=== PATIENT | female | born 1950 | race Hispanic/Latino ===

== ENCOUNTER 2018-05-06 21:05 | Inpatient (IN) | payer MEDICARE, OTHER ==
[2018-05-06] MEDS ORDERED: FENTANYL CITR 100 MCG/2 ML ONE (21:36)
[2018-05-06] MEDS ORDERED: ONDANSETRON 4 MG/2 ML VIAL ONE (21:36)
[2018-05-06] MEDS ORDERED: FAMOTIDINE 20 MG/2 ML VIAL IV ONE (21:36)
[2018-05-06 21:39] LABS: Absolute Lymphocytes (CBC) 3.8 K/uL (0.7-4.9); Absolute Monocytes 1.3 K/uL (0.1-1.3); Absolute Neutrophil 11.5 K/uL (1.8-8.0); Basophils % 0.6 % (0-1.3); Eosinophils % 1.9 % (0-4.4); Hematocrit 42.6 % (36.0-45.0); Lymphocytes % 22.5 % (15.3-44.8); MCH 35.8 pg (27.0-35.0); MCV 104.3 fL (80-100); MPV 8.8 fL (7.6-11.3); Monocytes % 7.3 % (3.3-12.3); RBC Red Blood Cell Count 4.08 M/uL (3.86-4.86)
[2018-05-06 21:45] LABS: Protime INR 1.02
[2018-05-06 22:01] LABS: ALT/SGPT 40 U/L (12-78); AST/SGOT 46 U/L (15-37); Albumin 3.4 g/dL (3.4-5.0); Alkaline Phosphatase 109 U/L (45-117); BUN Blood Urea Nitrogen 8 mg/dL (7-18); Bicarbonate 27 mmol/L (21-32); Bilirubin Direct 0.2 mg/dL (0-0.2); Bilirubin Total 0.6 mg/dL (0.2-1.0); CKMB Creatine Kinase MB < 1.0 ng/mL (0.3-3.6); Creatine Phosphokinase 20 U/L (26-192); Glucose Level 265 mg/dL (74-106); Lipase 94 U/L (73-393); Magnesium 2.1 mg/dL (1.8-2.4); NT PRO-BNP 57 pg/mL (<125); Potassium 3.9 mmol/L (3.5-5.1); Sodium Level 134 mmol/L (136-145)
[2018-05-06 22:17] LABS: Urine Blood TRACE (NEG); Urine Glucose 1+ (NEG); Urine Protein TRACE (NEG); Urine Specific Gravity >1.030 (1.005-1.030); Urine pH 5.5 (5.0-7.0)
[2018-05-06] MEDS ORDERED: CEFTRIAXONE/SWI 1gm 1 GM/10 ML SYR ONE (22:21)
--- NOTE | 2018-05-07 01:39 | EDPHYS ---
Physician Documentation [facility] Name: Ivet Calderon Age: 67 yrs Sex: Female : 1950 Arrival Date: 05/06/2018 Time: 21:09 Bed 23 Private MD: Jatinder Dallas E ED Physician Shankar Forbes HPI: 05/06 21:22 This 67 yrs old Female presents to ER via Ambulatory with complaints of demetri Abdominal Pain. 21:22 The patient presents with abdominal pain in the epigastric area, in the upper abdomen, demetri abdominal distention in the upper abdomen. Onset: The symptoms/episode began/occurred just prior to arrival. The symptoms radiate to the right flank. Associated signs and symptoms: none. The symptoms are described as sharp. Modifying factors: The symptoms are alleviated by nothing, the symptoms are aggravated by movement, touching the area. Severity of pain: At its worst the pain was moderate in the emergency department the pain is unchanged. The patient has not experienced similar symptoms in the past. Historical: - Allergies: 21:20 No Known Allergies; ak1 - Home Meds: 21:20 aspirin 81 mg Oral chew 1 tab once daily [Active]; Lopressor 50 mg Oral tab 1 tab once ak1 daily [Active]; metformin 500 mg Oral tab 1 tab 2 times per day [Active]; Plavix Oral [Active]; - PMHx: 21:20 Diabetes - NIDDM; Hypertension; ak1 - PSHx: 21:20 None; ak1 - Immunization history:: Adult Immunizations unknown. - Social history:: Smoking status: Patient/guardian denies using tobacco. - Ebola Screening: : No symptoms or risks identified at this time. - Family history:: not pertinent. ROS: 21:22 Constitutional: Negative for fever, chills, and weight loss, Eyes: Negative for injury, demetri pain, redness, and discharge, ENT: Negative for injury, pain, and discharge, Neck: Negative for injury, pain, and swelling, Cardiovascular: Negative for chest pain, palpitations, and edema, Respiratory: Negative for shortness of breath, cough, wheezing, and pleuritic chest pain, Back: Negative for injury and pain, : Negative for injury, bleeding, discharge, and swelling, MS/Extremity: Negative for injury and deformity, Skin: Negative for injury, rash, and discoloration, Neuro: Negative for headache, weakness, numbness, tingling, and seizure, Psych: Negative for depression, anxiety, suicide ideation, homicidal ideation, and hallucinations, Allergy/Immunology: Negative for hives, rash, and allergies, Endocrine: Negative for neck swelling, polydipsia, polyuria, polyphagia, and marked weight changes, Hematologic/Lymphatic: Negative for swollen nodes, abnormal bleeding, and unusual bruising. 21:22 Abdomen/GI: Positive for abdominal pain, nausea, of the epigastric area, posterior aspect of right lateral abdomen and right upper quadrant. Exam: 21:22 Constitutional: This is a well developed, well nourished patient who is awake, alert, demetri and in no acute distress. Head/Face: Normocephalic, atraumatic. Eyes: Pupils equal round and reactive to light, extra-ocular motions intact. Lids and lashes normal. Conjunctiva and sclera are non-icteric and not injected. Cornea within normal limits. Periorbital areas with no swelling, redness, or edema. ENT: Nares patent. No nasal discharge, no septal abnormalities noted. Tympanic membranes are normal and external auditory canals are clear. Oropharynx with no redness, swelling, or masses, exudates, or evidence of obstruction, uvula midline. Mucous membranes moist. Neck: Trachea midline, no thyromegaly or masses palpated, and no cervical lymphadenopathy. Supple, full range of motion without nuchal rigidity, or vertebral point tenderness. No Meningismus. Chest/axilla: Normal chest wall appearance and motion. Nontender with no deformity. No lesions are appreciated. Cardiovascular: Regular rate and rhythm with a normal S1 and S2. No gallops, murmurs, or rubs. Normal PMI, no JVD. No pulse deficits. Respiratory: Lungs have equal breath sounds bilaterally, clear to auscultation and percussion. No rales, rhonchi or wheezes noted. No increased work of breathing, no retractions or nasal flaring. Back: No spinal tenderness. No costovertebral tenderness. Full range of motion. Female : Normal external genitalia. Skin: Warm, dry with normal turgor. Normal color with no rashes, no lesions, and no evidence of cellulitis. MS/ Extremity: Pulses equal, no cyanosis. Neurovascular intact. Full, normal range of motion. Neuro: Awake and alert, GCS 15, oriented to person, place, time, and situation. Cranial nerves II-XII grossly intact. Motor strength 5/5 in all extremities. Sensory grossly intact. Cerebellar exam normal. Normal gait. Psych: Awake, alert, with orientation to person, place and time. Behavior, mood, and affect are within normal limits. 21:22 Abdomen/GI: Inspection: abdomen appears normal, Bowel sounds: normal, Palpation: moderate abdominal tenderness, in the epigastric area and right upper quadrant, Liver: no appreciated palpable abnormalities, Hernia: not appreciated. Vital Signs: 21:18 BP 168 / 101; Pulse 109; Resp 18; Pulse Ox 97% on R/A; Weight 75.3 kg (R); Height 5 ft. ak1 1 in. (154.94 cm) (R); Pain 10/10; 21:20 Temp 98.3(O); kr2 22:24 BP 158 / 70; Pulse 80; Resp 17; Pulse Ox 95% on R/A; kr2 22:43 BP 171 / 65; Pulse 79; Resp 22 S; Pulse Ox 92% on R/A; kr2 23:45 BP 169 / 76; Pulse 82; Resp 19; Pulse Ox 97% on 2 lpm NC; kr2 05/07 00:38 BP 148 / 67; Pulse 82; Resp 21; Pulse Ox 97% on 2 lpm NC; kr2 01:31 BP 116 / 96; Pulse 82; Resp 20; Pulse Ox 97% on R/A; rv 02:31 BP 164 / 69; Pulse 79; Resp 20; Pulse Ox 97% on R/A; rv 03:03 BP 132 / 61; Pulse 79; Resp 20; Pulse Ox 91% on R/A; rv 03:56 BP 127 / 56; Pulse 89; Resp 16 S; Temp 97.9(O); Pulse Ox 97% on R/A; Pain 10/10; bb 05/06 21:18 Body Mass Index 31.37 (75.30 kg, 154.94 cm) ak1 05/06 22:43 Placed on oxygen \T\ 2 LPM via NC, saturation increased to 96%, notified provider kr2 Jason Coma Score: 05/07 03:56 Eye Response: spontaneous(4). Verbal Response: oriented(5). Motor Response: obeys bb commands(6). Total: 15. MDM: 05/06 21:15 Patient medically screened. [facility] 21:25 Data reviewed: vital signs, nurses notes, lab test result(s), EKG, radiologic studies, [facility] CT scan, plain films. 05/07 01:33 Counseling: I had a detailed discussion with the patient and/or guardian regarding: the pm1 historical points, exam findings, and any diagnostic results supporting the discharge/admit diagnosis, lab results, radiology results, the need for further work-up and treatment in the hospital. 01:33 Refusal of service: The patient/guardian displays adequate decision making capability pm1 and despite a detailed discussion of alternatives, benefits, risks, and consequences refuses: Admission to the hospital for further work-up and treatment, Patient does not want to stay in the hospital because her pain is better and she has a 19 yo grandson that depends on her to drive him to and from work. She wants to go home and follow up with her doctor. 02:00 ED course: Patient went to the restroom and started having her epigastric and RUQ pain pm1 return. Patient with diarrhea bowel movement. Consistent with radiology report favoring enteritis. Patient would like to stay in the hospital now versus being discharged. 02:19 Data interpreted: Pulse oximetry: on room air is 97 %. Interpretation: normal. pm1 05/06 21:21 Order name: Basic Metabolic Panel; Complete Time: 22:11 [facility] 05/06 21:21 Order name: CBC with Diff; Complete Time: 21:45 [facility] 05/06 21:21 Order name: Ckmb; Complete Time: 22:11 [facility] 05/06 21:21 Order name: CPK; Complete Time: 22:11 [facility] 05/06 21:21 Order name: LFT's; Complete Time: 22:11 [facility] 05/06 21:21 Order name: Magnesium; Complete Time: 22:11 [facility] 05/06 21:21 Order name: NT PRO-BNP; Complete Time: 22:11 [facility] 05/06 21:21 Order name: PT-INR; Complete Time: 22:11 [facility] 05/06 21:21 Order name: Ptt, Activated; Complete Time: 22:11 [facility] 05/06 21:21 Order name: Troponin (emerg Dept Use Only); Complete Time: 22:11 [facility] 05/06 21:21 Order name: XRAY Chest (1 view) [facility] 05/06 21:21 Order name: Lipase; Complete Time: 22:11 [facility] 05/06 21:52 Order name: Urine Culture [facility] 05/06 21:54 Order name: Urine Dipstick--Ancillary (enter results); Complete Time: 22:18 tn 05/06 21:21 Order name: EKG; Complete Time: 21:22 [facility] 05/06 21:21 Order name: Cardiac monitoring; Complete Time: 21:54 [facility] 05/06 21:21 Order name: EKG - Nurse/Tech; Complete Time: 22:05 [facility] 05/06 21:21 Order name: US Abdomen Limited [facility] 05/06 21:21 Order name: CT Abd/Pelvis - W/Contrast [facility] 05/06 21:21 Order name: IV Saline Lock; Complete Time: 21:54 [facility] 05/06 21:21 Order name: Labs collected and sent; Complete Time: 21:54 [facility] 05/06 21:21 Order name: O2 Per Protocol; Complete Time: 21:54 [facility] 05/06 21:21 Order name: O2 Sat Monitoring; Complete Time: 21:54 [facility] 05/06 21:21 Order name: Urine Dipstick-Ancillary (obtain specimen); Complete Time: 21:54 [facility] 05/07 02:24 Order name: NPO; Complete Time: 02:26 pm1 Administered Medications: 05/06 21:44 Drug: Pepcid 20 mg Route: IVP; Site: right antecubital; kr2 22:39 Follow up: Response: No adverse reaction kr2 21:45 Drug: Zofran 4 mg Route: IVP; Site: right antecubital; kr2 22:39 Follow up: Response: No adverse reaction kr2 21:47 Drug: fentaNYL (PF) 25 mcg Route: IVP; Site: right antecubital; kr2 22:06 Follow up: Response: No adverse reaction; Pain is unchanged, physician notified kr2 22:05 Drug: fentaNYL (PF) 25 mcg Route: IVP; Site: right antecubital; kr2 22:39 Follow up: Response: No adverse reaction; Pain is decreased kr2 22:22 Drug: Rocephin - (cefTRIAXone) 1 grams Route: IVPB; Infused Over: 30 mins; Site: right kr2 antecubital; 22:46 Follow up: Response: No adverse reaction; IV Status: Completed infusion kr2 22:47 Drug: fentaNYL (PF) 25 mcg Route: IVP; Site: right antecubital; kr2 23:00 Follow up: Response: No adverse reaction; Pain is decreased kr2 05/07 02:30 Follow up: Response: No adverse reaction; Pain is decreased rv 01:54 Drug: NS 0.9% 1000 ml Route: IV; Rate: 1 bolus; Site: right antecubital; rv 02:30 Follow up: IV Status: Completed infusion rv 02:05 Drug: fentaNYL (PF) 25 mcg Route: IVP; Site: right antecubital; rv 02:16 Follow up: Response: No adverse reaction rv 02:19 Drug: Zofran 4 mg Route: IVP; Site: right antecubital; rv 02:30 Follow up: Response: No adverse reaction rv 02:20 CANCELLED (Duplicate Order): Zofran 4 mg IVP once; over 2 minutes rv 02:30 Drug: Flagyl 500 mg Volume: 100 ml; Route: IVPB; Rate: 200 ml/hr; Infused Over: 30 rv mins; Site: right antecubital; 03:00 Follow up: IV Status: Completed infusion; IV Intake: 100ml bb Disposition: 07:01 Co-signature as Attending Physician, Shankar Forbes MD I agree with the assessment and demetri plan of care. Disposition: 05/07/18 02:22 Hospitalization ordered by Jesus Simeon for Observation. Preliminary diagnosis are Cholelithiasis, Other abdominal pain - intractable, Enteritis. - Bed requested for Telemetry/MedSurg (observation). - Status is Observation. bb - Condition is Stable. - Problem is new. - Symptoms have improved. UTI on Admission? No Signatures: Dispatcher [employer] EDOK Anabela Felipe RN RN mw Anderson, Corey, MD MD cha Ballard, Brenda, RN RN bb Roselyn Delarosa RN RN ak1 Roderick Brady, CONTINUOUS IMPROVEMENT CONSULTANT CONTINUOUS IMPROVEMENT CONSULTANT pm1 Hyun Mcclain RN RN kr2 Ruiz Stockton RN RN rv Corrections: (The following items were deleted from the chart) 02:01 01:38 05/07/2018 01:38 Discharged to Home. Impression: Cholelithiasis; Enteritis; pm1 Urinary tract infection, site not specified. Condition is Stable. Forms are Medication Reconciliation Form, Thank You Letter, Antibiotic Education, Prescription Opioid Use. Follow up: Emergency Department; When: As needed; Reason: Worsening of condition. Follow up: Peter Gay; When: 1 - 2 days; Reason: Recheck today's complaints, Continuance of care, Re-evaluation by your physician. Follow up: Saúl Arroyo; When: 1 - 2 days; Reason: Recheck today's complaints, Continuance of care, Re-evaluation by your physician. Problem is new. Symptoms have improved. pm1 02:20 02:19 Zofran 4 mg IVP once; over 2 minutes ordered. pm1 rv 02:35 02:22 Hospitalization Ordered by Jesus Simeon MD for Observation. Preliminary mw diagnosis is Cholelithiasis; Other abdominal pain - intractable; Enteritis. Bed requested for Telemetry/MedSurg (observation). Status is Observation. Condition is Stable. Problem is new. Symptoms have improved. UTI on Admission? No. pm1 04:31 02:35 05/07/2018 02:22 Hospitalization Ordered by Jesus Simeon MD for Observation. bb Preliminary diagnosis is Cholelithiasis; Other abdominal pain - intractable; Enteritis. Bed requested for Telemetry/MedSurg (observation). Status is Observation. Condition is Stable. Problem is new. Symptoms have improved. UTI on Admission? No. mw
--- NOTE | 2018-05-07 01:39 | ER ---
Nurse's Notes [facility] Name: Ivet Calderon Age: 67 yrs Sex: Female : 1950 Arrival Date: 05/06/2018 Time: 21:09 Bed 23 Private MD: Jatinder Dallas E Diagnosis: Cholelithiasis;Other abdominal pain-intractable;Enteritis Presentation: 05/06 21:18 Presenting complaint: Patient states: sharp pain to upper abd started at 1800. pt c/o ak1 back pain. Transition of care: patient was not received from another setting of care. Onset of symptoms was May 06, 2018. Risk Assessment: Do you want to hurt yourself or someone else? Patient reports no desire to harm self or others. Care prior to arrival: None. 21:18 Method Of Arrival: Ambulatory ak1 21:18 Acuity: DORYS 3 ak1 21:20 Initial Sepsis Screen: Does the patient meet any 2 criteria? No. Patient's initial kr2 sepsis screen is negative. Does the patient have a suspected source of infection? No. Patient's initial sepsis screen is negative. Triage Assessment: 21:20 General: Appears uncomfortable, Behavior is cooperative, crying. Pain: Complains of ak1 pain in right upper quadrant and left upper quadrant. Historical: - Allergies: 21:20 No Known Allergies; ak1 - Home Meds: 21:20 aspirin 81 mg Oral chew 1 tab once daily [Active]; Lopressor 50 mg Oral tab 1 tab once ak1 daily [Active]; metformin 500 mg Oral tab 1 tab 2 times per day [Active]; Plavix Oral [Active]; - PMHx: 21:20 Diabetes - NIDDM; Hypertension; ak1 - PSHx: 21:20 None; ak1 - Immunization history:: Adult Immunizations unknown. - Social history:: Smoking status: Patient/guardian denies using tobacco. - Ebola Screening: : No symptoms or risks identified at this time. - Family history:: not pertinent. Screenin:20 Abuse screen: Denies threats or abuse. Denies injuries from another. Nutritional kr2 screening: No deficits noted. Tuberculosis screening: No symptoms or risk factors identified. Fall Risk IV access (20 points). Assessment: 21:20 General: Appears distressed, uncomfortable, well groomed, well developed, well kr2 nourished, Behavior is anxious, crying. Pain: Complains of pain in right upper quadrant Pain radiates to posterior aspect of right lateral abdomen and anterior aspect of right lateral abdomen Pain currently is 10 out of 10 on a pain scale. Quality of pain is described as sharp, shooting, Pain began 4 hours ago. Is continuous, Alleviated by nothing. Neuro: Level of Consciousness is awake, alert, obeys commands, Oriented to person, place, time, situation, Appropriate for age. Cardiovascular: Capillary refill < 3 seconds in bilateral fingers Patient's skin is warm and dry. Respiratory: Airway is patent Respiratory effort is even, unlabored, Respiratory pattern is regular, symmetrical. GI: Patient currently denies diarrhea, vomiting. GI: Abdomen is round non-distended, Bowel sounds present X 4 quads. Abd is soft X 4 quads Abdomen is tender to palpation in epigastric area and right upper quadrant. : Denies burning with urination. EENT: Oral mucosa is moist. Derm: Skin is intact, is healthy with good turgor, Skin is pink, warm \\T\\ dry. Musculoskeletal: Circulation, motion, and sensation intact. 22:22 Reassessment: Patient appears in no apparent distress at this time. Patient and/or kr2 family updated on plan of care and expected duration. Pain level reassessed. Patient states pain has decreased. States, "I am a big believer in horoscopes and mine said that this was going to fall ill and that it would have something to do with my kidneys". 23:45 Reassessment: Patient appears in no apparent distress at this time. Patient and/or kr2 family updated on plan of care and expected duration. Pain level reassessed. Patient is alert, oriented x 3, equal unlabored respirations, skin warm/dry/pink. Patient returned from CT at this time Patient states symptoms have improved. 05/07 00:38 Reassessment: Patient appears in no apparent distress at this time. Patient sleeping at kr2 this time. 02:33 Reassessment: Patient appears in no apparent distress at this time. Patient and/or rv family updated on plan of care and expected duration. Pain level reassessed. Patient is alert, oriented x 3, equal unlabored respirations, skin warm/dry/pink. awaiting admitting orders from dr Soria. 03:54 Reassessment: pt appears to be sleeping, eyes closed, resp unlabored, arouses easily bb and is A\\T\\O x 4, pt c/o upper abdominal pain will notify provider, pt awaiting admit orders for transfer to room 219. IV intact and patent. Vital Signs: 05/06 21:18 BP 168 / 101; Pulse 109; Resp 18; Pulse Ox 97% on R/A; Weight 75.3 kg (R); Height 5 ft. ak1 1 in. (154.94 cm) (R); Pain 10/10; 21:20 Temp 98.3(O); kr2 22:24 BP 158 / 70; Pulse 80; Resp 17; Pulse Ox 95% on R/A; kr2 22:43 BP 171 / 65; Pulse 79; Resp 22 S; Pulse Ox 92% on R/A; kr2 23:45 BP 169 / 76; Pulse 82; Resp 19; Pulse Ox 97% on 2 lpm NC; kr2 05/07 00:38 BP 148 / 67; Pulse 82; Resp 21; Pulse Ox 97% on 2 lpm NC; kr2 01:31 BP 116 / 96; Pulse 82; Resp 20; Pulse Ox 97% on R/A; rv 02:31 BP 164 / 69; Pulse 79; Resp 20; Pulse Ox 97% on R/A; rv 03:03 BP 132 / 61; Pulse 79; Resp 20; Pulse Ox 91% on R/A; rv 03:56 BP 127 / 56; Pulse 89; Resp 16 S; Temp 97.9(O); Pulse Ox 97% on R/A; Pain 10/10; bb 05/06 21:18 Body Mass Index 31.37 (75.30 kg, 154.94 cm) ak1 05/06 22:43 Placed on oxygen \\T\\ 2 LPM via NC, saturation increased to 96%, notified provider kr2 Vitals: 23:00 Cardiac Rhythm Assessment Sinus rhythm. kr2 05/07 00:44 Cardiac Rhythm Assessment Sinus rhythm. kr2 Jason Coma Score: 03:56 Eye Response: spontaneous(4). Verbal Response: oriented(5). Motor Response: obeys bb commands(6). Total: 15. ED Course: 05/06 21:09 Patient arrived in ED. es 21:09 Jatinder Dallas MD is Private Physician. es 21:15 Shankar Forbes MD is Attending Physician. demetri 21:19 Triage completed. ak1 21:20 Arm band placed on Patient placed in an exam room, on a stretcher, on pulse oximetry, ak1 Patient notified of wait time. 21:20 Patient has correct armband on for positive identification. Placed in gown. Bed in low kr2 position. Call light in reach. Side rails up X2. proced tech on. Pulse ox on. NIBP on. Door closed. Warm blanket given. Head of bed elevated. 21:25 Inserted saline lock: 20 gauge in right antecubital area, using aseptic technique. kr2 Blood collected. 21:29 Hyun Mcclain, JOSE is Primary Nurse. kr2 21:40 X-ray completed. Portable x-ray completed in exam room. Patient tolerated procedure ag1 well. 21:41 XRAY Chest (1 view) In Process Unspecified. EDMS 21:45 Urine collected: clean catch specimen, roselyn colored. kr2 21:54 US Abdomen Limited In Process Unspecified. EDMS 22:03 EKG done, by ED staff, reviewed by Shankar Forbes MD. kr2 22:15 Roderick Brady, JESSIE is PHCP. pm1 23:[address] via stretcher. eh 23:38 CT completed. Patient tolerated procedure well. Patient moved back from CT. eh 23:38 CT Abd/Pelvis - W/Contrast In Process Unspecified. EDMS 05/07 01:36 Peter Gay MD is Referral Physician. pm1 01:36 Saúl Arroyo MD is Referral Physician. pm1 02:19 Shankar Forbes MD is Hospitalizing Provider. pm1 02:20 Jesus Simeon MD is Hospitalizing Provider. pm1 03:56 No provider procedures requiring assistance completed. Patient admitted, IV remains in bb place. Administered Medications: 05/06 21:44 Drug: Pepcid 20 mg Route: IVP; Site: right antecubital; kr2 22:39 Follow up: Response: No adverse reaction kr2 21:45 Drug: Zofran 4 mg Route: IVP; Site: right antecubital; kr2 22:39 Follow up: Response: No adverse reaction kr2 21:47 Drug: fentaNYL (PF) 25 mcg Route: IVP; Site: right antecubital; kr2 22:06 Follow up: Response: No adverse reaction; Pain is unchanged, physician notified kr2 22:05 Drug: fentaNYL (PF) 25 mcg Route: IVP; Site: right antecubital; kr2 22:39 Follow up: Response: No adverse reaction; Pain is decreased kr2 22:22 Drug: Rocephin - (cefTRIAXone) 1 grams Route: IVPB; Infused Over: 30 mins; Site: right kr2 antecubital; 22:46 Follow up: Response: No adverse reaction; IV Status: Completed infusion kr2 22:47 Drug: fentaNYL (PF) 25 mcg Route: IVP; Site: right antecubital; kr2 23:00 Follow up: Response: No adverse reaction; Pain is decreased kr2 05/07 02:30 Follow up: Response: No adverse reaction; Pain is decreased rv 01:54 Drug: NS 0.9% 1000 ml Route: IV; Rate: 1 bolus; Site: right antecubital; rv 02:30 Follow up: IV Status: Completed infusion rv 02:05 Drug: fentaNYL (PF) 25 mcg Route: IVP; Site: right antecubital; rv 02:16 Follow up: Response: No adverse reaction rv 02:19 Drug: Zofran 4 mg Route: IVP; Site: right antecubital; rv 02:30 Follow up: Response: No adverse reaction rv 02:20 CANCELLED (Duplicate Order): Zofran 4 mg IVP once; over 2 minutes rv 02:30 Drug: Flagyl 500 mg Volume: 100 ml; Route: IVPB; Rate: 200 ml/hr; Infused Over: 30 rv mins; Site: right antecubital; 03:00 Follow up: IV Status: Completed infusion; IV Intake: 100ml bb Intake: 03:00 IV: 100ml; Total: 100ml. bb Outcome: 01:38 Discharge ordered by MD. pm1 02:22 Decision to Hospitalize by Provider. pm1 03:57 Condition: stable bb 03:57 Instructed on the need for admit. 04:31 Patient left the ED. bb Signatures: Dispatcher [employer] Shankar Marin MD MD cha Salyer, Edna es Hagler, Ervin eh Ballard, Brenda, RN RN Roselyn Bermudez RN RN [email or web address] Carly [email or web address] Roderick Brady JESSIE RACK PULLER pm1 Hyun Mcclain, RN RN kr2 Ruiz Stockton, RN RN rv Corrections: (The following items were deleted from the chart) 05/06 22: 21:20 Pain: Complains of pain in right upper quadrant Pain radiates to posterior aspect kr2 of right lateral abdomen and anterior aspect of right lateral abdomen kr2 : 21:20 GI: Abdomen is round non-distended, Bowel sounds present X 4 quads. Abd is soft X kr2 4 quads Abdomen is tender to palpation in epigastric area and right upper quadrant kr2
[2018-05-07] MEDS ORDERED: NA CHLORIDE 0.9% 1,000 ML ONE (01:53)
[2018-05-07] MEDS ORDERED: FENTANYL CITR 100 MCG/2 ML ONE (02:07)
[2018-05-07] MEDS ORDERED: ONDANSETRON 4 MG/2 ML VIAL ONE (02:21)
[2018-05-07] MEDS ORDERED: METRONIDAZOLE 500mg IVPB 500 MG/100 ML BAG IV ONE (02:31)
--- NOTE | 2018-05-07 03:52 | P.HP ---
Certification for Inpatient Patient admitted to: Inpatient With expected LOS: >2 Midnights Practitioner: I am a practitioner with admitting privileges, knowledge of patient current condition, hospital course, and medical plan of care. Services: Services provided to patient in accordance with Admission requirements found in Title 42 Section 412.3 of the Code of Federal Regulations Patient History Date of Service: 05/07/18 Reason for admission: enteritis History of Present Illness: Ms Calderon is a 67 years old woman with history of HTN, DM II, who came to ED complaining of abdominal pain. Her pain started last afternoon, 10/10 of intensity, diffuse, but localized over LLQ at my physical exam, however, previously she was focus her pain in her epigastrium and RUQ. She has had nausea but not vomiting, also diarrhea. No fever or chills. Lab work remarkable for leukocytosis 17K, UA abnormal consistent with UTI. CT abd/pelvis report enteritis, and cholelitiasis. Allergies No Known Drug Allergies Allergy (Verified 10/26/16 11:28) Unknown No Known Allergies Allergy (Uncoded 12/15/16 12:01) Unknown Home medications list reviewed: Yes Home Medications: Lisinopril 1 tab PO BID 08/21/16 Metformin ER [Glucophage ER*] 1 tab PO BID 08/21/16 Tizanidine HCl 2 mg PO BID PRN 08/21/16 Aspirin [Adult Low Dose Aspirin EC] 81 mg PO DAILY 09/29/16 Metoprolol Tartrate [Lopressor*] 50 mg PO DAILY 09/29/16 Atorvastatin Calcium [Lipitor] 40 mg PO BEDTIME #30 tab 10/03/16 Clopidogrel Bisulfate [Plavix*] 75 mg PO DAILY #30 tablet 10/03/16 - Past Medical/Surgical History Diabetic: Yes -: HTN -: DIABETES -: Tubal Ligation - Family History Family History: Reviewed- Non-Contributory - Social History Smoking Status: Never smoker Alcohol use: No CD- Drugs: No Caffeine use: No Place of Residence: Home Review of Systems 10-point ROS is otherwise unremarkable Physical Examination - Physical Exam General: Alert, In no apparent distress HEENT: Atraumatic, PERRLA, Mucous membr. moist/pink, EOMI, Sclerae nonicteric Neck: Supple, 2+ carotid pulse no bruit, No LAD, Without JVD or thyroid abnormality Respiratory: Clear to auscultation bilaterally, Normal air movement Cardiovascular: Regular rate/rhythm, Normal S1 S2 Gastrointestinal: Normal bowel sounds, Tenderness (left lower quadrant) Musculoskeletal: No tenderness Integumentary: No rashes Neurological: Normal speech, Normal strength at 5/5 x4 extr, Normal tone, Normal affect Lymphatics: No axilla or inguinal lymphadenopathy - Studies Laboratory Data (last 24 hrs) 05/06/18 21:25: PT 12.0, INR 1.02, APTT 26.2 05/06/18 21:25: WBC 17.0 H, Hgb 14.6, Hct 42.6, Plt Count 284 05/06/18 21:25: Sodium 134 L, Potassium 3.9, BUN 8, Creatinine 0.90, Glucose 265 H, Magnesium 2.1, Total Bilirubin 0.6, AST 46 H, ALT 40, Alkaline Phosphatase 109, Lipase 94 Assessment and Plan - Problems (Diagnosis) (1) Enteritis Current Visit: Yes Status: Acute (2) Abdominal pain Onset Date: 02/25/15 Current Visit: No Status: Acute Qualifiers: Abdominal location: generalized Qualified Code(s): R10.84 - Generalized abdominal pain (3) Cholelithiasis Onset Date: 02/25/15 Current Visit: No Status: Acute Qualifiers: Cholelithiasis location: gallbladder Cholecystitis presence: without cholecystitis Biliary obstruction: without biliary obstruction Qualified Code(s): K80.20 - Calculus of gallbladder without cholecystitis without obstruction (4) Diabetes mellitus Onset Date: 10/01/16 Current Visit: No Status: Acute Qualifiers: Diabetes mellitus type: type 2 Diabetes mellitus adjunct faculty for medical 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 She has also cholelithiasis, but no signs of obstruction. UA is abnormal consistent with UTI, will start empiric IV Cipro and Flagyl. Urine and blood culture in process. - Advance Directives Does patient have a Living Will: No Does patient have a Durable POA for Healthcare: No - Code Status/Comfort Care Code Status Assessed: Yes Code Status: Full Code
[2018-05-07] MEDS ORDERED: ONDANSETRON 4 MG/2 ML VIAL IV PRN (04:02)
[2018-05-07] MEDS: NA CHLORIDE 0.9% 1,000 ML IV SCH ×2 (04:25→14:31)
[2018-05-07 05:04] VITALS: BMI 31.4
[2018-05-07] MEDS ORDERED: PNEUMOCOCCAL VACCINE 0.5 ML IMVAC ONE (06:00)
[2018-05-07] MEDS ORDERED: D50W 25 GM/50 ML SYRINGE IV PRN (06:13)
[2018-05-07] MEDS ORDERED: GLUCAGON 1 MG/VIAL IM PRN (06:13)
[2018-05-07] MEDS: INSULIN -REGULAR HUMAN 50 UNIT/0.5 ML ML SQ SCH ×3 (06:27→18:00)
--- NOTE | 2018-05-07 07:16 | RAD REPORT ---
EXAM DESCRIPTION: RAD - Chest Single View - 05/06/2018 9:43 pm CLINICAL HISTORY: Back pain, upper abdominal pain, abdominal distention COMPARISON: October 2017 TECHNIQUE: AP portable chest image was obtained 2134 hours . FINDINGS: Low lung volumes accentuate heart, vasculature and lung markings. No focal lung parenchyma l process seen. No significant failure or volume overload. Trachea is midline. Heart and vasculature are normal. No measurable pleural effusion and no pneumotho rax. No gross bony abnormality seen. No acute aortic findings suspected. IMPRESSION: No acute cardiopulmonary process. Low lung volumes accentuate lung markings. Minimal interstitial edema or infiltrate could be masked.
--- NOTE | 2018-05-07 07:17 | RAD REPORT ---
EXAM DESCRIPTION: US - Abdomen Exam Limited - 05/06/2018 9:56 pm CLINICAL HISTORY: Abdominal pain COMPARISON: None. FINDINGS: Gallbladder size is normal. No gallstones, wall thickening or pericholecystic fluid. Commo n bile duct is normal with no common duct stone identified. The liver and spleen show no suspicious f indings. The pancreas is normal. No hydronephrosis or suspicious mass in either kidney Aorta is normal is size. No ascites or bulky lymphadenopathy. IMPRESSION: Normal abdominal ultrasound.
[2018-05-07] MEDS: METRONIDAZOLE 500mg IVPB 500 MG/100 ML BAG IV SCH ×2 (08:39→16:42)
[2018-05-07] MEDS: CIPROFLOXACIN 400mg IV 400 MG/200 ML BAG IV SCH ×2 (08:40→20:37)
--- NOTE | 2018-05-07 08:53 | RAD REPORT ---
EXAM DESCRIPTION: CT - Abdomen Pelvis W Contrast - 05/07/2018 2:42 am CLINICAL HISTORY: Abdominal pain, periumbilical pain, prior cholecystectomy. A preliminary written report was provided at the time of the study, and the report was reviewed prio r to final dictation. COMPARISON: CT study February 2015 TECHNIQUE: Biphasic, helical CT imaging of the abdomen and pelvis was performed following 100 ml non -ionic IV contrast. Oral contrast was given. All CT scans are performed using dose optimization technique as appropriate and may include automated exposure control or mA/KV adjustment according to patient size. FINDINGS: No suspicious findings in the lung bases. No pericardial thickening or effusion. Liver shows a mild diffuse fatty infiltration pattern. A small cyst is present subcapsular right lobe . This is not clearly different from 2014. No splenic or pancreatic acute finding. Gallbladder is par tially contracted. There are probably small gallstones near the neck. Gallstones have been seen on th is patient. Acute gallbladder process is doubtful. No biliary tree dilatation. Symmetric renal function is seen with no hydronephrosis or suspicious renal mass. No pyelonephritis o r acute renal parenchymal process. Partially filled urinary bladder shows no suspicious finding. Uter us and ovaries show no suspicious findings. Pelvic floor laxity is present. No gastric dilatation or gastric wall thickening. Duodenum and proximal jejunum show no suspicious fi ndings. Distal ileum is decompressed. Most of the ileum in the right lower quadrant is mildly dilated . There is a significant amount of fecalized small bowel content. A definitive mass or transition poi nt is not identified. There is some wall thickening in the midportion of the small bowel. No free air or pneumatosis. Small quantity of free fluid is present. No hernia, mass or bulky lympha denopathy. No adrenal abnormality. No suspicious bony findings. IMPRESSION: Dilated small bowel loops in the right lower quadrant with fecalized bowel content. Ther e is wall thickening in the proximal to midportion of the ileum. Distal ileum is decompressed. No free air, abscess or surgically emergent finding. Early mechanical small bowel obstruction is not excluded. However, the patient does not have any surg ical history that might trigger adhesions or internal hernia. A prominent infectious enteritis causin g small bowel dilatation is possible. Incidental cholelithiasis. Gallbladder is not absent as indicated in the history. No acute biliary tr ee dilatation or acute pancreatic process.
[2018-05-07] MEDS ORDERED: KCL 20 MEQ/100 mL IVPB 20 MEQ/100 ML BAG IV SCH (09:00)
--- NOTE | 2018-05-07 10:29 | EKG ---
Test Date: 2018-05-06 Test Time: 21:56:46 Forestry Consultant: MALA MEASUREMENT RESULTS: Intervals: Rate: 86 VA: 144 QRSD: 78 QT: 380 QTc: 454 [place]: P: 51 VA: 144 QRS: 62 T: 48 INTERPRETIVE STATEMENTS: Sinus rhythm with occasional premature ventricular complexes Otherwise normal ECG Compared to ECG 09/30/2016 06:21:56 Ventricular premature complex(es) now present Electronically Signed On 05-07-18 10:28:07 CDT by Eric Kingston
--- NOTE | 2018-05-07 12:19 | P.PN ---
Subjective Date of Service: 05/07/18 Chief Complaint: enteritis diffuse abd pain more on left side, states that her abd was bloating before she came Physical Examination - Vital Signs Temperature: 97.9 F Blood Pressure: 134/64 Pulse: 71 Respirations: 18 Pulse Ox (%): 95 - Physical Exam General: Alert, In no apparent distress HEENT: Atraumatic, PERRLA, EOMI Neck: Supple, JVD not distended Respiratory: Clear to auscultation bilaterally, Normal air movement Cardiovascular: Regular rate/rhythm, Normal S1 S2 Gastrointestinal: Tenderness (diffusely) Musculoskeletal: No tenderness Integumentary: No rashes Neurological: Normal speech, Normal tone, Normal affect Lymphatics: No axilla or inguinal lymphadenopathy - Studies Laboratory Data (last 24 hrs) 05/06/18 21:25: PT 12.0, INR 1.02, APTT 26.2 05/06/18 21:25: WBC 17.0 H, Hgb 14.6, Hct 42.6, Plt Count 284 05/06/18 21:25: Sodium 134 L, Potassium 3.9, BUN 8, Creatinine 0.90, Glucose 265 H, Magnesium 2.1, Total Bilirubin 0.6, AST 46 H, ALT 40, Alkaline Phosphatase 109, Lipase 94 Medications List Reviewed: Yes Assessment And Plan - Current Problems (Diagnosis) (1) Small bowel obstruction Onset Date: 02/28/15 Current Visit: Yes Status: Acute (2) Enteritis Onset Date: 05/07/18 Current Visit: Yes Status: Acute (3) Abdominal pain Onset Date: 05/07/18 Current Visit: Yes Status: Acute Qualifiers: Abdominal location: generalized Qualified Code(s): R10.84 - Generalized abdominal pain (4) Cholelithiasis Onset Date: 05/07/18 Current Visit: Yes Status: Chronic Qualifiers: Cholelithiasis location: gallbladder Cholecystitis presence: without cholecystitis Biliary obstruction: without biliary obstruction Qualified Code(s): K80.20 - Calculus of gallbladder without cholecystitis without obstruction (5) Diabetes mellitus Onset Date: 10/01/16 Current Visit: No Status: Acute Qualifiers: Diabetes mellitus type: type 2 Diabetes mellitus residential insulin use: without keno terminal operator use Diabetes mellitus complication status: with unspecified complications Qualified Code(s): E11.8 - Type 2 diabetes mellitus with unspecified complications (6) Hypertension Onset Date: 10/01/16 Current Visit: No Status: Acute Qualifiers: Hypertension type: essential hypertension Qualified Code(s): I10 - Essential (primary) hypertension - Plan --Cont IVF --NPO --Cont IV ABX --Cons Surgery RE: possible SBO
[2018-05-07] MEDS ORDERED: MORPHINE 4 MG/ML SYR IV PRN (13:04)
[2018-05-07] MEDS: ACETAMINOPHEN 500 MG TAB PO PRN (15:25)
--- NOTE | 2018-05-07 15:51 | CON ---
Date of Consultation: 05/07/2018 Diagnosis: Abdominal pain. History Of Present Illness: This is the case of a female, who has been having abdominal pain since a bout 48 hours of duration mainly in the mid abdomen, associated with nausea and vomiting. This happe akshat after she ate some corn. She says she has been having this pain on and off. Her dad used to hav e pain on and off and was in the hospital with abdominal pain and what he had. She denies any dysuria, hematuria, hematochezia, or melena. Denies any recent traveling out of the country. D enies any family member sick at home. The patient was advised the importance of colonoscopies and alex brasher does remember having one done. Allergies: NONE. Medications: Include lisinopril, metformin, aspirin, metoprolol, Plavix and Lipitor. Past Medical History: Includes diabetes and hypertension. Past Surgical History: Include tubal ligation. Social History: She does not smoke. She does not drink alcohol. Review of Systems: Constitutional: Denies any fever. Respiratory: Denies any shortness of breath. Gastrointestinal: As above. The patient denies any melena and hematochezia, any history of Crohn di sease, ulcer, or colitis. Once again, she was advised about colonoscopy. Genitourinary: Denies any dysuria, hematuria. Physical Examination: General: The patient is awake, alert. HEENT: Pupils are equal and reactive, anicteric. Neck: Supple. Chest: Clear. Abdomen: Mid abdominal tenderness. She says she felt a lot better this morning after she had some b owel movement and diarrhea and then she has been like that better for 4 hours and now starting to hav e some discomfort. She is passing flatus. Extremities: Good capillary refill. Rectal: Deferred. Laboratory Data: Blood work shows WBC count of 17 with hemoglobin of 14.6, platelets of 284, INR of 1.02, glucose 265. Abdominal ultrasound per Dr. Carson, normal with no stone or thickening or peric holecystic fluid. Imaging: CAT scan of abdomen and pelvis interpreted by Dr. Carson as enteritis versus early bowel o bstruction versus and inflammatory bowel disease cannot be ruled out. Assessment: This is a 67-year-old patient, with enteritis of unknown origin. She has a family histo ry of chronic abdominal pain, intestinal disease diagnosed. She is not sure if they have inflammator y bowel disease or not. From the surgical standpoint it looked like she is starting to pass and have bowel movement and passing gas. So this may be just relieving. The etiology of it at this moment i s unknown. We suggest patient to have a hazardous waste material technician consult. MAC Voice ID: [id number] Report ID: [id number]
[2018-05-08] MEDS: METRONIDAZOLE 500mg IVPB 500 MG/100 ML BAG IV SCH ×3 (01:06→18:13)
[2018-05-08] MEDS: NA CHLORIDE 0.9% 1,000 ML IV SCH ×4 (01:06→20:02)
[2018-05-08] MEDS: ACETAMINOPHEN 500 MG TAB PO PRN (04:30)
[2018-05-08 05:19] LABS: Absolute Lymphocytes (CBC) 2.6 K/uL (0.7-4.9); Absolute Monocytes 0.7 K/uL (0.1-1.3); Absolute Neutrophil 4.2 K/uL (1.8-8.0); Basophils % 0.4 % (0-1.3); Eosinophils % 7.3 % (0-4.4); Hematocrit 37.7 % (36.0-45.0); Lymphocytes % 32.3 % (15.3-44.8); MCH 36.1 pg (27.0-35.0); MCV 106.1 fL (80-100); MPV 8.9 fL (7.6-11.3); RBC Red Blood Cell Count 3.55 M/uL (3.86-4.86)
[2018-05-08] MEDS: INSULIN -REGULAR HUMAN 50 UNIT/0.5 ML ML SQ SCH ×4 (05:50→18:00)
[2018-05-08 05:53] LABS: BUN Blood Urea Nitrogen 5 mg/dL (7-18); Bicarbonate 26 mmol/L (21-32); Glucose Level 190 mg/dL (74-106); Potassium 3.9 mmol/L (3.5-5.1); Sodium Level 143 mmol/L (136-145)
[2018-05-08 06:20] LABS: Blood Morphology Comment NOTED (NOT SEEN); Macrocytosis 1+; Platelet Estimate ADEQ; Urine White Blood Cell Casts OK
[2018-05-08] MEDS ORDERED: KCL 20 MEQ/100 mL IVPB 20 MEQ/100 ML BAG IV SCH (07:00)
[2018-05-08] MEDS: CIPROFLOXACIN 400mg IV 400 MG/200 ML BAG IV SCH ×2 (09:08→20:19)
--- NOTE | 2018-05-08 12:25 | P.PN ---
Subjective Date of Service: 05/08/18 Chief Complaint: enteritis Patient seen and examined at bedside with RN. Case discussed with GI. Case also discussed with general surgery this time. Patient complains of having abdominal pain this morning after having a pudding. No nausea or vomiting noted. No other complaints to offer overnight. Review of Systems General: As per HPI Physical Examination - Vital Signs Temperature: 97.3 F Blood Pressure: 118/58 Pulse: 64 Respirations: 12 Pulse Ox (%): 96 - Physical Exam General: Alert, In no apparent distress, Oriented x3 HEENT: Atraumatic, PERRLA, EOMI Neck: Supple, JVD not distended Respiratory: Clear to auscultation bilaterally, Normal air movement Cardiovascular: Regular rate/rhythm, Normal S1 S2 Gastrointestinal: Normal bowel sounds, Soft and benign, Distended, Tenderness Musculoskeletal: No tenderness Integumentary: No rashes Neurological: Normal speech, Normal tone, Normal affect Lymphatics: No axilla or inguinal lymphadenopathy - Studies Medications List Reviewed: Yes Assessment & Plan - Problems (Diagnosis) (1) Abdominal pain Onset Date: 05/07/18 Current Visit: Yes Status: Acute Plan: Patient still complaining of having some abdominal pain generalized after having a meal. -abdominal CT with enteritis. -currently on IV antibiotics -general surgery consulted for possible SBO. General Surgery ruled out SBO and recommends GI consult -GI consulted at this time -patient will be switched back to NPO at this time -will continue to monitor closely Qualifiers: Abdominal location: generalized Qualified Code(s): R10.84 - Generalized abdominal pain (2) Enteritis Onset Date: 05/07/18 Current Visit: Yes Status: Acute Plan: Patient to continue on IV ciprofloxacin and metronidazole. -GI consulted awaiting recommendations at this time -concern for Crohn's disease. (3) Cholelithiasis Onset Date: 05/07/18 Current Visit: Yes Status: Chronic Qualifiers: Cholelithiasis location: gallbladder Cholecystitis presence: without cholecystitis Biliary obstruction: without biliary obstruction Qualified Code(s): K80.20 - Calculus of gallbladder without cholecystitis without obstruction (4) Diabetes mellitus Onset Date: 10/01/16 Current Visit: No Status: Chronic Qualifiers: Diabetes mellitus type: type 2 Diabetes mellitus termination clerk insulin use: without termination clerk use Diabetes mellitus complication status: with unspecified complications Qualified Code(s): E11.8 - Type 2 diabetes mellitus with unspecified complications (5) Hypertension Onset Date: 10/01/16 Current Visit: No Status: Chronic Qualifiers: Hypertension type: essential hypertension Qualified Code(s): I10 - Essential (primary) hypertension Discharge Plan: Home Plan to discharge in: 48 Hours - Code Status/Comfort Care Code Status Assessed: Yes Critical Care: No
[2018-05-08] MEDS: GABAPENTIN 300 MG CAP PO SCH ×2 (13:28→20:19)
[2018-05-09] MEDS: METRONIDAZOLE 500mg IVPB 500 MG/100 ML BAG IV SCH ×2 (00:08→09:43)
[2018-05-09] MEDS: INSULIN -REGULAR HUMAN 50 UNIT/0.5 ML ML SQ SCH ×2 (06:00)
[2018-05-09] MEDS ORDERED: ASPIRIN EC 81 MG TAB PO SCH (09:00)
[2018-05-09] MEDS ORDERED: LISINOPRIL 20 MG TAB PO SCH (09:00)
[2018-05-09] MEDS: NA CHLORIDE 0.9% 1,000 ML IV SCH (09:19)
[2018-05-09 09:21] LABS: BUN Blood Urea Nitrogen 3 mg/dL (7-18); Bicarbonate 26 mmol/L (21-32); Glucose Level 179 mg/dL (74-106); Potassium 3.6 mmol/L (3.5-5.1); Sodium Level 143 mmol/L (136-145)
[2018-05-09 09:31] VITALS: BP 166/77; TEMP 97
[2018-05-09] MEDS: GABAPENTIN 300 MG CAP PO SCH (09:42)
[2018-05-09] MEDS: CIPROFLOXACIN 400mg IV 400 MG/200 ML BAG IV SCH (09:43)
[2018-05-09 11:11] VITALS: O2SAT 96
--- NOTE | 2018-05-09 11:48 | P.DS ---
Admission Date: 05/07/18 Discharge Date: 05/09/18 Disposition: ROUTINE DISCHARGE Discharge Condition: GOOD Reason for Admission: enteritis Consultations: GI General Surgery Procedures: None - Problems (1) Abdominal pain Onset Date: 05/07/18 Status: Acute Qualifiers: Abdominal location: generalized Qualified Code(s): R10.84 - Generalized abdominal pain (2) Enteritis Onset Date: 05/07/18 Status: Acute (3) Cholelithiasis Onset Date: 05/07/18 Status: Chronic Qualifiers: Cholelithiasis location: gallbladder Cholecystitis presence: without cholecystitis Biliary obstruction: without biliary obstruction Qualified Code(s): K80.20 - Calculus of gallbladder without cholecystitis without obstruction (4) Diabetes mellitus Onset Date: 10/01/16 Status: Chronic Qualifiers: Diabetes mellitus type: type 2 Diabetes mellitus terminal clerk insulin use: without terminal clerk use Diabetes mellitus complication status: with unspecified complications Qualified Code(s): E11.8 - Type 2 diabetes mellitus with unspecified complications (5) Hypertension Onset Date: 10/01/16 Status: Chronic Qualifiers: Hypertension type: essential hypertension Qualified Code(s): I10 - Essential (primary) hypertension Brief History of Present Illness: Ms Calderon is a 67 years old woman with history of HTN, DM II, who came to ED complaining of abdominal pain. Her pain started last afternoon, 10/10 of intensity, diffuse, but localized over LLQ at my physical exam, however, previously she was focus her pain in her epigastrium and RUQ. She has had nausea but not vomiting, also diarrhea. No fever or chills. Lab work remarkable for leukocytosis 17K, UA abnormal consistent with UTI. CT abd/pelvis report enteritis, and cholelitiasis. Hospital Course: Overall during the hospital stay patient remained stable Patient was initially admitted to the hospital for abdominal pain nausea and vomiting secondary to what was thought to be small bowel obstruction. Patient had an abdominal CT done here in the hospital. General surgery was consulted who reviewed the CT and stated that patient does not have small bowel obstruction and disease the patient has and right is with the underlying disease process. General surgery recommended GI consultation at this time. On admission patient was started on IV antibiotics Cipro and Flagyl for enteritis that was noted on the CT of the abdomen. GI was consulted who recommended the patient can have clear liquid diet and be advanced to soft diet if tolerated well and will have outpatient workup for IBD. Patient tolerated her diet well without having any abdominal pain nausea vomiting and thus was discharged home under stable condition. Patient was asked to take a diet high in fiber and was prescribed Cipro and Flagyl for total of 10 days. While here in the hospital patient was also found to have urinary tract infection and was positive for E. coli which was sensitive to ciprofloxacin. Patient was to take ciprofloxacin for 10 days for UTI as well. Vital Signs/Physical Exam: Temp Pulse Resp BP Pulse Ox 97 F 60 20 166/77 H 96 05/09/18 08:00 05/09/18 08:00 05/09/18 08:00 05/09/18 08:00 05/09/18 08:00 General: Alert, In no apparent distress HEENT: Atraumatic, PERRLA, EOMI Neck: Supple, JVD not distended Respiratory: Clear to auscultation bilaterally, Normal air movement Cardiovascular: Regular rate/rhythm, Normal S1 S2 Gastrointestinal: Normal bowel sounds, No tenderness Musculoskeletal: No tenderness Integumentary: No rashes Neurological: Normal speech, Normal tone, Normal affect Lymphatics: No axilla or inguinal lymphadenopathy Laboratory Data at Discharge: WBC 8.2 K/uL (4.3-10.9) D 05/08/18 04:08 Hgb 12.8 g/dL (12.0-15.0) 05/08/18 04:08 Hct 37.7 % (36.0-45.0) 05/08/18 04:08 Plt Count 211 K/uL (152-406) D 05/08/18 04:08 PT 12.0 SECONDS (9.5-12.5) 05/06/18 21:25 INR 1.02 05/06/18 21:25 APTT 26.2 SECONDS (24.3-36.9) 05/06/18 21:25 Sodium 143 mmol/L (136-145) 05/09/18 04:16 Potassium 3.6 mmol/L (3.5-5.1) 05/09/18 04:16 BUN 3 mg/dL (7-18) L 05/09/18 04:16 Creatinine 0.50 mg/dL (0.55-1.3) L 05/09/18 04:16 Glucose 179 mg/dL (74-106) H 05/09/18 04:16 Magnesium 2.1 mg/dL (1.8-2.4) 05/06/18 21:25 Total Bilirubin 0.6 mg/dL (0.2-1.0) 05/06/18 21:25 AST 46 U/L (15-37) H 05/06/18 21:25 ALT 40 U/L (12-78) 05/06/18 21:25 Alkaline Phosphatase 109 U/L (45-117) 05/06/18 21:25 Lipase 94 U/L (73-393) 05/06/18 21:25 Home Medications: Acetaminophen with Codeine [Acetaminophen-Cod #3 Tablet] 1 each PO Q6HR PRN Aspirin [Aspirin EC 81 MG] 81 mg PO DAILY 05/07/18 Gabapentin [Gralise] 300 mg PO TID 05/07/18 Lisinopril 20 mg PO DAILY 05/07/18 Metformin HCl 850 mg PO BID 05/07/18 Ciprofloxacin HCl 500 mg PO DAILY #10 tablet 05/09/18 metroNIDAZOLE [Flagyl] 500 mg PO Q8H #30 tablet 05/09/18 New Medications: Ciprofloxacin HCl 500 mg PO DAILY #10 tablet metroNIDAZOLE [Flagyl] 500 mg PO Q8H #30 tablet Patient Discharge Instructions: Please f.u with GI and PCP in 1 to 2 weeks post discharge. New medication. Ciprofloxacin 500mg daily. Flagyl 500mg q8h daily for 10 days Diet: Regular Activity: Ad milo Followup: Jhonny Martines MD [ACTIVE - CAN ADMIT] - 1 Week (Follow in the [facility] in 1 week. Call to schedule an appointment.)
== END 2018-05-09 11:35 | disposition home or self-care (01) | DRG 392 ==
LOC: ER 21:05 → ERHOLD 05-07 03:51 → 2ND 05-07 04:01 → OBSVTOIN 05-07 14:32
PROVIDERS: ADMIT Internal Medicine; ATTEND Family Medicine
DX: K52.9 Noninfective gastroenteritis and colitis, unspecified (principal); N39.0 Urinary tract infection, site not specified; K80.20 Calculus of gallbladder without cholecystitis without obstruction; E11.8 Type 2 diabetes mellitus with unspecified complications; I10 Essential (primary) hypertension; B96.20 Unspecified Escherichia coli [E. coli] as the cause of diseases classified elsewhere; Z79.84 Long term (current) use of oral hypoglycemic drugs; Z79.82 Long term (current) use of aspirin
CPT/HCPCS: 36415; 71045; 74177; 76705; 80048; 80076; 81003; 82550; 82553; 82962; 83690; 83735; 83880; 84484; 85025; 85610; 85730; 87077; 87086; 87088; 87186; 87493; 90670; 93005; 96361; 96365; 96367; 96375; 99285; G0009; G0378; J0696; J0744; J2405; J3010; J7030; Q9967

== ENCOUNTER 2018-06-06 17:30 | Observation (INO) | payer MEDICARE, OTHER ==
[2018-06-06] MEDS ORDERED: NITROGLYCERIN 0.4 MG/TAB SL ONE (18:01)
--- NOTE | 2018-06-06 18:17 | RAD REPORT ---
EXAM DESCRIPTION: RAD - Chest Single View - 06/06/2018 6:05 pm CLINICAL HISTORY: CHEST PAIN Chest pain. COMPARISON: Chest Single View dated 05/06/2018; Chest Pa And Lat (2 Views) dated 10/31/2017; Abdomen 1 View (KUB) dated 04/10/2017; Chest Single View dated 09/30/2016 FINDINGS: Portable technique limits examination quality. The lungs are grossly clear. The heart is normal in size. No displaced fractures. IMPRESSION: No acute intrathoracic process suspected.
[2018-06-06 18:19] LABS: Absolute Lymphocytes (CBC) 2.6 K/uL (0.7-4.9); Absolute Monocytes 0.7 K/uL (0.1-1.3); Absolute Neutrophil 7.8 K/uL (1.8-8.0); Eosinophils % 2.3 % (0-4.4); Hematocrit 44.3 % (36.0-45.0); Lymphocytes % 22.7 % (15.3-44.8); MCH 35.8 pg (27.0-35.0); MCV 105.2 fL (80-100); MPV 9.3 fL (7.6-11.3); Monocytes % 6.4 % (3.3-12.3); RBC Red Blood Cell Count 4.22 M/uL (3.86-4.86)
[2018-06-06 18:23] LABS: Protime INR 1.05
[2018-06-06] MEDS ORDERED: FENTANYL CITR 100 MCG/2 ML ONE (18:25)
[2018-06-06 18:32] LABS: ALT/SGPT 40 U/L (12-78); AST/SGOT 74 U/L (15-37); Albumin 3.4 g/dL (3.4-5.0); Alkaline Phosphatase 104 U/L (45-117); BUN Blood Urea Nitrogen 10 mg/dL (7-18); Bicarbonate 27 mmol/L (21-32); Bilirubin Direct 0.2 mg/dL (0-0.2); Bilirubin Total 0.5 mg/dL (0.2-1.0); CKMB Creatine Kinase MB < 1.0 ng/mL (0.3-3.6); Creatine Phosphokinase 17 U/L (26-192); Glucose Level 384 mg/dL (74-106); Lipase 153 U/L (73-393); NT PRO-BNP 38 pg/mL (<125); Potassium 4.1 mmol/L (3.5-5.1); Protein, Total 8.9 g/dL (6.4-8.2); Sodium Level 134 mmol/L (136-145)
[2018-06-06] MEDS ORDERED: NA CHLORIDE 0.9% 1,000 ML ONE (18:34)
[2018-06-06 19:15] LABS: Blood Morphology Comment NOTED (NOT SEEN); Macrocytosis 1+; Platelet Estimate ADEQ; Urine White Blood Cell Casts OK
--- NOTE | 2018-06-06 19:44 | EDPHYS ---
Physician Documentation [facility] Name: Ivet Calderon Age: 67 yrs Sex: Female : 1950 Arrival Date: 06/06/2018 Time: 17:36 Bed 8 Private MD: ED Physician Jatinder Nicholas HPI: 06/06 18:00 This 67 yrs old Female presents to ER via EMS with complaints of Chest Pain > cp 31 y/o. 18:00 The patient or guardian reports chest pain that is located primarily in the anterior cp chest wall, left. Onset: today, at 17:00. Associated signs and symptoms: Pertinent positives: shortness of breath. The chest pain is described as tightness. 18:00 Duration: The patient or guardian reports a single episode, that is still ongoing, but cp improving. 18:00 EMS care prior to arrival includes: aspirin, nitroglycerin, x 1. cp Historical: - Allergies: 17:41 No Known Allergies; dm5 - Home Meds: 17:41 aspirin 81 mg Oral chew 1 tab once daily [Active]; Lopressor 50 mg Oral tab 1 tab once dm5 daily [Active]; metformin 500 mg Oral tab 1 tab 2 times per day [Active]; Plavix Oral [Active]; - PMHx: 17:41 Diabetes - NIDDM; Hypertension; dm5 - PSHx: 17:53 Carotid blockage "cleaned out" - right; dm5 - Immunization history:: Adult Immunizations up to date. - Social history:: Smoking status: Patient/guardian denies using tobacco. - Ebola Screening: : Patient negative for fever greater than or equal to 101.5 degrees Fahrenheit, and additional compatible Ebola Virus Disease symptoms Patient denies exposure to infectious person Patient denies travel to an Ebola-affected area in the 21 days before illness onset No symptoms or risks identified at this time. ROS: 18:05 Constitutional: Negative for body aches, chills, fever, poor PO intake. cp 18:05 Eyes: Negative for injury, pain, redness, and discharge. cp 18:05 ENT: Negative for drainage from ear(s), ear pain, sore throat. 18:05 Cardiovascular: Positive for chest pain, Negative for edema, palpitations. 18:05 Respiratory: Positive for shortness of breath, Negative for cough, wheezing. 18:05 Abdomen/GI: Negative for abdominal pain, nausea, vomiting, and diarrhea. 18:05 Back: Negative for pain at rest, pain with movement, radiated pain. 18:05 Skin: Negative for cellulitis, rash. 18:05 Neuro: Negative for altered mental status, headache, numbness, weakness. 18:05 All other systems are negative. Exam: 17:35 ECG was reviewed by the Attending Physician. cp 18:10 ECG was reviewed by the Attending Physician. cp 18:10 Constitutional: The patient appears in no acute distress, alert, awake, cp non-diaphoretic, non-toxic, well developed, well nourished. 18:10 Head/Face: Normocephalic, atraumatic. Eyes: Pupils equal round and reactive to light, cp extra-ocular motions intact. Lids and lashes normal. Conjunctiva and sclera are non-icteric and not injected. Cornea within normal limits. Periorbital areas with no swelling, redness, or edema. ENT: Nares patent. No nasal discharge, no septal abnormalities noted. Tympanic membranes are normal and external auditory canals are clear. Oropharynx with no redness, swelling, or masses, exudates, or evidence of obstruction, uvula midline. Mucous membranes moist. Chest/axilla: Normal chest wall appearance and motion. Nontender with no deformity. No lesions are appreciated. 18:10 Cardiovascular: Rate: normal, Rhythm: regular, Heart sounds: murmur, not appreciated, rub, not appreciated, gallop, not appreciated, Edema: is not appreciated, JVD: is not appreciated. 18:10 Respiratory: the patient does not display signs of respiratory distress, Respirations: normal, no use of accessory muscles, no retractions, no splinting, no tachypnea, labored breathing, is not present, Breath sounds: are clear throughout, no decreased breath sounds, no stridor, no wheezing. 18:10 Abdomen/GI: Inspection: abdomen appears normal, Bowel sounds: active, all quadrants, Palpation: abdomen is soft and non-tender, in all quadrants. 18:10 Back: pain, is absent, ROM is normal. 18:10 Musculoskeletal/extremity: Exam is negative for calf tenderness, deformity, injury. 18:10 Skin: cellulitis, is not appreciated, no rash present. 18:10 Neuro: Orientation: to person, place \\T\\ time. Mentation: lucid, able to follow commands, Cerebellar function: is grossly normal, Motor: moves all fours, strength is normal, Sensation: no obvious gross deficits. Vital Signs: 17:41 BP 162 / 101; Pulse 103; Resp 22; Temp 98.7(O); Pulse Ox 94% on R/A; dm5 17:41 Pulse Ox 98% on 3 lpm NC; dm5 18:10 BP 145 / 76; Pulse 93; Resp 16; Pulse Ox 97% on 2 lpm NC; dm5 18:50 BP 135 / 57; Pulse 90; Resp 16; Pulse Ox 99% ; em1 19:58 BP 153 / 64; Pulse 82; Resp 16; Pulse Ox 98% ; Weight 75.3 kg; bp 21:09 BP 148 / 68; Pulse 85; Resp 14; Pulse Ox 97% ; bp 21:30 BP 146 / 64; Pulse 87; Resp 25; Pulse Ox 98% ; bp MDM: 17:40 Patient medically screened. 19:20 Data reviewed: vital signs, nurses notes, lab test result(s), EKG, radiologic studies, cp plain films. 19:20 Test interpretation: by ED physician or midlevel provider: ECG, plain radiologic cp studies. Response to treatment: the patient's symptoms have resolved after treatment, and as a result, I will admit patient. 06/06 17:41 Order name: Basic Metabolic Panel; Complete Time: 19:16 cp 06/06 19:16 Interpretation: Normal except: NA 134; GLUC 384; GFR 63. 06/06 17:41 Order name: CBC with Diff; Complete Time: 19:16 06/06 19:16 Interpretation: Normal except: WBC 11.5; HGB 15.1; MCV 105.2; MCH 35.8. cp 06/06 17:41 Order name: Ckmb; Complete Time: 19:16 cp 06/06 17:41 Order name: CPK; Complete Time: 19:16 cp 06/06 17:41 Order name: LFT's; Complete Time: 19:16 cp 06/06 19:16 Interpretation: Normal except: AST 74; TP 8.9; GLOB 5.5; A/G 0.6. cp 06/06 17:41 Order name: Magnesium; Complete Time: 19:16 cp 08/24 17:41 Order name: NT PRO-BNP; Complete Time: 19:16 cp 06/06 17:41 Order name: PT-INR; Complete Time: 19:16 cp 06/06 17:41 Order name: Ptt, Activated; Complete Time: 19:16 cp 06/06 17:41 Order name: Troponin (emerg Dept Use Only); Complete Time: 19:16 cp 06/06 17:41 Order name: XRAY Chest (1 view); Complete Time: 19:16 cp 06/06 17:41 Order name: Lipase; Complete Time: 19:16 cp 06/06 18:20 Order name: CBC Smear Scan; Complete Time: 19:16 EDMS 06/06 17:41 Order name: EKG; Complete Time: 17:41 cp 06/06 17:41 Order name: Cardiac monitoring; Complete Time: 17:59 cp 06/06 17:41 Order name: EKG - Nurse/Tech; Complete Time: 18:00 cp 06/06 17:41 Order name: IV Saline Lock; Complete Time: 18:00 cp 06/06 17:41 Order name: Labs collected and sent; Complete Time: 18:00 cp 06/06 17:41 Order name: O2 Per Protocol; Complete Time: 18:00 cp 06/06 17:41 Order name: O2 Sat Monitoring; Complete Time: 18:00 cp 06/06 18:23 Order name: EKG; Complete Time: 18:23 em1 06/06 18:23 Order name: EKG - Nurse/Tech; Complete Time: 18:23 em1 06/06 19:51 Order name: CONS Physician Consult EDMS EC:35 Rate is 111 beats/min. Rhythm is regular. CA interval is normal. QRS interval is cp normal. QT interval is normal. Interpreted by me. Reviewed by me. 18:10 Rate is 125 beats/min. Rhythm is regular. CA interval is normal. QRS interval is cp normal. QT interval is normal. Interpreted by me. Reviewed by me. Administered Medications: 17:59 Drug: Nitroglycerin 0.4 mg {Note: dose 1 \\T\\ 1759 pain rated 5/10 prior to dm5 administration.} Route: Sublingual; 18:04 Drug: Nitroglycerin 0.4 mg {Note: 2 dose \\T\\ 1804, pain now on right side of chest after dm5 chest x ray rated at 8/10.} Route: Sublingual; 18:34 Follow up: Response: No adverse reaction; No adverse reaction, patient reports headache ss now, chest pain has improved. Headache relieved shortly after Fentanyl administration. 18:23 Drug: NS 0.9% 500 ml {Note: used bag from EMS.} Route: IV; Rate: bolus; Site: right dm5 antecubital; 21:44 Follow up: IV Status: Completed infusion; IV Intake: 500ml bp 18:24 Drug: fentaNYL (PF) 25 mcg Route: IVP; Site: right antecubital; dm5 18:33 Follow up: Response: No adverse reaction; Pain is decreased ss 18:34 Drug: NS 0.9% 1000 ml Route: IV; Rate: 100 ml/hr; Site: right antecubital; ss 21:44 Follow up: IV Status: Infusion continued upon admission bp 20:09 Drug: NovoLIN R 10 units {Co-Signature: aa1 (Kathy Sheikh RN).} Route: Sub-Q; Site: bp right upper arm; 21:10 Follow up: Response: No adverse reaction bp 20:09 Drug: Lovenox 1 mg/kg Route: Sub-Q; Site: right lower abdomen; bp 21:10 Follow up: Response: No adverse reaction bp Point of Care Testing: Blood Glucose: 21:08 Blood Glucose: 279 mg/dL; bp Ranges: Critical Glucose Levels:Adult <50 mg/dl or >400 mg/dl <40 mg/dl or >180 mg/dl Disposition: 06/07 08:35 Co-signature as Attending Physician, Jatinder Nicholas MD I agree with the assessment and wa plan of care. Disposition: 06/06/18 19:44 Hospitalization ordered by Jesus Simeon for Observation. Preliminary diagnosis is Angina pectoris, unspecified. - Bed requested for Telemetry/MedSurg (observation). - Status is Observation. bp - Condition is Stable. - Problem is new. - Symptoms have improved. UTI on Admission? No Signatures: Dispatcher [employer] Sharon Avina RN RN kl Markwardt, Deana, RN RN dm5 Martinez, Eric emGracie Feldman RN RN ss Shankar George, JAMIE PA Jatinder Calzada MD MD wa Peltier, Brian, RN RN bp Kathy Sheikh RN aa1 Corrections: (The following items were deleted from the chart) 06/06 17:50 17:41 PSHx: None; dm5 dm5 21:18 19:44 Hospitalization Ordered by Jesus Simeon MD for Observation. Preliminary kl diagnosis is Angina pectoris, unspecified. Bed requested for Telemetry/MedSurg (observation). Status is Observation. Condition is Stable. Problem is new. Symptoms have improved. UTI on Admission? No. cp 21:45 21:18 06/06/2018 19:44 Hospitalization Ordered by Jesus Simeon MD for Observation. bp Preliminary diagnosis is Angina pectoris, unspecified. Bed requested for Telemetry/MedSurg (observation). Status is Observation. Condition is Stable. Problem is new. Symptoms have improved. UTI on Admission? No. kl
--- NOTE | 2018-06-06 19:44 | ER ---
Nurse's Notes [facility] Name: Ivet Calderon Age: 67 yrs Sex: Female : 1950 Arrival Date: 06/06/2018 Time: 17:36 Bed 8 Private MD: Diagnosis: Angina pectoris, unspecified Presentation: 06/06 17:36 Presenting complaint: EMS states: chest pain started about 1 hour ago, pt states they dm5 were diaphoretic and short of breath. Pt received 324 Aspirin and 1 nitro SL in route to ED. Pt reports pain has lessened from /10 to 5/10 at this time. pt A \\T\\ O x 4. Transition of care: patient was not received from another setting of care. Onset of symptoms was June 06, 2018. Risk Assessment: Do you want to hurt yourself or someone else? Patient reports no desire to harm self or others. Initial Sepsis Screen: Does the patient meet any 2 criteria? No. Patient's initial sepsis screen is negative. Does the patient have a suspected source of infection? No. Patient's initial sepsis screen is negative. Care prior to arrival: IV initiated. 20 GA, in the right antecubital area, Glucose check: 337. 17:36 Method Of Arrival: EMS: [facility] dm5 17:36 Acuity: DORYS 2 dm5 Triage Assessment: 17:41 General: Appears in no apparent distress. uncomfortable, Behavior is calm, cooperative. dm5 Pain: Complains of pain in chest Pain currently is 5 out of 10 on a pain scale. at worst was 10 out of 10 on a pain scale. Cardiovascular: Reports chest pain, diaphoresis, shortness of breath, Capillary refill < 3 seconds. Respiratory: Airway is patent Breath sounds are clear. Historical: - Allergies: 17:41 No Known Allergies; dm5 - Home Meds: 17:41 aspirin 81 mg Oral chew 1 tab once daily [Active]; Lopressor 50 mg Oral tab 1 tab once dm5 daily [Active]; metformin 500 mg Oral tab 1 tab 2 times per day [Active]; Plavix Oral [Active]; - PMHx: 17:41 Diabetes - NIDDM; Hypertension; dm5 - PSHx: 17:53 Carotid blockage "cleaned out" - right; dm5 - Immunization history:: Adult Immunizations up to date. - Social history:: Smoking status: Patient/guardian denies using tobacco. - Ebola Screening: : Patient negative for fever greater than or equal to 101.5 degrees Fahrenheit, and additional compatible Ebola Virus Disease symptoms Patient denies exposure to infectious person Patient denies travel to an Ebola-affected area in the 21 days before illness onset No symptoms or risks identified at this time. Screenin:50 Abuse screen: Denies threats or abuse. Denies injuries from another. Nutritional dm5 screening: No deficits noted. Tuberculosis screening: No symptoms or risk factors identified. Fall Risk None identified. Assessment: 17:50 Pain: Complains of pain in anterior aspect of left upper chest Pain does not radiate. dm5 Pain currently is 5 out of 10 on a pain scale. Pain began suddenly, 1 hour ago. 18:35 General: Appears in no apparent distress. comfortable, Behavior is calm, cooperative, ss Denies fever, feeling ill, fatigue, chills. Pain: Complains of pain in anterior aspect of left upper chest Pain currently is 5 out of 10 on a pain scale. at worst was 10 out of 10 on a pain scale. Quality of pain is described as pressure, Is continuous. Neuro: Level of Consciousness is awake, alert, obeys commands, Oriented to person, place, time, situation. Cardiovascular: Capillary refill < 3 seconds is brisk in bilateral fingers. Respiratory: Airway is patent Respiratory effort is even, unlabored, Respiratory pattern is regular, symmetrical. GI: Patient currently denies diarrhea, nausea, vomiting. EENT: Oral mucosa is moist. Derm: Skin is intact, is healthy with good turgor, Skin is pink, warm \\T\\ dry. Musculoskeletal: Circulation, motion, and sensation intact. Range of motion: intact in all extremities, Swelling absent. 19:05 Reassessment: RECD REPORT FROM GRACIE GARCIA. 67YO HF P/W "TIGHT" CP, RELIEVED BY NTG. ALL bp CURRENT STUDIES IN PROCESS. 19:07 Reassessment: Patient appears in no apparent distress at this time. Patient and/or ss family updated on plan of care and expected duration. Pain level reassessed. family at bedside, awaiting disposition Patient states feeling better. Patient states symptoms have improved. 19:11 Reassessment: report given to JOSE Braun. ss 20:01 Reassessment: ADMIT IN PROCESS. bp Vital Signs: 17:41 BP 162 / 101; Pulse 103; Resp 22; Temp 98.7(O); Pulse Ox 94% on R/A; dm5 17:41 Pulse Ox 98% on 3 lpm NC; dm5 18:10 BP 145 / 76; Pulse 93; Resp 16; Pulse Ox 97% on 2 lpm NC; dm5 18:50 BP 135 / 57; Pulse 90; Resp 16; Pulse Ox 99% ; em1 19:58 BP 153 / 64; Pulse 82; Resp 16; Pulse Ox 98% ; Weight 75.3 kg; bp 21:09 BP 148 / 68; Pulse 85; Resp 14; Pulse Ox 97% ; bp 21:30 BP 146 / 64; Pulse 87; Resp 25; Pulse Ox 98% ; bp Vitals: 17:50 Cardiac Rhythm Assessment Sinus tach. dm5 ED Course: 17:36 Patient arrived in ED. dm5 17:38 Shankar George PA is PHCP. cp 17:38 Jatinder Nicholas MD is Attending Physician. cp 17:39 Triage completed. dm5 17:41 Arm band placed on left wrist. EKG completed in triage. Results shown to MD. dm5 Antipyretics given from triage as ordered by an ER provider. Antipyretics given from triage as ordered by an ER provider. Labs ordered per protocol. Drawn by ED staff. 17:45 EKG done, by ED staff. mb4 17:50 Maintain EMS IV. Dressing intact. Good blood return noted. Site clean \\T\\ dry. Gauge \\T\\ dm 5 site: 20 G. Oxygen administration via nasal cannula \\T\\ 2L/min. 17:50 Patient has correct armband on for positive identification. Placed in gown. Bed in low dm5 position. Call light in reach. monitoring coordinator on. Pulse ox on. NIBP on. Warm blanket given. 18:03 X-ray completed. Portable x-ray completed in exam room. Patient tolerated procedure mh1 well. 18:04 XRAY Chest (1 view) In Process Unspecified. EDMS 18:33 Gracie Fernandez, JOSE is Primary Nurse. ss 19:42 Jesus Simeon MD is Hospitalizing Provider. cp 21:33 No provider procedures requiring assistance completed. Patient admitted, IV remains in bp place. Administered Medications: 17:59 Drug: Nitroglycerin 0.4 mg {Note: dose 1 \\T\\ 1759 pain rated 5/10 prior to dm5 administration.} Route: Sublingual; 18:04 Drug: Nitroglycerin 0.4 mg {Note: 2 dose \\T\\ 1804, pain now on right side of chest after dm5 chest x ray rated at 8/10.} Route: Sublingual; 18:34 Follow up: Response: No adverse reaction; No adverse reaction, patient reports headache ss now, chest pain has improved. Headache relieved shortly after Fentanyl administration. 18:23 Drug: NS 0.9% 500 ml {Note: used bag from EMS.} Route: IV; Rate: bolus; Site: right dm5 antecubital; 21:44 Follow up: IV Status: Completed infusion; IV Intake: 500ml bp 18:24 Drug: fentaNYL (PF) 25 mcg Route: IVP; Site: right antecubital; dm5 18:33 Follow up: Response: No adverse reaction; Pain is decreased ss 18:34 Drug: NS 0.9% 1000 ml Route: IV; Rate: 100 ml/hr; Site: right antecubital; ss 21:44 Follow up: IV Status: Infusion continued upon admission bp 20:09 Drug: NovoLIN R 10 units {Co-Signature: aa1 (Kathy Sheikh RN).} Route: Sub-Q; Site: bp right upper arm; 21:10 Follow up: Response: No adverse reaction bp 20:09 Drug: Lovenox 1 mg/kg Route: Sub-Q; Site: right lower abdomen; bp 21:10 Follow up: Response: No adverse reaction bp Point of Care Testing: Blood Glucose: 21:08 Blood Glucose: 279 mg/dL; bp Ranges: Intake: 21:44 IV: 500ml; Total: 500ml. bp Outcome: 19:44 Decision to Hospitalize by Provider. cp 21:42 Admitted to Tele accompanied by tech, family with patient, via wheelchair, room 230, bp with chart, Report called to BLANCO GARCIA 21:42 Condition: stable 21:42 Instructed on the need for admit. 21:45 Patient left the ED. bp Signatures: Dispatcher [employer] EDEva Roberts RN RN dm5 Anabela Wade 1 Petr Matthew 1 Gracie Fernandez RN RN ss Shankar George PA PA Kade Villaseñor, RN RN bp Nicole Warren mb4 Kathy Sheikh RN aa1 Corrections: (The following items were deleted from the chart) 17:50 17:41 PSHx: None; dm5 dm5 18:26 18:23 NS 0.9% 500 ml IV at bolus in right antecubital dm5 dm5
[2018-06-06] MEDS ORDERED: INSULIN -REGULAR HUMAN 50 UNIT/0.5 ML ML ONE (20:09)
[2018-06-06] MEDS ORDERED: ENOXAPARIN 80 MG/0.8 ML SQ ONE (20:10)
--- NOTE | 2018-06-06 21:12 | P.HP ---
Certification for Inpatient Patient admitted to: Observation With expected LOS: <2 Midnights Practitioner: I am a practitioner with admitting privileges, knowledge of patient current condition, hospital course, and medical plan of care. Services: Services provided to patient in accordance with Admission requirements found in Title 42 Section 412.3 of the Code of Federal Regulations Patient History Date of Service: 06/06/18 Reason for admission: Chest pain History of Present Illness: Ms Calderon is a 67-year-old woman with history of hypertension, diabetes mellitus types 2, insulin-dependent, coronary artery disease status post cardiac catheterization last year which shows moderate coronary artery disease without stenting procedure. Today around 5 o'clock p.m. she had a severe chest pain episode. The pain was located in substernal area, not radiated, associated with shortness of breath and diaphoresis, 10/10 of intensity, described as pressure sensation. She denied any nausea vomiting. The patient then was transferred by EMT to the hospital, she received 1 nitro sublingual in the ambulance, subsequently the pain improved but did not resolve. Once in ER, she had 2 more nitro sublingual, and after the last one, the pain subsided. Initial troponin I is negative, EKG shows sinus tachycardia with isolated PVCs, Q-waves noted in inferior leads. Allergies No Known Drug Allergies Allergy (Verified 05/07/18 04:29) Unknown No Known Allergies Allergy (Uncoded 12/15/16 12:01) Unknown Home medications list reviewed: Yes Home Medications: Acetaminophen with Codeine [Acetaminophen-Cod #3 Tablet] 1 each PO Q6HR PRN Aspirin [Aspirin EC 81 MG] 81 mg PO DAILY 05/07/18 Gabapentin [Gralise] 300 mg PO TID 05/07/18 Lisinopril 20 mg PO DAILY 05/07/18 Metformin HCl 850 mg PO BID 05/07/18 Ciprofloxacin HCl 500 mg PO DAILY #10 tablet 05/09/18 metroNIDAZOLE [Flagyl] 500 mg PO Q8H #30 tablet 05/09/18 - Past Medical/Surgical History Diabetic: Yes -: HTN -: DIABETES -: Tubal Ligation - Family History Mother -: Lung disease, Diabetes Father -: Diabetes, Cancer Notes: soraya's dse - Social History Smoking Status: Never smoker Alcohol use: No CD- Drugs: No Caffeine use: No Place of Residence: Home Review of Systems 10-point ROS is otherwise unremarkable Physical Examination - Physical Exam General: Alert, In no apparent distress HEENT: Atraumatic, PERRLA, Mucous membr. moist/pink, EOMI, Sclerae nonicteric Neck: Supple, 2+ carotid pulse no bruit, No LAD, Without JVD or thyroid abnormality Respiratory: Clear to auscultation bilaterally, Normal air movement Cardiovascular: Regular rate/rhythm, Normal S1 S2 Gastrointestinal: Normal bowel sounds, No tenderness Musculoskeletal: No tenderness Integumentary: No rashes Neurological: Normal speech, Normal strength at 5/5 x4 extr, Normal tone, Normal affect Lymphatics: No axilla or inguinal lymphadenopathy - Studies Laboratory Data (last 24 hrs) 06/06/18 17:35: PT 12.4, INR 1.05, APTT 27.1 06/06/18 17:35: WBC 11.5 H, Hgb 15.1 H, Hct 44.3, Plt Count 313 06/06/18 17:35: Sodium 134 L, Potassium 4.1, BUN 10, Creatinine 0.90, Glucose 384 H, Magnesium 2.0, Total Bilirubin 0.5, AST 74 H, ALT 40, Alkaline Phosphatase 104, Lipase 153 Assessment and Plan - Problems (Diagnosis) (1) CAD (coronary artery disease) Current Visit: Yes Status: Acute Qualifiers: Coronary Disease-Associated Artery/Lesion type: [place] artery [place] vs. 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 Initial troponin I is negative, EKG shows old inferior AK. Will order serial cardiac enzymes and EKG, consult Cardiology for evaluation recommendation. Will order beta-blockers, statins, aspirin and full anticoagulation since the patient has typical chest pain. - Advance Directives Does patient have a Living Will: No Does patient have a Durable POA for Healthcare: No - Code Status/Comfort Care Code Status Assessed: Yes Code Status: Full Code
[2018-06-06] MEDS ORDERED: MORPHINE 4 MG/ML SYR IV PRN (21:44)
[2018-06-06] MEDS ORDERED: NITROGLYCERIN 0.4 MG/TAB SL PRN (21:44)
[2018-06-06] MEDS: METOPROLOL TAR 50 MG TAB PO SCH (22:44)
[2018-06-06] MEDS: ATORVASTATIN 40 MG TAB PO SCH (22:45)
[2018-06-07] MEDS: INSULIN -REGULAR HUMAN 50 UNIT/0.5 ML ML SQ SCH ×4 (00:11→18:07)
[2018-06-07 05:39] LABS: MPV 9.1 fL (7.6-11.3)
[2018-06-07 05:45] LABS: Absolute Lymphocytes (CBC) 3.8 K/uL (0.7-4.9); Absolute Monocytes 1.1 K/uL (0.1-1.3); Absolute Neutrophil 7.9 K/uL (1.8-8.0); Basophils % 0.6 % (0-1.3); Hematocrit 39.7 % (36.0-45.0); Lymphocytes % 28.8 % (15.3-44.8); Monocytes % 8.2 % (3.3-12.3); RBC Red Blood Cell Count 3.76 M/uL (3.86-4.86)
[2018-06-07 05:46] LABS: MCV 105.5 fL (80-100)
[2018-06-07 06:12] LABS: BUN Blood Urea Nitrogen 9 mg/dL (7-18); Bicarbonate 27 mmol/L (21-32); Glucose Level 182 mg/dL (74-106); HDL Cholesterol 38 mg/dL (40-60); LDL Cholesterol, Calculated 137 (<130); Potassium 3.8 mmol/L (3.5-5.1); Sodium Level 137 mmol/L (136-145)
--- NOTE | 2018-06-07 08:14 | P.PN ---
Subjective Date of Service: 06/07/18 Primary Care Provider: Dr. Dallas; Cardiology-Dr. Shook Chief Complaint: Chest pain Subjective: Improving (Patient without chest pain this morning. Blood pressure better controlled) Physical Examination - Vital Signs Temperature: 98.2 F Blood Pressure: 113/55 Pulse: 73 Respirations: 18 Pulse Ox (%): 93 - Physical Exam General: Alert, In no apparent distress, Oriented x3, Cooperative HEENT: Atraumatic Neck: Supple Respiratory: Clear to auscultation bilaterally, Normal air movement Cardiovascular: Normal pulses, Regular rate/rhythm Gastrointestinal: Normal bowel sounds, Soft and benign, Non-distended, No tenderness, No masses, No rebound, No guarding Musculoskeletal: No erythema, No tenderness, No warmth Integumentary: No tenderness/swelling, No erythema, No warmth, No cyanosis Neurological: Normal speech, Normal strength at 5/5 x4 extr, Normal tone, Normal affect - Studies Laboratory Data (last 24 hrs) 06/06/18 17:35: PT 12.4, INR 1.05, APTT 27.1 06/06/18 17:35: WBC 11.5 H, Hgb 15.1 H, Hct 44.3, Plt Count 313 06/06/18 17:35: Sodium 134 L, Potassium 4.1, BUN 10, Creatinine 0.90, Glucose 384 H, Magnesium 2.0, Total Bilirubin 0.5, AST 74 H, ALT 40, Alkaline Phosphatase 104, Lipase 153 Medications List Reviewed: Yes Assessment & Plan - Problems (Diagnosis) (1) Obesity Current Visit: Yes Status: Chronic Plan: Will address lifestyle modification education. Qualifiers: Obesity type: due to excess calories Obesity classification: adult class 1 (BMI 30 - 34.9) Serious obesity comorbidity presence: with serious comorbidity Body mass index: BMI 31.0-31.9 Qualified Code(s): E66.09 - Other obesity due to excess calories; Z68.31 - Body mass index (BMI) 31.0-31.9, adult (2) CAD (coronary artery disease) Current Visit: Yes Status: Chronic Plan: Patient with history of heart catheterization done in October 2016. Moderate disease was identified. At that time findings showed 30% stenosis to the right RCA, 20% stenosis to the left RCA. Left dominant system 60-70% up to OM1 and 30 % ostial LAD. No stent was placed at that time. Medical management was recommended. So far chest pain has resolved. Cardiac enzymes unremarkable. Await further recommendations from cardiology. She reports that she had a stress test done this year. This was likely done as an outpatient. Qualifiers: Coronary Disease-Associated Artery/Lesion type: [place] artery [place] vs. transplanted heart: [place] heart Associated angina: with unstable angina Qualified Code(s): I25.110 - Atherosclerotic heart disease of [place] coronary artery with unstable angina pectoris (3) Chest pain Onset Date: 08/22/16 Current Visit: No Status: Acute Plan: Chest pain now resolved. Blood pressure better controlled with metoprolol. Await further recommendations from cardiology. Last heart catheterization in October 2016 showed moderate disease without any need stenting. Medical management was recommended at that time. Qualifiers: Chest pain type: precordial pain Qualified Code(s): R07.2 - Precordial pain (4) Diabetes mellitus Onset Date: 10/01/16 Current Visit: No Status: Chronic Plan: Will check A1c. Continue sliding scale. Better diabetic control is required. Qualifiers: Diabetes mellitus type: type 2 Diabetes mellitus mcfp insulin use: without terminal gauger supervisor use Diabetes mellitus complication status: with other specified complication Qualified Code(s): E11.69 - Type 2 diabetes mellitus with other specified complication (5) Hypertension Onset Date: 10/01/16 Current Visit: No Status: Chronic Plan: Better blood pressure control required. Blood pressure now improved with metoprolol. Hold lisinopril. Qualifiers: Hypertension type: essential hypertension Qualified Code(s): I10 - Essential (primary) hypertension (6) Hyperlipidemia Current Visit: Yes Status: Chronic Plan: Will start statin medication. LDL elevated. Qualifiers: Hyperlipidemia type: mixed hyperlipidemia Qualified Code(s): E78.2 - Mixed hyperlipidemia (7) GERD (gastroesophageal reflux disease) Current Visit: Yes Status: Suspected Plan: Will start PPI. Qualifiers: Esophagitis presence: esophagitis presence not specified Qualified Code(s) : K21.9 - Gastro-esophageal reflux disease without esophagitis Discharge Plan: Home Plan to discharge in: 24 Hours Time Spent Managing Pts Care (In Minutes): 55
--- NOTE | 2018-06-07 08:31 | EKG ---
Test Date: 2018-06-06 Test Time: 18:04:56 Lacquer Polisher: JORDI MEASUREMENT RESULTS: Intervals: Rate: 125 HI: 136 QRSD: 74 QT: 318 QTc: 458 [place]: P: 36 HI: 136 QRS: 67 T: 36 INTERPRETIVE STATEMENTS: Sinus tachycardia Cannot rule out Anterior infarct, age undetermined Abnormal ECG Compared to ECG 06/06/2018 17:30:40 Ventricular premature complex(es) no longer present Myocardial infarct finding still present Electronically Signed On 06-07-18 08:31:01 CDT by Eric Kingston
--- NOTE | 2018-06-07 08:32 | EKG ---
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
[2018-06-07] MEDS: HOME MED 1 EA UNK (Gabapentin [Gralise] 300 MG) PO SCH (09:00)
[2018-06-07] MEDS: ENOXAPARIN 80 MG/0.8 ML SQ SCH ×2 (10:13→21:26)
[2018-06-07] MEDS: METOPROLOL TAR 50 MG TAB PO SCH ×2 (10:19→21:26)
[2018-06-07] MEDS: ASPIRIN EC 81 MG TAB PO SCH ×2 (10:21→10:22)
--- NOTE | 2018-06-07 13:48 | CON ---
Chief Complaint: Chest pain. History Of Present Illness: Ms. Calderon had a cardiac cath, October 2016. At that time, there was a s tenosis noted in an obtuse marginal. It was elected to give her medical therapy. Since then, she khalil s done well until the last few months. Now, mild exertion gives her chest pain. She had chest pain. Called EMS. Four nitros were given before the pain went away. Her heart rate was about 110 with s inus tachycardia. Once her heart rate was slowed, she felt better. Her past medical history is significant for coronary heart disease, cerebrovascular disease, hyperten matilda, diabetes. She is not on a lipid medication. Medications have been aspirin, metoprolol, metfor min, gabapentin. She has no known allergies. Denies tobacco use now. Physical Examination: General: 5 feet 1 inch, 164 pounds, obese, alert, oriented, not in distress. Lungs: Reveal no crackles or wheeze. She makes a moaning sound with each breath, but that went away when she was asked not to use it, so it is not wheeze or stridor. Heart: Reveals no significant abnormalities. Abdomen: Soft. Extremities: Palpable distal pulses. Radial pulses normal. 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 Impression: The patient has unstable angina without significant ST changes and without troponin elev ation. I have recommended to her she undergo a cardiac cath. We will try to do that on Saturday. We will continue to give her Lovenox, metoprolol, heparin, start her on a statin medication, and we will do a cardiac cath. Primary approach will be radial, and we will see if we need to put any stents in or if it can be treated without coron zaida intervention. MARIAM/RIANNA Voice ID: [id number] Report ID: [id number]
[2018-06-07] MEDS: ATORVASTATIN 40 MG TAB PO SCH (21:26)
[2018-06-08] MEDS: INSULIN -REGULAR HUMAN 50 UNIT/0.5 ML ML SQ SCH ×4 (01:07→22:15)
[2018-06-08 05:17] LABS: Absolute Lymphocytes (CBC) 4.7 K/uL (0.7-4.9); Absolute Neutrophil 5.1 K/uL (1.8-8.0); Basophils % 0.7 % (0-1.3); Eosinophils % 5.6 % (0-4.4); Hematocrit 38.7 % (36.0-45.0); Lymphocytes % 41.1 % (15.3-44.8); MCH 36.1 pg (27.0-35.0); MCV 105.7 fL (80-100); Monocytes % 8.3 % (3.3-12.3); RBC Red Blood Cell Count 3.66 M/uL (3.86-4.86)
[2018-06-08 05:35] LABS: Magnesium 2.1 mg/dL (1.8-2.4); Potassium 3.9 mmol/L (3.5-5.1)
[2018-06-08] MEDS: ACETAMINOPHEN 500 MG TAB PO PRN ×2 (05:48→10:12)
[2018-06-08] MEDS: PANTOPRAZOLE 40MG TABLET PO SCH (05:49)
[2018-06-08] MEDS ORDERED: INSULIN -REGULAR HUMAN 50 UNIT/0.5 ML ML SQ SCH (07:30)
--- NOTE | 2018-06-08 08:45 | P.PN ---
Subjective Date of Service: 06/08/18 Primary Care Provider: Dr. Dallas; Cardiology-Dr. Shook Chief Complaint: Chest pain Subjective: Doing well Physical Examination - Vital Signs Temperature: 97.4 F Blood Pressure: 115/55 Pulse: 62 Respirations: 18 Pulse Ox (%): 97 - Physical Exam General: Alert, In no apparent distress, Oriented x3, Cooperative HEENT: Atraumatic Neck: Supple Respiratory: Clear to auscultation bilaterally, Normal air movement Cardiovascular: Normal pulses, Regular rate/rhythm Gastrointestinal: Normal bowel sounds, Soft and benign, Non-distended, No tenderness, No masses, No rebound, No guarding Musculoskeletal: No erythema, No tenderness, No warmth Integumentary: No tenderness/swelling, No erythema, No warmth, No cyanosis Neurological: Normal speech, Normal strength at 5/5 x4 extr, Normal tone - Studies Medications List Reviewed: Yes Assessment & Plan - Problems (Diagnosis) (1) Obesity Current Visit: Yes Status: Chronic Plan: Will continue to address lifestyle modification education. Qualifiers: Obesity type: due to excess calories Obesity classification: adult class 1 (BMI 30 - 34.9) Serious obesity comorbidity presence: with serious comorbidity Body mass index: BMI 31.0-31.9 Qualified Code(s): E66.09 - Other obesity due to excess calories; Z68.31 - Body mass index (BMI) 31.0-31.9, adult (2) CAD (coronary artery disease) Current Visit: Yes Status: Chronic Plan: Cardiology has evaluated patient. Patient with unstable angina with history of heart catheterization. Cardiology recommends heart catheterization tomorrow to further assess. Patient may require stents or CABG. Await findings. Continue with medication. Patient with history of heart catheterization done in October 2016. Moderate disease was identified. At that time findings showed 30% stenosis to the right RCA, 20% stenosis to the left RCA. Left dominant system 60-70% up to OM1 and 30 % ostial LAD. No stent was placed at that time. Qualifiers: Coronary Disease-Associated Artery/Lesion type: [place] artery [place] vs. transplanted heart: [place] heart Associated angina: with unstable angina Qualified Code(s): I25.110 - Atherosclerotic heart disease of [place] coronary artery with unstable angina pectoris (3) Chest pain Onset Date: 08/22/16 Current Visit: No Status: Acute Plan: Patient with unstable angina. Continue with plan of care for heart catheterization tomorrow. Qualifiers: Chest pain type: precordial pain Qualified Code(s): R07.2 - Precordial pain (4) Diabetes mellitus Onset Date: 10/01/16 Current Visit: No Status: Chronic Plan: Hemoglobin A1c 11.0. Diabetes needs to be better controlled. Will continue with insulin sliding scale. Qualifiers: Diabetes mellitus type: type 2 Diabetes mellitus ferry terminal agent insulin use: without ferry terminal agent use Diabetes mellitus complication status: with other specified complication Qualified Code(s): E11.69 - Type 2 diabetes mellitus with other specified complication (5) Hypertension Onset Date: 10/01/16 Current Visit: No Status: Chronic Plan: Continue with metoprolol. Lisinopril currently on hold. Qualifiers: Hypertension type: essential hypertension Qualified Code(s): I10 - Essential (primary) hypertension (6) Hyperlipidemia Current Visit: Yes Status: Chronic Plan: Continue with statin medication. LDL elevated. Qualifiers: Hyperlipidemia type: mixed hyperlipidemia Qualified Code(s): E78.2 - Mixed hyperlipidemia (7) GERD (gastroesophageal reflux disease) Current Visit: Yes Status: Suspected Plan: Will continue PPI. Qualifiers: Esophagitis presence: esophagitis presence not specified Qualified Code(s) : K21.9 - Gastro-esophageal reflux disease without esophagitis (8) Unstable angina Current Visit: Yes Status: Acute Plan: Continue as above. Heart catheterization planned for tomorrow. Discharge Plan: Home Plan to discharge in: 48 Hours Time Spent Managing Pts Care (In Minutes): 55
[2018-06-08] MEDS: HOME MED 1 EA UNK (Gabapentin [Gralise] 300 MG) PO SCH (09:00)
[2018-06-08] MEDS: METOPROLOL TAR 50 MG TAB PO SCH ×2 (10:11→22:13)
[2018-06-08] MEDS: ASPIRIN EC 81 MG TAB PO SCH (10:13)
[2018-06-08] MEDS: ENOXAPARIN 80 MG/0.8 ML SQ SCH ×2 (10:14→22:15)
--- NOTE | 2018-06-08 16:25 | PN ---
Ms. Calderon seems to feel a little better today. She has no enzyme evidence of myocardial necrosis. I do think we are dealing with unstable angina. We will do a cardiac cath tomorrow, put a stent in if it is necessary. I agree with Dr. Urrutia' initiation of statin therapy. Thank you very much for your kind referral of Ms. Calderon. I will follow her with you. MARIAM/RIANNA Voice ID: [id number] Report ID: [id number]
[2018-06-08] MEDS: ATORVASTATIN 40 MG TAB PO SCH (22:13)
[2018-06-09] MEDS: PANTOPRAZOLE 40MG TABLET PO SCH (05:07)
[2018-06-09 05:10] LABS: Absolute Neutrophil 5.5 K/uL (1.8-8.0); Basophils % 0.6 % (0-1.3); Eosinophils % 5.9 % (0-4.4); Hematocrit 38.9 % (36.0-45.0); Lymphocytes % 35.8 % (15.3-44.8); MCH 36.1 pg (27.0-35.0); MCV 105.9 fL (80-100); Monocytes % 8.6 % (3.3-12.3); RBC Red Blood Cell Count 3.67 M/uL (3.86-4.86)
[2018-06-09 05:34] LABS: BUN Blood Urea Nitrogen 10 mg/dL (7-18); Bicarbonate 27 mmol/L (21-32); Glucose Level 199 mg/dL (74-106); Potassium 3.8 mmol/L (3.5-5.1); Sodium Level 138 mmol/L (136-145)
[2018-06-09 06:19] VITALS: BMI 30.7
[2018-06-09] MEDS: INSULIN -REGULAR HUMAN 50 UNIT/0.5 ML ML SQ SCH ×4 (07:30→22:17)
[2018-06-09] MEDS: HOME MED 1 EA UNK (Gabapentin [Gralise] 300 MG) PO SCH (08:04)
[2018-06-09] MEDS: ENOXAPARIN 80 MG/0.8 ML SQ SCH (08:07)
[2018-06-09] MEDS: METOPROLOL TAR 50 MG TAB PO SCH ×2 (08:47→22:17)
[2018-06-09] MEDS ORDERED: HEPARIN 5000 UNIT/ML 1 ML VIAL ONE (08:54)
[2018-06-09] MEDS ORDERED: NICARDIPINE HCL 25 MG/10 ML IV ONE (08:54)
[2018-06-09] MEDS ORDERED: ATROPINE SULF 1 MG/10 ML SYR IV ONE (08:54)
[2018-06-09] MEDS ORDERED: NA CHLORIDE 0.9% 50 ML ONE (08:54)
[2018-06-09] MEDS ORDERED: LIDOCAINE 1% MPF 2 ML AMPULE ONE ×2 (08:54→10:08)
[2018-06-09] MEDS ORDERED: NITROGLYCERIN/D5W 25 MG/250 ML BTL IV ONE (08:54)
[2018-06-09] MEDS ORDERED: HEPA 1000U/500MLS 2,000 UNIT/1,000 ML BAG IV ONE (08:56)
[2018-06-09] MEDS ORDERED: FENTANYL CITR 100 MCG/2 ML ONE ×2 (09:30→11:20)
[2018-06-09] MEDS ORDERED: NA CHLORIDE 0.9% 500 ML ONE (09:30)
[2018-06-09] MEDS ORDERED: MIDAZOLAM HCL 2 MG/2 ML INJ ONE (09:30)
[2018-06-09] MEDS ORDERED: PRASUGREL (EFFIENT) 10 MG TAB ONE (10:49)
--- NOTE | 2018-06-09 11:48 | ECHO ---
HEIGHT: 5 ft 1 in WEIGHT: 162 lb 8 oz DATE OF STUDY: 06/09/[address]: 2-DIMENSIONAL: YES M.MODE: YES DOPPLER: YES COLOR FLOW: YES TDS: NO PORTABLE: NO DEFINITY: NO BUBBLE STUDY: NO DIAGNOSIS: CHEST PAIN CARDIAC HISTORY: CATHERIZATION: NO SURGERY: NO PROSTHETIC VALVE: NO PACEMAKER: NO MEASUREMENTS (cm) DIASTOLIC (NORMALS) SYSTOLIC (NORMALS) IVSd 1.0 (0.6-1.2) LA Diam 3.5 (1.9-4.0) LVEF 65% LVIDd 5.0 (3.5-5.7) LVIDs 3.2 (2.0-3.5) %FS 36% LVPWd 1.0 (0.6-1.2) Ao Diam 2.5 (2.0-3.7) 2 DIMENSIONAL ASSESSMENT: RIGHT ATRIUM: NORMAL LEFT ATRIUM: NORMAL RIGHT VENTRICLE: NORMAL LEFT VENTRICLE: NORMAL TRICUSPID VALVE: NORMAL MITRAL VALVE: NORMAL PULMONIC VALVE: NORMAL AORTIC VALVE: NORMAL PERICARDIAL EFFUSION: NONE AORTIC ROOT: NORMAL LEFT VENTRICULAR WALL MOTION: NORMAL. DOPPLER/COLOR FLOW: MILD MITRAL REGURGITATION AND TRICUSPID REGURGITATION. NORMAL RIGHT VENTRICULAR SYSTOLIC PRESSURE. COMMENTS: NORMAL 2D ECHOCARDIOGRAM. MILD MITRAL REGURGITATION AND TRICUSPID REGURGITATION. TECHNOLOGIST: SARAH GOMEZ RDCS
--- NOTE | 2018-06-09 16:09 | P.PN ---
Subjective Date of Service: 06/09/18 Primary Care Provider: Dr. Dallas; Cardiology-Dr. Shook Chief Complaint: Chest pain Subjective: Doing well Physical Examination - Vital Signs Temperature: 98.2 F Blood Pressure: 162/72 Pulse: 54 Respirations: 14 Pulse Ox (%): 91 - Physical Exam General: Alert, In no apparent distress, Oriented x3, Cooperative HEENT: Atraumatic Neck: Supple Respiratory: Clear to auscultation bilaterally, Normal air movement Cardiovascular: Normal pulses, Regular rate/rhythm Gastrointestinal: Normal bowel sounds, Soft and benign, Non-distended, No tenderness, No masses, No rebound, No guarding Musculoskeletal: No erythema, No tenderness, No warmth Integumentary: No tenderness/swelling, No erythema, No warmth, No cyanosis Neurological: Normal speech, Normal strength at 5/5 x4 extr, Normal tone - Studies Medications List Reviewed: Yes Assessment & Plan - Problems (Diagnosis) (1) Obesity Onset Date: 06/09/18 Current Visit: Yes Status: Chronic Plan: Will continue to address lifestyle modification education. Patient had heart catheterization today. A stent was placed. Patient be discharged tomorrow. Patient will continue with recommendations by Cardiology. Strict diabetic control will be required. Patient will likely need insulin at discharge. I will turn the service over to Dr. Hopson tomorrow. I will go over the plan of care with him. Qualifiers: Obesity type: due to excess calories Obesity classification: adult class 1 (BMI 30 - 34.9) Serious obesity comorbidity presence: with serious comorbidity Body mass index: BMI 31.0-31.9 Qualified Code(s): E66.09 - Other obesity due to excess calories; Z68.31 - Body mass index (BMI) 31.0-31.9, adult (2) CAD (coronary artery disease) Onset Date: 06/09/18 Current Visit: Yes Status: Chronic Plan: Patient had heart catheterization done. Stent was placed. Patient will continue with Cardiology recommendations. Anticipate discharge tomorrow. Qualifiers: Coronary Disease-Associated Artery/Lesion type: [place] artery [place] vs. transplanted heart: [place] heart Associated angina: with unstable angina Qualified Code(s): I25.110 - Atherosclerotic heart disease of [place] coronary artery with unstable angina pectoris (3) Chest pain Onset Date: 08/22/16 Current Visit: No Status: Acute Plan: Patient with unstable angina. Patient required stent. Continue as above. Qualifiers: Chest pain type: precordial pain Qualified Code(s): R07.2 - Precordial pain (4) Diabetes mellitus Onset Date: 10/01/16 Current Visit: No Status: Chronic Plan: Hemoglobin A1c 11.0. Diabetic diet and lifestyle modification education addressed in detail. Patient will likely need insulin at discharge. Recommendation for patient to see Endocrinology as an outpatient to further address. Qualifiers: Diabetes mellitus type: type 2 Diabetes mellitus terminal gauger supervisor insulin use: without retirement use Diabetes mellitus complication status: with other specified complication Qualified Code(s): E11.69 - Type 2 diabetes mellitus with other specified complication (5) Hypertension Onset Date: 10/01/16 Current Visit: No Status: Chronic Plan: Continue with metoprolol. Lisinopril currently on hold. Qualifiers: Hypertension type: essential hypertension Qualified Code(s): I10 - Essential (primary) hypertension (6) Hyperlipidemia Onset Date: 06/09/18 Current Visit: Yes Status: Chronic Plan: Continue with statin medication. LDL elevated. Qualifiers: Hyperlipidemia type: mixed hyperlipidemia Qualified Code(s): E78.2 - Mixed hyperlipidemia (7) GERD (gastroesophageal reflux disease) Onset Date: 06/09/18 Current Visit: Yes Status: Suspected Plan: Will continue PPI. Qualifiers: Esophagitis presence: esophagitis presence not specified Qualified Code(s) : K21.9 - Gastro-esophageal reflux disease without esophagitis (8) Unstable angina Onset Date: 06/09/18 Current Visit: Yes Status: Acute Plan: Continue as above. Heart catheterization done. Patient had stent placed. Continue with recommendations by Cardiology. Anticipate discharge tomorrow. Discharge Plan: Home Plan to discharge in: 24 Hours Time Spent Managing Pts Care (In Minutes): 55
[2018-06-09] MEDS ORDERED: ATORVASTATIN 80 MG TAB PO SCH (21:00)
--- NOTE | 2018-06-09 22:49 | OP ---
Surgeon: Eric Kingston MD Procedures: Left heart catheterization, coronary angiography, and percutaneous coronary intervention , a stent in an obtuse marginal coronary artery. Findings: The patient had [id number]-[id number] stenosis in her LAD not felt to be causing angina. She h ad a 90% irregular lesion in the obtuse marginal. This was stented; and after stent, residual stenos is was 0%. Procedure In Detail: The patient was brought to the cardiac kiln labourer in a fasting state, sedated wit h Versed and fentanyl. We attempted a radial approach. The artery was so small that the 0.021-inch guidewire would not thread, so we abandoned the radial approach. We never got as far as dilating or putting a sheath in it, just a 21-gauge needle. A TR Band was placed on it. We turned our attention to the right femoral artery. A 1% lidocaine was used to anesthetize the skin. The artery was enter ed using an 18-gauge needle, short J-wire, 4-Canadian sheath, modified Seldinger technique. We did ang iography of the left and right coronary with a JL-4 and 3DRC 4-Canadian respectively. After seeing the lesion, deciding to put a stent, we switched to a 6-Canadian sheath, gave Angiomax, demonstrated an ac tive clotting time greater than 300 seconds. We used an XB 3.5 guide with side holes directed to the left main ostium. The lesion was crossed with a Cookson wire. We then primarily stented the lesion using a 2.75 x 16 Synergy stent, inflated to 13 atmospheres. The angiographic result was excellent. At the end of the procedure, arteriotomy will be closed with Angio-Seal device. An arteriogram was d one of the right femoral artery through the 6-Canadian sheath. MARIAM/RIANNA Voice ID: [id number] Report ID: [id number]
[2018-06-10] MEDS: PANTOPRAZOLE 40MG TABLET PO SCH (05:23)
[2018-06-10 06:57] LABS: Absolute Lymphocytes (CBC) 3.2 K/uL (0.7-4.9); Absolute Monocytes 0.9 K/uL (0.1-1.3); Absolute Neutrophil 5.7 K/uL (1.8-8.0); Basophils % 0.5 % (0-1.3); Eosinophils % 3.8 % (0-4.4); Hematocrit 37.6 % (36.0-45.0); MCH 36.8 pg (27.0-35.0); MCV 104.5 fL (80-100); MPV 8.8 fL (7.6-11.3); Monocytes % 9.1 % (3.3-12.3)
[2018-06-10 07:16] LABS: BUN Blood Urea Nitrogen 10 mg/dL (7-18); Bicarbonate 28 mmol/L (21-32); Glucose Level 172 mg/dL (74-106); Magnesium 2.1 mg/dL (1.8-2.4); Sodium Level 138 mmol/L (136-145)
[2018-06-10] MEDS: INSULIN -REGULAR HUMAN 50 UNIT/0.5 ML ML SQ SCH ×3 (07:30→11:30)
[2018-06-10] MEDS: HOME MED 1 EA UNK (Gabapentin [Gralise] 300 MG) PO SCH (08:35)
[2018-06-10 08:56] VITALS: O2SAT 96
[2018-06-10] MEDS ORDERED: PRASUGREL (EFFIENT) 10 MG TAB PO SCH (09:00)
[2018-06-10] MEDS ORDERED: LOSARTAN POTASSIUM 50 MG TABLET PO SCH (09:00)
[2018-06-10] MEDS: METOPROLOL TAR 50 MG TAB PO SCH (09:45)
[2018-06-10] MEDS: ASPIRIN EC 81 MG TAB PO SCH (09:46)
--- NOTE | 2018-06-10 12:47 | P.DS ---
Admission Date: 06/06/18 Discharge Date: 06/10/18 Primary Care Provider: Dr. Dallas; Cardiology-Dr. Shook Disposition: ROUTINE DISCHARGE Discharge Condition: GOOD Reason for Admission: Chest pain - Problems (1) CAD (coronary artery disease) Onset Date: 06/09/18 Current Visit: Yes Status: Chronic Qualifiers: Coronary Disease-Associated Artery/Lesion type: [place] artery [place] vs. transplanted heart: [place] heart Associated angina: with unstable angina Qualified Code(s): I25.110 - Atherosclerotic heart disease of [place] coronary artery with unstable angina pectoris (2) Chest pain Onset Date: 08/22/16 Current Visit: No Status: Acute Qualifiers: Chest pain type: precordial pain Qualified Code(s): R07.2 - Precordial pain (3) Diabetes mellitus Onset Date: 10/01/16 Current Visit: No Status: Chronic Qualifiers: Diabetes mellitus type: type 2 Diabetes mellitus intermodal dispatcher insulin use: without intermodal dispatcher use Diabetes mellitus complication status: with other specified complication Qualified Code(s): E11.69 - Type 2 diabetes mellitus with other specified complication (4) Hypertension Onset Date: 10/01/16 Current Visit: No Status: Chronic Qualifiers: Hypertension type: essential hypertension Qualified Code(s): I10 - Essential (primary) hypertension Brief History of Present Illness: Ms Calderon is a 67-year-old woman with history of hypertension, diabetes mellitus types 2, insulin-dependent, coronary artery disease status post cardiac catheterization last year which shows moderate coronary artery disease without stenting procedure. Today around 5 o'clock p.m. she had a severe chest pain episode. The pain was located in substernal area, not radiated, associated with shortness of breath and diaphoresis, 10/10 of intensity, described as pressure sensation. She denied any nausea vomiting. The patient then was transferred by EMT to the hospital, she received 1 nitro sublingual in the ambulance, subsequently the pain improved but did not resolve. Once in ER, she had 2 more nitro sublingual, and after the last one, the pain subsided. Initial troponin I is negative, EKG shows sinus tachycardia with isolated PVCs, Q-waves noted in inferior leads. Hospital Course: The patient was evaluated by retail coverage merchandiser team who recommend to left heart catheterization. The procedure was done successfully and was found 90% stenosis of the obtuse marginal, she had a stent placed. The patient did not repeat chest pain episode that her stay. She will be discharged home in stable condition. Follow-up with retail coverage merchandiser in 1-2 weeks. Vital Signs/Physical Exam: Temp Pulse Resp BP Pulse Ox 97.4 F 65 18 135/63 93 06/10/18 08:00 06/10/18 09:45 06/10/18 08:00 06/10/18 09:45 06/10/18 08:00 General: Alert, In no apparent distress Respiratory: Clear to auscultation bilaterally, Normal air movement Cardiovascular: Regular rate/rhythm, Normal S1 S2 Gastrointestinal: Normal bowel sounds, No tenderness Musculoskeletal: No tenderness Integumentary: No rashes Neurological: Normal speech, Normal tone, Normal affect Laboratory Data at Discharge: WBC 10.3 K/uL (4.3-10.9) 06/10/18 05:30 Hgb 13.3 g/dL (12.0-15.0) 06/10/18 05:30 Hct 37.6 % (36.0-45.0) 06/10/18 05:30 Plt Count 244 K/uL (152-406) 06/10/18 05:30 PT 12.4 SECONDS (9.5-12.5) 06/06/18 17:35 INR 1.05 06/06/18 17:35 APTT 27.1 SECONDS (24.3-36.9) 06/06/18 17:35 Sodium 138 mmol/L (136-145) 06/10/18 05:30 Potassium 4.0 mmol/L (3.5-5.1) 06/10/18 05:30 BUN 10 mg/dL (7-18) 06/10/18 05:30 Creatinine 0.60 mg/dL (0.55-1.3) 06/10/18 05:30 Glucose 172 mg/dL (74-106) H 06/10/18 05:30 Magnesium 2.1 mg/dL (1.8-2.4) 06/10/18 05:30 Total Bilirubin 0.5 mg/dL (0.2-1.0) 06/06/18 17:35 AST 74 U/L (15-37) H 06/06/18 17:35 ALT 40 U/L (12-78) 06/06/18 17:35 Alkaline Phosphatase 104 U/L (45-117) 06/06/18 17:35 Troponin I 0.02 ng/mL (0.0-0.045) 06/07/18 13:52 Triglycerides 181 mg/dL (<150) H 06/07/18 04:45 Cholesterol 211 mg/dL (<200) H 06/07/18 04:45 HDL Cholesterol 38 mg/dL (40-60) L 06/07/18 04:45 Cholesterol/HDL Ratio 5.55 06/07/18 04:45 Lipase 153 U/L (73-393) 06/06/18 17:35 Home Medications: RX: Aspirin [Aspirin EC 81 MG] 81 mg PO DAILY 05/07/18 RX: Gabapentin [Gralise] 300 mg PO DAILY 05/07/18 RX: Metformin HCl 850 mg PO BID 05/07/18 RX: Atorvastatin Calcium [Lipitor] 80 mg PO BEDTIME #30 tab 06/10/18 RX: Losartan Potassium [Cozaar*] 25 mg PO DAILY #30 tablet 06/10/18 RX: Metoprolol Tartrate [Lopressor*] 50 mg PO BID #60 tab 06/10/18 RX: Pantoprazole [Protonix Tab*] 40 mg PO DAILYAC #30 tab 06/10/18 RX: Prasugrel Hydrochloride [Effient*] 10 mg PO DAILY #30 tab 06/10/18 New Medications: RX: Atorvastatin Calcium [Lipitor] 80 mg PO BEDTIME #30 tab RX: Losartan Potassium [Cozaar*] 25 mg PO DAILY #30 tablet RX: Metoprolol Tartrate [Lopressor*] 50 mg PO BID #60 tab RX: Pantoprazole [Protonix Tab*] 40 mg PO DAILYAC #30 tab RX: Prasugrel Hydrochloride [Effient*] 10 mg PO DAILY #30 tab Diet: ADA Activity: Fall precautions Followup: Eric Kingston MD [ACTIVE - CAN ADMIT] - 1-2 Weeks Time spent managing pt's care (in minutes): 40
[2018-06-10 12:52] VITALS: BP 133/65; TEMP 97.2
--- NOTE | 2018-06-11 06:04 | PN ---
Date of Progress Note: 06/10/2018 History Of Present Illness: Ms. Calderon was admitted by Dr. Urrutia on 06/06/2018. Dr. Kingston performe d a heart catheterization on 06/09/2018. She underwent an OM stent. She had a patent stent in the L AD. She did very well overnight. The procedure was done through the right wrist. No hematoma. No complications. No telemetry issues. The patient will be going home today and follow up in 2 weeks. She will be going home on beta-blockers, aspirin, Effient, and a statin. MARGUERITE/RIANNA Voice ID: [id number] Report ID: [id number]
== END 2018-06-10 13:03 | disposition home or self-care (01) ==
LOC: ER 17:30 → ERHOLD 19:48 → 2ND 21:35
PROVIDERS: ADMIT Internal Medicine; ATTEND Internal Medicine
DX: I25.110 Atherosclerotic heart disease of native coronary artery with unstable angina pectoris (principal); E11.9 Type 2 diabetes mellitus without complications; I10 Essential (primary) hypertension; E78.5 Hyperlipidemia, unspecified; E66.9 Obesity, unspecified; Z68.30 Body mass index [BMI] 30.0-30.9, adult
CPT/HCPCS: 36415 ×4; 71045; 80048 ×5; 80061; 80076; 82550; 82553; 82962 ×19; 83036; 83690; 83735 ×4; 83880; 84439; 84443; 84484 ×4; 85025 ×5; 85347 ×2; 85610; 85730; 93005 ×2; 93306; 93454; 94760 ×6; 96361; 96372; 96374; 99285; C1725; C1893; C9600; J0583; J1644; J1650 ×5; J2001 ×2; J2250; J3010 ×3; J7030; G0378

== ENCOUNTER 2019-03-16 21:27 | Inpatient (IN) | payer OTHER ==
[2019-03-16] MEDS ORDERED: ASPIRIN 81 MG CHEWABLE TABLET ONE (22:26)
[2019-03-16] MEDS ORDERED: ONDANSETRON 4 MG/2 ML VIAL ONE (22:27)
[2019-03-16] MEDS ORDERED: MORPHINE 4 MG/ML SYR ONE (22:27)
[2019-03-16 22:45] LABS: Protime INR 0.96
[2019-03-16] MEDS ORDERED: ALBUTEROL 2.5 MG/3 ML NEB SOL ONE (22:46)
[2019-03-16] MEDS ORDERED: IPRATROPIUM BROM 0.5MG/2.5ML ONE (22:46)
[2019-03-16 22:48] LABS: Absolute Lymphocytes (CBC) 3.7 K/uL (0.7-4.9); Absolute Monocytes 0.5 K/uL (0.1-1.3); Absolute Neutrophil 4.4 K/uL (1.8-8.0); Basophils % 0.3 % (0-1.3); Eosinophils % 4.1 % (0-4.4); Hematocrit 21.6 % (36.0-45.0); Lymphocytes % 41.3 % (15.3-44.8); MPV 9.4 fL (7.6-11.3); Monocytes % 5.1 % (3.3-12.3); RBC Red Blood Cell Count 1.63 M/uL (3.86-4.86)
[2019-03-16 23:23] LABS: Albumin 3.2 g/dL (3.4-5.0); Bilirubin Direct 0.2 mg/dL (0-0.2); Bilirubin Total 0.8 mg/dL (0.2-1.0); Magnesium 1.9 mg/dL (1.8-2.4); Protein, Total 7.5 g/dL (6.4-8.2); Troponin (Emerg Dept Use Only) 0.03 ng/mL (0.0-0.045)
[2019-03-16 23:28] LABS: Potassium 4.2 mmol/L (3.5-5.1)
[2019-03-16 23:37] LABS: Blood Morphology Comment NOTED (NOT SEEN); Macrocytosis 2+; Platelet Estimate ADEQ; Urine White Blood Cell Casts OK
[2019-03-16] MEDS ORDERED: MEPERIDINE HCL 50 MG/ML AMP ONE (23:50)
[2019-03-17] MEDS ORDERED: METOPROLOL TARTRATE 5 MG/5 ML INJ IV ONE (00:01)
[2019-03-17] MEDS ORDERED: NITROGLYCERIN 0.4 MG/TAB SL ONE (00:03)
--- NOTE | 2019-03-17 00:30 | ER ---
Nurse's Notes [facility] Name: Ivet Calderon Age: 68 yrs Sex: Female : 1950 Arrival Date: 03/16/2019 Time: 21:28 Bed 3 Private MD: Diagnosis: Chest pain. Severe headache. Anemia Presentation: 03/16 21:39 Presenting complaint: Patient states: chest pain that radiates to back since Saturday, tl2 gets worse at night and wakes her up. Reports chest pain and shortness of breath. Denies N/V. Transition of care: patient was not received from another setting of care. Onset of symptoms was March 13, 2019. Risk Assessment: Do you want to hurt yourself or someone else? Patient reports no desire to harm self or others. Initial Sepsis Screen: Does the patient meet any 2 criteria? No. Patient's initial sepsis screen is negative. Does the patient have a suspected source of infection? No. Patient's initial sepsis screen is negative. Care prior to arrival: None. 21:39 Method Of Arrival: Wheelchair tl2 21:39 Acuity: DORYS 3 tl2 Triage Assessment: 21:41 General: Appears distressed, uncomfortable, Behavior is cooperative, appropriate for tl2 age, anxious. Pain: Complains of pain in chest Pain radiates to left scapular area and right scapular area Pain currently is 9 out of 10 on a pain scale. Neuro: Level of Consciousness is awake, alert, obeys commands, Oriented to person, place, time, situation. Cardiovascular: Chest pain is described as diffuse, quality is sharp, is located in left anterior posterior radiates to left scapula episodes are intermittent. Respiratory: Reports shortness of breath Airway is patent Respiratory effort is even, unlabored, Respiratory pattern is regular, symmetrical, Onset: The symptoms/episode began/occurred 4 days ago, the patient has moderate shortness of breath. GI: No signs and/or symptoms were reported involving the gastrointestinal system. : No signs and/or symptoms were reported regarding the genitourinary system. Derm: Skin is pink, warm \T\ dry. Historical: - Allergies: 21:41 No Known Allergies; tl2 - Home Meds: 21:41 aspirin 81 mg Oral chew 1 tab once daily [Active]; Lopressor 50 mg Oral tab 1 tab once tl2 daily [Active]; metformin 500 mg Oral tab 1 tab 2 times per day [Active]; Plavix Oral [Active]; - PMHx: 21:41 Diabetes - NIDDM; Hypertension; tl2 - PSHx: 21:41 Heart stents; tl2 - Immunization history:: Adult Immunizations up to date. - Social history:: Smoking status: Patient/guardian denies using tobacco. - Ebola Screening: : No symptoms or risks identified at this time. Screenin:43 Abuse screen: Denies threats or abuse. Nutritional screening: No deficits noted. tl2 Tuberculosis screening: No symptoms or risk factors identified. Fall Risk None identified. Assessment: 21:41 General: see triage assessment. tl2 23:00 Reassessment: Patient appears in no apparent distress at this time. No changes from tl2 previously documented assessment. Patient and/or family updated on plan of care and expected duration. Pain level reassessed. Patient is alert, oriented x 3, equal unlabored respirations, skin warm/dry/pink. RT at bedside for ABG. 23:02 Reassessment: Dr. Cohen notified of abnormal labs: D-dimer 1352, Hgb 7.6. tl2 23:16 Reassessment: pt states that the breathing treatment has helped slightly, but it still tl2 feels like she can't get a full breath. 23:40 Reassessment: pt became tachycardic and c/o increased pain in chest, head and back tl2 after rectal exam. MD notified of change in VS. Repeat EKG obtained and pt moved to trauma room. 50 mg Demerol given and pt became flushed and clammy, HR remained elevated. and charge nurse at bedside. 23:51 Reassessment: pt's HR lowered after nitro SL administration. pt stated that the demerol tl2 was working and she appeared calm and relaxed. O2 sat dropped to 88% RA, MD ordered for a NRB. O2 sat increased to 100%. 04 00:30 Reassessment: Patient appears in no apparent distress at this time. Patient and/or tl2 family updated on plan of care and expected duration. Pain level reassessed. Patient is alert, oriented x 3, equal unlabored respirations, skin warm/dry/pink. Patient states feeling better. 02:00 Reassessment: Patient appears in no apparent distress at this time. Patient and/or tl2 family updated on plan of care and expected duration. Pain level reassessed. pt appears to be sleeping, RR even and unlabored. 02:36 Cardiovascular: Rhythm is sinus rhythm. tl2 03:09 Reassessment: Pt stable and ready for transport to floor. tl2 Vital Signs: 03/16 21:30 BP 185 / 59 LA (/lg); Pulse 81; Resp 22; Temp 98.9(O); Pulse Ox 100% on R/A; Weight tl2 73.48 kg; Height 5 ft. 1 in. (154.94 cm); Pain 10/10; 23:00 Pulse 91; Resp 20; Pulse Ox 100% on Nebulizer Mask; tl2 23:16 BP 161 / 42; Pulse 93; Resp 18; Pulse Ox 97% on R/A; tl2 23:40 BP 138 / 72; Pulse 88; Resp 18; Pulse Ox 100% on 15% Nebulizer Mask; mg2 23:44 BP 193 / 95; Pulse 135; Resp 22; Pulse Ox 88% on R/A; tl2 23:53 BP 188 / 96; Pulse 92; Resp 20; Temp 98(O); Pulse Ox 100% on Non-rebreather mask; tl2 04 00:04 BP 129 / 74; Pulse 81; Resp 17; Pulse Ox 100% on Non-rebreather mask; tl2 01:27 BP 144 / 56; Pulse 75; Resp 17; Pulse Ox 96% on R/A; tl2 02:36 BP 132 / 50; Pulse 78; Resp 16; Pulse Ox 97% on R/A; tl2 03/16 21:30 Body Mass Index 30.61 (73.48 kg, 154.94 cm) tl2 Vitals: 03/16 23:00 Cardiac Rhythm Assessment Sinus rhythm. tl2 ED Course: 21:28 Patient arrived in ED. am2 21:30 Patient maintains SpO2 saturation greater than 95% on room air. jp3 21:30 Patient has correct armband on for positive identification. jp3 21:34 Bed in low position. Call light in reach. Side rails up X 1. Side rails up X2. Warm jp3 blanket given. manager spring on. Pulse ox on. NIBP on. 21:40 Triage completed. tl2 21:41 Arm band placed on right wrist. EKG completed in triage. Results shown to MD. tl2 21:51 Cali Cohen MD is Attending Physician. pkl 21:53 Inserted saline lock: 22 gauge in right antecubital area, using aseptic technique. tl2 Blood collected. 22:16 Deepika Lozano RN is Primary Nurse. tl2 23:02 Notified ED physician of a critical lab result(s). D-dimer 1352, Hgb 7.6. tl2 23:40 Served as a inspector heating and refrigeration during rectal exam. mg2 03/17 00:26 Pop Wharton MD is Hospitalizing Provider. pkl 00:35 IV is swollen, without good blood return, IV discontinued, intact, bleeding controlled, tl2 No redness/swelling at site. Pressure dressing applied. 00:41 Inserted saline lock: 20 gauge in left antecubital area, using aseptic technique. tl2 placed by JOSE Akbar 01:20 Pop Wharton MD is Hospitalizing Provider. pkl 03:09 Patient admitted, IV remains in place. tl2 Administered Medications: 03 22:17 Drug: morphine 4 mg Route: IVP; Site: right antecubital; tl2 23:00 Follow up: Response: No adverse reaction; Pain is unchanged, physician notified tl2 22:17 Drug: Zofran 4 mg Route: IVP; Site: right antecubital; tl2 23:00 Follow up: Response: No adverse reaction tl2 22:17 Drug: Aspirin 162 mg Route: PO; tl2 23:00 Follow up: Response: No adverse reaction tl2 22:33 Drug: Albuterol - atroVENT (3:1) (2.5 mg - 0.5 mg) 3 ml Route: Nebulizer; tl2 23:00 Follow up: Response: No adverse reaction; Marked relief of symptoms tl2 23:40 Drug: Demerol 50 mg Route: IVP; Site: right antecubital; mg2 03/17 00:30 Follow up: Response: No adverse reaction; Pain is decreased tl2 03/16 23:50 Drug: Nitroglycerin 0.4 mg Route: Sublingual; mg2 03/17 00:30 Follow up: Response: No adverse reaction; Blood pressure is lowered tl2 Point of Care Testing: Guaiac: 03/16 23:40 Stool Guaiac: Negative; Stool Hemoccult Control: Pass; mg2 Outcome: 03/17 00:28 Decision to Hospitalize by Provider. pkl 01:22 Decision to Hospitalize by Provider. pkl 03:09 Admitted to Tele accompanied by tech, via wheelchair, room 422, with chart, Report tl2 called to JOSE Alvarado 03:09 Condition: stable 03:09 Discharge instructions given to patient, Instructed on the need for admit. 03:15 Patient left the ED. tl2 Signatures: Cali Cohen MD MD pkl Deepika Lozano RN RN tl2 Ml Villavicencio am2 Lyle Hull RN RN mg2 Yariel Juarez jp3 Corrections: (The following items were deleted from the chart) 03/16 22:06 21:30 BP 185 / 59 L Arm Large; Pulse 81bpm; Pulse Ox 100% RA; Temp 98.9F Oral; Pain tl2 10/10; jp3 23:54 23:53 BP 188 / 96; Pulse 92bpm; Resp 20bpm; Pulse Ox 100% Non-rebreather mask; tl2 tl2
--- NOTE | 2019-03-17 00:31 | EDPHYS ---
Physician Documentation [facility] Name: Ivet Calderon Age: 68 yrs Sex: Female : 1950 Arrival Date: 03/16/2019 Time: 21:28 Bed 3 Private MD: ED Physician Cali Cohen HPI: 03/16 22:00 This 68 yrs old Female presents to ER via Wheelchair with complaints of pkl Breathing Difficulty. 22:00 The patient or guardian reports chest pain that is located primarily in the substernal pkl area. Onset: 4 day(s) ago. The pain radiates to back. Associated signs and symptoms: Pertinent positives: shortness of breath. The chest pain is described as a pressure. Historical: - Allergies: 21:41 No Known Allergies; tl2 - Home Meds: 21:41 aspirin 81 mg Oral chew 1 tab once daily [Active]; Lopressor 50 mg Oral tab 1 tab once tl2 daily [Active]; metformin 500 mg Oral tab 1 tab 2 times per day [Active]; Plavix Oral [Active]; - PMHx: 21:41 Diabetes - NIDDM; Hypertension; tl2 - PSHx: 21:41 Heart stents; tl2 - Immunization history:: Adult Immunizations up to date. - Social history:: Smoking status: Patient/guardian denies using tobacco. - Ebola Screening: : No symptoms or risks identified at this time. ROS: 22:00 Eyes: Negative for injury, pain, redness, and discharge, ENT: Negative for injury, pkl pain, and discharge, Neck: Negative for injury, pain, and swelling. 22:00 Cardiovascular: Positive for chest pain. 22:00 Respiratory: Positive for shortness of breath. 22:00 Abdomen/GI: Negative for abdominal pain, nausea, vomiting, and diarrhea. 22:00 Back: Negative for pain at rest. 22:00 : Negative for urinary symptoms. 22:00 MS/extremity: Negative for acute changes. 22:00 Skin: Negative for rash. 22:00 Neuro: Negative for altered mental status. Exam: 22:00 Head/Face: Normocephalic, atraumatic. Eyes: Pupils equal round and reactive to light, pkl extra-ocular motions intact. Lids and lashes normal. Conjunctiva and sclera are non-icteric and not injected. Cornea within normal limits. Periorbital areas with no swelling, redness, or edema. ENT: Nares patent. No nasal discharge, no septal abnormalities noted. Tympanic membranes are normal and external auditory canals are clear. Oropharynx with no redness, swelling, or masses, exudates, or evidence of obstruction, uvula midline. Mucous membranes moist. Neck: Trachea midline, no thyromegaly or masses palpated, and no cervical lymphadenopathy. Supple, full range of motion without nuchal rigidity, or vertebral point tenderness. No Meningismus. Chest/axilla: Normal chest wall appearance and motion. Nontender with no deformity. No lesions are appreciated. Cardiovascular: Regular rate and rhythm with a normal S1 and S2. No gallops, murmurs, or rubs. Normal PMI, no JVD. No pulse deficits. Respiratory: Lungs have equal breath sounds bilaterally, clear to auscultation and percussion. No rales, rhonchi or wheezes noted. No increased work of breathing, no retractions or nasal flaring. Abdomen/GI: Soft, non-tender, with normal bowel sounds. No distension or tympany. No guarding or rebound. No evidence of tenderness throughout. Back: No spinal tenderness. No costovertebral tenderness. Full range of motion. Skin: Warm, dry with normal turgor. Normal color with no rashes, no lesions, and no evidence of cellulitis. MS/ Extremity: Pulses equal, no cyanosis. Neurovascular intact. Full, normal range of motion. Neuro: Awake and alert, GCS 15, oriented to person, place, time, and situation. Cranial nerves II-XII grossly intact. Motor strength 5/5 in all extremities. Sensory grossly intact. Cerebellar exam normal. Normal gait. 23:39 Abdomen/GI: Rectal exam: Stool: guaiac negative, the exam is chaperoned by the nurse. [facility] Vital Signs: 21:30 BP 185 / 59 LA (/lg); Pulse 81; Resp 22; Temp 98.9(O); Pulse Ox 100% on R/A; Weight tl2 73.48 kg; Height 5 ft. 1 in. (154.94 cm); Pain 10/10; 23:00 Pulse 91; Resp 20; Pulse Ox 100% on Nebulizer Mask; tl2 23:16 BP 161 / 42; Pulse 93; Resp 18; Pulse Ox 97% on R/A; tl2 23:40 BP 138 / 72; Pulse 88; Resp 18; Pulse Ox 100% on 15% Nebulizer Mask; mg2 23:44 BP 193 / 95; Pulse 135; Resp 22; Pulse Ox 88% on R/A; tl2 23:53 BP 188 / 96; Pulse 92; Resp 20; Temp 98(O); Pulse Ox 100% on Non-rebreather mask; tl2 03/17 00:04 BP 129 / 74; Pulse 81; Resp 17; Pulse Ox 100% on Non-rebreather mask; tl2 01:27 BP 144 / 56; Pulse 75; Resp 17; Pulse Ox 96% on R/A; tl2 02:36 BP 132 / 50; Pulse 78; Resp 16; Pulse Ox 97% on R/A; tl2 03/16 21:30 Body Mass Index 30.61 (73.48 kg, 154.94 cm) tl2 MDM: 03/16 21:51 Patient medically screened. pkl 03/17 00:25 Data reviewed: vital signs, nurses notes, lab test result(s), EKG, radiologic studies, pkl CT scan, plain films. 03/16 21:57 Order name: Basic Metabolic Panel pkl 03/16 21:57 Order name: CBC with Diff pkl 03/16 21:57 Order name: LFT's pkl 03/16 21:57 Order name: Magnesium pkl 03/16 21:57 Order name: NT PRO-BNP pkl 03/16 21:57 Order name: PT-INR pkl 03/16 21:57 Order name: Troponin (emerg Dept Use Only) pkl 03/16 21:57 Order name: D-Dimer pkl 03/16 22:05 Order name: ABG pkl 03/16 22:54 Order name: Protime (+INR); Complete Time: 23:19 EDMS 03/16 22:54 Order name: D-Dimer; Complete Time: 23:19 EDMS 03/16 22:55 Order name: CBC with Automated Diff; Complete Time: 00:29 EDMS 03/16 23:25 Order name: Basic Metabolic Panel; Complete Time: 23:30 EDMS 03/16 23:25 Order name: Liver (Hepatic) Function; Complete Time: 23:30 EDMS 03/16 21:57 Order name: XRAY Chest (1 view) pkl 03/16 23:25 Order name: Troponin (Emerg Dept Use Only); Complete Time: 23:30 EDMS 03/16 23:25 Order name: NT PRO-BNP; Complete Time: 23:30 EDMS 03/16 23:25 Order name: Magnesium; Complete Time: 23:30 EDMS 03/16 23:29 Order name: Troponin (emerg Dept Use Only) tl2 03/16 23:33 Order name: CT Head Brain wo Cont pkl 03/16 23:38 Order name: CBC Smear Scan; Complete Time: 00:29 EDMS 03/16 23:50 Order name: TS mg2 03/17 00:42 Order name: Troponin (Emerg Dept Use Only); Complete Time: 01:16 EDMS 03/17 02:10 Order name: Type and Screen; Complete Time: 03:48 EDMS 03/16 21:57 Order name: EKG; Complete Time: 05:05 pkl 03/16 21:57 Order name: Cardiac monitoring; Complete Time: 21:59 pkl 03/16 21:57 Order name: EKG - Nurse/Tech; Complete Time: 21:59 pkl 03/16 21:57 Order name: IV Saline Lock; Complete Time: 21:59 pkl 03/16 21:57 Order name: Labs collected and sent; Complete Time: 21:59 pkl 03/16 21:57 Order name: O2 Per Protocol; Complete Time: 21:59 pkl 03/16 21:57 Order name: O2 Sat Monitoring; Complete Time: 21:59 pkl 03/16 23:29 Order name: EKG; Complete Time: 05:09 tl2 03/16 23:29 Order name: EKG - Nurse/Tech; Complete Time: 23:50 tl2 Administered Medications: 03/16 22:17 Drug: morphine 4 mg Route: IVP; Site: right antecubital; tl2 23:00 Follow up: Response: No adverse reaction; Pain is unchanged, physician notified tl2 22:17 Drug: Zofran 4 mg Route: IVP; Site: right antecubital; tl2 23:00 Follow up: Response: No adverse reaction tl2 22:17 Drug: Aspirin 162 mg Route: PO; tl2 23:00 Follow up: Response: No adverse reaction tl2 22:33 Drug: Albuterol - atroVENT (3:1) (2.5 mg - 0.5 mg) 3 ml Route: Nebulizer; tl2 23:00 Follow up: Response: No adverse reaction; Marked relief of symptoms tl2 23:40 Drug: Demerol 50 mg Route: IVP; Site: right antecubital; mg2 03/17 00:30 Follow up: Response: No adverse reaction; Pain is decreased tl2 03/16 23:50 Drug: Nitroglycerin 0.4 mg Route: Sublingual; mg2 03/17 00:30 Follow up: Response: No adverse reaction; Blood pressure is lowered tl2 Point of Care Testing: Guaiac: 03/16 23:40 Stool Guaiac: Negative; Stool Hemoccult Control: Pass; mg2 Disposition: 03/17 00:28 Critical Care:. pkl Disposition: 03/17/19 01:22 Hospitalization ordered by Pop Wharton for Inpatient Admission. Preliminary diagnosis is Chest pain. Severe headache. Anemia. - Bed requested for Telemetry/MedSurg (Inpatient). - Status is Inpatient Admission. tl2 - Condition is Stable. - Problem is new. - Symptoms have improved. UTI on Admission? No Critical care time excluding procedures: 00:28 Critical care time: Bedside Care: 30 minutes, Consultation: 10 minutes. Total time: 40 pkl minutes Signatures: Dispatcher [employer] EDCali Rodriguez MD MD pkl Emperatriz Givens RN RN cg Deepika Lozano RN RN tl2 Lyle Hull RN RN mg2 Corrections: (The following items were deleted from the chart) 01:20 00:28 Hospitalization Ordered by Pop Wharton MD for Inpatient Admission. Preliminary pkl diagnosis is Unstable angina. Severe headache. Anemia. Bed requested for Intensive Care Unit. Status is Inpatient Admission. Condition is Stable. Problem is new. Symptoms are unchanged. UTI on Admission? No. pkl 02:05 01:22 Hospitalization Ordered by Pop Wharton MD for Inpatient Admission. Preliminary cg diagnosis is Chest pain. Severe headache. Anemia. Bed requested for Telemetry/MedSurg (Inpatient). Status is Inpatient Admission. Condition is Stable. Problem is new. Symptoms have improved. UTI on Admission? No. pkl 03:15 02:05 03/17/2019 01:22 Hospitalization Ordered by Pop Wharton MD for Inpatient tl2 Admission. Preliminary diagnosis is Chest pain. Severe headache. Anemia. Bed requested for Telemetry/MedSurg (Inpatient). Status is Inpatient Admission. Condition is Stable. Problem is new. Symptoms have improved. UTI on Admission? No. cg
[2019-03-17] MEDS ORDERED: ALPRAZOLAM 0.25 MG TABLET PO PRN (01:37)
[2019-03-17] MEDS ORDERED: MORPHINE 4 MG/ML SYR IV PRN (01:37)
[2019-03-17 03:27] VITALS: BMI 31.9
[2019-03-17] MEDS ORDERED: D50W 25 GM/50 ML SYRINGE IV PRN (04:38)
[2019-03-17] MEDS ORDERED: GLUCAGON 1 MG/VIAL IM PRN (04:38)
[2019-03-17 05:29] LABS: Blood O2 Saturation 99.8 % (92-98.5)
[2019-03-17 05:31] LABS: Arterial Blood Carboxyhemoglob 1.6 % (0-1.5); Blood Gas Oxyhemoglobin 97.1 % (94-97)
[2019-03-17 05:33] LABS: Blood Gas RHB 34.2 %
[2019-03-17 07:02] LABS: BUN Blood Urea Nitrogen 12 mg/dL (7-18); Bicarbonate 30 mmol/L (21-32); Folic Acid, (Folate) 10.2 ng/mL (3.1-17.5); Glucose Level 219 mg/dL (74-106); Potassium 4.1 mmol/L (3.5-5.1); Sodium Level 137 mmol/L (136-145); Troponin I 0.08 ng/mL (0.0-0.045)
[2019-03-17] MEDS: METOPROLOL TAR 50 MG TAB PO SCH ×3 (07:19→20:35)
[2019-03-17] MEDS: ACETAMINOPHEN 500 MG TAB PO PRN ×3 (07:27→20:34)
--- NOTE | 2019-03-17 07:34 | EKG ---
Test Date: 2019-03-16 Test Time: 23:41:42 Tube Drawing Supervisor: RICKY MEASUREMENT RESULTS: Intervals: Rate: 148 WA: 116 QRSD: 74 QT: 338 QTc: 530 [place]: P: 24 WA: 116 QRS: 20 T: 181 INTERPRETIVE STATEMENTS: Sinus tachycardia Low voltage QRS Marked ST abnormality, possible lateral subendocardial injury Abnormal ECG Compared to ECG 03/16/2019 21:35:12 Low QRS voltage now present ST (T wave) deviation now present Sinus rhythm no longer present Myocardial infarct finding no longer present Electronically Signed On 03-17-19 07:33:46 CDT by Eric Kingston
--- NOTE | 2019-03-17 07:35 | EKG ---
Test Date: 2019-03-16 Test Time: 21:35:12 [employer] Consultant: RICKY MEASUREMENT RESULTS: Intervals: Rate: 77 ND: 146 QRSD: 72 QT: 372 QTc: 420 [place]: P: 31 ND: 146 QRS: 31 T: 41 INTERPRETIVE STATEMENTS: Normal sinus rhythm Cannot rule out Anterior infarct, age undetermined Abnormal ECG Compared to ECG 06/06/2018 18:04:56 Sinus tachycardia no longer present Myocardial infarct finding still present Electronically Signed On 03-17-19 07:34:16 CDT by Eric Kingston
[2019-03-17] MEDS ORDERED: PNEUMOCOCCAL VACCINE 0.5 ML IMVAC ONE (08:00)
--- NOTE | 2019-03-17 08:06 | RAD REPORT ---
EXAM DESCRIPTION: Pérez Single View03/16/2019 10:48 pm CLINICAL HISTORY: Chest pain COMPARISON: May 2018 FINDINGS: The lungs appear clear of acute infiltrate. The heart is borderline enlarged IMPRESSION: No acute abnormalities displayed
[2019-03-17] MEDS: INSULIN -REGULAR HUMAN 50 UNIT/0.5 ML ML SQ SCH ×4 (08:09→20:34)
[2019-03-17 08:14] LABS: Urine Appearance CLEAR; Urine Bilirubin NEGATIVE (NEG); Urine Blood TRACE (NEG); Urine Color YELLOW; Urine Glucose 1+ (NEG); Urine Protein NEGATIVE (NEG); Urine Specific Gravity >=1.030 (1.005-1.030)
--- NOTE | 2019-03-17 08:15 | P.HP ---
Certification for Inpatient Patient admitted to: Observation With expected LOS: <2 Midnights Patient will require the following post-hospital care: None Practitioner: I am a practitioner with admitting privileges, knowledge of patient current condition, hospital course, and medical plan of care. Services: Services provided to patient in accordance with Admission requirements found in Title 42 Section 412.3 of the Code of Federal Regulations Patient History Date of Service: 03/17/19 Reason for admission: Chest pain and headache History of Present Illness: Patient is a 68-year-old female who has been having a headache for the last 4 days. She has been taking quite a bit of Advil to alleviate her headache. Her headache has not been improving. She still only has severe chest pain which he started at her sternum and went to her back. Her headache became more severe and she became very sick. She had been told by her family to come to the emergency room for the last 3-4 days but she was trying to find it off. She felt so badly that she felt she was going to . She came to the ER for evaluation. In the emergency room she was found to have a severe macro 6 anemia. Her initial EKG did not show any significant changes but she did have a rhythm change during the ER stay and her T-waves have flipped. At that time she did have some sudden chest pain and the only thing that alleviated her symptoms according to the nursing staff was a shot of Demerol. She was taken to the CAT scan for a possible CT PE protocol and aortic dissection. This test came back inconclusive because contrast leak through the IV. Will probably need to repeated as well. Echocardiogram is pending. Patient looks to have worrisome coronary artery disease which may be exacerbated by her severe anemia. I worry that she may have a folic acid or B12 deficiency /pernicious anemia which may be further worked up as an outpatient. Will check her levels in the hospital. Will repeat H&H as well. We will start her on anti-platelet therapy and beta-madhavi therapy and will try to get the CT PE protocol and aortic dissection repeated once we get a better IV. Cardiology consultation will be very important. I believe patient does meet criteria for inpatient with some much going on with her-initially was going to admit to ICU but symptoms improved; if troponins increase and CP returns then will need to possibly be transferred to ICU for better management of her CP. I do believe she has cardiac disease. She also has a severe B12 deficiency which is causing a lot of her neurologic and hematologic issues. Her medical issues will need more than 2 days to be managed in the hospital. Allergies No Known Drug Allergies Allergy (Verified 05/07/18 04:29) Unknown No Known Allergies Allergy (Uncoded 12/15/16 12:01) Unknown Home Medications: Aspirin [Aspirin EC 81 MG] 81 mg PO DAILY 05/07/18 Gabapentin [Gralise] 300 mg PO DAILY 05/07/18 Metformin HCl 850 mg PO BID 05/07/18 Atorvastatin Calcium [Lipitor] 80 mg PO BEDTIME #30 tab 06/10/18 Losartan Potassium [Cozaar*] 25 mg PO DAILY #30 tablet 06/10/18 Metoprolol Tartrate [Lopressor*] 50 mg PO BID #60 tab 06/10/18 Prasugrel Hydrochloride [Effient*] 10 mg PO DAILY #30 tab 06/10/18 Codeine/APAP [Tylenol W/Codeine #3 tab] 1 tab PO BID 03/17/19 - Past Medical/Surgical History Has patient received pneumonia vaccine in the past: No Diabetic: Yes -: HTN -: NIDDM -: L eye poor vision -: Tubal Ligation -: Stent 2018 -: Eye Sx - Family History Mother Medical History: Lung disease, Diabetes Father Medical History: Diabetes, Cancer Notes: tobias hernandese - Social History Smoking Status: Never smoker Alcohol use: No CD- Drugs: No Caffeine use: Yes Place of Residence: Home Review of Systems 10-point ROS is otherwise unremarkable Physical Examination - Vital Signs Temperature: 97.5 F Blood Pressure: 131/49 Pulse: 73 Respirations: 18 Pulse Ox (%): 98 - Physical Exam General: Alert, In no apparent distress, Oriented x3, Mild distress HEENT: Atraumatic, Normocephalic, Other (conjunctiva pallor) Neck: 2+ carotid pulse no bruit, JVD not distended, No Thyromegaly, No LAD Respiratory: Clear to auscultation bilaterally, Normal air movement Cardiovascular: Normal S1 S2, Systolic murmur Gastrointestinal: Normal bowel sounds, Hypoactive, Soft and benign, Non- distended Musculoskeletal: No clubbing, No swelling, No contractures Integumentary: Other (pallor) Neurological: Normal speech, Normal tone, Cranial nerves 3-12 intact, Abnormal gait, Abnormal strength, Abnormal sensation - Studies Laboratory Data (last 24 hrs) 03/16/19 22:00: PT 11.3, INR 0.96 03/16/19 22:00: WBC 8.9, Hgb 7.6 L*, Hct 21.6 L, Plt Count 201 03/16/19 22:00: Sodium 139, Potassium 4.2, BUN 11, Creatinine 0.73, Glucose 277 H, Magnesium 1.9, Total Bilirubin 0.8, AST 60 H, ALT 27, Alkaline Phosphatase 85 03/16/19 21:57: PT Cancelled, INR Cancelled 03/16/19 21:57: WBC Cancelled, Hgb Cancelled, Hct Cancelled, Plt Count Cancelled 03/16/19 21:57: Sodium Cancelled, Potassium Cancelled, BUN Cancelled, Creatinine Cancelled, Glucose Cancelled, Magnesium Cancelled, Total Bilirubin Cancelled, AST Cancelled, ALT Cancelled, Alkaline Phosphatase Cancelled Assessment & Plan - Problems (Diagnosis) (1) Unstable angina Current Visit: Yes Status: Acute (2) Macrocytic anemia with vitamin B12 deficiency Current Visit: Yes Status: Acute (3) Chest pain Onset Date: 10/01/16 Current Visit: No Status: Acute (4) CAD (coronary artery disease) Onset Date: 06/09/18 Current Visit: No Status: Chronic Qualifiers: Coronary Disease-Associated Artery/Lesion type: [place] artery [place] vs. transplanted heart: [place] heart Associated angina: with unstable angina Qualified Code(s): I25.110 - Atherosclerotic heart disease of [place] coronary artery with unstable angina pectoris (5) Diabetes mellitus Onset Date: 10/01/16 Current Visit: No Status: Chronic Qualifiers: Diabetes mellitus type: type 2 Diabetes mellitus intermediate insulin use: without intermediate use Diabetes mellitus complication status: with other specified complication Qualified Code(s): E11.69 - Type 2 diabetes mellitus with other specified complication (6) Hyperlipidemia Onset Date: 06/09/18 Current Visit: No Status: Chronic Qualifiers: Hyperlipidemia type: mixed hyperlipidemia Qualified Code(s): E78.2 - Mixed hyperlipidemia (7) Hypertension Onset Date: 10/01/16 Current Visit: No Status: Chronic Qualifiers: Hypertension type: essential hypertension Qualified Code(s): I10 - Essential (primary) hypertension - Plan 1. Serial troponins and EKG 2. Cardiology consultation 3. Echocardiogram and further intervention per cardiology 4. Anti-platelet therapy, anti coagulation, beta-madhavi, statin, and O2 as needed 5. IV morphine for pain 6. Nitro p.r.n. 7. repeat CT 8. Check B12 and folate because of the degree of macrocytosis 9. Anemia exacerbating CAD and will need to be corrected if decreases 10. GI/DVT prophylaxis Discharge Plan: Home Plan to discharge in: Greater than 2 days - Advance Directives Does patient have a Living Will: No Does patient have a Durable POA for Healthcare: No - Code Status/Comfort Care Code Status Assessed: Yes Code Status: Full Code Critical Care: No Time Spent Managing PTS Care (In Minutes): 50
[2019-03-17 08:16] LABS: Urine Microscopic Reflex ORDER UMIC
[2019-03-17] MEDS ORDERED: SODIUM CHLORIDE 0.9% 10ML INJ IV PRN (08:19)
[2019-03-17 08:37] LABS: Absolute Lymphocytes (CBC) 3.4 K/uL (0.7-4.9); Absolute Monocytes 0.5 K/uL (0.1-1.3); Absolute Neutrophil 5.3 K/uL (1.8-8.0); Basophils % 0.3 % (0-1.3); Eosinophils % 2.2 % (0-4.4); Hematocrit 24.5 % (36.0-45.0); Lymphocytes % 36.2 % (15.3-44.8); MPV 9.1 fL (7.6-11.3); Monocytes % 5.4 % (3.3-12.3); RBC Red Blood Cell Count 1.86 M/uL (3.86-4.86)
[2019-03-17 08:39] LABS: Urine Bacteria <20 /HPF (<20); Urine RBC <5 /HPF (NONE SEEN)
[2019-03-17 08:40] LABS: Urine Culture Reflex Order REFLEXED
[2019-03-17] MEDS ORDERED: ENOXAPARIN 40 MG/0.4 ML SQ SCH (09:00)
[2019-03-17] MEDS ORDERED: HOME MED 1 EA UNK (Gabapentin [Gralise] 300 MG) PO SCH (09:00)
[2019-03-17] MEDS ORDERED: ASPIRIN EC 81 MG TAB PO SCH (09:00)
[2019-03-17] MEDS ORDERED: PRASUGREL (EFFIENT) 10 MG TAB PO SCH (09:00)
[2019-03-17] MEDS ORDERED: TOPIRAMATE 25 MG TAB PO ONE (09:50)
--- NOTE | 2019-03-17 10:49 | RAD REPORT ---
EXAM DESCRIPTION: US - Extrem Venous W Compress David - 03/17/2019 10:28 am CLINICAL HISTORY: PE Bilateral leg edema and swelling. COMPARISON: No comparisons TECHNIQUE: Real-time sonographic interrogation of the left and right lower extremity deep venous sys tems was performed. FINDINGS: Normal compressibility, flow augmentation, phasic flow and spontaneous flow is identified in both the left and right lower extremity deep venous systems. IMPRESSION: No sonographic evidence of left or right lower extremity deep venous thrombosis.
--- NOTE | 2019-03-17 10:54 | RAD REPORT ---
EXAM DESCRIPTION: US - UPPER EXTREMITY VENOUS UNILATE - 03/17/2019 10:37 am CLINICAL HISTORY: swelling of right arm Arm swelling and edema. COMPARISON: <Comparisons> FINDINGS: Right upper extremity venous system was interrogated with Doppler technique. Normal flow, compressibility and augmentation was noted. There is no DVT present. IMPRESSION: No evidence of right upper extremity deep venous thrombosis.
[2019-03-17] MEDS: PANTOPRAZOLE 40 MG INJ IVP SCH ×2 (10:59→20:36)
[2019-03-17] MEDS: CYANOCOBALAMIN 1000MCG/ML INJ IM SCH (11:23)
--- NOTE | 2019-03-17 11:37 | EKG ---
Test Date: 2019-03-16 Test Time: 23:49:11 Vp Training: RICKY MEASUREMENT RESULTS: Intervals: Rate: 97 WI: 148 QRSD: 76 QT: 348 QTc: 441 [place]: P: 56 WI: 148 QRS: 17 T: 214 INTERPRETIVE STATEMENTS: Sinus rhythm with occasional premature ventricular complexes and fusion complexes Cannot rule out Inferior infarct, age undetermined Cannot rule out Anterior infarct, age undetermined ST & T wave abnormality, consider lateral ischemia Abnormal ECG Compared to ECG 03/16/2019 23:41:42 Fusion complex(es) now present Ventricular premature complex(es) now present Myocardial infarct finding now present Possible ischemia now present Sinus tachycardia no longer present ST (T wave) deviation still present Electronically Signed On 03-17-19 11:35:50 CDT by Alden Shook
[2019-03-17] MEDS ORDERED: GOLYTELY 4000 ML PO SCH (14:35)
--- NOTE | 2019-03-17 15:38 | ECHO ---
HEIGHT: 5 ft 1 in WEIGHT: 169 lb 3.2 oz DATE OF STUDY: 03/17/[address]: Pop Wharton MD 2-DIMENSIONAL: YES M.MODE: YES DOPPLER: YES COLOR FLOW: YES TDS: NO PORTABLE: NO DEFINITY: NO BUBBLE STUDY: NO DIAGNOSIS: CONGESTIVE HEART FAILURE CARDIAC HISTORY: CATHERIZATION: NO SURGERY: NO PROSTHETIC VALVE: NO PACEMAKER: NO MEASUREMENTS (cm) DIASTOLIC (NORMALS) SYSTOLIC (NORMALS) IVSd 1.1 (0.6-1.2) LA Diam 3.5 (1.9-4.0) LVEF 80% LVIDd 4.9 (3.5-5.7) LVIDs 2.5 (2.0-3.5) %FS 48% LVPWd 1.3 (0.6-1.2) Ao Diam 2.3 (2.0-3.7) 2 DIMENSIONAL ASSESSMENT: RIGHT ATRIUM: NORMAL LEFT ATRIUM: NORMAL RIGHT VENTRICLE: NORMAL LEFT VENTRICLE: NORMAL TRICUSPID VALVE: NORMAL MITRAL VALVE: NORMAL PULMONIC VALVE: NORMAL AORTIC VALVE: NORMAL PERICARDIAL EFFUSION: NONE AORTIC ROOT: NORMAL LEFT VENTRICULAR WALL MOTION: NORMAL DOPPLER/COLOR FLOW: MILD TRICUSPID REGURGITATION. COMMENTS: MILD TRICUSPID REGURGITATION. NORMAL RIGHT VENTRICULAR SYSTOLIC PRESSURE. NO WALL MOTION ABNORMALITY. NORMAL LEFT VENTRICULAR SIZE AND FUNCTION. TECHNOLOGIST: David MANUEL
[2019-03-17] MEDS ORDERED: BISACODYL E.C. 5 MG TAB PO ONE (16:32)
[2019-03-17] MEDS ORDERED: ATORVASTATIN 80 MG TAB PO SCH (21:00)
[2019-03-18] MEDS: INSULIN -REGULAR HUMAN 50 UNIT/0.5 ML ML SQ SCH ×2 (07:30→11:30)
[2019-03-18] MEDS ORDERED: GABAPENTIN 300 MG CAP PO SCH (09:00)
[2019-03-18] MEDS: PANTOPRAZOLE 40 MG INJ IVP SCH (09:18)
[2019-03-18] MEDS: METOPROLOL TAR 50 MG TAB PO SCH (09:19)
[2019-03-18] MEDS: CYANOCOBALAMIN 1000MCG/ML INJ IM SCH (09:19)
[2019-03-18] MEDS ORDERED: NA CHLORIDE 0.9% 1,000 ML ONE (11:04)
[2019-03-18 11:05] VITALS: BP 137/34; TEMP 97.8
[2019-03-18] MEDS ORDERED: PROPOFOL 200 MG/20 ML VIAL IV ONE (11:57)
[2019-03-18] MEDS ORDERED: LIDOCAINE 1% MPF 5 ML VIAL ONE (11:58)
--- NOTE | 2019-03-18 11:59 | CON ---
Date of Consultation: 03/17/[address] Lao's service on 03/17/2019. I saw the patient on 03/17/2019. Reason For Consultation: Chest pain and shortness of breath. History Of Present Illness: Ms. Calderon is a 68-year-old [place] woman, we have seen her in the past. She has a history of coronary artery disease, had a 50% LAD and had a stent of her OM in 2017. She has diabetes. She has hypertension and dyslipidemia. She came in mostly with shortnes s of breath and chest discomfort similar to what she has had before, but she was noted to have a hemo globin of 7.6, which is new to her. Denied any bleeding from anywhere. She denies any nausea, vomit ing, diaphoresis, PND, orthopnea, pedal edema, palpitations, or syncope. Allergies: NONE. Review of Systems: Negative. Social History: Negative. Family History: Noncontributory. Medications: At home include metformin, aspirin, Lipitor, Cozaar, Effient, and metoprolol. Physical Examination: General: She was pleasant. No acute distress. Vital Signs: Stable, afebrile. HEENT: Negative. Neck: Supple. No bruit, lymphadenopathy, JVD, or thyromegaly. Chest: Clear to auscultation and percussion. Cardiac: Exam revealed a regular rhythm and rate. No murmur, gallops, or rubs. Abdomen: Benign. Extremities: Revealed no clubbing, cyanosis, or edema. Diagnostic Data: Hemoglobin is 7.6. D-dimer was 1352. Troponin 0.08. Glucose is 298. Chest x-ray is negative. CTA negative. EKG showed ST depression inferolaterally. Impression And Plan: Patient is having angina secondary to possibility of combination of coronary ar john paul disease and severe anemia. She is a candidate for heart catheterization, but not before her GI workup, to see what her bleeding is coming from. Echocardiogram is pending and I agree with that. I think we need to continue her home medication for her blood pressure, cholesterol, and coronary mag ry disease. After her GI workup we will reconsider another catheterization. I will set this visit a n outpatient. The case was discussed with Dr. Lao. Elevation in her troponin and D-dimer may be se condary to her severe anemia. NB/RIANNA Voice ID: [id number] Report ID: [id number]
[2019-03-18] MEDS ORDERED: METOCLOPRAMIDE 10 MG/2mL INJ IV SCH (12:37)
[2019-03-18] MEDS ORDERED: MAGNESIUM CITRATE 300 ML BOT PO SCH (13:00)
--- NOTE | 2019-03-18 13:03 | P.PN ---
Subjective Date of Service: 03/18/19 Chief Complaint: Chest pain and headache Subjective: No C/O voiced, Improving, NPO, Doing well, Other (Awaiting ECHO, EGD and Colonoscopy) Review of Systems 10-point ROS is otherwise unremarkable Physical Examination - Vital Signs Temperature: 97.8 F Blood Pressure: 137/34 Pulse: 57 Respirations: 18 Pulse Ox (%): 96 - Physical Exam General: Alert, In no apparent distress HEENT: Atraumatic, PERRLA, EOMI Neck: Supple, JVD not distended Respiratory: Clear to auscultation bilaterally, Normal air movement Cardiovascular: Regular rate/rhythm, Normal S1 S2 Gastrointestinal: Normal bowel sounds, No tenderness Musculoskeletal: No tenderness Integumentary: No rashes Neurological: Normal speech, Normal tone, Normal affect Lymphatics: No axilla or inguinal lymphadenopathy - Studies Laboratory Data (last 24 hrs) 03/17/19 14:04: Troponin I 0.08 H Medications List Reviewed: Yes Assessment And Plan - Current Problems (Diagnosis) (1) GI bleed due to NSAIDs Current Visit: Yes Status: Acute Plan: Pt with H/o Alleve Intake recently now presenting to hospital for possible Acute blood loss Anemia. -GI consulted. Appreciated Reccs -Scheduled for EGD and colonoscopy -S/p 2 units PRBC -IV protonix for now -Stop Alleve -IV fluids as well (2) Unstable angina Current Visit: Yes Status: Acute Plan: Most likely demand ischemia due to Anemia -Cardiology consulted. Appreciated -ECHO with no new changes -Treatment for Anemia and outpt f.u per cards. No further workup required (3) CAD (coronary artery disease) Onset Date: 06/09/18 Current Visit: No Status: Chronic Qualifiers: Coronary Disease-Associated Artery/Lesion type: [place] artery [place] vs. transplanted heart: [place] heart Associated angina: with unstable angina Qualified Code(s): I25.110 - Atherosclerotic heart disease of [place] coronary artery with unstable angina pectoris (4) Diabetes mellitus Onset Date: 10/01/16 Current Visit: No Status: Chronic Qualifiers: Diabetes mellitus type: type 2 Diabetes mellitus mcc insulin use: without keno terminal operator use Diabetes mellitus complication status: with other specified complication Qualified Code(s): E11.69 - Type 2 diabetes mellitus with other specified complication (5) Hyperlipidemia Onset Date: 06/09/18 Current Visit: No Status: Chronic Qualifiers: Hyperlipidemia type: mixed hyperlipidemia Qualified Code(s): E78.2 - Mixed hyperlipidemia (6) Hypertension Onset Date: 10/01/16 Current Visit: No Status: Chronic Qualifiers: Hypertension type: essential hypertension Qualified Code(s): I10 - Essential (primary) hypertension Discharge Plan: Home Plan to discharge in: Greater than 2 days - Code Status/Comfort Care Code Status Assessed: Yes Critical Care: No
--- NOTE | 2019-03-18 13:19 | RAD REPORT ---
EXAM DESCRIPTION: CT - Chest For Pe Angio - 03/17/2019 4:12 am CLINICAL HISTORY: 68 years Female chest pain COMPARISON: None TECHNIQUE: Images were obtained in axial, sagittal, and coronal planes. Coronal oblique images also obtained. Intravenous contrast was administered. This exam was performed according to our departmental dose-optimization program which includes use of Automated Exposure Control, adjustment of the mA and/or kV according to patient size and/or use of i terative reconstruction technique. FINDINGS: Pulmonary embolus is not excluded on the basis of this study. Very limited opacification p ulmonary arteries bilaterally as well as thoracic aorta. No aortic dilatation. No pericardial or pleural effusions bilaterally. No adenopathy. Coronary artery calcification. No pneumothorax. Dependent atelectatic change lower lungs bilaterally. No lung parenchymal infiltrate s or nodules seen. No acute osseous abnormality. 1.2 cm low-attenuation lesion posterior lateral right lobe of liver consistent with cyst versus heman gioma. IMPRESSION: Incompletely opacified pulmonary arteries and thoracic aorta. Very little contrast visua lized. Pulmonary embolus and aortic dissection cannot be excluded on the basis of these images. Repea t CT scan with repeat bolus injection versus radioisotope ventilation/perfusion lung scan with be nee ded for adequate evaluation. Electronically signed by: Apryl Stokes MD 03/17/2019 1:00 AM CDT Due to temporary technical issues with the PACS/Fluency reporting system, reports are being signed by the in house radiologist as a courtesy to ensure prompt reporting. The interpreting radiologist is ben yates responsible for the content of the report.
--- NOTE | 2019-03-18 13:20 | RAD REPORT ---
EXAM DESCRIPTION: CT - Head Brain Wo Cont - 03/17/2019 4:13 am CLINICAL HISTORY: Dyspnea COMPARISON: None. TECHNIQUE: CT HEAD WITHOUT IV CONTRAST on 03/16/2019 11:35 PM CDT This exam was performed according to our departmental dose-optimization program, which includes autom ated exposure control, adjustment of the mA and/or kV according to patient size and/or use of iterati ve reconstruction technique. FINDINGS: There is no acute hemorrhage, mass effect or midline shift. Carmona-white differentiation is preserved. There is no hydrocephalus. There is moderate bifrontal cerebral atrophy. There are mild pa tchy hypodensities within the periventricular and subcortical white matter, consistent with microangi opathic ischemic changes. The calvarium is intact. Orbits and globes are unremarkable. The paranasal sinuses are clear. Mastoid air cells are clear. IMPRESSION: No acute intracranial findings. Electronically signed by: Ochoa Mejia MD 03/17/2019 12:56 AM CDT Due to temporary technical issues with the PACS/Fluency reporting system, reports are being signed by the in house radiologist as a courtesy to ensure prompt reporting. The interpreting radiologist is f ully responsible for the content of the report.
[2019-03-18 13:43] VITALS: O2SAT 98
[2019-03-18] MEDS ORDERED: GOLYTELY 4000 ML PO SCH (14:00)
--- NOTE | 2019-03-18 14:48 | P.DS ---
Admission Date: 03/17/19 Discharge Date: 03/18/19 Reason for Admission: Chest pain and headache - Problems (1) GI bleed due to NSAIDs Current Visit: Yes Status: Acute (2) Unstable angina Current Visit: Yes Status: Acute (3) CAD (coronary artery disease) Onset Date: 06/09/18 Current Visit: No Status: Chronic Qualifiers: Coronary Disease-Associated Artery/Lesion type: [place] artery [place] vs. transplanted heart: [place] heart Associated angina: with unstable angina Qualified Code(s): I25.110 - Atherosclerotic heart disease of [place] coronary artery with unstable angina pectoris (4) Diabetes mellitus Onset Date: 10/01/16 Current Visit: No Status: Chronic Qualifiers: Diabetes mellitus type: type 2 Diabetes mellitus halfway insulin use: without long term care pharmacist use Diabetes mellitus complication status: with other specified complication Qualified Code(s): E11.69 - Type 2 diabetes mellitus with other specified complication (5) Hyperlipidemia Onset Date: 06/09/18 Current Visit: No Status: Chronic Qualifiers: Hyperlipidemia type: mixed hyperlipidemia Qualified Code(s): E78.2 - Mixed hyperlipidemia (6) Hypertension Onset Date: 10/01/16 Current Visit: No Status: Chronic Qualifiers: Hypertension type: essential hypertension Qualified Code(s): I10 - Essential (primary) hypertension Brief History of Present Illness: Patient is a 68-year-old female who has been having a headache for the last 4 days. She has been taking quite a bit of Advil to alleviate her headache. Her headache has not been improving. She still only has severe chest pain which he started at her sternum and went to her back. Her headache became more severe and she became very sick. She had been told by her family to come to the emergency room for the last 3-4 days but she was trying to find it off. She felt so badly that she felt she was going to . She came to the ER for evaluation. In the emergency room she was found to have a severe macro 6 anemia. Her initial EKG did not show any significant changes but she did have a rhythm change during the ER stay and her T-waves have flipped. At that time she did have some sudden chest pain and the only thing that alleviated her symptoms according to the nursing staff was a shot of Demerol. She was taken to the CAT scan for a possible CT PE protocol and aortic dissection. This test came back inconclusive because contrast leak through the IV. Will probably need to repeated as well. Echocardiogram is pending. Patient looks to have worrisome coronary artery disease which may be exacerbated by her severe anemia. I worry that she may have a folic acid or B12 deficiency /pernicious anemia which may be further worked up as an outpatient. Will check her levels in the hospital. Will repeat H&H as well. We will start her on anti-platelet therapy and beta-madhavi therapy and will try to get the CT PE protocol and aortic dissection repeated once we get a better IV. Cardiology consultation will be very important. I believe patient does meet criteria for inpatient with some much going on with her-initially was going to admit to ICU but symptoms improved; if troponins increase and CP returns then will need to possibly be transferred to ICU for better management of her CP. I do believe she has cardiac disease. She also has a severe B12 deficiency which is causing a lot of her neurologic and hematologic issues. Her medical issues will need more than 2 days to be managed in the hospital. Hospital Course: Patient left the hospital AMA Vital Signs/Physical Exam: Temp Pulse Resp BP Pulse Ox 97.8 F 57 18 137/34 L 96 03/18/19 13:15 03/18/19 13:15 03/18/19 13:15 03/18/19 13:15 03/18/19 13:06 General: Alert, In no apparent distress HEENT: Atraumatic, PERRLA, EOMI Neck: Supple, JVD not distended Respiratory: Clear to auscultation bilaterally, Normal air movement Cardiovascular: Regular rate/rhythm, Normal S1 S2 Gastrointestinal: Normal bowel sounds, No tenderness Musculoskeletal: No tenderness Integumentary: No rashes Neurological: Normal speech, Normal tone, Normal affect Lymphatics: No axilla or inguinal lymphadenopathy Laboratory Data at Discharge: WBC 9.4 K/uL (4.3-10.9) 03/17/19 07:15 Hgb 8.7 g/dL (12.0-15.0) L 03/17/19 07:15 Hct 24.5 % (36.0-45.0) L 03/17/19 07:15 Plt Count 206 K/uL (152-406) 03/17/19 07:15 PT 11.3 SECONDS (9.5-12.5) 03/16/19 22:00 INR 0.96 03/16/19 22:00 Sodium 137 mmol/L (136-145) 03/17/19 06:07 Potassium 4.1 mmol/L (3.5-5.1) 03/17/19 06:07 BUN 12 mg/dL (7-18) 03/17/19 06:07 Creatinine 0.60 mg/dL (0.55-1.3) 03/17/19 06:07 Glucose 219 mg/dL (74-106) H 03/17/19 06:07 Magnesium 1.9 mg/dL (1.8-2.4) 03/16/19 22:00 Total Bilirubin 0.8 mg/dL (0.2-1.0) 03/16/19 22:00 AST 60 U/L (15-37) H 03/16/19 22:00 ALT 27 U/L (12-78) 03/16/19 22:00 Alkaline Phosphatase 85 U/L (45-117) 03/16/19 22:00 Troponin I 0.08 ng/mL (0.0-0.045) H 03/17/19 14:04 Triglycerides 156 mg/dL (<150) H 03/17/19 06:07 Cholesterol 154 mg/dL (<200) 03/17/19 06:07 HDL Cholesterol 34 mg/dL (40-60) L 03/17/19 06:07 Cholesterol/HDL Ratio 4.53 03/17/19 06:07 Home Medications: Aspirin [Aspirin EC 81 MG] 81 mg PO DAILY 05/07/18 Metformin HCl 850 mg PO BID 05/07/18 Atorvastatin Calcium [Lipitor] 80 mg PO BEDTIME #30 tab 06/10/18 Losartan Potassium [Cozaar*] 25 mg PO DAILY #30 tablet 06/10/18 Metoprolol Tartrate [Lopressor*] 50 mg PO BID #60 tab 06/10/18 Prasugrel Hydrochloride [Effient*] 10 mg PO DAILY #30 tab 06/10/18 Codeine/APAP [Tylenol W/Codeine #3 tab] 1 tab PO BID 03/17/19
[2019-03-19] MEDS ORDERED: POLYETHYL GLY 3350 17 GM/DOSE PO SCH (09:00)
== END 2019-03-18 14:59 | disposition left against medical advice (07) | DRG 378 ==
LOC: ER 21:27 → ERHOLD 03-17 01:46 → 4TH 03-17 02:38 → OBSVTOIN 03-17 15:24
PROVIDERS: ADMIT Hospitalist; ATTEND Family Medicine
PROC: 0DB78ZX Excision of Stomach, Pylorus, Via Natural or Artificial Opening Endoscopic, Diagnostic (ICD-10-PCS; principal; 2019-03-18 12:00)
PROC: 0DB88ZX Excision of Small Intestine, Via Natural or Artificial Opening Endoscopic, Diagnostic (ICD-10-PCS; 2019-03-18 12:00)
DX: K92.2 Gastrointestinal hemorrhage, unspecified (principal); I25.110 Atherosclerotic heart disease of native coronary artery with unstable angina pectoris; D62 Acute posthemorrhagic anemia; T39.395A Adverse effect of other nonsteroidal anti-inflammatory drugs [NSAID], initial encounter; D53.9 Nutritional anemia, unspecified; D51.9 Vitamin B12 deficiency anemia, unspecified; K29.70 Gastritis, unspecified, without bleeding; K31.7 Polyp of stomach and duodenum; I10 Essential (primary) hypertension; E11.9 Type 2 diabetes mellitus without complications; E78.2 Mixed hyperlipidemia; Z79.84 Long term (current) use of oral hypoglycemic drugs; Z79.82 Long term (current) use of aspirin; Z95.5 Presence of coronary angioplasty implant and graft
CPT/HCPCS: 36415; 70450; 71045; 71275; 80048; 80061; 80076; 81003; 81015; 82607; 82746; 82805; 82962; 83735; 83880; 84484; 85025; 85379; 85610; 86850; 86900; 86901; 87086; 87088; 88305; 88312; 93005; 93306; 93970; 93971; 94640; 96374; 96375; 99285; C9113; G0378; J2175; J2405; J2704; J2765; J3420; J7030; Q9967

== ENCOUNTER 2019-07-27 00:28 | Inpatient (IN) | payer OTHER ==
[2019-07-27] MEDS ORDERED: FENTANYL CITR 100 MCG/2 ML ONE ×2 (01:30→02:29)
[2019-07-27 01:36] LABS: Absolute Lymphocytes (CBC) 2.5 K/uL (0.7-4.9); Basophils % 0.4 % (0-1.3); Hematocrit 37.8 % (36.0-45.0); Lymphocytes % 17.7 % (15.3-44.8); MPV 8.7 fL (7.6-11.3); RBC Red Blood Cell Count 3.94 M/uL (3.86-4.86)
[2019-07-27 01:37] LABS: Protime INR 1.01
[2019-07-27 01:51] LABS: Albumin 3.5 g/dL (3.4-5.0); Bilirubin Direct 0.1 mg/dL (0-0.2); Bilirubin Total 0.4 mg/dL (0.2-1.0); Magnesium 1.9 mg/dL (1.8-2.4); Protein, Total 8.4 g/dL (6.4-8.2); Troponin (Emerg Dept Use Only) 0.09 ng/mL (0.0-0.045)
[2019-07-27 02:45] LABS: Anisocytosis SLIGHT; Blood Morphology Comment NOTED (NOT SEEN); Platelet Estimate ADEQ; Urine White Blood Cell Casts OK
[2019-07-27] MEDS ORDERED: ASPIRIN 81 MG CHEWABLE TABLET ONE (02:56)
--- NOTE | 2019-07-27 03:24 | EDPHYS ---
Physician Documentation [facility] Name: Ivet Calderon Age: 69 yrs Sex: Female : 1950 Arrival Date: 07/27/2019 Time: 00:32 Bed 17 Private MD: ED Physician Derick Negrete HPI: 07/27 02:31 This 69 yrs old Female presents to ER via Ambulatory with complaints of Chest gs Pain. 02:31 The patient or guardian reports chest pain that is located primarily in the anterior gs chest wall. The pain radiates to Associated signs and symptoms: Pertinent negatives: lower extremity swelling. The chest pain is described as a heaviness. Duration: The patient or guardian reports a single episode, that is still ongoing. Modifying factors: The symptoms are alleviated by nothing. the symptoms are aggravated by nothing. Severity of pain: At its worst the pain was moderate in the emergency department the pain is unchanged. The patient has experienced similar episodes in the past, a few times. Historical: - Allergies: 00:44 No Known Allergies; rv - Home Meds: 00:44 aspirin 81 mg Oral chew 1 tab once daily [Active]; Lopressor 50 mg Oral tab 1 tab once rv daily [Active]; metformin 500 mg Oral tab 1 tab 2 times per day [Active]; Plavix Oral [Active]; - PMHx: 00:44 Diabetes - NIDDM; Hypertension; rv - PSHx: 00:44 Appendectomy; Angioplasty; rv - Immunization history:: Adult Immunizations unknown, Flu vaccine is not up to date. - Social history:: Smoking status: Patient/guardian denies using tobacco, never smoked. - Ebola Screening: : No symptoms or risks identified at this time. ROS: 02:31 All other systems are negative. gs 02:56 Neuro: Positive for tingling, face brief earlier yest evening. gs Exam: 02:31 Head/Face: Normocephalic, atraumatic. Eyes: Pupils equal round and reactive to light, gs extra-ocular motions intact. Lids and lashes normal. Conjunctiva and sclera are non-icteric and not injected. Cornea within normal limits. Periorbital areas with no swelling, redness, or edema. ENT: Nares patent. No nasal discharge, no septal abnormalities noted. Tympanic membranes are normal and external auditory canals are clear. Oropharynx with no redness, swelling, or masses, exudates, or evidence of obstruction, uvula midline. Mucous membranes moist. Neck: Trachea midline, no thyromegaly or masses palpated, and no cervical lymphadenopathy. Supple, full range of motion without nuchal rigidity, or vertebral point tenderness. No Meningismus. Chest/axilla: Normal chest wall appearance and motion. Nontender with no deformity. No lesions are appreciated. Cardiovascular: Regular rate and rhythm with a normal S1 and S2. No gallops, murmurs, or rubs. Normal PMI, no JVD. No pulse deficits. Respiratory: Lungs have equal breath sounds bilaterally, clear to auscultation and percussion. No rales, rhonchi or wheezes noted. No increased work of breathing, no retractions or nasal flaring. Abdomen/GI: Soft, non-tender, with normal bowel sounds. No distension or tympany. No guarding or rebound. No evidence of tenderness throughout. Back: No spinal tenderness. No costovertebral tenderness. Full range of motion. Skin: Warm, dry with normal turgor. Normal color with no rashes, no lesions, and no evidence of cellulitis. MS/ Extremity: Pulses equal, no cyanosis. Neurovascular intact. Full, normal range of motion. Neuro: Awake and alert, GCS 15, oriented to person, place, time, and situation. Cranial nerves II-XII grossly intact. Motor strength 5/5 in all extremities. Sensory grossly intact. Cerebellar exam normal. Normal gait. 02:31 Constitutional: The patient appears alert, awake. 02:31 ECG was reviewed by the Attending Physician. Vital Signs: 00:42 Weight 73.48 kg; Height 5 ft. 1 in. (154.94 cm); Pain 10/10; rv 00:52 BP 170 / 85; Pulse 75; Resp 21; Pulse Ox 96% on R/A; rv 01:34 BP 180 / 81; Pulse 70; Resp 18 S; Temp 98.2(O); Pulse Ox 96% on R/A; cc3 02:30 BP 159 / 63; Pulse 72; Resp 16 S; Pulse Ox 97% on R/A; cc3 02:52 BP 167 / 72; Pulse 77; Resp 15 S; Pulse Ox 95% on R/A; Pain 7/10; cc3 03:45 BP 130 / 58; Pulse 67; Resp 17 S; Pulse Ox 96% on R/A; Pain 2/10; cc3 04:24 BP 125 / 58; Pulse 66; Resp 16 S; Pulse Ox 96% on R/A; Pain 2/10; cc3 04:40 BP 135 / 56; Pulse 69; Resp 16 S; Pulse Ox 97% on R/A; Pain 0/10; cc3 00:42 Body Mass Index 30.61 (73.48 kg, 154.94 cm) rv MDM: 01:25 Patient medically screened. 02:31 Differential diagnosis: acute myocardial infarction, coronary artery disease chest wall gs pain, congestive heart failure. Data reviewed: vital signs, nurses notes. Counseling: I had a detailed discussion with the patient and/or guardian regarding: the historical points, exam findings, and any diagnostic results supporting the discharge/admit diagnosis, the need for further work-up and treatment in the hospital. Response to treatment: the patient's symptoms have resolved after treatment, the patient's pain is gone, the patient's condition has returned to base line. 07/27 00:53 Order name: Basic Metabolic Panel; Complete Time: 02:23 07/27 00:53 Order name: CBC with Diff; Complete Time: 02:48 07/27 00:53 Order name: LFT's; Complete Time: 02:23 07/27 00:53 Order name: Magnesium; Complete Time: 02:23 07/27 00:53 Order name: NT PRO-BNP; Complete Time: 02:23 07/27 00:53 Order name: PT-INR; Complete Time: 02:23 07/27 00:53 Order name: Troponin (emerg Dept Use Only); Complete Time: 02:23 07/27 01:42 Order name: CBC Smear Scan; Complete Time: 02:48 EDMO 07/27 03:52 Order name: Lipid Profile EDMO 07/27 03:52 Order name: Lipid Profile EDMO 07/27 04:10 Order name: Troponin I EDMO 07/27 00:53 Order name: XRAY Chest (1 view) 07/27 00:53 Order name: EKG; Complete Time: 00:54 07/27 00:53 Order name: Cardiac monitoring; Complete Time: 01:11 07/27 00:53 Order name: EKG - Nurse/Tech; Complete Time: 01:12 07/27 00:53 Order name: IV Saline Lock; Complete Time: : 07/27 02:49 Order name: CT Chest W/ Con 07/27 03:53 Order name: CONS Physician Consult [facility] 07/27 03:53 Order name: Heart Healthy EDMO 07/27 03:53 Order name: Echo with Doppler EDMO 07/27 03:53 Order name: EKG Electrocardiogram [facility] 07/27 03:53 Order name: EKG Electrocardiogram [facility] 07/27 04:10 Order name: Troponin I EDMO 07/27 04:11 Order name: Troponin I EDMO 07/27 00:53 Order name: Labs collected and sent; Complete Time: 01:31 07/27 00:53 Order name: O2 Per Protocol; Complete Time: : 07/27 00:53 Order name: O2 Sat Monitoring; Complete Time: :14 EC:31 Rate is 75 beats/min. Rhythm is regular with Occasional PVCs. IL interval is normal. gs QRS interval is normal. T waves are Flattened. Clinical impression: NSR w/ Non-specific ST/T Changes. Interpreted by me. Administered Medications: 01:35 Drug: fentaNYL (PF) 25 mcg {Note: RASS 0, given by JOSE Moreno.} Route: IVP; Site: left cc3 forearm; 02:00 Follow up: Response: No adverse reaction; Pain is unchanged, physician notified cc3 02:33 Drug: fentaNYL (PF) 25 mcg {Note: RASS 0.} Route: IVP; Site: left forearm; cc3 02:49 Follow up: Response: No adverse reaction; Pain is decreased; RASS: Alert and Calm (0) cc3 02:55 Drug: Aspirin Chewable Tablet 324 mg Route: PO; cc3 03:00 Follow up: Response: No adverse reaction cc3 Disposition: 07/27/19 03:23 Hospitalization ordered by Pop Wharton for Inpatient Admission. Preliminary diagnosis is Unstable angina. - Bed requested for Telemetry/MedSurg (Inpatient). - Status is Inpatient Admission. cc3 - Condition is Stable. - Problem is an acute exacerbation. - Symptoms are resolved. UTI on Admission? No Signatures: Dispatcher [employer] KRISTENMO Anabela Felipe RN RN mw Derick Negrete MD MD Ruiz Stockton RN RN Ivonne Bustamante cc3 Corrections: (The following items were deleted from the chart) 03:37 03:23 Hospitalization Ordered by Pop Wharton MD for Inpatient Admission. Preliminary diagnosis is Unstable angina. Bed requested for Telemetry/MedSurg (Inpatient). Status is Inpatient Admission. Condition is Stable. Problem is an acute exacerbation. Symptoms are resolved. UTI on Admission? No. 04:10 03:52 Troponin I ordered. [facility] EDMO 04:10 03:52 Troponin I ordered. [facility] EDMO 04:10 03:52 Troponin I ordered. [facility] EDMS 04:40 03:37 07/27/2019 03:23 Hospitalization Ordered by Pop Wharton MD for Inpatient cc3 Admission. Preliminary diagnosis is Unstable angina. Bed requested for Telemetry/MedSurg (Inpatient). Status is Inpatient Admission. Condition is Stable. Problem is an acute exacerbation. Symptoms are resolved. UTI on Admission? No.
--- NOTE | 2019-07-27 03:24 | ER ---
Nurse's Notes [facility] Name: Ivet Calderon Age: 69 yrs Sex: Female : 1950 Arrival Date: 07/27/2019 Time: 00:32 Bed 17 Private MD: Diagnosis: Unstable angina Presentation: 07/27 00:39 Presenting complaint: Patient states: chest pain started 2 hours ago, feels like pain rv and palpitations, constant and the pain is 10/10. then an hour ago, pain on lower back going around to upper abdomen, pain is described more than 10/10. Transition of care: patient was not received from another setting of care. Onset of symptoms was July 26, 2019 at 23:00. Risk Assessment: Do you want to hurt yourself or someone else? Patient reports no desire to harm self or others. Initial Sepsis Screen: Does the patient meet any 2 criteria? No. Patient's initial sepsis screen is negative. Does the patient have a suspected source of infection? No. Patient's initial sepsis screen is negative. Care prior to arrival: None. 00:39 Method Of Arrival: Ambulatory rv 00:39 Acuity: DORYS 3 rv Triage Assessment: 00:52 General: Appears in no apparent distress. uncomfortable, Behavior is calm, cooperative, cc3 appropriate for age. Pain: Complains of pain in left side of chest, back. Cardiovascular: Reports chest pain, since 2100H tonight. Historical: - Allergies: 00:44 No Known Allergies; rv - Home Meds: 00:44 aspirin 81 mg Oral chew 1 tab once daily [Active]; Lopressor 50 mg Oral tab 1 tab once rv daily [Active]; metformin 500 mg Oral tab 1 tab 2 times per day [Active]; Plavix Oral [Active]; - PMHx: 00:44 Diabetes - NIDDM; Hypertension; rv - PSHx: 00:44 Appendectomy; Angioplasty; rv - Immunization history:: Adult Immunizations unknown, Flu vaccine is not up to date. - Social history:: Smoking status: Patient/guardian denies using tobacco, never smoked. - Ebola Screening: : No symptoms or risks identified at this time. Screenin:52 Abuse screen: Denies threats or abuse. Denies injuries from another. Nutritional cc3 screening: No deficits noted. Tuberculosis screening: No symptoms or risk factors identified. Fall Risk Ambulatory Aid- None/Bed Rest/Nurse Assist (0 pts). Gait- Normal/Bed Rest/Wheelchair (0 pts) Mental Status- Oriented to own ability (0 pts). Assessment: 00:52 General: Appears in no apparent distress. uncomfortable, Behavior is cooperative, cc3 appropriate for age, anxious. Pain: Complains of pain in chest, back Pain radiates to back Pain began 3 hours ago. Neuro: Level of Consciousness is awake, alert, obeys commands, Oriented to person, place, time, situation, Appropriate for age Endoscopy Tech are equal bilaterally Moves all extremities. Full function Gait is steady, Speech is normal, Facial symmetry appears normal, Pupils are PERRLA, Intact. Cardiovascular: Reports chest pain, since 2100H tonight Denies diaphoresis, fatigue, lightheadedness, nausea, shortness of breath, syncope, vomiting. Respiratory: Airway is patent Respiratory effort is even, unlabored, Respiratory pattern is regular, symmetrical. GI: Abdomen is round distended. : No signs and/or symptoms were reported regarding the genitourinary system. EENT: No signs and/or symptoms were reported regarding the EENT system. Derm: Skin is intact, is healthy with good turgor, Skin is pink, warm \T\ dry. normal. Musculoskeletal: Circulation, motion, and sensation intact. Range of motion: intact in all extremities. 01:30 Reassessment: Patient appears in no apparent distress at this time. Patient and/or cc3 family updated on plan of care and expected duration. Pain level reassessed. Patient is alert, oriented x 3, equal unlabored respirations, skin warm/dry/pink. 02:00 Reassessment: Patient appears in no apparent distress at this time. Patient and/or cc3 family updated on plan of care and expected duration. Pain level reassessed. Patient is alert, oriented x 3, equal unlabored respirations, skin warm/dry/pink. Patient complains of back pain and said that the Fentanyl given to her did not give relief, Dr. Negrete informed, no new orders made. 02:24 Reassessment: Patient said she will pull out her IV cannula and will leave if she cc3 doesn't get pain medicine again, Dr. Negrete and charge nurse Martina informed. 02:51 Reassessment: Patient appears in no apparent distress at this time. Patient and/or cc3 family updated on plan of care and expected duration. Pain level reassessed. Patient is alert, oriented x 3, equal unlabored respirations, skin warm/dry/pink. patient said the pain is still there but she feels better after the pain medicine that's just been given. Patient states feeling better. Patient states symptoms have improved. 03:02 Reassessment: Patient appears in no apparent distress at this time. Patient and/or cc3 family updated on plan of care and expected duration. Pain level reassessed. Patient is alert, oriented x 3, equal unlabored respirations, skin warm/dry/pink. Patient taken by refresh technician to their department by stretcher. 04:05 Reassessment: Patient appears in no apparent distress at this time. Patient and/or cc3 family updated on plan of care and expected duration. Pain level reassessed. Patient is alert, oriented x 3, equal unlabored respirations, skin warm/dry/pink. Patient for admission, room available in 208, report called and handed over to JOSE Patel for continuity of care and management. Patient denies pain at this time. Patient states feeling better. Patient states symptoms have improved. 04:40 Reassessment: Patient appears in no apparent distress at this time. Patient and/or cc3 family updated on plan of care and expected duration. Pain level reassessed. Patient is alert, oriented x 3, equal unlabored respirations, skin warm/dry/pink. Patient left ER for admission vitally stable by stretcher escorted by nurse techlisa Dc. No valuables left in the patient's room. Patient denies pain at this time. Patient states feeling better. Patient states symptoms have improved. Vital Signs: 00:42 Weight 73.48 kg; Height 5 ft. 1 in. (154.94 cm); Pain 10/10; rv 00:52 BP 170 / 85; Pulse 75; Resp 21; Pulse Ox 96% on R/A; rv 01:34 BP 180 / 81; Pulse 70; Resp 18 S; Temp 98.2(O); Pulse Ox 96% on R/A; cc3 02:30 BP 159 / 63; Pulse 72; Resp 16 S; Pulse Ox 97% on R/A; cc3 02:52 BP 167 / 72; Pulse 77; Resp 15 S; Pulse Ox 95% on R/A; Pain 7/10; cc3 03:45 BP 130 / 58; Pulse 67; Resp 17 S; Pulse Ox 96% on R/A; Pain 2/10; cc3 04:24 BP 125 / 58; Pulse 66; Resp 16 S; Pulse Ox 96% on R/A; Pain 2/10; cc3 04:40 BP 135 / 56; Pulse 69; Resp 16 S; Pulse Ox 97% on R/A; Pain 0/10; cc3 00:42 Body Mass Index 30.61 (73.48 kg, 154.94 cm) rv ED Course: 00:32 Patient arrived in ED. ag3 00:42 Triage completed. rv 00:52 Ruiz Stockton RN is Primary Nurse. rv 00:52 Patient maintains SpO2 saturation greater than 95% on room air. cc3 00:52 Patient has correct armband on for positive identification. Placed in gown. Bed in low cc3 position. Call light in reach. Side rails up X2. awake overnight monitor on. Pulse ox on. NIBP on. 00:52 Arm band placed on right wrist. EKG completed in triage. Results shown to MD. cc3 00:53 Derick Negrete MD is Attending Physician. gs 01:06 Inserted saline lock: 22 gauge in left forearm, using aseptic technique. rv 01:18 XRAY Chest (1 view) In Process Unspecified. EDMS 03:23 Pop Wharton MD is Hospitalizing Provider. gs 03:27 CT Chest W/ Con In Process Unspecified. EDMS 04:05 No provider procedures requiring assistance completed. Patient admitted, IV remains in cc3 place. Administered Medications: 01:35 Drug: fentaNYL (PF) 25 mcg {Note: RASS 0, given by JOSE Moreno.} Route: IVP; Site: left cc3 forearm; 02:00 Follow up: Response: No adverse reaction; Pain is unchanged, physician notified cc3 02:33 Drug: fentaNYL (PF) 25 mcg {Note: RASS 0.} Route: IVP; Site: left forearm; cc3 02:49 Follow up: Response: No adverse reaction; Pain is decreased; RASS: Alert and Calm (0) cc3 02:55 Drug: Aspirin Chewable Tablet 324 mg Route: PO; cc3 03:00 Follow up: Response: No adverse reaction cc3 Outcome: 03:23 Decision to Hospitalize by Provider. 04:05 Admitted to Med/surg accompanied by tech, via stretcher, room 208, with chart, Report cc3 called to JOSE Patel 04:05 Condition: stable 04:05 Instructed on the need for admit, Demonstrated understanding of instructions. 04:40 Patient left the ED. cc3 Signatures: Dispatcher [employer] Derick Carrion MD MD Ruiz Stockton RN RN Ivonne Mckenzie cc3 Sara Garsia ag3 Corrections: (The following items were deleted from the chart) 02:52 02:51 Reassessment: Patient appears in no apparent distress at this time. Patient cc3 and/or family updated on plan of care and expected duration. Pain level reassessed. Patient is alert, oriented x 3, equal unlabored respirations, skin warm/dry/pink. patient said the pain is still there but she feels better. Patient states feeling better. Patient states symptoms have improved. cc3
[2019-07-27] MEDS ORDERED: ALPRAZOLAM 0.25 MG TABLET PO PRN (03:47)
[2019-07-27] MEDS ORDERED: MORPHINE 4 MG/ML SYR IV PRN (03:47)
[2019-07-27 04:47] VITALS: BMI 31.3
[2019-07-27] MEDS ORDERED: PNEUMOCOCCAL VACCINE 0.5 ML IMVAC ONE (05:27)
[2019-07-27] MEDS ORDERED: INFLUENZA VACCINE (for 3y+) 0.5 ML DOSE IMVAC ONE (05:27)
[2019-07-27 06:28] LABS: Troponin I 0.95 ng/mL (0.0-0.045)
[2019-07-27 07:39] LABS: Urine Appearance CLEAR; Urine Bilirubin NEGATIVE (NEG); Urine Blood NEGATIVE (NEG); Urine Color YELLOW; Urine Glucose 2+ (NEG); Urine Protein NEGATIVE (NEG); Urine Specific Gravity >=1.030 (1.005-1.030)
[2019-07-27 07:42] LABS: Urine Microscopic Reflex NO UMIC
[2019-07-27] MEDS: METOPROLOL TAR 50 MG TAB PO SCH ×2 (08:24→20:36)
--- NOTE | 2019-07-27 08:30 | RAD REPORT ---
EXAM DESCRIPTION: RAD - Chest Single View - 07/27/2019 1:18 am CLINICAL HISTORY: Chest pain COMPARISON: March 16 TECHNIQUE: AP portable chest image was obtained 0113 hours . FINDINGS: Lung volumes are low. No peripheral mass or consolidation. Shallow inspiration does cause slight accentuation of the lung markings and vasculature. The minimal interstitial edema or infiltrat e not excluded. Heart and vasculature are normal. No measurable pleural effusion and no pneumothorax. No acute bony abnormality seen. No acute aortic findings suspected. IMPRESSION: No focal lung parenchymal process. Shallow inspiration accentuates baseline interstitial pattern potentially masking early edema or infi ltrate.
[2019-07-27] MEDS ORDERED: ASPIRIN EC 81 MG TAB PO SCH (09:00)
[2019-07-27] MEDS ORDERED: ENOXAPARIN 40 MG/0.4 ML SQ SCH (09:00)
[2019-07-27] MEDS: ACETAMINOPHEN 500 MG TAB PO PRN (09:10)
[2019-07-27] MEDS ORDERED: CLOPIDOGREL 75 MG TABLET PO ONE (09:29)
--- NOTE | 2019-07-27 09:43 | P.HP ---
Certification for Inpatient Patient admitted to: Inpatient With expected LOS: >2 Midnights Patient will require the following post-hospital care: None Practitioner: I am a practitioner with admitting privileges, knowledge of patient current condition, hospital course, and medical plan of care. Services: Services provided to patient in accordance with Admission requirements found in Title 42 Section 412.3 of the Code of Federal Regulations Patient History Date of Service: 07/27/19 Reason for admission: Chest pain rule out acute coronary syndrome History of Present Illness: Patient is a 69-year-old female who came to the hospital with chest discomfort. Pain was mainly in the sternal region. There was no radiation of the chest discomfort. She said the pain felt sharp. It was severe in the emergency room and she was given pain medication x2 which alleviated. She has been feeling much better since that time. He has a strong family history and had a brother who in his early 50s with a heart attack. She states that he was a smoker. She does not smoke but she does have diabetes and hypertension. She will be admitted to the hospital for serial troponins and EKG. Will start patient on anti-platelet therapy and statin therapy along with echocardiogram and cardiology consultation. She will probably need a stress test for troponins are negative in light of her symptoms. They do appear to be worrisome. We will await for Cardiology input. Allergies No Known Drug Allergies Allergy (Verified 05/07/18 04:29) Unknown Home Medications: Aspirin Chewable [Aspirin Chewable*] 81 mg PO DAILY 07/27/19 Atorvastatin Calcium [Lipitor] 40 mg PO DAILY 07/27/19 Losartan Potassium [Cozaar] 25 mg PO DAILY 07/27/19 Metformin HCl [Glucophage*] 850 mg PO BID 07/27/19 Metoprolol Tartrate [Lopressor*] 50 mg PO DAILY 07/27/19 - Past Medical/Surgical History Has patient received pneumonia vaccine in the past: No Diabetic: Yes -: HTN -: NIDDM -: L eye poor vision -: Tubal Ligation -: Stent 2018 -: Eye Sx -: appendectomy - Family History Mother Medical History: Lung disease, Diabetes Father Medical History: Diabetes, Cancer Notes: soraya'naveen dse - Social History Smoking Status: Never smoker Alcohol use: No Caffeine use: No Place of Residence: Home Review of Systems 10-point ROS is otherwise unremarkable Physical Examination - Vital Signs Temperature: 97.1 F Blood Pressure: 140/70 Pulse: 68 Respirations: 18 Pulse Ox (%): 98 - Physical Exam General: Alert, In no apparent distress, Oriented x3 HEENT: Atraumatic, PERRLA, Mucous membr. moist/pink, EOMI, Sclerae nonicteric Neck: Supple, 2+ carotid pulse no bruit, No LAD, Without JVD or thyroid abnormality Respiratory: Clear to auscultation bilaterally, Normal air movement Cardiovascular: Regular rate/rhythm, Normal S1 S2, No murmurs Gastrointestinal: Normal bowel sounds, Soft and benign, Non-distended, No tenderness Musculoskeletal: No clubbing, No swelling, No tenderness Integumentary: No rashes Neurological: Normal gait, Normal speech, Normal strength at 5/5 x4 extr, Normal tone, Cranial nerves 3-12 intact, Normal affect Lymphatics: No axilla or inguinal lymphadenopathy - Studies Laboratory Data (last 24 hrs) 07/27/19 01:23: PT 11.9, INR 1.01 07/27/19 01:23: WBC 14.4 H, Hgb 12.7, Hct 37.8, Plt Count 291 07/27/19 01:23: Sodium 136, Potassium 4.0, BUN 13, Creatinine 0.87, Glucose 261 H, Magnesium 1.9, Total Bilirubin 0.4, AST 24, ALT 22, Alkaline Phosphatase 101 Assessment & Plan - Problems (Diagnosis) (1) Chest pain, rule out acute myocardial infarction Current Visit: Yes Status: Acute (2) CAD (coronary artery disease) Onset Date: 06/09/18 Current Visit: No Status: Chronic Qualifiers: (3) Diabetes mellitus Onset Date: 10/01/16 Current Visit: No Status: Chronic Qualifiers: (4) Hyperlipidemia Onset Date: 06/09/18 Current Visit: No Status: Chronic Qualifiers: (5) Hypertension Onset Date: 10/01/16 Current Visit: No Status: Chronic Qualifiers: (6) Obesity Onset Date: 06/09/18 Current Visit: No Status: Chronic Qualifiers: - Plan 1. Serial troponins and EKG 2. Cardiology consultation 3. Echocardiogram and further testing pending cardiology evaluation 4. Anti-platelet therapy, possible anti coagulation, beta-madhavi, statin, and O2 as needed 5. IV morphine for pain 6. Nitro p.r.n. Discharge Plan: Home Plan to discharge in: 48 Hours - Advance Directives Does patient have a Living Will: No Does patient have a Durable POA for Healthcare: No - Code Status/Comfort Care Code Status Assessed: Yes Code Status: Full Code Critical Care: No Time Spent Managing PTS Care (In Minutes): 40
--- NOTE | 2019-07-27 10:00 | EKG ---
Test Date: 2019-07-27 Test Time: 01:05:54 Tow Motor Mechanic: VALENTÍN MEASUREMENT RESULTS: Intervals: Rate: 75 ME: 138 QRSD: 82 QT: 418 QTc: 466 [place]: P: 44 ME: 138 QRS: 35 T: 57 INTERPRETIVE STATEMENTS: Sinus rhythm with frequent premature ventricular complexes Cannot rule out Anterior infarct, age undetermined Abnormal ECG Compared to ECG 03/16/2019 23:49:11 Fusion complex(es) no longer present ST (T wave) deviation no longer present Possible ischemia no longer present Myocardial infarct finding still present Electronically Signed On 07-27-19 09:59:57 CDT by Eric Kingston
--- NOTE | 2019-07-27 10:23 | RAD REPORT ---
EXAM DESCRIPTION: CT - Thorax W/ Con - 07/27/2019 4:23 am CLINICAL HISTORY: PAIN COMPARISON: Six March 17, 2019. TECHNIQUE: CT CHEST WITH IV CONTRAST on 07/27/2019 2:49 AM CDT. MIPS reconstructions were generated. This exam was performed according to our departmental dose-optimization program, which includes autom ated exposure control, adjustment of the mA and/or kV according to patient size and/or use of iterati ve reconstruction technique. MIP images were generated. FINDINGS: Thoracic aorta is normal in course and caliber without aneurysm or dissection. Pulmonary a rteries are adequately opacified without acute or chronic filling defects. The heart is normal in size. There is no pericardial effusion. Intrathoracic lymph nodes are not enla rged. There is no pleural effusion, pleural thickening or pneumothorax. Central airways are patent. There i s a 5 mm posterior lingular nodule. In the upper abdomen, there are multiple gallstones in the gallbladder. There are no acute osseous findings. No suspicious bony lesions. IMPRESSION: No aortic dissection or aneurysm. No pulmonary embolus. 5.0 mm solid pulmonary nodule. No routine follow-up imaging is recommended. These guidelines do not apply to immunocompromised patients and patients with cancer. Follow up in pa tients with significant comorbidities as clinically warranted. For lung cancer screening, adhere to L david-RADS guidelines. Reference: Radiology. 2017; 284(1):228-43. Electronically signed by: Ochoa Mejia MD 07/27/2019 3:38 AM CDT Due to temporary technical issues with the PACS/Fluency reporting system, reports are being signed by the in house radiologist as a courtesy to ensure prompt reporting. The interpreting radiologist is f ully responsible for the content of the report.
--- NOTE | 2019-07-27 11:40 | CON ---
History Of Present Illness: Ms. Calderon came to the hospital because of chest pain and she has evidence of myocardial necrosis on troponin testing. She has a history of a stent several years ago, 2016. Dr. Shook did the procedure. Most of the views taken were of the carotid artery. In May 2018 a stent was placid in the obtuse marginal artery, while a 50% stenosis was noted or her LAD artery. In any event, she has evidence of unstable angina. Her troponin has gone as high as 0.95. The patient still has discomfort. It is lower back pain. It is not angina. We need to give her some narcotics and dual antiplatelet therapy, get her ready for cardiac cath as soon as it can be arranged. Her physical exam of the heart and blood vessels is normal and unchanged. The ecg does not suggest acute injury. I recommend cardiac catheterization and possible repeat stent as soon as we can arrange for her to go the the cardiac label cutter. The patient seems to understand the procedure, its potentia benefits, and risks, and agrees to proceed. NATHAN Voice ID: [id number] Report ID: [id number] MTDD
--- NOTE | 2019-07-27 12:31 | CON ---
History Of Present Illness: Ms. Calderon is 69. She started having chest pain last night. The pain khalil s mostly resolved, although she has some back pain that is making her uncomfortable. She had an EKG that did not show infarction or injury, but troponins have gone up, and it is evident the patient is suffering from unstable angina. In May 2018, a stent was placed in her obtuse marginal artery. I t seemed to help her. She presented at that time with unstable angina, had a stent, and has done wel l since then. She has diabetes, hypertension, dyslipidemia, and she does not use tobacco. She seems to have a good understanding of re-doing a cardiac cath. I have recommended to her that we do a car diac cath tomorrow and she will probably get another stent. Our [employer] is closed today because of lack of radiology technicians, so we will have to delay it until tomorrow. Medications: Her outpatient medications have been Lipitor, metoprolol, aspirin, metformin, and losar magana. Allergies: SHE HAS NO ALLERGIES. Physical Examination: Vital Signs: 5 feet 1 inch, 165 pounds. General: Alert, oriented, pleasant, not in distress. Lungs: Clear. Cardiac: Within normal limits. Abdomen: Soft. Extremities: No significant edema. Distal pulses palpable. Assessment And Plan: The patient needs to undergo a cardiac cath. We will do it tomorrow. She will be n.p.o. after midnight and she signed a consent. Dr. Shook will do it tomorrow from the femoral approach. MARIAM/RIANNA Voice ID: [id number] Report ID: [id number]
--- NOTE | 2019-07-27 15:56 | ECHO ---
HEIGHT: 5 ft 1 in WEIGHT: 165 lb 9.6 oz DATE OF STUDY: 07/27/[address]: Pop Wharton MD 2-DIMENSIONAL: YES M.MODE: YES DOPPLER: YES COLOR FLOW: YES TDS: NO PORTABLE: NO DEFINITY: NO BUBBLE STUDY: NO DIAGNOSIS: CHEST PAIN, RULE OUT ACS CARDIAC HISTORY: CATHERIZATION: YES SURGERY: NO PROSTHETIC VALVE: NO PACEMAKER: NO MEASUREMENTS (cm) DIASTOLIC (NORMALS) SYSTOLIC (NORMALS) IVSd 1.2 (0.6-1.2) LA Diam 3.5 (1.9-4.0) LVEF 67% LVIDd 3.6 (3.5-5.7) LVIDs 2.3 (2.0-3.5) %FS 37% LVPWd 1.3 (0.6-1.2) Ao Diam 2.7 (2.0-3.7) 2 DIMENSIONAL ASSESSMENT: RIGHT ATRIUM: NORMAL LEFT ATRIUM: NORMAL RIGHT VENTRICLE: NORMAL LEFT VENTRICLE: LEFT VENTRICULAR HYPERTROPHY TRICUSPID VALVE: NORMAL MITRAL VALVE: NORMAL PULMONIC VALVE: NORMAL AORTIC VALVE: NORMAL PERICARDIAL EFFUSION: NONE AORTIC ROOT: NORMAL LEFT VENTRICULAR WALL MOTION: NORMAL DOPPLER/COLOR FLOW: NORMAL COMMENTS: NORMAL LEFT VENTRICULAR EJECTION FRACTION. LEFT VENTRICULAR HYPERTROPHY. OTHERWISE NORMAL 2D ECHOCARDIOGRAM WITH DOPPLER. TECHNOLOGIST: Katy LIVINGSTON
[2019-07-27] MEDS ORDERED: ATORVASTATIN 40 MG TAB PO SCH (21:00)
[2019-07-28] MEDS ORDERED: NA CHLORIDE 0.9% 1,000 ML ONE (08:17)
[2019-07-28] MEDS: METOPROLOL TAR 50 MG TAB PO SCH (08:25)
[2019-07-28] MEDS ORDERED: CLOPIDOGREL 75 MG TABLET PO SCH (09:00)
[2019-07-28] MEDS ORDERED: ASPIRIN EC 325 MG TABLET PO SCH (09:00)
[2019-07-28] MEDS ORDERED: NA CHLORIDE 0.9% 500 ML ONE (10:44)
[2019-07-28] MEDS ORDERED: HEPA 1000U/500MLS 1,000 UNIT/500 ML BAG IV ONE (10:44)
[2019-07-28] MEDS ORDERED: ATROPINE SULF 1 MG/10 ML SYR IV ONE (10:45)
[2019-07-28] MEDS ORDERED: NA CHLORIDE 0.9% 0 ML ONE (10:45)
[2019-07-28] MEDS ORDERED: FENTANYL CITR 100 MCG/2 ML ONE (10:45)
[2019-07-28] MEDS ORDERED: MIDAZOLAM HCL 2 MG/2 ML INJ ONE (10:45)
--- NOTE | 2019-07-28 11:50 | PN ---
Patient seen and examined. Chart reviewed and case discussed with RN and Dr. Shook. Patient is sc heduled for heart catheterization today. States her chest pain is somewhat improved. Code Status: Full. Medications: List reviewed. Physical Examination: Vital Signs: Temperature 98.1, heart rate 51, blood pressure 123/57, respirations 18, O2 at 96% on r oom air. General: Awake, alert oriented x3. Elderly female, obese, BMI 31, in some mild distress. CV: S1, S2. Regular rate and rhythm. Peripheral pulses present. Respiratory: Moving air well bilaterally. No wheezing or stridor. No use of accessory muscles. Gastrointestinal: Abdomen is soft, nontender, nondistended. Positive bowel sounds. No guarding or rigidity. Extremities: No clubbing, cyanosis, or edema. No calf tenderness. Neuro: Cranial nerves 2 through 12 intact grossly. No focal neurological deficit. Speech is normal . Laboratory Data: Pending. Cardiac enzymes: Troponin 0.09, 0.95, 1.50. Lipid panel reviewed. Echo cardiogram shows EF of 67% with left ventricular hypertrophy. CT scan of the chest shows no aortic d issection or aneurysm. No PE. 5-mm solid pulmonary nodule, routine followup recommended, present in the lingula. Assessment And Plan: A 69-year-old female with; 1.Unstable angina. The patient has history of heart disease with stent in obtuse marginal artery. Plan for cardiac catheterization today. Did have some LAD blockage which may need to be stented. Ca rdiac enzymes are elevated, likely NSTEMI. 2.Coronary artery disease [place] artery and [place] heart, status post stent with angina. Continue w [facility] chest pain guidelines. Appreciate Cardiology input. 3.Diabetes mellitus type 2 with hyperglycemia, non-insulin requiring. We will continue with sliding scale insulin and monitor blood glucose levels. 4.Mixed hyperlipidemia. Lipid panel reviewed. 5.Essential hypertension, stable. We will continue home medications as appropriate. 6.Obesity, BMI 31.3. 7.Leukocytosis with neutrophilia, unclear etiology. Lungs are clear. UA is negative. We will repe at CBC in a.m. 8.5-mm lingular pulmonary nodule. Repeat CT scan in the next 1 to 3 months. Plan for cardiac ko terization today, likely discharge in the next 24 to 48 hours depending on findings. /FRANCISL Voice ID: [id number] Report ID: [id number]
--- NOTE | 2019-07-28 12:12 | EKG ---
Test Date: 2019-07-28 Test Time: 07:36:42 Assistant Branch Operations Manager: HIRAM MEASUREMENT RESULTS: Intervals: Rate: 51 NH: 156 QRSD: 80 QT: 506 QTc: 466 Ethel: P: 51 NH: 156 QRS: 64 T: 53 INTERPRETIVE STATEMENTS: Sinus bradycardia Cannot rule out Anterior infarct, age undetermined Abnormal ECG Compared to ECG 07/27/2019 01:05:54 Sinus rhythm no longer present Ventricular premature complex(es) no longer present Myocardial infarct finding still present Electronically Signed On 07-28-19 12:10:15 CDT by Alden Shook
[2019-07-28 12:26] VITALS: O2SAT 99
--- NOTE | 2019-07-28 12:38 | OP ---
Surgeon: Alden Shook MD Pipe Stem Sawyer: Nayely Abbasi. Procedures: Left heart catheterization with selective coronary arteriogram. Indication: Unstable angina and history of coronary artery disease. History Of Present Illness: Ms. Calderon is 69, has had a history of CAD. She is status post OM stent approximately a year or 2 ago. She came in with unstable angina, scheduled for a heart catheterizati on by Dr. Kingston for today as an inpatient. She was brought to the lab aide, prepped and draped in t he routine sterile fashion. She was sedated with Versed and fentanyl. A 6-Bermudian sheath introduced in the right common femoral artery successfully. Krishna catheter used to do the injection for the l eft main and the right main. Her RCA was normal, nondominant, small. Her circumflex was normal. Sh anshu had a patent OM stent in the first OM. She was left dominant. She had a very short left main. Sh e had a very long ostial LAD lesion about 80%. She had an 80% mid LAD lesion. There were no complic ations. Blood Loss: 5 cc. Anesthesia: Total conscious sedation of 30 minutes. Final Assessment: Severe coronary artery disease. Plan: To transfer the patient to [place] for BREWSTER. MARGUERITE/RIANNA Voice ID: [id number] Report ID: [id number]
[2019-07-28] MEDS: ACETAMINOPHEN 500 MG TAB PO PRN (14:02)
[2019-07-28 17:26] VITALS: BP 149/65; TEMP 99.1
[2019-07-29] MEDS ORDERED: LOSARTAN POTASSIUM 50 MG TABLET PO SCH (09:00)
--- NOTE | 2019-07-30 04:16 | DS ---
Date of Discharge: 07/28/2019 Consultants: Dr. Shook, Cardiology. Procedures: Heart catheterization. Patient will need MACHUCA, 80% stenosis LAD. Admitting Diagnoses: 1.Chest pain. 2.Coronary artery disease. 3.Diabetes mellitus type 2. 4.Hyperlipidemia. 5.Hypertension. 6.Obesity. Discharge Diagnoses: 1.Nbj-QA-waseganmh myocardial infarction. 2.Coronary artery disease, yocha dehe artery, yocha dehe heart, status post stent now with angina. 3.Diabetes mellitus type 2 with hyperglycemia, non-insulin requiring. 4.Hyperlipidemia, stable. 5.Essential hypertension, stable. 6.Obesity, body mass index 31. 7.Leukocytosis with neutrophilia. 8.5 mm lingular pulmonary nodule. Repeat CT scan in 1-3 months. Hospital Course: Patient is a 69-year-old female who comes in the hospital with chest pain. Patient was found to have NSTEMI. She was started on chest pain guidelines. Cardiology was consulted. Pat ient went for heart catheterization. As mentioned above patient was found to have 80% stenosis of LA D. Recommendations were for CT surgery bypass. Patient was transferred to [facility] per Car diology recommendation for coronary artery bypass graft. Patient tolerated the procedure well. Imag ing study did show incidental finding of 5 mm pulmonary nodule, which needs to be re-evaluated with C T scan in the next months to 3 months. Patient was then transferred to [facility] in a stable condit ion. For physical exam findings please see progress note dictated on the day of discharge. Time Spent: Total time transferring patient was 42 minutes. FERNANDO Voice ID: [id number] Report ID: [id number]
== END 2019-07-28 18:05 | disposition short-term general hospital (02) | DRG 282 ==
LOC: ER 00:28 → 2ND 04:14 → OBSVTOIN 07-28 13:24
PROVIDERS: ADMIT Hospitalist; ATTEND Family Medicine
PROC: 4A023N7 Measurement of Cardiac Sampling and Pressure, Left Heart, Percutaneous Approach (ICD-10-PCS; principal; 2019-07-28)
PROC: B205YZZ Plain Radiography of Left Heart using Other Contrast (ICD-10-PCS; 2019-07-28)
DX: I21.4 Non-ST elevation (NSTEMI) myocardial infarction (principal); I25.110 Atherosclerotic heart disease of native coronary artery with unstable angina pectoris; E11.65 Type 2 diabetes mellitus with hyperglycemia; I10 Essential (primary) hypertension; E78.2 Mixed hyperlipidemia; E66.9 Obesity, unspecified; D72.829 Elevated white blood cell count, unspecified; R91.1 Solitary pulmonary nodule; Z68.31 Body mass index [BMI] 31.0-31.9, adult
CPT/HCPCS: 36415; 71045; 71260; 80048; 80061; 80076; 81003; 82962; 83735; 83880; 84484; 85025; 85610; 90471; 90670; 93005; 93306; 93454; 96374; 99285; C1893; G0378; J0583; J1650; J2250; J3010; J7030; J7040; Q2035; Q9967

== ENCOUNTER 2020-01-11 17:20 | Emergency (ER) | payer OTHER ==
--- OUTSIDE RECORDS SUMMARY | 2020-01-11 17:25 | XMS REPORT ---
:1950 [facility] [address] [place] [address] [address] [place] [address] Care Team Providers Name Role Phone YAMEL MONIQUE Unavailable Unavailable Problems This patient has no known problems. Allergies, Adverse Reactions, Alerts This patient has no known allergies or adverse reactions. Medications This patient has no known medications. Results Test Description Test Time Test Comments Text Results Atomic Results Result Comments BASIC METABOLIC PANEL 2019-08-04 06:24:00 Test Item Value Reference Range Comments SODIUM (BEAKER) (test lpwy=781) 139 meq/L 136-145 POTASSIUM (BEAKER) (test 4.0 meq/L 3.5-5.1 ueph=190) CHLORIDE (BEAKER) (test 105 meq/L 98-107 tipv=542) CO2 (BEAKER) (test jeco=653) 30 meq/L 22-29 BLOOD UREA NITROGEN (BEAKER) 8 mg/dL 7-21 (test oyib=024) CREATININE (BEAKER) (test 0.64 mg/dL 0.57-1.25 viim=590) GLUCOSE RANDOM (BEAKER) (test 116 mg/dL 70-105 crkg=211) CALCIUM (BEAKER) (test 8.7 mg/dL 8.4-10.2 onkf=479) EGFR (BEAKER) (test deqs=9372) INSUFFICIENT CLINICAL DATA TO CALCULATE ESTIMATED GFR. CBC (HEMOGRAM ONLY)2019-08-04 05:47:00 Test Item Value Reference Range Comments WHITE BLOOD CELL COUNT (BEAKER) (test gcqx=728) 10.3 K/ L 3.5-10.5 RED BLOOD CELL COUNT (BEAKER) (test flju=145) 2.72 M/ L 3.93-5.22 HEMOGLOBIN (BEAKER) (test rjgw=588) 9.0 GM/DL 11.2-15.7 HEMATOCRIT (BEAKER) (test lfot=445) 29.0 % 34.1-44.9 MEAN CORPUSCULAR VOLUME (BEAKER) (test zkts=942) 106.6 fL 79.4-94.8 MEAN CORPUSCULAR HEMOGLOBIN (BEAKER) (test 33.1 pg 25.6-32.2 smsj=143) MEAN CORPUSCULAR HEMOGLOBIN CONC (BEAKER) (test 31.0 GM/DL 32.2-35.5 vyiw=981) RED CELL DISTRIBUTION WIDTH (BEAKER) (test 19.7 % 11.7-14.4 gzuw=501) PLATELET COUNT (BEAKER) (test vmzb=363) 343 K/CU MM 150-450 MEAN PLATELET VOLUME (BEAKER) (test rdir=641) 9.9 fL 9.4-12.3 NUCLEATED RED BLOOD CELLS (BEAKER) (test 0 /100 WBC 0-0 kcgg=323) POCT-GLUCOSE [id number] 21:22:00 Test Item Value Reference Range Comments POC-GLUCOSE METER (BEAKER) 138 mg/dL 70-110 TESTED AT [address] (test zhkf=2489) [place] [id number] POCT-GLUCOSE [id number] 17:38:00 Test Item Value Reference Range Comments POC-GLUCOSE METER (BEAKER) 131 mg/dL 70-110 TESTED AT [address] (test avdr=9560) [place] [id number] BASIC METABOLIC [id number] 06:07:00 Test Item Value Reference Range Comments SODIUM (BEAKER) (test 140 meq/L 136-145 juqq=937) POTASSIUM (BEAKER) (test 3.7 meq/L 3.5-5.1 jovt=890) CHLORIDE (BEAKER) (test 107 meq/L 98-107 jjvl=238) CO2 (BEAKER) (test isns=954) 29 meq/L 22-29 BLOOD UREA NITROGEN (BEAKER) 8 mg/dL 7-21 (test hdiz=080) CREATININE (BEAKER) (test 0.61 mg/dL 0.57-1.25 ggff=362) GLUCOSE RANDOM (BEAKER) 124 mg/dL 70-105 (test agmw=647) CALCIUM (BEAKER) (test 8.5 mg/dL 8.4-10.2 zner=252) EGFR (BEAKER) (test INSUFFICIENT CLINICAL DATA TO cxam=9852) CALCULATE ESTIMATED GFR. [id number] 06:04:00 Test Item Value Reference Range Comments MAGNESIUM (BEAKER) (test pdxx=326) 1.8 mg/dL 1.6-2.6 CBC (HEMOGRAM ONLY)2019-08-03 06:04:00 Test Item Value Reference Range Comments WHITE BLOOD CELL COUNT (BEAKER) (test zams=991) 11.8 K/ L 3.5-10.5 RED BLOOD CELL COUNT (BEAKER) (test fsky=976) 2.62 M/ L 3.93-5.22 HEMOGLOBIN (BEAKER) (test dnlq=601) 8.8 GM/DL 11.2-15.7 HEMATOCRIT (BEAKER) (test opwt=910) 28.0 % 34.1-44.9 MEAN CORPUSCULAR VOLUME (BEAKER) (test rzsa=159) 106.9 fL 79.4-94.8 MEAN CORPUSCULAR HEMOGLOBIN (BEAKER) (test 33.6 pg 25.6-32.2 ddqn=348) MEAN CORPUSCULAR HEMOGLOBIN CONC (BEAKER) (test 31.4 GM/DL 32.2-35.5 owgf=400) RED CELL DISTRIBUTION WIDTH (BEAKER) (test 19.9 % 11.7-14.4 arli=703) PLATELET COUNT (BEAKER) (test crac=960) 289 K/CU MM 150-450 MEAN PLATELET VOLUME (BEAKER) (test qgee=430) 10.4 fL 9.4-12.3 NUCLEATED RED BLOOD CELLS (BEAKER) (test 1 /100 WBC 0-0 htgv=223) POCT-GLUCOSE [id number] 23:10:00 Test Item Value Reference Range Comments POC-GLUCOSE METER (BEAKER) 127 mg/dL 70-110 TESTED AT [address] (test wqfo=0144) [facility] [address] POCT-GLUCOSE [id number] 12:36:00 Test Item Value Reference Range Comments POC-GLUCOSE METER (BEAKER) 157 mg/dL 70-110 TESTED AT [address] (test hvrn=4113) [facility] [address] CBC (HEMOGRAM ONLY)2019-08-02 06:03:00 Test Item Value Reference Range Comments WHITE BLOOD CELL COUNT (BEAKER) (test sdwr=710) 11.6 K/ L 3.5-10.5 RED BLOOD CELL COUNT (BEAKER) (test mzpm=102) 2.55 M/ L 3.93-5.22 HEMOGLOBIN (BEAKER) (test syes=073) 8.5 GM/DL 11.2-15.7 HEMATOCRIT (BEAKER) (test ryiy=451) 27.1 % 34.1-44.9 MEAN CORPUSCULAR VOLUME (BEAKER) (test btqd=619) 106.3 fL 79.4-94.8 MEAN CORPUSCULAR HEMOGLOBIN (BEAKER) (test 33.3 pg 25.6-32.2 mrup=784) MEAN CORPUSCULAR HEMOGLOBIN CONC (BEAKER) (test 31.4 GM/DL 32.2-35.5 btwf=871) RED CELL DISTRIBUTION WIDTH (BEAKER) (test 19.4 % 11.7-14.4 zmpw=284) PLATELET COUNT (BEAKER) (test lpkz=507) 263 K/CU MM 150-450 MEAN PLATELET VOLUME (BEAKER) (test fgvy=681) 10.6 fL 9.4-12.3 NUCLEATED RED BLOOD CELLS (BEAKER) (test 0 /100 WBC 0-0 mjep=339) BASIC METABOLIC [id number] 05:47:00 Test Item Value Reference Range Comments SODIUM (BEAKER) (test 139 meq/L 136-145 kihw=906) POTASSIUM (BEAKER) (test 3.7 meq/L 3.5-5.1 jugk=716) CHLORIDE (BEAKER) (test 106 meq/L 98-107 tyoz=476) CO2 (BEAKER) (test vlju=441) 30 meq/L 22-29 BLOOD UREA NITROGEN (BEAKER) 10 mg/dL 7-21 (test gupk=690) CREATININE (BEAKER) (test 0.63 mg/dL 0.57-1.25 said=628) GLUCOSE RANDOM (BEAKER) 150 mg/dL 70-105 (test fxux=822) CALCIUM (BEAKER) (test 8.3 mg/dL 8.4-10.2 cnce=067) EGFR (BEAKER) (test INSUFFICIENT CLINICAL DATA TO jnwc=0157) CALCULATE ESTIMATED GFR. [id number] 05:46:00 Test Item Value Reference Range Comments PHOSPHORUS (BEAKER) (test ndgy=384) 2.5 mg/dL 2.3-4.7 [id number] 05:46:00 Test Item Value Reference Range Comments MAGNESIUM (BEAKER) (test yzpv=443) 2.1 mg/dL 1.6-2.6 POCT-GLUCOSE [id number] 20:47:00 Test Item Value Reference Range Comments POC-GLUCOSE METER (BEAKER) 164 mg/dL 70-110 TESTED AT [address] (test cbew=4981) [place] [address] POCT-GLUCOSE [id number] 17:38:00 Test Item Value Reference Range Comments POC-GLUCOSE METER (BEAKER) 194 mg/dL 70-110 TESTED AT [address] (test qivy=0271) [place] [address] POCT-GLUCOSE [id number] 07:51:00 Test Item Value Reference Range Comments POC-GLUCOSE METER (BEAKER) 157 mg/dL 70-110 TESTED AT [address] (test wojy=3016) [place] [address] HEMOGLOBIN [id number] 07:51:00 Test Item Value Reference Range Comments HEMOGLOBIN A1C (BEAKER) (test kzct=116) 8.6 % 4.3-6.1 BASIC METABOLIC [id number] 06:11:00 Test Item Value Reference Range Comments SODIUM (BEAKER) (test 138 meq/L 136-145 twal=762) POTASSIUM (BEAKER) (test 3.8 meq/L 3.5-5.1 ekgv=560) CHLORIDE (BEAKER) (test 104 meq/L 98-107 njwk=706) CO2 (BEAKER) (test npqr=110) 28 meq/L 22-29 BLOOD UREA NITROGEN (BEAKER) 12 mg/dL 7-21 (test lvqt=346) CREATININE (BEAKER) (test 0.66 mg/dL 0.57-1.25 zagg=726) GLUCOSE RANDOM (BEAKER) 175 mg/dL 70-105 (test oweo=061) CALCIUM (BEAKER) (test 9.1 mg/dL 8.4-10.2 keso=328) EGFR (BEAKER) (test INSUFFICIENT CLINICAL DATA TO bhtu=6731) CALCULATE ESTIMATED GFR. [id number] 06:10:00 Test Item Value Reference Range Comments PHOSPHORUS (BEAKER) (test zgbf=084) 1.9 mg/dL 2.3-4.7 [id number] 06:10:00 Test Item Value Reference Range Comments MAGNESIUM (BEAKER) (test wncy=046) 2.3 mg/dL 1.6-2.6 CBC (HEMOGRAM ONLY)2019-08-01 05:30:00 Test Item Value Reference Range Comments WHITE BLOOD CELL COUNT (BEAKER) (test trok=423) 13.8 K/ L 3.5-10.5 RED BLOOD CELL COUNT (BEAKER) (test epia=180) 2.98 M/ L 3.93-5.22 HEMOGLOBIN (BEAKER) (test fcng=291) 10.0 GM/DL 11.2-15.7 HEMATOCRIT (BEAKER) (test axvi=901) 31.3 % 34.1-44.9 MEAN CORPUSCULAR VOLUME (BEAKER) (test xkbc=290) 105.0 fL 79.4-94.8 MEAN CORPUSCULAR HEMOGLOBIN (BEAKER) (test 33.6 pg 25.6-32.2 fsgi=258) MEAN CORPUSCULAR HEMOGLOBIN CONC (BEAKER) (test 31.9 GM/DL 32.2-35.5 ugrd=149) RED CELL DISTRIBUTION WIDTH (BEAKER) (test 19.0 % 11.7-14.4 zekz=120) PLATELET COUNT (BEAKER) (test kivv=487) 277 K/CU MM 150-450 MEAN PLATELET VOLUME (BEAKER) (test ogka=751) 10.5 fL 9.4-12.3 NUCLEATED RED BLOOD CELLS (BEAKER) (test 0 /100 WBC 0-0 uxnh=456) POCT-GLUCOSE [id number] 22:07:00 Test Item Value Reference Range Comments POC-GLUCOSE METER (BEAKER) 175 mg/dL 70-110 TESTED AT [address] (test txck=3119) [facility] [address] POCT-GLUCOSE [id number] 18:30:00 Test Item Value Reference Range Comments POC-GLUCOSE METER (BEAKER) 225 mg/dL 70-110 TESTED AT [address] (test gtte=6101) [facility] [address] POCT-GLUCOSE [id number] 12:17:00 Test Item Value Reference Range Comments POC-GLUCOSE METER (BEAKER) 170 mg/dL 70-[address] [facility] [address] [facility] (test vcsf=7305) [facility] [address] POCT-GLUCOSE [id number] 08:20:00 Test Item Value Reference Range Comments POC-GLUCOSE METER (BEAKER) 161 mg/dL 70-[address] [facility] [address] [facility] (test weqm=9432) [place] [id number] BASIC METABOLIC [id number] 08:18:00 Test Item Value Reference Range Comments SODIUM (BEAKER) (test 136 meq/L 136-145 mfpf=321) POTASSIUM (BEAKER) (test 4.1 meq/L 3.5-5.1 Specimen slightly hemolyzed dghs=494) CHLORIDE (BEAKER) (test 105 meq/L 98-107 whia=335) CO2 (BEAKER) (test whru=596) 24 meq/L 22-29 BLOOD UREA NITROGEN (BEAKER) 11 mg/dL 7-21 (test hlkj=220) CREATININE (BEAKER) (test 0.63 mg/dL 0.57-1.25 Specimen slightly hemolyzed lkkj=299) GLUCOSE RANDOM (BEAKER) 156 mg/dL 70-105 (test mtlq=436) CALCIUM (BEAKER) (test 8.5 mg/dL 8.4-10.2 qnhv=073) EGFR (BEAKER) (test INSUFFICIENT CLINICAL DATA TO nxgm=0701) CALCULATE ESTIMATED GFR. [id number] 08:15:00 Test Item Value Reference Range Comments MAGNESIUM (BEAKER) (test 1.9 mg/dL 1.6-2.6 Specimen slightly hemolyzed qsmh=499) [id number] 08:15:00 Test Item Value Reference Range Comments PHOSPHORUS (BEAKER) (test 2.3 mg/dL 2.3-4.7 Specimen slightly hemolyzed fckz=021) RAD, CHEST, 1 VIEW, NON [id number] 07:56:00Reason for exam:->post-op cardiac surgeryShould this be performed at the bedside?->YesFINAL REPORT RAD, CHEST, 1 VIEW, NON DEPT INDICATION: post-op cardiac surgeryCOMPARISON: Prior day's exam FINDINGS: Portable frontal view of the chest. IMPRESSION: Support Lines: Right IJ central venous catheter has been removed. Lungs and pleura: Lungs are underinflated butclear. No pneumothorax.Heart and mediastinum: Stable contours. Stable surgical changes.Additional findings: None. Signed: JR Wilkerson Robert MDReport Verified Date/Time: 07/31/2019 07:56:15 Reading Location: [facility] Radiology Reading Room Electronically signed by: DIXON WILKERSON on 07:56 [id number] 07:25:00 Test Item Value Reference Range Comments PROTIME (BEAKER) (test ochx=480) 14.5 seconds 11.9-14.2 INR (BEAKER) (test ueaz=765) 1.2 <=5.9 PARTIAL THROMBOPLASTIN TIME (BEAKER) (test 33.1 seconds 22.5-36.0 boip=225) Effective 03/11/2019: PT Reference Range ChangeNew: 11.9-14.2 Previous: 11.7- 14.7RECOMMENDED COUMADIN/WARFARIN INR THERAPY RANGESSTANDARD DOSE: 2.0-3.0 Includes: PROPHYLAXIS for venous thrombosis, systemic embolization; TREATMENT for venous thrombosis and/or pulmonary embolus.HIGH RISK: Target INR is2.5-3.5 for patients wiht mechanical heart valves.CBC (HEMOGRAM ONLY)2019-07-31 07:14:00 Test Item Value Reference Range Comments WHITE BLOOD CELL COUNT (BEAKER) (test qlzk=860) 14.3 K/ L 3.5-10.5 RED BLOOD CELL COUNT (BEAKER) (test sdbe=186) 2.74 M/ L 3.93-5.22 HEMOGLOBIN (BEAKER) (test zeth=022) 8.9 GM/DL 11.2-15.7 HEMATOCRIT (BEAKER) (test sskf=054) 28.6 % 34.1-44.9 MEAN CORPUSCULAR VOLUME (BEAKER) (test euzd=612) 104.4 fL 79.4-94.8 MEAN CORPUSCULAR HEMOGLOBIN (BEAKER) (test 32.5 pg 25.6-32.2 mcna=298) MEAN CORPUSCULAR HEMOGLOBIN CONC (BEAKER) (test 31.1 GM/DL 32.2-35.5 oqmi=770) RED CELL DISTRIBUTION WIDTH (BEAKER) (test 19.2 % 11.7-14.4 kdsv=494) PLATELET COUNT (BEAKER) (test dsnf=112) 218 K/CU MM 150-450 MEAN PLATELET VOLUME (BEAKER) (test jcwq=353) 11.0 fL 9.4-12.3 NUCLEATED RED BLOOD CELLS (BEAKER) (test 0 /100 WBC 0-0 gwpc=706) POCT-GLUCOSE [id number] 21:32:00 Test Item Value Reference Range Comments POC-GLUCOSE METER (BEAKER) 168 mg/dL 70-110 TESTED AT [address] (test ydvn=7356) [facility] [address] POCT-GLUCOSE [id number] 17:55:00 Test Item Value Reference Range Comments POC-GLUCOSE METER (BEAKER) 172 mg/dL 70-110 TESTED AT [address] (test eldu=4264) [place] [id number] POCT-GLUCOSE [id number] 15:34:00 Test Item Value Reference Range Comments POC-GLUCOSE METER (BEAKER) 152 mg/dL 70-110 TESTED AT [address] (test igry=1896) [place] [address] POCT-GLUCOSE [id number] 12:52:00 Test Item Value Reference Range Comments POC-GLUCOSE METER (BEAKER) 222 mg/dL 70-110 TESTED AT [address] (test shoj=0264) [facility] [address] POCT-GLUCOSE [id number] 07:19:00 Test Item Value Reference Range Comments POC-GLUCOSE METER (BEAKER) 185 mg/dL 70-110 TESTED AT [address] (test jhil=7784) [place] [address] [id number] 06:16:00 Test Item Value Reference Range Comments ACTIVATED CLOTTING TIME 109 sec Reference Range: 74-137 (BEAKER) (test glmq=450) seconds, Baseline/TESTED AT [address] [address] [id number] 06:16:00 Test Item Value Reference Range Comments ACTIVATED CLOTTING TIME 543 sec Reference Range: 74-137 (BEAKER) (test trlb=065) seconds, Baseline/TESTED AT [facility] [address] [facility] [address] [id number] 06:16:00 Test Item Value Reference Range Comments ACTIVATED CLOTTING TIME 510 sec Reference Range: 74-137 (BEAKER) (test lwvm=119) seconds, Baseline/TESTED AT [facility] [address] [facility] [address] BASIC METABOLIC [id number] 06:04:00 Test Item Value Reference Range Comments SODIUM (BEAKER) (test 137 meq/L 136-145 gyxq=570) POTASSIUM (BEAKER) (test 4.3 meq/L 3.5-5.1 prta=346) CHLORIDE (BEAKER) (test 108 meq/L 98-107 ztha=446) CO2 (BEAKER) (test tevg=997) 26 meq/L 22-29 BLOOD UREA NITROGEN (BEAKER) 8 mg/dL 7-21 (test lfjf=860) CREATININE (BEAKER) (test 0.62 mg/dL 0.57-1.25 eaxj=946) GLUCOSE RANDOM (BEAKER) 189 mg/dL 70-105 (test evot=488) CALCIUM (BEAKER) (test 8.2 mg/dL 8.4-10.2 wdxc=318) EGFR (BEAKER) (test INSUFFICIENT CLINICAL DATA TO fnnl=3921) CALCULATE ESTIMATED GFR. [id number] 06:02:00 Test Item Value Reference Range Comments PHOSPHORUS (BEAKER) (test bwkq=624) 3.7 mg/dL 2.3-4.7 [id number] 06:02:00 Test Item Value Reference Range Comments MAGNESIUM (BEAKER) (test yjyl=696) 2.0 mg/dL 1.6-2.6 [id number] 05:57:00 Test Item Value Reference Range Comments PROTIME (BEAKER) (test lkwa=483) 15.4 seconds 11.9-14.2 INR (BEAKER) (test djrl=147) 1.3 <=5.9 PARTIAL THROMBOPLASTIN TIME (BEAKER) (test 34.0 seconds 22.5-36.0 omaj=056) Effective 03/11/2019: PT Reference Range ChangeNew: 11.9-14.2 Previous: 11.7- 14.7RECOMMENDED COUMADIN/WARFARIN INR THERAPY RANGESSTANDARD DOSE: 2.0-3.0 Includes: PROPHYLAXIS for venous thrombosis, systemic embolization; TREATMENT for venous thrombosis and/or pulmonary embolus.HIGH RISK: Target INR is2.5-3.5 for patients wiht mechanical heart valves.PROTHROMBIN [id number] 05:56: 00 Test Item Value Reference Range Comments PROTIME (BEAKER) (test lqtl=394) 15.4 seconds 11.9-14.2 INR (BEAKER) (test oggz=275) 1.3 <=5.9 Effective 03/11/2019: PT Reference Range ChangeNew: 11.9-14.2 Previous: 11.7- 14.7RECOMMENDED COUMADIN/WARFARIN INR THERAPY RANGESSTANDARD DOSE: 2.0-3.0 Includes: PROPHYLAXIS for venous thrombosis, systemic embolization; TREATMENT for venous thrombosis and/or pulmonary embolus.HIGH RISK: Target INR is2.5-3.5 for patients wiht mechanical heart valves.CALCIUM, [id number] 05:55:00 Test Item Value Reference Range Comments CALCIUM IONIZED (BEAKER) (test vlwt=171) 1.17 mmol/L 1.12-1.27 PH, BLOOD (BEAKER) (test tmml=6650) 7.38 CBC W/PLT COUNT & AUTO [id number] 05:55:00 Test Item Value Reference Range Comments WHITE BLOOD CELL COUNT (BEAKER) (test dlwr=345) 11.2 K/ L 3.5-10.5 RED BLOOD CELL COUNT (BEAKER) (test xokz=662) 2.63 M/ L 3.93-5.22 HEMOGLOBIN (BEAKER) (test tmhz=214) 8.5 GM/DL 11.2-15.7 HEMATOCRIT (BEAKER) (test cebw=613) 26.7 % 34.1-44.9 MEAN CORPUSCULAR VOLUME (BEAKER) (test uozb=002) 101.5 fL 79.4-94.8 MEAN CORPUSCULAR HEMOGLOBIN (BEAKER) (test 32.3 pg 25.6-32.2 dbyu=718) MEAN CORPUSCULAR HEMOGLOBIN CONC (BEAKER) (test 31.8 GM/DL 32.2-35.5 reaa=152) RED CELL DISTRIBUTION WIDTH (BEAKER) (test 18.9 % 11.7-14.4 hupk=017) PLATELET COUNT (BEAKER) (test rlhg=439) 215 K/CU MM 150-450 MEAN PLATELET VOLUME (BEAKER) (test puxd=872) 10.8 fL 9.4-12.3 NUCLEATED RED BLOOD CELLS (BEAKER) (test 0 /100 WBC 0-0 vhsq=892) NEUTROPHILS RELATIVE PERCENT (BEAKER) (test 76 % atik=676) LYMPHOCYTES RELATIVE PERCENT (BEAKER) (test 14 % stup=687) MONOCYTES RELATIVE PERCENT (BEAKER) (test 6 % jdgn=381) EOSINOPHILS RELATIVE PERCENT (BEAKER) (test 3 % wtvz=766) BASOPHILS RELATIVE PERCENT (BEAKER) (test 0 % ekla=694) NEUTROPHILS ABSOLUTE COUNT (BEAKER) (test 8.53 K/ L 1.56-6.13 cill=960) LYMPHOCYTES ABSOLUTE COUNT (BEAKER) (test 1.55 K/ L 1.18-3.74 mtuf=537) MONOCYTES ABSOLUTE COUNT (BEAKER) (test 0.72 K/ L 0.24-0.36 xgba=279) EOSINOPHILS ABSOLUTE COUNT (BEAKER) (test 0.30 K/ L 0.04-0.36 ihvt=758) BASOPHILS ABSOLUTE COUNT (BEAKER) (test 0.05 K/ L 0.01-0.08 lcfn=934) IMMATURE GRANULOCYTES-RELATIVE PERCENT (BEAKER) 0 % 0-1 (test pcxs=1733) OXYGEN SATURATION, [id number] 05:49:00 Test Item Value Reference Range Comments O2 SATURATION (MEASURED) (BEAKER) (test zzwx=1855) 77.2 % RAD, CHEST, 1 VIEW, NON [id number] 05:35:00Reason for exam:->post-op cardiac surgeryShould this be performed at the bedside?->YesFINAL REPORT RAD, CHEST, 1 VIEW, NON DEPT INDICATION: post-op cardiac surgeryCOMPARISON: Prior day's exam FINDINGS: Portable frontal view of the chest. IMPRESSION: Support Lines: Interval extubation. Otherwise unchanged support apparatus. Lungs and pleura: Unchanged airspaceopacities. No pneumothorax.Heart and mediastinum: Stable contours. Stable surgical changes.Additional findings: None. Signed: Ottoniel Brand Verified Date/Time: 07/30/2019 05:35:16 [id number] 18:41:00 Test Item Value Reference Range Comments POTASSIUM (BEAKER) (test qgkq=864) 4.2 meq/L 3.5-5.1 PRN - repeat potassium levels every 1 hour until glucose level is less than 450 mg/dLPOCT-GLUCOSE [id number] 18:14:00 Test Item Value Reference Range Comments POC-GLUCOSE METER (BEAKER) 175 mg/dL 70-[address] [facility] [address] [facility] (test pdwi=2769) [facility] [address] BLOOD GAS, [id number] 16:57:00 Test Item Value Reference Range Comments PH ARTERIAL (BEAKER) (test zmtn=787) 7.41 7.35-7.45 PCO2 ARTERIAL (BEAKER) (test ckzq=259) 36 mmHg 35-45 PO2 ARTERIAL (BEAKER) (test wboj=534) 149 mmHg 80-90 O2 SATURATION ARTERIAL (BEAKER) (test ipeo=126) 98.9 % 96.0-97.0 HCO3 ARTERIAL (BEAKER) (test axcw=871) 23 mmol/L 21-29 BASE EXCESS ARTERIAL (BEAKER) (test zaqi=690) -1.8 mmol/L -2.0-3.0 PATIENT TEMPERATURE (BEAKER) (test nipg=1199) 37.2 C FIO2 (BEAKER) (test zutt=0168) 40.0 % HEMOGLOBIN [id number] 16:17:00 Test Item Value Reference Range Comments HEMOGLOBIN A1C (BEAKER) (test pvik=846) 9.5 % 4.3-6.1 PLATELET AGGREGATION: FUNCTION [id number] 15:15:00 Test Item Value Reference Range Comments [id number] (BEAKER) Giovanni Tee M.D. (electonic (test flzq=3968) signature) PLATELET COUNT AGG (BEAKER) 273 K/CU MM 150-450 (test wffb=8857) PLATELET RICH PLASMA(BEAKER) 258 k/cu mm 200-300 (test xpjr=5172) PLATELET FUNCTION SCREEN Pattern of disaggregation INTERPRETATION (BEAKER) (test present with ADP which may be cmdy=1743) characteristic of P2Y12 inhibitor effect. Correlation with medication history is required. Platelet Function Screen results may be falsely low with platelet counts<75, 000/cu mm.POCT-GLUCOSE [id number] 15:07:00 Test Item Value Reference Range Comments POC-GLUCOSE METER (BEAKER) 125 mg/dL 70-110 TESTED AT [address] (test tgoy=3997) [place] [address] POCT-GLUCOSE [id number] 14:26:00 Test Item Value Reference Range Comments POC-GLUCOSE METER (BEAKER) 85 mg/dL 70-110 TESTED AT [address] (test gbhe=0179) [place] [address] POCT-GLUCOSE [id number] 14:14:00 Test Item Value Reference Range Comments POC-GLUCOSE METER (BEAKER) 88 mg/dL 70-110 TESTED AT [address] (test mycs=8134) [place] [address] RAD, CHEST, 1 VIEW, NON [id number] 13:11:00Reason for exam:->Status post CV Surgery post op day 0Should this be performed at the bedside?->YesFINAL REPORT INDICATION: Status post CV Surgery post op day 0 TECHNIQUE: Chest radiograph, single view, portable technique. FINDINGS / IMPRESSION: Patient is status post median sternotomy and cardiac surgery. Endotracheal tube is in good position with the tip 2 cm above the néstor.Right internal jugular line terminates in the low SVC.A single mediastinal tube and single left chest tube are present. No mediastinal widening, apical cap, pneumothorax, or pulmonary edema demonstrated.In summary, no evidence of postoperative complication. Signed: Abdelrahman Maloney MDReport VerifiedDate/Time : 07/29/2019 13:11:13 Reading Location: [facility] Reading Room POCT-GLUCOSE [id number] 13:00:00 Test Item Value Reference Range Comments POC-GLUCOSE METER (BEAKER) 132 mg/dL 70-110 TESTED AT [address] (test ndqo=1951) [place] [id number] BASIC METABOLIC [id number] 12:28:00 Test Item Value Reference Range Comments SODIUM (BEAKER) (test 136 meq/L 136-145 dqbp=161) POTASSIUM (BEAKER) (test 3.8 meq/L 3.5-5.1 zdcr=315) CHLORIDE (BEAKER) (test 107 meq/L 98-107 rsfc=524) CO2 (BEAKER) (test fqba=337) 22 meq/L 22-29 BLOOD UREA NITROGEN (BEAKER) 13 mg/dL 7-21 (test csab=877) CREATININE (BEAKER) (test 0.70 mg/dL 0.57-1.25 qvup=474) GLUCOSE RANDOM (BEAKER) 173 mg/dL 70-105 (test oemb=697) CALCIUM (BEAKER) (test 8.9 mg/dL 8.4-10.2 zjyv=635) EGFR (BEAKER) (test INSUFFICIENT CLINICAL DATA TO vxao=5930) CALCULATE ESTIMATED GFR. [id number] 12:27:00 Test Item Value Reference Range Comments PHOSPHORUS (BEAKER) (test mdhr=487) 2.3 mg/dL 2.3-4.7 [id number] 12:27:00 Test Item Value Reference Range Comments MAGNESIUM (BEAKER) (test ammz=085) 2.6 mg/dL 1.6-2.6 [id number] 12:26:00 Test Item Value Reference Range Comments PARTIAL THROMBOPLASTIN TIME (BEAKER) (test 27.4 seconds 22.5-36.0 losc=824) PROTHROMBIN TIME/[id number] 12:25:00 Test Item Value Reference Range Comments PROTIME (BEAKER) (test gqws=894) 15.7 seconds 11.9-14.2 INR (BEAKER) (test plls=947) 1.3 <=5.9 Effective 03/11/2019: PT Reference Range ChangeNew: 11.9-14.2 Previous: 11.7- 14.7RECOMMENDED COUMADIN/WARFARIN INR THERAPY RANGESSTANDARD DOSE: 2.0-3.0 Includes: PROPHYLAXIS for venous thrombosis, systemic embolization; TREATMENT for venous thrombosis and/or pulmonary embolus.HIGH RISK: Target INR is2.5-3.5 for patients wiht mechanical heart valves.LACTIC ACID, [id number] 12:21: 00 Test Item Value Reference Range Comments LACTATE BLOOD ARTERIAL (2) (BEAKER) (test 1.2 mmol/L 0.5-2.2 ubre=2185) CBC W/PLT COUNT & AUTO [id number] 12:08:00 Test Item Value Reference Range Comments WHITE BLOOD CELL COUNT (BEAKER) (test vspr=382) 18.4 K/ L 3.5-10.5 RED BLOOD CELL COUNT (BEAKER) (test wtzh=129) 2.60 M/ L 3.93-5.22 HEMOGLOBIN (BEAKER) (test sunq=794) 8.5 GM/DL 11.2-15.7 HEMATOCRIT (BEAKER) (test iwoq=367) 26.2 % 34.1-44.9 MEAN CORPUSCULAR VOLUME (BEAKER) (test wceg=015) 100.8 fL 79.4-94.8 MEAN CORPUSCULAR HEMOGLOBIN (BEAKER) (test 32.7 pg 25.6-32.2 onpd=516) MEAN CORPUSCULAR HEMOGLOBIN CONC (BEAKER) (test 32.4 GM/DL 32.2-35.5 hcww=478) RED CELL DISTRIBUTION WIDTH (BEAKER) (test 18.7 % 11.7-14.4 dubl=162) PLATELET COUNT (BEAKER) (test qlto=984) 236 K/CU MM 150-450 MEAN PLATELET VOLUME (BEAKER) (test tnxd=379) 10.2 fL 9.4-12.3 NUCLEATED RED BLOOD CELLS (BEAKER) (test 0 /100 WBC 0-0 ymsu=675) NEUTROPHILS RELATIVE PERCENT (BEAKER) (test 83 % nimo=771) LYMPHOCYTES RELATIVE PERCENT (BEAKER) (test 11 % thtk=775) MONOCYTES RELATIVE PERCENT (BEAKER) (test 3 % najj=617) EOSINOPHILS RELATIVE PERCENT (BEAKER) (test 1 % kjzf=512) BASOPHILS RELATIVE PERCENT (BEAKER) (test 0 % teiq=518) NEUTROPHILS ABSOLUTE COUNT (BEAKER) (test 15.32 K/ L 1.56-6.13 ntpf=336) LYMPHOCYTES ABSOLUTE COUNT (BEAKER) (test 2.08 K/ L 1.18-3.74 henn=208) MONOCYTES ABSOLUTE COUNT (BEAKER) (test 0.56 K/ L 0.24-0.36 sosp=179) EOSINOPHILS ABSOLUTE COUNT (BEAKER) (test 0.13 K/ L 0.04-0.36 ibui=177) BASOPHILS ABSOLUTE COUNT (BEAKER) (test 0.05 K/ L 0.01-0.08 khxl=082) IMMATURE GRANULOCYTES-RELATIVE PERCENT (BEAKER) 1 % 0-1 (test dgkd=1360) CALCIUM, [id number] 12:04:00 Test Item Value Reference Range Comments CALCIUM IONIZED (BEAKER) (test bkts=311) 1.15 mmol/L 1.12-1.27 PH, BLOOD (BEAKER) (test wzqr=8687) 7.44 BLOOD GAS, [id number] 12:03:00 Test Item Value Reference Range Comments PH ARTERIAL (BEAKER) (test tocz=861) 7.44 7.35-7.45 PCO2 ARTERIAL (BEAKER) (test xjfx=849) 37 mmHg 35-45 PO2 ARTERIAL (BEAKER) (test fcva=838) 105 mmHg 80-90 O2 SATURATION ARTERIAL (BEAKER) (test pssb=839) 98.0 % 96.0-97.0 HCO3 ARTERIAL (BEAKER) (test synn=485) 25 mmol/L 21-29 BASE EXCESS ARTERIAL (BEAKER) (test epyi=608) 0.7 mmol/L -2.0-3.0 PATIENT TEMPERATURE (BEAKER) (test atoj=9456) 36.7 C FIO2 (BEAKER) (test mqri=4834) 60.0 % OXYGEN SATURATION, [id number] 12:00:00 Test Item Value Reference Range Comments O2 SATURATION (MEASURED) (BEAKER) (test sxnp=5905) 66.6 % For occult [id number] 11:53:00 Test Item Value Reference Range Comments PHOSPHORUS (BEAKER) (test wsyf=680) 2.9 mg/dL 2.3-4.7 CALCIUM, [id number] 10:32:00 Test Item Value Reference Range Comments CALCIUM IONIZED (BEAKER) (test mlfl=743) 1.03 mmol/L 1.12-1.27 PH, BLOOD (BEAKER) (test xbmx=8117) 7.33 BLOOD GAS, [id number] 10:31:00 Test Item Value Reference Range Comments PH ARTERIAL (BEAKER) (test xyoa=904) 7.35 7.35-7.45 PCO2 ARTERIAL (BEAKER) (test rkfj=250) 42 mmHg 35-45 PO2 ARTERIAL (BEAKER) (test shvs=315) 254 mmHg 80-90 O2 SATURATION ARTERIAL (BEAKER) (test eixw=187) 99.5 % 96.0-97.0 HCO3 ARTERIAL (BEAKER) (test xrxv=541) 23 mmol/L 21-29 BASE EXCESS ARTERIAL (BEAKER) (test jlln=444) -2.9 mmol/L -2.0-3.0 PATIENT TEMPERATURE (BEAKER) (test gtrm=4987) 36.0 C FIO2 (BEAKER) (test uume=2639) 100.0 % SODIUM NA-STAT [id number] 10:31:00 Test Item Value Reference Range Comments SODIUM (BEAKER) (test glig=165) 133 meq/L 135-148 GLUCOSE-STAT [id number] 10:31:00 Test Item Value Reference Range Comments GLUCOSE RANDOM (BEAKER) (test icrf=534) 226 mg/dL 70-110 HGB/HCT (H&H) - STAT [id number] 10:31:00 Test Item Value Reference Range Comments HEMOGLOBIN (BEAKER) (test abwu=061) 8.0 g/dL 12.0-15.0 HEMATOCRIT (BEAKER) (test phmj=445) 24.0 % 36.0-45.0 POTASSIUM-STAT [id number] 10:30:00 Test Item Value Reference Range Comments POTASSIUM (BEAKER) (test wuax=035) 4.2 meq/L 3.6-5.5 BLOOD GAS, [id number] 10:05:00 Test Item Value Reference Range Comments PH ARTERIAL (BEAKER) (test lidb=671) 7.36 7.35-7.45 PCO2 ARTERIAL (BEAKER) (test owit=296) 42 mmHg 35-45 PO2 ARTERIAL (BEAKER) (test nhkq=829) 297 mmHg 80-90 O2 SATURATION ARTERIAL (BEAKER) (test gvfu=386) 99.7 % 96.0-97.0 HCO3 ARTERIAL (BEAKER) (test jdyf=036) 23 mmol/L 21-29 BASE EXCESS ARTERIAL (BEAKER) (test wjju=253) -2.5 mmol/L -2.0-3.0 PATIENT TEMPERATURE (BEAKER) (test zegq=9395) 36.7 C FIO2 (BEAKER) (test hqef=8474) 80.0 % SODIUM NA-STAT [id number] 10:05:00 Test Item Value Reference Range Comments SODIUM (BEAKER) (test ldku=848) 127 meq/L 135-148 POTASSIUM-STAT [id number] 10:05:00 Test Item Value Reference Range Comments POTASSIUM (BEAKER) (test vylw=656) 5.9 meq/L 3.6-5.5 GLUCOSE-STAT [id number] 10:05:00 Test Item Value Reference Range Comments GLUCOSE RANDOM (BEAKER) (test wvsm=144) 241 mg/dL 70-110 HGB/HCT (H&H) - STAT [id number] 10:05:00 Test Item Value Reference Range Comments HEMOGLOBIN (BEAKER) (test pcrq=700) 8.0 g/dL 12.0-15.0 HEMATOCRIT (BEAKER) (test rzgs=046) 24.0 % 36.0-45.0 BLOOD GAS, [id number] 09:51:00 Test Item Value Reference Range Comments PH ARTERIAL (BEAKER) (test jcck=400) 7.34 7.35-7.45 PCO2 ARTERIAL (BEAKER) (test btro=308) 44 mmHg 35-45 PO2 ARTERIAL (BEAKER) (test rqtg=659) 337 mmHg 80-90 O2 SATURATION ARTERIAL (BEAKER) (test pabl=172) 99.7 % 96.0-97.0 HCO3 ARTERIAL (BEAKER) (test vovq=440) 24 mmol/L 21-29 BASE EXCESS ARTERIAL (BEAKER) (test rjbl=856) -2.5 mmol/L -2.0-3.0 PATIENT TEMPERATURE (BEAKER) (test swjq=6758) 36.0 C FIO2 (BEAKER) (test byri=5114) 80.0 % SODIUM NA-STAT [id number] 09:51:00 Test Item Value Reference Range Comments SODIUM (BEAKER) (test wcfe=919) 130 meq/L 135-148 GLUCOSE-STAT [id number] 09:51:00 Test Item Value Reference Range Comments GLUCOSE RANDOM (BEAKER) (test qpbs=937) 249 mg/dL 70-110 HGB/HCT (H&H) - STAT [id number] 09:51:00 Test Item Value Reference Range Comments HEMOGLOBIN (BEAKER) (test yxvi=749) 8.1 g/dL 12.0-15.0 HEMATOCRIT (BEAKER) (test iavy=369) 24.0 % 36.0-45.0 POTASSIUM-STAT [id number] 09:50:00 Test Item Value Reference Range Comments POTASSIUM (BEAKER) (test etsy=051) 5.4 meq/L 3.6-5.5 BLOOD GAS, [id number] 09:23:00 Test Item Value Reference Range Comments PH ARTERIAL (BEAKER) (test kvgd=756) 7.46 7.35-7.45 PCO2 ARTERIAL (BEAKER) (test xvri=830) 39 mmHg 35-45 PO2 ARTERIAL (BEAKER) (test rted=397) 248 mmHg 80-90 O2 SATURATION ARTERIAL (BEAKER) (test cbrs=148) 99.6 % 96.0-97.0 HCO3 ARTERIAL (BEAKER) (test ijpv=388) 27 mmol/L 21-29 BASE EXCESS ARTERIAL (BEAKER) (test waon=710) 2.9 mmol/L -2.0-3.0 PATIENT TEMPERATURE (BEAKER) (test lawc=3248) 36.0 C FIO2 (BEAKER) (test smtc=9600) 100.0 % SODIUM NA-STAT [id number] 09:23:00 Test Item Value Reference Range Comments SODIUM (BEAKER) (test wgct=083) 132 meq/L 135-148 GLUCOSE-STAT [id number] 09:23:00 Test Item Value Reference Range Comments GLUCOSE RANDOM (BEAKER) (test mnyb=557) 164 mg/dL 70-110 CALCIUM, [id number] 09:23:00 Test Item Value Reference Range Comments CALCIUM IONIZED (BEAKER) (test omhk=742) 1.05 mmol/L 1.12-1.27 PH, BLOOD (BEAKER) (test vvmt=4985) 7.44 POTASSIUM-STAT [id number] 09:22:00 Test Item Value Reference Range Comments POTASSIUM (BEAKER) (test eeab=678) 4.0 meq/L 3.6-5.5 HGB/HCT (H&H) - STAT [id number] 09:22:00 Test Item Value Reference Range Comments HEMOGLOBIN (BEAKER) (test wyrw=217) 12.2 g/dL 12.0-15.0 HEMATOCRIT (BEAKER) (test adnw=176) 36.0 % 36.0-45.0 RAD, CHEST, 1 VIEW, NON [id number] 07:12:00Reason for exam:->preopShould this be performed at the bedside?->YesFINAL REPORT INDICATION: preop COMPARISON: None TECHNIQUE: Single frontal view of the chest. FINDINGS: Lungs and pleura: Clear lungs. No effusion.Heart and mediastinum: Normal heart size. Unremarkable mediastinal contours.Osseous structures: No acute abnormality.Other: None. IMPRESSION: No acute intrathoracic abnormality. Signed: Deirdre De Jesus MDReport Verified Date/Time: 07/29/2019 07:12:45 [id number] 07:01:00 Test Item Value Reference Range Comments PARTIAL THROMBOPLASTIN TIME (BEAKER) (test 31.2 seconds 22.5-36.0 rloo=581) BASIC METABOLIC [id number] 05:57:00 Test Item Value Reference Range Comments SODIUM (BEAKER) (test 138 meq/L 136-145 vhum=320) POTASSIUM (BEAKER) (test 4.0 meq/L 3.5-5.1 tkgn=075) CHLORIDE (BEAKER) (test 104 meq/L 98-107 flho=020) CO2 (BEAKER) (test sddm=383) 29 meq/L 22-29 BLOOD UREA NITROGEN (BEAKER) 14 mg/dL 7-21 (test uzup=798) CREATININE (BEAKER) (test 0.79 mg/dL 0.57-1.25 jimt=655) GLUCOSE RANDOM (BEAKER) 171 mg/dL 70-105 (test ttzk=145) CALCIUM (BEAKER) (test 8.9 mg/dL 8.4-10.2 cnvm=688) EGFR (BEAKER) (test INSUFFICIENT CLINICAL DATA TO lfyc=3398) CALCULATE ESTIMATED GFR. [id number] 05:51:00 Test Item Value Reference Range Comments MAGNESIUM (BEAKER) (test fosv=337) 1.9 mg/dL 1.6-2.6 [id number] 05:35:00 Test Item Value Reference Range Comments PROTIME (BEAKER) (test lnia=422) 13.5 seconds 11.9-14.2 INR (BEAKER) (test smyg=435) 1.1 <=5.9 PARTIAL THROMBOPLASTIN TIME (BEAKER) (test 30.4 seconds 22.5-36.0 qtbe=035) Effective 03/11/2019: PT Reference Range ChangeNew: 11.9-14.2 Previous: 11.7- 14.7RECOMMENDED COUMADIN/WARFARIN INR THERAPY RANGESSTANDARD DOSE: 2.0-3.0 Includes: PROPHYLAXIS for venous thrombosis, systemic embolization; TREATMENT for venous thrombosis and/or pulmonary embolus.HIGH RISK: Target INR is2.5-3.5 for patients wiht mechanical heart valves.PROTHROMBIN [id number] 05:34: 00 Test Item Value Reference Range Comments PROTIME (BEAKER) (test bgjn=140) 13.5 seconds 11.9-14.2 INR (BEAKER) (test nefg=643) 1.1 <=5.9 Effective 03/11/2019: PT Reference Range ChangeNew: 11.9-14.2 Previous: 11.7- 14.7RECOMMENDED COUMADIN/WARFARIN INR THERAPY RANGESSTANDARD DOSE: 2.0-3.0 Includes: PROPHYLAXIS for venous thrombosis, systemic embolization; TREATMENT for venous thrombosis and/or pulmonary embolus.HIGH RISK: Target INR is2.5-3.5 for patients wiht mechanical heart valves.CBC W/PLT COUNT & AUTO [id number] 05:24:00 Test Item Value Reference Range Comments WHITE BLOOD CELL COUNT (BEAKER) (test danv=913) 9.6 K/ L 3.5-10.5 RED BLOOD CELL COUNT (BEAKER) (test srvg=877) 3.69 M/ L 3.93-5.22 HEMOGLOBIN (BEAKER) (test citm=770) 11.9 GM/DL 11.2-15.7 HEMATOCRIT (BEAKER) (test rfhw=693) 36.6 % 34.1-44.9 MEAN CORPUSCULAR VOLUME (BEAKER) (test ifyi=031) 99.2 fL 79.4-94.8 MEAN CORPUSCULAR HEMOGLOBIN (BEAKER) (test 32.2 pg 25.6-32.2 rqng=032) MEAN CORPUSCULAR HEMOGLOBIN CONC (BEAKER) (test 32.5 GM/DL 32.2-35.5 cwsr=505) RED CELL DISTRIBUTION WIDTH (BEAKER) (test 19.1 % 11.7-14.4 zzex=486) PLATELET COUNT (BEAKER) (test spno=018) 262 K/CU MM 150-450 MEAN PLATELET VOLUME (BEAKER) (test jxor=141) 10.1 fL 9.4-12.3 NUCLEATED RED BLOOD CELLS (BEAKER) (test 0 /100 WBC 0-0 mozt=992) NEUTROPHILS RELATIVE PERCENT (BEAKER) (test 58 % nchm=285) LYMPHOCYTES RELATIVE PERCENT (BEAKER) (test 28 % xhtk=172) MONOCYTES RELATIVE PERCENT (BEAKER) (test 9 % kalc=541) EOSINOPHILS RELATIVE PERCENT (BEAKER) (test 5 % rlyo=896) BASOPHILS RELATIVE PERCENT (BEAKER) (test 1 % dese=827) NEUTROPHILS ABSOLUTE COUNT (BEAKER) (test 5.51 K/ L 1.56-6.13 bxlv=632) LYMPHOCYTES ABSOLUTE COUNT (BEAKER) (test 2.68 K/ L 1.18-3.74 parj=397) MONOCYTES ABSOLUTE COUNT (BEAKER) (test 0.81 K/ L 0.24-0.36 pmdu=135) EOSINOPHILS ABSOLUTE COUNT (BEAKER) (test 0.47 K/ L 0.04-0.36 vfbq=532) BASOPHILS ABSOLUTE COUNT (BEAKER) (test 0.07 K/ L 0.01-0.08 zism=097) IMMATURE GRANULOCYTES-RELATIVE PERCENT (BEAKER) 0 % 0-1 (test rjnf=1258)
[2020-01-11] MEDS ORDERED: NA CHLORIDE 0.9% 500 ML ONE ×2 (18:00→18:48)
[2020-01-11] MEDS ORDERED: predniSONE 20 MG TAB ONE (18:00)
[2020-01-11] MEDS ORDERED: FAMOTIDINE 20 MG/2 ML VIAL IV ONE (18:00)
[2020-01-11] MEDS ORDERED: TRIAMCINOLONE 0.5% TOP ONE (18:00)
[2020-01-11] MEDS ORDERED: METHYLPREDNISOLONE 125 MG INJ ONE (18:00)
[2020-01-11] MEDS ORDERED: DIPHENHYDRAMINE 50 MG/ML VIAL ONE (18:00)
[2020-01-11 18:15] LABS: Absolute Lymphocytes (CBC) 2.6 K/uL (0.7-4.9); Basophils % 0.5 % (0-1.3); Hematocrit 34.8 % (36.0-45.0); Lymphocytes % 16.4 % (15.3-44.8); MPV 8.3 fL (7.6-11.3); RBC Red Blood Cell Count 3.54 M/uL (3.86-4.86)
[2020-01-11 18:36] LABS: Albumin 3.3 g/dL (3.4-5.0); Bilirubin Total 0.5 mg/dL (0.2-1.0); Potassium 3.9 mmol/L (3.5-5.1); Protein, Total 8.8 g/dL (6.4-8.2)
--- NOTE | 2020-01-11 18:56 | RAD REPORT ---
EXAM DESCRIPTION: RAD - Chest Single View - 01/11/2020 6:48 pm CLINICAL HISTORY: COUGH Chest pain. COMPARISON: Chest Single View dated 07/27/2019; Chest Single View dated 03/16/2019; Chest Single View dated 06/06/2018; Chest Single View dated 05/06/2018 FINDINGS: Portable technique limits examination quality. The lungs are grossly clear. The heart is upper limit of normal in size. Sternotomy wires present. IMPRESSION: No acute intrathoracic process suspected.
[2020-01-11] MEDS ORDERED: CEFTRIAXONE/SWI 1gm 1 GM/10 ML SYR ONE (19:05)
[2020-01-11 19:19] LABS: Urine Blood TRACE (NEG); Urine Glucose NEGATIVE (NEG); Urine Protein NEGATIVE (NEG); Urine Specific Gravity 1.015 (1.005-1.030)
--- NOTE | 2020-01-11 19:21 | RAD REPORT ---
EXAM DESCRIPTION: CT - Stone Protocol - 01/11/2020 7:05 pm CLINICAL HISTORY: Flank pain. FLANK PAIN COMPARISON: Abdomen Pelvis W Contrast dated 05/06/2018 TECHNIQUE: Axial images were obtained without oral or IV contrast. Lack of contrast limits solid org an and vascular assessment. The eqdwg-ru-inmi spans the entirety of the system partially obscuring uppermost abdomen and lung bases. Coronal reformatted images were obtained and reviewed. All CT scans are performed using dose optimization technique as appropriate and may include automated exposure control or mA/KV adjustment according to patient size. FINDINGS: The lower lung conway are clear. Cholelithiasis. Imaged portions of the liver and spleen show no suspicious findings on non-contrast imaging. The panc reas and adrenal glands are normal. No pathologic lymphadenopathy in the abdomen or pelvis. 6 mm calculus is present upper pole right kidney without hydronephrosis. No additional calculus or obstructive uropathy observed. No bowel obstruction, free air, free fluid or abscess. Diverticulosis coli without diverticulitis. Ap pendectomy.Aortic atherosclerosis. No significant bony abnormality. IMPRESSION: 6 mm stone upper pole right kidney without hydronephrosis. Cholelithiasis.
--- NOTE | 2020-01-11 19:56 | EDPHYS ---
Physician Documentation [facility] Name: Ivet Calderon Age: 69 yrs Sex: Female : 1950 Arrival Date: 01/11/2020 Time: 17:23 Bed 20 Private MD: Jatinder Dallas E ED Physician Shankar Forbes HPI: 01/10 17:51 This 69 yrs old Female presents to ER via Ambulatory with complaints of Rash. [facility] 17:51 The patient's rash thought to be caused by Dermatitis. The rash is located on the [facility] buttocks and abdomen. The rash can be described as patchy, raised. Onset: The symptoms/episode began/occurred 5 day(s) ago. Associated signs and symptoms: Pertinent positives: burning sensation, itching. Severity of symptoms: At their worst the symptoms were mild in the emergency department the symptoms are unchanged. Treatment given at home: OTC lotion/cream. The patient has not experienced similar symptoms in the past. Historical: - Allergies: 17:33 No Known Allergies; jl7 - Home Meds: 17:33 aspirin 81 mg Oral chew 1 tab once daily [Active]; Lopressor 50 mg Oral tab 1 tab once jl7 daily [Active]; metformin 500 mg Oral tab 1 tab 2 times per day [Active]; Plavix Oral [Active]; - PMHx: 17:33 Diabetes - NIDDM; Hypertension; jl7 - PSHx: 17:33 Appendectomy; Angioplasty; CABG; jl7 - Immunization history:: Adult Immunizations up to date. - Social history:: Smoking status: Patient denies any tobacco usage or history of. ROS: 17:51 Constitutional: Negative for fever, chills, and weight loss, Eyes: Negative for injury, demetri pain, redness, and discharge, ENT: Negative for injury, pain, and discharge, Neck: Negative for injury, pain, and swelling, Cardiovascular: Negative for chest pain, palpitations, and edema, Respiratory: Negative for shortness of breath, cough, wheezing, and pleuritic chest pain, Abdomen/GI: Negative for abdominal pain, nausea, vomiting, diarrhea, and constipation, Back: Negative for injury and pain, : Negative for injury, bleeding, discharge, and swelling, MS/Extremity: Negative for injury and deformity, Neuro: Negative for headache, weakness, numbness, tingling, and seizure, Psych: Negative for depression, anxiety, suicide ideation, homicidal ideation, and hallucinations, Allergy/Immunology: Negative for hives, rash, and allergies, Endocrine: Negative for neck swelling, polydipsia, polyuria, polyphagia, and marked weight changes, Hematologic/Lymphatic: Negative for swollen nodes, abnormal bleeding, and unusual bruising. 17:51 Skin: Positive for rash, of the buttocks and abdomen. Exam: 17:51 Constitutional: This is a well developed, well nourished patient who is awake, alert, demetri and in no acute distress. Head/Face: Normocephalic, atraumatic. Eyes: Pupils equal round and reactive to light, extra-ocular motions intact. Lids and lashes normal. Conjunctiva and sclera are non-icteric and not injected. Cornea within normal limits. Periorbital areas with no swelling, redness, or edema. ENT: Nares patent. No nasal discharge, no septal abnormalities noted. Tympanic membranes are normal and external auditory canals are clear. Oropharynx with no redness, swelling, or masses, exudates, or evidence of obstruction, uvula midline. Mucous membranes moist. Neck: Trachea midline, no thyromegaly or masses palpated, and no cervical lymphadenopathy. Supple, full range of motion without nuchal rigidity, or vertebral point tenderness. No Meningismus. Chest/axilla: Normal chest wall appearance and motion. Nontender with no deformity. No lesions are appreciated. Cardiovascular: Regular rate and rhythm with a normal S1 and S2. No gallops, murmurs, or rubs. Normal PMI, no JVD. No pulse deficits. Respiratory: Lungs have equal breath sounds bilaterally, clear to auscultation and percussion. No rales, rhonchi or wheezes noted. No increased work of breathing, no retractions or nasal flaring. Abdomen/GI: Soft, non-tender, with normal bowel sounds. No distension or tympany. No guarding or rebound. No evidence of tenderness throughout. Back: No spinal tenderness. No costovertebral tenderness. Full range of motion. Female : Normal external genitalia. MS/ Extremity: Pulses equal, no cyanosis. Neurovascular intact. Full, normal range of motion. Neuro: Awake and alert, GCS 15, oriented to person, place, time, and situation. Cranial nerves II-XII grossly intact. Motor strength 5/5 in all extremities. Sensory grossly intact. Cerebellar exam normal. Normal gait. Psych: Awake, alert, with orientation to person, place and time. Behavior, mood, and affect are within normal limits. 17:51 Skin: Appearance: Color: normal in color, Temperature: normal temperature, Moisture: normal moisture, petechiae, not noted, ecchymosis, not noted, rash a moderate rash is noted, rash can be described as excoriated, raised, contact dermatitis. Vital Signs: 17:30 BP 157 / 74; Pulse 100; Resp 16 S; Temp 98.6(O); Pulse Ox 97% on R/A; Weight 77.11 kg jl7 (R); Height 5 ft. 1 in. (154.94 cm) (R); Pain 9/10; 20:07 BP 142 / 76; Pulse 98; Resp 18; Temp 98.5; Pulse Ox 100% on R/A; mg2 17:30 Body Mass Index 32.12 (77.11 kg, 154.94 cm) 7 MDM: 17:[address] [facility] 18:42 Data reviewed: vital signs, nurses notes, lab test result(s), radiologic studies, CT demetri scan, plain films. 19:55 Counseling: I had a detailed discussion with the patient and/or guardian regarding: the [facility] historical points, exam findings, and any diagnostic results supporting the discharge/admit diagnosis, lab results, radiology results, the need for outpatient follow up, to return to the emergency department if symptoms worsen or persist or if there are any questions or concerns that arise at home. 01/10 17:51 Order name: CBC with Diff; Complete Time: 18:[address] [facility] 01/10 17:51 Order name: Comprehensive Metabolic Panel; Complete Time: 18:[address] [facility] 01/10 18:39 Order name: Chest Single View XRAY; Complete Time: 19:17 demetri 01/10 18:39 Order name: CT Stone Protocol; Complete Time: 19:23 demetri 01/10 19:00 Order name: Urine Dipstick--Ancillary (enter results); Complete Time: 19:21 sg 01/10 17:51 Order name: Urine Dipstick-Ancillary (obtain specimen); Complete Time: 19:[address] [facility] Administered Medications: 18:00 Drug: predniSONE 20 mg Route: PO; em 19:21 Follow up: Response: No adverse reaction mg2 18:04 Drug: NS 0.9% 500 ml Route: IV; Rate: bolus; Site: right antecubital; em 19:22 Follow up: Response: No adverse reaction; IV Status: Completed infusion; IV Intake: mg2 500ml 18:04 Drug: Benadryl 25 mg Route: IVP; Site: right antecubital; em 19:22 Follow up: Response: No adverse reaction mg2 18:06 Drug: SOLU-Medrol 125 mg Route: IVP; Site: right antecubital; em 19:21 Follow up: Response: No adverse reaction; Marked relief of symptoms mg2 18:08 Drug: Pepcid 40 mg Route: IVP; Site: right antecubital; em 19:21 Follow up: Response: No adverse reaction mg2 18:49 Drug: NS 0.9% 500 ml Route: IV; Rate: bolus; Site: right antecubital; em 19:19 Drug: Kenalog Cream (0.5 %) 1 application Route: Topical; Site: affected area; mg2 19:20 Follow up: Response: No adverse reaction mg2 19:19 Drug: Rocephin 1 grams Route: IV; Rate: per protocol; Site: right antecubital; mg2 Disposition: 01/11 05:53 Co-signature as Attending Physician, Shankar Forbes MD I agree with the assessment and demetri plan of care. Disposition: 01/11/20 19:55 Discharged to Home. Impression: Dermatitis, unspecified, Elevated white blood cell count, Essential (primary) hypertension, Type 2 diabetes mellitus, Urinary tract infection, site not specified. - Condition is Stable. - Discharge Instructions: Contact Dermatitis, Type 2 Diabetes Mellitus, Diagnosis, Adult, Hypertension, Rash, Urinary Tract Infection, Adult, Urinary Tract Infection, Adult, Hkgd-yw-Pzwm, Hypertension, Jieu-lr-Reta, Rash, Vdee-ta-Qgnt, How to Take Your Blood Pressure, Kpsl-zj-Mjbi, Contact Dermatitis, Crnn-ub-Thvj, Type 2 Diabetes Mellitus, Diagnosis, Adult, Rqdq-ks-Jdnp, Managing Your Hypertension. - Prescriptions for Benadryl 25 mg Oral Capsule - take 1 capsule by ORAL route every 6 hours As needed; 30 tablet. Cipro 250 mg Oral Tablet - take 2 tablet by ORAL route every 12 hours; 20 tablet. Pepcid 20 mg Oral Tablet - take 1 tablet by ORAL route every 12 hours for 10 days; 20 tablet. Triamcinolone Acetonide 0.5 % Topical Cream - apply 1 application by TOPICAL route 2 times per day As needed; 1 tube. Medrol (Triston) 4 mg Oral Tablets, Dose Pack - take 1 tablet by ORAL route as directed - follow package instructions; 1 packet. - Medication Reconciliation Form, Thank You Letter, Antibiotic Education, Prescription Opioid Use form. - Follow up: Jatinder Dallas; When: 2 - 3 days; Reason: Recheck today's complaints, Continuance of care, Re-evaluation by your physician. - Problem is new. - Symptoms have improved. Signatures: Dispatcher [employer] EDShankar Mccurdy MD MD cha Mickail, Joel, PA PA jmm Munoz, Edgar, RN RN em Clinton Levy RN RN jl7 Lyle Hull RN RN mg2 Corrections: (The following items were deleted from the chart) 01/10 20:10 19:55 01/11/2020 19:55 Discharged to Home. Impression: Dermatitis, unspecified; mg2 Elevated white blood cell count; Essential (primary) hypertension; Type 2 diabetes mellitus; Urinary tract infection, site not specified. Condition is Stable. Discharge Instructions: Contact Dermatitis, Type 2 Diabetes Mellitus, Diagnosis, Adult, Hypertension, Rash, Hypertension, Bnwd-wc-Ijhf, Rash, Uxbc-ox-Vdxu, How to Take Your Blood Pressure, Rtqo-ey-Sgsh, Contact Dermatitis, Snho-ex-Qguw, Type 2 Diabetes Mellitus, Diagnosis, Adult, Blri-bn-Ijiz, Managing Your Hypertension, Urinary Tract Infection, Adult, Urinary Tract Infection, Adult, Odmr-zi-Gjbu. Prescriptions for Benadryl 25 mg Oral Capsule - take 1 capsule by ORAL route every 6 hours As needed; 30 tablet, Pepcid 20 mg Oral Tablet - take 1 tablet by ORAL route every 12 hours for 10 days; 20 tablet, Medrol (Triston) 4 mg Oral Tablets, Dose Pack - take 1 tablet by ORAL route as directed - follow package instructions; 1 packet, Triamcinolone Acetonide 0.5 % Topical Cream - apply 1 application by TOPICAL route 2 times per day As needed; 45 gram, Cipro 250 mg Oral Tablet - take 1 tablet by ORAL route every 12 hours; 14 tablet. and Forms are Medication Reconciliation Form, Thank You Letter, Antibiotic Education, Prescription Opioid Use. Follow up: Jatinder Dallas; When: 2 - 3 days; Reason: Recheck today's complaints, Continuance of care, Re-evaluation by your physician. Problem is new. Symptoms have improved. ame
--- NOTE | 2020-01-11 19:56 | ER ---
Nurse's Notes [facility] Name: Ivet Calderon Age: 69 yrs Sex: Female : 1950 Arrival Date: 01/11/2020 Time: 17:23 Bed 20 Private MD: Jatinder Dallas E Diagnosis: Dermatitis, unspecified;Elevated white blood cell count;Essential (primary) hypertension;Type 2 diabetes mellitus;Urinary tract infection, site not specified Presentation: 01/10 17:30 Chief complaint: Patient states: Red, itchy rash to left lateral side and left upper jl7 thigh x 1 week. Coronavirus screen: Patient denies fever greater than 100.4F, cough, shortness of breath, or difficulty breathing. Proceed with normal triage process. Ebola Screen: No symptoms or risks identified at this time. Initial Sepsis Screen: Does the patient meet any 2 criteria? No. Patient's initial sepsis screen is negative. Does the patient have a suspected source of infection? No. Patient's initial sepsis screen is negative. Risk Assessment: Do you want to hurt yourself or someone else? Patient reports no desire to harm self or others. Onset of symptoms was January 04, 2020. 17:30 Method Of Arrival: Ambulatory [facility] 17:30 Acuity: DORYS 4 jl7 17:59 Acuity: DORYS 3 jl7 Triage Assessment: 17:33 General: Appears in no apparent distress. uncomfortable, Behavior is cooperative, jl7 anxious. Pain: Complains of pain in lewft lateral abdomen Pain currently is 9 out of 10 on a pain scale. Historical: - Allergies: 17:33 No Known Allergies; jl7 - Home Meds: 17:33 aspirin 81 mg Oral chew 1 tab once daily [Active]; Lopressor 50 mg Oral tab 1 tab once jl7 daily [Active]; metformin 500 mg Oral tab 1 tab 2 times per day [Active]; Plavix Oral [Active]; - PMHx: 17:33 Diabetes - NIDDM; Hypertension; jl7 - PSHx: 17:33 Appendectomy; Angioplasty; CABG; jl7 - Immunization history:: Adult Immunizations up to date. - Social history:: Smoking status: Patient denies any tobacco usage or history of. Screenin:55 Abuse screen: Denies threats or abuse. Nutritional screening: No deficits noted. em Tuberculosis screening: No symptoms or risk factors identified. Fall Risk None identified. Assessment: 17:55 General: Appears in no apparent distress. uncomfortable, Behavior is calm, cooperative, em appropriate for age, Denies fever. Pain: Complains of pain in abdomen and buttocks Pain currently is 6 out of 10 on a pain scale. at worst was 10 out of 10 on a pain scale. Pain began 6 days ago. Neuro: Level of Consciousness is awake, alert, obeys commands, Oriented to person, place, time, situation, Appropriate for age. Cardiovascular: Capillary refill < 3 seconds Patient's skin is warm and dry. Respiratory: Airway is patent Respiratory effort is even, unlabored, Respiratory pattern is regular, symmetrical. Derm: Skin is intact, Skin is pink, warm \T\ dry. Rash noted that is itchy, red, on abdomen and buttocks Reports itching, pain that is 6 out of 10 on a pain scale. Musculoskeletal: Capillary refill < 3 seconds, Range of motion: intact in all extremities. Vital Signs: 17:30 BP 157 / 74; Pulse 100; Resp 16 S; Temp 98.6(O); Pulse Ox 97% on R/A; Weight 77.11 kg jl7 (R); Height 5 ft. 1 in. (154.94 cm) (R); Pain 9/10; 20:07 BP 142 / 76; Pulse 98; Resp 18; Temp 98.5; Pulse Ox 100% on R/A; mg2 17:30 Body Mass Index 32.12 (77.11 kg, 154.94 cm) 7 ED Course: 17:23 Patient arrived in ED. ag5 17:23 Jatinder Dallas MD is Private Physician. ag5 17:30 Shankar Forbes MD is Attending Physician. [facility] 17:32 Triage completed. jl7 17:33 Arm band placed on right wrist. 7 17:37 Rashad Navarro, JOSE is Primary Nurse. em 18:04 Initial lab(s) drawn, by me, sent to lab. Inserted saline lock: 20 gauge in right em antecubital area, using aseptic technique. Blood collected. 18:49 Chest Single View XRAY In Process Unspecified. EDMS 19:[address] via stretcher. 2 19:04 CT completed. Patient tolerated procedure well. Patient moved back from CT. 2 19:05 CT Stone Protocol In Process Unspecified. EDMS 19:35 [place] [facility] jmm 19:55 Jatinder Dallas MD is Referral Physician. jmm 20:09 Patient has correct armband on for positive identification. mg2 20:09 No provider procedures requiring assistance completed. Patient did not have IV access mg2 during this emergency room visit. Administered Medications: 18:00 Drug: predniSONE 20 mg Route: PO; em 19:21 Follow up: Response: No adverse reaction mg2 18:04 Drug: NS 0.9% 500 ml Route: IV; Rate: bolus; Site: right antecubital; em 19:22 Follow up: Response: No adverse reaction; IV Status: Completed infusion; IV Intake: mg2 500ml 18:04 Drug: Benadryl 25 mg Route: IVP; Site: right antecubital; em 19:22 Follow up: Response: No adverse reaction mg2 18:06 Drug: SOLU-Medrol 125 mg Route: IVP; Site: right antecubital; em 19:21 Follow up: Response: No adverse reaction; Marked relief of symptoms mg2 18:08 Drug: Pepcid 40 mg Route: IVP; Site: right antecubital; em 19:21 Follow up: Response: No adverse reaction mg2 18:49 Drug: NS 0.9% 500 ml Route: IV; Rate: bolus; Site: right antecubital; em 19:19 Drug: Kenalog Cream (0.5 %) 1 application Route: Topical; Site: affected area; mg2 19:20 Follow up: Response: No adverse reaction mg2 19:19 Drug: Rocephin 1 grams Route: IV; Rate: per protocol; Site: right antecubital; mg2 Intake: 19:22 IV: 500ml; Total: 500ml. mg2 Outcome: 19:55 Discharge ordered by . [facility] 20:08 Discharged to home ambulatory. mg2 20:08 Condition: stable 20:08 Discharge instructions given to patient, Instructed on discharge instructions, follow up and referral plans. medication usage, Demonstrated understanding of instructions, follow-up care, medications, Prescriptions given X 6 20:10 Patient left the ED. mg2 Signatures: Dispatcher [employer] EDMS Shankar Forbes MD MD cha Mickail, Joel, PA PA [facility] Rashad Navarro, RN RN em Clinton Levy RN RN jl7 Marzena Vickers 2 Lyle Hull, RN RN mg2 Rich, Derrick 5
[2020-01-11 20:29] VITALS: BP 142/76; TEMP 98.5; O2SAT 100
== END 2020-01-11 20:10 | disposition home or self-care (01) ==
LOC: ER 17:20
DX: L30.9 Dermatitis, unspecified (principal); N39.0 Urinary tract infection, site not specified; D72.829 Elevated white blood cell count, unspecified; I10 Essential (primary) hypertension; E11.9 Type 2 diabetes mellitus without complications; Z79.01 Long term (current) use of anticoagulants; Z79.82 Long term (current) use of aspirin; Z95.1 Presence of aortocoronary bypass graft
CPT/HCPCS: 96361; 85025; 36415; 81003; 80053; 76377; 74176; 71045; 96375; 96374; 99284; J1200; J0696; J7040 ×2; J2930; J7512

== ENCOUNTER 2020-03-21 07:08 | Day surgery (SDC) | payer OTHER ==
[2020-03-17 13:54] LABS: Protime INR 1.02
--- OUTSIDE RECORDS SUMMARY | 2020-03-21 07:14 | XMS REPORT | Clinical Summary ---
:1950 Author Organization [facility] Address [address] [place] [address] Care Team Providers Name Role Phone Peter Barreto Unavailable Allergies No Known Allergies Medications Medication Sig Dispensed Refills Start Date End Date Status aspirin 81 MG EC Take 81 mg by 0 Active tablet mouth daily. atorvastatin Take 40 mg by 0 Act benedict (LIPITOR) 40 MG mouth daily. tablet losartan (COZAAR) Take 25 mg by 0 Active 25 MG tablet mouth daily. metFORMIN Take 850 mg by 0 Activ e (GLUCOPHAGE) 850 mouth 2 (two) MG tablet times daily with breakfast and dinner. metoprolol Take 1 tablet 60 tablet 11 08/04/2019 08/03/2020 Act benedict (LOPRESSOR) 25 MG (25 mg total) tablet by mouth 2 (two) times daily. lisinopril Take 20 mg by 0 04/06/2019 Acti ve (PRINIVIL,ZESTRIL) mouth daily. 20 MG tablet acetaminophen-code Take 1 tablet 0 Active ine (TYLENOL #3) by mouth every 300-30 mg per 6 (six) hours tablet as needed for Pain. metoprolol Take 50 mg by 0 08/04/2019 Disc ontinued (LOPRESSOR) 25 MG mouth daily. tablet acetaminophen-code Take 1 tablet 20 tablet 0 08/03/20192018 Discontinued ine (TYLENOL #3) by mouth every 300-30 mg per 6 (six) hours tablet as needed for Pain. Max Daily Amount: 4 tablets traMADol (ULTRAM) Take 1 tablet 30 tablet 0 08/04/2019 019 50 mg tablet (50 mg total) by mouth every 6 (six) hours as needed for up to 10 days. Max Daily Amount: 200 mg Active Problems Problem Noted Date S/P CABG x [address] Gallardo on 07/29/2019 07/29/2019 Coronary artery disease 07/28/2019 Acute respiratory insufficiency Acute blood loss anemia Hyperglycemia Encounters Date Type Specialty Care Team Description 10/16/2019 Telephone Cardiology [place], 30-day post dis charge Helena Guzman, RN follow-up albert l 09/23/2019 Telephone Cardiology Helena Fung RN 08/12/2019 Office Visit Cardiology Juan Gallardo Postoperati ve state MD Lia (Primary Dx) 08/03/2019 Travel 08/02/2019 Orders Only General Internal Medicine 07/29/2019 Surgery Juan Gallardo BYPASS,AORT O CORONARY MD Lia SANDRA/SVRuiz 07/29/2019 Anesthesia Event Juan Austin 07/28/2019 - Hospital Encounter Cardiology Varsha Avendano Acute blo od loss 08/04/2019 MD Altagracia anemia after 03/21/2019 Family History Medical History Relation Name Comments Heart disease Brother Diabetes Father Heart disease Father Diabetes Mother Heart disease Mother Relation Name Status Comments Brother Father Mother Social History Tobacco Use Types Packs/Day Years Used Date Never Smoker Smokeless Tobacco: Never Used Alcohol Use Drinks/Week oz/Week Comments No Alcohol Habits Answer Date Recorded How often do you have a drink containing alcohol? Never 07/28/2019 How many drinks containing alcohol do you have on a typical Not asked day when you are drinking? How often do you have six or more drinks on one occasion? No t asked Sex Assigned at Date Recorded Not on file Job Start Date Occupation Industry Not on file Not on file Not on file Travel History Travel Start Travel End No recent travel history available. Last Filed Vital Signs Vital Sign Reading Time Taken Blood Pressure 120/59 08/12/2019 9:59 AM CDT Pulse 60 08/12/2019 9:59 AM CDT Temperature 36.4 C (97.6 F) 08/12/2019 9:59 AM CDT Respiratory Rate 18 08/12/2019 9:59 AM CDT Oxygen Saturation 98% 08/12/2019 9:59 AM CDT Inhaled Oxygen Concentration 21% 08/02/2019 10:25 PM CDT Weight 74.4 kg (164 lb) 08/12/2019 9:59 AM CDT Height 154.9 cm (5' 1") 08/12/2019 9:59 AM CDT Body Mass Index 30.99 08/12/2019 9:59 AM CDT Plan of Treatment Health Maintenance Due Date Last Done Comments BREAST CANCER SCREENING 1950 COLON CANCER SCREENING COLONOSCOPY 1950 PNEUMOCOCCAL 65+ LOW/MEDIUM RISK (1 of 2 - PCV13) 2016 MEDICARE ANNUAL WELLNESS (YEAR 2 or FIRST YEAR if no 10/15/2019 IPPE) INFLUENZA VACCINE (Season Ended) 2020 Procedures Procedure Name Priority Date/Time Associated Comments Diagnosis RHYTHM STRIP - SCAN 08/06/2019 9:50 AM CDT RHYTHM STRIP - SCAN 08/05/2019 10:30 AM CDT VASCULAR DIAGRAM -SCAN 08/05/2019 10:30 AM CDT CBC (HEMOGRAM ONLY) Routine 08/04/2019 5:33 Resu lts for this AM CDT procedure are i n the results section. BASIC METABOLIC PANEL Routine 08/04/2019 5:33 Re sults for this (7) AM CDT procedure are i n the results section. ECHOCARDIOGRAM REPORT - 08/03/2019 9:21 SCAN PM CDT POCT-GLUCOSE METER Routine 08/03/2019 9:12 Resul ts for this PM CDT procedure are i n the results section. POCT-GLUCOSE METER Routine 08/03/2019 5:36 Resul ts for this PM CDT procedure are i n the results section. RHYTHM STRIP - SCAN 08/03/2019 10:23 AM CDT CBC (HEMOGRAM ONLY) Routine 08/03/2019 5:01 Resu lts for this AM CDT procedure are i n the results section. MAGNESIUM Routine 08/03/2019 5:01 Results for this AM CDT procedure are i n the results section. BASIC METABOLIC PANEL Routine 08/03/2019 5:01 Re sults for this (7) AM CDT procedure are i n the results section. POCT-GLUCOSE METER Routine 08/02/2019 10:44 Resul ts for this PM CDT procedure are i n the results section. 2D ECHO W/ DOPPLER Routine 08/02/2019 9:46 Resul ts for this (CW/PW/COLOR) PM CDT procedure are in the results section. POCT-GLUCOSE METER Routine 08/02/2019 12:34 Resul ts for this PM CDT procedure are i n the results section. ECG 12-LEAD Routine 08/02/2019 6:01 AM CDT Procedure Note - Interface, External Ris In - 08/02/2019 9:04 PM CDT Ventricular Rate 66 BPM Atrial Rate 66 BPM P-R Interval 160 ms QRS Duration 80 ms Q-T Interval 420 ms QTC Calculation(Bazett) 440 ms P [place] 36 degrees R [place] 40 degrees T [place] 32 degrees Sinus rhythm with occasional Premature ventricular complexes Otherwise normal ECG When compared with ECG of 05:32, Significant changes have occ urred ECG 12-LEAD Routine 08/02/2019 6:01 AM Results for this CDT procedure are i n the results section. PHOSPHORUS Routine 08/02/2019 4:49 AM Results for this CDT procedure are i n the results section. CBC (HEMOGRAM ONLY) Routine 08/02/2019 4:49 AM R esults for this CDT procedure are i n the results section. MAGNESIUM Routine 08/02/2019 4:49 AM Results for this CDT procedure are i n the results section. BASIC METABOLIC PANEL Routine 08/02/2019 4:49 AM Results for this (7) CDT procedure are i n the results section. POCT-GLUCOSE METER Routine 08/01/2019 8:21 PM Re sults for this CDT procedure are i n the results section. POCT-GLUCOSE METER Routine 08/01/2019 5:36 PM Re sults for this CDT procedure are i n the results section. POCT-GLUCOSE METER Routine 08/01/2019 7:49 AM Re sults for this CDT procedure are i n the results section. HEMOGLOBIN A1C Routine 08/01/2019 5:04 AM Result s for this CDT procedure are i n the results section. CBC (HEMOGRAM ONLY) Routine 08/01/2019 5:04 AM R esults for this CDT procedure are i n the results section. PHOSPHORUS Routine 08/01/2019 5:04 AM Results for this CDT procedure are i n the results section. MAGNESIUM Routine 08/01/2019 5:04 AM Results for this CDT procedure are i n the results section. BASIC METABOLIC PANEL Routine 08/01/2019 5:04 AM Results for this (7) CDT procedure are i n the results section. POCT-GLUCOSE METER Routine 07/31/2019 9:40 PM Re sults for this CDT procedure are i n the results section. POCT-GLUCOSE METER Routine 07/31/2019 6:29 PM Re sults for this CDT procedure are i n the results section. TRANSFUSION SERVICE 07/31/2019 6:00 PM REPORT - SCAN CDT POCT-GLUCOSE METER Routine 07/31/2019 12:12 PM Re sults for this CDT procedure are i n the results section. POCT-GLUCOSE METER Routine 07/31/2019 7:54 AM Re sults for this CDT procedure are i n the results section. XR CHEST 1 VIEW Routine 07/31/2019 7:38 AM Resul ts for this PORTABLE/BEDSIDE CDT procedure a re in the results section. CBC (HEMOGRAM ONLY) Routine 07/31/2019 6:30 AM R esults for this CDT procedure are i n the results section. PHOSPHORUS Routine 07/31/2019 6:30 AM Results for this CDT procedure are i n the results section. MAGNESIUM Routine 07/31/2019 6:30 AM Results for this CDT procedure are i n the results section. BASIC METABOLIC PANEL Routine 07/31/2019 6:30 AM Results for this (7) CDT procedure are i n the results section. PT/APTT Routine 07/31/2019 6:30 AM Results for this CDT procedure are i n the results section. PREPARE PLATELETS STAT 07/30/2019 11:54 PM Res ults for this CDT procedure are i n the results section. POCT-GLUCOSE METER Routine 07/30/2019 9:18 PM Re sults for this CDT procedure are i n the results section. POCT-GLUCOSE METER Routine 07/30/2019 5:48 PM Re sults for this CDT procedure are i n the results section. TRANSFUSION SERVICE 07/30/2019 5:45 PM REPORT - SCAN CDT TRANSFUSION SERVICE 07/30/2019 5:45 PM REPORT - SCAN CDT POCT-GLUCOSE METER Routine 07/30/2019 12:50 PM Re sults for this CDT procedure are i n the results section. POCT-GLUCOSE METER Routine 07/30/2019 9:13 AM Re sults for this CDT procedure are i n the results section. CBC W/PLT COUNT & AUTO Routine 07/30/2019 5:03 AM Results for this DIFFERENTIAL CDT procedure are i n the results section. OXYGEN SATURATION, Routine 07/30/2019 5:03 AM Re sults for this MEASURED CDT procedure are i n the results section. CALCIUM, IONIZED Routine 07/30/2019 5:03 AM Resu lts for this CDT procedure are i n the results section. PHOSPHORUS Routine 07/30/2019 5:03 AM Results for this CDT procedure are i n the results section. CBC W/PLT COUNT & AUTO Routine 07/30/2019 5:03 AM Results for this DIFFERENTIAL CDT procedure are i n the results section. PROTHROMBIN TIME/INR Routine 07/30/2019 5:03 AM Results for this CDT procedure are i n the results section. PT/APTT Routine 07/30/2019 5:03 AM Results for this CDT procedure are i n the results section. MAGNESIUM Routine 07/30/2019 5:03 AM Results for this CDT procedure are i n the results section. BASIC METABOLIC PANEL Routine 07/30/2019 5:03 AM Results for this (7) CDT procedure are i n the results section. XR CHEST 1 VIEW Routine 07/30/2019 3:57 AM Resul ts for this PORTABLE/BEDSIDE CDT procedure a re in the results section. POCT-GLUCOSE METER Routine 07/30/2019 1:43 AM Re sults for this CDT procedure are i n the results section. POCT-GLUCOSE METER Routine 07/29/2019 6:10 PM Re sults for this CDT procedure are i n the results section. POTASSIUM Routine 07/29/2019 6:00 PM Results for this CDT procedure are i n the results section. BLOOD GAS, ARTERIAL Routine 07/29/2019 4:51 PM R esults for this CDT procedure are i n the results section. POCT-GLUCOSE METER Routine 07/29/2019 3:06 PM Re sults for this CDT procedure are i n the results section. POCT-GLUCOSE METER Routine 07/29/2019 2:24 PM Re sults for this CDT procedure are i n the results section. POCT-GLUCOSE METER Routine 07/29/2019 2:10 PM Re sults for this CDT procedure are i n the results section. XR CHEST 1 VIEW Routine 07/29/2019 12:59 PM Resul ts for this PORTABLE/BEDSIDE CDT procedure a re in the results section. POCT-GLUCOSE METER Routine 07/29/2019 12:56 PM Re sults for this CDT procedure are i n the results section. CALCIUM, IONIZED STAT 07/29/2019 11:52 AM Resu lts for this CDT procedure are i n the results section. LACTIC ACID, ARTERIAL STAT 07/29/2019 11:52 AM Results for this CDT procedure are i n the results section. PROTHROMBIN TIME/INR STAT 07/29/2019 11:51 AM Results for this CDT procedure are i n the results section. APTT STAT 07/29/2019 11:51 AM Results for this CDT procedure are i n the results section. PREPARE RBC STAT 07/29/2019 11:43 AM Results for this CDT procedure are i n the results section. OXYGEN SATURATION, STAT 07/29/2019 11:43 AM Re sults for this MEASURED CDT procedure are i n the results section. CBC W/PLT COUNT & AUTO STAT 07/29/2019 11:38 AM Results for this DIFFERENTIAL CDT procedure are i n the results section. PHOSPHORUS STAT 07/29/2019 11:38 AM Results for this CDT procedure are i n the results section. CBC W/PLT COUNT & AUTO STAT 07/29/2019 11:38 AM Results for this DIFFERENTIAL CDT procedure are i n the results section. MAGNESIUM STAT 07/29/2019 11:38 AM Results for this CDT procedure are i n the results section. BLOOD GAS, ARTERIAL STAT 07/29/2019 11:38 AM R esults for this CDT procedure are i n the results section. BASIC METABOLIC PANEL STAT 07/29/2019 11:38 AM Results for this (7) CDT procedure are i n the results section. POCT-ACT Routine 07/29/2019 10:27 AM Results for this CDT procedure are i n the results section. HGB/HCT (H&H) - STAT STAT 07/29/2019 10:25 AM Results for this LAB CDT procedure are i n the results section. GLUCOSE-STAT LAB STAT 07/29/2019 10:25 AM Resu lts for this CDT procedure are i n the results section. POTASSIUM-STAT LAB STAT 07/29/2019 10:25 AM Re sults for this CDT procedure are i n the results section. SODIUM NA-STAT LAB STAT 07/29/2019 10:25 AM Re sults for this CDT procedure are i n the results section. BLOOD GAS, ARTERIAL STAT 07/29/2019 10:25 AM R esults for this CDT procedure are i n the results section. CALCIUM, IONIZED STAT 07/29/2019 10:25 AM Resu lts for this CDT procedure are i n the results section. RRL CRITICAL LABS STAT 07/29/2019 10:25 AM Res ults for this (ABG,NA,K,H&H,GLUCOSE) CDT proce dure are in the results section. TRANSFUSE Routine 07/29/2019 10:14 AM LEUKO-REDUCED CDT PLATELETS TRANSFUSE Routine 07/29/2019 10:02 AM LEUKO-REDUCED CDT PLATELETS POCT-ACT Routine 07/29/2019 9:58 AM Results for this CDT procedure are i n the results section. HGB/HCT (H&H) - STAT STAT 07/29/2019 9:57 AM Results for this LAB CDT procedure are i n the results section. GLUCOSE-STAT LAB STAT 07/29/2019 9:57 AM Resu lts for this CDT procedure are i n the results section. POTASSIUM-STAT LAB STAT 07/29/2019 9:57 AM Re sults for this CDT procedure are i n the results section. SODIUM NA-STAT LAB STAT 07/29/2019 9:57 AM Re sults for this CDT procedure are i n the results section. BLOOD GAS, ARTERIAL STAT 07/29/2019 9:57 AM R esults for this CDT procedure are i n the results section. RRL CRITICAL LABS STAT 07/29/2019 9:57 AM Res ults for this (ABG,NA,K,H&H,GLUCOSE) CDT proce dure are in the results section. HGB/HCT (H&H) - STAT STAT 07/29/2019 9:47 AM Results for this LAB CDT procedure are i n the results section. GLUCOSE-STAT LAB STAT 07/29/2019 9:47 AM Resu lts for this CDT procedure are i n the results section. POTASSIUM-STAT LAB STAT 07/29/2019 9:47 AM Re sults for this CDT procedure are i n the results section. SODIUM NA-STAT LAB STAT 07/29/2019 9:47 AM Re sults for this CDT procedure are i n the results section. BLOOD GAS, ARTERIAL STAT 07/29/2019 9:47 AM R esults for this CDT procedure are i n the results section. RRL CRITICAL LABS STAT 07/29/2019 9:47 AM Res ults for this (ABG,NA,K,H&H,GLUCOSE) CDT proce dure are in the results section. ANESTHESIA LAKSHMI Routine 07/29/2019 9:45 AM Result s for this CDT procedure are i n the results section. POCT-ACT Routine 07/29/2019 9:32 AM Results for this CDT procedure are i n the results section. HGB/HCT (H&H) - STAT STAT 07/29/2019 8:50 AM Results for this LAB CDT procedure are i n the results section. GLUCOSE-STAT LAB STAT 07/29/2019 8:50 AM Resu lts for this CDT procedure are i n the results section. POTASSIUM-STAT LAB STAT 07/29/2019 8:50 AM Re sults for this CDT procedure are i n the results section. SODIUM NA-STAT LAB STAT 07/29/2019 8:50 AM Re sults for this CDT procedure are i n the results section. BLOOD GAS, ARTERIAL STAT 07/29/2019 8:50 AM R esults for this CDT procedure are i n the results section. CALCIUM, IONIZED STAT 07/29/2019 8:50 AM Resu lts for this CDT procedure are i n the results section. RRL CRITICAL LABS STAT 07/29/2019 8:50 AM Res ults for this (ABG,NA,K,H&H,GLUCOSE) CDT proce dure are in the results section. BYPASS,AORTO CORONARY 07/29/2019 8:00 AM Coronary art [place] SANDRA/SVG CDT disease involving [place] coronary artery of [place] heart without angina pectoris Special Needs (POST OP ICU BED) ABORH, MANUAL STAT 07/29/2019 6:44 AM CDT Res ults for this procedure are i n the results section . PLATELET AGGREGATION: AP Routine 07/29/2019 6:44 AM CDT Results for this FUNCTION SCREEN procedure ar e in the results section . APTT Routine 07/29/2019 6:44 AM CDT Resu lts for this procedure are i n the results section . HEMOGLOBIN A1C Routine 07/29/2019 6:44 AM CDT Re sults for this procedure are i n the results section . XR CHEST 1 VIEW STAT 07/29/2019 6:15 AM CDT R esults for this PORTABLE/BEDSIDE procedure a re in the results section . ECG 12-LEAD Routine 07/29/2019 5:32 AM CDT Resu lts for this procedure are i n the results section . CBC W/PLT COUNT & AUTO Routine 07/29/2019 5:09 AM CDT Results for this DIFFERENTIAL procedure are i n the results section . CBC W/PLT COUNT & AUTO Routine 07/29/2019 5:09 AM CDT Results for this DIFFERENTIAL procedure are i n the results section . TYPE AND SCREEN, AUTOMATED Routine 07/29/2019 5:08 AM CDT Results for this procedure are i n the results section . PHOSPHORUS STAT Add-on 07/29/2019 5:08 AM CDT Resu lts for this procedure are i n the results section . PROTHROMBIN TIME/INR Routine 07/29/2019 5:08 AM CDT Results for this procedure are i n the results section . PT/APTT Routine 07/29/2019 5:08 AM CDT Resu lts for this procedure are i n the results section . MAGNESIUM Routine 07/29/2019 5:08 AM CDT Resu lts for this procedure are i n the results section . BASIC METABOLIC PANEL (7) Routine 07/29/2019 5:08 AM CDT Results for this procedure are i n the results section . after 03/21/2019 Results RHYTHM STRIP - SCAN (08/06/2019 9:50 AM CDT)Only the most recent of3 results within the time period is included. Narrative Performed At This result has an attachment that is no t available. VASCULAR DIAGRAM -SCAN (08/05/2019 10:30 AM CDT) Narrative Performed At This result has an attachment that is no t available. CBC (Hemogram only) (08/04/2019 5:33 AM CDT)Only the most recent of5 results within the time period is included. WBC 10.3 3.5 - 10.5 K/L [facility] RBC 2.72 (L) 3.93 - 5.22 M/L [facility] Hemoglobin 9.0 (L) 11.2 - 15.7 GM/DL [facility] Hematocrit 29.0 (L) 34.1 - 44.9 % [facility] MCV 106.6 (H) 79.4 - 94.8 fL [facility] MCH 33.1 (H) 25.6 - 32.2 pg [facility] MCHC 31.0 (L) 32.2 - 35.5 GM/DL [facility] RDW 19.7 (H) 11.7 - 14.4 % [facility] Platelets 343 150 - 450 K/CU MM [facility] MPV 9.9 9.4 - 12.3 fL [facility] nRBC 0 0 - 0 /100 WBC [facility] Specimen Blood Performing Organization Address City/State/Zipcode Phone Number [facility] [address] [place] [phone] [place] Basic Metabolic Panel (08/04/2019 5:33 AM CDT)Only the most recent of8 results within the time period is included. Sodium 139 136 - 145 meq/L [facility] Potassium 4.0 3.5 - 5.1 meq/L [facility] Chloride 105 98 - 107 meq/L [facility] CO2 30 (H) 22 - 29 meq/L [facility] BUN 8 7 - 21 mg/dL [facility] Creatinine 0.64 0.57 - 1.25 mg/dL [facility] Glucose 116 (H) 70 - 105 mg/dL [facility] Calcium 8.7 8.4 - 10.2 mg/dL [facility] EGFR Comment: INSUFFICIENT CLINICAL C [facility] DATA TO CALCULATE ESTIMATED [facility] GFR. Specimen Blood Performing Organization Address City/State/Zipcode Phone Number [facility] [address] [place] [address] [place] ECHOCARDIOGRAM REPORT - SCAN (08/03/2019 9:21 PM CDT) Narrative Performed At This result has an attachment that is no t available. POC-Glucose meter (08/03/2019 9:12 PM CDT)Only the most recent of21 results within the time period is included. POC-Glucose Meter 138 (H)Comment: TESTED AT 70 - 110 mg/dL [facility] [address] [place] [id number] Specimen Blood Performing Organization Address City/[facility] Phone Number [address] [address] [place] Magnesium (08/03/2019 5:01 AM CDT)Only the most recent of7 resultswithin the time period is included. Magnesium 1.8 1.6 - 2.6 mg/dL [facility] Specimen Blood Performing Organization Address [facility] Phone Number [address] [address] [place] 2D Echo W/Doppler(CW/PW/Color) (08/02/2019 9:46 PM CDT) Ejection Fraction [facility] ECHO [facility] Specimen Narrative Performed At Transthoracic Echocardiography Report (T TE) [facility] ECHO HEARTLAB [facility] Demographics Patient Name LEONARD, CONSUELODate of Study 08/02/2019 [id number] GenderFem karoline Visit Number [id number] RaceUnkn own [id number] m Number [id number] Number Date of Birth1950 Referring Physician Gurwinder Edouard Age69 year(s) Communications Lead [place] alexandra RDCS, RVT Cyndi Arias,Letty Beal MD RDCS Physician Procedure Type of Study TTE procedure:2DECHO W DOPPLER(CW/PW/COLOR) (Routine) Indications:Evaluation of LV Function Po st AMI. Clinical History CAD, DM, CABGX1, HTN HGB 8.5 HCT 27.1 % Contrast Medium: Definity. Amount - 2 ml Height: 61 inches Weight: 75.75 kg (167 lbs) BSA: 1.75 m^2 BMI: 31.55 kg/m^2 HR: 80 bpm BP: 137/63 mmHg Summary The left ventricle is chamber size (by vol index) is normal (female - LVED vol - 29-61ml/m2). Septal motion is abnormal, likely related to prior cardiac surgery . The other segments contract normally. LVEF by Paez's method of disk assessment is normal (>60%) . Grade 2 diastolic dysfunction (moderately increased LA pressure). Estimated peak systolic PA pressure is 35-40 mmHg . Previous Study No prior studies available for comparis on. Signature Findings Technical Quality: Technically adequate exam. Left Ventricle LV endocardium is adequately visualized with IV ul trasound enhancing agent. The left ventr icle is ch zenon size (by vol index) is normal (fem karoline - LV ED vol - 29-61ml/m2). No evidence of LV hy pertrophy. Septal motion is abnormal, donavan archibald re lated to prior cardiac surgery . The oth er se gments contract normally. Global LV syst olic fu nction normal . LVEF by Paez's method of disk as sessment is normal (>60%) . Grade 2 jones tolic dy sfunction (moderately increased LA press ure). Left AtriumLA size is normal (16-34 ml/m2) . Right VentricleRV chamber size appears normal by limited views . Gl obal RV systolic function is normal . Right Atrium RA size is normal. Aortic Valve Mild AoV cusp thickening. No evidence of aortic regurgitation. Mitral Valve Mild MV leaflet thickening. No evidence of mitral regurgitation. Tricuspid ValveMild tricuspid regurgitation. Es timated peak systolic PA pressure is 35- 40 mmHg . Pulmonic Valve PV is not well visualized; function appears normal by Doppler visualized. AortaAortic root size (SInus of Valsalva diameter) i s no rmal . PericardiumNo pericardial effusion is visualized. IVC/SVC/PA/PV/PleuralThe estimated RA pressure by IVC dynamics 5-10mmHg . Chambers/Structures Left Atrium LA Volume: 42.79 ml LA Area: 16.23 cm^2 LA Vol. Index: 24 ml/m^2 Left Ventricle LVIDd: 4.06 cm LV Septum Diastolic: 1.12 cm LV PW Diastolic: 1.01 cm LVEDV Paez's:70.48 ml LVESV Paez's:21.99 ml LVEF Paez's: 68.8 %LVEDV I: 40 ml/m^2 LVESVI: 13 ml/m^2 LVOT Diameter: 2.07 cm Aorta Ao Root S of Marjan.: 3.02 cm Doppler/Quantitative Measurements Mitral Valve MV Peak E-Wave: 1.24 m/sMV Peak A-Wave: 0.9 m/s E/A Ratio: 1. 38 Peak Gradient: 6.18 mmHg Deceleration Time: 190.7 msec MV Andrzej. Peak: Tissue Doppler E' Lateral Velocity: 0.06 m/s E/E': 20.6 Aortic Valve Peak Velocity: 1.15 m/sMean Velocity: 0.73 m/s Peak Gradient: 5.25 mmHg Mean Gradient: 2.53 mmHg AV Area (continuity): 2.63 cm^2 AV VTI: 23.22 cm AV DVI: 0.78 LVOT Peak Velocity: 0.74 m/s Peak Gradient: 2.17 mmHg Mean Velocity: 0.56 m/s Mean Gradient: 1.39 mmHg LVOT Diameter: 2.07 cmLVOT VTI: 18.18 cm LVOT Area: 3.37 cm^2LVOT SV:61.15 ml LVOT CO: 4.89 l/min LVOT CI: 2.79 l/min/m^2 Tricuspid Valve TR Velocity: 2.61 m/s TR Gradient: 27.18 mmHg Procedure Note Interface, External Ris In - 08/03/2019 10:31 AM CDT Transthoracic Echocardiography Report (TTE) Demographics Patient Name IVET CALDERON Date of Study 08/02/2019 Gender Female Visit Number [id number] Race Unknown Room [place] [id number] Number Date of 1950 Referri Physician Gurwinder Peggy Javan Age 69 year(s) Sonogra horace Mina [facility], RVT Outer Diameter Grinder Yahaira Arias, Interpr eting Jann Beal MD RD Physici an Procedure Type of Study TTE procedure:2DECHO W DOPPLE R(CW/PW/COLOR) (Routine) Indications:Evaluation of LV Function Po st AMI. Clinical History CAD, DM, CABGX1, HTN HGB 8.5 HCT 27.1 % Contrast Medium: Definity. Amount - 2 ml Height: 61 inches Weight: 75.75 kg (167 lbs) BSA: 1.75 m^2 BMI: 31.55 kg/m^2 HR: 80 bpm BP: 137/63 mmHg Summary The left ventricle is chamber size (by vol index) is normal (female - LVED vol - 29-61ml/m2). Septal motion is abn ormal, likely related to prior cardiac surgery . The other segments co ntract normally. LVEF by Paez's method of disk assessment is normal (>6 0%) . Grade 2 diastolic dysfunction (moderately increased LA pressure). Estimated peak systolic PA pressure is 35-40 mmHg . Previous Study No prior studies available for comparis on. Signature Findings Technical Quality: Technically adequate exam. Left Ventricle LV endocardium i s adequately visualized with IV ultrasound enhan cing agent. The left ventricle is chamber size (by vol index) is normal (female - LVED vol - 29-61 ml/m2). No evidence of LV hypertrophy. Sep kyler motion is abnormal, likely related to prior cardiac surgery . The other segments contrac t normally. Global LV systolic function normal . LVEF by Paez's method of disk assessment is no rmal (>60%) . Grade 2 diastolic dysfunction (mod erately increased LA pressure). Left Atrium LA size is marina l (16-34 ml/m2) . Right Ventricle RV chamber size appears normal by limited views . Global RV systol ic function is normal . Right Atrium RA size is marina l. Aortic Valve Mild AoV cusp th ickening. No evidence of a ortic regurgitation. Mitral Valve Mild MV leaflet thickening. No evidence of m itral regurgitation. Tricuspid Valve Mild tricuspid r egurgitation. Estimated peak s ystolic PA pressure is 35-40 mmHg . Pulmonic Valve PV is not well v isualized; function appears normal by Doppler visua lized. Aorta Aortic root size (SInus of Valsalva diameter) is normal . Pericardium No pericardial e ffusion is visualized. IVC/SVC/PA/PV/Pleural The estimated RA pressure by IVC dynamics 5-10mmHg . Chambers/Structures Left Atrium LA Volume: 42.79 ml LA Area: 16.23 cm^2 LA Vol. Index: 24 ml/m^2 Left Ventricle LVIDd: 4.06 cm LV Septum Diastolic: 1.12 cm LV PW Diastolic: 1.01 cm LVEDV Paez's:70.48 ml LVESV Paez's:21.99 ml LVEF Paez's: 68.8 % LVEDVI: 40 ml/m^2 LVESVI: 13 ml/m^2 LVOT Diameter: 2.07 cm Aorta Ao Root S of Marjan.: 3.02 cm Doppler/Quantitative Measurements Mitral Valve MV Peak E-Wave: 1.24 m/s M V Peak A-Wave: 0.9 m/s E /A Ratio: 1.38 P eak Gradient: 6.18 mmHg D eceleration Time: 190.7 msec MV Andrzej. Peak: Tissue Doppler E' Lateral Velocity: 0.06 m/s E /E': 20.6 Aortic Valve Peak Velocity: 1.15 m/s Mean Velocity: 0.73 m/s Peak Gradient: 5.25 mmHg Mean Gradient: 2.53 mmHg AV Area (continuity): 2.63 cm^2 AV VTI: 23.22 cm AV DVI: 0.78 LVOT Peak Velocity: 0.74 m/s Pea k Gradient: 2.17 mmHg Mean Velocity: 0.56 m/s Alysia n Gradient: 1.39 mmHg LVOT Diameter: 2.07 cm LVO T VTI: 18.18 cm LVOT Area: 3.37 cm^2 LVO T SV:61.15 ml LVOT CO: 4.89 l/min LVO T CI: 2.79 l/min/m^2 Tricuspid Valve TR Velocity: 2.61 m/s TR Gradient: 27.18 mmHg Performing Organization Address City/[facility] Phone Number [facility] MKCKESSON CPACS ECG 12 lead (08/02/2019 6:01 AM CDT)Only the most recent of2 resultswithin the time period is included. Specimen Narrative Performed At Ventricular Rate 66 BPM GE MUSE Atrial Rate 66 BPM P-R Interval 160 ms QRS Duration 80 ms Q-T Interval 420 ms QTC Calculation(Bazett) 440 ms P [place] 36 degrees R [place] 40 degrees T [place] 32 degrees Sinus rhythm with occasional Premature v entricular complexes Otherwise normal ECG When compared with ECG of 29-JUL-2019 05 :32, ST-T changes are no longer present. Confirmed by Daksha OLVERA MICHAEL ([id number]) on 08/03/20 19 8:08:11 AM Procedure Note Interface, External Ris In - 08/03/2019 8:08 AM CDT Ventricular Rate 66 BPM Atrial Rate 66 BPM P-R Interval 160 ms QRS Duration 80 ms Q-T Interval 420 ms QTC Calculation(Bazett) 440 ms P [place] 36 degrees R [place] 40 degrees T [place] 32 degrees Sinus rhythm with occasional Premature v entricular complexes Otherwise normal ECG When compared with ECG of 29-JUL-2019 05 :32, ST-T changes are no longer present. Confirmed by Daksha OLVERA MICHAEL ([id number]) on 08/03/2019 8:08:11 AM Performing Organization Address City/[facility] Phone Number [email or web address] Phosphorus (08/02/2019 4:49 AM CDT)Only the most recent of6 resultswithin the time period is included. Phosphorus 2.5 2.3 - 4.7 mg/dL [facility] Specimen Blood Performing Organization Address City/State/Zipcode Phone Number [facility] [address] [place] [address] CENTER Hemoglobin A1c (08/01/2019 5:04 AM CDT)Only the most recent of2 resultswithin the time period is included. Hemoglobin A1C 8.6 (H) 4.3 - 6.1 % [facility] Specimen Blood Performing Organization Address City/State/Zipcode Phone Number [facility] [address] [place] [address] CENTER TRANSFUSION SERVICE REPORT - SCAN (07/31/2019 6:00 PM CDT)Only the most recent of3 resultswithin the time period is included. Narrative Performed At This result has an attachment that is no t available. XR chest 1 view portable / bedside (07/31/2019 7:38 AM CDT)Only the most recent of4 resultswithin the time period is included. Specimen Narrative Performed At FINAL REPORT GE RIS RAD, CHEST, 1 VIEW, NON DEPT INDICATION: post-op cardiac surgery COMPARISON: Prior day's exam FINDINGS: Portable frontal view of the c hest. IMPRESSION: Support Lines: Right IJ central venous c atheter has been removed. Lungs and pleura: Lungs are underinflate d but clear. No pneumothorax. Heart and mediastinum: Stable contours. Stable surgical changes. Additional findings: None. Signed: JR Wilkerson Robert MD Report Verified Date/Time:07/31/2019 07:56:15 Reading Location: [facility], [place], operated by [facility] Reading Room Procedure Note Interface, External Ris In - 07/31/2019 7:58 AM CDT FINAL REPORT RAD, CHEST, 1 VIEW, NON DEPT INDICATION: post-op cardiac surgery COMPARISON: Prior day's exam FINDINGS: Portable frontal view of the c hest. IMPRESSION: Support Lines: Right IJ central venous c atheter has been removed. Lungs and pleura: Lungs are underinflate d but clear. No pneumothorax. Heart and mediastinum: Stable contours. Stable surgical changes. Additional findings: None. Signed: JR Wilkerson Robert MD Report Verified Date/Time: 07/31/2019 0 7:56:15 Reading Location: [facility], [place], operated by [facility] Reading Room Performing Organization Address City/State/Zipcode Phone Number GE RIS PT/aPTT (07/31/2019 6:30 AM CDT)Only the most recent of3 resultswithin the time period is included. Protime 14.5 (H) 11.9 - 14.2 seconds [facility] INR 1.2 <=5.9 [facility] PTT 33.1 22.5 - 36.0 seconds [facility] Specimen Blood Narrative Performed At Effective 03/11/2019: PT Reference Range [facility] Change New: 11.9-14.2Previous: 11.7-14.7 RECOMMENDED COUMADIN/WARFARIN INR THERAPY RANGES STANDARD DOSE: 2.0-3.0Includes: PROPHYLAXIS for venous thrombosis, systemic embolization; TREATMENT for venous thrombosis and/or pulmonary embolus. HIGH RISK: Target INR is 2.5-3.5 for patients wiht mechanical heart valves. Performing Organization Address City/[facility] Phone Number [address] [address] CENTER Prepare PLT (07/30/2019 11:54 PM CDT) Unit ABO O Pos SAFETRACE TX UNIT NUMBER [id number] SAFETRACE TX Status TX_TIMEINCHART SAFETRACE TX Blood Bank Product PLATELETS SAFETRACE TX PRODUCT CODE [id number] SAFETRACE TX Unit ABO B Pos SAFETRACE TX UNIT NUMBER [id number] SAFETRACE TX Status TX_TIMEINCHART SAFETRACE TX Blood Bank Product PLATELETS SAFETRACE TX PRODUCT CODE [id number] SAFETRACE TX Performing Organization Address City/[facility] Phone Number SAFETRACE [place] Oxygen saturation, measured (07/30/2019 5:03 AM CDT)Only the most recent of2 resultswithin the time period is included. O2 Saturation (Measured) 77.2 % [facility] Specimen Blood Performing Organization Address City/State/Zipcode Phone Number [facility] [address] [place] [address] CENTER Calcium, Ionized (07/30/2019 5:03 AM CDT)Only the most recent of4 resultswithin the time period is included. Calcium, Ion 1.17 1.12 - 1.27 mmol/L [facility] pH, Blood 7.38 [facility] Specimen Blood Performing Organization Address City/State/Zipcode Phone Number [facility] [address] [place] [address] CENTER CBC with platelet count + automated diff (07/30/2019 5:03 AM CDT)Only the most recent of3 resultswithin the time period is included. WBC 11.2 (H) 3.5 - 10.5 K/L [facility] RBC 2.63 (L) 3.93 - 5.22 M/L [facility] Hemoglobin 8.5 (L) 11.2 - 15.7 GM/DL [facility] Hematocrit 26.7 (L) 34.1 - 44.9 % [facility] MCV 101.5 (H) 79.4 - 94.8 fL [facility] MCH 32.3 (H) 25.6 - 32.2 pg [facility] MCHC 31.8 (L) 32.2 - 35.5 GM/DL [facility] RDW 18.9 (H) 11.7 - 14.4 % [facility] Platelets 215 150 - 450 K/CU MM [facility] MPV 10.8 9.4 - 12.3 fL [facility] nRBC 0 0 - 0 /100 WBC [facility] % Neutros 76 % [facility] % Lymphs 14 % [facility] % Monos 6 % [facility] % Eos 3 % [facility] % Baso 0 % [facility] # Neutros 8.53 (H) 1.56 - 6.13 K/L [facility] # Lymphs 1.55 1.18 - 3.74 K/L [facility] # Monos 0.72 (H) 0.24 - 0.36 K/L [facility] # Eos 0.30 0.04 - 0.36 K/L [facility] # Baso 0.05 0.01 - 0.08 K/L [facility] Immature 0 0 - 1 % [facility] Granulocytes-Relative [facility] Specimen Blood Performing Organization Address City/State/Zipcode Phone Number [facility] [address] [place] [address] CENTER Prothrombin time/INR (07/30/2019 5:03 AM CDT)Only the most recent of3 results within the time period is included. Protime 15.4 (H) 11.9 - 14.2 seconds [facility] INR 1.3 <=5.9 [facility] Specimen Blood Narrative Performed At Effective 03/11/2019: PT Reference Range [facility] Change New: 11.9-14.2Previous: 11.7-14.7 RECOMMENDED COUMADIN/WARFARIN INR THERAPY RANGES STANDARD DOSE: 2.0-3.0Includes: PROPHYLAXIS for venous thrombosis, systemic embolization; TREATMENT for venous thrombosis and/or pulmonary embolus. HIGH RISK: Target INR is 2.5-3.5 for patients wiht mechanical heart valves. Performing Organization Address City/[facility] Phone Number [address] [address] [place] Potassium (07/29/2019 6:00 PM CDT) Potassium 4.2 3.5 - 5.1 meq/L [facility] Specimen Blood Narrative Performed At PRN - repeat potassium levels every 1 hour [facility] until glucose level is less than 450 mg/dL Performing Organization Address [facility] Phone Number [address] [address] [place] Blood gas, arterial (07/29/2019 4:51 PM CDT)Only the most recent of6 results within the time period is included. pH, Arterial 7.41 7.35 - 7.45 [facility] pCO2, Arterial 36 35 - 45 mmHg [facility] pO2, Arterial 149 (H) 80 - 90 mmHg [facility] O2 Sat, Arterial 98.9 (H) 96.0 - 97.0 % [facility] HCO3, Arterial 23 21 - 29 mmol/L [facility] Base Excess, Arterial -1.8 -2.0 - 3.0 mmol/L [facility] Patient Temperature 37.2 C [facility] FIO2 40.0 % [facility] Specimen Blood, Arterial Performing Organization Address City/[facility] Phone Number [address] [address] [place] Lactic acid, arterial, whole blood (07/29/2019 11:52 AM CDT) Lactate, Art 1.2 0.5 - 2.2 mmol/L [facility] Specimen Blood, Arterial Performing Organization Address City/[facility]/Zipcode Phone Number [address] [phone] CENTER aPTT (07/29/2019 11:51 AM CDT)Only the most recent of2 resultswithin the time period is included. PTT 27.4 22.5 - 36.0 seconds [facility] Specimen Blood Performing Organization Address [facility] Phone Number [address] [address] CENTER Prepare RBC (07/29/2019 11:43 AM CDT) CROSSMATCH COMPATIBLE SAFETRACE TX Unit ABO A Pos SAFETRACE TX UNIT NUMBER [id number] SAFETRACE TX Status RETURNED FROM ISSUE SAFETRACE TX Blood Bank Product RED BLOOD CELLS SAFETRACE TX PRODUCT CODE [id number] SAFETRACE TX CROSSMATCH COMPATIBLE SAFETRACE TX Unit ABO A Pos SAFETRACE TX UNIT NUMBER [id number] SAFETRACE TX Status RETURNED FROM ISSUE SAFETRACE TX Blood Bank Product RED BLOOD CELLS SAFETRACE TX PRODUCT CODE [id number] SAFETRACE TX Performing Organization Address [facility] Phone Number SAFETRACE TX POC ACTIVATED CLOTTING TIME (07/29/2019 10:27 AM CDT)Only the most recent of3 resultswithin the time period is included. Activated Clotting Time 109Comment: Reference sec CH I [facility] Range: 74-137 seconds, MEDICAL CENTER Baseline/TESTED AT [address] [address] Specimen Blood Performing Organization Address [facility] Phone Number [address] [address] CENTER Potassium-Stat Lab (07/29/2019 10:25 AM CDT)Only the most recent of4 results within the time period is included. Potassium 4.2 3.6 - 5.5 meq/L [facility] Specimen Blood, Arterial Performing Organization Address [facility] Phone Number [address] [phone] [place] Sodium Na-Stat Lab (07/29/2019 10:25 AM CDT)Only the most recent of4 results within the time period is included. Sodium 133 (L) 135 - 148 meq/L [facility] Specimen Blood, Arterial Performing Organization Address [facility] Phone Number [address] [address] [place] Glucose-Stat Lab (07/29/2019 10:25 AM CDT)Only the most recent of4 resultswithin the time period is included. Glucose 226 (H) 70 - 110 mg/dL [facility] Specimen Blood, Arterial Performing Organization Address [facility] Phone Number [address] [address] [place] HGB/HCT (H&H)-Stat Lab (07/29/2019 10:25 AM CDT)Only the most recent of4 resultswithin the time period is included. Hemoglobin 8.0 (L) 12.0 - 15.0 g/dL [facility] Hematocrit 24.0 (L) 36.0 - 45.0 % [facility] Specimen Blood, Arterial Performing Organization Address [facility] Phone Number [address] [address] [place] Transfuse Leuko-Red PLT (07/29/2019 10:14 AM CDT)LAKSHMI (07/29/2019 9:45 AM CDT) Narrative Performed At Cristobal Hutton MD 07/29/2019 10:24 AM [place] Date: 07/29/2019 9:46 AM Sex: Male Locat ion: OR Requesting Physician: Juan Gallardo MD Examiner: Cristobal Hutton MD IntubatedSedated Patient screened for esoph disease: Yes Insertion: easy Probe Type: multiplane Modalities: 2D, CFM, CWD and PWD Pre Intervention Summary: Aorta: No aneu rysm, no dissection, no mobile plaques AV: trileaflet morphology, no aortic stenosis, trace a ortic regurgitation LV: normal chamber size , no LVH, normal systolic function (EF 64.4% by global longitudinal strain), no diastoli c dysfunction, no RWMA, no thrombus MV: normal morphology, trace mitral regu rgitation, no mitral stenosis LA: no LORENZO thrombus, normal size and fun ction PV: limited visualization RV: normal sized chamber, normal functio n, no thrombus TV: normal morphology, trace tricuspid r egurgitation RA: no thrombus No PFO by color dopper flow All findings communicated to surgical te am. Post Intervention Summary:S/p ACB x1 Good biventricular function No valvular changes No aortic dissection No pericardial effusion Procedure Note Cristobal Hutton MD - 07/29/2019 9:45 AM CDT [place]SH[place] Date: 07/29/2019 9:46 AM Sex: Male Locat ion: OR Requesting Physician: Juan Gallardo MD Examiner: Cristobal Hutton MD Intubated Sedated Patient screened for esoph disease: Yes Insertion: easy Probe Type: multiplane Modalities: 2D, CFM, CWD and PWD Pre Intervention Summary: Aorta: No aneu rysm, no dissection, no mobile plaques AV: trileaflet morphology, no aortic rudy nosis, trace aortic regurgitation LV: normal chamber size , no LVH, normal systolic function (EF 64.4% by global longitudinal strain), no diastolic dysfunction, no RWMA, no thrombus MV: normal morphology, trace mitral regu rgitation, no mitral stenosis LA: no LORENZO thrombus, normal size and fun ction PV: limited visualization RV: normal sized chamber, normal functio n, no thrombus TV: normal morphology, trace tricuspid r egurgitation RA: no thrombus No PFO by color dopper flow All findings communicated to surgical te am. Post Intervention Summary: S/p ACB x1 Good biventricular function No valvular changes No aortic dissection No pericardial effusion Platelet Aggregation: Function Screen (07/29/2019 6:44 AM CDT) Pathologist: Giovanni Tee M.D. [facility] ([facility] [place]) [facility] Platelets 273 150 - 450 K/CU [facility] ADP 12 (L) 62 - 100 % [facility] Platelet Rich Plasma 258 200 - 300 k/cu [facility] Plt. Function Screen Pattern of disaggregation C [facility] ZAIDA Interpretation present with ADP which [facility] may be characteristic of CENTER P2Y12 inhibitor effect. Correlation with medication history is required. Specimen Blood Narrative Performed At Platelet Function Screen results may be [facility] falsely low with platelet counts <75,000/cu mm. Performing Organization Address City/State/Zipcode Phone Number [facility] [address] [place] [address] CENTER ABORH, manual (07/29/2019 6:44 AM CDT) ABO Grouping A [facility] Rh Factor POS [facility] Specimen Blood Performing Organization Address City/[facility] Phone Number [facility] [address] [place] [phone] Type and screen, automated (07/29/2019 5:08 AM CDT) ABO/RH AUTOMATED (BEAKER) A POSITIVE [facility] Ab Scrn NEGATIVE [facility] Specimen Blood Performing Organization Address [facility] Cent[facility]ode Phone Number [address] [address] after 03/21/2019 Insurance Payer Benefit Plan / Group Subscriber ID Type Phone A ddress [employer] ALL xxxxxxxxx Maps Contracted [id number] Advance Directives For more information, please contact:[address] [phone] Code Status Date Activated Date Inactivated Comments Full Code 07/28/2019 8:31 PM 08/04/2019 5:22 PM This code status was determined by: Patient
--- OUTSIDE RECORDS SUMMARY | 2020-03-21 07:23 | XMS REPORT | Continuity of Care Document ---
:1950 Author Organization [facility] t Address [address] [place] [address] Care Team Providers Name Role Phone Kenton GARCIA, Helena Guzman Attending Clinician Unavailable Paulina KENNY, Lia Attending Clinician Altagracia Avendano MD Attending Clinician Duane Austin Attending Clinician Unavailable ALTAGRACIA AVENDANO Attending Clinician Unavailable ALTAGRACIA AVENDANO Admitting Clinician Unavailable Payers Payer Name Policy Type Policy Number Effective Expiration Source Date Date [facility] Condition Condition Condition Status Onset Resolution Last Treating Co mments Source Name Details Category Date Date Treatment Clinician Date S/P CABG x S/P CABG x Disease Active 2018-[address] 1 by 1 by 016 Reji Gallardo on [facility] on 00:00: Me dical 07/29/2019 07/29/2019 00 Ce ntgwendolyn Coronary Coronary Disease Active [facility] artery 0[facility]15 [facility] - disease disease 00:00: Medical Center Acute Acute Disease Active [facility] respirator respirator kes - y y Medical insufficie insufficie Ce nter ncy ncy Acute Acute Disease Active [facility] blood loss blood loss [facility] anemia anemia [facility] Hyperglyce Hyperglyce Disease Active [facility] Allergies, Adverse Reactions, Alerts This patient has no known allergies or adverse reactions. Family History Family Member Diagnosis Comments Start Date Stop Date Source Natural brother Heart disease [facility] Natural father Diabetes [facility] Natural father Heart disease [facility] Natural mother Diabetes [facility] Natural mother Heart disease [facility] Social History Social Habit Start Date Stop Date Quantity Comments Source History SDOH [facility] Std Drinks [facility] History SDOH Alcohol [facility] Binge [facility] Sex Assigned At [facility] History SDOH Alcohol 2019-07-28 2019-07-28 1 [facility] - Frequency 00:00:00 00:00:00 [facility] Center Smoking Status Start Date Stop Date Source Never smoker [facility] Ordered Filled Start Stop Current Ordering Indication Dosage Frequency Signature Comments Components Source Medication Medication Date Date Medication? Clinician (SIG) Name Name acetaminoph 2018-10 Yes 1{tbl} Take [address] en-codeine 0-30 tablet by Luke s - (TYLENOL 10:08: mouth Medical #3) 300-30 08 every 6 Center mg per (six) tablet hours as needed for Pain. metoprolol 2018-10- No 50mg QD Take [address] (LOPRESSOR) 0-22 10-22 by mouth Dhruv es - 25 MG 11:58: 00:00 daily. Medical tablet 26 :00 Center metoprolol 2018-10 2020- No 25mg Q.5D Take [address] (LOPRESSOR) 0-22 10-21 tablet (25 L ukes - 25 MG 00:00: 23:59 mg total) Medica l tablet 00 :00 by mouth 2 Center (two) times daily. traMADol 2018-10- No 50mg Take [address] (ULTRAM) 50 0-22 11-01 tablet (50 L ukes - mg tablet 00:00: 23:59 mg total) Me dical 00 :00 by mouth Center every 6 (six) hours as needed for up to 10 days. Max Daily Amount: 200 mg acetaminoph 2018-10 2019- No 1{tbl} Take [address] en-codeine 0-21 10-22 tablet by Dhruv es - (TYLENOL 00:00: 00:00 mouth Medical #3) 300-30 00 :00 every 6 Center mg per (six) tablet hours as needed for Pain. Max Daily Amount: 4 tablets metFORMIN 2019-1 Yes 850mg Take [address] (GLUCOPHAGE 0-15 mg by [facility] - ) 850 MG 20:04: mouth 2 Medica l tablet 51 (two) Center times daily with breakfast and dinner. aspirin 81 2018-10 Yes 81mg QD Take [address] MG EC 0-15 by mouth [facility] - tablet 20:04: daily. Medical [address] [place] [address] atorvastati 2018-10 Yes 40mg QD Take [address] n (LIPITOR) 0-15 by mouth Luke s - 40 MG 20:04: daily. Medical tablet [address] [place] [address] losartan 2018-10 Yes 25mg QD Take [address] (COZAAR) 25 0-15 by mouth Luke s - MG tablet 20:04: daily. Medica l [address] [place] [address] lisinopril Yes 20mg QD Take [address] (PRINIVIL,Z 6-24 by mouth Luke s - ESTRIL) 20 00:00: daily. Medic al MG tablet 00 Center Vital Signs Vital Name Observation Time Observation Value Comments Source Systolic blood 2019-08-12 09:59:00 120 mm[Hg] [facility] Diastolic blood 2019-08-12 09:59:00 59 mm[Hg] [facility] S t [facility] Heart rate 2019-08-12 09:59:00 60 /min [facility] Body temperature 2019-08-12 09:59:00 36.44 [place] [facility] Respiratory rate 2019-08-12 09:59:00 18 /min [facility] Body height 2019-08-12 09:59:00 154.9 cm [facility] Body weight Measured 2019-08-12 09:59:00 74.39 kg [facility] BMI 2019-08-12 09:59:00 30.99 kg/m2 [facility] Oxygen saturation in 2019-08-12 09:59:00 98 /min [facility] Arterial blood by Medical Ce nter Pulse oximetry Procedures Procedure Date / Time Performing Clinician Source Performed RHYTHM STRIP - SCAN 2019-08-06 09:50:35 Provider, Default [facility] RHYTHM STRIP - SCAN 2019-08-05 10:30:18 Provider, Default [facility] VASCULAR DIAGRAM -SCAN 2019-08-05 10:30:15 Provider, Default [facility] BASIC METABOLIC PANEL (7) 2019-08-04 05:33:00 Romana, Varsha antunez [facility] CBC (HEMOGRAM ONLY) 2019-08-04 05:33:00 Romana, Varsha Frias [facility] ECHOCARDIOGRAM REPORT - 2019-08-03 21:21:16 Provider, Default [facility] POCT-GLUCOSE METER 2019-08-03 21:12:00 Romana, Varsha Lópezjohnnietulio [facility] POCT-GLUCOSE METER 2019-08-03 17:36:00 Romana, Varsha Frias [facility] RHYTHM STRIP - SCAN 2019-08-03 10:23:19 Provider, Default [facility] BASIC METABOLIC PANEL (7) 2019-08-03 05:01:00 Romana Varsha Lópezjohnnie tulio [facility] MAGNESIUM 2019-08-03 05:01:00 Romana, Varsha Frias [facility] CBC (HEMOGRAM ONLY) 2019-08-03 05:01:00 Romana, Varsha Frias [facility] POCT-GLUCOSE METER 2019-08-02 22:44:00 Romana, Varsha Frias [facility] 2D ECHO W/ DOPPLER 2019-08-02 21:46:[address] [facility] (CW/PW/COLOR) [facility] POCT-GLUCOSE METER 2019-08-02 12:34:00 Romana, Varsha Frias [facility] ECG 12-LEAD 2019-08-02 06:01:55 Unknown, Hl7 Doctor [facility] BASIC METABOLIC PANEL (7) 2019-08-02 04:49:00 Romana Varsha Lópezjohnnie a [facility] MAGNESIUM 2019-08-02 04:49:00 Romana, Varsha Frias [facility] CBC (HEMOGRAM ONLY) 2019-08-02 04:49:00 RomanaVarsha laws [facility] PHOSPHORUS 2019-08-02 04:49:00 Romana, Varsha Frias [facility] POCT-GLUCOSE METER 2019-08-01 20:21:00 Romana, Varsha jon [facility] POCT-GLUCOSE METER 2019-08-01 17:36:00 Romnaa, Varsha jon [facility] POCT-GLUCOSE METER 2019-08-01 07:49:00 Romana, Varsha Frias [facility] BASIC METABOLIC PANEL (7) 2019-08-01 05:04:00 Romana Varsha Nora antunez [facility] MAGNESIUM 2019-08-01 05:04:00 Romana, Varsha Frias [facility] PHOSPHORUS 2019-08-01 05:04:00 [facility] ([facility] ONLY[facility] 2019-08-01 05:04:00 Romana, Varsha jon [facility] HEMOGLOBIN A1C 2019-08-01 05:04:00 [facility] POCT-GLUCOSE METER 2019-07-31 21:40:00 Romana, Varsha jon [facility] POCT-GLUCOSE METER 2019-07-31 18:29:00 Romana [facility] TRANSFUSION SERVICE REPORT 2019-07-31 18:00:47 Provider, Default [facility] - - SCAN Scanning [facility] POCT-GLUCOSE METER 2019-07-31 12:12:00 [facility]SE [facility]ER 2019-07-31 07:54:00 Romana, [facility] XR CHEST 1 VIEW 2019-07-31 07:38:00 Filemon Burroughs [facility] PT/APTT 2019-07-31 06:30:00 Brandon Lopez [facility] BASIC METABOLIC PANEL (7) 2019-07-31 06:30:00 Gal Lopezmalinda hong [facility] MAGNESIUM 2019-07-31 06:30:00 Gal Lopezhan [facility] PHOSPHORUS 2019-07-31 06:30:[address] [facility] CBC (HEMOGRAM ONLY) 2019-07-31 06:30:00 John Gal [facility] PREPARE PLATELETS 2019-07-30 23:54:00 Juan Gallardo [facility] POCT-GLUCOSE METER 2019-07-30 21:18:00 Romana [facility] POCT-GLUCOSE METER 2019-07-30 17:48:00 Romana, [facility] TRANSFUSION SERVICE REPORT 2019-07-30 17:45:05 Provider, [facility] TRANSFUSION SERVICE REPORT 2019-07-30 17:45:00 Provider, [facility] POCT-GLUCOSE METER 2019-07-30 12:50:00 Romana [facility] POCT-GLUCOSE METER 2019-07-30 09:13:00 Romana [facility] BASIC METABOLIC PANEL (7) 2019-07-30 05:03:00 Brandon Lopez [facility] MAGNESIUM 2019-07-30 05:03:00 [facility] PT/APTT 2019-07-30 05:03:00 John Toalberta [facility] PROTHROMBIN TIME/INR 2019-07-30 05:03:00 Brandon Lpoez [facility] PHOSPHORUS 2019-07-30 05:03:[address] [facility] CALCIUM, IONIZED 2019-07-30 05:03:00 Iginiamre [facility] OXYGEN SATURATION, 2019-07-30 05:03:00 Iginiamre Nano [facility] CBC W/PLT COUNT & AUTO 2019-07-30 05:03:00 FelisaBrandon valenzuela [facility] XR CHEST 1 VIEW 2019-07-30 03:57:[address] [facility] PORTABLE/BEDSIDE [facility] POCT-GLUCOSE METER 2019-07-30 01:43:00 [facility] POCT-GLUCOSE METER 2019-07-29 18:10:00 Romana, [facility] POTASSIUM 2019-07-29 18:00:00 Filemon Burroughs [facility] BLOOD GAS, ARTERIAL 2019-07-29 16:51:00 Kory Walker [facility] POCT-GLUCOSE METER 2019-07-29 15:06:00 Romana, [facility] POCT-GLUCOSE METER 2019-07-29 14:24:00 Romana, [facility] POCT-GLUCOSE METER 2019-07-29 14:10:00 Romana, [facility] XR CHEST 1 VIEW 2019-07-29 12:59:00 Gal Lopez [facility]/BEDSIDE [facility] POCT-GLUCOSE METER 2019-07-29 12:56:00 Romana, [facility] LACTIC ACID, ARTERIAL 2019-07-29 11:52:00 Filemon Burroughs [facility] CALCIUM, IONIZED 2019-07-29 11:52:00 Filemon Burroughs [facility] APTT 2019-07-29 11:51:00 Filemon Burroughs [facility] PROTHROMBIN TIME/INR 2019-07-29 11:51:00 Filemon Burroughs [facility] OXYGEN SATURATION, 2019-07-29 11:43:00 Gal Lopez [facility] PREPARE RBC 2019-07-29 11:43:00 Juan Gallardo [facility] BASIC METABOLIC PANEL (7) 2019-07-29 11:38:00 LopezGal [facility] BLOOD GAS, ARTERIAL 2019-07-29 11:38:00 Gal Lopez [facility] MAGNESIUM 2019-07-29 11:38:00 Gal Lopez [facility] PHOSPHORUS 2019-07-29 11:38:00 Filemon Burroughs [facility] CBC W/PLT COUNT & AUTO 2019-07-29 11:38:[facility] 2019-07-29 10:27:00 RomanaVarsha jon [facility] CALCIUM, IONIZED 2019-07-29 10:25:35 [facility] BLOOD GAS, ARTERIAL 2019-07-29 10:25:35 [facility] 2019-07-29 10:25:35 [facility] POTASSIUM-STAT LAB 2019-07-29 10:25:35 [facility] GLUCOSE-STAT LAB 2019-07-29 10:25:35 [facility] HGB/HCT (H&H) - STAT LAB 2019-07-29 10:25:35 [facility] TRANSFUSE LEUKO-REDUCED 2019-07-29 10:14:04 [facility]UCED 2019-07-29 10:02:42 [facility] POCT-ACT 2019-07-29 09:58:00 RomanaVarsha laws [facility] BLOOD GAS, ARTERIAL 2019-07-29 09:57:[address] [facility] SODIUM NA-STAT LAB 2019-07-29 09:57:29 Paulina [facility] POTASSIUM-STAT LAB 2019-07-29 09:57:29 Juan Gallardo [facility] GLUCOSE-STAT LAB 2019-07-29 09:57:[address] [facility] HGB/HCT (H&H) - STAT LAB 2019-07-29 09:57:[address] [facility] BLOOD GAS, ARTERIAL 2019-07-29 09:47:[address] [facility] SODIUM NA-STAT LAB 2019-07-29 09:47:25 Juan Gallardo [facility] POTASSIUM-STAT LAB 2019-07-29 09:47:25 Juan Gallardo [facility] GLUCOSE-STAT LAB 2019-07-29 09:47:[address] [facility] HGB/HCT (H&H) - STAT LAB 2019-07-29 09:47:[address] [facility] ANESTHESIA LAKSHMI 2019-07-29 09:45:49 [facility] POCT-ACT 2019-07-29 09:32:00 Varsha Avendano Hyunna [facility] CALCIUM, IONIZED 2019-07-29 08:50:41 [facility] BLOOD GAS, ARTERIAL 2019-07-29 08:50:41 [facility] SODIUM NA-STAT LAB 2019-07-29 08:50:41 [facility] POTASSIUM-STAT LAB 2019-07-29 08:50:41 [facility] GLUCOSE-STAT LAB 2019-07-29 08:50:41 [facility] HGB/HCT (H&H) - STAT LAB 2019-07-29 08:50:41 [facility] BYPASS,AORTO CORONARY 2019-07-29 08:00:00 PaulinaJuan galindo [facility] SANDRA/SVG [facility] HEMOGLOBIN A1C 2019-07-29 06:44:00 Rosario Tolliver [facility] APTT 2019-07-29 06:44:00 Dax Seaman [facility] PLATELET AGGREGATION: 2019-07-29 06:44:00 Dax Seaman [facility] FUNCTION SCREEN [facility] ABORH, MANUAL 2019-07-29 06:44:00 Marilny Knutson [facility] XR CHEST 1 VIEW 2019-07-29 06:15:00 Juan Gallardo [facility] s - PORTABLE/BEDSIDE [facility] ECG 12-LEAD 2019-07-29 05:32:12 Dax Seaman Rosario [facility] CBC W/PLT COUNT & AUTO 2019-07-29 05:09:00 Brandon Lopez [facility] BASIC METABOLIC PANEL (7) 2019-07-29 05:08:00 Brandon Lopez [facility] MAGNESIUM 2019-07-29 05:08:00 John alberta [facility] PT/APTT 2019-07-29 05:08:00 Tanjon [facility] PROTHROMBIN TIME/INR 2019-07-29 05:08:00 John Toalberta [facility] PHOSPHORUS 2019-07-29 05:08:00 Gal Lopez [facility] TYPE AND SCREEN, AUTOMATED 2019-07-29 05:08:00 Brandon Lopez [facility] Plan of Care Planned Activity Planned Date Details Comments Source Future Scheduled 2020-06-14 INFLUENZA VACCINE [facility]00 (Season Ended) [code = [facility] INFLUENZA VACCINE (Season Ended)] Future Scheduled 2019-10-[address] [facility] - Test 00:00:00 WELLNESS (YEAR 2 or Medical Center FIRST YEAR if no IPPE) [code = MEDICARE ANNUAL WELLNESS (YEAR 2 or FIRST YEAR if no IPPE)] Future Scheduled 2016 P[address]UMOCOCCAL [address] Test 00:00:00 LOW/MEDIUM RISK (1 of [facility] 2 - PCV13) [code = PNEUMOCOCCAL 65+ LOW/MEDIUM RISK (1 of 2 - PCV13)] Future Scheduled 1950 BREAST CANCER [facility] St Dhruv es - Test 00:00:00 SCREENING [code = Medical Ce nter BREAST CANCER SCREENING] Future Scheduled 1950 COLON CANCER SCREENING [facility] - Test 00:00:00 COLONOSCOPY [code = [facility] COLON CANCER SCREENING COLONOSCOPY] Results Test Description Test Time Test Comments Results Result Comments Source Basic Metabolic Panel 2019-08-04 06:24:00 Test Item Value Reference Range Interpretation Comme nts Sodium (test code = 2951-2) 139 meq/L 136-145 Potassium (test code = 2823-3) 4.0 meq/L 3.5-5.1 Chloride (test code = 2075-0) 105 meq/L 98-107 CO2 (test code = 8-9) 30 meq/L 22-29 H BUN (test code = 3094-0) 8 mg/dL 7-21 Creatinine (test code = 2160-0) 0.64 mg/dL 0.57-1.25 Glucose (test code = 2345-7) 116 mg/dL 70-105 H Calcium (test code = 51896-9) 8.7 mg/dL 8.4-10.2 EGFR (test code = 08523-1) I NSUFFICIENT CLINICAL DATA TO CALCULATE ESTIM ATED GFR. Lab Interpretation (test code = Abnormal 35153-9) [facility]OLIC [id number] 06:24:00 Test Item Value Reference Range Interpretation Comments SODIUM (BEAKER) (test 139 meq/L 136-145 code = 381) POTASSIUM (BEAKER) 4.0 meq/L 3.5-5.1 (test code = 379) CHLORIDE (BEAKER) 105 meq/L 98-107 (test code = 382) CO2 (BEAKER) (test 30 meq/L 22-29 H code = 355) BLOOD UREA NITROGEN 8 mg/dL 7-21 (BEAKER) (test code = 354) CREATININE (BEAKER) 0.64 mg/dL 0.57-1.25 (test code = 358) GLUCOSE RANDOM 116 mg/dL 70-105 H (BEAKER) (test code = 652) CALCIUM (BEAKER) 8.7 mg/dL 8.4-10.2 (test code = 697) EGFR (BEAKER) (test INSUFFIC IENT CLINICAL code = 1092) DATA TO CALCULA TE ESTIMATED GFR. CBC (Hemogram only)2019-08-04 05:47:00 Test Item Value Reference Range Interpretation Comments WBC (test code = 6690-2) 10.3 3.5- 10.5 K/L RBC (test code = 789-8) 2.72 3.93- 5.22 M/L L MCHC (test code = 786-4) 31.0 32.2- 35.5 GM/DL L Hematocrit (test code = 4544-3) 29.0 % 34.1-44.9 L MCV (test code = 787-2) 106.6 fL 79.4-94.8 H MCH (test code = 785-6) 33.1 pg 25.6-32.2 H RDW (test code = 788-0) 19.7 % 11.7-14.4 H Platelets (test code = 777-3) 343 150- 450 K/CU MM MPV (test code = 52576-6) 9.9 fL 9.4-12.3 nRBC (test code = 413) 0 0- 0 /100 WBC Lab Interpretation (test code = Abnormal 38935-8) [facility]2019-08-04 05:47:00 Test Item Value Reference Range Interpretation Comments WHITE BLOOD CELL COUNT (BEAKER) 10.3 K/ L 3.5-10.5 (test code = 775) RED BLOOD CELL COUNT (BEAKER) 2.72 M/ L 3.93-5.22 L (test code = 761) HEMOGLOBIN (BEAKER) (test code = 9.0 GM/DL 11.2-15.7 L 410) HEMATOCRIT (BEAKER) (test code = 29.0 % 34.1-44.9 L 411) MEAN CORPUSCULAR VOLUME (BEAKER) 106.6 fL 79.4-94.8 H (test code = 753) MEAN CORPUSCULAR HEMOGLOBIN 33.1 pg 25.6-32.2 H (BEAKER) (test code = 751) MEAN CORPUSCULAR HEMOGLOBIN CONC 31.0 GM/DL 32.2-35.5 L (BEAKER) (test code = 752) RED CELL DISTRIBUTION WIDTH 19.7 % 11.7-14.4 H (BEAKER) (test code = 412) PLATELET COUNT (BEAKER) (test 343 K/CU MM 150-450 code = 756) MEAN PLATELET VOLUME ([facility]) 9.9 fL 9.4-12.3 (test code = 754) NUCLEATED RED BLOOD CELLS 0 /100 WBC 0-0 (AKER) (test code = 413) POC-Glucose [id number] 21:22:00 Test Item Value Reference Range Interpretation Comments POC-Glucose Meter (test 138 mg/dL 70-110 H TEST ED AT [facility] code = 1538) [address] [place] [address] 7703 0 Lab Interpretation (test Abnormal code = 82958-8) [facility] [id number] 21:22:00 Test Item Value Reference Range Interpretation Comments POC-GLUCOSE METER 138 mg/dL 70-110 H TESTED AT [facility] [address] ([facility]) (test code = ERENDIRA Guzman [facility] 1538) [address] POCT-GLUCOSE [id number] 17:38:00 Test Item Value Reference Range Interpretation Comments POC-GLUCOSE METER 131 mg/dL 70-110 H TESTED AT [place] [address] (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 Amount - 2 mlHeight: 61 inches Weight: 75.75 kg (167 lbs) BSA: 1.75 m^2 BMI: 31.55 kg/m^2HR: 80 bpm BP: 137/63 mmHg Summary The left ventricle is chamber size (by vol index) is normal (female - LVED vol - 29-61ml/m2). Septal motion is abnormal, likely related to priorcardiac surgery . The other segments contract normally. LVEF by Paez's method of disk assessment is normal (>60%) . Grade 2 diastolic dysfunction (moderately increased LA pressure). Estimated peak systolic PA pressure is 35-40 mmHg . Previous Study No prior studies available for comparison. Signature Findings Technical Quality: Technically adequate exam. Left Ventricle LV endocardium is adequately visualized with IV ultrasound enhancingagent. The left ventricle is chamber size (by vol index) is normal (female - LVED vol - 29-61ml/m2). No evidence of LV hypertrophy. Septal motion is abnormal, likely related to prior cardiac surgery . The other segments contract normally. Global LV systolic function normal . LVEF by Paez's method of disk assessment is normal (>60%) . Grade 2 diastolic dysfunction (moderately increased LA pressure). Left Atrium LA size is normal (16-34 ml/m2) . Right Ventricle RV chamber size appears normal by limited views . Global RV systolic function is normal . Right Atrium RA size is normal. Aortic Valve Mild AoV cusp thickening. No evidence of aortic regurgitation. Mitral Valve Mild MV leaflet thickening. No evidence of mitral regurgitation. Tricuspid Valve Mild tricuspid regurgitation. Estimated peak systolic PA pressure is 35-40 mmHg . Pulmonic Valve PV is not well visualized; function appears normal by Doppler visualized. Aorta Aortic root size (SInus of Valsalva diameter) is normal . Pericardium No pericardial effusion is visualized. IVC/SVC/PA/PV/Pleural The estimated RA pressure by IVC dynamics 5-10mmHg . Chambers/Structures Left Atrium LA Volume: 42.79 ml LA Area: 16.23 cm^2 LA Vol. Index: 24 ml/m^2 Left Ventricle LVIDd: 4.06cm LV Septum Diastolic: 1.12 cm LV PW Diastolic: 1.01 cm LVEDV Paez's:70.48 ml LVESV Paez's:21.99 ml LVEF Paez's: 68.8 % LVEDVI: 40 ml/m^2 LVESVI: 13 ml/m^2 LVOT Diameter: 2.07 cm Aorta Ao Root S of Marjan.: 3.02 cm Doppler/Quantit ative Measurements Mitral Valve MV Peak E-Wave: 1.24 m/s MV Peak A-Wave: 0.9 m/s E/A Ratio: 1.38 Peak Gradient:6.18 mmHg Deceleration Time: 190.7 msec MV Andrzej. Peak: TissueDoppler E' Lateral Velocity: 0.06 m/s E/E': 20.6 Aortic Valve Peak Velocity: 1.15 m/s Mean Velocity: 0.73 m/s Peak Gradient: 5.25 mmHg Mean Gradient: 2.53 mmHg AV Area (continuity): 2.63 cm^2 AV VTI: 23.22 cm AV DVI: 0.78 LVOT Peak Velocity: 0.74 m/s Peak Gradient: 2.17 mmHg Mean Velocity: 0.56 m/s Mean Gradient: 1.39 mmHg LVOT Diameter: 2.07 cm LVOT VTI: 18.18 cm LVOT Area: 3.37 cm^2 LVOT SV:61.15 ml LVOT CO: 4.89 l/min LVOT CI: 2.79 l/min/m^2 Tricuspid Valve TR Velocity: 2.61 m/s TR Gradient: 27.18 mmHgCHI [facility] Medical Center [facility] San JoseEC 12 [id number] 08:08:17Interface, External Ris In - 08/03/2019 8:08 AM CDTVentricular Rate 66 BPMAtrial Rate 66 BPMP-R Interval 160 msQRS Duration 80 msQ-T Interval 420 msQTC Calculation(Bazett) 440 msP [place] 36 degreesR [place] 40 degreesT [place] 32 degreesSinus rhythm with occasional Premature ventricular complexesOtherwise normal ECGWhen compared with ECG of 29-JUL-2019 05:32,ST-T changes are no longer present.Confirmed by Daksha OLVERA MICHAEL ([id number]) on 08/03/2019 8:08:11 [facility] 2019-08-03 06:07:00 Test Item Value Reference Range Interpretation Comments SODIUM (BEAKER) (test 140 meq/L 136-145 code = 381) POTASSIUM (BEAKER) 3.7 meq/L 3.5-5.1 (test code = 379) CHLORIDE (BEAKER) 107 meq/L 98-107 (test code = 382) CO2 (BEAKER) (test 29 meq/L 22-29 code = 355) BLOOD UREA NITROGEN 8 mg/dL 7-21 (BEAKER) (test code = 354) CREATININE (BEAKER) 0.61 mg/dL 0.57-1.25 (test code = 358) GLUCOSE RANDOM 124 mg/dL 70-105 H (BEAKER) (test code = 652) CALCIUM (BEAKER) 8.5 mg/dL 8.4-10.2 (test code = 697) EGFR (BEAKER) (test INSUFFIC IENT CLINICAL code = 1092) DATA TO CALCULA TE ESTIMATED GFR. [id number] 06:04:00 Test Item Value Reference Range Interpretation Comments Magnesium (test code = 58581-9) 1.8 mg/dL 1.6-2.6 Lab Interpretation (test code = Normal 46838-4) [facility]:04[facility]00 Test Item Value Reference Range Interpretation Comments MAGNESIUM (BEAKER) (test code = 1.8 mg/dL 1.6-2.6 627) CBC (HEMOGRAM ONLY)2019-08-03 06:04:00 Test Item Value Reference Range Interpretation Comments WHITE BLOOD CELL COUNT (BEAKER) 11.8 K/ L 3.5-10.5 H (test code = 775) RED BLOOD CELL COUNT (BEAKER) 2.62 M/ L 3.93-5.22 L (test code = 761) HEMOGLOBIN (BEAKER) (test code = 8.8 GM/DL 11.2-15.7 L 410) HEMATOCRIT (BEAKER) (test code = 28.0 % 34.1-44.9 L 411) MEAN CORPUSCULAR VOLUME (BEAKER) 106.9 fL 79.4-94.8 H (test code = 753) MEAN CORPUSCULAR HEMOGLOBIN 33.6 pg 25.6-32.2 H (BEAKER) (test code = 751) MEAN CORPUSCULAR HEMOGLOBIN CONC 31.4 GM/DL 32.2-35.5 L (BEAKER) (test code = 752) RED CELL DISTRIBUTION WIDTH 19.9 % 11.7-14.4 H (BEAKER) (test code = 412) PLATELET COUNT (BEAKER) (test 289 K/CU MM 150-450 code = 756) MEAN PLATELET VOLUME (BEAKER) 10.4 fL 9.4-12.3 (test code = 754) NUCLEATED RED BLOOD CELLS 1 /100 WBC 0-0 H (AKER) (test code = 413) POCT-GLUCOSE [id number] 23:10:00 Test Item Value Reference Range Interpretation Comments POC-GLUCOSE METER 127 mg/dL 70-110 H TESTED AT [place] [address] ([facility]) (test code = [place] 1538) [address] POCT-GLUCOSE [id number] 12:36:00 Test Item Value Reference Range Interpretation Comments POC-GLUCOSE METER 157 mg/dL 70-110 H TESTED AT [place] [address] ([facility]) (test code = [place] 1538) [address] CBC (HEMOGRAM ONLY)2019-08-02 06:03:00 Test Item Value Reference Range Interpretation Comments WHITE BLOOD CELL COUNT (BEAKER) 11.6 K/ L 3.5-10.5 H (test code = 775) RED BLOOD CELL COUNT (BEAKER) 2.55 M/ L 3.93-5.22 L (test code = 761) HEMOGLOBIN (BEAKER) (test code = 8.5 GM/DL 11.2-15.7 L 410) HEMATOCRIT (BEAKER) (test code = 27.1 % 34.1-44.9 L 411) MEAN CORPUSCULAR VOLUME (BEAKER) 106.3 fL 79.4-94.8 H (test code = 753) MEAN CORPUSCULAR HEMOGLOBIN 33.3 pg 25.6-32.2 H (BEAKER) (test code = 751) MEAN CORPUSCULAR HEMOGLOBIN CONC 31.4 GM/DL 32.2-35.5 L (BEAKER) (test code = 752) RED CELL DISTRIBUTION WIDTH 19.4 % 11.7-14.4 H (BEAKER) (test code = 412) PLATELET COUNT (BEAKER) (test 263 K/CU MM 150-450 code = 756) MEAN PLATELET VOLUME (BEAKER) 10.6 fL 9.4-12.3 (test code = 754) NUCLEATED RED BLOOD CELLS 0 /100 WBC 0-0 (BEAKER) (test code = 413) BASIC METABOLIC [id number] 05:47:00 Test Item Value Reference Range Interpretation Comments SODIUM (BEAKER) (test 139 meq/L 136-145 code = 381) POTASSIUM (BEAKER) 3.7 meq/L 3.5-5.1 (test code = 379) CHLORIDE (BEAKER) 106 meq/L 98-107 (test code = 382) CO2 (BEAKER) (test 30 meq/L 22-29 H code = 355) BLOOD UREA NITROGEN 10 mg/dL 7-21 (BEAKER) (test code = 354) CREATININE (BEAKER) 0.63 mg/dL 0.57-1.25 (test code = 358) GLUCOSE RANDOM 150 mg/dL 70-105 H (BEAKER) (test code = 652) CALCIUM (BEAKER) 8.3 mg/dL 8.4-10.2 L (test code = 697) EGFR (BEAKER) (test INSUFFIC IENT CLINICAL code = 1092) DATA TO CALCULA TE ESTIMATED GFR. [id number] 05:46:00 Test Item Value Reference Range Interpretation Comments Phosphorus (test code = 2777-1) 2.5 mg/dL 2.3-4.7 Lab Interpretation (test code = Normal 34855-0) [facility]2019-[facility]20 05:46:00 Test Item Value Reference Range Interpretation Comments PHOSPHORUS (BEAKER) (test code = 2.5 mg/dL 2.3-4.7 604) [id number] 05:46:00 Test Item Value Reference Range Interpretation Comments MAGNESIUM (BEAKER) (test code = 2.1 mg/dL 1.6-2.6 627) POCT-GLUCOSE [id number] 20:47:00 Test Item Value Reference Range Interpretation Comments POC-GLUCOSE METER 164 mg/dL 70-110 H TESTED AT [facility] 67[address] (BEAKER) (test code = ERENDIR[place] 1538) [address] POCT-GLUCOSE [id number] 17:38:00 Test Item Value Reference Range Interpretation Comments POC-GLUCOSE METER 194 mg/dL 70-110 H TESTED AT [place] [address] (BEAKER) (test code = ERENDIRA [place] 1538) [address] Hemoglobin [id number] 07:51:00 Test Item Value Reference Range Interpretation Comments Hemoglobin A1C (test code = 4548-4) 8.6 % 4.3-6.1 H Lab Interpretation (test code = Abnormal 35395-4) [facility] [id number] 07:51:00 Test Item Value Reference Range Interpretation Comments POC-GLUCOSE METER 157 mg/dL 70-110 H TESTED AT [place] [address] (BEAKER) (test code = ERENDIRA [place] 1538) [address] HEMOGLOBIN [id number] 07:51:00 Test Item Value Reference Range Interpretation Comments HEMOGLOBIN A1C (BEAKER) (test code = 8.6 % 4.3-6.1 H 368) BASIC METABOLIC [id number] 06:11:00 Test Item Value Reference Range Interpretation Comments SODIUM (BEAKER) (test 138 meq/L 136-145 code = 381) POTASSIUM (BEAKER) 3.8 meq/L 3.5-5.1 (test code = 379) CHLORIDE (BEAKER) 104 meq/L 98-107 (test code = 382) CO2 (BEAKER) (test 28 meq/L 22-29 code = 355) BLOOD UREA NITROGEN 12 mg/dL 7-21 (BEAKER) (test code = 354) CREATININE (BEAKER) 0.66 mg/dL 0.57-1.25 (test code = 358) GLUCOSE RANDOM 175 mg/dL 70-105 H (BEAKER) (test code = 652) CALCIUM (BEAKER) 9.1 mg/dL 8.4-10.2 (test code = 697) EGFR (BEAKER) (test INSUFFIC IENT CLINICAL code = 1092) DATA TO CALCULA TE ESTIMATED GFR. [id number] 06:10:00 Test Item Value Reference Range Interpretation Comments PHOSPHORUS (BEAKER) (test code = 1.9 mg/dL 2.3-4.7 L 604) [id number] 06:10:00 Test Item Value Reference Range Interpretation Comments MAGNESIUM (BEAKER) (test code = 2.3 mg/dL 1.6-2.6 627) CBC (HEMOGRAM ONLY)2019-08-01 05:30:00 Test Item Value Reference Range Interpretation Comments WHITE BLOOD CELL COUNT (BEAKER) 13.8 K/ L 3.5-10.5 H (test code = 775) RED BLOOD CELL COUNT (BEAKER) 2.98 M/ L 3.93-5.22 L (test code = 761) HEMOGLOBIN (BEAKER) (test code = 10.0 GM/DL 11.2-15.7 L 410) HEMATOCRIT (BEAKER) (test code = 31.3 % 34.1-44.9 L 411) MEAN CORPUSCULAR VOLUME (BEAKER) 105.0 fL 79.4-94.8 H (test code = 753) MEAN CORPUSCULAR HEMOGLOBIN 33.6 pg 25.6-32.2 H (BEAKER) (test code = 751) MEAN CORPUSCULAR HEMOGLOBIN CONC 31.9 GM/DL 32.2-35.5 L (BEAKER) (test code = 752) RED CELL DISTRIBUTION WIDTH 19.0 % 11.7-14.4 H (BEAKER) (test code = 412) PLATELET COUNT (BEAKER) (test 277 K/CU MM 150-450 code = 756) MEAN PLATELET VOLUME (BEAKER) 10.5 fL 9.4-12.3 (test code = 754) NUCLEATED RED BLOOD CELLS 0 /100 WBC 0-0 (BEAKER) (test code = 413) POCT-GLUCOSE [id number] 22:07:00 Test Item Value Reference Range Interpretation Comments POC-GLUCOSE METER 175 mg/dL 70-110 H TESTED AT [facility] 67[address] (BEAKER) (test code = ERENDIRA [place] 1538) [address] POCT-GLUCOSE [id number] 18:30:00 Test Item Value Reference Range Interpretation Comments POC-GLUCOSE METER 225 mg/dL 70-110 H TESTED AT [facility] 67[address] (BEAKER) (test code = ERENDIRA Guz[place] 1538) [address] POCT-GLUCOSE [id number] 12:17:00 Test Item Value Reference Range Interpretation Comments POC-GLUCOSE METER 170 mg/dL 70-110 H TESTED AT [facility] 67[address] (BEAKER) (test code = ERENDIRA Guz[place] 1538) [address] POCT-GLUCOSE [id number] 08:20:00 Test Item Value Reference Range Interpretation Comments POC-GLUCOSE METER 161 mg/dL 70-110 H TESTED AT [facility] 67[address] (BEAKER) (test code = ERENDIRA Guz[place] 1538) [address] BASIC METABOLIC [id number] 08:18:00 Test Item Value Reference Range Interpretation Comments SODIUM (BEAKER) (test 136 meq/L 136-145 code = 381) POTASSIUM (BEAKER) 4.1 meq/L 3.5-5.1 Specimen slightly (test code = 379) hemolyzed CHLORIDE (BEAKER) 105 meq/L 98-107 (test code = 382) CO2 (BEAKER) (test 24 meq/L 22-29 code = 355) BLOOD UREA NITROGEN 11 mg/dL 7-21 (BEAKER) (test code = 354) CREATININE (BEAKER) 0.63 mg/dL 0.57-1.25 Specimen slightly (test code = 358) hemolyzed GLUCOSE RANDOM 156 mg/dL 70-105 H (BEAKER) (test code = 652) CALCIUM (BEAKER) 8.5 mg/dL 8.4-10.2 (test code = 697) EGFR (BEAKER) (test INSUFFIC IENT CLINICAL code = 1092) DATA TO CALCULA TE ESTIMATED GFR. [id number] 08:15:00 Test Item Value Reference Range Interpretation Comments MAGNESIUM (BEAKER) 1.9 mg/dL 1.6-2.6 Specimen slightly (test code = 627) hemolyzed [id number] 08:15:00 Test Item Value Reference Range Interpretation Comments PHOSPHORUS (BEAKER) 2.3 mg/dL 2.3-4.7 Specimen slightly (test code = 604) hemolyzed RAD, CHEST, 1 VIEW, NON [id number] 07:56:00Reason for exam:->post-op cardiac surgeryShould this be [...] MDReport Verified Date/Time: 07/31/2019 07:56:15 Reading Location: [facility] Reading Room XR chest 1 view portable / [id number] 07:56:00 Interface, External Ris In - 07/31/2019 7:58 AM CDTFINAL REPORT RAD, CHEST, 1 VIEW, NON DEPT INDICATION: post-op cardiac surgery COMPARISON: Prior day's exam FINDINGS: Portable frontal view of the chest. IMPRESSION: Support Lines: Right IJ central venous catheter has been removed. Lungs and pleura: Lungs are underinflated but clear. No pneumothorax.Heart and mediastinum: Stable contours. Stable surgical changes.Additional findings: None. Signed: JR Wilkerson Robert MDReport Verified Date/Time: 07/31/2019 07:56:15 Reading Location: [facility] Reading [id number] 07:25:00 Test Item Value Reference Range Interpretation Comments Protime (test code = 14.5 11.9- 14.2 H 5902-2) seconds INR (test code = 1.2 <=5.9 6301-6) PTT (test code = 33.1 22.5- 36.0 53226-9) seconds GABRIELA (test code = GABRIELA) Effective 03/11/2019: PT Reference Range ChangeNew: 11.9-14.2 Previous: 11.7-14.7 RECOMMENDED COUMADIN/WARFARIN INR THERAPY RANGESSTANDARD DOSE: 2.0-3.0 Includes: PROPHYLAXIS for venous thrombosis, systemic embolization; TREATMENT for venous thrombosis and/or pulmonary embolus.HIGH RISK: Target INR is 2.5-3.5 for patients wiht mechanical heart valves. Lab Interpretation Abnormal (test code = 21610-1) [facility][id number] 07:25:00 Test Item Value Reference Range Interpretation Comments PROTIME (BEAKER) (test code = 14.5 seconds 11.9-14.2 H 759) INR (BEAKER) (test code = 370) 1.2 <=5.9 PARTIAL THROMBOPLASTIN TIME 33.1 seconds 22.5-36.0 (BEAKER) (test code = 760) Effective 03/11/2019: PT Reference Range ChangeNew: 11.9-14.2 Previous: 11.7- 14.7RECOMMENDED COUMADIN/WARFARIN INR THERAPY RANGESSTANDARD DOSE: 2.0-3.0 Includes: PROPHYLAXIS for venous thrombosis, systemic embolization; TREATMENT for venous thrombosis and/or pulmonary embolus.HIGH RISK: Target INR is2.5-3.5 for patients wiht mechanical heart valves.CBC (HEMOGRAM ONLY)2019-07-31 07:14:00 Test Item Value Reference Range Interpretation Comments WHITE BLOOD CELL COUNT (BEAKER) 14.3 K/ L 3.5-10.5 H (test code = 775) RED BLOOD CELL COUNT (BEAKER) 2.74 M/ L 3.93-5.22 L (test code = 761) HEMOGLOBIN (BEAKER) (test code = 8.9 GM/DL 11.2-15.7 L 410) HEMATOCRIT (BEAKER) (test code = 28.6 % 34.1-44.9 L 411) MEAN CORPUSCULAR VOLUME (BEAKER) 104.4 fL 79.4-94.8 H (test code = 753) MEAN CORPUSCULAR HEMOGLOBIN 32.5 pg 25.6-32.2 H (BEAKER) (test code = 751) MEAN CORPUSCULAR HEMOGLOBIN CONC 31.1 GM/DL 32.2-35.5 L (BEAKER) (test code = 752) RED CELL DISTRIBUTION WIDTH 19.2 % 11.7-14.4 H ([facility]) (test code = 412) PLATELET COUNT ([facility]) (test 218 K/CU MM 150-450 code = 756) MEAN PLATELET VOLUME ([facility]) 11.0 fL 9.4-12.3 (test code = 754) NUCLEATED RED BLOOD CELLS 0 /100 WBC 0-0 ([facility]) (test code = 413) Prepare [id number] 23:54:00 Test Item Value Reference Range Interpretation Comments Unit ABO (test code = 5857638) B Pos UNIT NUMBER (test code = [id number] 934-0) Status (test code = 6618269) [place]_TIMEINCHART Blood Bank Product (test code PLATELETS = 2263) PRODUCT CODE (test code = C3854M39 933-2) [facility] [id number] 21:32:00 Test Item Value Reference Range Interpretation Comments POC-GLUCOSE METER 168 mg/dL 70-110 H TESTED AT [place] [address] ([facility]) (test code = [place]IR[place] 1538) [address] POCT-GLUCOSE [id number] 17:55:00 Test Item Value Reference Range Interpretation Comments POC-GLUCOSE METER 172 mg/dL 70-110 H TESTED AT [place] [address] ([facility]) (test code = [place] 1538) [address] POCT-GLUCOSE [id number] 15:34:00 Test Item Value Reference Range Interpretation Comments POC-GLUCOSE METER 152 mg/dL 70-110 H TESTED AT [place] [address] ([facility]) (test code = [place] 1538) [address] POCT-GLUCOSE [id number] 12:52:00 Test Item Value Reference Range Interpretation Comments POC-GLUCOSE METER 222 mg/dL 70-110 H TESTED AT [place] [address] ([facility]) (test code = [place] 1538) [address] POCT-GLUCOSE [id number] 07:19:00 Test Item Value Reference Range Interpretation Comments POC-GLUCOSE METER 185 mg/dL 70-110 H TESTED AT [place] [address] ([facility]) (test code = [place] 1538) [address] POC ACTIVATED CLOTTING [id number] 06:16:00 Test Item Value Reference Range Interpretation Comments Activated Clotting Time 109 sec Refe rence Range: 74-137 (test code = 441) seconds, B aseline/TESTED AT [place] [address] B [facility] [address] [facility]PO[facility]-[id number] 06:16:00 Test Item Value Reference Range Interpretation Comments ACTIVATED CLOTTING TIME 109 sec Refe rence Range: (BEAKER) (test code = 74-137 seconds, 441) Baseline/TESTED AT [address] [address] [id number] 06:16:00 Test Item Value Reference Range Interpretation Comments ACTIVATED CLOTTING TIME 543 sec Refe rence Range: (BEAKER) (test code = 74-137 seconds, 441) Baseline/TESTED AT [address] [address] [id number] 06:16:00 Test Item Value Reference Range Interpretation Comments ACTIVATED CLOTTING TIME 510 sec Refe rence Range: (BEAKER) (test code = 74-137 seconds, 441) Baseline/TESTED AT [address] [address] BASIC METABOLIC [id number] 06:04:00 Test Item Value Reference Range Interpretation Comments SODIUM (BEAKER) (test 137 meq/L 136-145 code = 381) POTASSIUM (BEAKER) 4.3 meq/L 3.5-5.1 (test code = 379) CHLORIDE (BEAKER) 108 meq/L 98-107 H (test code = 382) CO2 (BEAKER) (test 26 meq/L 22-29 code = 355) BLOOD UREA NITROGEN 8 mg/dL 7-21 (BEAKER) (test code = 354) CREATININE (BEAKER) 0.62 mg/dL 0.57-1.25 (test code = 358) GLUCOSE RANDOM 189 mg/dL 70-105 H (BEAKER) (test code = 652) CALCIUM (BEAKER) 8.2 mg/dL 8.4-10.2 L (test code = 697) EGFR (BEAKER) (test INSUFFIC IENT CLINICAL code = 1092) DATA TO CALCULA TE ESTIMATED GFR. [id number] 06:02:00 Test Item Value Reference Range Interpretation Comments PHOSPHORUS (BEAKER) (test code = 3.7 mg/dL 2.3-4.7 604) [id number] 06:02:00 Test Item Value Reference Range Interpretation Comments MAGNESIUM (BEAKER) (test code = 2.0 mg/dL 1.6-2.6 627) PT/[id number] 05:57:00 Test Item Value Reference Range Interpretation Comments PROTIME (BEAKER) (test code = 15.4 seconds 11.9-14.2 H 759) INR (BEAKER) (test code = 370) 1.3 <=5.9 PARTIAL THROMBOPLASTIN TIME 34.0 seconds 22.5-36.0 (BEAKER) (test code = 760) Effective 03/11/2019: PT Reference Range ChangeNew: 11.9-14.2 Previous: 11.7- 14.7RECOMMENDED COUMADIN/WARFARIN INR THERAPY RANGESSTANDARD DOSE: 2.0-3.0 Includes: PROPHYLAXIS for venous thrombosis, systemic embolization; TREATMENT for venous thrombosis and/or pulmonary embolus.HIGH RISK: Target INR is2.5-3.5 for patients wiht mechanical heart valves.Prothrombin time/[id number] 05:56:00 Test Item Value Reference Range Interpretation Comments Protime (test code = 15.4 11.9- 14.2 H 5902-2) seconds INR (test code = 1.3 <=5.9 6301-6) GABRIELA (test code = GABRIELA) Effective 03/11/2019: PT Reference Range ChangeNew: 11.9-14.2 Previous: 11.7-14.7 RECOMMENDED COUMADIN/WARFARIN INR THERAPY RANGESSTANDARD DOSE: 2.0-3.0 Includes: PROPHYLAXIS for venous thrombosis, systemic embolization; TREATMENT for venous thrombosis and/or pulmonary embolus.HIGH RISK: Target INR is 2.5-3.5 for patients wiht mechanical heart valves. Lab Interpretation Abnormal (test code = 39373-9) [facility] HospitalPROTHROMBIN TIME/[id number] 05:56:00 Test Item Value Reference Range Interpretation Comments PROTIME (BEAKER) (test code = 15.4 seconds 11.9-14.2 H 759) INR (BEAKER) (test code = 370) 1.3 <=5.9 Effective 03/11/2019: PT Reference Range ChangeNew: 11.9-14.2 Previous: 11.7- 14.7RECOMMENDED COUMADIN/WARFARIN INR THERAPY RANGESSTANDARD DOSE: 2.0-3.0 Includes: PROPHYLAXIS for venous thrombosis, systemic embolization; TREATMENT for venous thrombosis and/or pulmonary embolus.HIGH RISK: Target INR is2.5-3.5 for patients wiht mechanical heart valves.CBC with platelet count + automated [id number] 05:55:00 Test Item Value Reference Range Interpretation Comments WBC (test code = 6690-2) 11.2 3.5- 10.5 K/L H RBC (test code = 789-8) 2.63 3.93- 5.22 M/L L MCHC (test code = 786-4) 31.8 32.2- 35.5 GM/DL L Hematocrit (test code = 4544-3) 26.7 % 34.1-44.9 L MCV (test code = 787-2) 101.5 fL 79.4-94.8 H MCH (test code = 785-6) 32.3 pg 25.6-32.2 H RDW (test code = 788-0) 18.9 % 11.7-14.4 H Platelets (test code = 777-3) 215 150- 450 K/CU MM MPV (test code = 93742-2) 10.8 fL 9.4-12.3 nRBC (test code = 413) 0 0- 0 /100 WBC % Neutros (test code = 429) 76 % % Lymphs (test code = 430) 14 % % Monos (test code = 431) 6 % % Eos (test code = 432) 3 % % Baso (test code = 437) 0 % # Neutros (test code = 670) 8.53 1.56- 6.13 K/L H # Lymphs (test code = 414) 1.55 1.18- 3.74 K/L # Monos (test code = 415) 0.72 0.24- 0.36 K/L H # Eos (test code = 416) 0.30 0.04- 0.36 K/L # Baso (test code = 417) 0.05 0.01- 0.08 K/L Immature Granulocytes-Relative 0 % 0-1 (test code = 2801) Lab Interpretation (test code = Abnormal 94550-2) [facility] HospitalCalcium, [id number] 05:55:00 Test Item Value Reference Range Interpretation Comments Calcium, Ion (test code = 1994-3) 1.17 mmol/L 1.12-1.27 pH, Blood (test code = 80182-3) 7.38 [facility] HospitalCALCIUM, [id number] 05:55:00 Test Item Value Reference Range Interpretation Comments CALCIUM IONIZED (BEAKER) (test 1.17 mmol/L 1.12-1.27 code = 698) PH, BLOOD (BEAKER) (test code = 7.38 1810) CBC W/PLT COUNT & AUTO [id number] 05:55:00 Test Item Value Reference Range Interpretation Comments WHITE BLOOD CELL COUNT (BEAKER) 11.2 K/ L 3.5-10.5 H (test code = 775) RED BLOOD CELL COUNT (BEAKER) 2.63 M/ L 3.93-5.22 L (test code = 761) HEMOGLOBIN (BEAKER) (test code = 8.5 GM/DL 11.2-15.7 L 410) HEMATOCRIT (BEAKER) (test code = 26.7 % 34.1-44.9 L 411) MEAN CORPUSCULAR VOLUME (BEAKER) 101.5 fL 79.4-94.8 H (test code = 753) MEAN CORPUSCULAR HEMOGLOBIN 32.3 pg 25.6-32.2 H (BEAKER) (test code = 751) MEAN CORPUSCULAR HEMOGLOBIN CONC 31.8 GM/DL 32.2-35.5 L (BEAKER) (test code = 752) RED CELL DISTRIBUTION WIDTH 18.9 % 11.7-14.4 H (BEAKER) (test code = 412) PLATELET COUNT (BEAKER) (test 215 K/CU MM 150-450 code = 756) MEAN PLATELET VOLUME (BEAKER) 10.8 fL 9.4-12.3 (test code = 754) NUCLEATED RED BLOOD CELLS 0 /100 WBC 0-0 (BEAKER) (test code = 413) NEUTROPHILS RELATIVE PERCENT 76 % (BEAKER) (test code = 429) LYMPHOCYTES RELATIVE PERCENT 14 % (BEAKER) (test code = 430) MONOCYTES RELATIVE PERCENT 6 % (BEAKER) (test code = 431) EOSINOPHILS RELATIVE PERCENT 3 % (BEAKER) (test code = 432) BASOPHILS RELATIVE PERCENT 0 % (BEAKER) (test code = 437) NEUTROPHILS ABSOLUTE COUNT 8.53 K/ L 1.56-6.13 H (BEAKER) (test code = 670) LYMPHOCYTES ABSOLUTE COUNT 1.55 K/ L 1.18-3.74 (BEAKER) (test code = 414) MONOCYTES ABSOLUTE COUNT (BEAKER) 0.72 K/ L 0.24-0.36 H (test code = 415) EOSINOPHILS ABSOLUTE COUNT 0.30 K/ L 0.04-0.36 (BEAKER) (test code = 416) BASOPHILS ABSOLUTE COUNT (BEAKER) 0.05 K/ L 0.01-0.08 (test code = 417) IMMATURE GRANULOCYTES-RELATIVE 0 % 0-1 PERCENT (BEAKER) (test code = 2801) Oxygen saturation, [id number] 05:49:00 Test Item Value Reference Range Interpretation Comments O2 Saturation (Measured) (test code = 77.2 % 87097-4) [facility] HospitalOXYGEN SATURATION, [id number] 05:49:00 Test Item Value Reference Range Interpretation Comments O2 SATURATION (MEASURED) (BEAKER) 77.2 % (test code = 1455) RAD, CHEST, 1 VIEW, NON [id number] 05:35:00Reason for exam:->post-op cardiac surgeryShould this be [...] Signed: Ottoniel Brand Verified Date/Time: 07/30/2019 05:35:16 [id number] 18:41:00 Test Item Value Reference Range Interpretation Comments Potassium (test code = 4.2 meq/L 3.5-5.1 2823-3) GABRIELA (test code = GABRIELA) PRN - repeat potassium levels every 1 hour until glucose level is less than 450 mg/dL Lab Interpretation (test Normal code = 36662-4) [facility] 18:41:00 Test Item Value Reference Range Interpretation Comments POTASSIUM (BEAKER) (test code = 4.2 meq/L 3.5-5.1 379) PRN - repeat potassium levels every 1 hour until glucose level is less than 450 mg/dLPOCT-GLUCOSE [id number] 18:14:00 Test Item Value Reference Range Interpretation Comments POC-GLUCOSE METER 175 mg/dL 70-110 H TESTED AT [facility] 6720 (BEAKER) (test code = ERENDIRA MUNGUIA [place] 1538) [address] Blood gas, [id number] 16:57:00 Test Item Value Reference Range Interpretation Comments pH, Arterial (test code = 2744-1) 7.41 7.35-7.45 pCO2, Arterial (test code = 36 35- 45 mmHg 2018-8) pO2, Arterial (test code = 149 80- 90 mmHg H 2703-7) O2 Sat, Arterial (test code = 98.9 % 96-97 H 2708-6) HCO3, Arterial (test code = 23 mmol/L 21-29 1960-4) Base Excess, Arterial (test code -1.8 mmol/L -2-3 = 1925-7) Patient Temperature (test code = 37.2 C 8310-5) FIO2 (test code = 1819) 40 % Lab Interpretation (test code = Abnormal 79033-4) [facility] [id number] 16:57:00 Test Item Value Reference Range Interpretation Comments PH ARTERIAL (BEAKER) (test code = 7.41 7.35-7.45 383) PCO2 ARTERIAL (BEAKER) (test code 36 mmHg 35-45 = 384) PO2 ARTERIAL (BEAKER) (test code 149 mmHg 80-90 H = 385) O2 SATURATION ARTERIAL (BEAKER) 98.9 % 96.0-97.0 H (test code = 386) HCO3 ARTERIAL (BEAKER) (test code 23 mmol/L 21-29 = 388) BASE EXCESS ARTERIAL (BEAKER) -1.8 mmol/L -2.0-3.0 (test code = 387) PATIENT TEMPERATURE (BEAKER) 37.2 C (test code = 1818) FIO2 (BEAKER) (test code = 1819) 40.0 % HEMOGLOBIN [id number] 16:17:00 Test Item Value Reference Range Interpretation Comments HEMOGLOBIN A1C (BEAKER) (test code = 9.5 % 4.3-6.1 H 368) Platelet Aggregation: Function [id number] 15:15:00 Test Item Value Reference Range Interpretation Comments Pathologist: (test Giovanni Tee M.D. code = 2622) (electonic signature) Platelets (test code = 273 150- 450 K/CU MM 2656) ADP (test code = 12 % 62-100 L 58474-0) Platelet Rich Plasma 258 200- 300 k/cu mm (test code = 2134) Plt. Function Screen Pattern of Interpretation (test disaggregation present code = 4655) with ADP which may be characteristic of P2Y12 inhibitor effect. Correlation with medication history is required. GABRIELA (test code = GABRIELA) Platelet Function Screen results may be falsely low with platelet counts<75,000/cu mm. Lab Interpretation Abnormal (test code = 90600-7) [facility]: FUNCTION [id number] 15:15:00 Test Item Value Reference Range Interpretation Comments [id number] Giovanni Tee M.D. ([facility]) (test code = (electonic signature) 2622) PLATELET COUNT AGG 273 K/CU MM 150-450 (BEAKER) (test code = 2656) PLATELET RICH 258 k/cu mm 200-300 PLASMA(BEAKER) (test code = 2134) PLATELET FUNCTION Pattern of SCREEN INTERPRETATION disaggregation present (BEAKER) (test code = with ADP which may be 4655) characteristic of P2Y12 inhibitor effect. Correlation with medication history is required. Platelet Function Screen results may be falsely low with platelet counts<75,000/cu mm.POCT-GLUCOSE [id number] 15:07:00 Test Item Value Reference Range Interpretation Comments POC-GLUCOSE METER 125 mg/dL 70-110 H TESTED AT [facility] 6720 (BEAKER) (test code = [place]ENDIRA [place] 1538) [address] POCT-GLUCOSE [id number] 14:26:00 Test Item Value Reference Range Interpretation Comments POC-GLUCOSE METER 85 mg/dL 70-110 TESTED AT [place] [address] ([facility]) (test code = [place] [address] 1538) POCT-GLUCOSE [id number] 14:14:00 Test Item Value Reference Range Interpretation Comments POC-GLUCOSE METER 88 mg/dL 70-110 TESTED AT [place] [address] ([facility]) (test code = ERENDIRA Guzman [facility] [address] 1538) RAD, CHEST, 1 VIEW, NON [id number] 13:11:00Reason for exam:->Status post CV Surgery post [...] summary, no evidence of postoperative complication. Signed: Pancho Akbar MDReport VerifiedDate/Time: 07/29/2019 13:11:13 Reading Location: [facility] Reading Room POCT-GLUCOSE METER 2019-07-29 13:00:00 Test Item Value Reference Range Interpretation Comments POC-GLUCOSE METER 132 mg/dL 70-110 H TESTED AT [place] [address] ([facility]) (test code = ERENDIRA Guzman [facility] 1538) [address] BASIC METABOLIC [id number] 12:28:00 Test Item Value Reference Range Interpretation Comments SODIUM (BEAKER) (test 136 meq/L 136-145 code = 381) POTASSIUM (BEAKER) 3.8 meq/L 3.5-5.1 (test code = 379) CHLORIDE (BEAKER) 107 meq/L 98-107 (test code = 382) CO2 (BEAKER) (test 22 meq/L 22-29 code = 355) BLOOD UREA NITROGEN 13 mg/dL 7-21 (BEAKER) (test code = 354) CREATININE (BEAKER) 0.70 mg/dL 0.57-1.25 (test code = 358) GLUCOSE RANDOM 173 mg/dL 70-105 H (BEAKER) (test code = 652) CALCIUM (BEAKER) 8.9 mg/dL 8.4-10.2 (test code = 697) EGFR (BEAKER) (test INSUFFIC IENT CLINICAL code = 1092) DATA TO CALCULA TE ESTIMATED GFR. [id number] 12:27:00 Test Item Value Reference Range Interpretation Comments PHOSPHORUS (BEAKER) (test code = 2.3 mg/dL 2.3-4.7 604) [id number] 12:27:00 Test Item Value Reference Range Interpretation Comments MAGNESIUM (BEAKER) (test code = 2.6 mg/dL 1.6-2.6 627) [id number] 12:26:00 Test Item Value Reference Range Interpretation Comments PTT (test code = 38133-5) 27.4 22.5- 36.0 seconds Lab Interpretation (test code = Normal 48880-4) [facility]00 Test Item Value Reference Range Interpretation Comments PARTIAL THROMBOPLASTIN TIME 27.4 seconds 22.5-36.0 (BEAKER) (test code = 760) PROTHROMBIN TIME/[id number] 12:25:00 Test Item Value Reference Range Interpretation Comments PROTIME (BEAKER) (test code = 15.7 seconds 11.9-14.2 H 759) INR (BEAKER) (test code = 370) 1.3 <=5.9 Effective 03/11/2019: PT Reference Range ChangeNew: 11.9-14.2 Previous: 11.7- 14.7RECOMMENDED COUMADIN/WARFARIN INR THERAPY RANGESSTANDARD DOSE: 2.0-3.0 Includes: PROPHYLAXIS for venous thrombosis, systemic embolization; TREATMENT for venous thrombosis and/or pulmonary embolus.HIGH RISK: Target INR is2.5-3.5 for patients wiht mechanical heart valves.Lactic acid, arterial, whole blood 2019-07-29 12:21:00 Test Item Value Reference Range Interpretation Comments Lactate, Art (test code = 2874) 1.2 mmol/L 0.5-2.2 Lab Interpretation (test code = Normal 36871-1) [facility], [id number] 12:21:00 Test Item Value Reference Range Interpretation Comments LACTATE BLOOD ARTERIAL (2) 1.2 mmol/L 0.5-2.2 (BEAKER) (test code = 6354) CBC W/PLT COUNT & AUTO [id number] 12:08:00 Test Item Value Reference Range Interpretation Comments WHITE BLOOD CELL COUNT (BEAKER) 18.4 K/ L 3.5-10.5 H (test code = 775) RED BLOOD CELL COUNT (BEAKER) 2.60 M/ L 3.93-5.22 L (test code = 761) HEMOGLOBIN (BEAKER) (test code = 8.5 GM/DL 11.2-15.7 L 410) HEMATOCRIT (BEAKER) (test code = 26.2 % 34.1-44.9 L 411) MEAN CORPUSCULAR VOLUME (BEAKER) 100.8 fL 79.4-94.8 H (test code = 753) MEAN CORPUSCULAR HEMOGLOBIN 32.7 pg 25.6-32.2 H (BEAKER) (test code = 751) MEAN CORPUSCULAR HEMOGLOBIN CONC 32.4 GM/DL 32.2-35.5 (BEAKER) (test code = 752) RED CELL DISTRIBUTION WIDTH 18.7 % 11.7-14.4 H (BEAKER) (test code = 412) PLATELET COUNT (BEAKER) (test 236 K/CU MM 150-450 code = 756) MEAN PLATELET VOLUME (BEAKER) 10.2 fL 9.4-12.3 (test code = 754) NUCLEATED RED BLOOD CELLS 0 /100 WBC 0-0 (BEAKER) (test code = 413) NEUTROPHILS RELATIVE PERCENT 83 % (BEAKER) (test code = 429) LYMPHOCYTES RELATIVE PERCENT 11 % (BEAKER) (test code = 430) MONOCYTES RELATIVE PERCENT 3 % (BEAKER) (test code = 431) EOSINOPHILS RELATIVE PERCENT 1 % (BEAKER) (test code = 432) BASOPHILS RELATIVE PERCENT 0 % (BEAKER) (test code = 437) NEUTROPHILS ABSOLUTE COUNT 15.32 K/ L 1.56-6.13 H (BEAKER) (test code = 670) LYMPHOCYTES ABSOLUTE COUNT 2.08 K/ L 1.18-3.74 (BEAKER) (test code = 414) MONOCYTES ABSOLUTE COUNT (BEAKER) 0.56 K/ L 0.24-0.36 H (test code = 415) EOSINOPHILS ABSOLUTE COUNT 0.13 K/ L 0.04-0.36 (BEAKER) (test code = 416) BASOPHILS ABSOLUTE COUNT (BEAKER) 0.05 K/ L 0.01-0.08 (test code = 417) IMMATURE GRANULOCYTES-RELATIVE 1 % 0-1 PERCENT (BEAKER) (test code = 2801) CALCIUM, [id number] 12:04:00 Test Item Value Reference Range Interpretation Comments CALCIUM IONIZED (BEAKER) (test 1.15 mmol/L 1.12-1.27 code = 698) PH, BLOOD (BEAKER) (test code = 7.44 1810) BLOOD GAS, [id number] 12:03:00 Test Item Value Reference Range Interpretation Comments PH ARTERIAL (BEAKER) (test code = 7.44 7.35-7.45 383) PCO2 ARTERIAL (BEAKER) (test code 37 mmHg 35-45 = 384) PO2 ARTERIAL (BEAKER) (test code = 105 mmHg 80-90 H 385) O2 SATURATION ARTERIAL (BEAKER) 98.0 % 96.0-97.0 H (test code = 386) HCO3 ARTERIAL (BEAKER) (test code 25 mmol/L 21-29 = 388) BASE EXCESS ARTERIAL (BEAKER) 0.7 mmol/L -2.0-3.0 (test code = 387) PATIENT TEMPERATURE (BEAKER) (test 36.7 C code = 1818) FIO2 (BEAKER) (test code = 1819) 60.0 % OXYGEN SATURATION, [id number] 12:00:00 Test Item Value Reference Range Interpretation Comments O2 SATURATION (MEASURED) (BEAKER) 66.6 % (test code = 1455) For occult [id number] 11:53:00 Test Item Value Reference Range Interpretation Comments PHOSPHORUS (BEAKER) (test code = 2.9 mg/dL 2.3-4.7 604) CALCIUM, [id number] 10:32:00 Test Item Value Reference Range Interpretation Comments CALCIUM IONIZED (BEAKER) (test 1.03 mmol/L 1.12-1.27 L code = 698) PH, BLOOD (BEAKER) (test code = 7.33 1810) HGB/HCT (H&H)-Stat [id number] 10:31:00 Test Item Value Reference Range Interpretation Comments Hemoglobin (test code = 786-4) 8.0 g/dL 12-15 L Hematocrit (test code = 4544-3) 24.0 % 36-45 L Lab Interpretation (test code = Abnormal 03583-7) [facility] [id number] 10:31:00 Test Item Value Reference Range Interpretation Comments Glucose (test code = 2345-7) 226 mg/dL 70-110 H Lab Interpretation (test code = Abnormal 25448-7) [facility] [id number] 10:31:00 Test Item Value Reference Range Interpretation Comments Sodium (test code = 2951-2) 133 meq/L 135-148 L Lab Interpretation (test code = Abnormal 95855-9) [facility], [id number] 10:31:00 Test Item Value Reference Range Interpretation Comments PH ARTERIAL (BEAKER) (test code = 7.35 7.35-7.45 383) PCO2 ARTERIAL (BEAKER) (test code 42 mmHg 35-45 = 384) PO2 ARTERIAL (BEAKER) (test code 254 mmHg 80-90 H = 385) O2 SATURATION ARTERIAL (BEAKER) 99.5 % 96.0-97.0 H (test code = 386) HCO3 ARTERIAL (BEAKER) (test code 23 mmol/L 21-29 = 388) BASE EXCESS ARTERIAL (BEAKER) -2.9 mmol/L -2.0-3.0 L (test code = 387) PATIENT TEMPERATURE (BEAKER) 36.0 C (test code = 1818) FIO2 (BEAKER) (test code = 1819) 100.0 % SODIUM NA-STAT [id number] 10:31:00 Test Item Value Reference Range Interpretation Comments SODIUM (BEAKER) (test code = 381) 133 meq/L 135-148 L GLUCOSE-STAT [id number] 10:31:00 Test Item Value Reference Range Interpretation Comments GLUCOSE RANDOM (BEAKER) (test code 226 mg/dL 70-110 H = 652) HGB/HCT (H&H) - STAT [id number] 10:31:00 Test Item Value Reference Range Interpretation Comments HEMOGLOBIN (BEAKER) (test code = 8.0 g/dL 12.0-15.0 L 410) HEMATOCRIT (BEAKER) (test code = 24.0 % 36.0-45.0 L 411) Potassium-Stat [id number] 10:30:00 Test Item Value Reference Range Interpretation Comments Potassium (test code = 2823-3) 4.2 meq/L 3.6-5.5 Lab Interpretation (test code = Normal 10253-9) [facility] [id number] 10:30:00 Test Item Value Reference Range Interpretation Comments POTASSIUM (BEAKER) (test code = 4.2 meq/L 3.6-5.5 379) BLOOD GAS, [id number] 10:05:00 Test Item Value Reference Range Interpretation Comments PH ARTERIAL (BEAKER) (test code = 7.36 7.35-7.45 383) PCO2 ARTERIAL (BEAKER) (test code 42 mmHg 35-45 = 384) PO2 ARTERIAL (BEAKER) (test code 297 mmHg 80-90 H = 385) O2 SATURATION ARTERIAL (BEAKER) 99.7 % 96.0-97.0 H (test code = 386) HCO3 ARTERIAL (BEAKER) (test code 23 mmol/L 21-29 = 388) BASE EXCESS ARTERIAL (BEAKER) -2.5 mmol/L -2.0-3.0 L (test code = 387) PATIENT TEMPERATURE (BEAKER) 36.7 C (test code = 1818) FIO2 (BEAKER) (test code = 1819) 80.0 % SODIUM NA-STAT [id number] 10:05:00 Test Item Value Reference Range Interpretation Comments SODIUM (BEAKER) (test code = 381) 127 meq/L 135-148 L POTASSIUM-STAT [id number] 10:05:00 Test Item Value Reference Range Interpretation Comments POTASSIUM (BEAKER) (test code = 5.9 meq/L 3.6-5.5 H 379) GLUCOSE-STAT [id number] 10:05:00 Test Item Value Reference Range Interpretation Comments GLUCOSE RANDOM (BEAKER) (test code 241 mg/dL 70-110 H = 652) HGB/HCT (H&H) - STAT [id number] 10:05:00 Test Item Value Reference Range Interpretation Comments HEMOGLOBIN (BEAKER) (test code = 8.0 g/dL 12.0-15.0 L 410) HEMATOCRIT (BEAKER) (test code = 24.0 % 36.0-45.0 L 411) BLOOD GAS, [id number] 09:51:00 Test Item Value Reference Range Interpretation Comments PH ARTERIAL (BEAKER) (test code = 7.34 7.35-7.45 L 383) PCO2 ARTERIAL (BEAKER) (test code 44 mmHg 35-45 = 384) PO2 ARTERIAL (BEAKER) (test code 337 mmHg 80-90 H = 385) O2 SATURATION ARTERIAL (BEAKER) 99.7 % 96.0-97.0 H (test code = 386) HCO3 ARTERIAL (BEAKER) (test code 24 mmol/L 21-29 = 388) BASE EXCESS ARTERIAL (BEAKER) -2.5 mmol/L -2.0-3.0 L (test code = 387) PATIENT TEMPERATURE (BEAKER) 36.0 C (test code = 1818) FIO2 (BEAKER) (test code = 1819) 80.0 % SODIUM NA-STAT [id number] 09:51:00 Test Item Value Reference Range Interpretation Comments SODIUM (BEAKER) (test code = 381) 130 meq/L 135-148 L GLUCOSE-STAT [id number] 09:51:00 Test Item Value Reference Range Interpretation Comments GLUCOSE RANDOM (BEAKER) (test code 249 mg/dL 70-110 H = 652) HGB/HCT (H&H) - STAT [id number] 09:51:00 Test Item Value Reference Range Interpretation Comments HEMOGLOBIN (BEAKER) (test code = 8.1 g/dL 12.0-15.0 L 410) HEMATOCRIT (BEAKER) (test code = 24.0 % 36.0-45.0 L 411) POTASSIUM-STAT [id number] 09:50:00 Test Item Value Reference Range Interpretation Comments POTASSIUM (BEAKER) (test code = 5.4 meq/L 3.6-5.5 379) [id number] 09:45:49Cristobal Hutton MD - 07/29/2019 9:45 AM CDT TEEDate: 07/29/2019 9:46 AM Sex: Male Location: OR Requesting Physician: Juan Gallardo MD Examiner: Cristobal Hutton MD Intubated Sedated Patient screened for esoph disease: Yes Insertion: easy Probe Type: multiplane Modalities: 2D, CFM, CWD and PWD Pre Intervention Summary: Aorta: No aneurysm, no dissection, no mobile plaquesAV: trileaflet morphology, no aortic stenosis, trace aortic regurgitationLV: normal chamber size , no LVH, normal systolic function (EF 64.4% by global longitudinal strain ), no diastolic dysfunction, no RWMA, no thrombusMV: normal morphology, trace mitral regurgitation, no mitral stenosisLA: no LORENZO thrombus, normal size and functionPV: limited visualizationRV: normal sized chamber, normal function, no thrombusTV: normal morphology, trace tricuspid regurgitationRA: no thrombusNo PFO by color dopper flowAll findings communicated to surgical team. Post Intervention Summary: S/p ACB x1Good biventricular functionNo valvular changesNo aortic dissectionNo pericardial effusionCH[facility] BLOOD GAS, [id number] 09:23:00 Test Item Value Reference Range Interpretation Comments PH ARTERIAL (BEAKER) (test code = 7.46 7.35-7.45 H 383) PCO2 ARTERIAL (BEAKER) (test code 39 mmHg 35-45 = 384) PO2 ARTERIAL (BEAKER) (test code = 248 mmHg 80-90 H 385) O2 SATURATION ARTERIAL (BEAKER) 99.6 % 96.0-97.0 H (test code = 386) HCO3 ARTERIAL (BEAKER) (test code 27 mmol/L 21-29 = 388) BASE EXCESS ARTERIAL (BEAKER) 2.9 mmol/L -2.0-3.0 (test code = 387) PATIENT TEMPERATURE (BEAKER) (test 36.0 C code = 1818) FIO2 (BEAKER) (test code = 1819) 100.0 % SODIUM NA-STAT [id number] 09:23:00 Test Item Value Reference Range Interpretation Comments SODIUM (BEAKER) (test code = 381) 132 meq/L 135-148 L GLUCOSE-STAT [id number] 09:23:00 Test Item Value Reference Range Interpretation Comments GLUCOSE RANDOM (BEAKER) (test code 164 mg/dL 70-110 H = 652) CALCIUM, [id number] 09:23:00 Test Item Value Reference Range Interpretation Comments CALCIUM IONIZED (BEAKER) (test 1.05 mmol/L 1.12-1.27 L code = 698) PH, BLOOD (BEAKER) (test code = 7.44 1810) POTASSIUM-STAT [id number] 09:22:00 Test Item Value Reference Range Interpretation Comments POTASSIUM (BEAKER) (test code = 4.0 meq/L 3.6-5.5 379) HGB/HCT (H&H) - STAT [id number] 09:22:00 Test Item Value Reference Range Interpretation Comments HEMOGLOBIN (BEAKER) (test code = 12.2 g/dL 12.0-15.0 410) HEMATOCRIT (BEAKER) (test code = 36.0 % 36.0-45.0 411) RAD, CHEST, 1 VIEW, NON [id number] 07:12:00Reason for exam:->preopShould this be performed at the bedside?->YesFINAL REPORT INDICATION: preop COMPARISON: None TECHNIQUE: Single frontal view of the chest. FINDINGS: Lungs and pleura: Clear lungs. No effusion.Heart and mediastinum: Normal heart size. Unremarkable mediastinal contours.Osseous structures: No acute abnormality.Other: None. IMPRESSION: No acute intrathoracic abnormality. Signed: Deirdre De Jesus MDReport Verified Date/Time: 07/29/2019 07:12:45 ABORH, manual 2019-07-29 07:04:00 Test Item Value Reference Range Interpretation Comments ABO Grouping (test code = 2588) A Rh Factor (test code = 2589) POS [facility] 07:01:00 Test Item Value Reference Range Interpretation Comments PARTIAL THROMBOPLASTIN TIME 31.2 seconds 22.5-36.0 (BEAKER) (test code = 760) Type and screen, [id number] 06:13:00 Test Item Value Reference Range Interpretation Comments ABO/RH AUTOMATED (BEAKER) (test A POSITIVE code = 2260) Ab Scrn (test code = 890-4) NEGATIVE [facility] Jose[facility] METABOLIC [id number] 05:57:00 Test Item Value Reference Range Interpretation Comments SODIUM (BEAKER) (test 138 meq/L 136-145 code = 381) POTASSIUM (BEAKER) 4.0 meq/L 3.5-5.1 (test code = 379) CHLORIDE (BEAKER) 104 meq/L 98-107 (test code = 382) CO2 (BEAKER) (test 29 meq/L 22-29 code = 355) BLOOD UREA NITROGEN 14 mg/dL 7-21 (BEAKER) (test code = 354) CREATININE (BEAKER) 0.79 mg/dL 0.57-1.25 (test code = 358) GLUCOSE RANDOM 171 mg/dL 70-105 H (BEAKER) (test code = 652) CALCIUM (BEAKER) 8.9 mg/dL 8.4-10.2 (test code = 697) EGFR (BEAKER) (test INSUFFIC IENT CLINICAL code = 1092) DATA TO CALCULA TE ESTIMATED GFR. [id number] 05:51:00 Test Item Value Reference Range Interpretation Comments MAGNESIUM (BEAKER) (test code = 1.9 mg/dL 1.6-2.6 627) [id number] 05:35:00 Test Item Value Reference Range Interpretation Comments PROTIME (BEAKER) (test code = 13.5 seconds 11.9-14.2 759) INR (BEAKER) (test code = 370) 1.1 <=5.9 PARTIAL THROMBOPLASTIN TIME 30.4 seconds 22.5-36.0 (BEAKER) (test code = 760) Effective 03/11/2019: PT Reference Range ChangeNew: 11.9-14.2 Previous: 11.7- 14.7RECOMMENDED COUMADIN/WARFARIN INR THERAPY RANGESSTANDARD DOSE: 2.0-3.0 Includes: PROPHYLAXIS for venous thrombosis, systemic embolization; TREATMENT for venous thrombosis and/or pulmonary embolus.HIGH RISK: Target INR is2.5-3.5 for patients wiht mechanical heart valves.PROTHROMBIN [id number] 05:34:00 Test Item Value Reference Range Interpretation Comments PROTIME (BEAKER) (test code = 13.5 seconds 11.9-14.2 759) INR (BEAKER) (test code = 370) 1.1 <=5.9 Effective 03/11/2019: PT Reference Range ChangeNew: 11.9-14.2 Previous: 11.7- 14.7RECOMMENDED COUMADIN/WARFARIN INR THERAPY RANGESSTANDARD DOSE: 2.0-3.0 Includes: PROPHYLAXIS for venous thrombosis, systemic embolization; TREATMENT for venous thrombosis and/or pulmonary embolus.HIGH RISK: Target INR is2.5-3.5 for patients wi mechanical heart valves.CBC W/PLT COUNT & AUTO [id number] 05:24:00 Test Item Value Reference Range Interpretation Comments WHITE BLOOD CELL COUNT (BEAKER) 9.6 K/ L 3.5-10.5 (test code = 775) RED BLOOD CELL COUNT (BEAKER) 3.69 M/ L 3.93-5.22 L (test code = 761) HEMOGLOBIN (BEAKER) (test code = 11.9 GM/DL 11.2-15.7 410) HEMATOCRIT (BEAKER) (test code = 36.6 % 34.1-44.9 411) MEAN CORPUSCULAR VOLUME (BEAKER) 99.2 fL 79.4-94.8 H (test code = 753) MEAN CORPUSCULAR HEMOGLOBIN 32.2 pg 25.6-32.2 (BEAKER) (test code = 751) MEAN CORPUSCULAR HEMOGLOBIN CONC 32.5 GM/DL 32.2-35.5 (BEAKER) (test code = 752) RED CELL DISTRIBUTION WIDTH 19.1 % 11.7-14.4 H (BEAKER) (test code = 412) PLATELET COUNT (BEAKER) (test 262 K/CU MM 150-450 code = 756) MEAN PLATELET VOLUME (BEAKER) 10.1 fL 9.4-12.3 (test code = 754) NUCLEATED RED BLOOD CELLS 0 /100 WBC 0-0 (BEAKER) (test code = 413) NEUTROPHILS RELATIVE PERCENT 58 % (BEAKER) (test code = 429) LYMPHOCYTES RELATIVE PERCENT 28 % (BEAKER) (test code = 430) MONOCYTES RELATIVE PERCENT 9 % (BEAKER) (test code = 431) EOSINOPHILS RELATIVE PERCENT 5 % (BEAKER) (test code = 432) BASOPHILS RELATIVE PERCENT 1 % (BEAKER) (test code = 437) NEUTROPHILS ABSOLUTE COUNT 5.51 K/ L 1.56-6.13 (BEAKER) (test code = 670) LYMPHOCYTES ABSOLUTE COUNT 2.68 K/ L 1.18-3.74 (BEAKER) (test code = 414) MONOCYTES ABSOLUTE COUNT (BEAKER) 0.81 K/ L 0.24-0.36 H (test code = 415) EOSINOPHILS ABSOLUTE COUNT 0.47 K/ L 0.04-0.36 H (BEAKER) (test code = 416) BASOPHILS ABSOLUTE COUNT (BEAKER) 0.07 K/ L 0.01-0.08 (test code = 417) IMMATURE GRANULOCYTES-RELATIVE 0 % 0-1 PERCENT (BEAKER) (test code = 7635)
[2020-03-21] MEDS ORDERED: CEFOXITIN/SWI 2gm 2 GM/20 ML SYR IV ONE (07:45)
[2020-03-21] MEDS ORDERED: NA CHLORIDE 0.9% 1,000 ML ONE (07:50)
[2020-03-21] MEDS ORDERED: BUPIVACA 0.5%/EPI 0.0005%/PF 30 ML VIAL ONE (08:03)
[2020-03-21] MEDS ORDERED: ROCURONIUM 50 MG/5 ML VIAL IV ONE (08:28)
[2020-03-21] MEDS ORDERED: propofoL 200 MG/20 ML VIAL IV ONE (08:28)
[2020-03-21] MEDS ORDERED: FENTANYL CITR 100 MCG/2 ML ONE ×2 (08:28→09:29)
[2020-03-21] MEDS ORDERED: LIDOCAINE 1% MPF 5 ML VIAL ONE (08:29)
[2020-03-21] MEDS ORDERED: GLYCOPYRROLATE 0.2 MG/ML SYR ONE (09:15)
[2020-03-21] MEDS ORDERED: dexAMETHasone 10 MG/ML VIAL ONE (09:16)
[2020-03-21] MEDS ORDERED: KETOROLAC 30 MG/ML INJ ONE (09:16)
[2020-03-21] MEDS ORDERED: NEOSTIGMINE 1 MG/ML -5 ML ONE (09:16)
[2020-03-21] MEDS ORDERED: ONDANSETRON 4 MG/2 ML VIAL ONE ×2 (09:16→10:26)
[2020-03-21] MEDS ORDERED: HYDRALAZINE HCL 20 MG/ML VIAL ONE (09:21)
--- NOTE | 2020-03-21 09:49 | P.OP ---
Preoperative diagnosis: Chronic Cholecystitis with Cholelithiasis Postoperative diagnosis: Chronic Cholecystitis with Cholelithiasis Primary procedure: Laparoscopic Cholecystectomy Anesthesia: GETA + Local Estimated blood loss: <5cc Specimen: Gallbladder Findings: Hepatomegaly, Distended Gallbladder Complications: None Transferred to: Recovery Room Condition: Good
[2020-03-21] MEDS: HYDROMORPHONE HCL 2 MG/ML inj ONE ×2 (10:19→10:27)
[2020-03-21] MEDS ORDERED: HYDROCODONE/APAP 5/325 MG TAB ONE (12:00)
--- NOTE | 2020-03-21 12:15 | OP ---
Date of Procedure: 03/21/2020 Surgeon: Rey Vergara MD, Preoperative Diagnosis: Chronic cholecystitis with cholelithiasis. Postoperative Diagnosis: Chronic cholecystitis with cholelithiasis. Procedure Performed: Laparoscopic cholecystectomy. Anesthesia: General endotracheal with local with 0.5% Marcaine with epinephrine. Estimated Blood Loss: Less than 5 mL. Specimens: Gallbladder hepatic. Findings: 1.Hepatomegaly. 2.Distended gallbladder. Complications: None. Condition: Transferred to recovery room in good condition. Procedure In Detail: After informed was obtained, patient was brought to the operating room, prepped and draped in the usual sterile fashion. After adequate anesthesia was achieved, a supraumbilical a jenny was anesthetized with 0.25% Marcaine, sharply incised. A 5 mm trocar was introduced in the abdom en with no evidence of complication, insufflation 10 mmHg to 15 mmHg at this time. No injury to jemma l structures upon entry the abdomen. On gross inspection the patient had obvious hepatomegaly eviden t in the right upper quadrant. The additional trocar was placed in the epigastrium. This was a 5 mm trocar placed under direct visualization with no evidence of complication. The umbilical trocar was then up-sized to a 12 mm under direct visualization without evidence of complication. Additional tr ocar was placed in the right upper quadrant. This was similarly anesthetized and sharply incised. A 5 mm trocar was introduced in the abdomen without evidence of complication. The patient was positio akshat head up right-side up position. Retrogastric used to grasp the patient's gallbladder, removed th e omentum on the anterior surface of the gallbladder which was found to be firm and fibrous. Using c ombination of electrocautery and blunt dissection, the dissection continued down to the [facility] where the critical view of safety was obtained identifying only 2 structures entering the gallbladd er with the liver visualized in the posterior window. This was encircled and skeletonized. These 2 structures were identified as both cystic duct and cystic artery. They were doubly ligated on the pr oximal side and singly on the distal side with titanium clips and then they were ligated using Endo S hears. Dissection continued down to take the gallbladder off the hepatic fossa proximally 70% of the gallbladder bed. An additional feeding vessel was found from the liver. This was also clipped on t he proximal distal side and cut with Endo Iza. The gallbladder was removed from the hepatic fossa without evidence of complication. Placed in the EndoCatch bag and removed the umbilical trocar. Th e abdomen was then re-insufflated at this point and the area was copiously irrigated multiple times a nd suctioned out completely clear. Patient was positioned in neutral position. There was no need fo r additional hemostatic maneuvers. Clips were found to be in good anatomic position without any evid ence of spillage of bile. The umbilical trocar site was then inspected. The umbilical trocar was re moved. The umbilical trocar site was closed using a Chinedu-Sandi suture passer with 0 Vicryl in i nterrupted fashion. Good approximation of tissues. Abdomen was then completely desufflated under di rect visualization without evidence of complication. All skin incisions were then copiously irrigate d and closed with a 4-0 Monocryl in a running fashion. Dermabond placed over top. Patient tolerated the procedure without evidence of complication and transferred to PACU in good condition. All count s were correct at the end of the case. KEREN/RIANNA Voice ID: [id number] Report ID: [id number]
[2020-03-21 12:59] VITALS: BP 159/46; TEMP 97.3; O2SAT 98
== END 2020-03-21 12:25 | disposition home or self-care (01) ==
LOC: OR 07:08
PROVIDERS: ATTEND Surgery
PROC: 0FT44ZZ Resection of Gallbladder, Percutaneous Endoscopic Approach (ICD-10-PCS; principal; 2020-03-21 08:30)
DX: K80.12 Calculus of gallbladder with acute and chronic cholecystitis without obstruction (principal); Z11.59 Encounter for screening for other viral diseases; E11.9 Type 2 diabetes mellitus without complications; I10 Essential (primary) hypertension; I25.10 Atherosclerotic heart disease of native coronary artery without angina pectoris; I25.2 Old myocardial infarction; Z95.1 Presence of aortocoronary bypass graft; Z79.82 Long term (current) use of aspirin; Z79.02 Long term (current) use of antithrombotics/antiplatelets; Z82.49 Family history of ischemic heart disease and other diseases of the circulatory system; Z80.42 Family history of malignant neoplasm of prostate
CPT/HCPCS: 36415; 86900; 86850; 85610; 86901; 82947 ×2; 88304; 85730; 47562; J0360; J2704; J1170; J3010 ×2; J1100; J2710; J0694; J7030; J2405

== ENCOUNTER 2020-05-31 14:47 | Emergency (ER) | payer OTHER ==
--- OUTSIDE RECORDS SUMMARY | 2020-05-31 15:16 | XMS REPORT | Clinical Summary ---
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 after 05/31/2019 Results RHYTHM STRIP - SCAN (08/06/2019 9:50 [...] included. WBC 10.3 3.5 - 10.5 K/L [facility] RBC 2.72 (L) 3.93 - 5.22 M/L [facility] Hemoglobin 9.0 (L) 11.2 - 15.7 GM/DL [facility] Hematocrit 29.0 (L) 34.1 - 44.9 % [facility] MCV 106.6 (H) 79.4 - 94.8 fL [facility] MCH 33.1 (H) 25.6 - 32.2 pg [facility] MCHC 31.0 (L) 32.2 - 35.5 GM/DL [facility] RDW 19.7 (H) 11.7 - 14.4 % [facility] Platelets 343 150 - 450 K/CU MM [facility] MPV 9.9 9.4 - 12.3 fL [facility] nRBC 0 0 - 0 /100 WBC [facility] Specimen Blood Performing Organization Address City/State/Zipcode Phone Number [facility] [address] [place] [address] [place] Basic Metabolic Panel (08/04/2019 5:33 AM CDT)Only the most recent of8 results within the time period is included. Sodium 139 136 - 145 meq/L [facility] Potassium 4.0 3.5 - 5.1 meq/L [facility] Chloride 105 98 - 107 meq/L [facility] CO2 30 (H) 22 - 29 meq/L [facility] BUN 8 7 - 21 mg/dL [facility] Creatinine 0.64 0.57 - 1.25 mg/dL [facility] Glucose 116 (H) 70 - 105 mg/dL [facility] Calcium 8.7 8.4 - 10.2 mg/dL [facility] EGFR Comment: INSUFFICIENT CLINICAL C [facility] DATA TO CALCULATE ESTIMATED [facility] GFR. Specimen Blood Performing Organization Address City/State/Zipcode Phone Number [facility] [address] [place] [address] [place] ECHOCARDIOGRAM REPORT - SCAN (08/03/2019 9:21 PM CDT) Narrative Performed At This result has an attachment that is no t available. POC-Glucose meter (08/03/2019 9:12 PM CDT)Only the most recent of21 results within the time period is included. POC-Glucose Meter 138 (H)Comment: TESTED AT 70 - 110 mg/dL [facility] [address] [place] [address] Specimen Blood Performing Organization Address City/[facility] Phone Number [address] [address] CENTER Magnesium (08/03/2019 5:01 AM CDT)Only the most recent of7 resultswithin the time period is included. Magnesium 1.8 1.6 - 2.6 mg/dL [facility] Specimen Blood Performing Organization Address [facility] Phone Number [address] [address] C[place] 2D Echo W/Doppler(CW/PW/Color) (08/02/2019 9:46 PM CDT) Ejection Fraction [facility] E[facility] HEAR [facility] Specimen Narrative Performed At Transthoracic Echocardiography Report (T TE) [facility] ECHO HEARTLAB [facility] Demographics Patient Name LEONARD, CONSUELODate of Study 08/02/2019 [id number] GenderFem karoline Visit Number [id number] RaceUnkn own [id number] m Number [id number] Number Date of Birth1950 Referring Physician Gurwinder Edouard Age69 year(s) 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 [place] alexandra RDCS, RVT Cyndi Arias,Letty Beal [...] of Study 08/02/2019 Gender Female Visit Number [id number] Race Unknown Room [place] [id number] Number Date of 1950 Referri Physician Gurwinder Peggy Javan Age 69 year(s) Sonogra horace Mina [facility], RVT Internal Communications Manager Yahaira Arias, Interpr eting Jann Beal MD [...] TR Gradient: 27.18 mmHg Performing Organization Address City/[facility] Phone Number [facility] E[facility] HEARTLAB MK[facility]ON [facility] ECG 12 lead (08/02/2019 6:01 AM CDT)Only the most recent of2 resultswithin the time period is included. Specimen Narrative Performed At Ventricular Rate 66 BPM GE MUSE Atrial Rate 66 BPM P-R Interval 160 ms QRS Duration 80 ms Q-T Interval 420 ms QTC Calculation(Bazett) 440 ms P [place] 36 degrees R [place] 40 degrees T [place] 32 degrees Sinus rhythm with occasional Premature [...] 420 ms QTC Calculation(Bazett) 440 ms P [place] 36 degrees R [place] 40 degrees T [place] 32 degrees Sinus rhythm with occasional Premature v entricular complexes Otherwise normal ECG When compared with ECG of 29-JUL-2019 05 :32, ST-T changes are no longer present. Confirmed by Daksha OLVERA MICHAEL ([id number]) on 08/03/2019 8:08:11 AM Performing Organization Address City/[facility] Phone Number [employer] Phosphorus (08/02/2019 4:49 AM CDT)Only the most recent of6 resultswithin the time period is included. Phosphorus 2.5 2.3 - 4.7 mg/dL [facility] Specimen Blood Performing Organization Address City/State/Zipcode Phone Number [facility] [address] [place] [address] CENTER Hemoglobin A1c (08/01/2019 5:04 AM CDT)Only the most recent of2 resultswithin the time period is included. Hemoglobin A1C 8.6 (H) 4.3 - 6.1 % [facility] Specimen Blood Performing Organization Address City/State/Zipcode Phone Number [facility] [address] [place] [address] CENTER TRANSFUSION SERVICE REPORT - SCAN (07/31/2019 [...] MD Report Verified Date/Time:07/31/2019 07:56:15 Reading Location: [facility] Reading Room Procedure Note Interface, External Ris [...] Verified Date/Time: 07/31/2019 0 7:56:15 Reading Location: [facility] Reading Room Performing Organization Address City/State/Zipcode Phone Number GE RIS PT/aPTT (07/31/2019 6:30 AM CDT)Only the most recent of3 resultswithin the time period is included. Protime 14.5 (H) 11.9 - 14.2 seconds [facility] INR 1.2 <=5.9 [facility] PTT 33.1 22.5 - 36.0 seconds [facility] Specimen Blood Narrative Performed At Effective 03/11/2019: PT Reference Range [facility] Change New: 11.9-14.2Previous: 11.7-14.7 RECOMMENDED COUMADIN/WARFARIN INR THERAPY RANGES STANDARD DOSE: 2.0-3.0Includes: PROPHYLAXIS for venous thrombosis, systemic embolization; TREATMENT for venous thrombosis and/or pulmonary embolus. HIGH RISK: Target INR is 2.5-3.5 for patients wiht mechanical heart valves. Performing Organization Address City/[facility] Phone Number [address] [address] CENTER Prepare PLT (07/30/2019 11:54 PM CDT) Unit ABO O Pos SAFETRACE TX UNIT NUMBER [id number] SAFETRACE TX Status TX_TIMEINCHART SAFETRACE TX Blood Bank Product PLATELETS SAFETRACE TX PRODUCT CODE [id number] SAFETRACE TX Unit ABO B Pos SAFETRACE TX UNIT NUMBER [id number] SAFETRACE TX Status TX_TIMEINCHART SAFETRACE TX Blood Bank Product PLATELETS SAFETRACE TX PRODUCT CODE [id number] SAFETRACE TX Performing Organization Address City[facility] Phone Number SAFETRACE TX Oxygen saturation, measured (07/30/2019 5:03 AM CDT)Only the most recent of2 resultswithin the time period is included. O2 Saturation (Measured) 77.2 % [facility] Specimen Blood Performing Organization Address City/State/Zipcode Phone Number [facility] [address] [place] [address] CENTER Calcium, Ionized (07/30/2019 5:03 AM CDT)Only the most recent of4 resultswithin the time period is included. Calcium, Ion 1.17 1.12 - 1.27 mmol/L [facility] pH, Blood 7.38 [facility] Specimen Blood Performing Organization Address City/State/Zipcode Phone Number [facility] [address] [place] [address] CENTER CBC with platelet count + automated diff (07/30/2019 5:03 AM CDT)Only the most recent of3 resultswithin the time period is included. WBC 11.2 (H) 3.5 - 10.5 K/L [facility] RBC 2.63 (L) 3.93 - 5.22 M/L [facility] Hemoglobin 8.5 (L) 11.2 - 15.7 GM/DL [facility] Hematocrit 26.7 (L) 34.1 - 44.9 % [facility] MCV 101.5 (H) 79.4 - 94.8 fL [facility] MCH 32.3 (H) 25.6 - 32.2 pg [facility] MCHC 31.8 (L) 32.2 - 35.5 GM/DL [facility] RDW 18.9 (H) 11.7 - 14.4 % [facility] Platelets 215 150 - 450 K/CU MM [facility] MPV 10.8 9.4 - 12.3 fL [facility] nRBC 0 0 - 0 /100 WBC [facility] % Neutros 76 % [facility] % Lymphs 14 % [facility] % Monos 6 % [facility] % Eos 3 % [facility] % Baso 0 % [facility] # Neutros 8.53 (H) 1.56 - 6.13 K/L [facility] # Lymphs 1.55 1.18 - 3.74 K/L [facility] # Monos 0.72 (H) 0.24 - 0.36 K/L [facility] # Eos 0.30 0.04 - 0.36 K/L [facility] # Baso 0.05 0.01 - 0.08 K/L [facility] Immature 0 0 - 1 % [facility] Granulocytes-Relative [facility] Specimen Blood Performing Organization Address City/State/Zipcode Phone Number [facility] [address] [place] [address] CENTER Prothrombin time/INR (07/30/2019 5:03 AM CDT)Only the most recent of3 results within the time period is included. Protime 15.4 (H) 11.9 - 14.2 seconds [facility] INR 1.3 <=5.9 [facility] Specimen Blood Narrative Performed At Effective 03/11/2019: PT Reference Range [facility] Change New: 11.9-14.2Previous: 11.7-14.7 RECOMMENDED COUMADIN/WARFARIN INR THERAPY RANGES STANDARD DOSE: 2.0-3.0Includes: PROPHYLAXIS for venous thrombosis, systemic embolization; TREATMENT for venous thrombosis and/or pulmonary embolus. HIGH RISK: Target INR is 2.5-3.5 for patients wiht mechanical heart valves. Performing Organization Address City/[facility] Phone Number [address] [address] [place] Potassium (07/29/2019 6:00 PM CDT) Potassium 4.2 3.5 - 5.1 meq/L [facility] Specimen Blood Narrative Performed At PRN - repeat potassium levels every 1 hour [facility] until glucose level is less than 450 mg/dL Performing Organization Address [facility] Phone Number [address] [address] [place] Blood gas, arterial (07/29/2019 4:51 PM CDT)Only the most recent of6 results within the time period is included. pH, Arterial 7.41 7.35 - 7.45 [facility] pCO2, Arterial 36 35 - 45 mmHg [facility] pO2, Arterial 149 (H) 80 - 90 mmHg [facility] O2 Sat, Arterial 98.9 (H) 96.0 - 97.0 % [facility] HCO3, Arterial 23 21 - 29 mmol/L [facility] Base Excess, Arterial -1.8 -2.0 - 3.0 mmol/L [facility] Patient Temperature 37.2 C [facility] FIO2 40.0 % [facility] Specimen Blood, Arterial Performing Organization Address City[facility] Phone Number [address] [address] [place] Lactic acid, arterial, whole blood (07/29/2019 11:52 AM CDT) Lactate, Art 1.2 0.5 - 2.2 mmol/L [facility] Specimen Blood, Arterial Performing Organization Address City/[facility]/Zipcode Phone Number [address] [phone] CENTER aPTT (07/29/2019 11:51 AM CDT)Only the most recent of2 resultswithin the time period is included. PTT 27.4 22.5 - 36.0 seconds [facility] Specimen Blood Performing Organization Address [facility] Phone Number [address] [address] CENTER Prepare RBC (07/29/2019 11:43 AM CDT) CROSSMATCH COMPATIBLE SAFETRACE TX Unit ABO A Pos SAFETRACE TX UNIT NUMBER [id number] SAFETRACE TX Status RETURNED FROM ISSUE SAFETRACE TX Blood Bank Product RED BLOOD CELLS SAFETRACE TX PRODUCT CODE [id number] SAFETRACE TX CROSSMATCH COMPATIBLE SAFETRACE TX Unit ABO A Pos SAFETRACE TX UNIT NUMBER [id number] SAFETRACE TX Status RETURNED FROM ISSUE SAFETRACE TX Blood Bank Product RED BLOOD CELLS SAFETRACE TX PRODUCT CODE [id number] SAFETRACE TX Performing Organization Address [facility] Phone Number SAFETRACE TX POC ACTIVATED CLOTTING TIME (07/29/2019 10:27 AM CDT)Only the most recent of3 resultswithin the time period is included. Activated Clotting Time 109Comment: Reference sec [facility] Range: 74-137 seconds, MEDICAL CENTER Baseline/TESTED AT [address] [id number] Specimen Blood Performing Organization Address [facility] Phone Number [address] [address] CENTER Potassium-Stat Lab (07/29/2019 10:25 AM CDT)Only the most recent of4 results within the time period is included. Potassium 4.2 3.6 - 5.5 meq/L [facility] Specimen Blood, Arterial Performing Organization Address [facility] Phone Number [address] [phone] [place] Sodium Na-Stat Lab (07/29/2019 10:25 AM CDT)Only the most recent of4 results within the time period is included. Sodium 133 (L) 135 - 148 meq/L [facility] Specimen Blood, Arterial Performing Organization Address [facility] Phone Number [address] [address] [place] Glucose-Stat Lab (07/29/2019 10:25 AM CDT)Only the most recent of4 resultswithin the time period is included. Glucose 226 (H) 70 - 110 mg/dL [facility] Specimen Blood, Arterial Performing Organization Address [facility] Phone Number [address] [address] [place] HGB/HCT (H&H)-Stat Lab (07/29/2019 10:25 AM CDT)Only the most recent of4 resultswithin the time period is included. Hemoglobin 8.0 (L) 12.0 - 15.0 g/dL [facility] Hematocrit 24.0 (L) 36.0 - 45.0 % [facility] Specimen Blood, Arterial Performing Organization Address [facility] Phone Number [address] [address] [place] Transfuse Leuko-Red PLT (07/29/2019 10:14 AM CDT)LAKSHMI [...] 6:44 AM CDT) Pathologist: Giovanni Tee M.D. [facility] (electonic [facility]) [facility] Platelets 273 150 - 450 K/CU [facility] ADP 12 (L) 62 - 100 % [facility] Platelet Rich Plasma 258 200 - 300 k/cu [facility] Plt. Function Screen Pattern of disaggregation C [facility] ZAIDA Interpretation present with ADP which [facility] may be characteristic of CENTER P2Y12 inhibitor effect. Correlation with medication history is required. Specimen Blood Narrative Performed At Platelet Function Screen results may be [facility] falsely low with platelet counts <75,000/cu mm. Performing Organization Address City/State/Zipcode Phone Number [facility] [address] [place] [address] CENTER ABORH, manual (07/29/2019 6:44 AM CDT) ABO Grouping A [facility] Rh Factor POS [facility] Specimen Blood Performing Organization Address City/[facility] Phone Number [facility] [address] [place] [address] Type and screen, automated (07/29/2019 5:08 AM CDT) ABO/RH AUTOMATED (BEAKER) A POSITIVE [facility] Ab Scrn NEGATIVE [facility] Specimen Blood Performing Organization Address [facility] Phone Number [address] [address] after 05/31/2019 Insurance Payer Benefit Plan / Group Subscriber ID Type Phone A ddress [employer] ALL xxxxxxxxx Maps Contracted [id number] Advance Directives For more information, please contact:[address] [phone] Code Status Date Activated Date Inactivated Comments Full Code 07/28/2019 8:31 PM 08/04/2019 5:22 PM This code status was determined by: Patient
--- OUTSIDE RECORDS SUMMARY | 2020-05-31 15:17 | XMS REPORT | Continuity of Care Document ---
:1950 Author Organization [facility] t Address [address] [place] [address] Care Team Providers Name Role Phone Kenton GARCIA, Helean Guzman Attending Clinician Unavailable Paulina KENNY, Lia Attending Clinician Altagracia Avendano MD Attending Clinician Duane Austin Attending Clinician Unavailable ALTAGRACIA AVENDANO Attending Clinician Unavailable ALTAGRACIA AVENDANO Admitting Clinician Unavailable Payers Payer Name Policy Type Policy Number Effective Expiration Source Date Date TEXANPLUSTEXANPLUS O [facility] Condition Condition Condition Status Onset Resolution Last Treating Co mments Source Name Details Category Date Date Treatment Clinician Date S/P CABG x S/P CABG x Disease Active 2018-[address] 1 by 1 by 016 Reji Gallardo on [facility] on 00:00: Me dical 07/29/2019 07/29/2019 00 Ce ntgwendolyn Coronary Coronary Disease [facility] - disease disease 00[facility]00: Medical Center Acute Acute Disease Active [facility] respirator respirator kes - y y Medical insufficie insufficie Ce nter ncy ncy Acute Acute Disease Active [facility] blood loss blood loss [facility] anemia anemia [facility] Hyperglyce Hyperglyce Disease Active C [facility] Allergies, Adverse Reactions, Alerts This patient has no known allergies or adverse reactions. Family History Family Member Diagnosis Comments Start Date Stop Date Source Natural brother Heart disease [facility] Natural father Diabetes [facility] Natural father Heart disease [facility] Natural mother Diabetes [facility] Natural mother Heart disease [facility] Social History Social Habit Start Date Stop Date Quantity Comments Source History SDOH Alcohol [facility] Std Drinks [facility] History SDOH Alcohol [facility] Binge [facility] Sex Assigned At [facility] History SDOH Alcohol 2019-07-28 2019-07-28 1 [facility] - Frequency 00:00:00 00:00:00 [facility] Center Smoking Status Start Date Stop Date Source [facility] sm[facility] Medications Ordered Filled Start Stop Current Ordering [...] mouth [facility] - tablet 20:04: daily. Medical [address] [place] [address] atorvastati 2018-10 Yes 40mg QD Take [address] [facility] (LIPITOR) 0-15 by mouth Luke s - 40 MG 20:04: daily. Medical tablet [address] [place] [address] losartan 2018-10 Yes 25mg QD Take [address] (COZAAR) 25 0-15 by mouth Luke s - MG tablet 20:04: daily. Medica l [address] [place] [address] lisinopril Yes 20mg QD Take [address] (PRINIVIL,Z 6-24 by mouth Luke s - ESTRIL) 20 00:00: daily. Medic al MG tablet 00 Center Vital Signs Vital Name Observation Time Observation Value Comments Source Systolic blood 2019-08-12 09:59:00 120 mm[Hg] [facility] Diastolic blood 2019-08-12 09:59:00 59 mm[Hg] [facility] S t [facility] Heart rate 2019-08-12 09:59:00 60 /min [facility] Body temperature 2019-08-12 09:59:00 36.44 [place] [facility] Respiratory rate 2019-08-12 09:59:00 18 /min [facility] Body height 2019-08-12 09:59:00 154.9 cm [facility] Body weight Measured 2019-08-12 09:59:00 74.39 kg [facility] BMI 2019-08-12 09:59:00 30.99 kg/m2 [facility] Oxygen saturation in 2019-08-12 09:59:00 98 /min [facility] Arterial blood by Medical Ce nter Pulse oximetry Procedures Procedure Date / Time Performing Clinician Source Performed RHYTHM STRIP - SCAN 2019-08-06 09:50:35 Provider, Default [facility] RHYTHM STRIP - SCAN 2019-08-05 10:30:18 Provider, Default [facility] VASCULAR DIAGRAM -SCAN 2019-08-05 10:30:15 Provider, Default [facility] BASIC METABOLIC PANEL (7) 2019-08-04 05:33:00 Romana, Varsha antunez [facility] CBC (HEMOGRAM ONLY) 2019-08-04 05:33:00 Romana, Varsha Frias [facility] ECHOCARDIOGRAM REPORT - 2019-08-03 21:21:16 Provider, Default [facility] POCT-GLUCOSE METER 2019-08-03 21:12:00 Romana, Varsha Lópezjohnnietulio [facility] POCT-GLUCOSE METER 2019-08-03 17:36:00 Romana, Varsha Frias [facility] RHYTHM STRIP - SCAN 2019-08-03 10:23:19 Provider, Default [facility] BASIC METABOLIC PANEL (7) 2019-08-03 05:01:00 Romana Varsha Lópezjohnnie tulio [facility] MAGNESIUM 2019-08-03 05:01:00 Romana, Varsha Frias [facility] CBC (HEMOGRAM ONLY) 2019-08-03 05:01:00 Romana, Varsha Frias [facility] POCT-GLUCOSE METER 2019-08-02 22:44:00 Romana, Varsha Frias [facility] 2D ECHO W/ DOPPLER 2019-08-02 21:46:21 Gurwinder Summers [facility] (CW/PW/COLOR) [facility] POCT-GLUCOSE METER 2019-08-02 12:34:00 Romana, Varsha Frias [facility] ECG 12-LEAD 2019-08-02 06:01:55 Unknown, Hl7 Doctor [facility] BASIC METABOLIC PANEL (7) 2019-08-02 04:49:00 Romana Varsha Lópezjohnnie a [facility] MAGNESIUM 2019-08-02 04:49:00 Romana, Varsha Frias [facility] CBC (HEMOGRAM ONLY) 2019-08-02 04:49:00 RomanaVarsha laws [facility] PHOSPHORUS 2019-08-02 04:49:00 Romana, Varsha Frias [facility] POCT-GLUCOSE METER 2019-08-01 20:21:00 Romana, Varsha jon [facility] POCT-GLUCOSE METER 2019-08-01 17:36:00 Romana, Varsha jon [facility] POCT-GLUCOSE METER 2019-08-01 07:49:00 Romana, Varsha Frias [facility] BASIC METABOLIC PANEL (7) 2019-08-01 05:04:00 Romana Varsha Nora antunez [facility] MAGNESIUM 2019-08-01 05:04:00 Romana, Varsha Frias [facility] PHOSPHORUS 2019-08-01 05:04:00 [facility] 2019-08-01 05:04:00 Romana, Varsha jon [facility] HEMOGLOBIN A1C 2019-08-01 05:04:00 [facility] POCT-GLUCOSE METER 2019-07-31 21:40:00 Romana, Varsha jon [facility] POCT-GLUCOSE METER 2019-07-31 18:29:00 Romana [facility] TRANSFUSION SERVICE REPORT 2019-07-31 18:00:47 Provider, Default [facility] - - SCAN Scanning [facility] POCT-GLUCOSE METER 2019-07-31 12:12:00 [facility]SE METER 2019-07-31 07:54:00 Romana, [facility] XR CHEST 1 VIEW 2019-07-31 07:38:00 Filemon Burroughs [facility] PT/APTT 2019-07-31 06:30:00 Brandon Lopez [facility] BASIC METABOLIC PANEL (7) 2019-07-31 06:30:00 Gal Lopezmalinda hong [facility] MAGNESIUM 2019-07-31 06:30:00 Gal Lopezhan [facility] PHOSPHORUS 2019-07-31 06:30:00 John [facility] CBC (HEMOGRAM ONLY) 2019-07-31 06:30:00 John Gal [facility] PREPARE PLATELETS 2019-07-30 23:54:00 Juan Gallardo [facility] POCT-GLUCOSE METER 2019-07-30 21:18:00 Romana [facility] POCT-GLUCOSE METER 2019-07-30 17:48:00 Romana, [facility] TRANSFUSION SERVICE REPORT 2019-07-30 17:45:05 Provider, [facility] TRANSFUSION SERVICE REPORT 2019-07-30 17:45:00 Provider, [facility] POCT-GLUCOSE METER 2019-07-30 12:50:00 Romana [facility] POCT-GLUCOSE METER 2019-07-30 09:13:00 Romana [facility] BASIC METABOLIC PANEL (7) 2019-07-30 05:03:00 Brandon Lopez [facility] MAGNESIUM 2019-07-30 05:03:00 John [facility] PT/APTT 2019-07-30 05:03:00 John Toalberta [facility] PROTHROMBIN TIME/INR 2019-07-30 05:03:00 Brandon Lopez [facility] PHOSPHORUS 2019-07-30 05:03:00 John [facility] CALCIUM, IONIZED 2019-07-30 05:03:[address] Ig[address] [facility] OXYGEN SATURATION, 2019-07-30 05:03:00 Iginiamre [facility] CBC W/PLT COUNT & AUTO 2019-07-30 05:03:00 FelisaBrandon valenzuela [facility] XR CHEST 1 VIEW 2019-07-30 03:57:00 Filemon Burroughs [facility] PORTABLE/BEDSIDE [facility] POCT-GLUCOSE METER 2019-07-30 01:43:00 [facility] POCT-GLUCOSE METER 2019-07-29 18:10:00 Romana, [facility] POTASSIUM 2019-07-29 18:00:00 Filemon Burroughs [facility] BLOOD GAS, ARTERIAL 2019-07-29 16:51:00 Kory Walker [facility] POCT-GLUCOSE METER 2019-07-29 15:06:00 Romana, [facility] POCT-GLUCOSE METER 2019-07-29 14:24:00 Romana, [facility] POCT-GLUCOSE METER 2019-07-29 14:10:00 Romana, [facility] XR CHEST 1 VIEW 2019-07-29 12:59:00 Gal Lopez [facility]/BEDSIDE [facility] POCT-GLUCOSE METER 2019-07-29 12:56:00 Romana, [facility] LACTIC ACID, ARTERIAL 2019-07-29 11:52:00 Filemon Burroughs [facility] CALCIUM, IONIZED 2019-07-29 11:52:00 Filemon Burroughs [facility] APTT 2019-07-29 11:51:00 Filemon Burroughs [facility] PROTHROMBIN TIME/INR 2019-07-29 11:51:00 Filemon Burroughs [facility] OXYGEN SATURATION, 2019-07-29 11:43:[address] [facility] PREPARE RBC 2019-07-29 11:43:00 Juan Gallardo [facility] BASIC METABOLIC PANEL (7) 2019-07-29 11:38:00 LopezGal [facility] BLOOD GAS, ARTERIAL 2019-07-29 11:38:00 Gal Lopez [facility] MAGNESIUM 2019-07-29 11:38:00 Gal Lopez [facility] PHOSPHORUS 2019-07-29 11:38:00 Filemon Burroughs [facility] CBC W/PLT COUNT & AUTO 2019-07-29 11:38:00 [facility] PO[facility]-ACT 2019-07-29 10:27:00 RomanaVarsha jon [facility] CALCIUM, IONIZED 2019-07-29 10:25:35 [facility]LOOD [facility] ARTERIAL 2019-07-29 10:25:[facility]-STAT [facility] 2019-07-29 10:25:35 [facility] POTASSIUM-STAT LAB 2019-07-29 10:25:35 [facility] GLUCOSE-STAT LAB 2019-07-29 10:25:35 [facility] HGB/HCT (H&H) - STAT LAB 2019-07-29 10:25:35 [facility] TRANSFUSE LEUKO-REDUCED 2019-07-29 10:14:04 [facility] TRANSFUSE LEUKO-REDUCED 2019-07-29 10:02:42 [facility] POCT-ACT 2019-07-29 09:58:00 RomanaVarsha laws [facility] BLOOD GAS, ARTERIAL 2019-07-29 09:57:[address] [facility] SODIUM NA-STAT LAB 2019-07-29 09:57:29 Paulina [facility] POTASSIUM-STAT LAB 2019-07-29 09:57:29 Juan Gallardo [facility] GLUCOSE-STAT LAB 2019-07-29 09:57:29 Juan Gallardo [facility] HGB/HCT (H&H) - STAT LAB 2019-07-29 09:57:29 Juan Gallardo [facility] BLOOD GAS, ARTERIAL 2019-07-29 09:47:[address] [facility] SODIUM NA-STAT LAB 2019-07-29 09:47:25 Juan Gallardo [facility] POTASSIUM-STAT LAB 2019-07-29 09:47:25 Juan Gallardo [facility] GLUCOSE-STAT LAB 2019-07-29 09:47:25 Juan Gallardo [facility] HGB/HCT (H&H) - STAT LAB 2019-07-29 09:47:25 Juan Gallardo [facility] ANESTHESIA LAKSHMI 2019-07-29 09:45:49 [facility] POCT-ACT 2019-07-29 09:32:00 Varsha Avendano Hyunna [facility] CALCIUM, IONIZED 2019-07-29 08:50:41 [facility] BLOOD GAS, ARTERIAL 2019-07-29 08:50:41 [facility] SODIUM NA-STAT LAB 2019-07-29 08:50:41 [facility] POTASSIUM-STAT LAB 2019-07-29 08:50:41 [facility] GLUCOSE-STAT LAB 2019-07-29 08:50:41 [facility] H[facility] (H&H) - STAT LAB 2019-07-29 08:50:41 [facility] BYPASS,AORTO CORONARY 2019-07-29 08:00:00 PaulinaJuan galindo [facility] HEMOGLOBIN A1C 2019-07-29 06:44:00 Rosario Tolliver [facility] APTT 2019-07-29 06:44:00 Dax Seaman [facility] PLATELET AGGREGATION: 2019-07-29 06:44:00 Dax Seaman [facility] FUNCTION SCREEN [facility] ABORH, MANUAL 2019-07-29 06:44:00 Marilyn Knutson [facility] XR CHEST 1 VIEW 2019-07-29 06:15:00 Juan Gallardo [facility] - PORTABLE/BEDSIDE [facility] ECG 12-LEAD 2019-07-29 05:32:12 Dax Seaman Rosario [facility] CBC W/PLT COUNT & AUTO 2019-07-29 05:09:00 Brandon Lopez [facility] BASIC METABOLIC PANEL (7) 2019-07-29 05:08:00 Brandon Lopez [facility] MAGNESIUM 2019-07-29 05:08:00 John alberta [facility] PT/APTT 2019-07-29 05:08:00 Brandon Lopez [facility] PROTHROMBIN TIME/INR 2019-07-29 05:08:00 Brandon Lopez [facility] PHOSPHORUS 2019-07-29 05:08:00 Gal Lopez [facility] TYPE AND SCREEN, AUTOMATED 2019-07-29 05:08:00 Brandon Lopez [facility] Plan of Care Planned Activity Planned Date Details Comments Source Future Scheduled 2020-06-14 [facility]ZA [facility] (#[facility] [code = INFLUENZA Medical Ce nter VACCINE (#1)] Future Scheduled 2019-10-[address] [facility] - Test 00:00:00 WELLNESS (YEAR 2 or Medical Center FIRST YEAR if no IPPE) [code = MEDICARE ANNUAL WELLNESS (YEAR 2 or FIRST YEAR if no IPPE)] Future Scheduled 2016 PNEUMOCOCCAL [address] - Test 00:00:00 LOW/MEDIUM RISK (1 of Medica l Center 2 - PCV13) [code = PNEUMOCOCCAL 65+ LOW/MEDIUM RISK (1 of 2 - PCV13)] Future Scheduled [address] - Test 00:00:00 malignant neoplasm of [facility] breast (procedure) [code = 684339606] Future Scheduled 1950 Screening for [facility] es - Test 00:00:00 malignant neoplasm of [facility] colon (procedure) [code = 388649799] Results Test Description Test Time Test Comments [...] mg/dL 70-105 H Calcium (test code = 85321-0) 8.7 mg/dL 8.4-10.2 EGFR (test code = 78454-7) I NSUFFICIENT CLINICAL DATA TO CALCULATE ESTIM ATED GFR. Lab Interpretation (test code = Abnormal 71133-2) [facility]OL[facility] [id number] 06:24:00 Test Item Value Reference Range Interpretation [...] 450 K/CU MM MPV (test code = 04692-5) 9.9 fL 9.4-12.3 nRBC (test code = 413) 0 0- 0 /100 WBC Lab Interpretation (test code = Abnormal 99942-1) [facility] ONLY)2019-08-04 05:47:00 Test Item Value [...] (BEAKER) (test code = 412) PLATELET COUNT ([facility]) (test 343 K/CU MM 150-450 code = 756) MEAN PLATELET VOLUME (BEAKER) 9.9 fL 9.4-12.3 (test code = 754) NUCLEATED RED BLOOD CELLS 0 /100 WBC 0-0 (BEAKER) (test code = 413) POC-Glucose [id number] 21:22:00 Test Item Value Reference Range Interpretation Comments POC-Glucose Meter (test 138 mg/dL 70-110 H TEST ED AT [facility] code = 1538) [address] [facility] 7703 0 Lab Interpretation (test Abnormal code = 03872-9) [facility] HospitalPOCT-GLUCOSE [id number] 21:22:00 Test Item Value Reference Range Interpretation Comments POC-GLUCOSE METER 138 mg/dL 70-110 H TESTED AT [facility] 6720 [facility] (test code = [facility] Thomas [facility] 1538) [address] POCT-GLUCOSE [id number] 17:38:00 Test Item Value Reference Range Interpretation Comments POC-GLUCOSE METER 131 mg/dL 70-110 H TESTED AT [facility] 67 (BEAKER) (test code = [facility] 1538) [address] 2D Echo W/Doppler(CW/PW/Color)2019-08-03 10:31:11Ejection FractionSLEH ECHO HEARTLAB MKCKESSON CPACSInterface, External Ris In - 08/03/2019 10:31 AM C DTTransthoracic Echocardiography Report (TTE) Demographics Patient Name ALLISON VALLE Date of Study 08/02/2019 Gender Female Visit Number [id number] Race Unknown Room Number 1138 Number Date of 1950 Referring Physician Gurwinder Edouard Age 69 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(s) 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[place] 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 [facility], 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 Yahaira Arias, Interpreting REGI Simons Physician Procedure [...] Velocity: 2.61 m/s TR Gradient: 27.18 mmHgCHI [facility] Hospital[facility] 12 [id number] 08:08:17Interface, External Ris In - 08/03/2019 8:08 AM CDTVentricular Rate 66 BPMAtrial Rate 66 BPMP-R Interval 160 msQRS Duration 80 msQ-T Interval 420 msQTC Calculation(Bazett) 440 msP [place] 36 degreesR [place] 40 degreesT [place] 32 degreesSinus rhythm with occasional Premature ventricular complexesOtherwise normal ECGWhen compared with ECG of 29-JUL-2019 05:32,ST-T changes are no longer present.Confirmed by Daksha OLVERA MICHAEL ([id number]) on 08/03/2019 8:08:11 [facility] 2019-08-03 06:07:00 Test [...] 1092) DATA TO CALCULA TE ESTIMATED GFR. [id number] 06:04:00 Test Item Value Reference Range Interpretation Comments Magnesium (test code = 58116-8) 1.8 mg/dL 1.6-2.6 Lab Interpretation (test code = Normal 80847-4) [facility]UM2019-10-21 06:04:00 Test Item Value Reference Range [...] H (AKER) (test code = 413) POCT-GLUCOSE [id number] 23:10:00 Test Item Value Reference Range Interpretation Comments POC-GLUCOSE METER 127 mg/dL 70-110 H TESTED AT [place] [address] ([facility]) (test code = ERENDIRA Guzman [facility] 1538) [address] POCT-GLUCOSE [id number] 12:36:00 Test Item Value Reference Range Interpretation Comments POC-GLUCOSE METER 157 mg/dL 70-110 H TESTED AT [place] [address] ([facility]) (test code = ERENDIRA Guzman [facility] 1538) [address] CBC (HEMOGRAM ONLY)2019-08-02 06:03:00 Test Item Value [...] (BEAKER) (test code = 413) BASIC METABOLIC [id number] 05:47:00 Test Item Value Reference Range Interpretation [...] 1092) DATA TO CALCULA TE ESTIMATED GFR. [id number] 05:46:00 Test Item Value Reference Range Interpretation Comments Phosphorus (test code = 2777-1) 2.5 mg/dL 2.3-4.7 Lab Interpretation (test code = Normal 15709-7) [facility]PHOS[facility]ORUS2019-10-20 05:46:00 Test Item Value Reference Range Interpretation Comments PHOSPHORUS (BEAKER) (test code = 2.5 mg/dL 2.3-4.7 604) [id number] 05:46:00 Test Item Value Reference Range Interpretation Comments MAGNESIUM (BEAKER) (test code = 2.1 mg/dL 1.6-2.6 627) POCT-GLUCOSE [id number] 20:47:00 Test Item Value Reference Range Interpretation Comments POC-GLUCOSE METER 164 mg/dL 70-110 H TESTED AT [facility] 6720 (BEAKER) (test code = ERENDIRA Guzman [place] 1538) [address] POCT-GLUCOSE [id number] 17:38:00 Test Item Value Reference Range Interpretation Comments POC-GLUCOSE METER 194 mg/dL 70-110 H TESTED AT [facility] 6720 (BEAKER) (test code = [facility] [place] 1538) [address] Hemoglobin [id number] 07:51:00 Test Item Value Reference Range Interpretation Comments Hemoglobin A1C (test code = 4548-4) 8.6 % 4.3-6.1 H Lab Interpretation (test code = Abnormal 39671-9) [facility] HospitalPO[facility]UCOSE [id number] 07:51:00 Test Item Value Reference Range Interpretation Comments POC-GLUCOSE METER 157 mg/dL 70-110 H TESTED AT [facility] 6720 (BEAKER) (test code = [facility] [place] 1538) [address] HEMOGLOBIN [id number] 07:51:00 Test Item Value Reference Range Interpretation Comments HEMOGLOBIN A1C (BEAKER) (test code = 8.6 % 4.3-6.1 H 368) BASIC METABOLIC [id number] 06:11:00 Test Item Value Reference Range Interpretation [...] 1092) DATA TO CALCULA TE ESTIMATED GFR. [id number] 06:10:00 Test Item Value Reference Range Interpretation Comments PHOSPHORUS (BEAKER) (test code = 1.9 mg/dL 2.3-4.7 L 604) [id number] 06:10:00 Test Item Value Reference Range Interpretation [...] 0-0 (BEAKER) (test code = 413) POCT-GLUCOSE [id number] 22:07:00 Test Item Value Reference Range Interpretation Comments POC-GLUCOSE METER 175 mg/dL 70-110 H TESTED AT [facility] 6720 (BEAKER) (test code = [place] 1538) [address] POCT-GLUCOSE [id number] 18:30:00 Test Item Value Reference Range Interpretation Comments POC-GLUCOSE METER 225 mg/dL 70-110 H TESTED AT [facility] 6720 (BEAKER) (test code = ERENDIRA Guzman [place] 1538) [address] POCT-GLUCOSE [id number] 12:17:00 Test Item Value Reference Range Interpretation Comments POC-GLUCOSE METER 170 mg/dL 70-110 H TESTED AT [facility] 6720 (BEAKER) (test code = ERENDIRA Guzman [facility] 1538) [address] POCT-GLUCOSE [id number] 08:20:00 Test Item Value Reference Range Interpretation Comments POC-GLUCOSE METER 161 mg/dL 70-110 H TESTED AT [facility] 6720 (BEAKER) (test code = ERENDIRA Guzman [facility] 1538) [address] BASIC METABOLIC [id number] 08:18:00 Test Item Value Reference Range Interpretation [...] 1092) DATA TO CALCULA TE ESTIMATED GFR. [id number] 08:15:00 Test Item Value Reference Range Interpretation Comments MAGNESIUM (BEAKER) 1.9 mg/dL 1.6-2.6 Specimen slightly (test code = 627) hemolyzed [id number] 08:15:00 Test Item Value Reference Range Interpretation Comments PHOSPHORUS (BEAKER) 2.3 mg/dL 2.3-4.7 Specimen slightly (test code = 604) hemolyzed RAD, CHEST, 1 VIEW, NON [id number] 07:56:00Reason for exam:->post-op cardiac surgeryShould this be [...] MDReport Verified Date/Time: 07/31/2019 07:56:15 Reading Location: [facility] Radiology Reading Room XR chest 1 view portable / [id number] 07:56:00 Interface, External Ris In - 07/31/2019 [...] MDReport Verified Date/Time: 07/31/2019 07:56:15 Reading Location: [facility] Radiology Reading [id number] 07:25:00 Test Item Value Reference Range Interpretation Comments Protime (test code = 14.5 11.9- 14.2 H 5902-2) seconds INR (test code = 1.2 <=5.9 6301-6) PTT (test code = 33.1 22.5- 36.0 48819-9) seconds GABRIELA (test code = GABRIELA) Effective 03/11/2019: PT Reference Range ChangeNew: 11.9-14.2 Previous: 11.7-14.7 RECOMMENDED COUMADIN/WARFARIN INR THERAPY RANGESSTANDARD DOSE: 2.0-3.0 Includes: PROPHYLAXIS for venous thrombosis, systemic embolization; TREATMENT for venous thrombosis and/or pulmonary embolus.HIGH RISK: Target INR is 2.5-3.5 for patients wiht mechanical heart valves. Lab Interpretation Abnormal (test code = 10063-2) [facility][id number] 07:25:00 Test Item Value Reference Range Interpretation [...] CELL DISTRIBUTION WIDTH 19.2 % 11.7-14.4 H (AKER) (test code = 412) PLATELET COUNT ([facility]) (test 218 K/CU MM 150-450 code = 756) MEAN PLATELET VOLUME (AKER) 11.0 fL 9.4-12.3 (test code = 754) NUCLEATED RED BLOOD CELLS 0 /100 WBC 0-0 (AKER) (test code = 413) Prepare [id number] 23:54:00 Test Item Value Reference Range Interpretation Comments Unit ABO (test code = 3878616) B Pos UNIT NUMBER (test code = [id number] 934-0) Status (test code = 0328363) [place]_TIMEINCHART Blood Bank Product (test code PLATELETS = 2263) PRODUCT CODE (test code = R4529Y00 933-2) [facility] HospitalPO[facility]GLUCOSE [id number] 21:32:00 Test Item Value Reference Range Interpretation Comments POC-GLUCOSE METER 168 mg/dL 70-110 H TESTED AT [place] [address] ([facility]) ([facility] 1538) [id number] POCT-GLUCOSE [id number] 17:55:00 Test Item Value Reference Range Interpretation Comments POC-GLUCOSE METER 172 mg/dL 70-110 H TESTED AT [place] [address] ([facility]) (test code = [facility] 1538) [address] POCT-GLUCOSE [id number] 15:34:00 Test Item Value Reference Range Interpretation Comments POC-GLUCOSE METER 152 mg/dL 70-110 H TESTED AT [place] [address] ([facility]) (test code = [facility] [employer] [place] 1538) [address] POCT-GLUCOSE [id number] 12:52:00 Test Item Value Reference Range Interpretation Comments POC-GLUCOSE METER 222 mg/dL 70-110 H TESTED AT [place] [address] ([facility]) (test code = [facility] [employer] [place] 1538) [address] POCT-GLUCOSE [id number] 07:19:00 Test Item Value Reference Range Interpretation Comments POC-GLUCOSE METER 185 mg/dL 70-110 H TESTED AT [place] [address] ([facility]) (test code = [facility] [employer] [place] 1538) [address] POC ACTIVATED CLOTTING [id number] 06:16:00 Test Item Value Reference Range Interpretation Comments Activated Clotting Time 109 sec Refe rence Range: 74-137 (test code = 441) seconds, B aseline/TESTED AT [place] [address] [facility] 7703 0 [id number] 06:16:00 Test Item Value Reference Range Interpretation Comments ACTIVATED CLOTTING TIME 109 sec Refe rence Range: (BEAKER) (test code = 74-137 seconds, 441) Baseline/TESTED AT [place] [id number] [facility] 7703 0 [id number] 06:16:00 Test Item Value Reference Range Interpretation Comments ACTIVATED CLOTTING TIME 543 sec Refe rence Range: (BEAKER) (test code = 74-137 seconds, 441) Baseline/TESTED AT [place] [id number] [facility] 7703 0 [id number] 06:16:00 Test Item Value Reference Range Interpretation Comments ACTIVATED CLOTTING TIME 510 sec Refe rence Range: (BEAKER) (test code = 74-137 seconds, 441) Baseline/TESTED AT [place] [id number] [facility] 7703 0 BASIC METABOLIC [id number] 06:04:00 Test Item Value Reference Range Interpretation [...] 1092) DATA TO CALCULA TE ESTIMATED GFR. [id number] 06:02:00 Test Item Value Reference Range Interpretation Comments PHOSPHORUS (BEAKER) (test code = 3.7 mg/dL 2.3-4.7 604) [id number] 06:02:00 Test Item Value Reference Range Interpretation Comments MAGNESIUM (BEAKER) (test code = 2.0 mg/dL 1.6-2.6 627) [id number] 05:57:00 Test Item Value Reference Range Interpretation [...] is2.5-3.5 for patients wiht mechanical heart valves.Prothrombin time/[id number] 05:56:00 Test Item Value Reference Range Interpretation [...] valves. Lab Interpretation Abnormal (test code = 94775-1) [facility] HospitalPROT[facility]OMBIN TIME/[id number] 05:56:00 Test Item Value Reference Range Interpretation [...] heart valves.CBC with platelet count + automated [id number] 05:55:00 Test Item Value Reference Range Interpretation [...] 450 K/CU MM MPV (test code = 39535-5) 10.8 fL 9.4-12.3 nRBC (test code = [...] 2801) Lab Interpretation (test code = Abnormal 73017-1) [facility] HospitalCalcium, [id number] 05:55:00 Test Item Value Reference Range Interpretation Comments Calcium, Ion (test code = 1993-) 1.17 mmol/L 1.12-1.27 pH, Blood (test code = 68206-1) 7.38 [facility] HospitalCALCIUM, [id number] 05:55:00 Test Item Value Reference Range Interpretation Comments CALCIUM IONIZED (BEAKER) (test 1.17 mmol/L 1.12-1.27 code = 698) PH, BLOOD (BEAKER) (test code = 7.38 1810) CBC W/PLT COUNT & AUTO [id number] 05:55:00 Test Item Value Reference Range Interpretation [...] (BEAKER) (test code = 2801) Oxygen saturation, [id number] 05:49:00 Test Item Value Reference Range Interpretation Comments O2 Saturation (Measured) (test code = 77.2 % 85699-9) [facility] HospitalOXYGEN SATURATION, [id number] 05:49:00 Test Item Value Reference Range Interpretation Comments O2 SATURATION (MEASURED) (BEAKER) 77.2 % (test code = 1455) RAD, CHEST, 1 VIEW, NON [id number] 05:35:00Reason for exam:->post-op cardiac surgeryShould this be performed at the bedside?->YesFINAL REPORT RAD, CHEST, 1 VIEW, NON DEPT INDICATION: post-op cardiac surgeryCOMPARISON: Prior day's exam FINDINGS: Portable frontal view of the chest. IMPRESSION: Support Lines: Interval extubation. Otherwise unchanged support apparatus. Lungs and pleura: Unchanged airspaceopacities. No pneumothorax.Heart and mediastinum: Stable contours. Stable surgical changes.Additional findings: None. Signed: Ottoniel Brand MDReport Verified Date/Time: 07/30/2019 05:35:16 [id number] 18:41:00 Test Item Value Reference Range Interpretation Comments Potassium (test code = 4.2 meq/L 3.5-5.1 2823-3) GABRIELA (test code = GABRIELA) PRN - repeat potassium levels every 1 hour until glucose level is less than 450 mg/dL Lab Interpretation (test Normal code = 92084-9) [facility] HospitalPOTASSIUM2019-10-16 18:41:00 Test Item Value Reference Range Interpretation Comments POTASSIUM (BEAKER) (test code = 4.2 meq/L 3.5-5.1 379) PRN - repeat potassium levels every 1 hour until glucose level is less than 450 mg/dLPOCT-GLUCOSE [id number] 18:14:00 Test Item Value Reference Range Interpretation Comments POC-GLUCOSE METER 175 mg/dL 70-110 H TESTED AT [facility] 6720 (BEAKER) (test code = [place] 1538) [address] Blood gas, [id number] 16:57:00 Test Item Value Reference Range Interpretation [...] % Lab Interpretation (test code = Abnormal 34037-8) [facility] HospitalBLOOD GAS, [id number] 16:57:00 Test Item Value Reference Range Interpretation [...] (test code = 1819) 40.0 % HEMOGLOBIN [id number] 16:17:00 Test Item Value Reference Range Interpretation Comments HEMOGLOBIN A1C (BEAKER) (test code = 9.5 % 4.3-6.1 H 368) Platelet Aggregation: Function [id number] 15:15:00 Test Item Value Reference Range Interpretation Comments Pathologist: (test Giovanni Tee M.D. code = 2622) (electonic signature) Platelets (test code = 273 150- 450 K/CU MM 2656) ADP (test code = 12 % 62-100 L 32871-0) Platelet Rich Plasma 258 200- 300 k/cu mm (test code = 2134) Plt. Function Screen Pattern of Interpretation (test disaggregation present code = 4655) with ADP which may be characteristic of P2Y12 inhibitor effect. Correlation with medication history is required. GABRIELA (test code = GABRIELA) Platelet Function Screen results may be falsely low with platelet counts<75,000/cu mm. Lab Interpretation Abnormal (test code = 06687-1) [facility] HospitalPLATELET AGGREGATION: FUNCTION [id number] 15:15:00 Test Item Value Reference Range Interpretation Comments [id number] Giovanni Tee M.D. (BEAKER) (test code = (electonic signature) 2622) PLATELET [...] be falsely low with platelet counts<75,000/cu mm.POCT-GLUCOSE [id number] 15:07:00 Test Item Value Reference Range Interpretation Comments POC-GLUCOSE METER 125 mg/dL 70-110 H TESTED AT [place] [address] ([facility]) (test code = ERENDIRA Guzman [facility] 1538) [address] POCT-GLUCOSE [id number] 14:26:00 Test Item Value Reference Range Interpretation Comments POC-GLUCOSE METER 85 mg/dL 70-110 TESTED AT [facility] 6720 ([facility]) (test code = [place] [address] 1538) POCT-GLUCOSE [id number] 14:14:00 Test Item Value Reference Range Interpretation Comments POC-GLUCOSE METER 88 mg/dL 70-110 TESTED AT [place] [id number] ([facility]) (test code = ERENDIRA Guzman [facility] [address] 1538) RAD, CHEST, 1 VIEW, NON [id number] 13:11:00Reason for exam:->Status post CV Surgery post [...] evidence of postoperative complication. Signed: Pancho Akbar [facility] VerifiedDate/Time: 07/29/2019 13:11:13 Reading Location: [facility] Reading Room POCT-GLUCOSE METER 2019-07-29 13:00:00 Test Item Value Reference Range Interpretation Comments POC-GLUCOSE METER 132 mg/dL 70-110 H TESTED AT [facility] 6720 ([facility]) (test code = ERENDIRA Guzman [facility] 1538) [address] BASIC METABOLIC [id number] 12:28:00 Test Item Value Reference Range Interpretation Comments SODIUM (BEAKER) (test 136 meq/L 136-145 code = 381) POTASSIUM (BEAKER) 3.8 meq/L 3.5-5.1 (test code = 379) CHLORIDE (BEAKER) 107 meq/L 98-107 (test code = 382) CO2 (BEAKER) (test 22 meq/L - code = 355) BLOOD UREA NITROGEN 13 mg/dL 7-21 (BEAKER) (test code = 354) CREATININE (BEAKER) 0.70 mg/dL 0.57-1.25 (test code = 358) GLUCOSE RANDOM 173 mg/dL 70-105 H (BEAKER) (test code = 652) CALCIUM (BEAKER) 8.9 mg/dL 8.4-10.2 (test code = 697) EGFR (BEAKER) (test INSUFFIC IENT CLINICAL code = 1092) DATA TO CALCULA TE ESTIMATED GFR. [id number] 12:27:00 Test Item Value Reference Range Interpretation Comments PHOSPHORUS (BEAKER) (test code = 2.3 mg/dL 2.3-4.7 604) [id number] 12:27:00 Test Item Value Reference Range Interpretation Comments MAGNESIUM (BEAKER) (test code = 2.6 mg/dL 1.6-2.6 627) [id number] 12:26:00 Test Item Value Reference Range Interpretation Comments PTT (test code = 00093-6) 27.4 22.5- 36.0 seconds Lab Interpretation (test code = Normal 56144-0) [facility]APTT[facility] 12:26:00 Test Item Value Reference Range Interpretation Comments PARTIAL THROMBOPLASTIN TIME 27.4 seconds 22.5-36.0 (BEAKER) (test code = 760) PROTHROMBIN TIME/[id number] 12:25:00 Test Item Value Reference Range Interpretation [...] 0.5-2.2 Lab Interpretation (test code = Normal 82779-5) [facility], [id number] 12:21:00 Test Item Value Reference Range Interpretation Comments LACTATE BLOOD ARTERIAL (2) 1.2 mmol/L 0.5-2.2 (BEAKER) (test code = 0154) CBC W/PLT COUNT & AUTO [id number] 12:08:00 Test Item Value Reference Range Interpretation [...] PERCENT (BEAKER) (test code = 2801) CALCIUM, [id number] 12:04:00 Test Item Value Reference Range Interpretation Comments CALCIUM IONIZED (BEAKER) (test 1.15 mmol/L 1.12-1.27 code = 698) PH, BLOOD (BEAKER) (test code = 7.44 1810) BLOOD GAS, [id number] 12:03:00 Test Item Value Reference Range Interpretation [...] code = 1819) 60.0 % OXYGEN SATURATION, [id number] 12:00:00 Test Item Value Reference Range Interpretation Comments O2 SATURATION (MEASURED) (BEAKER) 66.6 % (test code = 1455) For occult [id number] 11:53:00 Test Item Value Reference Range Interpretation Comments PHOSPHORUS (BEAKER) (test code = 2.9 mg/dL 2.3-4.7 604) CALCIUM, [id number] 10:32:00 Test Item Value Reference Range Interpretation Comments CALCIUM IONIZED (BEAKER) (test 1.03 mmol/L 1.12-1.27 L code = 698) PH, BLOOD (BEAKER) (test code = 7.33 1810) HGB/HCT (H&H)-Stat [id number] 10:31:00 Test Item Value Reference Range Interpretation Comments Hemoglobin (test code = 786-4) 8.0 g/dL 12-15 L Hematocrit (test code = 4544-3) 24.0 % 36-45 L Lab Interpretation (test code = Abnormal 64787-3) [facility] HospitalGlucose-Stat [id number] 10:31:00 Test Item Value Reference Range Interpretation Comments Glucose (test code = 2345-7) 226 mg/dL 70-110 H Lab Interpretation (test code = Abnormal 44074-3) [facility] [id number] 10:31:00 Test Item Value Reference Range Interpretation Comments Sodium (test code = 2951-2) 133 meq/L 135-148 L Lab Interpretation (test code = Abnormal 64263-6) [facility] HospitalBLOOD GAS, [id number] 10:31:00 Test Item Value Reference Range Interpretation [...] code = 1819) 100.0 % SODIUM NA-STAT [id number] 10:31:00 Test Item Value Reference Range Interpretation Comments SODIUM (BEAKER) (test code = 381) 133 meq/L 135-148 L GLUCOSE-STAT [id number] 10:31:00 Test Item Value Reference Range Interpretation Comments GLUCOSE RANDOM (BEAKER) (test code 226 mg/dL 70-110 H = 652) HGB/HCT (H&H) - STAT [id number] 10:31:00 Test Item Value Reference Range Interpretation Comments HEMOGLOBIN (BEAKER) (test code = 8.0 g/dL 12.0-15.0 L 410) HEMATOCRIT (BEAKER) (test code = 24.0 % 36.0-45.0 L 411) Potassium-Stat [id number] 10:30:00 Test Item Value Reference Range Interpretation Comments Potassium (test code = 2823-3) 4.2 meq/L 3.6-5.5 Lab Interpretation (test code = Normal 55350-2) [facility]POT[facility]UM-STAT [id number] 10:30:00 Test Item Value Reference Range Interpretation Comments POTASSIUM (BEAKER) (test code = 4.2 meq/L 3.6-5.5 379) BLOOD GAS, [id number] 10:05:00 Test Item Value Reference Range Interpretation [...] code = 1819) 80.0 % SODIUM NA-STAT [id number] 10:05:00 Test Item Value Reference Range Interpretation Comments SODIUM (BEAKER) (test code = 381) 127 meq/L 135-148 L POTASSIUM-STAT [id number] 10:05:00 Test Item Value Reference Range Interpretation Comments POTASSIUM (BEAKER) (test code = 5.9 meq/L 3.6-5.5 H 379) GLUCOSE-STAT [id number] 10:05:00 Test Item Value Reference Range Interpretation Comments GLUCOSE RANDOM (BEAKER) (test code 241 mg/dL 70-110 H = 652) HGB/HCT (H&H) - STAT [id number] 10:05:00 Test Item Value Reference Range Interpretation Comments HEMOGLOBIN (BEAKER) (test code = 8.0 g/dL 12.0-15.0 L 410) HEMATOCRIT (BEAKER) (test code = 24.0 % 36.0-45.0 L 411) BLOOD GAS, [id number] 09:51:00 Test Item Value Reference Range Interpretation [...] code = 1819) 80.0 % SODIUM NA-STAT [id number] 09:51:00 Test Item Value Reference Range Interpretation Comments SODIUM (BEAKER) (test code = 381) 130 meq/L 135-148 L GLUCOSE-STAT [id number] 09:51:00 Test Item Value Reference Range Interpretation Comments GLUCOSE RANDOM (BEAKER) (test code 249 mg/dL 70-110 H = 652) HGB/HCT (H&H) - STAT [id number] 09:51:00 Test Item Value Reference Range Interpretation Comments HEMOGLOBIN (BEAKER) (test code = 8.1 g/dL 12.0-15.0 L 410) HEMATOCRIT (BEAKER) (test code = 24.0 % 36.0-45.0 L 411) POTASSIUM-STAT [id number] 09:50:00 Test Item Value Reference Range Interpretation Comments POTASSIUM (BEAKER) (test code = 5.4 meq/L 3.6-5.5 379) [id number] 09:45:49Cristobal Hutton MD - 07/29/2019 9:45 AM [...] functionNo valvular changesNo aortic dissectionNo pericardial effusionCH[facility] BLOOD GAS, [id number] 09:23:00 Test Item Value Reference Range Interpretation [...] code = 1819) 100.0 % SODIUM NA-STAT [id number] 09:23:00 Test Item Value Reference Range Interpretation Comments SODIUM (BEAKER) (test code = 381) 132 meq/L 135-148 L GLUCOSE-STAT [id number] 09:23:00 Test Item Value Reference Range Interpretation Comments GLUCOSE RANDOM (BEAKER) (test code 164 mg/dL 70-110 H = 652) CALCIUM, [id number] 09:23:00 Test Item Value Reference Range Interpretation Comments CALCIUM IONIZED (BEAKER) (test 1.05 mmol/L 1.12-1.27 L code = 698) PH, BLOOD (BEAKER) (test code = 7.44 1810) POTASSIUM-STAT [id number] 09:22:00 Test Item Value Reference Range Interpretation Comments POTASSIUM (BEAKER) (test code = 4.0 meq/L 3.6-5.5 379) HGB/HCT (H&H) - STAT [id number] 09:22:00 Test Item Value Reference Range Interpretation Comments HEMOGLOBIN (BEAKER) (test code = 12.2 g/dL 12.0-15.0 410) HEMATOCRIT (BEAKER) (test code = 36.0 % 36.0-45.0 411) RAD, CHEST, 1 VIEW, NON [id number] 07:12:00Reason for exam:->preopShould this be performed at [...] Rh Factor (test code = 2589) POS [facility]APTT[facility] 07:01:00 Test Item Value Reference Range Interpretation Comments PARTIAL THROMBOPLASTIN TIME 31.2 seconds 22.5-36.0 (BEAKER) (test code = 760) Type and screen, [id number] 06:13:00 Test Item Value Reference Range Interpretation Comments ABO/RH AUTOMATED (BEAKER) (test A POSITIVE code = 2260) Ab Scrn (test code = 890-4) NEGATIVE [facility]OLIC [id number] 05:57:00 Test Item Value Reference Range Interpretation [...] 1092) DATA TO CALCULA TE ESTIMATED GFR. [id number] 05:51:00 Test Item Value Reference Range Interpretation Comments MAGNESIUM (BEAKER) (test code = 1.9 mg/dL 1.6-2.6 627) PT/[id number] 05:35:00 Test Item Value Reference Range Interpretation [...] is2.5-3.5 for patients wiht mechanical heart valves.PROTHROMBIN TIME/[id number] 05:34:00 Test Item Value Reference Range Interpretation [...] mechanical heart valves.CBC W/PLT COUNT & AUTO [id number] 05:24:00 Test Item Value Reference Range Interpretation [...] % 0-1 PERCENT (BEAKER) (test code = 1256)
--- NOTE | 2020-05-31 16:09 | RAD REPORT ---
EXAM DESCRIPTION: Pérez Single View05/31/2020 3:28 pm CLINICAL HISTORY: Chest pain COMPARISON: May 22, 2020 FINDINGS: The lungs appear clear of acute infiltrate. The heart is borderline enlarged Postsurgical changes involve the chest. IMPRESSION: No acute abnormalities displayed
[2020-05-31 16:23] LABS: Protime INR 1.09
[2020-05-31 16:31] LABS: Absolute Lymphocytes (CBC) 2.2 K/uL (0.7-4.9); Basophils % 1.1 % (0-1.3); Hematocrit 33.9 % (36.0-45.0); Lymphocytes % 22.4 % (15.3-44.8); MPV 9.4 fL (7.6-11.3)
[2020-05-31 16:35] LABS: Albumin 3.2 g/dL (3.4-5.0); Bilirubin Direct 0.1 mg/dL (0-0.2); Bilirubin Total 0.4 mg/dL (0.2-1.0); Magnesium 1.8 mg/dL (1.8-2.4); Potassium 3.8 mmol/L (3.5-5.1); Protein, Total 8.2 g/dL (6.4-8.2); Troponin (Emerg Dept Use Only) 0.02 ng/mL (0.0-0.045)
[2020-05-31] MEDS ORDERED: ONDANSETRON 4 MG/2 ML VIAL ONE (16:57)
[2020-05-31] MEDS ORDERED: FENTANYL CITR 100 MCG/2 ML ONE (16:57)
--- NOTE | 2020-05-31 17:23 | ER ---
Nurse's Notes [facility] Name: Ivet Calderon Age: 69 yrs Sex: Female : 1950 Arrival Date: 05/31/2020 Time: 14:49 Bed 2 Private MD: Diagnosis: Muscle spasm of back;Headache Presentation: 05/31 15:01 Chief complaint: Patient states: right shoulder pain stabbing started about an hour iw ago, also her jaw seems to be locking up, thinks she took her home meds twice today, thinks that's why her jaw is locked up, and now she also has a real bad headache, also is having left sided chest pain, had a heart stent placed on Saturday morning here at [facility]. Initial Sepsis Screen: Does the patient meet any 2 criteria? No. Patient's initial sepsis screen is negative. Does the patient have a suspected source of infection? No. Patient's initial sepsis screen is negative. Risk Assessment: Do you want to hurt yourself or someone else? Patient reports no desire to harm self or others. Onset of symptoms was May 31, 2020. 15:01 Method Of Arrival: Ambulatory iw 15:01 Acuity: DORYS 2 iw 15:30 Coronavirus screen: Client denies travel out of the [place] in the last 14 days. At this jr10 time, the client does not indicate any symptoms associated with coronavirus-19. Ebola Screen: No symptoms or risks identified at this time. Historical: - Allergies: 15:04 morphine; iw - PMHx: 15:04 Diabetes - NIDDM; Hypertension; iw - PSHx: 15:04 Appendectomy; Angioplasty; CABG; Cholecystectomy; Heart stents; iw - Immunization history:: Adult Immunizations up to date. - Social history:: Smoking status: Patient denies any tobacco usage or history of. Screenin:11 Abuse screen: Denies threats or abuse. Denies injuries from another. Nutritional jr10 screening: No deficits noted. Tuberculosis screening: No symptoms or risk factors identified. Fall Risk IV access (20 points). Assessment: 16:11 General: Appears uncomfortable, Behavior is appropriate for age, anxious. Pain: jr10 Complains of pain in chest and generalized CANTRELL Pain currently is 9 out of 10 on a pain scale. Quality of pain is described as aching. Neuro: Level of Consciousness is awake, alert, obeys commands, Oriented to person, place, time, situation, Appropriate for age Reports blurred vision headache. Cardiovascular: Reports chest pain, shortness of breath, Rhythm is sinus rhythm. Respiratory: Reports shortness of breath at rest Airway is patent Respiratory effort is even, unlabored, Respiratory pattern is regular, symmetrical. GI: No deficits noted. No signs and/or symptoms were reported involving the gastrointestinal system. : No deficits noted. No signs and/or symptoms were reported regarding the genitourinary system. EENT: No deficits noted. No signs and/or symptoms were reported regarding the EENT system. Derm: No deficits noted. No signs and/or symptoms reported regarding the dermatologic system. Musculoskeletal: No deficits noted. No signs and/or symptoms reported regarding the musculoskeletal system. Vital Signs: 15:01 BP 186 / 81; Pulse 82; Resp 16; Temp 98.3; Pulse Ox 99% on R/A; Weight 77.11 kg; Height iw 5 ft. 1 in. (154.94 cm); Pain 10/10; 16:10 BP 179 / 74; Pulse 64; Resp 18; Pulse Ox 98% ; Pain 9/10; jr10 16:34 BP 140 / 63; Pulse 63; Resp 18; Pulse Ox 98% on R/A; jr10 17:13 BP 127 / 40; Pulse 58; Resp 17; Pulse Ox 95% ; Pain 0/10; jr10 17:39 BP 127 / 62; Pulse 62; Resp 18; Pulse Ox 97% on R/A; Pain 0/10; jr10 15:01 Body Mass Index 32.12 (77.11 kg, 154.94 cm) iw ED Course: 14:49 Patient arrived in ED. ds1 15:03 Triage completed. iw 15:07 Matty Beal PA is PHCP. jr8 15:07 Ty Walsh MD is Attending Physician. jr8 15:28 XRAY Chest (1 view) In Process Unspecified. EDMS 16:06 Mignon Woodard, JOSE is Primary Nurse. jr10 16:11 Patient has correct armband on for positive identification. Bed in low position. Call jr10 light in reach. Side rails up X2. athletic monitor on. Pulse ox on. NIBP on. 16:12 No provider procedures requiring assistance completed. Inserted saline lock: 20 gauge jr10 in right antecubital area, using aseptic technique. IV is patent, is intact, with good blood return, Flushed. 17:22 Alden Shook MD is Referral Physician. jr8 17:40 IV discontinued, intact, bleeding controlled, No redness/swelling at site. Pressure jr10 dressing applied. Administered Medications: 16:53 Drug: fentaNYL (PF) 50 mcg Route: IVP; Site: right antecubital; jr10 17:14 Follow up: Response: No adverse reaction; Pain is decreased jr10 16:53 Drug: Zofran (Ondansetron) 4 mg Route: IVP; Site: right antecubital; jr10 17:14 Follow up: Response: No adverse reaction jr10 Outcome: 17:23 Discharge ordered by . jr8 17:41 Discharged to home ambulatory. jr10 17:41 Condition: improved 17:41 Discharge instructions given to patient, Instructed on discharge instructions, follow up and referral plans. Demonstrated understanding of instructions, follow-up care. 17:42 Patient left the ED. jr10 Signatures: Dispatcher [employer] [facility] Cyndi Monet ds1 Tracie Barrios, RN RN iw Matty Beal PA PA jr8 Mignon Woodard RN RN jr10
--- NOTE | 2020-05-31 17:24 | EDPHYS ---
Physician Documentation [facility] Name: Ivet Calderon Age: 69 yrs Sex: Female : 1950 Arrival Date: 05/31/2020 Time: 14:49 Bed 2 Private MD: ED Physician Ty Walsh HPI: 05/31 15:14 This 69 yrs old Female presents to ER via Ambulatory with complaints of Jaw jr8 Pain, Back Pain, Headache. 15:14 Onset: The symptoms/episode began/occurred acutely, today. Associated signs and jr8 symptoms: Pertinent positives: chest pain. Modifying factors: The patient symptoms are alleviated by nothing, the patient symptoms are aggravated by activity, movement. The patient has not experienced similar symptoms in the past. The patient has been recently seen by a physician:. Patient recently seen and d/c'd from hospital last Saturday after having cardiac stent placed. Stated that she had been doing well. Stated that today after taking her medicine which she may have taken too much of, started to have right sided back pain, chest pain, headache, and jaw pain . Historical: - Allergies: 15:04 morphine; iw - PMHx: 15:04 Diabetes - NIDDM; Hypertension; iw - PSHx: 15:04 Appendectomy; Angioplasty; CABG; Cholecystectomy; Heart stents; iw - Immunization history:: Adult Immunizations up to date. - Social history:: Smoking status: Patient denies any tobacco usage or history of. ROS: 15:14 Eyes: Negative for injury, pain, redness, and discharge, ENT: Negative for injury, jr8 pain, and discharge, Neck: Negative for injury, pain, and swelling, Respiratory: Negative for shortness of breath, cough, wheezing, and pleuritic chest pain, Abdomen/GI: Negative for abdominal pain, nausea, vomiting, diarrhea, and constipation, MS/Extremity: Negative for injury and deformity, Skin: Negative for injury, rash, and discoloration. 15:14 Cardiovascular: Positive for chest pain, Negative for edema, orthopnea, palpitations, paroxysmal nocturnal dyspnea. 15:14 Back: Positive for pain at rest, pain with movement, of the right scapular area. 15:14 Neuro: Positive for headache. Exam: 15:14 Eyes: Pupils equal round and reactive to light, extra-ocular motions intact. Lids and jr8 lashes normal. Conjunctiva and sclera are non-icteric and not injected. Cornea within normal limits. Periorbital areas with no swelling, redness, or edema. ENT: Nares patent. No nasal discharge, no septal abnormalities noted. Tympanic membranes are normal and external auditory canals are clear. Oropharynx with no redness, swelling, or masses, exudates, or evidence of obstruction, uvula midline. Mucous membranes moist. Neck: Trachea midline, no thyromegaly or masses palpated, and no cervical lymphadenopathy. Supple, full range of motion without nuchal rigidity, or vertebral point tenderness. No Meningismus. Chest/axilla: Normal chest wall appearance and motion. Nontender with no deformity. No lesions are appreciated. Cardiovascular: Regular rate and rhythm with a normal S1 and S2. No gallops, murmurs, or rubs. Normal PMI, no JVD. No pulse deficits. Respiratory: Lungs have equal breath sounds bilaterally, clear to auscultation and percussion. No rales, rhonchi or wheezes noted. No increased work of breathing, no retractions or nasal flaring. Abdomen/GI: Soft, non-tender, with normal bowel sounds. No distension or tympany. No guarding or rebound. No evidence of tenderness throughout. Skin: Warm, dry with normal turgor. Normal color with no rashes, no lesions, and no evidence of cellulitis. MS/ Extremity: Pulses equal, no cyanosis. Neurovascular intact. Full, normal range of motion. Neuro: Awake and alert, GCS 15, oriented to person, place, time, and situation. Cranial nerves II-XII grossly intact. Motor strength 5/5 in all extremities. Sensory grossly intact. Cerebellar exam normal. Normal gait. 15:14 ECG was reviewed by the Attending Physician. 15:14 Back: pain, that is moderate, of the right scapular area, ROM is painful, normal spinal alignment noted, CVA tenderness, is absent, vertebral tenderness, is not appreciated. Vital Signs: 15:01 BP 186 / 81; Pulse 82; Resp 16; Temp 98.3; Pulse Ox 99% on R/A; Weight 77.11 kg; Height iw 5 ft. 1 in. (154.94 cm); Pain 10/10; 16:10 BP 179 / 74; Pulse 64; Resp 18; Pulse Ox 98% ; Pain 9/10; jr10 16:34 BP 140 / 63; Pulse 63; Resp 18; Pulse Ox 98% on R/A; jr10 17:13 BP 127 / 40; Pulse 58; Resp 17; Pulse Ox 95% ; Pain 0/10; jr10 17:39 BP 127 / 62; Pulse 62; Resp 18; Pulse Ox 97% on R/A; Pain 0/10; jr10 15:01 Body Mass Index 32.12 (77.11 kg, 154.94 cm) iw MDM: 15:07 Patient medically screened. jr8 17:20 Data reviewed: vital signs, nurses notes, lab test result(s), EKG, radiologic studies, jr8 plain films, and as a result, I will discharge patient. Data interpreted: Pulse oximetry: on room air is 95 %. Interpretation: normal. 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 ED course: Patients pain upon examination was to the right back which was completely reproducible upon palpation. All pain has subsided after being medicated. ECG and cardiac enzymes without acute finding. VS stable. Unlikely that this was cardiac in nature. Still want patient to f/u with Dr. Shook which she agreed to. 05/31 15:07 Order name: Basic Metabolic Panel; Complete Time: 16:44 05/31 15:07 Order name: CBC with Diff; Complete Time: 16:44 05/31 15:07 Order name: LFT's; Complete Time: 16:44 05/31 15:07 Order name: Magnesium; Complete Time: 16:44 05/31 15:07 Order name: NT PRO-BNP; Complete Time: 16:44 05/31 15:07 Order name: PT-INR; Complete Time: 16:44 05/31 15:07 Order name: Troponin (emerg Dept Use Only); Complete Time: 16:44 05/31 15:07 Order name: XRAY Chest (1 view); Complete Time: 16:15 18 15:07 Order name: EKG; Complete Time: 15:05/31 15:07 Order name: Cardiac monitoring; Complete Time: 16:05/31 15:07 Order name: EKG - Nurse/Tech; Complete Time: 16:05/31 15:07 Order name: IV Saline Lock; Complete Time: 16:05/31 15:08 Order name: Labs collected and sent; Complete Time: 16:05/31 15:08 Order name: O2 Per Protocol; Complete Time: 16:05/31 15:08 Order name: O2 Sat Monitoring; Complete Time: 16: EC:14 Rate is 77 beats/min. Rhythm is regular, Normal Sinus Rhythm. QRS [place] is Normal. SD jr8 interval is normal at 136 msec. QRS interval is normal at 76 msec. QT interval is normal at 450 msec. No Q waves. T waves are Inverted in leads III, V1. No ST changes noted. Clinical impression: NSR w/ Non-specific ST/T Changes. Interpreted by me. Reviewed by me. Administered Medications: 16:53 Drug: fentaNYL (PF) 50 mcg Route: IVP; Site: right antecubital; jr10 17:14 Follow up: Response: No adverse reaction; Pain is decreased jr10 16:53 Drug: Zofran (Ondansetron) 4 mg Route: IVP; Site: right antecubital; jr10 17:14 Follow up: Response: No adverse reaction jr10 Disposition: 18:53 Co-signature as Attending Physician, Ty Walsh MD. rn Disposition: 05/31/20 17:23 Discharged to Home. Impression: Muscle spasm of back, Headache. - Condition is Stable. - Discharge Instructions: Back Pain, Adult, Migraine Headache, Muscle Cramps and Spasms. - Medication Reconciliation Form, Thank You Letter, Antibiotic Education, Prescription Opioid Use form. - Follow up: Alden Shook MD; When: 2 - 3 days; Reason: Recheck today's complaints, Continuance of care, Re-evaluation by your physician. - Problem is new. - Symptoms have improved. Signatures: Dispatcher [employer] EDTracie Brown RN RN iw Nieto, Roman, MD MD rn Roszak, Josh, JAMIE AYALA jr8 Mignon Woodard RN RN jr10 Corrections: (The following items were deleted from the chart) 17:42 17:23 05/31/2020 17:23 Discharged to Home. Impression: Muscle spasm of back; Headache. jr10 Condition is Stable. Forms are Medication Reconciliation Form, Thank You Letter, Antibiotic Education, Prescription Opioid Use. Follow up: Alden Shook; When: 2 - 3 days; Reason: Recheck today's complaints, Continuance of care, Re-evaluation by your physician. Problem is new. Symptoms have improved. jr8
[2020-05-31 18:15] VITALS: TEMP 98.3
[2020-05-31 18:30] VITALS: BP 127/62; O2SAT 97
--- NOTE | 2020-06-02 08:45 | EKG ---
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
== END 2020-05-31 17:42 | disposition home or self-care (01) ==
LOC: ER 14:47
DX: M62.830 Muscle spasm of back (principal); R51 Headache; I10 Essential (primary) hypertension; E11.9 Type 2 diabetes mellitus without complications; Z88.5 Allergy status to narcotic agent; Z95.1 Presence of aortocoronary bypass graft; Z95.818 Presence of other cardiac implants and grafts
CPT/HCPCS: 93005; 85025; 80048; 36415; 83735; 85610; 80076; 84484; 83880; 71045; 96375; 96374; 99284; J3010; J2405

== ENCOUNTER 2020-08-09 07:25 | Day surgery (SDC) | payer OTHER ==
[2020-08-05 11:40] LABS: Basophils % 1.1 % (0-1.3); Lymphocytes % 27.3 % (15.3-44.8); RBC Red Blood Cell Count 4.16 M/uL (3.86-4.86)
[2020-08-05 11:49] LABS: Protime INR 1.01
[2020-08-05 11:55] LABS: Potassium 4.2 mmol/L (3.5-5.1)
--- NOTE | 2020-08-06 09:33 | EKG ---
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
--- OUTSIDE RECORDS SUMMARY | 2020-08-09 07:36 | XMS REPORT | Clinical Summary ---
:1950 Author Organization [facility] Address [address] [place] [address] Care Team Providers Name Role Phone Peter Barreto Unavailable Allergies No Known Allergies Medications Medication Sig Dispensed Refills Start Date End Date Status aspirin 81 MG EC Take 81 mg by 0 Active tablet mouth daily. atorvastatin Take 40 mg by 0 Act benedict (LIPITOR) 40 MG mouth daily. tablet losartan (COZAAR) 25 Take 25 mg by 0 Active MG tablet mouth daily. metFORMIN Take 850 mg by 0 Activ e (GLUCOPHAGE) 850 MG mouth 2 (two) tablet times daily with breakfast and dinner. lisinopril Take 20 mg by 0 04/06/2019 Acti ve (PRINIVIL,ZESTRIL) mouth daily. 20 MG tablet acetaminophen-codein Take 1 tablet by 0 Active e (TYLENOL #3) mouth every 6 300-30 mg per tablet (six) hours as needed for Pain. metoprolol Take 1 tablet (25 60 tablet 11 08/04/2019 08/03/2020 (LOPRESSOR) 25 MG mg total) by tablet mouth 2 (two) times daily. traMADol (ULTRAM) 50 Take 1 tablet (50 30 tablet 0 08/04/2019 08/14/2019 mg tablet mg total) by mouth every 6 (six) hours as needed for up to 10 days. Max Daily Amount: 200 mg Active Problems Problem Noted Date S/P CABG x [address] 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 follow-up call 09/23/2019 Telephone Cardiology Helena Fung, RN 08/12/2019 Office Visit Cardiology Juan Gallardo Postoperati talha Fitzgerald MD (Primary Dx) after 08/09/2019 Family History Medical History Relation Name Comments [...] Assigned at Date Recorded Not on file Last Filed Vital Signs Vital Sign Reading Time Taken Comments Blood Pressure 120/59 08/12/2019 9:59 AM CDT Pulse 60 08/12/2019 9:59 AM CDT Temperature 36.4 C (97.6 F) 08/12/2019 9:59 AM CDT Respiratory Rate 18 08/12/2019 9:59 AM CDT Oxygen Saturation 98% 08/12/2019 9:59 AM CDT room a ir Inhaled Oxygen Concentration - - Weight 74.4 kg (164 lb) 08/12/2019 9:59 AM CDT Height 154.9 cm (5' 1") 08/12/2019 9:59 AM CDT Body Mass Index 30.99 08/12/2019 9:59 AM CDT Plan of Treatment Health Maintenance Due Date Last Done Comments BREAST CANCER SCREENING 1950 COLON CANCER SCREENING COLONOSCOPY 1950 PNEUMOCOCCAL 65+ YRS (1 of 1 - [id number]) 2016 MEDICARE ANNUAL WELLNESS (YEAR 2 or FIRST YEAR if no 10/15/2019 IPPE) INFLUENZA VACCINE (#1) 2020 Results Not on fileafter 08/09/2019 Insurance Payer Benefit Plan / Subscriber ID Effective Dates Phone Addre ss Type Group [employer] [id number] 2018-[employer] [place] , [id number] Advance Directives For more information, please contact: [phone] Code Status Date Activated Date Inactivated Comments Full Code 07/28/2019 8:31 PM 08/04/2019 5:22 PM This code status was determined by: Patient
--- OUTSIDE RECORDS SUMMARY | 2020-08-09 07:37 | XMS REPORT | Continuity of Care Document ---
:1950 Author Organization [facility] t Address [address] [place] [address] Care Team Providers Name Role Phone Kenton GARCIA, Helena Guzman Attending Clinician Unavailable Paulina KENNY, Lia Attending Clinician BLANCA MONIQUE Attending Clinician Unavailable BLANCA MONIQUE Admitting Clinician Unavailable Payers Payer Name Policy Type Policy Effective Date Expiration Date Sour ce Number TEXANPLUSTEXANPLUS O [id number] [id number] 2019-Pr 00:00:00 L 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 anemia anemia [facility] Hyperglyce Hyperglyce Disease Active [facility] Allergies, Adverse Reactions, Alerts This patient has no known allergies or adverse reactions. Family History Family Member Diagnosis Comments Start Date Stop Date Source Natural brother Heart disease [facility] Natural father Diabetes [facility] Natural father Heart disease [facility] Natural mother Diabetes [facility] Natural mother Heart disease [facility] Social History Social Habit Start Date Stop Date Quantity Comments Source [facility] Std Dr[facility] Medica l [place] History [facility] - Alcohol Binge Medical Tina ter Sex Assigned At [facility] Tobacco use and 2019-08-12 2019-08-12 Never used [facility] - exposure 00:00:00 00:00:00 [facility] Alcohol intake 2019-08-12 2019-08-12 Current [facility] - 00:00:00 00:00:00 non-drinker of Medical Ce nter alcohol (finding) History [facility] 2019-07-28 2019-07-28 1 [facility] - Alcohol Frequency 00:00:00 00:00:00 [facility] Smoking Status Start Date Stop Date Source Never smoker [facility] edical [place] Medications Ordered Filled Start Stop Current Ordering Indication Dosage Frequency Signature Comments Components Source Medication Medication Date Date Medication? Clinician (SIG) Name Name acetaminoph 2018-10 Yes 1{tbl} Take [address] en-codeine 0-30 tablet by Luke s - (TYLENOL 10:08: mouth Medical #3) 300-30 08 every 6 Center mg per (six) tablet hours as needed for Pain. aspirin 81 2018-10 Yes 81mg QD Take [address] MG EC 0-30 by mouth [facility] - tablet 10:06: daily. Medical [address] [place] [address] atorvastati 2018-10 Yes 40mg QD Take [address] n (LIPITOR) 0-30 by mouth Luke s - 40 MG 10:06: daily. Medical tablet [address] [place] [address] losartan 2018-10 Yes 25mg QD Take [address] (COZAAR) 25 0-30 by mouth Luke s - MG tablet 10:06: daily. Medica l [address] [place] [address] metFORMIN 2018-10 Yes 850mg Take [address] (GLUCOPHAGE 0-30 mg by [facility]ukes - ) 850 MG 10:06: mouth 2 Medica l tablet 08 (two) Center times daily with breakfast and dinner. metoprolol 2018-10- No 25mg Q.5D Take [address] (LOPRESSOR) 0-22 10-21 tablet (25 L ukes - 25 MG 00:00: 23:59 mg total) Medica l tablet 00 :00 by mouth 2 Center (two) times daily. traMADol 2018-10- No 50mg Take [address] (ULTRAM) 50 0-22 08-14 tablet (50 L ukes - mg tablet 00:00: 23:59 mg total) Me dical 00 :00 by mouth Center every 6 (six) hours as needed for up to 10 days. Max Daily Amount: 200 mg lisinopril Yes 20mg QD Take [address] (PRINIVIL,Z 6-24 by mouth Luke s - ESTRIL) 20 00:00: daily. Medic al MG tablet 00 Center Vital Signs Vital Name Observation Time Observation Value Comments Source Systolic blood 2019-08-12 09:59:00 120 mm[Hg] [facility] Diastolic blood 2019-08-12 09:59:00 59 mm[Hg] [facility] Heart rate 2019-08-12 09:59:00 60 /min [facility] Body temperature 2019-08-12 09:59:00 36.44 [place] [facility] Respiratory rate 2019-08-12 09:59:00 18 /min [facility] Body height 2019-08-12 09:59:00 154.9 cm [facility] Body weight 2019-08-12 09:59:00 74.39 kg [facility] BMI 2019-08-12 09:59:00 30.99 kg/m2 [facility] Oxygen saturation in 2019-08-12 09:59:00 98 /min room air [facility] Arterial blood by Medical Ce nter Pulse oximetry Procedures This patient has no known procedures. Plan of Care Planned Activity Planned Date Details Comments Source Future Scheduled 2020-06-14 INFLUENZA VACCINE (#1) [facility] Test 00:00:00 [code = INFLUENZA Medical Ce nter VACCINE (#1)] Future Scheduled 2019-10-15 MEDICARE ANNUAL [facility] St L ukes - Test 00:00:00 WELLNESS (YEAR 2 or Medical Center FIRST YEAR if no IPPE) [code = MEDICARE ANNUAL WELLNESS (YEAR 2 or FIRST YEAR if no IPPE)] Future Scheduled 2016 PNEUMOCOCCAL 65+ [facility] - Test 00:00:00 (1 of 1 - Medical Center [id number] PCV13) [code = PNEUMOCOCCAL 65+ YRS (1 of 1 - [id number] PCV13)] Future Scheduled [address] [facility] - Test 00:00:00 malignant neoplasm of [facility] breast (procedure) [code = 771806627] Future Scheduled [address] [facility] - Test 00:00:00 malignant neoplasm of [facility] colon (procedure) [code = 779354369] Results Test Description Test Time Test Comments Results Result Comments Source BASIC METABOLIC PANEL 2019-08-04 06:24:00 Test Item Value Reference Range Interpretation Comme nts SODIUM (BEAKER) (test code = 139 meq/L 136-145 381) POTASSIUM (BEAKER) (test code 4.0 meq/L 3.5-5.1 = 379) CHLORIDE (BEAKER) (test code = 105 meq/L 98-107 382) CO2 (BEAKER) (test code = 355) 30 meq/L 22-29 H BLOOD UREA NITROGEN (BEAKER) 8 mg/dL 7-21 (test code = 354) CREATININE (BEAKER) (test code 0.64 mg/dL 0.57-1.25 = 358) GLUCOSE RANDOM (BEAKER) (test 116 mg/dL 70-105 H code = 652) CALCIUM (BEAKER) (test code = 8.7 mg/dL 8.4-10.2 697) EGFR (BEAKER) (test code = I NSUFFICIENT CLINICAL DATA TO 1092) CALCULATE ESTIM ATED GFR. CBC (HEMOGRAM ONLY)2019-08-04 05:47:00 Test Item [...] 0-0 (BEAKER) (test code = 413) POCT-GLUCOSE [id number] 21:22:00 Test Item Value Reference Range Interpretation Comments POC-GLUCOSE METER 138 mg/dL 70-110 H TESTED AT [place] [address] ([facility]) (test code = [place] 1538) [address] POCT-GLUCOSE [id number] 17:38:00 Test Item Value Reference Range Interpretation Comments POC-GLUCOSE METER 131 mg/dL 70-110 H TESTED AT [place] [address] ([facility]) (test code = ERENDIRA Guzman [facility] 1538) [address] BASIC METABOLIC [id number] 06:07:00 Test Item Value Reference Range Interpretation [...] 1092) DATA TO CALCULA TE ESTIMATED GFR. [id number] 06:04:00 Test Item Value Reference Range Interpretation [...] BLOOD CELLS 1 /100 WBC 0-0 H (BEAKER) (test code = 413) POCT-GLUCOSE [id number] 23:10:00 Test Item Value Reference Range Interpretation Comments POC-GLUCOSE METER 127 mg/dL 70-110 H TESTED AT [facility] 67[address] (BEAKER) (test code = [place] 1538) [address] POCT-GLUCOSE [id number] 12:36:00 Test Item Value Reference Range Interpretation Comments POC-GLUCOSE METER 157 mg/dL 70-110 H TESTED AT [facility] 67[address] (BEAKER) (test code = [place] 1538) [address] CBC (HEMOGRAM ONLY)2019-08-02 06:03:00 Test Item Value [...] (BEAKER) (test code = 413) BASIC METABOLIC [id number] 05:47:00 Test Item Value Reference Range Interpretation [...] 1092) DATA TO CALCULA TE ESTIMATED GFR. [id number] 05:46:00 Test Item Value Reference Range Interpretation Comments PHOSPHORUS (BEAKER) (test code = 2.5 mg/dL 2.3-4.7 604) [id number] 05:46:00 Test Item Value Reference Range Interpretation Comments MAGNESIUM (BEAKER) (test code = 2.1 mg/dL 1.6-2.6 627) POCT-GLUCOSE [id number] 20:47:00 Test Item Value Reference Range Interpretation Comments POC-GLUCOSE METER 164 mg/dL 70-110 H TESTED AT [facility] 67[address] (BEAKER) (test code = ERENDIRA Guzman [facility] 1538) [address] POCT-GLUCOSE [id number] 17:38:00 Test Item Value Reference Range Interpretation Comments POC-GLUCOSE METER 194 mg/dL 70-110 H TESTED AT [facility] 67[address] (BEAKER) (test code = ERENDIRA Guzman [facility] 1538) [address] POCT-GLUCOSE [id number] 07:51:00 Test Item Value Reference Range Interpretation Comments POC-GLUCOSE METER 157 mg/dL 70-110 H TESTED AT [facility] 67[address] (BEAKER) (test code = [facility] Thomas [facility] 1538) [address] HEMOGLOBIN [id number] 07:51:00 Test Item Value Reference Range Interpretation Comments HEMOGLOBIN A1C (BEAKER) (test code = 8.6 % 4.3-6.1 H 368) BASIC METABOLIC [id number] 06:11:00 Test Item Value Reference Range Interpretation [...] 1092) DATA TO CALCULA TE ESTIMATED GFR. [id number] 06:10:00 Test Item Value Reference Range Interpretation Comments PHOSPHORUS (BEAKER) (test code = 1.9 mg/dL 2.3-4.7 L 604) [id number] 06:10:00 Test Item Value Reference Range Interpretation [...] 0-0 (BEAKER) (test code = 413) POCT-GLUCOSE [id number] 22:07:00 Test Item Value Reference Range Interpretation Comments POC-GLUCOSE METER 175 mg/dL 70-110 H TESTED AT [facility] 67[address] (BEAKER) (test code = [place]ENDIRA [place] 1538) [address] POCT-GLUCOSE [id number] 18:30:00 Test Item Value Reference Range Interpretation Comments POC-GLUCOSE METER 225 mg/dL 70-110 H TESTED AT [facility] 67[address] (BEAKER) (test code = ERENDIRA Guzman [facility] 1538) [address] POCT-GLUCOSE [id number] 12:17:00 Test Item Value Reference Range Interpretation Comments POC-GLUCOSE METER 170 mg/dL 70-110 H TESTED AT [facility] 67[address] (BEAKER) (test code = ERENDIRA Guzman [facility] 1538) [address] POCT-GLUCOSE [id number] 08:20:00 Test Item Value Reference Range Interpretation Comments POC-GLUCOSE METER 161 mg/dL 70-110 H TESTED AT [facility] 67 (BEAKER) (test code = ERENDIRA Guzman [facility] 1538) [address] BASIC METABOLIC [id number] 08:18:00 Test Item Value Reference Range Interpretation [...] 1092) DATA TO CALCULA TE ESTIMATED GFR. [id number] 08:15:00 Test Item Value Reference Range Interpretation Comments MAGNESIUM (BEAKER) 1.9 mg/dL 1.6-2.6 Specimen slightly (test code = 627) hemolyzed [id number] 08:15:00 Test Item Value Reference Range Interpretation Comments PHOSPHORUS (BEAKER) 2.3 mg/dL 2.3-4.7 Specimen slightly (test code = 604) hemolyzed RAD, CHEST, 1 VIEW, NON [id number] 07:56:00Reason for exam:->post-op cardiac surgeryShould this be [...] MDReport Verified Date/Time: 07/31/2019 07:56:15 Reading Location: [facility] Radiology Reading Room [id number] 07:25:00 Test Item Value Reference Range Interpretation [...] = 8.9 GM/DL 11.2-15.7 L 410) HEMATOCRIT ([facility]) (test code = 28.6 % 34.1-44.9 L 411) MEAN CORPUSCULAR VOLUME (AKER) 104.4 fL 79.4-94.8 H (test code = 753) MEAN CORPUSCULAR HEMOGLOBIN 32.5 pg 25.6-32.2 H (AKER) (test code = 751) MEAN CORPUSCULAR HEMOGLOBIN CONC 31.1 GM/DL 32.2-35.5 L (AKER) (test code = 752) RED CELL DISTRIBUTION WIDTH 19.2 % 11.7-14.4 H (AKER) (test code = 412) PLATELET COUNT ([facility]) (test 218 K/CU MM 150-450 code = 756) MEAN PLATELET VOLUME (AKER) 11.0 fL 9.4-12.3 (test code = 754) NUCLEATED RED BLOOD CELLS 0 /100 WBC 0-0 ([facility]) (test code = 413) POCT-GLUCOSE [id number] 21:32:00 Test Item Value Reference Range Interpretation Comments POC-GLUCOSE METER 168 mg/dL 70-110 H TESTED AT [place] [address] ([facility]) (test code = ERENDIRA Guzman [place] 1538) [address] POCT-GLUCOSE [id number] 17:55:00 Test Item Value Reference Range Interpretation Comments POC-GLUCOSE METER 172 mg/dL 70-110 H TESTED AT [place] [address] ([facility]) (test code = ERENDIRA Guzman [place] 1538) [address] POCT-GLUCOSE [id number] 15:34:00 Test Item Value Reference Range Interpretation Comments POC-GLUCOSE METER 152 mg/dL 70-110 H TESTED AT [place] [address] ([facility]) (test code = ERENDIRA Guzman [place] 1538) [address] POCT-GLUCOSE [id number] 12:52:00 Test Item Value Reference Range Interpretation Comments POC-GLUCOSE METER 222 mg/dL 70-110 H TESTED AT [place] [address] ([facility]) (test code = ERENDIRA Guzman [place] 1538) [address] POCT-GLUCOSE [id number] 07:19:00 Test Item Value Reference Range Interpretation Comments POC-GLUCOSE METER 185 mg/dL 70-110 H TESTED AT [place] [address] ([facility]) (test code = ERENDIRA Guzman [facility] 1538) [address] [id number] 06:16:00 Test Item Value Reference Range Interpretation Comments ACTIVATED CLOTTING TIME 109 sec Refe rence Range: (BEAKER) (test code = 74-137 seconds, 441) Baseline/TESTED AT [facility] [address] [facility] [address] [id number] 06:16:00 Test Item Value Reference Range Interpretation Comments ACTIVATED CLOTTING TIME 543 sec Refe rence Range: (BEAKER) (test code = 74-137 seconds, 441) Baseline/TESTED AT [facility] [address] [facility] [address] [id number] 06:16:00 Test Item Value Reference Range Interpretation Comments ACTIVATED CLOTTING TIME 510 sec Refe rence Range: (BEAKER) (test code = 74-137 seconds, 441) Baseline/TESTED AT [facility] [address] [facility] [address] BASIC METABOLIC [id number] 06:04:00 Test Item Value Reference Range Interpretation [...] 1092) DATA TO CALCULA TE ESTIMATED GFR. [id number] 06:02:00 Test Item Value Reference Range Interpretation Comments PHOSPHORUS (BEAKER) (test code = 3.7 mg/dL 2.3-4.7 604) [id number] 06:02:00 Test Item Value Reference Range Interpretation Comments MAGNESIUM (BEAKER) (test code = 2.0 mg/dL 1.6-2.6 627) [id number] 05:57:00 Test Item Value Reference Range Interpretation [...] is2.5-3.5 for patients wiht mechanical heart valves.PROTHROMBIN [id number] 05:56:00 Test Item Value Reference Range Interpretation [...] is2.5-3.5 for patients wiht mechanical heart valves.CALCIUM, [id number] 05:55:00 Test Item Value Reference Range Interpretation Comments CALCIUM IONIZED (BEAKER) (test 1.17 mmol/L 1.12-1.27 code = 698) PH, BLOOD (BEAKER) (test code = 7.38 1810) CBC W/PLT COUNT & AUTO [id number] 05:55:00 Test Item Value Reference Range Interpretation [...] 0-1 PERCENT (BEAKER) (test code = 2801) OXYGEN SATURATION, [id number] 05:49:00 Test Item Value Reference Range Interpretation Comments O2 SATURATION (MEASURED) (BEAKER) 77.2 % (test code = 1455) RAD CHEST, 1 VIEW, NON [id number] 05:35:00Reason for exam:->post-op cardiac surgeryShould this be [...] Signed: Ottoniel Brand Verified Date/Time: 07/30/2019 05:35:16 [id number] 18:41:00 Test Item Value Reference Range Interpretation Comments POTASSIUM (BEAKER) (test code = 4.2 meq/L 3.5-5.1 379) PRN - repeat potassium levels every 1 hour until glucose level is less than 450 mg/dLPOCT-GLUCOSE [id number] 18:14:00 Test Item Value Reference Range Interpretation Comments POC-GLUCOSE METER 175 mg/dL 70-110 H TESTED AT [facility] 6720 (BEAKER) (test code = ERENDIRA Guzman [facility] 1538) [address] BLOOD GAS, [id number] 16:57:00 Test Item Value Reference Range Interpretation [...] (test code = 1819) 40.0 % HEMOGLOBIN [id number] 16:17:00 Test Item Value Reference Range Interpretation Comments HEMOGLOBIN A1C ([facility]) (test code = 9.5 % 4.3-6.1 H 368) PLATELET AGGREGATION: FUNCTION [id number] 15:15:00 Test Item Value Reference Range Interpretation Comments [id number] Giovanni Tee M.D. ([facility]) (test code = (electonic signature) 3952) PLATELET COUNT AGG 273 K/CU MM 150-450 (BEAKER) (test code = 2656) PLATELET RICH 258 k/cu mm 200-300 PLASMA([facility]) (test code = 2134) PLATELET FUNCTION Pattern of SCREEN INTERPRETATION disaggregation present ([facility]) (test code = with ADP which may be 4655) characteristic of P2Y12 inhibitor effect. Correlation with medication history is required. Platelet Function Screen results may be falsely low with platelet counts<75,000/cu mm.POCT-GLUCOSE [id number] 15:07:00 Test Item Value Reference Range Interpretation Comments POC-GLUCOSE METER 125 mg/dL 70-110 H TESTED AT [place] [address] ([facility]) (test code = [facility] 1538) [address] POCT-GLUCOSE [id number] 14:26:00 Test Item Value Reference Range Interpretation Comments POC-GLUCOSE METER 85 mg/dL 70-110 TESTED AT [place] [address] ([facility]) (test code = [facility] [address] 1538) POCT-GLUCOSE [id number] 14:14:00 Test Item Value Reference Range Interpretation Comments POC-GLUCOSE METER 88 mg/dL 70-110 TESTED AT [place] [address] ([facility]) (test code = [facility] [address] 1538) RAD, CHEST, 1 VIEW, NON [id number] 13:11:00Reason for exam:->Status post CV Surgery post [...] Akbar MDReport VerifiedDate/Time: 07/29/2019 13:11:13 Reading Location: [facility] Reading Room POCT-GLUCOSE METER 2019-07-29 13:00:00 Test Item Value Reference Range Interpretation Comments POC-GLUCOSE METER 132 mg/dL 70-110 H TESTED AT [facility] 6720 (BEAKER) (test code = ERENDIRA Guzman [place] 1538) [address] BASIC METABOLIC [id number] 12:28:00 Test Item Value Reference Range Interpretation [...] 1092) DATA TO CALCULA TE ESTIMATED GFR. [id number] 12:27:00 Test Item Value Reference Range Interpretation Comments PHOSPHORUS (BEAKER) (test code = 2.3 mg/dL 2.3-4.7 604) [id number] 12:27:00 Test Item Value Reference Range Interpretation Comments MAGNESIUM (BEAKER) (test code = 2.6 mg/dL 1.6-2.6 627) [id number] 12:26:00 Test Item Value Reference Range Interpretation Comments PARTIAL THROMBOPLASTIN TIME 27.4 seconds 22.5-36.0 (BEAKER) (test code = 760) PROTHROMBIN [id number] 12:25:00 Test Item Value Reference Range Interpretation [...] for patients wiht mechanical heart valves.LACTIC ACID, [id number] 12:21:00 Test Item Value Reference Range Interpretation Comments LACTATE BLOOD ARTERIAL (2) 1.2 mmol/L 0.5-2.2 (BEAKER) (test code = 2874) CBC W/PLT COUNT & AUTO [id number] 12:08:00 Test Item Value Reference Range Interpretation [...] PERCENT (BEAKER) (test code = 2801) CALCIUM, [id number] 12:04:00 Test Item Value Reference Range Interpretation Comments CALCIUM IONIZED (BEAKER) (test 1.15 mmol/L 1.12-1.27 code = 698) PH, BLOOD (BEAKER) (test code = 7.44 1810) BLOOD GAS, [id number] 12:03:00 Test Item Value Reference Range Interpretation [...] code = 1819) 60.0 % OXYGEN SATURATION, [id number] 12:00:00 Test Item Value Reference Range Interpretation Comments O2 SATURATION (MEASURED) (BEAKER) 66.6 % (test code = 1455) For occult [id number] 11:53:00 Test Item Value Reference Range Interpretation Comments PHOSPHORUS (BEAKER) (test code = 2.9 mg/dL 2.3-4.7 604) CALCIUM, [id number] 10:32:00 Test Item Value Reference Range Interpretation Comments CALCIUM IONIZED (BEAKER) (test 1.03 mmol/L 1.12-1.27 L code = 698) PH, BLOOD (BEAKER) (test code = 7.33 1810) BLOOD GAS, [id number] 10:31:00 Test Item Value Reference Range Interpretation [...] code = 1819) 100.0 % SODIUM NA-STAT [id number] 10:31:00 Test Item Value Reference Range Interpretation Comments SODIUM (BEAKER) (test code = 381) 133 meq/L 135-148 L GLUCOSE-STAT [id number] 10:31:00 Test Item Value Reference Range Interpretation Comments GLUCOSE RANDOM (BEAKER) (test code 226 mg/dL 70-110 H = 652) HGB/HCT (H&H) - STAT [id number] 10:31:00 Test Item Value Reference Range Interpretation Comments HEMOGLOBIN (BEAKER) (test code = 8.0 g/dL 12.0-15.0 L 410) HEMATOCRIT (BEAKER) (test code = 24.0 % 36.0-45.0 L 411) POTASSIUM-STAT [id number] 10:30:00 Test Item Value Reference Range Interpretation Comments POTASSIUM (BEAKER) (test code = 4.2 meq/L 3.6-5.5 379) BLOOD GAS, [id number] 10:05:00 Test Item Value Reference Range Interpretation [...] code = 1819) 80.0 % SODIUM NA-STAT [id number] 10:05:00 Test Item Value Reference Range Interpretation Comments SODIUM (BEAKER) (test code = 381) 127 meq/L 135-148 L POTASSIUM-STAT [id number] 10:05:00 Test Item Value Reference Range Interpretation Comments POTASSIUM (BEAKER) (test code = 5.9 meq/L 3.6-5.5 H 379) GLUCOSE-STAT [id number] 10:05:00 Test Item Value Reference Range Interpretation Comments GLUCOSE RANDOM (BEAKER) (test code 241 mg/dL 70-110 H = 652) HGB/HCT (H&H) - STAT [id number] 10:05:00 Test Item Value Reference Range Interpretation Comments HEMOGLOBIN (BEAKER) (test code = 8.0 g/dL 12.0-15.0 L 410) HEMATOCRIT (BEAKER) (test code = 24.0 % 36.0-45.0 L 411) BLOOD GAS, [id number] 09:51:00 Test Item Value Reference Range Interpretation [...] code = 1819) 80.0 % SODIUM NA-STAT [id number] 09:51:00 Test Item Value Reference Range Interpretation Comments SODIUM (BEAKER) (test code = 381) 130 meq/L 135-148 L GLUCOSE-STAT [id number] 09:51:00 Test Item Value Reference Range Interpretation Comments GLUCOSE RANDOM (BEAKER) (test code 249 mg/dL 70-110 H = 652) HGB/HCT (H&H) - STAT [id number] 09:51:00 Test Item Value Reference Range Interpretation Comments HEMOGLOBIN (BEAKER) (test code = 8.1 g/dL 12.0-15.0 L 410) HEMATOCRIT (BEAKER) (test code = 24.0 % 36.0-45.0 L 411) POTASSIUM-STAT [id number] 09:50:00 Test Item Value Reference Range Interpretation Comments POTASSIUM (BEAKER) (test code = 5.4 meq/L 3.6-5.5 379) BLOOD GAS, [id number] 09:23:00 Test Item Value Reference Range Interpretation [...] code = 1819) 100.0 % SODIUM NA-STAT [id number] 09:23:00 Test Item Value Reference Range Interpretation Comments SODIUM (BEAKER) (test code = 381) 132 meq/L 135-148 L GLUCOSE-STAT [id number] 09:23:00 Test Item Value Reference Range Interpretation Comments GLUCOSE RANDOM (BEAKER) (test code 164 mg/dL 70-110 H = 652) CALCIUM, [id number] 09:23:00 Test Item Value Reference Range Interpretation Comments CALCIUM IONIZED (BEAKER) (test 1.05 mmol/L 1.12-1.27 L code = 698) PH, BLOOD (BEAKER) (test code = 7.44 1810) POTASSIUM-STAT [id number] 09:22:00 Test Item Value Reference Range Interpretation Comments POTASSIUM (BEAKER) (test code = 4.0 meq/L 3.6-5.5 379) HGB/HCT (H&H) - STAT [id number] 09:22:00 Test Item Value Reference Range Interpretation Comments HEMOGLOBIN (BEAKER) (test code = 12.2 g/dL 12.0-15.0 410) HEMATOCRIT (BEAKER) (test code = 36.0 % 36.0-45.0 411) RAD, CHEST, 1 VIEW, NON [id number] 07:12:00Reason for exam:->preopShould this be performed at the bedside?->YesFINAL REPORT INDICATION: preop COMPARISON: None TECHNIQUE: Single frontal view of the chest. FINDINGS: Lungs and pleura: Clear lungs. No effusion.Heart and mediastinum: Normal heart size. Unremarkable mediastinal contours.Osseous structures: No acute abnormality.Other: None. IMPRESSION: No acute intrathoracic abnormality. Signed: [facility] Verified Date/Time: 07/29/2019 07:12:45 [id number] 07:01:00 Test Item Value Reference Range Interpretation Comments PARTIAL THROMBOPLASTIN TIME 31.2 seconds 22.5-36.0 (BEAKER) (test code = 760) BASIC METABOLIC [id number] 05:57:00 Test Item Value Reference Range Interpretation [...] 1092) DATA TO CALCULA TE ESTIMATED GFR. [id number] 05:51:00 Test Item Value Reference Range Interpretation Comments MAGNESIUM (BEAKER) (test code = 1.9 mg/dL 1.6-2.6 627) PT/[id number] 05:35:00 Test Item Value Reference Range Interpretation [...] is2.5-3.5 for patients wiht mechanical heart valves.PROTHROMBIN TIME/[id number] 05:34:00 Test Item Value Reference Range Interpretation [...] mechanical heart valves.CBC W/PLT COUNT & AUTO [id number] 05:24:00 Test Item Value Reference Range Interpretation [...]
[2020-08-09] MEDS ORDERED: NA CHLORIDE 0.9% 500 ML ONE (07:49)
[2020-08-09] MEDS ORDERED: LIDOCAINE 1% 20 ML MDV ONE ×2 (09:08→09:09)
[2020-08-09] MEDS ORDERED: FENTANYL CITR 100 MCG/2 ML ONE (09:09)
[2020-08-09] MEDS ORDERED: ATROPINE SULF 1 MG/10 ML SYR IV ONE (09:09)
[2020-08-09] MEDS ORDERED: MIDAZOLAM HCL 2 MG/2 ML INJ ONE ×2 (09:09→09:32)
[2020-08-09] MEDS ORDERED: HEPARIN 5000 UNIT/ML 1 ML VIAL ONE (10:04)
[2020-08-09 10:49] VITALS: TEMP 97.6
[2020-08-09] MEDS ORDERED: cloNIDine HCL 0.1 MG TAB PO ONE (10:59)
[2020-08-09 11:35] VITALS: O2SAT 98
[2020-08-09 11:55] VITALS: BP 150/61
--- NOTE | 2020-08-09 12:59 | OP ---
Surgeon: Alden Shook MD Hvac Mechanic: Elsa Vazquez. Reason For Admission: Need for selective bilateral carotid angiograms. Indication: Cerebrovascular disease. Ms. Calderon is 70, has had a history of CABG in the past, recent ly had an RCA stent in February 2020. Has hypertension, dyslipidemia, history of tobacco use, family hist ory of heart disease. Last stress test prior to February 2020, was in 2019 and was unremarkable. She was found to have severe cerebrovascular disease by carotid Doppler on routine carotid followup. Robbie t to the cathode builder today as an outpatient, prepped and draped in the routine sterile fashion. Given V ersed and fentanyl for sedation. She was given 2500 units of heparin IV. A 6-Italian sheath was intr oduced in the right common femoral artery successfully. Angio-Seal was used to close the case. Renee ography there was normal. A JR4 catheter was used to select the right common carotid artery and the left common carotid artery. The results were normal bilateral common carotid. She had a 50% right I CA. She had an 80% left ICA, 80% left ECA. There were no complications or blood loss. Total consci ous sedation was 30 minutes. Postoperative Diagnosis: Severe cerebrovascular accident in the left internal carotid artery. Plan: Left carotid endarterectomy. MARGUERITE/RIANNA Voice ID: [id number] Report ID: [id number]
== END 2020-08-09 11:58 | disposition home or self-care (01) ==
LOC: CCL 07:25
DX: I65.23 Occlusion and stenosis of bilateral carotid arteries (principal); I25.10 Atherosclerotic heart disease of native coronary artery without angina pectoris; I10 Essential (primary) hypertension; E11.9 Type 2 diabetes mellitus without complications; E78.2 Mixed hyperlipidemia; Z95.1 Presence of aortocoronary bypass graft; Z87.891 Personal history of nicotine dependence; Z20.828 Contact with and (suspected) exposure to other viral communicable diseases
CPT/HCPCS: 93005; 85025; 80048; 36415; 85610; 82947; 85730; 36222; U0002; C1893; C1760; J1644; J2250; J3010; J7040

== ENCOUNTER 2021-06-14 18:32 | Emergency (ER) | payer OTHER ==
--- OUTSIDE RECORDS SUMMARY | 2021-06-14 18:36 | XMS REPORT | Continuity of Care Document ---
:1950 Author Organization [facility] t Address [address] [place] [address] Care Team Providers Name Role Phone Juan Gallardo MD Attending Clinician [phone] EVELYN GALLARDO Attending Clinician Unavailable Marleni Moe MD Attending Clinician BLANCA MONIQUE Attending Clinician Unavailable EVELYN GALLARDO Admitting Clinician Unavailable BLANCA MONIQUE Admitting Clinician Unavailable Payers Payer Name Policy Type Policy Number Effective Date Expiration Date S ource Problems Condition Condition Condition Status Onset Resolution Last Treating Co mments Source Name Details Category Date Date Treatment Clinician Date Left Left Disease Active 2019-[address] [facility] carotid carotid 2-07 [facility] - artery artery 00:00: Medical stenosis stenosis 00 Center S/P CABG x S/P CABG x Disease Active 2018-[address] 1 by 1 by 0-16 Reji Gallardo on [facility] on 00:00: Me dical 07/29/2019 07/29/2019 00 Ce nter Coronary Coronary Disease Active 2018-10 [facility] artery artery 0-15 kes - disease disease 00:00: Medical 00 Center Acute Acute Disease Active [facility] respirator respirator Daniela kes - y y Medical insufficie insufficie Ce nter ncy ncy Acute Acute Disease Active [facility] blood loss blood loss [facility] - anemia anemia [facility] Hyperglyce Hyperglyce Disease Active [facility] Chronic Chronic Disease Active [facility] hypertensi hypertensi Daniela kes - on on Medical Center Allergies, Adverse Reactions, Alerts Allergy Allergy Status Severity Reaction(s) Onset Inactive Treating Comm ents Source Name Type Date Date Clinician Morphine Propensi Active 2019-[address] ty to 2- [facility] - adverse 00:00: Medical reaction 00 Center s Family History Family Member Diagnosis Comments Start Date Stop Date Source Natural brother Heart attack [facility] Natural father Diabetes [facility] Natural father Heart disease [facility] Natural mother Diabetes [facility] Natural mother Heart attack [facility] Social History Social Habit Start Date Stop Date Quantity Comments Source History [facility] - Alcohol Std Drinks Medica [facility] History [facility] - Alcohol Binge Medical Tina ter Sex Assigned At [facility] Medical [place] Tobacco use and 2020-10-03 2020-10-03 Never used [facility] - exposure 00:00:00 00:00:00 [facility] Alcohol intake 2020-10-03 2020-10-03 Current [facility] [place] [facility] - 00:00:00 00:00:00 non-drinker of Medical Ce nter alcohol (finding) History [facility] 2019-07-28 2019-07-28 [address] [facility] - Alcohol Frequency 00:00:00 00:00:00 [facility] Center Smoking Status Start Date Stop Date Source Never smoker [facility] [place] Medications Ordered Filled Start Stop Current Ordering Indication Dosage Frequency Signature Comments Components Source Medication Medication Date Date Medication? Clinician (SIG) Name Name aspirin 81 2019-10 Yes 81mg QD Take [address] MG EC 2-21 by mouth [facility] - tablet 11:03: daily. Medical Center atorvastati 2019-10 Yes 80mg QD Take [address] n (LIPITOR) 2-21 by mouth Luke s - 40 MG 11:03: daily . Medical tablet 52 Center metFORMIN 2019-10 Yes 850mg Take [address] (GLUCOPHAGE 2-21 mg by [facility]ukes - ) 850 MG 11:03: mouth 2 Medica l tablet 52 (two) Center times daily with breakfast and dinner. clopidogreL 2019-10 Yes 75mg QD Take [address] (PLAVIX) 75 2-21 by mouth Luke s - mg tablet 11:03: daily. Medica l 52 Center metoprolol 2019-10 Yes 25mg Q.5D Take [address] tartrate 2-21 by mouth 2 [facility] - (LOPRESSOR) 11:03: (two) Medic al 25 MG 52 times Center tablet daily. traMADoL 2019-10 Yes 50mg Take [address] (ULTRAM) 50 2-08 by mouth Luke s - mg tablet 00:00: every 6 Medic al 00 (six) Center hours as needed for pain. losartan 2019-10 No 25mg QD Take [address] (COZAAR) 25 11-14 by mouth Dhruv es - MG tablet 13:32: 00:00 daily. Medic al 26 :00 [place] acetaminoph 2019-10 No 1{tbl} Take [address] en-codeine 11-14 tablet by Dhruv es - (TYLENOL 13:32: 00:00 mouth Medical #3) 300-30 20 :00 every 6 Center mg per (six) tablet hours as needed for Pain. Levemir 2019-10 Yes 15U QD Inject 15 [facility] t FlexTouch 1-04 Units [facility]ukes - U-100 00:00: subcutaneo Medica l Insuln [address] [facility] unit/mL (3 nightly. mL) InPn injection citalopram 2019-10 Yes 20mg QD Take [address] (CeleXA) 20 0-14 by mouth Luke s - MG tablet 00:00: daily. Medica l 00 [place] metoprolol 2018-10 25mg Q.5D Take [address] (LOPRESSOR) 0-22 10-21 tablet (25 L ukes - 25 MG 00:00: 23:59 mg total) Medica l tablet 00 :00 by mouth 2 Center (two) times daily. lisinopril Yes 40mg QD Take [address] (PRINIVIL,Z 6-24 by mouth Luke s - ESTRIL) 20 00:00: daily . Medi albert MG tablet 00 Center Vital Signs Vital Name Observation Time Observation Value Comments Source Systolic blood 2020-10-03 11:00:00 171 mm[Hg] [facility] Diastolic blood 2020-10-03 11:00:00 71 mm[Hg] [facility] Heart rate 2020-10-03 11:00:00 78 /min [facility] Body temperature 2020-10-03 11:00:00 37 [place] [facility] Respiratory rate 2020-10-03 11:00:00 18 /min [facility] Body height 2020-10-03 11:00:00 154.9 cm [facility] Body weight 2020-10-03 11:00:00 75.297 kg [facility] BMI 2020-10-03 11:00:00 31.37 kg/m2 [facility] Oxygen saturation in 2020-10-03 11:00:00 98 /min room air [facility] Arterial blood by Medical Ce nter Pulse oximetry Procedures Procedure Date / Time Performed Performing Clinician Sour e POCT-GLUCOSE METER 2020-09-20 11:36:00 Juan Gallardo [facility] POCT-GLUCOSE METER 2020-09-20 07:33:00 Juan Gallardo [facility] CBC W/PLT COUNT & AUTO 2020-09-20 00:18:00 Judah Jasminenoemy [facility] BASIC METABOLIC PANEL 2020-09-20 00:18:00 Vanessa Jasmine [facility] () [facility] MAGNESIUM 2020-09-20 00:18:00 [place] [facility] PHOSPHORUS 2020-09-20 00:18:00 [facility] CALCIUM, IONIZED 2020-09-20 00:18:00 [facility] TISSUE EXAM 2020-09-19 14:54:[address] [facility] POCT-ACT 2020-09-19 14:15:[address] [facility] POCT-ACT 2020-09-19 14:03:[address] [facility] ENDARTERECTOMY,CAROTID 2020-09-19 12:52:00 Juan Gallardo [facility] PROTHROMBIN TIME/INR 2020-09-19 10:22:00 Vanessa Jasmine [facility] APTT 2020-09-19 10:22:00 Mitali [facility] POCT-GLUCOSE METER 2020-09-19 09:06:[address] [facility] - [facility] CBC W/PLT COUNT & AUTO 2020-09-13 14:52:00 PaulinaJuan galindo CHI Reji - DIFFERENTIAL [facility] BASIC METABOLIC PANEL 2020-09-13 14:52:00 PaulinaJuan galindo JEOVANY Ad t [facility] - (7) [facility] PROTHROMBIN TIME/INR 2020-09-13 14:52:[address] [facility] TYPE AND SCREEN, 2020-09-13 14:52:[address] Dhruv es - AUTOMATED [facility] ECG 12-LEAD 2020-09-13 14:37:40 Juan Gallardo JEOVANY Watsonke s [facility] Plan of Care Planned Activity Planned Date Details Comments Source Future Scheduled 2020-10-[address] [facility] - Test 00:00:00 (12+) [code = Medical Center DEPRESSION SCREENING (12+)] Future Scheduled 2020-06-[address] [facility] - Test 00:00:00 (#1) [code = Medical Center INFLUENZA VACCINE (#1)] Future Scheduled 2019-10-[address] [facility] - Test 00:00:00 WELLNESS (YEAR 2 or Medical Center FIRST YEAR if no IPPE) [code = MEDICARE ANNUAL WELLNESS (YEAR 2 or FIRST YEAR if no IPPE)] Future Scheduled 2001 SHINGLES VACCINES ([address] [facility] - Test 00:00:00 of 2) [code = Medical Center SHINGLES VACCINES (1 of 2)] Future Scheduled 1970 DTAP/TDAP/TD VACCINES [facility] - Test 00:00:00 (1 - Tdap) [code = Medical C enter DTAP/TDAP/TD VACCINES (1 - Tdap)] Future Scheduled 1969 HEPATITIS C SCREENING [facility] - Test 00:00:00 [code = HEPATITIS C Medical Center SCREENING] Future Scheduled [address] [facility] - Test 00:00:00 [facility] breast (procedure) [code = 218005729] Future Scheduled [address] [facility] - Test 00:00:00 malignant neoplasm of Medica l Center colon (procedure) [code = 771908504] Encounters Start End Encounter Admission Attending Care Care Encounter Source Date/Time Date/Time Type Type Clinicians Facility Department ID 2020-10-03 2020-10-04 Office Paulina [facility] [id number] 10:58:57 06:55:34 Visit [facility] 2020-09-19 2020-09-20 Hospital Paulina [facility] [id number] 08:52:00 16:45:00 Encounter [facility] 2020-09-19 2020-09-19 [id number] 13:06:00 15:11:00 Event Maribell Yepez [facility] 2020-09-19 2020-09-19 [facility] [id number] 11:00:00 14:00:00 [facility] 2020-09-16 2020-09-16 [facility] [id number] 00:00:00 00:00:00 [facility] 2020-09-13 2020-09-13 [facility] [id number] 14:23:27 14:53:27 Visit [facility] 2020-09-13 2020-09-13 Orders [facility] [id number] 00:00:00 00:00:00 Only [facility] Results Test Description Test Time Test Comments Results Result Comments Source Tissue Exam 2020-09-23 18:50:00 Test Item Value Reference Range Interpretation Comme nts Case Report (test code = 104) Surgical Pathology Report Case: [id number] Authorizing Provider: Juan Gallardo, Collected: 09/19/2020 02:54 PM Ordering Location: [facility] Received: 09/19/2020 03:32 PM PERIOPERATIVE SERVICES Pathologist: Jarad Menchaca MD Specimen: Plaque, LEFT CAROTID ARTERY PLAQUE DIAGNOSIS (test code = 3220) s6hacNWmAWMkx9zmHUNcoOMvVtNoLyTzPeTsJd pc dWMxIHtccnRmMVxlcGljOTIwMFxhbnNpXHNwbHRw I1AkwdqlLEgyNN6jBF4aqOjhlTNbwSVgPYPnUcAn p1vna827iCRxl8wfYIUQcjtebRc1uOlzO57yf6G1 MnnfV27ewNZrVNanzIVamlrylrLbTQFIYEYARHox XECIIBENCQQUHBxWJCYNBtEXDaOGLeVIYS9LEPtd xSAvYUXUOVEEWviZGOGZNQFVT7FWHFSPH6BQWjCG EBSDTFBqWXCptx77HUF8ChEln9K1WWO5JWRwNWJu r8vpSNDrlJPeAgYrVsHqBiXeZbngxEWnGNLrZnEt k3ibk562nATio8opWWCwEpR6sUXpWOKazOHsH799 NTTdQBako7njc4WvCTWdjGKao4T9KVYUgsgmmHq7 yLuoH84xu7Z2TfyvX9lbEETcLGTkQ7QkTP5dQWFz Yyn9YBF5KIX1VDSiBCSnZ5JrRK0rVYNioHAiAUp9 z4gssXohOTWgSSD0w3owLWdmfdNlGD4vvg6pcMa7 k8cglyVnMUNvCMFmjBNTBOQbH2HrhEfbLj6voLi1 eCeaFepdVDX0Vnn4KE2gnb59uzu2jWlrUGYrwwft OyM8KDgsMWZdoinsWXe6WZraGDLptCL8IWKgwSQq C9DvPPIaNI0omhy8AEJ0OKkrDMAsYtH6MEVciTPv PQDqsQhrGQdct932HSH2VtSpSI6rY4Ouh0V6mK4l dQZdGRDazJJkGuZgOLDgoi8yuXPjBHuez3QzBUH6 veI1tZSxxYByVHUkEoV5ZXbeWD8tzz82VEPfAQJ7 en5jvRIpcFmnlwBpkEMyUQjfH4EzNFFis558EXFm J5ZiWSEqt6H4ytApBzJyPOEpeIY4qjT4XPKwEZ5w zqvxr2xdFSyiITgjMRCrcbV8clM5KUMjfDMkZ9Uz nN7vGOVvOO4jjtimh3jaGWU7OBvyAPZxLXA5FdFs RSEgs3Aypjb9KvAwk5CjiWQxKMtgB43ui101QXEi yiBsD8dzsXUpuqrgsPScfbjmXLfhnlD1SQHoMCdp vledUPEmKVgcO5edNdRdHYIkcTqkNEhnq8VbTNDd CHQaQyHigSQwVTQaGjg7UFEnrHEyMVOnGvWlN7ra huylAxLJIEXun8oxM2wvpJMYsBFeY1ItNDrypdOe NGsyNQgyFIKdICC2KK17VvrqVJXvth16 CPT Code(s) (test code = 4537) m0rxuBFfWYUjdBQ8NfVeDBNtb9inr3OjrWEc cGFy QOseuIYndzKjfg97wON0rZ56EB7eKCYeBjL0GNRe sdH4Jps4DWQhHVKbjWIoO436z3lis9ljhbRbyWH0 mRqmDFEwKXZjPQeyEJXuZoTgBIiuDYZ2LOp5QtBb XHBhcn0= CLINICAL HISTORY (test code = 0756) e3ajeJOtYNYnnHE3PnZqNVGhh1sme1W sdHBncGFy QMnkuQPsuiErmy02mQY3xK61PL3wWVNwNeU4CPIh skZ1Trp5SJLcTMQfmYWzD566a2jrw5lnxvUelVU9 kDdmWRUvFGPcYOmgHGMfBrEcHNShc1QaGJunP11l e1yfXlIdgIFhdXUePWWliPvcVTQ5ZY1bb3dlCHNc cn0= SPECIMEN SOURCE (test code = 3377) r6ftlTDrOZIwbBR7EnXsXLAmx9ngo1Tp dHBncGFy TNqvvVHfwuAkgx61qLO0xB58YD7mGENuQrK5SVMq zjP1Jmh4PAPrRGGykZIoP902g9pxo5msnoHtxGI5 fVxwYXJkXHBsYWluXGZzMjAgUGxhcXVlIFxwYXJ9 GROSS DESCRIPTION (test code = 3366) g1oqmZLzIUAscYS8DqUkHUKpd2xbu7 BsdHBncGFy NQuqmBUefnEsbv87vDD2qB66LP2nQRUqSuD9KIKb lqZ4Yix3UIQyMTDzmABmE473w0mxa7mgdkCkaEJ3 gXdkWJIxFLDpHIvcKZKnKxWxXtXsSMt0IBIuNnYo f2nfeIGgGYgxNGS3yNVuLXHnVFCrMJGgVR18R1Gp ljQpPXwbHVCdWQDbqB6iOQ95lMOvlfHsoeUaZgEd XFT1SGbfyBMqdXBhTXAgwLryPXIpxEVenTPxxWZo sQVpPDloHYNvZg6zPJnzTp2sJFJiVSwyeaUfhZdy ghLgxqNlcEXypLVzEwZ3LLrow2tgaPwwqOXqPCZi DVHxRIvacOfetWLqL5UiP4dftHLhwVtnmi2zJJez BCWkCTJcqWJiGMgvPYNaoucgtNz0PVVcD5Hfe99q LYH0aaNzTTPdTVtjKNW9URqyv7cvlH1gs3tzroTm nEGuK6MvA9ttaGNxKBVpukDrfc6fABgvCBUxJHDs jPJzLRmlATW7Qm4stXZoTVSlcoBehJXgSQ42nOVh wVyhLt9oaH05fP3iUNTjP1JiL2ubaDYwjKkegeWk pcVOAX3nQTwKM0RlBHlwLRF3 MICROSCOPIC DESCRIPTION (test code = o4oznTAzFENxpMH6NkDtZLYrs7hxz5 [facility]) CLrcpERihkGcgv46wRZ9pJ75XF2iKXHwElS9XUMr dzG5Hqy9PJGlZTKecKTdU051l1jzv3nucjBgwDU6 cBaeNMSaAXHxGPbkPJHqEhXrSTUoMt8zfGXyAOMa cn0= [facility] Center[facility] [id number] 18:50:00Surgical Pathology Report Case: [id number] Authorizing Provider: Juan Gallardo, Collected: 09/19/2020 02:54 PM OrderingLocation: [facility] Received: 09/19/2020 03:32 PM PERIOPERATIVE SERVICES Pathologist: Jarad Menchaca MD Specimen: Plaque, LEFT CAROTID ARTERY PLAQUE ARTERY, LEFT CAROTID, ENDARTERECTOMY:CALCIFIC ATHEROSCLEROTIC PLAQUE Signing Pathologist Direct Phone Line: [phone] signed by Jarad Menchaca MD on 09/23/2020 at 6:50 [id number]; [id number] diagnosis: left carotid stenosisPlaque Received fresh labeled with the patient's name, accession number and "plaque, left carotid artery plaque" is a 2.0 x 2.0 cm irregular fragment of yellow plaque that displays calcification. The specimen is serially sectioned to reveal a yellow homogeneous calcified center. The specimen is submitted in its entirety following decalcification in A1. JG/pl PerformedPOC- Glucose xhowi2015-02-18 11:48:00 Test Item Value Reference Range Interpretation Comments POC-Glucose Meter (test 208 mg/dL 70-110 H : TE STED AT [facility] code = 1538) [address] [facility] 30: Development Technician/Techni ciara ID = [id number] for BERT CORONADO Lab Interpretation (test Abnormal code = 70141-0) [facility] [id number] 11:48:00 Test Item Value Reference Range Interpretation Comments POC-GLUCOSE METER 208 mg/dL 70-110 H : TESTED A T [facility] 6720 (BEAKER) (test code = [facility] Thomas [facility], 1538) [address]: Development Technician/Techni ciara ID = [id number] for BERT ROUSSEAU POCT-GLUCOSE [id number] 08:17:00 Test Item Value Reference Range Interpretation Comments POC-GLUCOSE METER 183 mg/dL 70-110 H : TESTED A T [facility] 6720 (BEAKER) (test code = [facility] Thomas [facility], 1538) [address]: Development Technician/Techni ciara ID = [id number] for BERT ROUSSEAU POC ACTIVATED CLOTTING [id number] 06:23:00 Test Item Value Reference Range Interpretation Comments Activated Clotting Time 241 sec : 74 -137 seconds, (test code = 441) Baseline: TESTED AT [address], [address] 30: Development Technician/Techni ciara ID = [id number] for CAST RO, NAT [id number] 06:23:00 Test Item Value Reference Range Interpretation Comments ACTIVATED CLOTTING TIME 241 sec : 74 -137 seconds, (BEAKER) (test code = Baseli ne: TESTED AT 441) [address], [address] 30: Development Technician/Techni ciara ID = [id number] for CA STRO, NAT [id number] 06:23:00 Test Item Value Reference Range Interpretation Comments ACTIVATED CLOTTING TIME 224 sec : 74 -137 seconds, (BEAKER) (test code = Baseli ne: TESTED AT 441) [address], [facility] 30: Development Technician/Techni ciara ID = [id number] for CA STRO, NAT CBC with platelet count + automated [id number] 01:08:00 Test Item Value Reference Range Interpretation Comments WBC (test code = 6690-2) 12.8 See_Comment H [A utomated message] The system [employer] generated this result transmitted ref erence range: 3.5 - 10 .5 K/L. The refe rence range was not u sed to interpret this result as normal/abnor mal. RBC (test code = 789-8) 3.64 See_Comment L [Au tomated message] The system [employer] generated this result transmitted ref erence range: 3.93 - 5 .22 M/L. The refe rence range was not u sed to interpret this result as normal/abnor mal. MCHC (test code = 786-4) 30.3 See_Comment L [A utomated message] The system [employer] generated this result transmitted ref erence range: 32.2 - 3 5.5 GM/DL. The refe rence range was not u sed to interpret this result as normal/abnor mal. Hematocrit (test code = 31.7 % 34.1-44.9 L 4544-3) MCV (test code = 787-2) 87.1 fL 79.4-94.8 MCH (test code = 785-6) 26.4 pg 25.6-32.2 RDW (test code = 788-0) 13.5 % 11.7-14.4 Platelets (test code = 299 See_Comment [Aut omated message] 777-3) The system [employer] generated this result transmitted ref erence range: 150 - 45 0 K/CU MM. The referen ce range was not u sed to interpret this result as normal/abnor mal. MPV (test code = 10.5 fL 9.4-12.3 47629-3) nRBC (test code = 413) 0 See_Comment [Aut omated message] The system [employer] generated this result transmitted ref erence range: 0 - 0 /1 00 WBC. The refere nce range was not u sed to interpret this result as normal/abnor mal. % Neutros (test code = 89 % 429) % Lymphs (test code = 8 % 430) % Monos (test code = 2 % 431) % Eos (test code = 432) 0 % % Baso (test code = 437) 0 % # Neutros (test code = 11.43 See_Comment H [Aut omated message] 670) The system [employer] generated this result transmitted ref erence range: 1.56 - 6 .13 K/L. The refe rence range was not u sed to interpret this result as normal/abnor mal. # Lymphs (test code = 1.06 See_Comment L [Auto mated message] 414) The system [employer] generated this result transmitted ref erence range: 1.18 - 3 .74 K/L. The refe rence range was not u sed to interpret this result as normal/abnor mal. # Monos (test code = 0.20 See_Comment L [Autom ated message] 415) The system [employer] generated this result transmitted ref erence range: 0.24 - 0 .36 K/L. The refe rence range was not u sed to interpret this result as normal/abnor mal. # Eos (test code = 416) 0.00 See_Comment L [Au tomated message] The system [employer] generated this result transmitted ref erence range: 0.04 - 0 .36 K/L. The refe rence range was not u sed to interpret this result as normal/abnor mal. # Baso (test code = 417) 0.03 See_Comment [A utomated message] The system [employer] generated this result transmitted ref erence range: 0.01 - 0 .08 K/L. The refe rence range was not u sed to interpret this result as normal/abnor mal. Immature 1 % 0-1 Granulocytes-Relative (test code = 2801) Lab Interpretation (test Abnormal code = 31094-5) [facility] W/PLT COUNT & AUTO [id number] 01:08:00 Test Item Value Reference Range Interpretation Comments WHITE BLOOD CELL COUNT (BEAKER) 12.8 K/ L 3.5-10.5 H (test code = 775) RED BLOOD CELL COUNT (BEAKER) 3.64 M/ L 3.93-5.22 L (test code = 761) HEMOGLOBIN (BEAKER) (test code = 9.6 GM/DL 11.2-15.7 L 410) HEMATOCRIT (BEAKER) (test code = 31.7 % 34.1-44.9 L 411) MEAN CORPUSCULAR VOLUME (BEAKER) 87.1 fL 79.4-94.8 (test code = 753) MEAN CORPUSCULAR HEMOGLOBIN 26.4 pg 25.6-32.2 (BEAKER) (test code = 751) MEAN CORPUSCULAR HEMOGLOBIN CONC 30.3 GM/DL 32.2-35.5 L (BEAKER) (test code = 752) RED CELL DISTRIBUTION WIDTH 13.5 % 11.7-14.4 (BEAKER) (test code = 412) PLATELET COUNT (BEAKER) (test 299 K/CU MM 150-450 code = 756) MEAN PLATELET VOLUME (BEAKER) 10.5 fL 9.4-12.3 (test code = 754) NUCLEATED RED BLOOD CELLS 0 /100 WBC 0-0 (BEAKER) (test code = 413) NEUTROPHILS RELATIVE PERCENT 89 % (BEAKER) (test code = 429) LYMPHOCYTES RELATIVE PERCENT 8 % (BEAKER) (test code = 430) MONOCYTES RELATIVE PERCENT 2 % (BEAKER) (test code = 431) EOSINOPHILS RELATIVE PERCENT 0 % (BEAKER) (test code = 432) BASOPHILS RELATIVE PERCENT 0 % (BEAKER) (test code = 437) NEUTROPHILS ABSOLUTE COUNT 11.43 K/ L 1.56-6.13 H (BEAKER) (test code = 670) LYMPHOCYTES ABSOLUTE COUNT 1.06 K/ L 1.18-3.74 L (BEAKER) (test code = 414) MONOCYTES ABSOLUTE COUNT (BEAKER) 0.20 K/ L 0.24-0.36 L (test code = 415) EOSINOPHILS ABSOLUTE COUNT 0.00 K/ L 0.04-0.36 L (BEAKER) (test code = 416) BASOPHILS ABSOLUTE COUNT (BEAKER) 0.03 K/ L 0.01-0.08 (test code = 417) IMMATURE GRANULOCYTES-RELATIVE 1 % 0-1 PERCENT (BEAKER) (test code = 2801) Basic Metabolic [id number] 00:56:00 Test Item Value Reference Range Interpretation Comments Sodium (test code = 134 meq/L 136-145 L 2951-2) Potassium (test code = 3.9 meq/L 3.5-5.1 2823-3) Chloride (test code = 104 meq/L 98-107 5-0) CO2 (test code = 23 meq/L 22-29 8-9) BUN (test code = 10 mg/dL 7-21 3094-0) Creatinine (test code 0.76 mg/dL 0.57-1.25 = 2160-0) Glucose (test code = 332 mg/dL 70-105 H 2345-7) Calcium (test code = 8.2 mg/dL 8.4-10.2 L 43348-9) EGFR (test code = 75 mL/min/1.73 [place] [address]-7) NOT ACCURATE CREATININE CLEARANCE IN PREDICTING GLOMERULAR FILTRATION RATE . ESTIMATED GFR I S NOT APPLICABLE FOR DIALYSIS PATIENTS. GABRIELA (test code = GABRIELA) Development Technician ID - PIAYA L Lab Interpretation Abnormal (test code = 71173-5) [facility] 00:56:00 Test Item Value Reference Range Interpretation Comments Magnesium (test code = 1.7 mg/dL 1.6-2.6 33135-3) GABRIELA (test code = GABRIELA) Development Technician ID - PIAYA L Lab Interpretation (test Normal code = 74589-9) [facility] 00:56:00 Test Item Value Reference Range Interpretation Comments Phosphorus (test code = 3.7 mg/dL 2.3-4.7 2777-1) GABRIELA (test code = GABRIELA) Development Technician ID - PIAYA L Lab Interpretation (test Normal code = 90461-4) [facility] [id number] 00:56:00 Test Item Value Reference Range Interpretation Comments SODIUM (BEAKER) 134 meq/L 136-145 L (test code = 381) POTASSIUM (BEAKER) 3.9 meq/L 3.5-5.1 (test code = 379) CHLORIDE (BEAKER) 104 meq/L 98-107 (test code = 382) CO2 (BEAKER) (test 23 meq/L 22-29 code = 355) BLOOD UREA NITROGEN 10 mg/dL 7-21 (BEAKER) (test code = 354) CREATININE (BEAKER) 0.76 mg/dL 0.57-1.25 (test code = 358) GLUCOSE RANDOM 332 mg/dL 70-105 H (BEAKER) (test code = 652) CALCIUM (BEAKER) 8.2 mg/dL 8.4-10.2 L (test code = 697) EGFR (BEAKER) (test 75 mL/min/1.73 ESTIMA ANTONIO GFR IS code = 1092) sq m NOT ACCURATE CREATININE CLEARANCE IN PREDICTING GLOMERULAR FILTRATION RATE . ESTIMATED GFR I S NOT APPLICABLE FOR DIALYSIS PATIEN TS. Development Technician ID - FARHAD [id number] 00:56:00 Test Item Value Reference Range Interpretation Comments MAGNESIUM (BEAKER) (test code = 1.7 mg/dL 1.6-2.6 627) Development Technician ID - FARHAD [id number] 00:56:00 Test Item Value Reference Range Interpretation Comments PHOSPHORUS (BEAKER) (test code = 3.7 mg/dL 2.3-4.7 604) Development Technician ID - PITUAN LCalcium, [id number] 00:31:00 Test Item Value Reference Range Interpretation Comments Calcium, Ion (test code = 1994-3) 1.18 mmol/L 1.12-1.27 pH, Blood (test code = 50446-0) 7.39 [facility], [id number] 00:31:00 Test Item Value Reference Range Interpretation Comments CALCIUM IONIZED (BEAKER) (test 1.18 mmol/L 1.12-1.27 code = 698) PH, BLOOD (BEAKER) (test code = 7.39 1810) [id number] 10:46:00 Test Item Value Reference Range Interpretation Comments PTT (test code = 41854-5) 27.9 See_Comment [ Automated message] The system [employer] generated this result transmitted ref erence range: 22.5 - 3 6.0 seconds. The re ference range was not u sed to interpret this result as normal/abnor mal. Lab Interpretation (test Normal code = 74644-4) [facility]00 Test Item Value Reference Range Interpretation Comments PARTIAL THROMBOPLASTIN TIME 27.9 seconds 22.5-36.0 (BEAKER) (test code = 760) Prothrombin time/[id number] 10:45:00 Test Item Value Reference Interpretation Comments Range Protime (test code = 13.4 See_Comment [Autom ated 5902-2) message] The system which generated this result transmitted reference range : 11.9 - 14.2 seconds. The reference range was not used to interpret this result as normal/abnormal . INR (test code = 1.05 See_Comment [Automated 5091-6) message] The system which generated this result transmitted reference range : <=5.90. The reference range was not used to interpret this result as normal/abnormal . GABRIELA (test code = Effective 03/11/2019: GABRIELA) PT Reference Range ChangeNew: 11.9-14.2 Previous: 11.7-14.7 RECOMMENDED COUMADIN/WARFARIN INR THERAPY RANGESSTANDARD DOSE: 2.0-3.0 Includes: PROPHYLAXIS for venous thrombosis, systemic embolization; TREATMENT for venous thrombosis and/or pulmonary embolus.HIGH RISK: Target INR is 2.5-3.5 for patients wiht mechanical heart valves. Lab Interpretation Normal (test code = 92528-8) [facility]/[id number] 10:45:00 Test Item Value Reference Range Interpretation Comments PROTIME (YECENIA) (test code = 13.4 seconds 11.9-14.2 759) INR (YECENIA) (test code = 370) 1.05 <=5.90 Effective 03/11/2019: PT Reference Range ChangeNew: 11.9-14.2 Previous: 11.7- 14.7RECOMMENDED COUMADIN/WARFARIN INR THERAPY RANGESSTANDARD DOSE: 2.0-3.0 Includes: PROPHYLAXIS for venous thrombosis, systemic embolization; TREATMENT for venous thrombosis and/or pulmonary embolus.HIGH RISK: Target INR is2.5-3.5 for patients wiht mechanical heart valves.POCT-GLUCOSE [id number] 09:19:00 Test Item Value Reference Range Interpretation Comments POC-GLUCOSE METER 187 mg/dL 70-110 H : TESTED A T [facility] 6720 (YECENIA) (test code = [place]ENDIRA [place], 1538) [address]: Development Technician/Techni ciara ID = [id number] for Jojo Rivers ECG 12 [id number] 12:51:19Interface, External Ris In - 09/14/2020 12:51 PM CSTVentricular Rate 65 BPMAtrial Rate 65 BPMP-R Interval 154 msQRS Duration 78 msQ-T Interval 442 msQTC Calculation(Bazett) 459 msP [place] 5 degreesR Axis77 degreesT [place] 66 degreesNormal sinus rhythmNonspecific T wave abnormalityProlonged QTWhen compared with ECG of 02-AUG-2019 06:01,Premature ventricular complexes are no longer PresentConfirmed by Daksha NICHOLE, MOLLY ([id number]) on 09/14/2020 12:51:[address] [facility] 2020-09-13 16:42:00 Test Item Value Reference Range Interpretation Comments ABO Grouping (test code = 2588) A Rh Factor (test code = 2589) POS [facility] CenterType and screen, [id number] 16:36:00 Test Item Value Reference Range Interpretation Comments Ab Scrn (test code = 890-4) NEGATIVE echo2 [facility] CenterBAS[facility]OLIC [id number] 15:32:00 Test Item Value Reference Range Interpretation Comments SODIUM (BEAKER) 140 meq/L 136-145 (test code = 381) POTASSIUM (BEAKER) 3.3 meq/L 3.5-5.1 L (test code = 379) CHLORIDE (BEAKER) 104 meq/L 98-107 (test code = 382) CO2 (BEAKER) (test 25 meq/L 22-29 code = 355) BLOOD UREA NITROGEN 6 mg/dL 7-21 L (BEAKER) (test code = 354) CREATININE (BEAKER) 0.71 mg/dL 0.57-1.25 (test code = 358) GLUCOSE RANDOM 127 mg/dL 70-105 H (BEAKER) (test code = 652) CALCIUM (BEAKER) 9.1 mg/dL 8.4-10.2 (test code = 697) EGFR (BEAKER) (test 82 mL/min/1.73 ESTIMA ANTONIO GFR IS code = 1092) sq m NOT ACCURATE CREATININE CLEARANCE IN PREDICTING GLOMERULAR FILTRATION RATE . ESTIMATED GFR I S NOT APPLICABLE FOR DIALYSIS PATIEN TS. Development Technician ID - ADMINPROTHROMBIN TIME/[id number] 15:29:00 Test Item Value Reference Range Interpretation Comments PROTIME (BEAKER) (test code = 12.8 seconds 11.9-14.2 759) INR (BEAKER) (test code = 370) 0.99 <=5.90 Effective 03/11/2019: PT Reference Range ChangeNew: 11.9-14.2 Previous: 11.7- 14.7RECOMMENDED COUMADIN/WARFARIN INR THERAPY RANGESSTANDARD DOSE: 2.0-3.0 Includes: PROPHYLAXIS for venous thrombosis, systemic embolization; TREATMENT for venous thrombosis and/or pulmonary embolus.HIGH RISK: Target INR is2.5-3.5 for patients wiht mechanical heart valves.CBC W/PLT COUNT & AUTO [id number] 15:17:00 Test Item Value Reference Range Interpretation Comments WHITE BLOOD CELL COUNT (BEAKER) 10.4 K/ L 3.5-10.5 (test code = 775) RED BLOOD CELL COUNT (BEAKER) 4.38 M/ L 3.93-5.22 (test code = 761) HEMOGLOBIN (BEAKER) (test code = 11.6 GM/DL 11.2-15.7 410) HEMATOCRIT (BEAKER) (test code = 38.2 % 34.1-44.9 411) MEAN CORPUSCULAR VOLUME (BEAKER) 87.2 fL 79.4-94.8 (test code = 753) MEAN CORPUSCULAR HEMOGLOBIN 26.5 pg 25.6-32.2 (BEAKER) (test code = 751) MEAN CORPUSCULAR HEMOGLOBIN CONC 30.4 GM/DL 32.2-35.5 L (BEAKER) (test code = 752) RED CELL DISTRIBUTION WIDTH 13.4 % 11.7-14.4 (BEAKER) (test code = 412) PLATELET COUNT (BEAKER) (test 359 K/CU MM 150-450 code = 756) MEAN PLATELET VOLUME (BEAKER) 10.5 fL 9.4-12.3 (test code = 754) NUCLEATED RED BLOOD CELLS 0 /100 WBC 0-0 (BEAKER) (test code = 413) NEUTROPHILS RELATIVE PERCENT 56 % (BEAKER) (test code = 429) LYMPHOCYTES RELATIVE PERCENT 32 % (BEAKER) (test code = 430) MONOCYTES RELATIVE PERCENT 7 % (BEAKER) (test code = 431) EOSINOPHILS RELATIVE PERCENT 4 % (BEAKER) (test code = 432) BASOPHILS RELATIVE PERCENT 1 % (BEAKER) (test code = 437) NEUTROPHILS ABSOLUTE COUNT 5.87 K/ L 1.56-6.13 (BEAKER) (test code = 670) LYMPHOCYTES ABSOLUTE COUNT 3.30 K/ L 1.18-3.74 (BEAKER) (test code = 414) MONOCYTES ABSOLUTE COUNT (BEAKER) 0.73 K/ L 0.24-0.36 H (test code = 415) EOSINOPHILS ABSOLUTE COUNT 0.36 K/ L 0.04-0.36 (BEAKER) (test code = 416) BASOPHILS ABSOLUTE COUNT (BEAKER) 0.10 K/ L 0.01-0.08 H (test code = 417) IMMATURE GRANULOCYTES-RELATIVE 0 % 0-1 PERCENT (BEAKER) (test code = 2801) BASIC METABOLIC [id number] 06:24:00 Test Item Value Reference Range Interpretation [...] DATA TO CALCULA TE ESTIMATED GFR. CBC (HEMOGRAM ONLY)2019-08-04 05:47:00 Test [...] 0-0 (BEAKER) (test code = 413) POCT-GLUCOSE [id number] 21:22:00 Test Item Value Reference Range Interpretation Comments POC-GLUCOSE METER 138 mg/dL 70-110 H TESTED AT [place] [address] ([facility]) (test code = [facility] 1538) [address] POCT-GLUCOSE [id number] 17:38:00 Test Item Value Reference Range Interpretation Comments POC-GLUCOSE METER 131 mg/dL 70-110 H TESTED AT [place] [address] ([facility]) (test code = [facility] 1538) [address] BASIC METABOLIC [id number] 06:07:00 Test Item Value Reference Range Interpretation [...] 1092) DATA TO CALCULA TE ESTIMATED GFR. [id number] 06:04:00 Test Item Value Reference Range Interpretation [...] H (BEAKER) (test code = 413) POCT-GLUCOSE [id number] 23:10:00 Test Item Value Reference Range Interpretation Comments POC-GLUCOSE METER 127 mg/dL 70-110 H TESTED AT [place] [address] ([facility] (test code = [place]ENDIRA [place] 1538) [address] POCT-GLUCOSE [id number] 12:36:00 Test Item Value Reference Range Interpretation Comments POC-GLUCOSE METER 157 mg/dL 70-110 H TESTED AT [place] [id number] ([facility] (test code = [place]ENDIR[place] 1538) [address] CBC (HEMOGRAM ONLY)2019-08-02 06:03:00 Test Item Value [...] (BEAKER) (test code = 413) BASIC METABOLIC [id number] 05:47:00 Test Item Value Reference Range Interpretation [...] 1092) DATA TO CALCULA TE ESTIMATED GFR. [id number] 05:46:00 Test Item Value Reference Range Interpretation Comments PHOSPHORUS (BEAKER) (test code = 2.5 mg/dL 2.3-4.7 604) [id number] 05:46:00 Test Item Value Reference Range Interpretation Comments MAGNESIUM (BEAKER) (test code = 2.1 mg/dL 1.6-2.6 627) POCT-GLUCOSE [id number] 20:47:00 Test Item Value Reference Range Interpretation Comments POC-GLUCOSE METER 164 mg/dL 70-110 H TESTED AT [place] [address] ([facility] ([facility] 1538) [address] POCT-GLUCOSE [id number] 17:38:00 Test Item Value Reference Range Interpretation Comments POC-GLUCOSE METER 194 mg/dL 70-110 H TESTED AT [place] [address] ([facility]) (test code = [facility] 1538) [address] POCT-GLUCOSE [id number] 07:51:00 Test Item Value Reference Range Interpretation Comments POC-GLUCOSE METER 157 mg/dL 70-110 H TESTED AT [place] [address] ([facility]) (test code = [facility] 1538) [address] HEMOGLOBIN [id number] 07:51:00 Test Item Value Reference Range Interpretation Comments HEMOGLOBIN A1C (BEAKER) (test code = 8.6 % 4.3-6.1 H 368) BASIC METABOLIC [id number] 06:11:00 Test Item Value Reference Range Interpretation [...] 1092) DATA TO CALCULA TE ESTIMATED GFR. [id number] 06:10:00 Test Item Value Reference Range Interpretation Comments PHOSPHORUS (BEAKER) (test code = 1.9 mg/dL 2.3-4.7 L 604) [id number] 06:10:00 Test Item Value Reference Range Interpretation [...] 0-0 (BEAKER) (test code = 413) POCT-GLUCOSE [id number] 22:07:00 Test Item Value Reference Range Interpretation Comments POC-GLUCOSE METER 175 mg/dL 70-110 H TESTED AT [facility] 6720 (BEAKER) (test code = ERENDIRA [place] 1538) [address] POCT-GLUCOSE [id number] 18:30:00 Test Item Value Reference Range Interpretation Comments POC-GLUCOSE METER 225 mg/dL 70-110 H TESTED AT [facility] 6720 (BEAKER) (test code = ERENDIRA Guzman [place] 1538) [address] POCT-GLUCOSE [id number] 12:17:00 Test Item Value Reference Range Interpretation Comments POC-GLUCOSE METER 170 mg/dL 70-110 H TESTED AT [facility] 6720 (BEAKER) (test code = ERENDIRA Guzman [place] 1538) [address] POCT-GLUCOSE [id number] 08:20:00 Test Item Value Reference Range Interpretation Comments POC-GLUCOSE METER 161 mg/dL 70-110 H TESTED AT [place] [address] (BEAKER) (test code = ERENDIRA Guzman [facility] 1538) [address] BASIC METABOLIC [id number] 08:18:00 Test Item Value Reference Range Interpretation [...] 1092) DATA TO CALCULA TE ESTIMATED GFR. [id number] 08:15:00 Test Item Value Reference Range Interpretation Comments MAGNESIUM (BEAKER) 1.9 mg/dL 1.6-2.6 Specimen slightly (test code = 627) hemolyzed [id number] 08:15:00 Test Item Value Reference Range Interpretation Comments PHOSPHORUS (BEAKER) 2.3 mg/dL 2.3-4.7 Specimen slightly (test code = 604) hemolyzed RAD, CHEST, 1 VIEW, NON [id number] 07:56:00Reason for exam:->post-op cardiac surgeryShould this be [...] MDReport Verified Date/Time: 07/31/2019 07:56:15 Reading Location: [facility] Radiology Reading Room [id number] 07:25:00 Test Item Value Reference Range Interpretation [...] CELL DISTRIBUTION WIDTH 19.2 % 11.7-14.4 H ([facility]) (test code = 412) PLATELET COUNT ([facility]) (test 218 K/CU MM 150-450 code = 756) MEAN PLATELET VOLUME ([facility]) 11.0 fL 9.4-12.3 (test code = 754) NUCLEATED RED BLOOD CELLS 0 /100 WBC 0-0 ([facility]) (test code = 413) POCT-GLUCOSE [id number] 21:32:00 Test Item Value Reference Range Interpretation Comments POC-GLUCOSE METER 168 mg/dL 70-110 H TESTED AT [place] [address] ([facility]) (test code = [place]IR[place] 1538) [address] POCT-GLUCOSE [id number] 17:55:00 Test Item Value Reference Range Interpretation Comments POC-GLUCOSE METER 172 mg/dL 70-110 H TESTED AT [place] [address] ([facility]) (test code = [place] 1538) [address] POCT-GLUCOSE [id number] 15:34:00 Test Item Value Reference Range Interpretation Comments POC-GLUCOSE METER 152 mg/dL 70-110 H TESTED AT [place] [address] ([facility]) (test code = ERENDIRA Guzman [place] 1538) [address] POCT-GLUCOSE [id number] 12:52:00 Test Item Value Reference Range Interpretation Comments POC-GLUCOSE METER 222 mg/dL 70-110 H TESTED AT [place] [address] ([facility]) (test code = ERENDIRA Guzman [place] 1538) [address] POCT-GLUCOSE [id number] 07:19:00 Test Item Value Reference Range Interpretation Comments POC-GLUCOSE METER 185 mg/dL 70-110 H TESTED AT [place] [address] ([facility]) (test code = [place]IR[place] 1538) [address] [id number] 06:16:00 Test Item Value Reference Range Interpretation Comments ACTIVATED CLOTTING TIME 109 sec Refe rence Range: (BEAKER) (test code = 74-137 seconds, 441) Baseline/TESTED AT [facility] 67[address] [facility] [address] [id number] 06:16:00 Test Item Value Reference Range Interpretation Comments ACTIVATED CLOTTING TIME 543 sec Refe rence Range: (BEAKER) (test code = 74-137 seconds, 441) Baseline/TESTED AT [facility] 67[address] [facility] [address] 0 [id number] 06:16:00 Test Item Value Reference Range Interpretation Comments ACTIVATED CLOTTING TIME 510 sec Refe rence Range: (BEAKER) (test code = 74-137 seconds, 441) Baseline/TESTED AT [facility] 67[address] [facility] [address] 0 BASIC METABOLIC [id number] 06:04:00 Test Item Value Reference Range Interpretation [...] 1092) DATA TO CALCULA TE ESTIMATED GFR. [id number] 06:02:00 Test Item Value Reference Range Interpretation Comments PHOSPHORUS (BEAKER) (test code = 3.7 mg/dL 2.3-4.7 604) [id number] 06:02:00 Test Item Value Reference Range Interpretation Comments MAGNESIUM (BEAKER) (test code = 2.0 mg/dL 1.6-2.6 627) [id number] 05:57:00 Test Item Value Reference Range Interpretation [...] is2.5-3.5 for patients wiht mechanical heart valves.PROTHROMBIN [id number] 05:56:00 Test Item Value Reference Range Interpretation [...] is2.5-3.5 for patients wiht mechanical heart valves.CALCIUM, [id number] 05:55:00 Test Item Value Reference Range Interpretation Comments CALCIUM IONIZED (BEAKER) (test 1.17 mmol/L 1.12-1.27 code = 698) PH, BLOOD (BEAKER) (test code = 7.38 1810) CBC W/PLT COUNT & AUTO [id number] 05:55:00 Test Item Value Reference Range Interpretation [...] (BEAKER) (test code = 2801) OXYGEN SATURATION, [id number] 05:49:00 Test Item Value Reference Range Interpretation Comments O2 SATURATION (MEASURED) (BEAKER) 77.2 % (test code = 1455) RAD, CHEST, 1 VIEW, NON [id number] 05:35:00Reason for exam:->post-op cardiac surgeryShould this be [...] Signed: Ottoniel Brand Verified Date/Time: 07/30/2019 05:35:16 [id number] 18:41:00 Test Item Value Reference Range Interpretation Comments POTASSIUM (BEAKER) (test code = 4.2 meq/L 3.5-5.1 379) PRN - repeat potassium levels every 1 hour until glucose level is less than 450 mg/dLPOCT-GLUCOSE [id number] 18:14:00 Test Item Value Reference Range Interpretation Comments POC-GLUCOSE METER 175 mg/dL 70-110 H TESTED AT [facility] 6720 (BEAKER) (test code = [facility] 1538) [address] BLOOD GAS, [id number] 16:57:00 Test Item Value Reference Range Interpretation [...] (test code = 1819) 40.0 % HEMOGLOBIN [id number] 16:17:00 Test Item Value Reference Range Interpretation Comments HEMOGLOBIN A1C (BEAKER) (test code = 9.5 % 4.3-6.1 H 368) PLATELET AGGREGATION: FUNCTION [id number] 15:15:00 Test Item Value Reference Range Interpretation Comments [id number] Giovanni Tee M.D. ([facility]) (test code = (electonic signature) 2622) PLATELET COUNT AGG 273 K/CU MM 150-450 (BEAKER) (test code = 2656) PLATELET RICH 258 k/cu mm 200-300 PLASMA([facility]) (test code = 2134) PLATELET FUNCTION Pattern of SCREEN INTERPRETATION disaggregation present (BEAKER) (test code = with ADP which may be 4655) characteristic of P2Y12 inhibitor effect. Correlation with medication history is required. Platelet Function Screen results may be falsely low with platelet counts<75,000/cu mm.POCT-GLUCOSE [id number] 15:07:00 Test Item Value Reference Range Interpretation Comments POC-GLUCOSE METER 125 mg/dL 70-110 H TESTED AT [facility] 67 ([facility]) (test code = BRIGIDAFL Thomas [facility] 1538) [address] POCT-GLUCOSE [id number] 14:26:00 Test Item Value Reference Range Interpretation Comments POC-GLUCOSE METER 85 mg/dL 70-110 TESTED AT [facility] 6720 ([facility]) (test code = [facility] Thomas [facility] [address] 1538) POCT-GLUCOSE [id number] 14:14:00 Test Item Value Reference Range Interpretation Comments POC-GLUCOSE METER 88 mg/dL 70-110 TESTED AT [facility] 67 ([facility]) (test code = [facility] Thomas [facility] [address] 1538) RAD, CHEST, 1 VIEW, NON [id number] 13:11:00Reason for exam:->Status post CV Surgery post [...] Akbar MDReport VerifiedDate/Time: 07/29/2019 13:11:13 Reading Location: [facility] Reading Room POCT-GLUCOSE METER 2019-07-29 13:00:00 Test Item Value Reference Range Interpretation Comments POC-GLUCOSE METER 132 mg/dL 70-110 H TESTED AT [facility] 6720 (BEAKER) (test code = [place]IR[place] 1538) [address] BASIC METABOLIC [id number] 12:28:00 Test Item Value Reference Range Interpretation [...] 1092) DATA TO CALCULA TE ESTIMATED GFR. [id number] 12:27:00 Test Item Value Reference Range Interpretation Comments PHOSPHORUS (BEAKER) (test code = 2.3 mg/dL 2.3-4.7 604) [id number] 12:27:00 Test Item Value Reference Range Interpretation Comments MAGNESIUM (BEAKER) (test code = 2.6 mg/dL 1.6-2.6 627) [id number] 12:26:00 Test Item Value Reference Range Interpretation Comments PARTIAL THROMBOPLASTIN TIME 27.4 seconds 22.5-36.0 (BEAKER) (test code = 760) PROTHROMBIN [id number] 12:25:00 Test Item Value Reference Range Interpretation [...] for patients wiht mechanical heart valves.LACTIC ACID, [id number] 12:21:00 Test Item Value Reference Range Interpretation Comments LACTATE BLOOD ARTERIAL (2) 1.2 mmol/L 0.5-2.2 (BEAKER) (test code = 2874) CBC W/PLT COUNT & AUTO [id number] 12:08:00 Test Item Value Reference Range Interpretation [...] PERCENT (BEAKER) (test code = 2801) CALCIUM, [id number] 12:04:00 Test Item Value Reference Range Interpretation Comments CALCIUM IONIZED (BEAKER) (test 1.15 mmol/L 1.12-1.27 code = 698) PH, BLOOD (BEAKER) (test code = 7.44 1810) BLOOD GAS, [id number] 12:03:00 Test Item Value Reference Range Interpretation [...] code = 1819) 60.0 % OXYGEN SATURATION, [id number] 12:00:00 Test Item Value Reference Range Interpretation Comments O2 SATURATION (MEASURED) (BEAKER) 66.6 % (test code = 1455) For occult [id number] 11:53:00 Test Item Value Reference Range Interpretation Comments PHOSPHORUS (BEAKER) (test code = 2.9 mg/dL 2.3-4.7 604) CALCIUM, [id number] 10:32:00 Test Item Value Reference Range Interpretation Comments CALCIUM IONIZED (BEAKER) (test 1.03 mmol/L 1.12-1.27 L code = 698) PH, BLOOD (BEAKER) (test code = 7.33 1810) BLOOD GAS, [id number] 10:31:00 Test Item Value Reference Range Interpretation [...] code = 1819) 100.0 % SODIUM NA-STAT [id number] 10:31:00 Test Item Value Reference Range Interpretation Comments SODIUM (BEAKER) (test code = 381) 133 meq/L 135-148 L GLUCOSE-STAT [id number] 10:31:00 Test Item Value Reference Range Interpretation Comments GLUCOSE RANDOM (BEAKER) (test code 226 mg/dL 70-110 H = 652) HGB/HCT (H&H) - STAT [id number] 10:31:00 Test Item Value Reference Range Interpretation Comments HEMOGLOBIN (BEAKER) (test code = 8.0 g/dL 12.0-15.0 L 410) HEMATOCRIT (BEAKER) (test code = 24.0 % 36.0-45.0 L 411) POTASSIUM-STAT [id number] 10:30:00 Test Item Value Reference Range Interpretation Comments POTASSIUM (BEAKER) (test code = 4.2 meq/L 3.6-5.5 379) BLOOD GAS, [id number] 10:05:00 Test Item Value Reference Range Interpretation [...] code = 1819) 80.0 % SODIUM NA-STAT [id number] 10:05:00 Test Item Value Reference Range Interpretation Comments SODIUM (BEAKER) (test code = 381) 127 meq/L 135-148 L POTASSIUM-STAT [id number] 10:05:00 Test Item Value Reference Range Interpretation Comments POTASSIUM (BEAKER) (test code = 5.9 meq/L 3.6-5.5 H 379) GLUCOSE-STAT [id number] 10:05:00 Test Item Value Reference Range Interpretation Comments GLUCOSE RANDOM (BEAKER) (test code 241 mg/dL 70-110 H = 652) HGB/HCT (H&H) - STAT [id number] 10:05:00 Test Item Value Reference Range Interpretation Comments HEMOGLOBIN (BEAKER) (test code = 8.0 g/dL 12.0-15.0 L 410) HEMATOCRIT (BEAKER) (test code = 24.0 % 36.0-45.0 L 411) BLOOD GAS, [id number] 09:51:00 Test Item Value Reference Range Interpretation [...] code = 1819) 80.0 % SODIUM NA-STAT [id number] 09:51:00 Test Item Value Reference Range Interpretation Comments SODIUM (BEAKER) (test code = 381) 130 meq/L 135-148 L GLUCOSE-STAT [id number] 09:51:00 Test Item Value Reference Range Interpretation Comments GLUCOSE RANDOM (BEAKER) (test code 249 mg/dL 70-110 H = 652) HGB/HCT (H&H) - STAT [id number] 09:51:00 Test Item Value Reference Range Interpretation Comments HEMOGLOBIN (BEAKER) (test code = 8.1 g/dL 12.0-15.0 L 410) HEMATOCRIT (BEAKER) (test code = 24.0 % 36.0-45.0 L 411) POTASSIUM-STAT [id number] 09:50:00 Test Item Value Reference Range Interpretation Comments POTASSIUM (BEAKER) (test code = 5.4 meq/L 3.6-5.5 379) BLOOD GAS, [id number] 09:23:00 Test Item Value Reference Range Interpretation [...] code = 1819) 100.0 % SODIUM NA-STAT [id number] 09:23:00 Test Item Value Reference Range Interpretation Comments SODIUM (BEAKER) (test code = 381) 132 meq/L 135-148 L GLUCOSE-STAT [id number] 09:23:00 Test Item Value Reference Range Interpretation Comments GLUCOSE RANDOM (BEAKER) (test code 164 mg/dL 70-110 H = 652) CALCIUM, [id number] 09:23:00 Test Item Value Reference Range Interpretation Comments CALCIUM IONIZED (BEAKER) (test 1.05 mmol/L 1.12-1.27 L code = 698) PH, BLOOD (BEAKER) (test code = 7.44 1810) POTASSIUM-STAT [id number] 09:22:00 Test Item Value Reference Range Interpretation Comments POTASSIUM (BEAKER) (test code = 4.0 meq/L 3.6-5.5 379) HGB/HCT (H&H) - STAT [id number] 09:22:00 Test Item Value Reference Range Interpretation Comments HEMOGLOBIN (BEAKER) (test code = 12.2 g/dL 12.0-15.0 410) HEMATOCRIT (BEAKER) (test code = 36.0 % 36.0-45.0 411) RAD, CHEST, 1 VIEW, NON [id number] 07:12:00Reason for exam:->preopShould this be performed at the bedside?->YesFINAL REPORT INDICATION: preop COMPARISON: None TECHNIQUE: Single frontal view of the chest. FINDINGS: Lungs and pleura: Clear lungs. No effusion.Heart and mediastinum: Normal heart size. Unremarkable mediastinal contours.Osseous structures: No acute abnormality.Other: None. IMPRESSION: No acute intrathoracic abnormality. Signed: Deirdre De Jesus MDReport Verified Date/Time: 07/29/2019 07:12:45 [id number] 07:01:00 Test Item Value Reference Range Interpretation Comments PARTIAL THROMBOPLASTIN TIME 31.2 seconds 22.5-36.0 (BEAKER) (test code = 760) BASIC METABOLIC [id number] 05:57:00 Test Item Value Reference Range Interpretation [...] 1092) DATA TO CALCULA TE ESTIMATED GFR. [id number] 05:51:00 Test Item Value Reference Range Interpretation Comments MAGNESIUM (BEAKER) (test code = 1.9 mg/dL 1.6-2.6 627) [id number] 05:35:00 Test Item Value Reference Range Interpretation [...] is2.5-3.5 for patients wiht mechanical heart valves.PROTHROMBIN [id number] 05:34:00 Test Item Value Reference Range Interpretation [...] mechanical heart valves.CBC W/PLT COUNT & AUTO [id number] 05:24:00 Test Item Value Reference Range Interpretation [...] % 0-1 PERCENT (BEAKER) (test code = 2807)
[2021-06-14] MEDS ORDERED: FENTANYL CITR 100 MCG/2 ML ONE ×2 (19:12→20:07)
--- NOTE | 2021-06-14 19:41 | RAD REPORT ---
EXAM DESCRIPTION: RAD - Chest Single View - 06/14/2021 7:25 pm CLINICAL HISTORY: fall, chest pain COMPARISON: May 2020 TECHNIQUE: AP portable chest image was obtained 06/14/2021 7:25 pm . FINDINGS: Lung volumes are very low. Supine portable technique further contributes to exam limitatio ns. No pulmonary contusion or acute lung parenchymal process identifiable. Heart and vasculature are normal. No pneumothorax or pleural fluid collection identified. No gross bone abnormality seen. Most of the right shoulder joint is obscured from view. No acute aortic findings suspected. IMPRESSION: Limited portable chest examination without acute cardiopulmonary finding.
--- NOTE | 2021-06-14 19:42 | RAD REPORT ---
EXAM DESCRIPTION: Shoulder Right 2 View - 06/14/2021 7:26 pm CLINICAL HISTORY: fall, right shoulder pain COMPARISON: No comparisons TECHNIQUE: Internal and external rotation views of the right shoulder were obtained. FINDINGS: There is no fracture or dislocation. No AC joint separation or significant AC joint degen erative change. No acute or suspicious findings. IMPRESSION: Negative two-view right shoulder examination.
--- NOTE | 2021-06-14 19:46 | RAD REPORT ---
EXAM DESCRIPTION: CT - CTHCSPWOC - 06/14/2021 7:20 pm CLINICAL HISTORY: fall, head injury COMPARISON: Shoulder Right 2 View dated 06/14/2021; Chest Single View dated 06/14/2021 TECHNIQUE: Axial 5 mm thick images of the head were obtained. Axial 2 mm thick images of the cervic al spine were obtained with sagittal and coronal reconstruction images generated and reviewed. All CT scans are performed using dose optimization technique as appropriate and may include automated exposure control or mA/KV adjustment according to patient size. FINDINGS: No intracranial hemorrhage, mass, edema or acute intracranial finding. No suspicion for ac bill moore's slough infarction. No extra-axial fluid collections. Mastoid air cells and paranasal sinuses are clear. No globe or orbit abnormality seen. Mild to moderate atrophy changes are present ventricles in propor tion to volume loss. Chronic ischemic changes are mild. Arterial and physiologic calcifications are p resent. Cervical body height and alignment are normal. No disk space narrowing. No fracture or acute bony abn ormality. Central canal detail is inherently limited. There is a displaced fracture of the medial shaft clavicle near the sternoclavicular joint. The media l head of the clavicle remains normally positioned relative to the manubrium. Hematoma seen in the stroud perior soft tissues with thickening as well in the sternocleidomastoid muscle near the base of the ne ck. IMPRESSION: Mildly displaced medial clavicle fracture without dislocation of the medial clavicle hea d. There is an associated small hematoma in the soft tissues superior to the fracture site. Negative CT head examination for acute or significant finding. Patient has mild to moderate atrophy a nd mild chronic ischemic change Negative CT cervical spine examination for acute or significant finding.
[2021-06-14] MEDS ORDERED: ONDANSETRON 4 MG/2 ML VIAL ONE (21:08)
[2021-06-14] MEDS ORDERED: MORPHINE 4 MG/ML SYR ONE (21:08)
[2021-06-14] MEDS ORDERED: NA CHLORIDE 0.9% 50 ML ONE (21:08)
[2021-06-14] MEDS ORDERED: ACETAMINOPHEN 325 MG TABLET ONE (21:47)
--- NOTE | 2021-06-14 22:01 | RAD REPORT ---
EXAM DESCRIPTION: CT - Thorax Wo Con - 06/14/2021 9:28 pm CLINICAL HISTORY: fall, trauma COMPARISON: Thorax W/ Con dated 07/27/2019; Head C Spine Mpr Wo Con dated 06/14/2021 TECHNIQUE: Axial 5 mm thick images of the chest were obtained without IV contrast. All CT scans are performed using dose optimization technique as appropriate and may include automated exposure control or mA/KV adjustment according to patient size. FINDINGS: No pulmonary contusion or acute lung parenchymal process seen. No mass or infiltrate seen. No pleural thickening or pleural effusion. No pneumothorax. No abnormal mediastinal or hilar masses or lymphadenopathy seen. No gross aortic or pulmonary artery finding suspected. Assessment is limited in the absence of IV contrast. No cardiomegaly or pericardi al effusion. Sternotomy wires are in place. Displaced medial right clavicle fracture is again noted. Sternoclavicular joint is intact. There is a small amount of hematoma at the fracture site. No acute rib fractures seen. Old rib trauma changes are present to the anterior upper right chest sim ilar 2019. IMPRESSION: Displaced medial right clavicle fracture is again noted. Head of the clavicle is normall y positioned at the sternoclavicular joint. No pneumothorax or pulmonary contusion. No additional acute bone process seen.
--- NOTE | 2021-06-14 22:21 | ER ---
Nurse's Notes [facility] Name: Ivet Calderon Age: 70 yrs Sex: Female : 1950 Arrival Date: 06/14/2021 Time: 18:33 Bed 7 Private MD: Diagnosis: Fracture of clavicle Presentation: 06/14 18:37 Chief complaint: Patient states: Pain to R clavicle that began after falling while ss standing on a chair attempting to hang a picture on the wall. Sling applied by EMS en route to ED. Zofran 4 mg IVP and Fentanyl 50 mcg IVP given EMS. Care prior to arrival: IV initiated. 22 GA, in the left wrist. Mechanism of Injury: Fall SEE TRIAGE NOTE. Trauma event details: Injury occurred in the [facility], Injury occurred: at home. Injury occurred: June 14, 2021. 18:37 Acuity: DORYS 3 ss 18:37 Method Of Arrival: EMS: [facility] ss 18:45 Coronavirus screen: Vaccine status: Patient reports being unvaccinated. Client denies ss travel out of the [place] in the last 14 days. Ebola Screen: Patient denies exposure to infectious person. Patient denies travel to an Ebola-affected area in the 21 days before illness onset. Initial Sepsis Screen: Does the patient meet any 2 criteria? No. Patient's initial sepsis screen is negative. Does the patient have a suspected source of infection? No. Patient's initial sepsis screen is negative. Risk Assessment: Do you want to hurt yourself or someone else? Patient reports no desire to harm self or others. Onset of symptoms was June 14, 2021. Trauma Activation: Not Applicable Physician: ED Physician; Name: ; Notified At: ; Arrived At: Physician: General Surgeon; Name: ; Notified At: ; Arrived At: Physician: Radiology; Name: ; Notified At: ; Arrived At: Physician: Respiratory; Name: ; Notified At: ; Arrived At: Physician: Lab; Name: ; Notified At: ; Arrived At: Historical: - Allergies: 18:46 Morphine; ss - PMHx: 18:46 Diabetes - NIDDM; Hypertension; ss - Immunization history: Last tetanus immunization: unknown. - Social history:: Smoking status: Patient denies any tobacco usage or history of. Screenin:37 Abuse screen: Denies threats or abuse. Denies injuries from another. Tuberculosis ss screening: Never had TB. 19:40 Nutritional screening: No deficits noted. Fall Risk Fall in past 12 months (25 points). ea Primary Survey: 18:37 NO uncontrolled hemorrhage observed. A: The patient is alert. Airway: patent, No ss supplemental oxygen in use on arrival. Oral cavity: clear, Trachea midline. Breathing/Chest: Respiratory pattern: regular, Respiratory effort: spontaneous, unlabored, Chest inspection: symmetrical rise and fall of the chest. Circulation: Skin color: pink, Skin temperature: warm. Disability Alert. Exposure/Environment: There is no evidence of uncontrolled external bleeding. 19:40 Reassessment Airway Airway Patent Breathing/Chest Respiratory pattern Regular ea Respiratory effort Spontaneous Unlabored. Assessment: 18:37 General: Appears uncomfortable, Behavior is cooperative, anxious, Denies fever, feeling ss ill, fatigue, chills. Pain: Complains of pain in right clavicle Pain currently is 10 out of 10 on a pain scale. Quality of pain is described as tender, Pain began suddenly, Is continuous. Neuro: Level of Consciousness is awake, alert, obeys commands, Oriented to person, place, time, situation, [place] are equal bilaterally Speech is normal, Denies dizziness, numbness headache. EENT: Oral mucosa is moist. Throat is clear. Cardiovascular: Pulses are palpable in right radial artery and left radial artery Chest pain is denied. Respiratory: Airway is patent Trachea midline Respiratory effort is even, unlabored, Respiratory pattern is regular, symmetrical. GI: Abdomen is round non-distended, Patient currently denies abdominal pain, nausea. : No signs and/or symptoms were reported regarding the genitourinary system. Derm: Skin is intact, is healthy with good turgor, Skin is dry, Skin is pink, warm \T\ dry. normal. Musculoskeletal: Range of motion: limited in right shoulder. Musculoskeletal: Swelling present in right clavicle. 19:40 General: Appears in no apparent distress. Behavior is calm, cooperative. Neuro: Level ea of Consciousness is awake, alert, obeys commands, Oriented to person, place, time. Derm: Skin is pink, warm \T\ dry. 22:50 Reassessment: Patient and/or family updated on plan of care and expected duration. Pain ea level reassessed. Patient is alert, oriented x 3, equal unlabored respirations, skin warm/dry/pink. Discharge instruction given to patient verbalized the understanding of instruction, pt left ED ambulatory accompanied by grandson, pt tolerating well. Vital Signs: 18:37 BP 193 / 83; Pulse 89; Resp 16; Temp 98.8(TE); Pulse Ox 97% on R/A; Weight 74.84 kg; ss Height 5 ft. 1 in. (154.94 cm); Pain 10/10; 20:01 BP 193 / 72; Pulse 74; Resp 18; Temp 98.7; Pulse Ox 98% on R/A; ch4 22:45 BP 160 / 84; Pulse 80; Resp 18; Temp 98; Pulse Ox 98% ; ea 18:37 Body Mass Index 31.18 (74.84 kg, 154.94 cm) ss Jason Coma Score: 18:37 Eye Response: spontaneous(4). Verbal Response: oriented(5). Motor Response: obeys ss commands(6). Total: 15. Trauma Score (Adult): 18:37 Eye Response: spontaneous(1); Verbal Response: oriented(1); Motor Response: obeys ss commands(2); Systolic BP: > 89 mm Hg(4); Respiratory Rate: 10 to 29 per min(4); Murchison Score: 15; Trauma Score: 12 ED Course: 18:33 Patient arrived in ED. ds1 18:36 Los Macias PA is PHCP. jmm 18:36 Ty Walsh MD is Attending Physician. jmm 18:37 Patient has correct armband on for positive identification. Bed in low position. ss 18:37 Patient maintains SpO2 saturation greater than 95% on room air. Thermoregulation: warm ss blanket given to patient. 18:40 Triage completed. ss 18:46 Arm band placed on right wrist. ss 19:20 CT Head C Spine In Process Unspecified. EDMS 19:25 Elsa Su, RN is Primary Nurse. ch4 19:25 Chest Single View XRAY In Process Unspecified. EDMS 19:25 Shoulder Right (2 View) XRAY In Process Unspecified. EDMS 19:25 Shoulder Right (2 View) XRAY Sent. ch4 19:25 Chest Single View XRAY Sent. ch4 21:28 Thorax Wo Con In Process Unspecified. EDMS 22:39 No provider procedures requiring assistance completed. IV discontinued, intact, ea bleeding controlled, No redness/swelling at site. Pressure dressing applied. Administered Medications: 18:51 Drug: fentaNYL (PF) 50 mcg Route: IVP; Site: left wrist; ss 19:30 Follow up: Response: No adverse reaction ea 19:45 Not Given (Other Intervention Used): fentaNYL (PF) 25 mcg IVP once; RASS on ADMIN: ea Combtv4, Very Agttd3, Agttd2, Rstlss1, AlertClm0, Drwsy-1, Lt Sdtn-2, Mod Sdtn-3, Dp Sdtn-4, UnArsble-5 19:49 Drug: fentaNYL (PF) 50 mcg Route: IVP; Site: right forearm; ch4 20:30 Follow up: Response: No adverse reaction ea 20:50 Drug: Zofran (Ondansetron) 4 mg Route: IVP; Site: left forearm; ea 22:43 Follow up: Response: No adverse reaction ea 20:50 Drug: morphine 4 mg Route: IVP; Site: left forearm; ea 22:39 Follow up: Response: No adverse reaction ea 21:50 Drug: Acetaminophen 650 mg Route: PO; ea 22:39 Follow up: Response: No adverse reaction ea 22:37 Drug: Lidoderm Patch 5 % (700 mg/patch) 1 patches Route: Topical; Site: affected area; ea Intake: 22:40 PO: 200ml (Water); Total: 200ml. ea Outcome: 22:20 Discharge ordered by . ame 22:40 Discharged to home ambulatory, with family. ea 22:40 Condition: stable 22:40 Discharge instructions given to patient, Instructed on discharge instructions, follow up and referral plans. medication usage, Demonstrated understanding of instructions, follow-up care, medications, Prescriptions given X 1. 22:41 Patient's length of stay was not longer than 2 hours. ea 22:52 Patient left the ED. ea Signatures: Dispatcher [employer] EDMS Los Macias PA PA jmm Sanford, Demi ds1 Gracie Fernandez RN RN ss Antunez, Elena, RN RN ea Herman, Christina, RN RN ch4 Corrections: (The following items were deleted from the chart) 22:53 22:53 BP 160 / 84; Pulse 80bpm; Resp 18bpm; Pulse Ox 98%; Temp 98F; ea ea
--- NOTE | 2021-06-14 22:22 | EDPHYS ---
Physician Documentation [facility] Name: Ivet Calderon Age: 70 yrs Sex: Female : 1950 Arrival Date: 06/14/2021 Time: 18:33 Bed 7 Private MD: ED Physician Ty Walsh HPI: 06/14 18:41 This 70 yrs old Female presents to ER via EMS with complaints of Fall Injury. [facility] 18:41 Details of fall: The patient fell from seated position. Onset: The symptoms/episode jmm began/occurred acutely, just prior to arrival. Associated injuries: The patient sustained Chest. This is a 70-year-old female with history of diabetes mellitus and hypertension the presents emergency department with right-sided shoulder pain and right-sided chest pain following a fall which occurred while she was standing on a chair. Patient is unsure whether she hit her head.. Historical: - Allergies: 18:46 Morphine; ss - PMHx: 18:46 Diabetes - NIDDM; Hypertension; ss - Immunization history: Last tetanus immunization: unknown. - Social history:: Smoking status: Patient denies any tobacco usage or history of. ROS: 18:41 Constitutional: Negative for fever, chills, and weight loss. jmm 18:41 Cardiovascular: Positive for chest pain, with movement. 18:41 : Positive for Right arm pain. 18:41 All other systems are negative. Exam: 18:41 Head/Face: atraumatic. Eyes: EOMI, no conjunctival erythema appreciated ENT: Moist jmm Mucus Membranes Neck: Trachea midline, Supple Cardiovascular: Regular rate and rhythm. No edema appreciated Respiratory: Normal respirations, no respiratory distress appreciated Abdomen/GI: Non distended, soft Back: Normal ROM Skin: General appearance color normal 18:41 Constitutional: The patient appears alert, awake, anxious, uncomfortable. 18:41 Chest/axilla: Swelling noted to the right clavicular region, the area is tender to palpation. 18:41 Musculoskeletal/extremity: Painful range of motion noted to the right shoulder, no bony tenderness or obvious deformity is appreciated, full radial pulse, full lean coach, neurovascular intact. 18:41 Skin: Appearance: Color: normal in color. 18:41 Neuro: Orientation: is normal, Mentation: is normal, Memory: is normal. 18:41 Psych: Behavior/mood is pleasant, cooperative. Vital Signs: 18:37 BP 193 / 83; Pulse 89; Resp 16; Temp 98.8(TE); Pulse Ox 97% on R/A; Weight 74.84 kg; ss Height 5 ft. 1 in. (154.94 cm); Pain 10/10; 20:01 BP 193 / 72; Pulse 74; Resp 18; Temp 98.7; Pulse Ox 98% on R/A; ch4 22:45 BP 160 / 84; Pulse 80; Resp 18; Temp 98; Pulse Ox 98% ; ea 18:37 Body Mass Index 31.18 (74.84 kg, 154.94 cm) ss Crawford Coma Score: 18:37 Eye Response: spontaneous(4). Verbal Response: oriented(5). Motor Response: obeys ss commands(6). Total: 15. Trauma Score (Adult): 18:37 Eye Response: spontaneous(1); Verbal Response: oriented(1); Motor Response: obeys ss commands(2); Systolic BP: > 89 mm Hg(4); Respiratory Rate: 10 to 29 per min(4); Jason Score: 15; Trauma Score: 12 MDM: 18:41 Patient medically screened. [facility] 22:14 Data reviewed: vital signs, nurses notes. Counseling: I had a detailed discussion with [facility] the patient and/or guardian regarding: the historical points, exam findings, and any diagnostic results supporting the discharge/admit diagnosis. 22:18 Counseling: I had a detailed discussion with the patient and/or guardian regarding: [facility] radiology results, the need for outpatient follow up, to return to the emergency department if symptoms worsen or persist or if there are any questions or concerns that arise at home. ED course: AUTOPSY ASSISTANT aware reviewed. Andre treat with opiod medication for pain. Patient given follow up with ortho. 06/14 18:42 Order name: Chest Single View XRAY; Complete Time: 19:45 [facility] 06/14 18:42 Order name: Shoulder Right (2 View) XRAY; Complete Time: 19:45 [facility] 06/14 18:42 Order name: CT Head C Spine; Complete Time: 19:58 [facility] 06/14 21:21 Order name: Thorax Wo Con; Complete Time: 22:08 [facility] 06/14 18:42 Order name: Saline Lock; Complete Time: 18:46 [facility] 06/14 22:25 Order name: [place]; Complete Time: 22:25 ea Administered Medications: 18:51 Drug: fentaNYL (PF) 50 mcg Route: IVP; Site: left wrist; ss 19:30 Follow up: Response: No adverse reaction ea 19:45 Not Given (Other Intervention Used): fentaNYL (PF) 25 mcg IVP once; RASS on ADMIN: ea Combtv4, Very Agttd3, Agttd2, Rstlss1, AlertClm0, Drwsy-1, Lt Sdtn-2, Mod Sdtn-3, Dp Sdtn-4, UnArsble-5 19:49 Drug: fentaNYL (PF) 50 mcg Route: IVP; Site: right forearm; ch4 20:30 Follow up: Response: No adverse reaction ea 20:50 Drug: Zofran (Ondansetron) 4 mg Route: IVP; Site: left forearm; ea 22:43 Follow up: Response: No adverse reaction ea 20:50 Drug: morphine 4 mg Route: IVP; Site: left forearm; ea 22:39 Follow up: Response: No adverse reaction ea 21:50 Drug: Acetaminophen 650 mg Route: PO; ea 22:39 Follow up: Response: No adverse reaction ea 22:37 Drug: Lidoderm Patch 5 % (700 mg/patch) 1 patches Route: Topical; Site: affected area; ea Disposition Summary: 06/14/21 22:20 Discharge Ordered Location: Home [facility] Condition: Stable [facility] Diagnosis - Fracture of clavicle [facility] Followup: [facility] - With: Private Physician - When: 2 - 3 days - Reason: Recheck today's complaints, Continuance of care, Re-evaluation by your physician Discharge Instructions: - Discharge Summary Sheet [facility] - Clavicle Fracture [facility] Forms: - Medication Reconciliation Form [facility] - Thank You Letter [facility] - Antibiotic Education [facility] - Prescription Opioid Use [facility] - Work release form ea Prescriptions: - acetaminophen-codeine 300-15 mg Oral tablet - take 1 tablet by ORAL route every 4-6 hours; 20 tablet; Refills: 0, Product [facility] Selection Permitted Signatures: Dispatcher [employer] Los Denis PA PA jmm Smirch, Shelby, RN RN ss Brown, Naomie, RN RN ea Georges, Elsa, RN RN ch4 Corrections: (The following items were deleted from the chart) 21: 19:47 Thorax W/ Con+CT.PATSY.PATRICIA ordered. EDMS EDMS
[2021-06-14] MEDS ORDERED: LIDOCAINE 4% PATCH ONE (22:57)
[2021-06-14 23:14] VITALS: BP 193/72; TEMP 98.7; O2SAT 98
== END 2021-06-14 22:52 | disposition home or self-care (01) ==
LOC: ER 18:32
DX: S42.001A Fracture of unspecified part of right clavicle, initial encounter for closed fracture (principal); W07.XXXA Fall from chair, initial encounter; I10 Essential (primary) hypertension; Z88.5 Allergy status to narcotic agent
CPT/HCPCS: 70450; 71250; 72125; 71045; 73030; J3010 ×2; J2405

== ENCOUNTER 2021-06-16 09:33 | Emergency (ER) | payer OTHER ==
--- OUTSIDE RECORDS SUMMARY | 2021-06-16 09:40 | XMS REPORT | Continuity of Care Document ---
:1950 Author Organization [facility] t Address [address] [place] [address] Care Team Providers Name Role Phone Juan Gallardo MD Attending Clinician [phone] Marleni Moe MD Attending Clinician BLANCA MONIQUE Attending Clinician Unavailable EVELYN GALLARDO Admitting Clinician Unavailable BLANCA MONIQUE Admitting Clinician Unavailable Payers Payer Name Policy Type Policy Number Effective Date Expiration Date S ource Problems Condition Condition Condition Status Onset Resolution Last Treating Co mments Source Name Details Category Date Date Treatment Clinician Date Left Left Disease Active 2019-[address] [facility] carotid carotid 2-07 [facility] - artery artery 00:00: Medical stenosis stenosis 00 Center S/P CABG x S/P CABG x Disease Active 2018-[address] 1 by 1 by 0-16 Reji Gallardo on [facility] on 00:00: Me dical 07/29/2019 07/29/2019 00 Ce nter Coronary Coronary Disease Active 2018-10 [facility] disease [facility] Medical 00 Center Acute Acute Disease Active [facility] respirator respirator Daniela kes - y y Medical insufficie insufficie Ce nter ncy ncy Acute Acute Disease Active [facility] blood loss blood loss [facility] - anemia anemia [facility] Hyperglyce Hyperglyce Disease Active [facility] Chronic Chronic Disease Active CHI [...] Stop Date Source Natural brother Heart attack [facility] Natural father Diabetes [facility] Natural father Heart disease [facility] Natural mother [facility] Natural mother Heart attack [facility] Social History Social Habit Start Date Stop Date Quantity Comments [facility] Std Drinks Medica l [place] History [facility] - Alcohol Binge Medical Tina ter Sex Assigned At [facility] Medical [place] Tobacco use and 2020-10-03 2020-10-03 Never used [facility] - exposure 00:00:00 00:00:00 [facility] Alcohol intake 2020-10-03 2020-10-03 [facility] - 00:[facility]:00 00:00:00 non-drinker of Medical Ce nter alcohol (finding) History SDOH 2019-07-28 2019-07-28 [address] [facility] [address] joao - Alcohol Frequency 00:00:00 00:00:00 [facility] Smoking Status Start Date Stop Date Source Never smoker [facility] edical [place] Medications Ordered Filled Start Stop Current Ordering Indication Dosage Frequency Signature Comments Components Source Medication Medication Date Date Medication? Clinician (SIG) Name Name aspirin 81 2019-10 Yes 81mg QD Take [address] MG EC 2-21 by mouth [facility] - tablet 11:03: daily. Medical [facility] Center atorvastati 2019-10 Yes 80mg QD Take [...] 25 MG 52 times Center tablet daily. aspirin 81 2019-10 Yes 81mg QD Take [address] MG EC 2-21 by mouth [facility] - tablet 11:03: daily. Medical [facility] Center atorvastati 2019-10 Yes 80mg QD Take [...] (six) Center hours as needed for pain. traMADoL 2019-10 Yes 50mg Take [address] (ULTRAM) 50 2-08 by mouth Luke s - mg tablet 00:00: every 6 Medic al 00 (six) Center hours as needed for pain. losartan 2019-10- No 25mg QD Take [address] (COZAAR) 25 11-14 by mouth Dhruv es - MG tablet 13:32: 00:00 daily. Medic al 26 :00 [place] losartan 2019-10 2020- No 25mg QD Take [address] (COZAAR) 25 11-14 by mouth Dhruv es - MG tablet 13:32: 00:00 daily. Medic al 26 :00 [place] acetaminoph 2019-10- No 1{tbl} Take [address] en-codeine 11-14 tablet by Dhruv es - (TYLENOL 13:32: 00:00 mouth Medical #3) 300-30 20 :00 every 6 Center mg per (six) tablet hours as needed for Pain. acetaminoph 2019-10- No 1{tbl} Take [address] en-codeine 11-14 tablet by Dhruv es - (TYLENOL 13:32: 00:00 mouth Medical #3) 300-30 20 :00 every 6 Center mg per (six) tablet hours as needed for Pain. Levemir 2019-10 Yes 15U QD Inject 15 [facility] t FlexTouch 1-04 Units [facility] - U-100 00:00: subcutaneo Medica l Insuln 100 00 usly Center unit/mL (3 nightly. mL) InPn injection Levemir 2019-10 Yes 15U QD Inject 15 [facility] t FlexTouch 1-04 [facility] - U-100 00:00: subcutaneo Medica l Insuln 100 00 usly Center unit/mL (3 nightly. mL) InPn injection citalopram 2019-10 Yes 20mg QD Take [address] (CeleXA) 20 0-14 by mouth Luke s - MG tablet 00:00: daily. Medica l 00 [place] citalopram 2019-10 Yes 20mg QD Take [address] (CeleXA) 20 0-14 by mouth Luke s - MG tablet 00:00: daily. Medica l 00 [place] metoprolol 2018-10- No 25mg Q.5D Take [address] (LOPRESSOR) 0-22 10-21 tablet (25 L ukes - 25 MG 00:00: 23:59 mg total) Medica l tablet 00 :00 by mouth 2 Center (two) times daily. metoprolol 2018-10 No 25mg Q.5D Take [address] (LOPRESSOR) 0-22 10-21 tablet (25 L ukes - 25 MG 00:00: 23:59 mg total) Medica l tablet 00 :00 by mouth 2 Center (two) times daily. lisinopril Yes 40mg QD Take [address] (PRINIVIL,Z 6-24 by mouth Luke s - ESTRIL) 20 00:00: daily . Medi albert MG tablet 00 Center lisinopril Yes 40mg QD Take [address] (PRINIVIL,Z 6-24 by mouth Luke s - ESTRIL) 20 00:00: daily . Medi albert MG tablet 00 Center Vital Signs Vital Name Observation Time Observation Value Comments Source Systolic blood 2020-10-03 11:00:00 171 mm[Hg] [facility] Diastolic blood 2020-10-03 11:00:00 71 mm[Hg] [facility] Heart rate 2020-10-03 11:00:00 78 /min [facility] Body temperature 2020-10-03 11:00:00 37 [place] [facility] Respiratory rate 2020-10-03 11:00:00 18 /min [facility] Body height 2020-10-03 11:00:00 154.9 cm [facility] Body weight 2020-10-03 11:00:00 75.297 kg [facility] BMI 2020-10-03 11:00:00 31.37 kg/m2 [facility] Oxygen saturation in 2020-10-03 11:00:00 98 /min room air [facility] - Arterial blood by Medical Ce nter Pulse oximetry Procedures Procedure Date / Time Performed Performing Clinician Aliyah e POCT-GLUCOSE METER 2020-09-20 11:36:00 Juan Gallardo [facility] POCT-GLUCOSE METER 2020-09-20 07:33:00 Juan Gallardo [facility] CBC W/PLT COUNT & AUTO 2020-09-20 00:18:00 Vanessa Jasmine [facility] BASIC METABOLIC PANEL 2020-09-20 00:18:[address] [facility] (7) [facility] MAGNESIUM 2020-09-20 00:18:00 [facility]OS[facility] 2020-09-20 00:18:00 [facility] CALCIUM, IONIZED 2020-09-20 00:18:00 [place] [facility] TISSUE EXAM 2020-09-19 14:54:[address] [facility] POCT-ACT 2020-09-19 14:15:[address] [facility] POCT-ACT 2020-09-19 14:03:[address] [facility] ENDARTERECTOMY,CAROTID 2020-09-19 12:52:00 PaulinaJuan JEOVANY [facility] PROTHROMBIN TIME/INR 2020-09-19 10:22:00 Judah Jasminesimrannoemy [facility] APTT 2020-09-19 10:22:00 MitaliVanessa [facility] POCT-GLUCOSE METER 2020-09-19 09:06:00 PaulinaJuan galindo [facility] CBC W/PLT COUNT & AUTO 2020-09-13 14:52:00 PaulinaJuan galindo [facility] - DIFFERENTIAL [facility] BASIC METABOLIC PANEL 2020-09-13 14:52:00 PaulinaJuan galindo [facility] (7) [facility] PROTHROMBIN TIME/INR 2020-09-13 14:52:00 Paulina Juan [facility] TYPE AND SCREEN, 2020-09-13 14:52:00 PaulinaJuan galindo [facility] es - AUTOMATED [facility] ECG 12-LEAD 2020-09-13 14:37:[address] [facility] Plan of Care Planned Activity Planned Date Details Comments Source Future Scheduled 2020-10-[address] [facility] - Test 00:00:00 (12+) [code = Medical Center DEPRESSION SCREENING (12+)] Future Scheduled 2020-10-[address] [facility] - Test 00:00:00 (12+) [code = Medical Center DEPRESSION SCREENING (12+)] Future Scheduled 2020-06-[address] [facility] - Test 00:00:00 (#1) [code = Medical [place] INFLUENZA VACCINE (#1)] Future Scheduled 2020-06-[address] [facility] - Test 00:00:00 (#1) [code = Medical Center INFLUENZA VACCINE (#1)] Future Scheduled 2019-10-[address] [facility] - Test 00:00:00 WELLNESS (YEAR 2 or Medical Center FIRST YEAR if no IPPE) [code = MEDICARE ANNUAL WELLNESS (YEAR 2 or FIRST YEAR if no IPPE)] Future Scheduled 2019-10-[address] [facility] - Test 00:00:00 WELLNESS (YEAR 2 or Medical Center FIRST YEAR if no IPPE) [code = MEDICARE ANNUAL WELLNESS (YEAR 2 or FIRST YEAR if no IPPE)] Future Scheduled 2001 SHINGLES VACCINES ([address] [facility] - Test 00:00:00 of 2) [code = Medical Center SHINGLES VACCINES (1 of 2)] Future Scheduled 2001 SHINGLES VACCINES ([address] [facility] - Test 00:00:00 of 2) [code = Medical Center SHINGLES VACCINES (1 of 2)] Future Scheduled 1970 DTAP/TDAP/TD VACCINES [facility] Test 00:00:00 (1 - Tdap) [code = Medical C enter DTAP/TDAP/TD VACCINES (1 - Tdap)] Future Scheduled 1970 DTAP/TDAP/TD VACCINES [facility] - Test 00:00:00 (1 - Tdap) [code = Medical C enter DTAP/TDAP/TD VACCINES (1 - Tdap)] Future Scheduled 1969 HEPATITIS C [facility]CRE[facility]ING [facility] Test 00:00:00 [code = HEPATITIS C Medical Center SCREENING] Future Scheduled 1969 HEPATITIS C [facility]CRE[facility] Test 00:00:00 [code = HEPATITIS C Medical Center SCREENING] Future Scheduled [address] [facility] - Test 00:00:00 malignant neoplasm of Medica l Center breast (procedure) [code = 589309039] Future Scheduled [address] [facility] - Test 00:00:00 malignant neoplasm of Medica l Center colon (procedure) [code = 736676463] Future Scheduled [address] [facility] - Test 00:00:00 malignant neoplasm of Medica l Center breast (procedure) [code = 431214689] Future Scheduled [address] [facility] - Test 00:00:00 malignant neoplasm of Medica l Center colon (procedure) [code = 458497782] Encounters Start End Encounter Admission Attending Care Care Encounter Source Date/Time Date/Time Type Type Clinicians Facility Department ID 2020-10-03 2020-10-04 Office SARAH Gallardo [id number] 10:58:57 06:55:34 Visit [facility] 2020-10-03 2020-10-04 Office Paulina [facility] [id number] 10:58:57 06:55:34 Visit [facility] 2020-09-19 2020-09-20 [facility] [id number] 08:52:00 16:45:00 Encounter [facility] 2020-09-19 2020-09-20 [facility] [id number] 08:52:00 16:45:00 Encounter [facility] 2020-09-19 2020-09-19 Anesthesia [facility] [id number] 13:06:00 15:11:00 Event [facility] 2020-09-19 2020-09-19 Anesthesia [facility] [id number] 13:06:00 15:11:00 [facility] 2020-09-[address] [facility] [id number] 11:00:00 14:00:00 [facility] 2020-09-19 2020-09-[address] [facility] [id number] 11:00:00 14:00:00 [facility] 2020-09-16 2020-09-[address] [facility] [id number] 00:00:00 00:00:00 [facility] 2020-09-16 2020-09-16 [id number] 00:00:00 00:00:00 [facility] 2020-09-13 2020-09-13 Office Paulina [facility] [id number] 14:23:27 14:53:27 Visit [facility] 2020-09-13 2020-09-[address] [id number] 14:23:27 14:53:[address] [facility] 2020-09-13 2020-09-13 Orders [facility] [id number] 00:00:00 00:00:00 Only [facility] 2020-09-13 2020-09-13 Orders [facility] [id number] 00:00:00 00:00:00 Only [facility] Results Test Description Test Time Test Comments Results Result Comments Source Tissue Exam 2020-09-23 18:50:00 Test Item Value Reference Range Interpretation Comme nts Case Report (test code = 104) Surgical Pathology Report Case: [id number] Authorizing Provider: Juan Gallardo, Collected: 09/19/2020 02:54 PM Ordering Location: [facility] Received: 09/19/2020 03:32 PM PERIOPERATIVE SERVICES Pathologist: Jarad Menchaca MD Specimen: Plaque, LEFT CAROTID ARTERY PLAQUE DIAGNOSIS (test code = 3220) s5nwhCFcBIXsa9bmYKWfvKVdVpBsRzXgEbRuZj pc dWMxIHtccnRmMVxlcGljOTIwMFxhbnNpXHNwbHRw I1QncflxSQsyMV7qYX0iwXjyxUYgdQLcYSIgJyTu b7ngn575bZMpa6lwVESIxdtmeRl2xZgkB14yy0Y4 SjpsC85byIPbPBbzrGKlghkyiaXfWAZRHYQQTOmg BOOTZJAOKPGIDQoQGNJKZtRJUpZPLyNXEM1HDYgu sXZtALLOCEIZEydZZPXPIKODG1RSTJGDM3XFNdRH RJZVXGPyWNLgdf02MBV9PbAht1B1AYD5XGQeXMIc e0eiWIEywVUdPoPcLnPsCxWiCuphdIPqRHUyTtHg f4toy674iJBdx1zwRYSrMlD8dJDqZWZzdEQtH519 LUCxEXdxb2rvv5PuFIHbuZIsg5F3UXIRfjkvnTe2 bVghU26ea9R3KhlqI4qwHCGvAODtW4JzWP9ySTBf Tee1IFH2EUR4SNMbOBApP8ZjHM3lQARnqANlYIh1 z3gohQvqTCNmDIW1g8byOXitldKzAX1ado9reSw5 u0ngliKyNROoIALnuQCYZBDzV2NpaKsmDe0auDb1 kRytArmnYHC6Mml8EN5hwu48sil6bTauYYWgdime LxJ4QKlpIRWdjgcvCJi9EVrpNVJtmZE1HXFmjKHd P3RnHGUjYI3aywx9KBS8CTkbWDMwGtJ8HWOurIZg ZQKohFlnMZfgo797TIR2MzCbMZ6oX0Azx7R4xY2n gLKkEXJnpIWwHlOrIGNjkq0izVMjBIxsk4YrQTI6 isO5wZUdrEBdHNYjLfY2AWyaVP8dfe15FQKxDOP5 km7osCYnyBbfddGauJLpFEmgL2YfXPOkx534LDLb M7BmYANba9J9krLtKsWrWBReuCU5xvT6MBSzMJ0p bdwui0uxPOiiMExnOYNfsyZ6yiR8WSLzgAScW5Gu iB7oUSCuPV7vfzhnq6ktSJZ6FAlaWSHaNXM5LnWy YUVuz0Xnkdq8TxJxe8JadCCjEGtxN81rk060VHKw mpWlV5kknOGfxdbrdWOswveyUNkkeiX7PRSbMRyi ttrlSQNgLFalG1laJiGeBLIqvLpyAPsaa5LrZKSr PARsHvImoFMwCIIvVzd1ABPwuZXdKQImPkRtS1ht sewqGtCATNVwi2dxY7jegSMUvWKbF7FsQOkixxZv XHclTGwfXKFqITH0LN51DlwwBDQbmu49 CPT Code(s) (test code = 3357) o5itsRNbZQPggOM7LbTwSMKcx9hrk5GltREr cGFy ZKzvwNQnjyAyru77iLD7pY99EV9oMXSgPzC7CVZy jnK9Btu7OGPxIEKebCGeN555o3liw0jsomZdpGO4 wDwmIAWwJOJhHAqlJSInYpNjJZkoDFH5YGt1DjSa XHBhcn0= CLINICAL HISTORY (test code = 3356) l2ukbJFoNFXvoLV2SeYrOMYvd0qxu1R sdHBncGFy XIykvZKrxbBgor30kWH8gT18FQ1qUSFnChE4NIAz dfS7Khl9DKUrRBAlwGLmQ010r3lao7efvaXyxCR2 oBhtIAXaPZQhHVpkRDIuNiMqJOUua8IiKRcvG84e e9brHgLnhAQwuPEgSDSnfInqKHK0CT9ky0wmQMRu cn0= SPECIMEN SOURCE (test code = 3377) d1qbuWTlBFGzkQE9PuLvKVYux8mgg9Ab dHBncGFy MCyovPAlmwUrxq60cUB6zC50QB2rGDUbRoG5NMBb jmJ0Yoe6CPPoNTGraINtK197y6rdu0jbibYwlHY1 fVxwYXJkXHBsYWluXGZzMjAgUGxhcXVlIFxwYXJ9 GROSS DESCRIPTION (test code = 3366) u6wahTWsPLRzdDH9VoSoVQQzw7exm5 BsdHBncGFy XXwmsDRptaFvxg66eWI9qC38HQ4kGFMjCjQ4AKAr vbK6Slt5IQEtHOSesWHeC340e9fqq3njlqGqkPK0 xOsjAPBpTTUmHCmvCBOfLaZxTmZwROw0MPVcDhYk g0ygtAVfEFyxECQ0yZDoQSHrHASzHHPzTF52N1Ek vpEvHPwvUTRaICIgeA3lSQ96xRSjopMxndGiGaDs ICH6AAjaiDJmqHOhPBOraHikOESqmCKscZMclQIi xSNzFRuvGTZpPt7kMHqhQu7fQGSaJWzrvrUmaLvp cnDbscJmyGRqcHSoNaV3SAimo3ijzOdedOLmBWSh WFFwKUtlnZnmpLWqQ9ZhH0eexZJsrIarer2nGSvj OCFnGKSgnBVfADzeVVLnacjouBj0KVGsS3Axq29r SXG0npYuXTVcGXjrQFI5QPfzw1cbpY3rr6uirsEf mKOpX1UhG2sxhNUdQYUpicWhuo0fDBlkKTDwVBYa pAKgCAzuMTK5Gq2hcYOuHKXtxcKgfFTqIK33sWHh bOwiAy3xgW37gB8dTNTyC7HdU1hiqNJlaMywlqQo ptJORV4eDUwZJ1XuDWjnYLQ4 MICROSCOPIC DESCRIPTION (test code = j4qfbVZnRJZlnSC3VuOhSMXkz4kjt7 BsdHBncGFy 3371) MSntbAPdjyRrqo14qCL5rJ32GY0wTJAgMsL3IWKw idG8Gup5UITlXGEnjDQeH624u1drq5sbhtQkcQT0 lQisMDLrHYMwTVkrYWPdGkXwGTYzRy8vlTXeJUWt cn0= [id number] 18:50:00 Test Item Value Reference Range Interpretation Comments Case Report (test code Surgical Pathology = 104) Report Case: [id number] Authorizing Provider: Juan Gallardo, Collected: 09/19/2020 02:54 PM Ordering Location: [facility] Received: 09/19/2020 03:32 PM PERIOPERATIVE SERVICES Pathologist: Jarad Menchaca MD Specimen: Plaque, LEFT CAROTID ARTERY PLAQUE DIAGNOSIS (test code = g1bonJCfGFQro8ceHKKcjSG 3220) uZzEwMzNcZnRuYmpcdWMxIH tccnRmMVxlcGljOTIwMFxhb eSyRZNoeAUzI0GcoglxSQei YD5hRR0qbSivrSNvdEVlLSW iXuGqh8jkh715dWAsq5yxTS DRfkyosQr2fYjbX93qk4M7A dwnP69hxHRxWTsqtTFkkhpf czIwIEFSVEVSWSwgTEVGVCB DQVJPVElELCBFTkRBUlRFUk BOSE8MZFuoqFGxAMBULFEOE vmQDEASZBFSO2CYNAZOI5AK JmEHINPIDRUsPNSfcf52XXT 5YbWgk7Y5RAN8IXNaZOKob2 lcZGVmbGFuZzEwMzNcZnRuY tjrgITvKBUwUoGbc4pim925 zNTla9deUEEySrT5kMYyNNO hoYCcS743HQEgJLelb7iei5 MwJNZgyRSzd1W4VLFRoqxym Kc0nHmmX03io2T5DnkaB0sh WAPfYYWjB2EtPG1sYOKjYrg 8HQW8GVF9TOXxOQTnT4DtXN 0bYNLctLWjFMv6t0nrgEkyX BUfNBN7g6pbEUbjtnBzFU0j dk8xuZv4f2ujhoOqPTQyJZS ppQSDOSJbQ9NokGrpUs3zqX n3rQsrWwxwWMU9Dsz0JL3gg c37cvu5aHjgPTDfcxvxLfY3 XQrsJGVuxxvlZHd6ZWpwHQV feUK4ARTtgPKnN6KwYAAhIK 0eitp8RGA6BUhyFYIlCjX9G IUohQMkABIpeDxxBOtif715 HAJ8ZvUnAC7fX8Ykg1J4bN3 maXRcZGVmdGFiNzIwXGZvcm 0usFFpLJybd7SlBTE5nyI4f GUyhIYkRDDgKqJ5LLnaNL6d zh85MSYrVPP7gu3rzEZpaNp bwcCqdMBzBNtsX9HqUVPan0 04CBQdY2MvVNPkt2I1tbTmN vDlIFForKQ2duH9KTGnQK8k bkiyp1euKNghJFwvIRVgowW 5sfE4GEMmjSIbH4MvgY3mDE LdOW5sfujlj4zlPWR9GXdqK VJzRQD2NwUjAGAbg9Rxqki0 VjQcr7FmuIMbXLtmP61vd80 3YPNijcGsR8mqdDLtxzjrkT JvdeulZBagrdP5BVEqXKjid ffsXXHjSGvoC5dwUiInEJLj tWidDHpzx9EdNYPmWQCiNcE qcWPmVAZiUuk8LVDfkYRfDL IeVbUlF6ftuthbJdRLNQUqm 6mwO8uzaZQMaDYiT2LtGVfv lgLpZQtxTUkvYWHgWDX8XI2 8LvkvOSWogv47 CPT Code(s) (test code s8zmfJCpOYFvfSM9AfLzPFS = 3357) sc1ssn3VhxFCvvIPlFBtoeR JbhuBdan26nEM5qA35YH1uF AEhYiZ8FZGvtfV8Mge0UGBx FGWvkKKkL626p5tot8bplpI niGK0mGaeXXLfEXZwYFowAH SrTlYoUDxmWAK4LAy6WeYaQ HBhcn0= CLINICAL HISTORY (test x1rkcCImMUVgmEM0EbLjIQX code = 3356) co3qxr1PyeMIumRVoKEhgcW XndvBqik21qGW6tO35FV0cB DFlFkJ1POExxsS5Rne2NQKr CPYkwXJcH816h9nwy6remaT gjQT2pMlbUDPeQVBiDMbuLS EuRaCrTITnk7UvDYahR52of 2lzOiAgbGVmdCBjYXJvdGlk PEU2VG2vg0voLNCsky4= SPECIMEN SOURCE (test y3mhhRLcGQScpWJ4ZtRoBFH code = 3377) pp3rpf9TfgMPwmOJoSNrytI VfpePdew71iDA5qF54YT2gQ CViMwU2ABVwyaZ6Zqr0DDLe TTFrwEVqE922t6uoe6drrhG lqGB3qZicGJMkTDMhORxtIQ ZzMjAgUGxhcXVlIFxwYXJ9 GROSS DESCRIPTION p3uqmHHmSUJgiAX7PpVjKCG (test code = 3366) xp1vmq0ZtaJPlmAFkYYqndN LpmhGtwq10fBE1sL21BO9mJ AQaHdL2FOUxlgE9Cbb6ETDx CSYgdXIsO455y5kgr1jcziR prNR5fQubLMWoPMDrAZkdMZ UyZdKtKvYuDTp3SSSzNfMcd 3zglTBtHMfkPUX0vZYtYNMm LPAfUYOgMU25Q9RlqiDrREt nIFOmOYIioB0sTU28wJBjaj AqouFzArSwUHB5IOphfSVpg CBjYXJvdGlkIGFydGVyeSBw bBZmgQWcNPrjVXTsXr3qHZl wBx3nTAVaHEtsprOknIujws RplcAaiANdzTVnRjC8VGzjx 3cgcGxhcXVlIHRoYXQgZGlz oGrydUBkI0PxT8yxuYRksSb jbi4tJRroGIQhUFMvtYLqJR sxBRPvbmgigEf9WXZmZ4Thr 50cNTR7pzBrTPAfYWybNXC0 USgqm1oyaU2op9zkbyUqwOT kE1WcS1wtaCYmNQSwpcIcxz 4gVGhlIHNwZWNpbWVuIGlzI FO6Ux7keEPsMRTpwaAuoGUm JA46pRJbmVxvHj0wfA08kZ6 xVUNmV4WpA8gzpZExcJbpvf VbydSFPO2mZUkOR5LtBUjvW XJ9 MICROSCOPIC p0jznUWhNGUzjDT0TiUjBNW DESCRIPTION (test code jl3ppe9YtiXAwyHCcBUwjeK = 3371) CehtYquf73qOR3dX03KK0tH KCbNuL4JQNbwqQ6Qlx4MGEs LRTihBPuD599w4wtx4gtbvB lxWW5jFmcTXIvUVKlBRwxEG MfObGnDXDtGd8noJGwVDDll n0= [facility] [id number] 18:50:00Surgical Pathology Report Case: [id number] Authorizing Provider: Juan Gallardo, Collected: 09/19/2020 02:54 PM OrderingLocation: [facility] Received: 09/19/2020 03:32 PM PERIOPERATIVE SERVICES Pathologist: Jarad Menchaca MD Specimen: Plaque, LEFT CAROTID ARTERY PLAQUE ARTERY, LEFT CAROTID, ENDARTERECTOMY:CALCIFIC ATHEROSCLEROTIC PLAQUE Signing Pathologist Direct Phone Line: [phone] signed by Jarad Menchaca MD on 09/23/2020 at 6:50 [id number]; [id number] diagnosis: left carotid stenosisPlaque Received fresh labeled with the patient's name, accession number and "plaque, left carotid artery plaque" is a 2.0 x 2.0 cm irregular fragment of yellow plaque that displays calcification. The specimen is serially sectioned to reveal a yellow homogeneous calcified center. The specimen is submitted in its entirety following decalcification in A1. JG/pl PerformedPOC- Glucose [id number] 11:48:00 Test Item Value Reference Range Interpretation Comments POC-Glucose Meter (test 208 mg/dL 70-110 H : TE STED AT [facility] code = 1538) [address] [place] [address], [address] 30: Boat Canvas Installer/Techni ciara ID = [id number] for BERT CORONADO Lab Interpretation (test Abnormal code = 08520-0) [facility] [id number] 11:48:00 Test Item Value Reference Range Interpretation Comments POC-Glucose Meter (test 208 mg/dL 70-110 H : TE STED AT [facility] code = 1538) [address] [place] [address], [address]: [employer] Installer/Techni ciara ID = [id number] for IVONNE, BERT Lab Interpretation (test Abnormal code = 03885-3) [facility]-GLUCOSE [id number] 11:48:00 Test Item Value Reference Range Interpretation Comments POC-GLUCOSE METER 208 mg/dL 70-110 H : TESTED A T [facility] 6720 (BEAKER) (test code = [facility], 1538) [id number]: Boat Canvas Installer/Techni ciara ID = [id number] for JULIETA VERGARA, BERT POCT-GLUCOSE [id number] 08:17:00 Test Item Value Reference Range Interpretation Comments POC-GLUCOSE METER 183 mg/dL 70-110 H : [facility] (test code = [facility], 1538) [address]: Boat Can[employer] Installer/Techni ciara ID = [id number] for JULIETA VERGARA, BERT POC ACTIVATED CLOTTING [id number] 06:23:00 Test Item Value Reference Range Interpretation Comments Activated Clotting Time 241 sec : 74 -137 seconds, (test code = 441) Baseline: TESTED AT [address], [address]: Boat Can[employer] Installer/Techni ciara ID = [id number] for CAST GOLDEN NAT [facility] ACTIVATED CLOTTING [id number] 06:23:00 Test Item Value Reference Range Interpretation Comments Activated Clotting Time 241 sec : 74 -137 seconds, (test code = 441) Baseline: TESTED AT [address], [address]: Boat Can[employer] Installer/Techni ciara ID = [id number] for CAST RO, NAT [facility]POCT-[id number] 06:23:00 Test Item Value Reference Range Interpretation Comments ACTIVATED CLOTTING TIME 241 sec : 74 -137 seconds, (BEAKER) (test code = Baseli ne: TESTED AT 441) [facility] [address] [facility], [address]: Boat Canvas Installer/Techni ciara ID = [id number] for CA STRO, NAT [id number] 06:23:00 Test Item Value Reference Range Interpretation Comments ACTIVATED CLOTTING TIME 224 sec : 74 -137 seconds, (BEAKER) (test code = Baseli ne: TESTED AT 441) [facility] 67[address] [facility], [address]70 30: Boat Canvas Installer/Techni ciara ID = [id number] for CA STRO, NAT CBC with platelet count + automated [id number] 01:08:00 Test Item Value Reference Range Interpretation Comments WBC (test code = 6690-2) 12.8 See_Comment H [A utomated message] The system [email or web address] generated this result transmitted ref erence range: 3.5 - 10 .5 K/L. The refe rence range was not u sed to interpret this result as normal/abnor mal. RBC (test code = 789-8) 3.64 See_Comment L [Au tomated message] The system [email or web address] generated this result transmitted ref erence range: 3.93 - 5 .22 M/L. The refe rence range was not u sed to interpret this result as normal/abnor mal. MCHC (test code = 786-4) 30.3 See_Comment L [A utomated message] The system [email or web address] generated this result transmitted ref erence range: [...] See_Comment [Aut omated message] 777-3) The system [email or web address] generated this result transmitted ref erence range: 150 - 45 0 K/CU MM. The referen ce range was not u sed to interpret this result as normal/abnor mal. MPV (test code = 10.5 fL 9.4-12.3 07459-1) nRBC (test code = 413) 0 See_Comment [Aut omated message] The system [email or web address] generated this result transmitted ref erence range: [...] H [Aut omated message] 670) The system [email or web address] generated this result transmitted ref erence range: 1.56 - 6 .13 K/L. The refe rence range was not u sed to interpret this result as normal/abnor mal. # Lymphs (test code = 1.06 See_Comment L [Auto mated message] 414) The system [email or web address] generated this result transmitted ref erence range: 1.18 - 3 .74 K/L. The refe rence range was not u sed to interpret this result as normal/abnor mal. # Monos (test code = 0.20 See_Comment L [Autom ated message] 415) The system [email or web address] generated this result transmitted ref erence range: 0.24 - 0 .36 K/L. The refe rence range was not u sed to interpret this result as normal/abnor mal. # Eos (test code = 416) 0.00 See_Comment L [Au tomated message] The system [email or web address] generated this result transmitted ref erence range: 0.04 - 0 .36 K/L. The refe rence range was not u sed to interpret this result as normal/abnor mal. # Baso (test code = 417) 0.03 See_Comment [A utomated message] The system [email or web address] generated this result transmitted ref erence range: 0.01 - 0 .08 K/L. The refe rence range was not u sed to interpret this result as normal/abnor mal. Immature 1 % 0-1 Granulocytes-Relative (test code = 2801) Lab Interpretation (test Abnormal code = 53806-7) [facility] with platelet count + automated [id number] 01:08:00 Test Item Value Reference Range Interpretation Comments WBC (test code = 6690-2) 12.8 See_Comment H [A utomated message] The system [email or web address] generated this result transmitted ref erence range: 3.5 - 10 .5 K/L. The refe rence range was not u sed to interpret this result as normal/abnor mal. RBC (test code = 789-8) 3.64 See_Comment L [Au tomated message] The system [email or web address] generated this result transmitted ref erence range: 3.93 - 5 .22 M/L. The refe rence range was not u sed to interpret this result as normal/abnor mal. MCHC (test code = 786-4) 30.3 See_Comment L [A utomated message] The system [email or web address] generated this result transmitted ref erence range: [...] See_Comment [Aut omated message] 777-3) The system [email or web address] generated this result transmitted ref erence range: 150 - 45 0 K/CU MM. The referen ce range was not u sed to interpret this result as normal/abnor mal. MPV (test code = 10.5 fL 9.4-12.3 76026-7) nRBC (test code = 413) 0 See_Comment [Aut omated message] The system [email or web address] generated this result transmitted ref erence range: [...] H [Aut omated message] 670) The system [email or web address] generated this result transmitted ref erence range: 1.56 - 6 .13 K/L. The refe rence range was not u sed to interpret this result as normal/abnor mal. # Lymphs (test code = 1.06 See_Comment L [Auto mated message] 414) The system [email or web address] generated this result transmitted ref erence range: 1.18 - 3 .74 K/L. The refe rence range was not u sed to interpret this result as normal/abnor mal. # Monos (test code = 0.20 See_Comment L [Autom ated message] 415) The system [email or web address] generated this result transmitted ref erence range: 0.24 - 0 .36 K/L. The refe rence range was not u sed to interpret this result as normal/abnor mal. # Eos (test code = 416) 0.00 See_Comment L [Au tomated message] The system [email or web address] generated this result transmitted ref erence range: 0.04 - 0 .36 K/L. The refe rence range was not u sed to interpret this result as normal/abnor mal. # Baso (test code = 417) 0.03 See_Comment [A utomated message] The system [email or web address] generated this result transmitted ref erence range: 0.01 - 0 .08 K/L. The refe rence range was not u sed to interpret this result as normal/abnor mal. Immature 1 % 0-1 Granulocytes-Relative (test code = 2801) Lab Interpretation (test Abnormal code = 40512-2) [facility] W/PLT COUNT & AUTO [id number] 01:08:00 Test Item Value Reference Range Interpretation [...] (BEAKER) (test code = 2801) Basic Metabolic [id number] 00:56:00 Test Item Value Reference Range Interpretation Comments Sodium (test code = 134 meq/L 136-145 L 2951-2) Potassium (test code = 3.9 meq/L 3.5-5.1 2823-3) Chloride (test code = 104 meq/L 98-107 2075-0) CO2 (test code = 23 meq/L 22-29 2028-9) BUN (test code = 10 mg/dL 7-21 3094-0) Creatinine (test code 0.76 mg/dL 0.57-1.25 = 2160-0) Glucose (test code = 332 mg/dL 70-105 H 2345-7) Calcium (test code = 8.2 mg/dL 8.4-10.2 L 85964-9) EGFR (test code = 75 mL/min/1.73 sq [place] [address]-4) NOT ACCURATE CREATININE CLEARANCE IN PREDICTING GLOMERULAR FILTRATION RATE . ESTIMATED GFR I S NOT APPLICABLE FOR DIALYSIS PATIENTS. GABRIELA (test code = GABRIELA) [employer] Installer ID - PIAYA L Lab Interpretation Abnormal (test code = 66204-8) [facility] 00:[facility]00 Test Item Value Reference Range Interpretation Comments Magnesium (test code = 1.7 mg/dL 1.6-2.6 50038-9) GABRIELA (test code = GABRIELA) [employer] Installer ID - PIAYA L Lab Interpretation (test Normal code = 26007-0) [facility] 00:56:00 Test Item Value Reference Range Interpretation Comments Phosphorus (test code = 3.7 mg/dL 2.3-4.7 2777-1) GABRIELA (test code = GABRIELA) [employer] Installer ID - PIAYA L Lab Interpretation (test Normal code = 22561-3) [facility] Metabolic [id number] 00:56:00 Test Item Value Reference Range Interpretation Comments Sodium (test code = 134 meq/L 136-145 L 2951-2) Potassium (test code = 3.9 meq/L 3.5-5.1 2823-3) Chloride (test code = 104 meq/L 98-107 2075-0) CO2 (test code = 23 meq/L -8-9) BUN (test code = 10 mg/dL 7-21 3094-0) Creatinine (test code 0.76 mg/dL 0.57-1.25 = 2160-0) Glucose (test code = 332 mg/dL 70-105 H 2345-7) Calcium (test code = 8.2 mg/dL 8.4-10.2 L 97439-1) EGFR (test code = 75 mL/min/1.73 [place] [address]-1) NOT ACCURATE CREATININE CLEARANCE IN PREDICTING GLOMERULAR FILTRATION RATE . ESTIMATED GFR I S NOT APPLICABLE FOR DIALYSIS PATIENTS. GABRIELA (test code = GABRIELA) [employer] Installer ID - PIAYA L Lab Interpretation Abnormal (test code = 20293-6) [facility] 00:56:00 Test Item Value Reference Range Interpretation Comments Magnesium (test code = 1.7 mg/dL 1.6-2.6 70866-3) GABRIELA (test code = GABRIELA) [employer] Installer ID - PIAYA L Lab Interpretation (test Normal code = 63629-5) [facility]-08 00:56:00 Test Item Value Reference Range Interpretation Comments Phosphorus (test code = 3.7 mg/dL 2.3-4.7 2777-1) GABRIELA (test code = GABRIELA) [employer] Installer ID - PIAYA L Lab Interpretation (test Normal code = 97839-9) [facility] [id number] 00:56:00 Test Item Value Reference Range Interpretation Comments SODIUM (BEAKER) 134 meq/L 136-145 L (test code = 381) POTASSIUM (BEAKER) 3.9 meq/L 3.5-5.1 (test code = 379) CHLORIDE (BEAKER) 104 meq/L 98-107 (test code = 382) CO2 (BEAKER) (test 23 meq/L - code = 355) BLOOD UREA NITROGEN 10 mg/dL 7- (BEAKER) (test code = 354) CREATININE (BEAKER) [...] S NOT APPLICABLE FOR DIALYSIS PATIEN TS. [employer] Installer ID - PITUAN [id number] 00:56:00 Test Item Value Reference Range Interpretation Comments MAGNESIUM (BEAKER) (test code = 1.7 mg/dL 1.6-2.6 627) [employer] Installer ID - P[place]UAN [id number] 00:56:00 Test Item Value Reference Range Interpretation Comments PHOSPHORUS (BEAKER) (test code = 3.7 mg/dL 2.3-4.7 604) [employer] Installer ID - FARHAD LCalcium, [id number] 00:31:00 Test Item Value Reference Range Interpretation Comments Calcium, Ion (test code = 1993-) 1.18 mmol/L 1.12-1.27 pH, Blood (test code = 09899-9) 7.39 [facility], [id number] 00:31:00 Test Item Value Reference Range Interpretation Comments Calcium, Ion (test code = 1993-) 1.18 mmol/L 1.12-1.27 pH, Blood (test code = 04420-9) 7.39 [facility], [id number] 00:31:00 Test Item Value Reference Range Interpretation Comments CALCIUM IONIZED (BEAKER) (test 1.18 mmol/L 1.12-1.27 code = 698) PH, BLOOD (BEAKER) (test code = 7.39 1810) [id number] 10:46:00 Test Item Value Reference Range Interpretation Comments PTT (test code = 59788-0) 27.9 See_Comment [ Automated message] The system [email or web address] generated this result transmitted ref erence range: 22.5 - 3 6.0 seconds. The re ference range was not u sed to interpret this result as normal/abnor mal. Lab Interpretation (test Normal code = 77838-9) [facility]uraaPTT2020-12-07 10:46:00 Test Item Value Reference Range Interpretation Comments PTT (test code = 51331-7) 27.9 See_Comment [ Automated message] The system [employer]ic [employer] generated this result transmitted ref erence range: 22.5 - 3 6.0 seconds. The re ference range was not u sed to interpret this result as normal/abnor mal. Lab Interpretation (test Normal code = 58379-5) [facility]APTT2020-12-07 10:46:00 Test Item Value Reference Range Interpretation Comments PARTIAL THROMBOPLASTIN TIME 27.9 seconds 22.5-36.0 (BEAKER) (test code = 760) Prothrombin time/[id number] 10:45:00 Test Item Value Reference Interpretation Comments Range Protime (test code = 13.4 See_Comment [Autom ated 5902-2) message] The system which generated this result transmitted reference range : 11.9 - 14.2 seconds. The reference range was not used to interpret this result as normal/abnormal . INR (test code = 1.05 See_Comment [Automated 6301-6) message] The system which generated this result [...] valves. Lab Interpretation Normal (test code = 23459-8) [facility]uraProthrombin time/[id number] 10:45:00 Test Item Value Reference Interpretation Comments Range Protime (test code = 13.4 See_Comment [Autom ated 5902-2) message] The system which generated this result transmitted reference range : 11.9 - 14.2 seconds. The reference range was not used to interpret this result as normal/abnormal . INR (test code = 1.05 See_Comment [Automated 6301-6) message] The system which generated this result [...] valves. Lab Interpretation Normal (test code = 85870-8) [facility]uraPROTHROMBIN TIME/[id number] 10:45:00 Test Item Value Reference Range Interpretation [...] is2.5-3.5 for patients wiht mechanical heart valves.POCT-GLUCOSE [id number] 09:19:00 Test Item Value Reference Range Interpretation Comments POC-GLUCOSE METER 187 mg/dL 70-110 H : TESTED A T [facility] 6720 (YECENIA) (test code = ERENDIRA Guzman [facility], 1538) [address]: [employer] Installer/Techni ciara ID = [id number] for [place]jo [place] ECG 12 [id number] 12:51:19Interface, External Ris In - 09/14/2020 12:51 PM CSTVentricular Rate 65 BPMAtrial Rate 65 BPMP-R Interval 154 msQRS Duration 78 msQ-T Interval 442 msQTC Calculation(Bazett) 459 msP [place] 5 degreesR Axis77 degreesT [place] 66 degreesNormal sinus rhythmNonspecific T wave abnormalityProlonged QTWhen compared with ECG of 02-AUG-2019 06:01,Premature ventricular complexes are no longer PresentConfirmed by Daksha NICHOLE, MOLLY ([id number]) on 09/14/2020 12:51:17 [facility] 2020-09-14 12:51:19Interface, External Ris In - 09/14/2020 12:51 PM CSTVentricular Rate 65 BPMAtrial Rate 65 BPMP-R Interval 154 msQRS Duration 78 msQ-T Interval 442 msQTC Calculation(Bazett) 459 msP [place] 5 degreesR Axis77 degreesT [place] 66 degreesNormal sinus rhythmNonspecific T wave abnormalityProlonged QTWhen compared with ECG of 02-AUG-2019 06:01,Premature ventricular complexes are no longer PresentConfirmed by Daksha NICHOLE, MOLLY ([id number]) on 09/14/2020 12:51:17 [facility]AB[facility], manual 2020-09-13 16:42:00 Test Item Value Reference Range Interpretation Comments ABO Grouping (test code = 2588) A Rh Factor (test code = 2589) POS [facility], [id number] 16:42:00 Test Item Value Reference Range Interpretation Comments ABO Grouping (test code = 2588) A Rh Factor (test code = 2589) POS [facility] and screen, [id number] 16:36:00 Test Item Value Reference Range Interpretation Comments Ab Scrn (test code = 890-4) NEGATIVE echo2 [facility]uraType and screen, [id number] 16:36:00 Test Item Value Reference Range Interpretation Comments Ab Scrn (test code = 890-4) NEGATIVE echo2 [facility]uraBAS[facility] METABOLIC [id number] 15:32:00 Test Item Value Reference Range Interpretation [...] S NOT APPLICABLE FOR DIALYSIS PATIEN TS. [employer] Installer ID - ADMINPROTHROMBIN TIME/[id number] 15:29:00 Test Item Value Reference Range Interpretation [...] mechanical heart valves.CBC W/PLT COUNT & AUTO [id number] 15:17:00 Test Item Value Reference Range Interpretation [...] (BEAKER) (test code = 2801) BASIC METABOLIC [id number] 06:24:00 Test Item Value Reference Range Interpretation [...] 0-0 (BEAKER) (test code = 413) POCT-GLUCOSE [id number] 21:22:00 Test Item Value Reference Range Interpretation Comments POC-GLUCOSE METER 138 mg/dL 70-[address] [facility] 67[address] ([facility]) (test code = [place]ENDIRA [place] 1538) [address] POCT-GLUCOSE [id number] 17:38:00 Test Item Value Reference Range Interpretation Comments POC-GLUCOSE METER 131 mg/dL 70-[address] [facility] 6720 ([facility]) (test code = [place]ENDIR[place] 1538) [address] BASIC METABOLIC [id number] 06:07:00 Test Item Value Reference Range Interpretation [...] 1092) DATA TO CALCULA TE ESTIMATED GFR. [id number] 06:04:00 Test Item Value Reference Range Interpretation [...] H (BEAKER) (test code = 413) POCT-GLUCOSE [id number] 23:10:00 Test Item Value Reference Range Interpretation Comments POC-GLUCOSE METER 127 mg/dL 70-[address] [facility] 6720 (BEAKER) (test code = ERENDIRA Guzman [place] 1538) [address] POCT-GLUCOSE [id number] 12:36:00 Test Item Value Reference Range Interpretation Comments POC-GLUCOSE METER 157 mg/dL 70-110 H TESTED AT [place] [address] ([facility]) (test code = ERENDIRA Guzman [place] 1538) [address] CBC (HEMOGRAM ONLY)2019-08-02 06:03:00 Test Item Value [...] (BEAKER) (test code = 413) BASIC METABOLIC [id number] 05:47:00 Test Item Value Reference Range Interpretation [...] 1092) DATA TO CALCULA TE ESTIMATED GFR. [id number] 05:46:00 Test Item Value Reference Range Interpretation Comments PHOSPHORUS (BEAKER) (test code = 2.5 mg/dL 2.3-4.7 604) [id number] 05:46:00 Test Item Value Reference Range Interpretation Comments MAGNESIUM (BEAKER) (test code = 2.1 mg/dL 1.6-2.6 627) POCT-GLUCOSE [id number] 20:47:00 Test Item Value Reference Range Interpretation Comments POC-GLUCOSE METER 164 mg/dL 70-110 H TESTED AT [place] [address] (BEAKER) (test code = ERENDIRA Guzman [facility] 1538) [address] POCT-GLUCOSE [id number] 17:38:00 Test Item Value Reference Range Interpretation Comments POC-GLUCOSE METER 194 mg/dL 70-[address] [facility] 67 (BEAKER) (test code = ERENDIRA Guzman [place] 1538) [address] POCT-GLUCOSE [id number] 07:51:00 Test Item Value Reference Range Interpretation Comments POC-GLUCOSE METER 157 mg/dL 70-[address] [facility] 6720 (BEAKER) (test code = ERENDIRA Guzman [facility] 1538) [address] HEMOGLOBIN [id number] 07:51:00 Test Item Value Reference Range Interpretation Comments HEMOGLOBIN A1C (BEAKER) (test code = 8.6 % 4.3-6.1 H 368) BASIC METABOLIC [id number] 06:11:00 Test Item Value Reference Range Interpretation [...] 1092) DATA TO CALCULA TE ESTIMATED GFR. [id number] 06:10:00 Test Item Value Reference Range Interpretation Comments PHOSPHORUS (BEAKER) (test code = 1.9 mg/dL 2.3-4.7 L 604) [id number] 06:10:00 Test Item Value Reference Range Interpretation [...] CORPUSCULAR HEMOGLOBIN CONC 31.9 GM/DL 32.2-35.5 L (AKER) (test code = 752) RED CELL DISTRIBUTION WIDTH 19.0 % 11.7-14.4 H (AKER) (test code = 412) PLATELET COUNT ([facility]) (test 277 K/CU MM 150-450 code = 756) MEAN PLATELET VOLUME (AKER) 10.5 fL 9.4-12.3 (test code = 754) NUCLEATED RED BLOOD CELLS 0 /100 WBC 0-0 (AKER) (test code = 413) POCT-GLUCOSE [id number] 22:07:00 Test Item Value Reference Range Interpretation Comments POC-GLUCOSE METER 175 mg/dL 70-110 H TESTED AT [place] [address] ([facility]) (test code = [facility] 1538) [address] POCT-GLUCOSE [id number] 18:30:00 Test Item Value Reference Range Interpretation Comments POC-GLUCOSE METER 225 mg/dL 70-110 H TESTED AT [place] [address] ([facility]) (test code = [facility] 1538) [address] POCT-GLUCOSE [id number] 12:17:00 Test Item Value Reference Range Interpretation Comments POC-GLUCOSE METER 170 mg/dL 70-110 H TESTED AT [place] [address] ([facility]) (test code = [facility] 1538) [address] POCT-GLUCOSE [id number] 08:20:00 Test Item Value Reference Range Interpretation Comments POC-GLUCOSE METER 161 mg/dL 70-110 H TESTED AT [place] [address] ([facility]) (test code = [facility] 1538) [address] BASIC METABOLIC [id number] 08:18:00 Test Item Value Reference Range Interpretation [...] 1092) DATA TO CALCULA TE ESTIMATED GFR. [id number] 08:15:00 Test Item Value Reference Range Interpretation Comments MAGNESIUM (BEAKER) 1.9 mg/dL 1.6-2.6 Specimen slightly (test code = 627) hemolyzed [id number] 08:15:00 Test Item Value Reference Range Interpretation Comments PHOSPHORUS (BEAKER) 2.3 mg/dL 2.3-4.7 Specimen slightly (test code = 604) hemolyzed RAD, CHEST, 1 VIEW, NON [id number] 07:56:00Reason for exam:->post-op cardiac surgeryShould this be [...] MDReport Verified Date/Time: 07/31/2019 07:56:15 Reading Location: [facility] Radiology Reading Room PT/[id number] 07:25:00 Test Item Value Reference Range Interpretation [...] CELL DISTRIBUTION WIDTH 19.2 % 11.7-14.4 H (BEAKER) (test code = 412) PLATELET COUNT (BEAKER) (test 218 K/CU MM 150-450 code = 756) MEAN PLATELET VOLUME (BEAKER) 11.0 fL 9.4-12.3 (test code = 754) NUCLEATED RED BLOOD CELLS 0 /100 WBC 0-0 (BEAKER) (test code = 413) POCT-GLUCOSE [id number] 21:32:00 Test Item Value Reference Range Interpretation Comments POC-GLUCOSE METER 168 mg/dL 70-[address] [facility] 6720 (BEAKER) (test code = ERENDIRA [place] 1538) [address] POCT-GLUCOSE [id number] 17:55:00 Test Item Value Reference Range Interpretation Comments POC-GLUCOSE METER 172 mg/dL 70-110 H TESTED AT [place] [address] (BEAKER) (test code = ERENDIRA Guzman [facility] 1538) [address] POCT-GLUCOSE [id number] 15:34:00 Test Item Value Reference Range Interpretation Comments POC-GLUCOSE METER 152 mg/dL 70-110 H TESTED AT [place] [address] (BEAKER) (test code = ERENDIRA Guzman [facility] 1538) [address] POCT-GLUCOSE [id number] 12:52:00 Test Item Value Reference Range Interpretation Comments POC-GLUCOSE METER 222 mg/dL 70-110 H TESTED AT [place] [address] (BEAKER) (test code = [facility] 1538) [address] POCT-GLUCOSE [id number] 07:19:00 Test Item Value Reference Range Interpretation Comments POC-GLUCOSE METER 185 mg/dL 70-110 H TESTED AT [place] [address] (BEAKER) (test code = [facility] 1538) [address] [id number] 06:16:00 Test Item Value Reference Range Interpretation Comments ACTIVATED CLOTTING TIME 109 sec Refe rence Range: (BEAKER) (test code = 74-137 seconds, 441) Baseline/TESTED AT [address] [address] [id number] 06:16:00 Test Item Value Reference Range Interpretation Comments ACTIVATED CLOTTING TIME 543 sec Refe rence Range: (BEAKER) (test code = 74-137 seconds, 441) Baseline/TESTED AT [address] [address] [id number] 06:16:00 Test Item Value Reference Range Interpretation Comments ACTIVATED CLOTTING TIME 510 sec Refe rence Range: (BEAKER) (test code = 74-137 seconds, 441) Baseline/TESTED AT [address] [address] BASIC METABOLIC [id number] 06:04:00 Test Item Value Reference Range Interpretation [...] 1092) DATA TO CALCULA TE ESTIMATED GFR. [id number] 06:02:00 Test Item Value Reference Range Interpretation Comments PHOSPHORUS (BEAKER) (test code = 3.7 mg/dL 2.3-4.7 604) [id number] 06:02:00 Test Item Value Reference Range Interpretation Comments MAGNESIUM (BEAKER) (test code = 2.0 mg/dL 1.6-2.6 627) [id number] 05:57:00 Test Item Value Reference Range Interpretation [...] is2.5-3.5 for patients wiht mechanical heart valves.PROTHROMBIN TIME/[id number] 05:56:00 Test Item Value Reference Range Interpretation [...] is2.5-3.5 for patients wiht mechanical heart valves.CALCIUM, [id number] 05:55:00 Test Item Value Reference Range Interpretation Comments CALCIUM IONIZED (BEAKER) (test 1.17 mmol/L 1.12-1.27 code = 698) PH, BLOOD (BEAKER) (test code = 7.38 1810) CBC W/PLT COUNT & AUTO [id number] 05:55:00 Test Item Value Reference Range Interpretation [...] (BEAKER) (test code = 2801) OXYGEN SATURATION, [id number] 05:49:00 Test Item Value Reference Range Interpretation Comments O2 SATURATION (MEASURED) (BEAKER) 77.2 % (test code = 1455) RAD, CHEST, 1 VIEW, NON [id number] 05:35:00Reason for exam:->post-op cardiac surgeryShould this be performed at the bedside?->YesFINAL REPORT RAD, CHEST, 1 VIEW, NON DEPT INDICATION: post-op cardiac surgeryCOMPARISON: Prior day's exam FINDINGS: Portable frontal view of the chest. IMPRESSION: Support Lines: Interval extubation. Otherwise unchanged support apparatus. Lungs and pleura: Unchanged airspaceopacities. No pneumothorax.Heart and mediastinum: Stable contours. Stable surgical changes.Additional findings: None. Signed: [facility] Verified Date/Time: 07/30/2019 05:35:16 [id number] 18:41:00 Test Item Value Reference Range Interpretation Comments POTASSIUM (BEAKER) (test code = 4.2 meq/L 3.5-5.1 379) PRN - repeat potassium levels every 1 hour until glucose level is less than 450 mg/dLPOCT-GLUCOSE [id number] 18:14:00 Test Item Value Reference Range Interpretation Comments POC-GLUCOSE METER 175 mg/dL 70-[address] [facility] 6720 (BEAKER) (test code = [place]ENDIR[place] 1538) [address] BLOOD GAS, [id number] 16:57:00 Test Item Value Reference Range Interpretation [...] (test code = 1819) 40.0 % HEMOGLOBIN [id number] 16:17:00 Test Item Value Reference Range Interpretation Comments HEMOGLOBIN A1C (BEAKER) (test code = 9.5 % 4.3-6.1 H 368) PLATELET AGGREGATION: FUNCTION [id number] 15:15:00 Test Item Value Reference Range Interpretation Comments [id number] Giovanni Tee M.D. (BEAKER) (test code = (electonic signature) 6831) PLATELET COUNT AGG 273 K/CU MM 150-450 [...] be falsely low with platelet counts<75,000/cu mm.POCT-GLUCOSE [id number] 15:07:00 Test Item Value Reference Range Interpretation Comments POC-GLUCOSE METER 125 mg/dL 70-[address] [facility] 6720 (BEAKER) (test code = ERENDIRA Guzman [facility] 1538) [address] POCT-GLUCOSE [id number] 14:26:00 Test Item Value Reference Range Interpretation Comments POC-GLUCOSE METER 85 mg/dL 70-[address] [facility] 6720 (BEAKER) (test code = [place] [address] 1538) POCT-GLUCOSE [id number] 14:14:00 Test Item Value Reference Range Interpretation Comments POC-GLUCOSE METER 88 mg/dL 70-110 TESTED AT [place] [address] ([facility]) (test code = ERENDIRA Guzman [facility] [address] 1538) RAD, CHEST, 1 VIEW, NON [id number] 13:11:00Reason for exam:->Status post CV Surgery post [...] METER 132 mg/dL 70-110 H TESTED AT [place] [address] ([facility]) (test code = ERENDIRA Guzman [facility] 1538) [address] BASIC METABOLIC [id number] 12:28:00 Test Item Value Reference Range Interpretation [...] 1092) DATA TO CALCULA TE ESTIMATED GFR. [id number] 12:27:00 Test Item Value Reference Range Interpretation Comments PHOSPHORUS (BEAKER) (test code = 2.3 mg/dL 2.3-4.7 604) [id number] 12:27:00 Test Item Value Reference Range Interpretation Comments MAGNESIUM (BEAKER) (test code = 2.6 mg/dL 1.6-2.6 627) [id number] 12:26:00 Test Item Value Reference Range Interpretation Comments PARTIAL THROMBOPLASTIN TIME 27.4 seconds 22.5-36.0 (BEAKER) (test code = 760) PROTHROMBIN [id number] 12:25:00 Test Item Value Reference Range Interpretation [...] for patients wiht mechanical heart valves.LACTIC ACID, [id number] 12:21:00 Test Item Value Reference Range Interpretation Comments LACTATE BLOOD ARTERIAL (2) 1.2 mmol/L 0.5-2.2 (BEAKER) (test code = 2874) CBC W/PLT COUNT & AUTO [id number] 12:08:00 Test Item Value Reference Range Interpretation [...] PERCENT (BEAKER) (test code = 2801) CALCIUM, [id number] 12:04:00 Test Item Value Reference Range Interpretation Comments CALCIUM IONIZED (BEAKER) (test 1.15 mmol/L 1.12-1.27 code = 698) PH, BLOOD (BEAKER) (test code = 7.44 1810) BLOOD GAS, [id number] 12:03:00 Test Item Value Reference Range Interpretation [...] code = 1819) 60.0 % OXYGEN SATURATION, [id number] 12:00:00 Test Item Value Reference Range Interpretation Comments O2 SATURATION (MEASURED) (BEAKER) 66.6 % (test code = 1455) For occult [id number] 11:53:00 Test Item Value Reference Range Interpretation Comments PHOSPHORUS (BEAKER) (test code = 2.9 mg/dL 2.3-4.7 604) CALCIUM, [id number] 10:32:00 Test Item Value Reference Range Interpretation Comments CALCIUM IONIZED (BEAKER) (test 1.03 mmol/L 1.12-1.27 L code = 698) PH, BLOOD (BEAKER) (test code = 7.33 1810) BLOOD GAS, [id number] 10:31:00 Test Item Value Reference Range Interpretation [...] code = 1819) 100.0 % SODIUM NA-STAT [id number] 10:31:00 Test Item Value Reference Range Interpretation Comments SODIUM (BEAKER) (test code = 381) 133 meq/L 135-148 L GLUCOSE-STAT [id number] 10:31:00 Test Item Value Reference Range Interpretation Comments GLUCOSE RANDOM (BEAKER) (test code 226 mg/dL 70-110 H = 652) HGB/HCT (H&H) - STAT [id number] 10:31:00 Test Item Value Reference Range Interpretation Comments HEMOGLOBIN (BEAKER) (test code = 8.0 g/dL 12.0-15.0 L 410) HEMATOCRIT (BEAKER) (test code = 24.0 % 36.0-45.0 L 411) POTASSIUM-STAT [id number] 10:30:00 Test Item Value Reference Range Interpretation Comments POTASSIUM (BEAKER) (test code = 4.2 meq/L 3.6-5.5 379) BLOOD GAS, [id number] 10:05:00 Test Item Value Reference Range Interpretation [...] code = 1819) 80.0 % SODIUM NA-STAT [id number] 10:05:00 Test Item Value Reference Range Interpretation Comments SODIUM (BEAKER) (test code = 381) 127 meq/L 135-148 L POTASSIUM-STAT [id number] 10:05:00 Test Item Value Reference Range Interpretation Comments POTASSIUM (BEAKER) (test code = 5.9 meq/L 3.6-5.5 H 379) GLUCOSE-STAT [id number] 10:05:00 Test Item Value Reference Range Interpretation Comments GLUCOSE RANDOM (BEAKER) (test code 241 mg/dL 70-110 H = 652) HGB/HCT (H&H) - STAT [id number] 10:05:00 Test Item Value Reference Range Interpretation Comments HEMOGLOBIN (BEAKER) (test code = 8.0 g/dL 12.0-15.0 L 410) HEMATOCRIT (BEAKER) (test code = 24.0 % 36.0-45.0 L 411) BLOOD GAS, [id number] 09:51:00 Test Item Value Reference Range Interpretation [...] code = 1819) 80.0 % SODIUM NA-STAT [id number] 09:51:00 Test Item Value Reference Range Interpretation Comments SODIUM (BEAKER) (test code = 381) 130 meq/L 135-148 L GLUCOSE-STAT [id number] 09:51:00 Test Item Value Reference Range Interpretation Comments GLUCOSE RANDOM (BEAKER) (test code 249 mg/dL 70-110 H = 652) HGB/HCT (H&H) - STAT [id number] 09:51:00 Test Item Value Reference Range Interpretation Comments HEMOGLOBIN (BEAKER) (test code = 8.1 g/dL 12.0-15.0 L 410) HEMATOCRIT (BEAKER) (test code = 24.0 % 36.0-45.0 L 411) POTASSIUM-STAT [id number] 09:50:00 Test Item Value Reference Range Interpretation Comments POTASSIUM (BEAKER) (test code = 5.4 meq/L 3.6-5.5 379) BLOOD GAS, [id number] 09:23:00 Test Item Value Reference Range Interpretation [...] code = 1819) 100.0 % SODIUM NA-STAT [id number] 09:23:00 Test Item Value Reference Range Interpretation Comments SODIUM (BEAKER) (test code = 381) 132 meq/L 135-148 L GLUCOSE-STAT [id number] 09:23:00 Test Item Value Reference Range Interpretation Comments GLUCOSE RANDOM (BEAKER) (test code 164 mg/dL 70-110 H = 652) CALCIUM, [id number] 09:23:00 Test Item Value Reference Range Interpretation Comments CALCIUM IONIZED (BEAKER) (test 1.05 mmol/L 1.12-1.27 L code = 698) PH, BLOOD (BEAKER) (test code = 7.44 1810) POTASSIUM-STAT [id number] 09:22:00 Test Item Value Reference Range Interpretation Comments POTASSIUM (BEAKER) (test code = 4.0 meq/L 3.6-5.5 379) HGB/HCT (H&H) - STAT [id number] 09:22:00 Test Item Value Reference Range Interpretation Comments HEMOGLOBIN (BEAKER) (test code = 12.2 g/dL 12.0-15.0 410) HEMATOCRIT (BEAKER) (test code = 36.0 % 36.0-45.0 411) RAD, CHEST, 1 VIEW, NON [id number] 07:12:00Reason for exam:->preopShould this be performed at the bedside?->YesFINAL REPORT INDICATION: preop COMPARISON: None TECHNIQUE: Single frontal view of the chest. FINDINGS: Lungs and pleura: Clear lungs. No effusion.Heart and mediastinum: Normal heart size. Unremarkable mediastinal contours.Osseous structures: No acute abnormality.Other: None. IMPRESSION: No acute intrathoracic abnormality. Signed: Deirdre De Jesus MDReport Verified Date/Time: 07/29/2019 07:12:45 [id number] 07:01:00 Test Item Value Reference Range Interpretation Comments PARTIAL THROMBOPLASTIN TIME 31.2 seconds 22.5-36.0 (BEAKER) (test code = 760) BASIC METABOLIC [id number] 05:57:00 Test Item Value Reference Range Interpretation [...] 1092) DATA TO CALCULA TE ESTIMATED GFR. [id number] 05:51:00 Test Item Value Reference Range Interpretation Comments MAGNESIUM (BEAKER) (test code = 1.9 mg/dL 1.6-2.6 627) [id number] 05:35:00 Test Item Value Reference Range Interpretation [...] is2.5-3.5 for patients wiht mechanical heart valves.PROTHROMBIN [id number] 05:34:00 Test Item Value Reference Range Interpretation [...] mechanical heart valves.CBC W/PLT COUNT & AUTO [id number] 05:24:00 Test Item Value Reference Range Interpretation [...] % 0-1 PERCENT (BEAKER) (test code = 9291)
--- NOTE | 2021-06-16 09:45 | ER ---
Nurse's Notes [facility] Name: Ivet Calderon Age: 70 yrs Sex: Female : 1950 Arrival Date: 06/16/2021 Time: 09:35 Bed Waiting Private MD: Diagnosis: Fracture of clavicle Presentation: 06/16 09:37 Chief complaint: Chief complaint: Patient states: was seen here 2 days ago and dx with aa5 a clavicle fracture. Pt states "the pain is too bad". 09:38 Coronavirus screen: At this time, the client does not indicate any symptoms associated aa5 with coronavirus-19. Ebola Screen: Patient negative for fever greater than or equal to 101.5 degrees Fahrenheit, and additional compatible Ebola Virus Disease symptoms. Initial Sepsis Screen: Does the patient meet any 2 criteria? No. Patient's initial sepsis screen is negative. Does the patient have a suspected source of infection? No. Patient's initial sepsis screen is negative. Risk Assessment: Do you want to hurt yourself or someone else? Patient reports no desire to harm self or others. Onset of symptoms was June 14, 2021. 09:38 Method Of Arrival: Ambulatory aa5 09:38 Acuity: DORYS 4 aa5 Historical: - Allergies: 09:36 Morphine (burning to IV site ); aa5 - PMHx: 09:36 Diabetes - NIDDM; Hypertension; aa5 - Immunization history:: Client reports having NOT received the Covid vaccine. - Social history:: Smoking status: Patient denies any tobacco usage or history of. Assessment: 10:17 Reassessment: Patient is alert, oriented x 3, equal unlabored respirations, skin aa5 warm/dry/pink. Vital Signs: 09:39 BP 212 / 72; Pulse 81; Resp 16 S; Temp 98.6(O); Pulse Ox 100% on R/A; Weight 74.84 kg aa5 (R); Height 5 ft. 1 in. (154.94 cm) (R); 10:17 BP 176 / 52; Pulse 69; Resp 16 S; Pulse Ox 98% on R/A; aa5 09:39 Body Mass Index 31.18 (74.84 kg, 154.94 cm) aa5 ED Course: 09:35 Patient arrived in ED. as 09:36 Sharri Schuster FNP-C [facility]. kb 09:36 Pop Lennon MD is Attending Physician. kb 09:37 Arm band placed on. aa5 09:40 Triage completed. aa5 10:18 No provider procedures requiring assistance completed. Patient did not have IV access aa5 during this emergency room visit. Administered Medications: 09:49 Drug: HYDROcodone-acetaminophen 5 mg-325 mg 1 tabs Route: PO; aa5 10:17 Follow up: Response: No adverse reaction; Pain is decreased aa5 Outcome: 09:45 Discharge ordered by . kb 10:17 Discharged to home ambulatory, with family. aa5 10:17 Condition: stable 10:17 Discharge instructions given to patient, Instructed on discharge instructions, follow up and referral plans. Demonstrated understanding of instructions, follow-up care. 10:18 Patient left the ED. aa5 Signatures: Sharri Schuster FNP-C FNP-Ckb Martinez, Amelia as Calderon, Audri RN RN aa5 Corrections: (The following items were deleted from the chart) 09:40 09:37 Chief complaint: aa5 aa5 09:42 09:36 Allergies: Morphine; aa5 aa5 09:42 09:38 Acuity: DORYS 5 aa5 aa5 09:42 09:39 Pulse 81bpm; Resp 16bpm; Spontaneous; Pulse Ox 100% RA; Temp 98.6F Oral; 74.84 kg aa5 Reported; Height 5 ft. 1 in. Reported; BMI: 31.1; aa5
--- NOTE | 2021-06-16 09:46 | EDPHYS ---
Physician Documentation [facility] Name: Ivet Calderon Age: 70 yrs Sex: Female : 1950 Arrival Date: 06/16/2021 Time: 09:35 Bed Waiting Private MD: ED Physician Pop Lennon HPI: 06/16 10:11 This 70 yrs old Female presents to ER via Ambulatory with complaints of pain kb from clavicle fx. 10:11 The patient or guardian complains of injury, pain, that is acute. The complaints affect kb the right clavicle. Context: The problem was sustained at home, resulted from a fall. Onset: The symptoms/episode began/occurred 2 day(s) ago. Treatment prior to arrival includes: prescription medications, sling. Modifying factors: The symptoms are alleviated by nothing. the symptoms are aggravated by movement. Associated signs and symptoms: Pertinent positives: decreased range of motion, pain. Severity of symptoms: At their worst the symptoms were moderate, in the emergency department the symptoms are unchanged. The patient has not experienced similar symptoms in the past. The patient has been recently seen at the [facility] Emergency Department, this week, for similar complaints X-rays were performed, CT scan was performed. Pt reports she fell 2 days ago, came here and was diagnosed with a clavicle fracture. Reports she is taking the prescribed pain medication (tylenol with codeine), but it isn't helping. States she also needs to know who to follow up with . Historical: - Allergies: 09:36 Morphine (burning to IV site ); aa5 - PMHx: 09:36 Diabetes - NIDDM; Hypertension; aa5 - Immunization history:: Client reports having NOT received the Covid vaccine. - Social history:: Smoking status: Patient denies any tobacco usage or history of. ROS: 10:09 Constitutional: Negative for fever, chills, and weight loss. kb 10:09 MS/extremity: Positive for pain, of the right clavicle. 10:09 All other systems are negative. Exam: 10:09 Constitutional: This is a well developed, well nourished patient who is awake, alert, kb and in no acute distress. Head/Face: Normocephalic, atraumatic. ENT: Moist Mucous membranes Respiratory: Respirations even and unlabored. No increased work of breathing, no retractions or nasal flaring. Skin: Warm, dry with normal turgor. Normal color. Neuro: Awake and alert, GCS 15, oriented to person, place, time, and situation. Moves all extremities. Normal gait. Psych: Awake, alert, with orientation to person, place and time. Behavior, mood, and affect are within normal limits. 10:09 Musculoskeletal/extremity: Extremities: grossly normal except: noted in the right arm: in sling for clavicle fracture, ROM: limited active range of motion due to pain, in the right arm, Circulation is intact in all extremities. Sensation intact. Vital Signs: 09:39 BP 212 / 72; Pulse 81; Resp 16 S; Temp 98.6(O); Pulse Ox 100% on R/A; Weight 74.84 kg aa5 (R); Height 5 ft. 1 in. (154.94 cm) (R); 10:17 BP 176 / 52; Pulse 69; Resp 16 S; Pulse Ox 98% on R/A; aa5 09:39 Body Mass Index 31.18 (74.84 kg, 154.94 cm) aa5 MDM: 09:36 Patient medically screened. kb 10:08 Data reviewed: vital signs, nurses notes. Data interpreted: Pulse oximetry: on room air kb is 100 %. Interpretation: normal. Counseling: I had a detailed discussion with the patient and/or guardian regarding: the historical points, exam findings, and any diagnostic results supporting the discharge/admit diagnosis, radiology results, the need for outpatient follow up, a orthopedic surgeon, to return to the emergency department if symptoms worsen or persist or if there are any questions or concerns that arise at home. 10:08 Data reviewed: radiologic studies, CT scan, plain films, from 06/14/21. kb Administered Medications: 09:49 Drug: HYDROcodone-acetaminophen 5 mg-325 mg 1 tabs Route: PO; aa5 10:17 Follow up: Response: No adverse reaction; Pain is decreased aa5 Disposition Summary: 06/16/21 09:45 Discharge Ordered Location: Home kb Condition: Stable kb Diagnosis - Fracture of clavicle kb Followup: kb - With: Emergency Department - When: As needed - Reason: Worsening of condition Followup: kb - With: Private Physician - When: 2 - 3 days - Reason: Recheck today's complaints, Continuance of care, Re-evaluation by your physician Discharge Instructions: - Discharge Summary Sheet kb - Clavicle Fracture, Deky-ur-Nexp kb Forms: - Medication Reconciliation Form kb - Thank You Letter kb - Antibiotic Education kb - Prescription Opioid Use kb Signatures: Sharri Schuster FNP-C FNP-Ckb Calderon, Audri RN RN aa5 Corrections: (The following items were deleted from the chart) 09:42 09:36 Allergies: Morphine; aa5 aa5
[2021-06-16] MEDS ORDERED: HYDROCODONE/APAP 5/325 MG TAB ONE (10:10)
[2021-06-16 10:24] VITALS: TEMP 98.6
[2021-06-16 10:26] VITALS: BP 176/52; O2SAT 98
== END 2021-06-16 10:18 | disposition home or self-care (01) ==
LOC: ER 09:33
DX: S42.001G Fracture of unspecified part of right clavicle, subsequent encounter for fracture with delayed healing (principal); W19.XXXD Unspecified fall, subsequent encounter; I10 Essential (primary) hypertension; Z88.5 Allergy status to narcotic agent
CPT/HCPCS: 99283

== ENCOUNTER 2021-08-20 15:37 | Observation (INO) | payer OTHER ==
[2021-08-20] MEDS ORDERED: ONDANSETRON 4 MG/2 ML VIAL ONE (18:03)
[2021-08-20] MEDS ORDERED: DIPHENHYDRAMINE 50 MG/ML VIAL ONE (18:03)
[2021-08-20 18:18] LABS: Absolute Lymphocytes (CBC) 2.7 K/uL (0.7-4.9); Basophils % 0.5 % (0-1.3); Hematocrit 24.9 % (36.0-45.0); Lymphocytes % 25.9 % (15.3-44.8); MPV 8.1 fL (7.6-11.3); Protime INR 1.09; RBC Red Blood Cell Count 3.22 M/uL (3.86-4.86)
[2021-08-20 18:28] LABS: Albumin 3.1 g/dL (3.4-5.0); Bilirubin Direct 0.1 mg/dL (0-0.2); Bilirubin Total 0.3 mg/dL (0.2-1.0); Magnesium 2.3 mg/dL (1.8-2.4); Potassium 3.8 mmol/L (3.5-5.1); Protein, Total 8.4 g/dL (6.4-8.2)
[2021-08-20 18:31] LABS: Troponin (Emerg Dept Use Only) 0.11 ng/mL (0.0-0.045)
--- NOTE | 2021-08-20 18:52 | RAD REPORT ---
EXAM DESCRIPTION: CT - Angio Aorta For Dissection - 08/20/2021 6:33 pm CLINICAL HISTORY: . Chest and abd pain COMPARISON: June 2021 TECHNIQUE: Computed tomography angiography of the chest, abdomen pelvis were obtained. 100 cc Isovue 370 was administered intravenously. Coronal and sagittal reconstruction were performed. MIP 3D reconstruction was performed All CT scans are performed using dose optimization technique as appropriate and may include automated exposure control or mA/KV adjustment according to patient size. FINDINGS: An aortic dissection is not seen. An aortic aneurysm is not displayed. Postsurgical changes involve the chest. The celiac, SMA and SANDRA are patent . Mild to moderate calcified plaque proximal renal arteries A lung consolidation is not present. A pericardial effusion is not seen. A pleural effusion is not no zoë. Moderately displaced proximal subacute right clavicular fracture The liver,spleen, pancreas, adrenals and kidneys demonstrate no significant abnormality. Cholecystectomy. There no evidence of diverticulitis. IMPRESSION: Negative for an aortic dissection.
--- NOTE | 2021-08-20 18:54 | RAD REPORT ---
EXAM DESCRIPTION: Pérez Single View08/20/2021 6:16 pm CLINICAL HISTORY: Chest pain COMPARISON: June 2021 FINDINGS: The lungs appear clear of acute infiltrate. The heart is mildly to moderately enlarged. Postsurgical changes involve the chest. IMPRESSION: No acute abnormalities displayed
[2021-08-20] MEDS ORDERED: ASPIRIN EC 81 MG TAB PO ONE (19:48)
--- NOTE | 2021-08-20 20:28 | EDPHYS ---
Physician Documentation [facility] Name: Ivet Calderon Age: 71 yrs Sex: Female : 1950 Arrival Date: 08/20/2021 Time: 15:42 Bed 15 Private MD: ED Physician Abbe Lao HPI: 08/20 17:59 This 71 yrs old Female presents to ER via EMS with complaints of Back Pain. jmm 17:59 The patient presents with pain that is acute. The symptoms are located in the left [facility] scapular area. Onset: The symptoms/episode began/occurred acutely, this morning. The pain radiates to the chest. Associated signs and symptoms: Pertinent positives: chest pain, Pertinent negatives: dysuria, hematuria, incontinence, nausea, numbness, tingling, urinary retention, vomiting, weakness. Modifying factors: The patient symptoms are alleviated by rest, the patient symptoms are aggravated by any movement. This is a 71-year-old female with history of diabetes mellitus, hypertension, coronary artery disease that presents emerge department with complaints of acute onset left upper back pain. 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 Pain began to intensify soon after with radiation into her chest which she described below her breast bilaterally.. Denies vomiting, denies weakness, denies shortness of breath.. Historical: - Allergies: 15:52 Morphine (burning to IV site); tw2 - Home Meds: 15:52 aspirin 81 mg Oral chew 1 tab once daily [Active]; metformin 500 mg Oral tab 1 tab 2 tw2 times per day [Active]; Lopressor 50 mg Oral tab 1 tab once daily [Active]; "high blood pressure medicine that starts with a P, thats 40 mg" [Active]; - PMHx: 15:52 Diabetes - NIDDM; Hypertension; Heart attack; tw2 - PSHx: 15:52 Appendectomy; open heart surgery; Cholecystectomy; tw2 - Immunization history:: Client reports having NOT received the Covid vaccine. - Social history:: Smoking status: Patient denies any tobacco usage or history of. ROS: 17:59 Constitutional: Negative for fever, chills, and weight loss. jmm 17:59 Cardiovascular: Positive for chest pain. 17:59 Back: Positive for pain with movement. 17:59 All other systems are negative. Exam: 17:59 Head/Face: atraumatic. Eyes: EOMI, no conjunctival erythema appreciated ENT: Moist jm Mucus Membranes 17:59 Respiratory: Normal respirations, no respiratory distress appreciated Abdomen/GI: Non distended, soft 17:59 Constitutional: The patient appears alert, awake, anxious, uncomfortable. 17:59 Neck: C-spine: vertebral tenderness, is not appreciated. 17:59 Chest/axilla: Inspection: normal, Palpation: is normal. 17:59 Cardiovascular: Rate: normal, Rhythm: regular, Pulses: no pulse deficits are appreciated. 17:59 Back: Left paraspinal thoracic pain on palpation appreciated, no midline tenderness appreciated, full range of motion is appreciated, no CVA tenderness appreciated bilaterally. 17:59 Musculoskeletal/extremity: ROM: intact in all extremities. 17:59 Skin: Appearance: Color: normal in color. 17:59 Neuro: Orientation: is normal, Mentation: is normal, Memory: is normal. 17:59 Psych: Behavior/mood is pleasant, cooperative. Vital Signs: 15:49 BP 157 / 49; Pulse 68; Resp 17; Temp 97.4(TE); Pulse Ox 98% on R/A; Weight 74.84 kg tw2 (R); Height 5 ft. 1 in. (154.94 cm) (R); Pain 8/10; 17:30 BP 152 / 59; Pulse 75; Resp 18; Temp 97.8(O); Pulse Ox 99% on R/A; sl2 18:02 BP 180 / 63; Pulse 66; Resp 20; Pulse Ox 100% on R/A; mh5 18:44 BP 179 / 53; Pulse 76; Resp 22; Pulse Ox 97% on R/A; mh5 19:50 BP 144 / 45; Pulse 71; Resp 20; Temp 98.3; Pulse Ox 96% ; cc4 21:57 BP 166 / 61; Pulse 71; Resp 20; Temp 97.9(O); Pulse Ox 100% on R/A; cc4 15:49 Body Mass Index 31.18 (74.84 kg, 154.94 cm) tw2 MDM: 17:28 Patient medically screened. ame 20:25 Data reviewed: vital signs, nurses notes. Counseling: I had a detailed discussion with ame the patient and/or guardian regarding: the historical points, exam findings, and any diagnostic results supporting the discharge/admit diagnosis, lab results, radiology results, the need for further work-up and treatment in the hospital. ED course: I discussed the patient with Gabriel Vazquez who accepted the patient to Dr. Levine's service. . 08/20 17:29 Order name: Basic Metabolic Panel [facility] 08/20 17:29 Order name: CBC with Diff [facility] 08/20 17:29 Order name: LFT's; Complete Time: 18:47 [facility] 08/20 17:29 Order name: Magnesium; Complete Time: 18:47 [facility] 08/20 17:29 Order name: NT PRO-BNP; Complete Time: 18:47 [facility] 08/20 17:29 Order name: PT-INR; Complete Time: 18:20 [facility] 08/20 17:29 Order name: Troponin (emerg Dept Use Only); Complete Time: 18:48 [facility] 08/20 17:29 Order name: XRAY Chest (1 view); Complete Time: 18:59 [facility] 08/20 17:29 Order name: CT Aorta for Dissection; Complete Time: 18:59 [facility] 08/20 17:29 Order name: Basic Metabolic Panel; Complete Time: 18:48 [facility] 08/20 17:29 Order name: CBC with Automated Diff; Complete Time: 18:20 [facility] 08/20 19:32 Order name: COVID-19 (Coronavirus) Document "Date of Onset" if Symptomatic em 08/20 20:09 Order name: SARS-COV-2 RT PCR; Complete Time: 21:04 [facility] 08/20 16:03 Order name: EKG; Complete Time: 16:04 tw2 08/20 16:03 Order name: EKG - Nurse/Tech; Complete Time: 16:03 tw2 08/20 17:29 Order name: Cardiac monitoring; Complete Time: 18:01 [facility] 08/20 17:29 Order name: IV Saline Lock; Complete Time: 18:01 [facility] 08/20 17:29 Order name: Labs collected and sent; Complete Time: 18:01 [facility] 08/20 17:29 Order name: O2 Per Protocol; Complete Time: 18:01 [facility] 08/20 17:29 Order name: O2 Sat Monitoring; Complete Time: 18:01 [facility] 08/20 21:12 Order name: CONS Physician Consult; Complete Time: 21:44 EDMS Administered Medications: 18:10 Drug: diphenhydrAMINE 12.5 mg Route: IVP; Site: right antecubital; jl7 18:12 Drug: Zofran (Ondansetron) 4 mg Route: IVP; Site: right antecubital; jl7 19:50 Drug: Aspirin Chewable Tablet 324 mg Route: PO; cc4 20:22 Follow up: Response: No adverse reaction cc4 Disposition Summary: 08/20/21 20:27 Hospitalization Ordered Hospitalization Status: Inpatient Admission jm Provider: Jann Levine Location: Telemetry/[facility]Sur (Inpatient) jmm Condition: Stable jmm Problem: new jmm Symptoms: have improved jmm Bed/Room Type: Standard [facility] Room Assignment: 217(08/20/21 21:51) em Diagnosis - Non ST elevation PR [facility] Forms: - Medication Reconciliation Form jm - SBAR form [facility] Addendum: 08/22/2021 08:40 Co-signature as Attending Physician, Abbe Lao MD I agree with the assessment and s p3 plan of care. Signatures: Dispatcher [employer] EDMS [place] PA PA jmm Rashad Navarro RN RN em Dafne Daily RN RN tw2 Clinton Levy RN RN jl7 Bruno Youssef MD MD mh7 Abbe Lao MD MD sp3 Bertha Hahn, RN RN cc4 Corrections: (The following items were deleted from the chart) 08/20 20:09 19:33 CORONAVIRUS ordered. EDAR EDMS 21:51 20:27 jmm em
--- NOTE | 2021-08-20 20:28 | ER ---
Nurse's Notes [facility] Name: Ivet Calderon Age: 71 yrs Sex: Female : 1950 Arrival Date: 08/20/2021 Time: 15:42 Bed 15 Private MD: Diagnosis: Non ST elevation [place] Presentation: 08/20 15:37 Chief complaint: EMS states: pt was work at [employer] [place] moving [place]. she tw2 started having back pain that moved into her chest. we gave 30 mg IV Toradol around 1535. vs stable. she is allergic to morphine. hx: htn, dm, high cholesterol. Coronavirus screen: At this time, the client does not indicate any symptoms associated with coronavirus-19. Ebola Screen: Patient denies travel to an Ebola-affected area in the 21 days before illness onset. Risk Assessment: Do you want to hurt yourself or someone else? Patient reports no desire to harm self or others. Onset of symptoms was August 20, 2021. Care prior to arrival: Medication(s) given: Toradol 30 mg IV IV initiated. 18 GA, in the right antecubital area. 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 then tw2 by 2 or 2:30 the pain started getting worse. i didn't want to go home because we only work 6 hours. but the pain got worse and i couldn't wait. the ambulance gave me some medicine and it helped. i am also hurting like around my bra strap but i dont think it is chest pain. Initial Sepsis Screen: Does the patient meet any 2 criteria? No. Patient's initial sepsis screen is negative. Does the patient have a suspected source of infection? No. Patient's initial sepsis screen is negative. 15:49 Acuity: DORYS 3 tw2 Triage Assessment: 15:47 General: Appears in no apparent distress. Behavior is calm, cooperative, appropriate tw2 for age. Historical: - Allergies: 15:52 Morphine (burning to IV site); tw2 - Home Meds: 15:52 aspirin 81 mg Oral chew 1 tab once daily [Active]; metformin 500 mg Oral tab 1 tab 2 tw2 times per day [Active]; Lopressor 50 mg Oral tab 1 tab once daily [Active]; "high blood pressure medicine that starts with a P, thats 40 mg" [Active]; - PMHx: 15:52 Diabetes - NIDDM; Hypertension; Heart attack; tw2 - PSHx: 15:52 Appendectomy; open heart surgery; Cholecystectomy; tw2 - Immunization history:: Client reports having NOT received the Covid vaccine. - Social history:: Smoking status: Patient denies any tobacco usage or history of. Screenin:21 Abuse screen: Denies threats or abuse. Nutritional screening: No deficits noted. tw2 Tuberculosis screening: No symptoms or risk factors identified. Fall Risk None identified. Assessment: 17:10 General: Appears uncomfortable, well groomed, well developed, Behavior is calm, sl2 cooperative, appropriate for age, Reports lower back pain. 17:10 Pain: Complains of pain in Lower back Pain does not radiate. Pain currently is 6 out of sl2 10 on a pain scale. Quality of pain is described as aching, crampy, Pain began gradually. Neuro: Level of Consciousness is awake, alert, obeys commands, Oriented to person, place, time, situation, Appropriate for age Yarder Operator are equal bilaterally Moves all extremities. Full function Gait is steady, Speech is normal, Facial symmetry appears normal, Pupils are PERRLA. Cardiovascular: No deficits noted. Respiratory: No deficits noted. Reports. GI: No deficits noted. No signs and/or symptoms were reported involving the gastrointestinal system. : No deficits noted. No signs and/or symptoms were reported regarding the genitourinary system. EENT: No deficits noted. No signs and/or symptoms were reported regarding the EENT system. Derm: No deficits noted. No signs and/or symptoms reported regarding the dermatologic system. Musculoskeletal: No deficits noted. No signs and/or symptoms reported regarding the musculoskeletal system. 19:50 Reassessment: Patient appears in no apparent distress at this time. Denies any c/o pain cc4 \\T\\ present time; CM monitoring SR with no ectopy; VSS; JAMIE Mendoza in \\T\\ bedside \\T\\ instructing on need for admission with v/u; swabbed for covid-19 \\T\\ sent to lab. 21:45 Reassessment: Patient appears in no apparent distress at this time. JAMIE Talley in cc4 to see; voices no complaints; VSS. Vital Signs: 15:49 BP 157 / 49; Pulse 68; Resp 17; Temp 97.4(TE); Pulse Ox 98% on R/A; Weight 74.84 kg tw2 (R); Height 5 ft. 1 in. (154.94 cm) (R); Pain 8/10; 17:30 BP 152 / 59; Pulse 75; Resp 18; Temp 97.8(O); Pulse Ox 99% on R/A; sl2 18:02 BP 180 / 63; Pulse 66; Resp 20; Pulse Ox 100% on R/A; mh5 18:44 BP 179 / 53; Pulse 76; Resp 22; Pulse Ox 97% on R/A; mh5 19:50 BP 144 / 45; Pulse 71; Resp 20; Temp 98.3; Pulse Ox 96% ; cc4 21:57 BP 166 / 61; Pulse 71; Resp 20; Temp 97.9(O); Pulse Ox 100% on R/A; cc4 15:49 Body Mass Index 31.18 (74.84 kg, 154.94 cm) tw2 ED Course: 15:42 Patient arrived in ED. ds1 15:47 Arm band placed on. tw2 15:52 Triage completed. tw2 16:01 EKG completed in triage. Results shown to MD. tw2 16:54 Bed in low position. Call light in reach. Side rails up X 1. Warm blanket given. tw2 16:55 [facility] Macias [facility] 16:55 Abbe Lao MD is Attending Physician. [facility] 17:17 EKG done, by ED staff, reviewed by Los AYALA. mh5 17:35 Meme Barajas, RN is Primary Nurse. 2 18:01 CBC with Automated Diff Sent. mh5 18:01 Basic Metabolic Panel Sent. mh5 18:01 Basic Metabolic Panel Sent. 5 18:01 CBC with Diff Sent. 5 18:01 LFT's Sent. 5 18:01 Magnesium Sent. 5 18:01 NT PRO-BNP Sent. 5 18:01 PT-INR Sent. 5 18:01 Troponin (emerg Dept Use Only) Sent. 5 18:02 Initial lab(s) drawn, by me, sent to lab. EKG done. Maintain EMS IV. Dressing intact. mh5 Good blood return noted. Site clean \\T\\ dry. 18:16 XRAY Chest (1 view) In Process Unspecified. EDMS 18:22 telemetry monitor on. Pulse ox on. NIBP on. mh5 18:24 No provider procedures requiring assistance completed. 2 18:33 CT Aorta for Dissection In Process Unspecified. EDMS 19:21 Primary Nurse role handed off by Meme Barajas, JOSE tt3 19:47 Bertha Hahn, RN is Primary Nurse. cc4 19:47 COVID-19 (Coronavirus) Document "Date of Onset" if Symptomatic Sent. cc4 20:19 SARS-COV-2 RT PCR Sent. cc4 20:27 Jann Levine is Hospitalizing Provider. [facility] 22:22 Patient admitted, IV remains in place. cc4 Administered Medications: 18:10 Drug: diphenhydrAMINE 12.5 mg Route: IVP; Site: right antecubital; jl7 18:12 Drug: Zofran (Ondansetron) 4 mg Route: IVP; Site: right antecubital; jl7 19:50 Drug: Aspirin Chewable Tablet 324 mg Route: PO; cc4 20:22 Follow up: Response: No adverse reaction cc4 Outcome: 20:27 Decision to Hospitalize by Provider. [facility] 22:20 Admitted to Med/surg accompanied by tech, room 217, Report called to JOSE crockett. cc4 22:20 Condition: stable 22:20 Instructed on the need for admit, Demonstrated understanding of instructions. 22:23 Patient left the ED. 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 tw2 then by 2 or 2:30 the pain started getting worse. i didn't want to go home because we only work 6 hours. but the pain got worse and i couldn't wait. the ambulance gave me some medicine and it helped. 17:20 Reassessment: 19:47 CORONAVIRUS drawn and sent. cc4 EDMS
[2021-08-20] MEDS ORDERED: ONDANSETRON 4 MG/2 ML VIAL IV PRN (22:35)
[2021-08-20] MEDS ORDERED: HYDRALAZINE HCL 20 MG/ML VIAL IV PRN (22:35)
[2021-08-20] MEDS ORDERED: NITROGLYCERIN 0.4 MG/TAB SL PRN (22:35)
[2021-08-20 23:12] VITALS: BMI 31.1
--- NOTE | 2021-08-20 23:19 | P.HP ---
Certification for Inpatient Patient admitted to: Inpatient With expected LOS: <2 Midnights Patient will require the following post-hospital care: None Practitioner: I am a practitioner with admitting privileges, knowledge of patient current condition, hospital course, and medical plan of care. Services: Services provided to patient in accordance with Admission requirements found in Title 42 Section 412.3 of the Code of Federal Regulations Patient History Date of Service: 08/20/21 Reason for admission: chest pain, anemia History of Present Illness: Ms. Calderon is a 71 yo F with CAD s/p CABG and cardiac stents, prior [place], APRIL, HTN, DM who presents with 07/23 sharp chest and back pain beginning today at 11:30am while she was working. The pain radiates from her back to under her left arm and underneath both breasts. Pain was intermittent until it began to worsen at around 3:30pm. She says pain is worse with lifting heavy objects and was not relieved with rest. Denies nausea, vomiting, diaphoresis. Pain relieved with 4 baby ASA in the ED. She saw her blueprinter on Saturday and is scheduled to have a stress test on 09/15. Spoke to cardiology production tech, recommend to hold anticoagulation, control chest pain, and initiate blood transfusion. She recently saw hematology with plans to start IV iron transfusions 08/26 since she cannot tolerate PO iron. H/H 7.6, MCV 77.2, trop 0.11, BNP 652. Allergies morphine Adverse Reaction (Verified 05/23/20 04:00) Nausea/Vomiting Home Medications: Aspirin Chewable [Aspirin Chewable*] 81 mg PO DAILY 07/27/19 Metformin HCl [Glucophage*] 850 mg PO BID 07/27/19 Atorvastatin Calcium [Lipitor] 80 mg PO DAILY #30 tablet 05/24/20 Clopidogrel Bisulfate [Plavix] 75 mg PO DAILY #30 05/24/20 Insulin Detemir [Levemir Flextouch] 10 unit SQ BEDTIME #1 packet 05/24/20 Losartan Potassium [Cozaar] 25 mg PO [id number] #30 05/24/20 Metoprolol Tartrate [Lopressor*] 25 mg PO BID #60 tab 05/24/20 - Past Medical/Surgical History Diabetic: Yes -: HTN -: NIDDM -: blurry vision both eyes -: CO -: iro ndeficiency anemia -: CAD -: Tubal Ligation -: Stent 2018 -: Eye Sx -: appendectomy -: CABG -: Cholecystectomy - Family History Mother -: Lung disease, Diabetes Father -: Diabetes, Cancer, Other (see notes) Notes: alzheimers - Social History Smoking Status: Never smoker Alcohol use: No CD- Drugs: No Caffeine use: No Review of Systems 10-point ROS is otherwise unremarkable General: Malaise Cardiovascular: Chest Pain Musculoskeletal: Back Pain Physical Examination - Vital Signs Temperature: 97.9 F Blood Pressure: 166/61 Pulse: 71 Respirations: 20 - Physical Exam General: Alert, In no apparent distress HEENT: Atraumatic, PERRLA, Mucous membr. moist/pink, EOMI, Sclerae nonicteric Neck: Supple, 2+ carotid pulse no bruit, No LAD, Without JVD or thyroid abnormal ity Respiratory: Clear to auscultation bilaterally, Normal air movement Cardiovascular: Regular rate/rhythm, Normal S1 S2 Gastrointestinal: Normal bowel sounds, No tenderness Musculoskeletal: No tenderness Integumentary: No rashes Neurological: Normal speech, Normal strength at 5/5 x4 extr, Normal tone, Normal affect Lymphatics: No axilla or inguinal lymphadenopathy - Studies Laboratory Data (last 24 hrs) 08/20/21 17:55: PT 12.6 H, INR 1.09 08/20/21 17:55: WBC 10.50, Hgb 7.6 L, Hct 24.9 L, Plt Count 334 08/20/21 17:55: Sodium 140, Potassium 3.8, BUN 17, Creatinine 0.81, Glucose 168 H, Magnesium 2.3 D, Total Bilirubin 0.3, AST 16, ALT 20, Alkaline Phosphatase 117 Assessment and Plan - Problems (Diagnosis) (1) Anemia Current Visit: Yes Status: Chronic Qualifiers: Anemia type: iron deficiency Iron deficiency anemia type: unspecified iron deficiency Qualified Code(s): D50.9 - Iron deficiency anemia, unspecified (2) Chest pain Onset Date: 08/22/16 Current Visit: No Status: Acute Qualifiers: Chest pain type: unspecified Qualified Code(s): R07.9 - Chest pain, unspecified (3) CAD (coronary artery disease) Onset Date: 06/09/18 Current Visit: No Status: Chronic Qualifiers: Coronary Disease-Associated Artery/Lesion type: bypass graft [place] vs. 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) use of insulin (5) Hyperlipidemia Onset Date: 06/09/18 Current Visit: No Status: Chronic Qualifiers: (6) Hypertension Onset Date: 10/01/16 Current Visit: No Status: Chronic Qualifiers: Hypertension type: primary hypertension Qualified Code(s): I10 - Essential (primary) hypertension - Plan cardiology consulted, on tele trend troponins and repeat EKG transfuse 2 units pRBCs, and repeat H/H daily ASA, BB, statin, PRN NTG lipid, thyroid and A1c labs pending anemia workup pending hydralazine PRN for BP spikes sliding scale insulin and accuchecks DVT ppx Discharge Plan: Home Plan to discharge in: 48 Hours - Advance Directives Does patient have a Living Will: No Does patient have a Durable POA for Healthcare: No - Code Status/Comfort Care Code Status Assessed: Yes (full code ) Critical Care: No Time Spent Managing Pts Care (In Minutes): 70
[2021-08-20 23:43] LABS: Folic Acid, (Folate) 18.2 ng/mL (3.1-17.5); Troponin I 0.11 ng/mL (0.0-0.045)
[2021-08-21] MEDS ORDERED: NA CHLORIDE 0.9% 250 ML ONE (00:18)
[2021-08-21] MEDS: ACETAMINOPHEN 500 MG TAB PO PRN ×2 (00:58→10:24)
[2021-08-21] MEDS ORDERED: FENTANYL CITR 100 MCG/2 ML IV ONE (01:17)
[2021-08-21] MEDS ORDERED: DIPHENHYDRAMINE 25 MG TAB/CAP PO ONE ×2 (01:17→01:31)
[2021-08-21] MEDS: METOPROLOL TAR 25 MG TAB PO SCH ×2 (05:34→05:55)
[2021-08-21 07:24] LABS: Absolute Lymphocytes (CBC) 2.6 K/uL (0.7-4.9); Basophils % 0.5 % (0-1.3); Hematocrit 27.3 % (36.0-45.0); Lymphocytes % 28.8 % (15.3-44.8)
[2021-08-21] MEDS: INSULIN -REGULAR HUMAN 50 UNIT/0.5 ML ML SQ SCH ×3 (07:30→16:30)
[2021-08-21 07:44] LABS: ALT/SGPT 13 U/L (12-78); AST/SGOT 14 U/L (15-37); Albumin 2.6 g/dL (3.4-5.0); Alkaline Phosphatase 105 U/L (45-117); BUN Blood Urea Nitrogen 15 mg/dL (7-18); Bicarbonate 26 mmol/L (21-32); Bilirubin Total 1.2 mg/dL (0.2-1.0); Glucose Level 136 mg/dL (74-106); HDL Cholesterol 39 mg/dL (40-60); LDL Cholesterol, Calculated 91 (<130); Magnesium 2.3 mg/dL (1.8-2.4); Phosphorus 3.6 mg/dL (2.5-4.9); Potassium 3.8 mmol/L (3.5-5.1); Protein, Total 7.3 g/dL (6.4-8.2); Sodium Level 141 mmol/L (136-145)
[2021-08-21] MEDS ORDERED: ASPIRIN EC 81 MG TAB PO SCH (09:00)
[2021-08-21 09:17] VITALS: O2SAT 96
[2021-08-21 13:01] LABS: Hematocrit 28.5 % (36.0-45.0)
[2021-08-21 13:10] VITALS: TEMP 98.1
--- NOTE | 2021-08-21 14:36 | P.PN ---
Subjective Date of Service: 08/21/21 Chief Complaint: chest pain, anemia Patient states she feels better today. Her chest pain associated with bilateral shoulder pain and is reproducible by palpation. Troponin trended flat. Patient given a units of PRBC transfusion. Physical Examination - Vital Signs Temperature: 98.1 F Blood Pressure: 149/67 Pulse: 63 Respirations: 12 Pulse Ox (%): 96 - Physical Exam General: Alert, In no apparent distress, Oriented x3 HEENT: Mucous membr. moist/pink Neck: JVD not distended Respiratory: Clear to auscultation bilaterally, Normal air movement Cardiovascular: Regular rate/rhythm, Normal S1 S2 Gastrointestinal: Soft and benign, Non-distended, No tenderness Musculoskeletal: No swelling Integumentary: No rashes, No erythema Neurological: Normal strength at 5/5 x4 extr - Studies Laboratory Data (last 24 hrs) 08/20/21 17:55: PT 12.6 H, INR 1.09 08/20/21 17:55: WBC 10.50, Hgb 7.6 L, Hct 24.9 L, Plt Count 334 08/20/21 17:55: Sodium 140, Potassium 3.8, BUN 17, Creatinine 0.81, Glucose 168 H, Magnesium 2.3 D, Total Bilirubin 0.3, AST 16, ALT 20, Alkaline Phosphatase 117 Assessment And Plan - Current Problems (Diagnosis) (1) Anemia Current Visit: Yes Status: Chronic Qualifiers: Anemia type: iron deficiency Iron deficiency anemia type: unspecified iron deficiency Qualified Code(s): D50.9 - Iron deficiency anemia, unspecified (2) Chest pain Onset Date: 08/22/16 Current Visit: No Status: Acute Qualifiers: Chest pain type: unspecified Qualified Code(s): R07.9 - Chest pain, unspecified (3) CAD (coronary artery disease) Onset Date: 06/09/18 Current Visit: No Status: Chronic Qualifiers: Coronary Disease-Associated Artery/Lesion type: bypass graft [place] vs. 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 Post transfusion Hb up to 9. Continue ASA Troponin mildy but trended flat. Continue metoprolol and Lipitor. Cardiology to see patient. Nuclear stress test per cardiology.
[2021-08-21 16:45] VITALS: BP 123/59
--- NOTE | 2021-08-21 17:22 | P.DS ---
Admission Date: 08/20/21 Discharge Date: 08/21/21 Disposition: ROUTINE DISCHARGE Discharge Condition: FAIR Reason for Admission: chest pain, anemia - Problems (1) Anemia Current Visit: Yes Status: Chronic Qualifiers: Anemia type: iron deficiency Iron deficiency anemia type: unspecified iron deficiency Qualified Code(s): D50.9 - Iron deficiency anemia, unspecified (2) Chest pain Onset Date: 08/22/16 Current Visit: No Status: Acute Qualifiers: Chest pain type: unspecified Qualified Code(s): R07.9 - Chest pain, unspecified (3) CAD (coronary artery disease) Onset Date: 06/09/18 Current Visit: No Status: Chronic Qualifiers: Coronary Disease-Associated Artery/Lesion type: bypass graft [place] vs. 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 Calderon is a 71 yo F with CAD s/p CABG and cardiac stents, prior [place], APRIL, HTN, DM who presented with 10/10 sharp chest and back pain. The pain radiates from her back to under her left arm and underneath both breasts. Pain was intermittent until it began to worsen at around 3:30pm. She says pain is worse with lifting heavy objects and was not relieved with rest. Denies nausea, vomiting, diaphoresis. Pain relieved with 4 baby ASA in the ED. She saw her cork insulation setter on Saturday and is scheduled to have a stress test on 09/15. Spoke to cardiology microeconomics professor, recommend to hold anticoagulation, control chest pain, and initiate blood transfusion. She recently saw hematology with plans to start IV iron transfusions 08/26 since she cannot tolerate PO iron. H/H 7.6, MCV 77.2, trop 0.11, BNP 652. Patient hospitalizied for ACS rule out. Hospital Course: Patient placed on observation on the medical floor. Troponin mildly elevated but trended flat. Patient given 1 unit PRBC transfusion. Posttransfusion hemoglobin was up to 9. No chest pain during the hospital stay. Her chest pain description sounded atypical and likely musculoskeletal. Chest pain was reproducible by palpation. Mild troponin elevation considered secondary to anem ia and patient deemed stable for discharge per cardiology-Dr. Shook. Patient will follow with Dr. Shook regarding her schedule for outpatient stress test. Vital Signs/Physical Exam: Temp Pulse Resp BP Pulse Ox 98.1 F 67 12 123/59 L 92 08/21/21 16:00 08/21/21 16:00 08/21/21 16:00 08/21/21 16:00 08/21/21 16:00 General: Alert, In no apparent distress, Oriented x3 HEENT: Mucous membr. moist/pink Neck: JVD not distended Respiratory: Clear to auscultation bilaterally, Normal air movement Cardiovascular: No edema, Regular rate/rhythm, Normal S1 S2, No murmurs Gastrointestinal: Soft and benign, Non-distended, No tenderness Musculoskeletal: No swelling Integumentary: No rashes, No erythema Neurological: Normal speech, Normal strength at 5/5 x4 extr Laboratory Data at Discharge: WBC 9.00 K/uL (4.3-10.9) D 08/21/21 07:12 Hgb 9.0 g/dL (12.0-15.0) L 08/21/21 12:53 Hct 28.5 % (36.0-45.0) L 08/21/21 12:53 Plt Count 296 K/uL (152-406) 08/21/21 07:12 PT 12.6 SECONDS (9.5-12.5) H 08/20/21 17:55 INR 1.09 08/20/21 17:55 Sodium 141 mmol/L (136-145) 08/21/21 07:12 Potassium 3.8 mmol/L (3.5-5.1) 08/21/21 07:12 BUN 15 mg/dL (7-18) 08/21/21 07:12 Creatinine 0.60 mg/dL (0.55-1.3) 08/21/21 07:12 Glucose 136 mg/dL (74-106) H 08/21/21 07:12 Phosphorus 3.6 mg/dL (2.5-4.9) 08/21/21 07:12 Magnesium 2.3 mg/dL (1.8-2.4) 08/21/21 07:12 Total Bilirubin 1.2 mg/dL (0.2-1.0) H 08/21/21 07:12 AST 14 U/L (15-37) L 08/21/21 07:12 ALT 13 U/L (12-78) 08/21/21 07:12 Alkaline Phosphatase 105 U/L (45-117) 08/21/21 07:12 Troponin I 0.11 ng/mL (0.0-0.045) H 08/21/21 07:12 Triglycerides 114 mg/dL (<150) 08/21/21 07:12 Cholesterol 153 mg/dL (<200) 08/21/21 07:12 HDL Cholesterol 39 mg/dL (40-60) L 08/21/21 07:12 Cholesterol/HDL Ratio 3.92 08/21/21 07:12 Home Medications: Aspirin Chewable [Aspirin Chewable*] 81 mg PO DAILY 07/27/19 Atorvastatin Calcium [Lipitor] 80 mg PO DAILY 08/21/21 Iron Polysaccharide Complex [Polysaccharide Iron] 150 mg PO DAILY #30 capsule 08/21/21 Metformin HCl [Glucophage*] 850 mg PO BID 08/21/21 Metoprolol Tartrate [Lopressor*] 25 mg PO BID 08/21/21 New Medications: Iron Polysaccharide Complex [Polysaccharide Iron] 150 mg PO DAILY #30 capsule Diet: AHA Activity: Ad milo Followup: Shant Lao DO [Primary Care Provider] - 1-2 Weeks
--- NOTE | 2021-08-21 18:24 | EKG ---
Test Date: 2021-08-21 Test Time: 10:30:16 Carbonizer Tester: JADEN MEASUREMENT RESULTS: Intervals: Rate: 67 NJ: 156 QRSD: 80 QT: 400 QTc: 422 David: P: 66 NJ: 156 QRS: 70 T: 4 INTERPRETIVE STATEMENTS: Normal sinus rhythm Cannot rule out Anterior infarct, age undetermined Abnormal ECG Compared to ECG 08/21/2021 01:25:07 Myocardial infarct finding now present ST (T wave) deviation no longer present Possible ischemia no longer present Electronically Signed On 08-21-21 18:23:23 SHELTERED WORKSHOP WORKER by Alden Shook
--- NOTE | 2021-08-21 18:25 | EKG ---
Test Date: 2021-08-21 Test Time: 01:25:07 Concert Pianist: MICHAEL MEASUREMENT RESULTS: Intervals: Rate: 94 MS: 156 QRSD: 78 QT: 340 QTc: 425 [place]: P: 61 MS: 156 QRS: 75 T: 261 INTERPRETIVE STATEMENTS: Normal sinus rhythm ST & T wave abnormality, consider inferior ischemia ST & T wave abnormality, consider anterolateral ischemia Abnormal ECG Compared to ECG 08/05/2020 11:08:20 ST (T wave) deviation now present Possible ischemia now present Electronically Signed On 08-21-21 18:23:28 COMMUNICATION CLERK by Alden Shook
--- NOTE | 2021-08-21 18:26 | EKG ---
Test Date: 2021-08-20 Test Time: 15:57:05 Drier Feeder: GRAZYNA MEASUREMENT RESULTS: Intervals: Rate: 66 MD: 152 QRSD: 76 QT: 408 QTc: 427 [place]: P: 11 MD: 152 QRS: 45 T: 8 INTERPRETIVE STATEMENTS: Normal sinus rhythm Cannot rule out Anterior infarct, age undetermined Abnormal ECG Compared to ECG 08/05/2020 11:08:20 Myocardial infarct finding now present Electronically Signed On 08-21-21 18:23:39 TELEVISION HOST by Alden Shook
[2021-08-21] MEDS ORDERED: ATORVASTATIN 80 MG TAB PO SCH (21:00)
--- OUTSIDE RECORDS SUMMARY | 2021-08-26 15:45 | XMS REPORT | Continuity of Care Document ---
:1950 Author Organization [facility] t Address [address] [place] [address] Care Team Providers Name Role Phone Pcp, Patient Does Not Have A Primary Care Physician +[id number] EVELYN GALLARDO Attending Clinician Unavailable Ad GARCIA Attending Clinician Unavailable Maria Del Rosario YOST Attending Clinician Unavailable Radha EDWARD S Attending Clinician Maria Del Rosario Yost MD Attending Clinician Yaw ROMAN, G Attending Clinician Sunil Attending Clinician Doctor Unassigned, Name Attending Clinician Unavailable Evelyn Gallardo MD Attending Clinician Marleni Moe MD Attending Clinician BLANCA MONIQUE Attending Clinician Unavailable EVELYN GALLARDO Admitting Clinician Unavailable BLANCA MONIQUE Admitting Clinician Unavailable Payers Payer Name Policy Type Policy Number Effective Date Expiration Date Ad STEPHEN O ALL [id number] 2018 00:00:00 EAMON GIBBONS PLS [id number] 2021 O 00:00:00 Problems Condition Condition Condition Status Onset Resolution Last Treating Co mments Source Name Details Category Date Date Treatment Clinician Date Left Left Disease Active 2019-[address] [facility] carotid carotid 2- [facility] - artery artery 00:00: Medical stenosis stenosis 00 Center S/P CABG x S/P CABG x Disease Active 2018-[address] 1 by 1 by 016 [facility] on on 00:00: Me dical 07/29/2019 07/29/2019 00 Ce nter Coronary Coronary Disease Active 2018-10 [facility] artery artery 0-15 [facility] - disease disease 00:00: Medical 00 Center Other Other Disease Active Overview: Univer s appendicit appendicit 606 [place] ity of is is 00:00: g of this 00 note Medical might be Branch different from the original. Added automatic ally from request for surgery [id number] HLD HLD Disease Active Univers (hyperlipi (hyperlipi 04-18 it y of demia) demia) 00:00: [place] 00 Medical Branch Type 2 Type 2 Disease Active Univers diabetes diabetes 04-18 ity of mellitus mellitus 00:00: [place] without without 00 Medical complicati complicati Br anch on on Essential Essential Disease Active Uni vers hypertensi hypertensi 04-18 it y of on on 00:00: [place] 00 Medical Branch Abnormal Abnormal Disease Active Unive rs EKG EKG 04-18 ity of 00:00: [place] 00 Medical Branch Acute Acute Disease Active [facility] respirator respirator Daniela kes - y y Medical insufficie insufficie Ce nter ncy ncy Acute Acute Disease Active [facility] blood loss blood loss Daniela kes - anemia anemia [facility] Hyperglyce Hyperglyce Disease Active [facility] Chronic Chronic Disease Active [facility] hypertensi hypertensi Daniela kes - on on Medical Center Allergies, Adverse Reactions, Alerts Allergy Allergy Status Severity Reaction(s) Onset Inactive Treating Comm ents Source Name Type Date Date Clinician Morphine Propensi Active Other - See Burning Univers ty to comments 06-18 to skin ity of adverse 00:00: [place] reaction 00 Medical s Branch MORPHINE DRUG Active Other-Cmnt Univ ers INGREDI 06-18 ity of 00:00: [place] [facility] MORPHINE Allergy Active 2019-[address] [facility] [address] [facility] 00:[facility] Medical 00 Center Morphine Propensi Active 2019-[address] [facility] [address] ty to 11-14 [facility] - adverse 00:00: Medical reaction 00 Center s NO KNOWN Drug Active Univers ALLERGIE Class ity of S [facility] NO KNOWN Allergy Active [facility] ALLERGIE S Family History Family Member Diagnosis Comments Start Date Stop Date Source Natural brother Heart attack [facility] Natural father Diabetes [facility] Natural father Heart disease [facility] Natural mother Diabetes [facility] Natural mother Heart disease [facility] Social History Social Habit Start Date Stop Date Quantity Comments Source Exposure to Not sure [facility] SARS-CoV-2 [facility] (event) Branch History SDOH [facility] - Alcohol Std Medical Cente r Drinks History SDOH [facility] - Alcohol Binge Medical Tina ter Tobacco use and 2021-06-18 2021-06-18 Never used Universit y of exposure 00:00:00 00:00:00 [facility] Alcohol intake 2021-06-18 2021-06-18 Current University 00:00:00 00:00:00 non-drinker of [facility] alcohol Branch (finding) History SDOH 2019-07-28 2019-07-[address] [facility] - Alcohol Frequency 00:00:00 00:00:00 [facility] Sex Ass[birth year] At [birth year] Universit y of 00:00:00 00:00:00 [facility] Smoking Status Start Date Stop Date Source Never smoker [place] [facility] Medications Ordered Filled Start Stop Current Ordering Indication Dosage Frequency Signature Comments Components Source Medication Medication Date Date Medication? Clinician (SIG) Name Name ketorolac No 30mg 30 mg, Unive rs (TORADOL) 06-18 Intramuscu ity of injection 16:45: 15:41 [place], [place]CE, [place] 30 mg 00 :00 1 dose, Medical 06/18/21 Branch at 1145, JASON
Fa culty member approving Restricted medication : CAROL ANN BEATTY HYDROcodone 2020- No 1{tbl} 1 tablet, Univers -acetaminop 06-18 Oral, ity of hen (NORCO) 16:45: 15:41 [place]325 mg 00 :00 dose, Sun Medic al tablet 1 06/18/21 [facility] tablet 1145, Routine clopidogreL Yes 75mg Take 75 mg Univers 75 mg 05 by mouth. ity of tablet 16:10: [address] metoprolol Yes 25mg Take 25 mg U nivers tartrate 25 06-18 by mouth. ity of mg tablet 16:10: [address] clopidogreL Yes 75mg Take 75 mg Univers 75 mg 05 by mouth. ity of tablet 16:10: [address] metoprolol Yes 25mg Take 25 mg U nivers tartrate 25 06-18 by mouth. ity of mg tablet 16:10: [address] clopidogreL Yes 75mg Take 75 mg Univers 75 mg 05 by mouth. ity of tablet 16:10: [address] metoprolol Yes 25mg Take 25 mg U nivers tartrate 25 06-18 by mouth. ity of mg tablet 16:10: [address] clopidogreL Yes 75mg Take 75 mg Univers 75 mg 05 by mouth. ity of tablet 16:10: [address] metoprolol Yes 25mg Take 25 mg U nivers tartrate 06-18 by mouth. ity of mg tablet 16:10: [address] clopidogreL Yes 75mg Take 75 mg Univers 75 mg 05 by mouth. ity of tablet 16:10: [address] metoprolol Yes 25mg Take 25 mg U nivers tartrate 06-18 by mouth. ity of mg tablet 16:10: [address] atorvastati 2020- No 80mg Take 80 mg Univers n 40 mg 06-18 by mouth. ity of tablet 16:10: 00:00 [place] 25 :00 [facility] metFORMIN 2020-2020- No 850mg Take 850 Un zia 850 mg 06-18 mg by ity of tablet 16:10: 00:00 mouth. [place] 25 :00 [facility] traMADoL 50 2020- Yes [id number] 50mg Take 1 Uni vers mg tablet 9-05 09-13 tablet by ity of 00:00: 04:59 mouth [place] 00 :00 every 6 Medical (six) Branch hours as needed for Pain (scale 1-3), Pain (scale 4-6) or Pain (scale 7-10) for up to 7 days. Indication s: acute pain traMADoL 50 2020- Yes 4647 50mg Take 1 Uni vers mg tablet 06-18 tablet by ity of 00:00: 04:59 mouth [place] 00 :00 every 6 Medical (six) Branch hours as needed for Pain (scale 1-3), Pain (scale 4-6) or Pain (scale 7-10) for up to 7 days. Indication s: acute pain traMADoL 50 2020- Yes 4647 50mg Take 1 Uni vers mg tablet 06-18 tablet by ity of 00:00: 04:59 mouth [place] 00 :00 every 6 Medical (six) Branch hours as needed for Pain (scale 1-3), Pain (scale 4-6) or Pain (scale 7-10) for up to 7 days. Indication s: acute pain traMADoL 50 2020- Yes 4647 50mg Take 1 Uni vers mg tablet 06-18 tablet by ity of 00:00: 04:59 mouth [place] 00 :00 every 6 Medical (six) Branch hours as needed for Pain (scale 1-3), Pain (scale 4-6) or Pain (scale 7-10) for up to 7 days. Indication s: acute pain traMADoL 50 2020- Yes 4647 50mg Take 1 Uni vers mg tablet 06-18 tablet by ity of 00:00: 04:59 mouth [place] 00 :00 every 6 Medical (six) Branch hours as needed for Pain (scale 1-3), Pain (scale 4-6) or Pain (scale 7-10) for up to 7 days. Indication s: acute pain aspirin 81 2019-10 Yes 81mg QD Take [address] MG EC 2-21 by mouth [facility] - tablet 11:03: daily. [address] atorvastati 2019-10 Yes 80mg QD Take [address] n (LIPITOR) 2-21 by mouth Luke s - 40 MG 11:03: daily . Medical tablet Center metFORMIN 2019-10 Yes 850mg Take [address] (GLUCOPHAGE 2-21 mg by [facility] - ) 850 MG 11:03: mouth 2 Medica l tablet 52 (two) Center times daily with breakfast and dinner. clopidogreL 2019-10 Yes 75mg QD Take [address] (PLAVIX) 75 2-21 by mouth Luke s - mg tablet 11:03: daily. Medica l [address] [place] metoprolol 2019-10 Yes 25mg Q.5D Take [address] tartrate 2-21 by mouth 2 [facility] - (LOPRESSOR) 11:03: (two) Medic al 25 MG 52 times Center tablet daily. aspirin 81 2019-10 Yes 81mg QD Take [address] MG EC 2-21 by mouth [facility] - tablet 11:03: daily. Medical [address] [place] [address] atorvastati 2019-10 Yes 80mg QD Take [address] n (LIPITOR) 2-21 by mouth Luke s - 40 MG 11:03: daily . Medical tablet [address] [place] [address] metFORMIN 2019-10 Yes 850mg Take [address] (GLUCOPHAGE 2-21 mg by [facility]ukes - ) 850 MG 11:03: mouth 2 Medica l tablet 52 (two) Center times daily with breakfast and dinner. clopidogreL 2019-10 Yes 75mg QD Take [address] (PLAVIX) 75 2-21 by mouth Luke s - mg tablet 11:03: daily. Medica l [address] [place] [address] metoprolol 2019-10 Yes 25mg Q.5D Take 25 [...] [address] (COZAAR) 25 2-09-13 by mouth Dhruv es - MG tablet 13:32: 00:00 daily. Medic al 26 :00 [place] losartan 2019-10- No 25mg QD Take [address] (COZAAR) 25 11-14 by mouth Dhruv es - MG tablet 13:32: 00:00 daily. Medic al 26 :00 Center acetaminoph 2019-10- No 1{tbl} Take 1 C [...] Center unit/mL (3 nightly. mL) InPn injection Insulin 2019-10 Yes 15U inject 15 Unive rs Detemir 1-04 Units ity of (LEVEMIR 00:[place]LE[place] 00 skin. Medical U-100 Branch INSULN) 100 unit/mL (3 mL) injection Insulin 2019-10 Yes 15U inject 15 Unive rs Detemir 1-04 Units ity of (LEVEMIR 00:00: [place] FLEXT[place] 00 skin. Medical U-100 Branch INSULN) 100 unit/mL (3 mL) injection Insulin 2019-10 Yes 15U inject 15 Unive rs Detemir 1-04 Units ity of (LEVEMIR 00:00: [place] FLEXT[place] 00 skin. Medical U-100 Branch INSULN) 100 unit/mL (3 mL) injection Insulin 2019-10 Yes 15U inject 15 Unive rs Detemir 1-04 Units ity of (LEVEMIR 00:00: [place] FLEXT[place] 00 skin. Medical U-100 Branch INSULN) 100 unit/mL (3 mL) injection Insulin 2019-10 Yes 15U inject 15 Unive rs Detemir 1-04 Units ity of (LEVEMIR 00:00: [place] FLEXT[place] 00 skin. Medical U-100 Branch INSULN) 100 unit/mL (3 mL) injection citalopram 2019-10 Yes 20mg QD Take [address] (CeleXA) 20 0-14 by mouth Luke s - MG tablet 00:00: daily. Medica l [address] [place] citalopram 2019-10 Yes 20mg QD Take [address] (CeleXA) 20 0-14 by mouth Luke s - MG tablet 00:00: daily. Medica l [address] [place] [address] citalopram 2019-10 Yes 20mg Take 20 mg U nivers 20 mg 0-14 by mouth. ity of tablet 00:00: [place] [facility] citalopram 2019-10 Yes 20mg Take 20 mg U nivers 20 mg 0-14 by mouth. ity of tablet 00:00: [place] [facility] citalopram 2019-10 Yes 20mg Take 20 mg U nivers 20 mg 0-14 by mouth. ity of tablet 00:00: [place] [facility] citalopram 2019-10 Yes 20mg Take 20 mg U nivers 20 mg 0-14 by mouth. ity of tablet 00:00: [place] [facility] citalopram 2019-10 Yes 20mg Take 20 mg U nivers 20 mg 0-14 by mouth. ity of tablet 00:00: [address] metoprolol 2018-10- No 25mg Q.5D Take [address] (LOPRESSOR) 0-22 10-21 tablet (25 L ukes - 25 MG 00:00: 23:59 mg total) Medica l tablet 00 :00 by mouth 2 Center (two) times daily. metoprolol 2018-10- No 25mg Q.5D Take [address] (LOPRESSOR) 0-22 10-21 tablet (25 L ukes - 25 MG 00:00: 23:59 mg total) Medica l tablet 00 :00 by mouth 2 Center (two) times daily. atorvastati Yes [id number] 40mg Take 1 Univers n 40 mg 6-24 tablet by ity of tablet 00:00: mouth at [place] 00 bedtime. Medical Branch amLODIPine 0 Yes 5mg Take 1 Unive rs 5 mg tablet 6-24 tablet by ity of 00:00: mouth [place] 00 daily. Medical Indication Branch s: hasn't taken in a while due to financial issues hydroCHLORO 2019-0 Yes 12.5mg Take 1 Un zia thiazide 6-24 capsule by ity o f 12.5 mg 00:00: mouth [place] capsule 00 daily. Medical Indication Branch s: hasn't taken in a while due to financial issues lisinopril 2019-0 Yes 20mg Take 1 Unive rs 20 mg 6-24 tablet by ity of tablet 00:00: mouth 2 (two) Medical times Branch daily. Indication s: hasn't taken in a while due to financial issues atorvastati 2018- Yes [id number] 40mg Take 1 Univers n 40 mg 6-24 tablet by ity of tablet 00:00: mouth at [place] 00 bedtime. Medical Branch amLODIPine 0 Yes 5mg Take 1 Unive rs 5 mg tablet 6-24 tablet by ity of 00:00: mouth [place] 00 daily. Medical Indication Branch s: hasn't taken in a while due to financial issues hydroCHLORO 2018-0 Yes 12.5mg Take 1 Un zia thiazide 6-24 capsule by ity o f 12.5 mg 00:00: mouth [place] capsule 00 daily. Medical Indication Branch s: hasn't taken in a while due to financial issues lisinopril 2019-0 Yes 20mg Take 1 Unive rs 20 mg 6-24 tablet by ity of tablet 00:00: mouth 2 [place] (two) Medical times Branch daily. Indication s: hasn't taken in a while due to financial issues atorvastati 2019-0 Yes [id number] 40mg Take 1 Univers n 40 mg 6-24 tablet by ity of tablet 00:00: mouth at [place] 00 bedtime. Medical Branch amLODIPine 0 Yes 5mg Take 1 Unive rs 5 mg tablet 6-24 tablet by ity of 00:00: mouth [place] 00 daily. Medical Indication Branch s: hasn't taken in a while due to financial issues hydroCHLORO 2019-0 Yes 12.5mg Take 1 Un zia thiazide 6-24 capsule by ity o f 12.5 mg 00:00: mouth [place] capsule 00 daily. Medical Indication Branch s: hasn't taken in a while due to financial issues lisinopril 2019-0 Yes 20mg Take 1 Unive rs 20 mg 6-24 tablet by ity of tablet 00:00: mouth 2 [place] 00 (two) Medical times Branch daily. Indication s: hasn't taken in a while due to financial issues atorvastati 2019-0 Yes [id number] 40mg Take 1 Univers n 40 mg 6-24 tablet by ity of tablet 00:00: mouth at [place] 00 bedtime. Medical Branch lisinopril 2019-0 Yes 40mg QD Take [address] (PRINIVIL,Z 6-24 by mouth Luke s - ESTRIL) 20 00:00: daily . Medi albert MG tablet 00 [place] lisinopril Yes 40mg QD Take [address] (PRINIVIL,Z 6-24 by mouth Luke s - ESTRIL) 20 00:00: daily . Medi albert MG tablet 00 [place] amLODIPine 0 Yes 5mg Take 1 Unive rs 5 mg tablet 6-24 tablet by ity of 00:00: mouth [place] 00 daily. Medical Indication Branch s: hasn't taken in a while due to financial issues hydroCHLORO 2018-0 Yes 12.5mg Take 1 Un iza thiazide 6-24 capsule by ity o f 12.5 mg 00:00: mouth [place] capsule 00 daily. Medical Indication Branch s: hasn't taken in a while due to financial issues lisinopril 2019-0 Yes 20mg Take 1 Unive rs 20 mg 6-24 tablet by ity of tablet 00:00: mouth 2 [place] (two) Medical times Branch daily. Indication s: hasn't taken in a while due to financial issues atorvastati 2019-0 Yes [id number] 40mg Take 1 Univers n 40 mg 6-24 tablet by ity of tablet 00:00: mouth at [place] 00 bedtime. Medical Branch amLODIPine 2019-0 Yes 5mg Take 1 Unive rs 5 mg tablet 6-24 tablet by ity of 00:00: mouth [place] 00 daily. Medical Indication Branch s: hasn't taken in a while due to financial issues hydroCHLORO 2019-0 Yes 12.5mg Take 1 Un zia thiazide 6-24 capsule by ity o f 12.5 mg 00:00: mouth [place] capsule 00 daily. Medical Indication Branch s: hasn't taken in a while due to financial issues lisinopril 2019-0 Yes 20mg Take 1 Unive rs 20 mg 6-24 tablet by ity of tablet 00:00: mouth 2 (two) Medical times Branch daily. Indication s: hasn't taken in a while due to financial issues atorvastati 2019- Yes [id number] 40mg Take 1 Univers n 40 mg 6-24 tablet by ity of tablet 00:00: mouth at [place] 00 bedtime. Medical Branch amLODIPine 0 Yes 5mg Take 1 Unive rs 5 mg tablet 6-24 tablet by ity of 00:00: mouth [place] 00 daily. Medical Indication Branch s: hasn't taken in a while due to financial issues hydroCHLORO 2019-0 Yes 12.5mg Take 1 Un zia thiazide 6-24 capsule by ity o f 12.5 mg 00:00: mouth [place] capsule 00 daily. Medical Indication Branch s: hasn't taken in a while due to financial issues lisinopril 2018-0 Yes 20mg Take 1 Unive rs 20 mg 6-24 tablet by ity of tablet 00:00: mouth (two) Medical times Branch daily. Indication s: hasn't taken in a while due to financial issues atorvastati 2018- Yes [id number] 40mg Take 1 Univers n 40 mg 6-24 tablet by ity of tablet 00:00: mouth at [place] 00 bedtime. Medical Branch amLODIPine 0 Yes 5mg Take 1 Unive rs 5 mg tablet 6-24 tablet by ity of 00:00: mouth [place] 00 daily. Medical Indication Branch s: hasn't taken in a while due to financial issues hydroCHLORO 2019-0 Yes 12.5mg Take 1 Un zia thiazide 6-24 capsule by ity o f 12.5 mg 00:00: mouth [place] capsule 00 daily. Medical Indication Branch s: hasn't taken in a while due to financial issues lisinopril 2019-0 Yes 20mg Take 1 Unive rs 20 mg 6-24 tablet by ity of tablet 00:00: mouth 2 [place] 00 (two) Medical times Branch daily. Indication s: hasn't taken in a while due to financial issues traMADOL 50 2019-0 Yes [id number] 50mg Take 1 Univers mg tablet 6-17 tablet by ity o f 00:00: mouth [place] 00 every 6 Medical (six) Branch hours as needed for Pain (scale 7-10). traMADOL 50 2019-0 Yes [id number] 50mg Take 1 Univers mg tablet 6-17 tablet by ity o f 00:00: mouth [place] 00 every 6 Medical (six) Branch hours as needed for Pain (scale 7-10). traMADOL 50 2018-0 Yes [id number] 50mg Take 1 Univers mg tablet 6-17 tablet by ity o f 00:00: mouth [place] 00 every 6 Medical (six) Branch hours as needed for Pain (scale 7-10). traMADOL 50 2018-0 Yes [id number] 50mg Take 1 Univers mg tablet 6-17 tablet by ity o f 00:00: mouth [place] 00 every 6 Medical (six) Branch hours as needed for Pain (scale 7-10). traMADOL 50 2018-0 Yes [id number] 50mg Take 1 Univers mg tablet 6-17 tablet by ity o f 00:00: mouth [place] 00 every 6 Medical (six) Branch hours as needed for Pain (scale 7-10). traMADOL 50 2018-0 Yes [id number] 50mg Take 1 Univers mg tablet 6-17 tablet by ity o f 00:00: mouth [place] 00 every 6 Medical (six) Branch hours as needed for Pain (scale 7-10). traMADOL 50 2018-0 Yes [id number] 50mg Take 1 Univers mg tablet 6-17 tablet by ity o f 00:00: mouth [place] 00 every 6 Medical (six) Branch hours as needed for Pain (scale 7-10). metFORMIN 2019-0 Yes 500mg Take 500 Uni vers (GLUCOPHAGE 6-13 mg by ity of ) 500 mg 14:51: mouth 2 [place] tablet 59 (two) Medical times Branch daily with meals. Indication s: hasn't taken in a while due to financial issues metFORMIN 2019-0 Yes 500mg Take 500 Uni vers (GLUCOPHAGE 6-13 mg by ity of ) 500 mg 14:51: mouth 2 [place] tablet 59 (two) Medical times Branch daily with meals. Indication s: hasn't taken in a while due to financial issues metFORMIN 2019-0 Yes 500mg Take 500 Uni vers (GLUCOPHAGE 6-13 mg by ity of ) 500 mg 14:51: mouth 2 [place] tablet 59 (two) Medical times Branch daily with meals. Indication s: hasn't taken in a while due to financial issues metFORMIN 20190 Yes 500mg Take 500 Uni vers (GLUCOPHAGE 6-13 mg by ity of ) 500 mg 14:51: mouth 2 [place] tablet 59 (two) Medical times Branch daily with meals. Indication s: hasn't taken in a while due to financial issues metFORMIN 2019 Yes 500mg Take 500 Uni vers (GLUCOPHAGE 6-13 mg by ity of ) 500 mg 14:51: mouth 2 [place] tablet 59 (two) Medical times Branch daily with meals. Indication s: hasn't taken in a while due to financial issues metFORMIN Yes 500mg Take 500 Uni vers (GLUCOPHAGE 6-13 mg by ity of ) 500 mg 14:51: mouth 2 [place] tablet 59 (two) Medical times Branch daily with meals. Indication s: hasn't taken in a while due to financial issues metFORMIN 0 Yes 500mg Take 500 Uni vers (GLUCOPHAGE 6-13 mg by ity of ) 500 mg 14:51: mouth 2 [place] tablet 59 (two) Medical times Branch daily with meals. Indication s: hasn't taken in a while due to financial issues amoxicillin 2018-0 Yes [id number] 1{tbl} Take 1 Univers -clavulanat 6-13 tablet by ity of e 00:00: mouth 2 [place] (AUGMENTIN) 00 (two) Medical 875-125 mg times Branch per tablet daily. amoxicillin 2019-0 Yes [id number] 1{tbl} Take 1 Univers -clavulanat 6-13 tablet by ity of e 00:00: mouth 2 [place] (AUGMENTIN) 00 (two) Medical 875-125 mg times Branch per tablet daily. amoxicillin 2018-2020- No [id number] 1{tbl} Take 1 Univers -clavulanat 6-13 09-05 tablet by it y of e 00:00: 00:00 mouth 2 [place] (AUGMENTIN) 00 :00 (two) Medical 875-125 mg times Branch per tablet daily. aspirin 81 2016-0 Yes 81mg Take 1 Unive rs mg EC 7-06 tablet by ity of tablet 00:00: mouth [place] 00 daily. Medical Branch aspirin 81 2016-0 Yes 81mg Take 1 Unive rs mg EC 7-06 tablet by ity of tablet 00:00: mouth [place] 00 daily. Medical Branch aspirin 81 2016-0 Yes 81mg Take 1 Unive rs mg EC 7-06 tablet by ity of tablet 00:00: mouth [place] 00 daily. Medical Branch aspirin 81 2016-0 Yes 81mg Take 1 Unive rs mg EC 7-06 tablet by ity of tablet 00:00: mouth [place] 00 daily. Medical Branch aspirin 81 2016-0 Yes 81mg Take 1 Unive rs mg EC 7-06 tablet by ity of tablet 00:00: mouth [place] 00 daily. Medical Branch aspirin 81 2016-0 Yes 81mg Take 1 Unive rs mg EC 7-06 tablet by ity of tablet 00:00: mouth [place] 00 daily. Medical Branch aspirin 81 2016-0 Yes 81mg Take 1 Unive rs mg EC 7-06 tablet by ity of tablet 00:00: mouth [place] 00 daily. [facility] Branch Vital Signs Vital Name Observation Time Observation Value Comments Source HEIGHT 2020-09-19 09:05:00 154.9 cm WEIGHT 2020-09-19 09:05:00 75.615 kg Systolic blood 2021-06-20 20:23:00 148 mm[Hg] Univer sity of [facility] Diastolic blood 2021-06-20 20:23:00 66 mm[Hg] Unive rsity of [facility] Heart rate 2021-06-20 20:23:00 76 /min [facility] Body height 2021-06-20 20:23:00 154.9 cm [facility] Body weight 2021-06-20 20:23:00 74.844 kg [facility] BMI 2021-06-20 20:23:00 31.18 kg/m2 [facility] Systolic blood 2021-06-18 16:05:00 184 mm[Hg] Univer sity of [facility] Diastolic blood 2021-06-18 16:05:00 60 mm[Hg] Unive rsity of [facility] Heart rate 2021-06-18 15:10:00 77 /min Universi [facility] Body temperature 2021-06-18 15:10:00 37.44 [place] [facility] 2021-06-18 15:10:00 20 /min [facility] Body height 2021-06-18 15:10:00 154.9 cm Universi ty [facility] Body weight 2021-06-18 15:10:00 74.844 kg Universi [facility] BMI 2021-06-18 15:10:00 31.18 kg/m2 Universi [facility] Oxygen saturation in 2021-06-18 15:10:00 98 /min [facility] blood by [facility] Pulse oximetry Branch HEIGHT 2020-10-03 11:00:00 154.9 cm WEIGHT 2020-10-03 11:00:00 75.297 kg HEIGHT 2020-10-03 11:00:00 154.9 cm WEIGHT 2020-10-03 11:00:00 75.297 kg HEIGHT 2020-09-19 09:05:00 154.9 cm WEIGHT 2020-09-19 09:05:00 75.615 kg HEIGHT 2020-09-13 13:29:00 154.9 cm WEIGHT 2020-09-13 13:29:00 75.297 kg HEIGHT 2020-09-13 13:29:00 154.9 cm WEIGHT 2020-09-13 13:29:00 75.297 kg Systolic blood 2020-10-03 11:00:00 171 mm[Hg] [facility] Diastolic blood 2020-10-03 11:00:00 71 mm[Hg] [facility] S [facility] Heart rate 2020-10-03 11:00:00 78 /min [facility] Body temperature 2020-10-03 11:00:00 37 [place] [facility] Respiratory rate 2020-10-03 11:00:00 18 /min [facility] Body height 2020-10-03 11:00:00 154.9 cm [facility] Body weight 2020-10-03 11:00:00 75.297 kg [facility] BMI 2020-10-03 11:00:00 31.37 kg/m2 [facility] Oxygen saturation in 2020-10-03 11:00:00 98 /min room air [facility] Arterial blood by Medical Ce ntgwendolyn Pulse oximetry Procedures Procedure Date / Time Performing Clinician Source Performed REFERRAL- 2021-04-06 05:01:00 [facility] REQUEST/RESPONSE Name Medical Branch POCT-GLUCOSE METER 2020-09-20 11:36:00 Juan Gallardo [facility] POCT-GLUCOSE METER 2020-09-20 07:33:00 Monique [facility] CBC W/PLT COUNT & AUTO 2020-09-20 00:18:00 Mitali [facility] BASIC METABOLIC PANEL 2020-09-20 00:18:00 [facility] MAGNESIUM 2020-09-20 00:18:00 [place], [facility] ED PHOSPHORUS 2020-09-20 00:18:00 [place], [facility] ED CALCIUM, IONIZED 2020-09-20 00:18:00 [place], [facility] TISSUE EXAM 2020-09-19 14:54:00 Monique [facility] POCT-ACT 2020-09-19 14:15:00 Monique [facility] POCT-ACT 2020-09-19 14:03:00 Juan Gallardo [facility] ENDARTERECTOMY,CAROTID 2020-09-19 12:52:00 Monique [facility] PROTHROMBIN TIME/INR 2020-09-19 10:22:00 Mitali [facility] APTT 2020-09-19 10:22:00 Mitali [facility] POCT-GLUCOSE METER 2020-09-19 09:06:00 Juan Gallardo [facility] CBC W/PLT COUNT & AUTO 2020-09-13 14:52:00 Monique [facility] DIFFERENTIAL [facility] BASIC METABOLIC PANEL 2020-09-13 14:52:00 [facility]ardo [facility] PROTHROMBIN TIME/INR 2020-09-13 14:52:[address] [facility], MANUAL 2020-09-13 14:52:00 Juan Gallardo [facility] s [facility] ECG 12-LEAD 2020-09-13 14:37:40 Unknown, Hl7 Doctor [facility] Maria Del Rosario es [facility] Plan of Care Planned Activity Planned Date Details Comments Source Future Scheduled 2020-10-[address] [facility] - Test 00:00:00 (12+) [code = Medical Center DEPRESSION SCREENING (12+)] Future Scheduled 2020-10-[address] [facility] - Test 00:00:00 (12+) [code = [facility] DEPRESSION SCREENING (12+)] Future Scheduled 2020-06-[address] [facility] - Test 00:00:00 (#1) [code = [facility] INFLUENZA VACCINE (#1)] Future Scheduled 2020-06-[address] [facility] - Test 00:00:00 (#1) [code = [facility] INFLUENZA VACCINE (#1)] Future Scheduled 2019-10-15 [...] [facility] breast (procedure) [code = 503662941] Future Scheduled [address] [facility] 00:[facility]:00 malignant [facility] colon (procedure) [code = 702857323] Future Scheduled [address] [facility] Test 00:00:00 [facility] breast (procedure) [code = 161938855] Future Scheduled [address] [facility] Test 00:00:00 [facility] colon (procedure) [code = 083871198] Encounters Start End Encounter Admission Attending Care Care Encounter Source Date/Time Date/Time Type Type Clinicians Facility Department ID 2021-08-14 Emergency [facility] [id number] Univers 20:32:56 [facility] 2021 Inpatient [facility] Surgery [id number] [facility] 18:22:15 JUAN 2021-08-07 2021-08-07 Outpatient [facility]ML[facility] [id number] [facility] 2021-07-19 2021-07-19 Outpatient Thomas GARCIA [facility] [id number] Univers 14:30:00 14:30:00 CINTHIA [id number] [facility] 2021-06-26 2021-06-26 [facility] [id number] Univers 13:45:00 13:45:00 UTE [id number] [facility] 2021-06-26 2021-06-26 Outpatient R YOST, [facility] [id number] Univers 13:45:00 13:45:00 UTE [facility] 2021-06-20 2021-06-20 Office [email or web address] [id number] Univers 15:14:01 15:29:01 Visit Cinthia Duong [facility] [id number] it [place] of [place] 4.2.7.2.686 Lorenzo as Yuri?Blea [phone] Id jsoe shiple[address] Office [facility] 2021-06-20 2021-06-20 [facility] [id number] Univers 15:00:00 15:00:00 CINTHIA [id number] [facility] 2021-06-20 2021-06-20 Outpatient [facility] [id number] Univers 15:00:00 15:00:00 CINTHIA [facility] 2021-06-20 2021-06-20 Telephone [email or web address] [id number] Univers 00:00:00 00:00:00 Cinthia Duong [facility] [id number] [place] 4.2.7.2.686 Lorenzo as Yuri?Blea [phone] [address] 2021-06-19 2021-06-19 Telephone [email or web address] [id number] Univers 00:00:00 00:00:00 Ute [facility] 350.1.13.10 [place] 4.2.7.2.686 Lorenzo as Yuri?Blea [phone] Id jose [address] Office [facility] 2021-06-18 2021-06-18 Emergency [email or web address] [id number] Univers 10:12:00 11:17:00 Carol Ann Soriano 350.1.13.10 ity of [place] 4[place]2.7.2.686 [place] [phone] [address] 2021-04-26 2021-04-26 Letter ONEAL Barber [id number] Univers 00:00:00 00:00:00 (Out) Charlette GABRIEL 350.1.13.10 i ty of [facility] 42.7.2.686 Lorenzo as [phone] [facility] [address] 2021-04-06 2021-04-06 Orders ONEAL [id number] Univers 00:00:00 00:00:00 Only Unassigned, HARVEY 350.1.13.10 ity of [place] [id number] Lorenzo as [phone] [facility] [address] 2020-10-03 2020-10-04 Office [facility] [id number] 10:58:57 06:55:34 Visit [facility] 2020-10-03 2020-10-03 Outpatient CHIRAG GALLARDO [facility] [id number] SLE 00:00:00 00:00:00 [facility] 2020-09-19 2020-09-20 Hospital [facility] [id number] 08:52:00 16:45:00 Encounter [facility] 2020-09-19 2020-09-19 [facility] [id number] 13:06:00 15:11:00 Event Maribell Yepez [facility] 2020-09-19 2020-09-19 Surgery [facility] [id number] 11:00:00 14:00:00 [facility] 2020-09-16 2020-09-16 Abstract [facility] [id number] 00:00:00 00:00:00 [facility] 2020-09-13 2020-09-13 [facility] [id number] 14:23:27 14:53:27 Visit [facility] 2020-09-13 2020-09-13 Outpatient MONIQUE [facility] [id number] SLE 14:23:27 14:23:27 JUAN 2020-09-13 2020-09-13 [facility] [id number] 00:00:00 00:00:00 Only [facility] Results Test Description Test Time Test Comments Results Result Comments Source Tissue Exam 2020-09-23 18:50:00 Test Item Value Reference Range Interpretation Comme nts Case Report (test code = 104) Surgical Pathology Report Case: [id number] Authorizing Provider: Juan Gallardo, Collected: 09/19/2020 02:54 PM Ordering Location: [facility] Received: 09/19/2020 03:32 PM PERIOPERATIVE SERVICES Pathologist: Jarad Menchaca MD Specimen: Plaque, LEFT CAROTID ARTERY PLAQUE DIAGNOSIS (test code = 3220) o1pdgZSwKTQel1xyZWWcxCCuBaAhNhLiLtJkDy pc dWMxIHtccnRmMVxlcGljOTIwMFxhbnNpXHNwbHRw I1ZoaocoZMznSF6tXX4gcHredGXepVJlHJTbCgQn b5kaj069xNMoj1zpDONRnlguiBr6pBaeC49eh3A2 YrizM50qqNMpQLlbsFUxqlzkfoNwZMTUUJDCJZei QYJIZRHKEYTYZZxXQDUAGxTHWmBPIvYLBJ1CHTnm nELzXSWLAWSUWviCJEDDAEGNH9QQNGCLQ4UPNwQA MECRIXCjIHVpki93IFK7UxHip4J9OWH7PZSeAAEl s6mxHNGavICqNvSrTqKbIfAbDcqcvNRuTAOpCdCp j6qcn915oNGuo9bwUXQeAqV0oLTxDFVgtNVlO322 BXFtJWihk8dyk8DmUZTspJIdk3D9BCCBbratvNq5 mWdcX07yb1Z9QfmqI2pcMDYhUBVsW5FbVF8fVZLs Xkl2KBX7PZL1VTIxKKVjT4MhHF1eVSIdrOSkGWe2 i6oeaNbiAGZuCKS8i4clQRkayjQkWS4uuv3bvAu9 d2tfqoJeHWGgWLDxdBGITCWpF0GqdOylSd8eoRk2 qQfdCubnOEV8Hkd8TN2smo74rsc0fOthPITljvds EzA6YHfyUUToiblfGDp6HTuySHDriPZ0LMMhvRLy D0EvBMBbQE6vlop5LKZ2YXalPWUdYwM2TKZbsHBr QOVdwRtgHKdam129UVP0QsBtOF4aB5Lon2P3eD8k iBPaKDVrsKDoWrPcIAGlbs9wnEHtMLfcd0TuDMC4 ihI5fWTxjKBxERMeXhZ9QQmtTM3dio44KDKpOYP1 iv7kyXRdePuxcxFntJKyUUudM4RwTHOvh761LPBe A1YdLZKsg7Z4skFaIzItZCHhsDW3spH8FPRfEA3a ourmj7zeBOlrGWoyEATiptD0joG1CRPahYDwW6Tq kB7wSAEsFY4nnmiei8uiFCS1WNwjBYDaKMY3OeEa LEMde1Ksnws6FbWcb0AxwCTiSPzlB02xo811AQEc hhZtY2puaCVmsreriULfiypwUVrhhwX5SNUpYWez snifPSAcHLymC0rgKwAtWUJtpMjjHBsrq1QsWPWy MULeYpBcsQBdEIAtNte8IJCuyFUyEHFeScHwG7ld bgpgFzEEVPBej9poS0dgiYOYsPPqJ4LoULyelcNp DXqpOFszRKCoMUI7JK33DnakTOBbqa71 CPT Code(s) (test code = 3357) b8djlYTyLBWkuGZ3KrBzWDCgb8wwi8NokZUj cGFy JDjhoEMcelXeip87fTE8lK72YG4eZOZrQbZ5BXHc mqL3Exi9NFQmSWZwuOLfW098i6qxz7bjboXmrZB1 qUymWJDfMHEtUOrwONTiXnCpLTlhPKI6VHp3CiZm XHBhcn0= CLINICAL HISTORY (test code = 3356) f6btiPIsXFJkrXP6BtGyAUEsp1nlf6R sdHBncGFy QFhrsTFsxmXywp42dZY7oE37HE2lGXPxFxS0DTLq vaB9Dfi4HMRdEBWohGFkY385p5bhw1olqzAhePW5 vHkbNHJiIUXqQMtyQKHvHiOvYTYdn5NoDWirW90w g4amMaTuxUAstFNgNBZtyFviRSX3LV2vs8chFNRg cn0= SPECIMEN SOURCE (test code = 3377) q6xfvKEfOKOioIO9WyBaGLWpm1cpn4Kr dHBncGFy FPvzxAGmthIqce05tKB5fK18FG5qVPAsOvO7IISg roG4Syg9SCQtTRTduOEfM642t2bsa0iwqxJuxHA9 fVxwYXJkXHBsYWluXGZzMjAgUGxhcXVlIFxwYXJ9 GROSS DESCRIPTION (test code = 3366) x5ddvKBnANSzlJK3AzMaOHUnt1tes8 BsdHBncGFy EOfdgCVjllAzaf29vRG3wR27WT0gRSHtJmF9BXEu hxI2Gzt2QHEqVFZdzEHbY190l4vnq8pgyvYmfDI4 gSewKRVaVJJgSSxyXPXzOxMjAsXdLPq2JKJwDiWe m2bxsRQiCKtwSMT0cXLnIQVkWVJzTLCuMN61B5Iv xwRjNDliSELnBOPveD0cTG55hPTzelRduuHePaSx PBU1AMbvlJKlxKVwYABfxBeqRAKnkXMylSGanFOr lHRaMSusHUWlSe2oXMthDt6yUIUxLMuilzRrlNct kfGukgEhvDRmcDMvXwS6OIfuv6ukcQbafKLhBOFv YSXqARdxoEvkmQQyY0SmV2jzoNMxcJirxk9jKJnt BKYuLPRloHQnDNwyBYXfywzbaAi7FNVrU1Lsr58k FDD7iiPiUVNuPOsgSTM6UWgvt5ipyX5aj5vyecPi lRTrL1UwG7dhwNXrTWSeqjLpyj8zPQykCXIlHKWl vCKqLQitRBJ5Fb2mzOWoLHLjxnApdWYcLS44uXYc pBnvOj6hjM87oM4fHZYeY5HwY6wemNFttFvqejGf foXUEB1pBQsJB0WyNDpgHIJ1 MICROSCOPIC DESCRIPTION (test code = o2uauKSlQUCseVW0VgZuTIJjs0mad7 BsdHBncGFy 3371) FMvusILujnExat97pSK3aJ74KU8sKRIcWmE8XWVk ppE5Rvn3GGMjNYTciYIkB236w9szb8arckOevIE7 oPrfZGUiQIYjEUaoYCLvIlUuXTVoLa4jhGRzNVBo cn0= [facility] [id number] 18:50:00 Test Item Value Reference Range Interpretation Comments Case Report (test code Surgical Pathology = 104) Report Case: [id number] Authorizing Provider: Juan Gallardo, Collected: 09/19/2020 02:54 PM Ordering Location: [facility] Received: 09/19/2020 03:32 PM PERIOPERATIVE SERVICES Pathologist: Jarad Menchaca MD Specimen: Plaque, LEFT CAROTID ARTERY PLAQUE DIAGNOSIS (test code = b5axrXReOFGws2hpFKWtjRC 3220) uZzEwMzNcZnRuYmpcdWMxIH tccnRmMVxlcGljOTIwMFxhb xOeNFYjkVMtV1WyaxvaJUkf FW1rZI9hdHsbfSFynFZbMLX iSqAyf6evf454aAKmx1ohPZ IQyoaefIw1pXdpG30mt6E6U xgeT54rzNSnARkerIYoowkm czIwIEFSVEVSWSwgTEVGVCB DQVJPVElELCBFTkRBUlRFUk EKAG1NWFvamRRxOUNOIJWXY eaLXEFBYSWUZ4ABNCNUL8KK FhVVIMDFIPRfTQLwxc99DRC 3VdGlm6V2YOO0BWClPRCon4 lcZGVmbGFuZzEwMzNcZnRuY jdsfIJaRQCsKrLts4gkk884 dHHjd7zzYBPcJwI8jKBwLRC ojTJjQ641GZWgGMoeq4nsi3 WrPNHclAKny1K7OKLUbkpul Qg8fTanW11ij2M7OiqgR4ju SVWhBIDwT6WsMP9xYGSwGgu 4VZW0FLS7ANGrBEYqN5SdFX 9jDAKktYXmDVc2z5qvxMbuY CSkBCL7j0ioISspxcFvKZ9f lx3psYe3g4zhjdDqOJScCBE vjPTZSRYwF6OruPtoOx7wcG m2bThtJbtgQGA7Xub1OV6qa d09nvq9qUouWWDsxmykKsU4 WAzvIGGeowgxTOh3BRpiKJL ejZI3MBBocIXrF8IcWZBjTN 4nwzp3IYH6XLdeFFKdGsV3Q FZxjSBvFOZbpKaqXScci583 UFN3ZoZzFO4fT2Dvj6C4lF9 maXRcZGVmdGFiNzIwXGZvcm 3ssOBaAKfqr1QwFJE4jrL0d MVxhCFgRIAlIwT9DOvmNV3y sv04FQDzNUO7xz3caJXvlEq lwxKiyICgKMgdO7YbGAXfk3 40OBBdL7TkGVZma1D3bqOjM yWuFEViaGI9ywO7JMXeUN8w rnwpx5zbHYreEZgbUTQduyM 7czY6XCLczBDlS6XezE7jOF HyBG0xcluwh8eiUYM6EVbqM SVkVNU7HoNcGXFxc1Fgedw8 JoMna1AwuGRnHHrrH57ep79 3IMAsojMnI1ogvFWxhebmtG FkdwpjYPcwmaY4HBSqQIngh bosXMNrOPtwV1fiGcQbGAQp wUlgUVktq9JyHNDaPKXlDaV ksIAsYNXjKxu6GGWseNJyBN NhLiKtJ2vlmmpfTlVLCSWmg 0ulV7tdxVBSqJAqE6ChTGbq yhOsYNryZVmpEAAqZGB4BD6 6ZqddUVUwxt76 CPT Code(s) (test code w6vgkHMfWONaoWY1AhUiOFG = 3357) dc6lqy9YxnLJpyQNaEYfqjW QmqdHpkq25lTE0zB26ED2tS QPxSiH9DJTjzwE1Ofz4DXRl OFNehMIuK831z5ufu6uezaG hxSK1cZwfYKVgOEQkVTpvWH FyWsUoXXmkGPF2YFy1QmChH HBhcn0= CLINICAL HISTORY (test t2nsyBSqJADxmCM6UjKcAOB code = 3356) ql4con0AhlXSbuLArSWjdtN XlajKrgy36wRF8zL96IV3yG XCnXvP6PDTphpF7Mwx2YTOw URDpoZQpR255y5uha1mohyQ siLI9pWtfFMBjZFTfIDfqSW SlXmPrSFCod6BjEMvkF40mx 2lzOiAgbGVmdCBjYXJvdGlk IIU4SV0xm9hnXVVequ3= SPECIMEN SOURCE (test r7efiASoGXSevIB7KdLxVCK code = 3377) lb5wsx2GuoUOwjWWpFJzpvK PdroUpjq42gYV5tJ71DN0qB LYuFdE9AWKjwxW5Wdp7RIJl JGMrxWFnI834r4dnj0kanjT qnUM4qGmtUXSqSAAgKLjaYB ZzMjAgUGxhcXVlIFxwYXJ9 GROSS DESCRIPTION v0rbfEXvJKRzvWC8XuSpFXI (test code = 3366) aj5svw0YorQHbwDQzFSmxuV AmlyNosx86nKB8fZ82LM1eP PVvWpE1SWFpueI4Ojg8OFQz CRZbzRBrR617r0uyj8kjtiV uaLA6oQymOQTgFBVuJUurWK QzKaWnBnEkQMy4KVFnTlCht 4zexEBqMBpoSOZ2aVVeYGSr CGPdAFJpMN67L7ErwdRxVPk nONOhIUDjiW3zGH87dFIgxy AwhqHuRpTdGIC7NXbwzXYjc CBjYXJvdGlkIGFydGVyeSBw lPGytLDcOBdqUJGlJf8tUQp gTf7xKSWiGQupfnKzgNnlgt BcdiWizHFbrPJwMfY6LIjpx 3cgcGxhcXVlIHRoYXQgZGlz eMclaARcV3UhR0ozaOBxbHj ifw0wRIgkZZItOPWecATwGZ brIAHwblrdrFs4XCLwO8Kkj 68jFLP9eeHiLCBrYEoeZIB7 BJwdn0xbmZ9sn7puyfExiPW vS5JpE3fniCFsUGGsclDpve 4gVGhlIHNwZWNpbWVuIGlzI HT2De2arXErMPRxllNcfLQn OA40nYVcuVzhKw2yvO75hD6 rJMKhH3BfV6nxdJFcnLybzs WxdlSMLT2jUSsLF9TdXAcrZ XJ9 MICROSCOPIC q1tsdDMjDKKiwVW1AeMhGDD DESCRIPTION (test code sn8dcb2SepGJtqZFdCKsmpW = 3371) JdxaYtfu13hSJ9nX88PO5nQ GJsEpO9SXXimnC3Kqo2ZZGp UTPpgSEmM785n9oik1lymnL dbGA9pVroEHPxLFJtRIgbKV SyUsPxRSXdTv1xdOYgPBSoj n0= [facility] [id number] 18:50:00Surgical Pathology Report Case: [id number] Authorizing Provider: Juan Gallardo, Collected: 09/19/2020 02:54 PM OrderingLocation: [facility] Received: 09/19/2020 03:32 PM PERIOPERATIVE SERVICES Pathologist: Jarad Menchaca MD Specimen: Plaque, LEFT CAROTID ARTERY PLAQUE ARTERY, LEFT CAROTID, ENDARTERECTOMY:CALCIFIC ATHEROSCLEROTIC PLAQUE Signing Pathologist Direct Phone Line: [phone] signed by Jarad Menchaca MD on 09/23/2020 at 6:50 [id number]; [id number] diagnosis: left carotid stenosisPlaque Received fresh labeled with the patient's name, accession number and "plaque, left carotid artery plaque" is a 2.0 x 2.0 cm irregular fragment of yellow plaque that displays calcification. The specimen is serially sectioned to reveal a yellow homogeneous calcified center. The specimen is submitted in its entirety following decalcification in A1. JG/pl PerformedPOC- Glucose [id number] 11:48:00 Test Item Value Reference Range Interpretation Comments POC-Glucose Meter (test 208 mg/dL 70-110 H : TE STED AT [facility] code = 1538) [facility] [facility] 30: Orthopedic Brace Maker/Techni ciara ID = [id number] for BERT CORONADO Lab Interpretation (test Abnormal code = 60766-1) [facility]-Glucose [id number] 11:48:00 Test Item Value Reference Range Interpretation Comments POC-Glucose Meter (test 208 mg/dL 70-110 H : TE STED AT [facility] code = 1538) 6720 [facility], 770 30: Orthopedic Brace Maker/Techni ciara ID = [id number] for BERT CORONADO Lab Interpretation (test Abnormal code = 93980-3) [facility]-GLUCOSE [id number] 11:48:00 Test Item Value Reference Range Interpretation Comments POC-GLUCOSE METER 208 mg/dL 70-110 H : TESTED A T [facility] 6720 (BEAKER) (test code = [facility], 153) [address]991: Orthopedic Brace Maker/Techni ciara ID = [id number] for BERT ROUSSEAU POCT-GLUCOSE [id number] 08:17:00 Test Item Value Reference Range Interpretation Comments POC-GLUCOSE METER 183 mg/dL 70-110 H : TESTED A T [facility] 6720 (BEAKER) (test code = [facility], 1538) 78867: Orthopedic Brace Maker/Techni ciara ID = [id number] for BERT ROUSSEAU POC ACTIVATED CLOTTING [id number] 06:23:00 Test Item Value Reference Range Interpretation Comments Activated Clotting Time 241 sec : 74 -137 seconds, (test code = 441) Baseline: TESTED AT [address], 770 30: Orthopedic Brace Maker/Techni ciara ID = [id number] for CAST RO, NAT [facility] ACTIVATED CLOTTING [id number] 06:23:00 Test Item Value Reference Range Interpretation Comments Activated Clotting Time 241 sec : 74 -137 seconds, (test code = 441) Baseline: TESTED AT [address], 770 30: Orthopedic Brace Maker/Techni ciara ID = [id number] for CAST RO, NAT [id number] 06:23:00 Test Item Value Reference Range Interpretation Comments ACTIVATED CLOTTING TIME 241 sec : 74 -137 seconds, (BEAKER) (test code = Baseli ne: TESTED AT [facility]) [address], [address]70 30: Orthopedic Brace Maker/Techni ciara ID = [id number] for CA STRO, NAT [id number] 06:23:00 Test Item Value Reference Range Interpretation Comments ACTIVATED CLOTTING TIME 224 sec : 74 -137 seconds, (BEAKER) (test code = Deloris ne: TESTED AT 441) [facility] 6720 [facility], 770 30: Orthopedic Brace Maker/Techni ciara ID = [id number] for CA STRO, NAT CBC with platelet count + automated [id number] 01:08:00 Test Item Value Reference Range Interpretation Comments WBC (test code = 6690-2) 12.8 See_Comment H [A utomated message] The system [employer] generated this result transmitted ref erence range: 3.5 - 10 .5 K/L. The refe rence range was not u sed to interpret this result as normal/abnor mal. RBC (test code = 789-8) 3.64 See_Comment L [Au tomated message] The system [employer] generated this result transmitted ref erence range: 3.93 - 5 .22 M/L. The refe rence range was not u sed to interpret this result as normal/abnor mal. MCHC (test code = 786-4) 30.3 See_Comment L [A utomated message] The system [employer] generated this result transmitted ref erence range: [...] See_Comment [Aut omated message] 777-3) The system [employer] generated this result transmitted ref erence range: 150 - 45 0 K/CU MM. The referen ce range was not u sed to interpret this result as normal/abnor mal. MPV (test code = 10.5 fL 9.4-12.3 73036-4) nRBC (test code = 413) 0 See_Comment [Aut omated message] The system [employer] generated this result transmitted ref erence range: [...] H [Aut omated message] 670) The system [employer] generated this result transmitted ref erence range: 1.56 - 6 .13 K/L. The refe rence range was not u sed to interpret this result as normal/abnor mal. # Lymphs (test code = 1.06 See_Comment L [Auto mated message] 414) The system [employer] generated this result transmitted ref erence range: 1.18 - 3 .74 K/L. The refe rence range was not u sed to interpret this result as normal/abnor mal. # Monos (test code = 0.20 See_Comment L [Autom ated message] 415) The system [employer] generated this result transmitted ref erence range: 0.24 - 0 .36 K/L. The refe rence range was not u sed to interpret this result as normal/abnor mal. # Eos (test code = 416) 0.00 See_Comment L [Au tomated message] The system [employer] generated this result transmitted ref erence range: 0.04 - 0 .36 K/L. The refe rence range was not u sed to interpret this result as normal/abnor mal. # Baso (test code = 417) 0.03 See_Comment [A utomated message] The system [employer] generated this result transmitted ref erence range: 0.01 - 0 .08 K/L. The refe rence range was not u sed to interpret this result as normal/abnor mal. Immature 1 % 0-1 Granulocytes-Relative (test code = 2801) Lab Interpretation (test Abnormal code = 92122-3) [facility] with platelet count + automated [id number] 01:08:00 Test Item Value Reference Range Interpretation Comments WBC (test code = 6690-2) 12.8 See_Comment H [A utomated message] The system [employer] generated this result transmitted ref erence range: 3.5 - 10 .5 K/L. The refe rence range was not u sed to interpret this result as normal/abnor mal. RBC (test code = 789-8) 3.64 See_Comment L [Au tomated message] The system [employer] generated this result transmitted ref erence range: 3.93 - 5 .22 M/L. The refe rence range was not u sed to interpret this result as normal/abnor mal. MCHC (test code = 786-4) 30.3 See_Comment L [A utomated message] The system [employer] generated this result transmitted ref erence range: [...] See_Comment [Aut omated message] 777-3) The system [employer] generated this result transmitted ref erence range: 150 - 45 0 K/CU MM. The referen ce range was not u sed to interpret this result as normal/abnor mal. MPV (test code = 10.5 fL 9.4-12.3 86057-9) nRBC (test code = 413) 0 See_Comment [Aut omated message] The system [employer] generated this result transmitted ref erence range: [...] H [Aut omated message] 670) The system [employer] generated this result transmitted ref erence range: 1.56 - 6 .13 K/L. The refe rence range was not u sed to interpret this result as normal/abnor mal. # Lymphs (test code = 1.06 See_Comment L [Auto mated message] 414) The system [employer] generated this result transmitted ref erence range: 1.18 - 3 .74 K/L. The refe rence range was not u sed to interpret this result as normal/abnor mal. # Monos (test code = 0.20 See_Comment L [Autom ated message] 415) The system [employer] generated this result transmitted ref erence range: 0.24 - 0 .36 K/L. The refe rence range was not u sed to interpret this result as normal/abnor mal. # Eos (test code = 416) 0.00 See_Comment L [Au tomated message] The system [employer] generated this result transmitted ref erence range: 0.04 - 0 .36 K/L. The refe rence range was not u sed to interpret this result as normal/abnor mal. # Baso (test code = 417) 0.03 See_Comment [A utomated message] The system [employer] generated this result transmitted ref erence range: 0.01 - 0 .08 K/L. The refe rence range was not u sed to interpret this result as normal/abnor mal. Immature 1 % 0-1 Granulocytes-Relative (test code = 2801) Lab Interpretation (test Abnormal code = 25629-9) [facility] W/PLT COUNT & AUTO [id number] 01:08:00 Test Item Value Reference Range Interpretation [...] (BEAKER) (test code = 2801) Basic Metabolic [id number] 00:56:00 Test Item Value Reference Range Interpretation Comments Sodium (test code = 134 meq/L 136-145 L 2951-2) Potassium (test code = 3.9 meq/L 3.5-5.1 2823-3) Chloride (test code = 104 meq/L 98-107 2074-0) CO2 (test code = 23 meq/L 2028-06) BUN (test code = 10 mg/dL 05-03 3094-0) Creatinine (test code 0.76 mg/dL 0.57-1.25 = 2160-0) Glucose (test code = 332 mg/dL 70-105 H 2345-7) Calcium (test code = 8.2 mg/dL 8.4-10.2 L 76254-8) EGFR (test code = 75 mL/min/1.73 [place] [address]-1) NOT ACCURATE CREATININE CLEARANCE IN PREDICTING GLOMERULAR FILTRATION RATE . ESTIMATED GFR I S NOT APPLICABLE FOR DIALYSIS PATIENTS. GABRIELA (test code = GABRIELA) [employer] ID - PIAYA L Lab Interpretation Abnormal (test code = 11292-8) [facility] Test Item Value Reference Range Interpretation Comments Magnesium (test code = 1.7 mg/dL 1.6-2.6 84309-9) GABRIELA (test code = GABRIELA) [employer] ID - PIAYA L Lab Interpretation (test Normal code = 66451-3) [facility] Test Item Value Reference Range Interpretation Comments Phosphorus (test code = 3.7 mg/dL 2.3-4.7 2777-1) GABRIELA (test code = GABRIELA) [employer] ID - PIAYA L Lab Interpretation (test Normal code = 99932-4) [facility] [id number] 00:56:00 Test Item Value Reference Range Interpretation Comments Sodium (test code = 134 meq/L 136-145 L 2951-2) Potassium (test code = 3.9 meq/L 3.5-5.1 3-3) Chloride (test code = 104 meq/L 98-107 2074-0) CO2 (test code = 23 meq/L 2028-06) BUN (test code = 10 mg/dL 05-03 3094-0) Creatinine (test code 0.76 mg/dL 0.57-1.25 = 2160-0) Glucose (test code = 332 mg/dL 70-105 H 2345-7) Calcium (test code = 8.2 mg/dL 8.4-10.2 L 18297-3) EGFR (test code = 75 mL/min/1.73 [place] [address]-6) NOT ACCURATE CREATININE CLEARANCE IN PREDICTING GLOMERULAR FILTRATION RATE . ESTIMATED GFR I S NOT APPLICABLE FOR DIALYSIS PATIENTS. GABRIELA (test code = GABRIELA) Orthopedic Brace Maker ID - PIAYA L Lab Interpretation Abnormal (test code = 96473-7) [facility]00 Test Item Value Reference Range Interpretation Comments Magnesium (test code = 1.7 mg/dL 1.6-2.6 11142-9) GABRIELA (test code = GABRIELA) Orthopedic Brace Maker ID - PIAYA L Lab Interpretation (test Normal code = 26724-4) [facility] 00:56:00 Test Item Value Reference Range Interpretation Comments Phosphorus (test code = 3.7 mg/dL 2.3-4.7 2777-1) GABRIELA (test code = GABRIELA) Orthopedic Brace Maker ID - PIAYA L Lab Interpretation (test Normal code = 59664-8) [facility] [id number] 00:56:00 Test Item Value Reference Range Interpretation [...] S NOT APPLICABLE FOR DIALYSIS PATIEN TS. Orthopedic Brace Maker ID - FARHAD [id number] 00:56:00 Test Item Value Reference Range Interpretation Comments MAGNESIUM (BEAKER) (test code = 1.7 mg/dL 1.6-2.6 627) Orthopedic Brace Maker ID - FARHAD [id number] 00:56:00 Test Item Value Reference Range Interpretation Comments PHOSPHORUS (BEAKER) (test code = 3.7 mg/dL 2.3-4.7 604) Orthopedic Brace Maker ID - FARHAD LCalcium, [id number] 00:31:00 Test Item Value Reference Range Interpretation Comments Calcium, Ion (test code = 1993-) 1.18 mmol/L 1.12-1.27 pH, Blood (test code = 61640-4) 7.39 [facility], [id number] 00:31:00 Test Item Value Reference Range Interpretation Comments Calcium, Ion (test code = 1993-) 1.18 mmol/L 1.12-1.27 pH, Blood (test code = 22913-0) 7.39 [facility]CALCI[facility], [id number] 00:31:00 Test Item Value Reference Range Interpretation Comments CALCIUM IONIZED (BEAKER) (test 1.18 mmol/L 1.12-1.27 code = 698) PH, BLOOD (BEAKER) (test code = 7.39 1810) [id number] 10:46:00 Test Item Value Reference Range Interpretation Comments PTT (test code = 45036-1) 27.9 See_Comment [ Automated message] The system Real Time Tomography generated this result transmitted ref erence range: 22.5 - 3 6.0 seconds. The re ference range was not u sed to interpret this result as normal/abnor mal. Lab Interpretation (test Normal code = 04112-7) [facility]PTT[facility] 10:46:00 Test Item Value Reference Range Interpretation Comments PTT (test code = 97453-0) 27.9 See_Comment [ Automated message] The system Real Time Tomography generated this result transmitted ref erence range: 22.5 - 3 6.0 seconds. The re ference range was not u sed to interpret this result as normal/abnor mal. Lab Interpretation (test Normal code = 95816-7) [facility]APTT[facility] 10:46:00 Test Item Value Reference Range Interpretation Comments PARTIAL THROMBOPLASTIN TIME 27.9 seconds 22.5-36.0 (BEAKER) (test code = 760) Prothrombin time/[id number] 10:45:00 Test Item Value Reference Interpretation Comments [...] valves. Lab Interpretation Normal (test code = 36185-3) [facility] HospitalProthrombin time/[id number] 10:45:00 Test Item Value Reference Interpretation Comments [...] valves. Lab Interpretation Normal (test code = 76703-2) [facility] HospitalPROTHROMBIN TIME/[id number] 10:45:00 Test Item Value Reference Range Interpretation [...] is2.5-3.5 for patients wiht mechanical heart valves.POCT-GLUCOSE [id number] 09:19:00 Test Item Value Reference Range Interpretation Comments POC-GLUCOSE METER 187 mg/dL 70-110 H : TESTED A T [facility] 6720 (YECENIA) (test code = ERENDIRA Guzman [place], 1538) [address]: Orthopedic Brace Maker/Techni ciara ID = [id number] for Jojo Rivers ECG 12 [id number] 12:51:19Interface, External Ris In - 09/14/2020 12:51 PM CSTVentricular Rate 65 BPMAtrial Rate 65 BPMP-R Interval 154 msQRS Duration 78 msQ-T Interval 442 msQTC Calculation(Bazett) 459 msP [place] 5 degreesR Axis77 degreesT [place] 66 degreesNormal sinus rhythmNonspecific T wave abnormalityProlonged QTWhen compared with ECG of 02-AUG-2019 06:01,Premature ventricular complexes are no longer PresentConfirmed by Daksha NICHOLE BASANT ([id number]) on 09/14/2020 12:51:17 [facility] 2020-09-14 12:51:19Interface, External Ris In - 09/14/2020 12:51 PM CSTVentricular Rate 65 BPMAtrial Rate 65 BPMP-R Interval 154 msQRS Duration 78 msQ-T Interval 442 msQTC Calculation(Bazett) 459 msP [place] 5 degreesR Axis77 degreesT [place] 66 degreesNormal sinus rhythmNonspecific T wave abnormalityProlonged QTWhen compared with ECG of 02-AUG-2019 06:01,Premature ventricular complexes are no longer PresentConfirmed by Daksha NICHLOE BASANT ([id number]) on 09/14/2020 12:51:17 [facility], manual 2020-09-13 16:42:00 Test Item Value Reference Range Interpretation Comments ABO Grouping (test code = 2588) A Rh Factor (test code = 2589) POS [facility], [id number] 16:42:00 Test Item Value Reference Range Interpretation Comments ABO Grouping (test code = 2588) A Rh Factor (test code = 2589) POS [facility]Type [facility] screen, [id number] 16:36:00 Test Item Value Reference Range Interpretation Comments Ab Scrn (test code = 890-4) NEGATIVE echo2 [facility] HospitalType and screen, [id number] 16:36:00 Test Item Value Reference Range Interpretation Comments Ab Scrn (test code = 890-4) NEGATIVE echo2 [facility]BAS[facility] [id number] 15:32:00 Test Item Value Reference Range Interpretation [...] S NOT APPLICABLE FOR DIALYSIS PATIEN TS. Orthopedic Brace Maker ID - ADMINPROTHROMBIN TIME/[id number] 15:29:00 Test Item Value Reference Range Interpretation [...] mechanical heart valves.CBC W/PLT COUNT & AUTO [id number] 15:17:00 Test Item Value Reference Range Interpretation [...] (BEAKER) (test code = 2801) BASIC METABOLIC [id number] 06:24:00 Test Item Value Reference Range Interpretation [...] 0-0 (BEAKER) (test code = 413) POCT-GLUCOSE [id number] 21:22:00 Test Item Value Reference Range Interpretation Comments POC-GLUCOSE METER 138 mg/dL 70-110 H TESTED AT [place] [address] (BEAKER) (test code = ERENDIRA [place] 1538) [address] POCT-GLUCOSE [id number] 17:38:00 Test Item Value Reference Range Interpretation Comments POC-GLUCOSE METER 131 mg/dL 70-110 H TESTED AT [place] [id number] [facility] (test code = ERENDIRA Guzman [place] 1538) [address] BASIC METABOLIC [id number] 06:07:00 Test Item Value Reference Range Interpretation [...] 1092) DATA TO CALCULA TE ESTIMATED GFR. [id number] 06:04:00 Test Item Value Reference Range Interpretation [...] H (BEAKER) (test code = 413) POCT-GLUCOSE [id number] 23:10:00 Test Item Value Reference Range Interpretation Comments POC-GLUCOSE METER 127 mg/dL 70-[address] [facility] 6720 (BEAKER) (test code = ERENDIRA [place] 1538) [address] POCT-GLUCOSE [id number] 12:36:00 Test Item Value Reference Range Interpretation Comments POC-GLUCOSE METER 157 mg/dL 70-[address] [facility] 6720 (BEAKER) (test code = ERENDIRA [place] 1538) [address] CBC (HEMOGRAM ONLY)2019-08-02 06:03:00 Test Item Value [...] (BEAKER) (test code = 413) BASIC METABOLIC [id number] 05:47:00 Test Item Value Reference Range Interpretation [...] 1092) DATA TO CALCULA TE ESTIMATED GFR. [id number] 05:46:00 Test Item Value Reference Range Interpretation Comments PHOSPHORUS (BEAKER) (test code = 2.5 mg/dL 2.3-4.7 604) [id number] 05:46:00 Test Item Value Reference Range Interpretation Comments MAGNESIUM (BEAKER) (test code = 2.1 mg/dL 1.6-2.6 627) POCT-GLUCOSE [id number] 20:47:00 Test Item Value Reference Range Interpretation Comments POC-GLUCOSE METER 164 mg/dL 70-110 H TESTED AT [place] [address] ([facility] (test code = [facility] 1538) [address] POCT-GLUCOSE [id number] 17:38:00 Test Item Value Reference Range Interpretation Comments POC-GLUCOSE METER 194 mg/dL 70-110 H TESTED AT [place] [address] ([facility] (test code = [facility] 1538) [address] POCT-GLUCOSE [id number] 07:51:00 Test Item Value Reference Range Interpretation Comments POC-GLUCOSE METER 157 mg/dL 70-110 H TESTED AT [place] [address] (BEAKER) (test code = [facility] 1538) [address] HEMOGLOBIN [id number] 07:51:00 Test Item Value Reference Range Interpretation Comments HEMOGLOBIN A1C (BEAKER) (test code = 8.6 % 4.3-6.1 H 368) BASIC METABOLIC [id number] 06:11:00 Test Item Value Reference Range Interpretation [...] 1092) DATA TO CALCULA TE ESTIMATED GFR. [id number] 06:10:00 Test Item Value Reference Range Interpretation Comments PHOSPHORUS (BEAKER) (test code = 1.9 mg/dL 2.3-4.7 L 604) [id number] 06:10:00 Test Item Value Reference Range Interpretation [...] 0-0 (BEAKER) (test code = 413) POCT-GLUCOSE [id number] 22:07:00 Test Item Value Reference Range Interpretation Comments POC-GLUCOSE METER 175 mg/dL 70-110 H TESTED AT [place] [address] ([facility]) (test code = [facility] 1538) [address] POCT-GLUCOSE [id number] 18:30:00 Test Item Value Reference Range Interpretation Comments POC-GLUCOSE METER 225 mg/dL 70-110 H TESTED AT [place] [address] ([facility]) (test code = [facility] 1538) [address] POCT-GLUCOSE [id number] 12:17:00 Test Item Value Reference Range Interpretation Comments POC-GLUCOSE METER 170 mg/dL 70-110 H TESTED AT [place] [address] ([facility]) (test code = [facility] 1538) [address] POCT-GLUCOSE [id number] 08:20:00 Test Item Value Reference Range Interpretation Comments POC-GLUCOSE METER 161 mg/dL 70-110 H TESTED AT [place] [address] ([facility]) (test code = [facility] 1538) [address] BASIC METABOLIC [id number] 08:18:00 Test Item Value Reference Range Interpretation [...] 1092) DATA TO CALCULA TE ESTIMATED GFR. [id number] 08:15:00 Test Item Value Reference Range Interpretation Comments MAGNESIUM (BEAKER) 1.9 mg/dL 1.6-2.6 Specimen slightly (test code = 627) hemolyzed [id number] 08:15:00 Test Item Value Reference Range Interpretation Comments PHOSPHORUS (BEAKER) 2.3 mg/dL 2.3-4.7 Specimen slightly (test code = 604) hemolyzed RAD, CHEST, 1 VIEW, NON [id number] 07:56:00Reason for exam:->post-op cardiac surgeryShould this be [...] MDReport Verified Date/Time: 07/31/2019 07:56:15 Reading Location: [facility] Radiology Reading Room [id number] 07:25:00 Test Item Value Reference Range Interpretation [...] 0-0 (BEAKER) (test code = 413) POCT-GLUCOSE [id number] 21:32:00 Test Item Value Reference Range Interpretation Comments POC-GLUCOSE METER 168 mg/dL 70-110 H TESTED AT [place] [address] ([facility]) (test code = ERENDIRA Guzman [facility] 1538) [address] POCT-GLUCOSE [id number] 17:55:00 Test Item Value Reference Range Interpretation Comments POC-GLUCOSE METER 172 mg/dL 70-110 H TESTED AT [place] [address] ([facility]) (test code = ERENDIRA Guzman [facility] 1538) [address] POCT-GLUCOSE [id number] 15:34:00 Test Item Value Reference Range Interpretation Comments POC-GLUCOSE METER 152 mg/dL 70-110 H TESTED AT [place] [address] ([facility]) (test code = ERENDIRA Guzman [facility] 1538) [address] POCT-GLUCOSE [id number] 12:52:00 Test Item Value Reference Range Interpretation Comments POC-GLUCOSE METER 222 mg/dL 70-110 H TESTED AT [place] [address] (BEAKER) (test code = ERENDIRA Guzman [facility] 1538) [address] POCT-GLUCOSE [id number] 07:19:00 Test Item Value Reference Range Interpretation Comments POC-GLUCOSE METER 185 mg/dL 70-110 H TESTED AT [place] [address] (BEAKER) (test code = ERENDIRA Guzman [facility] 1538) [address] [id number] 06:16:00 Test Item Value Reference Range Interpretation Comments ACTIVATED CLOTTING TIME 109 sec Refe rence Range: (BEAKER) (test code = 74-137 seconds, 441) Baseline/TESTED AT [address] [address] [id number] 06:16:00 Test Item Value Reference Range Interpretation Comments ACTIVATED CLOTTING TIME 543 sec Refe rence Range: (BEAKER) (test code = 74-137 seconds, 441) Baseline/TESTED AT [address] [address] [id number] 06:16:00 Test Item Value Reference Range Interpretation Comments ACTIVATED CLOTTING TIME 510 sec Refe rence Range: (BEAKER) (test code = 74-137 seconds, 441) Baseline/TESTED AT [address] [address] BASIC METABOLIC [id number] 06:04:00 Test Item Value Reference Range Interpretation [...] 1092) DATA TO CALCULA TE ESTIMATED GFR. [id number] 06:02:00 Test Item Value Reference Range Interpretation Comments PHOSPHORUS (BEAKER) (test code = 3.7 mg/dL 2.3-4.7 604) [id number] 06:02:00 Test Item Value Reference Range Interpretation Comments MAGNESIUM (BEAKER) (test code = 2.0 mg/dL 1.6-2.6 627) PT/[id number] 05:57:00 Test Item Value Reference Range Interpretation [...] is2.5-3.5 for patients wiht mechanical heart valves.PROTHROMBIN TIME/[id number] 05:56:00 Test Item Value Reference Range Interpretation [...] is2.5-3.5 for patients wiht mechanical heart valves.CALCIUM, [id number] 05:55:00 Test Item Value Reference Range Interpretation Comments CALCIUM IONIZED (BEAKER) (test 1.17 mmol/L 1.12-1.27 code = 698) PH, BLOOD (BEAKER) (test code = 7.38 1810) CBC W/PLT COUNT & AUTO [id number] 05:55:00 Test Item Value Reference Range Interpretation [...] (BEAKER) (test code = 2801) OXYGEN SATURATION, [id number] 05:49:00 Test Item Value Reference Range Interpretation Comments O2 SATURATION (MEASURED) (BEAKER) 77.2 % (test code = 1455) RAD, CHEST, 1 VIEW, NON [id number] 05:35:00Reason for exam:->post-op cardiac surgeryShould this be performed at the bedside?->YesFINAL REPORT RAD, CHEST, 1 VIEW, NON DEPT INDICATION: post-op cardiac surgeryCOMPARISON: Prior day's exam FINDINGS: Portable frontal view of the chest. IMPRESSION: Support Lines: Interval extubation. Otherwise unchanged support apparatus. Lungs and pleura: Unchanged airspaceopacities. No pneumothorax.Heart and mediastinum: Stable contours. Stable surgical changes.Additional findings: None. Signed: Hortencia Brand Verified Date/Time: 07/30/2019 05:35:16 [id number] 18:41:00 Test Item Value Reference Range Interpretation Comments POTASSIUM (BEAKER) (test code = 4.2 meq/L 3.5-5.1 379) PRN - repeat potassium levels every 1 hour until glucose level is less than 450 mg/dLPOCT-GLUCOSE [id number] 18:14:00 Test Item Value Reference Range Interpretation Comments POC-GLUCOSE METER 175 mg/dL 70-[address] [facility] 6720 (BEAKER) (test code = ERENDIRA [place] 1538) [address] BLOOD GAS, [id number] 16:57:00 Test Item Value Reference Range Interpretation [...] (test code = 1819) 40.0 % HEMOGLOBIN [id number] 16:17:00 Test Item Value Reference Range Interpretation Comments HEMOGLOBIN A1C (BEAKER) (test code = 9.5 % 4.3-6.1 H 368) PLATELET AGGREGATION: FUNCTION [id number] 15:15:00 Test Item Value Reference Range Interpretation Comments [id number] Giovanni Tee M.D. ([facility] (test code = (electonic signature) 7623) PLATELET COUNT AGG 273 K/CU MM 150-450 [...] be falsely low with platelet counts<75,000/cu mm.POCT-GLUCOSE [id number] 15:07:00 Test Item Value Reference Range Interpretation Comments POC-GLUCOSE METER 125 mg/dL 70-110 H TESTED AT [place] [address] ([facility]) (test code = [facility] 1538) [address] POCT-GLUCOSE [id number] 14:26:00 Test Item Value Reference Range Interpretation Comments POC-GLUCOSE METER 85 mg/dL 70-110 TESTED AT [place] [address] ([facility]) (test code = [facility] [address] 1538) POCT-GLUCOSE [id number] 14:14:00 Test Item Value Reference Range Interpretation Comments POC-GLUCOSE METER 88 mg/dL 70-[address] [facility] 6720 ([facility]) (test code = [facility] [address] 1538) RAD, CHEST, 1 VIEW, NON [id number] 13:11:00Reason for exam:->Status post CV Surgery post [...] no evidence of postoperative complication. Signed: Abdelrahman Akbar MDReport VerifiedDate/Time: 07/29/2019 13:11:13 Reading Location: [facility] Reading Room POCT-GLUCOSE METER 2019-07-29 13:00:00 Test Item Value Reference Range Interpretation Comments POC-GLUCOSE METER 132 mg/dL 70-[address] [facility] 67[address] ([facility]) (test code = ERENDIRA Guzman [facility] 1538) [address] BASIC METABOLIC [id number] 12:28:00 Test Item Value Reference Range Interpretation [...] 1092) DATA TO CALCULA TE ESTIMATED GFR. [id number] 12:27:00 Test Item Value Reference Range Interpretation Comments PHOSPHORUS (BEAKER) (test code = 2.3 mg/dL 2.3-4.7 604) [id number] 12:27:00 Test Item Value Reference Range Interpretation Comments MAGNESIUM (BEAKER) (test code = 2.6 mg/dL 1.6-2.6 627) [id number] 12:26:00 Test Item Value Reference Range Interpretation Comments PARTIAL THROMBOPLASTIN TIME 27.4 seconds 22.5-36.0 (BEAKER) (test code = 760) PROTHROMBIN TIME/[id number] 12:25:00 Test Item Value Reference Range Interpretation [...] for patients wiht mechanical heart valves.LACTIC ACID, [id number] 12:21:00 Test Item Value Reference Range Interpretation Comments LACTATE BLOOD ARTERIAL (2) 1.2 mmol/L 0.5-2.2 (BEAKER) (test code = 2874) CBC W/PLT COUNT & AUTO [id number] 12:08:00 Test Item Value Reference Range Interpretation [...] PERCENT (BEAKER) (test code = 2801) CALCIUM, [id number] 12:04:00 Test Item Value Reference Range Interpretation Comments CALCIUM IONIZED (BEAKER) (test 1.15 mmol/L 1.12-1.27 code = 698) PH, BLOOD (BEAKER) (test code = 7.44 1810) BLOOD GAS, [id number] 12:03:00 Test Item Value Reference Range Interpretation [...] code = 1819) 60.0 % OXYGEN SATURATION, [id number] 12:00:00 Test Item Value Reference Range Interpretation Comments O2 SATURATION (MEASURED) (BEAKER) 66.6 % (test code = 1455) For occult [id number] 11:53:00 Test Item Value Reference Range Interpretation Comments PHOSPHORUS (BEAKER) (test code = 2.9 mg/dL 2.3-4.7 604) CALCIUM, [id number] 10:32:00 Test Item Value Reference Range Interpretation Comments CALCIUM IONIZED (BEAKER) (test 1.03 mmol/L 1.12-1.27 L code = 698) PH, BLOOD (BEAKER) (test code = 7.33 1810) BLOOD GAS, [id number] 10:31:00 Test Item Value Reference Range Interpretation [...] code = 1819) 100.0 % SODIUM NA-STAT [id number] 10:31:00 Test Item Value Reference Range Interpretation Comments SODIUM (BEAKER) (test code = 381) 133 meq/L 135-148 L GLUCOSE-STAT [id number] 10:31:00 Test Item Value Reference Range Interpretation Comments GLUCOSE RANDOM (BEAKER) (test code 226 mg/dL 70-110 H = 652) HGB/HCT (H&H) - STAT [id number] 10:31:00 Test Item Value Reference Range Interpretation Comments HEMOGLOBIN (BEAKER) (test code = 8.0 g/dL 12.0-15.0 L 410) HEMATOCRIT (BEAKER) (test code = 24.0 % 36.0-45.0 L 411) POTASSIUM-STAT [id number] 10:30:00 Test Item Value Reference Range Interpretation Comments POTASSIUM (BEAKER) (test code = 4.2 meq/L 3.6-5.5 379) BLOOD GAS, [id number] 10:05:00 Test Item Value Reference Range Interpretation [...] code = 1819) 80.0 % SODIUM NA-STAT [id number] 10:05:00 Test Item Value Reference Range Interpretation Comments SODIUM (BEAKER) (test code = 381) 127 meq/L 135-148 L POTASSIUM-STAT [id number] 10:05:00 Test Item Value Reference Range Interpretation Comments POTASSIUM (BEAKER) (test code = 5.9 meq/L 3.6-5.5 H 379) GLUCOSE-STAT [id number] 10:05:00 Test Item Value Reference Range Interpretation Comments GLUCOSE RANDOM (BEAKER) (test code 241 mg/dL 70-110 H = 652) HGB/HCT (H&H) - STAT [id number] 10:05:00 Test Item Value Reference Range Interpretation Comments HEMOGLOBIN (BEAKER) (test code = 8.0 g/dL 12.0-15.0 L 410) HEMATOCRIT (BEAKER) (test code = 24.0 % 36.0-45.0 L 411) BLOOD GAS, [id number] 09:51:00 Test Item Value Reference Range Interpretation [...] code = 1819) 80.0 % SODIUM NA-STAT [id number] 09:51:00 Test Item Value Reference Range Interpretation Comments SODIUM (BEAKER) (test code = 381) 130 meq/L 135-148 L GLUCOSE-STAT [id number] 09:51:00 Test Item Value Reference Range Interpretation Comments GLUCOSE RANDOM (BEAKER) (test code 249 mg/dL 70-110 H = 652) HGB/HCT (H&H) - STAT [id number] 09:51:00 Test Item Value Reference Range Interpretation Comments HEMOGLOBIN (BEAKER) (test code = 8.1 g/dL 12.0-15.0 L 410) HEMATOCRIT (BEAKER) (test code = 24.0 % 36.0-45.0 L 411) POTASSIUM-STAT [id number] 09:50:00 Test Item Value Reference Range Interpretation Comments POTASSIUM (BEAKER) (test code = 5.4 meq/L 3.6-5.5 379) BLOOD GAS, [id number] 09:23:00 Test Item Value Reference Range Interpretation [...] code = 1819) 100.0 % SODIUM NA-STAT [id number] 09:23:00 Test Item Value Reference Range Interpretation Comments SODIUM (BEAKER) (test code = 381) 132 meq/L 135-148 L GLUCOSE-STAT [id number] 09:23:00 Test Item Value Reference Range Interpretation Comments GLUCOSE RANDOM (BEAKER) (test code 164 mg/dL 70-110 H = 652) CALCIUM, [id number] 09:23:00 Test Item Value Reference Range Interpretation Comments CALCIUM IONIZED (BEAKER) (test 1.05 mmol/L 1.12-1.27 L code = 698) PH, BLOOD (BEAKER) (test code = 7.44 1810) POTASSIUM-STAT [id number] 09:22:00 Test Item Value Reference Range Interpretation Comments POTASSIUM (BEAKER) (test code = 4.0 meq/L 3.6-5.5 379) HGB/HCT (H&H) - STAT [id number] 09:22:00 Test Item Value Reference Range Interpretation Comments HEMOGLOBIN (BEAKER) (test code = 12.2 g/dL 12.0-15.0 410) HEMATOCRIT (BEAKER) (test code = 36.0 % 36.0-45.0 411) RAD, CHEST, 1 VIEW, NON [id number] 07:12:00Reason for exam:->preopShould this be performed at the bedside?->YesFINAL REPORT INDICATION: preop COMPARISON: None TECHNIQUE: Single frontal view of the chest. FINDINGS: Lungs and pleura: Clear lungs. No effusion.Heart and mediastinum: Normal heart size. Unremarkable mediastinal contours.Osseous structures: No acute abnormality.Other: None. IMPRESSION: No acute intrathoracic abnormality. Signed: Deirdre De Jesus MDReport Verified Date/Time: 07/29/2019 07:12:45 [id number] 07:01:00 Test Item Value Reference Range Interpretation Comments PARTIAL THROMBOPLASTIN TIME 31.2 seconds 22.5-36.0 (BEAKER) (test code = 760) BASIC METABOLIC [id number] 05:57:00 Test Item Value Reference Range Interpretation [...] 1092) DATA TO CALCULA TE ESTIMATED GFR. [id number] 05:51:00 Test Item Value Reference Range Interpretation Comments MAGNESIUM (BEAKER) (test code = 1.9 mg/dL 1.6-2.6 627) [id number] 05:35:00 Test Item Value Reference Range Interpretation [...] is2.5-3.5 for patients wiht mechanical heart valves.PROTHROMBIN TIME/[id number] 05:34:00 Test Item Value Reference Range Interpretation [...] mechanical heart valves.CBC W/PLT COUNT & AUTO [id number] 05:24:00 Test Item Value Reference Range Interpretation [...] % 0-1 PERCENT (BEAKER) (test code = 6162)
--- NOTE | 2021-08-26 19:57 | CON ---
Date of Consultation: 08/21/2021 Admitted on 08/20/[address] Levine for chest pain. I saw the patient on 08/21/2021. History Of Present Illness: Ms. Calderon is a 71-year-old who has a history of diabetes, hypertension, coronary artery disease. She takes aspirin, metformin, Lopressor, and pravastatin at home. Came in really with atypical chest pain radiating to the back, mostly on the left side under the scapula. It was not exertional. Denied any nausea, vomiting, diaphoresis, PND, orthopnea, pedal edema, palpitat ion, or syncope. She was admitted and already ruled out by the time I saw her. Past Medical History: As stated above. Allergies: MORPHINE. Medications: Stated earlier. Review of Systems: Negative. Social History: Negative. Family History: Negative. Physical Examination: Vital Signs: Stable, sinus rhythm, afebrile, blood pressure 157/49. HEENT: Negative. Neck: Supple. No bruit. Chest: Clear to auscultation and percussion. Cardiac: Exam revealed a regular rhythm and rate. No murmurs, gallops, or rubs. Abdomen: Benign. Extremities: Revealed no clubbing, cyanosis, or edema. Diagnostic Data: Showed a hemoglobin of 7.6. Her hemoglobin A1c was 8.4. Her troponin 0.11. BNP w as 652. EKG was unremarkable. Chest x-ray was unremarkable. Impression And Plan: Elevated troponin and BNP secondary to demand ischemia from anemia. That needs to be addressed. She has an elevated hemoglobin A1c that needs to be addressed as well. I will con tinue her present regimen. Consider transfusion. Consider GI workup. Mrs. Calderon had left carotid e ndarterectomy in July of 2020. She has a normal ejection fraction and normal echo back in 2019. I will see her in the office after she goes home, but I do not plan any cardiac workup on her at this point. I will discuss the case further with Dr. Levine. Continue present regimen. Can go home aft er her anemia gets corrected. NB/MODL Voice ID: [id number] Report ID: [id number]
== END 2021-08-21 19:01 | disposition home or self-care (01) ==
LOC: ER 15:37 → INTOOBSV 21:12 → ERHOLD 21:12 → 2ND 22:07
PROVIDERS: ADMIT Internal Medicine; ATTEND Internal Medicine
DX: D50.9 Iron deficiency anemia, unspecified (principal); R07.9 Chest pain, unspecified; I25.10 Atherosclerotic heart disease of native coronary artery without angina pectoris; E11.9 Type 2 diabetes mellitus without complications; E78.5 Hyperlipidemia, unspecified; R77.8 Other specified abnormalities of plasma proteins; I10 Essential (primary) hypertension; Z79.4 Long term (current) use of insulin; Z95.1 Presence of aortocoronary bypass graft; Z95.5 Presence of coronary angioplasty implant and graft; Z20.822 Contact with and (suspected) exposure to COVID-19
CPT/HCPCS: 93005 ×3; 85025 ×2; 80048; 36415; 86900; 83735 ×2; 86850; 84100; 85610; 80061; 82565; 86901; 82947; 80076; 84443; 85018; 85014; 83036; 84484 ×4; 84439; 82728; 82746; 82607; 83540; 80053; 83880; 84466; 71275; 74175; 71045; 94760 ×2; 96375; 96374; 99285; U0003; Q9967; J0360; J1200; J3010; G0378 ×2; P9016 ×2; J7050; J2405

== ENCOUNTER 2022-02-27 15:35 | Emergency (ER) | payer OTHER ==
--- OUTSIDE RECORDS SUMMARY | 2022-02-27 15:42 | XMS REPORT | Continuity of Care Document ---
:[address] [facility] t Address [address] [place] [address] Dr. Mccall. [address] [place] [address] Care Team Providers Name Role Phone Pcp, Patient Does Not Have A Primary Care Physician [id number] Jona Lao Attending Clinician Unavailable EVELYN GALLARDO Attending Clinician Unavailable Ad GARCIA Attending Clinician Unavailable Maria Del Rosario YOST Attending Clinician Unavailable Isaias EDWARD S Attending Clinician Maria Del Rosario Yost MD Attending Clinician Ruiz Beatty NP Attending Clinician Sunil Attending Clinician Doctor Unassigned, Name Attending Clinician Unavailable Evelyn Gallardo MD Attending Clinician Marleni Moe MD Attending Clinician Last-Madyson_Kaylynn_AH Attending Clinician Unavailable BLANCA MONIQUE Attending Clinician Unavailable EVELYN GALLARDO Admitting Clinician Unavailable IgeJackie Admitting Clinician Unavailable BLANCA MONIQUE Admitting Clinician Unavailable Payers Payer Name Policy Type Policy Number Effective Date Expiration Date S ource [employer] ALL [id number] 2018 00:00:00 EAMON GIBBONS PLS [id number] 2021 HMO 00:00:00 [employer] [place] - [id number] 2019 [employer] 00:00:00 (MEDICARE REPLACEMENT/ADVANT AGE - HMO) Problems Condition Condition Condition Status Onset Resolution Last Treating Co mments Source Name Details Category Date Date Treatment Clinician Date Left Left Disease Active 2019-[address] [facility] carotid carotid 2-07 [facility] artery artery 00:00: Medical stenosis stenosis 00 Center S/P CABG x S/P CABG x Disease Active 2018-[address] 1 by 1 by 0-16 [facility] on 00:00: Me dical 07/29/2019 07/29/2019 00 Ce nter Coronary Coronary Disease Active 2018-10 [facility] artery artery 0-15 [facility] disease disease 00:00: Medical 00 Center Other Other Disease Active Overview: Univer s appendicit appendicit 6-06 Formattin ity of is is 00:00: g of this 00 note Medical might be Branch different from the original. Added automatic ally from request for surgery [id number] HLD HLD Disease Active Univers (hyperlipi (hyperlipi [...] rs EKG EKG 04-18 ity of 00:00: 00 Medical Branch Acute Acute Disease Active [facility] respirator respirator Daniela kes y y Medical insufficie insufficie Ce nter ncy ncy Acute Acute Disease Active [facility] blood loss blood loss Danilea kes anemia anemia Medical Center Hyperglyce Hyperglyce Disease Active [facility] keyona [facility] Chronic Chronic Disease Active [facility] hypertensi hypertensi Daniela kes on on Medical Center Allergies, Adverse Reactions, Alerts Allergy Allergy Status Severity Reaction(s) Onset Inactive Treating Comm ents Source Name Type Date Date Clinician Morphine Propensi Active Other - See Burning Univers ty to comments 06-18 to skin ity of adverse 00:00: [place] reaction 00 Medical s Branch MORPHINE DRUG Active Other-Cmnt Univ ers INGREDI 06-18 ity of 00:00: [place] 00 Medical Branch MORPHINE Allergy Active 2019-[address] [facility]01 [facility] 00:[facility]: Medical 00 Center Morphine Propensi Active 2019-[address] ty to 2- [facility] adverse 00:00: Medical reaction 00 Center s NO KNOWN Allergy Active [facility] S NO KNOWN Drug Active Univers ALLERGIE Class ity of S [facility] Family History Family Member Diagnosis Comments Start Date Stop Date Source Natural brother Heart attack [facility] Natural father Diabetes [facility] Natural father Heart disease [facility] Natural mother Diabetes [facility] Natural mother Heart disease [facility] Social History Social Habit Start Date Stop Date Quantity Comments Source Exposure to Not sure [facility] SARS-CoV-2 [facility] [place] [facility] (event) Branch History SDOH [facility] Alcohol Std Medical Cente r Drinks History SDOH [facility] Alcohol Binge Medical Tina ter Tobacco use and 2021-06-18 2021-06-18 Never used Universit y of exposure 00:00:00 00:00:00 [facility] Alcohol intake 2021-06-18 2021-06-18 Current University of 00:00:00 00:00:00 non-drinker of [facility] [place] [facility] alcohol Branch (finding) History SDOH 2019-07-28 2019-07-[address] [facility] Alcohol Frequency 00:00:00 00:00:00 [facility] Sex Ass[birth year] At [birth year] Universit y of 00:00:00 00:00:00 [facility] Smoking Status Start Date Stop Date Source Never smoker [facility] Medications Ordered Filled Start Stop Current Ordering Indication Dosage Frequency Signature Comments Components Source Medication Medication Date Date Medication? Clinician (SIG) Name Name ketorolac No 30mg 30 mg, Unive rs (TORADOL) 06-18 Intramuscu ity of injection 16:45: 15:41 [place] 30 mg 00 :00 1 dose, Medical 06/18/21 Branch at 1145, JASON
Fa [facility] member approving Restricted medication : CAROL ANN BEATTY HYDROcodone 2020- No 1{tbl} 1 tablet, Univers -acetaminop 06-18 Oral, ity of hen (NORCO) 16:45: 15:41 [place] 10[place]325 mg 00 :00 dose, Sun Medic al tablet 1 06/18/21 at Branch tablet 1145, Routine clopidogreL 0 Yes 75mg Take 75 mg Univers 75 mg 05 by mouth. ity of tablet 16:10: [address] metoprolol Yes 25mg Take 25 mg U nivers tartrate 25 06-18 by mouth. ity of mg tablet 16:10: [address] clopidogreL 0 Yes 75mg Take 75 mg Univers 75 mg 05 by mouth. ity of tablet 16:10: [address] metoprolol Yes 25mg Take 25 mg U nivers tartrate 06-18 by mouth. ity of mg tablet 16:10: [address] clopidogreL 0 Yes 75mg Take 75 mg Univers 75 mg 06-18 by mouth. ity of tablet 16:10: [address] metoprolol 0 Yes 25mg Take 25 mg U nivers tartrate 25 06-18 by mouth. ity of mg tablet 16:10: [address] clopidogreL 0 Yes 75mg Take 75 mg Univers 75 mg 05 by mouth. ity of tablet 16:10: [address] metoprolol 0 Yes 25mg Take 25 mg U nivers tartrate 25 05 by mouth. ity of mg tablet 16:10: [address] clopidogreL 0 Yes 75mg Take 75 mg Univers 75 mg 05 by mouth. ity of tablet 16:10: [address] metoprolol 0 Yes 25mg Take 25 mg U nivers tartrate 25 06-18 by mouth. ity of mg tablet 16:10: [address] atorvastati 2020- No 80mg Take 80 mg Univers n 40 mg 06-18 by mouth. ity of tablet 16:10: 00:00 [place] 25 :00 Medical Branch metFORMIN No 850mg Take 850 Un zia 850 mg 06-18 mg by ity of tablet 16:10: 00:00 mouth. [place] 25 :00 Medical Branch traMADoL 50 2020- No [id number] 50mg Take 1 Uni vers mg tablet 06-18 tablet by ity of 00:00: 04:59 mouth [place] 00 :00 every 6 Medical (six) Branch hours as needed for Pain (scale 1-3), Pain (scale 4-6) or Pain (scale 7-10) for up to 7 days. Indication s: acute pain traMADoL 50 2020- No 4647 50mg Take 1 Uni vers mg tablet 06-18 tablet by ity of 00:00: 04:59 mouth [place] 00 :00 every 6 Medical (six) Branch hours as needed for Pain (scale 1-3), Pain (scale 4-6) or Pain (scale 7-10) for up to 7 days. Indication s: acute pain traMADoL 50 2020- No 4647 50mg Take 1 Uni vers mg tablet 06-18 tablet by ity of 00:00: 04:59 mouth [place] 00 :00 every 6 Medical (six) Branch hours as needed for Pain (scale 1-3), Pain (scale 4-6) or Pain (scale 7-10) for up to 7 days. Indication s: acute pain traMADoL 50 2020- No 4647 50mg Take 1 Uni vers mg tablet 06-18 tablet by ity of 00:00: 04:59 mouth [place] 00 :00 every 6 Medical (six) Branch hours as needed for Pain (scale 1-3), Pain (scale 4-6) or Pain (scale 7-10) for up to 7 days. Indication s: acute pain traMADoL 50 2020- No 4647 50mg Take 1 Uni vers mg [...] St MG EC 2-21 by mouth [facility] tablet 11:03: daily. [address] atorvastati 2019-10 Yes 80mg QD Take [address] n (LIPITOR) 2-21 by mouth Luke s 40 MG 11:03: daily . Medical tablet [address] [place] [address] metFORMIN 2019-10 Yes 850mg Take [address] (GLUCOPHAGE 2-21 mg by [facility]ukes ) 850 MG 11:03: mouth 2 Medica l tablet 52 (two) Center times daily with breakfast and dinner. clopidogreL 2019-10 Yes 75mg QD Take [address] (PLAVIX) 75 2-21 by mouth Luke s mg tablet 11:03: daily. Medica l [address] [place] [address] metoprolol 2019-10 Yes 25mg Q.5D Take [address] tartrate 2-21 by mouth 2 [facility]ukes (LOPRESSOR) 11:03: (two) Medic al 25 MG 52 times Center tablet daily. aspirin 81 2019-10 Yes 81mg QD Take [address] MG EC 2-21 by mouth [facility]ukes tablet 11:03: daily. [address] atorvasti 2019-10 Yes 80mg QD Take [address] n (LIPITOR) 2-21 by mouth Luke s 40 MG 11:03: daily . Medical tablet [address] [place] [address] metFORMIN 2019-10 Yes 850mg Take [address] (GLUCOPHAGE 2-21 mg by [facility]ukes ) 850 MG 11:03: mouth 2 Medica l tablet 52 (two) Center times daily with breakfast and dinner. clopidogreL 2019-10 Yes 75mg QD Take [address] (PLAVIX) 75 2-21 by mouth Luke s mg tablet 11:03: daily. Medica [address] metoprolol 2019-10 Yes 25mg Q.5D Take [address] tartrate 2-21 by mouth 2 [facility]ukes (LOPRESSOR) 11:03: (two) Medic al 25 MG 52 times Center tablet daily. traMADoL 2019-10 Yes 50mg Take [address] (ULTRAM) 50 2-08 by mouth Luke s mg tablet 00:00: every 6 Medic al 00 (six) Center hours as needed for pain. traMADoL 2019-10 Yes 50mg Take [address] (ULTRAM) 50 2-08 by mouth Luke s mg tablet 00:00: every 6 Medic al 00 (six) Center hours as needed for pain. losartan 2019-10- No 25mg QD Take [address] (COZAAR) 25 11-14 by mouth Dhruv es MG tablet 13:32: 00:00 daily. Medic al 26 :00 Center losartan 2019-10 2020- No 25mg QD Take [address] (COZAAR) 25 11-14 by mouth Dhruv es MG tablet 13:32: 00:00 daily. Medic al 26 :00 Center acetaminoph 2019-10- No 1{tbl} Take [address] en-codeine -09-13 tablet by Dhruv es (TYLENOL 13:32: 00:00 mouth Medical #3) 300-30 20 :00 every 6 Center mg per (six) tablet hours as needed for Pain. acetaminoph 2019-10- No 1{tbl} Take [address] en-codeine 11-14 tablet by Dhruv es (TYLENOL 13:32: 00:00 mouth Medical #3) 300-30 20 :00 every 6 Center mg per (six) tablet hours as needed for Pain. Insulin 2019-10 Yes 15U inject 15 Unive [...] Units ity of ([facility]:00[facility] F[facility] 00 skin. Medical U-100 Branch INSULN) 100 unit/mL (3 mL) injection Levemir 2019-10 Yes 15U QD Inject 15 CHI S t FlexTouch 1-04 Units [facility]ukes U-100 00:00: subcutaneo Medica l Insuln 100 00 usly Center unit/mL (3 nightly. mL) InPn injection Levemir 2019-10 Yes 15U QD Inject 15 CHI S t FlexTouch 1-04 Units [facility]ukes U-100 00:00: subcutaneo Medica l Insuln 100 00 usly Center unit/mL (3 nightly. mL) InPn injection citalopram 2019-10 Yes 20mg Take 20 mg U nivers 20 mg 0-14 by mouth. ity of tablet 00:00: [address] citalopram 2019-10 Yes 20mg Take 20 mg U nivers 20 mg 0-14 by mouth. ity of tablet 00:00: [address] citalopram 2019-10 Yes 20mg Take 20 mg U nivers 20 mg 0-14 by mouth. ity of tablet 00:00: [address] citalopram 2019-10 Yes 20mg Take 20 mg U nivers 20 mg 0-14 by mouth. ity of tablet 00:00: [address] citalopram 2019-10 Yes 20mg Take 20 mg U nivers 20 mg 0-14 by mouth. ity of tablet 00:00: [address] citalopram 2019-10 Yes 20mg QD Take [address] (CeleXA) 20 0-14 by mouth Luke s MG tablet 00:00: daily. Medica l [address] [place] citalopram 2019-10 Yes 20mg QD Take [address] (CeleXA) 20 0-14 by mouth Luke s MG tablet 00:00: daily. Medica l [address] [place] metoprolol 2018-10 No 25mg Q.5D Take [address] (LOPRESSOR) 0-22 10-21 tablet (25 L ukes 25 MG 00:00: 23:59 mg total) Medica l tablet 00 :00 by mouth 2 Center (two) times daily. metoprolol 2019-1 2020- No 25mg Q.5D Take [address] (LOPRESSOR) 0-22 10-21 tablet (25 L ukes 25 MG 00:00: 23:59 mg total) Medica l tablet 00 :00 by mouth 2 Center (two) times daily. amLODIPine 20190 Yes 5mg Take 1 Unive rs 5 [...] a while due to financial issues atorvastati 0 Yes [id number] 40mg Take 1 Univers n 40 mg [...] due to financial issues atorvastati 2019-0 Yes [id number] 40mg Take 1 Univers n 40 mg 6-24 tablet by ity of tablet 00:00: mouth at [place] 00 bedtime. Medical Branch amLODIPine 2018-0 Yes 5mg Take 1 Unive rs 5 [...] a while due to financial issues atorvastati 2019 Yes [id number] 40mg Take 1 Univers n 40 mg [...] a while due to financial issues atorvastati 20190 Yes [id number] 40mg Take 1 Univers n 40 mg [...] by ity of tablet 00:00: mouth 2 00 (two) Medical times Branch daily. Indication s: hasn't taken in a while due to financial issues atorvastati 2019- Yes [id number] 40mg Take 1 Univers n 40 mg 6-24 tablet by ity of tablet 00:00: mouth at [place] 00 bedtime. Medical Branch amLODIPine 0 Yes 5mg Take 1 Unive rs 5 mg tablet 6-24 tablet by ity of 00:00: mouth [place] 00 daily. Medical Indication Branch s: hasn't taken in a while due to financial issues hydroCHLORO Yes 12.5mg Take 1 Un zia thiazide 6-24 capsule by ity o f 12.5 mg 00:00: mouth [place] capsule 00 daily. Medical Indication Branch s: hasn't taken in a while due to financial issues lisinopril Yes 20mg Take 1 Unive rs 20 mg 6-24 tablet by ity of tablet 00:00: mouth (two) Medical times Branch daily. Indication s: hasn't taken in a while due to financial issues atorvastati Yes [id number] 40mg Take 1 Univers n 40 mg 6-24 tablet by ity of tablet 00:00: mouth at [place] 00 bedtime. Medical Branch amLODIPine Yes 5mg Take 1 Unive rs 5 [...] a while due to financial issues lisinopril 2018- Yes 20mg Take 1 Unive rs 20 mg 6-24 tablet by ity of tablet 00:00: mouth 2 (two) Medical times Branch daily. Indication s: hasn't taken in a while due to financial issues atorvastati Yes [id number] 40mg Take 1 Univers n 40 mg 6-24 tablet by ity of tablet 00:00: mouth at [place] 00 bedtime. Medical Branch lisinopril 2019-0 Yes 40mg QD Take [address] (PRINIVIL,Z 6-24 by mouth Luke s ESTRIL) 20 00:00: daily . Medi albert MG tablet 00 [place] lisinopril 2019-0 Yes 40mg QD Take [address] (PRINIVIL,Z 6-24 by mouth Luke s ESTRIL) 20 00:00: daily . Medi albert MG tablet 00 [place] traMADOL 50 0 Yes [id number] 50mg Take 1 Univers mg tablet 6-17 tablet by ity o f 00:00: mouth [place] 00 every 6 Medical (six) Branch hours as needed for Pain (scale 7-10). traMADOL 50 0 Yes [id number] 50mg Take 1 Univers mg tablet 6-17 tablet by ity o f 00:00: mouth [place] 00 every 6 Medical (six) Branch hours as needed for Pain (scale 7-10). traMADOL 50 2018-0 Yes [id number] 50mg Take 1 Univers mg tablet 6-17 tablet by ity o f 00:00: mouth [place] 00 every 6 Medical (six) Branch hours as needed for Pain (scale 7-10). traMADOL 50 2018-0 Yes [id number] 50mg Take 1 Univers mg tablet 6-17 tablet by ity o f 00:00: mouth [place] 00 every 6 Medical (six) Branch hours as needed for Pain (scale 7-10). traMADOL 50 2018-0 Yes [id number] 50mg Take 1 Univers mg tablet 6-17 tablet by ity o f 00:00: mouth [place] 00 every 6 Medical (six) Branch hours as needed for Pain (scale 7-10). traMADOL 50 2018-0 Yes [id number] 50mg Take 1 Univers mg tablet 6-17 tablet by ity o f 00:00: mouth [place] 00 every 6 Medical (six) Branch hours as needed for Pain (scale 7-10). traMADOL 50 2019-0 Yes [id number] 50mg Take 1 Univers mg tablet 6-17 tablet by ity o f 00:00: mouth [place] 00 every 6 Medical (six) Branch hours as needed for Pain (scale 7-10). metFORMIN 2018-0 Yes 500mg Take 500 Uni vers (GLUCOPHAGE [...] a while due to financial issues amoxicillin 2019-0 Yes [id number] 1{tbl} Take 1 Univers -clavulanat 6-13 tablet by ity of e 00:00: mouth 2 [place] (AUGMENTIN) 00 (two) Medical 875-125 mg times Branch per tablet daily. amoxicillin 2019-0 Yes [id number] 1{tbl} Take 1 Univers -clavulanat 6-13 tablet by ity of e 00:00: mouth 2 [place] (AUGMENTIN) 00 (two) Medical 875-125 mg times Branch per tablet daily. amoxicillin 2018-2020- No [id number] 1{tbl} Take 1 Univers -clavulanat 6-13 09-05 [...] of tablet 00:00: mouth [place] 00 daily. [facility] Branch Vital Signs Vital Name Observation Time Observation Value Comments Source HEIGHT 2020-09-19 09:05:00 154.9 cm WEIGHT 2020-09-19 09:05:00 75.615 kg Systolic blood 2021-06-20 20:23:00 148 mm[Hg] Univer sity of pressure [facility] Diastolic blood 2021-06-20 20:23:00 66 mm[Hg] Unive rsity of pressure [facility] Heart rate 2021-06-20 20:23:00 76 /min [facility] Body height 2021-06-20 20:23:00 154.9 cm [facility] Body weight 2021-06-20 20:23:00 74.844 kg [facility] BMI 2021-06-20 20:23:00 31.18 kg/m2 [facility] Systolic blood 2021-06-18 16:05:00 184 mm[Hg] Univer sity of pressure [facility] Diastolic blood 2021-06-18 16:05:00 60 mm[Hg] Unive rsity of pressure [facility] Heart rate 2021-06-18 15:10:00 77 /min Universi ty of [facility] Body temperature 2021-06-18 15:10:00 37.44 [place] Univ ersity of [facility] Respiratory rate 2021-06-18 15:10:00 20 /[facility] 2021-06-18 15:10:00 154.9 cm Universi ty of [facility] Body weight 2021-06-18 15:10:00 74.844 kg Universi ty [facility] BMI 2021-06-18 15:10:00 31.18 kg/m2 Universi [facility] Oxygen saturation in 2021-06-18 15:10:00 98 /min [facility] blood by [facility] [place] [facility] Pulse oximetry Branch HEIGHT 2020-10-03 11:00:00 154.9 cm WEIGHT 2020-10-03 11:00:00 75.297 kg HEIGHT 2020-10-03 11:00:00 154.9 cm WEIGHT 2020-10-03 11:00:00 75.297 kg HEIGHT 2020-09-19 09:05:00 154.9 cm WEIGHT 2020-09-19 09:05:00 75.615 kg HEIGHT 2020-09-13 13:29:00 154.9 cm WEIGHT 2020-09-13 13:29:00 75.297 kg HEIGHT 2020-09-13 13:29:00 154.9 cm WEIGHT 2020-09-13 13:29:00 75.297 kg Systolic blood 2020-10-03 11:00:00 171 mm[Hg] [facility] Diastolic blood 2020-10-03 11:00:00 71 mm[Hg] [facility] S [facility] Heart rate 2020-10-03 11:00:00 78 /min [facility] Body temperature 2020-10-03 11:00:00 37 [place] [facility] Respiratory rate 2020-10-03 11:00:00 18 /min [facility] Body height 2020-10-03 11:00:00 154.9 cm [facility] Body weight 2020-10-03 11:00:00 75.297 kg [facility] BMI 2020-10-03 11:00:00 31.37 kg/m2 [facility] Oxygen saturation in 2020-10-03 11:00:00 98 /min room air [facility] Arterial blood by Medical Keli ntgwendolyn Pulse oximetry Procedures Procedure Date / Time Performing Clinician Source Performed REFERRAL- 2021-04-06 05:01:00 Doctor Unassigned, Jud [facility] REQUEST/RESPONSE Name Medical Branch POCT-GLUCOSE METER 2020-09-20 11:36:00 [facility] 2020-09-20 07:33:00 Monique [facility] CBC W/PLT COUNT & AUTO 2020-09-20 00:18:00 Aron [facility] BASIC METABOLIC PANEL 2020-09-20 00:18:00 Aron [facility] (7) [place] MAGNESIUM 2020-09-20 00:18:00 [place], [facility] PHOSPHORUS 2020-09-20 00:18:00 [facility], [facility] CALCIUM, IONIZED 2020-09-20 00:18:00 [facility] TISSUE EXAM 2020-09-19 14:54:00 Monique [facility] POCT-ACT 2020-09-19 14:15:00 Monique [facility] POCT-ACT 2020-09-19 14:03:00 Juan Gallardo [facility] ENDARTERECTOMY,CAROTID 2020-09-19 12:52:00 [facility] PROTHROMBIN TIME/INR 2020-09-19 10:22:00 Aron [facility] APTT 2020-09-19 10:22:00 [facility] POCT-GLUCOSE METER 2020-09-19 09:06:00 Monique [facility] CBC W/PLT COUNT & AUTO 2020-09-13 14:52:00 Juan Gallardo [facility] DIFFERENTIAL [facility] BASIC METABOLIC PANEL 2020-09-13 14:52:00 Juan Gallardo [facility] (7) [facility] PROTHROMBIN TIME/INR 2020-09-13 14:52:00 Juan Gallardo [facility] ABORH, MANUAL 2020-09-13 14:52:00 Juan Gallardo [facility] ECG 12-LEAD 2020-09-13 14:37:40 Unknown, Hl7 Doctor [facility] Plan of Care Planned Activity Planned Date Details Comments Source Future Scheduled 2020-10-[address] [facility] Test 00:00:00 (12+) [code = Medical Center DEPRESSION SCREENING (12+)] Future Scheduled 2020-10-[address] [facility] Test 00:00:00 (12+) [code = Medical Center DEPRESSION SCREENING (12+)] Future Scheduled 2020-06-[address] [facility] Test 00:00:00 (#1) [code = Medical Center INFLUENZA VACCINE (#1)] Future Scheduled 2020-06-[address] [facility] Test 00:00:00 (#1) [code = Medical Center INFLUENZA VACCINE (#1)] Future Scheduled 2019-10-[address] [facility] Test 00:00:00 WELLNESS (YEAR 2 or Medical Center FIRST YEAR if no IPPE) [code = MEDICARE ANNUAL WELLNESS (YEAR 2 or FIRST YEAR if no IPPE)] Future Scheduled 2019-10-[address] [facility] Test 00:00:00 WELLNESS (YEAR 2 or Medical Center FIRST YEAR if no IPPE) [code = MEDICARE ANNUAL WELLNESS (YEAR 2 or FIRST YEAR if no IPPE)] Future Scheduled 2001 SHINGLES VACCINES ([address] [facility] Test 00:00:00 of 2) [code = Medical Center SHINGLES VACCINES (1 of 2)] Future Scheduled 2001 SHINGLES VACCINES ([address] [facility] Test 00:00:00 of 2) [code = Medical Center SHINGLES VACCINES (1 of 2)] Future Scheduled 1970 DTAP/TDAP/TD VACCINES [facility] Test 00:00:00 (1 - Tdap) [code = Medical C enter DTAP/TDAP/TD VACCINES (1 - Tdap)] Future Scheduled 1970 DTAP/TDAP/TD VACCINES [facility] Test 00:00:00 (1 - Tdap) [code = Medical C enter DTAP/TDAP/TD VACCINES (1 - Tdap)] Future Scheduled 1969 HEPATITIS C SCREENING [facility] Test 00:00:00 [code = HEPATITIS C Medical Center SCREENING] Future Scheduled 1969 HEPATITIS C [facility]CRE[facility]ING [facility] Test 00:00:00 [code = HEPATITIS C Medical Center SCREENING] Future Scheduled [address] [facility] Test 00:00:00 malignant neoplasm of Medica l Center breast (procedure) [code = 092622274] Future Scheduled [address] [facility] Test 00:00:00 malignant neoplasm of Medica l Center colon (procedure) [code = 106086441] Future Scheduled [address] [facility] Test 00:00:00 malignant neoplasm of Medica l Center breast (procedure) [code = 787305322] Future Scheduled [address] [facility] Test 00:00:00 malignant neoplasm of Medica l Center colon (procedure) [code = 292992704] Encounters Start End Encounter Admission Attending Care Care Encounter Source Date/Time Date/Time Type Type Clinicians Facility Department ID 2022-01-03 [facility] [place] [id number] Common 10:05:03 Shant [facility] 2022-01-01 Outpatient [place], [facility] [id number] Common 13:11:04 Shant [facility] 2021-11-08 Outpatient Lao, [facility] [id number] Common 14:15:27 Shant [id number] [facility] 2021-11-08 [facility] [place] [id number] Common 14:10:48 Shant [id number] [facility] 2021-11-08 [facility] [place], [facility] [id number] Common 14:04:07 Shant [id number] [facility] 2021-11-08 Outpatient STLMLC ST[facility] [id number] Common 13:49:07 [id number] [facility] 2021-08-[address] [facility] [id number] Univers 20:32:56 [facility] 2021 Inpatient [facility] Surgery [id number] [facility] 18:22:15 [facility] 2022-01-04 2022-01-04 ambulatory STLMLC ST[facility] [id number] Common 00:00:00 00:00:00 [facility] 2022-01-04 2022-01-04 ambulatory STLMLC STLMLC [id number] Common 00:00:00 00:00:00 [facility] 2021-12-21 2021-12-21 ambulatory STLMLC STLMLC [id number] Common 00:00:00 00:00:00 [place] [facility] [facility]-20 2021-11-20 ambulatory STLMLC STLMLC [id number] Common 00:00:00 00:00:00 [facility] 2021-10-30 2021-10-30 ambulatory STLMLC STLMLC [id number] Common 00:00:00 00:00:00 [facility] 2021-09-28 2021-09-28 ambulatory STLMLC STLMLC [id number] Common 00:00:00 00:00:00 [facility] 2021-08-31 2021-08-31 ambulatory STLMLC STLMLC [id number] Common 00:00:00 00:00:00 [facility] 2021-08-25 2021-08-25 ambulatory STLMLC STLMLC [id number] Common 00:00:00 00:00:00 [facility] 2021-08-22 2021-08-22 ambulatory STLMLC STLMLC [id number] Common 00:00:00 00:00:00 [facility] 2021-08-07 2021-08-07 Outpatient STLMLC STLMLC [id number] Common 00:00:00 00:00:00 [facility] 2021-07-19 2021-07-19 [address] [facility] [id number] Univers 14:30:00 14:30:00 CINTHIA [id number] [facility] 2021-06-26 2021-06-26 [facility] [id number] Univers 13:45:00 13:45:00 UTE [id number] [facility] 2021-06-26 2021-06-26 Outpatient [facility] [id number] Univers 13:45:00 13:45:00 UTE [facility] 2021-06-20 2021-06-20 [facility] [id number] Univers 15:14:01 15:29:01 Visit [facility] Vormetric 350.1.13.10 it y of [place] 4.2.7.2.686 Lorenzo as Yuri?Blea [phone] Ks jose felix [address] [place] [address] 2021-06-20 2021-06-20 Outpatient [facility] [id number] -[id number] Univers 15:00:00 15:00:00 CINTHIA [id number] [facility] 2021-06-20 2021-06-20 Outpatient [facility] [id number] Univers 15:00:00 15:00:00 CINTHIA [facility] 2021-06-20 2021-06-20 [facility] [id number] Univers 00:00:00 00:00:00 Cinthia S Vormetric 350.1.13.10 it y of [place] 4.2.7.2.686 Lorenzo as Yuri?Blea [phone] Ks jose felix [address] [place] [address] 2021-06-19 2021-06-19 [facility] [id number] Univers 00:00:00 00:00:00 [facility] 350.1.13.10 it y of [place] 4.2.7.2.686 Lorenzo as Yuri?Blea [phone] [address] Medical Office Building 2021-06-18 2021-06-18 Emergency Drever, [facility] [id number] Univers 10:12:00 11:17:00 Carol Ann Soriano 350.1.13.10 ity of [place].2.[place] [phone] [facility] [address] 2021-04-26 2021-04-26 Letter ONEAL Barber [id number] Univers 00:00:00 00:00:00 (Out) Charlette JOHNSY 350.1.13.10 i ty of [facility] 4.2.7.2.686 Lorenzo as [phone] [facility] [address] 2021-04-06 2021-04-06 Orders Doctor NO [id number] [id number] Univers 00:00:00 00:00:00 Only Unassigned, HARVEY 350.1.13.10 ity of [place] [facility] 4.2.7.2.686 Lorenzo as [phone] [facility] [address] 2020-10-03 2020-10-04 Office [facility] [id number] 10:58:57 06:55:34 Visit [facility] 2020-10-03 2020-10-03 Outpatient MONIQUE [facility] [id number] SLE 00:00:00 00:00:00 [facility] 2020-09-19 2020-09-[address] [facility] [id number] 08:52:00 16:45:00 Encounter Juan [facility] 2020-09-19 2020-09-19 [facility] [id number] 13:06:00 15:11:00 Event Maribell Yepez [facility] 2020-09-19 2020-09-19 Surgery [facility] [id number] 11:00:00 14:00:00 [facility] 2020-09-16 2020-09-16 Abstract [facility] [id number] 00:00:00 00:00:00 [facility] 2020-09-13 2020-09-[address] [facility] [id number] 14:23:27 14:53:27 Visit [facility] 2020-09-13 2020-09-13 Outpatient HUSSEIN CLARKE [facility] [id number] [facility] 14:23:27 14:23:27 JUAN 2020-09-13 2020-09-13 Orders [facility] [id number] 00:00:00 00:00:00 [facility] 2019-12-02 2019-12-02 Outpatient Ige-Odunuga VFP VFP [id number] [facility] 07:29:00 07:29:00 _J_ [id number] Family Practic e Results Test Description Test Time Test Comments Results Result Comments Source Tissue Exam 2020-09-23 18:50:00 Test Item Value Reference Range Interpretation Comme nts Case Report (test code = 104) Surgical Pathology Report Case: [id number] Authorizing Provider: Juan Gallardo, Collected: 09/19/2020 02:54 PM Ordering Location: [facility] Received: 09/19/2020 03:32 PM PERIOPERATIVE SERVICES Pathologist: Jarad Menchaca MD Specimen: Plaque, LEFT CAROTID ARTERY PLAQUE DIAGNOSIS (test code = 3220) j4gudZAyYCVar3qpRHKdaBXzBrUuTiExSlSxIq pc dWMxIHtccnRmMVxlcGljOTIwMFxhbnNpXHNwbHRw U1EnhmhqWMjhME5bSG6iqEkojCCogFBbYGFyNfVv l8uxm982dPBlz5neFSRBgppoiCg0dTeoV63qe1K7 YedpC68ouUPaNAwevGXzrvrmsoInPLDLZJVVTVom LRWUSELHODAIRRuIUXWPTeZHOfJMGkIUYE9SOGsb zDNzJBBNVNEXDvmZDGAZSMMXU7YYTTYOI5MLCsQR PAGGEODuIYVtkf06XQL9EcQtn9N6HOB2ISTsBLTz t4jxEQBkvZLfFfByWxIzUgNrNrxxvOGcKQPfNgXm y1ciu734hTEqf8elTRAtSmO4mTFtRJNmyYHxU494 ISDkPIdlp2puf6XmSYLweKWvt4C6XDCGzjvinFk6 yNciE05gu1K4HbpoR6beFRCsQHIwB3NsRV3fSRHa Myb0WBC7GHO9IPTvPVBpC2ApFL1xPOWksJMiQWv8 c8nuuSgdNYRrIKO8p0nlFHbosfYfFI3vwr2aqRr0 g7frhyFrBLWzSOPzmXXVKTRuS3SlrZcoCr1fyGb8 wZwqJomhZWA5Lvh5JN7ncu65gwp6kDgoAQRohjll FxG1YNddGNPtqnsnCHs5RDakYFUzyQI2VCGrpAIg P4NvKQEsFK3gihn3JHL7WWsbAMBcCgP4WSRpqALs SJVmtAnsYCbws565CSQ2UxBmDR2xH7Tye0X9bX7d zGCgEUOftYVmUoGfVNMock7mvKUtSUlvq3CeXLJ3 myI6jZRsnYAtNEPcHyU4XZjjVO5tde79GBUhIME9 tk3itFXddMspuuSwtUBcLMhaV4PjXTKfw885HXHp P5OjMICsi7V1iuLjKwMdTFCikXN2ojN2SAUnUM3f bzzxb0zqSKgpHWffUQBkyaO2hzD1GMDujEMaC5Fk jM1uMYMnDW8htqhca9hvEOH2MAtfSOOhSIN5BiZg QNOee5Byilg8TrGjv9FaaNIpPTerB18ur945YLAd wfTsA9updWSxnoacsCDjbiecCMimwbN8TJAdOHvf enhxPVQfRPzlD8dwTlIxHCTnrShbVIshu8IuBXNw LXSmAbUouUBcOQWfGdp3OMPwaMBjWHAeGdBaI5fc uisaWkVBYEDag8pkM6qhtPFMsWSgF1XkOMiknuKp NWpiVBdnQLFrUSL3HP84LrxmKAUiky79 CPT Code(s) (test code = 3357) x8wpqAUcFMDxvMN0OdOhCJMdd0scj7RjfOYs cGFy OUomqKTdvbEsri76mCV6wJ76QJ9pVJOwOmA3NQMe viX7Uwn2OHEfQKHvgWLnS335q2zdn2ezibTxlCM8 tBozLRRtVIIjBCspMXUbByHfBDrpCFR7UHt4CzDs XHBhcn0= CLINICAL HISTORY (test code = 3356) t9ndaKZbDMTagRF9ZqXsPFLnk7kfy2M sdHBncGFy YGmnqQTpftTgpo27rJM5jA86XC9xGYQpOeP4CYUk ysW8Tyq8XDMfSIYwmERyT498n9tqa3fbzdKfwIM5 hPpaRJWaPWEcDLnpKYZnRoAyTUYke7OvRCjfR10e w0bhUmRbgZNdmQNwZGJgbBycIVO2YZ1av1lcGACo cn0= SPECIMEN SOURCE (test code = 3377) a2nthVAySCVduMY7JnPnGLWmx5xky7Cv dHBncGFy GFisbUPbiqDwnb19oIT0uZ11FM3qTCSlKzF2FEGg jpO8Qdy4ZWZrMIBpkQPaH272y8jlk2myqzIlgWF7 fVxwYXJkXHBsYWluXGZzMjAgUGxhcXVlIFxwYXJ9 GROSS DESCRIPTION (test code = 3366) y9nmnLZjKZQpcBC9UkEkCJRsc0cik6 BsdHBncGFy UYzeyDYptxPmud39hRW5fR86CS7vLRBrPiE7QCLg paL5Ghn3KGGoENIakYEpF372d1crg5zakoWqzMS0 lCulIEUnDAPsNPytGAMySbDeGxGbWTy2WUMaDkDj t3jusXWvOTxmAAB9bCQbXEUkIBMoIMRlRZ92B7Pg ynCcDKxyZCMcVYIweD3nCL94sYIgdxKdrhKmWhWc DAS3BHtmjGBlsVPqPKQyjLbqOIHdaJMbnWXxeSQy rXRiKMhmADVzOo9qMOmyHr2zTBKdBNgfnfGnwZpf xgXrqdKwaFXrqPVfZrW8WZzth5rgoTeieSChAPZp HXNjVJgzbAvwxXApV4HqE5vghYYabXmvnu2aHVaz SLHfRZIlxPSjCGhrJTXvjwwedEh7VDWvP2Gun68d GEA2mpDlGAEgDUnjZVT8DKvvq3flrE8tc2ptibIw zWXeO3OxS2rqqLQnKAHegkIgwe2tXNclUJKdTUEl pWJnRCseJZE7Sz9duXEaVVLuogEfwGNuQA04rKRd eIvpVc7zqK08sD6xAHUxO1EqQ2dnqKMbcZbcowDh wwAKHH3hZNuBA0UvLSvtJFQ7 MICROSCOPIC DESCRIPTION (test code = i1jlgGFwUXDanRQ0DpQnMCYhb5gio6 BsdHBncGFy 3371) ZDprjLMzyoEril33pCF4cR22SJ7eMEDjAmA9LAOh pbO4Qoc2ZXQyUQVowUDlZ129e7bup1jwbeBewNF9 xWfpGVPePOEuITuqVLBvZiWrDIZsUj1vbGRfFRYt cn0= [facility] [id number] 18:50:00 Test Item Value Reference Range Interpretation Comments Case Report (test code Surgical Pathology = 104) Report Case: [id number] Authorizing Provider: Juan Gallardo, Collected: 09/19/2020 02:54 PM Ordering Location: [facility] Received: 09/19/2020 03:32 PM PERIOPERATIVE SERVICES Pathologist: Jarad Menchaca MD Specimen: Plaque, LEFT CAROTID ARTERY PLAQUE DIAGNOSIS (test code = u2volPNpCFHyk6hcZHQdtMW 3220) uZzEwMzNcZnRuYmpcdWMxIH tccnRmMVxlcGljOTIwMFxhb kCuQPKnwQUuM7FvqjuyKXho KU9hTB8ooTeyeAYlcOXwQSA fWdBye8ora781qDErt4vgYD PYgcdqwCw0dZqoO81ku7D4P ifqY48hiIHvHKibaFGkclmm czIwIEFSVEVSWSwgTEVGVCB DQVJPVElELCBFTkRBUlRFUk SCVT8VWJrrzGVaGVURLTGWF ktSFDRWEWWTJ2KPMESWB5SA QnWSLAYKAOIfFTQfjj20PMD 0PoLag0Q7YKE1CTRnIRGwe4 lcZGVmbGFuZzEwMzNcZnRuY ugtmBQsFEYjNkTtd9oae561 gUCcr2xxLLBgGcK3rFKkDYC kcUGlW530PCZbNAhkv4fgl4 CxACUymFJdk9O2UJVEbmojk Kc2aJvaJ46gk3C9NdyrI8qm FZEdRYUnU7LtHK6lLEOsCki 4JQY2VQB6MFAjUSMuV2YcFY 5tKACfoVRnLAl7w4jiuFosG KNjOLZ7f3nqUWuqnnIuQX9h ft3ytMw1o3afloLoKVNmSYC gnAQVNOUyL7WozRawAg5otT l9nSqtVtlkNCW1Rno7GK6ts d82oee8rDrrQITmqwlzKbL3 TRxzXQZuvxlpBJq5JJgjFXR wkJT0EDLtfFJmO6OxCSWgDY 9nkly8BJQ8WDgbXEZdNhD9E QZeuEOqXOHrdNmzNVete160 DTF7AtIgEX6rY6Jhv7R3rF4 maXRcZGVmdGFiNzIwXGZvcm 9uaTFaNGggd8ObKSU7gjF7w QLynVDvVTUpFnO3TWfmXD1l ko07LCSpTEZ5jd2sgTKoiSs gbsQadYSoUWmmR3DfWKYup5 89LBJrL1TtEUFqj9T4naSwU uHbPQLmoZR9gqJ5FDZsTU9y soqpg7sxUSliDXauOZBoolW 6wcT0AVKrcKObT3DwgX4vRF HaRL2qidqvq7prLBK5UUhiK OByBJW4HuZhCMZgy6Uktxu3 BzKsk5ZvwWQtCGzpA75hd22 2DWGlwuSoS7iyqNKirqmzeQ ZhfbywNPxjftO9ZFFxRPfbg bgkRUOiHMgfA3cbFsUcKFBs xLayKXzon0GuZBSrIBQqFoP jgFKbOYFkMqo9DCAomIImPT IpUlOcB5eompizYrORTWFfw 7dvU7czcZLTiCLaB6LcNFsz bpMoNHsiQHxzZBUoHUC5TA1 6VoapEMAjqb60 CPT Code(s) (test code x0mfxRKlDTMjcDV5QgNpQAP = 3357) qm6ckh2AozFZyjXMnDOhriD QpbyYrqt78iDU5uF94CX3jC RXyBlM7NKAlqcE4Osf1CKAp SFGmzKTiX337h7umh7gwxhU xlEJ4bHcyHIFbEWJlPHtgKM RdXlXaXUniCEZ5DEn4PxIfH HBhcn0= CLINICAL HISTORY (test c5pyiDGkHXAlbBC4SvOtHBE code = 3356) ot7fxr7PgnEJlpTWeCKurzD HrigLznw93eBG5aV64UL6eK ESsAbG2KSVnorN8Hod3MWQu HZAtrQZrV952z8ysx4owbhG pnVY2gImvQQJeMHTmHRpdER AwKxVpDPMnn5VxVOjiM89uk 2lzOiAgbGVmdCBjYXJvdGlk CTZ3EQ1cm0tlYADwuk2= SPECIMEN SOURCE (test p9hntRXfGCLjyYB2ZbEwMGJ code = 3377) ru5qhk1YayUWsnRBkHWjhyK YgvlDfmh84bYN9bG26YO4jK DYaOaU5GZVrkqB3Fld0ODAw MIAkpETkN217f6drk7phnvO pbAW7oJbvHKMeMDZiKBpsPJ ZzMjAgUGxhcXVlIFxwYXJ9 GROSS DESCRIPTION r4dwqCJzBDSwiFN8ZxGbGRQ (test code = 3366) qm2gcv9UhmSQdjPReQLxsoH GncpQuvn44eCJ6jV02FO2eO CHsMvT6TLUycoC3Rzs6MWGb DHIttIEoL880n8kiu3qkhbO haHJ9oIesLWJxSUIlEKgwYP GyRkTuObFpPZr2KPEsEnLkc 7fnfYMfCUdcJYE0pOHoGKAx AZMpYGPfPZ95P3NatkFeBUf eNUGoFZTdkO4pCM63zQMqye SdhzWgBtHjDLE3GLdkkONwg CBjYXJvdGlkIGFydGVyeSBw hBQzoGYpKHyyLNPuZp9dDKy pDf2nJBCsZQtnxiQweDyqwm VpaaAkcYVugJCzPsJ2MJdol 3cgcGxhcXVlIHRoYXQgZGlz vHknmEMkA8ZiS3xsoWGktTx ydw7zCSpqZHPgYDHdcHSbZZ ibXEFylgxcvTd5MRBxY3Dyx 81uNIO9ynEoSDCmCLvmMKK6 OYfpb1ltmK2kw7lcydBesST eS5QiL8vzmJQeWTFglcDxkr 4gVGhlIHNwZWNpbWVuIGlzI EN7Ed0rkQLoBNAovcNhqRPb TM59jUKknHpkQy7ulX69jI3 oCUKbN6GsA1szdSIszWiuva WyiuTCXL5uFHbHM1YpCBrfJ XJ9 MICROSCOPIC k1zzbJDaMOQcvJM7UmGsTTT DESCRIPTION (test code zc2xnl5NfcCTreHVoSUwjwC = 3371) RclbKwjh34uRH6kB86LW8zL SWtWpR6BDGeazK2Uky7BPWt PMQebEPtF114h4mxa1ezsnK eaTX5eBzuKLGkKXGcOEoeYG VuPqNuYPGwBj0vsGPrBRNyd n0= [facility] [id number] 18:50:00Surgical Pathology Report Case: [id number] Authorizing Provider: Juan Gallardo, Collected: 09/19/2020 02:54 PM OrderingLocation: [facility] Received: 09/19/2020 03:32 PM PERIOPERATIVE SERVICES Pathologist: Jarad Menchaca MD Specimen: Plaque, LEFT CAROTID ARTERY PLAQUE ARTERY, LEFT CAROTID, ENDARTERECTOMY:CALCIFIC ATHEROSCLEROTIC PLAQUE Signing Pathologist Direct Phone Line: [phone] signed by Jarad Menchaca MD on 09/23/2020 at 6:50 [id number]; [id number] diagnosis: left carotid stenosisPlaque Received fresh labeled with the patient's name, accession number and "plaque, left carotid artery plaque" is a 2.0 x 2.0 cm irregular fragment of yellow plaque that displays calcification. The specimen is serially sectioned to reveal a yellow homogeneous calcified center. The specimen is submitted in its entirety following decalcification in A1. JG/pl PerformedPOC- Glucose [id number] 11:48:00 Test Item Value Reference Range Interpretation Comments POC-Glucose Meter (test 208 mg/dL 70-110 H : TE STED AT [facility] code = 1538) [address] [place] [address], [facility] 30: Slimer/Techni ciara ID = [id number] for BERT CORONADO Lab Interpretation (test Abnormal code = 67151-9) [facility] [id number] 11:48:00 Test Item Value Reference Range Interpretation Comments POC-Glucose Meter (test 208 mg/dL 70-110 H : TE STED AT [facility] code = 1538) [address] [place] [address], [facility] 30: Slimer/Techni ciara ID = [id number] for IVONNE BERT Lab Interpretation (test Abnormal code = 44282-4) [facility]-GLUCOSE [id number] 11:48:00 Test Item Value Reference Range Interpretation Comments POC-GLUCOSE METER 208 mg/dL 70-110 H : TESTED A T [facility] 6720 (BEAKER) (test code = [facility], 1538) [address]154: Slimer/Techni ciara ID = [id number] for JULIETA VERGARA BERT POCT-GLUCOSE [id number] 08:17:00 Test Item Value Reference Range Interpretation Comments POC-GLUCOSE METER 183 mg/dL 70-110 H [facility] (test code = [facility], 1538) 27969: Slimer/Techni ciara ID = [id number] for JULIETA RDAN, BERT POC ACTIVATED CLOTTING [id number] 06:23:00 Test Item Value Reference Range Interpretation Comments Activated Clotting Time 241 sec : 74 -137 seconds, (test code = 441) Baseline: TESTED AT [address], 770 30: Slimer/Techni ciara ID = [id number] for CAST RO, NAT [facility] ACTIVATED CLOTTING [id number] 06:23:00 Test Item Value Reference Range Interpretation Comments Activated Clotting Time 241 sec : 74 -137 seconds, (test code = 441) Baseline: TESTED AT [address], 770 30: Slimer/Techni ciara ID = [id number] for CAST RO, NAT [facility]-[id number] 06:23:00 Test Item Value Reference Range Interpretation Comments ACTIVATED CLOTTING TIME 241 sec : 74 -137 seconds, (BEAKER) (test code = Baseli ne: TESTED AT 441) [address], 770 30: Slimer/Techni ciara ID = [id number] for CA STRO, NAT [id number] 06:23:00 Test Item Value Reference Range Interpretation Comments ACTIVATED CLOTTING TIME 224 sec : 74 -137 seconds, (BEAKER) (test code = Baseli ne: TESTED AT 441) [address], [facility] 30: Slimer/Techni ciara ID = [id number] for CA STRO, NAT CBC with platelet count + automated [id number] 01:08:00 Test Item Value Reference Range Interpretation Comments WBC (test code = 6690-2) 12.8 See_Comment H [A utomated message] The system c-crowd generated this result transmitted ref erence range: 3.5 - 10 .5 K/L. The refe rence range was not u sed to interpret this result as normal/abnor mal. RBC (test code = 789-8) 3.64 See_Comment L [Au tomated message] The system c-crowd generated this result transmitted ref erence range: 3.93 - 5 .22 M/L. The refe rence range was not u sed to interpret this result as normal/abnor mal. MCHC (test code = 786-4) 30.3 See_Comment L [A utomated message] The system c-crowd generated this result transmitted ref erence range: [...] See_Comment [Aut omated message] 777-3) The system c-crowd generated this result transmitted ref erence range: 150 - 45 0 K/CU MM. The referen ce range was not u sed to interpret this result as normal/abnor mal. MPV (test code = 10.5 fL 9.4-12.3 77596-8) nRBC (test code = 413) 0 See_Comment [Aut omated message] The system c-crowd generated this result transmitted ref erence range: [...] H [Aut omated message] 670) The system c-crowd generated this result transmitted ref erence range: 1.56 - 6 .13 K/L. The refe rence range was not u sed to interpret this result as normal/abnor mal. # Lymphs (test code = 1.06 See_Comment L [Auto mated message] 414) The system c-crowd generated this result transmitted ref erence range: 1.18 - 3 .74 K/L. The refe rence range was not u sed to interpret this result as normal/abnor mal. # Monos (test code = 0.20 See_Comment L [Autom ated message] 415) The system c-crowd generated this result transmitted ref erence range: 0.24 - 0 .36 K/L. The refe rence range was not u sed to interpret this result as normal/abnor mal. # Eos (test code = 416) 0.00 See_Comment L [Au tomated message] The system c-crowd generated this result transmitted ref erence range: 0.04 - 0 .36 K/L. The refe rence range was not u sed to interpret this result as normal/abnor mal. # Baso (test code = 417) 0.03 See_Comment [A utomated message] The system c-crowd generated this result transmitted ref erence range: 0.01 - 0 .08 K/L. The refe rence range was not u sed to interpret this result as normal/abnor mal. Immature 1 % 0-1 Granulocytes-Relative (test code = 2801) Lab Interpretation (test Abnormal code = 91314-0) [facility] with platelet count + automated [id number] 01:08:00 Test Item Value Reference Range Interpretation Comments WBC (test code = 6690-2) 12.8 See_Comment H [A utomated message] The system c-crowd generated this result transmitted ref erence range: 3.5 - 10 .5 K/L. The refe rence range was not u sed to interpret this result as normal/abnor mal. RBC (test code = 789-8) 3.64 See_Comment L [Au tomated message] The system c-crowd generated this result transmitted ref erence range: 3.93 - 5 .22 M/L. The refe rence range was not u sed to interpret this result as normal/abnor mal. MCHC (test code = 786-4) 30.3 See_Comment L [A utomated message] The system c-crowd generated this result transmitted ref erence range: [...] code = 299 See_Comment [Aut omated message] 857-3) The system c-crowd generated this result transmitted ref erence range: 150 - 45 0 K/CU MM. The referen ce range was not u sed to interpret this result as normal/abnor mal. MPV (test code = 10.5 fL 9.4-12.3 26380-5) nRBC (test code = 413) 0 See_Comment [Aut omated message] The system c-crowd generated this result transmitted ref erence range: [...] H [Aut omated message] 670) The system c-crowd generated this result transmitted ref erence range: 1.56 - 6 .13 K/L. The refe rence range was not u sed to interpret this result as normal/abnor mal. # Lymphs (test code = 1.06 See_Comment L [Auto mated message] 414) The system c-crowd generated this result transmitted ref erence range: 1.18 - 3 .74 K/L. The refe rence range was not u sed to interpret this result as normal/abnor mal. # Monos (test code = 0.20 See_Comment L [Autom ated message] 415) The system c-crowd generated this result transmitted ref erence range: 0.24 - 0 .36 K/L. The refe rence range was not u sed to interpret this result as normal/abnor mal. # Eos (test code = 416) 0.00 See_Comment L [Au tomated message] The system c-crowd generated this result transmitted ref erence range: 0.04 - 0 .36 K/L. The refe rence range was not u sed to interpret this result as normal/abnor mal. # Baso (test code = 417) 0.03 See_Comment [A utomated message] The system [employer] generated this result transmitted ref erence range: 0.01 - 0 .08 K/L. The refe rence range was not u sed to interpret this result as normal/abnor mal. Immature 1 % 0-1 Granulocytes-Relative (test code = 2801) Lab Interpretation (test Abnormal code = 29683-7) [facility] W/PLT COUNT & AUTO [id number] 01:08:00 Test Item Value Reference Range Interpretation [...] (BEAKER) (test code = 2801) Basic Metabolic [id number] 00:56:00 Test Item Value Reference Range Interpretation [...] (test code = 8.2 mg/dL 8.4-10.2 L 69006-7) EGFR (test code = 75 mL/min/1.73 sq [place] [place] [address]-0) NOT ACCURATE CREATININE CLEARANCE IN PREDICTING GLOMERULAR FILTRATION RATE . ESTIMATED GFR I S NOT APPLICABLE FOR DIALYSIS PATIENTS. GABRIELA (test code = GABRIELA) Slimer ID - PIAYA L Lab Interpretation Abnormal (test code = 55498-1) [facility] Test Item Value Reference Range Interpretation Comments Magnesium (test code = 1.7 mg/dL 1.6-2.6 47726-0) GABRIELA (test code = GABRIELA) Slimer ID - PIAYA L Lab Interpretation (test Normal code = 94209-9) [facility]00 Test Item Value Reference Range Interpretation Comments Phosphorus (test code = 3.7 mg/dL 2.3-4.7 2777-1) GABRIELA (test code = GABRIELA) Slimer ID - PIAYA L Lab Interpretation (test Normal code = 17216-8) [facility] [id number] 00:56:00 Test Item Value Reference Range Interpretation [...] (test code = 8.2 mg/dL 8.4-10.2 L 54913-9) EGFR (test code = 75 mL/min/1.73 sq [place] [place] [address]-9) NOT ACCURATE CREATININE CLEARANCE IN PREDICTING GLOMERULAR FILTRATION RATE . ESTIMATED GFR I S NOT APPLICABLE FOR DIALYSIS PATIENTS. GABRIELA (test code = GABRIELA) Slimer ID - PIAYA L Lab Interpretation Abnormal (test code = 89496-5) [facility]00 Test Item Value Reference Range Interpretation Comments Magnesium (test code = 1.7 mg/dL 1.6-2.6 82076-1) GABRIELA (test code = GABRIELA) Slimer ID - PIAYA L Lab Interpretation (test Normal code = 85268-7) [facility]:00 Test Item Value Reference Range Interpretation Comments Phosphorus (test code = 3.7 mg/dL 2.3-4.7 2777-1) GABRIELA (test code = GABRIELA) Slimer ID - PIAYA L Lab Interpretation (test Normal code = 29541-1) [facility] [id number] 00:56:00 Test Item Value Reference Range Interpretation Comments SODIUM (BEAKER) 134 meq/L 136-145 L (test code = 381) POTASSIUM (BEAKER) 3.9 meq/L 3.5-5.1 (test code = 379) CHLORIDE (BEAKER) 104 meq/L 98-107 (test code = 382) CO2 (BEAKER) (test 23 meq/L -29 code = 355) BLOOD UREA NITROGEN 10 [...] S NOT APPLICABLE FOR DIALYSIS PATIEN TS. Slimer ID - PITUAN [id number] 00:56:00 Test Item Value Reference Range Interpretation Comments MAGNESIUM (BEAKER) (test code = 1.7 mg/dL 1.6-2.6 627) Slimer ID - FARHAD [id number] 00:56:00 Test Item Value Reference Range Interpretation Comments PHOSPHORUS (BEAKER) (test code = 3.7 mg/dL 2.3-4.7 604) Slimer ID - PITUAN LCalcium, [id number] 00:31:00 Test Item Value Reference Range Interpretation Comments Calcium, Ion (test code = 1993-) 1.18 mmol/L 1.12-1.27 pH, Blood (test code = 97278-3) 7.39 [facility] [id number] 00:31:00 Test Item Value Reference Range Interpretation Comments Calcium, Ion (test code = 1993-) 1.18 mmol/L 1.12-1.27 pH, Blood (test code = 34694-1) 7.39 [facility], [id number] 00:31:00 Test Item Value Reference Range Interpretation Comments CALCIUM IONIZED (BEAKER) (test 1.18 mmol/L 1.12-1.27 code = 698) PH, BLOOD (BEAKER) (test code = 7.39 1810) [id number] 10:46:00 Test Item Value Reference Range Interpretation Comments PTT (test code = 95840-3) 27.9 See_Comment [ Automated message] The system [employer] generated this result transmitted ref erence range: 22.5 - 3 6.0 seconds. The re ference range was not u sed to interpret this result as normal/abnor mal. Lab Interpretation (test Normal code = 65512-4) [facility] 10:46:00 Test Item Value Reference Range Interpretation Comments PTT (test code = 97201-0) 27.9 See_Comment [ Automated message] The system [employer] generated this result transmitted ref erence range: 22.5 - 3 6.0 seconds. The re ference range was not u sed to interpret this result as normal/abnor mal. Lab Interpretation (test Normal code = 84989-6) [facility] 10:46:00 Test Item Value Reference Range Interpretation Comments PARTIAL THROMBOPLASTIN TIME 27.9 seconds 22.5-36.0 (BEAKER) (test code = 760) Prothrombin time/[id number] 10:45:00 Test Item Value Reference Interpretation Comments [...] valves. Lab Interpretation Normal (test code = 09461-0) [facility] HospitalProthrombin time/[id number] 10:45:00 Test Item Value Reference Interpretation Comments Range Protime (test code = 13.4 See_Comment [Autom ated 5902-2) message] The system which generated this result transmitted reference range : 11.9 - 14.2 seconds. The reference range was not used to interpret this result as normal/abnormal . INR (test code = 1.05 See_Comment [Automated 9211-6) message] The system which generated this result [...] valves. Lab Interpretation Normal (test code = 27057-0) [facility] HospitalPROTHROMBIN TIME/[id number] 10:45:00 Test Item Value Reference Range Interpretation Comments PROTIME (YECENIA) (test code = 13.4 seconds 11.9-14.2 759) INR (BEAKER) (test code = 370) 1.05 <=5.90 Effective 03/11/2019: PT Reference Range ChangeNew: 11.9-14.2 Previous: 11.7- 14.7RECOMMENDED COUMADIN/WARFARIN INR THERAPY RANGESSTANDARD DOSE: 2.0-3.0 Includes: PROPHYLAXIS for venous thrombosis, systemic embolization; TREATMENT for venous thrombosis and/or pulmonary embolus.HIGH RISK: Target INR is2.5-3.5 for patients wiht mechanical heart valves.POCT-GLUCOSE [id number] 09:19:00 Test Item Value Reference Range Interpretation Comments POC-GLUCOSE METER 187 mg/dL 70-110 H : TESTED A T [facility] 6720 (YECENIA) (test code = [place]ENDIRA [place], 1538 [address]: Slimer/Techni ciara ID = [id number] for Jojo Rivers ECG 12 [id number] 12:51:19Interface, External Ris In - 09/14/2020 12:51 PM CSTVentricular Rate 65 BPMAtrial Rate 65 BPMP-R Interval 154 msQRS Duration 78 msQ-T Interval 442 msQTC Calculation(Bazett) 459 msP [place] 5 degreesR Axis77 degreesT [place] 66 degreesNormal sinus rhythmNonspecific T wave abnormalityProlonged QTWhen compared with ECG of 02-AUG-2019 06:01,Premature ventricular complexes are no longer PresentConfirmed by Daksha NICHOLE, MOLLY ([id number]) on 09/14/2020 12:51:17 [facility] [id number] 12:51:19Interface, External Ris In - 09/14/2020 12:51 PM CSTVentricular Rate 65 BPMAtrial Rate 65 BPMP-R Interval 154 msQRS Duration 78 msQ-T Interval 442 msQTC Calculation(Bazett) 459 msP [place] 5 degreesR Axis77 degreesT [place] 66 degreesNormal sinus rhythmNonspecific T wave abnormalityProlonged QTWhen compared with ECG of 02-AUG-2019 06:01,Premature ventricular complexes are no longer PresentConfirmed by Daksha NICHOLE, MOLLY ([id number]) on 09/14/2020 12:51:17 [facility], [id number] 16:42:00 Test Item Value Reference Range Interpretation Comments ABO Grouping (test code = 2588) A Rh Factor (test code = 2589) POS [facility], [id number] 16:42:00 Test Item Value Reference Range Interpretation Comments ABO Grouping (test code = 2588) A Rh Factor (test code = 2589) POS [facility] HospitalType and screen, [id number] 16:36:00 Test Item Value Reference Range Interpretation Comments Ab Scrn (test code = 890-4) NEGATIVE echo2 [facility] HospitalType and screen, [id number] 16:36:00 Test Item Value Reference Range Interpretation Comments Ab Scrn (test code = 890-4) NEGATIVE echo2 [facility] HospitalBASIC METABOLIC [id number] 15:32:00 Test Item Value Reference Range Interpretation [...] S NOT APPLICABLE FOR DIALYSIS PATIEN TS. Slimer ID - ADMINPROTHROMBIN TIME/[id number] 15:29:00 Test Item Value Reference Range Interpretation [...] mechanical heart valves.CBC W/PLT COUNT & AUTO [id number] 15:17:00 Test Item Value Reference Range Interpretation [...] (BEAKER) (test code = 2801) BASIC METABOLIC [id number] 06:24:00 Test Item Value Reference Range Interpretation [...] 0-0 (BEAKER) (test code = 413) POCT-GLUCOSE [id number] 21:22:00 Test Item Value Reference Range Interpretation Comments POC-GLUCOSE METER 138 mg/dL 70-110 H TESTED AT [facility] 6720 (BEAKER) (test code = ERENDIRA [place] 1538) [address] POCT-GLUCOSE [id number] 17:38:00 Test Item Value Reference Range Interpretation Comments POC-GLUCOSE METER 131 mg/dL 70-110 H TESTED AT [facility] 6720 (BEAKER) (test code = ERENDIRA [place] 1538) [address] BASIC METABOLIC [id number] 06:07:00 Test Item Value Reference Range Interpretation [...] 1092) DATA TO CALCULA TE ESTIMATED GFR. [id number] 06:04:00 Test Item Value Reference Range Interpretation [...] H (BEAKER) (test code = 413) POCT-GLUCOSE [id number] 23:10:00 Test Item Value Reference Range Interpretation Comments POC-GLUCOSE METER 127 mg/dL 70-110 H TESTED AT [facility] 6720 (BEAKER) (test code = REENDIRA Guzman [place] 1538) [address] POCT-GLUCOSE [id number] 12:36:00 Test Item Value Reference Range Interpretation Comments POC-GLUCOSE METER 157 mg/dL 70-110 H TESTED AT [facility] 6720 (BEAKER) (test code = ERENDIRA Guzman [place] 1538) [address] CBC (HEMOGRAM ONLY)2019-08-02 06:03:00 Test Item Value [...] (BEAKER) (test code = 413) BASIC METABOLIC [id number] 05:47:00 Test Item Value Reference Range Interpretation [...] 1092) DATA TO CALCULA TE ESTIMATED GFR. [id number] 05:46:00 Test Item Value Reference Range Interpretation Comments PHOSPHORUS (BEAKER) (test code = 2.5 mg/dL 2.3-4.7 604) [id number] 05:46:00 Test Item Value Reference Range Interpretation Comments MAGNESIUM (BEAKER) (test code = 2.1 mg/dL 1.6-2.6 627) POCT-GLUCOSE [id number] 20:47:00 Test Item Value Reference Range Interpretation Comments POC-GLUCOSE METER 164 mg/dL 70-110 H TESTED AT [place] [address] (BEAKER) (test code = ERENDIRA [place] 1538) [address] POCT-GLUCOSE [id number] 17:38:00 Test Item Value Reference Range Interpretation Comments POC-GLUCOSE METER 194 mg/dL 70-110 H TESTED AT [place] [address] (BEAKER) (test code = ERENDIRA Guzman [place] 1538) [address] POCT-GLUCOSE [id number] 07:51:00 Test Item Value Reference Range Interpretation Comments POC-GLUCOSE METER 157 mg/dL 70-110 H TESTED AT [facility] 6720 (BEAKER) (test code = ERENDIRA [place] 1538) [address] HEMOGLOBIN [id number] 07:51:00 Test Item Value Reference Range Interpretation Comments HEMOGLOBIN A1C (BEAKER) (test code = 8.6 % 4.3-6.1 H 368) BASIC METABOLIC [id number] 06:11:00 Test Item Value Reference Range Interpretation [...] 1092) DATA TO CALCULA TE ESTIMATED GFR. [id number] 06:10:00 Test Item Value Reference Range Interpretation Comments PHOSPHORUS (BEAKER) (test code = 1.9 mg/dL 2.3-4.7 L 604) [id number] 06:10:00 Test Item Value Reference Range Interpretation [...] 0-0 (AKER) (test code = 413) POCT-GLUCOSE [id number] 22:07:00 Test Item Value Reference Range Interpretation Comments POC-GLUCOSE METER 175 mg/dL 70-110 H TESTED AT [place] [address] ([facility]) (test code = ERENDIRA Guzman [facility] 1538) [address] POCT-GLUCOSE [id number] 18:30:00 Test Item Value Reference Range Interpretation Comments POC-GLUCOSE METER 225 mg/dL 70-110 H TESTED AT [place] [address] ([facility]) ([facility] 1538[facility] [address] POCT-GLUCOSE [id number] 12:17:00 Test Item Value Reference Range Interpretation Comments POC-GLUCOSE METER 170 mg/dL 70-110 H TESTED AT [place] [address] ([facility]) (test code = [facility] Thomas [facility] 1538) [address] POCT-GLUCOSE [id number] 08:20:00 Test Item Value Reference Range Interpretation Comments POC-GLUCOSE METER 161 mg/dL 70-110 H TESTED AT [place] [address] ([facility]) (test code = [facility] Thomas [facility] 1538) [address] BASIC METABOLIC [id number] 08:18:00 Test Item Value Reference Range Interpretation [...] 1092) DATA TO CALCULA TE ESTIMATED GFR. [id number] 08:15:00 Test Item Value Reference Range Interpretation Comments MAGNESIUM (BEAKER) 1.9 mg/dL 1.6-2.6 Specimen slightly (test code = 627) hemolyzed [id number] 08:15:00 Test Item Value Reference Range Interpretation Comments PHOSPHORUS (BEAKER) 2.3 mg/dL 2.3-4.7 Specimen slightly (test code = 604) hemolyzed RAD, CHEST, 1 VIEW, NON [id number] 07:56:00Reason for exam:->post-op cardiac surgeryShould this be [...] MDReport Verified Date/Time: 07/31/2019 07:56:15 Reading Location: [facility] Reading Room [id number] 07:25:00 Test Item Value Reference Range Interpretation [...] 0-0 (BEAKER) (test code = 413) POCT-GLUCOSE [id number] 21:32:00 Test Item Value Reference Range Interpretation Comments POC-GLUCOSE METER 168 mg/dL 70-110 H TESTED AT [facility] 6720 ([facility]) (test code = ERENDIRA [place] 1538) [address] POCT-GLUCOSE [id number] 17:55:00 Test Item Value Reference Range Interpretation Comments POC-GLUCOSE METER 172 mg/dL 70-110 H TESTED AT [place] [address] (BEAKER) (test code = ERENDIRA Guzman [facility] 1538) [address] POCT-GLUCOSE [id number] 15:34:00 Test Item Value Reference Range Interpretation Comments POC-GLUCOSE METER 152 mg/dL 70-110 H TESTED AT [place] [address] (BEAKER) (test code = BRIGIDAWV Thomas [facility] 1538) [address] POCT-GLUCOSE [id number] 12:52:00 Test Item Value Reference Range Interpretation Comments POC-GLUCOSE METER 222 mg/dL 70-110 H TESTED AT [place] [address] (BEAKER) (test code = [facility] Thomas [facility] 1538) [address] POCT-GLUCOSE [id number] 07:19:00 Test Item Value Reference Range Interpretation Comments POC-GLUCOSE METER 185 mg/dL 70-110 H TESTED AT [place] [address] (BEAKER) (test code = ERENDIRA Guzman [facility] 1538) [address] [id number] 06:16:00 Test Item Value Reference Range Interpretation Comments ACTIVATED CLOTTING TIME 109 sec Refe rence Range: (BEAKER) (test code = 74-137 seconds, 441) Baseline/TESTED AT [address] [address] [id number] 06:16:00 Test Item Value Reference Range Interpretation Comments ACTIVATED CLOTTING TIME 543 sec Refe rence Range: (BEAKER) (test code = 74-137 seconds, 441) Baseline/TESTED AT [address] [address] [id number] 06:16:00 Test Item Value Reference Range Interpretation Comments ACTIVATED CLOTTING TIME 510 sec Refe rence Range: (BEAKER) (test code = 74-137 seconds, 441) Baseline/TESTED AT [address] [address] BASIC METABOLIC [id number] 06:04:00 Test Item Value Reference Range Interpretation [...] 1092) DATA TO CALCULA TE ESTIMATED GFR. [id number] 06:02:00 Test Item Value Reference Range Interpretation Comments PHOSPHORUS (BEAKER) (test code = 3.7 mg/dL 2.3-4.7 604) [id number] 06:02:00 Test Item Value Reference Range Interpretation Comments MAGNESIUM (BEAKER) (test code = 2.0 mg/dL 1.6-2.6 627) [id number] 05:57:00 Test Item Value Reference Range Interpretation [...] is2.5-3.5 for patients wiht mechanical heart valves.PROTHROMBIN TIME/[id number] 05:56:00 Test Item Value Reference Range Interpretation [...] is2.5-3.5 for patients wiht mechanical heart valves.CALCIUM, [id number] 05:55:00 Test Item Value Reference Range Interpretation Comments CALCIUM IONIZED (BEAKER) (test 1.17 mmol/L 1.12-1.27 code = 698) PH, BLOOD (BEAKER) (test code = 7.38 1810) CBC W/PLT COUNT & AUTO [id number] 05:55:00 Test Item Value Reference Range Interpretation [...] (BEAKER) (test code = 2801) OXYGEN SATURATION, [id number] 05:49:00 Test Item Value Reference Range Interpretation Comments O2 SATURATION (MEASURED) (BEAKER) 77.2 % (test code = 1455) RAD, CHEST, 1 VIEW, NON [id number] 05:35:00Reason for exam:->post-op cardiac surgeryShould this be [...] Signed: Hortencia Brand Verified Date/Time: 07/30/2019 05:35:16 [id number] 18:41:00 Test Item Value Reference Range Interpretation Comments POTASSIUM (BEAKER) (test code = 4.2 meq/L 3.5-5.1 379) PRN - repeat potassium levels every 1 hour until glucose level is less than 450 mg/dLPOCT-GLUCOSE [id number] 18:14:00 Test Item Value Reference Range Interpretation Comments POC-GLUCOSE METER 175 mg/dL 70-110 H TESTED AT [facility] 67 ([facility]) (test code = [facility] 1538) [address] BLOOD GAS, [id number] 16:57:00 Test Item Value Reference Range Interpretation [...] (test code = 1819) 40.0 % HEMOGLOBIN [id number] 16:17:00 Test Item Value Reference Range Interpretation Comments HEMOGLOBIN A1C (BEAKER) (test code = 9.5 % 4.3-6.1 H 368) PLATELET AGGREGATION: FUNCTION [id number] 15:15:00 Test Item Value Reference Range Interpretation Comments [id number] Giovanni Tee M.D. ([facility]) (test code = (electonic signature) 0804) PLATELET COUNT AGG 273 K/CU MM 150-450 [...] be falsely low with platelet counts<75,000/cu mm.POCT-GLUCOSE [id number] 15:07:00 Test Item Value Reference Range Interpretation Comments POC-GLUCOSE METER 125 mg/dL 70-110 H TESTED AT [facility] 6720 ([facility]) (test code = [facility] 1538) [address] POCT-GLUCOSE [id number] 14:26:00 Test Item Value Reference Range Interpretation Comments POC-GLUCOSE METER 85 mg/dL 70-110 TESTED AT [place] [address] ([facility]) (test code = ERENDIRA Guzman [facility] [address]38) POCT-GLUCOSE [id number] 14:14:00 Test Item Value Reference Range Interpretation Comments POC-GLUCOSE METER 88 mg/dL 70-110 TESTED AT [place] [address] ([facility]) (test code = ERENDIRA Guzman [facility] [address]38) RAD, CHEST, 1 VIEW, NON [id number] 13:11:00Reason for exam:->Status post CV Surgery post [...] Akbar MDReport VerifiedDate/Time: 07/29/2019 13:11:13 Reading Location: [facility] Reading Room POCT-GLUCOSE METER 2019-07-29 13:00:00 Test Item Value Reference Range Interpretation Comments POC-GLUCOSE METER 132 mg/dL 70-110 H TESTED AT [facility] 67 ([facility]) (test code = ERENDIRA Guzman [facility] 1538) [address] BASIC METABOLIC [id number] 12:28:00 Test Item Value Reference Range Interpretation [...] 1092) DATA TO CALCULA TE ESTIMATED GFR. [id number] 12:27:00 Test Item Value Reference Range Interpretation Comments PHOSPHORUS (BEAKER) (test code = 2.3 mg/dL 2.3-4.7 604) [id number] 12:27:00 Test Item Value Reference Range Interpretation Comments MAGNESIUM (BEAKER) (test code = 2.6 mg/dL 1.6-2.6 627) [id number] 12:26:00 Test Item Value Reference Range Interpretation Comments PARTIAL THROMBOPLASTIN TIME 27.4 seconds 22.5-36.0 (BEAKER) (test code = 760) PROTHROMBIN [id number] 12:25:00 Test Item Value Reference Range Interpretation [...] for patients wiht mechanical heart valves.LACTIC ACID, [id number] 12:21:00 Test Item Value Reference Range Interpretation Comments LACTATE BLOOD ARTERIAL (2) 1.2 mmol/L 0.5-2.2 (BEAKER) (test code = 2874) CBC W/PLT COUNT & AUTO [id number] 12:08:00 Test Item Value Reference Range Interpretation [...] PERCENT (BEAKER) (test code = 2801) CALCIUM, [id number] 12:04:00 Test Item Value Reference Range Interpretation Comments CALCIUM IONIZED (BEAKER) (test 1.15 mmol/L 1.12-1.27 code = 698) PH, BLOOD (BEAKER) (test code = 7.44 1810) BLOOD GAS, [id number] 12:03:00 Test Item Value Reference Range Interpretation [...] code = 1819) 60.0 % OXYGEN SATURATION, [id number] 12:00:00 Test Item Value Reference Range Interpretation Comments O2 SATURATION (MEASURED) (BEAKER) 66.6 % (test code = 1455) For occult [id number] 11:53:00 Test Item Value Reference Range Interpretation Comments PHOSPHORUS (BEAKER) (test code = 2.9 mg/dL 2.3-4.7 604) CALCIUM, [id number] 10:32:00 Test Item Value Reference Range Interpretation Comments CALCIUM IONIZED (BEAKER) (test 1.03 mmol/L 1.12-1.27 L code = 698) PH, BLOOD (BEAKER) (test code = 7.33 1810) BLOOD GAS, [id number] 10:31:00 Test Item Value Reference Range Interpretation [...] code = 1819) 100.0 % SODIUM NA-STAT [id number] 10:31:00 Test Item Value Reference Range Interpretation Comments SODIUM (BEAKER) (test code = 381) 133 meq/L 135-148 L GLUCOSE-STAT [id number] 10:31:00 Test Item Value Reference Range Interpretation Comments GLUCOSE RANDOM (BEAKER) (test code 226 mg/dL 70-110 H = 652) HGB/HCT (H&H) - STAT [id number] 10:31:00 Test Item Value Reference Range Interpretation Comments HEMOGLOBIN (BEAKER) (test code = 8.0 g/dL 12.0-15.0 L 410) HEMATOCRIT (BEAKER) (test code = 24.0 % 36.0-45.0 L 411) POTASSIUM-STAT [id number] 10:30:00 Test Item Value Reference Range Interpretation Comments POTASSIUM (BEAKER) (test code = 4.2 meq/L 3.6-5.5 379) BLOOD GAS, [id number] 10:05:00 Test Item Value Reference Range Interpretation [...] code = 1819) 80.0 % SODIUM NA-STAT [id number] 10:05:00 Test Item Value Reference Range Interpretation Comments SODIUM (BEAKER) (test code = 381) 127 meq/L 135-148 L POTASSIUM-STAT [id number] 10:05:00 Test Item Value Reference Range Interpretation Comments POTASSIUM (BEAKER) (test code = 5.9 meq/L 3.6-5.5 H 379) GLUCOSE-STAT [id number] 10:05:00 Test Item Value Reference Range Interpretation Comments GLUCOSE RANDOM (BEAKER) (test code 241 mg/dL 70-110 H = 652) HGB/HCT (H&H) - STAT [id number] 10:05:00 Test Item Value Reference Range Interpretation Comments HEMOGLOBIN (BEAKER) (test code = 8.0 g/dL 12.0-15.0 L 410) HEMATOCRIT (BEAKER) (test code = 24.0 % 36.0-45.0 L 411) BLOOD GAS, [id number] 09:51:00 Test Item Value Reference Range Interpretation [...] code = 1819) 80.0 % SODIUM NA-STAT [id number] 09:51:00 Test Item Value Reference Range Interpretation Comments SODIUM (BEAKER) (test code = 381) 130 meq/L 135-148 L GLUCOSE-STAT [id number] 09:51:00 Test Item Value Reference Range Interpretation Comments GLUCOSE RANDOM (BEAKER) (test code 249 mg/dL 70-110 H = 652) HGB/HCT (H&H) - STAT [id number] 09:51:00 Test Item Value Reference Range Interpretation Comments HEMOGLOBIN (BEAKER) (test code = 8.1 g/dL 12.0-15.0 L 410) HEMATOCRIT (BEAKER) (test code = 24.0 % 36.0-45.0 L 411) POTASSIUM-STAT [id number] 09:50:00 Test Item Value Reference Range Interpretation Comments POTASSIUM (BEAKER) (test code = 5.4 meq/L 3.6-5.5 379) BLOOD GAS, [id number] 09:23:00 Test Item Value Reference Range Interpretation [...] code = 1819) 100.0 % SODIUM NA-STAT [id number] 09:23:00 Test Item Value Reference Range Interpretation Comments SODIUM (BEAKER) (test code = 381) 132 meq/L 135-148 L GLUCOSE-STAT [id number] 09:23:00 Test Item Value Reference Range Interpretation Comments GLUCOSE RANDOM (BEAKER) (test code 164 mg/dL 70-110 H = 652) CALCIUM, [id number] 09:23:00 Test Item Value Reference Range Interpretation Comments CALCIUM IONIZED (BEAKER) (test 1.05 mmol/L 1.12-1.27 L code = 698) PH, BLOOD (BEAKER) (test code = 7.44 1810) POTASSIUM-STAT [id number] 09:22:00 Test Item Value Reference Range Interpretation Comments POTASSIUM (BEAKER) (test code = 4.0 meq/L 3.6-5.5 379) HGB/HCT (H&H) - STAT [id number] 09:22:00 Test Item Value Reference Range Interpretation Comments HEMOGLOBIN (BEAKER) (test code = 12.2 g/dL 12.0-15.0 410) HEMATOCRIT (BEAKER) (test code = 36.0 % 36.0-45.0 411) RAD, CHEST, 1 VIEW, NON [id number] 07:12:00Reason for exam:->preopShould this be performed at the bedside?->YesFINAL REPORT INDICATION: preop COMPARISON: None TECHNIQUE: Single frontal view of the chest. FINDINGS: Lungs and pleura: Clear lungs. No effusion.Heart and mediastinum: Normal heart size. Unremarkable mediastinal contours.Osseous structures: No acute abnormality.Other: None. IMPRESSION: No acute intrathoracic abnormality. Signed: Deirdre De Jesus MDReport Verified Date/Time: 07/29/2019 07:12:45 [id number] 07:01:00 Test Item Value Reference Range Interpretation Comments PARTIAL THROMBOPLASTIN TIME 31.2 seconds 22.5-36.0 (BEAKER) (test code = 760) BASIC METABOLIC [id number] 05:57:00 Test Item Value Reference Range Interpretation [...] 1092) DATA TO CALCULA TE ESTIMATED GFR. [id number] 05:51:00 Test Item Value Reference Range Interpretation Comments MAGNESIUM (BEAKER) (test code = 1.9 mg/dL 1.6-2.6 627) [id number] 05:35:00 Test Item Value Reference Range Interpretation [...] is2.5-3.5 for patients wiht mechanical heart valves.PROTHROMBIN [id number] 05:34:00 Test Item Value Reference Range Interpretation [...] mechanical heart valves.CBC W/PLT COUNT & AUTO [id number] 05:24:00 Test Item Value Reference Range Interpretation [...] % 0-1 PERCENT (BEAKER) (test code = 5636)
[2022-02-27] MEDS ORDERED: IBUPROFEN 400 MG TAB ONE (17:44)
--- NOTE | 2022-02-27 17:59 | ER ---
Nurse's Notes [facility] Name: Ivet Calderon Age: 71 yrs Sex: Female : 1950 Arrival Date: 02/27/2022 Time: 15:44 Bed DIS4 Private MD: Shant Lao Diagnosis: Acute pharyngitis, unspecified Presentation: 02/27 16:05 Chief complaint: Patient states: sore throat and fever that started this morning. ww Coronavirus screen: Client denies travel out of the [place] in the last 14 days. Ebola Screen: Patient denies travel to an Ebola-affected area in the 21 days before illness onset. Initial Sepsis Screen: Does the patient meet any 2 criteria? No. Patient's initial sepsis screen is negative. Does the patient have a suspected source of infection? No. Patient's initial sepsis screen is negative. Risk Assessment: Do you want to hurt yourself or someone else? Patient reports no desire to harm self or others. Onset of symptoms was February 27, 2022. 16:05 Method Of Arrival: Ambulatory 16:05 Acuity: DORYS 4 ww Historical: - Allergies: 16:09 Morphine (burning to IV site); ww - PMHx: 16:09 Diabetes - NIDDM; heart attack; Hypertension; ww - PSHx: 16:09 Appendectomy; open heart surgery; Cholecystectomy; ww - Immunization history:: Adult Immunizations up to date. - Social history:: Smoking status: Patient denies any tobacco usage or history of. Assessment: 17:00 General: Appears in no apparent distress. Behavior is calm, cooperative. Pain: iw Complains of pain in throat. Neuro: [place]gueta Agitation-Sedation Scale (RASS): Level of Consciousness is awake, alert, obeys commands, Oriented to person, place, time, situation, Moves all extremities. Respiratory: Airway is patent Respiratory effort is even, unlabored. EENT: Throat is reddened. Vital Signs: 16:05 BP 195 / 80; Pulse 100; Resp 20; Temp 99.3; Pulse Ox 97% ; Weight 75.3 kg; Height 5 ft. ww 1 in. (154.94 cm); Pain 3/10; 16:05 Body Mass Index 31.37 (75.30 kg, 154.94 cm) ww ED Course: 15:44 Patient arrived in ED. am2 15:44 Shant Lao DO is Private Physician. am2 16:09 Triage completed. ww 16:09 Arm band placed on. ww 16:10 COVID swab sent to lab. Flu and/or RSV swab sent to lab. Strep swab sent to lab. ww 16:22 [place] PA is PHCP. [facility] 16:22 Shankar Forbes MD is Attending Physician. [facility] 17:23 Tracie Barrios, RN is Primary Nurse. iw 18:05 No provider procedures requiring assistance completed. Patient did not have IV access iw during this emergency room visit. Administered Medications: 17:48 Drug: Ibuprofen 400 mg Route: PO; iw Outcome: 17:58 Discharge ordered by . [facility] 18:08 Discharged to home ambulatory. iw 18:08 Condition: good 18:08 Discharge instructions given to patient, Instructed on discharge instructions, follow up and referral plans. medication usage, Demonstrated understanding of instructions, follow-up care, medications, Prescriptions given X 1. 18:09 Patient left the ED. iw Signatures: [place] PA PA [facility] Tracie Barrios, RN RN Ml Villavicencio am2 Katarina Marroquin, RN RN
--- NOTE | 2022-02-27 17:59 | EDPHYS ---
Physician Documentation [facility] Name: Ivet Calderon Age: 71 yrs Sex: Female : 1950 Arrival Date: 02/27/2022 Time: 15:44 Bed DIS4 Private MD: Shant Lao ED Physician Shankar Forbes HPI: 02/27 17:44 This 71 yrs old Female presents to ER via Ambulatory with complaints of Sore jmm Throat, Fever. 17:44 The patient presents with sore throat. Onset: The symptoms/episode began/occurred jmm gradually, today. Modifying factors: The symptoms are alleviated by nothing, the symptoms are aggravated by nothing. Associated signs and symptoms: Pertinent positives: cough, fever, headache. The patient has experienced similar episodes in the past. Historical: - Allergies: 16:09 Morphine (burning to IV site); ww - PMHx: 16:09 Diabetes - NIDDM; heart attack; Hypertension; ww - PSHx: 16:09 Appendectomy; open heart surgery; Cholecystectomy; ww - Immunization history:: Adult Immunizations up to date. - Social history:: Smoking status: Patient denies any tobacco usage or history of. ROS: 17:44 Constitutional: Positive for body aches, chills, fatigue. jmm 17:44 ENT: Positive for sore throat. 17:44 Cardiovascular: Positive for 17:44 All other systems are negative. Exam: 17:44 Constitutional: This is a well developed, well nourished patient who is awake, alert, jmm and in no acute distress. Head/Face: atraumatic. Eyes: EOMI, no conjunctival erythema appreciated 17:44 Cardiovascular: Regular rate and rhythm. No edema appreciated Respiratory: Normal respirations, no respiratory distress appreciated Abdomen/GI: Non distended, soft Back: Normal ROM Skin: General appearance color normal MS/ Extremity: Moves all extremities, no obvious deformities appreciated, no edema noted to the lower extremities Neuro: Awake and alert Psych: Behavior is normal, Mood is normal, Patient is cooperative and pleasant 17:44 ENT: Posterior pharynx: erythema, that is mild. Vital Signs: 16:05 BP 195 / 80; Pulse 100; Resp 20; Temp 99.3; Pulse Ox 97% ; Weight 75.3 kg; Height 5 ft. ww 1 in. (154.94 cm); Pain 3/10; 16:05 Body Mass Index 31.37 (75.30 kg, 154.94 cm) ww MDM: 16:40 Patient medically screened. [facility] 17:45 Data reviewed: vital signs, nurses notes. Counseling: I had a detailed discussion with jm the patient and/or guardian regarding: the historical points, exam findings, and any diagnostic results supporting the discharge/admit diagnosis, the need for outpatient follow up, to return to the emergency department if symptoms worsen or persist or if there are any questions or concerns that arise at home. 17:58 Counseling: I had a detailed discussion with the patient and/or guardian regarding: lab jmm results. 02/27 16:10 Order name: Influenza Screen (a \T\ B); Complete Time: 16:54 ww 02/27 16:10 Order name: Strep; Complete Time: 16:54 ww 02/27 16:50 Order name: SARS-COV-2 RT PCR; Complete Time: 17:41 EDMS 02/27 16:56 Order name: Throat Culture EDMS Administered Medications: 17:48 Drug: Ibuprofen 400 mg Route: PO; Disposition Summary: 02/27/22 17:58 Discharge Ordered Location: Home [facility] Condition: Stable [facility] Diagnosis - Acute pharyngitis, unspecified [facility] Followup: jm - With: Private Physician - When: 2 - 3 days - Reason: Recheck today's complaints, Continuance of care, Re-evaluation by your physician Discharge Instructions: - Discharge Summary Sheet [facility] - Pharyngitis [facility] Forms: - Medication Reconciliation Form [facility] - Thank You Letter [facility] - Antibiotic Education [facility] - Prescription Opioid Use [facility] Prescriptions: - cefdinir 300 mg Oral capsule - take 1 capsule by ORAL route every 12 hours for 10 days; 20 capsule; Refills: [facility] 0, Product Selection Permitted Signatures: Dispatcher [employer] EDMS Shankar Forbes MD MD cha Mickail, Joel, PA PA jmm Williams, Irene, RN RN iw Wood, Whitney, RN RN ww Corrections: (The following items were deleted from the chart) 16:50 16:11 COVID 19 CPL+MR.LAB.BRZ ordered. EDMS EDMS
[2022-02-27 18:12] VITALS: BP 195/80; TEMP 99.3; O2SAT 97
== END 2022-02-27 18:09 | disposition home or self-care (01) ==
LOC: ER 15:35
DX: J02.9 Acute pharyngitis, unspecified (principal); Z20.822 Contact with and (suspected) exposure to COVID-19; R50.9 Fever, unspecified; R05.9 Cough, unspecified; E11.9 Type 2 diabetes mellitus without complications; I10 Essential (primary) hypertension; Z88.5 Allergy status to narcotic agent
CPT/HCPCS: 87070; 87081; 87804 ×2; U0003; 99283

== ENCOUNTER 2022-06-27 08:12 | Observation (INO) | payer OTHER ==
--- OUTSIDE RECORDS SUMMARY | 2022-06-27 08:19 | XMS REPORT | Continuity of Care Document ---
:1950 Author Organization [facility] t Address [address] [place] [address] Care Team Providers Name Role Phone Pcp, Patient Does Not Have A Primary Care Physician [id number] Shant Lao Attending Clinician Unavailable JUAN GALLARDO Attending Clinician Unavailable CINTHIA GARCIA Attending Clinician Unavailable UTE YOST Attending Clinician Unavailable Cinthia Vincent Attending Clinician Ute Yost MD Attending Clinician Marleen Beatty NP Attending Clinician Charlette Barber Attending Clinician Doctor Unassigned, [place] Attending Clinician Unavailable Juan Gallardo MD Attending Clinician [phone] Maribell Moe MD Attending Clinician Last-Madyson_J_SOL Attending Clinician Unavailable YAMEL MONIQUE Attending Clinician Unavailable JUAN GALLARDO Admitting Clinician Unavailable Ige-Odunuga_J_AH Admitting Clinician Unavailable YAMEL MONIQUE Admitting Clinician Unavailable Payers Payer Name Policy Type Policy Number Effective Date Expiration Date Ad prieto [employer] ALL [id number] 2018 00:00:00 EAMON GIBBONS PLS [id number] 2021 HMO 00:00:00 [employer] [place] - [id number] 2019 [employer] 00:00:00 (MEDICARE REPLACEMENT/ADVANT AGE - HMO) Problems Condition Condition Condition Status Onset Resolution Last Treating Co mments Source Name Details Category Date Date Treatment Clinician Date Left Left Disease Active 2019-[address] [facility] carotid carotid 2-07 Reji artery artery 00:00: Medical stenosis stenosis 00 Center S/P CABG x S/P CABG x Disease Active 2018-[address] 1 by 1 by 0-16 Reji Gallardo on [facility] on 00:00: Me dical 07/29/2019 07/29/2019 00 Ce nter Coronary Coronary Disease Active 2018-10 [facility] artery artery 0-15 [facility] disease disease 00:00: Medical 00 Center Other Other Disease Active Overview: Univer s appendicit appendicit 6-06 Formattin ity of is is 00:00: g of this 00 note Medical might be Branch different from the original. Added automatic ally from request for surgery [id number] HLD HLD Disease Active Univers (hyperlipi (hyperlipi 04-18 it y of demia) demia) 00:00: [place] 00 Medical Branch Type 2 Type 2 Disease Active Univers diabetes diabetes 04-18 ity of mellitus mellitus 00:00: [place] without without 00 Medical complicati complicati Br anch on on Essential Essential Disease Active Uni vers hypertensi hypertensi 04-18 it y of on on 00:00: [place] 00 Medical Branch Abnormal Abnormal Disease Active Unive rs EKG EKG 04-18 ity of 00:00: [place] 00 Medical Branch Acute Acute Disease Active [facility] respirator respirator Daniela kes y y Medical insufficie insufficie Ce nter ncy ncy Acute Acute Disease Active [facility] blood loss blood loss Daniela kes anemia anemia Medical Center Hyperglyce Hyperglyce Disease Active [facility] Chronic Chronic Disease Active [facility] hypertensi [...] Branch MORPHINE Allergy Active 2019-[address] 11-14 [facility] 00:00: Medical 00 Center Morphine Propensi Active 2019-[address] ty to 11-14 [facility] adverse 00:00: Medical reaction 00 Center s NO KNOWN Allergy Active [facility] ALLERGIE S NO KNOWN Drug Active Univers ALLERGIE Class ity of S [facility] Family History Family Member Diagnosis Comments Start Date Stop Date Source Natural brother Heart attack [facility] Natural father Diabetes [facility] Natural father Heart disease [facility] Natural mother Diabetes [facility] Natural mother Heart attack [facility] Social History Social Habit Start Date Stop Date Quantity Comments Source Exposure to Not sure [facility]-CoV-2 [place] Medical (event) Branch History SDOH [facility] Alcohol Std Medical Cente r Drinks History SDOH [facility] Alcohol Binge Medical Tina ter History SDOH [facility] Alcohol Comment Medical C enter Alcohol intake 2020-10-03 2020-10-[address] Dhruv es 00:00:00 00:00:00 non-drinker of Medical Ce nter alcohol (finding) History SDOH 2019-07-29 2019-07-[address] [facility] Alcohol Frequency 00:00:00 00:00:00 Medical Center Tobacco use and 2019-07-28 2019-07-[address] Daniela kes exposure 00:00:00 00:00:00 [facility] Center Sex Assigned At [address] Daniela kes 00:00:00 00:00:00 Medical Center Smoking Status Start Date Stop Date Source Never smoker [facility] Branch Medications Ordered Filled Start Stop Current Ordering Indication Dosage Frequency Signature Comments Components Source Medication Medication Date Date Medication? Clinician (SIG) Name Name ketorolac No 30mg 30 mg, Unive rs (TORADOL) 06-18 Intramuscu ity of injection 16:45: 15:41 lar, [place]CE, [place] 30 mg 00 :00 1 dose, Medical 06/18/21 Branch at 1145, JASON
Fa culty member approving Restricted medication : MARLEEN BEATTY HYDROcodone 2020- No 1{tbl} 1 tablet, Univers -acetaminop 06-18 Oral, ity of hen (NORCO) 16:45: 15:41 [place]325 mg 00 :00 dose, Sun Medic al tablet 1 06/18/21 at Branch tablet 1145, Routine clopidogreL Yes 75mg Take 75 mg Univers 75 mg 05 by mouth. ity of tablet 16:10: [address] metoprolol Yes 25mg Take 25 mg U nivers tartrate 06-18 by mouth. ity of mg tablet 16:10: [address] clopidogreL Yes 75mg Take 75 mg Univers 75 mg 05 by mouth. ity of tablet 16:10: [address] metoprolol Yes 25mg Take 25 mg U nivers tartrate 25 05 by mouth. ity of mg tablet 16:10: [address] clopidogreL Yes 75mg Take 75 mg Univers 75 mg 05 by mouth. ity of tablet 16:10: [address] metoprolol Yes 25mg Take 25 mg U nivers tartrate 25 05 by mouth. ity of mg tablet 16:10: [address] clopidogreL 0 Yes 75mg Take 75 mg Univers 75 mg 05 by mouth. ity of tablet 16:10: [address] metoprolol 0 Yes 25mg Take 25 mg U nivers tartrate 25 05 by mouth. ity of mg tablet 16:10: [address] clopidogreL 0 Yes 75mg Take 75 mg Univers 75 mg -05 by mouth. ity of tablet 16:10: [address] metoprolol 0 Yes 25mg Take 25 mg U nivers tartrate 25 06-18 by mouth. ity of mg tablet 16:10: 25 Medical Branch metFORMIN 2020- No 850mg Take 850 Un zia 850 mg 06-18 mg by ity of tablet 16:10: 00:00 mouth. 25 : Medical Branch atorvastati 2020- No 80mg Take 80 mg Univers n 40 mg 06-18 by mouth. ity of tablet 16:10: 00:00 [place] 25 : Medical Branch traMADoL 50 2020- No 4647 50mg Take 1 Uni vers mg tablet 06-18 tablet by ity of 00:00: 04:59 mouth [place] 00 :00 every 6 Medical (six) Branch hours as needed for Pain (scale 1-3), Pain (scale 4-6) or Pain (scale 7-10) for up to 7 days. Indication s: acute pain traMADoL 50 2020- 4647 50mg Take 1 Uni vers mg tablet 06-18 tablet by ity of 00:00: 04:59 mouth [place] 00 :00 every 6 Medical (six) Branch hours as needed for Pain (scale 1-3), Pain (scale 4-6) or Pain (scale 7-10) for up to 7 days. Indication s: acute pain traMADoL 50 2020- 4647 50mg Take 1 Uni vers mg [...] 2-21 by mouth [facility] tablet 11:03: daily. [address] 2019-10 Yes 80mg QD Take [address] n (LIPITOR) 2-21 by mouth Luke s 40 MG 11:03: daily . Medical tablet [address] [place] [address] metFORMIN 2019-10 Yes 850mg Take [address] (GLUCOPHAGE 2-21 mg by [facility]ukes ) 850 MG 11:03: mouth 2 Medica l tablet 52 (two) Center times daily with breakfast and dinner. clopidogreL 2019-10 Yes 75mg QD Take [address] (PLAVIX) 75 2-21 by mouth Luke s mg tablet 11:03: daily. Medica l [address] [place] [address] metoprolol 2019-10 Yes 25mg Q.5D Take [address] tartrate 2-21 by mouth 2 [facility] (LOPRESSOR) 11:03: (two) Medic al 25 MG 52 times Center tablet daily. aspirin 81 2019-10 Yes 81mg QD Take [address] MG EC 2-21 by mouth [facility] tablet 11:03: daily. [address] [facility] 2019-10 Yes 80mg QD Take [address] n (LIPITOR) 2-21 by mouth Luke s 40 MG 11:03: daily . Medical tablet [address] [place] [address] metFORMIN 2019-10 Yes 850mg Take [address] (GLUCOPHAGE 2-21 mg by Lukes ) 850 MG 11:03: mouth 2 Medica l tablet 52 (two) Center times daily with breakfast and dinner. clopidogreL 2019-10 Yes 75mg QD Take [address] (PLAVIX) 75 2-21 by mouth Luke s mg tablet 11:03: daily. Medica l [address] [place] [address] metoprolol 2019-10 Yes 25mg Q.5D Take [address] tartrate 2-21 by mouth 2 [facility] (LOPRESSOR) 11:03: (two) Medic al 25 MG 52 times Center tablet daily. aspirin 81 2019-10 Yes 81mg QD Take [address] MG EC 2-21 by mouth [facility] tablet 11:03: daily. Medical 52 Center atorvastati [...] s mg tablet 11:03: daily. Medica l 52 [...] 13:32: 00:00 daily. Medic al 26 :00 [place] losartan 2019-10- No 25mg QD Take [address] (COZAAR) 25 -09-13 by mouth Dhruv es MG tablet 13:32: 00:00 daily. Medic al 26 :00 [place] acetaminoph 2019-10- No 1{tbl} Take [address] en-codeine -09-13 tablet by Dhruv es (TYLENOL 13:32: 00:00 mouth Medical #3) 300-30 20 :00 every 6 Center mg per (six) tablet hours as needed for Pain. acetaminoph 2019-10 2020- No 1{tbl} Take [address] en-codeine 11-14 tablet by Dhruv sparks (TYLENOL 13:32: 00:00 mouth Medical #3) 300-30 [...] 00:00: subcutaneo Medica l Insuln 100 00 [facility] Center unit/mL (3 nightly. mL) InPn injection citalopram 2019-10 Yes 20mg Take 20 mg U nivers 20 mg 0-14 by mouth. ity of tablet 00:00: [place] [facility] citalopram 2019-10 Yes 20mg Take 20 mg U nivers 20 mg 0-14 by mouth. ity of tablet 00:00: [place] [facility] citalopram 2019-10 Yes 20mg Take 20 mg U nivers 20 mg 0-14 by mouth. ity of tablet 00:00: [place] [facility] citalopram 2019-10 Yes 20mg Take 20 mg U nivers 20 mg 0-14 by mouth. ity of tablet 00:00: [place] [facility] citalopram 2019-10 Yes 20mg Take 20 mg U nivers 20 mg 0-14 by mouth. ity of tablet 00:00: [place] [facility] citalopram 2019-10 Yes 20mg QD Take [address] (CeleXA) 20 0-14 by mouth Luke s MG tablet 00:00: daily. Medica l [place] citalopram 2019-10 Yes 20mg QD Take [address] (CeleXA) 20 0-14 by mouth Luke s MG tablet 00:00: daily. Medica l 00 [place] citalopram 2019-10 Yes 20mg QD Take [address] (CeleXA) 20 0-14 by mouth Luke s MG tablet 00:00: daily. Medica l 00 [place] metoprolol 2018-10- No 25mg Q.5D Take 1 [...] mouth 2 Center (two) times daily. amLODIPine Yes 5mg Take 1 Unive rs [...] due to financial issues atorvastati 2019-0 Yes [id number] 40mg Take 1 Univers n 40 mg [...] due to financial issues atorvastati 2019-0 Yes [id number] 40mg Take 1 Univers n 40 mg [...] due to financial issues atorvastati 2019-0 Yes [id number] 40mg Take 1 Univers n 40 mg 6-24 tablet by ity of tablet 00:00: mouth at [place] 00 bedtime. Medical Branch amLODIPine 20190 Yes 5mg Take 1 Unive [...] due to financial issues atorvastati 2018- Yes [id number] 40mg Take 1 Univers n 40 mg [...] due to financial issues atorvastati 2019-0 Yes [id number] 40mg Take 1 Univers n 40 mg [...] due to financial issues atorvastati 2019-0 Yes [id number] 40mg Take 1 Univers n 40 mg 6-24 tablet by ity of tablet 00:00: mouth at 00 bedtime. Medical Branch amLODIPine 2018-0 Yes [...] due to financial issues atorvastati 2019-0 Yes [id number] 40mg Take 1 Univers n 40 mg 6-24 tablet by ity of tablet 00:00: mouth at [place] 00 bedtime. Medical Branch lisinopril 2019-0 Yes 40mg QD Take [address] (PRINIVIL,Z 6-24 by mouth Luke s ESTRIL) 20 00:00: daily . Medi albert MG tablet [address] [place] [address] lisinopril 2019-0 Yes 40mg QD Take [address] (PRINIVIL,Z 6-24 by mouth Luke s ESTRIL) 20 00:00: daily . Medi albert MG tablet 00 [place] lisinopril 0 Yes 40mg QD Take [address] (PRINIVIL,Z 6-24 by mouth Luke s ESTRIL) 20 00:00: daily . Medi albetr MG tablet 00 [place] traMADOL 50 0 Yes [id number] 50mg Take 1 Univers mg tablet 6-17 tablet by ity o f 00:00: mouth [place] 00 every 6 Medical (six) Branch hours as needed for Pain (scale 7-10). traMADOL 50 0 Yes [id number] 50mg Take 1 Univers mg tablet 6-17 tablet by ity o f 00:00: mouth [place] 00 every 6 Medical (six) Branch hours as needed for Pain (scale 7-10). traMADOL 50 2018-0 Yes [id number] 50mg Take 1 Univers mg tablet 6-17 tablet by ity o f 00:00: mouth [place] 00 every 6 Medical (six) Branch hours as needed for Pain (scale 7-10). traMADOL 50 2018-0 Yes [id number] 50mg Take 1 Univers mg tablet 6-17 tablet by ity o f 00:00: mouth [place] 00 every 6 Medical (six) Branch hours as needed for Pain (scale 7-10). traMADOL 50 2018-0 Yes [id number] 50mg Take 1 Univers mg tablet 6-17 tablet by ity o f 00:00: mouth [place] 00 every 6 Medical (six) Branch hours as needed for Pain (scale 7-10). traMADOL 50 2018-0 Yes [id number] 50mg Take 1 Univers mg tablet 6-17 tablet by ity o f 00:00: mouth [place] 00 every 6 Medical (six) Branch hours as needed for Pain (scale 7-10). traMADOL 50 2018-0 Yes [id number] 50mg Take 1 Univers mg tablet 6-17 [...] due to financial issues amoxicillin 2019-0 Yes [id number] 1{tbl} Take 1 Univers -clavulanat 6-13 tablet by ity of e 00:00: mouth 2 [place] (AUGMENTIN) 00 (two) Medical 875-125 mg times Branch per tablet daily. amoxicillin 2019-0 Yes [id number] 1{tbl} Take 1 Univers -clavulanat 6-13 tablet by ity of e 00:00: mouth 2 [place] (AUGMENTIN) 00 (two) Medical 875-125 mg times Branch per tablet daily. amoxicillin 2018-2020- No [id number] 1{tbl} Take 1 Univers -clavulanat 6-13 09-05 [...] 00:00: mouth [place] 00 daily. Medical Branch Vital Signs Vital Name Observation Time Observation Value Comments Source HEIGHT 2020-09-19 09:05:00 154.9 cm WEIGHT 2020-09-19 09:05:00 75.615 kg Systolic blood 2021-06-20 20:23:00 148 mm[Hg] Univer sity of pressure [facility] Diastolic blood 2021-06-20 20:23:00 66 mm[Hg] Unive rsity of [facility] Heart rate 2021-06-20 20:23:00 76 /min [facility] Body height 2021-06-20 20:23:00 154.9 cm [facility] Body weight 2021-06-20 20:23:00 74.844 kg [facility] BMI 2021-06-20 20:23:00 31.18 kg/m2 [facility] Systolic blood 2021-06-18 16:05:00 184 mm[Hg] Univer sity of pressure [facility] Diastolic blood 2021-06-18 16:05:00 60 mm[Hg] Unive rsity of pressure [facility] Heart rate 2021-06-18 15:10:00 77 /min Universi ty of [facility] Body temperature 2021-06-18 15:10:00 37.44 [place] Univ ersity of [facility] Respiratory rate 2021-06-18 15:10:00 20 /min Univ ersity of [facility] Body height 2021-06-18 15:10:00 154.9 cm Universi ty of [facility] Body weight 2021-06-18 15:10:00 74.844 kg Universi ty [facility] [place] [facility] BMI 2021-06-18 15:10:00 31.18 kg/m2 Universi ty [facility] [place] [facility] Oxygen saturation in 2021-06-18 15:10:00 98 /min [facility] blood by [facility] Pulse oximetry Branch HEIGHT 2020-10-03 11:00:00 154.9 cm WEIGHT 2020-10-03 11:00:00 75.297 kg HEIGHT 2020-10-03 11:00:00 154.9 cm WEIGHT 2020-10-03 11:00:00 75.297 kg HEIGHT 2020-09-19 09:05:00 154.9 cm WEIGHT 2020-09-19 09:05:00 75.615 kg HEIGHT 2020-09-13 13:29:00 154.9 cm WEIGHT 2020-09-13 13:29:00 75.297 kg HEIGHT 2020-09-13 13:29:00 154.9 cm WEIGHT 2020-09-13 13:29:00 75.297 kg Systolic blood 2020-10-03 11:00:00 171 mm[Hg] [facility] Diastolic blood 2020-10-03 11:00:00 71 mm[Hg] [facility] Heart rate 2020-10-03 11:00:00 78 /min [facility] Body temperature 2020-10-03 11:00:00 37 [place] [facility] Respiratory rate 2020-10-03 11:00:00 18 /min [facility] Body height 2020-10-03 11:00:00 154.9 cm [facility] Body weight 2020-10-03 11:00:00 75.297 kg [facility] BMI 2020-10-03 11:00:00 31.37 kg/m2 [facility] Oxygen saturation in 2020-10-03 11:00:00 98 /min room air [facility] Arterial blood by Medical Keli thompson Pulse oximetry Procedures Procedure Date / Time Performing Clinician Source Performed REFERRAL- 2021-04-06 05:01:00 Doctor Unassigned, No [facility] REQUEST/RESPONSE Name Medical Branch POCT-GLUCOSE METER 2020-09-20 11:36:00 [facility] POCT-GLUCOSE METER 2020-09-20 07:33:00 [facility] & AUTO 2020-09-20 00:18:00 [facility]ron [facility] BASIC METABOLIC PANEL 2020-09-20 00:18:00 [facility] (7) [place] MAGNESIUM 2020-09-20 00:18:00 [place] PHOSPHORUS 2020-09-20 00:18[facility]ED 2020-09-20 00:18:00 [facility] TISSUE EXAM 2020-09-19 14:54:00 Paulina [facility] POCT-ACT 2020-09-19 14:15:00 [facility] POCT-ACT 2020-09-19 14:03:00 [facility] ENDARTERECTOMY,CAROTID 2020-09-19 12:52:00 Paulina [facility] PROTHROMBIN TIME/INR 2020-09-19 10:22:00 [facility] APTT 2020-09-19 10:22:00 [facility] POCT-GLUCOSE METER 2020-09-19 09:06:00 [facility] CBC W/PLT COUNT & AUTO 2020-09-13 14:52:00 Paulina [facility] DIFFERENTIAL [facility] BASIC METABOLIC PANEL 2020-09-13 14:52:00 [facility] Gallardo [facility] (7) [facility] PROTHROMBIN TIME/INR 2020-09-13 14:52:00 Juan Gallardo [facility] ABORH, MANUAL 2020-09-13 14:52:00 Juan Gallardo [facility] ECG 12-LEAD 2020-09-13 14:37:40 Unknown, Hl7 Doctor [facility] Plan of Care Planned Activity Planned Date Details Comments Source Future Scheduled 2022-06-14 INFLUENZA VACCINE (#1) [facility] 00:00:00 [code = INFLUENZA Medical Ce nter VACCINE (#1)] Future Scheduled 2021-10-[address] [facility] Test 00:00:00 (12+) [code = Medical Center DEPRESSION SCREENING (12+)] Future Scheduled 2021-10-14 FALLS RISK SCREENING [facility] Test 00:00:00 [code = FALLS RISK Medical C enter SCREENING] Future Scheduled 2020-10-[address] [facility] Test 00:00:00 (12+) [code = Medical Center DEPRESSION SCREENING (12+)] Future Scheduled 2020-10-[address] [facility] Test 00:00:00 (12+) [code = [facility] DEPRESSION SCREENING (12+)] Future Scheduled 2020-07-27 PNEUMOCOCCAL 65+ YRS ([address] [facility] Test 00:00:00 - PCV) [code = Medical Cente r PNEUMOCOCCAL 65+ YRS (2 - PCV)] Future Scheduled 2020-06-14 INFLUENZA VACCINE (#1) [facility] 00:00:00 [code = INFLUENZA Medical Ce nter VACCINE (#1)] Future Scheduled 2020-06-14 INFLUENZA VACCINE (#1) [facility] 00:00:00 [code = INFLUENZA Medical Ce [...] IPPE)] Future Scheduled 2001 SHINGLES VACCINES ([address] [facility] Test 00:00:00 2) [code = SHINGLES Medical Center VACCINES (1 of 2)] Future Scheduled 2001 SHINGLES VACCINES ([address] [facility] Test 00:00:00 2) [code = SHINGLES Medical Center VACCINES (1 of 2)] Future Scheduled 2001 SHINGLES VACCINES ([address] [facility] Test 00:00:00 2) [code = SHINGLES Medical Center VACCINES (1 of 2)] Future Scheduled 1970 [...] HEPATITIS C Medical Center SCREENING] Future Scheduled 1951-01-20 COVID-19 VACCINE (#1) [facility] 00:00:00 [code = COVID-[address] VACCINE (#1)] Future Scheduled 1950 Screening for malignant [facility] Test 00:00:00 neoplasm of breast Medical C enter (procedure) [code = 322207615] Future Scheduled 1951 Screening for malignant [facility] Test 00:00:00 neoplasm of colon Medical Ce nter (procedure) [code = 302359793] Future Scheduled 1951 Screening for malignant [facility] Test 00:00:00 neoplasm of breast Medical C enter (procedure) [code = 298791566] Future Scheduled 1951 Screening for malignant [facility] Test 00:00:00 neoplasm of colon Medical Ce nter (procedure) [code = 210348120] Future Scheduled 1951 Screening for malignant [facility] Test 00:00:00 neoplasm of breast Medical C enter (procedure) [code = 371473698] Future Scheduled 1950 CT Colonography (combo) [facility] Test 00:00:00 [code = CT Colonography [facility] (combo)] Future Scheduled 1951 Screening for malignant [facility] Test 00:00:00 neoplasm of colon Medical Ce nter (procedure) [code = 655929249] Future Scheduled 1951 Screening for malignant [facility] Test 00:00:00 neoplasm of colon Medical Ce nter (procedure) [code = 626512849] Future Scheduled 1950 DXA SCAN [code = DXA [facility] Test 00:00:00 SCAN] [facility] Future Scheduled 1951 Screening for malignant [facility] Test 00:00:00 neoplasm of colon Medical Ce nter (procedure) [code = 263432851] Future Scheduled 1951 Screening for malignant [facility] Test 00:00:00 neoplasm of colon Medical Ce nter (procedure) [code = 835065797] Future Scheduled 1950 Sigmoidoscopy [code = [facility] 00:00:00 Sigmoidoscopy] Medical Cente r Encounters Start End Encounter Admission Attending Care Care Encounter Source Date/Time Date/Time Type Type Clinicians Facility Department ID 2022-04-23 Outpatient [place]o, [facility] [id number] Common 11:04:01 [facility] 2022-01-03 Outpatient Lao, STLMLC STLMLC [id number] Common 10:05:03 [facility] 2022-01-01 Outpatient Lao, STLMLC STLMLC [id number] Common 13:11:04 Shant [id number] [facility] 2021-11-08 Outpatient Lao, STLMLC STLMLC [id number] Common 14:15:27 Shant [id number] [facility] 2021-11-08 Outpatient Lao, STLMLC STLMLC [id number] Common 14:10:48 Shant [id number] [facility] 2021-11-08 Outpatient Lao, STLMLC STLMLC [id number] Common 14:04:07 Shant [id number] [facility] 2021-11-08 Outpatient STLMLC STLMLC [id number] Common 13:49:07 [id number] [facility] 2021-08-14 Emergency [facility] [id number] Univers 20:32:56 [facility] [place] [facility] 2021 Inpatient [facility] Surgery [id number] [facility] 18:22:15 [facility] 2022-04-23 2022-04-23 ambulatory STLMLC STLMLC [id number] Common 00:00:00 00:00:00 [facility] 2022-04-20 2022-04-20 ambulatory STLMLC STLMLC [id number] Common 00:00:00 00:00:00 [facility] 2022-01-04 2022-01-04 ambulatory STLMLC STLMLC [id number] Common 00:00:00 00:00:00 [facility] 2022-01-04 2022-01-04 ambulatory STLMLC STLMLC [id number] Common 00:00:00 00:00:00 [facility] 2021-12-21 2021-12-21 ambulatory STLMLC STLMLC [id number] Common 00:00:00 00:00:00 [facility] 2021-11-20 2021-11-20 ambulatory STLMLC STLMLC [id number] Common 00:00:00 00:00:00 [facility] 2021-10-30 2021-10-30 ambulatory STLMLC STLMLC [id number] Common 00:00:00 00:00:00 [facility] 2021-09-28 2021-09-28 ambulatory STLMLC STLMLC [id number] Common 00:00:00 00:00:00 [facility] 2021-08-31 2021-08-31 ambulatory STLMLC STLMLC [id number] Common 00:00:00 00:00:00 [facility] 2021-08-25 2021-08-25 ambulatory STLMLC STLMLC [id number] Common 00:00:00 00:00:00 [facility] 2021-08-22 2021-08-22 ambulatory STLMLC STLMLC [id number] Common 00:00:00 00:00:00 [facility] 2021-08-07 2021-08-07 Outpatient STLMLC STLMLC [id number] Common 00:00:00 00:00:00 [facility] 2021-07-19 2021-07-19 [facility] [id number] Univers 14:30:00 14:30:00 CINTHIA [id number] [facility] [place] [facility] 2021-06-26 2021-06-26 [facility] [id number] Univers 13:45:00 13:45:00 UTE [id number] [facility] [facility] 2021-06-26 2021-06-26 Outpatient [facility] [id number] Univers 13:45:00 13:45:00 UTE [facility] 2021-06-20 2021-06-20 [facility] [id number] Univers 15:14:01 15:29:01 Visit [facility] 350.1.13.10 it y of [place] 4.2.7.2.686 Lorenzo as Yuri?Blea [phone] [address] Medical Office Building 2021-06-20 2021-06-20 Outpatient R GARCIA, [facility] [id number] Univers 15:00:00 15:00:00 CINTHIA [id number] ity of [facility] 2021-06-20 2021-06-20 Outpatient Thomas GARCIA [facility] [id number] Univers 15:00:00 15:00:00 CINTHIA ity [facility] 2021-06-20 2021-06-20 Telephone [facility] [id number] Univers 00:00:00 00:00:00 Cinthia Duong [facility] 350.1.13.10 it y of [place] 4.2.7.2.686 Lorenzo as Yuri?Blea [phone] Ia jose [address] Medical Office [facility] 2021-06-19 2021-06-19 Telephone [facility] 1.2.840.114 [id number] Univers 00:00:00 00:00:00 [facility] 350.1.13.10 it y of [place] 4.2.7.2.686 Lorenzo as Yuri?Blea [phone] Ia jose [address] Office [facility] 2021-06-18 2021-06-18 Emergency [facility] [id number] Univers 10:12:00 11:17:00 Marleen G [place] 350.1.13.10 ity of [place] 4.[address] [facility] [phone] [facility] 084 Branch 2021-04-26 2021-04-26 Letter ONEAL Barber [id number] Univers 00:00:00 00:00:00 (Out) Charlette GABRIEL 350.1.13.10 i ty of HOSPITAL 4.2.7.2.686 Lorenzo as [phone] [facility] 043 Branch 2021-04-06 2021-04-06 Orders Doctor NO 1.2.840.114 [id number] Univers 00:00:00 00:00:00 Only Unassigned, HARVEY 350.1.13.10 ity of [place] [facility] 4.2.7.2.686 Lorenzo as [phone] [facility] 009 Branch 2020-10-03 2020-10-04 Office Paulina [facility] [id number] 10:58:57 06:55:34 Visit [facility] 2020-10-03 2020-10-03 Outpatient HUSSEIN CLARKE [facility] [id number] [facility] 00:00:00 00:00:00 [facility] 2020-09-19 2020-09-20 Hospital CHIRAG Gallardo [facility] [id number] 08:52:00 16:45:00 Encounter [facility] 2020-09-19 2020-09-19 Anesthesia Tim, [facility] [id number] 13:06:00 15:11:00 Event Maribell Yepez [facility] 2020-09-19 2020-09-19 Surgery Paulina [facility] [id number] 11:00:00 14:00:00 [facility] 2020-09-16 2020-09-16 Abstract Paulina [facility] [id number] 00:00:00 00:00:00 [facility] 2020-09-13 2020-09-13 Office CHIRAG Gallardo [facility] [id number] 14:23:27 14:53:27 Visit [facility] 2020-09-13 2020-09-13 Outpatient HUSSEIN CLARKE [facility] [id number] [facility] 14:23:27 14:23:27 [facility] 2020-09-13 2020-09-13 Orders [facility] [id number] 00:00:00 00:00:00 [facility] 2019-12-02 2019-12-02 Outpatient Ige-Odunuga VFP VF 799 [id number] [facility] 07:29:00 07:29:00 _J_ [id number] Family Practic e Results Test Description Test Time Test Comments Results Result Comments Source Tissue Exam 2020-09-23 18:50:00 Test Item Value Reference Range Interpretation Comme nts Case Report (test code = 104) Surgical Pathology Report Case: [id number] Authorizing Provider: Juan Gallardo, Collected: 09/19/2020 02:54 PM Ordering Location: [facility] Received: 09/19/2020 03:32 PM PERIOPERATIVE SERVICES Pathologist: Jarad Menchaca MD Specimen: Plaque, LEFT CAROTID ARTERY PLAQUE DIAGNOSIS (test code = 3220) l4lriBArVSSge8qoXNLyeIWiVcWiTxRyFuHzOw pc dWMxIHtccnRmMVxlcGljOTIwMFxhbnNpXHNwbHRw D5PrsauxJHqcNA4gIG4urRuavQRidHKeHQYuPaVi b5fqu063jSSuy5faNZLVlxbxvEu2fVolC28cv8O3 IkohC18hzAUdRTwpqSPqqjnqpvWnIHNKESEFERdp GTZMITHEZPGWSPgKTMSDOiKLXwJVYqWKEF5PZBpt cRMmYDZUQMRWPbsQSQCKLOTXY8BJWVHHR2CBNyIB FFRQGMJxDTTvzt18ADK1CyFxl8M5ZLQ4XTQsMKFv i0tsYFHfwBGnGsYnOxTeImNmOzorgXUeZEZcFlQz a3pke343aMFdk9anNNNcIcY8cWGhITIhrHDgD103 SODqAExjf3mqb7OqOHDjrJEdh0O7KEPAhtqihZq0 nBomF89ct9G5LwaiJ4tbUNNyQQJfG1MoJK1dBXKh Thd6KMS1DJK9BCHhTQWsC0QaNZ2eXOGycUEkITe9 u1vrrIbwELRnPQR8q6dqNJilvhVpRD7naa6tbWh6 q4brsoEqUSLhDZZfyYXOBUGiR0RotTckTf0imUi1 sWikCrobWQY1Jeu7UY6lil34vok2kBowUPIcsxlg ZqX9QMmmUOOskwivZYa9PCkmTQDavWX4NZZphBJy M4DfOCDuQC1sghy4EPH0JKsoUJXfWuI1CNHqsCIg TJJseXabERhtt856PWP8QuHyIV4fY9Vcg8A5bS6m wENgROWtpLLqXdXnHBUbnb6quUYtFPgqk3LnHQX8 paS1mJOefHSdLPIeRgM5SIzuYF2mxt16DMBmLBW1 go9drUNebJlreyKuaYYkIFdlL8ZgSVAkn270TJVe Z4OrXPTma4C9ilJaAmRwOJFbsFW5zbI9ISLuON2b npcvu0vuREdaHQqfNKLllgF5hbI2MCMqnQDiT0Ip wH7bTBMkXB8mrhxxy1pmDQQ1SGgqOYHuCJP4TgNn YGPax3Qdcqf6JrTbg6PghGFrZYieZ65wq621QYEf daAkS8gzwHDmkaqztMFrhuebTLblthF7WVKoLBun dgelQEJiFMvdC3mbRdGoFCQyaDhiMGovo6XwAEDe HVYsWnWenWDuPESeZiy1FFSgtPEnMICoPoZcC7ft wvfhOeYLPDEzh7uvU1wfaHXEsDRrC0IyOYkzrsMb TOplXOqeOXVpXJQ2HG90YwhcIRMjxa00 CPT Code(s) (test code = 3357) e2xxnIYuKZZsxRQ0WuYhLJQxk1ajn9VkhNAp cGFy QByokGAkmxYndr14aET9tQ48YL8lNJAxYeP4HOTr udG1Uvz9EOOrJEPyeNNsC207k1pjy3redbHcgPO5 xYvjRUCsDTBmACnkLABcLfWlQIhwHZI9DSp9GoAx XHBhcn0= CLINICAL HISTORY (test code = 1310) b9irpMLdKKEwrFJ9TrVkTCJig3zqw5B sdHBncGFy FTpojIDvptAznv78hPJ7wE65SI3hROUnUcS1TFXl gcT0Msb7HIBbRZDbaMHbI125a6qqv4yujeKhaTV4 mNlhMCHbIUNpVSgdJRRbUuWiBKFub7PhOZsvE70z f2huIpTekDZzxZUeLKZnePknNSH9BH2el1umEESp cn0= SPECIMEN SOURCE (test code = 3377) z7croDNnJOAboVJ2WaNmXNFyq7ovt7Hc dHBncGFy BAzakKZqqaOxho24uTW7wJ70GP7lNKQeMfH4OGHb jkP1Ndj8ICJzMUUrhNJyW167j4kmr9eumrHbbHW8 fVxwYXJkXHBsYWluXGZzMjAgUGxhcXVlIFxwYXJ9 GROSS DESCRIPTION (test code = 3366) t0aohYCpBJPihFN6FyZyPXGzi8pnt1 BsdHBncGFy DZwflMUzicAgqo58sTG9iJ69QD7gTKFjYaV0MUCb awX3Azm4YAQnXYBqdGElY264r5vhb6yhwdVhoDU4 fQxpTPDaTZBzMKfkNZEiObCfDyLjFDr0QOMhCaPz e9qlkSAyHCuwCTT2yVZfUADzBMVmCNCyRI26A4Dq gvXrKTofMZGbHQFxrP7uWE02cCLbyoXjzuQrMxFx EWG5ECaqjCRzgSSaBINvtMjgQNXpoBSarOQzjXCs dQVfFNuuHUNbRf8rXUccIc5gCVXqWKoaglNvsGvi eyZvimHkuEAbeBAlAbI4FWlhy6csoYwmhUJhVLTf CXXyFYzzjXkhrLPvI9ViK7mghMFamYarsz1aZWbi WVCmFZOyeJRpQTqjMRShhipceXu7BINnA5Rml84o UDL3sbKnTGDuLPrnRSN4OWimu3iaqX1ep3jvlnDw bCZtB2QzK3lfuMEfKBAvmzXhnl4fVFwuFVEfAIXi hWMgFBizWUX6Vv4xpNBaPJEqfuMolQCaNF41uWLx eCjxUt6fwW66aK8dYLSiG1NuK1fikHUneVzlcaPq poHICZ2kYSzEF3NpANotFPE0 MICROSCOPIC DESCRIPTION (test code = v0ygiNQoCEYoiGC3GdIcLOLsm8ken1 BsdHBncGFy 3371) NLrynWDvbmMsdy88dRY3eS15OX4lFYWpEdK5DZTt opN3Ung4IMAkAMKwoXGqW710d7uny2sdraSgdPK7 xTweBSWwQXSqUYchNNFgFcCdESZtFj1rkMXlQPSw cn0= [facility] [id number] 18:50:00 Test Item Value Reference Range Interpretation Comments Case Report (test code Surgical Pathology = 104) Report Case: [id number] Authorizing Provider: Juan Gallardo, Collected: 09/19/2020 02:54 PM Ordering Location: [facility] Received: 09/19/2020 03:32 PM PERIOPERATIVE SERVICES Pathologist: Jarad Menchaca MD Specimen: Plaque, LEFT CAROTID ARTERY PLAQUE DIAGNOSIS (test code = p8spzELkWQGrx8hpDAOpgWY 3220) uZzEwMzNcZnRuYmpcdWMxIH tccnRmMVxlcGljOTIwMFxhb tVqICNhwGAcC5HazfbhMIkx RO8hEB4xrTsnvCNydXGyRLR kDdDcb3tld116uWKgw2dlKO UZjuszpLb2mTbxQ51wc4R0I kwzZ98naRCfKYeihYUxaoai czIwIEFSVEVSWSwgTEVGVCB DQVJPVElELCBFTkRBUlRFUk NIUV9FNPapzFBxAXQIXSBJQ mjKCBSSREBYP3UMCSIWD1IV PzKRZXUVICQlXMAcod63URU 2TcBph1Y0ZAR7ORMjAHLha7 lcZGVmbGFuZzEwMzNcZnRuY elocXEyLDTkYwGpd2zum438 uHYyi6vuGQUgEbX9vXSaILP kwUZrC481JKUaZNsec1sxz0 DvRQGmdUAgq8G5RIDEfgjbg Fz8eUjuF06mr4M7MpflS2eb QHSoICMjH0KfDS2yRXOmJai 9WHB0BCI6IJPvNCHqY5StCI 7kETWdbEMmTFv2b2erfWjaQ VLqOMU3t9xwNSplgnKdOY6n dj6zeJt8k5oywyFgFCNhPCV vdFVKSROrQ7CrdWdkMz6ydH l6dVhcKxxqPVT7Ntz3DV5zx h96ldj7aAqcBEVqcmssRzC6 RSldMHEoihhrTAe2CWngXSK yuRA5RAXfnGNlI8ZqRBNwZK 0eenh6YEN5MYlqEANuJuJ9Q LLjlBIeGOZicZkoZWeki024 TVD7CkJyXI6mW2Aoz8B0gA0 maXRcZGVmdGFiNzIwXGZvcm 3vtEJxBIvww2OoBQF3vfJ6g SIsaTDpBXVbUcC6HRwaXP8j yw10MSDfZLG2ps8owFMhnSp gkwPeqVUoKEffG9DcUBWmo5 75FDPrT4PgFLMhw1L3ucBzL fRsVIKdvBO7zgF8PAVbCD2t prfds0xcSKvzWGlnETNbqlH 5dxP8UKDksEMyX5ClvC9eLH QiBV2ldhryk4psCTU9PFfbO DClZPJ4HaTvFZJjd2Njflv7 TjEum1EorJNxYHgfJ84sl72 8OUHzmkGoJ5lccUNfksbplX LounqmBXlhfhA4VFCwSJxdm ygaHXEhYCktD0opMiQeDCFb hQejGLddr0LwKSJgSEWlWqE ldEIeFZCgAny4TCUwbWQnYG MuEzYgA4iujbzzZbGJVGUam 1mqQ9iqlZDVuNHhY2OdEGye ckBoHTmgSXeqDYAwCJH6EO2 5GwbsDUJdiu13 CPT Code(s) (test code v7xqtBGgZCVkxCC2BmHzJAH = 3357) sr6dkn4BkmHDjjTCmJMoxnS JserZjrc19rNR6sC84QM9rH UDrNmY3VUKyszS8Lkx8VXKm UZHbxYXxD118j7zvk4lcngY poLT2sKlwTFMlEJBiRPyiAG BuNmKzUXnaCWP0SHa9LgWhM HBhcn0= CLINICAL HISTORY (test s5ycfZSnDMVziAY8EhLxKCJ code = 3356) xv4ubj0UgxJSwgISaYYxvhW SbrdYzov84cVC3yU63ZO9tJ PRxIoN4RJQennO4Ixr4PHFt MDXpuYJiU442g5vwk5ajofA ycWL5gIbbQGTgDHXrVFrrPZ GqMdOnTAPvb7PlZDjwL36pr 2lzOiAgbGVmdCBjYXJvdGlk SSW0WA0wq0ryMUBnwk3= SPECIMEN SOURCE (test n0fnuYOlGRNhmQS7OeEmOJM code = 3377) wg0psy2ErpFIaoJFyJWjlwO GwtmSuag92wSC3sM00KC0gP EFlGeV8GLFajsV4Wax1GBLt DLOhzRNqC051o2dvx1edpzW nsBU4sLhjBMWdEJZlUIrcFF ZzMjAgUGxhcXVlIFxwYXJ9 GROSS DESCRIPTION w8wxoJPmREFssXN6IsVnGOI (test code = 3366) ve3jfl3KnuTXhyCUhKCaxqS GkzeGgyb08eET0sV49GT5aI WEvHhW4EPWwtcP0Gef8BDXv DFCevNQmF348s7spc1syitS cfYL2iRfpKGZhUFZkJGjyOA GoCeHlGuOxZVl4ZBUtZwBev 7dheOUfFOprRTM6qLOtLVJd LSNeTWTbLX87W8TfsiInMAg oOGSrBVLfbU5tOW68ePHnrf WkeeSjBtRxPGB4EVxhwTMvr CBjYXJvdGlkIGFydGVyeSBw uPChcWNiKRvqSHZdVk3kWPu lEz5tNZSoXOanldYcgNblsp NjgqAzuVQexACxDmN6GAybf 3cgcGxhcXVlIHRoYXQgZGlz nYzznTMkD4YfF7zkoMOuoRb nej7fVFnyBKOoEDYfwCAiJI urRRFxrkilhOd6LYOoA0Zzb 41yAPC7ajVrQQHlLNtjEJT0 UKbje0cdbG9wb2pwlkTykQW dU7MsQ4gxmGEfNMFvgpKwwk 4gVGhlIHNwZWNpbWVuIGlzI OR0Mj2plQKsSTYdhfUogCLr CI92wGYrjDvnMt9szJ92sV8 lZVThH7BhC2taxHXvpDmgon GyvhIAUC5gDXyHF2PbINxwD XJ9 MICROSCOPIC t7hsrKAvNADioHI5GwPkEKJ DESCRIPTION (test code mq3gar4NxgSCpkABkICkzhF = 3371) XveoJfcs69iSM3hN03NS7eY LWnKqZ6KDSfddJ9Ucc8ZCTm ZSKzqWUaD814k6jtq0sguqB rfTA3qZasQSFiLFRgCYsqJV BfFcEjHWKsQp4axAUuQHGte n0= [facility] [id number] 18:50:00Surgical Pathology Report Case: [id number] Authorizing Provider: Juan Gallardo, Collected:09/19/2020 02:54 PM Ordering Location: [facility] Received: 09/19/2020 03:32 PM PERIOPERATIVESERVICES Pathologist: Jarad Menchaca MD Specimen: Plaque, LEFT CAROTID ARTERY PLAQUE ARTERY, LEFTCAROTID, ENDARTERECTOMY:CALCIFIC ATHEROSCLEROTIC PLAQUE Signing Pathologist Direct Phone Line: [phone] signed by Jarad Menchaca MD on 09/23/2020 at 6:50 [id number]; [id number] diagnosis: left carotid stenosisPlaque Received fresh labeled with the patient's name, accession number and "plaque, left carotid artery plaque" is a 2.0 x 2.0 cm irregular fragment of yellow plaque that displa ys calcification. The specimen is serially sectioned to reveal a yellow homogeneous calcified center. The specimen is submitted in its entirety following decalcification in A1. JG/pl PerformedPOC-Glucose [id number] 11:48:00 Test Item Value Reference Range Interpretation Comments POC-Glucose Meter (test 208 mg/dL 70-110 H : TE STED AT [facility] code = 1538) [address] [place] [address], [facility] 30: Gun Welder/Techni ciara ID = [id number] for BERT CORONADO Lab Interpretation (test Abnormal code = 62568-4) [facility] [id number] 11:48:00 Test Item Value Reference Range Interpretation Comments POC-Glucose Meter (test 208 mg/dL 70-110 H : TE STED AT [facility] code = 1538) [address] [place] [address], [facility] 30: Gun Welder/Techni ciara ID = [id number] for BERT CORONADO Lab Interpretation (test Abnormal code = 73057-5) [facility] [id number] 11:48:00 Test Item Value Reference Range Interpretation Comments POC-GLUCOSE METER 208 mg/dL 70-110 H : TESTED [place] [address] (BEAKER) (test code = [facility], 1538) [address]: Gun Welder/Techni ciara ID = [id number] for BERT ROUSSEAU POCT-GLUCOSE [id number] 08:17:00 Test Item Value Reference Range Interpretation Comments POC-GLUCOSE METER 183 mg/dL 70-110 H : TESTED [place] 1141320 [facility] (test code = [facility], 1538) [address]: Gun Welder/Techni ciara ID = [id number] for BERT ROUSSEAU POC ACTIVATED CLOTTING [id number] 06:23:00 Test Item Value Reference Range Interpretation Comments Activated Clotting Time 241 sec : 74 -137 seconds, (test code = 441) Baseline: TESTED AT [address], [facility] 30: Gun Welder/Techni ciara ID = [id number] for CAST RO, NAT [facility] ACTIVATED CLOTTING [id number] 06:23:00 Test Item Value Reference Range Interpretation Comments Activated Clotting Time 241 sec : 74 -137 seconds, (test code = 441) Baseline: TESTED AT [address], [facility] 30: Gun Welder/Techni ciara ID = [id number] for CAST RO, NAT [facility]-[id number] 06:23:00 Test Item Value Reference Range Interpretation Comments ACTIVATED CLOTTING TIME 241 sec : 74 -137 seconds, (BEAKER) (test code = Baseli ne: TESTED AT 441) [address], 770 30: Gun Welder/Techni ciara ID = [id number] for CA STRO, NAT [id number] 06:23:00 Test Item Value Reference Range Interpretation Comments ACTIVATED CLOTTING TIME 224 sec : 74 -137 seconds, (BEAKER) (test code = Baseli ne: TESTED AT 441) [address], [facility] 30: Gun Welder/Techni ciara ID = [id number] for CA STRO, NAT CBC with platelet count + automated [id number] 01:08:00 Test Item Value Reference Range Interpretation Comments WBC (test code = 6690-2) 12.8 See_Comment H [A utomated message] The system [employer] generated this result transmitted ref erence range: 3.5 - 10 .5 K/L. The refe rence range was not u sed to interpret this result as normal/abnor mal. RBC (test code = 789-8) 3.64 See_Comment L [Au tomated message] The system [employer] generated this result transmitted ref erence range: 3.93 - 5 .22 M/L. The refe rence range was not u sed to interpret this result as normal/abnor mal. MCHC (test code = 786-4) 30.3 See_Comment L [A utomated message] The system [employer] generated this result transmitted ref erence range: [...] See_Comment [Aut omated message] 777-3) The system [employer] generated this result transmitted ref erence range: 150 - 45 0 K/CU MM. The referen ce range was not u sed to interpret this result as normal/abnor mal. MPV (test code = 10.5 fL 9.4-12.3 20670-7) nRBC (test code = 413) 0 See_Comment [Aut omated message] The system [employer] generated this result transmitted ref erence range: [...] H [Aut omated message] 670) The system [employer] generated this result transmitted ref erence range: 1.56 - 6 .13 K/L. The refe rence range was not u sed to interpret this result as normal/abnor mal. # Lymphs (test code = 1.06 See_Comment L [Auto mated message] 414) The system [employer] generated this result transmitted ref erence range: 1.18 - 3 .74 K/L. The refe rence range was not u sed to interpret this result as normal/abnor mal. # Monos (test code = 0.20 See_Comment L [Autom ated message] 415) The system [employer] generated this result transmitted ref erence range: 0.24 - 0 .36 K/L. The refe rence range was not u sed to interpret this result as normal/abnor mal. # Eos (test code = 416) 0.00 See_Comment L [Au tomated message] The system [employer] generated this result transmitted ref erence range: 0.04 - 0 .36 K/L. The refe rence range was not u sed to interpret this result as normal/abnor mal. # Baso (test code = 417) 0.03 See_Comment [A utomated message] The system [employer] generated this result transmitted ref erence range: 0.01 - 0 .08 K/L. The refe rence range was not u sed to interpret this result as normal/abnor mal. Immature 1 % 0-1 Granulocytes-Relative (test code = 2801) Lab Interpretation (test Abnormal code = 20280-5) [facility] with platelet count + automated [id number] 01:08:00 Test Item Value Reference Range Interpretation Comments WBC (test code = 6690-2) 12.8 See_Comment H [A utomated message] The system [employer] generated this result transmitted ref erence range: 3.5 - 10 .5 K/L. The refe rence range was not u sed to interpret this result as normal/abnor mal. RBC (test code = 789-8) 3.64 See_Comment L [Au tomated message] The system [employer] generated this result transmitted ref erence range: 3.93 - 5 .22 M/L. The refe rence range was not u sed to interpret this result as normal/abnor mal. MCHC (test code = 786-4) 30.3 See_Comment L [A utomated message] The system [employer] generated this result transmitted ref erence range: [...] See_Comment [Aut omated message] 777-3) The system [employer] generated this result transmitted ref erence range: 150 - 45 0 K/CU MM. The referen ce range was not u sed to interpret this result as normal/abnor mal. MPV (test code = 10.5 fL 9.4-12.3 03370-7) nRBC (test code = 413) 0 See_Comment [Aut omated message] The system [employer] generated this result transmitted ref erence range: [...] H [Aut omated message] 670) The system [employer] generated this result transmitted ref erence range: 1.56 - 6 .13 K/L. The refe rence range was not u sed to interpret this result as normal/abnor mal. # Lymphs (test code = 1.06 See_Comment L [Auto mated message] 414) The system [employer] generated this result transmitted ref erence range: 1.18 - 3 .74 K/L. The refe rence range was not u sed to interpret this result as normal/abnor mal. # Monos (test code = 0.20 See_Comment L [Autom ated message] 415) The system [employer] generated this result transmitted ref erence range: 0.24 - 0 .36 K/L. The refe rence range was not u sed to interpret this result as normal/abnor mal. # Eos (test code = 416) 0.00 See_Comment L [Au tomated message] The system [employer] generated this result transmitted ref erence range: 0.04 - 0 .36 K/L. The refe rence range was not u sed to interpret this result as normal/abnor mal. # Baso (test code = 417) 0.03 See_Comment [A utomated message] The system [employer] generated this result transmitted ref erence range: 0.01 - 0 .08 K/L. The refe rence range was not u sed to interpret this result as normal/abnor mal. Immature 1 % 0-1 Granulocytes-Relative (test code = 2801) Lab Interpretation (test Abnormal code = 54688-2) [facility] W/PLT COUNT & AUTO [id number] 01:08:00 Test Item Value Reference Range Interpretation [...] (BEAKER) (test code = 2801) Basic Metabolic [id number] 00:56:00 Test Item Value Reference Range Interpretation Comments Sodium (test code = 134 meq/L 136-145 L 2951-2) Potassium (test code = 3.9 meq/L 3.5-5.1 2823-3) Chloride (test code = 104 meq/L 98-107 5-0) CO2 (test code = 23 meq/L 22-29 2027-9) BUN (test code = 10 mg/dL 7-21 3094-0) Creatinine (test code 0.76 mg/dL 0.57-1.25 = 2160-0) Glucose (test code = 332 mg/dL 70-105 H 2345-7) Calcium (test code = 8.2 mg/dL 8.4-10.2 L 46507-2) EGFR (test code = 75 mL/min/1.73 [place] [address]-9) NOT ACCURATE CREATININE CLEARANCE IN PREDICTING GLOMERULAR FILTRATION RATE . ESTIMATED GFR I S NOT APPLICABLE FOR DIALYSIS PATIENTS. GABRIELA (test code = GABRIELA) Gun Welder ID - PIAYA L Lab Interpretation Abnormal (test code = 33527-9) [facility] Test Item Value Reference Range Interpretation Comments Magnesium (test code = 1.7 mg/dL 1.6-2.6 26730-1) GABRIELA (test code = GABRIELA) Gun Welder ID - PIAYA L Lab Interpretation (test Normal code = 73744-1) [facility] 00:56:00 Test Item Value Reference Range Interpretation Comments Phosphorus (test code = 3.7 mg/dL 2.3-4.7 2777-1) GABRIELA (test code = GABRIELA) Gun Welder ID - PIAYA L Lab Interpretation (test Normal code = 44656-7) [facility] [id number] 00:56:00 Test Item Value Reference Range Interpretation [...] (test code = 8.2 mg/dL 8.4-10.2 L 02124-1) EGFR (test code = 75 mL/min/1.73 [place] [address]-6) NOT ACCURATE CREATININE CLEARANCE IN PREDICTING GLOMERULAR FILTRATION RATE . ESTIMATED GFR I S NOT APPLICABLE FOR DIALYSIS PATIENTS. GABRIELA (test code = GABRIELA) Gun Welder ID - PIAYA L Lab Interpretation Abnormal (test code = 40459-3) [facility] 00:56:00 Test Item Value Reference Range Interpretation Comments Magnesium (test code = 1.7 mg/dL 1.6-2.6 58726-8) GABRIELA (test code = GABRIELA) Gun Welder ID - FARHAD L Lab Interpretation (test Normal code = 75842-3) [facility] 00:56:00 Test Item Value Reference Range Interpretation Comments Phosphorus (test code = 3.7 mg/dL 2.3-4.7 2777-1) GABRIELA (test code = GABRIELA) Gun Welder ID - RHEATUAN L Lab Interpretation (test Normal code = 16499-3) [facility] [id number] 00:56:00 Test Item Value Reference Range Interpretation [...] S NOT APPLICABLE FOR DIALYSIS PATIEN TS. Gun Welder ID - PITUAN [id number] 00:56:00 Test Item Value Reference Range Interpretation Comments MAGNESIUM (BEAKER) (test code = 1.7 mg/dL 1.6-2.6 627) Gun Welder ID - FARHAD [id number] 00:56:00 Test Item Value Reference Range Interpretation Comments PHOSPHORUS (BEAKER) (test code = 3.7 mg/dL 2.3-4.7 604) Gun Welder ID - RHEAAYA LCalcium, [id number] 00:31:00 Test Item Value Reference Range Interpretation Comments Calcium, Ion (test code = 1993-) 1.18 mmol/L 1.12-1.27 pH, Blood (test code = 80360-6) 7.39 [facility], [id number] 00:31:00 Test Item Value Reference Range Interpretation Comments Calcium, Ion (test code = 1993-) 1.18 mmol/L 1.12-1.27 pH, Blood (test code = 89038-3) 7.39 [facility], [id number] 00:31:00 Test Item Value Reference Range Interpretation Comments CALCIUM IONIZED (BEAKER) (test 1.18 mmol/L 1.12-1.27 code = 698) PH, BLOOD (BEAKER) (test code = 7.39 1810) [id number] 10:46:00 Test Item Value Reference Range Interpretation Comments PTT (test code = 41770-7) 27.9 See_Comment [ Automated message] The system [employer] generated this result transmitted ref erence range: 22.5 - 3 6.0 seconds. The re ference range was not u sed to interpret this result as normal/abnor mal. Lab Interpretation (test Normal code = 14317-6) [facility] 10:46:00 Test Item Value Reference Range Interpretation Comments PTT (test code = 20424-6) 27.9 See_Comment [ Automated message] The system [employer] generated this result transmitted ref erence range: 22.5 - 3 6.0 seconds. The re ference range was not u sed to interpret this result as normal/abnor mal. Lab Interpretation (test Normal code = 09766-0) [facility] 10:46:00 Test Item Value Reference Range Interpretation Comments PARTIAL THROMBOPLASTIN TIME 27.9 seconds 22.5-36.0 (BEAKER) (test code = 760) Prothrombin time/[id number] 10:45:00 Test Item Value Reference Interpretation Comments Range Protime (test code = 13.4 See_Comment [Autom ated 5902-2) message] The system which generated this result transmitted reference range : 11.9 - 14.2 seconds. The reference range was not used to interpret this result as normal/abnormal . INR (test code = 1.05 See_Comment [Automated 2441-6) message] The system which generated this result [...] valves. Lab Interpretation Normal (test code = 96435-6) [facility] CenterProthrom[facility] time/[id number] 10:45:00 Test Item Value Reference Interpretation Comments Range Protime (test code = 13.4 See_Comment [Autom ated 5902-2) message] The system which generated this result transmitted reference range : 11.9 - 14.2 seconds. The reference range was not used to interpret this result as normal/abnormal . INR (test code = 1.05 See_Comment [Automated 1671-6) message] The system which generated this result [...] valves. Lab Interpretation Normal (test code = 29980-3) [id number] 10:45:00 Test Item Value Reference Range Interpretation Comments PROTIME (BEAKER) (test code = 13.4 seconds 11.9-14.2 759) INR (BEAKER) (test code = 370) 1.05 <=5.90 Effective 03/11/2019: PT Reference Range ChangeNew: 11.9-14.2 Previous: 11.7- 14.7RECOMMENDED COUMADIN/WARFARIN INR THERAPY RANGESSTANDARD DOSE: 2.0-3.0 Includes: PROPHYLAXIS for venous thrombosis, systemic embolization; TREATMENT for venous thrombosis and/or pulmonary embolus.HIGH RISK: Target INR is 2.5-3.5 for patients wiht mechanical heart valves.POCT-GLUCOSE [id number] 09:19:00 Test Item Value Reference Range Interpretation Comments POC-GLUCOSE METER 187 mg/dL 70-110 H : TESTED A T [facility] 6720 (YECENIA) (test code = [place]ENDIRA [place], 1538) [address]: Gun Welder/Techni ciara ID = [id number] for Jojo [place] ECG 12 [id number] 12:51:19Interface, External Ris In - 09/14/2020 12:51 PM CSTVentricular Rate 65 BPMAtrial Rate 65 BPMP-R Interval 154 msQRS Duration 78 msQ-T Interval 442 msQTC Calculation(Bazett) 459 msP Hope 5 degreesR Axis77 degreesT Hope 66 degreesNormal sinus rhythmNonspecific T wave abnormalityProlonged QTWhen compared with ECG of 02-AUG-2019 06:01,Premature ventricular complexes are no longer PresentConfirmed by Daksha NICHOLE, MOLLY ([id number]) on 09/14/2020 12:51:17 [facility] [id number] 12:51:19Interface, External Ris In - 09/14/2020 12:51 PM CSTVentricular Rate 65 BPMAtrial Rate 65 BPMP-R Interval 154 msQRS Duration 78 msQ-T Interval 442 msQTC Calculation(Bazett) 459 msP Hope 5 degreesR Axis77 degreesT Hope 66 degreesNormal sinus rhythmNonspecific T wave abnormalityProlonged QTWhen compared with ECG of 02-AUG-2019 06:01,Premature ventricular complexes are no longer PresentConfirmed by Daksha NICHOLE, MOLLY ([id number]) on 09/14/2020 12:51:17 [facility] HospitalABOR[facility], [id number] 16:42:00 Test Item Value Reference Range Interpretation Comments ABO Grouping (test code = 2588) A Rh Factor (test code = 2589) POS [facility] [id number] 16:42:00 Test Item Value Reference Range Interpretation Comments ABO Grouping (test code = 2588) A Rh Factor (test code = 2589) POS [facility] CenterType and screen, [id number] 16:36:00 Test Item Value Reference Range Interpretation Comments Ab Scrn (test code = 890-4) NEGATIVE echo2 [facility] CenterType [facility] screen, [id number] 16:36:00 Test Item Value Reference Range Interpretation Comments Ab Scrn (test code = 890-4) NEGATIVE echo2 [facility] CenterBAS[facility]OLIC [id number] 15:32:00 Test Item Value Reference Range Interpretation [...] S NOT APPLICABLE FOR DIALYSIS PATIEN TS. Gun Welder ID - ADMINPROTHROMBIN [id number] 15:29:00 Test Item Value Reference Range Interpretation [...] is 2.5-3.5 for patients wiht mechanical heart valves.CBC W/PLT COUNT & AUTO [id number] 15:17:00 Test Item Value Reference Range Interpretation [...] (BEAKER) (test code = 2801) BASIC METABOLIC [id number] 06:24:00 Test Item Value Reference Range Interpretation [...] 0-0 (BEAKER) (test code = 413) POCT-GLUCOSE [id number] 21:22:00 Test Item Value Reference Range Interpretation Comments POC-GLUCOSE METER 138 mg/dL 70-110 H TESTED AT [facility] 67[address] [facility] (test code = ERENDIRA [place] 1538) [address] POCT-GLUCOSE [id number] 17:38:00 Test Item Value Reference Range Interpretation Comments POC-GLUCOSE METER 131 mg/dL 70-110 H TESTED AT [facility] 6720 ([facility]) (test code = [facility] Thomas [facility] 1538) [address] BASIC METABOLIC [id number] 06:07:00 Test Item Value Reference Range Interpretation [...] 1092) DATA TO CALCULA TE ESTIMATED GFR. [id number] 06:04:00 Test Item Value Reference Range Interpretation [...] H (BEAKER) (test code = 413) POCT-GLUCOSE [id number] 23:10:00 Test Item Value Reference Range Interpretation Comments POC-GLUCOSE METER 127 mg/dL 70-110 H TESTED AT [facility] 6720 (BEAKER) (test code = ERENDIRA [place] 1538) [address] POCT-GLUCOSE [id number] 12:36:00 Test Item Value Reference Range Interpretation Comments POC-GLUCOSE METER 157 mg/dL 70-110 H TESTED AT [facility] 6720 (BEAKER) (test code = ERENDIRA [place] 1538) [address] CBC (HEMOGRAM ONLY)2019-08-02 06:03:00 Test Item Value [...] (BEAKER) (test code = 413) BASIC METABOLIC [id number] 05:47:00 Test Item Value Reference Range Interpretation [...] 1092) DATA TO CALCULA TE ESTIMATED GFR. [id number] 05:46:00 Test Item Value Reference Range Interpretation Comments PHOSPHORUS (BEAKER) (test code = 2.5 mg/dL 2.3-4.7 604) [id number] 05:46:00 Test Item Value Reference Range Interpretation Comments MAGNESIUM (BEAKER) (test code = 2.1 mg/dL 1.6-2.6 627) POCT-GLUCOSE [id number] 20:47:00 Test Item Value Reference Range Interpretation Comments POC-GLUCOSE METER 164 mg/dL 70-110 H TESTED AT [facility] 6720 (BEAKER) (test code = [facility] 1538) [address] POCT-GLUCOSE [id number] 17:38:00 Test Item Value Reference Range Interpretation Comments POC-GLUCOSE METER 194 mg/dL 70-110 H TESTED AT [place] [address] (BEAKER) (test code = [facility] 1538) [address] POCT-GLUCOSE [id number] 07:51:00 Test Item Value Reference Range Interpretation Comments POC-GLUCOSE METER 157 mg/dL 70-110 H TESTED AT [place] [address] (BEAKER) (test code = [facility] 1538) [address] HEMOGLOBIN [id number] 07:51:00 Test Item Value Reference Range Interpretation Comments HEMOGLOBIN A1C (BEAKER) (test code = 8.6 % 4.3-6.1 H 368) BASIC METABOLIC [id number] 06:11:00 Test Item Value Reference Range Interpretation [...] 1092) DATA TO CALCULA TE ESTIMATED GFR. [id number] 06:10:00 Test Item Value Reference Range Interpretation Comments PHOSPHORUS (BEAKER) (test code = 1.9 mg/dL 2.3-4.7 L 604) [id number] 06:10:00 Test Item Value Reference Range Interpretation [...] 0-0 (BEAKER) (test code = 413) POCT-GLUCOSE [id number] 22:07:00 Test Item Value Reference Range Interpretation Comments POC-GLUCOSE METER 175 mg/dL 70-110 H TESTED AT [facility] 6720 (BEAKER) (test code = ERENDIRA [place]AG[place] 1538) [address] POCT-GLUCOSE [id number] 18:30:00 Test Item Value Reference Range Interpretation Comments POC-GLUCOSE METER 225 mg/dL 70-110 H TESTED AT [facility] 6720 (BEAKER) (test code = ERENDIRA Guzman [facility] 1538) [address] POCT-GLUCOSE [id number] 12:17:00 Test Item Value Reference Range Interpretation Comments POC-GLUCOSE METER 170 mg/dL 70-110 H TESTED AT [facility] 6720 (BEAKER) (test code = ERENDIRA Guzman [facility] 1538) [address] POCT-GLUCOSE [id number] 08:20:00 Test Item Value Reference Range Interpretation Comments POC-GLUCOSE METER 161 mg/dL 70-110 H TESTED AT [facility] 6720 (BEAKER) (test code = [facility] Thomas [facility] 1538) [address] BASIC METABOLIC [id number] 08:18:00 Test Item Value Reference Range Interpretation [...] 1092) DATA TO CALCULA TE ESTIMATED GFR. [id number] 08:15:00 Test Item Value Reference Range Interpretation Comments MAGNESIUM (BEAKER) 1.9 mg/dL 1.6-2.6 Specimen slightly (test code = 627) hemolyzed [id number] 08:15:00 Test Item Value Reference Range Interpretation Comments PHOSPHORUS (BEAKER) 2.3 mg/dL 2.3-4.7 Specimen slightly (test code = 604) hemolyzed RAD, CHEST, 1 VIEW, NON [id number] 07:56:00Reason for exam:->post-op cardiac surgeryShould this be [...] MDReport Verified Date/Time: 07/31/2019 07:56:15 Reading Location: [facility] Reading Room Electronically signed by: DIXON WILKERSON on 07/31 07:56 [id number] 07:25:00 Test Item Value Reference Range Interpretation [...] is 2.5-3.5 for patients wiht mechanical heart valves.CBC (HEMOGRAM [...] % 34.1-44.9 L 411) MEAN CORPUSCULAR VOLUME ([facility]) 104.4 fL 79.4-94.8 H (test code = 753) MEAN CORPUSCULAR HEMOGLOBIN 32.5 pg 25.6-32.2 H ([facility]) (test code = 751) MEAN CORPUSCULAR HEMOGLOBIN CONC 31.1 GM/DL 32.2-35.5 L ([facility]) (test code = 752) RED CELL DISTRIBUTION WIDTH 19.2 % 11.7-14.4 H ([facility]) (test code = 412) PLATELET COUNT ([facility]) (test 218 K/CU MM 150-450 code = 756) MEAN PLATELET VOLUME ([facility]) 11.0 fL 9.4-12.3 (test code = 754) NUCLEATED RED BLOOD CELLS 0 /100 WBC 0-0 ([facility]) (test code = 413) POCT-GLUCOSE [id number] 21:32:00 Test Item Value Reference Range Interpretation Comments POC-GLUCOSE METER 168 mg/dL 70-110 H TESTED AT [place] [address] ([facility]) (test code = [facility] 1538) [address] POCT-GLUCOSE [id number] 17:55:00 Test Item Value Reference Range Interpretation Comments POC-GLUCOSE METER 172 mg/dL 70-110 H TESTED AT [place] [address] ([facility]) (test code = [facility] Thomas [facility] 1538) [address] POCT-GLUCOSE [id number] 15:34:00 Test Item Value Reference Range Interpretation Comments POC-GLUCOSE METER 152 mg/dL 70-110 H TESTED AT [place] [address] ([facility]) (test code = [facility] 1538) [address] POCT-GLUCOSE [id number] 12:52:00 Test Item Value Reference Range Interpretation Comments POC-GLUCOSE METER 222 mg/dL 70-110 H TESTED AT [place] [address] ([facility]) (test code = [facility] 1538) [address] POCT-GLUCOSE [id number] 07:19:00 Test Item Value Reference Range Interpretation Comments POC-GLUCOSE METER 185 mg/dL 70-110 H TESTED AT [place] [address] ([facility]) (test code = [facility] 1538) [address] [id number] 06:16:00 Test Item Value Reference Range Interpretation Comments ACTIVATED CLOTTING TIME 109 sec Refe rence Range: 74-137 (BEAKER) (test code = second s, 441) Baseline/TESTED AT [place] [id number] [facility] [address] [id number] 06:16:00 Test Item Value Reference Range Interpretation Comments ACTIVATED CLOTTING TIME 543 sec Refe rence Range: 74-137 (BEAKER) (test code = second s, 441) Baseline/TESTED AT [address] [address] [id number] 06:16:00 Test Item Value Reference Range Interpretation Comments ACTIVATED CLOTTING TIME 510 sec Refe rence Range: 74-137 (BEAKER) (test code = second s, 441) Baseline/TESTED AT [place] 1141320 [facility] 7[address] 0 BASIC METABOLIC [id number] 06:04:00 Test Item Value Reference Range Interpretation [...] 1092) DATA TO CALCULA TE ESTIMATED GFR. [id number] 06:02:00 Test Item Value Reference Range Interpretation Comments PHOSPHORUS (BEAKER) (test code = 3.7 mg/dL 2.3-4.7 604) [id number] 06:02:00 Test Item Value Reference Range Interpretation Comments MAGNESIUM (BEAKER) (test code = 2.0 mg/dL 1.6-2.6 627) [id number] 05:57:00 Test Item Value Reference Range Interpretation [...] is 2.5-3.5 for patients wiht mechanical heart valves.PROTHROMBIN [id number] 05:56:00 Test Item Value Reference Range Interpretation [...] is 2.5-3.5 for patients wiht mechanical heart valves.CALCIUM, [id number] 05:55:00 Test Item Value Reference Range Interpretation Comments CALCIUM IONIZED (BEAKER) (test 1.17 mmol/L 1.12-1.27 code = 698) PH, BLOOD (BEAKER) (test code = 7.38 1810) CBC W/PLT COUNT & AUTO [id number] 05:55:00 Test Item Value Reference Range Interpretation [...] (BEAKER) (test code = 2801) OXYGEN SATURATION, [id number] 05:49:00 Test Item Value Reference Range Interpretation Comments O2 SATURATION (MEASURED) (BEAKER) 77.2 % (test code = 1455) RAD, CHEST, 1 VIEW, NON [id number] 05:35:00Reason for exam:->post-op cardiac surgeryShould this be performed at the bedside?->YesFINAL REPORT RAD, CHEST, 1 VIEW, NON DEPT INDICATION: post-op cardiac surgery COMPARISON: Prior day's exam FINDINGS: Portable frontal view of the chest. IMPRESSION: Support Lines: Interval extubation. Otherwise unchanged support apparatus. Lungs and pleura: Unchanged airspace opacities. No pneumothorax.Heart and mediastinum: Stable contours. Stable surgical changes.Additional findings: None. Signed: Ottoniel Brand Verified Date/Time: 07/30/2019 05:35:16 [id number] 18:41:00 Test Item Value Reference Range Interpretation Comments POTASSIUM (BEAKER) (test code = 4.2 meq/L 3.5-5.1 379) PRN - repeat potassium levels every 1 hour until glucose level is less than 450 mg/dLPOCT-GLUCOSE [id number] 18:14:00 Test Item Value Reference Range Interpretation Comments POC-GLUCOSE METER 175 mg/dL 70-110 H TESTED AT [facility] 6720 ([facility] (test code = ERENDIRA Guzman [place] 1538) [address] BLOOD GAS, [id number] 16:57:00 Test Item Value Reference Range Interpretation [...] (test code = 1819) 40.0 % HEMOGLOBIN [id number] 16:17:00 Test Item Value Reference Range Interpretation Comments HEMOGLOBIN A1C ([facility]) (test code = 9.5 % 4.3-6.1 H 368) PLATELET AGGREGATION: FUNCTION [id number] 15:15:00 Test Item Value Reference Range Interpretation Comments [id number] Giovanni Tee M.D. ([facility]) (test code = (electonic signature) 2622) PLATELET [...] be falsely low with platelet counts<75,000/cu mm.POCT-GLUCOSE [id number] 15:07:00 Test Item Value Reference Range Interpretation Comments POC-GLUCOSE METER 125 mg/dL 70-110 H TESTED AT [place] [address] ([facility]) (test code = [facility] 1538) [address] POCT-GLUCOSE [id number] 14:26:00 Test Item Value Reference Range Interpretation Comments POC-GLUCOSE METER 85 mg/dL 70-110 TESTED AT [place] [address] ([facility]) (test code = [facility] [address] 1538) POCT-GLUCOSE [id number] 14:14:00 Test Item Value Reference Range Interpretation Comments POC-GLUCOSE METER 88 mg/dL 70-110 TESTED AT [place] [address] ([facility]) (test code = [facility] [address] 1538) RAD, CHEST, 1 VIEW, NON [id number] 13:11:00Reason for exam:->Status post CV Surgery post [...] of postoperative complication. Signed: Pancho Akbar MDReport Verified Da te/Time: 07/29/2019 13:11:13 Reading Location: [facility] Reading Room -GLUCOSE [id number] 13:00:00 Test Item Value Reference Range Interpretation Comments POC-GLUCOSE METER 132 mg/dL 70-110 H TESTED AT [facility] 6720 (BEAKER) (test code = ERENDIRA [place] 1538) [address] BASIC METABOLIC [id number] 12:28:00 Test Item Value Reference Range Interpretation [...] 1092) DATA TO CALCULA TE ESTIMATED GFR. [id number] 12:27:00 Test Item Value Reference Range Interpretation Comments PHOSPHORUS (BEAKER) (test code = 2.3 mg/dL 2.3-4.7 604) [id number] 12:27:00 Test Item Value Reference Range Interpretation Comments MAGNESIUM (BEAKER) (test code = 2.6 mg/dL 1.6-2.6 627) [id number] 12:26:00 Test Item Value Reference Range Interpretation Comments PARTIAL THROMBOPLASTIN TIME 27.4 seconds 22.5-36.0 (BEAKER) (test code = 760) PROTHROMBIN [id number] 12:25:00 Test Item Value Reference Range Interpretation [...] is 2.5-3.5 for patients wiht mechanical heart valves.LACTIC ACID, [id number] 12:21:00 Test Item Value Reference Range Interpretation Comments LACTATE BLOOD ARTERIAL (2) 1.2 mmol/L 0.5-2.2 (BEAKER) (test code = 2874) CBC W/PLT COUNT & AUTO [id number] 12:08:00 Test Item Value Reference Range Interpretation [...] PERCENT (BEAKER) (test code = 2801) CALCIUM, [id number] 12:04:00 Test Item Value Reference Range Interpretation Comments CALCIUM IONIZED (BEAKER) (test 1.15 mmol/L 1.12-1.27 code = 698) PH, BLOOD (BEAKER) (test code = 7.44 1810) BLOOD GAS, [id number] 12:03:00 Test Item Value Reference Range Interpretation [...] code = 1819) 60.0 % OXYGEN SATURATION, [id number] 12:00:00 Test Item Value Reference Range Interpretation Comments O2 SATURATION (MEASURED) (BEAKER) 66.6 % (test code = 1455) For occult [id number] 11:53:00 Test Item Value Reference Range Interpretation Comments PHOSPHORUS (BEAKER) (test code = 2.9 mg/dL 2.3-4.7 604) CALCIUM, [id number] 10:32:00 Test Item Value Reference Range Interpretation Comments CALCIUM IONIZED (BEAKER) (test 1.03 mmol/L 1.12-1.27 L code = 698) PH, BLOOD (BEAKER) (test code = 7.33 1810) BLOOD GAS, [id number] 10:31:00 Test Item Value Reference Range Interpretation [...] code = 1819) 100.0 % SODIUM NA-STAT [id number] 10:31:00 Test Item Value Reference Range Interpretation Comments SODIUM (BEAKER) (test code = 381) 133 meq/L 135-148 L GLUCOSE-STAT [id number] 10:31:00 Test Item Value Reference Range Interpretation Comments GLUCOSE RANDOM (BEAKER) (test code 226 mg/dL 70-110 H = 652) HGB/HCT (H&H) - STAT [id number] 10:31:00 Test Item Value Reference Range Interpretation Comments HEMOGLOBIN (BEAKER) (test code = 8.0 g/dL 12.0-15.0 L 410) HEMATOCRIT (BEAKER) (test code = 24.0 % 36.0-45.0 L 411) POTASSIUM-STAT [id number] 10:30:00 Test Item Value Reference Range Interpretation Comments POTASSIUM (BEAKER) (test code = 4.2 meq/L 3.6-5.5 379) BLOOD GAS, [id number] 10:05:00 Test Item Value Reference Range Interpretation [...] code = 1819) 80.0 % SODIUM NA-STAT [id number] 10:05:00 Test Item Value Reference Range Interpretation Comments SODIUM (BEAKER) (test code = 381) 127 meq/L 135-148 L POTASSIUM-STAT [id number] 10:05:00 Test Item Value Reference Range Interpretation Comments POTASSIUM (BEAKER) (test code = 5.9 meq/L 3.6-5.5 H 379) GLUCOSE-STAT [id number] 10:05:00 Test Item Value Reference Range Interpretation Comments GLUCOSE RANDOM (BEAKER) (test code 241 mg/dL 70-110 H = 652) HGB/HCT (H&H) - STAT [id number] 10:05:00 Test Item Value Reference Range Interpretation Comments HEMOGLOBIN (BEAKER) (test code = 8.0 g/dL 12.0-15.0 L 410) HEMATOCRIT (BEAKER) (test code = 24.0 % 36.0-45.0 L 411) BLOOD GAS, [id number] 09:51:00 Test Item Value Reference Range Interpretation [...] code = 1819) 80.0 % SODIUM NA-STAT [id number] 09:51:00 Test Item Value Reference Range Interpretation Comments SODIUM (BEAKER) (test code = 381) 130 meq/L 135-148 L GLUCOSE-STAT [id number] 09:51:00 Test Item Value Reference Range Interpretation Comments GLUCOSE RANDOM (BEAKER) (test code 249 mg/dL 70-110 H = 652) HGB/HCT (H&H) - STAT [id number] 09:51:00 Test Item Value Reference Range Interpretation Comments HEMOGLOBIN (BEAKER) (test code = 8.1 g/dL 12.0-15.0 L 410) HEMATOCRIT (BEAKER) (test code = 24.0 % 36.0-45.0 L 411) POTASSIUM-STAT [id number] 09:50:00 Test Item Value Reference Range Interpretation Comments POTASSIUM (BEAKER) (test code = 5.4 meq/L 3.6-5.5 379) BLOOD GAS, [id number] 09:23:00 Test Item Value Reference Range Interpretation [...] code = 1819) 100.0 % SODIUM NA-STAT [id number] 09:23:00 Test Item Value Reference Range Interpretation Comments SODIUM (BEAKER) (test code = 381) 132 meq/L 135-148 L GLUCOSE-STAT [id number] 09:23:00 Test Item Value Reference Range Interpretation Comments GLUCOSE RANDOM (BEAKER) (test code 164 mg/dL 70-110 H = 652) CALCIUM, [id number] 09:23:00 Test Item Value Reference Range Interpretation Comments CALCIUM IONIZED (BEAKER) (test 1.05 mmol/L 1.12-1.27 L code = 698) PH, BLOOD (BEAKER) (test code = 7.44 1810) POTASSIUM-STAT [id number] 09:22:00 Test Item Value Reference Range Interpretation Comments POTASSIUM (BEAKER) (test code = 4.0 meq/L 3.6-5.5 379) HGB/HCT (H&H) - STAT [id number] 09:22:00 Test Item Value Reference Range Interpretation Comments HEMOGLOBIN (BEAKER) (test code = 12.2 g/dL 12.0-15.0 410) HEMATOCRIT (BEAKER) (test code = 36.0 % 36.0-45.0 411) RAD, CHEST, 1 VIEW, NON [id number] 07:12:00Reason for exam:->preopShould this be performed at the bedside?->YesFINAL REPORT INDICATION: preop COMPARISON: None TECHNIQUE: Single frontal view of the chest. FINDINGS: Lungs and pleura: Clear lungs. No effusion.Heart and mediastinum: Normal heart size. Unremarkable mediastinal contours.Osseous structures: No acute abnormality.Other: None. IMPRESSION: No acute intrathoracic abnormality. Signed: Deirdre De Jesus Verified Date/Time: 07/29/2019 07:12:45 [id number] 07:01:00 Test Item Value Reference Range Interpretation Comments PARTIAL THROMBOPLASTIN TIME 31.2 seconds 22.5-36.0 (BEAKER) (test code = 760) BASIC METABOLIC [id number] 05:57:00 Test Item Value Reference Range Interpretation [...] 1092) DATA TO CALCULA TE ESTIMATED GFR. [id number] 05:51:00 Test Item Value Reference Range Interpretation Comments MAGNESIUM (BEAKER) (test code = 1.9 mg/dL 1.6-2.6 627) [id number] 05:35:00 Test Item Value Reference Range Interpretation [...] is 2.5-3.5 for patients wiht mechanical heart valves.PROTHROMBIN [id number] 05:34:00 Test Item Value Reference Range Interpretation [...] is 2.5-3.5 for patients wiht mechanical heart valves.CBC W/PLT COUNT & AUTO [id number] 05:24:00 Test Item Value Reference Range Interpretation [...] % 0-1 PERCENT (BEAKER) (test code = 2802)
[2022-06-27] MEDS ORDERED: METOPROLOL TAR 50 MG TAB ONE (09:07)
[2022-06-27 09:09] LABS: Protime INR 1.01
[2022-06-27 09:11] LABS: Absolute Lymphocytes (CBC) 2.3 K/uL (0.7-4.9); Hematocrit 41.5 % (36.0-45.0); Lymphocytes % 30.8 % (15.3-44.8); MCV 100.3 fL (80-100); RBC Red Blood Cell Count 4.14 M/uL (3.86-4.86)
--- NOTE | 2022-06-27 09:22 | RAD REPORT ---
EXAM DESCRIPTION: CT - Head Brain Wo Cont - 06/27/2022 9:12 am CLINICAL HISTORY: tongue numbness, dizziness COMPARISON: Head Brain Wo Cont dated 03/16/2019 TECHNIQUE: Axial 5 mm thick images of the head were obtained without IV contrast. All CT scans are performed using dose optimization technique as appropriate and may include automated exposure control or mA/KV adjustment according to patient size. FINDINGS: No intracranial hemorrhage, mass, edema or shift of mid-line structures. No acute infarcti on changes seen. No cortical edema or sulcal effacement. Mild to moderate atrophy changes are present . Atrophy is primarily bifrontal in location. Ventricles are in proportion to the amount of volume lo ss. Arterial and physiologic calcifications are present. Cerebral white matter chronic ischemic serna es relatively mild. Mastoid air cells and visualized portions of the paranasal sinuses are clear. No acute bony findings. IMPRESSION: No acute intracranial finding identifiable. Patient's primarily bifrontal atrophy pattern and chronic ischemic pattern are not significantly diff erent from the 2019 comparison.
[2022-06-27 09:24] LABS: Albumin 3.3 g/dL (3.4-5.0); Bilirubin Direct 0.1 mg/dL (0-0.2); Bilirubin Total 0.4 mg/dL (0.2-1.0); Magnesium 1.9 mg/dL (1.8-2.4); Potassium 4.1 mmol/L (3.5-5.1); Protein, Total 8.4 g/dL (6.4-8.2)
[2022-06-27 09:26] LABS: Troponin High Sensitivity 209.5 pg/mL (<58.9)
--- NOTE | 2022-06-27 10:01 | RAD REPORT ---
EXAM DESCRIPTION: RAD - Chest Single View - 06/27/2022 9:26 am CLINICAL HISTORY: dizziness COMPARISON: Portable 08/20/2021 TECHNIQUE: AP portable chest image was obtained 06/27/2022 9:26 am . FINDINGS: No focal lung parenchymal process. Interstitial pattern matches comparison. Heart size and central vasculature are normal range. Heart and vasculature are normal. No measurable pleural effusi on and no pneumothorax. No acute bony abnormality seen. No acute aortic findings suspected. IMPRESSION: No acute cardiopulmonary process. No significant change from comparison study.
[2022-06-27] MEDS ORDERED: ASPIRIN 325 MG TAB ONE (10:18)
--- NOTE | 2022-06-27 10:26 | EDPHYS ---
Physician Documentation [facility] Name: Ivet Calderon Age: 71 yrs Sex: Female : 1950 Arrival Date: 06/27/2022 Time: 08:17 Bed 6 Private MD: ED Physician Ty Walsh HPI: 06/27 08:47 This 71 yrs old Female presents to ER via Wheelchair with complaints of pm1 Dizziness, Fall Injury, Tongue Numbness. 08:47 The patient presents with dizziness, sense of spinning. Onset: The symptoms/episode pm1 began/occurred 3 day(s) ago. Context: occurred at home. Modifying factors: The symptoms are alleviated by nothing, the symptoms are aggravated by changing position. Associated signs and symptoms: Pertinent positives: numbness, tip of her tongue. Blurred vision with sensation of spinning, Pertinent negatives: chest pain, shortness of breath. Severity of symptoms: in the emergency department the symptoms are unchanged. Patient's baseline: Neuro: alert and fully oriented, Motor: no deficits, Ambulation: walks without assistance, Speech: normal. The patient has not experienced similar symptoms in the past. The patient has not recently seen a physician. 71-year-old patient presents ER with complaints of dizziness and tongue numbness. Onset of symptoms Saturday at home. Patient reports the tip of her tongue is feeling numb since Saturday. Patient also reports sensation of spinning with changing in position, standing up. Patient was standing up this morning from seated position and felt dizzy with the room spinning and she fell down without any kind of injury. Patient is reporting headache. Negative for hitting her head with fall. Negative for neck pain negative for LOC. Historical: - Allergies: 08:35 Morphine (burning to IV site); vg1 - Home Meds: 08:35 aspirin 81 mg Oral chew 1 tab once daily [Active]; Lopressor 50 mg Oral tab 1 tab once vg1 daily [Active]; metformin 500 mg Oral tab 1 tab 2 times per day [Active]; Lisinopril Oral [Active]; - PMHx: 08:35 Diabetes - NIDDM; heart attack; Hypertension; Hypercholesterolemia; vg1 - PSHx: 08:35 Appendectomy; Cholecystectomy; open heart surgery; Stented artery; vg1 - Immunization history:: Client reports having NOT received the Covid vaccine. - Social history:: Smoking status: Patient denies any tobacco usage or history of. ROS: 08:47 Constitutional: Negative for fever, chills, and weight loss, Neck: Negative for injury, pm1 pain, and swelling, Cardiovascular: Negative for chest pain, palpitations, and edema, Respiratory: Negative for shortness of breath, cough, wheezing, and pleuritic chest pain, Abdomen/GI: Negative for abdominal pain, nausea, vomiting, diarrhea, and constipation, Back: Negative for injury and pain, MS/Extremity: Negative for injury and deformity, Skin: Negative for injury, rash, and discoloration. 08:47 ENT: Positive for tip of tongue numbness, Negative for difficulty swallowing, difficulty handling secretions. 08:47 Neuro: Positive for dizziness, headache, of the top of head, Negative for loss of consciousness, syncope, weakness, extremity numbness or tingling. 08:47 All other systems are negative. Exam: 08:47 Constitutional: This is a well developed, well nourished patient who is awake, alert, pm1 and in no acute distress. Head/Face: Normocephalic, atraumatic. 08:47 Back: No spinal tenderness. No costovertebral tenderness. Full range of motion. Skin: Warm, dry with normal turgor. Normal color with no rashes, no lesions, and no evidence of cellulitis. MS/ Extremity: Pulses equal, no cyanosis. Neurovascular intact. Full, normal range of motion. 08:47 Eyes: Periorbital structures: no acute changes, Pupils: no acute changes, Extraocular movements: no acute changes, Conjunctiva: no acute changes, no injection, Visual [place]: no acute changes, Nystagmus: present bilaterally with right edward gaze. 08:47 Cardiovascular: Exam negative for acute changes, Rate: normal, Rhythm: regular, Pulses: no pulse deficits are appreciated, Heart sounds: normal. 08:47 Respiratory: Exam negative for acute changes, respiratory distress, shortness of breath, Breath sounds: are clear throughout. 08:47 Abdomen/GI: Inspection: abdomen appears normal, Palpation: abdomen is soft and non-tender, in all quadrants. 08:47 Neuro: Orientation: is normal, Mentation: is normal, Cranial nerves: CN II- XII are normal as tested, Cerebellar function: normal finger to nose testing, heel to up testing is normal, Motor: moves all fours, strength is 5/5 in all extremities, Sensation: no obvious gross deficits. Vital Signs: 08:20 BP 228 / 71; Pulse 72; Resp 17; Temp 98.6(TE); Pulse Ox 100% on R/A; Weight 73.48 kg; vg1 Height 5 ft. 1 in. (154.94 cm); Pain 8/10; 08:48 BP 226 / 75; Pulse 70; Resp 20; Pulse Ox 98% ; Pain 10/10; mb8 09:26 BP 152 / 112; Pulse 66; Resp 18; Pulse Ox 99% ; mb8 09:39 BP 165 / 96; Pulse 56; mb8 09:54 BP 177 / 62; Pulse 64; Resp 18; Pulse Ox 97% ; Pain 0/10; mb8 11:41 BP 169 / 49; Pulse 52; Resp 18; Pulse Ox 98% ; Pain 0/10; mb8 08:20 Body Mass Index 30.61 (73.48 kg, 154.94 cm) vg1 NIH Stroke Scale Scores: 08:53 NIHSS Score: 0 mb8 09:00 NIHSS Score: 0 mb8 Jason Coma Score: 08:20 Eye Response: spontaneous(4). Verbal Response: oriented(5). Motor Response: obeys vg1 commands(6). Total: 15. Trauma Score (Adult): 08:20 Eye Response: spontaneous(1); Verbal Response: oriented(1); Motor Response: obeys vg1 commands(2); Systolic BP: > 89 mm Hg(4); Respiratory Rate: 10 to 29 per min(4); Jason Score: 15; Trauma Score: 12 MDM: 08:20 Patient medically screened. pm1 08:50 ED course: Patient did not take her metoprolol 50 mg this AM as she normally takes. pm1 Patient reports taking her lisinopril 40 mg this AM. Patient does not check her blood pressure on a regular basis, will assess with her blood pressure with her home medications and then treat as necessary . 10:23 Data reviewed: vital signs. Data interpreted: Pulse oximetry: on room air is 97 %. pm1 Interpretation: normal. Counseling: I had a detailed discussion with the patient and/or guardian regarding: the historical points, exam findings, and any diagnostic results supporting the discharge/admit diagnosis, lab results, radiology results, the need for further work-up and treatment in the hospital. 10:25 ED course: Patient's tongue numbness and headache have resolved with reduction in blood pm1 pressure with patient taking her home blood pressure medications. Patient's systolic readings 170s from 220s with her regular PO dose of metoprolol. Patient reports not taking her blood pressure readings for the past 1 week. 11:53 Physician consultation: Gunnar Garcia MD was contacted at 11:53, regarding admission, pm1 patient's condition, would like further tests performed, MRI, in the emergency department to see patient at 11:53. 06/27 08:47 Order name: Basic Metabolic Panel; Complete Time: 10:01 pm06/27 08:47 Order name: CBC with Diff; Complete Time: 10:01 pm06/27 08:47 Order name: LFT's; Complete Time: 10:01 pm1 06/27 08:47 Order name: Magnesium; Complete Time: 10:01 pm06/27 08:47 Order name: PT-INR; Complete Time: 10:01 pm06/27 08:47 Order name: Troponin HS; Complete Time: 10:01 pm06/27 08:47 Order name: CT Head Brain wo Cont; Complete Time: 10:01 pm06/27 08:47 Order name: XRAY Chest (1 view); Complete Time: 10:02 pm06/27 10:22 Order name: SARS RAPID; Complete Time: 11:53 pm1 06/27 11:53 Order name: MRI - Brain Wo Cont pm06/27 13:12 Order name: Troponin High Sensitivity; Complete Time: 13:15 EDMS 06/27 13:15 Order name: Lipid Profile; Complete Time: 13:18 EDMS 06/27 13:15 Order name: Thyroid Stimulating Hormone; Complete Time: 13:18 EDMS 06/27 16:04 Order name: D-Dimer; Complete Time: 16:26 EDMS 06/27 08:47 Order name: EKG; Complete Time: 08:48 pm06/27 08:47 Order name: Cardiac monitoring; Complete Time: 08:47 pm1 06/27 08:47 Order name: EKG - Nurse/Tech; Complete Time: 08:47 pm06/27 08:47 Order name: IV Saline Lock; Complete Time: 08:55 pm1 06/27 08:47 Order name: Labs collected and sent; Complete Time: 08:55 pm1 06/27 08:47 Order name: O2 Per Protocol; Complete Time: 08:48 pm1 06/27 08:47 Order name: O2 Sat Monitoring; Complete Time: 08:48 pm1 06/27 12:12 Order name: CONS Physician Consult EDMS 06/27 12:12 Order name: Brain With Cont EDMS 06/27 12:13 Order name: MRA Head Wo Cont; Complete Time: 16:26 EDMS 06/27 12:13 Order name: MRA Neck With Cont EDMS 06/27 15:21 Order name: MRI; Complete Time: 16:26 EDMS 06/27 15:25 Order name: MRI; Complete Time: 16:26 EDMS EC:51 Rate is 69 beats/min. Rhythm is regular. QRS [place] is Normal. GA interval is normal. QRS pm1 interval is normal. QT interval is normal. No Q waves. T waves are Normal. No ST changes noted. Clinical impression: Normal sinus rhythm, possible anterior infarct, age undetermined, abnormal EKG. Administered Medications: 08:49 CANCELLED (Physician Discretion): hydrALAZINE 10 mg IVP once pm1 09:20 Drug: Metoprolol TARTRATE 50 mg Route: PO; mb8 10:00 Drug: Aspirin 325 mg Route: PO; mb8 Disposition: 18:48 Co-signature as Attending Physician, Ty Walsh MD. rn Disposition Summary: 06/27/22 10:25 Hospitalization Ordered Hospitalization Status: Observation pm1 Provider: Gunnar Garcia pmBruce Condition: Stable pm1 Problem: new pm1 Symptoms: have improved pm1 Bed/Room Type: Standard pm1 Location: Telemetry/MedSurg (observation)(06/27/22 16:45) bd Room Assignment: 430(06/27/22 16:45) bd Diagnosis - Headache pm1 - Dizziness and giddiness pm1 - Hypertensive urgency pm1 Forms: - Medication Reconciliation Form pm1 - SBAR form pm1 NIH Stroke Scale - NIH Stroke Score Date: 06/27/2022 Time: 08:53 Total Score = 0 1a. Level of Consciousness (LOC) - 0(Alert) 1b. Level of Consciousness (LOC) (Month \T\ Age) - 0(Both) 1c. LOC Commands (Open \T\ Closes Eyes/Railroad Repairer) - 0(Both) 2. Best Gaze (Lateral Gaze Paresis) - 0(Normal) 3. Visual Field Loss - 0(No visual loss) 4. Facial Palsy - 0(Normal) 5a. Left Arm: Motor (10-second hold) - 0(No drift) 5b. Right Arm: Motor (10-second hold) - 0(No drift) 6a. Left Leg: Motor (5-second hold - always test supine) - 0(No drift) 6b. Right Leg: Motor (5-second hold - always test supine) - 0(No drift) 7. Limb Ataxia (finger/nose \T\ heel/up - test with eyes open) - 0(Absent) 8. Sensory Loss (pinprick arms/legs/face) - 0(Normal) 9. Best Language: Aphasia (description/naming/reading) - 0(No aphasia) 10. Dysarthria (speech clarity - read or repeat words) - 0(Normal) 11. Extinction and Inattention (visual/tactile/auditory/spatial/personal) - 0(No abnormality) Initials: mb8 NIH Stroke Scale - NIH Stroke Score Date: 06/27/2022 Time: 09:00 Total Score = 0 1a. Level of Consciousness (LOC) - 0(Alert) 1b. Level of Consciousness (LOC) (Month \T\ Age) - 0(Both) 1c. LOC Commands (Open \T\ Closes Eyes/Railroad Repairer) - 0(Both) 2. Best Gaze (Lateral Gaze Paresis) - 0(Normal) 3. Visual Field Loss - 0(No visual loss) 4. Facial Palsy - 0(Normal) 5a. Left Arm: Motor (10-second hold) - 0(No drift) 5b. Right Arm: Motor (10-second hold) - 0(No drift) 6a. Left Leg: Motor (5-second hold - always test supine) - 0(No drift) 6b. Right Leg: Motor (5-second hold - always test supine) - 0(No drift) 7. Limb Ataxia (finger/nose \T\ heel/up - test with eyes open) - 0(Absent) 8. Sensory Loss (pinprick arms/legs/face) - 0(Normal) 9. Best Language: Aphasia (description/naming/reading) - 0(No aphasia) 10. Dysarthria (speech clarity - read or repeat words) - 0(Normal) 11. Extinction and Inattention (visual/tactile/auditory/spatial/personal) - 0(No abnormality) Initials: mb8 Signatures: Dispatcher [employer] EDCindi Mcmullen Roman, MD MD rn Roderick Brady, FARM WORKER FARM WORKER pm1 Marzena Givens RN RN vg1 Gurwinder James RN RN mb8 Corrections: (The following items were deleted from the chart) 08:49 08:48 hydrALAZINE 10 mg IVP once ordered. pm1 pm1 14:37 10:25 Telemetry/MedSurg (observation) pm1 bd 14:37 10:25 pm1 bd 16:45 14:37 [facility] ER HOLD bd bd 16:45 14:37 ERHOLD- bd bd
--- NOTE | 2022-06-27 10:26 | ER ---
Nurse's Notes [facility] Name: Ivet Calderon Age: 71 yrs Sex: Female : 1950 Arrival Date: 06/27/2022 Time: 08:17 Bed 6 Private MD: Diagnosis: Headache;Dizziness and giddiness;Hypertensive urgency Presentation: 06/27 08:20 Chief complaint: Patient states: dizziness and tongue numbness since Saturday06/24/22; vg1 stated this morning upon wakening walked to restroom and room began to spin, became unbalanced and fell; denies LOC or hitting head. Denies N/V; states headache and blurred vision. 08:20 Coronavirus screen: Vaccine status: Patient reports being unvaccinated. Client denies vg1 travel out of the [place] in the last 14 days. Ebola Screen: Patient denies exposure to infectious person. Patient denies travel to an Ebola-affected area in the 21 days before illness onset. Initial Sepsis Screen: Does the patient meet any 2 criteria? No. Patient's initial sepsis screen is negative. Does the patient have a suspected source of infection? No. Patient's initial sepsis screen is negative. Risk Assessment: Do you want to hurt yourself or someone else? Patient reports no desire to harm self or others. Onset of symptoms was June 24, 2022. 08:20 Method Of Arrival: Wheelchair vg1 08:20 Acuity: DORYS 2 vg1 09:01 No acute neurological deficit is noted. Pre-hospital glucose is not applicable to this mb8 patient. Triage Assessment: 08:20 General: Appears uncomfortable, Behavior is cooperative, crying. Pain: Complains of vg1 pain in head Pain currently is 8 out of 10 on a pain scale. Pain began 2-3 days ago. Neuro: Level of Consciousness is awake, alert, obeys commands, Oriented to person, place, time, situation, Passenger Train Braker are equal bilaterally Moves all extremities. Gait is unsteady, Speech is normal, Facial symmetry appears normal, Reports blurred vision dizziness, headache numbness in tongue. Historical: - Allergies: 08:35 Morphine (burning to IV site); vg1 - Home Meds: 08:35 aspirin 81 mg Oral chew 1 tab once daily [Active]; Lopressor 50 mg Oral tab 1 tab once vg1 daily [Active]; metformin 500 mg Oral tab 1 tab 2 times per day [Active]; Lisinopril Oral [Active]; - PMHx: 08:35 Diabetes - NIDDM; heart attack; Hypertension; Hypercholesterolemia; vg1 - PSHx: 08:35 Appendectomy; Cholecystectomy; open heart surgery; Stented artery; vg1 - Immunization history:: Client reports having NOT received the Covid vaccine. - Social history:: Smoking status: Patient denies any tobacco usage or history of. Screenin:38 Abuse screen: Denies threats or abuse. Nutritional screening: No deficits noted. tw2 Tuberculosis screening: No symptoms or risk factors identified. Fall Risk Secondary diagnosis (15 points) impaired mobility, reported impaired vision. 08:53 VAN Screening: Arm Drift: Patient shows no arm weakness. Patient is VAN negative. mb8 Visual Disturbance: No visual disturbance noted. Aphasia: No aphasia noted. Neglect: No neglect noted. 08:58 The patient has not been NPO before screening. The patient is alert, able to follow mb8 commands. The patient does not exhibit slurred or garbled speech The patient is not exhibiting difficulty speaking. The patient does not exhibit difficulty understanding words. The patient is able to swallow own secretions with no drooling or need for suction. Patient tolerated one teaspoon of water. No drooling, immediate coughing, gurgling, or clearing of the throat was noted. The patient tolerated 90mL of water. No drooling, immediate coughing, gurgling, or clearing of the throat was noted. The patient passed the bedside swallow screening. Oral medications may be given as ordered. Contact Physician for further diet orders. Provider notified of bedside swallow screening results: Roderick Brady NP. Primary Survey: 08:20 NO uncontrolled hemorrhage observed. A: The client is awake and alert. The airway is vg1 patent. The client is alert. Breathing/Chest: Spontaneous respiratory effort, equal unlabored respirations, breath sounds clear bilaterally, regular pattern, symmetrical chest rise and fall. Respiratory effort: spontaneous, Respiratory pattern: regular. Circulation: No external hemorrhage present. Regular and strong central pulse, skin warm/dry/normal color. Disability Client is alert. Exposure/Environment: All clothing and personal items were removed. Forensic evidence collection is not deemed to be indicated at this time. Items placed in patient belonging bag. There is no evidence of uncontrolled external bleeding. No obvious injuries are noted at this time. Secondary Survey: 08:20 HEENT: No deficits noted. Head No injury/deformity. Gastrointestinal: Abdomen is soft. vg1 : No signs and/or symptoms were reported regarding the genitourinary system. Musculoskeletal: Circulation, motion, and sensation intact. Assessment: 08:48 Pain: Complains of pain in head Pain does not radiate. Pain currently is 10 out of 10 mb8 on a pain scale. Quality of pain is described as aching, Pain began suddenly. Neuro: Level of Consciousness is awake, alert, obeys commands, Oriented to person, place, time, situation, Appropriate for age Passenger Train Braker are equal bilaterally Moves all extremities. Full function Gait is steady, Speech is normal, Facial symmetry appears normal, Pupils are PERRLA, Tingling in right arm Reports headache paresthesias in right arm Denies blurred vision difficulty swallowing, photophobia diplopia. Cardiovascular: Denies chest pain, palpitations, shortness of breath, Rhythm is sinus rhythm. Respiratory: No deficits noted. 09:00 VAN Scoring: Arm Drift: Patients demonstrates NO arm weakness. Patient is VAN Negative. mb8 Visual Disturbance: No visual disturbance noted. Aphasia: No aphasia noted. Neglect: No neglect noted. The patient has not been NPO before screening. The patient is alert, and able to follow commands. The patient does not exhibit slurred or garbled speech. The patient is not exhibiting difficulty speaking. The patient does not exhibit difficulty understanding words. The patient is able to swallow own secretions with no drooling or need for suction. Patient tolerated one teaspoon of water. No drooling, immediate coughing, gurgling, or clearing of the throat was noted. The patient tolerated 90mL of water. No drooling, immediate coughing, gurgling, or clearing of the throat was noted. The patient passed the bedside swallow screening. Oral medications may be given as ordered. Contact Physician for further diet orders. Provider notified of bedside swallow screening results: Roderick Brady NP. 09:01 TNKase (Tenecteplase) Screening: Contraindications: Patient reports onset of signs and mb8 symptoms of stroke greater than 6 hours ago: Yes. 09:54 Reassessment: Patient and/or family updated on plan of care and expected duration. Pain mb8 level reassessed. Patient is alert, oriented x 3, equal unlabored respirations, skin warm/dry/pink. Patient reports CANTRELL is gone and no tongue numbness Patient denies pain at this time. Patient states feeling better. 11:41 Reassessment: Patient and/or family updated on plan of care and expected duration. Pain mb8 level reassessed. Patient is alert, oriented x 3, equal unlabored respirations, skin warm/dry/pink. Vital Signs: 08:20 BP 228 / 71; Pulse 72; Resp 17; Temp 98.6(TE); Pulse Ox 100% on R/A; Weight 73.48 kg; vg1 Height 5 ft. 1 in. (154.94 cm); Pain 8/10; 08:48 BP 226 / 75; Pulse 70; Resp 20; Pulse Ox 98% ; Pain 10/10; mb8 09:26 BP 152 / 112; Pulse 66; Resp 18; Pulse Ox 99% ; mb8 09:39 BP 165 / 96; Pulse 56; mb8 09:54 BP 177 / 62; Pulse 64; Resp 18; Pulse Ox 97% ; Pain 0/10; mb8 11:41 BP 169 / 49; Pulse 52; Resp 18; Pulse Ox 98% ; Pain 0/10; mb8 08:20 Body Mass Index 30.61 (73.48 kg, 154.94 cm) vg1 [place] Coma Score: 08:20 Eye Response: spontaneous(4). Verbal Response: oriented(5). Motor Response: obeys vg1 commands(6). Total: 15. Trauma Score (Adult): 08:20 Eye Response: spontaneous(1); Verbal Response: oriented(1); Motor Response: obeys vg1 commands(2); Systolic BP: > 89 mm Hg(4); Respiratory Rate: 10 to 29 per min(4); [place] Score: 15; Trauma Score: 12 NIH Stroke Scale Scores: 08:53 NIHSS Score: 0 mb8 09:00 NIHSS Score: 0 mb8 ED Course: 08:17 Patient arrived in ED. rg4 08:20 Roderick Brady NP is PHCP. pm1 08:20 Ty Walsh MD is Attending Physician. pm1 08:20 Arm band placed on. vg1 08:28 Placed in gown. Bed in low position. hospital monitor on. Pulse ox on. NIBP on. tw2 08:35 Triage completed. vg1 08:47 Guriwnder James RN is Primary Nurse. mb8 08:54 Inserted saline lock: 22 gauge in right antecubital area, using aseptic technique. tw2 Blood collected. 08:58 No provider procedures requiring assistance completed. mb8 09:13 CT Head Brain wo Cont In Process Unspecified. EDMS 09:28 XRAY Chest (1 view) In Process Unspecified. EDMS 10:23 Gunnar Garcia MD is Hospitalizing Provider. pm1 Administered Medications: 08:49 CANCELLED (Physician Discretion): hydrALAZINE 10 mg IVP once pm1 09:20 Drug: Metoprolol TARTRATE 50 mg Route: PO; mb8 10:00 Drug: Aspirin 325 mg Route: PO; mb8 Medication: 08:53 VIS not applicable for this client. mb8 Outcome: 10:25 Decision to Hospitalize by Provider. pm1 18:27 Patient left the ED. mb8 NIH Stroke Scale - NIH Stroke Score Date: 06/27/2022 Time: 08:53 Total Score = 0 1a. Level of Consciousness (LOC) - 0(Alert) 1b. Level of Consciousness (LOC) (Month \T\ Age) - 0(Both) 1c. LOC Commands (Open \T\ Closes Eyes/Pipe Fitter Marine) - 0(Both) 2. Best Gaze (Lateral Gaze Paresis) - 0(Normal) 3. Visual Field Loss - 0(No visual loss) 4. Facial Palsy - 0(Normal) 5a. Left Arm: Motor (10-second hold) - 0(No drift) 5b. Right Arm: Motor (10-second hold) - 0(No drift) 6a. Left Leg: Motor (5-second hold - always test supine) - 0(No drift) 6b. Right Leg: Motor (5-second hold - always test supine) - 0(No drift) 7. Limb Ataxia (finger/nose \T\ heel/up - test with eyes open) - 0(Absent) 8. Sensory Loss (pinprick arms/legs/face) - 0(Normal) 9. Best Language: Aphasia (description/naming/reading) - 0(No aphasia) 10. Dysarthria (speech clarity - read or repeat words) - 0(Normal) 11. Extinction and Inattention (visual/tactile/auditory/spatial/personal) - 0(No abnormality) Initials: mb8 NIH Stroke Scale - NIH Stroke Score Date: 06/27/2022 Time: 09:00 Total Score = 0 1a. Level of Consciousness (LOC) - 0(Alert) 1b. Level of Consciousness (LOC) (Month \T\ Age) - 0(Both) 1c. LOC Commands (Open \T\ Closes Eyes/Pipe Fitter Marine) - 0(Both) 2. Best Gaze (Lateral Gaze Paresis) - 0(Normal) 3. Visual Field Loss - 0(No visual loss) 4. Facial Palsy - 0(Normal) 5a. Left Arm: Motor (10-second hold) - 0(No drift) 5b. Right Arm: Motor (10-second hold) - 0(No drift) 6a. Left Leg: Motor (5-second hold - always test supine) - 0(No drift) 6b. Right Leg: Motor (5-second hold - always test supine) - 0(No drift) 7. Limb Ataxia (finger/nose \T\ heel/up - test with eyes open) - 0(Absent) 8. Sensory Loss (pinprick arms/legs/face) - 0(Normal) 9. Best Language: Aphasia (description/naming/reading) - 0(No aphasia) 10. Dysarthria (speech clarity - read or repeat words) - 0(Normal) 11. Extinction and Inattention (visual/tactile/auditory/spatial/personal) - 0(No abnormality) Initials: mb8 Signatures: Dispatcher [employer] EDRoderick Rodriguez, JESSIE TOW MOTOR DRIVER pm1 Dafne Daily RN RN 2 Selina Givens 4 Marzena Givens RN RN vg1 Gurwinder James RN RN mb8
[2022-06-27 11:46] LABS: SARS-CoV-2 Antigen Rapid Res Negative (Negative)
--- NOTE | 2022-06-27 12:18 | P.HP ---
Certification for Inpatient Patient admitted to: Observation With expected LOS: <2 Midnights Patient will require the following post-hospital care: None Practitioner: I am a practitioner with admitting privileges, knowledge of patient current condition, hospital course, and medical plan of care. Services: Services provided to patient in accordance with Admission requirements found in Title 42 Section 412.3 of the Code of Federal Regulations Patient History Date of Service: 06/27/22 Reason for admission: Dizziness, Elevated Troponin History of Present Illness: Ms. Ivet Calderon is a pleasant 71-year-old female who has a past medical history of coronary artery disease s/p PCI (September 1999), hypertension, type 2 diabetes, and hyperlipidemia who presents to the [facility] Emergency Department for chest pain and dizziness. She reports that, over the last 3-4 days, she has been experiencing intermittent episodes of dizziness. She states that these episodes have been associated with intermittent chest pain and perioral numbness/tingling. She states that each episode lasts 15-20 minutes at a time. Earlier today, it occurred at rest, while watching television. She denies any obvious inciting or alleviating factors. She grades her symptoms as 8/10 in severity. She has not tried taking any medications for her symptoms. On review of systems, she denies any fevers, chills, headaches, syncope, weakness, palpitations, shortness of breath, wheezing, cough, abdominal pain, nausea/vomiting, diarrhea, constipation, hemato chezia, melena, dysuria, hematuria, myalgia, or any other symptoms. She presented to the Emergency Department for further evaluation. Upon presentation, her vital signs were notable for a blood pressure of 228/71. Her laboratory studies were notable for a glucose of 214 and an initial troponin of 209.5. EKG revealed normal sinus rhythm without STEMI criteria. Chest x-ray revealed, "no acute cardiopulmonary process. No significant change from comparison study." CT head revealed, "no acute intracranial finding identifiable. Patient's primarily bifrontal atrophy pattern and chronic ischemic pattern are not significantly different from the 2019 comparison." In the Emergency Department, she was given metoprolol. She was admitted to the General Internal Medicine service for further evaluation. Allergies morphine Adverse Reaction (Verified 05/23/20 04:00) Nausea/Vomiting Home medications list reviewed: Yes Home Medications: Aspirin Chewable [Aspirin Chewable*] 81 mg PO DAILY 07/27/19 Atorvastatin Calcium [Lipitor] 80 mg PO DAILY 08/21/21 Iron Polysaccharide Complex [Polysaccharide Iron] 150 mg PO DAILY #30 capsule 08/21/21 Metformin HCl [Glucophage*] 850 mg PO BID 08/21/21 Metoprolol Tartrate [Lopressor*] 25 mg PO BID 08/21/21 Lisinopril [Zestril] 1 tab PO BID 06/27/22 - Past Medical/Surgical History Diabetic: Yes -: HTN -: NIDDM -: blurry vision both eyes -: MO -: iro ndeficiency anemia -: CAD -: Tubal Ligation -: Stent 2018 -: Eye Sx -: appendectomy -: CABG -: Cholecystectomy - Family History Mother -: Lung disease, Diabetes Father -: Diabetes, Cancer, Other (see notes) Notes: alzheimers - Social History Smoking Status: Never smoker Alcohol use: No CD- Drugs: No Caffeine use: No Review of Systems 10-point ROS is otherwise unremarkable General: Unremarkable Eyes: Unremarkable ENT: Unremarkable Respiratory: Unremarkable Cardiovascular: Chest Pain Gastrointestinal: Unremarkable Genitourinary: Unremarkable Musculoskeletal: Unremarkable Integumentary: Unremarkable Neurological: Other (dizziness) Physical Examination - Vital Signs Temperature: 98.6 F Blood Pressure: 177/62 Pulse: 64 Respirations: 18 Pulse Ox (%): 97 - Physical Exam General: Alert, In no apparent distress, Oriented x3 HEENT: Atraumatic, PERRLA, Mucous membr. moist/pink, EOMI, Sclerae nonicteric Neck: Supple, JVD not distended Respiratory: Clear to auscultation bilaterally, Normal air movement Cardiovascular: No edema, Regular rate/rhythm, Normal S1 S2, No gallops, No rubs, No murmurs Gastrointestinal: Normal bowel sounds, Hypoactive, Non-distended, No tenderness, No rebound, No guarding Musculoskeletal: No clubbing Integumentary: No rashes Neurological: Normal speech, Normal strength at 5/5 x4 extr, Normal tone, Sensation intact, Cranial nerves 3-12 intact, Normal reflexes 2+, Normal affect (with the exception of mild horizontal nystagmus) - Studies Laboratory Data (last 24 hrs) 06/27/22 08:55: PT 11.1, INR 1.01 06/27/22 08:55: WBC 7.40, Hgb 14.5, Hct 41.5, Plt Count 240 06/27/22 08:55: Sodium 138, Potassium 4.1, BUN 12, Creatinine 0.87, Glucose 214 H, Magnesium 1.9, Total Bilirubin 0.4, AST 16, ALT 19, Alkaline Phosphatase 88 Assessment and Plan - Plan NIH Stroke Scale 1a. Level of consciousness: 0 - Alert; keenly responsive 1b. LOC questions: 0 - Both questions right 1c. LOC commands: 0 - Performs both tasks 2. Best Gaze: 0 - Normal 3. Visual: 0 - No visual loss 4. Facial Palsy: 0 - Normal symmetry 5a. Motor left arm: 0 - No drift for 10 seconds 5b. Motor right arm: 0 - No drift for 10 seconds 6a. Motor left le - No drift for 5 seconds 6b. Motor right le - No drift for 5 seconds 7. Limb ataxia: 0 - No ataxia 8. Sensory: 0 - Normal; no sensory loss 9. Best Language: 0 - Normal; no aphasia 10. Dysarthria: 0 - Normal 11. Extinction and Inattention: 0 - No abnormality 12. Distal motor function: 0 - No abnormality Total Score: 0 # Hypertensive Emergency with Elevated Troponin # History of Coronary Artery Disease s/p PCI (September 1992) # Dyslipidemia Based on history and physical examination, cannot exclude ischemia as a possible etiology of her chest pain. - Evaluation thus far: - EKG: No obvious STEMI criteria, trend - Serial troponin: 209.5 -> 179.5 - Ordered transthoracic echocardiogram - Ordered chest x-ray = "no acute cardiopulmonary process." - Ordered d-dimer - Management plan: - Consult Cardiology and spoke with Dr. Tan - recommendations appreciated - S/P aspirin 324 mg PO x 1 in ED - Continue home aspirin, atorvastatin, metoprolol, lisinopril - PRN hydralazine for SBP > 180 mmHg # Dizziness with Perioral Tingling - Evaluate for Posterior Circulation Cerebrovascular Accident She has several risk factors for CVA including diabetes, hypertension, and hyperlipidemia. - Consulted Neurology and spoke with Dr. King - recommendations appreciated - Admit under observation status - No neurologic deficits on my exam - NIHSS = 0 - Allow permissive hypertension for tonight - q4hr neurochecks - Ordered MR brain + MRA head/neck - Ordered TTE - PT/OT evaluation requested - Ordered risk profile: Hgb A1c, lipid panel, TSH - Started aspirin + atorvastatin # Hyperglycemia in Type II Diabetes Mellitus - Ordered Hgb A1c - Correction scale insulin - Hold home metformin Gunnar Garcia M.D. Discharge Plan: Home Plan to discharge in: 24 Hours - Advance Directives Does patient have a Living Will: No Does patient have a Durable POA for Healthcare: No - Code Status/Comfort Care Code Status Assessed: Yes Code Status: Full Code
[2022-06-27] MEDS ORDERED: ASPIRIN 81 MG CHEWABLE TABLET PO ONE (12:30)
[2022-06-27 13:15] LABS: Thyroid Stimulating Hormone 1.16 uIU/mL (0.360-3.740)
--- NOTE | 2022-06-27 15:20 | RAD REPORT ---
EXAM DESCRIPTION: MRI - Brain W/Wo Cont - 06/27/2022 3:04 pm CLINICAL HISTORY: Possible Posterior Cerebellar CVA? COMPARISON: MRA Head Wo Cont dated 06/27/2022 TECHNIQUE: Sagittal T1-weighted images were obtained along with PD/heavily T2-weighted and T2-FLAIR images. Axial DWI and ADC mapping sequences were also obtained along with coronal heavily T2-weighted images were obtained. Post contrast enhanced images were obtained. FINDINGS: No intracranial hemorrhage, mass or acute infarction. No edema or shift of midline structu res. No extra-axial fluid collections. Signal voids are seen as a normal finding in the major intracr anial vessels. Mild chronic small vessel ischemic changes. No abnormal enhancement. Age advanced cere bral atrophy. Tiny small bilateral chronic cerebellar infarcts. No mastoid effusion.Paranasal sinuses are clear. IMPRESSION: No acute intracranial abnormality. No abnormal enhancement. Tiny remote cerebellar infar cts. .
--- NOTE | 2022-06-27 15:24 | RAD REPORT ---
EXAM DESCRIPTION: MRI - MRA Neck W/Wo Cont - 06/27/2022 3:03 pm CLINICAL HISTORY: Possible Posterior Cerebellar CVA? COMPARISON: No comparisons FINDINGS: Contrast enhance 2D [id number] MR angiography of the neck vessels was performed. No stenosis of either carotid systems identified. Possible moderate stenosis at the origin of the rig ht vertebral artery. The left vertebral artery is dominant. Both are otherwise widely patent. IMPRESSION: Possible moderate to severe stenosis at the origin of the nondominant right vertebral ar john paul. The remaining vessels are widely patent.
--- NOTE | 2022-06-27 15:31 | RAD REPORT ---
EXAM DESCRIPTION: MRI - MRA Head Wo Cont - 06/27/2022 3:04 pm CLINICAL HISTORY: Possible Posterior Cerebellar CVA? CVA COMPARISON: None FINDINGS: 3D noncontrast [id number] MR angiography of the [place] was performed. No aneurysm or vascular malformation is seen. Reference neck MRA. The right vertebral artery terminat es in a branch of the PICA. The basilar artery has a moderate narrowing distally. This may be develop mental. type left . The right is diminutive and possibly occluded at the distal P1 and p roximal P2 segments. The visualized dural venous sinuses appear patent. IMPRESSION: Intact anterior circulation. The posterior circulation has anatomic variants as noted ab ove. Narrowing of the distal basilar artery may be developmental. Diminutive and possibly occluded ri ght distal P1/ proximal P2 segments of the .
[2022-06-27] MEDS ORDERED: HYDRALAZINE HCL 20 MG/ML VIAL IV PRN (15:50)
[2022-06-27] MEDS: CLOPIDOGREL 75 MG TABLET PO SCH (18:08)
[2022-06-27] MEDS ORDERED: ATORVASTATIN 40 MG TAB PO SCH (21:00)
[2022-06-27] MEDS: ENOXAPARIN 40 MG/0.4 ML SQ SCH (22:47)
[2022-06-28] MEDS: METOPROLOL XL 25 MG TAB PO SCH (06:01)
[2022-06-28] MEDS: ACETAMINOPHEN 325 MG TABLET PO PRN ×3 (06:48→21:10)
[2022-06-28 06:51] LABS: Phosphorus 3.5 mg/dL (2.5-4.9); Potassium 3.9 mmol/L (3.5-5.1)
[2022-06-28] MEDS: CLOPIDOGREL 75 MG TABLET PO SCH (09:00)
[2022-06-28] MEDS: ASPIRIN 81 MG CHEWABLE TABLET PO SCH (09:35)
[2022-06-28] MEDS: FOLIC ACID 1 MG TABLET PO SCH (09:35)
[2022-06-28] MEDS: lisinopriL 20 MG TAB PO SCH (09:35)
[2022-06-28] MEDS: ENOXAPARIN 40 MG/0.4 ML SQ SCH (09:36)
[2022-06-28 10:25] VITALS: O2SAT 100
--- NOTE | 2022-06-28 13:38 | EKG ---
Test Date: 2022-06-27 Test Time: 08:38:28 Hydrogeologist: GRAZYNA MEASUREMENT RESULTS: Intervals: Rate: 69 IL: 150 QRSD: 80 QT: 388 QTc: 415 Stacy: P: 35 IL: 150 QRS: 38 T: 61 INTERPRETIVE STATEMENTS: Normal sinus rhythm Possible Anterior infarct, age undetermined Abnormal ECG Compared to ECG 08/21/2021 10:30:16 No significant changes Electronically Signed On 06-28-22 13:35:33 CDT by Arnaldo Tan
--- NOTE | 2022-06-28 14:27 | ECHO ---
HEIGHT: 5 ft 1 in WEIGHT: 73 lb 7.68 oz DATE OF STUDY: 06/28/[address]: Gunnar Garcia MD 2-DIMENSIONAL: YES M.MODE: YES DOPPLER: YES COLOR FLOW: YES TDS: NO PORTABLE: YES DEFINITY: NO BUBBLE STUDY: NO DIAGNOSIS: CHEST PAIN CARDIAC HISTORY: CATHERIZATION:YES SURGERY: YES PROSTHETIC VALVE: NO PACEMAKER: NO MEASUREMENTS (cm) DIASTOLIC (NORMALS) SYSTOLIC (NORMALS) IVSd 1.0 (0.6-1.2) LA Diam 2.8 (1.9-4.0) LVEF 65% LVIDd 4.6 (3.5-5.7) LVIDs 3.0 (2.0-3.5) %FS 36% LVPWd 1.1 (0.6-1.2) Ao Diam 2.5 (2.0-3.7) 2 DIMENSIONAL ASSESSMENT: RIGHT ATRIUM: NORMAL LEFT ATRIUM: NORMAL RIGHT VENTRICLE: NORMAL LEFT VENTRICLE: NORMAL TRICUSPID VALVE: MITRAL VALVE: PULMONIC VALVE: NORMAL AORTIC VALVE: NORMAL PERICARDIAL EFFUSION: NONE AORTIC ROOT: NORMAL LEFT VENTRICULAR WALL MOTION: NORMAL DOPPLER/COLOR FLOW: MILD TRICUSPID AND MITRAL REGURGITATION. COMMENTS: NORMAL LEFT VENTRICULAR EJECTION FRACTION 60-65% WITH NORMAL WALL MOTION. MILD DIASTOLIC DYSFUNCTION GRADE I. MILD TRICUSPID AND MITRAL REGURGITATION. TECHNOLOGIST: Katy SANCHEZ
[2022-06-28 14:31] VITALS: BMI 30.4
--- NOTE | 2022-06-28 19:00 | P.PN ---
Subjective Date of Service: 06/28/22 Chief Complaint: Dizziness, Elevated Troponin Subjective: No new changes No acute events overnight. She is doing well this morning, but continues to experience significant dizziness with ambulation. She has been working well with PT. Awaiting OT evaluation. Review of Systems 10-point ROS is otherwise unremarkable Neurological: Other (dizziness) Physical Examination - Vital Signs Temperature: 97.0 F Blood Pressure: 146/56 Pulse: 56 Respirations: 18 Pulse Ox (%): 91 Assessment And Plan - Plan - Physical Exam General: Alert, In no apparent distress, Oriented x3 HEENT: Atraumatic, PERRLA, Mucous membr. moist/pink, EOMI, Sclerae nonicteric Neck: Supple, JVD not distended Respiratory: Clear to auscultation bilaterally, Normal air movement Cardiovascular: No edema, Regular rate/rhythm, Normal S1 S2, No gallops, No rubs, No murmurs Gastrointestinal: Normal bowel sounds, Hypoactive, Non-distended, No tenderness, No rebound, No guarding Musculoskeletal: No clubbing Integumentary: No rashes Neurological: Normal speech, Normal strength at 5/5 x4 extr, Normal tone, Sensation intact, Cranial nerves 3-12 intact, Normal reflexes 2+, Normal affect (with the exception of mild horizontal nystagmus) - Studies Laboratory Data (last 24 hrs) 06/27/22 08:55: PT 11.1, INR 1.01 06/27/22 08:55: WBC 7.40, Hgb 14.5, Hct 41.5, Plt Count 240 06/27/22 08:55: Sodium 138, Potassium 4.1, BUN 12, Creatinine 0.87, Glucose 214 H, Magnesium 1.9, Total Bilirubin 0.4, AST 16, ALT 19, Alkaline Phosphatase 88 Assessment and Plan - Plan NIH Stroke Scale 1a. Level of consciousness: 0 - Alert; keenly responsive 1b. LOC questions: 0 - Both questions right 1c. LOC commands: 0 - Performs both tasks 2. Best Gaze: 0 - Normal 3. Visual: 0 - No visual loss 4. Facial Palsy: 0 - Normal symmetry 5a. Motor left arm: 0 - No drift for 10 seconds 5b. Motor right arm: 0 - No drift for 10 seconds 6a. Motor left le - No drift for 5 seconds 6b. Motor right le - No drift for 5 seconds 7. Limb ataxia: 0 - No ataxia 8. Sensory: 0 - Normal; no sensory loss 9. Best Language: 0 - Normal; no aphasia 10. Dysarthria: 0 - Normal 11. Extinction and Inattention: 0 - No abnormality 12. Distal motor function: 0 - No abnormality Total Score: 0 # Suspected Posterior Cerebral Artery Cerebrovascular Accident She has several risk factors for CVA including diabetes, hypertension, and hyperlipidemia. - Consulted Neurology and spoke with Dr. King - recommendations appreciated - No neurologic deficits on my exam - NIHSS = 0 - Allow permissive hypertension for tonight - q4hr neurochecks - MR brain = "No acute intracranial abnormality. No abnormal enhancement. Tiny remote cerebellar infarcts." - MRA head = "Intact anterior circulation. The posterior circulation has anatomic variants as noted above. Narrowing of the distal basilar artery may be developmental. Diminutive and possibly occluded right distal P1/ proximal P2 segments of the FIELD EDUCATION DIRECTOR." - MRA neck = "Possible moderate to severe stenosis at the origin of the nondominant right vertebral artery. The remaining vessels are widely patent." - TTE = "normal left ventricular ejection fraction 60-65% with normal wall motion. mild diastolic dysfunction grade i. mild tricuspid and mitral regurgitation." - PT/OT evaluation requested - Ordered risk profile: - Hgb A1c = 7.5 % - Lipid panel: TC 189, TG 108, LDL 122, HDL 45 - TSH = 45 - Started aspirin, atorvastatin, folic acid, clopidogrel # Hypertensive Emergency with Elevated Troponin # History of Coronary Artery Disease s/p PCI (September 1999 ) # Dyslipidemia Based on history and physical examination, cannot exclude ischemia as a possible etiology of her chest pain. - Evaluation thus far: - EKG: No obvious STEMI criteria, trend - Serial troponin: 209.5 -> 179.5 -> 154.4 - TTE = "normal left ventricular ejection fraction 60-65% with normal wall motion. mild diastolic dysfunction grade i. mild tricuspid and mitral regurgitation." - Ordered chest x-ray = "no acute cardiopulmonary process." - D-dimer = 762 - CT chest angiogram and bliateral lower extremity Doppler ordered - Management plan: - Consult Cardiology and spoke with Dr. Tan - recommendations appreciated - S/P aspirin 324 mg PO x 1 in ED - Continue home aspirin, atorvastatin, metoprolol, lisinopril - PRN hydralazine for SBP > 180 mmHg # Hyperglycemia in Type II Diabetes Mellitus - Hgb A1c = 7.5 % - Correction scale insulin - Hold home metformin Gunnar Garcia M.D.
--- NOTE | 2022-06-28 20:37 | RAD REPORT ---
EXAM DESCRIPTION: US - Extrem Venous W Compress David - 06/28/2022 8:25 pm CLINICAL HISTORY: elevated d-dimer Bilateral leg edema and swelling. COMPARISON: Extrem Venous W Compress David dated 03/17/2019 TECHNIQUE: Real-time sonographic interrogation of the left and right lower extremity deep venous sys tems was performed. FINDINGS: Normal compressibility, flow augmentation, phasic flow and spontaneous flow is identified in both the left and right lower extremity deep venous systems. IMPRESSION: No sonographic evidence of left or right lower extremity deep venous thrombosis.
[2022-06-28] MEDS ORDERED: ATORVASTATIN 40 MG TAB PO SCH (21:00)
--- NOTE | 2022-06-28 21:11 | RAD REPORT ---
EXAM DESCRIPTION: CT - Chest For Pe Angio - 06/28/2022 8:52 pm CLINICAL HISTORY: Chest pain. elevated d-dimer COMPARISON: Thorax Wo Con dated 06/14/2021 TECHNIQUE: CT angiogram of the pulmonary arteries was performed with MIP. All CT scans are performed using dose optimization technique as appropriate and may include automated exposure control or mA/KV adjustment according to patient size. FINDINGS: No evidence of pulmonary thromboembolism. No acute aortic finding demonstrated. The lungs are clear. No significant pericardial or pleural fluid. No concerning bony finding. IMPRESSION: No evidence of pulmonary thromboembolism. No acute lung findings.
[2022-06-29] MEDS: METOPROLOL XL 25 MG TAB PO SCH (06:00)
[2022-06-29 06:16] LABS: Potassium 3.9 mmol/L (3.5-5.1)
[2022-06-29] MEDS ORDERED: POTASSIUM CL SA 10 MEQ TAB PO ONE (09:00)
[2022-06-29] MEDS: lisinopriL 20 MG TAB PO SCH (10:16)
[2022-06-29] MEDS: ACETAMINOPHEN 325 MG TABLET PO PRN (10:17)
[2022-06-29] MEDS: CLOPIDOGREL 75 MG TABLET PO SCH (10:17)
[2022-06-29] MEDS: ASPIRIN 81 MG CHEWABLE TABLET PO SCH (10:17)
[2022-06-29] MEDS: FOLIC ACID 1 MG TABLET PO SCH (10:17)
[2022-06-29] MEDS: ENOXAPARIN 40 MG/0.4 ML SQ SCH (10:17)
--- NOTE | 2022-06-29 15:41 | P.DS ---
Admission Date: 06/27/22 Discharge Date: 06/29/22 Disposition: DC HOME/HOME HEALTH CARE Discharge Condition: GOOD Reason for Admission: Dizziness, Elevated Troponin Consultations: 1. Neurology Hospital Course: DIAGNOSES: # Suspected Posterior Cerebral Artery Cerebrovascular Accident # Hypertensive Emergency with Type II NSTEMI (Demand Ischemia) # Possible Moderate-Severe Right Vertebral Artery Stenosis # History of Coronary Artery Disease s/p PCI (September 1999 ) # Dyslipidemia # Hyperglycemia in Type II Diabetes Mellitus HOSPITAL COURSE: Ms. Ivet Calderon is a pleasant 71-year-old female who has a past medical history of coronary artery disease s/p PCI (September 1999), hypertension, type 2 diabetes, and hyperlipidemia who was admitted to the [facility] on 06/27/2022 for chest pain and dizziness. She was admitted to the Medicine service. Upon further evaluation, EKG revealed normal sinus rhythm without STEMI criteria. Her troponin trend was 209.5, 179.5, and 154.4, respectively. Chest x-ray revealed, "no acute cardiopulmonary process. No significant change from comparison study." CT head revealed, "no acute intracranial finding identifiable. Patient's primarily bifrontal atrophy pattern and chronic ischemic pattern are not significantly different from the 2019 comparison." Transthoracic echocardiogram revealed, "normal left ventricular ejection fraction 60-65% with normal wall motion. Mild diastolic dysfunction grade I. Mild tricuspid and mitral regurgitation." Further neurologic evaluation revealed: an MR brain with "no acute intracranial abnormality. No abnormal enhancement. Tiny remote cerebellar infarcts," an MRA head with, "intact anterior circulation. The posterior circulation has anatomic variants as noted above. Narrowing of the distal basilar artery may be developmental. Diminutive and possibly occluded right distal P1/ proximal P2 segments of the FINANCIAL REPRESENTATIVE," and an MRA neck with, "possible moderate to severe stenosis at the origin of the nondominant right vertebral artery. The remaining vessels are widely patent." Neurology was consulted and her case was reviewed with Dr. King, who recommended aspirin, statin, and clopidogrel, which have been started. She was evaluated by Physical Therapy and cleared for discharge home with Home Health services. With the assistance of case management, this was arranged. In regards to her elevated troponin and chest pain. She was evaluated by Dr. Shook, who believes it to be secondary to demand ischemia. He has cleared her for discharge with a Cardiology follow-up appointment. On 06/29/2022, she was seen on rounds and deemed medically stable for discharge. She was discharged with instructions to schedule follow-up appointments with her PCP (Dr. Lao) in 3-5 days, with Cardiology (Dr. Shook) in 5-7 days, and with Neurology (Dr. King) in 5-7 days. She was provided prescriptions for atorvastatin and clopidogrel. She was given the opportunity to ask questions and reported no further questions. Furthermore, all questions were answered to the best of my ability. Today, I personally spent 25 minutes on her case, of which greater than 50% of the time was spent in patient education, counseling, and coordination of care as described above. - Physical Exam General: Alert, In no apparent distress, Oriented x3 HEENT: Atraumatic, PERRLA, Mucous membr. moist/pink, EOMI, Sclerae nonicteric Neck: Supple, JVD not distended Respiratory: Clear to auscultation bilaterally, Normal air movement Cardiovascular: No edema, Regular rate/rhythm, Normal S1 S2, No gallops, No rubs, No murmurs Gastrointestinal: Normal bowel sounds, Hypoactive, Non-distended, No tenderness, No rebound, No guarding Musculoskeletal: No clubbing Integumentary: No rashes Neurological: Normal speech, Normal strength at 5/5 x4 extr, Normal tone, Sensation intact, Cranial nerves 3-12 intact, Normal reflexes 2+, Normal affect (with the exception of mild horizontal nystagmus) NIH Stroke Scale 1a. Level of consciousness: 0 - Alert; keenly responsive 1b. LOC questions: 0 - Both questions right 1c. LOC commands: 0 - Performs both tasks 2. Best Gaze: 0 - Normal 3. Visual: 0 - No visual loss 4. Facial Palsy: 0 - Normal symmetry 5a. Motor left arm: 0 - No drift for 10 seconds 5b. Motor right arm: 0 - No drift for 10 seconds 6a. Motor left le - No drift for 5 seconds 6b. Motor right le - No drift for 5 seconds 7. Limb ataxia: 0 - No ataxia 8. Sensory: 0 - Normal; no sensory loss 9. Best Language: 0 - Normal; no aphasia 10. Dysarthria: 0 - Normal 11. Extinction and Inattention: 0 - No abnormality 12. Distal motor function: 0 - No abnormality Total Score: 0 Vital Signs/Physical Exam: Temp Pulse Resp BP Pulse Ox 97.4 F 70 20 134/63 94 06/29/22 12:00 06/29/22 12:00 06/29/22 12:00 06/29/22 12:00 06/29/22 12:00 Laboratory Data at Discharge: WBC 7.40 K/uL (4.3-10.9) 06/27/22 08:55 Hgb 14.5 g/dL (12.0-15.0) 06/27/22 08:55 Hct 41.5 % (36.0-45.0) 06/27/22 08:55 Plt Count 240 K/uL (152-406) 06/27/22 08:55 PT 11.1 SECONDS (9.5-12.5) 06/27/22 08:55 INR 1.01 06/27/22 08:55 Sodium 138 mmol/L (136-145) 06/29/22 05:27 Potassium 3.9 mmol/L (3.5-5.1) 06/29/22 05:27 BUN 22 mg/dL (7-18) H 06/29/22 05:27 Creatinine 0.71 mg/dL (0.55-1.3) 06/29/22 05:27 Glucose 158 mg/dL (74-106) H 06/29/22 05:27 Phosphorus 3.5 mg/dL (2.5-4.9) 06/28/22 05:48 Magnesium 2.0 mg/dL (1.8-2.4) 06/28/22 05:48 Total Bilirubin 0.4 mg/dL (0.2-1.0) 06/27/22 08:55 AST 16 U/L (15-37) 06/27/22 08:55 ALT 19 U/L (12-78) 06/27/22 08:55 Alkaline Phosphatase 88 U/L (45-117) 06/27/22 08:55 Triglycerides 108 mg/dL (<150) 06/27/22 12:43 Cholesterol 189 mg/dL (<200) 06/27/22 12:43 HDL Cholesterol 45 mg/dL (40-60) 06/27/22 12:43 Cholesterol/HDL Ratio 4.20 06/27/22 12:43 Home Medications: Aspirin Chewable [Aspirin Chewable*] 81 mg PO DAILY 07/27/19 Metformin HCl [Glucophage*] 850 mg PO BID 08/21/21 Metoprolol Tartrate [Lopressor*] 25 mg PO BID 08/21/21 Lisinopril [Zestril] 1 tab PO BID 06/27/22 Atorvastatin Calcium [Lipitor] 40 mg PO BEDTIME #30 tab 06/29/22 Clopidogrel Bisulfate [Plavix*] 75 mg PO DAILY #30 tab 06/29/22 New Medications: Atorvastatin Calcium [Lipitor] 40 mg PO BEDTIME #30 tab Clopidogrel Bisulfate [Plavix*] 75 mg PO DAILY #30 tab Physician Discharge Instructions: 1. Please schedule a follow-up with your PCP (Dr. Lao) in 3-5 days 2. Please schedule a follow-up with Neurology (Dr. King) in 5-7 days 3. Please schedule a follow-up with Cardiology (Dr. Shook) in 5-7 days Followup: Dimas King MD [ASSOCIATE-ACTIVE - CAN ADMIT] - Shant Lao DO [ACTIVE - CAN ADMIT] - Alden Shook MD [ACTIVE - CAN ADMIT] - Time spent managing pt's care (in minutes): 25
[2022-06-29 16:18] VITALS: BP 155/68; TEMP 97
--- NOTE | 2022-07-01 18:40 | CON ---
Date of Consultation: 06/27/2022 Reason For Consultation: Elevated troponin, atypical chest pain. History Of Present Illness: Ms. Calderon is 71 years old. She had a history of CABG, RCA stent in 2019 , 80% left internal carotid artery stenosis. She is status post carotid endarterectomy in 2019. Cam e in with nonspecific symptoms including atypical chest pain, dizziness, falling, some numbness. Den ies any nausea, vomiting, diaphoresis, PND, orthopnea, pedal edema, palpitations, or syncope. Allergies: SHE IS ALLERGIC TO MORPHINE. Review of Systems: Negative. Social History: Negative. Family History: Negative. Past Medical History: Include diabetes, hypertension, dyslipidemia, CABG, CVA, stent, cholecystectom y, appendectomy. Medications: At home include aspirin, Lopressor, metformin. Physical Examination: Vital Signs: Stable. She was afebrile. She was in a sinus rhythm. HEENT: Negative. Neck: Supple with no bruit. Chest: Clear to auscultation and percussion. Cardiac: Revealed a regular rhythm and rate with S4 gallops. No murmurs or rubs. Abdomen: Benign. Extremities: Revealed no clubbing, cyanosis, or edema. Diagnostic Data: Includes glucose 160. Troponin was minimally elevated. She had an extensive reginald p so far including a chest x-ray that was normal. Her EKG showed possible old anterior NE. Head CT was negative. Brain MRI showed tiny remote cerebellar infarct. Brain MRI with MRA showed possibly o ccluded right distal P1 and P2 segment of the [employer]. Impression And Plan: Very atypical chest pain, noncardiac in nature and the patient with history of diabetes, coronary artery bypass graft, stent, carotid endarterectomy, dyslipidemia. I will make irma e she has an outpatient stress test in the near future for now as echocardiogram is pending. She has rather had an extensive cerebral vascular workup. 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 We will see what her echocardiogram shows before making further decisions. Co ntinue present regimen for now. NB/MODL Voice ID: [id number] Report ID: [id number]
--- NOTE | 2022-07-01 19:03 | PN ---
Date of Progress Note: 06/28/2022 Subjective: Ms. Calderon came in with atypical chest pain, tongue numbness, appeared to have some cereb ellar infarcts that are old, appears to have a patent carotid endarterectomy site. EKG was unremarka ble. Troponin was not clinically significant. Echocardiogram was perfectly normal. Physical Examination: Vital Signs: Today, her blood pressure is 122/60. Her vital signs are perfectly normal. She is in sinus rhythm. O2 saturation is 100%. Diagnostic Data: Her laboratory evaluation is within normal limits. Medications: She is on aspirin, Plavix, Lipitor, Lovenox, metoprolol, lisinopril. Plan: From a cardiac standpoint, I will sign off her case. I will plan to do an outpatient Lexiscan on her in the near future, and we will see her. MARGUERITE/RIANNA Voice ID: [id number] Report ID: [id number]
== END 2022-06-29 18:30 | disposition home health service (06) ==
LOC: ER 08:12 → ERHOLD 12:07 → 4TH 17:56
PROVIDERS: ADMIT Internal Medicine; ATTEND Internal Medicine
DX: I21.A1 Myocardial infarction type 2 (principal); I16.1 Hypertensive emergency; R77.8 Other specified abnormalities of plasma proteins; I25.10 Atherosclerotic heart disease of native coronary artery without angina pectoris; I15.8 Other secondary hypertension; I65.22 Occlusion and stenosis of left carotid artery; I25.2 Old myocardial infarction; I10 Essential (primary) hypertension; E78.5 Hyperlipidemia, unspecified; R29.700 NIHSS score 0; E11.65 Type 2 diabetes mellitus with hyperglycemia; Z95.1 Presence of aortocoronary bypass graft; Z95.5 Presence of coronary angioplasty implant and graft; Z88.6 Allergy status to analgesic agent; Z20.822 Contact with and (suspected) exposure to COVID-19
CPT/HCPCS: 93005; 93306; 85025; 80048 ×3; 36415 ×3; 83735 ×2; 84100; 85610; 80061; 82947 ×6; 85379; 80076; 84443; 83036; 84484 ×3; 70450; 71275; 71045; 93970; 70553; 70544; 70549; 97116 ×3; 97165; 97530 ×3; 99284; 87811; Q9967; A9577; J0360; J1650 ×3; G0378 ×5

== ENCOUNTER 2022-07-07 13:25 | Emergency (ER) | payer OTHER ==
--- OUTSIDE RECORDS SUMMARY | 2022-07-07 13:31 | XMS REPORT | Continuity of Care Document ---
:1950 Author Organization [facility] t Address [address] [place] [address] Care Team Providers Name Role Phone Pcp, Patient Does Not Have A Primary Care Physician [phone] Shant Lao Attending Clinician Unavailable JUAN GALLARDO Attending Clinician Unavailable CINTHIA GARCIA Attending Clinician Unavailable UTE YOST Attending Clinician Unavailable Cinthia Vincent Attending Clinician Ute Yost MD Attending Clinician Carol Ann Beatty NP Attending Clinician Charlette Barber Attending Clinician Doctor Unassigned, [place] Attending Clinician Unavailable Juan Gallardo MD Attending Clinician [phone] Maribell Moe MD Attending Clinician Last-Odjudit_J_SOL Attending Clinician Unavailable YAMEL MONIQUE Attending Clinician Unavailable JUAN GALLARDO Admitting Clinician Unavailable Ige-Odunuga_J_AH Admitting Clinician Unavailable YAMEL MONIQUE Admitting Clinician Unavailable Payers Payer Name Policy Type Policy Number Effective Date Expiration Date Ad prieto [employer] ALL [id number] 2018 00:00:00 EAMON GIBBONS PLS [id number] 2021 HMO 00:00:00 [employer] [place] - [id number] 2019 [employer] 00:00:00 (MEDICARE REPLACEMENT/ADVANT AGE - HMO) Problems Condition Condition Condition Status Onset Resolution Last Treating Co mments Source Name Details Category Date Date Treatment Clinician Date Left Left Disease Active 2019-[address] carotid carotid 207 [facility] artery artery 00:00: Medical stenosis stenosis 00 Center S/P CABG x S/P CABG x Disease Active 2018-[address] 1 by 1 by 0-16 Reji Gallardo on [facility] on 00:00: Me dical 07/29/2019 07/29/2019 00 Ce nter Coronary Coronary Disease Active 2018-10 [facility] t artery artery 0-15 kes disease disease 00:00: Medical 00 Center Other Other Disease Active Overview: Univer s appendicit appendicit 6-06 Formattin ity of is is 00:00: g of this [place] note Medical might be Branch different from the original. Added automatic ally from request for surgery [id number] HLD HLD Disease Active Univers (hyperlipi (hyperlipi 04-18 it y of demia) demia) 00:00: [place] [address] Medical Branch Abnormal Abnormal Disease Active Unive rs EKG EKG 04-18 ity of 00:00: [place] [address] Medical Branch Anemia due Anemia, Problem Comm on to blood blood loss Spir it loss - [facility] Laboratory Abnormal Problem Com mon test laboratory Spirit result test - [facility] abnormal [facility] Type II Diabetic Problem Common diabetes eye exam Spirit mellitus - [facility]I without St complicati [facility] [id number] Mixed Problem Common hyperlipid Spirit emia - [facility] [id number] Stented Problem Commo n coronary Spirit artery - [facility] [id number] Essential Problem Comm on (primary) Spirit hypertensi - [facility] on [facility] [id number] Demand Problem Common ischemia Spirit - [facility] [id number] [place] Problem Common hyperten Spirit preg-unsp - 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 [id number] Coronary Problem Comm on artery Spirit disease - [facility] involving [facility] coronary Medical artery of [place] heart with other form of angina pectoris [id number] Type 2 Problem Common diabetes Spirit mellitus - [facility] long-term current use of insulin [id number] Iron Problem Common deficiency Spirit anemia, - [facility] unspecifie [facility] iron [facility] deficiency Medica l anemia Center type [id number] 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 NO KNOWN Allergy Active [facility] ALLERGIE S Family History Family Member Diagnosis Comments Start Date Stop Date Source Natural brother Heart attack [facility] Natural father Diabetes [facility] Natural father Heart disease [facility] Natural mother Diabetes [facility] Center Natural mother Heart attack [facility] Social History Social Habit Start Date Stop Date Quantity Comments Source History of Common Spirit - Tobacco Use [facility] Exposure to Not sure University of SARS-CoV-2 [place] Medical (event) Branch History SDOH [facility] Alcohol Std Medical Cente r Drinks History SDOH [facility] Alcohol Binge Medical Tina ter History SDOH [facility] Alcohol Comment Medical C enter Alcohol intake 2020-10-03 2020-10-03 Current [facility] St Dhruv es 00:00:00 00:00:00 non-drinker of Medical Ce nter alcohol (finding) History SDOH 2019-07-29 2019-07-[address] [facility] Alcohol Frequency 00:00:00 00:00:00 [facility] Center Tobacco use and 2019-07-28 2019-07-28 Never used [facility] luans exposure 00:00:00 00:00:00 [facility] Sex Assigned [birth year] [facility] joao 00:00:00 00:00:00 [facility] Smoking Status Start Date Stop Date Source Never Smoker Common [facility] Medications Ordered Filled Start Stop Current Ordering Indication Dosage Frequency Signature Comments Components Source Medication Medication Date Date Medication? Clinician (SIG) Name Name ProAir HFA ProAir HFA No 2{puffs ProAir HFA 108 (90 108 (90 922 _as_nee 108 (90 Base) Base) 00:00: ded} Base) MCG/ACT MCG/ACT 00 MCG/ACT ketorolac No 30mg 30 mg, Unive rs [...] -05 by mouth. ity of tablet 16:10: [address] metoprolol 0 Yes 25mg Take 25 mg U nivers tartrate 25 05 by mouth. ity of mg tablet 16:10: [address] clopidogreL 0 Yes 75mg Take 75 mg Univers 75 mg 05 by mouth. ity of tablet 16:10: [address] metoprolol 0 Yes 25mg Take 25 mg U nivers tartrate 25 05 by mouth. ity of mg tablet 16:10: [address] clopidogreL Yes 75mg Take 75 mg Univers 75 mg 05 by mouth. ity of tablet 16:10: [address] metoprolol Yes 25mg Take 25 mg U nivers tartrate 25 05 by mouth. ity of mg tablet 16:10: [address] clopidogreL Yes 75mg Take 75 mg Univers 75 mg 05 by mouth. ity of tablet 16:10: [address] metoprolol Yes 25mg Take 25 mg U nivers tartrate 05 by mouth. ity of mg tablet 16:10: [address] clopidogreL 0 Yes 75mg Take 75 mg Univers 75 mg 05 by mouth. ity of tablet 16:10: [address] metoprolol Yes 25mg Take 25 mg U nivers tartrate 25 05 by mouth. ity of mg tablet 16:10: [address] atorvastati 2020-0 2020- No 80mg Take 80 mg Univers n 40 mg 06-18 by mouth. ity of tablet 16:10: 00:00 [place] 25 :00 [facility] metFORMIN 2020-0 2020- No 850mg Take 850 Un zia 850 mg 06-18 mg by ity of tablet 16:10: 00:00 mouth. [place] 25 :00 [facility] traMADoL 50 2020-0 2020- No [id number] 50mg Take 1 Uni vers mg tablet 06-18 tablet by ity of 00:00: 04:59 mouth [place] 00 :00 every 6 Medical (six) Branch [...] 2-21 by mouth Lukes tablet 11:03: daily. [place] [address] Center atorvastati 2019-10 Yes 80mg QD Take [...] mouth Luke s mg tablet 11:03: daily. [address] metoprolol 2019-10 Yes 25mg Q.5D Take [address] tartrate 2-21 by mouth 2 [facility]ukes (LOPRESSOR) 11:03: (two) Medic al 25 MG 52 times Center tablet daily. aspirin 81 2019-10 Yes 81mg QD Take [address] MG EC 2-21 by mouth Lukes tablet 11:03: daily. [address] atorvastati 2019-10 Yes 80mg QD Take [address] n (LIPITOR) 2-21 by mouth Luke s 40 MG 11:03: daily . Medical tablet [address] [place] [address] metFORMIN 2019-10 Yes 850mg Take [address] (GLUCOPHAGE 2-21 mg by Lukes ) 850 MG 11:03: mouth 2 Medica l tablet 52 (two) Center times daily with breakfast and dinner. clopidogreL 2019-10 Yes 75mg QD Take [address] (PLAVIX) 75 2-21 by mouth Luke s mg tablet 11:03: daily. [address] metoprolol 2019-10 Yes 25mg Q.5D Take [address] tartrate 2-21 by mouth 2 Lukes (LOPRESSOR) 11:03: (two) Medic al 25 MG 52 times Center tablet daily. aspirin 81 2019-10 Yes 81mg QD Take [address] MG EC 2-21 by mouth Lukes tablet 11:03: daily. [address] atorvastati 2019-10 Yes 80mg QD Take [address] n (LIPITOR) 2-21 by mouth Luke s 40 MG 11:03: daily . Medical tablet [address] [place] [address] metFORMIN 2019-10 Yes 850mg Take [address] (GLUCOPHAGE 2-21 mg by Lukes ) 850 MG 11:03: mouth 2 Medica l tablet 52 (two) Center times daily with breakfast and dinner. clopidogreL 2019-10 Yes 75mg QD Take [address] (PLAVIX) 75 2-21 by mouth Luke s mg tablet 11:03: daily. [address] metoprolol 2019-10 Yes 25mg Q.5D Take [...] daily. Medic al 26 :00 Center losartan 2019-10- No 25mg QD Take [address] (COZAAR) 25 11-14 by mouth Dhruv es MG tablet 13:32: 00:00 daily. Medic al 26 :00 Center acetaminoph 2019-10 2020- No 1{tbl} Take 1 [...] 0-14 by mouth. ity of tablet 00:00: [address] citalopram 2019-10 Yes 20mg Take 20 mg U nivers 20 mg 0-14 by mouth. ity of tablet 00:00: [address] citalopram 2019-10 Yes 20mg Take 20 mg U nivers 20 mg 0-14 by mouth. ity of tablet 00:00: [place] [facility] citalopram 2019-10 Yes 20mg Take 20 mg U nivers 20 mg 0-14 by mouth. ity of tablet 00:00: [address] citalopram 2019-10 Yes 20mg Take 20 mg U nivers 20 mg 0-14 by mouth. ity of tablet 00:00: [address] citalopram 2019-10 Yes 20mg QD Take [address] (CeleXA) 20 0-14 by mouth Luke s MG tablet 00:00: daily. Medica [place] citalopram 2019-10 Yes 20mg QD Take [address] (CeleXA) 20 0-14 by mouth Luke s MG tablet 00:00: daily. Medica [place] citalopram 2019-10 Yes 20mg QD Take [address] (CeleXA) 20 0-14 by mouth Luke s MG tablet 00:00: daily. Medica 00 [place] citalopram 2019-10 Yes 20mg QD Take [address] (CeleXA) 20 0-14 by mouth Luke s MG tablet 00:00: daily. Medica l 00 [place] metoprolol 2018-10- No 25mg Q.5D Take 1 [...] while due to financial issues atorvastati Yes [id number] 40mg Take 1 Univers n 40 mg [...] due to financial issues atorvastati 2019-0 Yes [id number] 40mg Take 1 Univers n 40 mg [...] while due to financial issues atorvastati Yes [id number] 40mg Take 1 Univers n 40 mg [...] due to financial issues atorvastati 2019-0 Yes [id number] 40mg Take 1 Univers n 40 mg [...] due to financial issues atorvastati 2019-0 Yes [id number] 40mg Take 1 Univers n 40 mg [...] due to financial issues atorvastati 2019-0 Yes [id number] 40mg Take 1 Univers n 40 mg [...] while due to financial issues atorvastati Yes [id number] 40mg Take 1 Univers n 40 mg 6-24 tablet by ity of tablet 00:00: mouth at [place] 00 bedtime. Medical Branch lisinopril Yes 40mg QD Take [address] (PRINIVIL,Z 6-24 by mouth Luke s ESTRIL) 20 00:00: daily . Medi albert MG tablet 00 [place] lisinopril Yes 40mg QD Take [address] (PRINIVIL,Z 6-24 by mouth Luke s ESTRIL) 20 00:00: daily . Medi albert MG tablet 00 [place] lisinopril Yes 40mg QD Take [address] (PRINIVIL,Z 6-24 by mouth Luke s ESTRIL) 20 00:00: daily . Medi albert MG tablet 00 [place] lisinopril Yes 40mg QD Take [address] (PRINIVIL,Z 6-24 by mouth Luke s ESTRIL) 20 00:00: daily . Medi albert MG tablet 00 [place] traMADOL 50 Yes [id number] 50mg Take 1 Univers mg tablet 6-17 tablet by ity o f 00:00: mouth [place] 00 every 6 Medical (six) Branch hours as needed for Pain (scale 7-10). traMADOL 50 Yes [id number] 50mg Take 1 Univers mg tablet 6-17 tablet by ity o f 00:00: mouth [place] 00 every 6 Medical (six) Branch hours as needed for Pain (scale 7-10). traMADOL 50 0 Yes [id number] 50mg Take 1 Univers mg tablet 6-17 tablet by ity o f 00:00: mouth [place] 00 every 6 Medical (six) Branch hours as needed for Pain (scale 7-10). traMADOL 50 2018- Yes [id number] 50mg Take 1 Univers mg tablet 6-17 tablet by ity o f 00:00: mouth [place] 00 every 6 Medical (six) Branch hours as needed for Pain (scale 7-10). traMADOL 50 2019-0 Yes [id number] 50mg Take 1 Univers mg tablet 6-17 tablet by ity o f 00:00: mouth [place] 00 every 6 Medical (six) Branch hours as needed for Pain (scale 7-10). traMADOL 50 2019-0 Yes [id number] 50mg Take 1 Univers mg tablet 6-17 tablet by ity o f 00:00: mouth [place] 00 every 6 Medical (six) Branch hours as needed for Pain (scale 7-10). traMADOL 50 2019-0 Yes [id number] 50mg Take 1 Univers mg tablet 6-17 [...] due to financial issues amoxicillin 2019-0 Yes [id number] 1{tbl} Take 1 Univers -clavulanat 6-13 tablet by ity of e 00:00: mouth 2 [place] (AUGMENTIN) 00 (two) Medical 875-125 mg times Branch per tablet daily. amoxicillin 2018- Yes [id number] 1{tbl} Take 1 Univers -clavulanat 6-13 tablet by ity of e 00:00: mouth 2 [place] (AUGMENTIN) 00 (two) Medical 875-125 mg times Branch per tablet daily. amoxicillin 2018-1- No [id number] 1{tbl} Take 1 Univers -clavulanat 6-13 09-05 [...] 00:00: mouth [place] 00 daily. Medical Branch metFORMIN metFORMIN No 1{table BID metFORMIN HCl 850 MG HCl 850 MG t_with_ HCl 850 MG a_meal} Aspir-81 81 Aspir-81 81 No 1{table QD Aspir-81 MG MG t} 81 MG Cetirizine Cetirizine No 1{table QD Cetirizine HCl 10 MG HCl 10 MG t} HCl 10 MG Metoprolol Metoprolol No Metoprolol Succinate Succinate Succinate ER 25 MG ER 25 MG ER 25 MG Clopidogrel Clopidogrel No 1{table QD Clopidogre Bisulfate Bisulfate t} l 75 MG 75 MG Bisulfate 75 MG Metoprolol Metoprolol No Metoprolol Tartrate 50 Tartrate 50 Tartrate MG MG 50 MG Metoprolol Metoprolol No 1{table BID Metoprolol Tartrate 50 Tartrate 50 t_with_ Tartrate MG MG food} 50 MG Aspir-81 81 Aspir- 81 No 1{table QD Aspir-81 MG MG t} 81 MG Metoprolol Metoprolol No 1{table BID Metoprolol Tartrate 50 Tartrate 50 t_with_ Tartrate MG MG food} 50 MG Metoprolol Metoprolol No Metoprolol Succinate Succinate Succinate ER 25 MG ER 25 MG ER 25 MG Clopidogrel Clopidogrel No 1{table QD Clopidogre Bisulfate Bisulfate t} l 75 MG 75 MG Bisulfate 75 MG Lisinopril Lisinopril No Lisinopril 40 MG 40 MG 40 MG Poly-Iron Poly-Iron No 1{capsu QD Poly-Iron 150 150 MG 150 150 MG le} 150 150 MG metFORMIN metFORMIN No 1{table BID metFORMIN HCl 850 MG HCl 850 MG t_with_ HCl 850 MG a_meal} Cetirizine Cetirizine No 1{table QD Cetirizine HCl 10 MG HCl 10 MG t} HCl 10 MG Metoprolol Metoprolol No Metoprolol Tartrate 50 Tartrate 50 Tartrate MG MG 50 MG Atorvastati Atorvastati No 1{table QD Atorvastat n Calcium n Calcium t} in Calcium 80 MG 80 MG 80 MG Lisinopril Lisinopril No 1{table QD Lisinopril 40 MG 40 MG t} 40 MG Lisinopril Lisinopril No Lisinopril 40 MG 40 MG 40 MG Atorvastati Atorvastati No 1{table QD Atorvastat n Calcium n Calcium t} in Calcium 80 MG 80 MG 80 MG Poly-Iron Poly-Iron No 1{capsu QD Poly-Iron 150 150 MG 150 150 MG le} 150 150 MG Vital Signs Vital Name Observation Time Observation Value Comments Source HEIGHT 2020-09-19 09:05:00 154.9 cm WEIGHT 2020-09-19 09:05:00 75.615 kg temperature 2022-07-05 16:40:00 98.0 [degF] [facility] bmi 2022-07-05 16:40:00 31.93 kg/m2 [facility] oximetry 2022-07-05 16:40:00 96 % [facility] respiratory rate 2022-07-05 16:40:00 17 /min Comm on [facility] blood pressure 2022-07-05 16:40:00 137 mm[Hg] [facility] systolic [facility] blood pressure 2022-07-05 16:40:00 70 mm[Hg] [facility] diastolic [facility] height 2022-07-05 16:40:00 61 [in_i] [facility] weight 2022-07-05 16:40:00 169.0 [lb_av] [facility] Systolic blood 2021-06-20 20:23:00 148 mm[Hg] [facility] Diastolic blood 2021-06-20 20:23:00 66 mm[Hg] Unive rsity of pressure [facility] Heart rate 2021-06-20 20:23:00 76 /min [facility] Body height 2021-06-20 20:23:00 154.9 cm [facility] Body weight 2021-06-20 20:23:00 74.844 kg [facility] BMI 2021-06-20 20:23:00 31.18 kg/m2 [facility] Systolic blood 2021-06-18 16:05:00 184 mm[Hg] [facility]iver [facility] Diastolic blood 2021-06-18 16:05:00 60 mm[Hg] Unive rsity of pressure [facility] Heart rate 2021-06-18 15:10:00 77 /min Universi ty of [facility] Body temperature 2021-06-18 15:10:00 37.44 [place] Univ ersity of [facility] Respiratory rate 2021-06-18 15:10:00 20 /min Univ ersity of [facility] Body height 2021-06-18 15:10:00 154.9 cm Universi ty of [facility] Body weight 2021-06-18 15:10:00 74.844 kg Universi ty [facility] BMI 2021-06-18 15:10:00 31.18 kg/m2 Universi ty [facility] Oxygen saturation in 2021-06-18 15:10:00 98 /min [facility] blood by [facility] Pulse oximetry Branch WEIGHT 2020-10-03 11:00:00 75.297 kg HEIGHT 2020-10-03 11:00:00 154.9 cm WEIGHT 2020-10-03 11:00:00 75.297 kg HEIGHT 2020-10-03 11:00:00 154.9 cm HEIGHT 2020-09-19 09:05:00 154.9 cm WEIGHT 2020-09-19 09:05:00 75.615 kg HEIGHT 2020-09-13 13:29:00 154.9 cm WEIGHT 2020-09-13 13:29:00 75.297 kg HEIGHT 2020-09-13 13:29:00 154.9 cm WEIGHT 2020-09-13 13:29:00 75.297 kg Systolic blood 2020-10-03 11:00:00 171 mm[Hg] [facility] Diastolic blood 2020-10-03 11:00:00 71 mm[Hg] [facility] Heart rate 2020-10-03 11:00:00 78 /min [facility] Body temperature 2020-10-03 11:00:[address] [facility] Respiratory rate 2020-10-03 11:00:00 18 /min [facility] Body height 2020-10-03 11:00:00 154.9 cm [facility] Body weight 2020-10-03 11:00:00 75.297 kg [facility] BMI 2020-10-03 11:00:00 31.37 kg/m2 [facility] Oxygen saturation in 2020-10-03 11:00:00 98 /min room air [facility] Arterial blood by Medical Keli thompson Pulse oximetry Procedures Procedure Date / Time Performing Clinician Source Performed REFERRAL- 2021-04-06 05:01:00 Doctor Unassigned, No [facility] REQUEST/RESPONSE Name Medical Branch POCT-GLUCOSE METER 2020-09-20 11:36:00 Monique [facility] POCT-GLUCOSE METER 2020-09-20 07:33:00 [facility] CBC W/PLT COUNT & AUTO 2020-09-20 00:18:00 [facility] BASIC METABOLIC PANEL 2020-09-20 00:18:00 [facility] (7) [place] MAGNESIUM 2020-09-20 00:18:00 [place], [facility] PHOSPHORUS 2020-09-20 00:18[facility]ON[facility]ED 2020-09-20 00:18:00 [facility] TISSUE EXAM 2020-09-19 14:54:00 [facility] POCT-ACT 2020-09-19 14:15:00 [facility] POCT-ACT 2020-09-19 14:03:00 [facility] ENDARTERECTOMY,CAROTID 2020-09-19 12:52:00 [facility] PROTHR[facility]BIN TIME/INR 2020-09-19 10:22:00 [facility] APTT 2020-09-19 10:22:00 [facility] POCT-GLUCOSE METER 2020-09-19 09:06:00 [facility] CBC W/PLT COUNT & AUTO 2020-09-13 14:52:00 [facility] DIFFERENTIAL [facility] BASIC METABOLIC PANEL 2020-09-13 14:52:00 Juan Gallardo [facility] (7) [facility] PROTHROMBIN TIME/INR 2020-09-13 14:52:[address] [facility] ABORH, MANUAL 2020-09-13 14:52:00 Juan Gallardo [facility] ECG 12-LEAD 2020-09-13 14:37:40 Unknown, Hl7 Doctor [facility] Plan of Care Planned Activity Planned Date Details Comments Source Future Scheduled 2022-06-14 INFLUENZA VACCINE (#1) [facility] 00:[facility]:00 [code = INFLUENZA Medical Ce nter VACCINE (#1)] Future Scheduled 2022-06-14 INFLUENZA VACCINE (#1) [facility] Test 00:00:00 [code = INFLUENZA Medical Ce nter VACCINE (#1)] Future Scheduled 2021-10-[address] [facility] Test 00:00:00 (12+) [code = Medical Center DEPRESSION SCREENING (12+)] Future Scheduled 2021-10-14 FALLS RISK SCREENING [facility] Test 00:00:00 [code = FALLS RISK Medical C enter SCREENING] Future Scheduled 2021-10-[address] [...] Medical Center DEPRESSION SCREENING (12+)] Future Scheduled 2020-07-27 PNEUMOCOCCAL 65+ YRS ([address] [facility] Test 00:00:00 - PCV) [code = Medical Cente r PNEUMOCOCCAL 65+ YRS (2 - PCV)] Future Scheduled 2020-07-27 PNEUMOCOCCAL 65+ YRS (2 [...] Medical Tina ter VACCINE (#1)] Future Scheduled 1951-01-20 COVID-19 VACCINE (#1) [facility] 00:00:00 [code = COVID-[address] VACCINE (#1)] Future Scheduled 1950 Screening for malignant [facility] Test 00:00:00 neoplasm of breast Medical C enter (procedure) [code = 569595460] Future Scheduled 1951 Screening for malignant [facility] Test 00:00:00 neoplasm of colon Medical Ce nter (procedure) [code = 350090562] Future Scheduled 1951 Screening for malignant [facility] Test 00:00:00 neoplasm of breast Medical C enter (procedure) [code = 599080959] Future Scheduled 1950 CT Colonography (combo) [facility] Test 00:00:00 [code = CT Colonography [facility]i [facility] Center (combo)] Future Scheduled 1951 Screening for malignant [facility] Test 00:00:00 neoplasm of colon Medical Ce nter (procedure) [code = 697746286] Future Scheduled 1951 Screening for malignant [facility] Test 00:00:00 neoplasm of colon Medical Ce nter (procedure) [code = 416126152] Future Scheduled 1950 DXA SCAN [code = DXA [facility] Test 00:00:00 SCAN] [facility] Future Scheduled 1951 Screening for malignant [facility] Test 00:00:00 neoplasm of colon Medical Ce nter (procedure) [code = 806661805] Future Scheduled 1951 Screening for malignant [facility] Test 00:00:00 neoplasm of colon Medical Ce nter (procedure) [code = 185521686] Future Scheduled 1950 Sigmoidoscopy [code = [facility] Test 00:00:00 Sigmoidoscopy] [facility] Future Scheduled 1951 Screening for malignant [facility] Test 00:00:00 neoplasm of breast Medical C enter (procedure) [code = 507993500] Future Scheduled 1951 Screening for malignant [facility] Test 00:00:00 neoplasm of colon Medical Ce nter (procedure) [code = 886407299] Future Scheduled 1951 Screening for malignant [facility] Test 00:00:00 neoplasm of breast Medical C enter (procedure) [code = 543842813] Future Scheduled 1950 CT Colonography (combo) [facility] Test 00:00:00 [code = CT Colonography [facility] (combo)] Future Scheduled 1951 Screening for malignant [facility] Test 00:00:00 neoplasm of colon Medical Ce nter (procedure) [code = 053611647] Future Scheduled 1951 Screening for malignant [facility] Test 00:00:00 neoplasm of colon Medical Ce nter (procedure) [code = 247361715] Future Scheduled 1950 DXA SCAN [code = DXA [facility] Test 00:00:00 SCAN] [facility] Future Scheduled 1951 Screening for malignant [facility] Test 00:00:00 neoplasm of colon Medical Ce nter (procedure) [code = 298026468] Future Scheduled 1951 Screening for malignant [facility] Test 00:00:00 neoplasm of colon Medical Ce nter (procedure) [code = [id number]] Future Scheduled 1951 Sigmoidoscopy [code = [facility] 00:[facility]:00 Sigm[facility]oscopy] [facility] Encounters Start End Encounter Admission Attending Care Care Encounter Source Date/Time Date/Time Type Type Clinicians Facility Department ID 2022-04-23 Outpatient Lao, STLMLC STLMLC [id number] Common 11:04:01 Shant [id number] [facility] 2022-01-03 Outpatient Lao, STLMLC STLMLC [id number] Common 10:05:03 Shant [facility] 2022-01-01 Outpatient Lao, STLMLC STLC [id number] Common 13:11:04 Shant [id number] [facility] 2021-11-08 Outpatient Lao, STLMLC STLC [id number] Common 14:15:27 Shant [id number] [facility] 2021-11-08 Outpatient Lao, STLMLC STLMLC [id number] Common 14:10:48 Shant [id number] [facility] 2021-11-08 Outpatient Lao, STLMLC STLC [id number] Common 14:04:07 Shant [id number] [facility] 2021-11-08 Outpatient STLMLC STLC [id number] Common 13:49:07 93655 [facility] 2021-08-14 Emergency [facility] [id number] Univers 20:32:56 it of [facility] 2021 Inpatient MONIQUE, [facility] Surgery [id number] SLE 18:22:15 JUAN 2022-07-05 2022-07-05 (HOSP F/U) STLC STLC [id number] Common 00:00:00 00:00:00 Hospital [facility] Follow Up - [facility] 2022-07-02 2022-07-02 (TEL) [facility] STLMLC [id number] mmon 00:00:00 00:00:00 [facility] 2022-04-23 2022-04-23 ambulatory STLMLC STLMLC [id number] Common 00:00:00 00:00:00 [facility] 2022-04-20 2022-04-20 ambulatory STLMLC STLMLC [id number] Common 00:00:00 00:00:00 [facility] 2022-01-04 2022-01-04 ambulatory STLMLC STLMLC [id number] Common 00:00:00 00:00:00 [facility] 2022-01-04 2022-01-04 ambulatory STLMLC STLMLC [id number] Common 00:00:00 00:00:00 [facility] 2021-12-21 2021-12-21 ambulatory STLMLC STLMLC [id number] Common 00:00:00 00:00:00 [facility] 2021-11-20 2021-11-20 ambulatory STLMLC STLMLC [id number] Common 00:00:00 00:00:00 [facility] 2021-10-30 2021-10-30 ambulatory STLMLC STLMLC [id number] Common 00:00:00 00:00:00 [facility] 2021-09-28 2021-09-28 ambulatory STLMLC STLMLC [id number] Common 00:00:00 00:00:00 [facility] 2021-08-31 2021-08-31 ambulatory STLMLC STLMLC [id number] Common 00:00:00 00:00:00 [facility] 2021-08-25 2021-08-25 ambulatory STLMLC STLMLC [id number] Common 00:00:00 00:00:00 [facility] 2021-08-22 2021-08-22 ambulatory STLMLC STLMLC [id number] Common 00:00:00 00:00:00 [facility] 2021-08-07 2021-08-07 Outpatient STLMLC STLMLC [id number] Common 00:00:00 00:00:00 [facility] 2021-07-19 2021-07-19 Outpatient Thomas GARCIA [facility] [id number] Univers 14:30:00 14:30:00 CINTHIA [id number] [facility] 2021-06-26 2021-06-26 [id number] Univers 13:45:00 13:45:00 UTE [id number] [facility] 2021-06-26 2021-06-26 [facility] [id number] Univers 13:45:00 13:45:00 UTE [facility] 2021-06-20 2021-06-20 [facility] [id number] Univers 15:14:01 15:29:01 Visit [facility] [place] [id number] it y of [place] 4.2.7.2.686 Lorenzo as Yuri?Blea [phone] Oh jose felix [address] [place] [address] 2021-06-20 2021-06-20 [facility] [id number] Univers 15:00:00 15:00:00 CINTHIA [id number] [facility] 2021-06-20 2021-06-20 [facility] [id number] Univers 15:00:00 15:00:00 CINTHIA [facility] 2021-06-20 2021-06-20 Telephone [facility] [id number] Univers 00:00:00 00:00:00 Cinthia S [place] [id number] it y of [place] 4.2.7.2.686 Lorenzo as Yuri?Blea [phone] Oh jose felix [address] [place] [address] 2021-06-19 2021-06-19 Telephone [facility] [id number] Univers 00:00:00 00:00:00 [facility] 350.1.13.10 it y of [place] 4.2.7.2.686 Lorenzo as Yuri?Blea [phone] [address] Medical Office Building 2021-06-18 2021-06-18 Emergency Drever, [facility] [id number] Univers 10:12:00 11:17:00 Carol Ann Soriano 350.1.13.10 ity of [place] 4[place]2.7.2.[place] [phone] [facility] [address] 2021-04-26 2021-04-26 Letter ONEAL Barber [id number] Univers 00:00:00 00:00:00 (Out) Charlette JOHNSY 350.1.13.10 i ty of [facility] 4.2.7.2.686 Lorenzo as [phone] [facility] [address] 2021-04-06 2021-04-06 Orders Doctor NO [id number] Univers 00:00:00 00:00:00 Only Unassigned, HARVEY 350.1.13.10 ity of [place] [facility] 4.2.7.2.686 Lorenzo as [phone] [facility] [address] 2020-10-03 2020-10-04 Office [facility] [id number] 10:58:57 06:55:34 Visit [facility] 2020-10-03 2020-10-03 Outpatient MONIQUE [facility] [id number] SLE 00:00:00 00:00:00 [facility] 2020-09-19 2020-09-20 Hospital [facility] [id number] 08:52:00 16:45:00 Encounter Juan [facility] 2020-09-19 2020-09-19 [facility] [id number] 13:06:00 15:11:00 Event Maribell Yepez [facility] 2020-09-19 2020-09-19 Surgery [facility] [id number] 11:00:00 14:00:00 [facility] 2020-09-16 2020-09-16 Abstract [facility] [id number] 00:00:00 00:00:00 [facility] 2020-09-13 2020-09-[address] [facility] [id number] 14:23:27 14:53:27 Visit [facility] 2020-09-13 2020-09-13 Outpatient HUSSEIN CLARKE [facility] [id number] [facility] 14:23:27 14:23:27 JUAN 2020-09-13 2020-09-[address] [facility] [id number] 00:00:00 00:00:00 [facility] 2019-12-02 2019-12-02 Outpatient Ige-Odunuga VFP VFP [id number] [facility] 07:29:00 07:29:00 _J_ [id number] Family Practic e Results Test Description Test Time Test Comments Results Result Comments Source Tissue Exam 2020-09-23 18:50:00 Test Item Value Reference Range Interpretation Comme nts Case Report (test code = 104) Surgical Pathology Report Case: [id number] Authorizing Provider: Juan Gallardo, Collected: 09/19/2020 02:54 PM Ordering Location: [facility] Received: 09/19/2020 03:32 PM PERIOPERATIVE SERVICES Pathologist: Jarad Menchaca MD Specimen: Plaque, LEFT CAROTID ARTERY PLAQUE DIAGNOSIS (test code = 3220) x9fyvLNsJFDdk8xcWJCcvEKsQcCwQpBwYjLwIl pc dWMxIHtccnRmMVxlcGljOTIwMFxhbnNpXHNwbHRw P1YwohlsTRyuJG7wJK4dcFtklSTtgVMzXNSeQeVn i8cku533dKZjo8syJHKRrxgfdAa8lXfwE87za5L8 KneaO22rcAFmBBxwxAJztsidpqHvZSPOQXXXEIqw VJSLFVQEWOPWSHhMBOVHMvFSBsCBQqIFHN3NVNfv eAWwLBPRUGJJXqiDNJTNJSHVS3FFCVXBW8XJMhJZ QQJIRHQyUGMddb90OZV0NuPuq8X6ORJ4GRJoWCAm f6zrERKhbMNsWmUwEwOuTlEmJitjqJFuWLZtFoZr c9gbl609dHYut7qmLITcViB5rSNyZHFvoCBnC450 CBHxQZcuz4gvz2QqMYYeqXXti5E2APQGqajhmTl2 ySjoP83fw3U3RkghQ3abIVKwGEIuP5CiMT7zHYXv Dxi6UQN6GQS4EQBmMJLdK2DvOV4dNWEjwBXaFJc1 v0nffFuaLICxEAM2m1oiIXqguqPjMW1yuh1deOg9 g9mxduKxZOPzJNCccXRCPFSeW8ObkLvyWe3cgXf0 xSpnSsosWRB1Usm4WG7pit23dsj9uRljIHKajtof NrN9HXtzJOSqrrjuURo0MJnvXGSqlSY2UGFfdUGv Z6FrVBVqGT2tngb4FLC6EJsxDDGoTbD1KQOuoYPr VBLtgNlxYKees467YGP0MtLlIZ4eD7Ssr3W0hH2h hZUxYRIofRCkWoVjIRAome0roTYsMVipx5EgYLS4 cfO6aNStvQZwRNYnUeI1TGuwIW9qmr07NDNlMEN5 mr3zdQUcsFmkloEgnRZnBQqnG6JmISXud595OYMg K4XhZKOat0Y5kfAfTgNzZCQzrYS7liG0KXFbRF5g iksti4exYEgoVHqaWBPsgtU2ztW7QUXcrQYyH3Kk yW8kVPPiUE4ksqihh5qrESN6CHmzRCVtOOR4JzDh OZGrh7Oyrdq0EoRmj6BocRQgIGmlX85do049RTMw gkGiW8pruYMvetwzcCNtokdcMYzordD4YYTnMBcs ejhpQPJdFMatN4puFjYxXWIoxBgcMRlke2PoZGGm STKpTkKtrSCdHMAkFoc8NWKrfCXsWCUlKpKmS7xu zjwuVdPRPGEoq0tbT7pikJBReLBvH0EwKOeuueZw MGmaPXyoAFMbJCG9HA20GqnlHMBodl38 CPT Code(s) (test code = 3357) j5pdsTZtJQQchWP5PkLxWAOxb8rwh6JucUJc cGFy XIvryGGjciJfrd97gSO1fG94UP0rQQBxMfD3MUZb xyM4Tkt8ZTPiNGPmwHDgP019r1zeo4gpvlYycVK0 kGnoEPDsSYOaXEbwNBUnKvLbONsnWJO3SJl3JmIk XHBhcn0= CLINICAL HISTORY (test code = 3356) r5plaUSfSOXcyFL7NpOyDAIsb2pwj1P sdHBncGFy PJfykEVacvIuvq39yHT4eU48OA1hBOViNoB1IDNj ouJ1Tgd5JVMtXQMueSStG881s3oai7tuvyLybBY4 tLapTZUrEGCiCUksXBQuXaCwBBGqd4NiFKqcI90y f8xlXiJcqVHmiIPsOFXhbUgmQNZ0GH8jg1thVXEs cn0= SPECIMEN SOURCE (test code = 3377) f5pbeSTuFJLwkOD7LoNfEQObm0mhy6Zx dHBncGFy CUpecRDnvfThhq76cEH8uR67VC3cPLYxGxN0IDAk azN2Oqc6NRIaGDLvqGQvF738g4ryz7azypRcnMY0 fVxwYXJkXHBsYWluXGZzMjAgUGxhcXVlIFxwYXJ9 GROSS DESCRIPTION (test code = 3366) l9xpfBTuWFCycIX7DcYuPJOau4whe8 BsdHBncGFy ENiifNPgukVliw08gYR6hV97GV4eOZWbHyO6CSMw yzG1Vef3HNHmWXKfjMMaN226m2oxe9btlvCxmCQ5 nTyyHEYzKDJjFSquZRFwCyAjCqOcBWj3GGBoDvGk g3uopTMmKFgeCRC9dJMtJLXqEUEyGHKbLJ70G1Et cvGmPYhqEMBjLNUsvY8vNS31qTLypwMoxdIxRsVh TMV0IOntjCIykTVdEGLtcOqzWBZrwUCejMFjuWKf pRQjJYumKOYlWp3oQMqaNi4yMASlUHcaplQryYom gjEqatOvwPBrzGOcYgQ8VJfhh1ammKlkvZFhXGAk NQOpFXucdXxtuIMrT8HpF1khoBJdrSvzbf9bRNta UBWfKJWzeNCgOLxuDJWwnkfhgPl5TCTbX3Zlm85c CNO2pvVyAKFoFWrrGQS6KVrok9hibK1sv1juxqRe cLSoR0LaP1kbwLHrEQSfavYklr8uQFsyNYIcESSt sPQtZIpyIGN1Hq0bwSEyJPDyqlYrsYMrBM23sSFn ePcdMi3kaG52xA2kQXDzV1AgB9pgwAIruSjdmnKz laREXN7cHGaFD2GuOOnaLTS2 MICROSCOPIC DESCRIPTION (test code = b0kryNHcHAJtfYL9YmCaXJYrk1scg3 BsdHBncGFy 3371) UIvssKLwhzZbww33hQD0lW57UX5pOTJjXnN5URKo mnE4Qxp3NUJmCUWyuLXxL407d8oxw3tykdLuyBU9 pOhfLFKtBXDtQNczTAKgKuYgXFYgTi1hmKNlTKFh cn0= [facility] [id number] 18:50:00 Test Item Value Reference Range Interpretation Comments Case Report (test code Surgical Pathology = 104) Report Case: [id number] Authorizing Provider: Juan Gallardo, Collected: 09/19/2020 02:54 PM Ordering Location: [facility] Received: 09/19/2020 03:32 PM PERIOPERATIVE SERVICES Pathologist: aJrad Menchaca MD Specimen: Plaque, LEFT CAROTID ARTERY PLAQUE DIAGNOSIS (test code = p2uyzKUkYYByg0htCUQfqDO 3220) uZzEwMzNcZnRuYmpcdWMxIH tccnRmMVxlcGljOTIwMFxhb eLrIYSgcLZiZ1KmqbpqREmw UY5lEB7yfOdsmLYpwKKkVJH rXbZlt9zvh586lVJpk9coHH DAgysqvNs8wZnrY60ml5D5T ckkM88boQBrVHavdOOlaydn czIwIEFSVEVSWSwgTEVGVCB DQVJPVElELCBFTkRBUlRFUk YSUT3GDLiotNBcBOSSHIGKM xdFUCCKNWIGY6XKSZYUV3GH UoYIHJGGVMRyYWExwm82UMG 1MpEbi5K2COK0KYCaGEMja4 lcZGVmbGFuZzEwMzNcZnRuY fzeeRDlYVEzOpVkz6dcw735 rFLxb5qiGCEoAxI5wQSjORK gdSZkK344BZSmRHecf2uwe9 OgNNAjcLQwk6N7EOIKitaxk Xq1nVfqP57qj4C2SzsiY3up OBHgZJAqL0InZW7mZDCgCdq 0PGD8TQW9KQYpUOZxZ0EqCP 5mSOZibADtBVa2f5qxqJilR RPvGNK9h2eaCRnyitOeHD3f gn5axRe3s8czgaZnLKDeNHE zdAVNKLYtI5JpwFuqRq2euV f4uBitPsytJDJ1Juy7VH8uj a42oin2gLpaJDPsfwyzMqX0 WXwlRJFdvnwaSEc4RUxfTYS hqQA0AHCsfYBeM9PiETXhTO 2lvue3THT5XYrlKVKfRwB9E WDzkJPuHOOioSvvAJdmi313 RIA1CvNqHV5gN3Kbd3A6dI5 maXRcZGVmdGFiNzIwXGZvcm 6eaUBiDMdyp5PgSRP6tuR0t WHlxBMoLJZpZfZ2FOlgOR0r at83EDGwZEP3ry9dvAXrjXj gtbBziRWjHCygB8OaJGChu7 05PRCbL0YjDWMxx7Q6iiFeC iPtPKZjgIO3fbY9OZGhKA0u dbgam9yvJWhoDLnxHIRehiE 3nmH6GJIdxOGvR1QymY1iJT SvMU2rbsxhm2kyOJI9HIoqT RBkSPB1KvMgCRYsi7Ejaex1 OeAjo1NgpIBqFBlvO01hg50 1NXKtydAcZ8bqjRYsarkriX HzfcqlIPbialO1RFYiYLvdk hwiRUBqGJfeX5ffUkMvZSSw nIolGPock2MpFWHaTXMbDhD oxREwDVVmJcy2JQKlwMJkRM WrYgCdW4cacwroKjMEBPUrh 6mdU0xsaCKHtKWlD9KlMLfv wjGzWLvaVBhgCTWpPRR9DG1 1LcrvXFNpri11 CPT Code(s) (test code j5ynnKTvRRQtvGQ3KdChAJU = 3357) oh3gzc3GsxCBbmNEcPBkpeU LnzhQwht36dGW3uL48LL2iD YHdOyZ7TWSswrD6Xyt7FBVt MYAjkHPpM619q7eeu3psnbB ytDY9hCshUEDbOUUpOFjnTW AyHlMvMQxhEJJ3UIg7UdPyY HBhcn0= CLINICAL HISTORY (test k4mheTFuSKHtkJI0UbEeRRD code = 3356) rl3vwb5JlbHNjtGVfPWgnbO KrssTktm92nMA1qL57NY8nW ASwVaB8TLOsscK6Kzv0GGVm XGKtzFTcM364h9bxu4xfdoN dyPJ1sRroRIYfBZWnZQlvQF FyCySoDMIcb0BnWTniU00db 2lzOiAgbGVmdCBjYXJvdGlk TJT3TW7pj3ulBEUhmh0= SPECIMEN SOURCE (test o8lefQPwNWOktFT5SwZrLOJ code = 3377) zv5wrh6AsxPRtmIGcCJxrnA LdzgBzbw14aAX5vL41SV4qN LXgDaT5MQXrlrU9Avm6SXOd FMQckIHhH028p2erd8fpysP whFW4vMatWYVxMFInGPjdJQ ZzMjAgUGxhcXVlIFxwYXJ9 GROSS DESCRIPTION c6yagBRtEOAzrTX6LtFbSKU (test code = 3366) bb6izk3IlqFRntAVfYLwmuL AzovSjwm10sRX3rR56SS3fV MYpDlL5TCDbltQ7Vqp0TXPa KHKepTPtW899u5mjg9gvcnF kjSX1pTocHYBsLMDjFBhmWO LdZeFrNiOsVUt0VUHqWlEte 0drfLPyVAuaGEX7kYRfUJHc QBUpQOKeUB08B2LvmgNzPFk iJGSiGZNewY1xWX55fPHacd TtlbNjGcWzVES8FWlzlICvs CBjYXJvdGlkIGFydGVyeSBw nXUmmFXjFYnzLQKvQo0dTCz tYh0zTCRqAUteybXnyEmgfq PnsdRokEOhkRAaGhX5WAnxy 3cgcGxhcXVlIHRoYXQgZGlz zKxyxLTsL6OlW7katUFnuBb vfw1cTEtbBPVyVMXgeLOmZM afPKMohevzePh9QQJpV1Jkl 06dNCH7ykTlANKgSUjaEJV0 UJqoo9nxvC3vh3fjkuIqfPC eH6MdY8gjfJAlNUJmxpNhhd 4gVGhlIHNwZWNpbWVuIGlzI KE9Ee5ucVIkILUofhRkeMPp FR01jWXvbFlnSs9jtW15xJ9 tEQLtP5HrP3prsWAdaUtxpb VakmYAIH3cKZzCN2MzXNqxC XJ9 MICROSCOPIC x7gsmJXvUJNakIR9NlSgKUK DESCRIPTION (test code fa0ued6UeeRIdlHCvFOricR = 3371) LspqYxvl66sYK0lU47KR7gW MFtQvA6AXLmuoE2Jrf4MYXr HJWuyQCfX135p5hxw3lounS ewTK8lYsuENItICVaKKszUM EwXxFaDJFuCl4mdOLfGIHjp n0= [id number] 18:50:00Surgical Pathology Report Case: [id number] Authorizing Provider: Juan Gallardo, Collected: 09/19/2020 02:54 PM Ordering Location: [facility] Received: 09/19/2020 03:32 PM PERIOPERATIVE SERVICES Pathologist: Jarad Menchaca MD Specimen: Plaque, LEFT CAROTID ARTERY PLAQUE ARTERY, LEFT CAROTID, ENDARTERECTOMY:CALCIFIC ATHEROSCLEROTIC PLAQUE Signing Pathologist Direct Phone Line: [phone]; [phone] diagnosis: left carotid stenosisPlaque Received fresh labeled with the patient's name, accession number and "plaque, left carotid artery plaque" is a 2.0 x 2.0 cm irregular fragment of yellow plaque that displays calcification. The specimen is serially sectioned to reveal a yellow homogeneous calcified center. The specimen is submitted in its entirety following decalcification in A1. JG/pl PerformedPOC-Glucose [id number] 11:48:00 Test Item Value Reference Range Interpretation Comments POC-Glucose Meter (test 208 mg/dL 70-110 H : TE STED AT [facility] code = 1538) [address] [place] [address], [facility] [address]: Employment Law Specialist/Techni ciara ID = [id number] for BERT CORONADO Lab Interpretation (test Abnormal code = 29496-4) [facility] [id number] 11:48:00 Test Item Value Reference Range Interpretation Comments POC-Glucose Meter (test 208 mg/dL 70-110 H : TE STED AT [facility] code = 1538) [address] [place] [address], [facility] 30: Employment Law Specialist/Techni ciara ID = [id number] for IVONNE, BERT Lab Interpretation (test Abnormal code = 57973-1) [facility] [id number] 11:48:00 Test Item Value Reference Range Interpretation Comments POC-GLUCOSE METER 208 mg/dL 70-110 H : TESTED A T [facility] 6720 (BEAKER) (test code = [facility], 1538) [address]: Employment Law Specialist/Techni ciara ID = [id number] for JULIETA CASTILLOMARVIN, BERT POCT-GLUCOSE [id number] 08:17:00 Test Item Value Reference Range Interpretation Comments POC-GLUCOSE METER 183 mg/dL 70-110 H : [facility] ([facility]ER[facility] (test code = [facility], 1538) [address]: Employment Law Specialist/Techni ciara ID = [id number] for JULIETA CASTILLOAN, BERT POC ACTIVATED CLOTTING [id number] 06:23:00 Test Item Value Reference Range Interpretation Comments Activated Clotting Time 241 sec : 74 -137 seconds, (test code = 441) Baseline: TESTED AT [address], [address]70 30: Employment Law Specialist/Techni ciara ID = [id number] for CAST RO, NAT [facility] ACTIVATED CLOTTING [id number] 06:23:00 Test Item Value Reference Range Interpretation Comments Activated Clotting Time 241 sec : 74 -137 seconds, (test code = 441) Baseline: TESTED AT [facility] [address] [facility], 770 30: Employment Law Specialist/Techni ciara ID = [id number] for CAST RO, NAT [facility][id number] 06:23:00 Test Item Value Reference Range Interpretation Comments ACTIVATED CLOTTING TIME 241 sec : 74 -137 seconds, (BEAKER) (test code = Baseli ne: TESTED AT 441) [facility] [address] [place] [address], 770 30: Employment Law Specialist/Techni ciara ID = [id number] for CA STRO, NAT [id number] 06:23:00 Test Item Value Reference Range Interpretation Comments ACTIVATED CLOTTING TIME 224 sec : 74 -137 seconds, (BEAKER) (test code = Baseli ne: TESTED AT 441) [address], [address] 30: Employment Law Specialist/Techni ciara ID = [id number] for CA STRO, NAT CBC with platelet count + automated [id number] 01:08:00 Test Item Value Reference Range Interpretation Comments WBC (test code = 6690-2) 12.8 See_Comment H [A utomated message] The system [employer] generated this result transmitted ref erence range: 3.5 - 10 .5 K/L. The refe rence range was not u sed to interpret this result as normal/abnor mal. RBC (test code = 789-8) 3.64 See_Comment L [Au tomated message] The system [employer] generated this result transmitted ref erence range: 3.93 - 5 .22 M/L. The refe rence range was not u sed to interpret this result as normal/abnor mal. MCHC (test code = 786-4) 30.3 See_Comment L [A utomated message] The system [employer] generated this result transmitted ref erence range: [...] See_Comment [Aut omated message] 777-3) The system [employer] generated this result transmitted ref erence range: 150 - 45 0 K/CU MM. The referen ce range was not u sed to interpret this result as normal/abnor mal. MPV (test code = 10.5 fL 9.4-12.3 29917-3) nRBC (test code = 413) 0 See_Comment [Aut omated message] The system [employer] generated this result transmitted ref erence range: [...] H [Aut omated message] 670) The system [employer] generated this result transmitted ref erence range: 1.56 - 6 .13 K/L. The refe rence range was not u sed to interpret this result as normal/abnor mal. # Lymphs (test code = 1.06 See_Comment L [Auto mated message] 414) The system [employer] generated this result transmitted ref erence range: 1.18 - 3 .74 K/L. The refe rence range was not u sed to interpret this result as normal/abnor mal. # Monos (test code = 0.20 See_Comment L [Autom ated message] 415) The system [employer] generated this result transmitted ref erence range: 0.24 - 0 .36 K/L. The refe rence range was not u sed to interpret this result as normal/abnor mal. # Eos (test code = 416) 0.00 See_Comment L [Au tomated message] The system [employer] generated this result transmitted ref erence range: 0.04 - 0 .36 K/L. The refe rence range was not u sed to interpret this result as normal/abnor mal. # Baso (test code = 417) 0.03 See_Comment [A utomated message] The system [employer] generated this result transmitted ref erence range: 0.01 - 0 .08 K/L. The refe rence range was not u sed to interpret this result as normal/abnor mal. Immature 1 % 0-1 Granulocytes-Relative (test code = 2801) Lab Interpretation (test Abnormal code = 09983-6) [facility] with platelet count + automated [id number] 01:08:00 Test Item Value Reference Range Interpretation Comments WBC (test code = 6690-2) 12.8 See_Comment H [A utomated message] The system [employer] generated this result transmitted ref erence range: 3.5 - 10 .5 K/L. The refe rence range was not u sed to interpret this result as normal/abnor mal. RBC (test code = 789-8) 3.64 See_Comment L [Au tomated message] The system [employer] generated this result transmitted ref erence range: 3.93 - 5 .22 M/L. The refe rence range was not u sed to interpret this result as normal/abnor mal. MCHC (test code = 786-4) 30.3 See_Comment L [A utomated message] The system [employer] generated this result transmitted ref erence range: [...] code = 299 See_Comment [Aut omated message] 637-3) The system [employer] generated this result transmitted ref erence range: 150 - 45 0 K/CU MM. The referen ce range was not u sed to interpret this result as normal/abnor mal. MPV (test code = 10.5 fL 9.4-12.3 70816-8) nRBC (test code = 413) 0 See_Comment [Aut omated message] The system [employer] generated this result transmitted ref erence range: [...] H [Aut omated message] 670) The system [employer] generated this result transmitted ref erence range: 1.56 - 6 .13 K/L. The refe rence range was not u sed to interpret this result as normal/abnor mal. # Lymphs (test code = 1.06 See_Comment L [Auto mated message] 414) The system [employer] generated this result transmitted ref erence range: 1.18 - 3 .74 K/L. The refe rence range was not u sed to interpret this result as normal/abnor mal. # Monos (test code = 0.20 See_Comment L [Autom ated message] 415) The system [employer] generated this result transmitted ref erence range: 0.24 - 0 .36 K/L. The refe rence range was not u sed to interpret this result as normal/abnor mal. # Eos (test code = 416) 0.00 See_Comment L [Au tomated message] The system [employer] generated this result transmitted ref erence range: 0.04 - 0 .36 K/L. The refe rence range was not u sed to interpret this result as normal/abnor mal. # Baso (test code = 417) 0.03 See_Comment [A utomated message] The system [employer] generated this result transmitted ref erence range: 0.01 - 0 .08 K/L. The refe rence range was not u sed to interpret this result as normal/abnor mal. Immature 1 % 0-1 Granulocytes-Relative (test code = 2801) Lab Interpretation (test Abnormal code = 22391-6) [facility] W/PLT COUNT & AUTO [id number] 01:08:00 Test Item Value Reference Range Interpretation [...] (BEAKER) (test code = 2801) Basic Metabolic [id number] 00:56:00 Test Item Value Reference Range Interpretation [...] (test code = 8.2 mg/dL 8.4-10.2 L 21985-4) EGFR (test code = 75 mL/min/1.73 [place] [address]-0) NOT ACCURATE CREATININE CLEARANCE IN PREDICTING GLOMERULAR FILTRATION RATE . ESTIMATED GFR I S NOT APPLICABLE FOR DIALYSIS PATIENTS. GABRIELA (test code = GABRIELA) Employment Law Specialist ID - PIAYA L Lab Interpretation Abnormal (test code = 55507-6) [facility] Test Item Value Reference Range Interpretation Comments Magnesium (test code = 1.7 mg/dL 1.6-2.6 87069-5) GABRIELA (test code = GABRIELA) Employment Law Specialist ID - PIAYA L Lab Interpretation (test Normal code = 23942-9) [facility]00 Test Item Value Reference Range Interpretation Comments Phosphorus (test code = 3.7 mg/dL 2.3-4.7 2777-1) GABRIELA (test code = GABRIELA) Employment Law Specialist ID - PIAYA L Lab Interpretation (test Normal code = 63785-9) [facility] [id number] 00:56:00 Test Item Value Reference Range Interpretation [...] (test code = 8.2 mg/dL 8.4-10.2 L 40187-6) EGFR (test code = 75 mL/min/1.73 sq m [facility] [place] [address]-4) NOT ACCURATE CREATININE CLEARANCE IN PREDICTING GLOMERULAR FILTRATION RATE . ESTIMATED GFR I S NOT APPLICABLE FOR DIALYSIS PATIENTS. GABRIELA (test code = GABRIELA) Employment Law Specialist ID - PIAYA L Lab Interpretation Abnormal (test code = 70733-6) [facility]56:00 Test Item Value Reference Range Interpretation Comments Magnesium (test code = 1.7 mg/dL 1.6-2.6 67840-2) GABRIELA (test code = GABRIELA) Employment Law Specialist ID - PIAYA L Lab Interpretation (test Normal code = 35225-6) [facility] Center[facility]osphorus2020-[facility] 00:56:00 Test Item Value Reference Range Interpretation Comments Phosphorus (test code = 3.7 mg/dL 2.3-4.7 2777-1) GABRIELA (test code = GABRIELA) Employment Law Specialist ID - PIAYA L Lab Interpretation (test Normal code = 64097-5) [facility] CenterBAS[facility] METABOLIC [id number] 00:56:00 Test Item Value Reference Range Interpretation [...] S NOT APPLICABLE FOR DIALYSIS PATIEN TS. Employment Law Specialist ID - PITUAN [id number] 00:56:00 Test Item Value Reference Range Interpretation Comments MAGNESIUM (BEAKER) (test code = 1.7 mg/dL 1.6-2.6 627) Employment Law Specialist ID - FARHAD [id number] 00:56:00 Test Item Value Reference Range Interpretation Comments PHOSPHORUS (BEAKER) (test code = 3.7 mg/dL 2.3-4.7 604) Employment Law Specialist ID - FARHAD LCalcium, [id number] 00:31:00 Test Item Value Reference Range Interpretation Comments Calcium, Ion (test code = 1993-) 1.18 mmol/L 1.12-1.27 pH, Blood (test code = 38810-5) 7.39 [facility] Center[facility], [id number] 00:31:00 Test Item Value Reference Range Interpretation Comments Calcium, Ion (test code = 1993-) 1.18 mmol/L 1.12-1.27 pH, Blood (test code = 55621-8) 7.39 [facility] CenterCALCIUM, [id number] 00:31:00 Test Item Value Reference Range Interpretation Comments CALCIUM IONIZED (BEAKER) (test 1.18 mmol/L 1.12-1.27 code = 698) PH, BLOOD (BEAKER) (test code = 7.39 1810) [id number] 10:46:00 Test Item Value Reference Range Interpretation Comments PTT (test code = 89064-5) 27.9 See_Comment [ Automated message] The system whic h generated this result transmitted ref erence range: 22.5 - 3 6.0 seconds. The re ference range was not u sed to interpret this result as normal/abnor mal. Lab Interpretation (test Normal code = 85035-5) [facility] CenteraPTT2020-12-07 10:46:00 Test Item Value Reference Range Interpretation Comments PTT (test code = 57906-9) 27.9 See_Comment [ Automated message] The system [facility] h generated this result transmitted ref erence range: 22.5 - 3 6.0 seconds. The re ference range was not u sed to interpret this result as normal/abnor mal. Lab Interpretation (test Normal code = 60486-1) [facility] CenterAPTT2020-12-07 10:46:00 Test Item Value Reference Range Interpretation Comments PARTIAL THROMBOPLASTIN TIME 27.9 seconds 22.5-36.0 (BEAKER) (test code = 760) Prothrombin time/[id number] 10:45:00 Test Item Value Reference Interpretation Comments [...] valves. Lab Interpretation Normal (test code = 29399-4) [facility] CenterProthrombin time/[id number] 10:45:00 Test Item Value Reference Interpretation Comments Range Protime (test code = 13.4 See_Comment [Autom ated 5902-2) message] The system which generated this result transmitted reference range : 11.9 - 14.2 seconds. The reference range was not used to interpret this result as normal/abnormal . INR (test code = 1.05 See_Comment [Automated 5611-6) message] The system which generated this result [...] valves. Lab Interpretation Normal (test code = 13424-1) [facility] CenterPROTHROMBIN TIME/[id number] 10:45:00 Test Item Value Reference Range Interpretation Comments PROTIME (YEECNIA) (test code = 13.4 seconds 11.9-14.2 759) INR (YECENIA) (test code = 370) 1.05 <=5.90 Effective 03/11/2019: PT Reference Range ChangeNew: 11.9-14.2 Previous: 11.7- 14.7RECOMMENDED COUMADIN/WARFARIN INR THERAPY RANGESSTANDARD DOSE: 2.0-3.0 Includes: PROPHYLAXIS for venous thrombosis, systemic embolization; TREATMENT for venous thrombosis and/or pulmonary embolus.HIGH RISK: Target INR is 2.5-3.5 for patients wiht mechanical heart valves.POCT-GLUCOSE [id number] 09:19:00 Test Item Value Reference Range Interpretation Comments POC-GLUCOSE METER 187 mg/dL 70-110 H : TESTED A T [facility] 6720 (YECENIA) (test code = ERENDIRA BRAGA, 1538) [address]: Employment Law Specialist/Techni ciara ID = [id number] for Jojo Rivers ECG 12 [id number] 12:51:19Interface, External Ris In - 09/14/2020 12:51 PM CSTVentricular Rate 65 BPMAtrial Rate 65 BPMP-R Interval 154 msQRS Duration 78 msQ-T Interval 442 msQTC Calculation(Bazett) 459 msP Crawley 5 degreesR Axis77 degreesT Crawley 66 degreesNormal sinus rhythmNonspecific T wave abnormalityProlonged QTWhen compared with ECG of 02-AUG-2019 06:01,Premature ventricular complexes are no longer PresentConfirmed by Daksha NICHOLE BASANT ([id number]) on 09/14/2020 12:51:17 [facility] [id number] 12:51:19Interface, External Ris In - 09/14/2020 12:51 PM CSTVentricular Rate 65 BPMAtrial Rate 65 BPMP-R Interval 154 msQRS Duration 78 msQ-T Interval 442 msQTC Calculation(Bazett) 459 msP Crawley 5 degreesR Axis77 degreesT Crawley 66 degreesNormal sinus rhythmNonspecific T wave abnormalityProlonged QTWhen compared with ECG of 02-AUG-2019 06:01,Premature ventricular complexes are no longer PresentConfirmed by Daksha NICHOLE, MOLLY ([id number]) on 09/14/2020 12:51:17 [facility] HospitalABORH, [id number] 16:42:00 Test Item Value Reference Range Interpretation Comments ABO Grouping (test code = 2588) A Rh Factor (test code = 2589) POS [facility], [id number] 16:42:00 Test Item Value Reference Range Interpretation Comments ABO Grouping (test code = 2588) A Rh Factor (test code = 2589) POS [facility] CenterType and screen, [id number] 16:36:00 Test Item Value Reference Range Interpretation Comments Ab Scrn (test code = 890-4) NEGATIVE echo2 [facility] CenterType and screen, [id number] 16:36:00 Test Item Value Reference Range Interpretation Comments Ab Scrn (test code = 890-4) NEGATIVE echo2 [facility] CenterBASIC METABOLIC [id number] 15:32:00 Test Item Value Reference Range Interpretation [...] S NOT APPLICABLE FOR DIALYSIS PATIEN TS. Employment Law Specialist ID - ADMINPROTHROMBIN TIME/[id number] 15:29:00 Test Item Value Reference Range Interpretation [...] mechanical heart valves.CBC W/PLT COUNT & AUTO [id number] 15:17:00 Test Item Value Reference Range Interpretation [...] (BEAKER) (test code = 2801) BASIC METABOLIC [id number] 06:24:00 Test Item Value Reference Range Interpretation [...] 0-0 (BEAKER) (test code = 413) POCT-GLUCOSE [id number] 21:22:00 Test Item Value Reference Range Interpretation Comments POC-GLUCOSE METER 138 mg/dL 70-110 H TESTED AT [facility] 6720 (BEAKER) (test code = BRIG[place]ASANDRA [place] 1538) [address] POCT-GLUCOSE [id number] 17:38:00 Test Item Value Reference Range Interpretation Comments POC-GLUCOSE METER 131 mg/dL 70-110 H TESTED AT [facility] 6720 (BEAKER) (test code = ERENDIRA [place] 1538) [address] BASIC METABOLIC [id number] 06:07:00 Test Item Value Reference Range Interpretation [...] 1092) DATA TO CALCULA TE ESTIMATED GFR. [id number] 06:04:00 Test Item Value Reference Range Interpretation [...] H (BEAKER) (test code = 413) POCT-GLUCOSE [id number] 23:10:00 Test Item Value Reference Range Interpretation Comments POC-GLUCOSE METER 127 mg/dL 70-110 H TESTED AT [facility] 6720 (BEAKER) (test code = ERENDIRA Guzman [place] 1538) [address] POCT-GLUCOSE [id number] 12:36:00 Test Item Value Reference Range Interpretation Comments POC-GLUCOSE METER 157 mg/dL 70-110 H TESTED AT [facility] 6720 (BEAKER) (test code = ERENDIRA Guzman [place] 1538) [address] CBC (HEMOGRAM ONLY)2019-08-02 06:03:00 Test Item Value [...] (BEAKER) (test code = 413) BASIC METABOLIC [id number] 05:47:00 Test Item Value Reference Range Interpretation [...] 1092) DATA TO CALCULA TE ESTIMATED GFR. [id number] 05:46:00 Test Item Value Reference Range Interpretation Comments PHOSPHORUS (BEAKER) (test code = 2.5 mg/dL 2.3-4.7 604) [id number] 05:46:00 Test Item Value Reference Range Interpretation Comments MAGNESIUM (BEAKER) (test code = 2.1 mg/dL 1.6-2.6 627) POCT-GLUCOSE [id number] 20:47:00 Test Item Value Reference Range Interpretation Comments POC-GLUCOSE METER 164 mg/dL 70-110 H TESTED AT [facility] 6720 (BEAKER) (test code = ERENDIRA Guzman [place] 1538) [address] POCT-GLUCOSE [id number] 17:38:00 Test Item Value Reference Range Interpretation Comments POC-GLUCOSE METER 194 mg/dL 70-110 H TESTED AT [facility] 6720 (BEAKER) (test code = ERENDIRA Guzman [place] 1538) [address] POCT-GLUCOSE [id number] 07:51:00 Test Item Value Reference Range Interpretation Comments POC-GLUCOSE METER 157 mg/dL 70-110 H TESTED AT [place] [address] (BEAKER) (test code = ERENDIRA [place] 1538) [address] HEMOGLOBIN [id number] 07:51:00 Test Item Value Reference Range Interpretation Comments HEMOGLOBIN A1C (BEAKER) (test code = 8.6 % 4.3-6.1 H 368) BASIC METABOLIC [id number] 06:11:00 Test Item Value Reference Range Interpretation [...] 1092) DATA TO CALCULA TE ESTIMATED GFR. [id number] 06:10:00 Test Item Value Reference Range Interpretation Comments PHOSPHORUS (BEAKER) (test code = 1.9 mg/dL 2.3-4.7 L 604) [id number] 06:10:00 Test Item Value Reference Range Interpretation [...] (BEAKER) (test code = 412) PLATELET COUNT (AKER) (test 277 K/CU MM 150-450 code = 756) MEAN PLATELET VOLUME (AKER) 10.5 fL 9.4-12.3 (test code = 754) NUCLEATED RED BLOOD CELLS 0 /100 WBC 0-0 (AKER) (test code = 413) POCT-GLUCOSE [id number] 22:07:00 Test Item Value Reference Range Interpretation Comments POC-GLUCOSE METER 175 mg/dL 70-110 H TESTED AT [place] [address] ([facility]) (test code = [facility] 1538) [address] POCT-GLUCOSE [id number] 18:30:00 Test Item Value Reference Range Interpretation Comments POC-GLUCOSE METER 225 mg/dL 70-110 H TESTED AT [place] [address] ([facility]) (test code = [facility] 1538) [address] POCT-GLUCOSE [id number] 12:17:00 Test Item Value Reference Range Interpretation Comments POC-GLUCOSE METER 170 mg/dL 70-110 H TESTED AT [place] [address] ([facility]) (test code = [facility] Thomas [facility] 1538) [address] POCT-GLUCOSE [id number] 08:20:00 Test Item Value Reference Range Interpretation Comments POC-GLUCOSE METER 161 mg/dL 70-110 H TESTED AT [place] [address] ([facility]) (test code = [facility] Thomas [facility] 1538) [address] BASIC METABOLIC [id number] 08:18:00 Test Item Value Reference Range Interpretation [...] 1092) DATA TO CALCULA TE ESTIMATED GFR. [id number] 08:15:00 Test Item Value Reference Range Interpretation Comments MAGNESIUM (BEAKER) 1.9 mg/dL 1.6-2.6 Specimen slightly (test code = 627) hemolyzed [id number] 08:15:00 Test Item Value Reference Range Interpretation Comments PHOSPHORUS (BEAKER) 2.3 mg/dL 2.3-4.7 Specimen slightly (test code = 604) hemolyzed RAD, CHEST, 1 VIEW, NON [id number] 07:56:00Reason for exam:->post-op cardiac surgeryShould this be [...] MDReport Verified Date/Time: 07/31/2019 07:56:15 Reading Location: [facility] Radiology Reading Room Electronically signed by: DIXON WILKERSON on 07/31 07:56 AMPT/[id number] 07:25:00 Test Item Value Reference Range Interpretation [...] 0-0 (BEAKER) (test code = 413) POCT-GLUCOSE [id number] 21:32:00 Test Item Value Reference Range Interpretation Comments POC-GLUCOSE METER 168 mg/dL 70-110 H TESTED AT [facility] 6720 ([facility]) (test code = ERENDIRA BRAGA 1538) [address] POCT-GLUCOSE [id number] 17:55:00 Test Item Value Reference Range Interpretation Comments POC-GLUCOSE METER 172 mg/dL 70-110 H TESTED AT [place] [address] ([facility] (test code = ERENDIRA Guzman [facility] 1538) [address] POCT-GLUCOSE [id number] 15:34:00 Test Item Value Reference Range Interpretation Comments POC-GLUCOSE METER 152 mg/dL 70-110 H TESTED AT [place] [address] ([facility]) (test code = [facility] Thomas [facility] 1538) [address] POCT-GLUCOSE [id number] 12:52:00 Test Item Value Reference Range Interpretation Comments POC-GLUCOSE METER 222 mg/dL 70-110 H TESTED AT [place] [address] ([facility]) (test code = [facility] Thomas [facility] 1538) [address] POCT-GLUCOSE [id number] 07:19:00 Test Item Value Reference Range Interpretation Comments POC-GLUCOSE METER 185 mg/dL 70-110 H TESTED AT [place] [address] ([facility]) (test code = [facility] Thomas [facility] 1538) [address] [id number] 06:16:00 Test Item Value Reference Range Interpretation Comments ACTIVATED CLOTTING TIME 109 sec Refe rence Range: 74-137 (BEAKER) (test code = second s, 441) Baseline/TESTED AT [address] [address] [id number] 06:16:00 Test Item Value Reference Range Interpretation Comments ACTIVATED CLOTTING TIME 543 sec Refe rence Range: 74-137 (BEAKER) (test code = second s, 441) Baseline/TESTED AT [address] [address] [id number] 06:16:00 Test Item Value Reference Range Interpretation Comments ACTIVATED CLOTTING TIME 510 sec Refe rence Range: 74-137 (BEAKER) (test code = second s, 441) Baseline/TESTED AT [address] [address] BASIC METABOLIC [id number] 06:04:00 Test Item Value Reference Range Interpretation [...] 1092) DATA TO CALCULA TE ESTIMATED GFR. [id number] 06:02:00 Test Item Value Reference Range Interpretation Comments PHOSPHORUS (BEAKER) (test code = 3.7 mg/dL 2.3-4.7 604) [id number] 06:02:00 Test Item Value Reference Range Interpretation Comments MAGNESIUM (BEAKER) (test code = 2.0 mg/dL 1.6-2.6 627) [id number] 05:57:00 Test Item Value Reference Range Interpretation [...] 2.5-3.5 for patients wiht mechanical heart valves.PROTHROMBIN TIME/[id number] 05:56:00 Test Item Value Reference Range Interpretation [...] 2.5-3.5 for patients wiht mechanical heart valves.CALCIUM, [id number] 05:55:00 Test Item Value Reference Range Interpretation Comments CALCIUM IONIZED (BEAKER) (test 1.17 mmol/L 1.12-1.27 code = 698) PH, BLOOD (BEAKER) (test code = 7.38 1810) CBC W/PLT COUNT & AUTO [id number] 05:55:00 Test Item Value Reference Range Interpretation [...] (BEAKER) (test code = 2801) OXYGEN SATURATION, [id number] 05:49:00 Test Item Value Reference Range Interpretation Comments O2 SATURATION (MEASURED) (BEAKER) 77.2 % (test code = 1455) RAD, CHEST, 1 VIEW, NON [id number] 05:35:00Reason for exam:->post-op cardiac surgeryShould this be [...] Signed: Hortencia Brand Verified Date/Time: 07/30/2019 05:35:16 [id number] 18:41:00 Test Item Value Reference Range Interpretation Comments POTASSIUM (BEAKER) (test code = 4.2 meq/L 3.5-5.1 379) PRN - repeat potassium levels every 1 hour until glucose level is less than 450 mg/dLPOCT-GLUCOSE [id number] 18:14:00 Test Item Value Reference Range Interpretation Comments POC-GLUCOSE METER 175 mg/dL 70-110 H TESTED AT [facility] 67[address] ([facility]) (test code = ERENDIRA Guzman [facility] 1538) [address] BLOOD GAS, [id number] 16:57:00 Test Item Value Reference Range Interpretation [...] (test code = 1819) 40.0 % HEMOGLOBIN [id number] 16:17:00 Test Item Value Reference Range Interpretation Comments HEMOGLOBIN A1C (BEAKER) (test code = 9.5 % 4.3-6.1 H 368) PLATELET AGGREGATION: FUNCTION [id number] 15:15:00 Test Item Value Reference Range Interpretation Comments [id number]-[id number] Giovanni Tee M.D. ([facility]) (test code = (electonic signature) 2842) PLATELET COUNT AGG 273 K/CU MM 150-450 [...] be falsely low with platelet counts<75,000/cu mm.POCT-GLUCOSE [id number] 15:07:00 Test Item Value Reference Range Interpretation Comments POC-GLUCOSE METER 125 mg/dL 70-110 H TESTED AT [facility] 6720 (BEAKER) (test code = ERENDIRA [place]man [place] 1538) [address] POCT-GLUCOSE [id number] 14:26:00 Test Item Value Reference Range Interpretation Comments POC-GLUCOSE METER 85 mg/dL 70-110 TESTED AT [place] [address] ([facility]) (test code = ERENDIRA Guzman [facility] [address] 1538) POCT-GLUCOSE [id number] 14:14:00 Test Item Value Reference Range Interpretation Comments POC-GLUCOSE METER 88 mg/dL 70-110 TESTED AT [place] [address] ([facility]) (test code = ERENDIRA Guzman [facility] [address] 1538) RAD, CHEST, 1 VIEW, NON [id number] 13:11:00Reason for exam:->Status post CV Surgery post [...] evidence of postoperative complication. Signed: Abdelrahman Akbar Verified Da te/Time: 07/29/2019 13:11:13 Reading Location: [facility] Reading Room -GLUCOSE [id number] 13:00:00 Test Item Value Reference Range Interpretation Comments POC-GLUCOSE METER 132 mg/dL 70-110 H TESTED AT [place] [address] ([facility]) (test code = ERENDIRA Guzman [facility] 1538) [address] BASIC METABOLIC [id number] 12:28:00 Test Item Value Reference Range Interpretation [...] 1092) DATA TO CALCULA TE ESTIMATED GFR. [id number] 12:27:00 Test Item Value Reference Range Interpretation Comments PHOSPHORUS (BEAKER) (test code = 2.3 mg/dL 2.3-4.7 604) [id number] 12:27:00 Test Item Value Reference Range Interpretation Comments MAGNESIUM (BEAKER) (test code = 2.6 mg/dL 1.6-2.6 627) [id number] 12:26:00 Test Item Value Reference Range Interpretation Comments PARTIAL THROMBOPLASTIN TIME 27.4 seconds 22.5-36.0 (BEAKER) (test code = 760) PROTHROMBIN TIME/[id number] 12:25:00 Test Item Value Reference Range Interpretation [...] for patients wiht mechanical heart valves.LACTIC ACID, [id number] 12:21:00 Test Item Value Reference Range Interpretation Comments LACTATE BLOOD ARTERIAL (2) 1.2 mmol/L 0.5-2.2 (BEAKER) (test code = 2874) CBC W/PLT COUNT & AUTO [id number] 12:08:00 Test Item Value Reference Range Interpretation [...] PERCENT (BEAKER) (test code = 2801) CALCIUM, [id number] 12:04:00 Test Item Value Reference Range Interpretation Comments CALCIUM IONIZED (BEAKER) (test 1.15 mmol/L 1.12-1.27 code = 698) PH, BLOOD (BEAKER) (test code = 7.44 1810) BLOOD GAS, [id number] 12:03:00 Test Item Value Reference Range Interpretation [...] code = 1819) 60.0 % OXYGEN SATURATION, [id number] 12:00:00 Test Item Value Reference Range Interpretation Comments O2 SATURATION (MEASURED) (BEAKER) 66.6 % (test code = 1455) For occult [id number] 11:53:00 Test Item Value Reference Range Interpretation Comments PHOSPHORUS (BEAKER) (test code = 2.9 mg/dL 2.3-4.7 604) CALCIUM, [id number] 10:32:00 Test Item Value Reference Range Interpretation Comments CALCIUM IONIZED (BEAKER) (test 1.03 mmol/L 1.12-1.27 L code = 698) PH, BLOOD (BEAKER) (test code = 7.33 1810) BLOOD GAS, [id number] 10:31:00 Test Item Value Reference Range Interpretation [...] code = 1819) 100.0 % SODIUM NA-STAT [id number] 10:31:00 Test Item Value Reference Range Interpretation Comments SODIUM (BEAKER) (test code = 381) 133 meq/L 135-148 L GLUCOSE-STAT [id number] 10:31:00 Test Item Value Reference Range Interpretation Comments GLUCOSE RANDOM (BEAKER) (test code 226 mg/dL 70-110 H = 652) HGB/HCT (H&H) - STAT [id number] 10:31:00 Test Item Value Reference Range Interpretation Comments HEMOGLOBIN (BEAKER) (test code = 8.0 g/dL 12.0-15.0 L 410) HEMATOCRIT (BEAKER) (test code = 24.0 % 36.0-45.0 L 411) POTASSIUM-STAT [id number] 10:30:00 Test Item Value Reference Range Interpretation Comments POTASSIUM (BEAKER) (test code = 4.2 meq/L 3.6-5.5 379) BLOOD GAS, [id number] 10:05:00 Test Item Value Reference Range Interpretation [...] code = 1819) 80.0 % SODIUM NA-STAT [id number] 10:05:00 Test Item Value Reference Range Interpretation Comments SODIUM (BEAKER) (test code = 381) 127 meq/L 135-148 L POTASSIUM-STAT [id number] 10:05:00 Test Item Value Reference Range Interpretation Comments POTASSIUM (BEAKER) (test code = 5.9 meq/L 3.6-5.5 H 379) GLUCOSE-STAT [id number] 10:05:00 Test Item Value Reference Range Interpretation Comments GLUCOSE RANDOM (BEAKER) (test code 241 mg/dL 70-110 H = 652) HGB/HCT (H&H) - STAT [id number] 10:05:00 Test Item Value Reference Range Interpretation Comments HEMOGLOBIN (BEAKER) (test code = 8.0 g/dL 12.0-15.0 L 410) HEMATOCRIT (BEAKER) (test code = 24.0 % 36.0-45.0 L 411) BLOOD GAS, [id number] 09:51:00 Test Item Value Reference Range Interpretation [...] code = 1819) 80.0 % SODIUM NA-STAT [id number] 09:51:00 Test Item Value Reference Range Interpretation Comments SODIUM (BEAKER) (test code = 381) 130 meq/L 135-148 L GLUCOSE-STAT [id number] 09:51:00 Test Item Value Reference Range Interpretation Comments GLUCOSE RANDOM (BEAKER) (test code 249 mg/dL 70-110 H = 652) HGB/HCT (H&H) - STAT [id number] 09:51:00 Test Item Value Reference Range Interpretation Comments HEMOGLOBIN (BEAKER) (test code = 8.1 g/dL 12.0-15.0 L 410) HEMATOCRIT (BEAKER) (test code = 24.0 % 36.0-45.0 L 411) POTASSIUM-STAT [id number] 09:50:00 Test Item Value Reference Range Interpretation Comments POTASSIUM (BEAKER) (test code = 5.4 meq/L 3.6-5.5 379) BLOOD GAS, [id number] 09:23:00 Test Item Value Reference Range Interpretation [...] code = 1819) 100.0 % SODIUM NA-STAT [id number] 09:23:00 Test Item Value Reference Range Interpretation Comments SODIUM (BEAKER) (test code = 381) 132 meq/L 135-148 L GLUCOSE-STAT [id number] 09:23:00 Test Item Value Reference Range Interpretation Comments GLUCOSE RANDOM (BEAKER) (test code 164 mg/dL 70-110 H = 652) CALCIUM, [id number] 09:23:00 Test Item Value Reference Range Interpretation Comments CALCIUM IONIZED (BEAKER) (test 1.05 mmol/L 1.12-1.27 L code = 698) PH, BLOOD (BEAKER) (test code = 7.44 1810) POTASSIUM-STAT [id number] 09:22:00 Test Item Value Reference Range Interpretation Comments POTASSIUM (BEAKER) (test code = 4.0 meq/L 3.6-5.5 379) HGB/HCT (H&H) - STAT [id number] 09:22:00 Test Item Value Reference Range Interpretation Comments HEMOGLOBIN (BEAKER) (test code = 12.2 g/dL 12.0-15.0 410) HEMATOCRIT (BEAKER) (test code = 36.0 % 36.0-45.0 411) RAD, CHEST, 1 VIEW, NON [id number] 07:12:00Reason for exam:->preopShould this be performed at the bedside?->YesFINAL REPORT INDICATION: preop COMPARISON: None TECHNIQUE: Single frontal view of the chest. FINDINGS: Lungs and pleura: Clear lungs. No effusion.Heart and mediastinum: Normal heart size. Unremarkable mediastinal contours.Osseous structures: No acute abnormality.Other: None. IMPRESSION: No acute intrathoracic abnormality. Signed: Deirdre De Jesus MDReport Verified Date/Time: 07/29/2019 07:12:45 [id number] 07:01:00 Test Item Value Reference Range Interpretation Comments PARTIAL THROMBOPLASTIN TIME 31.2 seconds 22.5-36.0 (BEAKER) (test code = 760) BASIC METABOLIC [id number] 05:57:00 Test Item Value Reference Range Interpretation [...] 1092) DATA TO CALCULA TE ESTIMATED GFR. [id number] 05:51:00 Test Item Value Reference Range Interpretation Comments MAGNESIUM (BEAKER) (test code = 1.9 mg/dL 1.6-2.6 627) PT/[id number] 05:35:00 Test Item Value Reference Range Interpretation [...] 2.5-3.5 for patients wiht mechanical heart valves.PROTHROMBIN TIME/[id number] 05:34:00 Test Item Value Reference Range Interpretation [...] mechanical heart valves.CBC W/PLT COUNT & AUTO [id number] 05:24:00 Test Item Value Reference Range Interpretation [...] % 0-1 PERCENT (BEAKER) (test code = 3272)
[2022-07-07] MEDS ORDERED: NA CHLORIDE 0.9% 500 ML ONE (13:58)
[2022-07-07] MEDS ORDERED: MEPERIDINE HCL 25 MG/ML SYR ONE (13:58)
[2022-07-07 14:02] LABS: Absolute Lymphocytes (CBC) 3.2 K/uL (0.7-4.9); Hematocrit 40.3 % (36.0-45.0); Lymphocytes % 28.6 % (15.3-44.8); MCV 100.5 fL (80-100); MPV 8.2 fL (7.6-11.3); RBC Red Blood Cell Count 4.01 M/uL (3.86-4.86)
--- NOTE | 2022-07-07 14:09 | RAD REPORT ---
EXAM DESCRIPTION: RAD - Chest Single View - 07/07/2022 1:46 pm CLINICAL HISTORY: HTN Chest pain. COMPARISON: Chest Single View dated 06/27/2022; Chest Single View dated 08/20/2021; Chest Single View dated 06/14/2021; Chest Single View dated 05/31/2020 FINDINGS: Portable technique limits examination quality. The lungs are grossly clear. The heart is mildly enlarged in size. No displaced fractures.Sternotomy wires present. IMPRESSION: No acute intrathoracic process suspected.
[2022-07-07 14:10] LABS: Potassium 3.6 mmol/L (3.5-5.1); Troponin High Sensitivity 29.7 pg/mL (<58.9)
--- NOTE | 2022-07-07 14:13 | RAD REPORT ---
EXAM DESCRIPTION: CT - Head Brain Wo Cont - 07/07/2022 2:05 pm CLINICAL HISTORY: headache, HTN Headache, drowsiness, hypertension. COMPARISON: Head Brain Wo Cont dated 06/27/2022; Head Brain Wo Cont dated 03/16/2019 TECHNIQUE: All CT scans are performed using dose optimization technique as appropriate and may inclu de automated exposure control or mA/KV adjustment according to patient size. FINDINGS: No intracranial hemorrhage, hydrocephalus or extra-axial fluid collection.Moderate brain a trophy.No areas of brain edema or evidence of midline shift. The paranasal sinuses and mastoids are clear. The calvarium is intact. IMPRESSION: No acute intracranial abnormality.
--- NOTE | 2022-07-07 14:28 | EDPHYS ---
Physician Documentation [facility] Name: Ivet Calderon Age: 71 yrs Sex: Female : 1950 Arrival Date: 07/07/2022 Time: 13:30 Bed 18 Private MD: ED Physician Ty Walsh HPI: 07/07 13:50 This 71 yrs old Female presents to ER via EMS with complaints of HTN, CANTRELL. rn 13:50 The patient complains of pain to the top of head and forehead. The patient describes rn the headache as aching. Onset: The symptoms/episode began/occurred today. Associated signs and symptoms: Pertinent negatives: altered mental status, fever, neck stiffness, rash, vision changes, vision loss, vomiting, weakness, vertigo. Severity of symptoms: At its worst the pain was moderate, "similar to past headaches", in the emergency department the pain is unchanged. The symptoms are alleviated by nothing. the symptoms are aggravated by nothing. The patient has experienced similar episodes in the past. The patient has been recently seen by a physician: The patient has been recently seen at the [facility] Emergency Department, The patient has been recently been admitted at [facility]. Pt reports had stroke last week, has been getting physical therapy for stroke, included symptoms of leg weakness and tongue numbness. Reports placed on several new medications after this hospitalization and is taking as prescribed. Noticed headache today, states gets headaches when BP is elevated, checked BP, was elevated, and called 911. No new neurological symptoms reported. . Historical: - Allergies: 13:41 Morphine; mb8 - PMHx: 13:35 Diabetes - NIDDM; heart attack; Hypercholesterolemia; Hypertension; mb8 - PSHx: 13:35 Appendectomy; Cholecystectomy; open heart surgery; Stented artery; mb8 - Social history:: Smoking status: Patient denies any tobacco usage or history of. - Family history:: not pertinent. - Hospitalizations: : No recent hospitalization is reported. ROS: 13:56 Constitutional: Negative for fever, chills, and weight loss, Eyes: Negative for injury, rn pain, redness, and discharge, ENT: Negative for injury, pain, and discharge, Neck: Negative for injury, pain, and swelling, Cardiovascular: Negative for chest pain, palpitations, and edema, Respiratory: Negative for shortness of breath, cough, wheezing, and pleuritic chest pain, Abdomen/GI: Negative for abdominal pain, nausea, vomiting, diarrhea, and constipation, Back: Negative for injury and pain, MS/Extremity: Negative for injury and deformity, Skin: Negative for injury, rash, and discoloration, Neuro: Negative for weakness, numbness, tingling, and seizure. Exam: 13:55 ECG was reviewed by the Attending Physician. rn 13:56 Constitutional: This is a well developed, well nourished patient who is awake, alert, rn and in no acute distress. Head/Face: Normocephalic, atraumatic. Eyes: Periorbital areas with no swelling, redness, or edema. Neck: Trachea midline, no thyromegaly or masses palpated, and no cervical lymphadenopathy. Supple, full range of motion without nuchal rigidity, or vertebral point tenderness. No Meningismus. Cardiovascular: Regular rate and rhythm. No pulse deficits. Respiratory: No increased work of breathing, no retractions or nasal flaring. Abdomen/GI: Soft, non-tender Skin: Warm, dry MS/ Extremity: Pulses equal, no cyanosis. Neuro: Awake and alert, GCS 15, oriented to person, place, time, and situation. Cranial nerves II-XII grossly intact. Motor strength 5/5 in all extremities. Sensory grossly intact. Cerebellar exam normal. Vital Signs: 13:34 BP 179 / 62; Pulse 71; Resp 20; Temp 98; Pulse Ox 97% ; Pain 10/10; mb8 13:54 BP 157 / 51; Pulse 66; Resp 16; Pulse Ox 99% ; mb8 14:29 BP 157 / 70; Pulse 65; Resp 18; Pulse Ox 99% ; mb8 NIH Stroke Scale Scores: 14:01 NIHSS Score: 0 mb8 Jason Coma Score: 14:26 Eye Response: spontaneous(4). Verbal Response: oriented(5). Motor Response: obeys rn commands(6). Total: 15. MDM: 13:30 Patient medically screened. rn 14:26 Differential diagnosis: hypertensive headache, intracerebral hemorrhage, migraine, rn tension headache, vasomotor headache. Data reviewed: vital signs, nurses notes, lab test result(s), radiologic studies, CT scan, and as a result, I will discharge patient. Counseling: I had a detailed discussion with the patient and/or guardian regarding: the historical points, exam findings, and any diagnostic results supporting the discharge/admit diagnosis, lab results, radiology results, the need for outpatient follow up, to return to the emergency department if symptoms worsen or persist or if there are any questions or concerns that arise at home. Counseling: I had a detailed discussion with the patient and/or guardian regarding: the presence of at least one elevated blood pressure reading (>120/80) during this emergency department visit. Response to treatment: the patient's symptoms have markedly improved after treatment, and as a result, I will discharge patient. Special discussion: I have referred the patient to see his PCP for further evaluation of high blood pressure. I discussed with the patient/guardian in detail that at this point there is no indication for admission to the hospital. It is understood, however, that if the symptoms persist or worsen the patient needs to return immediately for re-evaluation. 07/07 13:31 Order name: Basic Metabolic Panel; Complete Time: 14:13 07/07 13:31 Order name: CBC with Diff; Complete Time: 14:07/07 13:31 Order name: NT PRO-BNP; Complete Time: 14:07/07 13:31 Order name: Troponin HS; Complete Time: 14:13 07/07 13:31 Order name: XRAY Chest (1 view); Complete Time: 14:13 07/07 13:31 Order name: CT Head Brain wo Cont; Complete Time: 14:13 07/07 13:31 Order name: EKG; Complete Time: 13:32 07/07 13:31 Order name: Cardiac monitoring; Complete Time: 13:33 07/07 13:31 Order name: EKG - Nurse/Tech; Complete Time: 13:54 07/07 13:31 Order name: IV Saline Lock; Complete Time: 13:07/07 13:31 Order name: Labs collected and sent; Complete Time: 13:54 07/07 13:31 Order name: O2 Per Protocol; Complete Time: 13:07/07 13:31 Order name: O2 Sat Monitoring; Complete Time: 13:33 rn EC:55 Rate is 70 beats/min. Rhythm is regular. QRS [place] is Normal. [place] interval is normal. QRS rn interval is normal. QT interval is normal. No Q waves. T waves are Normal. No ST changes noted. Clinical impression: Normal ECG. Interpreted by me. Reviewed by me. Administered Medications: 13:48 CANCELLED (Duplicate Order): morphine 2 mg IVP once over 4 mins rn 13:54 Drug: NS 0.9% 500 ml Route: IV; Rate: bolus; Site: right antecubital; mb8 14:25 Follow up: Response: No adverse reaction; IV Status: Completed infusion mb8 13:54 Drug: Demerol (meperidine) 25 mg Route: IVP; Site: right antecubital; mb8 14:25 Follow up: Response: No adverse reaction; Pain is decreased mb8 Disposition Summary: 07/07/22 14:28 Discharge Ordered Location: Home rn Problem: an ongoing problem rn Symptoms: have improved rn Condition: Stable rn Diagnosis - Essential (primary) hypertension rn - Headache rn Followup: rn - With: Private Physician - When: As needed - Reason: Recheck today's complaints, Re-evaluation by your physician Discharge Instructions: - Discharge Summary Sheet rn - General Headache Without Cause rn - Hypertension, Adult rn Forms: - Medication Reconciliation Form rn - Thank You Letter rn - Antibiotic pediatric rn - Prescription Opioid Use rn NIH Stroke Scale - NIH Stroke Score Date: 07/07/2022 Time: 14:01 Total Score = 0 1a. Level of Consciousness (LOC) - 0(Alert) 1b. Level of Consciousness (LOC) (Month \\T\\ Age) - 0(Both) 1c. LOC Commands (Open \\T\\ Closes Eyes/Rn Clinical Resource) - 0(Both) 2. Best Gaze (Lateral Gaze Paresis) - 0(Normal) 3. Visual Field Loss - 0(No visual loss) 4. Facial Palsy - 0(Normal) 5a. Left Arm: Motor (10-second hold) - 0(No drift) 5b. Right Arm: Motor (10-second hold) - 0(No drift) 6a. Left Leg: Motor (5-second hold - always test supine) - 0(No drift) 6b. Right Leg: Motor (5-second hold - always test supine) - 0(No drift) 7. Limb Ataxia (finger/nose \\T\\ heel/up - test with eyes open) - 0(Absent) 8. Sensory Loss (pinprick arms/legs/face) - 0(Normal) 9. Best Language: Aphasia (description/naming/reading) - 0(No aphasia) 10. Dysarthria (speech clarity - read or repeat words) - 0(Normal) 11. Extinction and Inattention (visual/tactile/auditory/spatial/personal) - 0(No abnormality) Initials: chacho Signatures: Dispatcher [employer] EDTy Villagomez MD MD rn Bates, Michael, RN RN mb8 Corrections: (The following items were deleted from the chart) 13:36 13:35 Allergies: Morphine (burning to IV site); chacho flor 13:41 13:35 Allergies: No Known Allergies; chacho flor 13:48 13:32 morphine 2 mg IVP once over 4 mins ordered. sean setrada
--- NOTE | 2022-07-07 14:28 | ER ---
Nurse's Notes [facility] Name: Ivet Calderon Age: 71 yrs Sex: Female : 1950 Arrival Date: 07/07/2022 Time: 13:30 Bed 18 Private MD: Diagnosis: Essential (primary) hypertension;Headache Presentation: 07/07 13:34 Chief complaint: Patient states: CANTRELL and HTN, was just seen last week with similar mb8 issues and dx with a stroke. Coronavirus screen: Vaccine status: Patient reports receiving the 2nd dose of the covid vaccine. Ebola Screen: Patient negative for fever greater than or equal to 101.5 degrees Fahrenheit, and additional compatible Ebola Virus Disease symptoms Patient denies exposure to infectious person. Patient denies travel to an Ebola-affected area in the 21 days before illness onset. Initial Sepsis Screen: Does the patient meet any 2 criteria? No. Patient's initial sepsis screen is negative. Does the patient have a suspected source of infection? No. Patient's initial sepsis screen is negative. Risk Assessment: Do you want to hurt yourself or someone else? Patient reports no desire to harm self or others. Onset of symptoms is unknown. 13:34 Method Of Arrival: EMS mb8 13:34 Acuity: DORYS 3 mb8 Triage Assessment: 13:36 General: Appears uncomfortable, Behavior is calm, cooperative, appropriate for age. mb8 Historical: - Allergies: 13:41 Morphine; mb8 - PMHx: 13:35 Diabetes - NIDDM; heart attack; Hypercholesterolemia; Hypertension; mb8 - PSHx: 13:35 Appendectomy; Cholecystectomy; open heart surgery; Stented artery; mb8 - Social history:: Smoking status: Patient denies any tobacco usage or history of. - Family history:: not pertinent. - Hospitalizations: : No recent hospitalization is reported. Screenin:37 Abuse screen: Denies threats or abuse. Denies injuries from another. Nutritional mb8 screening: No deficits noted. Tuberculosis screening: No symptoms or risk factors identified. Fall Risk No fall in past 12 months (0 pts). Secondary diagnosis (15 points) IV access (20 points). Ambulatory Aid- None/Bed Rest/Nurse Assist (0 pts). Gait- Weak (10 pts.). Mental Status- Oriented to own ability (0 pts). Total Gallegos Fall Scale indicates Low Risk Score (25-44 pts). Fall prevention measures have been instituted. Side Rails Up X 2 As available Patient and Family Educated on Fall Prevention Program and strategies. 14:01 VAN Screening: Arm Drift: Patient shows no arm weakness. Visual Disturbance: No visual mb8 disturbance noted. Aphasia: No aphasia noted. Neglect: No neglect noted. Assessment: 13:36 Pain: Complains of pain in Head Pain does not radiate. Pain currently is 10 out of 10 mb8 on a pain scale. Quality of pain is described as aching. Neuro: No deficits noted. Level of Consciousness is awake, alert, obeys commands, Oriented to person, place, time, situation, Appropriate for age Flower Picker are equal bilaterally Moves all extremities. Full function Gait is steady, Speech is normal, Facial symmetry appears normal, Pupils are PERRLA, Intact. Cardiovascular: Capillary refill < 3 seconds Pulses are all present. are 3+ in right radial artery and left radial artery Rhythm is sinus rhythm. Respiratory: No deficits noted. Breath sounds are clear. Vital Signs: 13:34 BP 179 / 62; Pulse 71; Resp 20; Temp 98; Pulse Ox 97% ; Pain 10/10; mb8 13:54 BP 157 / 51; Pulse 66; Resp 16; Pulse Ox 99% ; mb8 14:29 BP 157 / 70; Pulse 65; Resp 18; Pulse Ox 99% ; mb8 Jason Coma Score: 14:26 Eye Response: spontaneous(4). Verbal Response: oriented(5). Motor Response: obeys rn commands(6). Total: 15. NIH Stroke Scale Scores: 14:01 NIHSS Score: 0 mb8 ED Course: 13:30 Patient arrived in ED. rn 13:30 Ty Walsh MD is Attending Physician. rn 13:33 Gurwinder James RN is Primary Nurse. mb8 13:35 Triage completed. mb8 13:36 Arm band placed on. mb8 13:38 Patient has correct armband on for positive identification. Placed in gown. Bed in low mb8 position. Call light in reach. Side rails up X2. Client placed on continuous cardiac and pulse oximetry monitoring. NIBP monitoring applied. database development project manager on. 13:38 No provider procedures requiring assistance completed. mb8 13:48 XRAY Chest (1 view) In Process Unspecified. EDMS 13:50 Inserted saline lock: 20 gauge in right antecubital area, using aseptic technique. mb8 Blood collected. 13:55 EKG done, by ED staff, reviewed by Ty Walsh MD. dh3 14:08 CT Head Brain wo Cont In Process Unspecified. EDMS 14:39 IV discontinued, intact, bleeding controlled, No redness/swelling at site. Pressure mb8 dressing applied. Administered Medications: 13:48 CANCELLED (Duplicate Order): morphine 2 mg IVP once over 4 mins rn 13:54 Drug: NS 0.9% 500 ml Route: IV; Rate: bolus; Site: right antecubital; mb8 14:25 Follow up: Response: No adverse reaction; IV Status: Completed infusion mb8 13:54 Drug: Demerol (meperidine) 25 mg Route: IVP; Site: right antecubital; mb8 14:25 Follow up: Response: No adverse reaction; Pain is decreased mb8 Medication: 13:37 VIS not applicable for this client. mb8 Outcome: 14:28 Discharge ordered by . rn 14:38 Discharged to home ambulatory. mb8 14:38 Condition: stable 14:38 Discharge instructions given to patient, Instructed on discharge instructions, follow up and referral plans. Demonstrated understanding of instructions, follow-up care. 14:39 Patient left the ED. mb8 NIH Stroke Scale - NIH Stroke Score Date: 07/07/2022 Time: 14:01 Total Score = 0 1a. Level of Consciousness (LOC) - 0(Alert) 1b. Level of Consciousness (LOC) (Month \T\ Age) - 0(Both) 1c. LOC Commands (Open \T\ Closes Eyes/Candy Bar Attendant) - 0(Both) 2. Best Gaze (Lateral Gaze Paresis) - 0(Normal) 3. Visual Field Loss - 0(No visual loss) 4. Facial Palsy - 0(Normal) 5a. Left Arm: Motor (10-second hold) - 0(No drift) 5b. Right Arm: Motor (10-second hold) - 0(No drift) 6a. Left Leg: Motor (5-second hold - always test supine) - 0(No drift) 6b. Right Leg: Motor (5-second hold - always test supine) - 0(No drift) 7. Limb Ataxia (finger/nose \T\ heel/up - test with eyes open) - 0(Absent) 8. Sensory Loss (pinprick arms/legs/face) - 0(Normal) 9. Best Language: Aphasia (description/naming/reading) - 0(No aphasia) 10. Dysarthria (speech clarity - read or repeat words) - 0(Normal) 11. Extinction and Inattention (visual/tactile/auditory/spatial/personal) - 0(No abnormality) Initials: mb8 Signatures: Dispatcher [employer] EDMS Ty Walsh MD MD rn Herrera, [facility] Gurwinder James RN RN mb8 Corrections: (The following items were deleted from the chart) 13:36 13:35 Allergies: Morphine (burning to IV site); mb8 mb8 13:41 13:35 Allergies: No Known Allergies; mb8 mb8
[2022-07-09 00:29] VITALS: TEMP 98
[2022-07-09 00:36] VITALS: BP 157/70; O2SAT 99
--- NOTE | 2022-07-09 14:11 | EKG ---
Test Date: 2022-07-07 Test Time: 13:49:06 Consulting Technical Manager: HARRIS MEASUREMENT RESULTS: Intervals: Rate: 70 [place]: 154 QRSD: 76 QT: 392 QTc: 423 [place]: P: 22 [place]: 154 QRS: 72 T: 57 INTERPRETIVE STATEMENTS: Normal sinus rhythm Normal ECG Compared to ECG 06/27/2022 08:38:28 Myocardial infarct finding no longer present Electronically Signed On 07-09-22 14:09:17 CDT by Arnaldo Tan
== END 2022-07-07 14:39 | disposition home or self-care (01) ==
LOC: ER 13:25
DX: R51.9 Headache, unspecified (principal); I10 Essential (primary) hypertension; Z88.5 Allergy status to narcotic agent
CPT/HCPCS: 96361; 93005; 85025; 80048; 36415; 84484; 83880; 70450; 71045; 96374; 99284; J2175; J7040

== ENCOUNTER 2023-02-28 13:59 | Emergency (ER) | payer OTHER ==
--- OUTSIDE RECORDS SUMMARY | 2023-02-28 14:09 | XMS REPORT | Continuity of Care Document ---
:1950 Author Organization [facility] t Address [address] [place] [address] [address] [place] [address] Care Team Providers Name Role Phone AMANDA CARMINE M Primary Care Physician Unavailable Amanda Carmine M Attending Clinician Unavailable JUAN GALLARDO Attending Clinician Unavailable ALDEN ISAACS Attending Clinician Unavailable Alden Isaacs MD Attending Clinician UTE YOST Attending Clinician Unavailable Cinthia Vincent Attending Clinician CINTHIA GARCIA Attending Clinician Unavailable Ute Yost MD Attending Clinician Carol Ann Beatty NP Attending Clinician Charlette Barber Attending Clinician Doctor Unassigned, [place] Attending Clinician Unavailable Juan Gallardo MD Attending Clinician [phone] Maribell Moe MD Attending Clinician Ige-Odjudit_J_AH Attending Clinician Unavailable YAMEL MONIQUE Attending Clinician Unavailable JUAN GALLARDO Admitting Clinician Unavailable ALDEN ISAACS Admitting Clinician Unavailable IgeOswaldoOdjudit_J_AH Admitting Clinician Unavailable YAMEL MONIQUE Admitting Clinician Unavailable Payers Payer Name Policy Type Policy Number Effective Date Expiration Date [id number] 2018 ALL 00:00:00 [employer] [id number] 2022spring 00:00:00 HUMANA MEDICARE C1 [id number] Common [facility] - [facility] HUMANA MEDICARE C1 [id number] [facility] - [facility] HUMANA MEDICARE C1 [id number] Common Sp ke[facility] - [facility] HUMANA MEDICARE C1 [id number] Common Sp keith - [facility] HUMANA GOLD PLS [id number] 2021 O 00:00:00 [facility] [place] [id number] 2019 [facility]00 (MEDICARE REPLACEMENT/ADV ANTAGE - HMO) Problems Condition Condition Condition Status Onset Resolution Last Treating Co mments Source Name Details Category Date Date Treatment Clinician Date Left Left Disease Active 2019-[address] [facility] carotid carotid 2-07 [facility] artery artery 00:00: Medical stenosis stenosis 00 Center S/P CABG x S/P CABG x Disease Active 2018-[address] 1 by 1 by 0-16 Reji Gallardo on [facility] on 00:00: Me dical 07/29/2019 07/29/2019 00 Ce nter Coronary Coronary Disease Active 2018-10 [facility] t artery artery 0-15 [facility] disease disease 00:00: Medical 00 Center Other Other Disease Active Overview: Univer s appendicit appendicit 6-06 Formattin ity of is is 00:00: g of this [place] 00 note Medical might be Branch different from the original. Added automatic ally from request for surgery [id number] HLD HLD Disease Active Univers (hyperlipi (hyperlipi 7- it y of demia) demia) 00:00: [place] [address] Medical Branch Abnormal Abnormal Disease Active Unive rs EKG EKG 04-18 ity of 00:00: [address] Acute Acute Disease Recurre [facility] respirator respirator nce Daniela kes y y Medical insufficie insufficie Ce nter ncy ncy Acute Acute Disease Active [facility] blood loss blood loss Daniela kes anemia anemia Medical Center Hyperglyce Hyperglyce Disease Active C HI [facility] Chronic Chronic Disease Active [facility] hypertensi hypertensi Daniela kes on on Medical Center Anemia of Anemia in Problem Com mon chronic chronic Spirit disorder illness - [facility] Anemia due Anemia, Problem Comm on to blood blood loss Spir it loss - [facility] Type II Diabetic Problem Common diabetes eye exam Spirit mellitus - [facility] [id number] Demand Problem Common ischemia Spirit - 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 abnormal [facility] [id number] Other Problem Common obesity Spirit due to - CHI excess [facility] [id number] Body mass Problem Com mon index Spirit [BMI] - [facility] 31.0-31.9, [facility] [id number] Mixed Problem Common hyperlipid Spirit emia - [facility] [id number] Stented Problem Commo n coronary Spirit artery - [facility] [id number] Essential Problem Comm on (primary) Spirit hypertensi - [facility] on [facility] [id number] Essen Problem Common hyperten Spirit preg-unsp - 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, [facility] [place] 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 - CHI thrombosis thrombosis [facility] cerebral unspecifie Medi albert arteries d Center posterior cerebral artery Angina Angina Problem Common pectoris pectoris, Spiri t unspecifie - [facility]I d [facility] Allergies, Adverse Reactions, Alerts Allergy Allergy Status Severity Reaction(s) Onset Inactive Treating Comm ents Source Name Type Date Date Clinician Morphine Propensi Active Other - See Burning Univers ty to comments 06-18 to skin ity of adverse 00:00: [place] reaction 00 Medical s Branch MORPHINE DRUG Active Other-Cmnt Univ ers INGREDI 06-18 ity of 00:00: [place] 00 [facility] Morphine Propensi Active 2019-[address] ty to 11-14 [facility] adverse 00:00: Medical reaction 00 Center s MORPHINE Allergy Active 2019-[address] 11-14 [facility] 00:00: Medical 00 Center NO KNOWN Drug Active Univers ALLERGIE Class ity of S [facility] morphine morphine Active [place] Common Spirit - [facility] NO KNOWN Allergy Active [facility] ALLERGIE S Family History Family Member Diagnosis Comments Start Date Stop Date Source Natural brother Heart attack [facility] Natural father Diabetes [facility] Natural father Heart disease [facility] Natural mother Diabetes [facility] Natural mother Heart attack [facility] Social History Social Habit Start Date Stop Date Quantity Comments Source History SDOH [facility] Alcohol Comment Medical C enter History SDOH [facility] Alcohol Std Medical Cente r Drinks History SDOH [facility] Alcohol Binge Medical Tina ter History of Common Spirit - Tobacco Use [facility] Exposure to 2023-02-09 2023-02-19 Not sure University SARS-CoV-2 00:00:00 15:54:[address] [facility] (event) [place] Alcohol intake 2020-10-03 2020-10-[address] Dhruv es 00:00:00 00:00:00 non-drinker of Medical Ce nter alcohol (finding) History SDOH 2019-07-29 2019-07-[address] [facility] Alcohol Frequency 00:00:00 00:00:00 [facility] Tobacco use and 2019-03-19 2019-03-19 Smokeless tobacco Un iversity of exposure 00:00:00 00:00:00 non-user [facility] Sex Assigned At [birth year] JEOVANY Bolaños 00:00:00 00:00:00 Medical Center Smoking Status Start Date Stop Date Source Never Smoker Common Spirit - [facility] Medications Ordered Filled Start Stop Current Ordering Indication Dosage Frequency Signature Comments Components Source Medication Medication Date Date Medication? Clinician (SIG) Name Name cefTRIAXone 2022- No 1000mg 1,000 mg, Univers (ROCEPHIN) 02-20 IV ity of 1,000 mg in 01:15: 01:44 Piggyback, [place] NaCl 0.9% 00 :00 ONCE, 1 Medical (NS) 100 mL dose, On [facility] MINI-BAG Sat02/19/23 at 2014, Administer over 30 Minutes, 100 mL
Reas on for Anti-Infec tive: Documented Infection< br>Documen zoë Infection Site: Urine<br&g t;Duration of Therapy: 7 days hydralAZINE 2022- No 10mg 10 mg, Uni vers (APRESOLINE 02-2010 Slow IV ity of ) injection 01:15: 01:16 [place] 10 mg 00 :00 ONCE, 1 Medical dose, On Branch Sat02/19/23 at 2014, JASON Nitrofurant 2022- Yes [id number] 100mg Take 1 Univers oin&Nit. 02-19 capsule by ity of [place] 00:[place] 04[place]59 [place] (MACROBID[place] 00 :00 the Medical 100 mg morning Branch capsule and 1 capsule in the evening. Do all this for 7 days. Amoxicillin Amoxicillin 2022- No 1{table BID Amoxicilli -Pot -Pot -11-25 t} n-Pot Clavulanate Clavulanate 00:00: 00:00 Clavulanat 875-125 MG 875-125 MG 00 :00 e 875-125 MG Amoxicillin Amoxicillin 2022- No 1{table BID Amoxicilli -Pot -Pot 11-15 t} n-Pot Clavulanate Clavulanate 00:00: 00:00 Clavulanat 875-125 MG 875-125 MG 00 :00 e 875-125 MG Amoxicillin Amoxicillin 2022- No 1{table BID Amoxicilli -Pot -Pot 2-02 -12 t} n-Pot Clavulanate Clavulanate 00:00: 00:00 Clavulanat 875-125 MG 875-125 MG 00 :00 e 875-125 MG ProAir HFA ProAir HFA No 2{puffs ProAir HFA 108 (90 108 (90 9-22 _as_nee 108 (90 Base) Base) 00:00: ded} Base) MCG/ACT MCG/ACT 00 MCG/ACT ProAir HFA ProAir HFA No 2{puffs ProAir HFA 108 (90 108 (90 9-22 _as_nee 108 (90 Base) Base) 00:00: ded} Base) MCG/ACT MCG/ACT 00 MCG/ACT ProAir HFA ProAir HFA No 2{puffs ProAir HFA 108 (90 108 (90 9-22 _as_nee 108 (90 Base) Base) 00:00: ded} Base) MCG/ACT MCG/ACT 00 MCG/ACT ProAir HFA ProAir HFA No 2{puffs ProAir HFA 108 (90 108 (90 9-22 _as_nee 108 (90 Base) Base) 00:00: ded} Base) MCG/ACT MCG/ACT 00 MCG/ACT ProAir HFA ProAir HFA No 2{puffs ProAir HFA 108 (90 108 (90 9-22 _as_nee 108 (90 Base) Base) 00:00: ded} Base) MCG/ACT MCG/ACT 00 MCG/ACT ProAir HFA ProAir HFA No 2{puffs ProAir HFA 108 (90 108 (90 9-22 _as_nee 108 (90 Base) Base) 00:00: ded} Base) MCG/ACT MCG/ACT 00 MCG/ACT ProAir HFA ProAir HFA No 2{puffs ProAir HFA 108 (90 108 (90 9-22 _as_nee 108 (90 Base) Base) 00:00: ded} Base) MCG/ACT MCG/ACT 00 MCG/ACT ProAir HFA ProAir HFA No 2{puffs ProAir HFA 108 (90 108 (90 9-22 _as_nee 108 (90 Base) Base) 00:00: ded} Base) MCG/ACT MCG/ACT 00 MCG/ACT Cetirizine Cetirizine 2020-10 No 1{table QD Cetirizine HCl 10 MG HCl 10 MG 0-13 t} HCl 10 MG 00:00: 00 ketorolac No 30mg 30 mg, Unive rs [...] 06-18 by mouth. ity of tablet 16:10: [address] metoprolol Yes 25mg Take 25 mg U nivers tartrate 06-18 by mouth. ity of mg tablet 16:10: [address] clopidogreL Yes 75mg Take 75 mg Univers 75 mg 06-18 by mouth. ity of tablet 16:10: [address] metoprolol Yes 25mg Take 25 mg U nivers tartrate 06-18 by mouth. ity of mg tablet 16:10: [address] clopidogreL Yes 75mg Take 75 mg Univers 75 mg 06-18 by mouth. ity of tablet 16:10: [address] metoprolol Yes 25mg Take 25 mg U nivers tartrate 25 06-18 by mouth. ity of mg tablet 16:10: [address] clopidogreL Yes 75mg Take 75 mg Univers 75 mg 06-18 by mouth. ity of tablet 16:10: [address] metoprolol Yes 25mg Take 25 mg U nivers tartrate 25 06-18 by mouth. ity of mg tablet 16:10: [address] clopidogreL Yes 75mg Take 75 mg Univers 75 mg 06-18 by mouth. ity of tablet 16:10: [address] metoprolol Yes 25mg Take 25 mg U nivers tartrate 06-18 by mouth. ity of mg tablet 16:10: [address] atorvastati 2020- No 80mg Take 80 mg Univers n 40 mg 06-18 by mouth. ity of tablet 16:10: 00:00 [place] 25 : [facility] metFORMIN 2020- No 850mg Take 850 Un zia 850 mg 06-18 mg by ity of tablet 16:10: 00:00 mouth. [place] : [facility] clopidogreL Yes 75mg Take 75 mg Univers 75 mg 06-18 by mouth. ity of tablet 11:10: [address] metoprolol Yes 25mg Take 25 mg U nivers tartrate 06-18 by mouth. ity of mg tablet 11:10: [address] traMADoL 50 2020- No 4647 50mg Take [...] days. Indication s: acute pain traMADoL 50 2020-2020- No 4647 50mg Take 1 Uni vers [...] days. Indication s: acute pain traMADoL 50 No 4647 50mg Take 1 Uni vers [...] 2-21 by mouth [facility] tablet 11:03: daily. [address] atorvastati 2019-10 Yes 80mg QD Take [address] n (LIPITOR) 2-21 by mouth Luke s 40 MG 11:03: daily . Medical tablet [address] [place] [address] metFORMIN 2019-10 Yes 850mg Take [address] (GLUCOPHAGE 2-21 mg by Lukes ) 850 MG 11:03: mouth 2 Medica l tablet 52 (two) Center times daily with breakfast and dinner. clopidogreL 2019-10 Yes 75mg QD Take [address] (PLAVIX) 75 2-21 by mouth Luke s mg tablet 11:03: daily. Medica l [address] [place] [address] metoprolol 2019-10 Yes 25mg Q.5D Take [address] tartrate 2-21 by mouth 2 [facility]ukes (LOPRESSOR) 11:03: (two) Medic al 25 MG 52 times Center tablet daily. aspirin 81 2019-10 Yes 81mg QD Take [address] MG EC 2-21 by mouth [facility]ukes tablet 11:03: daily. [address] atorvastati 2019-10 Yes 80mg QD Take [address] n (LIPITOR) 2-21 by mouth Luke s 40 MG 11:03: daily . Medical tablet [address] [place] [address] metFORMIN 2019-10 Yes 850mg Take [address] (GLUCOPHAGE 2-21 mg by [facility]ukes ) 850 MG 11:03: mouth 2 Medica l tablet 52 (two) Center times daily with breakfast and dinner. clopidogreL 2019-10 Yes 75mg QD Take [address] (PLAVIX) 75 2-21 by mouth Luke s mg tablet 11:03: daily. [address] metoprolol 2019-10 Yes 25mg Q.5D Take [address] tartrate 2-21 by mouth 2 [facility] (LOPRESSOR) 11:03: (two) Medic al 25 MG 52 times Center tablet daily. aspirin 81 2019-10 Yes 81mg QD Take [address] MG EC 2-21 by mouth Lukes tablet 11:03: daily. [address] atorvastati 2019-10 Yes 80mg QD Take [address] n (LIPITOR) 2-21 by mouth Luke s 40 MG 11:03: daily . Medical [address] metFORMIN 2019-10 Yes 850mg Take [address] (GLUCOPHAGE 2-21 mg by [facility]ukes ) 850 MG 11:03: mouth 2 Medica l tablet 52 (two) Center times daily with breakfast and dinner. clopidogreL 2019-10 Yes 75mg QD Take [address] (PLAVIX) 75 2-21 by mouth Luke s mg tablet 11:03: daily. [address] metoprolol 2019-10 Yes 25mg Q.5D Take [address] tartrate 2-21 by mouth 2 [facility] (LOPRESSOR) 11:03: (two) Medic al 25 MG 52 times Center tablet daily. aspirin 81 2019-10 Yes 81mg QD Take [address] MG EC 2-21 by mouth [facility]ukes tablet 11:03: daily. [address] atorvastati 2019-10 Yes 80mg QD Take [address] n (LIPITOR) 2-21 by mouth Luke s 40 MG 11:03: daily . Medical tablet [address] [place] [address] metFORMIN 2019-10 Yes 850mg Take [address] (GLUCOPHAGE 2-21 mg by Lukes ) 850 MG 11:03: mouth 2 Medica l tablet 52 (two) Center times daily with breakfast and dinner. clopidogreL 2019-10 Yes 75mg QD Take [address] (PLAVIX) 75 2-21 by mouth Luke s mg tablet 11:03: daily. [address] 2019-10 Yes 25mg Q.5D Take 25 mg [...] s mg tablet 11:03: daily. Medica l [address] [place] [address] metoprolol 2019-10 Yes 25mg Q.5D Take 25 [...] hours as needed for Pain. acetaminoph 2019-10 No 1{tbl} Take 1 C [...] MG tablet 00:00: daily. Medica l 00 Center citalopram 2019-10 Yes 20mg Take 20 mg U nivers 20 mg 0-14 by mouth. ity of tablet 00:00: [address] citalopram 2019-10 Yes 20mg Take 20 mg U nivers 20 mg 0-14 by mouth. ity of tablet 00:00: [address] citalopram 2019-10 Yes 20mg Take 20 mg U nivers 20 mg 0-14 by mouth. ity of tablet 00:00: [place] [facility] citalopram 2019-10 Yes 20mg Take 20 mg U nivers 20 mg 0-14 by mouth. ity of tablet 00:00: [place] [facility] citalopram 2019-10 Yes 20mg Take 20 mg U nivers 20 mg 0-14 by mouth. ity of tablet 00:00: [place] [facility] citalopram 2019-10 Yes 20mg Take 20 mg U nivers 20 mg 0-14 by mouth. ity of tablet 00:00: [address] citalopram 2019-10 Yes 20mg QD Take [address] (CeleXA) 20 0-14 by mouth Luke s MG tablet 00:00: daily. Medica l [address] [place] [address] citalopram 2019-10 Yes 20mg QD Take [address] (CeleXA) 20 0-14 by mouth Luke s MG tablet 00:00: daily. Medica l [place] citalopram 2019-10 Yes 20mg QD Take [address] (CeleXA) 20 0-14 by mouth Luke s MG tablet 00:00: daily. Medica l [place] citalopram 2019-10 Yes 20mg QD Take [address] (CeleXA) 20 0-14 by mouth Luke s MG tablet 00:00: daily. Medica l [address] [place] [address] metoprolol 2018-10 No 25mg Q.5D Take 1 [...] 00:00: daily . Medi albert MG tablet [address] [place] [address] amLODIPine Yes 5mg Take 1 Unive rs [...] due to financial issues atorvastati 2019-0 Yes [id number] 40mg Take 1 Univers n 40 mg [...] due to financial issues atorvastati 2019-0 Yes [id number] 40mg Take 1 Univers n 40 mg [...] a while due to financial issues lisinopril 2019 Yes 20mg Take 1 Unive rs 20 mg 6-24 tablet by ity of tablet 00:00: mouth 2 (two) Medical times Branch daily. Indication s: hasn't taken in a while due to financial issues atorvastati Yes [id number] 40mg Take 1 Univers n 40 mg 6-24 tablet by ity of tablet 00:00: mouth at [place] 00 bedtime. Medical Branch amLODIPine Yes 5mg Take 1 Unive rs 5 mg tablet 6-24 tablet by ity of 00:00: mouth [place] 00 daily. Medical Indication Branch s: hasn't taken in a while due to financial issues hydroCHLORO 2019 Yes 12.5mg Take 1 Un zia thiazide [...] while due to financial issues atorvastati Yes [id number] 40mg Take 1 Univers n 40 mg [...] while due to financial issues atorvastati Yes [id number] 40mg Take 1 Univers n 40 mg [...] due to financial issues atorvastati 2019-0 Yes [id number] 40mg Take 1 Univers n 40 mg [...] due to financial issues atorvastati 2019-0 Yes [id number] 40mg Take 1 Univers n 40 mg [...] while due to financial issues atorvastati Yes [id number] 40mg Take 1 Univers n 40 mg 6-24 tablet by ity of tablet 00:00: mouth at [place] 00 bedtime. Medical Branch lisinopril Yes 40mg QD Take [address] (PRINIVIL,Z 6-24 by mouth Luke s ESTRIL) 20 00:00: daily . Medi albert MG tablet 00 [place] lisinopril Yes 40mg QD Take [address] (PRINIVIL,Z 6-24 by mouth Luke s ESTRIL) 20 00:00: daily . Medi albert MG tablet 00 [place] lisinopril Yes 40mg QD Take [address] (PRINIVIL,Z 6-24 by mouth Luke s ESTRIL) 20 00:00: daily . Medi albert MG tablet 00 [place] lisinopril Yes 40mg QD Take [address] (PRINIVIL,Z 6-24 by mouth Luke s ESTRIL) 20 00:00: daily . Medi albert MG tablet 00 [place] traMADOL 50 Yes [id number] 50mg Take 1 Univers mg tablet 6-17 tablet by ity o f 00:00: mouth [place] 00 every 6 Medical (six) Branch hours as needed for Pain (scale 7-10). traMADOL 50 Yes [id number] 50mg Take 1 Univers mg tablet 6-17 tablet by ity o f 00:00: mouth [place] 00 every 6 Medical (six) Branch hours as needed for Pain (scale 7-10). traMADOL 50 Yes [id number] 50mg Take 1 Univers mg tablet 6-17 tablet by ity o f 00:00: mouth [place] 00 every 6 Medical (six) Branch hours as needed for Pain (scale 7-10). traMADOL 50 Yes [id number] 50mg Take 1 Univers mg tablet 6-17 tablet by ity o f 00:00: mouth [place] 00 every 6 Medical (six) Branch hours as needed for Pain (scale 7-10). traMADOL 50 2019-0 Yes [id number] 50mg Take 1 Univers mg tablet 6-17 tablet by ity o f 00:00: mouth [place] 00 every 6 Medical (six) Branch hours as needed for Pain (scale 7-10). traMADOL 50 2019-0 Yes [id number] 50mg Take 1 Univers mg tablet 6-17 tablet by ity o f 00:00: mouth [place] 00 every 6 Medical (six) Branch hours as needed for Pain (scale 7-10). traMADOL 50 2019-0 Yes [id number] 50mg Take 1 Univers mg tablet 6-17 tablet by ity o f 00:00: mouth [place] 00 every 6 Medical (six) Branch hours as needed for Pain (scale 7-10). traMADOL 50 2019-0 Yes [id number] 50mg Take 1 Univers mg tablet 6-17 tablet by ity o f 00:00: mouth [place] 00 every 6 Medical (six) Branch hours as needed for Pain (scale 7-10). metFORMIN 20190 Yes 500mg Take 500 Uni [...] mg by ity of ) 500 mg 09:51: mouth 2 [place] tablet 59 (two) Medical times Branch daily with meals. Indication s: hasn't taken in a while due to financial issues amoxicillin Yes [id number] 1{tbl} Take 1 Univers -clavulanat 6-13 tablet by ity of e 00:00: mouth 2 [place] (AUGMENTIN) 00 (two) Medical 875-125 mg times Branch per tablet daily. amoxicillin Yes [id number] 1{tbl} Take 1 Univers -clavulanat 6-13 tablet by ity of e 00:00: mouth 2 [place] (AUGMENTIN) 00 (two) Medical 875-125 mg times Branch per tablet daily. amoxicillin 2020- No [id number] 1{tbl} Take 1 Univers -clavulanat 6-13 09-05 tablet by it y of e 00:00: 00:00 mouth 2 [place] (AUGMENTIN) 00 :00 (two) Medical 875-125 mg times Branch per tablet daily. aspirin 81 Yes 81mg Take 1 Unive rs mg EC 7-06 tablet by ity of tablet 00:00: mouth [place] 00 daily. Medical Branch aspirin 81 2015-0 Yes 81mg Take 1 Unive rs mg EC 7-06 tablet by ity of tablet 00:00: mouth [place] 00 daily. Medical Branch aspirin 81 0 Yes 81mg Take 1 Unive rs mg EC 7-06 tablet by ity of tablet 00:00: mouth [place] 00 daily. Medical Branch aspirin 81 2015-0 Yes 81mg Take 1 Unive rs mg EC 7-06 tablet by ity of tablet 00:00: mouth [place] 00 daily. Medical Branch aspirin 81 2015-0 Yes 81mg Take 1 Unive rs mg EC 7-06 tablet by ity of tablet 00:00: mouth [place] 00 daily. Medical Branch aspirin 81 2015-0 Yes 81mg Take 1 Unive rs mg EC 7-06 tablet by ity of tablet 00:00: mouth [place] 00 daily. Medical Branch aspirin 81 2015-0 Yes 81mg Take 1 Unive rs mg EC 7-06 tablet by ity of tablet 00:00: mouth [place] 00 daily. Medical Branch aspirin 81 2015-0 Yes 81mg Take 1 Unive rs mg EC 7-06 tablet by ity of tablet 00:00: mouth [place] 00 daily. Medical Branch metFORMIN metFORMIN No 1{table BID metFORMIN HCl 850 MG HCl 850 MG t_with_ HCl 850 MG a_meal} No 1{table QD Aspir-81 MG MG t} [...] t_with_ Tartrate MG MG food} 50 MG No 1{table QD Aspir-81 MG MG t} [...] 40 MG 40 MG t} 40 MG Aspir-81 81 Aspir-81 81 No 1{table QD [...] 40 MG 40 MG t} 40 MG Aspir-81 81 Aspir-81 81 No 1{table QD [...] 40 MG 40 MG t} 40 MG Atorvastati Atorvastati No 1{table QD Atorvastat n Calcium n Calcium t} in Calcium 80 MG 80 MG 80 MG Aspir-81 81 Aspir-81 81 No 1{table QD Aspir-81 MG MG t} 81 MG Metoprolol Metoprolol No Metoprolol Succinate Succinate Succinate ER 25 MG ER 25 MG ER 25 MG Lisinopril Lisinopril No 1{table QD Lisinopril 40 MG 40 MG t} 40 MG metFORMIN metFORMIN No 1{table BID metFORMIN HCl 850 MG HCl 850 MG t_with_ HCl 850 MG a_meal} Lisinopril Lisinopril No 1{table QD 40 MG 40 MG t} Metoprolol Metoprolol No 1{table BID Tartrate 25 Tartrate 25 t_with_ MG MG food} Poly-Iron Poly-Iron No 1{capsu QD 150 150 MG 150 150 MG le} Atorvastati Atorvastati No 1{table QD n Calcium n Calcium t} 80 MG 80 MG Aspir-81 81 Aspir-81 81 No 1{table QD MG MG t} metFORMIN metFORMIN No 1{table BID HCl 850 MG HCl 850 MG t_with_ a_meal} Clopidogrel Clopidogrel No 1{table QD Bisulfate Bisulfate t} 75 MG 75 MG Lisinopril Lisinopril No 1{table QD Lisinopril 40 MG 40 MG t} 40 MG Metoprolol Metoprolol No 1{table BID Metoprolol Tartrate 25 Tartrate 25 t_with_ Tartrate MG MG food} 25 MG Poly-Iron Poly-Iron No 1{capsu QD Poly-Iron 150 150 MG 150 150 MG le} 150 150 MG Atorvastati Atorvastati No 1{table QD Atorvastat n Calcium n Calcium t} in Calcium 80 MG 80 MG 80 MG Aspir-81 81 Aspir-81 81 No 1{table QD Aspir-81 MG MG t} 81 MG metFORMIN metFORMIN No 1{table BID metFORMIN HCl 850 MG HCl 850 MG t_with_ HCl 850 MG a_meal} Clopidogrel Clopidogrel No 1{table QD Clopidogre Bisulfate Bisulfate t} l 75 MG 75 MG Bisulfate 75 MG Lisinopril Lisinopril No 1{table QD Lisinopril 40 MG 40 MG t} 40 MG Metoprolol Metoprolol No 1{table BID Metoprolol Tartrate 25 Tartrate 25 t_with_ Tartrate MG MG food} 25 MG Poly-Iron Poly-Iron No 1{capsu QD Poly-Iron 150 150 MG 150 150 MG le} 150 150 MG Atorvastati Atorvastati No 1{table QD Atorvastat n Calcium n Calcium t} in Calcium 80 MG 80 MG 80 MG Aspir-81 81 Aspir-81 81 No 1{table QD Aspir-81 MG MG t} 81 MG metFORMIN metFORMIN No 1{table BID metFORMIN HCl 850 MG HCl 850 MG t_with_ HCl 850 MG a_meal} Clopidogrel Clopidogrel No 1{table QD Clopidogre Bisulfate Bisulfate t} l 75 MG 75 MG Bisulfate 75 MG metFORMIN metFORMIN No 1{table BID metFORMIN HCl 850 MG HCl 850 MG t_with_ HCl 850 MG a_meal} Metoprolol Metoprolol No 1{table BID Metoprolol Tartrate 50 Tartrate 50 t_with_ Tartrate MG MG food} 50 MG Poly-Iron Poly-Iron No 1{capsu QD Poly-Iron 150 150 MG 150 150 MG le} 150 150 MG Lisinopril Lisinopril No 1{table QD Lisinopril 40 MG 40 MG t} 40 MG Aspir-81 81 Aspir-81 81 No 1{table QD Aspir-81 MG MG t} 81 MG Atorvastati Atorvastati No 1{table QD Atorvastat n Calcium n Calcium t} in Calcium 80 MG 80 MG 80 MG Cetirizine Cetirizine No 1{table QD Cetirizine HCl 10 MG HCl 10 MG t} HCl 10 MG Clopidogrel Clopidogrel No 1{table QD Clopidogre Bisulfate Bisulfate t} l 75 MG 75 MG Bisulfate 75 MG metFORMIN metFORMIN No 1{table BID metFORMIN HCl 850 MG HCl 850 MG t_with_ HCl 850 MG a_meal} Metoprolol Metoprolol No 1{table BID Metoprolol Tartrate 50 Tartrate 50 t_with_ Tartrate MG MG food} 50 MG Poly-Iron Poly-Iron No 1{capsu QD Poly-Iron 150 150 MG 150 150 MG le} 150 150 MG Lisinopril Lisinopril No 1{table QD Lisinopril 40 MG 40 MG t} 40 MG Aspir-81 81 Aspir-81 81 No 1{table QD Aspir-81 MG MG t} 81 MG Atorvastati Atorvastati No 1{table QD Atorvastat n Calcium n Calcium t} in Calcium 80 MG 80 MG 80 MG Cetirizine Cetirizine No 1{table QD Cetirizine HCl 10 MG HCl 10 MG t} HCl 10 MG Clopidogrel Clopidogrel No 1{table QD Clopidogre Bisulfate Bisulfate t} l 75 MG 75 MG Bisulfate 75 MG metFORMIN metFORMIN No 1{table BID metFORMIN HCl 850 MG HCl 850 MG t_with_ HCl 850 MG a_meal} Lisinopril Lisinopril No 1{table QD Lisinopril 40 MG 40 MG t} 40 MG Metoprolol Metoprolol No 1{table BID Metoprolol Tartrate 50 Tartrate 50 t_with_ Tartrate MG MG food} 50 MG Poly-Iron Poly-Iron No 1{capsu QD Poly-Iron 150 150 MG 150 150 MG le} 150 150 MG Clopidogrel Clopidogrel No 1{table QD Clopidogre Bisulfate Bisulfate t} l 75 MG 75 MG Bisulfate 75 MG Aspir-81 81 Aspir-81 81 No 1{table QD Aspir-81 MG MG t} 81 MG Atorvastati Atorvastati No 1{table QD Atorvastat n Calcium n Calcium t} in Calcium 80 MG 80 MG 80 MG Cetirizine Cetirizine No 1{table QD Cetirizine HCl 10 MG HCl 10 MG t} HCl 10 MG Metoprolol Metoprolol No Metoprolol Succinate Succinate Succinate ER 25 MG ER 25 MG ER 25 MG metFORMIN metFORMIN No 1{table BID metFORMIN HCl 850 MG HCl 850 MG t_with_ HCl 850 MG a_meal} Lisinopril Lisinopril No 1{table QD Lisinopril 40 MG 40 MG t} 40 MG Metoprolol Metoprolol No 1{table BID Metoprolol Tartrate 50 Tartrate 50 t_with_ Tartrate MG MG food} 50 MG Poly-Iron Poly-Iron No 1{capsu QD Poly-Iron 150 150 MG 150 150 MG le} 150 150 MG Clopidogrel Clopidogrel No 1{table QD Clopidogre Bisulfate Bisulfate t} l 75 MG 75 MG Bisulfate 75 MG Aspir-81 81 Aspir-81 81 No 1{table QD Aspir-81 MG MG t} 81 MG Atorvastati Atorvastati No 1{table QD Atorvastat n Calcium n Calcium t} in Calcium 80 MG 80 MG 80 MG Cetirizine Cetirizine No 1{table QD Cetirizine HCl 10 MG HCl 10 MG t} HCl 10 MG Metoprolol Metoprolol No Metoprolol Succinate Succinate Succinate ER 25 MG ER 25 MG ER 25 MG Atorvastati Atorvastati No 1{table QD Atorvastat n Calcium n Calcium t} in Calcium 80 MG 80 MG 80 MG Metoprolol Metoprolol No Metoprolol Succinate Succinate Succinate ER 25 MG ER 25 MG ER 25 MG Lisinopril Lisinopril No 1{table QD Lisinopril 40 MG 40 MG t} 40 MG Clopidogrel Clopidogrel No 1{table QD Clopidogre Bisulfate Bisulfate t} l 75 MG 75 MG Bisulfate 75 MG Cetirizine Cetirizine No 1{table QD Cetirizine HCl 10 MG HCl 10 MG t} HCl 10 MG Metoprolol Metoprolol No Metoprolol Tartrate 50 Tartrate 50 Tartrate MG MG 50 MG Aspir-81 81 Aspir-81 81 No 1{table QD Aspir-81 MG MG t} 81 MG metFORMIN metFORMIN No 1{table BID metFORMIN HCl 850 MG HCl 850 MG t_with_ HCl 850 MG a_meal} Metoprolol Metoprolol No 1{table BID Metoprolol Tartrate 50 Tartrate 50 t_with_ Tartrate MG MG food} 50 MG Poly-Iron Poly-Iron No 1{capsu QD Poly-Iron 150 150 MG 150 150 MG le} 150 150 MG Atorvastati Atorvastati No 1{table QD Atorvastat n Calcium n Calcium t} in Calcium 80 MG 80 MG 80 MG Metoprolol Metoprolol No Metoprolol Succinate Succinate Succinate ER 25 MG ER 25 MG ER 25 MG Lisinopril Lisinopril No 1{table QD Lisinopril 40 MG 40 MG t} 40 MG Clopidogrel Clopidogrel No 1{table QD Clopidogre Bisulfate Bisulfate t} l 75 MG 75 MG Bisulfate 75 MG Cetirizine Cetirizine No 1{table QD Cetirizine HCl 10 MG HCl 10 MG t} HCl 10 MG Metoprolol Metoprolol No Metoprolol Tartrate 50 Tartrate 50 Tartrate MG MG 50 MG Aspir-81 81 Aspir-81 81 No 1{table QD Aspir-81 MG MG t} 81 MG metFORMIN metFORMIN No 1{table BID metFORMIN HCl 850 MG HCl 850 MG t_with_ HCl 850 MG a_meal} Metoprolol Metoprolol No 1{table BID Metoprolol Tartrate 50 Tartrate 50 t_with_ Tartrate MG MG food} 50 MG Poly-Iron Poly-Iron No 1{capsu QD Poly-Iron 150 150 MG 150 150 MG le} 150 150 MG Atorvastati Atorvastati No 1{table QD Atorvastat n Calcium n Calcium t} in Calcium 80 MG 80 MG 80 MG Metoprolol Metoprolol No Metoprolol Succinate Succinate Succinate ER 25 MG ER 25 MG ER 25 MG Lisinopril Lisinopril No 1{table QD Lisinopril 40 MG 40 MG t} 40 MG Clopidogrel Clopidogrel No 1{table QD Clopidogre Bisulfate Bisulfate t} l 75 MG 75 MG Bisulfate 75 MG Cetirizine Cetirizine No 1{table QD Cetirizine HCl 10 MG HCl 10 MG t} HCl 10 MG Metoprolol Metoprolol No Metoprolol Tartrate 50 Tartrate 50 Tartrate MG MG 50 MG Aspir-81 81 Aspir-81 81 No 1{table QD Aspir-81 MG MG t} 81 MG metFORMIN metFORMIN No 1{table BID metFORMIN HCl 850 MG HCl 850 MG t_with_ HCl 850 MG a_meal} Metoprolol Metoprolol No 1{table BID Metoprolol Tartrate 50 Tartrate 50 t_with_ Tartrate MG MG food} 50 MG Poly-Iron Poly-Iron No 1{capsu QD Poly-Iron 150 150 MG 150 150 MG le} 150 150 MG Metoprolol Metoprolol No Metoprolol Succinate Succinate Succinate ER 25 MG ER 25 MG ER 25 MG Poly-Iron Poly-Iron No 1{capsu QD Poly-Iron 150 150 MG 150 150 MG le} 150 150 MG Lisinopril Lisinopril No 1{table QD Lisinopril 40 MG 40 MG t} 40 MG Metoprolol Metoprolol No 1{table BID Metoprolol Tartrate 50 Tartrate 50 t_with_ Tartrate MG MG food} 50 MG metFORMIN metFORMIN No 1{table BID metFORMIN HCl 850 MG HCl 850 MG t_with_ HCl 850 MG a_meal} Atorvastati Atorvastati No 1{table QD Atorvastat n Calcium n Calcium t} in Calcium 80 MG 80 MG 80 MG Metoprolol Metoprolol No Metoprolol Tartrate 50 Tartrate 50 Tartrate MG MG 50 MG Clopidogrel Clopidogrel No 1{table QD Clopidogre Bisulfate Bisulfate t} l 75 MG 75 MG Bisulfate 75 MG Aspir-81 81 Aspir-81 81 No 1{table QD Aspir-81 MG MG t} 81 MG Cetirizine Cetirizine No 1{table QD Cetirizine HCl 10 MG HCl 10 MG t} HCl 10 MG Aspir-81 81 Aspir-81 81 No 1{table QD [...] MG MG food} 50 MG Aspir-81 81 Aspir-81 81 No 1{table QD [...] 40 MG 40 MG t} 40 MG Aspir-81 81 Aspir-81 81 No 1{table QD [...] 40 MG 40 MG t} 40 MG Aspir-81 81 Aspir-81 81 No 1{table QD [...] 40 MG 40 MG t} 40 MG Metoprolol Metoprolol No Metoprolol Succinate Succinate Succinate ER 25 MG ER 25 MG ER 25 MG Aspir-81 81 Aspir-81 81 No 1{table QD Aspir-81 MG MG t} 81 MG Metoprolol Metoprolol No 1{table BID Metoprolol Tartrate 50 Tartrate 50 t_with_ Tartrate MG MG food} 50 MG ProAir HFA ProAir HFA No 2{puffs ProAir HFA 108 (90 108 (90 _as_nee 108 (90 Base) Base) ded} Base) MCG/ACT MCG/ACT MCG/ACT Atorvastati Atorvastati No 1{table QD Atorvastat n Calcium n Calcium t} in Calcium 80 MG 80 MG 80 MG Lisinopril Lisinopril No Lisinopril 40 MG 40 MG 40 MG metFORMIN metFORMIN No 1{table BID metFORMIN HCl 850 MG HCl 850 MG t_with_ HCl 850 MG a_meal} Cetirizine Cetirizine No 1{table QD Cetirizine HCl 10 MG HCl 10 MG t} HCl 10 MG Clopidogrel Clopidogrel No 1{table QD Clopidogre Bisulfate Bisulfate t} l 75 MG 75 MG Bisulfate 75 MG Metoprolol Metoprolol No Metoprolol Tartrate 50 Tartrate 50 Tartrate MG MG 50 MG Poly-Iron Poly-Iron No 1{capsu QD Poly-Iron 150 150 MG 150 150 MG le} 150 150 MG Lisinopril Lisinopril No 1{table QD Lisinopril 40 MG 40 MG t} 40 MG Victoza 18 Victoza 18 No QD Victoza 18 MG/3ML MG/3ML MG/3ML Metoprolol Metoprolol No Metoprolol Succinate Succinate Succinate ER 25 MG ER 25 MG ER 25 MG Aspir-81 81 Aspir-81 81 No 1{table QD Aspir-81 MG MG t} 81 MG Metoprolol Metoprolol No 1{table BID Metoprolol Tartrate 50 Tartrate 50 t_with_ Tartrate MG MG food} 50 MG ProAir HFA ProAir HFA No 2{puffs ProAir HFA 108 (90 108 (90 _as_nee 108 (90 Base) Base) ded} Base) MCG/ACT MCG/ACT MCG/ACT Atorvastati Atorvastati No 1{table QD Atorvastat n Calcium n Calcium t} in Calcium 80 MG 80 MG 80 MG Lisinopril Lisinopril No Lisinopril 40 MG 40 MG 40 MG metFORMIN metFORMIN No 1{table BID metFORMIN HCl 850 MG HCl 850 MG t_with_ HCl 850 MG a_meal} Cetirizine Cetirizine No 1{table QD Cetirizine HCl 10 MG HCl 10 MG t} HCl 10 MG Clopidogrel Clopidogrel No 1{table QD Clopidogre Bisulfate Bisulfate t} l 75 MG 75 MG Bisulfate 75 MG Metoprolol Metoprolol No Metoprolol Tartrate 50 Tartrate 50 Tartrate MG MG 50 MG Poly-Iron Poly-Iron No 1{capsu QD Poly-Iron 150 150 MG 150 150 MG le} 150 150 MG Lisinopril Lisinopril No 1{table QD Lisinopril 40 MG 40 MG t} 40 MG Victoza 18 Victoza 18 No QD Victoza 18 MG/3ML MG/3ML MG/3ML Metoprolol Metoprolol No Metoprolol Succinate Succinate Succinate ER 25 MG ER 25 MG ER 25 MG Aspir-81 81 Aspir-81 81 No 1{table QD Aspir-81 MG MG t} 81 MG Metoprolol Metoprolol No 1{table BID Metoprolol Tartrate 50 Tartrate 50 t_with_ Tartrate MG MG food} 50 MG ProAir HFA ProAir HFA No 2{puffs ProAir HFA 108 (90 108 (90 _as_nee 108 (90 Base) Base) ded} Base) MCG/ACT MCG/ACT MCG/ACT Atorvastati Atorvastati No 1{table QD Atorvastat n Calcium n Calcium t} in Calcium 80 MG 80 MG 80 MG Lisinopril Lisinopril No Lisinopril 40 MG 40 MG 40 MG metFORMIN metFORMIN No 1{table BID metFORMIN HCl 850 MG HCl 850 MG t_with_ HCl 850 MG a_meal} Cetirizine Cetirizine No 1{table QD Cetirizine HCl 10 MG HCl 10 MG t} HCl 10 MG Clopidogrel Clopidogrel No 1{table QD Clopidogre Bisulfate Bisulfate t} l 75 MG 75 MG Bisulfate 75 MG Metoprolol Metoprolol No Metoprolol Tartrate 50 Tartrate 50 Tartrate MG MG 50 MG Poly-Iron Poly-Iron No 1{capsu QD Poly-Iron 150 150 MG 150 150 MG le} 150 150 MG Lisinopril Lisinopril No 1{table QD Lisinopril 40 MG 40 MG t} 40 MG Victoza 18 Victoza 18 No QD Victoza 18 MG/3ML MG/3ML MG/3ML Metoprolol Metoprolol No Metoprolol Succinate Succinate Succinate ER 25 MG ER 25 MG ER 25 MG Aspir-81 81 Aspir-81 81 No 1{table QD Aspir-81 MG MG t} 81 MG Metoprolol Metoprolol No 1{table BID Metoprolol Tartrate 50 Tartrate 50 t_with_ Tartrate MG MG food} 50 MG ProAir HFA ProAir HFA No 2{puffs ProAir HFA 108 (90 108 (90 _as_nee 108 (90 Base) Base) ded} Base) MCG/ACT MCG/ACT MCG/ACT Atorvastati Atorvastati No 1{table QD Atorvastat n Calcium n Calcium t} in Calcium 80 MG 80 MG 80 MG Lisinopril Lisinopril No Lisinopril 40 MG 40 MG 40 MG metFORMIN metFORMIN No 1{table BID metFORMIN HCl 850 MG HCl 850 MG t_with_ HCl 850 MG a_meal} Cetirizine Cetirizine No 1{table QD Cetirizine HCl 10 MG HCl 10 MG t} HCl 10 MG Clopidogrel Clopidogrel No 1{table QD Clopidogre Bisulfate Bisulfate t} l 75 MG 75 MG Bisulfate 75 MG Metoprolol Metoprolol No Metoprolol Tartrate 50 Tartrate 50 Tartrate MG MG 50 MG Poly-Iron Poly-Iron No 1{capsu QD Poly-Iron 150 150 MG 150 150 MG le} 150 150 MG Lisinopril Lisinopril No 1{table QD Lisinopril 40 MG 40 MG t} 40 MG Victoza 18 Victoza 18 No QD Victoza 18 MG/3ML MG/3ML MG/3ML Metoprolol Metoprolol No Metoprolol Succinate Succinate Succinate ER 25 MG ER 25 MG ER 25 MG Aspir-81 81 Aspir-81 81 No 1{table QD Aspir-81 MG MG t} 81 MG Metoprolol Metoprolol No 1{table BID Metoprolol Tartrate 50 Tartrate 50 t_with_ Tartrate MG MG food} 50 MG ProAir HFA ProAir HFA No 2{puffs ProAir HFA 108 (90 108 (90 _as_nee 108 (90 Base) Base) ded} Base) MCG/ACT MCG/ACT MCG/ACT Atorvastati Atorvastati No 1{table QD Atorvastat n Calcium n Calcium t} in Calcium 80 MG 80 MG 80 MG Lisinopril Lisinopril No Lisinopril 40 MG 40 MG 40 MG metFORMIN metFORMIN No 1{table BID metFORMIN HCl 850 MG HCl 850 MG t_with_ HCl 850 MG a_meal} Cetirizine Cetirizine No 1{table QD Cetirizine HCl 10 MG HCl 10 MG t} HCl 10 MG Clopidogrel Clopidogrel No 1{table QD Clopidogre Bisulfate Bisulfate t} l 75 MG 75 MG Bisulfate 75 MG Metoprolol Metoprolol No Metoprolol Tartrate 50 Tartrate 50 Tartrate MG MG 50 MG Poly-Iron Poly-Iron No 1{capsu QD Poly-Iron 150 150 MG 150 150 MG le} 150 150 MG Lisinopril Lisinopril No 1{table QD Lisinopril 40 MG 40 MG t} 40 MG Victoza 18 Victoza 18 No QD Victoza 18 MG/3ML MG/3ML MG/3ML Metoprolol Metoprolol No Metoprolol Succinate Succinate Succinate ER 25 MG ER 25 MG ER 25 MG Aspir-81 81 Aspir-81 81 No 1{table QD Aspir-81 MG MG t} 81 MG Metoprolol Metoprolol No 1{table BID Metoprolol Tartrate 50 Tartrate 50 t_with_ Tartrate MG MG food} 50 MG ProAir HFA ProAir HFA No 2{puffs ProAir HFA 108 (90 108 (90 _as_nee 108 (90 Base) Base) ded} Base) MCG/ACT MCG/ACT MCG/ACT Atorvastati Atorvastati No 1{table QD Atorvastat n Calcium n Calcium t} in Calcium 80 MG 80 MG 80 MG Lisinopril Lisinopril No Lisinopril 40 MG 40 MG 40 MG metFORMIN metFORMIN No 1{table BID metFORMIN HCl 850 MG HCl 850 MG t_with_ HCl 850 MG a_meal} Cetirizine Cetirizine No 1{table QD Cetirizine HCl 10 MG HCl 10 MG t} HCl 10 MG Clopidogrel Clopidogrel No 1{table QD Clopidogre Bisulfate Bisulfate t} l 75 MG 75 MG Bisulfate 75 MG Metoprolol Metoprolol No Metoprolol Tartrate 50 Tartrate 50 Tartrate MG MG 50 MG Poly-Iron Poly-Iron No 1{capsu QD Poly-Iron 150 150 MG 150 150 MG le} 150 150 MG Lisinopril Lisinopril No 1{table QD Lisinopril 40 MG 40 MG t} 40 MG Victoza 18 Victoza 18 No QD Victoza 18 MG/3ML MG/3ML MG/3ML Lisinopril Lisinopril No 1{table QD Lisinopril 40 MG 40 MG t} 40 MG metFORMIN metFORMIN No 1{table BID metFORMIN HCl 850 MG HCl 850 MG t_with_ HCl 850 MG a_meal} Cetirizine Cetirizine No 1{table QD Cetirizine HCl 10 MG HCl 10 MG t} HCl 10 MG ProAir HFA ProAir HFA No 2{puffs ProAir HFA 108 (90 108 (90 _as_nee 108 (90 Base) Base) ded} Base) MCG/ACT MCG/ACT MCG/ACT Aspir-81 81 Aspir-81 81 No 1{table QD Aspir-81 MG MG t} 81 MG Victoza 18 Victoza 18 No QD Victoza 18 MG/3ML MG/3ML MG/3ML Metoprolol Metoprolol No Metoprolol Tartrate 50 Tartrate 50 Tartrate MG MG 50 MG Metoprolol Metoprolol No Metoprolol Succinate Succinate Succinate ER 25 MG ER 25 MG ER 25 MG Metoprolol Metoprolol No 1{table BID Metoprolol Tartrate 50 Tartrate 50 t_with_ Tartrate MG MG food} 50 MG Poly-Iron Poly-Iron No 1{capsu QD Poly-Iron 150 150 MG 150 150 MG le} 150 150 MG Clopidogrel Clopidogrel No 1{table QD Clopidogre Bisulfate Bisulfate t} l 75 MG 75 MG Bisulfate 75 MG Atorvastati Atorvastati No 1{table QD Atorvastat n Calcium n Calcium t} in Calcium 80 MG 80 MG 80 MG Lisinopril Lisinopril No 1{table QD Lisinopril 40 MG 40 MG t} 40 MG metFORMIN metFORMIN No 1{table BID metFORMIN HCl 850 MG HCl 850 MG t_with_ HCl 850 MG a_meal} Cetirizine Cetirizine No 1{table QD Cetirizine HCl 10 MG HCl 10 MG t} HCl 10 MG ProAir HFA ProAir HFA No 2{puffs ProAir HFA 108 (90 108 (90 _as_nee 108 (90 Base) Base) ded} Base) MCG/ACT MCG/ACT MCG/ACT Aspir-81 81 Aspir-81 81 No 1{table QD Aspir-81 MG MG t} 81 MG Victoza 18 Victoza 18 No QD Victoza 18 MG/3ML MG/3ML MG/3ML Metoprolol Metoprolol No Metoprolol Tartrate 50 Tartrate 50 Tartrate MG MG 50 MG Metoprolol Metoprolol No Metoprolol Succinate Succinate Succinate ER 25 MG ER 25 MG ER 25 MG Metoprolol Metoprolol No 1{table BID Metoprolol Tartrate 50 Tartrate 50 t_with_ Tartrate MG MG food} 50 MG Poly-Iron Poly-Iron No 1{capsu QD Poly-Iron 150 150 MG 150 150 MG le} 150 150 MG Clopidogrel Clopidogrel No 1{table QD Clopidogre Bisulfate Bisulfate t} l 75 MG 75 MG Bisulfate 75 MG Atorvastati Atorvastati No 1{table QD Atorvastat n Calcium n Calcium t} in Calcium 80 MG 80 MG 80 MG Atorvastati Atorvastati No 1{table QD Atorvastat n Calcium n Calcium t} in Calcium 80 MG 80 MG 80 MG metFORMIN metFORMIN No metFORMIN HCl 850 MG HCl 850 MG HCl 850 MG Clopidogrel Clopidogrel No 1{table QD Clopidogre Bisulfate Bisulfate t} l 75 MG 75 MG Bisulfate 75 MG ProAir HFA ProAir HFA No 2{puffs ProAir HFA 108 (90 108 (90 _as_nee 108 (90 Base) Base) ded} Base) MCG/ACT MCG/ACT MCG/ACT Metoprolol Metoprolol No 1{table BID Metoprolol Tartrate 50 Tartrate 50 t_with_ Tartrate MG MG food} 50 MG Metoprolol Metoprolol No Metoprolol Tartrate 50 Tartrate 50 Tartrate MG MG 50 MG Victoza 18 Victoza 18 No QD Victoza 18 MG/3ML MG/3ML MG/3ML Aspir-81 81 Aspir-81 81 No 1{table QD Aspir-81 MG MG t} 81 MG Metoprolol Metoprolol No Metoprolol Succinate Succinate Succinate ER 25 MG ER 25 MG ER 25 MG metFORMIN metFORMIN No 1{table BID metFORMIN HCl 850 MG HCl 850 MG t_with_ HCl 850 MG a_meal} Cetirizine Cetirizine No 1{table QD Cetirizine HCl 10 MG HCl 10 MG t} HCl 10 MG Lisinopril Lisinopril No 1{table QD Lisinopril 40 MG 40 MG t} 40 MG Poly-Iron Poly-Iron No 1{capsu QD Poly-Iron 150 150 MG 150 150 MG le} 150 150 MG Atorvastati Atorvastati No 1{table QD Atorvastat n Calcium n Calcium t} in Calcium 80 MG 80 MG 80 MG metFORMIN metFORMIN No metFORMIN HCl 850 MG HCl 850 MG HCl 850 MG Clopidogrel Clopidogrel No 1{table QD Clopidogre Bisulfate Bisulfate t} l 75 MG 75 MG Bisulfate 75 MG ProAir HFA ProAir HFA No 2{puffs ProAir HFA 108 (90 108 (90 _as_nee 108 (90 Base) Base) ded} Base) MCG/ACT MCG/ACT MCG/ACT Metoprolol Metoprolol No 1{table BID Metoprolol Tartrate 50 Tartrate 50 t_with_ Tartrate MG MG food} 50 MG Metoprolol Metoprolol No Metoprolol Tartrate 50 Tartrate 50 Tartrate MG MG 50 MG Victoza 18 Victoza 18 No QD Victoza 18 MG/3ML MG/3ML MG/3ML Aspir-81 81 Aspir-81 81 No 1{table QD Aspir-81 MG MG t} 81 MG Metoprolol Metoprolol No Metoprolol Succinate Succinate Succinate ER 25 MG ER 25 MG ER 25 MG metFORMIN metFORMIN No 1{table BID metFORMIN HCl 850 MG HCl 850 MG t_with_ HCl 850 MG a_meal} Cetirizine Cetirizine No 1{table QD Cetirizine HCl 10 MG HCl 10 MG t} HCl 10 MG Lisinopril Lisinopril No 1{table QD Lisinopril 40 MG 40 MG t} 40 MG Poly-Iron Poly-Iron No 1{capsu QD Poly-Iron 150 150 MG 150 150 MG le} 150 150 MG Atorvastati Atorvastati No 1{table QD Atorvastat n Calcium n Calcium t} in Calcium 80 MG 80 MG 80 MG metFORMIN metFORMIN No metFORMIN HCl 850 MG HCl 850 MG HCl 850 MG Clopidogrel Clopidogrel No 1{table QD Clopidogre Bisulfate Bisulfate t} l 75 MG 75 MG Bisulfate 75 MG ProAir HFA ProAir HFA No 2{puffs ProAir HFA 108 (90 108 (90 _as_nee 108 (90 Base) Base) ded} Base) MCG/ACT MCG/ACT MCG/ACT Metoprolol Metoprolol No 1{table BID Metoprolol Tartrate 50 Tartrate 50 t_with_ Tartrate MG MG food} 50 MG Metoprolol Metoprolol No Metoprolol Tartrate 50 Tartrate 50 Tartrate MG MG 50 MG Victoza 18 Victoza 18 No QD Victoza 18 MG/3ML MG/3ML MG/3ML Aspir-81 81 Aspir-81 81 No 1{table QD Aspir-81 MG MG t} 81 MG Metoprolol Metoprolol No Metoprolol Succinate Succinate Succinate ER 25 MG ER 25 MG ER 25 MG metFORMIN metFORMIN No 1{table BID metFORMIN HCl 850 MG HCl 850 MG t_with_ HCl 850 MG a_meal} Cetirizine Cetirizine No 1{table QD Cetirizine HCl 10 MG HCl 10 MG t} HCl 10 MG Lisinopril Lisinopril No 1{table QD Lisinopril 40 MG 40 MG t} 40 MG Poly-Iron Poly-Iron No 1{capsu QD Poly-Iron 150 150 MG 150 150 MG le} 150 150 MG Victoza 18 Victoza 18 No QD Victoza 18 MG/3ML MG/3ML MG/3ML metFORMIN metFORMIN No metFORMIN HCl 850 MG HCl 850 MG HCl 850 MG Clopidogrel Clopidogrel No 1{table QD Clopidogre Bisulfate Bisulfate t} l 75 MG 75 MG Bisulfate 75 MG ProAir HFA ProAir HFA No 2{puffs ProAir HFA 108 (90 108 (90 _as_nee 108 (90 Base) Base) ded} Base) MCG/ACT MCG/ACT MCG/ACT Metoprolol Metoprolol No 1{table BID Metoprolol Tartrate 50 Tartrate 50 t_with_ Tartrate MG MG food} 50 MG metFORMIN metFORMIN No 1{table BID metFORMIN HCl 850 MG HCl 850 MG t_with_ HCl 850 MG a_meal} Metoprolol Metoprolol No Metoprolol Tartrate 50 Tartrate 50 Tartrate MG MG 50 MG Lisinopril Lisinopril No 1{table QD Lisinopril 40 MG 40 MG t} 40 MG Poly-Iron Poly-Iron No 1{capsu QD Poly-Iron 150 150 MG 150 150 MG le} 150 150 MG Atorvastati Atorvastati No 1{table QD Atorvastat n Calcium n Calcium t} in Calcium 80 MG 80 MG 80 MG Aspir-81 81 Aspir-81 81 No 1{table QD Aspir-81 MG MG t} 81 MG Cetirizine Cetirizine No 1{table QD Cetirizine HCl 10 MG HCl 10 MG t} HCl 10 MG Metoprolol Metoprolol No Metoprolol Succinate Succinate Succinate ER 25 MG ER 25 MG ER 25 MG Poly-Iron Poly-Iron No 1{capsu QD Poly-Iron 150 150 MG 150 150 MG le} 150 150 MG Atorvastati Atorvastati No 1{table QD Atorvastat n Calcium n Calcium t} in Calcium 80 MG 80 MG 80 MG ProAir HFA ProAir HFA No 2{puffs ProAir HFA 108 (90 108 (90 _as_nee 108 (90 Base) Base) ded} Base) MCG/ACT MCG/ACT MCG/ACT Metoprolol Metoprolol No 1{table BID Metoprolol Tartrate 50 Tartrate 50 t_with_ Tartrate MG MG food} 50 MG Victoza 18 Victoza 18 No QD Victoza 18 MG/3ML MG/3ML MG/3ML Cetirizine Cetirizine No 1{table QD Cetirizine HCl 10 MG HCl 10 MG t} HCl 10 MG Clopidogrel Clopidogrel No 1{table QD Clopidogre Bisulfate Bisulfate t} l 75 MG 75 MG Bisulfate 75 MG Metoprolol Metoprolol No Metoprolol Tartrate 50 Tartrate 50 Tartrate MG MG 50 MG metFORMIN metFORMIN No 1{table BID metFORMIN HCl 850 MG HCl 850 MG t_with_ HCl 850 MG a_meal} Metoprolol Metoprolol No Metoprolol Succinate Succinate Succinate ER 25 MG ER 25 MG ER 25 MG Aspir-81 81 Aspir-81 81 No 1{table QD Aspir-81 MG MG t} 81 MG metFORMIN metFORMIN No metFORMIN HCl 850 MG HCl 850 MG HCl 850 MG Lisinopril Lisinopril No 1{table QD Lisinopril 40 MG 40 MG t} 40 MG Poly-Iron Poly-Iron No 1{capsu QD Poly-Iron 150 150 MG 150 150 MG le} 150 150 MG Atorvastati Atorvastati No 1{table QD Atorvastat n Calcium n Calcium t} in Calcium 80 MG 80 MG 80 MG ProAir HFA ProAir HFA No 2{puffs ProAir HFA 108 (90 108 (90 _as_nee 108 (90 Base) Base) ded} Base) MCG/ACT MCG/ACT MCG/ACT Metoprolol Metoprolol No 1{table BID Metoprolol Tartrate 50 Tartrate 50 t_with_ Tartrate MG MG food} 50 MG Victoza 18 Victoza 18 No QD Victoza 18 MG/3ML MG/3ML MG/3ML Cetirizine Cetirizine No 1{table QD Cetirizine HCl 10 MG HCl 10 MG t} HCl 10 MG Clopidogrel Clopidogrel No 1{table QD Clopidogre Bisulfate Bisulfate t} l 75 MG 75 MG Bisulfate 75 MG Metoprolol Metoprolol No Metoprolol Tartrate 50 Tartrate 50 Tartrate MG MG 50 MG metFORMIN metFORMIN No 1{table BID metFORMIN HCl 850 MG HCl 850 MG t_with_ HCl 850 MG a_meal} Metoprolol Metoprolol No Metoprolol Succinate Succinate Succinate ER 25 MG ER 25 MG ER 25 MG Aspir-81 81 Aspir-81 81 No 1{table QD Aspir-81 MG MG t} 81 MG metFORMIN metFORMIN No metFORMIN HCl 850 MG HCl 850 MG HCl 850 MG Lisinopril Lisinopril No 1{table QD Lisinopril 40 MG 40 MG t} 40 MG Poly-Iron Poly-Iron No 1{capsu QD Poly-Iron 150 150 MG 150 150 MG le} 150 150 MG Atorvastati Atorvastati No 1{table QD Atorvastat n Calcium n Calcium t} in Calcium 80 MG 80 MG 80 MG ProAir HFA ProAir HFA No 2{puffs ProAir HFA 108 (90 108 (90 _as_nee 108 (90 Base) Base) ded} Base) MCG/ACT MCG/ACT MCG/ACT Metoprolol Metoprolol No 1{table BID Metoprolol Tartrate 50 Tartrate 50 t_with_ Tartrate MG MG food} 50 MG Victoza 18 Victoza 18 No QD Victoza 18 MG/3ML MG/3ML MG/3ML Cetirizine Cetirizine No 1{table QD Cetirizine HCl 10 MG HCl 10 MG t} HCl 10 MG Clopidogrel Clopidogrel No 1{table QD Clopidogre Bisulfate Bisulfate t} l 75 MG 75 MG Bisulfate 75 MG Metoprolol Metoprolol No Metoprolol Tartrate 50 Tartrate 50 Tartrate MG MG 50 MG metFORMIN metFORMIN No 1{table BID metFORMIN HCl 850 MG HCl 850 MG t_with_ HCl 850 MG a_meal} Metoprolol Metoprolol No Metoprolol Succinate Succinate Succinate ER 25 MG ER 25 MG ER 25 MG Aspir-81 81 Aspir-81 81 No 1{table QD Aspir-81 MG MG t} 81 MG metFORMIN metFORMIN No metFORMIN HCl 850 MG HCl 850 MG HCl 850 MG Lisinopril Lisinopril No 1{table QD Lisinopril 40 MG 40 MG t} 40 MG Poly-Iron Poly-Iron No 1{capsu QD Poly-Iron 150 150 MG 150 150 MG le} 150 150 MG Atorvastati Atorvastati No 1{table QD Atorvastat n Calcium n Calcium t} in Calcium 80 MG 80 MG 80 MG ProAir HFA ProAir HFA No 2{puffs ProAir HFA 108 (90 108 (90 _as_nee 108 (90 Base) Base) ded} Base) MCG/ACT MCG/ACT MCG/ACT Aspir-81 81 Aspir-81 81 No 1{table QD Aspir-81 MG MG t} 81 MG Metoprolol Metoprolol No 1{table BID Metoprolol Tartrate 50 Tartrate 50 t_with_ Tartrate MG MG food} 50 MG Victoza 18 Victoza 18 No QD Victoza 18 MG/3ML MG/3ML MG/3ML Cetirizine Cetirizine No 1{table QD Cetirizine HCl 10 MG HCl 10 MG t} HCl 10 MG Clopidogrel Clopidogrel No 1{table QD Clopidogre Bisulfate Bisulfate t} l 75 MG 75 MG Bisulfate 75 MG Metoprolol Metoprolol No Metoprolol Tartrate 50 Tartrate 50 Tartrate MG MG 50 MG metFORMIN metFORMIN No 1{table BID metFORMIN HCl 850 MG HCl 850 MG t_with_ HCl 850 MG a_meal} Metoprolol Metoprolol No Metoprolol Succinate Succinate Succinate ER 25 MG ER 25 MG ER 25 MG Aspir-81 81 Aspir-81 81 No 1{table QD Aspir-81 MG MG t} 81 MG metFORMIN metFORMIN No metFORMIN HCl 850 MG HCl 850 MG HCl 850 MG Lisinopril Lisinopril No 1{table QD Lisinopril 40 MG 40 MG t} 40 MG Metoprolol Metoprolol No 1{table BID Metoprolol [...] 150 150 MG le} 150 150 MG Immunizations Ordered Immunization Filled Immunization Date Status Commen ts Source Name Name Prevnar 20 (PCV20) Prevnar 20 (PCV20) 2023-02-12 [facility]pleted [facility] - [facility] Prevnar 20 (PCV20) Prevnar 20 (PCV20) 2023-02-12 Completed [facility]:13:00 - [facility] Prevnar 20 (PCV20) Prevnar 20 (PCV20) 2023-02-12 Completed [facility] 17:13:00 - [facility] Prevnar 20 (PCV20) Prevnar 20 (PCV20) 2023-02-12 Completed [facility] 17:13:00 [facility] Vital Signs Vital Name Observation Time Observation Value Comments Source HEIGHT 2020-09-19 09:05:00 154.9 cm WEIGHT 2020-09-19 09:05:00 75.615 kg Systolic blood 2023-02-20 02:31:00 163 mm[Hg] [facility] Diastolic blood 2023-02-20 02:31:00 70 mm[Hg] Unive rsity [facility] Heart rate 2023-02-20 02:31:00 94 /min [facility] Respiratory rate 2023-02-20 02:31:00 22 /min [facility] Oxygen saturation in 2023-02-20 02:31:00 96 /min [facility] Arterial blood by [facility] Pulse oximetry [place] Body temperature 2023-02-19 20:52:00 37.11 [place] [facility] Body height 2023-02-19 20:52:00 154.9 cm [facility] Body weight 2023-02-19 20:52:00 76.658 kg [facility] BMI 2023-02-19 20:52:00 31.93 kg/m2 [facility] height 2022-11-15 15:20:00 61 [in_i] Common [facility] weight 2022-11-15 15:20:00 175.3 [lb_av] [facility] temperature 2022-11-15 15:20:00 96.8 [degF] [facility] bmi 2022-11-15 15:20:00 33.12 kg/m2 [facility] oximetry 2022-11-15 15:20:00 95 % Common [facility] respiratory rate 2022-11-15 15:20:00 17 /min [facility] blood pressure 2022-11-15 15:20:00 138 mm[Hg] [facility] blood pressure 2022-11-15 15:20:00 78 mm[Hg] [facility] - diastolic [facility] height 2022-10-19 15:20:00 61 [in_i] Common [facility] weight 2022-10-19 15:20:00 174.0 [lb_av] [facility] temperature 2022-10-19 15:20:00 97.4 [degF] Common [facility] bmi 2022-10-19 15:20:00 32.87 kg/m2 [facility] oximetry 2022-10-19 15:20:00 97 % Common [facility] respiratory rate 2022-10-19 15:20:00 18 /min Comm [facility] blood pressure 2022-10-19 15:20:00 138 mm[Hg] [facility] - systolic [facility] blood pressure 2022-10-19 15:20:00 70 mm[Hg] [facility] - diastolic [facility] height 2022-08-06 16:40:00 61 [in_i] Common [facility] weight 2022-08-06 16:40:00 167 [lb_av] Common [facility] temperature 2022-08-06 16:40:00 97.1 [degF] Common [facility] bmi 2022-08-06 16:40:00 31.55 kg/m2 [facility] oximetry 2022-08-06 16:40:00 98 % [facility] respiratory rate 2022-08-06 16:40:00 18 /min [facility] blood pressure 2022-08-06 16:40:00 148 mm[Hg] [facility] - systolic [facility] blood pressure 2022-08-06 16:40:00 78 mm[Hg] [facility] - diastolic [facility] height 2022-07-05 16:40:00 61 [in_i] [facility] weight 2022-07-05 16:40:00 169.0 [lb_av] [facility] temperature 2022-07-05 16:40:00 98.0 [degF] Common [facility] bmi 2022-07-05 16:40:00 31.93 kg/m2 [facility] oximetry 2022-07-05 16:40:00 96 % [facility] respiratory rate 2022-07-05 16:40:00 17 /min Comm [facility] blood pressure 2022-07-05 16:40:00 137 mm[Hg] [facility] blood pressure 2022-07-05 16:40:00 70 mm[Hg] Common [facility] diastolic [facility] height 2022-04-23 11:20:00 61 [in_i] Common [facility] weight 2022-04-23 11:20:00 165.3 [lb_av] Common [facility] temperature 2022-04-23 11:20:00 97.3 [degF] [facility] bmi 2022-04-23 11:20:00 31.23 kg/m2 [facility] oximetry 2022-04-23 11:20:00 96 % [facility] respiratory rate 2022-04-23 11:20:00 17 /min Comm on [facility] blood pressure 2022-04-23 11:20:00 138 mm[Hg] [facility] blood pressure 2022-04-23 11:20:00 77 mm[Hg] [facility] height 2022-01-04 13:50:00 61 [in_i] [facility] 2022-01-04 13:50:00 166.1 [lb_av] Common [facility] temperature 2022-01-04 13:50:00 97.5 [degF] [facility] bmi 2022-01-04 13:50:00 31.38 kg/m2 [facility] oximetry 2022-01-04 13:50:00 97 % [facility] respiratory rate 2022-01-04 13:50:00 16 /min Comm [facility] blood pressure 2022-01-04 13:50:00 142 mm[Hg] [facility] blood pressure 2022-01-04 13:50:00 75 mm[Hg] [facility] height 2022-01-04 14:00:00 61 [in_i] [facility] 2022-01-04 14:00:00 166.1 [lb_av] [facility] temperature 2022-01-04 14:00:00 97.5 [degF] [facility] bmi 2022-01-04 14:00:00 31.38 kg/m2 [facility] 2022-01-04 14:00:00 97 % [facility] respiratory rate 2022-01-04 14:00:00 16 /min [facility] blood pressure 2022-01-04 14:00:00 142 mm[Hg] [facility] blood pressure 2022-01-04 14:00:00 75 mm[Hg] [facility] - diastolic [facility] height 2021-09-28 09:30:00 61 [in_i] [facility] weight 2021-09-28 09:30:00 162.3 [lb_av] [facility] temperature 2021-09-28 09:30:00 97.5 [degF] Common [facility] bmi 2021-09-28 09:30:00 30.66 kg/m2 [facility] oximetry 2021-09-28 09:30:00 97 % [facility] respiratory rate 2021-09-28 09:30:00 16 /min [facility] blood pressure 2021-09-28 09:30:00 152 mm[Hg] [facility] blood pressure 2021-09-28 09:30:00 72 mm[Hg] [facility] height 2021-08-25 16:00:00 61 [in_i] [facility] weight 2021-08-25 16:00:00 167 [lb_av] [facility] temperature 2021-08-25 16:00:00 97.7 [degF] [facility] bmi 2021-08-25 16:00:00 31.55 kg/m2 [facility] oximetry 2021-08-25 16:00:00 96 % [facility] blood pressure 2021-08-25 16:00:00 140 mm[Hg] [facility] - systolic [facility] blood pressure 2021-08-25 16:00:00 78 mm[Hg] [facility] - diastolic [facility] height 2021-07-26 09:40:00 61 [in_i] [facility] weight 2021-07-26 09:40:00 164.4 [lb_av] Common [facility] temperature 2021-07-26 09:40:00 97.4 [degF] Common [facility] bmi 2021-07-26 09:40:00 31.06 kg/m2 [facility] oximetry 2021-07-26 09:40:00 97 % [facility] respiratory rate 2021-07-26 09:40:00 17 /min [facility] blood pressure 2021-07-26 09:40:00 139 mm[Hg] [facility] blood pressure 2021-07-26 09:40:00 72 mm[Hg] [facility] height 2021-06-28 08:50:00 61 [in_i] Common [facility] weight 2021-06-28 08:50:00 159.1 [lb_av] [facility] temperature 2021-06-28 08:50:00 97.2 [degF] [facility] bmi 2021-06-28 08:50:00 30.06 kg/m2 [facility] oximetry 2021-06-28 08:50:00 98 % [facility] respiratory rate 2021-06-28 08:50:00 18 /min Comm on [facility] blood pressure 2021-06-28 08:50:00 158 mm[Hg] [facility] blood pressure 2021-06-28 08:50:00 75 mm[Hg] [facility] Systolic blood 2021-06-20 20:23:00 148 mm[Hg] Univer sity of pressure [facility] Diastolic blood 2021-06-20 20:23:00 66 mm[Hg] Unive rsity of pressure [facility] Heart rate 2021-06-20 20:23:00 76 /min [facility] Body height 2021-06-20 20:23:00 154.9 cm [facility] Body weight 2021-06-20 20:23:00 74.844 kg [facility] BMI 2021-06-20 20:23:00 31.18 kg/m2 [facility] Systolic blood 2021-06-18 16:05:00 184 mm[Hg] Univer [facility]ity [facility] pressure [facility] Diastolic blood 2021-06-18 16:05:00 60 mm[Hg] Unive rsity of pressure [facility] Heart rate 2021-06-18 15:10:00 77 /min [facility] Body temperature 2021-06-18 15:10:00 37.44 [place] [facility] Respiratory rate 2021-06-18 15:10:00 20 /min [facility] Body height 2021-06-18 15:10:00 154.9 cm [facility] Body weight 2021-06-18 15:10:00 74.844 kg [facility] BMI 2021-06-18 15:10:00 31.18 kg/m2 [facility] Oxygen saturation in 2021-06-18 15:10:00 98 /min [facility] Arterial blood by [place] [employer] Pulse oximetry Branch Systolic blood 2021-06-18 16:05:00 184 mm[Hg] Univer sity [facility] pressure [facility] Diastolic blood 2021-06-18 16:05:00 60 mm[Hg] Unive rsity [facility] pressure [facility] Heart rate 2021-06-18 15:10:00 77 /min [facility] Body temperature 2021-06-18 15:10:00 37.44 [place] [facility] Respiratory rate 2021-06-18 15:10:00 20 /min [facility] Body height 2021-06-18 15:10:00 154.9 cm [facility] Body weight 2021-06-18 15:10:00 74.844 kg [facility] BMI 2021-06-18 15:10:00 31.18 kg/m2 [facility] Oxygen saturation in 2021-06-18 15:10:00 98 /min [facility] Arterial blood by [employer] Pulse oximetry Branch WEIGHT 2020-10-03 11:00:00 75.297 kg HEIGHT 2020-10-03 11:00:00 154.9 cm WEIGHT 2020-10-03 11:00:00 75.297 kg HEIGHT 2020-10-03 11:00:00 154.9 cm HEIGHT 2020-09-19 09:05:00 154.9 cm WEIGHT 2020-09-19 09:05:00 75.615 kg HEIGHT 2020-09-13 13:29:00 154.9 cm WEIGHT 2020-09-13 13:29:00 75.297 kg HEIGHT 2020-09-13 13:29:00 154.9 cm WEIGHT 2020-09-13 13:29:00 75.297 kg Systolic blood 2020-10-03 11:00:00 171 mm[Hg] [facility] Diastolic blood 2020-10-03 11:00:00 71 mm[Hg] [facility] Heart rate 2020-10-03 11:00:00 78 /min [facility] Body temperature 2020-10-03 11:00:00 37 [place] [facility] Respiratory rate 2020-10-03 11:00:00 18 /min [facility] Body height 2020-10-03 11:00:00 154.9 cm [facility] Body weight 2020-10-03 11:00:00 75.297 kg [facility] BMI 2020-10-03 11:00:00 31.37 kg/m2 [facility] Oxygen saturation in 2020-10-03 11:00:00 98 /min room air [facility] Arterial blood by Medical Ce nter Pulse oximetry Procedures Procedure Date / Time Performing Clinician Source Performed EKG-12 LEAD 2023-02-20 01:48:08 Alden Isaacs [facility] URINALYSIS 2023-02-20 00:24:00 Alden Isaacs [facility] LIPASE 2023-02-19 22:43:00 Alden Isaacs [facility] TROPONIN I 2023-02-19 22:43:00 Alden Isaacs [facility] COMP. METABOLIC PANEL 2023-02-19 22:43:00 Alden Isaacs [facility] ([id number]) [facility] Branch CBC WITH DIFF 2023-02-19 22:43:00 Alden Isaacs [place] [facility] N-TERMINAL PRO-BNP 2023-02-19 22:43:00 Alden Isaacs [facility] NOTICE OF PRIVACY 2023-02-19 22:08:23 Doctor Unassigned, No [facility] PRACTICES Name Medical Branch ASSIGNMENT OF BENEFITS 2023-02-19 22:07:28 Doctor Unassigned, No [facility] Name [facility] Branch CONSENT/REFUSAL FOR 2023-02-19 20:48:43 Doctor Unassigned, No [facility] DIAGNOSIS AND TREATMENT Name Medical Branch REFERRAL- 2021-04-06 05:01:00 Doctor Unassigned, No [facility] REQUEST/RESPONSE Name [facility] POCT-GLUCOSE METER 2020-09-20 11:36:00 Juan Gallardo [facility] POCT-GLUCOSE METER 2020-09-20 07:33:00 Juan Gallardo [facility] CBC W/PLT COUNT & AUTO 2020-09-20 00:18:00 [facility] METABOLIC PANEL 2020-09-20 00:18:00 Aron [facility] (7) [place] MAGNESIUM 2020-09-20 00:18:00 [facility] PHOSPHORUS 2020-09-20 00:18:00 [facility] CALCIUM, IONIZED 2020-09-20 00:18:00 [facility] TISSUE EXAM 2020-09-19 14:54:00 Juan Gallardo [facility] POCT-ACT 2020-09-19 14:15:00 Paulina [facility] POCT-ACT 2020-09-19 14:03:00 Juan Gallardo [facility] ENDARTERECTOMY,CAROTID 2020-09-19 12:52:00 Juan Gallardo [facility] PROTHROMBIN TIME/INR 2020-09-19 10:22:00 [facility] 2020-09-19 10:22:00 Vanessa Jasmine [facility] POCT-GLUCOSE METER 2020-09-19 09:06:00 Juan Gallardo [facility] CBC W/PLT COUNT & AUTO 2020-09-13 14:52:00 Juan Gallardo [facility] DIFFERENTIAL [facility] BASIC METABOLIC PANEL 2020-09-13 14:52:00 Juan Gallardo [facility] (7) [facility] PROTHROMBIN TIME/INR 2020-09-13 14:52:00 Juan Gallardo [facility] ABORH, MANUAL 2020-09-13 14:52:00 Juan Gallardo [facility] ECG 12-LEAD 2020-09-13 14:37:40 Unknown, Hl7 Doctor [facility] Plan of Care Planned Activity Planned Date Details Comments Source Future Scheduled 2023-06-[address] [facility] Test 00:00:00 (Season Ended) [code = [facility] INFLUENZA VACCINE (Season Ended)] Future Scheduled 2022-10-[address] [facility] Test 00:00:00 (12+) [code = Medical Center DEPRESSION SCREENING (12+)] Future Scheduled 2022-10-14 FALLS RISK SCREENING [facility] Test 00:00:00 [code = FALLS RISK Medical C enter SCREENING] Future Scheduled 2022-06-14 INFLUENZA VACCINE (#1) C [...] RISK Medical C enter SCREENING] Future Scheduled 2021-10-[address] [facility] Test 00:00:00 [facility] Scre[facility] (12+) [code = Tobacco Cessation Counseling and Screening (12+)] Future Scheduled 2020-10-14 DEPRESSION SCREENING CHI [...] breast Medical C enter (procedure) [code = 372380260] Future Scheduled 1951 Screening for malignant [facility] Test 00:00:00 neoplasm of colon Medical Ce nter (procedure) [code = 676259917] Future Scheduled 1951 Screening for malignant [facility] Test 00:00:00 neoplasm of breast Medical C enter (procedure) [code = 786946912] Future Scheduled 1951 CT Colonography (combo) [facility] Test 00:00:00 [code = CT Colonography [facility] (combo)] Future Scheduled 1951 Screening for malignant [facility] Test 00:00:00 neoplasm of colon Medical Ce nter (procedure) [code = 323348799] Future Scheduled 1951 Screening for malignant [facility] Test 00:00:00 neoplasm of colon Medical Ce nter (procedure) [code = 273158474] Future Scheduled 1951 DXA SCAN [code = DXA [facility] Test 00:00:00 SCAN] [facility] Future Scheduled 1951 Screening for malignant [facility] Test 00:00:00 neoplasm of colon Medical Ce nter (procedure) [code = 474965684] Future Scheduled 1951 Screening for malignant [facility] Test 00:00:00 neoplasm of colon Medical Ce nter (procedure) [code = 437673025] Future Scheduled 1950 Sigmoidoscopy [code [facility] S[facility]oidoscopy] [facility] Future Scheduled 1951 Screening for malignant [facility] Test 00:00:00 neoplasm of breast Medical C enter (procedure) [code = 077410691] Future Scheduled 1951 CT Colonography (combo) [facility] Test 00:00:00 [code = CT Colonography [facility] (combo)] Future Scheduled 1951 Screening for malignant [facility] Test 00:00:00 neoplasm of colon Medical Ce nter (procedure) [code = 004331384] Future Scheduled 1951 Screening for malignant [facility] Test 00:00:00 neoplasm of colon Medical Ce nter (procedure) [code = 339843501] Future Scheduled 1951 DXA SCAN [code = DXA [facility] Test 00:00:00 SCAN] [facility] Future Scheduled 1951 Screening for malignant [facility] Test 00:00:00 neoplasm of colon Medical Ce nter (procedure) [code = 333641616] Future Scheduled 1951 Screening for malignant [facility] Test 00:00:00 neoplasm of colon Medical Ce nter (procedure) [code = 305951312] Future Scheduled 1951 Sigmoidoscopy [facility]code [facility] Future Scheduled 1951 Screening for malignant [facility] Test 00:00:00 neoplasm of breast Medical C enter (procedure) [code = 690832028] Future Scheduled 1951 Screening for malignant [facility] Test 00:00:00 neoplasm of colon Medical Ce nter (procedure) [code = 675296844] Future Scheduled 1951 Screening for malignant [facility] Test 00:00:00 neoplasm of breast Medical C enter (procedure) [code = 291615792] Future Scheduled 1951 CT Colonography (combo) [facility] Test 00:00:00 [code = CT Colonography [facility] (combo)] Future Scheduled 1951 Screening for malignant [facility] Test 00:00:00 neoplasm of colon Medical Ce nter (procedure) [code = 755257561] Future Scheduled 1951 Screening for malignant [facility] Test 00:00:00 neoplasm of colon Medical Ce nter (procedure) [code = 576673209] Future Scheduled 1951 DXA SCAN [code = DXA [facility] Test 00:00:00 SCAN] [facility] Future Scheduled 1951 Screening for malignant [facility] Test 00:00:00 neoplasm of colon Medical Ce nter (procedure) [code = 188785863] Future Scheduled 1951 Screening for malignant [facility] Test 00:00:00 neoplasm of colon Medical Ce nter (procedure) [code = 394287524] Future Scheduled 1951 Sigmoidoscopy [facility]code [facility] S[facility]oscopy] Medical Cente r Encounters Start End Encounter Admission Attending Care Care Encounter Source Date/Time Date/Time Type Type Clinicians Facility Department ID 2022-11-14 Outpatient [place]o, [facility] [id number] Common 13:33:00 Carmine [id number] [facility] 2022-08-02 [facility] [id number] Common 11:32:02 Carmine 13003 [facility] 2022-04-23 [facility] [id number] Common 11:04:01 Carmine [facility] 2022-01-03 Outpatient Lao, [facility]LML[facility] [id number] Common 10:05:03 Carmine [facility] 2022-01-01 Outpatient Lao, STLMLC STLML[facility] [id number] Common 13:11:04 Carmine [facility] 2021-11-08 Outpatient Lao, STLMLC STLML[facility] [id number] Common 14:15:27 Carmine [id number] [facility] 2021-11-08 Outpatient Lao, STLML[facility] [id number] Common 14:10:48 Carmine 12968 [facility] 2021-11-08 Outpatient Lao, STLML[facility] [id number] Common 14:04:07 Carmine [id number] [facility] 2021-11-08 Outpatient STLMLC [facility] [id number] Common 13:49:07 [id number] [facility] 2021-08-14 Emergency [facility] [id number] Univers 20:32:56 [facility] [address] [facility] Surgery [id number] [facility] 18:22:15 JUAN 2023-02-19 2023-02-19 Emergency X [facility] ERT [id number] Univers 15:55:00 21:46:00 ALDEN [facility] 2023-02-19 2023-02-19 [facility] [id number] Univers 15:55:00 21:46:00 Alden BOWERS [id number] i ty [facility] [id number] [facility] [id number] [place] [address] Branch 2022-11-16 2022-11-16 (TEL) STLMLC STLMLC [id number] Co mmon 00:00:00 00:00:00 [facility] 2022-11-15 2022-11-15 OFFICE STLC STLC [id number] Co mmon 00:00:00 00:00:00 [facility]IT [facility] PT - CHI LEVEL 4 [facility] 2022-11-15 2022-11-15 (TEL) STLMLC STLMLC [id number] Co mmon 00:00:00 00:00:00 [facility] 2022-10-19 2022-10-19 OFFICE STLMLC STLMLC [id number] Co mmon 00:00:00 00:00:00 VISIT EST Spir it PT LEVEL 3 - CHI [facility] 2022-10-17 2022-10-17 (TEL) STLMLC STLMLC [id number] Co mmon 00:00:00 00:00:00 [facility] 2022-09-04 2022-09-04 (TEL) STLMLC STLMLC [id number] Co mmon 00:00:00 00:00:00 [facility] 2022-09-04 2022-09-04 (TEL) STLMLC STLMLC [id number] Co mmon 00:00:00 00:00:00 [facility] 2022-08-20 2022-08-20 (TEL) STLMLC STLMLC [id number] Co mmon 00:00:00 00:00:00 [facility] 2022-08-15 2022-08-15 (TEL) STLMLC STLMLC [id number] Co mmon 00:00:00 00:00:00 [facility] 2022-08-06 2022-08-06 OFFICE STLMLC STLMLC [id number] Co mmon 00:00:00 00:00:00 [facility] ESTAB PT - CHI LEVEL 4 [facility] 2022-08-06 2022-08-06 (TEL) STLMLC STLMLC [id number] Co mmon 00:00:00 00:00:00 [facility] 2022-07-17 2022-07-17 (TEL) STLMLC STLMLC [id number] Co mmon 00:00:00 00:00:00 [facility] 2022-07-10 2022-07-10 (TEL) STLMLC STLMLC [id number] Co mmon 00:00:00 00:00:00 [facility] 2022-07-05 2022-07-05 (TEL) STLMLC STLMLC [id number] Co mmon 00:00:00 00:00:00 [facility] 2022-07-05 2022-07-05 (HOSP F/U) STLMLC STLMLC [id number] Common 00:00:00 00:00:00 [facility] 2022-07-02 2022-07-02 (TEL) STLMLC STLMLC [id number] Co mmon 00:00:00 00:00:00 [facility] 2022-04-23 2022-04-23 OFFICE STLMLC STLMLC [id number] Co mmon 00:00:00 00:00:00 VISIT [facility] PT - CHI LEVEL 4 [facility] 2022-04-20 2022-04-20 (TEL) STLMLC STLMLC [id number] Co mmon 00:00:00 00:00:00 [facility] [facility] 2022-01-04 2022-01-04 OFFICE STLMLC STLMLC [id number] Co mmon 00:00:00 00:00:00 VISIT [facility] PT - [facility] 4 [facility] 2022-01-04 2022-01-04 SUB ANNUAL STLMLC STLMLC [id number] Common 00:00:00 00:00:00 [facility] VISIT [facility] 2021-12-21 2021-12-21 (TEL) STLMLC STLMLC [id number] Co mmon 00:00:00 00:00:00 [place] [facility] 2021-11-20 2021-11-20 (TEL) STLMLC STLMLC [id number] Co mmon 00:00:00 00:00:00 [place] [facility] 2021-10-30 2021-10-30 (TEL) STLMLC STLMLC [id number] Co mmon 00:00:00 00:00:00 [place] [facility] 2021-09-28 2021-09-28 OFFICE STLMLC STLMLC [id number] Co mmon 00:00:00 00:00:00 VISIT [facility] PT - CHI LEVEL 4 [facility] 2021-08-31 2021-08-31 (TEL) STLMLC STLMLC [id number] Co mmon 00:00:00 00:00:00 [place] [facility] 2021-08-25 2021-08-25 OFFICE STLMLC STLMLC [id number] Co mmon 00:00:00 00:00:00 VISIT EST Spir it PT LEVEL 3 - [facility] 2021-08-22 2021-08-22 (TEL) STLMLC STLMLC [id number] Co mmon 00:00:00 00:00:00 [place] [facility] 2021-08-07 2021-08-07 (TEL) STLMLC STLMLC [id number] Co mmon 00:00:00 00:00:00 [place] [facility] 2021-07-26 2021-07-26 OFFICE STLMLC STLMLC [id number] Co mmon 00:00:00 00:00:00 VISIT [facility] PT - CHI LEVEL 4 [facility] 2021-07-23 2021-07-23 (TEL) STLMLC STLMLC [id number] Co mmon 00:00:00 00:00:00 [place] [facility] 2021 2021 (TEL) STLMLC STLMLC [id number] Co mmon 00:00:00 00:00:00 [place] [facility] 2021-06-28 2021-06-28 (TEL) STLMLC STLMLC [id number] Co mmon 00:00:00 00:00:00 [place] [facility] 2021-06-28 2021-06-28 OFFICE STLMLC STLMLC [id number] Co mmon 00:00:00 00:00:00 VISIT NEW Spir it PT LEVEL 4 - [facility] 2021-06-26 2021-06-26 Outpatient Thomas [facility] [id number] Univers 13:45:00 13:45:00 UTE schulz [facility] 2021-06-20 2021-06-20 Office Radha [facility] [id number] Univers 15:14:01 15:29:01 Visit [facility] [id number] it y of [place] 4.2.7.2.686 Lorenzo as Yuri?Blea [phone] Oh jose felix 198 [facility] Office [facility] 2021-06-20 2021-06-20 [facility] [id number] Univers 15:00:00 15:00:00 CINTHIA ity of [facility] 2021-06-20 2021-06-20 [facility] [id number] Univers 00:00:00 00:00:00 [facility] [id number] it y of [place] 4.2.7.2.686 Lorenzo as Yuri?Blea [phone] Oh jose felix 198 [facility] 2021-06-19 2021-06-19 [facility]phone [facility] [id number] Univers 00:00:00 00:00:00 [facility] [id number] it y of [place] 4.2.7.2.686 Lorenzo as Yuri?Blea [phone] Oh jose felix [address] [place] [address] 2021-06-18 2021-06-18 Emergency [facility] [id number] Univers 10:12:00 11:17:00 Carol Ann G [place] [id number] ity of [place] 4.2.7.2.686 [facility] [phone] [address] 2021-06-18 2021-06-18 Emergency [facility] [id number] Univers 10:12:00 11:17:00 Carol Ann Melchor [place] [id number] ity of [place] 4.2.7.2.686 [phone] [address] 2021-04-26 2021-04-26 Letter ONEAL Barber [id number] Univers 00:00:00 00:00:00 (Out) Charlette GABRIEL 350.1.13.10 i ty of HOSPITAL 4.2.7.2.686 Lorenzo as [phone] [facility] [address] 2021-04-06 2021-04-06 Orders Doctor NO [id number] [id number] Univers 00:00:00 00:00:00 Only Unassigned, HARVEY 350.1.13.10 ity of [place] [facility] 4.2.7.2.686 Lorenzo as [phone] [facility] [address] 2020-10-03 2020-10-04 [facility] [id number] 10:58:57 06:55:34 Visit [facility] 2020-10-03 2020-10-03 [id number] [facility] 00:00:00 00:00:00 [facility] 2020-09-19 2020-09-20 Hospital [facility] [id number] 08:52:00 16:45:00 Encounter [facility] 2020-09-19 2020-09-19 [id number] 13:06:00 15:11:00 Event Maribell Yepez [facility] 2020-09-19 2020-09-19 [facility] [id number] 11:00:00 14:00:00 [facility] 2020-09-16 2020-09-16 Abstract [facility] [id number] 00:00:00 00:00:00 [facility] 2020-09-13 2020-09-[address] [facility] [id number] 14:23:27 14:53:27 Visit [facility] 2020-09-13 2020-09-13 Outpatient HUSSEIN [facility]KE [facility] [id number] SLE 14:23:27 14:23:27 [facility] 2020-09-13 2020-09-[address] [facility] [id number] 00:00:00 00:00:00 Only [facility] 2019-12-02 2019-12-02 [id number] 07:29:00 07:29:00 __ [id number] [facility] Pract[facility] e Results Test Description Test Time Test Comments Results Result Comments Source TROPONIN I 2023-02-19 23:50:59 Test Item Value Reference Range Interpretation Comme nts TROPONIN I (test code = 5550943924) 0.002 ng/mL <=0.034 GABRIELA (test code = GABRIELA) Reference (Normal) Range (defined by the 99th percentile reference limit): <= 0.034 ng/mL Note: Cardiac troponin begins to rise 3-4 hours after the onset of ischemia. Repeat in 4-6 hours if the sample was drawn within 3-4 hours of the onset of the symptom and found normal. Diagnosis of myocardial injury is made with acute changes in cTn concentrations with at least one serial sample above the 99th percentile upper reference limit (URL), taken together with the patient's clinical presentation. Biotin has been reported to cause a negative bias, interpret results relative to patient's use of biotin. Lab Interpretation (test code = Normal 63642-2) [id number] 23:47:38 Test Item Value Reference Range Interpretation Comments NT-proBNP (test code = 81 pg/mL <=125 [id number]) GABRIELA (test code = GABRIELA) Biotin has been reported to cause a negative bias, interpret results relative to patient's use of biotin. Lab Interpretation (test Normal code = 88424-8) [facility] ([id number])2023-02-19 23:41:37 Test Item Value Reference Range Interpretation Comments NA (test code = 137 mmol/L 135-145 8531821333) K (test code = 4.3 mmol/L 3.5-5.0 4604173102) CL (test code = 100 mmol/L 98-108 2516517556) CO2 TOTAL (test code = 27 mmol/L 23-31 1354460940) AGAP (test code = 10 2-16 4227996575) BUN (test code = 14 mg/dL 7-23 5442122005) GLUCOSE (test code = 196 mg/dL 70-110 H 6375662148) CREATININE (test code = 0.65 mg/dL 0.50-1.04 1310331552) TOTAL BILI (test code = 1.0 mg/dL 0.1-1.7 9010666516) CALCIUM (test code = 8.9 mg/dL 8.6-10.6 6979728794) T PROTEIN (test code = 7.9 g/dL 6.3-8.2 4549816718) ALBUMIN (test code = 3.8 g/dL 3.5-5.0 1504125745) ALK PHOS (test code = 89 U/L 34-122 4541284280) ALTv (test code = 33 U/L 5-35 2-6) AST(SGOT) (test code = 39 U/L 13-40 1054187418) eGFR (test code = 89.9 mL/min/1.73m2 1443896363) GABRIELA (test code = GABRIELA) Association of Glomerular Filtration Rate (GFR) and Staging of Kidney Disease* + --+ --+ ------+| GFR (mL/min/1.73 m2) ?| With Kidney Damage ?| ?Without Kidney Damage+ --------+ --------+ +| ?>90 ?| ?Stage one ?| ? Normal ?+ ---+ ---+ -------+| ?60-89 ?| ?Stage two ?| ? Decreased GFR ? + --+ --+ ------+| ?30-59 ?| ?Stage three ?| ? Stage three ? + --+ --+ ------+| ?15-29 ?| ?Stage four ? | ? Stage four ?+ ---+ ---+ -------+| ?<15 (or dialysis) ? ?| ?Stage five ? | ? Stage five ?+ ---+ ---+ -------+ *Each stage assumes the associated GFR level has been in effect for at least three months. ?Stages 1 to 5, with or without kidney disease, indicate chronic kidney disease. Notes: Determination of stages one and two (with eGFR >59mL/min/1.73 m2) requires estimation of kidney damage for at least three months as defined by structural or functional abnormalities of the kidney, manifested by either:Pathological abnormalities or Markers of kidney damage (including abnormalities in the composition of the blood or urine or abnormalities in imaging tests). Lab Interpretation Abnormal (test code = 41679-5) [facility] 23:41:37 Test Item Value Reference Range Interpretation Comments LIPASE (test code = 1898430684) 111 U/L 0-220 Lab Interpretation (test code = Normal 80903-9) [facility] WITH [id number] 23:32:16 Test Item Value Reference Range Interpretation Comments WBC (test code = 12.07 See_Comment H [Automated 6690-2) message] The sy stem which generated this result transmitted reference range : 4.30 - 11.10 10*3/?L. The reference range was not used to interpret this result as normal/abnormal . RBC (test code = 4.49 See_Comment [Automated 789-8) message] The sy stem which generated this result transmitted reference range : 3.93 - 5.25 10*6/?L. The reference range was not used to interpret this result as normal/abnormal . HGB (test code = 15.0 g/dL 11.6-15.0 718-7) HCT (test code = 45.5 % 35.7-45.2 H 4544-3) MCV (test code = 101.3 fL 80.6-95.5 H 787-2) MCH (test code = 33.4 pg 25.9-32.8 H 785-6) MCHC (test code = 33.0 g/dL 31.6-35.1 786-4) RDW-SD (test code = 48.6 fL 39.0-49.9 67419-7) RDW-CV (test code = 12.9 % 12.0-15.5 788-0) PLT (test code = 236 See_Comment [Automated 777-3) message] The sy stem which generated this result transmitted reference range : 166 - 358 10*3/ ?L. The reference r rita was not used to interpret this result as normal/abnormal . MPV (test code = 10.9 fL 9.5-12.9 98761-6) NRBC/100 WBC (test 0.0 See_Comment [Automat ed code = 8836635088) message] The system which generated this result transmitted reference range : 0.0 - 10.0 /100 WBCs. The refer ence range was not u sed to interpret th is result as normal/abnormal . NRBC x10^3 (test code See_Comment [Auto mated = 8213956251) message] The s [employer] which generated this result transmitted reference range : 10*3/?L. The reference range was not used to interpret this result as normal/abnormal . GRAN MAT (NEUT) % 66.4 % (test code = 770-8) IMM GRAN % (test code 0.50 % = 1871041817) LYMPH % (test code = 22.9 % 736-9) MONO % (test code = 7.9 % 5905-5) EOS % (test code = 1.6 % 713-8) BASO % (test code = 0.7 % 706-2) GRAN MAT x10^3(ANC) 8.03 10*3/uL 1.88-7.09 H (test code = 3887391156) IMM GRAN x10^3 (test 0.06 10*3/uL 0.00-0.06 code = 7246334675) LYMPH x10^3 (test code 2.76 10*3/uL 1.32-3.29 = 731-0) MONO x10^3 (test code 0.95 10*3/uL 0.33-0.92 H = 742-7) EOS x10^3 (test code = 0.19 10*3/uL 0.03-0.39 711-2) BASO x10^3 (test code 0.08 10*3/uL 0.01-0.07 H = 704-7) Lab Interpretation Abnormal (test code = 80169-3) [facility], TIBC AND FERRITIN [id number] 00:00:00 Test Item Value Reference Range Interpretation Comments % SATURATION (test 5 % (calc) See_Comment L [Automat ed message] code = 2502-3) The system [facility] generated this result transmit zoë reference range : 16-45 % (calc). The reference range was not used to interpret this result as normal/abnormal . FERRITIN (test code 4 ng/mL See_Comment L [Automa zoë message] = 7146-4) The system [facility] generated this result transmit zoë reference range : 16-288 ng/mL. T he reference range was not used to interpret this result as normal/abnormal . IRON BINDING 415 mcg/dL See_Comment N [Automated mes imani] CAPACITY (test code (calc) The syst em which = 2500-7) generated this result transmit zoë reference range : 250-450 mcg/dL (calc). The reference range was not used to interpret this result as normal/abnormal . IRON, TOTAL (test 19 mcg/dL See_Comment L [Automate d message] code = 2498-4) The system ich generated this result transmit zoë reference range : 45-160 mcg/dL. The reference range was not used to interpret this result as normal/abnormal . CBC (INCLUDES DIFF/PLT)2021-07-22 00:00:00 Test Item Value Reference Range Interpretation Comments ABSOLUTE BASOPHILS 90 cells/uL See_Comment N [Automat ed message] (test code = 704-7) The syst em which generated this result transmit zoë reference range : 0-200 cells/uL. The reference range was not used to interpret this result as normal/abnormal . ABSOLUTE EOSINOPHILS 600 cells/uL See_Comment H [Autom ated message] (test code = 711-2) The syst em which generated this result transmit zoë reference range : 15-500 cells/uL . The reference range was not used to interpret this result as normal/abnormal . ABSOLUTE LYMPHOCYTES 2540 cells/uL See_Comment N [Auto mated message] (test code = 731-0) The syst em which generated this result transmit zoë reference range : 850-3900 cells/ uL. The reference r rita was not used to interpret this result as normal/abnormal . ABSOLUTE MONOCYTES 860 cells/uL See_Comment N [Automat ed message] (test code = 742-7) The syst em which generated this result transmit zoë reference range : 200-950 cells/u L. The reference r rita was not used to interpret this result as normal/abnormal . ABSOLUTE NEUTROPHILS 5910 cells/uL See_Comment N [Auto mated message] (test code = 751-8) The syst em which generated this result transmit zoë reference range : 2356-0680 cells /uL. The reference r rita was not used to interpret this result as normal/abnormal . BASOPHILS (test code 0.9 % N = 706-2) EOSINOPHILS (test 6.0 % N code = 713-8) HEMATOCRIT (test 26.5 % See_Comment L [Automated message] code = 4544-3) The system [facility] generated this result transmit zoë reference range : 35.0-45.0 %. Th e reference range was not used to interpret this result as normal/abnormal . HEMOGLOBIN (test 7.6 g/dL See_Comment L [Automated message] code = 718-7) The system [facility] generated this result transmit zoë reference range : 11.7-15.5 g/dL. The reference range was not used to interpret this result as normal/abnormal . LYMPHOCYTES (test 25.4 % N code = 736-9) MCH (test code = 23.2 pg See_Comment L [Automated message] 785-6) The system [facility] generated this result transmit zoë reference range : 27.0-33.0 pg. T he reference range was not used to interpret this result as normal/abnormal . MCHC (test code = 28.7 g/dL See_Comment L [Automate d message] 786-4) The system [facility] generated this result transmit zoë reference range : 32.0-36.0 g/dL. The reference range was not used to interpret this result as normal/abnormal . MCV (test code = 81.0 fL See_Comment N [Automated message] 787-2) The system [facility] generated this result transmit zoë reference range : 80.0-100.0 fL. The reference range was not used to interpret this result as normal/abnormal . MONOCYTES (test code 8.6 % N = 5905-5) MPV (test code = 9.6 fL See_Comment N [Automated message] 776-5) The system [facility] generated this result transmit zoë reference range : 7.5-12.5 fL. Th e reference range was not used to interpret this result as normal/abnormal . NEUTROPHILS (test 59.1 % N code = 770-8) PLATELET COUNT (test 321 See_Comment N [Autom ated message] code = 777-3) Thousand/uL The system [facility] generated this result transmit zoë reference range : 140-400 Thousan d/uL. The reference r rita was not used to interpret this result as normal/abnormal . RDW (test code = 14.7 % See_Comment N [Automated message] 788-0) The system whic h generated this result transmit zoë reference range : 11.0-15.0 %. Th e reference range was not used to interpret this result as normal/abnormal . RED BLOOD CELL COUNT 3.27 See_Comment L [Autom ated message] (test code = 789-8) Million/uL The syst em which generated this result transmit zoë reference range : 3.80-5.10 Million/uL. The reference range was not used to interpret this result as normal/abnormal . WHITE BLOOD CELL 10.0 See_Comment N [Automated message] COUNT (test code = Thousand/uL The syste m which 6690-2) generated this result transmit zoë reference range : 3.8-10.8 Thousand/uL. Th e reference range was not used to interpret this result as normal/abnormal . PATHOLOGY [id number] 00:00:00PATHOLOGISTCONSULT, SPECIMEN A 2021-07-22 00:00:00A COMMENTA DIAGNOSISA MICRO DESCRIPTIONA SOURCELipid Panel With LDL/HDL [id number] 00:00:00 Test Item Value Reference Range Interpretation Comments Cholesterol, Total 188 mg/dL See_Comment [Automat ed message] (test code = 2093-3) The s tem which generated this result transmitted ref erence range: 100-199 mg/dL. The reference r rita was not used to interpret this result as normal/abnor mal. HDL Cholesterol (test 52 mg/dL See_Comment [Auto mated message] code = 2085-9) The system [facility] generated this result transmitted ref erence range: >39 mg/d L. The reference range was not used to int erpret this result as normal/abnormal . Triglycerides (test 85 mg/dL See_Comment [Automa zoë message] code = 2571-8) The system [facility] generated this result transmitted ref erence range: 0-149 mg /dL. The reference r rita was not used to interpret this result as normal/abnor mal. Microalbumin/Creat Ratio, Random [id number] 00:00:00 Test Item Value Reference Range Interpretation Comments Creatinine, Urine 103.2 mg/dL Not Estab. mg/dL (test code = 2161-8) Alb/Creat Ratio 28 mg/g creat See_Comment [Automated message] (test code = The system [employer] 69772-8) generated this result transmitted ref erence range: 0-29 mg/ g creat. The refe rence range was not u sed to interpret this result as normal/abnor mal. Albumin, Urine 29.2 ug/mL Not Estab. ug/mL (test code = 85866-1) Hemoglobin [id number] 00:00:00 Test Item Value Reference Range Interpretation Comments Hemoglobin A1c (test 7.9 % See_Comment H [Autom ated message] The code = 4548-4) system which generated this result tra nsmitted reference range : 4.8-5.6 %. The referenc e range was not used to interpret this result as normal/abnormal . Comp. Metabolic Panel (14) ([facility])2021-07-19 00:00:00 Test Item Value Reference Range Interpretation Comments A/G Ratio (test code 0.9 1.2-2.2 L = 1759-0) Albumin (test code = 3.6 g/dL See_Comment L [Autom ated message] 1751-7) The system [employer] generated this result transmit zoë reference range : 3.8-4.8 g/dL. T he reference range was not used to interpret this result as normal/abnormal . Alkaline Phosphatase 106 IU/L See_Comment [Autom ated message] (test code = 6768-6) The [employer] tem which generated this result transmit zoë reference range : 44-121 IU/L. Th e reference range was not used to interpret this result as normal/abnormal . ALT (SGPT) (test 12 IU/L See_Comment [Automated message] code = 1742-6) The system [employer] generated this result transmit zoë reference range : 0-32 IU/L. The reference range was not used to interpret this result as normal/abnormal . AST (SGOT) (test 12 IU/L See_Comment [Automated message] code = 1920-8) The system [employer] generated this result transmit zoë reference range : 0-40 IU/L. The reference range was not used to interpret this result as normal/abnormal . Bilirubin, Total 0.3 mg/dL See_Comment [Automated message] (test code = 1975-2) The sys tem which generated this result transmit zoë reference range : 0.0-1.2 mg/dL. The reference range was not used to interpret this result as normal/abnormal . BUN (test code = 12 mg/dL See_Comment [Automated message] 3094-0) The system [employer] generated this result transmit zoë reference range : 8-27 mg/dL. The reference range was not used to interpret this result as normal/abnormal . BUN/Creatinine Ratio 21 12-28 (test code = 3097-3) Calcium (test code = 8.6 mg/dL See_Comment L [Autom ated message] 36966-5) The system [facility] generated this result transmit zoë reference range : 8.7-10.3 mg/dL. The reference range was not used to interpret this result as normal/abnormal . Carbon Dioxide, 26 mmol/L See_Comment [Automated message] Total (test code = The syste m which 2028-06) generated this result transmit zoë reference range : 20-29 mmol/L. T he reference range was not used to interpret this result as normal/abnormal . Chloride (test code 105 mmol/L See_Comment [Automa zoë message] = 2074-0) The system [employer] generated this result transmit zoë reference range : 96-106 mmol/L. The reference range was not used to interpret this result as normal/abnormal . Creatinine (test 0.57 mg/dL See_Comment [Automated message] code = 2160-0) The system [facility] generated this result transmit zoë reference range : 0.57-1.00 mg/dL . The reference range was not used to interpret this result as normal/abnormal . eGFR If Africn Am 109 See_Comment [Automate d message] (test code = mL/min/1.73 The system [employer] 40080-1) generated this result transmit zoë reference range : >59 mL/min/1.73. Th e reference range was not used to interpret this result as normal/abnormal . eGFR If NonAfricn Am 95 mL/min/1.73 See_Comment [Aut omated message] (test code = The system [employer] 82710-6) generated this result transmit zoë reference range : >59 mL/min/1.73. Th e reference range was not used to interpret this result as normal/abnormal . Globulin, Total 3.9 g/dL See_Comment [Automated message] (test code = The system [facility] 96304-0) generated this result transmit zoë reference range : 1.5-4.5 g/dL. T he reference range was not used to interpret this result as normal/abnormal . Glucose (test code = 162 mg/dL See_Comment H [Autom ated message] 9825-7) The system [facility] generated this result transmit zoë reference range : 65-99 mg/dL. Th e reference range was not used to interpret this result as normal/abnormal . Potassium (test code 4.2 mmol/L See_Comment [Autom ated message] = 2823-3) The system [facility] generated this result transmit zoë reference range : 3.5-5.2 mmol/L. The reference range was not used to interpret this result as normal/abnormal . Protein, Total (test 7.5 g/dL See_Comment [Autom ated message] code = 2885-2) The system [facility] generated this result transmit zoë reference range : 6.0-8.5 g/dL. T he reference range was not used to interpret this result as normal/abnormal . Sodium (test code = 140 mmol/L See_Comment [Automa zoë message] 7121-2) The system [facility] generated this result transmit zoë reference range : 134-144 mmol/L. The reference range was not used to interpret this result as normal/abnormal . Uric Acid, [id number] 00:00:00 Test Item Value Reference Range Interpretation Comments Uric Acid (test 3.8 mg/dL See_Comment [Automated message] The code = 3084-1) system which generated this result tra nsmitted reference range : 3.0-7.2 mg/dL. The refe rence range was not u sed to interpret this result as normal/abnormal . CBC With Differential/[id number] 00:00:00 Test Item Value Reference Range Interpretation Comments Baso (Absolute) (test 0.1 x10E3/uL See_Comment [Auto mated code = 704-7) message] The s ystem which generated this result transmitted reference range : 0.0-0.2 x10E3/u L. The reference r rita was not used to interpret this result as normal/abnormal . Basos (test code = 1 % Not Estab. % 706-2) Eos (test code = 7 % Not Estab. % 713-8) Eos (Absolute) (test 0.7 x10E3/uL See_Comment H [Autom ated code = 711-2) message] The s ystem which generated this result transmitted reference range : 0.0-0.4 x10E3/u L. The reference r rita was not used to interpret this result as normal/abnormal . Hematocrit (test code 27.2 % See_Comment L [Auto mated = 4544-3) message] The sy stem which generated this result transmitted reference range : 34.0-46.6 %. Th e reference range was not used to interpret this result as normal/abnormal . Hematology Comments: (test code = 74987-4) Hemoglobin (test code 7.9 g/dL See_Comment L [Auto mated = 718-7) message] The sy stem which generated this result transmitted reference range : 11.1-15.9 g/dL. The reference range was not used to interpret this result as normal/abnormal . Immature Cells (test code = UNLOINC) Immature Grans (Abs) 0.0 x10E3/uL See_Comment [Autom ated (test code = 69280-0) messag e] The system which generated this result transmitted reference range : 0.0-0.1 x10E3/u L. The reference r rita was not used to interpret this result as normal/abnormal . Immature Granulocytes 0 % Not Estab. % (test code = 87958-9) Lymphs (test code = 27 % Not Estab. % 736-9) Lymphs (Absolute) 2.6 x10E3/uL See_Comment [Automate d (test code = 731-0) message] The system which generated this result transmitted reference range : 0.7-3.1 x10E3/u L. The reference r rita was not used to interpret this result as normal/abnormal . MCH (test code = 23.4 pg See_Comment L [Automated 785-6) message] The sy stem which generated this result transmitted reference range : 26.6-33.0 pg. T he reference range was not used to interpret this result as normal/abnormal . MCHC (test code = 29.0 g/dL See_Comment L [Automate d 786-4) message] The sy stem which generated this result transmitted reference range : 31.5-35.7 g/dL. The reference range was not used to interpret this result as normal/abnormal . MCV (test code = 81 fL See_Comment [Automated 787-2) message] The sy stem which generated this result transmitted reference range : 79-97 fL. The reference range was not used to interpret this result as normal/abnormal . Monocytes (test code 6 % Not Estab. % = 5905-5) Monocytes(Absolute) 0.6 x10E3/uL See_Comment [Automa zoë (test code = 742-7) message] The system which generated this result transmitted reference range : 0.1-0.9 x10E3/u L. The reference r rita was not used to interpret this result as normal/abnormal . Neutrophils (test 59 % Not Estab. % code = 770-8) Neutrophils 5.7 x10E3/uL See_Comment [Automated (Absolute) (test code messag e] The system = 751-8) which generated this result transmitted reference range : 1.4-7.0 x10E3/u L. The reference r rita was not used to interpret this result as normal/abnormal . NRBC (test code = 06485-9) Platelets (test code 319 x10E3/uL See_Comment [Autom ated = 777-3) message] The sy stem which generated this result transmitted reference range : 150-450 x10E3/u L. The reference r rita was not used to interpret this result as normal/abnormal . RBC (test code = 3.38 x10E6/uL See_Comment L [Automate d 789-8) message] The sy stem which generated this result transmitted reference range : 3.77-5.28 x10E6 /uL. The reference r rita was not used to interpret this result as normal/abnormal . RDW (test code = 15.1 % See_Comment [Automated 788-0) message] The sy stem which generated this result transmitted reference range : 11.7-15.4 %. Th e reference range was not used to interpret this result as normal/abnormal . WBC (test code = 9.6 x10E3/uL See_Comment [Automated 6690-2) message] The sy stem which generated this result transmitted reference range : 3.4-10.8 x10E3/ uL. The reference r rita was not used to interpret this result as normal/abnormal . TSH reflex to [id number] 00:00:00 Test Item Value Reference Range Interpretation Comments TSH (test code = 1.260 uIU/mL See_Comment [Automated message] The 91831-8) system which ge nerated this result tra nsmitted reference range : 0.450-4.500 uIU /mL. The reference range was not used to interpr et this result as normal/abnormal . Tissue [id number] 18:50:00 Test Item Value Reference Range Interpretation Comments Case Report (test code Surgical Pathology = 104) Report Case: [id number] Authorizing Provider: Juan Gallardo, Collected: 09/19/2020 02:54 PM Ordering Location: [facility] Received: 09/19/2020 03:32 PM PERIOPERATIVE SERVICES Pathologist: Jarad Menchaca MD Specimen: Plaque, LEFT CAROTID ARTERY PLAQUE DIAGNOSIS (test code = z5ewdLAcEAXkk8xkNWZdmAR 3220) uZzEwMzNcZnRuYmpcdWMxIH tccnRmMVxlcGljOTIwMFxhb uSzNYCgaOTlK1TcaqzyEKhr UT9wHZ7ocKbooCPveGDqQFV qWwFvy3pjo141gCYet4uoBC TZkfucyLu0rLwkW89bw0F5J ldnR98xcQGdMZfyfWJzdmbe czIwIEFSVEVSWSwgTEVGVCB DQVJPVElELCBFTkRBUlRFUk OQVI8XORscaMYuOYSZCVZBU foZRPYDCQKON8UFOHQKT0XZ JvKDYYGAKUYuPSEuuw42SBP 3GpGxh9Y1UZT8JCQhXANgq2 lcZGVmbGFuZzEwMzNcZnRuY zepnKCbCOBrYqDxa9fqa550 oECjk0fgGSZgSfA6dQNrBCN sjKKjH274TORqAZtwp1owa9 YeAXEmkITdq3R2ILBYnvqlw Bv9qBmbX56mr3X2PzudU2tw ZVYxBVQyC9PoYD6hTPUdFvw 9OUR2FBZ1ARUmFONqE8EsSH 3sWJPlrDMfHJc6h1zqrNlkG UDqOPS5o2xbIZgtzdPmFM4m wj7apCn7b1svtvWrTLHtBXW pfYBRJXEiL6FkhYayEs7dkU v0sRbqUbadJKG3Jfm0ZI0qz t58nmu4qZjfIRVuteqzIlF7 ZQvlYEKfomseUKa5BBneCDW ppZE1YIYyrLQdN8OhVOEwGQ 0oxjk7VJZ2OUwtHHJtLnR7B KLamYEqAYNltBdqJFyuc082 BXB9RbRuPK9yR0Yqh0X7qE0 maXRcZGVmdGFiNzIwXGZvcm 6diGUzPXjay8UxAND4cpQ7z FQavIHbFXRnZaS7IImyQJ3i su88CLQqWRA9ps4chIEieNy vihGgeDEyLFivZ3NwAOWpe9 44CIZaS1PpRKUcx6S7kuKeC vYdFXXxdPH1fsS8TQOeYW7j krsga2lbXBusGPkgZXGqvxQ 3lsE6AWKaqEPfW2LaaO2xKC MnGZ4vwyzpn0kxSBS1MXnkL NHpTGX8PeAiIYCyw2Kjqtu3 UsLzw6ShoBErCZeqY98uo45 9GRVbrtDlH0rawRWueesjpG XszpqhLVucacK3FMSyPSqib xrtGUCuIMtjD3xbUkTbASWs lEniGDvsi5EjTCJaJUQiUsQ jrFPcIELbMci9DQXtaGGcGR IwDlSfY3cewklaWlWVREYoz 0bgX4hzgSDIeWOhM1VcGHki zoXdHXrvXJbcBTIyHYW3TV7 7QnsgDKKvxl13 CPT Code(s) (test code z4czoNRqZLRomFU1IaJsNPM = 3357) ge5dmv8QnkGEsqYWeNYlyrT HnliPhbr30cNQ1uN69CE9tE AEcHoK9GAAnavP4Bsv1OSGl HRNccCAuC065p6xbe3pqwdR gbVB1bHvpPOTcPELfJSlkWZ NfMuFlOWkaVZN0WAh0OdTvL HBhcn0= CLINICAL HISTORY (test e1zhxOYgFKPbhJO5ZtHlVNY code = 3356) lt1jcv4DoiUOhfYArGPrevC BkbnYwuj50dNN8mN11KO8xL CZmEmX9ZWNxayM1Eky0KPSs XHAicTEqF874t2box6znerX wdEW1lIzbGWPnANMqQApxAZ PgBlOkQGXwn3ErPAfzL12ov 2lzOiAgbGVmdCBjYXJvdGlk FYQ2LN7vu8zaQIOmwn9= SPECIMEN SOURCE (test i7acbKDuRCTkcVJ0SuJiKIH code = 3377) wa7ntr9VxuUYoyOJzAUknoJ YwgyZuci02aAA7vY21LN9iI OHyToI9PDGsmeJ7Gkt4TAIn ENQpgATcD156n9lud4krlqQ abMZ4kGfqZLThPZSoKEmrBI ZzMjAgUGxhcXVlIFxwYXJ9 GROSS DESCRIPTION v9argPWyGPAwdIZ5JvPrGKV (test code = 3366) er8obk1WaiMHtrITgDVhfpK AwzeRwig55nZL6yG45YK0jV RQjThU3AJQmnzW1Tea1SJAx HULtdRHuH942d4bld4uyrlH quFD6cMztURJrMXTcRDnbJW QjAuQcHlNkXSs8XAYkAwYaq 6mesUOmQFblAGT9dROvSVNq YSKaNNBcXV22I6TikiLjCAn fMVLlYQArhX3eZJ76tYIsal XrozCzTgFbCHP6FNnetDRza CBjYXJvdGlkIGFydGVyeSBw wFGdfUXhITdwMPLiVy9qWIt oHl9bPHFnLZymawRtkPqwbw RskvWuxIMgpICzEhP9XYiyj 3cgcGxhcXVlIHRoYXQgZGlz qVbnwZNeH7LwV8rhrEDpfMx vlj6zQUjeSFMeONGfvLKrMA osRSBfdsonfGn2EEOpA3Lcs 63yCLD4qqGsXCQuRWpvDVT1 VUevz9lgsP4hi0eanuDlyLF hY2XyG0vdgIPnTGPqgwXpsf 4gVGhlIHNwZWNpbWVuIGlzI WG6Ww7wrWDaDPLipxJebOEj AX88jAUadFpfQw0nxH60zG3 rLWHfK4NnX8tkoREgsGweop GhvgPUBW9uENwPH7KkPRwiO XJ9 MICROSCOPIC p7ibaGCiSGBrvQZ3ClQqVJT DESCRIPTION (test code vu1als5CooATanHUyBXbvgM = 3371) FqakZrub32eXT7cR46GN3yL JLwKsA3ISTbhjW7Yvc7HXLa GAFyjKRdN657a8imo4qihfG keRE1yMkcTHObKCDlTZomPO AaHgRjXOSjSl4hhLNwLOHra n0= [facility] [id number] 18:50:00 Test Item Value Reference Range Interpretation Comments Case Report (test code Surgical Pathology = 104) Report Case: [id number] Authorizing Provider: Juan Gallardo, Collected: 09/19/2020 02:54 PM Ordering Location: [facility] Received: 09/19/2020 03:32 PM PERIOPERATIVE SERVICES Pathologist: Jarad Menchaca MD Specimen: Plaque, LEFT CAROTID ARTERY PLAQUE DIAGNOSIS (test code = v2vqyRNfEJHbt7tcSOWwhAV 3220) uZzEwMzNcZnRuYmpcdWMxIH tccnRmMVxlcGljOTIwMFxhb zLhNMOgvRAsK8YourkdDYaw DT6hFK5ihFthgQCkrLZiSVD dPhCyh2dfq788aHIfx7jzIL HFdyuocMz7yJocI08je9L1G yjhL10gsKYlELxjwNKtxknb czIwIEFSVEVSWSwgTEVGVCB DQVJPVElELCBFTkRBUlRFUk DVJX3WZLpxfTNcGVZWTTRPK zmGYDMPSUQUL2UDOZSRQ6HM AhCYVKRKDGWeRWVasq53ZTS 9FaZek6M3ZFN8QXKeHDFiy0 lcZGVmbGFuZzEwMzNcZnRuY afivMIaDFSuFmSpz3epx626 qVKuv5ojGRNfZtI8iSYyYML cyHImM757CVEeRHjyf8kcn3 SdDRCenJApi0D9FHYJcnpnj Lf9vNudP06iu1G1JoruP7tu UKBlQWIuK1MaUG2kEYHbKwu 6YAM4HQT1XTEmFUKtP7KzTO 2aBXWucWSgNVr4m5syhWlxP TBvPEC4m5pePDotpeSiYB7y gl1kqJz9h1sqieLpFOOpJGC ivSPDEKOhZ3OamCliGj4ixZ p4vVnxBkifAQZ2Ukp2RU5jt s25tvb9iRzqODQyygxqHxW3 XNtqYFYddfpcXDw6DOsbHJH ixTR2PWCqiPLeS2OeEPVsNP 9gmre0HSX9QUcgZQDwBxN7Q SOiwXLsMJKlvWgtRPwbw080 XST8ZmWvOU6gY6Miq4C0sF7 maXRcZGVmdGFiNzIwXGZvcm 6rxFVgKPunj6QbZNI2xyD8u IDaoODaUCWvSiJ5ISjaQL7s jl64QWCsALH1ka8aaEUeeHv ezrIwmAUhNYdfQ3HfJQDmt3 42QLChE6LtCZXpj9V3gbWrC zQkKGDgwZL5eqD1XTCvUA7r aprfa5bqPZwuCOljKYVeboP 6qfL5YCYmaYDpI8OwiO2jYR EuHL3eslbth3ulXNQ3PZhiC AGnNNL4VlJwLIAud8Djwxw2 RuAyi9CasXTgXHjdT96lj50 0MEGngvDbI9zvxMPxdiofbS XvfbdtKUuwstF3NRRbMSabr ygfNSUzMOcvB2fsVxUzOJCu yJqpHPkpt9ZcHJNxYGTuDzX flHEaIMJwLic3NZSfkAGdUF ZgTfLcO8xabzhcWbXKVENrl 7yaN5rnlRNHpWKpB1HmQDin uxPjJVluHTudEBUvZHY1GP0 2QdsuYUIzpv97 CPT Code(s) (test code v5dzlKIeMQZsyAI2ByCbMMB = 3357) jh4tzm1AgoTOngSOzGVvxnD QtsbAkql33gQF0oO72SS1sF AIsPcV0PGXuudI0Pwb3VTNd KGSfzBDvL653p8tdk0mxpxH giBP6hDfnIIWsWCAuAEvdFJ JbZtQpKWpkSSR7MDf4ClPxJ HBhcn0= CLINICAL HISTORY (test o0ynfBGfKGGzpSR3CbNqTBA code = 3356) cg8ldd2JteVDpkRHxCLygrR RmcpFune47eWR0uN43JI1vV CUfIwG7WWQezmA3Pqd5UVJa HPSwtBNoG072t1cwj8pwrbE miEQ0xJooEVRqFCIiWCvvMJ IyMiOyHKDiz5HzCZceE83jh 2lzOiAgbGVmdCBjYXJvdGlk IWS2KC0ze5ebDSWvlp2= SPECIMEN SOURCE (test w8xkdJSkLWSisMJ1JcEkSOY code = 3377) rn0ilx4XyyPNsyMIdCBhrkI XwfjMvzh74wYL4cA73HX8iB DPnVvJ8NFKhtvK7Dfc5DSFx NBGzvFKfP796x7xcg4cmubA nxST2sKujMIJqERXrAXtsJD ZzMjAgUGxhcXVlIFxwYXJ9 GROSS DESCRIPTION v2esrDGdSVQsuIN3AyOoAGT (test code = 3366) ph7cnj1TkmFRfcVYiPHotnG NhwjUegi86dLR3hJ99QN8qN SOcHsM7ZTLwwaG1Hae4GMSl KBVsdWFoU010b4uxy5ffbwX mqZE7bBecQWFsUFClNRodFD KpUmLkChTaOHf7VKMyGfOhu 6azuWPnDQpdVBZ1aIGwDZBz QOFyCFDgJN16G6CbfvUbZIf cEUPtUHLqwZ3wXN93kGVryw KcgwMpUxBuOLF7LSggbGKii CBjYXJvdGlkIGFydGVyeSBw uADhyBCyESujTZGlMz8iBQm wFx3mMRCiMJdagxVrqZnzaf GeolHzsUNdoBNhPpX4JHbkn 3cgcGxhcXVlIHRoYXQgZGlz xLxxyFQiY5CrI3ykaLNutJl chj5cRSfqINPvEVBorPWpPB wrEAIwbswexOi6UZVhR0Ppw 77tZOF1jlAjNQEmJUkaLDW1 WRrra8jijU7uh9woawUjsBD iW2CoY2buvJFsTLAjuvDeht 4gVGhlIHNwZWNpbWVuIGlzI ZV5Ao8zxWTmCLGuzqZhaOYc BM00gTXmdAotUi3jrC24cP6 kJKEvK2SgF9ujyLGamDmtgb DksqHXNV4fGTdTQ3KxQMuzL XJ9 MICROSCOPIC i5tsjSAbDLNffCT2YuWgLLA DESCRIPTION (test code ex3hgd8PtnXKskZWnGKdfxE = 3371) HapnZuug61qEC0vD15VH5yO VGxVbX1RAAzjkD0Dfv3ECAe THUuiEJsY334q2bhv2xyzvF ibJU8cRwcSLUkAINpWPtuKL OvLbCzELSuLo1aoPCzMFAva n0= [facility] [id number] 18:50:00Surgical Pathology Report Case: [id number] Authorizing Provider: Juan Gallardo, Collected:09/19/2020 02:54 PM Ordering Location: [facility] Received: 09/19/2020 03:32 PM PERIOPERATIVE SERVICES Pathologist: Jarad Menchaca MD Specimen: Plaque, LEFT CAROTID ARTERY PLAQUE ARTERY, LEFT CAROTID, ENDARTERECTOMY:CALCIFIC ATHEROSCLEROTIC PLAQUE Signing Pathologist Direct Phone Line: [phone] signed by Jarad Menchaca MD on 09/23/2020 at 6:50 [id number]; [id number] diagnosis: left carotid stenosisPlaque Received fresh labeled with the patient's name, accession number and "plaque, left carotid artery plaque" is a 2.0 x 2.0 cm irregular fragment of yellow plaque that disp lays calcification. The specimen is serially sectioned to reveal a yellow homogeneous calcified center. The specimen is submitted in its entirety following decalcification in A1. JG/pl PerformedPOC-Glucose [id number] 11:48:00 Test Item Value Reference Range Interpretation Comments POC-Glucose Meter (test 208 mg/dL 70-110 H : TE STED AT [facility] code = 1538) [address] [place] [address], [facility] 30: [employer] Supervisor/Techni ciara ID = [id number] for BERT CORONADO Lab Interpretation (test Abnormal code = 77834-7) [facility] [id number] 11:48:00 Test Item Value Reference Range Interpretation Comments POC-Glucose Meter (test 208 mg/dL 70-110 H : TE STED AT [facility] code = 1538) [address] [place] [address], [facility] 30: [employer] Supervisor/Techni ciara ID = [id number] for BERT CORONADO Lab Interpretation (test Abnormal code = 70089-5) [facility]-GLUCOSE [id number] 11:48:00 Test Item Value Reference Range Interpretation Comments POC-GLUCOSE METER 208 mg/dL 70-110 H : TESTED A T [facility] 6720 (BEAKER) (test code = [facility], 153) [id number]: [employer] Supervisor/Techni ciara ID = [id number] for JULIETA VERGARA BERT POCT-GLUCOSE [id number] 08:17:00 Test Item Value Reference Range Interpretation Comments POC-GLUCOSE METER 183 mg/dL 70-110 H [facility] (test code = [facility], 153) [address]: [employer] Supervisor/Techni ciara ID = [id number] for JULIETA VERGARA, BERT POC ACTIVATED CLOTTING [id number] 06:23:00 Test Item Value Reference Range Interpretation Comments Activated Clotting Time 241 sec : 74 -137 seconds, (test code = 441) Baseline: TESTED AT [address], [facility] 30: [employer] Supervisor/Techni ciara ID = [id number] for CAST RO, NAT [facility] ACTIVATED CLOTTING [id number] 06:23:00 Test Item Value Reference Range Interpretation Comments Activated Clotting Time 241 sec : 74 -137 seconds, (test code = 441) Baseline: TESTED AT [address], [facility] 30: [employer] Supervisor/Techni ciara ID = [id number] for CAST RO, NAT [facility]PO[facility]-[id number] 06:23:00 Test Item Value Reference Range Interpretation Comments ACTIVATED CLOTTING TIME 241 sec : 74 -137 seconds, (BEAKER) (test code = Baseli ne: TESTED AT 441) [facility] [address] [facility], [address] 30: [employer] Supervisor/Techni ciara ID = [id number] for CA STRO, NAT [id number] 06:23:00 Test Item Value Reference Range Interpretation Comments ACTIVATED CLOTTING TIME 224 sec : 74 -137 seconds, (BEAKER) (test code = Baseli ne: TESTED AT 441) [facility] [address] [facility], [address] 30: [employer] Supervisor/Techni ciara ID = [id number] for CA STRO, NAT CBC with platelet count + automated [id number] 01:08:00 Test Item Value Reference Range Interpretation Comments WBC (test code = 6690-2) 12.8 See_Comment H [A utomated message] The system [employer] generated this result transmitted ref erence range: 3.5 - 10 .5 K/L. The refe rence range was not u sed to interpret this result as normal/abnor mal. RBC (test code = 789-8) 3.64 See_Comment L [Au tomated message] The system [employer] generated this result transmitted ref erence range: 3.93 - 5 .22 M/L. The refe rence range was not u sed to interpret this result as normal/abnor mal. MCHC (test code = 786-4) 30.3 See_Comment L [A utomated message] The system [employer] generated this result transmitted ref erence range: [...] code = 299 See_Comment [Aut omated message] 527-3) The system [employer] generated this result transmitted ref erence range: 150 - 45 0 K/CU MM. The referen ce range was not u sed to interpret this result as normal/abnor mal. MPV (test code = 10.5 fL 9.4-12.3 68457-9) nRBC (test code = 413) 0 See_Comment [Aut omated message] The system [employer] generated this result transmitted ref erence range: [...] H [Aut omated message] 670) The system [employer] generated this result transmitted ref erence range: 1.56 - 6 .13 K/L. The refe rence range was not u sed to interpret this result as normal/abnor mal. # Lymphs (test code = 1.06 See_Comment L [Auto mated message] 414) The system [employer] generated this result transmitted ref erence range: 1.18 - 3 .74 K/L. The refe rence range was not u sed to interpret this result as normal/abnor mal. # Monos (test code = 0.20 See_Comment L [Autom ated message] 415) The system [employer] generated this result transmitted ref erence range: 0.24 - 0 .36 K/L. The refe rence range was not u sed to interpret this result as normal/abnor mal. # Eos (test code = 416) 0.00 See_Comment L [Au tomated message] The system [employer] generated this result transmitted ref erence range: 0.04 - 0 .36 K/L. The refe rence range was not u sed to interpret this result as normal/abnor mal. # Baso (test code = 417) 0.03 See_Comment [A utomated message] The system [employer] generated this result transmitted ref erence range: 0.01 - 0 .08 K/L. The refe rence range was not u sed to interpret this result as normal/abnor mal. Immature 1 % 0-1 Granulocytes-Relative (test code = 2801) Lab Interpretation (test Abnormal code = 06590-4) [facility] with platelet count + automated [id number] 01:08:00 Test Item Value Reference Range Interpretation Comments WBC (test code = 6690-2) 12.8 See_Comment H [A utomated message] The system [employer] generated this result transmitted ref erence range: 3.5 - 10 .5 K/L. The refe rence range was not u sed to interpret this result as normal/abnor mal. RBC (test code = 789-8) 3.64 See_Comment L [Au tomated message] The system [employer] generated this result transmitted ref erence range: 3.93 - 5 .22 M/L. The refe rence range was not u sed to interpret this result as normal/abnor mal. MCHC (test code = 786-4) 30.3 See_Comment L [A utomated message] The system [employer] generated this result transmitted ref erence range: [...] See_Comment [Aut omated message] 777-3) The system [employer] generated this result transmitted ref erence range: 150 - 45 0 K/CU MM. The referen ce range was not u sed to interpret this result as normal/abnor mal. MPV (test code = 10.5 fL 9.4-12.3 51432-9) nRBC (test code = 413) 0 See_Comment [Aut omated message] The system [employer] generated this result transmitted ref erence range: [...] H [Aut omated message] 670) The system [employer] generated this result transmitted ref erence range: 1.56 - 6 .13 K/L. The refe rence range was not u sed to interpret this result as normal/abnor mal. # Lymphs (test code = 1.06 See_Comment L [Auto mated message] 414) The system [employer] generated this result transmitted ref erence range: 1.18 - 3 .74 K/L. The refe rence range was not u sed to interpret this result as normal/abnor mal. # Monos (test code = 0.20 See_Comment L [Autom ated message] 415) The system [employer] generated this result transmitted ref erence range: 0.24 - 0 .36 K/L. The refe rence range was not u sed to interpret this result as normal/abnor mal. # Eos (test code = 416) 0.00 See_Comment L [Au tomated message] The system [employer] generated this result transmitted ref erence range: 0.04 - 0 .36 K/L. The refe rence range was not u sed to interpret this result as normal/abnor mal. # Baso (test code = 417) 0.03 See_Comment [A utomated message] The system [employer] generated this result transmitted ref erence range: 0.01 - 0 .08 K/L. The refe rence range was not u sed to interpret this result as normal/abnor mal. Immature 1 % 0-1 Granulocytes-Relative (test code = 2801) Lab Interpretation (test Abnormal code = 87587-1) [facility] W/PLT COUNT & AUTO [id number] 01:08:00 Test Item Value Reference Range Interpretation [...] (BEAKER) (test code = 2801) Basic Metabolic [id number] 00:56:00 Test Item Value Reference Range Interpretation Comments Sodium (test code = 134 meq/L 136-145 L 2951-2) Potassium (test code = 3.9 meq/L 3.5-5.1 2823-3) Chloride (test code = 104 meq/L 98-107 2075-0) CO2 (test code = 23 meq/L -2027-) BUN (test code = 10 mg/dL 7- 3094-0) Creatinine (test code 0.76 mg/dL 0.57-1.25 = 2160-0) Glucose (test code = 332 mg/dL 70-105 H 2345-7) Calcium (test code = 8.2 mg/dL 8.4-10.2 L 16867-8) EGFR (test code = 75 mL/min/1.73 [place] [address]-0) NOT ACCURATE CREATININE CLEARANCE IN PREDICTING GLOMERULAR FILTRATION RATE . ESTIMATED GFR I S NOT APPLICABLE FOR DIALYSIS PATIENTS. GABRIELA (test code = GABRIELA) [employer] Supervisor ID - PIAYA L Lab Interpretation Abnormal (test code = 59746-2) [facility]00 Test Item Value Reference Range Interpretation Comments Magnesium (test code = 1.7 mg/dL 1.6-2.6 89075-6) GABRIELA (test code = GABRIELA) [employer] Supervisor ID - PIAYA L Lab Interpretation (test Normal code = 21570-7) [facility] 00:56:00 Test Item Value Reference Range Interpretation Comments Phosphorus (test code = 3.7 mg/dL 2.3-4.7 2777-1) GABRIELA (test code = GABRIELA) [employer] Supervisor ID - PIAYA L Lab Interpretation (test Normal code = 68022-4) [facility] [id number] 00:56:00 Test Item Value Reference Range Interpretation Comments Sodium (test code = 134 meq/L 136-145 L 2951-2) Potassium (test code = 3.9 meq/L 3.5-5.1 2823-3) Chloride (test code = 104 meq/L 98-107 2075-0) CO2 (test code = 23 meq/L -29 2028-9) BUN (test code = 10 mg/dL 7- 3094-0) Creatinine (test code 0.76 mg/dL 0.57-1.25 = 2160-0) Glucose (test code = 332 mg/dL 70-105 H 2345-7) Calcium (test code = 8.2 mg/dL 8.4-10.2 L 11732-7) EGFR (test code = 75 mL/min/1.73 [place] [address]-9) NOT ACCURATE CREATININE CLEARANCE IN PREDICTING GLOMERULAR FILTRATION RATE . ESTIMATED GFR I S NOT APPLICABLE FOR DIALYSIS PATIENTS. GABRIELA (test code = GABRIELA) [employer] Supervisor ID - PIAYA L Lab Interpretation Abnormal (test code = 91140-4) [facility] 00:56:00 Test Item Value Reference Range Interpretation Comments Magnesium (test code = 1.7 mg/dL 1.6-2.6 24117-6) GABRIELA (test code = GABRIELA) [employer] Supervisor ID - PIAYA L Lab Interpretation (test Normal code = 81973-1) [facility] 00:56:00 Test Item Value Reference Range Interpretation Comments Phosphorus (test code = 3.7 mg/dL 2.3-4.7 2777-1) GABRIELA (test code = GABRIELA) [employer] Supervisor ID - PIAYA L Lab Interpretation (test Normal code = 83636-3) [facility]OLIC [id number] 00:56:00 Test Item Value Reference Range Interpretation Comments SODIUM (BEAKER) 134 meq/L 136-145 L (test code = 381) POTASSIUM (BEAKER) 3.9 meq/L 3.5-5.1 (test code = 379) CHLORIDE (BEAKER) 104 meq/L 98-107 (test code = 382) CO2 (BEAKER) (test 23 meq/L code = 355) BLOOD UREA NITROGEN 10 mg/dL - (BEAKER) (test code = 354) CREATININE (BEAKER) 0.76 mg/dL 0.57-1.25 (test code = 358) GLUCOSE RANDOM 332 mg/dL 70-105 H (BEAKER) (test code = 652) CALCIUM (BEAKER) 8.2 mg/dL 8.4-10.2 L (test code = 697) EGFR (BEAKER) (test 75 mL/min/1.73 ESTIMA ZOË GFR IS code = 1092) sq m NOT ACCURATE CREATININE CLEARANCE IN PREDICTING GLOMERULAR FILTRATION RATE . ESTIMATED GFR I S NOT APPLICABLE FOR DIALYSIS PATIEN TS. [employer] Supervisor ID - FARHAD [id number] 00:56:00 Test Item Value Reference Range Interpretation Comments MAGNESIUM (BEAKER) (test code = 1.7 mg/dL 1.6-2.6 627) [employer] Supervisor ID - FARHAD [id number] 00:56:00 Test Item Value Reference Range Interpretation Comments PHOSPHORUS (BEAKER) (test code = 3.7 mg/dL 2.3-4.7 604) [employer] Supervisor ID - FARHAD LCalcium, [id number] 00:31:00 Test Item Value Reference Range Interpretation Comments Calcium, Ion (test code = 1993-3) 1.18 mmol/L 1.12-1.27 pH, Blood (test code = 46847-3) 7.39 [facility] HospitalCal[facility], [id number] 00:31:00 Test Item Value Reference Range Interpretation Comments Calcium, Ion (test code = 1993-) 1.18 mmol/L 1.12-1.27 pH, Blood (test code = 47277-9) 7.39 [facility] HospitalCALCIUM, [id number] 00:31:00 Test Item Value Reference Range Interpretation Comments CALCIUM IONIZED (BEAKER) (test 1.18 mmol/L 1.12-1.27 code = 698) PH, BLOOD (BEAKER) (test code = 7.39 1810) [id number] 10:46:00 Test Item Value Reference Range Interpretation Comments PTT (test code = 24698-8) 27.9 See_Comment [ Automated message] The system [employer] generated this result transmitted ref erence range: 22.5 - 3 6.0 seconds. The re ference range was not u sed to interpret this result as normal/abnor mal. Lab Interpretation (test Normal code = 92845-3) [facility]00 Test Item Value Reference Range Interpretation Comments PTT (test code = 47334-7) 27.9 See_Comment [ Automated message] The system whic h generated this result transmitted ref erence range: 22.5 - 3 6.0 seconds. The re ference range was not u sed to interpret this result as normal/abnor mal. Lab Interpretation (test Normal code = 18562-1) [facility] 10:46:00 Test Item Value Reference Range Interpretation Comments PARTIAL THROMBOPLASTIN TIME 27.9 seconds 22.5-36.0 (BEAKER) (test code = 760) Prothrombin time/[id number] 10:45:00 Test Item Value Reference Interpretation Comments [...] valves. Lab Interpretation Normal (test code = 72933-0) [facility] HospitalProthrombin time/[id number] 10:45:00 Test Item Value Reference Interpretation Comments [...] valves. Lab Interpretation Normal (test code = 95292-8) [facility] HospitalPROTHROMBIN TIME/[id number] 10:45:00 Test Item Value Reference Range Interpretation [...] 2.5-3.5 for patients wiht mechanical heart valves.POCT-GLUCOSE [id number] 09:19:00 Test Item Value Reference Range Interpretation Comments POC-GLUCOSE METER 187 mg/dL 70-110 H : TESTED A T [facility] 6720 (YECENIA) (test code = [place]ENDIRA [place], 1538) [address]: M[employer] Regulator Shop Supervisor/Techni ciara ID = [id number] for Jojo Rivers ECG 12 [id number] 12:51:19Interface, External Ris In - 09/14/2020 12:51 PM CSTVentricular Rate 65 BPMAtrial Rate 65 BPMP-R Interval 154 msQRS Duration 78 msQ-T Interval 442 msQTC Calculation(Bazett) 459 msP [place] 5 degreesR Axis77 degreesT [place] 66 degreesNormal sinus rhythmNonspecific T wave abnormalityProlonged QTWhen compared with ECG of 02-AUG-2019 06:01,Premature ventricular complexes are no longer PresentConfirmed by Daksha NICHOLE, MOLLY ([id number]) on 09/14/2020 12:51:17 [facility] [id number] 12:51:19Interface, External Ris In - 09/14/2020 12:51 PM CSTVentricular Rate 65 BPMAtrial Rate 65 BPMP-R Interval 154 msQRS Duration 78 msQ-T Interval 442 msQTC Calculation(Bazett) 459 msP [place] 5 degreesR Axis77 degreesT [place] 66 degreesNormal sinus rhythmNonspecific T wave abnormalityProlonged QTWhen compared with ECG of 02-AUG-2019 06:01,Premature ventricular complexes are no longer PresentConfirmed by Daksha NICHOLE, MOLLY ([id number]) on 09/14/2020 12:51:17 [facility] HospitalABORH, [id number] 16:42:00 Test Item Value Reference Range Interpretation Comments ABO Grouping (test code = 2588) A Rh Factor (test code = 2589) POS [facility], [id number] 16:42:00 Test Item Value Reference Range Interpretation Comments ABO Grouping (test code = 2588) A Rh Factor (test code = 2589) POS [facility] HospitalType and screen, [id number] 16:36:00 Test Item Value Reference Range Interpretation Comments Ab Scrn (test code = 890-4) NEGATIVE echo2 [facility] HospitalType and screen, [id number] 16:36:00 Test Item Value Reference Range Interpretation Comments Ab Scrn (test code = 890-4) NEGATIVE echo2 [facility] HospitalBASIC METABOLIC [id number] 15:32:00 Test Item Value Reference Range Interpretation [...] 697) EGFR (BEAKER) (test 82 mL/min/1.73 ESTIMA ZOË GFR IS code = 1092) sq m NOT ACCURATE CREATININE CLEARANCE IN PREDICTING GLOMERULAR FILTRATION RATE . ESTIMATED GFR I S NOT APPLICABLE FOR DIALYSIS PATIEN TS. [employer] Shop Supervisor ID - ADMINPROTHROMBIN TIME/[id number] 15:29:00 Test Item Value Reference Range Interpretation [...] mechanical heart valves.CBC W/PLT COUNT & AUTO [id number] 15:17:00 Test Item Value Reference Range Interpretation [...] (BEAKER) (test code = 2801) BASIC METABOLIC [id number] 06:24:00 Test Item Value Reference Range Interpretation [...] 0-0 (BEAKER) (test code = 413) POCT-GLUCOSE [id number] 21:22:00 Test Item Value Reference Range Interpretation Comments POC-GLUCOSE METER 138 mg/dL 70-110 H TESTED AT [place] [address] ([facility]ANNER) (test code = ERENDIRA [place] 1538) [address] POCT-GLUCOSE [id number] 17:38:00 Test Item Value Reference Range Interpretation Comments POC-GLUCOSE METER 131 mg/dL 70-110 H TESTED AT [facility] 6720 ([place]) (test code = ERENDIRA Guzman [facility] 1538) [address] BASIC METABOLIC [id number] 06:07:00 Test Item Value Reference Range Interpretation [...] 1092) DATA TO CALCULA TE ESTIMATED GFR. [id number] 06:04:00 Test Item Value Reference Range Interpretation [...] H (BEAKER) (test code = 413) POCT-GLUCOSE [id number] 23:10:00 Test Item Value Reference Range Interpretation Comments POC-GLUCOSE METER 127 mg/dL 70-110 H TESTED AT [facility] 6720 (BEAKER) (test code = ERENDIRA Guzman [facility] 1538) [address] POCT-GLUCOSE [id number] 12:36:00 Test Item Value Reference Range Interpretation Comments POC-GLUCOSE METER 157 mg/dL 70-110 H TESTED AT [place] [address] (BEAKER) (test code = ERENDIRA Guzman [facility] 1538) [address] CBC (HEMOGRAM ONLY)2019-08-02 06:03:00 Test Item Value [...] (BEAKER) (test code = 413) BASIC METABOLIC [id number] 05:47:00 Test Item Value Reference Range Interpretation [...] 1092) DATA TO CALCULA TE ESTIMATED GFR. [id number] 05:46:00 Test Item Value Reference Range Interpretation Comments PHOSPHORUS (BEAKER) (test code = 2.5 mg/dL 2.3-4.7 604) [id number] 05:46:00 Test Item Value Reference Range Interpretation Comments MAGNESIUM (BEAKER) (test code = 2.1 mg/dL 1.6-2.6 627) POCT-GLUCOSE [id number] 20:47:00 Test Item Value Reference Range Interpretation Comments POC-GLUCOSE METER 164 mg/dL 70-110 H [facility] [place] [address] [facility] (test code = [facility] 1538) [address] POCT-GLUCOSE [id number] 17:38:00 Test Item Value Reference Range Interpretation Comments POC-GLUCOSE METER 194 mg/dL 70-110 H TESTED AT [place] [address] ([facility] (test code = [facility] 1538) [address] POCT-GLUCOSE [id number] 07:51:00 Test Item Value Reference Range Interpretation Comments POC-GLUCOSE METER 157 mg/dL 70-110 H TESTED AT [place] [address] ([facility]) (test code = [facility] 1538) [address] HEMOGLOBIN [id number] 07:51:00 Test Item Value Reference Range Interpretation Comments HEMOGLOBIN A1C (BEAKER) (test code = 8.6 % 4.3-6.1 H 368) BASIC METABOLIC [id number] 06:11:00 Test Item Value Reference Range Interpretation [...] 1092) DATA TO CALCULA TE ESTIMATED GFR. [id number] 06:10:00 Test Item Value Reference Range Interpretation Comments PHOSPHORUS (BEAKER) (test code = 1.9 mg/dL 2.3-4.7 L 604) [id number] 06:10:00 Test Item Value Reference Range Interpretation [...] 0-0 (BEAKER) (test code = 413) POCT-GLUCOSE [id number] 22:07:00 Test Item Value Reference Range Interpretation Comments POC-GLUCOSE METER 175 mg/dL 70-110 H TESTED AT [place] [address] ([facility]) (test code = [facility] 1538) [address] POCT-GLUCOSE [id number] 18:30:00 Test Item Value Reference Range Interpretation Comments POC-GLUCOSE METER 225 mg/dL 70-110 H TESTED AT [place] [address] ([facility]) (test code = [facility] 1538) [address] POCT-GLUCOSE [id number] 12:17:00 Test Item Value Reference Range Interpretation Comments POC-GLUCOSE METER 170 mg/dL 70-110 H TESTED AT [place] [address] ([facility]) (test code = [facility] 1538) [address] POCT-GLUCOSE [id number] 08:20:00 Test Item Value Reference Range Interpretation Comments POC-GLUCOSE METER 161 mg/dL 70-110 H TESTED AT [place] [address] ([facility]) (test code = [facility] 1538) [address] BASIC METABOLIC [id number] 08:18:00 Test Item Value Reference Range Interpretation [...] 1092) DATA TO CALCULA TE ESTIMATED GFR. [id number] 08:15:00 Test Item Value Reference Range Interpretation Comments MAGNESIUM (BEAKER) 1.9 mg/dL 1.6-2.6 Specimen slightly (test code = 627) hemolyzed [id number] 08:15:00 Test Item Value Reference Range Interpretation Comments PHOSPHORUS (BEAKER) 2.3 mg/dL 2.3-4.7 Specimen slightly (test code = 604) hemolyzed RAD, CHEST, 1 VIEW, NON [id number] 07:56:00Reason for exam:->post-op cardiac surgeryShould this be [...] MDReport Verified Date/Time: 07/31/2019 07:56:15 Reading Location: [facility] Radiology Reading Room Electronically signed by: DIXON WILKERSON on 07/31 07:56 [id number] 07:25:00 Test Item Value Reference Range Interpretation [...] 0-0 (BEAKER) (test code = 413) POCT-GLUCOSE [id number] 21:32:00 Test Item Value Reference Range Interpretation Comments POC-GLUCOSE METER 168 mg/dL 70-110 H TESTED AT [place] [address] ([facility]) (test code = ERENDIRA [place] 1538) [address] POCT-GLUCOSE [id number] 17:55:00 Test Item Value Reference Range Interpretation Comments POC-GLUCOSE METER 172 mg/dL 70-110 H TESTED AT [facility] 6720 ([place]) (test code = ERENDIRA Guzman [place] 1538) [address] POCT-GLUCOSE [id number] 15:34:00 Test Item Value Reference Range Interpretation Comments POC-GLUCOSE METER 152 mg/dL 70-110 H TESTED AT [place] [address] (BEAKER) (test code = ERENDIRA Guzman [facility] 1538) [address] POCT-GLUCOSE [id number] 12:52:00 Test Item Value Reference Range Interpretation Comments POC-GLUCOSE METER 222 mg/dL 70-110 H TESTED AT [place] [address] (BEAKER) (test code = ERENDIRA Guzman [facility] 1538) [address] POCT-GLUCOSE [id number] 07:19:00 Test Item Value Reference Range Interpretation Comments POC-GLUCOSE METER 185 mg/dL 70-110 H TESTED AT [place] [address] (BEAKER) ([facility] = [facility] 1538) [address] [id number] 06:16:00 Test Item Value Reference Range Interpretation Comments ACTIVATED CLOTTING TIME 109 sec Refe rence Range: 74-137 (BEAKER) (test code = second s, 441) Baseline/TESTED AT [address] [address] [id number] 06:16:00 Test Item Value Reference Range Interpretation Comments ACTIVATED CLOTTING TIME 543 sec Refe rence Range: 74-137 (BEAKER) (test code = second s, 441) Baseline/TESTED AT [address] [address] [id number] 06:16:00 Test Item Value Reference Range Interpretation Comments ACTIVATED CLOTTING TIME 510 sec Refe rence Range: 74-137 (BEAKER) (test code = second s, 441) Baseline/TESTED AT [address] [address] BASIC METABOLIC [id number] 06:04:00 Test Item Value Reference Range Interpretation [...] 1092) DATA TO CALCULA TE ESTIMATED GFR. [id number] 06:02:00 Test Item Value Reference Range Interpretation Comments PHOSPHORUS (BEAKER) (test code = 3.7 mg/dL 2.3-4.7 604) [id number] 06:02:00 Test Item Value Reference Range Interpretation Comments MAGNESIUM (BEAKER) (test code = 2.0 mg/dL 1.6-2.6 627) [id number] 05:57:00 Test Item Value Reference Range Interpretation [...] 2.5-3.5 for patients wiht mechanical heart valves.PROTHROMBIN TIME/[id number] 05:56:00 Test Item Value Reference Range Interpretation [...] 2.5-3.5 for patients wiht mechanical heart valves.CALCIUM, [id number] 05:55:00 Test Item Value Reference Range Interpretation Comments CALCIUM IONIZED (BEAKER) (test 1.17 mmol/L 1.12-1.27 code = 698) PH, BLOOD (BEAKER) (test code = 7.38 1810) CBC W/PLT COUNT & AUTO [id number] 05:55:00 Test Item Value Reference Range Interpretation [...] (BEAKER) (test code = 2801) OXYGEN SATURATION, [id number] 05:49:00 Test Item Value Reference Range Interpretation Comments O2 SATURATION (MEASURED) (BEAKER) 77.2 % (test code = 1455) RAD, CHEST, 1 VIEW, NON [id number] 05:35:00Reason for exam:->post-op cardiac surgeryShould this be [...] Signed: Hortencia Brand Verified Date/Time: 07/30/2019 05:35:16 [id number] 18:41:00 Test Item Value Reference Range Interpretation Comments POTASSIUM (BEAKER) (test code = 4.2 meq/L 3.5-5.1 379) PRN - repeat potassium levels every 1 hour until glucose level is less than 450 mg/dLPOCT-GLUCOSE [id number] 18:14:00 Test Item Value Reference Range Interpretation Comments POC-GLUCOSE METER 175 mg/dL 70-110 H TESTED AT [facility] 6720 [facility] (test code = ERENDIRA Guzman [place] 1538) [address] BLOOD GAS, [id number] 16:57:00 Test Item Value Reference Range Interpretation [...] (test code = 1819) 40.0 % HEMOGLOBIN [id number] 16:17:00 Test Item Value Reference Range Interpretation Comments HEMOGLOBIN A1C (BEAKER) (test code = 9.5 % 4.3-6.1 H 368) PLATELET AGGREGATION: FUNCTION [id number] 15:15:00 Test Item Value Reference Range Interpretation Comments [id number] Giovanni Tee M.D. (BEAKER) (test code = (electonic signature) 8291) PLATELET COUNT AGG 273 K/CU MM 150-450 (BEAKER) (test code = 2656) PLATELET RICH 258 k/cu mm 200-300 PLASMA(BEAKER) (test code = 2134) PLATELET FUNCTION Pattern of SCREEN INTERPRETATION disaggregation present (BEAKER) (test code = with ADP which may be 4657) characteristic of P2Y12 inhibitor effect. Correlation with medication history is required. Platelet Function Screen results may be falsely low with platelet counts<75,000/cu mm.POCT-GLUCOSE [id number] 15:07:00 Test Item Value Reference Range Interpretation Comments POC-GLUCOSE METER 125 mg/dL 70-110 H TESTED AT [facility] 6720 ([facility]) (test code = ERENDIRA Guzman [place] 1538) [address] POCT-GLUCOSE [id number] 14:26:00 Test Item Value Reference Range Interpretation Comments POC-GLUCOSE METER 85 mg/dL 70-110 TESTED AT [facility] 6720 (BEAKER) (test code = [facility] [place] [address] 1538) POCT-GLUCOSE [id number] 14:14:00 Test Item Value Reference Range Interpretation Comments POC-GLUCOSE METER 88 mg/dL 70-110 TESTED AT [facility] 6720 ([facility]) (test code = ERENDIRA Guzman [facility] [address] 1538) RAD, CHEST, 1 VIEW, NON [id number] 13:11:00Reason for exam:->Status post CV Surgery post [...] of postoperative complication. Signed: Abdelrahman Akbar MDReport Verified Da te/Time: 07/29/2019 13:11:13 Reading Location: [facility] Reading Room -GLUCOSE [id number] 13:00:00 Test Item Value Reference Range Interpretation Comments POC-GLUCOSE METER 132 mg/dL 70-110 H TESTED AT [place] [address] ([facility]) (test code = [facility] [place] [facility] 1538) [address] BASIC METABOLIC [id number] 12:28:00 Test Item Value Reference Range Interpretation [...] 1092) DATA TO CALCULA TE ESTIMATED GFR. [id number] 12:27:00 Test Item Value Reference Range Interpretation Comments PHOSPHORUS (BEAKER) (test code = 2.3 mg/dL 2.3-4.7 604) [id number] 12:27:00 Test Item Value Reference Range Interpretation Comments MAGNESIUM (BEAKER) (test code = 2.6 mg/dL 1.6-2.6 627) [id number] 12:26:00 Test Item Value Reference Range Interpretation Comments PARTIAL THROMBOPLASTIN TIME 27.4 seconds 22.5-36.0 (BEAKER) (test code = 760) PROTHROMBIN [id number] 12:25:00 Test Item Value Reference Range Interpretation [...] for patients wiht mechanical heart valves.LACTIC ACID, [id number] 12:21:00 Test Item Value Reference Range Interpretation Comments LACTATE BLOOD ARTERIAL (2) 1.2 mmol/L 0.5-2.2 (BEAKER) (test code = 2874) CBC W/PLT COUNT & AUTO [id number] 12:08:00 Test Item Value Reference Range Interpretation [...] PERCENT (BEAKER) (test code = 2801) CALCIUM, [id number] 12:04:00 Test Item Value Reference Range Interpretation Comments CALCIUM IONIZED (BEAKER) (test 1.15 mmol/L 1.12-1.27 code = 698) PH, BLOOD (BEAKER) (test code = 7.44 1810) BLOOD GAS, [id number] 12:03:00 Test Item Value Reference Range Interpretation [...] code = 1819) 60.0 % OXYGEN SATURATION, [id number] 12:00:00 Test Item Value Reference Range Interpretation Comments O2 SATURATION (MEASURED) (BEAKER) 66.6 % (test code = 1455) For occult [id number] 11:53:00 Test Item Value Reference Range Interpretation Comments PHOSPHORUS (BEAKER) (test code = 2.9 mg/dL 2.3-4.7 604) CALCIUM, [id number] 10:32:00 Test Item Value Reference Range Interpretation Comments CALCIUM IONIZED (BEAKER) (test 1.03 mmol/L 1.12-1.27 L code = 698) PH, BLOOD (BEAKER) (test code = 7.33 1810) BLOOD GAS, [id number] 10:31:00 Test Item Value Reference Range Interpretation [...] code = 1819) 100.0 % SODIUM NA-STAT [id number] 10:31:00 Test Item Value Reference Range Interpretation Comments SODIUM (BEAKER) (test code = 381) 133 meq/L 135-148 L GLUCOSE-STAT [id number] 10:31:00 Test Item Value Reference Range Interpretation Comments GLUCOSE RANDOM (BEAKER) (test code 226 mg/dL 70-110 H = 652) HGB/HCT (H&H) - STAT [id number] 10:31:00 Test Item Value Reference Range Interpretation Comments HEMOGLOBIN (BEAKER) (test code = 8.0 g/dL 12.0-15.0 L 410) HEMATOCRIT (BEAKER) (test code = 24.0 % 36.0-45.0 L 411) POTASSIUM-STAT [id number] 10:30:00 Test Item Value Reference Range Interpretation Comments POTASSIUM (BEAKER) (test code = 4.2 meq/L 3.6-5.5 379) BLOOD GAS, [id number] 10:05:00 Test Item Value Reference Range Interpretation [...] code = 1819) 80.0 % SODIUM NA-STAT [id number] 10:05:00 Test Item Value Reference Range Interpretation Comments SODIUM (BEAKER) (test code = 381) 127 meq/L 135-148 L POTASSIUM-STAT [id number] 10:05:00 Test Item Value Reference Range Interpretation Comments POTASSIUM (BEAKER) (test code = 5.9 meq/L 3.6-5.5 H 379) GLUCOSE-STAT [id number] 10:05:00 Test Item Value Reference Range Interpretation Comments GLUCOSE RANDOM (BEAKER) (test code 241 mg/dL 70-110 H = 652) HGB/HCT (H&H) - STAT [id number] 10:05:00 Test Item Value Reference Range Interpretation Comments HEMOGLOBIN (BEAKER) (test code = 8.0 g/dL 12.0-15.0 L 410) HEMATOCRIT (BEAKER) (test code = 24.0 % 36.0-45.0 L 411) BLOOD GAS, [id number] 09:51:00 Test Item Value Reference Range Interpretation [...] code = 1819) 80.0 % SODIUM NA-STAT [id number] 09:51:00 Test Item Value Reference Range Interpretation Comments SODIUM (BEAKER) (test code = 381) 130 meq/L 135-148 L GLUCOSE-STAT [id number] 09:51:00 Test Item Value Reference Range Interpretation Comments GLUCOSE RANDOM (BEAKER) (test code 249 mg/dL 70-110 H = 652) HGB/HCT (H&H) - STAT [id number] 09:51:00 Test Item Value Reference Range Interpretation Comments HEMOGLOBIN (BEAKER) (test code = 8.1 g/dL 12.0-15.0 L 410) HEMATOCRIT (BEAKER) (test code = 24.0 % 36.0-45.0 L 411) POTASSIUM-STAT [id number] 09:50:00 Test Item Value Reference Range Interpretation Comments POTASSIUM (BEAKER) (test code = 5.4 meq/L 3.6-5.5 379) BLOOD GAS, [id number] 09:23:00 Test Item Value Reference Range Interpretation [...] code = 1819) 100.0 % SODIUM NA-STAT [id number] 09:23:00 Test Item Value Reference Range Interpretation Comments SODIUM (BEAKER) (test code = 381) 132 meq/L 135-148 L GLUCOSE-STAT [id number] 09:23:00 Test Item Value Reference Range Interpretation Comments GLUCOSE RANDOM (BEAKER) (test code 164 mg/dL 70-110 H = 652) CALCIUM, [id number] 09:23:00 Test Item Value Reference Range Interpretation Comments CALCIUM IONIZED (BEAKER) (test 1.05 mmol/L 1.12-1.27 L code = 698) PH, BLOOD (BEAKER) (test code = 7.44 1810) POTASSIUM-STAT [id number] 09:22:00 Test Item Value Reference Range Interpretation Comments POTASSIUM (BEAKER) (test code = 4.0 meq/L 3.6-5.5 379) HGB/HCT (H&H) - STAT [id number] 09:22:00 Test Item Value Reference Range Interpretation Comments HEMOGLOBIN (BEAKER) (test code = 12.2 g/dL 12.0-15.0 410) HEMATOCRIT (BEAKER) (test code = 36.0 % 36.0-45.0 411) RAD, CHEST, 1 VIEW, NON [id number] 07:12:00Reason for exam:->preopShould this be performed at the bedside?->YesFINAL REPORT INDICATION: preop COMPARISON: None TECHNIQUE: Single frontal view of the chest. FINDINGS: Lungs and pleura: Clear lungs. No effusion.Heart and mediastinum: Normal heart size. Unremarkable mediastinal contours.Osseous structures: No acute abnormality.Other: None. IMPRESSION: No acute intrathoracic abnormality. Signed: Deirdre De Jesuseport Verified Date/Time: 07/29/2019 07:12:45 [id number] 07:01:00 Test Item Value Reference Range Interpretation Comments PARTIAL THROMBOPLASTIN TIME 31.2 seconds 22.5-36.0 (BEAKER) (test code = 760) BASIC METABOLIC [id number] 05:57:00 Test Item Value Reference Range Interpretation [...] 1092) DATA TO CALCULA TE ESTIMATED GFR. [id number] 05:51:00 Test Item Value Reference Range Interpretation Comments MAGNESIUM (BEAKER) (test code = 1.9 mg/dL 1.6-2.6 627) [id number] 05:35:00 Test Item Value Reference Range Interpretation [...] 2.5-3.5 for patients wiht mechanical heart valves.PROTHROMBIN TIME/[id number] 05:34:00 Test Item Value Reference Range Interpretation [...] mechanical heart valves.CBC W/PLT COUNT & AUTO [id number] 05:24:00 Test Item Value Reference Range Interpretation [...] % 0-1 PERCENT (BEAKER) (test code = 2800) POC, COVID 19 Antigen + Flu by SofiaPOC, COVID 19 Antigen + Flu by Avril
[2023-02-28 14:41] LABS: Absolute Lymphocytes (CBC) 2.8 K/uL (0.7-4.9); Hematocrit 41.2 % (36.0-45.0); Lymphocytes % 29.7 % (15.3-44.8); MCV 100.4 fL (80-100); MPV 8.5 fL (7.6-11.3); RBC Red Blood Cell Count 4.11 M/uL (3.86-4.86)
[2023-02-28] MEDS ORDERED: NA CHLORIDE 0.9% 1,000 ML ONE ×2 (14:41→15:24)
[2023-02-28 14:43] LABS: Protime INR 1.02
[2023-02-28 15:01] LABS: ALT/SGPT 39 U/L (13-56); AST/SGOT 38 U/L (15-37); Albumin 3.1 g/dL (3.4-5.0); Alkaline Phosphatase 78 U/L (45-117); BUN Blood Urea Nitrogen 13 mg/dL (7-18); Bicarbonate 30 mEq/L (21-32); Bilirubin Total 0.3 mg/dL (0.2-1.0); Glomerular Filtration Rate 72 ml/min (=/>90); Glucose Level 188 mg/dL (74-106); Lipase 107 U/L (13-75); Magnesium 2.2 mg/dL (1.6-2.4); NT PRO-BNP 193 pg/mL (<125); Potassium 4.1 mEq/L (3.5-5.1); Protein, Total 8.2 g/dL (6.4-8.2); Sodium Level 134 mEq/L (136-145); Troponin High Sensitivity 17.9 pg/mL (<58.9)
[2023-02-28 15:07] LABS: Bilirubin Direct < 0.1 mg/dL (0-0.2); Bilirubin Indirect, Calculated ND mg/dL (0.2-0.8)
--- NOTE | 2023-02-28 15:10 | RAD REPORT ---
EXAM DESCRIPTION: RADChest Single View02/28/2023 2:56 pm CLINICAL HISTORY: DYSPNEA COMPARISON: Chest Single View dated 07/07/2022; Chest Single View dated 06/27/2022; Chest Single View dated 08/20/2021; Chest Single View dated 06/14/2021 TECHNIQUE: Portable AP view of the chest. FINDINGS: The lungs are clear. No pneumothorax or effusion. 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 IMPRESSION: No acute cardiopulmonary process.
--- NOTE | 2023-02-28 15:56 | RAD REPORT ---
EXAM DESCRIPTION: CT - Head Brain Wo Cont - 02/28/2023 3:42 pm CLINICAL HISTORY: Pain;Dizziness COMPARISON: Head Brain Wo Cont dated 07/07/2022; Head Brain Wo Cont dated 06/27/2022 TECHNIQUE: Noncontrast head CT images ad were obtained without IV contrast. Multiplanar reformats we re generated and reviewed. All CT scans are performed using dose optimization technique as appropriate and may include automated exposure control or mA/KV adjustment according to patient size. FINDINGS: No intracranial hemorrhage, mass, or edema. Midline structures are unremarkable. Stable ventricular caliber. Mild diffuse parenchymal volume loss. Carmona-white matter differentiation is preserved, without evidence of acute infarct. No abnormal extra- axial fluid collections. Mastoid air cells and visualized portions of the paranasal sinuses are clear. No acute bony findings. IMPRESSION: No evidence of an acute intracranial process.
--- NOTE | 2023-02-28 16:00 | RAD REPORT ---
EXAM DESCRIPTION: US - Extrem Venous W Compress David - 02/28/2023 3:43 pm CLINICAL HISTORY: Pain COMPARISON: 06/28/2022 TECHNIQUE: Real-time sonographic evaluation of the bilateral lower extremity deep venous systems was performed. FINDINGS: Normal compressibility, flow augmentation, phasic flow and spontaneous flow is identified in both the left and right lower extremity deep venous systems. No intraluminal filling defects seen. IMPRESSION: No evidence of DVT in either lower extremity.
[2023-02-28 16:11] LABS: Arterial Blood Carboxyhemoglob 1.1 % (0-1.5); Blood Gas Oxyhemoglobin 93.9 % (94-97); Blood O2 Saturation 96.4 % (92-98.5)
--- NOTE | 2023-02-28 16:29 | RAD REPORT ---
EXAM DESCRIPTION: CT - Chest For Pe Angio - 02/28/2023 3:46 pm CLINICAL HISTORY: DYSPNEA COMPARISON: Chest For Pe Angio dated 06/28/2022; Thorax Wo Con dated 06/14/2021; Thorax W/ Con dated ; Chest For Pe Angio dated 03/17/2019 TECHNIQUE: Thin axial CT images of the chest were obtained following administration of 100 mL Isovue 370 IV contrast. Multiplanar reconstructions, and maximum intensity projection reconstructions were generated and reviewed. Exam utilizes a protocol for optimal evaluation of pulmonary arterial tree. All CT scans are performed using dose optimization technique as appropriate and may include automated exposure control or mA/KV adjustment according to patient size. FINDINGS: Pulmonary arteries are normal. No emboli or other suspicious finding. No acute or signific ant aorta findings. No mass or infiltrate in the lung parenchyma. No pleural thickening or pleural effusion. No pneumotho rax. No abnormal mediastinal or hilar masses or lymphadenopathy seen. No chest wall mass or abnormal axill iary lymphadenopathy. Status post cholecystectomy. IMPRESSION: No evidence of acute central pulmonary emboli. Negative CT scan of the chest for other significant findings.
--- NOTE | 2023-02-28 17:06 | EDPHYS ---
Physician Documentation [facility] Name: Ivet Calderon Age: 72 yrs Sex: Female : 1950 Arrival Date: 02/28/2023 Time: 13:59 Bed 13 Private MD: ED Physician Shankar Forbes HPI: 02/28 15:07 This 72 yrs old Female presents to ER via EMS with complaints of DIZZY, SOB demetri AND ANXIOUS. 15:07 The patient has shortness of breath at rest. Onset: The symptoms/episode began/occurred demetri just prior to arrival. Duration: The symptoms are continuous, but are steadily getting better, but are markedly better than the original presentation. The patient's shortness of breath has no apparent modifying factors. WOKE UP DIFFICULTY GETTING UP SOB AND ANXIOUS, NO CP. The patient presents with dizziness. Onset: The symptoms/episode began/occurred. Modifying factors: The symptoms are alleviated by nothing, the symptoms are aggravated by nothing. Associated signs and symptoms: Pertinent positives: agitation, shortness of breath. Associated signs and symptoms: The patient has no apparent associated signs or symptoms. Severity of symptoms: At their worst the symptoms were mild in the emergency department the symptoms are unchanged. Patient's baseline: Neuro: alert and fully oriented. The patient has experienced similar episodes in the past, a few times. Historical: - Allergies: 14:12 Morphine; ko1 - Home Meds: 14:12 aspirin 81 mg Oral chew 1 tab once daily [Active]; Lopressor 50 mg Oral tab 1 tab once ko1 daily [Active]; lisinopril Oral [Active]; - PMHx: 14:12 Diabetes - NIDDM; heart attack; Hypercholesterolemia; Hypertension; ko1 - PSHx: 14:12 Appendectomy; Cholecystectomy; open heart surgery; Stented artery; ko1 - Immunization history:: Adult Immunizations up to date. - Social history:: Smoking status: Patient denies any tobacco usage or history of. - Family history:: not pertinent. ROS: 15:07 Constitutional: Negative for fever, chills, and weight loss, Eyes: Negative for injury, demetri pain, redness, and discharge, ENT: Negative for injury, pain, and discharge, Neck: Negative for injury, pain, and swelling, Cardiovascular: Negative for chest pain, palpitations, and edema, Abdomen/GI: Negative for abdominal pain, nausea, vomiting, diarrhea, and constipation, Back: Negative for injury and pain, : Negative for injury, bleeding, discharge, and swelling, MS/Extremity: Negative for injury and deformity, Skin: Negative for injury, rash, and discoloration, Neuro: Negative for headache, weakness, numbness, tingling, and seizure, Psych: Negative for depression, anxiety, suicide ideation, homicidal ideation, and hallucinations, Allergy/Immunology: Negative for hives, rash, and allergies, Endocrine: Negative for neck swelling, polydipsia, polyuria, polyphagia, and marked weight changes, Hematologic/Lymphatic: Negative for swollen nodes, abnormal bleeding, and unusual bruising. 15:07 Respiratory: Positive for shortness of breath. 17:09 : Negative for urinary symptoms, urinary frequency, small amounts, hematuria, burning demetri with urination, difficulty urinating, foul smelling urine. Exam: 15:07 Constitutional: This is a well developed, well nourished patient who is awake, alert, demetri and in no acute distress. Head/Face: Normocephalic, atraumatic. Eyes: Pupils equal round and reactive to light, extra-ocular motions intact. Lids and lashes normal. Conjunctiva and sclera are non-icteric and not injected. Cornea within normal limits. Periorbital areas with no swelling, redness, or edema. ENT: Nares patent. No nasal discharge, no septal abnormalities noted. Tympanic membranes are normal and external auditory canals are clear. Oropharynx with no redness, swelling, or masses, exudates, or evidence of obstruction, uvula midline. Mucous membranes moist. Neck: Trachea midline, no thyromegaly or masses palpated, and no cervical lymphadenopathy. Supple, full range of motion without nuchal rigidity, or vertebral point tenderness. No Meningismus. Chest/axilla: Normal chest wall appearance and motion. Nontender with no deformity. No lesions are appreciated. Cardiovascular: Regular rate and rhythm with a normal S1 and S2. No gallops, murmurs, or rubs. Normal PMI, no JVD. No pulse deficits. Respiratory: Lungs have equal breath sounds bilaterally, clear to auscultation and percussion. No rales, rhonchi or wheezes noted. No increased work of breathing, no retractions or nasal flaring. Abdomen/GI: Soft, non-tender, with normal bowel sounds. No distension or tympany. No guarding or rebound. No evidence of tenderness throughout. Back: No spinal tenderness. No costovertebral tenderness. Full range of motion. Female : Normal external genitalia. Skin: Warm, dry with normal turgor. Normal color with no rashes, no lesions, and no evidence of cellulitis. MS/ Extremity: Pulses equal, no cyanosis. Neurovascular intact. Full, normal range of motion. Neuro: Awake and alert, GCS 15, oriented to person, place, time, and situation. Cranial nerves II-XII grossly intact. Motor strength 5/5 in all extremities. Sensory grossly intact. Cerebellar exam normal. Normal gait. Psych: Awake, alert, with orientation to person, place and time. Behavior, mood, and affect are within normal limits. 15:07 ECG was reviewed by the Attending Physician. 17:00 Musculoskeletal/extremity: DVT Exam: No signs of deep vein thrombosis. no pain, no demetri swelling, no tenderness, negative Homans' sign noted on exam, no appreciated bluish discoloration, no erythema, no increased warmth. Vital Signs: 14:09 BP 182 / 72; Pulse 78; Resp 18; Temp 98; Pulse Ox 97% on R/A; ko1 15:00 BP 192 / 82; Pulse 85; Resp 18; Pulse Ox 99% on R/A; eh3 [place] Coma Score: 17:08 Eye Response: spontaneous(4). Motor Response: obeys commands(6). Verbal Response: demetri oriented(5). Total: 15. MDM: 14:12 Patient medically screened. demetri 15:12 Differential diagnosis: Anemia Bronchitis CHF exacerbation, Chronic Obstructive demetri Pulmonary Disease Myocardial Infarction pneumonia, Pneumothorax Psychogenic pulmonary edema, Pulmonary Embolism reactive airway disease, Sepsis Unstable Angina. Antibiotic administration: Not indicated, the patient does not have an appreciated infiltrate. Differential Diagnosis altered mental status. Differential diagnosis: cardiac arrhythmia, CVA, idiopathic dizziness, near-syncope. Immunization status: Pneumococcal vaccine: within last 5 years. Influenza vaccine: Data reviewed: vital signs, nurses notes, lab test result(s), EKG, radiologic studies, CT scan, plain films. Consideration of Admission/Observation Escalation of care including admission/observation considered. I considered the following discharge prescriptions or medication management in the emergency department Medications were administered in the Emergency Department. See SABINO. Independent interpretation of the following test(s) in the Emergency Department EKG: See my EKG interpretation above. Test considered but Not performed: MRI: NO MRI BRAIN. Care significantly affected by the following chronic conditions: Diabetes, Hypertension, CAD, [place], HIGH CHOLESTEROL. Counseling: I had a detailed discussion with the patient and/or guardian regarding: the historical points, exam findings, and any diagnostic results supporting the discharge/admit diagnosis, the presence of at least one elevated blood pressure reading (>120/80) during this emergency department visit, lab results, radiology results, the need for outpatient follow up, for definitive care, a maintenance controller, a family practitioner. 02/28 14:14 Order name: Basic Metabolic Panel; Complete Time: 16: [facility] 02/28 14:14 Order name: CBC with Diff; Complete Time: 15: [facility] 02/28 14:14 Order name: D-Dimer; Complete Time: 15: [facility] 02/28 14:14 Order name: LFT's; Complete Time: 16: [facility] 02/28 14:14 Order name: Magnesium; Complete Time: 16: [facility] 02/28 14:14 Order name: NT PRO-BNP; Complete Time: 16: demetri 02/28 14:14 Order name: PT-INR; Complete Time: 15:05 [facility] 02/28 14:14 Order name: Troponin HS; Complete Time: 16: [facility] 02/28 14:14 Order name: Lipase; Complete Time: 16:26 demetri 02/28 14:14 Order name: ABG: RA; Complete Time: 16: [facility] 02/28 14:20 Order name: Glucose, Ancillary Testing; Complete Time: 15:05 EDMS 02/28 14:14 Order name: XRAY Chest (1 view); Complete Time: 16:26 demetri 02/28 15:05 Order name: CT Head Brain wo Cont; Complete Time: 16: [facility] 02/28 15:06 Order name: CT Chest For PE Angio; Complete Time: 16:59 [facility] 02/28 15:06 Order name: US Extremity Venous W Compression David; Complete Time: 16:26 demetri 02/28 14:14 Order name: EKG; Complete Time: 14:14 demetri 02/28 14:14 Order name: Cardiac monitoring; Complete Time: 14:14 demetri 02/28 14:14 Order name: EKG - Nurse/Tech; Complete Time: 14:49 [facility] 02/28 14:14 Order name: IV Saline Lock; Complete Time: 14:32 [facility] 02/28 14:14 Order name: Labs collected and sent; Complete Time: 14:32 [facility] 02/28 14:14 Order name: O2 Per Protocol; Complete Time: 14:14 [facility] 02/28 14:14 Order name: O2 Sat Monitoring; Complete Time: 14:14 [facility] EC:07 Rate is 73 beats/min. Rhythm is regular. QRS [place] is Normal. RI interval is normal. QRS demetri interval is normal. QT interval is normal. No Q waves. T waves are Normal. No ST changes noted. Clinical impression: NSR w/ Non-specific ST/T Changes and No evidence of ischemia. Interpreted by me. Reviewed by me. Administered Medications: 14:37 Drug: NS 0.9% IV 1000 ml Route: IV; Rate: 125 ml/hr; Site: right antecubital; ko1 17:23 Follow up: Response: No adverse reaction; IV Status: IV converted to saline lock; IV ko1 Intake: 400ml 15:16 Drug: NS 0.9% IV 1000 ml Route: IV; Rate: 1 bolus; Site: left antecubital; ko1 17:00 Follow up: Response: No adverse reaction; IV Status: Completed infusion; IV Intake: ko1 1000ml 17:01 Follow up: IV Status: Completed infusion; IV Intake: 1000ml eh3 Disposition Summary: 02/28/23 17:06 Discharge Ordered Location: Home demetri Problem: new demetri Symptoms: have improved demetri Condition: Stable demetri Diagnosis - Dizziness and giddiness demetri - Dyspnea - RESOLVED demetri - Anxiety disorder, unspecified demetri Followup: demetri - With: Private Physician - When: 2 - 3 days - Reason: Recheck today's complaints, Continuance of care, Re-evaluation by your physician Followup: demetri - With: - When: 2 - 3 days - Reason: Recheck today's complaints, Re-evaluation by your physician Discharge Instructions: - Discharge Summary Sheet demetri - Dizziness demetri - Aspirin and Your Heart demetri - Dizziness, [id number] demetri - Managing Anxiety, Adult demetri Forms: - Medication Reconciliation Form demetri - Thank You Letter demetri - Antibiotic Education demetri - Prescription Opioid Use demetri Prescriptions: - Meclizine 25 mg Oral Tablet - take 1 tablet by ORAL route every 8 hours As needed; 30 tablet; Refills: 0, [facility] Product Selection Permitted - Zofran 4 mg Oral Tablet - take 1 tablet by ORAL route every 12 hours As needed; 20 tablet; Refills: 0, demetri Product Selection Permitted Signatures: Dispatcher [employer] Shankar Marin MD MD cha Oliver, Kathy, RN RN ko1 [place] RN eh3
--- NOTE | 2023-02-28 17:06 | ER ---
Nurse's Notes [facility] Name: Ivet Calderon Age: 72 yrs Sex: Female : 1950 Arrival Date: 02/28/2023 Time: 13:59 Bed 13 Private MD: Diagnosis: Dizziness and giddiness;Dyspnea-RESOLVED;Anxiety disorder, unspecified Presentation: 02/28 14:09 Chief complaint: EMS states: patient called for shortness of breath, her sats were 100% ko1 on room air, she did appear anxious but calmed down after awhile. Coronavirus screen: At this time, the client does not indicate any symptoms associated with coronavirus-19. Ebola Screen: No symptoms or risks identified at this time. Initial Sepsis Screen: Does the patient meet any 2 criteria? No. Patient's initial sepsis screen is negative. Does the patient have a suspected source of infection? No. Patient's initial sepsis screen is negative. Risk Assessment: Do you want to hurt yourself or someone else? Patient reports no desire to harm self or others. Onset of symptoms was February 28, 2023. 14:09 Method Of Arrival: EMS: [facility] ko1 14:09 Acuity: DORYS 3 ko1 Triage Assessment: 14:12 General: Appears distressed, comfortable, Behavior is cooperative, appropriate for age, ko1 anxious. Pain: Denies pain. Historical: - Allergies: 14:12 Morphine; ko1 - Home Meds: 14:12 aspirin 81 mg Oral chew 1 tab once daily [Active]; Lopressor 50 mg Oral tab 1 tab once ko1 daily [Active]; lisinopril Oral [Active]; - PMHx: 14:12 Diabetes - NIDDM; heart attack; Hypercholesterolemia; Hypertension; ko1 - PSHx: 14:12 Appendectomy; Cholecystectomy; open heart surgery; Stented artery; ko1 - Immunization history:: Adult Immunizations up to date. - Social history:: Smoking status: Patient denies any tobacco usage or history of. - Family history:: not pertinent. Screenin:16 [facility] ED Fall Risk Assessment (Adult) History of falling in the last 3 months, ko1 including since admission No falls in past 3 months (0 pts) Confusion or Disorientation No (0 pts) Intoxicated or Sedated No (0 pts) Impaired Gait No (0 pts) Mobility Assist Device Used No (0 pt) Altered Elimination No (0 pt) Score/Fall Risk Level 0 - 2 = Low Risk Oriented to surroundings, Maintained a safe environment, Educated pt \T\ family on fall prevention, incl call for assistance when getting out of bed, Assessed \T\ reinforced patient's understanding of fall precautions, Provided non-skid footwear, Hourly rounding (assess needs \T\ fall precautionary measures) done, Used ambulatory aids as needed (educated on \T\ assisted with), Used gait belt as appropriate. Abuse screen: Denies threats or abuse. Denies injuries from another. Nutritional screening: No deficits noted. Tuberculosis screening: No symptoms or risk factors identified. Assessment: 14:16 Neuro: No deficits noted. [place] Agitation-Sedation Scale (RASS): +1 Restless. ko1 Cardiovascular: No deficits noted. Respiratory: Reports shortness of breath earlier. GI: No deficits noted. : No deficits noted. EENT: No deficits noted. Derm: No deficits noted. Musculoskeletal: No deficits noted. Vital Signs: 14:09 BP 182 / 72; Pulse 78; Resp 18; Temp 98; Pulse Ox 97% on R/A; ko1 15:00 BP 192 / 82; Pulse 85; Resp 18; Pulse Ox 99% on R/A; eh3 [place] Coma Score: 17:08 Eye Response: spontaneous(4). Motor Response: obeys commands(6). Verbal Response: demetri oriented(5). Total: 15. ED Course: 14:09 Patient arrived in ED. em1 14:09 Val Sharpe, JOSE is Primary Nurse. ko1 14:12 Triage completed. ko1 14:12 Shankar Forbes MD is Attending Physician. demetri 14:12 Arm band placed on left wrist. Patient placed in an exam room, on a stretcher, on ko1 teletypesetter monitor, on pulse oximetry, Patient notified of wait time. 14:16 Patient has correct armband on for positive identification. Bed in low position. Call ko1 light in reach. Side rails up X 1. Client placed on continuous cardiac and pulse oximetry monitoring. NIBP monitoring applied. vehicle monitor technician on. Door closed. Lights dimmed. Warm blanket given. 14:16 No provider procedures requiring assistance completed. ko1 14:30 Inserted saline lock: 20 gauge in right antecubital area, using aseptic technique. ko1 Blood collected. 14:32 Lipase Sent. ko1 14:32 Basic Metabolic Panel Sent. ko1 14:32 CBC with Diff Sent. ko1 14:32 D-Dimer Sent. ko1 14:32 LFT's Sent. ko1 14:32 Magnesium Sent. ko1 14:32 NT PRO-BNP Sent. ko1 14:32 Troponin HS Sent. ko1 14:33 PT-INR Sent. ko1 14:57 XRAY Chest (1 view) In Process Unspecified. EDMS 15:44 CT Head Brain wo Cont In Process Unspecified. EDMS 15:45 US Extremity Venous W Compression David In Process Unspecified. EDMS 15:48 CT Chest For PE Angio In Process Unspecified. EDMS 17:05 Arnaldo Tan MD is Referral Physician. [facility] 17:22 IV discontinued, intact, bleeding controlled, No redness/swelling at site. Pressure ko1 dressing applied. Administered Medications: 14:37 Drug: NS 0.9% IV 1000 ml Route: IV; Rate: 125 ml/hr; Site: right antecubital; ko1 17:23 Follow up: Response: No adverse reaction; IV Status: IV converted to saline lock; IV ko1 Intake: 400ml 15:16 Drug: NS 0.9% IV 1000 ml Route: IV; Rate: 1 bolus; Site: left antecubital; ko1 17:00 Follow up: Response: No adverse reaction; IV Status: Completed infusion; IV Intake: ko1 1000ml 17:01 Follow up: IV Status: Completed infusion; IV Intake: 1000ml [facility] Medication: 17:21 VIS not applicable for this client. ko1 Intake: 17:00 IV: 1000ml; Total: 1000ml. ko1 17:01 IV: 1000ml; Total: 2000ml. eh3 17:23 IV: 400ml; Total: 2400ml. ko1 Outcome: 17:[address] . [facility] 17:23 Patient left the ED. ko1 Signatures: Dispatcher [employer] Shankar Marin MD MD cha Martinez, Eric em1 Verónica Haro, RN RN 3 Val Sharpe RN RN ko1
[2023-02-28 17:32] VITALS: TEMP 98
[2023-02-28 17:37] VITALS: BP 192/82; O2SAT 99
--- NOTE | 2023-03-01 13:26 | EKG ---
Test Date: 2023-02-28 Test Time: 14:44:23 Medical Genetics Director: CHRISTOPHER MEASUREMENT RESULTS: Intervals: Rate: 73 IA: 164 QRSD: 80 QT: 386 QTc: 425 [place]: P: 39 IA: 164 QRS: 60 T: 51 INTERPRETIVE STATEMENTS: Normal sinus rhythm Cannot rule out Anterior infarct, age undetermined Abnormal ECG Compared to ECG 07/07/2022 13:49:06 Myocardial infarct finding now present Electronically Signed On 03-01-23 13:25:42 CDT by Arnaldo Tan
== END 2023-02-28 17:23 | disposition home or self-care (01) ==
LOC: ER 13:59
DX: F41.9 Anxiety disorder, unspecified (principal); I10 Essential (primary) hypertension; E11.9 Type 2 diabetes mellitus without complications; E78.00 Pure hypercholesterolemia, unspecified; Z79.82 Long term (current) use of aspirin; Z88.5 Allergy status to narcotic agent
CPT/HCPCS: 96361; 93005; 85025; 80048; 36415; 83735; 85610; 82947; 85379; 80076; 84484; 83690; 83880; 70450; 71275; 71045; 93970; 82805; 96360; 99285; Q9967; J7030 ×2

== ENCOUNTER 2023-04-05 06:30 | Day surgery (SDC) | payer OTHER ==
[2023-04-02 14:00] LABS: Absolute Lymphocytes (CBC) 2.9 K/uL (0.7-4.9); Hematocrit 41.7 % (36.0-45.0); Lymphocytes % 26.5 % (15.3-44.8); MPV 8.7 fL (7.6-11.3); RBC Red Blood Cell Count 4.21 M/uL (3.86-4.86)
[2023-04-02 14:06] LABS: Protime INR 0.95
[2023-04-02 14:12] LABS: Potassium 3.8 mEq/L (3.5-5.1)
--- NOTE | 2023-04-03 19:11 | EKG ---
Test Date: 2023-04-02 Test Time: 13:38:53 Human Resources Training Manager: WILMA MEASUREMENT RESULTS: Intervals: Rate: 66 [place]: 154 QRSD: 76 QT: 396 QTc: 415 [place]: P: 19 [place]: 154 QRS: 71 T: 71 INTERPRETIVE STATEMENTS: Normal sinus rhythm Cannot rule out Anterior infarct, age undetermined Abnormal ECG Compared to ECG 02/28/2023 14:44:23 No significant changes Electronically Signed On 04-03-23 19:09:06 CDT by Arnaldo Tan
[2023-04-05] MEDS ORDERED: HEPA 1000U/500MLS 2,000 UNIT/1,000 ML BAG IV ONE (06:40)
[2023-04-05] MEDS ORDERED: LIDOCAINE 1% 20 ML MDV ONE (06:40)
[2023-04-05] MEDS ORDERED: NITROGLYCERIN 100 MCG/ML SYR (for cath lab use only) IV ONE (06:42)
[2023-04-05] MEDS ORDERED: FENTANYL CITR 100 MCG/2 ML ONE (06:42)
[2023-04-05] MEDS ORDERED: VERAPAMIL HCL 10 MG/4 ML VIAL IV ONE (06:42)
[2023-04-05] MEDS ORDERED: MIDAZOLAM HCL 2 MG/2 ML INJ ONE (06:42)
[2023-04-05] MEDS ORDERED: ATROPINE SULF 1 MG/10 ML SYR IV ONE (06:42)
[2023-04-05] MEDS ORDERED: HEPARIN 5000 UNIT/ML 1 ML VIAL ONE (06:43)
[2023-04-05] MEDS ORDERED: NITROGLYCERIN/D5W 25 MG/250 ML BTL IV ONE (06:43)
[2023-04-05] MEDS ORDERED: NA CHLORIDE 0.9% 500 ML ONE (06:48)
[2023-04-05 06:56] VITALS: TEMP 97.1
[2023-04-05] MEDS ORDERED: HYDRALAZINE HCL 20 MG/ML VIAL ONE (08:11)
[2023-04-05 10:10] VITALS: BP 128/48; O2SAT 95
--- NOTE | 2023-04-05 21:54 | OP ---
Date of Procedure: 04/05/2023 Surgeon: HOLLY GUNN Procedure Performed: Peripheral angiogram with runoff. Indication: Peripheral vascular disease. Access: Right radial artery 6-Kiswahili closed with TR band. Complications: None. Estimated Blood Loss: Bleeding less than 20 mL. Anesthesia: Total sedation time was 20 minutes, used fentanyl and Versed. Description Of Procedure: After risks, benefits, and alternatives were explained, the patient agreed to procedure and signed informed consent. The patient was brought to the cardiac catheterization la boratory and prepped and draped in usual sterile fashion. Then, I accessed right radial artery using pediatric micropuncture kit, placed 6-Kiswahili [place] sheath, and took a long 4-Kiswahili pigtail ko ter into the abdominal aorta and placed in distal aorta, performed distal aortogram and runoff and th en removed the catheter and sheath, and placed TR band with good hemostasis. Findings: 1.Distal aorta widely patent. 2.Right lower extremity: The right common iliac has 20% stenosis, right external iliac is free of d isease, right common femoral artery is normal, the right profunda is normal, the right SFA has multip le areas of 20% to 30% stenosis, and the triple vessel below the knee is widely patent. 3.Left lower extremity: The left common iliac has 30% stenosis. The left external, left common fem oral, and left profunda are all normal and then the left SFA has mid 40% stenosis and then below the knee, there is a widely patent triple vessel runoff. Conclusion: Mild nonobstructive peripheral vascular disease. Plan: Medical management. SR/MODL Voice ID: [id number] Report ID: [id number]
== END 2023-04-05 09:30 | disposition home or self-care (01) ==
LOC: CCL 06:30
PROVIDERS: ATTEND Internal Medicine
DX: I70.223 Atherosclerosis of native arteries of extremities with rest pain, bilateral legs (principal); I25.10 Atherosclerotic heart disease of native coronary artery without angina pectoris; I65.23 Occlusion and stenosis of bilateral carotid arteries; E11.9 Type 2 diabetes mellitus without complications; I10 Essential (primary) hypertension; E78.2 Mixed hyperlipidemia; Z95.1 Presence of aortocoronary bypass graft; Z79.85 Long-term (current) use of injectable non-insulin antidiabetic drugs; Z79.84 Long term (current) use of oral hypoglycemic drugs; Z79.02 Long term (current) use of antithrombotics/antiplatelets; Z79.82 Long term (current) use of aspirin; Z88.5 Allergy status to narcotic agent
CPT/HCPCS: 93005; 85025; 80048; 36415; 85610; 82947; 85730; 36200; 75630; 76937; C1893; J1644; J0360; J2001; J2250; J3010; J7040; J0461

== ENCOUNTER 2023-04-11 09:57 | Emergency (ER) | payer OTHER ==
--- OUTSIDE RECORDS SUMMARY | 2023-04-11 10:10 | XMS REPORT | Continuity of Care Document ---
:1950 Author Organization [facility] t Address [address] [place] [address] [address] [place] [address] Care Team Providers Name Role Phone CARMINE LAO Primary Care Physician Unavailable Carmine Lao Attending Clinician Unavailable JUAN GALLARDO Attending Clinician Unavailable Alden Isaacs MD Attending Clinician ALDEN ISAACS Attending Clinician Unavailable UTE YOST Attending Clinician Unavailable Cinthia Vincent Attending Clinician CINTHIA GARCIA Attending Clinician Unavailable Ute Yost MD Attending Clinician Carol Ann Beatty NP Attending Clinician Charlette Barber Attending Clinician Doctor Unassigned, [place] Attending Clinician Unavailable Juan Gallardo MD Attending Clinician [phone] Maribell Moe MD Attending Clinician Ige-Odjudit_J_AH Attending Clinician Unavailable YAMEL MONIQUE Attending Clinician Unavailable JUAN GALLARDO Admitting Clinician Unavailable ALDEN ISAACS Admitting Clinician Unavailable Ige-Odjudit_J_AH Admitting Clinician Unavailable YAMEL MONIQUE Admitting Clinician Unavailable Payers Payer Name Policy Type Policy Number Effective Date Expiration Date Ad prieto [place] O [id number] 2018 ALL 00:00:00 HUMANA MEDICARE C1 [id number] [facility] Sp keith - [facility] HUMANA MEDICARE C1 [id number] Common Sp keith - [facility] HUMANA MEDICARE C1 [id number] Common Sp keith - [facility] HUMANA MEDICARE C1 [id number] Common Sp keith - [facility] HUMANA GOLD PLS [id number] 2021 HMO 00:00:00 [place] [place] [id number] 2019 - [facility] 00:00:00 (MEDICARE REPLACEMENT/ADV ANTAGE - HMO) Problems Condition Condition Condition Status Onset Resolution Last Treating Co mments Source Name Details Category Date Date Treatment Clinician Date Left Left Disease Active 2019-[address] [facility] carotid carotid 2-07 [facility] artery artery 00:00: Medical stenosis stenosis 00 Center S/P CABG x S/P CABG x Disease Active 2018-[address] 1 by 1 by 0-16 Reji Gallardo on [facility] on 00:00: Me dical 07/29/2019 07/29/2019 00 Ce nter Coronary Coronary Disease Active 2018-10 [facility] t artery artery 0-15 [facility] disease disease 00:00: Medical 00 Center Other Other Disease Active Overview: Univer s appendicit appendicit 6-06 Formattin ity of is is 00:00: g of this [place] 00 note Medical might be Branch different from the original. Added automatic ally from request for surgery [id number] HLD HLD Disease Active Univers (hyperlipi (hyperlipi 04-18 it y of demia) demia) 00:00: [place] Medical Branch Abnormal Abnormal Disease Active Unive rs EKG EKG 04-18 ity of 00:00: [place] 00 Medical Branch Anemia of Anemia in Problem Com mon chronic chronic Spirit disorder illness - [facility] Anemia due Anemia, Problem Comm on to blood blood loss Spir it loss - [facility] Type II Diabetic Problem Common diabetes eye exam Spirit mellitus - CHI without St complicati [facility] [id number] Demand Problem Common ischemia Spirit - [facility] [id number] Stenosis Problem Comm on of right Spirit vertebral - CHI artery [facility] Laboratory Abnormal Problem Com mon test laboratory Spirit result test - [facility] abnormal [facility] [id number] Other Problem Common obesity Spirit due to - [facility]I excess [facility] [id number] Body mass Problem Com mon index Spirit [BMI] - [facility] 31.0-31.9, [facility] [id number] Mixed Problem Common hyperlipid Spirit emia - [facility] [id number] Stented Problem Commo n coronary Spirit artery - [facility] [id number] Essential Problem Comm on (primary) Spirit hypertensi - CHI on [facility] [id number] Essen Problem Common hyperten Spirit preg-unsp - [facility] [id number] Coronary Problem Comm on artery Spirit disease - [facility] involving [facility] coronary Medical artery of Center otoe-missouria heart with other form of angina pectoris [id number] Type 2 Problem Common diabetes Spirit mellitus - CHI with [facility] without Center long-term current use of insulin [id number] Iron Problem Common deficiency Spirit anemia, - CHI unspecifie [facility] iron 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 - CHI thrombosis thrombosis [facility] cerebral unspecifie Medi albert arteries d Center posterior cerebral artery Angina Angina Problem Common pectoris pectoris, Spiri t unspecifie - CHI d [facility] Acute Acute Disease Recurre [facility] respirator respirator nce Daniela kes y y Medical insufficie insufficie Ce nter ncy ncy Acute Acute Disease Active [facility] blood loss blood loss Daniela kes anemia anemia Medical Center Hyperglyce Hyperglyce Disease Active C [facility] Chronic Chronic Disease Active [facility] hypertensi hypertensi Daniela kes on on Medical Center Allergies, Adverse Reactions, Alerts Allergy Allergy Status Severity Reaction(s) Onset Inactive Treating Comm ents Source Name Type Date Date Clinician Morphine Propensi Active Other - See Burning Univers ty to comments 06-18 to skin ity of adverse 00:00: [place] reaction 00 [facility] MORPHINE DRUG Active Other-Cmnt Univ ers INGREDI 06-18 ity of 00:00: [place] 00 [facility] Morphine Propensi Active 2019-[address] ty to 11-14 [facility] adverse 00:00: Medical reaction 00 Center s MORPHINE Allergy Active 2019-[address] 11-14 [facility] 00:00: Medical 00 Center NO KNOWN Allergy Active [facility] NO KNOWN Drug Active Univers ALLERGIE Class ity of S [facility] morphine morphine Active [place] [facility] Family History Family Member Diagnosis Comments Start Date Stop Date Source Natural brother Heart attack [facility] Natural father [facility] Natural father Heart disease [facility] Natural mother Diabetes [facility] Natural mother Heart attack [facility] Social History Social Habit Start Date Stop Date Quantity Comments Source History of Common Spirit - Tobacco Use [facility] History SDOH [facility] Alcohol Std Medical Cente r Drinks History SDOH [facility] Alcohol Binge Medical Tina ter History SDOH [facility] Alcohol Comment Medical C enter Exposure to 2023-02-09 2023-02-19 Not sure University SARS-CoV-2 00:00:00 15:54:00 [facility] (event) [place] Alcohol intake 2020-10-03 2020-10-[address] Dhruv es 00:00:00 00:00:00 non-drinker of Medical Ce nter alcohol (finding) History SDOH 2019-07-29 2019-07-[address] [facility] [facility] Alcohol Frequency 00:00:00 00:00:00 [facility] Tobacco use and 2019-03-19 2019-03-19 Smokeless tobacco Un iversity of exposure 00:00:00 00:00:00 non-user [facility] Sex Assigned At [address] Daniela kes 00:00:00 00:00:00 Medical Center Smoking Status Start Date Stop Date Source Never Smoker Common [facility] Medications Ordered Filled Start Stop Current Ordering Indication Dosage Frequency Signature Comments Components Source Medication Medication Date Date Medication? Clinician (SIG) Name Name cefTRIAXone 2022- No 1000mg 1,000 mg, Univers (ROCEPHIN) 02-20 05-10 IV ity of 1,000 mg in 01:15: 01:44 Piggyback, [place] NaCl 0.9% 00 :00 ONCE, 1 Medical (NS) 100 mL dose, On Bran ch MINI-BAG Sat02/19/23 at 2014, Administer over 30 Minutes, 100 mL
Reas on for Anti-Infec tive: Documented Infection< br>Documen zoë Infection Site: Urine<br&g t;Duration of Therapy: 7 days hydralAZINE 2022- No 10mg 10 mg, Uni vers (APRESOLINE 5- 05-10 Slow IV ity of ) injection 01:15: 01:16 [place] 10 mg 00 :00 ONCE, 1 Medical dose, On Branch Sat02/19/23 at 2014, JASON Nitrofurant 2022- Yes [id number] 100mg Take 1 Univers oin&Nit. 02-19 capsule [...] 2022- No 1{table BID Amoxicilli -Pot -Pot 2-11 15- t} n-Pot Clavulanate Clavulanate 00:00: 00:00 Clavulanat 875-125 MG 875-125 MG 00 :00 e 875-125 MG Amoxicillin Amoxicillin 2022- No 1{table BID Amoxicilli -Pot -Pot 2-11-25 t} n-Pot Clavulanate Clavulanate 00:00: 00:00 Clavulanat [...] t} HCl 10 MG 00:00: 00 ketorolac 2020- No 30mg 30 mg, Unive rs (TORADOL) 06-18 Intramuscu ity of injection 16:45: 15:41 lar, ONCE, [place] 30 mg 00 :00 1 dose, Medical 06/18/21 Branch at 1145, JASON
Fa culty member approving Restricted medication : CAROL ANN BEATTY G HYDROcodone 2020- No 1{tbl} 1 tablet, Univers -acetaminop 06-18 Oral, ity of hen (NORCO) 16:45: 15:41 [place] 1 [place] 10[place]325 mg 00 :00 dose, [place] Medic al tablet 1 06/18/21 at [place] tablet 1145, Routine clopidogreL Yes 75mg Take 75 mg Univers 75 mg 05 by mouth. ity of tablet 16:10: [address] metoprolol Yes 25mg Take 25 mg U nivers tartrate 05 by mouth. ity of mg tablet 16:10: [address] clopidogreL Yes 75mg Take 75 mg Univers 75 mg 05 by mouth. ity of tablet 16:10: [address] metoprolol Yes 25mg Take 25 mg U nivers tartrate 25 05 by mouth. ity of mg tablet 16:10: [address] clopidogreL 0 Yes 75mg Take 75 mg Univers 75 mg 05 by mouth. ity of tablet 16:10: [address] metoprolol Yes 25mg Take 25 mg U nivers tartrate 25 05 by mouth. ity of mg tablet 16:10: [address] clopidogreL Yes 75mg Take 75 mg Univers 75 mg 05 by mouth. ity of tablet 16:10: [address] metoprolol Yes 25mg Take 25 mg U nivers tartrate 25 05 by mouth. ity of mg tablet 16:10: [address] clopidogreL Yes 75mg Take 75 mg Univers 75 mg 06-18 by mouth. ity of tablet 16:10: [address] metoprolol Yes 25mg Take 25 mg U nivers tartrate 06-18 by mouth. ity of mg tablet 16:10: [address] atorvastati 2020- No 80mg Take 80 mg Univers n 40 mg 06-18 by mouth. ity of tablet 16:10: 00:00 [place] : [facility] metFORMIN 2020-2020- No 850mg Take 850 Un zia 850 mg 06-18 mg by ity of tablet 16:10: 00:00 mouth. [place] : [facility] clopidogreL Yes 75mg Take 75 mg Univers 75 mg 06-18 by mouth. ity of tablet 11:10: [address] metoprolol Yes 25mg Take 25 mg U nivers tartrate 06-18 by mouth. ity of mg tablet 11:10: [address] traMADoL 50 2020- No 4647 50mg [...] days. Indication s: acute pain traMADoL 50 0 2020- No [id number] 50mg Take 1 Uni [...] 2-21 by mouth [facility] tablet 11:03: daily. [address] atorvasti 2019-10 Yes 80mg QD Take [address] n (LIPITOR) 2-21 by mouth Luke s 40 MG 11:03: daily . Medical tablet [address] [place] [address] metFORMIN 2019-10 Yes 850mg Take [address] (GLUCOPHAGE 2-21 mg by [facility] ) 850 MG 11:03: mouth 2 Medica l tablet 52 (two) Center times daily with breakfast and dinner. clopidogreL 2019-10 Yes 75mg QD Take [address] (PLAVIX) 75 2-21 by mouth Luke s mg tablet 11:03: daily. Medica l [address] [place] [address] metoprolol 2019-10 Yes 25mg Q.5D Take [address] tartrate 2-21 by mouth 2 [facility] (LOPRESSOR) 11:03: (two) Medic al 25 MG 52 times Center tablet daily. aspirin 81 2019-10 Yes 81mg QD Take [address] MG EC 2-21 by mouth [facility]ukes tablet 11:03: daily. [address] atorvastati 2019-10 Yes 80mg QD Take [address] n (LIPITOR) 2-21 by mouth Luke s 40 MG 11:03: daily . Medical tablet [address] [place] [address] metFORMIN 2019-10 Yes 850mg Take [address] (GLUCOPHAGE 2-21 mg by [facility]ukes ) 850 MG 11:03: mouth 2 Medica l tablet 52 (two) Center times daily with breakfast and dinner. clopidogreL 2019-10 Yes 75mg QD Take [address] (PLAVIX) 75 2-21 by mouth Luke s mg tablet 11:03: daily. Medica [address] metoprolol 2019-10 Yes 25mg Q.5D Take [address] tartrate 2-21 by mouth 2 [facility] (LOPRESSOR) 11:03: (two) Medic al 25 MG 52 times Center tablet daily. aspirin 81 2019-10 Yes 81mg QD Take [address] MG EC 2-21 by mouth [facility]ukes tablet 11:03: daily. [address] atorvastati 2019-10 Yes 80mg QD Take [address] n (LIPITOR) 2-21 by mouth Luke s 40 MG 11:03: daily . Medical tablet [address] [place] [address] metFORMIN 2019-10 Yes 850mg Take [address] (GLUCOPHAGE 2-21 mg by [facility]ukes ) 850 MG 11:03: mouth 2 Medica l tablet 52 (two) Center times daily with breakfast and dinner. clopidogreL 2019-10 Yes 75mg QD Take [address] (PLAVIX) 75 2-21 by mouth Luke s mg tablet 11:03: [facility]. [facility] [address] metoprolol 2019-10 Yes 25mg Q.5D Take [address] tartrate 2-21 by mouth 2 [facility]ukes (LOPRESSOR) 11:03: (two) Medic al 25 MG 52 times Center tablet daily. aspirin 81 2019-10 Yes 81mg QD Take [address] MG EC 2-21 by mouth [facility]ukes tablet 11:03: daily. [address] atorvastati 2019-10 Yes 80mg QD Take [address] n (LIPITOR) 2-21 by mouth Luke s 40 MG 11:03: daily . Medical tablet [address] [place] [address] metFORMIN 2019-10 Yes 850mg Take [address] (GLUCOPHAGE 2-21 mg by [facility]ukes ) 850 MG 11:03: mouth 2 Medica l tablet 52 (two) Center times daily with breakfast and dinner. clopidogreL 2019-10 Yes 75mg QD Take [address] (PLAVIX) 75 2-21 by mouth Luke s mg tablet 11:03: [facility]. [facility] [address] metoprolol 2019-10 Yes 25mg Q.5D Take [address] tartrate 2-21 by mouth 2 [facility]ukes (LOPRESSOR) 11:03: (two) Medic al 25 MG 52 times Center tablet daily. aspirin 81 2019-10 Yes 81mg QD Take [address] MG EC 2-21 by mouth [facility]ukes tablet 11:03: daily. [address] atorvasta 2019-10 Yes 80mg QD Take [address] n (LIPITOR) 2-21 by mouth Luke s 40 MG 11:03: daily . Medical [address] metFORMIN 2019-10 Yes 850mg Take [address] (GLUCOPHAGE 2-21 mg by [facility]ukes ) 850 MG 11:03: mouth 2 Medica l tablet 52 (two) Center times daily with breakfast and dinner. clopidogreL 2019-10 Yes 75mg QD Take [address] (PLAVIX) 75 2-21 by mouth Luke s mg tablet 11:03: daily. Medica [address] metoprolol 2019-10 Yes 25mg Q.5D Take [address] tartrate 2-21 by mouth 2 [facility]ukes (LOPRESSOR) 11:03: (two) Medic al 25 MG 52 times Center tablet daily. aspirin 81 2019-10 Yes 81mg QD Take [address] MG EC 2-21 by mouth [facility]ukes tablet 11:03: daily. [address] [facility]-10 Yes 80mg QD Take [address] n (LIPITOR) 2-21 by mouth Luke s 40 MG 11:03: daily . Medical [address] metFORMIN 2019-10 Yes 850mg Take [address] (GLUCOPHAGE 2-21 mg by [facility]ukes ) 850 MG 11:03: mouth 2 Medica l tablet 52 (two) Center times daily with breakfast and dinner. clopidogreL 2019-10 Yes 75mg QD Take [address] (PLAVIX) 75 2-21 by mouth Luke s mg tablet 11:03: daily. Medica [address] metoprolol 2019-10 Yes 25mg Q.5D Take [address] tartrate 2-21 by mouth 2 [facility] (LOPRESSOR) 11:03: (two) Medic al 25 MG 52 times Center tablet daily. aspirin 81 2019-10 Yes 81mg QD Take [address] MG EC 2-21 by mouth [facility]ukes tablet 11:03: daily. [address] [facility] 2019-10 Yes 80mg QD Take 80 mg [...] Center hours as needed for pain. losartan 2019- 2020- No 25mg QD Take [address] (COZAAR) 25 2-09-13 by mouth Dhruv es MG tablet 13:32: 00:00 daily. Medic al 26 :00 Center losartan 2019-10 2020- No 25mg QD Take [address] (COZAAR) 11-14 by mouth Dhruv es MG tablet 13:32: 00:00 daily. Medic al 26 :00 [place] acetaminoph 2019-10 2020- No 1{tbl} Take 1 [...] (3 mL) injection citalopram 2019-10 Yes 20mg Take 20 mg U nivers 20 mg 0-14 by mouth. ity of tablet 00:00: [place] 00 [facility] citalopram 2019-10 Yes 20mg Take 20 mg U nivers 20 mg 0-14 by mouth. ity of tablet 00:00: [place] [facility] citalopram 2019-10 Yes 20mg Take 20 mg U nivers 20 mg 0-14 by mouth. ity of tablet 00:00: [place] [facility] citalopram 2019-10 Yes 20mg Take 20 mg U nivers 20 mg 0-14 by mouth. ity of tablet 00:00: [place] [facility] citalopram 2019-10 Yes 20mg Take 20 mg U nivers 20 mg 0-14 by mouth. ity of tablet 00:00: [place] [facility] citalopram 2019-10 Yes 20mg Take 20 mg U nivers 20 mg 0-14 by mouth. ity of tablet 00:: [place] [facility] citalopram 2019-10 Yes 20mg QD Take [address] (CeleXA) 20 0-14 by mouth Luke s MG tablet 00:00: daily. Medica l [place] citalopram 2019-10 Yes 20mg QD Take [address] (CeleXA) 20 0-14 by mouth Luke s MG tablet 00:00: daily. Medica l [place] citalopram 2019-10 Yes 20mg QD Take [address] (CeleXA) 20 0-14 by mouth Luke s MG tablet 00:00: daily. Medica l [place] citalopram 2019-10 Yes 20mg QD Take [address] (CeleXA) 20 0-14 by mouth Luke s MG tablet 00:00: daily. Medica l [place] citalopram 2019-10 Yes 20mg QD Take [address] (CeleXA) 20 0-14 by mouth Luke s MG tablet 00:00: daily. Medica l [place] citalopram 2019-10 Yes 20mg QD Take [address] (CeleXA) 20 0-14 by mouth Luke s MG tablet 00:00: daily. Medica l [place] citalopram 2019-10 Yes 20mg QD Take [address] (CeleXA) 20 0-14 by mouth Luke s MG tablet 00:00: daily. Medica l [place] metoprolol 2018-10- No 25mg Q.5D Take 1 [...] a while due to financial issues atorvastati 2018-0 Yes [id number] 40mg Take 1 Univers n 40 mg [...] due to financial issues atorvastati 2019-0 Yes [id number] 40mg Take 1 Univers n 40 mg [...] while due to financial issues atorvastati Yes [id number] 40mg Take 1 Univers n 40 mg 6-24 tablet by ity of tablet 00:00: mouth at [place] 00 bedtime. Medical Branch lisinopril Yes 40mg QD Take [address] (PRINIVIL,Z 6-24 by mouth Luke s ESTRIL) 20 00:00: daily . Medi albert MG tablet 00 amLODIPine Yes 5mg Take 1 Unive rs [...] while due to financial issues atorvastati Yes [id number] 40mg Take 1 Univers n 40 mg [...] due to financial issues atorvastati 2019-0 Yes [id number] 40mg Take 1 Univers n 40 mg [...] due to financial issues atorvastati 2019-0 Yes [id number] 40mg Take 1 Univers n 40 mg [...] while due to financial issues atorvastati Yes [id number] 40mg Take 1 Univers n 40 mg [...] while due to financial issues atorvastati Yes [id number] 40mg Take 1 Univers n 40 mg 6-24 tablet by ity of tablet 00:00: mouth at [place] 00 bedtime. Medical Branch lisinopril Yes 40mg QD Take [address] (PRINIVIL,Z 6-24 by mouth Luke s ESTRIL) 20 00:00: daily . Medi albert MG tablet [place] lisinopril Yes 40mg QD Take [address] (PRINIVIL,Z 6-24 by mouth Luke s ESTRIL) 20 00:00: daily . Medi albert MG tablet Center lisinopril Yes 40mg QD Take [address] (PRINIVIL,Z 6-24 by mouth Luke s ESTRIL) 20 00:00: daily . Medi albert MG tablet 00 [place] lisinopril Yes 40mg QD Take [address] (PRINIVIL,Z 6-24 by mouth Luke s ESTRIL) 20 00:00: daily . Medi albert MG tablet [place] lisinopril 0 Yes 40mg QD Take [address] (PRINIVIL,Z 6-24 by mouth Luke s ESTRIL) 20 00:00: daily . Medi albert MG tablet 00 [place] lisinopril 20190 Yes 40mg QD Take [address] (PRINIVIL,Z 6-24 by mouth Luke s ESTRIL) 20 00:00: daily . Medi albert MG tablet 00 [place] traMADOL 50 0 Yes [id number] 50mg Take 1 Univers mg tablet 6-17 tablet by ity o f 00:00: mouth [place] 00 every 6 Medical (six) Branch hours as needed for Pain (scale 7-10). traMADOL 50 2018-0 Yes [id number] 50mg Take 1 Univers mg tablet 6-17 tablet by ity o f 00:00: mouth [place] 00 every 6 Medical (six) Branch hours as needed for Pain (scale 7-10). traMADOL 50 0 Yes [id number] 50mg Take 1 Univers mg tablet 6-17 tablet by ity o f 00:00: mouth [place] 00 every 6 Medical (six) Branch hours as needed for Pain (scale 7-10). traMADOL 50 2018-0 Yes [id number] 50mg Take 1 Univers mg tablet 6-17 tablet by ity o f 00:00: mouth [place] 00 every 6 Medical (six) Branch hours as needed for Pain (scale 7-10). traMADOL 50 2018-0 Yes [id number] 50mg Take 1 Univers mg tablet 6-17 tablet by ity o f 00:00: mouth [place] 00 every 6 Medical (six) Branch hours as needed for Pain (scale 7-10). traMADOL 50 2018-0 Yes [id number] 50mg Take 1 Univers mg tablet 6-17 tablet by ity o f 00:00: mouth [place] 00 every 6 Medical (six) Branch hours as needed for Pain (scale 7-10). traMADOL 50 2019-0 Yes [id number] 50mg Take 1 Univers mg tablet 6-17 tablet by ity o f 00:00: mouth [place] 00 every 6 Medical (six) Branch hours as needed for Pain (scale 7-10). traMADOL 50 2018-0 Yes [id number] 50mg Take 1 Univers mg tablet 6-17 [...] due to financial issues amoxicillin 2019-0 Yes [id number] 1{tbl} Take 1 Univers -clavulanat 6-13 tablet by ity of e 00:00: mouth 2 [place] (AUGMENTIN) 00 (two) Medical 875-125 mg times Branch per tablet daily. amoxicillin Yes [id number] 1{tbl} Take 1 Univers -clavulanat 6-13 tablet by ity of e 00:00: mouth 2 [place] (AUGMENTIN) 00 (two) Medical 875-125 mg times Branch per tablet daily. amoxicillin 2020- No [id number] 1{tbl} Take 1 Univers -clavulanat 6-13 09-05 [...] 00:00: mouth [place] 00 daily. Medical Branch Clopidogrel Clopidogrel No 1{table QD Clopidogre Bisulfate [...] 25 MG ER 25 MG Aspir-81 81 - 81 No 1{table QD Aspir-81 MG MG [...] ded} Base) MCG/ACT MCG/ACT MCG/ACT Aspir-81 81 - 81 No 1{table QD Aspir-81 MG MG [...] 25 MG ER 25 MG Aspir-81 81 - 81 No 1{table QD Aspir-81 MG MG [...] t_with_ HCl 850 MG a_meal} Aspir-81 81 Aspir- 81 No 1{table QD [...] HCl 10 MG t} HCl 10 MG Immunizations Ordered Immunization Filled Immunization Date Status Commen ts Source Name Name Prevnar 20 (PCV20) Prevnar 20 (PCV20) 2023-02-12 Completed [facility] 17:13:00 [facility] Prevnar 20 (PCV20) Prevnar 20 (PCV20) 2023-02-12 Completed [facility] 17:13:00 [facility] Prevnar 20 (PCV20) Prevnar 20 (PCV20) 2023-02-12 Completed [facility] 17:13:00 [facility] Prevnar 20 (PCV20) Prevnar 20 (PCV20) 2023-02-12 Completed [facility] 17:13:00 [facility] Vital Signs Vital Name Observation Time Observation Value Comments Source HEIGHT 2020-09-19 09:05:00 154.9 cm WEIGHT 2020-09-19 09:05:00 75.615 kg Systolic blood 2023-02-20 02:31:00 163 mm[Hg] [facility] Diastolic blood 2023-02-20 02:31:00 70 mm[Hg] Unive rsity of pressure [facility] Heart rate 2023-02-20 02:31:00 94 /min [facility] Respiratory rate 2023-02-20 02:31:00 22 /min Univ [facility] Oxygen saturation in 2023-02-20 02:31:00 96 /min [facility] blood by [place] [facility] Pulse oximetry Branch Body temperature 2023-02-19 20:52:00 37.11 [facility] height 2023-02-19 20:52:00 154.9 cm [facility] Body weight 2023-02-19 20:52:00 76.658 kg [facility] BMI 2023-02-19 20:52:00 31.93 kg/m2 [facility] height 2022-11-15 15:20:00 61 [in_i] [facility] weight 2022-11-15 15:20:00 175.3 [lb_av] [facility] temperature 2022-11-15 15:20:00 96.8 [degF] [facility] bmi 2022-11-15 15:20:00 33.12 kg/m2 [facility] oximetry 2022-11-15 15:20:00 95 % [facility] respiratory rate 2022-11-15 15:20:00 17 /min Comm on [facility] blood pressure 2022-11-15 15:20:00 138 mm[Hg] Common [facility] - systolic [facility] blood pressure 2022-11-15 15:20:00 78 mm[Hg] Common [facility] - diastolic [facility] height 2022-10-19 15:20:00 61 [in_i] [facility] weight 2022-10-19 15:20:00 174.0 [lb_av] [facility] temperature 2022-10-19 15:20:00 97.4 [degF] Common [facility] bmi 2022-10-19 15:20:00 32.87 kg/m2 Common [facility] oximetry 2022-10-19 15:20:00 97 % [facility] respiratory rate 2022-10-19 15:20:00 18 /min Comm on [facility] blood pressure 2022-10-19 15:20:00 138 mm[Hg] Common [facility] - systolic [facility] blood pressure 2022-10-19 15:20:00 70 mm[Hg] Common [facility] - diastolic [facility] height 2022-08-06 16:40:00 61 [in_i] Common [facility] weight 2022-08-06 16:40:00 167 [lb_av] [facility] temperature 2022-08-06 16:40:00 97.1 [degF] [facility] bmi 2022-08-06 16:40:00 31.55 kg/m2 [facility] oximetry 2022-08-06 16:40:00 98 % [facility] respiratory rate 2022-08-06 16:40:00 18 /min Comm on [facility] blood pressure 2022-08-06 16:40:00 148 mm[Hg] Common [facility] - systolic [facility] blood pressure 2022-08-06 16:40:00 78 mm[Hg] Common [facility] - diastolic [facility] height 2022-07-05 16:40:00 61 [in_i] Common [facility] weight 2022-07-05 16:40:00 169.0 [lb_av] Common [facility] temperature 2022-07-05 16:40:00 98.0 [degF] [facility] bmi 2022-07-05 16:40:00 31.93 kg/m2 [facility] oximetry 2022-07-05 16:40:00 96 % Common [facility] respiratory rate 2022-07-05 16:40:00 17 /min Comm on [facility] blood pressure 2022-07-05 16:40:00 137 mm[Hg] Common [facility] - systolic [facility] blood pressure 2022-07-05 16:40:00 70 mm[Hg] Common [facility] - diastolic [facility] height 2022-04-23 11:20:00 61 [in_i] Common [facility] weight 2022-04-23 11:20:00 165.3 [lb_av] [facility] temperature 2022-04-23 11:20:00 97.3 [degF] [facility] bmi 2022-04-23 11:20:00 31.23 kg/m2 [facility] oximetry 2022-04-23 11:20:00 96 % [facility] respiratory rate 2022-04-23 11:20:00 17 /min Comm on [facility] blood pressure 2022-04-23 11:20:00 138 mm[Hg] Common [facility] - systolic [facility] blood pressure 2022-04-23 11:20:00 77 mm[Hg] Common [facility] diastolic [facility] height 2022-01-04 13:50:00 61 [in_i] Common [facility] weight 2022-01-04 13:50:00 166.1 [lb_av] [facility] temperature 2022-01-04 13:50:00 97.5 [degF] Common [facility] bmi 2022-01-04 13:50:00 31.38 kg/m2 Common S [facility] oximetry 2022-01-04 13:50:00 97 % [facility] respiratory rate 2022-01-04 13:50:00 16 /min Comm on [facility] blood pressure 2022-01-04 13:50:00 142 mm[Hg] [facility] - [facility] blood pressure 2022-01-04 13:50:00 75 mm[Hg] [facility] - diastolic [facility] height 2022-01-04 14:00:00 61 [in_i] Common S [facility]irit [facility] weight 2022-01-04 14:00:00 166.1 [lb_av] Common [facility] temperature 2022-01-04 14:00:00 97.5 [degF] Common S pirit [facility] bmi 2022-01-04 14:00:00 31.38 kg/m2 Common S pirit [facility] oximetry 2022-01-04 14:00:00 97 % [facility] respiratory rate 2022-01-04 14:00:00 16 /min Comm on [facility] blood pressure 2022-01-04 14:00:00 142 mm[Hg] Common [facility] - systolic [facility] blood pressure 2022-01-04 14:00:00 75 mm[Hg] [facility] - diastolic [facility] height 2021-09-28 09:30:00 61 [in_i] [facility] 2021-09-28 09:30:00 162.3 [lb_av] [facility] temperature 2021-09-28 09:30:00 97.5 [degF] Common S pirit [facility] bmi 2021-09-28 09:30:00 30.66 kg/m2 Common S [facility]irit [facility] oximetry 2021-09-28 09:30:00 97 % Common S [facility] respiratory rate 2021-09-28 09:30:00 16 /min Comm on [facility] blood pressure 2021-09-28 09:30:00 152 mm[Hg] Common [facility] - systolic [facility] blood pressure 2021-09-28 09:30:00 72 mm[Hg] [facility] - diastolic [facility] height 2021-08-25 16:00:00 61 [in_i] Common [facility] - [facility] weight 2021-08-25 16:00:00 167 [lb_av] Common [facility] - [facility] temperature 2021-08-25 16:00:00 97.7 [degF] Common [facility] - [facility] bmi 2021-08-25 16:00:00 31.55 kg/m2 Common [facility] - [facility] oximetry 2021-08-25 16:00:00 96 % Common [facility] blood pressure 2021-08-25 16:00:00 140 mm[Hg] [facility] - systolic [facility] blood pressure 2021-08-25 16:00:00 78 mm[Hg] [facility] - diastolic [facility] height 2021-07-26 09:40:00 61 [in_i] Common [facility] - [facility] weight 2021-07-26 09:40:00 164.4 [lb_av] Common [facility] temperature 2021-07-26 09:40:00 97.4 [degF] Common S pirit [facility] bmi 2021-07-26 09:40:00 31.06 kg/m2 Common S pirit [facility] oximetry 2021-07-26 09:40:00 97 % Common S pirit [facility] respiratory rate 2021-07-26 09:40:00 17 /min Comm on [facility] blood pressure 2021-07-26 09:40:00 139 mm[Hg] [facility] - systolic [facility] blood pressure 2021-07-26 09:40:00 72 mm[Hg] [facility] - diastolic [facility] height 2021-06-28 08:50:00 61 [in_i] Common S [facility]irit [facility] weight 2021-06-28 08:50:00 159.1 [lb_av] Common [facility] temperature 2021-06-28 08:50:00 97.2 [degF] Common [facility] - [facility] bmi 2021-06-28 08:50:00 30.06 kg/m2 Common [facility] - [facility] oximetry 2021-06-28 08:50:00 98 % Common [facility] - [facility] respiratory rate 2021-06-28 08:50:00 18 /min Comm on [facility] blood pressure 2021-06-28 08:50:00 158 mm[Hg] [facility] - systolic [facility] blood pressure 2021-06-28 08:50:00 75 mm[Hg] [facility] - diastolic [facility] Systolic blood 2021-06-20 20:23:00 148 mm[Hg] [facility] Diastolic blood 2021-06-20 20:23:00 66 mm[Hg] [facility] Heart rate 2021-06-20 20:23:00 76 /min [facility] Body height 2021-06-20 20:23:00 154.9 cm [facility] Body weight 2021-06-20 20:23:00 74.844 kg [facility] BMI 2021-06-20 20:23:00 31.18 kg/m2 [facility] Systolic blood 2021-06-18 16:05:00 184 mm[Hg] [facility] Diastolic blood 2021-06-18 16:05:00 60 mm[Hg] [facility] Heart rate 2021-06-18 15:10:00 77 /min [facility] Body temperature 2021-06-18 15:10:00 37.44 [place] [facility] Respiratory rate 2021-06-18 15:10:00 20 /min [facility] Body height 2021-06-18 15:10:00 154.9 cm [facility] Body weight 2021-06-18 15:10:00 74.844 kg [facility] BMI 2021-06-18 15:10:00 31.18 kg/m2 Universi ty [facility] Oxygen saturation in 2021-06-18 15:10:00 98 /min University of Arterial blood by [facility] Pulse oximetry Branch Systolic blood 2021-06-18 16:05:00 184 mm[Hg] Univer sity of pressure [facility] Diastolic blood 2021-06-18 16:05:00 60 mm[Hg] Unive rsity of pressure [facility] Heart rate 2021-06-18 15:10:00 77 /min [facility] Body temperature 2021-06-18 15:10:00 37.44 [place] [facility] Respiratory rate 2021-06-18 15:10:00 20 /min [facility] height 2021-06-18 15:10:00 154.9 cm Universi ty [facility] Body weight 2021-06-18 15:10:00 74.844 kg Universi ty [facility] BMI 2021-06-18 15:10:00 31.18 kg/m2 [facility] ty [facility] Oxygen saturation in 2021-06-18 15:10:00 98 /min [facility] Arterial blood by [facility] Pulse oximetry Branch HEIGHT 2020-10-03 11:00:00 154.9 cm WEIGHT 2020-10-03 11:00:00 75.297 kg HEIGHT 2020-10-03 11:00:00 154.9 cm WEIGHT 2020-10-03 11:00:00 75.297 kg HEIGHT 2020-09-19 09:05:00 154.9 cm WEIGHT 2020-09-19 09:05:00 75.615 kg HEIGHT 2020-09-13 13:29:00 154.9 cm WEIGHT 2020-09-13 13:29:00 75.297 kg HEIGHT 2020-09-13 13:29:00 154.9 cm WEIGHT 2020-09-13 13:29:00 75.297 kg Systolic blood 2020-10-03 11:00:00 171 mm[Hg] [facility] Diastolic blood 2020-10-03 11:00:00 71 mm[Hg] [facility] S [facility] Heart rate 2020-10-03 11:00:00 78 /min [facility] Body temperature 2020-10-03 11:00:00 37 [facility] Respiratory rate 2020-10-03 11:00:00 18 /min [facility] Body height 2020-10-03 11:00:00 154.9 cm [facility] Body weight 2020-10-03 11:00:00 75.297 kg [facility] BMI 2020-10-03 11:00:00 31.37 kg/m2 [facility] Oxygen saturation in 2020-10-03 11:00:00 98 /min room air [facility] Arterial blood by Medical Ce nter Pulse oximetry Procedures Procedure Date / Time Performing Clinician Source Performed EKG-12 LEAD 2023-02-20 01:48:08 Alden Isaacs [facility] URINALYSIS 2023-02-20 00:24:00 Alden Isaacs [facility] LIPASE 2023-02-19 22:43:00 Alden Isaacs [facility] TROPONIN I 2023-02-19 22:43:00 Alden Isaacs [facility] COMP. METABOLIC PANEL 2023-02-19 22:43:00 Alden Isaacs [facility] ([id number]) [facility] CBC WITH DIFF 2023-02-19 22:43:00 Alden Isaacs [facility] N-TERMINAL PRO-BNP 2023-02-19 22:43:00 Alden Isaacs [facility] NOTICE OF PRIVACY 2023-02-19 22:08:23 Doctor Unassigned, No [facility] PRACTICES Name [facility] ASSIGNMENT OF BENEFITS 2023-02-19 22:07:28 Doctor Unassigned, No [facility] Name [facility] CONSENT/REFUSAL FOR 2023-02-19 20:48:43 Doctor Unassigned, No [facility] DIAGNOSIS AND TREATMENT Name [facility] REFERRAL- 2021-04-06 05:01:00 Doctor Unassigned, No [facility] REQUEST/RESPONSE Name [facility] POCT-GLUCOSE METER 2020-09-20 11:36:00 Juan Gallardo [facility] POCT-GLUCOSE METER 2020-09-20 07:33:00 Juan Gallardo [facility] CBC W/PLT COUNT & AUTO 2020-09-20 00:18:00 [facility] BASIC METABOLIC PANEL 2020-09-20 00:18[facility]00 [facility] 2020-09-20 00:18:00 [place] 2020-09-20 00:18:00 [place], [facility] CALCIUM, IONIZED 2020-09-20 00:18:00 Uk, [facility] TISSUE EXAM 2020-09-19 14:54:00 [place], [facility] POCT-ACT 2020-09-19 14:15:00 [facility] POCT-ACT 2020-09-19 14:03:00 [facility] ENDARTERECTOMY,CAROTID 2020-09-19 12:52:00 Paulina [facility] PROTHROMBIN TIME/INR 2020-09-19 10:22:00 Mitali [facility] APTT 2020-09-19 10:22:00 [facility] POCT-GLUCOSE METER 2020-09-19 09:06:00 [facility] CBC W/PLT COUNT & AUTO 2020-09-13 14:52:00 [facility] DIFFERENTIAL [facility] BASIC METABOLIC PANEL 2020-09-13 14:52:00 [facility] (7) [facility] PROTHROMBIN TIME/INR 2020-09-13 14:52:00 [facility] ABORH, MANUAL 2020-09-13 14:52:00 [facility] ECG 12-LEAD 2020-09-13 14:37:40 Unknown, Hl7 Doctor [facility] Plan of Care Planned Activity Planned Date Details Comments Source Future Scheduled 2023-06-14 Influenza Vaccine [facility] Test 00:00:00 (Season Ended) [code = Medic al Center Influenza Vaccine (Season Ended)] Future Scheduled 2023-06-[address] [facility] Test 00:00:00 (Season Ended) [code = Medic al Center INFLUENZA VACCINE (Season Ended)] Future Scheduled 2023-06-[address] [facility] Test 00:00:00 (Season Ended) [code = Medic al Center Influenza Vaccine (Season Ended)] Future Scheduled 2022-10-[address] [facility] Test 00:00:00 (12+) [code = Medical Center DEPRESSION SCREENING (12+)] Future Scheduled 2022-10-14 FALLS RISK SCREENING [facility] Test 00:00:00 [code = FALLS RISK Medical C enter SCREENING] Future Scheduled 2022-10-[address] [facility] Test 00:00:00 (12+) [code = Medical Center DEPRESSION SCREENING (12+)] Future Scheduled 2022-10-14 FALLS RISK SCREENING [facility] Test 00:00:00 [code = FALLS RISK Medical C enter SCREENING] Future Scheduled 2022-10-[address] [...] Cessation Counseling and Screening (12+)] Future Scheduled 2021-10-[address] [facility] Test 00:00:00 Counseling and Medical Cente r Screening (12+) [code = Tobacco Cessation Counseling and Screening (12+)] Future Scheduled 2021-10-[address] [...] breast Medical C enter (procedure) [code = 891673763] Future Scheduled 1951 CT Colonography (combo) [facility] Test 00:00:00 [code = CT Colonography [facility] (combo)] Future Scheduled 1951 Screening for malignant [facility] Test 00:00:00 neoplasm of colon Medical Ce nter (procedure) [code = 657211832] Future Scheduled 1951 Screening for malignant [facility] Test 00:00:00 neoplasm of colon Medical Ce nter (procedure) [code = 499615576] Future Scheduled 1951 DXA SCAN [code = DXA [facility] Test 00:00:00 SCAN] [facility] Future Scheduled 1951 Screening for malignant [facility] Test 00:00:00 neoplasm of colon Medical Ce nter (procedure) [code = 728273863] Future Scheduled 1951 Screening for malignant [facility] Test 00:00:00 neoplasm of colon Medical Ce nter (procedure) [code = 054426491] Future Scheduled 1951 Sigmoidoscopy [facility]code [facility] Future Scheduled 1951 Screening for malignant [facility] Test 00:00:00 neoplasm of breast Medical C enter (procedure) [code = 554071415] Future Scheduled 1951 Screening for malignant [facility] Test 00:00:00 neoplasm of colon Medical Ce nter (procedure) [code = 985032029] Future Scheduled 1951 Screening for malignant [facility] Test 00:00:00 neoplasm of breast Medical C enter (procedure) [code = 911347781] Future Scheduled 1951 CT Colonography (combo) [facility] Test 00:00:00 [code = CT Colonography [facility] (combo)] Future Scheduled 1951 Screening for malignant [facility] Test 00:00:00 neoplasm of colon Medical Ce nter (procedure) [code = 926049237] Future Scheduled 1951 Screening for malignant [facility] Test 00:00:00 neoplasm of colon Medical Ce nter (procedure) [code = 041452720] Future Scheduled 1951 DXA SCAN [code = DXA [facility] Test 00:00:00 SCAN] [facility] Future Scheduled 1951 Screening for malignant [facility] Test 00:00:00 neoplasm of colon Medical Ce nter (procedure) [code = 683002678] Future Scheduled 1951 Screening for malignant [facility] Test 00:00:00 neoplasm of colon Medical Ce nter (procedure) [code = 107390369] Future Scheduled 1951 Sigmoidoscopy [facility]code [facility] Future Scheduled 1951 Screening for malignant [facility] Test 00:00:00 neoplasm of breast Medical C enter (procedure) [code = 310324117] Future Scheduled 1951 CT Colonography (combo) [facility] Test 00:00:00 [code = CT Colonography [facility] (combo)] Future Scheduled 1951 Screening for malignant [facility] Test 00:00:00 neoplasm of colon Medical Ce nter (procedure) [code = 369689760] Future Scheduled 1951 Screening for malignant [facility] Test 00:00:00 neoplasm of colon Medical Ce nter (procedure) [code = 055129833] Future Scheduled 1951 DXA SCAN [code = DXA [facility] Test 00:00:00 SCAN] [facility] Future Scheduled 1951 Screening for malignant [facility] Test 00:00:00 neoplasm of colon Medical Ce nter (procedure) [code = 942007508] Future Scheduled 1951 Screening for malignant [facility] Test 00:00:00 neoplasm of colon Medical Ce nter (procedure) [code = 417672887] Future Scheduled 1951 Sigmoidoscopy [facility]code [facility]:00 S[facility]oscopy] [facility] Future Scheduled 1951 Screening for malignant [facility] Test 00:00:00 neoplasm of breast Medical C enter (procedure) [code = 946985440] Future Scheduled 1951 CT Colonography (combo) [facility] Test 00:00:00 [code = CT Colonography [facility] (combo)] Future Scheduled 1951 Screening for malignant [facility] Test 00:00:00 neoplasm of colon Medical Ce nter (procedure) [code = 503488454] Future Scheduled 1951 Screening for malignant [facility] Test 00:00:00 neoplasm of colon Medical Ce nter (procedure) [code = 349084740] Future Scheduled 1951 DXA SCAN [code = DXA [facility] Test 00:00:00 SCAN] [facility] Future Scheduled 1951 Screening for malignant [facility] Test 00:00:00 neoplasm of colon Medical Ce nter (procedure) [code = 750618692] Future Scheduled 1951 Screening for malignant [facility] Test 00:00:00 neoplasm of colon Medical Ce nter (procedure) [code = 056867541] Future Scheduled 1951 Sigmoidoscopy [facility]code [facility]:00 Sigmoidoscopy] [facility] Future Scheduled 1951 Screening for malignant [facility] Test 00:00:00 neoplasm of breast Medical C enter (procedure) [code = 129611394] Future Scheduled 1951 CT Colonography (combo) [facility] Test 00:00:00 [code = CT Colonography [facility] (combo)] Future Scheduled 1951 Screening for malignant [facility] Test 00:00:00 neoplasm of colon Medical Ce nter (procedure) [code = 092056455] Future Scheduled 1951 Screening for malignant [facility] Test 00:00:00 neoplasm of colon Medical Ce nter (procedure) [code = 225794655] Future Scheduled 1951 DXA SCAN [code = DXA [facility] Test 00:00:00 SCAN] [facility] Future Scheduled 1951 Screening for malignant [facility] Test 00:00:00 neoplasm of colon Medical Ce nter (procedure) [code = 975373036] Future Scheduled 1951 Screening for malignant [facility] Test 00:00:00 neoplasm of colon Medical Ce nter (procedure) [code = 418824575] Future Scheduled 1951 Sigmoidoscopy [code = [facility] Future Scheduled 1951 Screening for malignant [facility] Test 00:00:00 neoplasm of breast Medical C enter (procedure) [code = 182078388] Future Scheduled 1951 Screening for malignant [facility] Test 00:00:00 neoplasm of colon Medical Ce nter (procedure) [code = 473862902] Encounters Start End Encounter Admission Attending Care Care Encounter Source Date/Time Date/Time Type Type Clinicians Facility Department ID 2022-11-14 Outpatient [place], STLMLC STLMLC [id number] Common 13:33:00 Carmine [id number] [facility] 2022-08-02 Outpatient Lao, STLMLC STLMLC [id number] Common 11:32:02 Carmine [id number] [facility] 2022-04-23 Outpatient Lao, STLMLC STLMLC [id number] Common 11:04:01 Carmine [facility] 2022-01-03 Outpatient Lao, STLMLC STLMLC [id number] Common 10:05:03 Carmine [facility] 2022-01-01 Outpatient Lao, STLMLC STLMLC [id number] Common 13:11:04 Carmine [facility] 2021-11-08 Outpatient Lao, STLMLC STLMLC [id number] Common 14:15:27 Carmine [id number] [facility] 2021-11-08 Outpatient Lao, STLMLC STLMLC [id number] Common 14:10:48 Carmine [id number] [facility] 2021-11-08 Outpatient Lao, STLMLC STLMLC [id number] Common 14:04:07 Carmine [id number] [facility] 2021-11-08 Outpatient STLMLC STLMLC [id number] Common 13:49:07 [id number] [facility] 2021-08-14 Emergency [facility] [id number] Univers 20:32:56 [facility] 2021 Inpatient HUSSEIN GALLARDO Surgery [id number] [facility] 18:22:15 [facility] 2023-02-19 2023-02-19 [facility] [id number] Univers 15:55:00 21:46:00 Alden BOWERS [id number] i shi ARDON [id number] [facility] [id number] [place] [id number] Branch 2023-02-19 2023-02-19 Emergency X SHITAL, [facility] ERT [id number] Univers 15:55:00 21:46:00 ALDEN schulz [facility] 2022-11-16 2022-11-16 (TEL) STLMLC STLMLC [id number] Co mmon 00:00:00 00:00:00 [facility] 2022-11-15 2022-11-15 OFFICE STLMLC STLMLC [id number] Co mmon 00:00:00 00:00:00 VISIT Spirit ESTAB PT - CHI LEVEL 4 [facility] 2022-11-15 2022-11-15 (TEL) STLMLC STLMLC [id number] Co mmon 00:00:00 00:00:00 [facility] 2022-10-19 2022-10-19 OFFICE STLMLC STLMLC [id number] Co mmon 00:00:00 00:00:00 VISIT EST Spir it PT LEVEL 3 - CHI [facility] 2022-10-17 2022-10-17 (TEL) STLMLC STLMLC [id number] Co mmon 00:00:00 00:00:00 [facility] 2022-09-04 2022-09-04 (TEL) STLMLC STLMLC [id number] Co mmon 00:00:00 00:00:00 [facility] 2022-09-04 2022-09-04 (TEL) STLMLC STLMLC [id number] Co mmon 00:00:00 00:00:00 [facility] 2022-08-20 2022-08-20 (TEL) STLMLC STLMLC [id number] Co mmon 00:00:00 00:00:00 [facility] 2022-08-15 2022-08-15 (TEL) STLMLC STLMLC [id number] Co mmon 00:00:00 00:00:00 [facility] 2022-08-06 2022-08-06 OFFICE STLMLC STLMLC [id number] Co mmon 00:00:00 00:00:00 VISIT [facility] PT - CHI LEVEL 4 [facility] 2022-08-06 2022-08-06 (TEL) STLMLC STLMLC [id number] Co mmon 00:00:00 00:00:00 [facility] 2022-07-17 2022-07-17 (TEL) STLMLC STLMLC [id number] Co mmon 00:00:00 00:00:00 [facility] 2022-07-10 2022-07-10 (TEL) STLMLC STLMLC [id number] Co mmon 00:00:00 00:00:00 [facility] 2022-07-05 2022-07-05 (TEL) STLMLC STLMLC [id number] Co mmon 00:00:00 00:00:00 [facility] 2022-07-05 2022-07-05 (HOSP F/U) STLMLC STLMLC [id number] Common 00:00:00 00:00:00 [facility] 2022-07-02 2022-07-02 (TEL) STLMLC STLMLC [id number] Co mmon 00:00:00 00:00:00 [facility] 2022-04-23 2022-04-23 OFFICE STLMLC STLMLC [id number] Co mmon 00:00:00 00:00:00 VISIT [facility] PT - CHI LEVEL 4 [facility] 2022-04-20 2022-04-20 (TEL) STLMLC STLMLC [id number] Co mmon 00:00:00 00:00:00 [facility] [facility] 2022-01-04 2022-01-04 OFFICE STLMLC STLMLC [id number] Co mmon 00:00:00 00:00:00 VISIT [facility] PT - CHI LEVEL 4 [facility] 2022-01-04 2022-01-04 SUB ANNUAL STLMLC STLMLC [id number] Common 00:00:00 00:00:00 MCR Spirit WELLNESS - CHI VISIT [facility] 2021-12-21 2021-12-21 (TEL) STLMLC STLMLC [id number] Co mmon 00:00:00 00:00:00 [facility] 2021-11-20 2021-11-20 (TEL) STLMLC STLMLC [id number] Co mmon 00:00:00 00:00:00 [facility] 2021-10-30 2021-10-30 (TEL) STLMLC STLMLC [id number] Co mmon 00:00:00 00:00:00 [facility] 2021-09-28 2021-09-28 OFFICE STLMLC STLMLC [id number] Co mmon 00:00:00 00:00:00 VISIT [facility] PT - CHI LEVEL 4 [facility] 2021-08-31 2021-08-31 (TEL) STLMLC STLMLC [id number] Co mmon 00:00:00 00:00:00 [facility] 2021-08-25 2021-08-25 OFFICE STLMLC STLMLC [id number] Co mmon 00:00:00 00:00:00 VISIT EST Spir it PT LEVEL 3 - CHI [facility] 2021-08-22 2021-08-22 (TEL) STLMLC STLMLC [id number] Co mmon 00:00:00 00:00:00 [facility] 2021-08-07 2021-08-07 (TEL) STLMLC STLMLC [id number] Co mmon 00:00:00 00:00:00 [facility] 2021-07-26 2021-07-26 OFFICE STLMLC STLMLC [id number] Co mmon 00:00:00 00:00:00 VISIT [facility] PT - CHI LEVEL 4 [facility] 2021-07-23 2021-07-23 (TEL) STLMLC STLMLC [id number] Co mmon 00:00:00 00:00:00 [facility] 2021 2021 (TEL) STLMLC STLMLC [id number] Co mmon 00:00:00 00:00:00 [facility] 2021-06-28 2021-06-28 (TEL) STLMLC STLMLC [id number] Co mmon 00:00:00 00:00:00 [facility] 2021-06-28 2021-06-28 OFFICE STLMLC STLMLC [id number] Co mmon 00:00:00 00:00:00 VISIT NEW Spir it PT LEVEL 4 - [facility] 2021-06-26 2021-06-26 Outpatient R PRIYANK [facility] [id number] Univers 13:45:00 13:45:00 UTE schulz [facility] 2021-06-20 2021-06-20 [id number] Univers 15:14:01 15:29:01 Visit Contractors_AID 350.1.13.10 it y of [place] 4.2.7.2.686 Lorenzo as Yuri?Blea [phone] Fl jose shipley[address] Office [facility] 2021-06-20 2021-06-20 Outpatient R RADHA [facility] [id number] Univers 15:00:00 15:00:00 CINTHIA schulz [facility] 2021-06-20 2021-06-20 [facility]phone [facility] [id number] Univers 00:00:00 00:00:00 Cinthia Ad Jodange 350.1.13.10 it y of [place] 4.2.7.2.686 Lorenzo as Yuri?Blea [phone] Fl jose felix [address] [place] [address] Office [facility] 2021-06-19 2021-06-19 Telephone Priyank [facility] [id number] Univers 00:00:00 00:00:00 Ute Jodange 350.1.13.10 it y of [place] 4.2.7.2.686 Lorenzo as Yuri?Blea [phone] Fl jose shipley[address] Office [facility] 2021-06-18 2021-06-18 Emergency Yaw [facility] [id number] Univers 10:12:00 11:17:00 Carol Ann Bowers 350.1.13.10 ity of [place] 4.2.7.2.686 [facility] [phone] [facility] [address] 2021-06-18 2021-06-18 Emergency [facility], [facility] [id number] Univers 10:12:00 11:17:00 Carol Ann Bowers 350.1.13.10 ity of [place] 4.2.7.2.686 [facility] [phone] [facility] [address] 2021-04-26 2021-04-26 Letter ONEAL Barber [id number] Univers 00:00:00 00:00:00 (Out) Charlette JOHNSY 350.1.13.10 i ty of [facility] 4.2.7.2.686 Lorenzo as [phone] [facility] [address] 2021-04-06 2021-04-06 Orders Doctor NO 1.2.840.114 [id number] Univers 00:00:00 00:00:00 Only Unassigned, HARVEY 350.1.13.10 ity of [place] [facility] 4.2.7.2.686 Lorenzo as [phone] [facility] [address] 2020-10-03 2020-10-04 Office [facility] [id number] 10:58:57 06:55:34 Visit [facility] 2020-10-03 2020-10-03 Outpatient [facility] [id number] SLE 00:00:00 00:00:00 JUAN 2020-09-19 2020-09-20 Hospital [facility] [id number] 08:52:00 16:45:00 Encounter [facility] 2020-09-19 2020-09-19 [id number] 13:06:00 15:11:00 Event Maribell Yepez [facility] 2020-09-19 2020-09-19 Surgery [facility] [id number] 11:00:00 14:00:00 [facility] 2020-09-16 2020-09-16 Zander Gallardo [facility] [id number] 00:00:00 00:00:00 [facility] 2020-09-13 2020-09-13 Office CHIRAG Gallardo [facility] [id number] 14:23:27 14:53:27 Visit [facility] 2020-09-13 2020-09-13 Outpatient [facility] [id number] [facility] 14:23:27 14:23:27 JUAN 2020-09-13 2020-09-13 Orders [facility] [id number] 00:00:00 00:00:00 [facility] 2019-12-02 2019-12-02 Outpatient Ige-Madyson VFP VF [id number] [facility] 07:29:00 07:29:00 _J_ [id number] [facility] e Results Test Description Test Time Test Comments Results Result Comments Source TROPONIN I 2023-02-19 23:50:59 Test Item Value Reference Range Interpretation Comme nts TROPONIN I (test code = 7479709543) 0.002 ng/mL <=0.034 GABRIELA (test code = [...] biotin. Lab Interpretation (test code = Normal 79749-1) [id number] 23:47:38 Test Item Value Reference Range Interpretation Comments NT-proBNP (test code = 81 pg/mL <=125 [id number]) GABRIELA (test code = GABRIELA) Biotin has been reported to cause a negative bias, interpret results relative to patient's use of biotin. Lab Interpretation (test Normal code = 03357-7) [facility]. METABOLIC PANEL (17255)2023-02-19 23:41:37 Test Item Value Reference Range Interpretation Comments NA (test code = 137 mmol/L 135-145 9906521062) K (test code = 4.3 mmol/L 3.5-5.0 2050879796) CL (test code = 100 mmol/L 98-108 7915304419) CO2 TOTAL (test code = 27 mmol/L 23-31 5432429543) AGAP (test code = 10 2-16 7039117215) BUN (test code = 14 mg/dL 7-23 0655269865) GLUCOSE (test code = 196 mg/dL 70-110 H 0924212163) CREATININE (test code = 0.65 mg/dL 0.50-1.04 0217214801) TOTAL BILI (test code = 1.0 mg/dL 0.1-1.5 4453788595) CALCIUM (test code = 8.9 mg/dL 8.6-10.6 1577062779) T PROTEIN (test code = 7.9 g/dL 6.3-8.2 3068884351) ALBUMIN (test code = 3.8 g/dL 3.5-5.0 4418448087) ALK PHOS (test code = 89 U/L 34-122 3006290572) ALTv (test code = 33 U/L 5-35 1742-6) AST(SGOT) (test code = 39 U/L 13-40 1360761032) eGFR (test code = 89.9 mL/min/1.73m2 7338514656) GABRIELA (test code = GABRIELA) Association of [...] tests). Lab Interpretation Abnormal (test code = 02933-7) [facility] Test Item Value Reference Range Interpretation Comments LIPASE (test code = 9832642320) 111 U/L 0-220 Lab Interpretation (test code = Normal 78135-3) [facility] WITH [id number] 23:32:16 Test Item Value Reference Range Interpretation Comments WBC (test code = 12.07 See_Comment H [Automated 7715-2) message] The sy stem which generated this result transmitted reference range : 4.30 - 11.10 10*3/?L. The reference range was not used to interpret this result as normal/abnormal . RBC (test code = 4.49 See_Comment [Automated 235-8) message] The sy stem which generated this [...] RDW-SD (test code = 48.6 fL 39.0-49.9 67294-7) RDW-CV (test code = 12.9 % 12.0-15.5 788-0) PLT (test code = 236 See_Comment [Automated 777-3) message] The sy stem which generated this result transmitted reference range : 166 - 358 10*3/ ?L. The reference r rita was not used to interpret this result as normal/abnormal . MPV (test code = 10.9 fL 9.5-12.9 55214-2) NRBC/100 WBC (test 0.0 See_Comment [Automat ed code = 6104584548) message] The system which generated this result transmitted reference range : 0.0 - 10.0 /100 WBCs. The refer ence range was not u sed to interpret th is result as normal/abnormal . NRBC x10^3 (test code See_Comment [Auto mated = 5742385311) message] The s ystem which generated this result transmitted reference range : 10*3/?L. The reference range was not used to interpret this result as normal/abnormal . GRAN MAT (NEUT) % 66.4 % (test code = 770-8) IMM GRAN % (test code 0.50 % = 0261813009) LYMPH % (test code = 22.9 % 736-9) MONO % (test code = 7.9 % 5905-5) EOS % (test code = 1.6 % 713-8) BASO % (test code = 0.7 % 706-2) GRAN MAT x10^3(ANC) 8.03 10*3/uL 1.88-7.09 H (test code = 8234135018) IMM GRAN x10^3 (test 0.06 10*3/uL 0.00-0.06 code = 8274668765) LYMPH x10^3 (test code 2.76 10*3/uL 1.32-3.29 = 731-0) MONO x10^3 (test code 0.95 10*3/uL 0.33-0.92 H = 742-7) EOS x10^3 (test code = 0.19 10*3/uL 0.03-0.39 711-2) BASO x10^3 (test code 0.08 10*3/uL 0.01-0.07 H = 704-7) Lab Interpretation Abnormal (test code = 95074-2) [facility] FERRITIN [id number] 00:00:00 Test Item Value Reference Range Interpretation Comments % SATURATION (test 5 % (calc) See_Comment L [Automat ed message] code = 2502-3) The system [employer] generated this result transmit zoë reference range : 16-45 % (calc). The reference range was not used to interpret this result as normal/abnormal . FERRITIN (test code 4 ng/mL See_Comment L [Automa zoë message] = 2276-4) The system [facility] generated this result transmit zoë reference range [...] d message] code = 2498-4) The system [employer] generated this result transmit zoë reference range [...] this result transmit zoë reference range : 6581-4278 cells /uL. The reference r rita was not used to interpret this result as normal/abnormal . BASOPHILS (test code 0.9 % N = 706-2) EOSINOPHILS (test 6.0 % N code = 713-8) HEMATOCRIT (test 26.5 % See_Comment L [Automated message] code = 4544-3) The system [facility] generated this result transmit zoë reference range : 35.0-45.0 %. Th e reference range was not used to interpret this result as normal/abnormal . HEMOGLOBIN (test 7.6 g/dL See_Comment L [Automated message] code = 718-7) The system [facility] generated this result transmit zoë reference range : 11.7-15.5 g/dL. The reference range was not used to interpret this result as normal/abnormal . LYMPHOCYTES (test 25.4 % N code = 736-9) MCH (test code = 23.2 pg See_Comment L [Automated message] 785-6) The system [employer] generated this result transmit zoë reference range : 27.0-33.0 pg. T he reference range was not used to interpret this result as normal/abnormal . MCHC (test code = 28.7 g/dL See_Comment L [Automate d message] 786-4) The system [facility] h generated this result transmit zoë reference range : 32.0-36.0 g/dL. The reference range was not used to interpret this result as normal/abnormal . MCV (test code = 81.0 fL See_Comment N [Automated message] 787-2) The system [facility] h generated this result transmit zoë reference range : 80.0-100.0 fL. The reference range was not used to interpret this result as normal/abnormal . MONOCYTES (test code 8.6 % N = 5905-5) MPV (test code = 9.6 fL See_Comment N [Automated message] 776-5) The system [employer] generated this result transmit zoë reference range : 7.5-12.5 fL. Th e reference range was not used to interpret this result as normal/abnormal . NEUTROPHILS (test 59.1 % N code = 770-8) PLATELET COUNT (test 321 See_Comment N [Autom ated message] code = 777-3) Thousand/uL The system [employer] generated this result transmit zoë reference range : 140-400 Thousan d/uL. The reference r rita was not used to interpret this result as normal/abnormal . RDW (test code = 14.7 % See_Comment N [Automated message] 788-0) The system [employer] generated this result transmit zoë reference range [...] interpret this result as normal/abnormal . PATHOLOGY [id number] 00:00:00PATHOLOGISTCONSULT, SPECIMEN A 2021-07-22 00:00:00A COMMENTA DIAGNOSISA MICRO DESCRIPTIONA SOURCELipid Panel With LDL/HDL [id number] 00:00:00 Test Item Value Reference Range Interpretation Comments Cholesterol, Total 188 mg/dL See_Comment [Automat ed message] (test code = 2093-3) The sys tem which generated this result transmitted ref erence range: 100-199 mg/dL. The reference r rita was not used to interpret this result as normal/abnor mal. HDL Cholesterol (test 52 mg/dL See_Comment [Auto mated message] code = 2085-9) The system [employer] generated this result transmitted ref erence range: >39 mg/d L. The reference range was not used to int erpret this result as normal/abnormal . Triglycerides (test 85 mg/dL See_Comment [Automa zoë message] code = 2571-8) The system [employer] generated this result transmitted ref erence range: 0-149 mg /dL. The reference r rita was not used to interpret this result as normal/abnor mal. Microalbumin/Creat Ratio, Random [id number] 00:00:00 Test Item Value Reference Range Interpretation Comments Creatinine, Urine 103.2 mg/dL Not Estab. mg/dL (test code = 2161-8) Alb/Creat Ratio 28 mg/g creat See_Comment [Automated message] (test code = The system [facility] Offees 51329-1) generated this result transmitted ref erence range: 0-29 mg/ g creat. The refe rence range was not u sed to interpret this result as normal/abnor mal. Albumin, Urine 29.2 ug/mL Not Estab. ug/mL (test code = 84078-5) Hemoglobin [id number] 00:00:00 Test Item Value Reference Range Interpretation Comments Hemoglobin A1c (test 7.9 % See_Comment H [Autom ated message] The code = 4548-4) system which generated this result tra nsmitted reference range : 4.8-5.6 %. The referenc e range was not used to interpret this result as normal/abnormal . Comp. Metabolic Panel (14) (CMP)2021-07-19 00:00:00 Test Item Value Reference Range Interpretation Comments A/G Ratio (test code 0.9 1.2-2.2 L = 1759-0) Albumin (test code = 3.6 g/dL See_Comment L [Autom ated message] 1751-7) The system [facility] generated this result transmit zoë reference range : 3.8-4.8 g/dL. T he reference range was not used to interpret this result as normal/abnormal . Alkaline Phosphatase 106 IU/L See_Comment [Autom ated message] (test code = 6768-6) The s tem which generated this result transmit zoë reference range : 44-121 IU/L. Th e reference range was not used to interpret this result as normal/abnormal . ALT (SGPT) (test 12 IU/L See_Comment [Automated message] code = 1742-6) The system [facility] generated this result transmit zoë reference range : 0-32 IU/L. The reference range was not used to interpret this result as normal/abnormal . AST (SGOT) (test 12 IU/L See_Comment [Automated message] code = 1920-8) The system [facility] generated this result transmit zoë reference range : 0-40 IU/L. The reference range was not used to interpret this result as normal/abnormal . Bilirubin, Total 0.3 mg/dL See_Comment [Automated message] (test code = 1974-11) The [facility] tem which generated this result transmit zoë reference range : 0.0-1.2 mg/dL. The reference range was not used to interpret this result as normal/abnormal . BUN (test code = 12 mg/dL See_Comment [Automated message] 3094-0) The system [facility] generated this result transmit zoë reference range : 8-27 mg/dL. The reference range was not used to interpret this result as normal/abnormal . BUN/Creatinine Ratio 21 12-28 (test code = 3097-3) Calcium (test code = 8.6 mg/dL See_Comment L [Autom ated message] 24083-1) The system [facility] generated this result transmit zoë reference range [...] [Automa zoë message] = 2074-0) The system [facility] generated this result transmit zoë reference range : 96-106 mmol/L. The reference range was not used to interpret this result as normal/abnormal . Creatinine (test 0.57 mg/dL See_Comment [Automated message] code = 2160-0) The system [facility] generated this result transmit zoë reference range : 0.57-1.00 mg/dL . The reference range was not used to interpret this result as normal/abnormal . eGFR If Africn Am 109 See_Comment [Automate d message] (test code = mL/min/1.73 The system [employer] 69827-8) generated this result transmit zoë reference range : >59 mL/min/1.73. Th e reference range was not used to interpret this result as normal/abnormal . eGFR If NonAfricn Am 95 mL/min/1.73 See_Comment [Aut omated message] (test code = The system [employer] 30318-3) generated this result transmit zoë reference range : >59 mL/min/1.73. Th e reference range was not used to interpret this result as normal/abnormal . Globulin, Total 3.9 g/dL See_Comment [Automated message] (test code = The system [employer] 81342-7) generated this result transmit zoë reference range : 1.5-4.5 g/dL. T he reference range was not used to interpret this result as normal/abnormal . Glucose (test code = 162 mg/dL See_Comment H [Autom ated message] 2345-7) The system [employer] generated this result transmit zoë reference range : 65-99 mg/dL. Th e reference range was not used to interpret this result as normal/abnormal . Potassium (test code 4.2 mmol/L See_Comment [Autom ated message] = 2823-3) The system [employer] generated this result transmit zoë reference range : 3.5-5.2 mmol/L. The reference range was not used to interpret this result as normal/abnormal . Protein, Total (test 7.5 g/dL See_Comment [Autom ated message] code = 2885-2) The system [facility] generated this result transmit zoë reference range : 6.0-8.5 g/dL. T he reference range was not used to interpret this result as normal/abnormal . Sodium (test code = 140 mmol/L See_Comment [Automa zoë message] 2951-2) The system [employer] generated this result transmit zoë reference range : 134-144 mmol/L. The reference range was not used to interpret this result as normal/abnormal . Uric Acid, [id number] 00:00:00 Test Item Value Reference Range Interpretation Comments Uric Acid (test 3.8 mg/dL See_Comment [Automated message] The code = 3084-1) system which generated this result tra nsmitted reference range : 3.0-7.2 mg/dL. The refe rence range was not u sed to interpret this result as normal/abnormal . CBC With Differential/[id number] 00:00:00 Test Item Value Reference Range Interpretation [...] 27.2 % See_Comment L [Auto mated = 8134-3) message] The sy stem which generated this result transmitted reference range : 34.0-46.6 %. Th e reference range was not used to interpret this result as normal/abnormal . Hematology Comments: (test code = 56910-0) Hemoglobin (test code 7.9 g/dL See_Comment L [Auto mated = 258-7) message] The sy stem which generated this result transmitted reference range : 11.1-15.9 g/dL. The reference range was not used to interpret this result as normal/abnormal . Immature Cells (test code = UNLOINC) Immature Grans (Abs) 0.0 x10E3/uL See_Comment [Autom ated (test code = 00514-6) messag e] The system which generated this result transmitted reference range : 0.0-0.1 x10E3/u L. The reference r rita was not used to interpret this result as normal/abnormal . Immature Granulocytes 0 % Not Estab. % (test code = 37986-5) Lymphs (test code = 27 % Not [...] as normal/abnormal . NRBC (test code = 68363-0) Platelets (test code 319 x10E3/uL See_Comment [Autom ated = 777-3) message] The sy stem which generated this result transmitted reference range : 150-450 x10E3/u L. The reference r rita was not used to interpret this result as normal/abnormal . RBC (test code = 3.38 x10E6/uL See_Comment L [Automate d 199-8) message] The sy stem which generated this result transmitted reference range : 3.77-5.28 x10E6 /uL. The reference r rita was not used to interpret this result as normal/abnormal . RDW (test code = 15.1 % See_Comment [Automated 178-0) message] The sy stem which generated this result transmitted reference range : 11.7-15.4 %. Th e reference range was not used to interpret this result as normal/abnormal . WBC (test code = 9.6 x10E3/uL See_Comment [Automated 7853-2) message] The sy stem which generated this result transmitted reference range : 3.4-10.8 x10E3/ uL. The reference r rita was not used to interpret this result as normal/abnormal . TSH reflex to [id number] 00:00:00 Test Item Value Reference Range Interpretation Comments TSH (test code = 1.260 uIU/mL See_Comment [Automated message] The 71616-2) system which ge nerated this result tra nsmitted reference range : 0.450-4.500 uIU /mL. The reference range was not used to interpr et this result as normal/abnormal . Tissue [id number] 18:50:00 Test Item Value Reference Range Interpretation Comments Case Report (test code Surgical Pathology = 104) Report Case: [id number] Authorizing Provider: Juan Gallardo, Collected: 09/19/2020 02:54 PM Ordering Location: [facility] Received: 09/19/2020 03:32 PM PERIOPERATIVE SERVICES Pathologist: Jarad Menchaca MD Specimen: Plaque, LEFT CAROTID ARTERY PLAQUE DIAGNOSIS (test code = d6djgYSwLMAjl6vgJKVtiUO 3220) uZzEwMzNcZnRuYmpcdWMxIH tccnRmMVxlcGljOTIwMFxhb uDqHNCmrOFyM5FlwlqhPYut GB6bAR4abSjzaWCbaPNvKQG rLfAvp1fhf208eYZsz2yeGJ XWeewqrUy7wZteO51ei7L3J nbtG11jkRJbPHojtMYqxbxs czIwIEFSVEVSWSwgTEVGVCB DQVJPVElELCBFTkRBUlRFUk HOBT9AZEowbGInNBEDCSLBM bqJRWXRCFVPA2CVDWGHZ1SY DoDXWCJQZIHlZZChop10EAG 9RxGcl4R8IVM5MSDwPNFcr0 lcZGVmbGFuZzEwMzNcZnRuY eubiWKjXFAtLrKbq9osl572 lSIdg8gyYXFeHbA2zMNoMVA cqDQwS124PUQrPKtjv7azl2 WmCHRnuETna5E0UXFMjjkih Xc6fBnuS95br5Z1NqgxE4md RRWeEPRuY0AkHJ8vEECwWgh 5XYP8QDE9VIQxTGMnB4KdFB 2xDIHfxXDpLFz8r1flqQvsX ZYkNEU0a4upSIubwvCsLM5q rm1kfEx7a4pddxLvJRSvNRQ yzCDWQGWgW4QfqZjnDo1elT c8vJhtIxwxVFX9Pzq3HF5kl b27xpw8fYjuYXGudopqLfB3 NKhpSDBxxkjoFOn7PNlwAHZ qfBE2GRYpmIBnE9PgMMPtYE 0oasy6LZW6EKtyAAQpHaC6H TAppFNdSEPkcKfbTJqqj617 HHU8NzCxWB8hB8Sjl6J9vN1 maXRcZGVmdGFiNzIwXGZvcm 9ooUHoYGoub5AzJUY7qoY9m UEmvYEdHSPhBkL5IBycBB2p uf69GHLzFVH8bf4qsJIcnUp ayhWfhAYhGSvfV0LyDNNzn7 12LDUlC4OmEALps0Y9qkYiS xDjFPClkRB6grL6OYMvCH6q uqemo3agWEwyLRakGBWrzsH 1twF0XTOoqOHjD5LniU6yYJ YeZI6cypkdw8bqJUU8IGtzE ZBhTHA8UyOrTJOsh6Qgwyw3 XuOpe4BtuNHqWMqsQ15wg12 6AIDzbiJgH2mpxTYfnqvytM LmlvedJXwzsgM3ZIMwBEaux qfnBUVqIGyyI7erYzPbZAJa iMpbZAbue4FwJXSmKBSgLdC qcJVmDOZwVrl7JCCluZYyUB EqCeWjF2ifzepnYcMDYVOmh 5aoG7mctCBYkZVfY8RjTBvx jtRpZAxaPNxwCYOnARC1QV0 3KjljTNVwga70 CPT Code(s) (test code k4abzWYqQXZabNL1DaIuMSN = 3357) pw5sti4YiqQTpnBMzKIgjjT CnjfUdoo36iJZ0gQ58WL3yW FDpMbN8QGDewcY1Tiv1NOKf KPNlhCLtV328l7vde8uumtD kmLJ8zHgiLVLqKZBkPJznPE JdXrSuPApuKBA8CPx1FpOnS HBhcn0= CLINICAL HISTORY (test o2zfgVVrZIHxqZA7UuJjCXF code = 3356) jk7luw3JzfHFzwZUdBIpwhW CzifSnbx62bMQ9oN12FW5qN MSmUdS8FZWexxV0Lup9DUHz JAVufEVoF931o2kjj4koiyY nlXE7xHstKYQsNMDyERydCG PtSgKlXCZxr9JjZEndN48nl 2lzOiAgbGVmdCBjYXJvdGlk DDZ1WJ2fq6naPDPusv4= SPECIMEN SOURCE (test y3tzfHCxBCIxuTO9CpZzJNI code = 3377) oe0jqm7XvmJEpiFHhRNrpyT OkhgKmpv26lOM3bW22RQ1gK HFmEsC7XPEgggU8Kqd3YCMf PVXvfJMkR267m4ivy6rxfvA ylRH7qTvbOFOfGSLdUJzfFJ ZzMjAgUGxhcXVlIFxwYXJ9 GROSS DESCRIPTION i3bajTTfDVFmfZL2XaWgPEL (test code = 3366) ig6jol0LobXNfkUCmEEuvtX YkslWnxy70sQP6rM09BI0oN OQqWoI3RLGobvE6Gfc0PHLl BPJerEQcJ510w0zcl1izstZ ziFT4hVtjPPHiOAMeIFysMT GyYlAjOhSrWHx3MTCnIhSna 4xpzNPsWGjcXEW5nAOvFPFr BLAzCYYlLY19B6QzxhHvCQf iQEGmQJBhuR1aQY69eRPdia ZkezKySyVfBXG8BYdtvOJrt CBjYXJvdGlkIGFydGVyeSBw lAPexHRoREetFGSvLp6cJLs dNj0bOBCrTYmayhAdqYkfef MouvVfqNPgcJQnOxE4DXqru 3cgcGxhcXVlIHRoYXQgZGlz iTcqcNRtZ4RkV1bkjAOgsOt eeg1cZKqzEOZxSQLwoPHyGC xkQTImadniaBw0QDWiS3Sen 48fNNL0wpUvOPCzNZsyJFO7 BZfqw5pugC2el1jkguEqjBV vI7FbG5pcaJFhWMMrcgQsrg 4gVGhlIHNwZWNpbWVuIGlzI SF5Rl3crLXfVHEanvKylKLi EY79lAMykPyiVh9zhK36mH2 kARBbH9SqC0motKIpmQvsse JqnyHOAO8xUXnFJ2SeUQvlE XJ9 MICROSCOPIC i5nzaLAjPAYixFU7AhBeEWH DESCRIPTION (test code fm9vyn4KggCBtyYYvSKxzxH = 3371) KtpwNcoe09vIE2sJ95IK9uK PCaRhL8CFYndiO9Idr5GQMl HGZeaFMtS715k9dui6evzrT rmPX9cDorQUOkHWAyOOjjHY GcMgCkJNXaEn5piGEdBWQra n0= [facility] CenterTissue [id number] 18:50:00 Test Item Value Reference Range Interpretation Comments Case Report (test code Surgical Pathology = 104) Report Case: [id number] Authorizing Provider: Juan Gallardo, Collected: 09/19/2020 02:54 PM Ordering Location: [facility] Received: 09/19/2020 03:32 PM PERIOPERATIVE SERVICES Pathologist: Jarad Menchaca MD Specimen: Plaque, LEFT CAROTID ARTERY PLAQUE DIAGNOSIS (test code = c9pcsEJbLDKhy9evSWTmjIZ 3220) uZzEwMzNcZnRuYmpcdWMxIH tccnRmMVxlcGljOTIwMFxhb gNmVVNpbTPwM7DfmsgsLYhr HK2dBV5yhOvyhCBacLKeKVW fSwNmp8tzx486zMQyh1taII XLouzxmHp8xDcnL63ol8A0R dtgT76cqSLiTZnshDLbrqol czIwIEFSVEVSWSwgTEVGVCB DQVJPVElELCBFTkRBUlRFUk ZVEX9QSCsilWDfGGKSQDGJX xiQZDYHWNBWM1EHXHHRF5DZ PsRDBOTOBJLyUSWanz80PRP 8EoOtb7J3HEQ4VHHjTHDca3 lcZGVmbGFuZzEwMzNcZnRuY sbrfIPcKAIrJjLzs8zuq964 rKLwq2zpDBBoWtB8nHOgGQR paSNxU262WDCgSIiyp2npp6 ZiDFFfhZEvw6N7PNBEfcflh Od0lAlvJ09rz1E7LmpwD7gn ECSfXIOgW1FaBM5tLMVvBib 6SRH6YUC5YTOkWOClL0JeEF 7tTKNykRTxRLq7v7pfcUjwS UGoCKD2r2ijVCtagjSoZN5o si2weKx0p5wcvuOiMTWzBAO czGIHAMRzA8JnbMoeZa1oxR t8tHwiKimyVIA5Ulq7LZ7qz a10qha4kCtvJEKlsujoXxP0 TImmDXUfszjrHDr1FQavTEH onQO9KZHzaPJiK5XaXNFtBN 6dtxu1UTU8FWmgVVUgUtJ9Q GWxsJUySZEasAjbRRqre837 DUL6BcGjBB0kO0Hnr3N8cL4 maXRcZGVmdGFiNzIwXGZvcm 9joSLxOKxzx0CoLIB9qaP2g ROkfXUrFYOfPaC3QFpfIN2y qh34GHJsQPE3yy4heFBshPt oikUdjKUuOPzxG3SxTHLft0 73AMVjE3SrQOFyo7A8xsSvO jPoOJLnxKM9iqZ9FXIiTD1u dfgmc1rgVHwuUUtsQLGzggQ 2wwA0PAHvjXAeK3QjyM0kVT GwKX8xtohya4lxNOM9FQwmA WKiWWL2HhYnNJAne9Jvfes4 OnTjr5QvpGLsUDtoX20bw45 4GXNaoaGtF5yemSRvpbsidV XczvudDUlwseD1RIXoWXhbi zgrWWOeIImbB8biVcQuQASi eJprTJmsa1LhCWOjSDIgCbV dmGFcBMUwFfd9ZOPtvGAgAN IiJbAxY2bplsaiYyURAUBfm 9viO5gakBWBuPXgU0LhGGjm vpXdFLrnELhnLBXdXIX8GG7 5SwnsQPYjdu26 CPT Code(s) (test code t3ftlMYePWPcjPS2WeThRMP = 3357) hi9fir3QhwZSqwTNcGZltqP BhreIclc32yHG8yB55QD6kK GKlNiU5BGWftyX3Nty3XRLi EEHpjYBfE201v2jie9lovxV aeMC1lWnoIJJgYAJhRQjcRK MtViDgZErhSRC5KWs1YnXlC HBhcn0= CLINICAL HISTORY (test b5hraHSfLGGijGP1HqSuAUU code = 3356) ap5wfw4ElsLKpfNQzJLyssA BfnpPgnz51eCM4wK20ST2pK EKwAjH9HHKprnR0Ler3QHNp UEIowRBrE271p2inq0lmgwY lyXF6vBcpCGXsRSWrVQwlUM KkEhUhBHXif4AmNIgjG33gn 2lzOiAgbGVmdCBjYXJvdGlk YVT3GD6ce3umBXXlch5= SPECIMEN SOURCE (test q0rfyYMpBILieHA0DnJcPRA code = 3377) an3kzr9FtdWRhxUAtZIzdvV NxnyCqnp33jRG2lF82WD8kK JWrPdW4LUDwitO7Llv1OHDc MUKonABrS154v8sqk1lhxyV uhLH9fEebPEWfMLZxYEtyHT ZzMjAgUGxhcXVlIFxwYXJ9 GROSS DESCRIPTION k0xtdAFdHSDhoJM8AaDjSKB (test code = 3366) wg7hlu0HweZVzyVFwKWcpsB VedbVtew47cJT8jH47EX1iV ICzGtY6MXIwgdF6Tkd0SPWh VVSlmWPzQ237a0dzt5hmtiA tzCD9kGxzPKPdIVNcYYhpZA XkEkSuZtQaKOq4WXUyNjSnz 2lgkYVoFTbcYQT5lRWhCYDb LJCmXUBvIO98K3IoyyWuEOx fPJAuHSLlaP5nWO80rOErmx SnecLsChEvUOT8UTfskTOti CBjYXJvdGlkIGFydGVyeSBw uRTeaMCvOEiyIPThZu6pZKo jGv2bFOIgHZkvapVflNbefu FppnPqdOAleSHzXpQ6JMnsx 3cgcGxhcXVlIHRoYXQgZGlz rMvovGZpC2RwH0wfxPVsiYf crs9hAXkmOXMxCCOlvKGnBP ltIYVgtvyjxBk7TQVxE0Mzo 25dCBW4ehAuXFLhLDkzCQE5 SEihe1mwkZ3zc0afrlWicBN vQ2ToL6amoJEyNTPwgkZazj 4gVGhlIHNwZWNpbWVuIGlzI IL1Rb3koJPaVEFysuCblKLw ZN52pOVuwUzhQm1rbX11bV4 oIDCyG7FzM7biuACxtUqudq XzaxWPLT1yZQxDF1FzDYkuI XJ9 MICROSCOPIC q9pykORgBEAaoGJ1FaOwDYG DESCRIPTION (test code ve8rux1XbfCQkaONsAHnjeU = 3371) KgwiNxcl51xOZ3jJ90KV8gE BEhSzU2IYVwbpA6Kuf9YHCu QMVikZQpD775f3wcy3dmptB qtHD4gGskTSPsTHGdLIifPY PfNsEoSNNtPr6atKAwIGCdb n0= [facility] CenterTISSUE [id number] 18:50:00Surgical Pathology Report Case: [id number] Authorizing Provider: Juan Gallardo, Collected: 09/19/2020 02:54 PM MD Ordering Location: [facility] Received: 09/19/2020 03:32 PM PERIOPERATIVE SERVICES Pathologist: Jarad Menchaca MD Specimen: Plaque, LEFT CAROTID ARTERY PLAQUE ARTERY, LEFT CAROTID, ENDARTERECTOMY:CALCIFIC ATHEROSCLEROTIC PLAQUE Signing Pathologist Direct Phone Line: [phone]; [phone] diagnosis: left carotid stenosisPlaque Received fresh labeled with the patient's name, accession number and "plaque, left carotid artery plaque" is a 2.0 x 2.0 cm irregular fragment of yellow plaque that displays calcification. The specimen is serially sectioned to reveal a yellow homogeneous calcified center. The specimen is submitted in its entirety following decalcification in A1. JG/pl PerformedPOC-Glucose [id number] 11:48:00 Test Item Value Reference Range Interpretation Comments POC-Glucose Meter (test 208 mg/dL 70-110 H : TE STED AT [facility] code = 1538) 20 [facility], [facility] 30: Kier Hand/Techni ciara ID = [id number] for BERT CORONADO Lab Interpretation (test Abnormal code = 73611-5) [facility] Center[facility] [id number] 11:48:00 Test Item Value Reference Range Interpretation Comments POC-Glucose Meter (test 208 mg/dL 70-110 H : TE STED AT [facility] code = 1538) [address] [facility], [facility] 30: Kier Hand/Techni ciara ID = [id number] for BERT CORONADO Lab Interpretation (test Abnormal code = 50188-5) [facility] CenterPO[facility]UCOSE [id number] 11:48:00 Test Item Value Reference Range Interpretation Comments POC-GLUCOSE METER 208 mg/dL 70-110 H : TESTED A T [facility] 6720 (BEAKER) (test code = [facility], 1538) [address]: Kier Hand/Techni ciara ID = [id number] for BERT ROUSSEAU POCT-GLUCOSE [id number] 08:17:00 Test Item Value Reference Range Interpretation Comments POC-GLUCOSE METER 183 mg/dL 70-110 H : TESTED A T [facility] 6720 (BEAKER) (test code = [facility], 1538) [address]: Kier Hand/Techni ciara ID = [id number] for BERT ROUSSEAU POC ACTIVATED CLOTTING [id number] 06:23:00 Test Item Value Reference Range Interpretation Comments Activated Clotting Time 241 sec : 74 -137 seconds, (test code = 441) Baseline: TESTED AT [address], [facility] 30: Kier Hand/Techni ciara ID = [id number] for CAST RO, NAT [facility] CenterPO ACTIVATED CLOTTING [id number] 06:23:00 Test Item Value Reference Range Interpretation Comments Activated Clotting Time 241 sec : 74 -137 seconds, (test code = 441) Baseline: TESTED AT [address], [facility] 30: Kier Hand/Techni ciara ID = [id number] for CAST RO, NAT [facility] CenterPOCT-[id number] 06:23:00 Test Item Value Reference Range Interpretation Comments ACTIVATED CLOTTING TIME 241 sec : 74 -137 seconds, (BEAKER) (test code = Baseli ne: TESTED AT [facility]) [address], [facility] 30: Kier Hand/Techni ciara ID = [id number] for CA STRO, NAT [id number] 06:23:00 Test Item Value Reference Range Interpretation Comments ACTIVATED CLOTTING TIME 224 sec : 74 -137 seconds, (BEAKER) (test code = Baseli ne: TESTED AT 441) [address], [facility] 30: Kier Hand/Techni ciara ID = [id number] for CA STRO, NAT CBC with platelet count + automated [id number] 01:08:00 Test Item Value Reference Range Interpretation Comments WBC (test code = 6690-2) 12.8 See_Comment H [A utomated message] The system [employer] generated this result transmitted ref erence range: 3.5 - 10 .5 K/L. The refe rence range was not u sed to interpret this result as normal/abnor mal. RBC (test code = 789-8) 3.64 See_Comment L [Au tomated message] The system [employer] generated this result transmitted ref erence range: 3.93 - 5 .22 M/L. The refe rence range was not u sed to interpret this result as normal/abnor mal. MCHC (test code = 786-4) 30.3 See_Comment L [A utomated message] The system [employer] generated this result transmitted ref erence range: [...] See_Comment [Aut omated message] 777-3) The system [employer] generated this result transmitted ref erence range: 150 - 45 0 K/CU MM. The referen ce range was not u sed to interpret this result as normal/abnor mal. MPV (test code = 10.5 fL 9.4-12.3 42745-8) nRBC (test code = 413) 0 See_Comment [Aut omated message] The system [employer] generated this result transmitted ref erence range: [...] H [Aut omated message] 670) The system [employer] generated this result transmitted ref erence range: 1.56 - 6 .13 K/L. The refe rence range was not u sed to interpret this result as normal/abnor mal. # Lymphs (test code = 1.06 See_Comment L [Auto mated message] 414) The system [employer] generated this result transmitted ref erence range: 1.18 - 3 .74 K/L. The refe rence range was not u sed to interpret this result as normal/abnor mal. # Monos (test code = 0.20 See_Comment L [Autom ated message] 415) The system [employer] generated this result transmitted ref erence range: 0.24 - 0 .36 K/L. The refe rence range was not u sed to interpret this result as normal/abnor mal. # Eos (test code = 416) 0.00 See_Comment L [Au tomated message] The system [employer] generated this result transmitted ref erence range: 0.04 - 0 .36 K/L. The refe rence range was not u sed to interpret this result as normal/abnor mal. # Baso (test code = 417) 0.03 See_Comment [A utomated message] The system [employer] generated this result transmitted ref erence range: 0.01 - 0 .08 K/L. The refe rence range was not u sed to interpret this result as normal/abnor mal. Immature 1 % 0-1 Granulocytes-Relative (test code = 2801) Lab Interpretation (test Abnormal code = 17317-4) [facility] with platelet count + automated [id number] 01:08:00 Test Item Value Reference Range Interpretation Comments WBC (test code = 6690-2) 12.8 See_Comment H [A utomated message] The system [employer] generated this result transmitted ref erence range: 3.5 - 10 .5 K/L. The refe rence range was not u sed to interpret this result as normal/abnor mal. RBC (test code = 789-8) 3.64 See_Comment L [Au tomated message] The system [employer] generated this result transmitted ref erence range: 3.93 - 5 .22 M/L. The refe rence range was not u sed to interpret this result as normal/abnor mal. MCHC (test code = 786-4) 30.3 See_Comment L [A utomated message] The system [employer] generated this result transmitted ref erence range: [...] See_Comment [Aut omated message] 777-3) The system [employer] generated this result transmitted ref erence range: 150 - 45 0 K/CU MM. The referen ce range was not u sed to interpret this result as normal/abnor mal. MPV (test code = 10.5 fL 9.4-12.3 70297-8) nRBC (test code = 413) 0 See_Comment [Aut omated message] The system [employer] generated this result transmitted ref erence range: [...] H [Aut omated message] 670) The system [employer] generated this result transmitted ref erence range: 1.56 - 6 .13 K/L. The refe rence range was not u sed to interpret this result as normal/abnor mal. # Lymphs (test code = 1.06 See_Comment L [Auto mated message] 414) The system [employer] generated this result transmitted ref erence range: 1.18 - 3 .74 K/L. The refe rence range was not u sed to interpret this result as normal/abnor mal. # Monos (test code = 0.20 See_Comment L [Autom ated message] 415) The system [employer] generated this result transmitted ref erence range: 0.24 - 0 .36 K/L. The refe rence range was not u sed to interpret this result as normal/abnor mal. # Eos (test code = 416) 0.00 See_Comment L [Au tomated message] The system [employer] generated this result transmitted ref erence range: 0.04 - 0 .36 K/L. The refe rence range was not u sed to interpret this result as normal/abnor mal. # Baso (test code = 417) 0.03 See_Comment [A utomated message] The system [employer] generated this result transmitted ref erence range: 0.01 - 0 .08 K/L. The refe rence range was not u sed to interpret this result as normal/abnor mal. Immature 1 % 0-1 Granulocytes-Relative (test code = 2801) Lab Interpretation (test Abnormal code = 57660-1) [facility] W/PLT COUNT & AUTO [id number] 01:08:00 Test Item Value Reference Range Interpretation [...] (BEAKER) (test code = 2801) Basic Metabolic [id number] 00:56:00 Test Item Value Reference Range Interpretation [...] (test code = 8.2 mg/dL 8.4-10.2 L 66287-7) EGFR (test code = 75 mL/min/1.73 sq [place] [address]-6) NOT ACCURATE CREATININE CLEARANCE IN PREDICTING GLOMERULAR FILTRATION RATE . ESTIMATED GFR I S NOT APPLICABLE FOR DIALYSIS PATIENTS. GABRIELA (test code = GABRIELA) Kier Hand ID - PIAYA L Lab Interpretation Abnormal (test code = 55499-8) [facility] CenterMagnesium2020-12-08 00:56:00 Test Item Value Reference Range Interpretation Comments Magnesium (test code = 1.7 mg/dL 1.6-2.6 06625-8) GABRIELA (test code = GABRIELA) Kier Hand ID - PIAYA L Lab Interpretation (test Normal code = 04885-3) [facility] CenterPhosphorus2020-12-08 00:56:00 Test Item Value Reference Range Interpretation Comments Phosphorus (test code = 3.7 mg/dL 2.3-4.7 2777-1) GABRIELA (test code = GABRIELA) Kier Hand ID - PIAYA L Lab Interpretation (test Normal code = 22346-2) [facility] CenterBasi Metabolic [id number] 00:56:00 Test Item Value Reference Range Interpretation [...] (test code = 8.2 mg/dL 8.4-10.2 L 76741-8) EGFR (test code = 75 mL/min/1.73 [place] [address]-4) NOT ACCURATE CREATININE CLEARANCE IN PREDICTING GLOMERULAR FILTRATION RATE . ESTIMATED GFR I S NOT APPLICABLE FOR DIALYSIS PATIENTS. GABRIELA (test code = GABRIELA) Kier Hand ID - PIAYA L Lab Interpretation Abnormal (test code = 38621-8) [facility] CenterMagnesium2020-12-08 00:56:00 Test Item Value Reference Range Interpretation Comments Magnesium (test code = 1.7 mg/dL 1.6-2.6 50882-5) GABRIELA (test code = GABRIELA) Kier Hand ID - PIAYA L Lab Interpretation (test Normal code = 42047-1) [facility] CenterPhosphorus2020-12-08 00:56:00 Test Item Value Reference Range Interpretation Comments Phosphorus (test code = 3.7 mg/dL 2.3-4.7 2777-1) GABRIELA (test code = GABRIELA) Kier Hand ID - PIAYA L Lab Interpretation (test Normal code = 40139-5) [facility] CenterBASIC METABOLIC [id number] 00:56:00 Test Item Value Reference Range Interpretation [...] S NOT APPLICABLE FOR DIALYSIS PATIEN TS. Kier Hand ID - RHEATUAN [id number] 00:56:00 Test Item Value Reference Range Interpretation Comments MAGNESIUM (BEAKER) (test code = 1.7 mg/dL 1.6-2.6 627) Kier Hand ID - FARHAD [id number] 00:56:00 Test Item Value Reference Range Interpretation Comments PHOSPHORUS (BEAKER) (test code = 3.7 mg/dL 2.3-4.7 604) Kier Hand ID - RHEATUAN LCalcium, [id number] 00:31:00 Test Item Value Reference Range Interpretation Comments Calcium, Ion (test code = 1993-12) 1.18 mmol/L 1.12-1.27 pH, Blood (test code = 40961-0) 7.39 [facility] CenterCalcium, [id number] 00:31:00 Test Item Value Reference Range Interpretation Comments Calcium, Ion (test code = 1993-12) 1.18 mmol/L 1.12-1.27 pH, Blood (test code = 89536-1) 7.39 [facility] CenterCALCIUM, [id number] 00:31:00 Test Item Value Reference Range Interpretation Comments CALCIUM IONIZED (BEAKER) (test 1.18 mmol/L 1.12-1.27 code = 698) PH, BLOOD (BEAKER) (test code = 7.39 1810) [id number] 10:46:00 Test Item Value Reference Range Interpretation Comments PTT (test code = 57327-3) 27.9 See_Comment [ Automated message] The system [employer] generated this result transmitted ref erence range: 22.5 - 3 6.0 seconds. The re ference range was not u sed to interpret this result as normal/abnor mal. Lab Interpretation (test Normal code = 11480-4) [facility] CenteraPTT2020-12-07 10:46:00 Test Item Value Reference Range Interpretation Comments PTT (test code = 50497-0) 27.9 See_Comment [ Automated message] The system [employer] generated this result transmitted ref erence range: 22.5 - 3 6.0 seconds. The re ference range was not u sed to interpret this result as normal/abnor mal. Lab Interpretation (test Normal code = 10266-3) [facility] CenterAPTT2020-12-07 10:46:00 Test Item Value Reference Range Interpretation Comments PARTIAL THROMBOPLASTIN TIME 27.9 seconds 22.5-36.0 (BEAKER) (test code = 760) Prothrombin time/[id number] 10:45:00 Test Item Value Reference Interpretation Comments Range Protime (test code = 13.4 See_Comment [Autom ated 5902-2) message] The system which generated this result transmitted reference range : 11.9 - 14.2 seconds. The reference range was not used to interpret this result as normal/abnormal . INR (test code = 1.05 See_Comment [Automated 7301-6) message] The system which generated this result [...] valves. Lab Interpretation Normal (test code = 45409-2) [facility] CenterProthrombin time/[id number] 10:45:00 Test Item Value Reference Interpretation Comments [...] valves. Lab Interpretation Normal (test code = 29137-7) [facility] CenterPROTHROMBIN TIME/[id number] 10:45:00 Test Item Value Reference Range Interpretation [...] 2.5-3.5 for patients wiht mechanical heart valves.POCT-GLUCOSE [id number] 09:19:00 Test Item Value Reference Range Interpretation Comments POC-GLUCOSE METER 187 mg/dL 70-110 H : TESTED A T [facility] 6720 (BEAKER) (test code = [place], 1538) [address]: Kier Hand/Techni ciara ID = [id number] for Jojo Rivers ECG 12 [id number] 12:51:19Interface, External Ris In - 09/14/2020 12:51 PM CSTVentricular Rate 65 BPMAtrial Rate 65 BPMP-R Interval 154 msQRS Duration 78 msQ-T Interval 442 msQTC Calculation(Bazett) 459 msP Grant 5 degreesR Axis77 degreesT Grant 66 degreesNormal sinus rhythmNonspecific T wave abnormalityProlonged QTWhen compared with ECG of 02-AUG-2019 06:01,Premature ventricular complexes are no longer PresentConfirmed by Daksha NICHOLE, MOLLY ([id number]) on 09/14/2020 12:51:17 [facility] [id number] 12:51:19Interface, External Ris In - 09/14/2020 12:51 PM CSTVentricular Rate 65 BPMAtrial Rate 65 BPMP-R Interval 154 msQRS Duration 78 msQ-T Interval 442 msQTC Calculation(Bazett) 459 msP Grant 5 degreesR Axis77 degreesT Grant 66 degreesNormal sinus rhythmNonspecific T wave abnormalityProlonged QTWhen compared with ECG of 02-AUG-2019 06:01,Premature ventricular complexes are no longer PresentConfirmed by Daksha NICHOLE, MOLLY ([id number]) on 09/14/2020 12:51:17 [facility]ABORH, [id number] 16:42:00 Test Item Value Reference Range Interpretation Comments ABO Grouping (test code = 2588) A Rh Factor (test code = 2589) POS [facility] CenterABORH, [id number] 16:42:00 Test Item Value Reference Range Interpretation Comments ABO Grouping (test code = 2588) A Rh Factor (test code = 2589) POS [facility] CenterType and screen, [id number] 16:36:00 Test Item Value Reference Range Interpretation Comments Ab Scrn (test code = 890-4) NEGATIVE echo2 [facility] CenterType and screen, [id number] 16:36:00 Test Item Value Reference Range Interpretation Comments Ab Scrn (test code = 890-4) NEGATIVE echo2 [facility] CenterBASIC METABOLIC [id number] 15:32:00 Test Item Value Reference Range Interpretation [...] S NOT APPLICABLE FOR DIALYSIS PATIEN TS. Kier Hand ID - ADMINPROTHROMBIN TIME/[id number] 15:29:00 Test Item Value Reference Range Interpretation [...] mechanical heart valves.CBC W/PLT COUNT & AUTO [id number] 15:17:00 Test Item Value Reference Range Interpretation [...] (BEAKER) (test code = 2801) BASIC METABOLIC [id number] 06:24:00 Test Item Value Reference Range Interpretation [...] 0-0 (BEAKER) (test code = 413) POCT-GLUCOSE [id number] 21:22:00 Test Item Value Reference Range Interpretation Comments POC-GLUCOSE METER 138 mg/dL 70-110 H TESTED AT [facility] 6720 (BEAKER) (test code = [place] 1538) [address] POCT-GLUCOSE [id number] 17:38:00 Test Item Value Reference Range Interpretation Comments POC-GLUCOSE METER 131 mg/dL 70-110 H TESTED AT [facility] 6720 (BEAKER) (test code = [place] 1538) [address] BASIC METABOLIC [id number] 06:07:00 Test Item Value Reference Range Interpretation [...] 1092) DATA TO CALCULA TE ESTIMATED GFR. [id number] 06:04:00 Test Item Value Reference Range Interpretation [...] code = 412) PLATELET COUNT (AKER) (test 289 K/CU MM 150-450 code = 756) MEAN PLATELET VOLUME (BEAKER) 10.4 fL 9.4-12.3 (test code = 754) NUCLEATED RED BLOOD CELLS 1 /100 WBC 0-0 H (AKER) (test code = 413) POCT-GLUCOSE [id number] 23:10:00 Test Item Value Reference Range Interpretation Comments POC-GLUCOSE METER 127 mg/dL 70-110 H TESTED AT [place] [address] ([facility]) (test code = [facility] 1538) [address] POCT-GLUCOSE [id number] 12:36:00 Test Item Value Reference Range Interpretation Comments POC-GLUCOSE METER 157 mg/dL 70-110 H TESTED AT [place] [address] ([facility]) (test code = [facility] 1538) [address] CBC (HEMOGRAM ONLY)2019-08-02 06:03:00 Test Item Value [...] (BEAKER) (test code = 413) BASIC METABOLIC [id number] 05:47:00 Test Item Value Reference Range Interpretation [...] 1092) DATA TO CALCULA TE ESTIMATED GFR. [id number] 05:46:00 Test Item Value Reference Range Interpretation Comments PHOSPHORUS (BEAKER) (test code = 2.5 mg/dL 2.3-4.7 604) [id number] 05:46:00 Test Item Value Reference Range Interpretation Comments MAGNESIUM (BEAKER) (test code = 2.1 mg/dL 1.6-2.6 627) POCT-GLUCOSE [id number] 20:47:00 Test Item Value Reference Range Interpretation Comments POC-GLUCOSE METER 164 mg/dL 70-110 H TESTED AT [facility] 6720 (BEAKER) (test code = ERENDIRA [place] 1538) [address] POCT-GLUCOSE [id number] 17:38:00 Test Item Value Reference Range Interpretation Comments POC-GLUCOSE METER 194 mg/dL 70-110 H TESTED AT [facility] 6720 (BEAKER) (test code = ERENDIRA [place] 1538) [address] POCT-GLUCOSE [id number] 07:51:00 Test Item Value Reference Range Interpretation Comments POC-GLUCOSE METER 157 mg/dL 70-110 H TESTED AT [facility] 6720 [facility] (test code = EREDNIRA [place] 1538) [address] HEMOGLOBIN [id number] 07:51:00 Test Item Value Reference Range Interpretation Comments HEMOGLOBIN A1C (BEAKER) (test code = 8.6 % 4.3-6.1 H 368) BASIC METABOLIC [id number] 06:11:00 Test Item Value Reference Range Interpretation [...] 1092) DATA TO CALCULA TE ESTIMATED GFR. [id number] 06:10:00 Test Item Value Reference Range Interpretation Comments PHOSPHORUS (BEAKER) (test code = 1.9 mg/dL 2.3-4.7 L 604) [id number] 06:10:00 Test Item Value Reference Range Interpretation [...] 0-0 (BEAKER) (test code = 413) POCT-GLUCOSE [id number] 22:07:00 Test Item Value Reference Range Interpretation Comments POC-GLUCOSE METER 175 mg/dL 70-110 H TESTED AT [place] [address] ([facility]) (test code = ERENDIRA Guzman [facility] 1538) [address] POCT-GLUCOSE [id number] 18:30:00 Test Item Value Reference Range Interpretation Comments POC-GLUCOSE METER 225 mg/dL 70-110 H TESTED AT [place] [address] ([facility]) (test code = ERENDIRA Thomas [place] 1538) [address] POCT-GLUCOSE [id number] 12:17:00 Test Item Value Reference Range Interpretation Comments POC-GLUCOSE METER 170 mg/dL 70-110 H TESTED AT [place] [address] ([facility]) (test code = ERENDIRA Guzman [facility] 1538) [address] POCT-GLUCOSE [id number] 08:20:00 Test Item Value Reference Range Interpretation Comments POC-GLUCOSE METER 161 mg/dL 70-110 H TESTED AT [facility] 67[address] (BEAKER) (test code = ERENDIRA MUNGUIA [place] 1538) [address] BASIC METABOLIC [id number] 08:18:00 Test Item Value Reference Range Interpretation [...] 1092) DATA TO CALCULA TE ESTIMATED GFR. [id number] 08:15:00 Test Item Value Reference Range Interpretation Comments MAGNESIUM (BEAKER) 1.9 mg/dL 1.6-2.6 Specimen slightly (test code = 627) hemolyzed [id number] 08:15:00 Test Item Value Reference Range Interpretation Comments PHOSPHORUS (BEAKER) 2.3 mg/dL 2.3-4.7 Specimen slightly (test code = 604) hemolyzed RAD, CHEST, 1 VIEW, NON [id number] 07:56:00Reason for exam:->post-op cardiac surgeryShould this be [...] MDReport Verified Date/Time: 07/31/2019 07:56:15 Reading Location: [facility] Reading Room Electronically signed by: DIXON WILKERSON on 07/31 07:56 [id number] 07:25:00 Test Item Value Reference Range Interpretation [...] RED BLOOD CELLS 0 /100 WBC 0-0 ([facility]) (test code = 413) POCT-GLUCOSE [id number] 21:32:00 Test Item Value Reference Range Interpretation Comments POC-GLUCOSE METER 168 mg/dL 70-110 H TESTED AT [place] [address] ([facility]) (test code = ERENDIRA Guzman [facility] 1538) [id number] POCT-GLUCOSE [id number] 17:55:00 Test Item Value Reference Range Interpretation Comments POC-GLUCOSE METER 172 mg/dL 70-110 H TESTED AT [place] [address] ([facility]) (test code = ERENDIRA Guzman [facility] 1538) [address] POCT-GLUCOSE [id number] 15:34:00 Test Item Value Reference Range Interpretation Comments POC-GLUCOSE METER 152 mg/dL 70-110 H TESTED AT [place] [address] ([facility]) (test code = [facility] Thomas [facility] 1538) [address] POCT-GLUCOSE [id number] 12:52:00 Test Item Value Reference Range Interpretation Comments POC-GLUCOSE METER 222 mg/dL 70-110 H TESTED AT [place] [address] ([facility]) (test code = ERENDIRA Guzman [facility] 1538) [address] POCT-GLUCOSE [id number] 07:19:00 Test Item Value Reference Range Interpretation Comments POC-GLUCOSE METER 185 mg/dL 70-110 H TESTED AT [place] [address] ([facility]) (test code = ERENDIRA Guzman [facility] 1538) [address] [id number] 06:16:00 Test Item Value Reference Range Interpretation Comments ACTIVATED CLOTTING TIME 109 sec Refe rence Range: 74-137 (BEAKER) (test code = second s, 441) Baseline/TESTED AT [address] [address] [id number] 06:16:00 Test Item Value Reference Range Interpretation Comments ACTIVATED CLOTTING TIME 543 sec Refe rence Range: 74-137 (BEAKER) (test code = second s, 441) Baseline/TESTED AT [address] [address] [id number] 06:16:00 Test Item Value Reference Range Interpretation Comments ACTIVATED CLOTTING TIME 510 sec Refe rence Range: 74-137 (BEAKER) (test code = second s, 441) Baseline/TESTED AT [facility] [address] [facility] [place] [address] BASIC METABOLIC [id number] 06:04:00 Test Item Value Reference Range Interpretation [...] 1092) DATA TO CALCULA TE ESTIMATED GFR. [id number] 06:02:00 Test Item Value Reference Range Interpretation Comments PHOSPHORUS (BEAKER) (test code = 3.7 mg/dL 2.3-4.7 604) [id number] 06:02:00 Test Item Value Reference Range Interpretation Comments MAGNESIUM (BEAKER) (test code = 2.0 mg/dL 1.6-2.6 627) [id number] 05:57:00 Test Item Value Reference Range Interpretation [...] 2.5-3.5 for patients wiht mechanical heart valves.PROTHROMBIN [id number] 05:56:00 Test Item Value Reference Range Interpretation [...] 2.5-3.5 for patients wiht mechanical heart valves.CALCIUM, [id number] 05:55:00 Test Item Value Reference Range Interpretation Comments CALCIUM IONIZED (BEAKER) (test 1.17 mmol/L 1.12-1.27 code = 698) PH, BLOOD (BEAKER) (test code = 7.38 1810) CBC W/PLT COUNT & AUTO [id number] 05:55:00 Test Item Value Reference Range Interpretation [...] (BEAKER) (test code = 2801) OXYGEN SATURATION, [id number] 05:49:00 Test Item Value Reference Range Interpretation Comments O2 SATURATION (MEASURED) (BEAKER) 77.2 % (test code = 1455) RAD, CHEST, 1 VIEW, NON [id number] 05:35:00Reason for exam:->post-op cardiac surgeryShould this be performed at the bedside?->YesFINAL REPORT RAD, CHEST, 1 VIEW, NON DEPT INDICATION: post-op cardiac surgery COMPARISON: Prior day's exam FINDINGS: Portable frontal view of the chest. IMPRESSION: Support Lines: Interval extubation. Otherwise unchanged support apparatus. Lungs and pleura: Unchanged airspace opacities. No pneumothorax.Heart and mediastinum: Stable contours. Stable surgical changes.Additional findings: None. Signed: [facility] Verified Date/Time: 07/30/2019 05:35:16 [id number] 18:41:00 Test Item Value Reference Range Interpretation Comments POTASSIUM (BEAKER) (test code = 4.2 meq/L 3.5-5.1 379) PRN - repeat potassium levels every 1 hour until glucose level is less than 450 mg/dLPOCT-GLUCOSE [id number] 18:14:00 Test Item Value Reference Range Interpretation Comments POC-GLUCOSE METER 175 mg/dL 70-110 H TESTED AT [facility] 67[address] (BEAKER) (test code = [place]ENDIR[place] 1538) [address] BLOOD GAS, [id number] 16:57:00 Test Item Value Reference Range Interpretation [...] (test code = 1819) 40.0 % HEMOGLOBIN [id number] 16:17:00 Test Item Value Reference Range Interpretation Comments HEMOGLOBIN A1C (BEAKER) (test code = 9.5 % 4.3-6.1 H 368) PLATELET AGGREGATION: FUNCTION [id number] 15:15:00 Test Item Value Reference Range Interpretation Comments [id number] Giovanni Tee M.D. (BEAKER) (test code = (electonic signature) 6695) PLATELET COUNT AGG 273 K/CU MM 150-450 (BEAKER) (test code = 8556) PLATELET RICH 258 k/cu mm 200-300 PLASMA(BEAKER) (test code = 2134) PLATELET FUNCTION Pattern of SCREEN INTERPRETATION disaggregation present (BEAKER) (test code = with ADP which may be 4655) characteristic of P2Y12 inhibitor effect. Correlation with medication history is required. Platelet Function Screen results may be falsely low with platelet counts<75,000/cu mm.POCT-GLUCOSE [id number] 15:07:00 Test Item Value Reference Range Interpretation Comments POC-GLUCOSE METER 125 mg/dL 70-110 H TESTED AT [place] [address] ([facility]) (test code = ERENDIRA Guzman [facility] 1538) [address] POCT-GLUCOSE [id number] 14:26:00 Test Item Value Reference Range Interpretation Comments POC-GLUCOSE METER 85 mg/dL 70-110 TESTED AT [place] [address] ([facility]) (test code = [facility] Thomas [facility] [address]38) POCT-GLUCOSE [id number] 14:14:00 Test Item Value Reference Range Interpretation Comments POC-GLUCOSE METER 88 mg/dL 70-110 TESTED AT [place] [address] ([facility]) (test code = [facility] Thomas [facility] [address] 1538) RAD, CHEST, 1 VIEW, NON [id number] 13:11:00Reason for exam:->Status post CV Surgery post [...] Verified Da te/Time: 07/29/2019 13:11:13 Reading Location: [facility] Reading Room -GLUCOSE [id number] 13:00:00 Test Item Value Reference Range Interpretation Comments POC-GLUCOSE METER 132 mg/dL 70-110 H TESTED AT [place] [address] ([facility]) (test code = [facility] 1538) [address] BASIC METABOLIC [id number] 12:28:00 Test Item Value Reference Range Interpretation [...] 1092) DATA TO CALCULA TE ESTIMATED GFR. [id number] 12:27:00 Test Item Value Reference Range Interpretation Comments PHOSPHORUS (BEAKER) (test code = 2.3 mg/dL 2.3-4.7 604) [id number] 12:27:00 Test Item Value Reference Range Interpretation Comments MAGNESIUM (BEAKER) (test code = 2.6 mg/dL 1.6-2.6 627) [id number] 12:26:00 Test Item Value Reference Range Interpretation Comments PARTIAL THROMBOPLASTIN TIME 27.4 seconds 22.5-36.0 (BEAKER) (test code = 760) PROTHROMBIN [id number] 12:25:00 Test Item Value Reference Range Interpretation [...] for patients wiht mechanical heart valves.LACTIC ACID, [id number] 12:21:00 Test Item Value Reference Range Interpretation Comments LACTATE BLOOD ARTERIAL (2) 1.2 mmol/L 0.5-2.2 (BEAKER) (test code = 2874) CBC W/PLT COUNT & AUTO [id number] 12:08:00 Test Item Value Reference Range Interpretation [...] PERCENT (BEAKER) (test code = 2801) CALCIUM, [id number] 12:04:00 Test Item Value Reference Range Interpretation Comments CALCIUM IONIZED (BEAKER) (test 1.15 mmol/L 1.12-1.27 code = 698) PH, BLOOD (BEAKER) (test code = 7.44 1810) BLOOD GAS, [id number] 12:03:00 Test Item Value Reference Range Interpretation [...] code = 1819) 60.0 % OXYGEN SATURATION, [id number] 12:00:00 Test Item Value Reference Range Interpretation Comments O2 SATURATION (MEASURED) (BEAKER) 66.6 % (test code = 1455) For occult [id number] 11:53:00 Test Item Value Reference Range Interpretation Comments PHOSPHORUS (BEAKER) (test code = 2.9 mg/dL 2.3-4.7 604) CALCIUM, [id number] 10:32:00 Test Item Value Reference Range Interpretation Comments CALCIUM IONIZED (BEAKER) (test 1.03 mmol/L 1.12-1.27 L code = 698) PH, BLOOD (BEAKER) (test code = 7.33 1810) BLOOD GAS, [id number] 10:31:00 Test Item Value Reference Range Interpretation [...] code = 1819) 100.0 % SODIUM NA-STAT [id number] 10:31:00 Test Item Value Reference Range Interpretation Comments SODIUM (BEAKER) (test code = 381) 133 meq/L 135-148 L GLUCOSE-STAT [id number] 10:31:00 Test Item Value Reference Range Interpretation Comments GLUCOSE RANDOM (BEAKER) (test code 226 mg/dL 70-110 H = 652) HGB/HCT (H&H) - STAT [id number] 10:31:00 Test Item Value Reference Range Interpretation Comments HEMOGLOBIN (BEAKER) (test code = 8.0 g/dL 12.0-15.0 L 410) HEMATOCRIT (BEAKER) (test code = 24.0 % 36.0-45.0 L 411) POTASSIUM-STAT [id number] 10:30:00 Test Item Value Reference Range Interpretation Comments POTASSIUM (BEAKER) (test code = 4.2 meq/L 3.6-5.5 379) BLOOD GAS, [id number] 10:05:00 Test Item Value Reference Range Interpretation [...] code = 1819) 80.0 % SODIUM NA-STAT [id number] 10:05:00 Test Item Value Reference Range Interpretation Comments SODIUM (BEAKER) (test code = 381) 127 meq/L 135-148 L POTASSIUM-STAT [id number] 10:05:00 Test Item Value Reference Range Interpretation Comments POTASSIUM (BEAKER) (test code = 5.9 meq/L 3.6-5.5 H 379) GLUCOSE-STAT [id number] 10:05:00 Test Item Value Reference Range Interpretation Comments GLUCOSE RANDOM (BEAKER) (test code 241 mg/dL 70-110 H = 652) HGB/HCT (H&H) - STAT [id number] 10:05:00 Test Item Value Reference Range Interpretation Comments HEMOGLOBIN (BEAKER) (test code = 8.0 g/dL 12.0-15.0 L 410) HEMATOCRIT (BEAKER) (test code = 24.0 % 36.0-45.0 L 411) BLOOD GAS, [id number] 09:51:00 Test Item Value Reference Range Interpretation [...] code = 1819) 80.0 % SODIUM NA-STAT [id number] 09:51:00 Test Item Value Reference Range Interpretation Comments SODIUM (BEAKER) (test code = 381) 130 meq/L 135-148 L GLUCOSE-STAT [id number] 09:51:00 Test Item Value Reference Range Interpretation Comments GLUCOSE RANDOM (BEAKER) (test code 249 mg/dL 70-110 H = 652) HGB/HCT (H&H) - STAT [id number] 09:51:00 Test Item Value Reference Range Interpretation Comments HEMOGLOBIN (BEAKER) (test code = 8.1 g/dL 12.0-15.0 L 410) HEMATOCRIT (BEAKER) (test code = 24.0 % 36.0-45.0 L 411) POTASSIUM-STAT [id number] 09:50:00 Test Item Value Reference Range Interpretation Comments POTASSIUM (BEAKER) (test code = 5.4 meq/L 3.6-5.5 379) BLOOD GAS, [id number] 09:23:00 Test Item Value Reference Range Interpretation [...] code = 1819) 100.0 % SODIUM NA-STAT [id number] 09:23:00 Test Item Value Reference Range Interpretation Comments SODIUM (BEAKER) (test code = 381) 132 meq/L 135-148 L GLUCOSE-STAT [id number] 09:23:00 Test Item Value Reference Range Interpretation Comments GLUCOSE RANDOM (BEAKER) (test code 164 mg/dL 70-110 H = 652) CALCIUM, [id number] 09:23:00 Test Item Value Reference Range Interpretation Comments CALCIUM IONIZED (BEAKER) (test 1.05 mmol/L 1.12-1.27 L code = 698) PH, BLOOD (BEAKER) (test code = 7.44 1810) POTASSIUM-STAT [id number] 09:22:00 Test Item Value Reference Range Interpretation Comments POTASSIUM (BEAKER) (test code = 4.0 meq/L 3.6-5.5 379) HGB/HCT (H&H) - STAT [id number] 09:22:00 Test Item Value Reference Range Interpretation Comments HEMOGLOBIN (BEAKER) (test code = 12.2 g/dL 12.0-15.0 410) HEMATOCRIT (BEAKER) (test code = 36.0 % 36.0-45.0 411) RAD, CHEST, 1 VIEW, NON [id number] 07:12:00Reason for exam:->preopShould this be performed at the bedside?->YesFINAL REPORT INDICATION: preop COMPARISON: None TECHNIQUE: Single frontal view of the chest. FINDINGS: Lungs and pleura: Clear lungs. No effusion.Heart and mediastinum: Normal heart size. Unremarkable mediastinal contours.Osseous structures: No acute abnormality.Other: None. IMPRESSION: No acute intrathoracic abnormality. Signed: Deirdre De Jesus [facility] Verified Date/Time: 07/29/2019 07:12:45 [id number] 07:01:00 Test Item Value Reference Range Interpretation Comments PARTIAL THROMBOPLASTIN TIME 31.2 seconds 22.5-36.0 (BEAKER) (test code = 760) BASIC METABOLIC [id number] 05:57:00 Test Item Value Reference Range Interpretation [...] 1092) DATA TO CALCULA TE ESTIMATED GFR. [id number] 05:51:00 Test Item Value Reference Range Interpretation Comments MAGNESIUM (BEAKER) (test code = 1.9 mg/dL 1.6-2.6 627) [id number] 05:35:00 Test Item Value Reference Range Interpretation [...] 2.5-3.5 for patients wiht mechanical heart valves.PROTHROMBIN [id number] 05:34:00 Test Item Value Reference Range Interpretation [...] mechanical heart valves.CBC W/PLT COUNT & AUTO [id number] 05:24:00 Test Item Value Reference Range Interpretation [...] 0-1 PERCENT (BEAKER) (test code = 2801) POC, COVID 19 Antigen + Flu by SofiaPOC, COVID 19 Antigen + Flu by Avril
[2023-04-11] MEDS ORDERED: FENTANYL CITR 100 MCG/2 ML ONE (10:30)
[2023-04-11] MEDS ORDERED: ONDANSETRON 4 MG/2 ML VIAL ONE (10:30)
[2023-04-11 10:32] LABS: Absolute Lymphocytes (CBC) 2.9 K/uL (0.7-4.9); Hematocrit 48.4 % (36.0-45.0); Lymphocytes % 25.2 % (15.3-44.8); MPV 8.7 fL (7.6-11.3); RBC Red Blood Cell Count 4.88 M/uL (3.86-4.86)
[2023-04-11 10:50] LABS: Albumin 3.5 g/dL (3.4-5.0); Bilirubin Total 1.1 mg/dL (0.2-1.0); Potassium 4.1 mEq/L (3.5-5.1); Protein, Total 9.3 g/dL (6.4-8.2)
--- NOTE | 2023-04-11 11:01 | RAD REPORT ---
EXAM DESCRIPTION: CT - Angio Aorta For Dissection - 04/11/2023 10:42 am CLINICAL HISTORY: Chest pain radiating to the back. Thoracic back pain;Abd pain COMPARISON: <Comparisons> TECHNIQUE: CT angiography of the aorta was performed with MIPs. All CT scans are performed using dose optimization technique as appropriate and may include automated exposure control or mA/KV adjustment according to patient size. FINDINGS: A left aortic arch is present with normal branching pattern of the great vessels.No acute aortic finding is seen such as aneurysm, penetrating ulcer or dissection. The celiac axis, SMA, SANDRA and renal arteries are patent. No evidence of pulmonary embolism. The lungs are clear. The liver demonstrates no focal mass or biliary dilatation.Cholecystectomy clips.The spleen, pancreas , adrenal glands and kidneys are within normal limits for arterial phase imaging. No bowel obstruction, free fluid or abscess.Appendectomy. Sigmoid diverticulosis coli without diverti culitis.No pathologic enlarged lymphadenopathy identified. Aortoiliac atherosclerosis.Moderate lumbar degenerative changes. IMPRESSION: No acute aortic finding is demonstrated. Sigmoid diverticulosis coli without diverticulitis.
[2023-04-11 12:14] LABS: Urine Bacteria >50 /HPF (<20); Urine Bilirubin NEGATIVE (Negative); Urine Blood Negative (Negative); Urine Clarity Clear (Clear); Urine Color Yellow (Yellow); Urine Glucose 1+ (Negative); Urine Mucus Slight /HPF (None Seen); Urine Protein TRACE (Negative); Urine Urobilinogen 1+ (Normal)
[2023-04-11 12:15] LABS: Specific Gravity > 1.030 (1.005-1.030)
--- NOTE | 2023-04-11 12:22 | ER ---
Nurse's Notes [facility] Name: Ivet Calderon Age: 72 yrs Sex: Female : 1950 Arrival Date: 04/11/2023 Time: 09:57 Bed 8 Private MD: Shant Lao Diagnosis: Abdominal pain, unspecified;UTI/ Urinary tract infection, site not specified Presentation: 04/11 10:00 Chief complaint: Patient states: Woke up with severe lower abdominal pain and mid back nj1 pain this morning. States she was nauseous and had vomited yesterday but none today. Denies diarrhea. 10:00 Coronavirus screen: Vaccine status: Patient reports being unvaccinated. Ebola Screen: nj1 Patient denies travel to an Ebola-affected area in the 21 days before illness onset. Initial Sepsis Screen: Does the patient meet any 2 criteria? HR > 90 bpm. No. Patient's initial sepsis screen is negative. Does the patient have a suspected source of infection? No. Patient's initial sepsis screen is negative. Risk Assessment: Do you want to hurt yourself or someone else? Patient reports no desire to harm self or others. Onset of symptoms was April 11, 2023. 10:00 Method Of Arrival: Ambulatory [facility] 10:00 Acuity: DORYS 3 nj1 Historical: - Allergies: 10:25 Morphine; nj1 - PMHx: 10:25 Diabetes mellitus; heart attack; Hypercholesterolemia; Hypertension; nj1 - PSHx: 10:25 Appendectomy; Stented artery; nj1 - Immunization history:: Client reports having NOT received the Covid vaccine. - Social history:: Smoking status: Patient denies any tobacco usage or history of. Screenin:32 [facility] ED Fall Risk Assessment (Adult) Score/Fall Risk Level 0 - 2 = Low Risk. Abuse iw screen: Denies threats or abuse. Denies injuries from another. Nutritional screening: No deficits noted. Tuberculosis screening: No symptoms or risk factors identified. Assessment: 10:31 General: Appears uncomfortable, Behavior is calm, cooperative. Pain: Complains of pain iw in suprapubic area, right lower quadrant and left lower quadrant. Neuro: Level of Consciousness is awake, alert, obeys commands, Oriented to person, place, time, situation, Moves all extremities. Full function. Cardiovascular: Patient's skin is warm and dry. Respiratory: Respiratory effort is even, unlabored, Respiratory pattern is regular, symmetrical. GI: Abdomen is non-distended, Bowel sounds present X 4 quads. Abd is soft X 4 quads Reports lower abdominal pain, nausea, Patient currently denies constipation, diarrhea. Derm: Skin is intact, is healthy with good turgor. Musculoskeletal: Range of motion: intact in all extremities. 12:52 Reassessment: Patient appears in no apparent distress at this time. Patient and/or iw family updated on plan of care and expected duration. Pain level reassessed. Patient is alert, oriented x 3, equal unlabored respirations, skin warm/dry/pink. Patient denies pain at this time. Patient states feeling better. Patient states symptoms have improved. Vital Signs: 10:00 BP 158 / 76; Pulse 106; Resp 20; Temp 98.1(O); Pulse Ox 99% on R/A; Weight 75.75 kg; nj1 Height 5 ft. 1 in. ; Pain 10/10; 11:11 BP 153 / 67; Pulse 71; Resp 16; Pulse Ox 100% on R/A; iw 12:52 BP 148 / 78; Pulse 79; Resp 16; Temp 98(TE); Pulse Ox 98% on R/A; Pain 0/10; iw 10:00 Body Mass Index 31.55 (75.75 kg, 154.94 cm) nj1 10:00 Pain Scale: Adult nj1 12:52 Pain Scale: Adult iw ED Course: 09:58 Patient arrived in ED. am2 09:59 Shant Lao DO is Private Physician. am2 10:00 [place] PA is PHCP. [facility] 10:00 Ray White MD is Attending Physician. [facility] 10:00 Arm band placed on. nj1 10:00 Initial lab(s) drawn, by me. Inserted saline lock: 20 gauge in right antecubital area, iw using aseptic technique. Blood collected. 10:14 Tracie Barrios, RN is Primary Nurse. iw 10:25 Triage completed. nj1 10:33 Patient has correct armband on for positive identification. iw 10:44 CT Aorta for Dissection In Process Unspecified. EDMS 11:52 Urinalysis w/ reflexes Sent. iw 12:21 Shant Lao DO is Referral Physician. [facility] 12:53 No provider procedures requiring assistance completed. IV discontinued, intact, iw bleeding controlled, No redness/swelling at site. Pressure dressing applied. Administered Medications: 10:29 Drug: Ondansetron IVP 4 mg Route: IVP; Site: right antecubital; iw 10:29 Drug: fentaNYL (PF) IVP 50 mcg Route: IVP; Site: right antecubital; iw Medication: 10:33 VIS not applicable for this client. iw Outcome: 12:21 Discharge ordered by MD. [facility] 12:53 Discharged to home ambulatory. iw 12:53 Condition: good 12:53 Discharge instructions given to patient, Instructed on discharge instructions, follow up and referral plans. medication usage, Demonstrated understanding of instructions, follow-up care, medications, Prescriptions given X 1. 12:56 Patient left the ED. iw Signatures: Dispatcher [employer] EDMS [place] Mac[place] PA PA jmm Williams, Irene, JOSE RN Ml Villavicencio 2 Elizabeth Brizuela RN RN nj1 Corrections: (The following items were deleted from the chart) 10:26 10:25 PMHx: Diabetes - NIDDM; nj1 nj1 10:26 10:26 Arm band placed on nj1 nj1
--- NOTE | 2023-04-11 12:22 | EDPHYS ---
Physician Documentation [facility] Name: Ivet Calderon Age: 72 yrs Sex: Female : 1950 Arrival Date: 04/11/2023 Time: 09:57 Bed 8 Private MD: Shilo [facility] ED Physician Ray White HPI: 04/11 10:25 This 72 yrs old Female presents to ER via Ambulatory with complaints of jmm Abdominal Pain, Back Pain. 10:25 The patient presents with abdominal pain in the lower abdomen. Onset: The jmm symptoms/episode began/occurred gradually. This is a 72 year old female with a history of dm, cad, hlp, htn that presents to the ED with complaints of lower abdominal pain which radiates to the back. Complains of nausea, denies diarrhea. Denies infectious exposure, denies recent travel. . Historical: - Allergies: 10:25 Morphine; nj1 - PMHx: 10:25 Diabetes mellitus; heart attack; Hypercholesterolemia; Hypertension; nj1 - PSHx: 10:25 Appendectomy; Stented artery; nj1 - Immunization history:: Client reports having NOT received the Covid vaccine. - Social history:: Smoking status: Patient denies any tobacco usage or history of. ROS: 10:25 Constitutional: Negative for fever, chills, and weight loss, Cardiovascular: Negative jmm for chest pain, palpitations, and edema, Respiratory: Negative for shortness of breath, cough, wheezing, and pleuritic chest pain. 10:25 Abdomen/GI: Positive for abdominal pain. 10:25 All other systems are negative. Exam: 10:25 Constitutional: This is a well developed, well nourished patient who is awake, alert, jmm and in no acute distress. Head/Face: atraumatic. Eyes: EOMI, no conjunctival erythema appreciated ENT: Moist Mucus Membranes Neck: Trachea midline, Supple Chest/axilla: Normal chest wall appearance and motion. Cardiovascular: Regular rate and rhythm. No edema appreciated Respiratory: Normal respirations, no respiratory distress appreciated 10:25 Back: Normal ROM Skin: General appearance color normal MS/ Extremity: Moves all extremities, no obvious deformities appreciated, no edema noted to the lower extremities Neuro: Awake and alert Psych: Behavior is normal, Mood is normal, Patient is cooperative and pleasant 10:25 Abdomen/GI: Inspection: abdomen appears normal, Bowel sounds: normal, Palpation: soft, in the right lower quadrant and left lower quadrant, mild abdominal tenderness, in the suprapubic area, right lower quadrant and left lower quadrant. Vital Signs: 10:00 BP 158 / 76; Pulse 106; Resp 20; Temp 98.1(O); Pulse Ox 99% on R/A; Weight 75.75 kg; nj1 Height 5 ft. 1 in. ; Pain 10/10; 11:11 BP 153 / 67; Pulse 71; Resp 16; Pulse Ox 100% on R/A; iw 12:52 BP 148 / 78; Pulse 79; Resp 16; Temp 98(TE); Pulse Ox 98% on R/A; Pain 0/10; iw 10:00 Body Mass Index 31.55 (75.75 kg, 154.94 cm) nj1 10:00 Pain Scale: Adult nj1 12:52 Pain Scale: Adult iw MDM: 10:07 Patient medically screened. [facility] 12:21 Differential diagnosis: AAA, pancreatitis, Peptic Ulcer Disease, Perf. Duodenal Ulcer, [facility] Pyelonephritis, Ureterolithiasis. Data reviewed: vital signs, nurses notes, lab test result(s), radiologic studies, CT scan. Consideration of Admission/Observation. I considered the following discharge prescriptions or medication management in the emergency department Medications were administered in the Emergency Department. See MAR. Counseling: I had a detailed discussion with the patient and/or guardian regarding: the historical points, exam findings, and any diagnostic results supporting the discharge/admit diagnosis, lab results, radiology results, the need for outpatient follow up, to return to the emergency department if symptoms worsen or persist or if there are any questions or concerns that arise at home. 12:21 ED course: Pain relieved in the ED. Patient states feeling much better. Advised to [facility] follow up with pcp/gi for further evalation. Patient otherwise given strict return precautions. patient understood and agrees with the plan of care. . 04/11 10:08 Order name: CBC with Diff; Complete Time: 10:57 [facility] 04/11 10:08 Order name: CMP; Complete Time: 10:57 [facility] 04/11 10:08 Order name: Lipase; Complete Time: 10:57 [facility] 04/11 11:06 Order name: Urinalysis w/ reflexes; Complete Time: 12:21 [facility] 04/11 12:18 Order name: Urine Culture [facility] 04/11 10:28 Order name: CT Aorta for Dissection; Complete Time: 11:06 [facility] 04/11 10:08 Order name: IV Saline Lock; Complete Time: 10: [facility] 04/11 10:08 Order name: Labs collected and sent; Complete Time: : [facility] Administered Medications: 10: Drug: Ondansetron IVP 4 mg Route: IVP; Site: right antecubital; iw 10:29 Drug: fentaNYL (PF) IVP 50 mcg Route: IVP; Site: right antecubital; iw Disposition: 17:28 I reviewed the patient's care provided by the Advanced Practice Provider and agree with sonja the diagnosis and treatment plan. Disposition Summary: 04/11/23 12:21 Discharge Ordered Location: Home [facility] Condition: Stable [facility] Diagnosis - Abdominal pain, unspecified jmm - UTI/ Urinary tract infection, site not specified [facility] Followup: [facility] - With: Shant Lao, DO - When: 2 - 3 days - Reason: Recheck today's complaints, Continuance of care, Re-evaluation by your physician Discharge Instructions: - Discharge Summary Sheet jm - Abdominal Pain, Adult jm - Urinary Tract Infection, Adult [facility] Forms: - Medication Reconciliation Form [facility] - Thank You Letter [facility] - Antibiotic Education [facility] - Prescription Opioid Use [facility] - [email or web address] [facility] Prescriptions: - cefpodoxime 200 mg Oral Tablet - take 1 tablet by ORAL route every 12 hours for 10 days with food; 20 tablet; [facility] Refills: 0, Product Selection Permitted Signatures: Dispatcher [employer] EDMS [place] PA PA m Tracie Barrios, RN Ray Martinez MD MD [id number] Elizabeth Brizuela RN RN nj1 Corrections: (The following items were deleted from the chart) 10:18 10:09 Abdomen Limited+US.RAD.BRZ ordered. [facility] EDMS 10: 10:25 PMHx: Diabetes - NIDDM; nj1 nj1
[2023-04-11 13:18] VITALS: BP 148/78; TEMP 98; O2SAT 98
== END 2023-04-11 12:56 | disposition home or self-care (01) ==
LOC: ER 09:57
DX: N39.0 Urinary tract infection, site not specified (principal); R10.30 Lower abdominal pain, unspecified; E11.9 Type 2 diabetes mellitus without complications; I10 Essential (primary) hypertension; E78.00 Pure hypercholesterolemia, unspecified; Z88.5 Allergy status to narcotic agent
CPT/HCPCS: 87088; 85025; 81001; 87086; 36415; 83690; 80053; 71275; 74175; Q9967; J3010; J2405

== ENCOUNTER 2023-05-19 19:05 | Emergency (ER) | payer OTHER ==
--- OUTSIDE RECORDS SUMMARY | 2023-05-19 19:16 | XMS REPORT | Continuity of Care Document ---
:1950 Author Organization [facility] t Address [address] [place] [address] [place] [id number] Care Team Providers Name Role Phone AMANDA [...] Clinician Charlette Barber Attending Clinician Doctor Unassigned, Sharpes Attending Clinician Unavailable Juan Gallardo MD Attending Clinician [phone] Maribell Moe MD Attending Clinician Ige-Madyson_J_AH Attending Clinician Unavailable YAMEL MONIQUE Attending Clinician Unavailable JUAN GALLARDO Admitting Clinician Unavailable ALDEN ISAACS Admitting Clinician Unavailable Last-Madyson_Kaylynn_AH Admitting Clinician Unavailable YAMEL MONIQUE Admitting Clinician Unavailable Payers Payer Name Policy Type Policy Number Effective Date Expiration Date Ad STEPHEN O [id number] 2018 ALL 00:00:00 Beeminder [id number] 2022spring 00:00:00 HUMANA MEDICARE C1 [id number] [facility] HUMANA MEDICARE C1 [id number] [facility] HUMANA MEDICARE C1 [id number] [facility] - [facility] HUMANA MEDICARE C1 [id number] [facility] - [facility] HUMANA GOLD PLS [id number] 2021 O 00:00:00 [facility] [place] [id number] [facility] (MEDICARE REPLACEMENT/ADV ANTAGE - HMO) Problems Condition Condition Condition Status Onset Resolution Last Treating Co mments Source Name Details Category Date Date Treatment Clinician Date Left Left Disease Active 2019-[address] [facility] carotid carotid 2-07 kes artery artery 00:00: Medical stenosis stenosis 00 Center S/P CABG x S/P CABG x Disease Active 2018-[address] 1 by 1 by 0-16 Reji Gallardo on [facility] on 00:00: Me dical 07/29/2019 07/29/2019 00 Ce nter Coronary Coronary Disease Active 2018-10 [facility] t artery artery 0-15 [facility] disease disease 00:00: Medical 00 Center Other Other Disease Active Overview: Salvatore s appendicit appendicit 6-06 Formattin ity of is is 00:00: g of this [place] 00 note Medical might be Branch different from the original. Added automatic ally from request for surgery [id number] HLD HLD Disease Active Univers (hyperlipi (hyperlipi 7- it y of demia) demia) 00:00: [place] 00 Medical Branch Abnormal Abnormal Disease Active Unive rs EKG EKG 04-18 ity of 00:00: [place] 00 Medical Branch Anemia of Anemia in Problem Com mon chronic chronic Spirit disorder illness - [facility] Anemia due Anemia, Problem Comm on to blood blood loss Spir it loss - [facility] Type II Diabetic Problem Common diabetes eye exam Spirit mellitus - [facility] without [facility] complicati [employer] [id number] Demand Problem Common ischemia Spirit - [facility] [id number] Stenosis Problem Comm on of right Spirit vertebral - CHI artery [facility] Laboratory Abnormal Problem Com mon test laboratory Spirit result test - [facility] abnormal [facility] [id number] Other Problem Common obesity Spirit due to - [facility] excess [facility] [id number] Body mass Problem Com mon index Spirit [BMI] - [facility] 31.0-31.9, [facility] [id number] Mixed Problem Common hyperlipid Spirit emia - [facility] [id number] Stented Problem Commo n coronary Spirit artery - [facility] [id number] Essential Problem Comm on (primary) Spirit hypertensi - CHI on [facility] [id number] Essen Problem Common hyperten Spirit preg-unsp - [facility] [id number] Coronary Problem Comm on artery Spirit disease - [facility] involving [facility] coronary Medical artery of [place] [facility] with other form of angina pectoris [id number] Type 2 Problem Common diabetes Spirit mellitus - CHI with [facility] hyperglyce [facility], Medical without Center long-term current use of insulin [id number] Iron Problem Common deficiency Spirit anemia, - CH[facility] unspecifie [facility] iron [facility] deficiency Medica l anemia Center type [id number] 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, St unspecifie [facility] d trigger Medical Center 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 - CHI thrombosis thrombosis St of of [facility] cerebral unspecifie Medi albert arteries d Center posterior cerebral artery Angina Angina Problem Common pectoris pectoris, Spiri t unspecifie - CHI d [facility] Acute Acute Disease Recurre [facility] respirator respirator nce Daniela kes y y Medical insufficie insufficie Ce nter ncy ncy Acute Acute Disease Active [facility] blood loss blood loss Daniela kes anemia anemia Medical Center Hyperglyce Hyperglyce Disease Active [facility] keyona keyona [facility] Chronic Chronic Disease Active CHI [...] INGREDI 06-18 ity of 00:00: [place] 00 [facility] Morphine Propensi Active 2019-[address] ty to 11-14 [facility] adverse 00:00: Medical reaction 00 Center s MORPHINE Allergy Active 2019-[address] 11-14 [facility] 00:00: Medical 00 Center morphine morphine Active [place] [facility] - [facility] NO KNOWN Drug Active Univers ALLERGIE Class ity of S [facility] NO KNOWN Allergy Active [facility] ALLERGIE S Family History Family Member Diagnosis Comments Start Date Stop Date Source Natural brother Heart attack [facility] Natural father Diabetes [facility] Natural father Heart disease [facility] Natural mother Diabetes [facility] Natural mother Heart attack [facility] Social History Social Habit Start Date Stop Date Quantity Comments Source History of Common Spirit - Tobacco Use [facility] History SDOH [facility] Alcohol Comment Medical C enter History SDOH [facility] Alcohol Std Medical Cente r Drinks History SDOH [facility] Alcohol Binge Medical Tina ter Exposure to 2023-02-09 2023-02-19 Not sure University SARS-CoV-2 00:00:00 15:54:00 [facility] (event) [place] Alcohol intake 2020-10-03 2020-10-[address] Dhruv es 00:00:00 00:00:00 non-drinker of Medical Ce nter alcohol (finding) History SDOH 2019-07-29 2019-07-[address] [facility] Alcohol Frequency 00:00:00 00:00:00 [facility] Tobacco use and 2019-03-19 2019-03-19 Smokeless tobacco Un iversity of exposure 00:00:00 00:00:00 non-user [facility] Sex Assigned At [address] Daniela kes 00:00:00 00:00:00 Medical Center Smoking Status Start Date Stop Date Source Never Smoker Common [facility] - [facility] Medications Ordered Filled Start Stop Current Ordering Indication Dosage Frequency Signature Comments Components Source Medication Medication Date Date Medication? Clinician (SIG) Name Name cefTRIAXone 2022- No 1000mg 1,000 mg, Univers (ROCEPHIN) 5- 05-10 IV ity of 1,000 mg in 01:15: 01:44 [facility] [place] NaCl 0.9% 00 :00 ONCE, 1 Medical (NS) 100 mL dose, On Bran ch MINI-BAG Sat02/19/23 at 2014, Administer over 30 Minutes, 100 mL
Reas on for Anti-Infec tive: Documented Infection< br>Documen zoë Infection Site: Urine<br&g t;Duration of Therapy: 7 days hydralAZINE 2022- No 10mg 10 mg, Uni vers (APRESOLINE 5-10 05-10 Slow IV ity of ) injection 01:15: 01:16 [place] 10 mg 00 :00 ONCE, 1 Medical dose, On Branch Sat02/19/23 at 2014, JASON Nitrofurant 2022- Yes [id number] 100mg Take 1 Univers oin&Nit. 02-19 capsule [...] Restricted medication : CAROL ANN BEATTY HYDROcodone No 1{tbl} 1 tablet, Univers -acetaminop 06-18 Oral, ity of hen (NORCO) 16:45: 15:41 [place]325 mg 00 :00 dose, Table [place] [facility] tablet 1 06/18/21 at Branch tablet 1145, Routine clopidogreL Yes 75mg Take 75 mg Univers 75 mg 06-18 by mouth. ity of tablet 16:10: [address] metoprolol Yes 25mg Take 25 mg U nivers tartrate 06-18 by mouth. ity of mg tablet 16:10: [address] clopidogreL Yes 75mg Take 75 mg Univers 75 mg 06-18 by mouth. ity of tablet 16:10: [address] metoprolol Yes 25mg Take 25 mg U nivers tartrate 06-18 by mouth. ity of mg tablet 16:10: [address] clopidogreL Yes 75mg Take 75 mg Univers 75 mg 05 by mouth. ity of tablet 16:10: [address] metoprolol Yes 25mg Take 25 mg U nivers tartrate 06-18 by mouth. ity of mg tablet 16:10: [address] clopidogreL Yes 75mg Take 75 mg Univers 75 mg 05 by mouth. ity of tablet 16:10: [address] metoprolol Yes 25mg Take 25 mg U nivers tartrate 06-18 by mouth. ity of mg tablet 16:10: [address] clopidogreL Yes 75mg Take 75 mg Univers 75 mg 06-18 by mouth. ity of tablet 16:10: [address] metoprolol Yes 25mg Take 25 mg U nivers tartrate 06-18 by mouth. ity of mg tablet 16:10: [address] atorvastati 2020- No 80mg Take 80 mg Univers n 40 mg 06-18 by mouth. ity of tablet 16:10: 00:00 [place] : [facility] metFORMIN 2020- No 850mg Take 850 Un zia 850 mg 06-18 mg by ity of tablet 16:10: 00:00 mouth. [place] : [facility] clopidogreL Yes 75mg Take 75 mg Univers 75 mg 06-18 by mouth. ity of tablet 11:10: [address] metoprolol Yes 25mg Take 25 mg U nivers tartrate 06-18 by mouth. ity of mg tablet 11:10: [address] traMADoL 50 2020- No [id number] 50mg [...] 2-21 by mouth [facility] tablet 11:03: daily. [address] atorvastati 2019-10 Yes 80mg QD Take [address] n (LIPITOR) 2-21 by mouth Luke s 40 MG 11:03: daily . Medical tablet [address] [place] [address] metFORMIN 2019-10 Yes 850mg Take [address] (GLUCOPHAGE 2-21 mg by [facility]ukes ) 850 MG 11:03: mouth 2 Medica l tablet 52 (two) Center times daily with breakfast and dinner. clopidogreL 2019-10 Yes 75mg QD Take [address] (PLAVIX) 75 2-21 by mouth Luke s mg tablet 11:03: daily. Medica l [address] [place] [address] metoprolol 2019-10 Yes 25mg Q.5D Take [address] tartrate 2-21 by mouth 2 [facility]ukes (LOPRESSOR) 11:03: (two) Medic al 25 MG 52 times Center tablet daily. aspirin 81 2019-10 Yes 81mg QD Take [address] MG EC 2-21 by mouth [facility]ukes tablet 11:03: daily. [address] atorvastati 2019-10 Yes 80mg QD Take [address] n (LIPITOR) 2-21 by mouth Luke s 40 MG 11:03: daily . Medical tablet [address] [place] [address] metFORMIN 2019-10 Yes 850mg Take [address] (GLUCOPHAGE 2-21 mg by Lukes ) 850 MG 11:03: mouth 2 Medica l tablet 52 (two) Center times daily with breakfast and dinner. clopidogreL 2019-10 Yes 75mg QD Take [address] (PLAVIX) 75 2-21 by mouth Luke s mg tablet 11:03: daily. [address] metoprolol 2019-10 Yes 25mg Q.5D Take [address] tartrate 2-21 by mouth 2 [facility]ukes (LOPRESSOR) 11:03: (two) Medic al 25 MG 52 times Center tablet daily. aspirin 81 2019-10 Yes 81mg QD Take [address] MG EC 2-21 by mouth [facility]ukes tablet 11:03: daily. [address] atorvastati 2019-10 Yes 80mg QD Take [address] n (LIPITOR) 2-21 by mouth Luke s 40 MG 11:03: daily . Medical tablet [address] [place] [address] metFORMIN 2019-10 Yes 850mg Take [address] (GLUCOPHAGE 2-21 mg by [facility]ukes ) 850 MG 11:03: mouth 2 Medica l tablet 52 (two) Center times daily with breakfast and dinner. clopidogreL 2019-10 Yes 75mg QD Take [address] (PLAVIX) 75 2-21 by mouth Luke s mg tablet 11:03: daily. [address] metoprolol 2019-10 Yes 25mg Q.5D Take [address] tartrate 2-21 by mouth 2 [facility] (LOPRESSOR) 11:03: (two) Medic al 25 MG 52 times Center tablet daily. aspirin 81 2019-10 Yes 81mg QD Take [address] MG EC 2-21 by mouth Lukes tablet 11:03: daily. [address] atorvastati 2019-10 Yes 80mg QD Take [address] n (LIPITOR) 2-21 by mouth Luke s 40 MG 11:03: daily . Medical tablet [address] [place] [address] metFORMIN 2019-10 Yes 850mg Take [address] (GLUCOPHAGE 2-21 mg by Lukes ) 850 MG 11:03: mouth 2 Medica l tablet 52 (two) Center times daily with breakfast and dinner. clopidogreL 2019-10 Yes 75mg QD Take [address] (PLAVIX) 75 2-21 by mouth Luke s mg tablet 11:03: daily. [address] metoprolol 2019-10 Yes 25mg Q.5D Take [address] tartrate 2-21 by mouth 2 [facility]ukes (LOPRESSOR) 11:03: (two) Medic al 25 MG 52 times Center tablet daily. aspirin 81 2019-10 Yes 81mg QD Take [address] MG EC 2-21 by mouth Lukes tablet 11:03: daily. [address] [facility] 2019-10 Yes 80mg QD Take [address] n (LIPITOR) 2-21 by mouth Luke s 40 MG 11:03: daily . Medical [address] metFORMIN 2019-10 Yes 850mg Take [address] (GLUCOPHAGE 2-21 mg by Lukes ) 850 MG 11:03: mouth 2 Medica l tablet 52 (two) Center times daily with breakfast and dinner. clopidogreL 2019-10 Yes 75mg QD Take [address] (PLAVIX) 75 2-21 by mouth Luke s mg tablet 11:03: daily. Medica [address] metoprolol 2019-10 Yes 25mg Q.5D Take [address] tartrate 2-21 by mouth 2 [facility]ukes (LOPRESSOR) 11:03: (two) Medic al 25 MG 52 times Center tablet daily. aspirin 81 2019-10 Yes 81mg QD Take [address] MG EC 2-21 by mouth Lukes tablet 11:03: daily. [address] [facility] Yes 80mg QD Take [address] n (LIPITOR) 2-21 by mouth Luke s 40 MG 11:03: daily . [address] metFORMIN 2019-10 Yes 850mg Take [address] (GLUCOPHAGE 2-21 mg by Lukes ) 850 MG 11:03: mouth 2 Medica l tablet 52 (two) Center times daily with breakfast and dinner. clopidogreL 2019-10 Yes 75mg QD Take [address] (PLAVIX) 75 2-21 by mouth Luke s mg tablet 11:03: daily. Medica [address] metoprolol 2019-10 Yes 25mg Q.5D Take [address] tartrate 2-21 by mouth 2 [facility]ukes (LOPRESSOR) 11:03: (two) Medic al 25 MG 52 times Center tablet daily. aspirin 81 2019-10 Yes 81mg QD Take [address] MG EC 2-21 by mouth Lukes tablet 11:03: daily. [address] [facility] 2020-1 Yes 80mg QD Take [address] n (LIPITOR) 2-21 by mouth Luke s 40 MG 11:03: daily . Medical tablet 52 [place] metFORMIN 2019-10 Yes 850mg Take [address] (GLUCOPHAGE 2-21 mg by Lukes ) 850 MG 11:03: mouth 2 Medica l tablet 52 (two) Center times daily with breakfast and dinner. clopidogreL 2019-10 Yes 75mg QD Take [address] (PLAVIX) 75 2-21 by mouth Luke s mg tablet 11:03: daily. Medica l [address] [place] [address] metoprolol 2019-10 Yes 25mg Q.5D Take [address] tartrate 2-21 by mouth 2 Lukes (LOPRESSOR) 11:03: (two) Medic al 25 MG 52 times Center tablet daily. aspirin 81 2019-10 Yes 81mg QD Take [address] MG EC 2-21 by mouth Lukes tablet 11:03: daily. [address] atorvastati 2019-10 Yes 80mg QD Take [address] n (LIPITOR) 2-21 by mouth Luke s 40 MG 11:03: daily . Medical tablet [address] [place] [address] metFORMIN 2019-10 Yes 850mg Take [address] (GLUCOPHAGE 2-21 mg by Lukes ) 850 MG 11:03: mouth 2 Medica l tablet 52 (two) Center times daily with breakfast and dinner. clopidogreL 2019-10 Yes 75mg QD Take [address] (PLAVIX) 75 2-21 by mouth Luke s mg tablet 11:03: daily. Medica [address] metoprolol 2019-10 Yes 25mg Q.5D Take [...] hours as needed for pain. losartan 2019-10 2020- No 25mg QD Take [address] (COZAAR) 25 11-14 by mouth Dhruv es MG tablet 13:32: 00:00 daily. Medic al 26 :00 Center losartan 2019-10 2020- No 25mg QD Take [address] (COZAAR) 25 11-14 by mouth Dhruv es MG tablet 13:32: 00:00 daily. Medic al 26 :00 [place] acetaminoph 2019-10- No 1{tbl} Take 1 C [...] s MG tablet 00:00: daily. Medica l [place] citalopram 2019-10 Yes 20mg QD Take [address] (CeleXA) 20 0-14 by mouth Luke s MG tablet 00:00: daily. Medica l [place] citalopram 2019-10 Yes 20mg QD Take [address] (CeleXA) 20 0-14 by mouth Luke s MG tablet 00:00: daily. Medica l [place] citalopram 2019-10 Yes 20mg QD Take [address] (CeleXA) 20 0-14 by mouth Luke s MG tablet 00:00: daily. Medica l [place] citalopram 2019-10 Yes 20mg QD Take [address] (CeleXA) 20 0-14 by mouth Luke s MG tablet 00:00: daily. Medica l [place] citalopram 2019-10 Yes 20mg QD Take [address] (CeleXA) 20 0-14 by mouth Luke s MG tablet 00:00: daily. Medica l [place] citalopram 2019-10 Yes 20mg Take 20 mg U nivers 20 mg 0-14 by mouth. ity of tablet 00:00: [address] citalopram 2019-10 Yes 20mg QD Take [address] (CeleXA) 20 0-14 by mouth Luke s MG tablet 00:00: daily. Medica [address] citalopram 2019-10 Yes 20mg Take 20 mg U nivers 20 mg 0-14 by mouth. ity of tablet 00:00: [address] citalopram 2019-10 Yes 20mg Take 20 mg U nivers 20 mg 0-14 by mouth. ity of tablet 00:00: [address] citalopram 2019-10 Yes 20mg Take 20 mg U nivers 20 mg 0-14 by mouth. ity of tablet 00:00: [address] citalopram 2019-10 Yes 20mg Take 20 mg U nivers 20 mg 0-14 by mouth. ity of tablet 00:00: [address] citalopram 2019-10 Yes 20mg Take 20 mg U nivers 20 mg 0-14 by mouth. ity of tablet 00:00: [address] citalopram 2019-10 Yes 20mg QD Take [address] (CeleXA) 20 0-14 by mouth Luke s MG tablet 00:00: daily. Medica l [address] [place] [address] metoprolol 2018-10- No 25mg Q.5D Take 1 [...] daily . Medi albert MG tablet 00 [place] lisinopril 2019-0 Yes 40mg QD Take [address] (PRINIVIL,Z 6-24 by mouth Luke s ESTRIL) 20 00:00: daily . Medi albert MG tablet 00 [place] lisinopril 2019-0 Yes 40mg QD Take [address] (PRINIVIL,Z 6-24 by mouth Luke s ESTRIL) 20 00:00: daily . Medi albert MG tablet 00 [place] lisinopril 2019-0 Yes 40mg QD Take [address] (PRINIVIL,Z 6-24 by mouth Luke s ESTRIL) 20 00:00: daily . Medi albert MG tablet 00 [place] lisinopril [address] Yes 40mg QD Take [address] (PRINIVIL,Z 6-24 by mouth Luke s ESTRIL) 20 00:00: daily . Medi albert MG tablet 00 [place] lisinopril [address] Yes 40mg QD Take [address] (PRINIVIL,Z 6-24 by mouth Luke s ESTRIL) 20 00:00: daily . Medi albert MG tablet 00 [place] lisinopril 2019-0 Yes 40mg QD Take [address] (PRINIVIL,Z 6-24 by mouth Luke s ESTRIL) 20 00:00: daily . Medi albert MG tablet 00 [place] amLODIPine 0 Yes 5mg Take 1 Unive [...] due to financial issues atorvastati 2018-0 Yes [id number] 40mg Take 1 Univers n 40 mg [...] due to financial issues atorvastati 2018- Yes [id number] 40mg Take 1 Univers n 40 mg [...] due to financial issues atorvastati 2019-0 Yes [id number] 40mg Take 1 Univers n 40 mg [...] due to financial issues atorvastati 2019-0 Yes [id number] 40mg Take 1 Univers n 40 mg [...] due to financial issues atorvastati 2019-0 Yes [id number] 40mg Take 1 Univers n 40 mg [...] while due to financial issues atorvastati Yes [id number] 40mg Take 1 Univers n 40 mg 6-24 tablet by ity of tablet 00:00: mouth at [place] 00 bedtime. Medical Branch amLODIPine Yes 5mg Take 1 Unive rs 5 mg tablet 6-24 tablet by ity of 00:00: mouth [place] 00 daily. Medical Indication Branch s: hasn't taken in a while due to financial issues hydroCHLORO 2018- Yes 12.5mg Take 1 Un zia thiazide 6-24 capsule by ity o f 12.5 mg 00:00: mouth [place] capsule 00 daily. Medical Indication Branch s: hasn't taken in a while due to financial issues lisinopril Yes 40mg QD Take [address] (PRINIVIL,Z 6-24 by mouth Luke s ESTRIL) 20 00:00: daily . Medi albert MG tablet 00 [place] lisinopril Yes 20mg Take 1 Unive rs 20 mg 6-24 tablet by ity of tablet 00:00: mouth 2 (two) Medical times Branch daily. Indication s: hasn't taken in a while due to financial issues atorvastati Yes [id number] 40mg Take 1 Univers n 40 mg [...] a while due to financial issues lisinopril 20190 Yes 20mg Take 1 Unive rs 20 mg 6-24 tablet by ity of tablet 00:00: mouth 2 (two) Medical times Branch daily. Indication s: hasn't taken in a while due to financial issues atorvastati Yes [id number] 40mg Take 1 Univers n 40 mg 6-24 tablet by ity of tablet 00:00: mouth at [place] 00 bedtime. Medical Branch traMADOL 50 2019-0 Yes [id number] 50mg Take 1 Univers mg tablet 6-17 tablet by ity o f 00:00: mouth [place] 00 every 6 Medical (six) Branch hours as needed for Pain (scale 7-10). traMADOL 50 2019-0 Yes [id number] 50mg Take 1 Univers mg tablet 6-17 tablet by ity o f 00:00: mouth [place] 00 every 6 Medical (six) Branch hours as needed for Pain (scale 7-10). traMADOL 50 2019-0 Yes [id number] 50mg Take 1 Univers mg tablet 6-17 tablet by ity o f 00:00: mouth [place] 00 every 6 Medical (six) Branch hours as needed for Pain (scale 7-10). traMADOL 50 2018-0 Yes [id number] 50mg Take 1 Univers mg tablet 6-17 tablet by ity o f 00:00: mouth [place] 00 every 6 Medical (six) Branch hours as needed for Pain (scale 7-10). traMADOL 50 2018-0 Yes [id number] 50mg Take 1 Univers mg tablet 6-17 tablet by ity o f 00:00: mouth [place] 00 every 6 Medical (six) Branch hours as needed for Pain (scale 7-10). traMADOL 50 2018-0 Yes [id number] 50mg Take 1 Univers mg tablet 6-17 tablet by ity o f 00:00: mouth [place] 00 every 6 Medical (six) Branch hours as needed for Pain (scale 7-10). traMADOL 50 2019-0 Yes [id number] 50mg Take 1 Univers mg tablet 6-17 tablet by ity o f 00:00: mouth [place] 00 every 6 Medical (six) Branch hours as needed for Pain (scale 7-10). traMADOL 50 2019-0 Yes [id number] 50mg Take 1 Univers mg tablet 6-17 [...] due to financial issues amoxicillin 2019-0 Yes [id number] 1{tbl} Take 1 Univers -clavulanat 6-13 tablet by ity of e 00:00: mouth 2 [place] (AUGMENTIN) 00 (two) Medical 875-125 mg times Branch per tablet daily. amoxicillin 2019-0 Yes [id number] 1{tbl} Take 1 Univers -clavulanat 6-13 tablet by ity of e 00:00: mouth 2 [place] (AUGMENTIN) 00 (two) Medical 875-125 mg times Branch per tablet daily. amoxicillin 2018-2020- No [id number] 1{tbl} Take 1 Univers -clavulanat 6-26 06-05 tablet by it y of e 00:00: [...] 00:00: mouth [place] 00 daily. Medical Branch Metoprolol Metoprolol No Metoprolol Succinate Succinate Succinate [...] MG 80 MG 80 MG Aspir-81 81 Aspir- 81 No 1{table [...] MG 80 MG 80 MG Aspir-81 81 - 81 No 1{table [...] 850 MG t_with_ HCl 850 MG a_meal} Immunizations Ordered Immunization Filled Immunization Date Status Commen ts Source Name Name Prevnar 20 (PCV20) Prevnar 20 (PCV20) 2023-02-12 Completed [facility] 17:13:00 - [facility] Prevnar 20 (PCV20) Prevnar 20 (PCV20) 2023-02-12 Completed [facility] 17:13:00 - [facility] Prevnar 20 (PCV20) Prevnar 20 (PCV20) 2023-02-12 Completed [facility] 17:13:00 - [facility] Prevnar 20 (PCV20) Prevnar 20 (PCV20) 2023-02-12 Completed [facility] 17:13:00 [facility] Vital Signs Vital Name Observation Time Observation Value Comments Source HEIGHT 2020-09-19 09:05:00 154.9 cm WEIGHT 2020-09-19 09:05:00 75.615 kg Systolic blood 2023-02-20 02:31:00 163 mm[Hg] Univer sity of pressure [facility] Diastolic blood 2023-02-20 02:31:00 70 mm[Hg] Unive rsity of [facility] Heart rate 2023-02-20 02:31:00 94 /min [facility] Respiratory rate 2023-02-20 02:31:00 22 /min [facility] Oxygen saturation in 2023-02-20 02:31:00 96 /min University Arterial blood by [facility] Pulse oximetry Branch Body temperature 2023-02-19 20:52:00 37.11 [place] [facility] Body height 2023-02-19 20:52:00 154.9 cm Universi ty [facility] Body weight 2023-02-19 20:52:00 76.658 kg Universi ty [facility] BMI 2023-02-19 20:52:00 31.93 kg/m2 Universi ty [facility] height 2022-11-15 15:20:00 61 [in_i] [facility] weight 2022-11-15 15:20:00 175.3 [lb_av] [facility] temperature 2022-11-15 15:20:00 96.8 [degF] [facility] bmi 2022-11-15 15:20:00 33.12 kg/m2 [facility] oximetry 2022-11-15 15:20:00 95 % [facility] respiratory rate 2022-11-15 15:20:00 17 /min Comm on [facility] blood pressure 2022-11-15 15:20:00 138 mm[Hg] [facility] - systolic [facility] blood pressure 2022-11-15 15:20:00 78 mm[Hg] [facility] - diastolic [facility] height 2022-10-19 15:20:00 61 [in_i] [facility] weight 2022-10-19 15:20:00 174.0 [lb_av] [facility] temperature 2022-10-19 15:20:00 97.4 [degF] [facility] bmi 2022-10-19 15:20:00 32.87 kg/m2 [facility] oximetry 2022-10-19 15:20:00 97 % [facility] respiratory rate 2022-10-19 15:20:00 18 /min Comm on [facility] blood pressure 2022-10-19 15:20:00 138 mm[Hg] Common [facility] - systolic [facility] blood pressure 2022-10-19 15:20:00 70 mm[Hg] Common [facility] - diastolic [facility] height 2022-08-06 16:40:00 61 [in_i] [facility] weight 2022-08-06 16:40:00 167 [lb_av] Common [facility] temperature 2022-08-06 16:40:00 97.1 [degF] Common S pirit [facility] bmi 2022-08-06 16:40:00 31.55 kg/m2 [facility] oximetry 2022-08-06 16:40:00 98 % Common [facility] respiratory rate 2022-08-06 16:40:00 18 /min Comm on [facility] blood pressure 2022-08-06 16:40:00 148 mm[Hg] Common [facility] - systolic [facility] blood pressure 2022-08-06 16:40:00 78 mm[Hg] Common [facility] - diastolic [facility] height 2022-07-05 16:40:00 61 [in_i] Common [facility] weight 2022-07-05 16:40:00 169.0 [lb_av] Common [facility] temperature 2022-07-05 16:40:00 98.0 [degF] Common S pirit [facility] bmi 2022-07-05 16:40:00 31.93 kg/m2 Common S [facility] oximetry 2022-07-05 16:40:00 96 % Common [facility] respiratory rate 2022-07-05 16:40:00 17 /min Comm on [facility] blood pressure 2022-07-05 16:40:00 137 mm[Hg] Common [facility] - systolic [facility] blood pressure 2022-07-05 16:40:00 70 mm[Hg] Common [facility] - diastolic [facility] height 2022-04-23 11:20:00 61 [in_i] Common S pirit [facility] weight 2022-04-23 11:20:00 165.3 [lb_av] [facility] temperature 2022-04-23 11:20:00 97.3 [degF] Common S pirit - [facility] bmi 2022-04-23 11:20:00 31.23 kg/m2 Common S pirit [facility] oximetry 2022-04-23 11:20:00 96 % Common S pirit [facility] respiratory rate 2022-04-23 11:20:00 17 /min Comm on [facility] blood pressure 2022-04-23 11:20:00 138 mm[Hg] Common [facility] - systolic [facility] blood pressure 2022-04-23 11:20:00 77 mm[Hg] Common [facility] - diastolic [facility] height 2022-01-04 13:50:00 61 [in_i] [facility] 2022-01-04 13:50:00 166.1 [lb_av] [facility] temperature 2022-01-04 13:50:00 97.5 [degF] Common S pirit [facility] bmi 2022-01-04 13:50:00 31.38 kg/m2 Common S pirit [facility] oximetry 2022-01-04 13:50:00 97 % Common S pirit [facility] respiratory rate 2022-01-04 13:50:00 16 /min Comm on [facility] blood pressure 2022-01-04 13:50:00 142 mm[Hg] [facility] - systolic [facility] blood pressure 2022-01-04 13:50:00 75 mm[Hg] Common [facility] - diastolic [facility] height 2022-01-04 14:00:00 61 [in_i] Common S pirit [facility] weight 2022-01-04 14:00:00 166.1 [lb_av] Common [facility] - [facility] temperature 2022-01-04 14:00:00 97.5 [degF] Common S pirit [facility] bmi 2022-01-04 14:00:00 31.38 kg/m2 Common S [facility] oximetry 2022-01-04 14:00:00 97 % Common S pirit [facility] respiratory rate 2022-01-04 14:00:00 16 /min Comm on [facility] blood pressure 2022-01-04 14:00:00 142 mm[Hg] Common [facility] - systolic [facility] blood pressure 2022-01-04 14:00:00 75 mm[Hg] [facility] - diastolic [facility] height 2021-09-28 09:30:00 61 [in_i] Common [facility] weight 2021-09-28 09:30:00 162.3 [lb_av] Common [facility] temperature 2021-09-28 09:30:00 97.5 [degF] [facility] 2021-09-28 09:30:00 30.66 kg/m2 [facility] oximetry 2021-09-28 09:30:00 97 % Common S [facility] respiratory rate 2021-09-28 09:30:00 16 /min Comm on [facility] blood pressure 2021-09-28 09:30:00 152 mm[Hg] [facility] - systolic [facility] blood pressure 2021-09-28 09:30:00 72 mm[Hg] [facility] - diastolic [facility] height 2021-08-25 16:00:00 61 [in_i] Common [facility] weight 2021-08-25 16:00:00 167 [lb_av] Common S pirit [facility] temperature 2021-08-25 16:00:00 97.7 [degF] Common S pirit - [facility] bmi 2021-08-25 16:00:00 31.55 kg/m2 Common S pirit - [facility] oximetry 2021-08-25 16:00:00 96 % [facility] S [facility] blood pressure 2021-08-25 16:00:00 140 mm[Hg] Common [facility] - systolic [facility] blood pressure 2021-08-25 16:00:00 78 mm[Hg] Common [facility] - diastolic [facility] height 2021-07-26 09:40:00 61 [in_i] Common S [facility] weight 2021-07-26 09:40:00 164.4 [lb_av] [facility] temperature 2021-07-26 09:40:00 97.4 [degF] [facility] bmi 2021-07-26 09:40:00 31.06 kg/m2 [facility] S pirit [facility] oximetry 2021-07-26 09:40:00 97 % [facility] respiratory rate 2021-07-26 09:40:00 17 /min Comm on [facility] - [facility] blood pressure 2021-07-26 09:40:00 139 mm[Hg] Common [facility] - systolic [facility] blood pressure 2021-07-26 09:40:00 72 mm[Hg] Common [facility] - diastolic [facility] height 2021-06-28 08:50:00 61 [in_i] Common [facility] weight 2021-06-28 08:50:00 159.1 [lb_av] [facility] temperature 2021-06-28 08:50:00 97.2 [degF] Common S pirit [facility] bmi 2021-06-28 08:50:00 30.06 kg/m2 [facility] S [facility] oximetry 2021-06-28 08:50:00 98 % [facility] S [facility] respiratory rate 2021-06-28 08:50:00 18 /min Comm on [facility] - [facility] blood pressure 2021-06-28 08:50:00 158 mm[Hg] [facility] - systolic [facility] blood pressure 2021-06-28 08:50:00 75 mm[Hg] [facility] - diastolic [facility] Systolic blood 2021-06-20 20:23:00 148 mm[Hg] Univer sity of pressure [facility] Diastolic blood 2021-06-20 20:23:00 66 mm[Hg] Unive rsity of pressure [facility] Heart rate 2021-06-20 20:23:00 76 /min Universi ty of [facility] Body height 2021-06-20 20:23:00 154.9 cm Universi ty of [facility] Body weight 2021-06-20 20:23:00 74.844 kg [facility] of [facility] BMI 2021-06-20 20:23:00 31.18 kg/m2 [facility] of [facility] Systolic blood 2021-06-18 16:05:00 184 mm[Hg] Univer sity of pressure [facility] Diastolic blood 2021-06-18 16:05:00 60 mm[Hg] Unive rsity of [facility] Heart rate 2021-06-18 15:10:00 77 /min Universi ty of [facility] Body temperature 2021-06-18 15:10:00 37.44 [place] Univ ersity of [facility] Respiratory rate 2021-06-18 15:10:00 20 /min Univ ersity of [facility] Body height 2021-06-18 15:10:00 154.9 cm [facility] Body weight 2021-06-18 15:10:00 74.844 kg [facility] BMI 2021-06-18 15:10:00 31.18 kg/m2 [facility]i ty of [facility] Oxygen saturation in 2021-06-18 15:10:00 98 /min [facility] Arterial blood by [facility] Pulse oximetry Branch Systolic blood 2021-06-18 16:05:00 184 mm[Hg] Univer sity of pressure [facility] Diastolic blood 2021-06-18 16:05:00 60 mm[Hg] Unive rsity of [facility] Heart rate 2021-06-18 15:10:00 77 /min Universi ty [facility] Body temperature 2021-06-18 15:10:00 37.44 [place] [facility] Respiratory rate 2021-06-18 15:10:00 20 /min [facility] height 2021-06-18 15:10:00 154.9 cm Universi ty [facility] Body weight 2021-06-18 15:10:00 74.844 kg Universi ty [facility] BMI 2021-06-18 15:10:00 31.18 kg/m2 Universi ty [facility] Oxygen saturation in 2021-06-18 15:10:00 98 /min [facility] blood by [facility] Pulse oximetry Branch WEIGHT 2020-10-03 11:00:00 75.297 kg HEIGHT 2020-10-03 11:00:00 154.9 cm WEIGHT 2020-10-03 11:00:00 75.297 kg HEIGHT 2020-10-03 11:00:00 154.9 cm HEIGHT 2020-09-19 09:05:00 154.9 cm WEIGHT 2020-09-19 09:05:00 75.615 kg HEIGHT 2020-09-13 13:29:00 154.9 cm WEIGHT 2020-09-13 13:29:00 75.297 kg HEIGHT 2020-09-13 13:29:00 154.9 cm WEIGHT 2020-09-13 13:29:00 75.297 kg Systolic blood 2020-10-03 11:00:00 171 mm[Hg] [facility] Diastolic blood 2020-10-03 11:00:00 71 mm[Hg] [facility] S [facility] Heart rate 2020-10-03 11:00:00 78 /min [facility] Body temperature 2020-10-03 11:00:00 37 [place] [facility] Respiratory rate 2020-10-03 11:00:00 18 /min [facility] Body height 2020-10-03 11:00:00 154.9 cm [facility] Body weight 2020-10-03 11:00:00 75.297 kg [facility] BMI 2020-10-03 11:00:00 31.37 kg/m2 [facility] Oxygen saturation in 2020-10-03 11:00:00 98 /min room air [facility] Arterial blood by Medical Ce nter Pulse oximetry Procedures Procedure Date / Time Performing Clinician Source Performed EKG-12 LEAD 2023-02-20 01:48:08 Alden Isaacs [facility] URINALYSIS 2023-02-20 00:24:00 Alden Isaacs [facility] LIPASE 2023-02-19 22:43:00 Alden Isaacs [facility] TROPONIN I 2023-02-19 22:43:00 Alden Isaacs [facility] COMP. METABOLIC PANEL 2023-02-19 22:43:00 Alden Isaacs [facility] ([id number]) [facility] CBC WITH DIFF 2023-02-19 22:43:00 Alden Isaacs [facility] N-TERMINAL PRO-BNP 2023-02-19 22:43:00 Alden Isaacs [facility] NOTICE OF PRIVACY 2023-02-19 22:08:23 Doctor Unassigned, No [facility] PRACTICES Name [facility] ASSIGNMENT OF BENEFITS 2023-02-19 22:07:28 Doctor Unassigned, No [facility] CONSENT/REFUSAL FOR 2023-02-19 20:48:43 Doctor Unassigned, No [facility] DIAGNOSIS AND TREATMENT Name [facility] REFERRAL- 2021-04-06 05:01:00 Doctor Unassigned, No [facility] REQUEST/RESPONSE Name [facility] Branch POCT-GLUCOSE METER 2020-09-20 11:36:00 Juan Gallardo [facility] POCT-GLUCOSE METER 2020-09-20 07:33:00 Juan Gallardo [facility] CBC W/PLT COUNT & AUTO 2020-09-20 00:18:00 Vanessa Jasmine [facility] DIFFERENTIAL Center BASIC METABOLIC PANEL 2020-09-20 00:18:00 Vanessa Jasmine [facility] Medical (7) Center MAGNESIUM 2020-09-20 00:18:00 [place]OS[facility] 2020-09-20 00:18:00 [facility] CALCI[facility], IONIZED 2020-09-20 00:18:00 [facility] 2020-09-19 14:54:00 Monique [facility] POCT-ACT 2020-09-19 14:15:00 Monique [facility] POCT-ACT 2020-09-19 14:03:00 Monique [facility] ENDARTERECTOMY,CAROTID 2020-09-19 12:52:00 Monique [facility] PROTHROMBIN TIME/INR 2020-09-19 10:22:00 Aronadrián [facility] APTT 2020-09-19 10:22:00 [facility]SE METER 2020-09-19 09:06:00 Juan Gallardo [facility] CBC W/PLT COUNT & AUTO 2020-09-13 14:52:00 Monique [facility] DIFFERENTIAL [facility] BASIC METABOLIC PANEL 2020-09-13 14:52:00 Juan Gallardo [facility] (7) [facility] PROTHROMBIN TIME/INR 2020-09-13 14:52:00 Monique [facility] ABORH, MANUAL 2020-09-13 14:52:00 Juan Gallardo [facility] ECG 12-LEAD 2020-09-13 14:37:40 Unknown, Hl7 Doctor [facility] Plan of Care Planned Activity Planned Date Details Comments Source Future Scheduled 2023-06-[address] [facility] 00:00:00 (Season Ended) [code = Medic al Center INFLUENZA VACCINE (Season Ended)] Future Scheduled 2023-06-[address] [facility] 00:00:00 (Season Ended) [code = Medic al Center Influenza Vaccine (Season Ended)] Future Scheduled 2023-06-[address] [facility] Test 00:00:00 (Season Ended) [code = Medic al Center Influenza Vaccine (Season Ended)] Future Scheduled 2023-06-14 Influenza Vaccine (#1) [facility] 00:00[facility]00 [code = Influenza Medical Ce nter Vaccine (#1)] Future Scheduled 2022-10-[address] [...] breast Medical C enter (procedure) [code = 564023852] Future Scheduled 1951 Screening for malignant [facility] Test 00:00:00 neoplasm of colon Medical Ce nter (procedure) [code = 261241107] Future Scheduled 1951 Screening for malignant [facility] Test 00:00:00 neoplasm of breast Medical C enter (procedure) [code = 328221046] Future Scheduled 1951 CT Colonography (combo) [facility] Test 00:00:00 [code = CT Colonography [facility] (combo)] Future Scheduled 1951 Screening for malignant [facility] Test 00:00:00 neoplasm of colon Medical Ce nter (procedure) [code = 528202128] Future Scheduled 1951 Screening for malignant [facility] Test 00:00:00 neoplasm of colon Medical Ce nter (procedure) [code = 081939569] Future Scheduled 1951 DXA SCAN [code = DXA [facility] Test 00:00:00 SCAN] [facility] Future Scheduled 1951 Screening for malignant [facility] Test 00:00:00 neoplasm of colon Medical Ce nter (procedure) [code = 787854211] Future Scheduled 1951 Screening for malignant [facility] Test 00:00:00 neoplasm of colon Medical Ce nter (procedure) [code = 313580216] Future Scheduled 1951 Sigmoidoscopy [code = [facility] S[facility]oscopy] [facility] Cente r Future Scheduled 1951 Screening for malignant [facility] Test 00:00:00 neoplasm of breast Medical C enter (procedure) [code = 461578533] Future Scheduled 1951 CT Colonography (combo) [facility] Test 00:00:00 [code = CT Colonography [facility] (combo)] Future Scheduled 1951 Screening for malignant [facility] Test 00:00:00 neoplasm of colon Medical Ce nter (procedure) [code = 820888813] Future Scheduled 1951 Screening for malignant [facility] Test 00:00:00 neoplasm of colon Medical Ce nter (procedure) [code = 810576312] Future Scheduled 1951 DXA SCAN [code = DXA [facility] Test 00:00:00 SCAN] [facility] Future Scheduled 1951 Screening for malignant [facility] Test 00:00:00 neoplasm of colon Medical Ce nter (procedure) [code = 387470702] Future Scheduled 1951 Screening for malignant [facility] Test 00:00:00 neoplasm of colon Medical Ce nter (procedure) [code = 059660279] Future Scheduled 1951 Sigmoidoscopy [code = [facility] 00:[facility] S[facility]oidoscopy] [facility] Cente r Future Scheduled 1951 Screening for malignant [facility] Test 00:00:00 neoplasm of breast Medical C enter (procedure) [code = 161110576] Future Scheduled 1951 CT Colonography (combo) [facility] Test 00:00:00 [code = CT Colonography [facility] (combo)] Future Scheduled 1951 Screening for malignant [facility] Test 00:00:00 neoplasm of colon Medical Ce nter (procedure) [code = 960514086] Future Scheduled 1951 Screening for malignant [facility] Test 00:00:00 neoplasm of colon Medical Ce nter (procedure) [code = 112920705] Future Scheduled 1951 DXA SCAN [code = DXA [facility] Test 00:00:00 SCAN] [facility] Future Scheduled 1951 Screening for malignant [facility] Test 00:00:00 neoplasm of colon Medical Ce nter (procedure) [code = 799342957] Future Scheduled 1951 Screening for malignant [facility] Test 00:00:00 neoplasm of colon Medical Ce nter (procedure) [code = 052838214] Future Scheduled 1951 Sigmoidoscopy [code = [facility] 00:[facility] Sigmoidoscopy] [facility] Future Scheduled 1951 Screening for malignant [facility] Test 00:00:00 neoplasm of breast Medical C enter (procedure) [code = 548681038] Future Scheduled 1951 CT Colonography (combo) [facility] Test 00:00:00 [code = CT Colonography [facility] (combo)] Future Scheduled 1951 Screening for malignant [facility] Test 00:00:00 neoplasm of colon Medical Ce nter (procedure) [code = 091386473] Future Scheduled 1951 Screening for malignant [facility] Test 00:00:00 neoplasm of colon Medical Ce nter (procedure) [code = 704736338] Future Scheduled 1951 DXA SCAN [code = DXA [facility] Test 00:00:00 SCAN] [facility] Future Scheduled 1951 Screening for malignant [facility] Test 00:00:00 neoplasm of colon Medical Ce nter (procedure) [code = 742190085] Future Scheduled 1951 Screening for malignant [facility] Test 00:00:00 neoplasm of colon Medical Ce nter (procedure) [code = 874990148] Future Scheduled 1951 Sigmoidoscopy [facility] Scre[facility] for malignant [facility] Test 00:00:00 neoplasm of breast Medical C enter (procedure) [code = 180369425] Future Scheduled 1951 CT Colonography (combo) [facility] Test 00:00:00 [code = CT Colonography [facility] (combo)] Future Scheduled 1951 Screening for malignant [facility] Test 00:00:00 neoplasm of colon Medical Ce nter (procedure) [code = 520764205] Future Scheduled 1951 Screening for malignant [facility] Test 00:00:00 neoplasm of colon Medical Ce nter (procedure) [code = 293563420] Future Scheduled 1951 DXA SCAN [code = DXA [facility] Test 00:00:00 SCAN] [facility] Future Scheduled 1951 Screening for malignant [facility] Test 00:00:00 neoplasm of colon Medical Ce nter (procedure) [code = 131673916] Future Scheduled 1951 Screening for malignant [facility] Test 00:00:00 neoplasm of colon Medical Ce nter (procedure) [code = 145264787] Future Scheduled 1951 Sigmoidoscopy [code = [facility] Screening for malignant [facility] Test 00:00:00 neoplasm of breast Medical C enter (procedure) [code = 523391586] Future Scheduled 1951 Screening for malignant [facility] Test 00:00:00 neoplasm of colon Medical Ce nter (procedure) [code = 270162007] Future Scheduled 1951 Screening for malignant [facility] Test 00:00:00 neoplasm of breast Medical C enter (procedure) [code = 774076569] Future Scheduled 1951 CT Colonography (combo) [facility] Test 00:00:00 [code = CT Colonography [facility] (combo)] Future Scheduled 1951 Screening for malignant [facility] Test 00:00:00 neoplasm of colon Medical Ce nter (procedure) [code = 666743886] Future Scheduled 1951 Screening for malignant [facility] Test 00:00:00 neoplasm of colon Medical Ce nter (procedure) [code = 487925250] Future Scheduled 1951 DXA SCAN [code = DXA [facility] Test 00:00:00 SCAN] Medical Center Future Scheduled 1951 Screening for malignant [facility] Test 00:00:00 neoplasm of colon Medical Ce nter (procedure) [code = 493765499] Future Scheduled 1951 Screening for malignant [facility] Test 00:00:00 neoplasm of colon Medical Ce nter (procedure) [code = 115727948] Future Scheduled 1951 Sigmoidoscopy [code = [facility] 00:[facility] S[facility]oscopy] Medical Cente r Encounters Start End Encounter Admission Attending Care Care Encounter Source Date/Time Date/Time Type Type Clinicians Facility Department ID 2023-05-16 Outpatient Lao, STLMLC STLMLC [id number] Common 07:59:01 Carmine [id number] [facility] 2022-11-14 Outpatient Lao, STLMLC STLMLC [id number] Common 13:33:00 Carmine [id number] [facility] 2022-08-02 Outpatient Lao, STLMLC STLMLC [id number] Common 11:32:02 Carmine 11305 [facility] 2022-04-23 Outpatient Lao, STLMLC STLMLC [id number] Common 11:04:01 Carmine [facility] 2022-01-03 Outpatient Lao, STLMLC STLMLC [id number] Common 10:05:03 Carmine [facility] 2022-01-01 Outpatient Lao, STLMLC STLMLC [id number] Common 13:11:04 Carmine [facility] 2021-11-08 Outpatient Lao, STLMLC STLMLC [id number] Common 14:15:27 Carmine [id number] [facility] 2021-11-08 Outpatient Lao, STLMLC STLMLC [id number] Common 14:10:48 Carmine 15307 [facility] 2021-11-08 Outpatient Lao, STLMLC STLMLC [id number] Common 14:04:07 Carmine 88504 [facility] 2021-11-08 Outpatient STLMLC STLMLC [id number] Common 13:49:07 [id number] [facility] 2021-08-14 Emergency [facility] [id number] Univers 20:32:56 itwesley [facility] 2021 Inpatient MONIQUE, [facility] Surgery [id number] SLE 18:22:15 JUAN 2023-02-19 2023-02-19 [id number] Univers 15:55:00 21:46:00 ALDEN schulz [facility] 2023-02-19 2023-02-19 [facility] [id number] Univers 15:55:00 21:46:00 Alden BOWERS [id number] [place] [id number] [facility] [id number] [place] [id number] [facility] 2022-11-16 2022-11-16 (TEL) STLMLC STLMLC [id number] Co mmon 00:00:00 00:00:00 [facility] 2022-11-15 2022-11-15 OFFICE STLMLC STLMLC [id number] Co mmon 00:00:00 00:00:00 VISIT [facility] ESTAB PT - [facility] LEVEL 4 [facility] 2022-11-15 2022-11-15 (TEL) STLMLC STLMLC [id number] Co mmon 00:00:00 00:00:00 [facility] 2022-10-19 2022-10-19 OFFICE STLMLC STLMLC [id number] Co mmon 00:00:00 00:00:00 VISIT EST Spir it PT LEVEL 3 - [facility] 2022-10-17 2022-10-17 (TEL) STLMLC STLMLC [id number] Co mmon 00:00:00 00:00:00 [facility] 2022-09-04 2022-09-04 (TEL) STLMLC STLMLC [id number] Co mmon 00:00:00 00:00:00 [facility] 2022-09-04 2022-09-04 (TEL) STLMLC STLMLC [id number] Co mmon 00:00:00 00:00:00 [facility] 2022-08-20 2022-08-20 (TEL) STLMLC STLMLC [id number] Co mmon 00:00:00 00:00:00 [facility] 2022-08-15 2022-08-15 (TEL) STLMLC STLMLC [id number] Co mmon 00:00:00 00:00:00 [facility] 2022-08-06 2022-08-06 OFFICE STLMLC STLMLC [id number] Co mmon 00:00:00 00:00:00 VISIT [facility] 4 [facility] 2022-08-06 2022-08-06 (TEL) STLMLC STLMLC [id number] Co mmon 00:00:00 00:00:00 [facility] 2022-07-17 2022-07-17 (TEL) STLMLC STLMLC [id number] Co mmon 00:00:00 00:00:00 [facility] [facility]-10 2022-07-10 (TEL) STLMLC STLMLC [id number] Co mmon 00:00:00 00:00:00 [facility] 2022-07-05 2022-07-05 (TEL) STLMLC STLMLC [id number] Co mmon 00:00:00 00:00:00 [facility] 2022-07-05 2022-07-05 (HOSP F/U) STLMLC STLMLC [id number] Common 00:00:00 00:00:00 [facility] 2022-07-02 2022-07-02 (TEL) STLMLC STLMLC [id number] Co mmon 00:00:00 00:00:00 [facility] 2022-04-23 2022-04-23 OFFICE STLMLC STLMLC [id number] Co mmon 00:00:00 00:00:00 VISIT [facility] ESTAB PT - CHI LEVEL 4 [facility] 2022-04-20 2022-04-20 (TEL) STLMLC STLMLC [id number] Co mmon 00:00:00 00:00:00 [facility] 2022-01-04 2022-01-04 OFFICE STLMLC STLMLC [id number] Co mmon 00:00:00 00:00:00 VISIT [facility] ESTAB PT - CHI LEVEL 4 [facility] 2022-01-04 2022-01-04 SUB ANNUAL STLMLC STLMLC [id number] Common 00:00:00 00:00:00 MCR [facility] WELLNESS - CHI VISIT [facility] 2021-12-21 2021-12-21 (TEL) STLMLC STLMLC [id number] Co mmon 00:00:00 00:00:00 [facility] 2021-11-20 2021-11-20 (TEL) STLMLC STLMLC [id number] Co mmon 00:00:00 00:00:00 [facility] 2021-10-30 2021-10-30 (TEL) STLMLC STLMLC [id number] Co mmon 00:00:00 00:00:00 [facility] 2021-09-28 2021-09-28 OFFICE STLMLC STLMLC [id number] Co mmon 00:00:00 00:00:00 VISIT [facility] ESTAB PT - CHI LEVEL 4 [facility] 2021-08-31 2021-08-31 (TEL) STLMLC STLMLC [id number] Co mmon 00:00:00 00:00:00 [facility] 2021-08-25 2021-08-25 OFFICE STLMLC STLMLC [id number] Co mmon 00:00:00 00:00:00 VISIT EST Spir it PT LEVEL 3 - [facility] 2021-08-22 2021-08-22 (TEL) STLMLC STLMLC [id number] Co mmon 00:00:00 00:00:00 [facility] 2021-08-07 2021-08-07 (TEL) STLMLC STLMLC [id number] Co mmon 00:00:00 00:00:00 [facility] 2021-07-26 2021-07-26 OFFICE STLMLC STLMLC [id number] Co mmon 00:00:00 00:00:00 VISIT Spirit ESTAB PT - CHI LEVEL 4 [facility] 2021-07-23 2021-07-23 (TEL) STLMLC STLMLC [id number] Co mmon 00:00:00 00:00:00 [facility] 2021 2021 (TEL) STLMLC STLMLC [id number] Co mmon 00:00:00 00:00:00 [facility] 2021-06-28 2021-06-28 (TEL) STLMLC STLMLC [id number] Co mmon 00:00:00 00:00:00 [facility] 2021-06-28 2021-06-28 OFFICE STLMLC STLMLC [id number] Co mmon 00:00:00 00:00:00 VISIT NEW [facility] PT LEVEL 4 - [facility] 2021-06-26 2021-06-26 Outpatient Thomas YOST [facility] [id number] Univers 13:45:00 13:45:00 [facility] 2021-06-20 2021-06-20 [facility] [id number] Univers 15:14:01 15:29:01 Visit [facility] 350.1.13.10 it y of [place] 4.2.7.2.686 Lorenzo as Yuri?Blea [phone] Co stanislav[address] [facility] 2021-06-20 2021-06-20 Outpatient Thomas GARCIA [facility] [id number] Univers 15:00:00 15:00:00 [facility] 2021-06-20 2021-06-20 Telephone [facility] [id number] Univers 00:00:00 00:00:00 [facility] 350.1.13.10 it y of [place] 4.2.7.2.686 Lorenzo as Yuri?Blea [phone] Co jose felix [address] [facility] 2021-06-19 2021-06-19 Telephone [facility] 1.2.840.114 [id number] Univers 00:00:00 00:00:00 [facility] 350.1.13.10 it y of [place] 4.2.7.2.686 Lorenzo as Yuri?Blea [phone] Co jose [facility] 198 [facility] Office [facility] 2021-06-18 2021-06-18 Emergency [facility] [id number] Univers 10:12:00 11:17:00 Carol Ann Bowers 350.1.13.10 ity of [place] 4.2.7.2.686 [facility] [phone] [facility] [address] 2021-06-18 2021-06-18 Emergency [facility] [id number] Univers 10:12:00 11:17:00 Carol Ann Bowers 350.1.13.10 ity of [place] 4.2.7.2.686 [facility] [phone] [facility] [address] 2021-04-26 2021-04-26 Letter ONEAL Barber [id number] Univers 00:00:00 00:00:00 (Out) Charlette GABRIEL 350.1.13.10 i ty of HOSPITAL 4.2.7.2.686 Lorenzo as [phone] [facility] [address] 2021-04-06 2021-04-06 Orders Doctor NO 1.2.840.114 [id number] Univers 00:00:00 00:00:00 Only Unassigned, HARVEY 350.1.13.10 ity of [place] [facility] 4.2.7.2.686 Lorenzo as [phone] [facility] [address] 2020-10-03 2020-10-[address] MoniqueBatsheva [id number] [facility] 10:58:57 06:55:[address] [facility] 2020-10-03 2020-10-03 Outpatient HUSSEIN [facility] [id number] [facility] 00:00:00 00:00:00 JUAN 2020-09-19 2020-09-20 Hospital CHIRAG Gallardo [facility] [id number] 08:52:00 16:45:00 Encounter [facility] 2020-09-19 2020-09-19 Anesthesia Tim, [facility] [id number] 13:06:00 15:11:00 Event Maribell Yepez [facility] 2020-09-19 2020-09-19 [facility] [id number] 11:00:00 14:00:00 [facility] 2020-09-16 2020-09-16 [facility] [id number] 00:00[facility]00 00:00:00 [facility] 2020-09-13 2020-09-13 Office CHIRAG Gallardo [facility] [id number] 14:23:27 14:53:[address] [facility] 2020-09-13 2020-09-13 Outpatient HUSSEIN [facility] [id number] [facility] 14:23:27 14:23:27 JUAN 2020-09-13 2020-09-13 [facility] [id number] 00:00:00 00:00:00 [facility] 2019-12-02 2019-12-02 Outpatient Ige-Odunuga [facility] [id number] [facility] 07:29:00 07:29:00 _J_ 54788 [facility] e Results Test Description Test Time Test Comments Results Result Comments Source TROPONIN I 2023-02-19 23:50:59 Test Item Value Reference Range Interpretation Comme nts TROPONIN I (test code = 5673151068) 0.002 ng/mL <=0.034 GABRIELA (test code = [...] biotin. Lab Interpretation (test code = Normal 66402-6) [id number] 23:47:38 Test Item Value Reference Range Interpretation Comments NT-proBNP (test code = 81 pg/mL <=125 0849896682) GABRIELA (test code = GABRIELA) Biotin has been reported to cause a negative bias, interpret results relative to patient's use of biotin. Lab Interpretation (test Normal code = 93362-2) [facility]. METABOLIC PANEL (22669)2023-02-19 23:41:37 Test Item Value Reference Range Interpretation Comments NA (test code = 137 mmol/L 135-145 0475851705) K (test code = 4.3 mmol/L 3.5-5.0 2337189169) CL (test code = 100 mmol/L 98-108 0019972962) CO2 TOTAL (test code = 27 mmol/L 23-31 1220011522) AGAP (test code = 10 2-16 7531175774) BUN (test code = 14 mg/dL 7-23 0732239250) GLUCOSE (test code = 196 mg/dL 70-110 H 7018928190) CREATININE (test code = 0.65 mg/dL 0.50-1.04 1143891503) TOTAL BILI (test code = 1.0 mg/dL 0.1-1.4 2486681090) CALCIUM (test code = 8.9 mg/dL 8.6-10.6 2467047184) T PROTEIN (test code = 7.9 g/dL 6.3-8.2 8017476299) ALBUMIN (test code = 3.8 g/dL 3.5-5.0 4853398218) ALK PHOS (test code = 89 U/L 34-122 0384164871) ALTv (test code = 33 U/L 5-35 1742-6) AST(SGOT) (test code = 39 U/L 13-40 6270480752) eGFR (test code = 89.9 mL/min/1.73m2 4796121582) GABRIELA (test code = GABRIELA) Association of [...] tests). Lab Interpretation Abnormal (test code = 93747-5) [facility] 23:41:37 Test Item Value Reference Range Interpretation Comments LIPASE (test code = 1486787348) 111 U/L 0-220 Lab Interpretation (test code = Normal 86430-2) [facility] [id number] 23:32:16 Test Item Value Reference Range Interpretation Comments WBC (test code = 12.07 See_Comment H [Automated 6790-2) message] The sy stem which generated this [...] RDW-SD (test code = 48.6 fL 39.0-49.9 73153-2) RDW-CV (test code = 12.9 % 12.0-15.5 788-0) PLT (test code = 236 See_Comment [Automated 777-3) message] The sy stem which generated this result transmitted reference range : 166 - 358 10*3/ ?L. The reference r rita was not used to interpret this result as normal/abnormal . MPV (test code = 10.9 fL 9.5-12.9 85351-0) NRBC/100 WBC (test 0.0 See_Comment [Automat ed code = 4032174924) message] The system which generated this result transmitted reference range : 0.0 - 10.0 /100 WBCs. The refer ence range was not u sed to interpret th is result as normal/abnormal . NRBC x10^3 (test code See_Comment [Auto mated = 2255824894) message] The s ystem which generated this result transmitted reference range : 10*3/?L. The reference range was not used to interpret this result as normal/abnormal . GRAN MAT (NEUT) % 66.4 % (test code = 770-8) IMM GRAN % (test code 0.50 % = 4592053768) LYMPH % (test code = 22.9 % 736-9) MONO % (test code = 7.9 % 5905-5) EOS % (test code = 1.6 % 713-8) BASO % (test code = 0.7 % 706-2) GRAN MAT x10^3(ANC) 8.03 10*3/uL 1.88-7.09 H (test code = 8092174939) IMM GRAN x10^3 (test 0.06 10*3/uL 0.00-0.06 code = 9721574145) LYMPH x10^3 (test code 2.76 10*3/uL 1.32-3.29 = 731-0) MONO x10^3 (test code 0.95 10*3/uL 0.33-0.92 H = 742-7) EOS x10^3 (test code = 0.19 10*3/uL 0.03-0.39 711-2) BASO x10^3 (test code 0.08 10*3/uL 0.01-0.07 H = 704-7) Lab Interpretation Abnormal (test code = 89152-8) [facility], TIBC AND FERRITIN [id number] 00:00:00 Test Item Value Reference Range Interpretation Comments % SATURATION (test 5 % (calc) See_Comment L [Automat ed message] code = 2502-3) The system [facility] generated this result transmit zoë reference range : 16-45 % (calc). The reference range was not used to interpret this result as normal/abnormal . FERRITIN (test code 4 ng/mL See_Comment L [Automa zoë message] = 2276-4) The system [facility] generated this result transmit zoë reference [...] d message] code = 2498-4) The system [facility] generated this result transmit zoë reference range [...] this result transmit zoë reference range : 9430-3930 cells /uL. The reference r rita was not used to interpret this result as normal/abnormal . BASOPHILS (test code 0.9 % N = 706-2) EOSINOPHILS (test 6.0 % N code = 713-8) HEMATOCRIT (test 26.5 % See_Comment L [Automated message] code = 4544-3) The system [facility] generated this result transmit zoë reference range : 35.0-45.0 %. Th e reference range was not used to interpret this result as normal/abnormal . HEMOGLOBIN (test 7.6 g/dL See_Comment L [Automated message] code = 718-7) The system [facility] generated this result transmit zoë reference range : 11.7-15.5 g/dL. The reference range was not used to interpret this result as normal/abnormal . LYMPHOCYTES (test 25.4 % N code = 736-9) MCH (test code = 23.2 pg See_Comment L [Automated message] 785-6) The system [facility] generated this result transmit zoë reference range : 27.0-33.0 pg. T he reference range was not used to interpret this result as normal/abnormal . MCHC (test code = 28.7 g/dL See_Comment L [Automate d message] 786-4) The system [facility] generated this result transmit zoë reference range : 32.0-36.0 g/dL. The reference range was not used to interpret this result as normal/abnormal . MCV (test code = 81.0 fL See_Comment N [Automated message] 787-2) The system [facility] generated this result transmit zoë reference range : 80.0-100.0 fL. The reference range was not used to interpret this result as normal/abnormal . MONOCYTES (test code 8.6 % N = 5905-5) MPV (test code = 9.6 fL See_Comment N [Automated message] 776-5) The system [facility] generated this result transmit zoë reference range : 7.5-12.5 fL. Th e reference range was not used to interpret this result as normal/abnormal . NEUTROPHILS (test 59.1 % N code = 770-8) PLATELET COUNT (test 321 See_Comment N [Autom ated message] code = 777-3) Thousand/uL The system [facility] generated this result transmit zoë reference range : 140-400 Thousan d/uL. The reference r rita was not used to interpret this result as normal/abnormal . RDW (test code = 14.7 % See_Comment N [Automated message] 788-0) The system [facility] generated this result transmit zoë reference [...] code = Thousand/uL The syste m which 1890-2) generated this result transmit zoë reference range : 3.8-10.8 Thousand/uL. Th e reference range was not used to interpret this result as normal/abnormal . PATHOLOGY [id number] 00:00:00PATHOLOGISTCONSULT, SPECIMEN A 2021-07-22 00:00:00A COMMENTA DIAGNOSISA MICRO DESCRIPTIONA SOURCELipid Panel With LDL/HDL [id number] 00:00:00 Test Item Value Reference Range Interpretation Comments Cholesterol, Total 188 mg/dL See_Comment [Automat ed message] (test code = 2093-3) The [facility] tem which generated this result transmitted ref erence range: 100-199 mg/dL. The reference r rita was not used to interpret this result as normal/abnor mal. HDL Cholesterol (test 52 mg/dL See_Comment [Auto mated message] code = 2085-9) The system [employer] generated this result transmitted ref erence range: >39 mg/d L. The reference range was not used to int erpret this result as normal/abnormal . Triglycerides (test 85 mg/dL See_Comment [Automa zoë message] code = 2571-8) The system [employer] generated this result transmitted ref erence range: 0-149 mg /dL. The reference r rita was not used to interpret this result as normal/abnor mal. Microalbumin/Creat Ratio, Random [id number] 00:00:00 Test Item Value Reference Range Interpretation Comments Creatinine, Urine 103.2 mg/dL Not Estab. mg/dL (test code = 2161-8) Alb/Creat Ratio 28 mg/g creat See_Comment [Automated message] (test code = The system [facility] [place] [address]-6) generated this result transmitted ref erence range: 0-29 mg/ g creat. The refe rence range was not u sed to interpret this result as normal/abnor mal. Albumin, Urine 29.2 ug/mL Not Estab. ug/mL (test code = 00681-7) Hemoglobin [id number] 00:00:00 Test Item Value Reference Range Interpretation [...] L [Autom ated message] 1751-7) The system [employer] generated this result transmit zoë reference range : 3.8-4.8 g/dL. T he reference range was not used to interpret this result as normal/abnormal . Alkaline Phosphatase 106 IU/L See_Comment [Autom ated message] (test code = 6768-6) The [employer] tem which generated this result transmit zoë reference range : 44-121 IU/L. Th e reference range was not used to interpret this result as normal/abnormal . ALT (SGPT) (test 12 IU/L See_Comment [Automated message] code = 1742-6) The system [employer] generated this result transmit zoë reference range : 0-32 IU/L. The reference range was not used to interpret this result as normal/abnormal . AST (SGOT) (test 12 IU/L See_Comment [Automated message] code = 1920-8) The system [employer] generated this result transmit zoë reference range : 0-40 IU/L. The reference range was not used to interpret this result as normal/abnormal . Bilirubin, Total 0.3 mg/dL See_Comment [Automated message] (test code = 1975-2) The [employer] tem which generated this result transmit zoë reference range : 0.0-1.2 mg/dL. The reference range was not used to interpret this result as normal/abnormal . BUN (test code = 12 mg/dL See_Comment [Automated message] 3094-0) The system [employer] generated this result transmit zoë reference range : 8-27 mg/dL. The reference range was not used to interpret this result as normal/abnormal . BUN/Creatinine Ratio 03 10- (test code = 3097-3) Calcium (test code = 8.6 mg/dL See_Comment L [Autom ated message] 72340-4) The system [employer] generated this result transmit zoë reference range : 8.7-10.3 mg/dL. The reference range was not used to interpret this result as normal/abnormal . Carbon Dioxide, 26 mmol/L See_Comment [Automated message] Total (test code = The syste which 2028-06) generated this result transmit zoë reference range : 20-29 mmol/L. T he reference range was not used to interpret this result as normal/abnormal . Chloride (test code 105 mmol/L See_Comment [Automa zoë message] = 5-0) The system [employer] generated this result transmit zoë reference range : 96-106 mmol/L. The reference range was not used to interpret this result as normal/abnormal . Creatinine (test 0.57 mg/dL See_Comment [Automated message] code = 2160-0) The system [facility] generated this result transmit zoë reference range : 0.57-1.00 mg/dL . The reference range was not used to interpret this result as normal/abnormal . eGFR If Africn Am 109 See_Comment [Automate d message] (test code = mL/min/1.73 The system [employer] 03233-8) generated this result transmit zoë reference range : >59 mL/min/1.73. Th e reference range was not used to interpret this result as normal/abnormal . eGFR If NonAfricn Am 95 mL/min/1.73 See_Comment [Aut omated message] (test code = The system [employer] 07589-0) generated this result transmit zoë reference range : >59 mL/min/1.73. Th e reference range was not used to interpret this result as normal/abnormal . Globulin, Total 3.9 g/dL See_Comment [Automated message] (test code = The system [employer] 58109-2) generated this result transmit zoë reference range : 1.5-4.5 g/dL. T he reference range was not used to interpret this result as normal/abnormal . Glucose (test code = 162 mg/dL See_Comment H [Autom ated message] 2345-7) The system [employer] generated this result transmit zoë reference range : 65-99 mg/dL. Th e reference range was not used to interpret this result as normal/abnormal . Potassium (test code 4.2 mmol/L See_Comment [Autom ated message] = 2823-3) The system [employer] generated this result transmit zoë reference range : 3.5-5.2 mmol/L. The reference range was not used to interpret this result as normal/abnormal . Protein, Total (test 7.5 g/dL See_Comment [Autom ated message] code = 2885-2) The system ich generated this result transmit zoë reference range : 6.0-8.5 g/dL. T he reference range was not used to interpret this result as normal/abnormal . Sodium (test code = 140 mmol/L See_Comment [Automa zoë message] 2951-2) The system ic h generated this result transmit zoë reference range : 134-144 mmol/L. The reference range was not used to interpret this result as normal/abnormal . Uric Acid, [id number] 00:00:00 Test Item Value Reference Range Interpretation Comments Uric Acid (test 3.8 mg/dL See_Comment [Automated message] The code = 3084-1) system which generated this result tra nsmitted reference range : 3.0-7.2 mg/dL. The refe rence range was not u sed to interpret this result as normal/abnormal . CBC With Differential/[id number] 00:00:00 Test Item Value Reference Range Interpretation [...] normal/abnormal . Hematology Comments: (test code = 92131-3) Hemoglobin (test code 7.9 g/dL See_Comment L [Auto mated = 718-7) message] The sy stem which generated this result transmitted reference range : 11.1-15.9 g/dL. The reference range was not used to interpret this result as normal/abnormal . Immature Cells (test code = UNLOINC) Immature Grans (Abs) 0.0 x10E3/uL See_Comment [Autom ated (test code = 29186-7) messag e] The system which generated this result transmitted reference range : 0.0-0.1 x10E3/u L. The reference r rita was not used to interpret this result as normal/abnormal . Immature Granulocytes 0 % Not Estab. % (test code = 39285-6) Lymphs (test code = 27 % Not [...] as normal/abnormal . NRBC (test code = 81645-9) Platelets (test code 319 x10E3/uL See_Comment [Autom [...] result as normal/abnormal . TSH reflex to [id number] 00:00:00 Test Item Value Reference Range Interpretation Comments TSH (test code = 1.260 uIU/mL See_Comment [Automated message] The 16607-1) system which ge nerated this result tra nsmitted reference range : 0.450-4.500 uIU /mL. The reference range was not used to interpr et this result as normal/abnormal . Tissue [id number] 18:50:00 Test Item Value Reference Range Interpretation Comments Case Report (test code Surgical Pathology = 104) Report Case: [id number] Authorizing Provider: Juan Gallardo, Collected: 09/19/2020 02:54 PM Ordering Location: [facility] Received: 09/19/2020 03:32 PM PERIOPERATIVE SERVICES Pathologist: Jarad Menchaca MD Specimen: Plaque, LEFT CAROTID ARTERY PLAQUE DIAGNOSIS (test code = q8fjnNAjDOXdy4oaZORydWW 3220) uZzEwMzNcZnRuYmpcdWMxIH tccnRmMVxlcGljOTIwMFxhb cMsANLwkQRdL5EwhkirAHqk MA5lFS7bxVfekNOxxNFlWZK wTgOtr9vfy274oEFyz2vlTL MQhvlboLn9kGebL12dp0M3N yutD76xdVVvUSxdjUIfupjb czIwIEFSVEVSWSwgTEVGVCB DQVJPVElELCBFTkRBUlRFUk AMPL2VHRkrhAMeCJEIQAEYE doXYMBONPWEZ8DMQGDXR1MF GvSVUUGEQQWiNGYtpl07UHR 1AfEqq8N3CSB4XMKqCBIry2 lcZGVmbGFuZzEwMzNcZnRuY gvcvXVvPNGuRiDst6oix819 fELih1plDTTbVrD6hNDiVSF haGUcF555RNPcFIjny0bif4 TxXQZjbDEyf2R1CMUWudwdb Oo5yKzcN94pz7X4GnjlA4lf BZRiENMlP3YqLI3bNHAbDqi 4DII6DCH5YMJiQPKvH7SpWY 3dUYVqeCCpHGa6v5ynmNzuG JWzTUT0f7cuPOpjizOdAI6m wr9unBa5t1nzrwBwKXPaALM lcISBYGGgI3VvrEkmXu2gvM u6qMmrDqhjABF5Ciz5GJ7ej m39krp3pNbvFMWpqhskEuN3 WMgyJMAvbppkTVb8YVqpZXF yyIX1ROWmxCYmU7HxXIDxUH 6taik7IFT8JUqcWYPnIvK1G WIruHKiYOAxiUsiMJymx494 NCC0KaFrTD4rF4Mis3S8gD4 maXRcZGVmdGFiNzIwXGZvcm 5uoESpRUmqe4LwWMP7ooU2t IHbaXPyZGCmWtI3KWdoVO3j tn77NVSqTXQ3eb6cuDAjkVh ubdRsiXVjQGwdI6SoJTVpc7 79PZEnZ2OqADZqt0X9thDsV iObZTZtsQZ4xdI2MQCvNJ7d dlrzo8alJPggORgvTCJcjjM 0wpN6VBOhqMQmW1LoyX7kCN UzDX8zyunxo3ytZCV9EYutT BJwRGC4FaOiSKVte7Clpyp2 YqWpk0WfxGShWFjjX57sg75 5PKXqoiGnO5jqyVPdcraokO PxnelrOYjpkmO8QVByBNpdc orwXPFrHZpxH2vfOeEjSNUs wOxhIQjuy9RwSWQfGTYfBpX jzPNeHZDgSbs3FNGodLFaNX WcOeWgX2grlujcHsGQQOZop 7vlF6xoiQWMoASaH9AyUCkg wlMkDRzyKMbmRWJfVNS0CC0 2VfcxMEYfhb65 CPT Code(s) (test code o5jaiHBjZILorGH7CzFnGRN = 3357) rj9udr2CwcYThpZDaIRyevD BsntRxpy87dFF4zA61MY7dU QNkIkV6WCSjnhT4Feh4EVJn DSPhmDMmP866k8xkb7zmgxD xuAZ0wUayVDKyZILeRFaqMZ TuVcJqQQhvYNA1SZm1RsDxH HBhcn0= CLINICAL HISTORY (test j5vmzMVnUTCytGF3TmPcBZT code = 3356) me5kpu0BznXYkyRMzNDdkaK RljsNktt53uDP6tB21EL8lL DSnQzS4VMQacnW4Sov2FAGw EHOwmJOkY182k3ntl8kxdrX qdBN0lVdaEVEvEJSiLAceMT SjIwIaZRTmv3RrZUsbK26hr 2lzOiAgbGVmdCBjYXJvdGlk WQI9SG0ek8kuYCSfqk8= SPECIMEN SOURCE (test u4hthUZdDJRblPF5CaYuHHQ code = 3377) it8gxo1QamKFahEHxBRmxtY PdqzBvxh01hVT2cD68FV7eA KHcCaD1DIJolrL4Rio0CVHx PBUsdCChP780p9pez1sbvbB saLF4eSxcZHVgKDCzKBlwJO ZzMjAgUGxhcXVlIFxwYXJ9 GROSS DESCRIPTION s7snvQFxXGDllJC2DmWvFAD (test code = 3366) yf5gey8RfnMThrETmJVlbkS GarlHqmp31eUV6zI88AK6mL LQeFyF3XAOywjE0Wrr6DHBc CVFaiUSwB317j8hwi2gsxjX zwNW0kFgcWOEnZHHaIGnvXF ErFfAlKuRaNFz5YSKoNoEcg 1rbsODwTTbdLTY3bEJrZCHe RMMzHEZaPA32Q8KmkcHvUEk iMGSeECKuaE0pRI08gHBryw YpfePaHqXsTIL3HUjaiAOfp CBjYXJvdGlkIGFydGVyeSBw dFYjfHXwMHnnDQKhIb5aKWf hIp1gFMGpUJiskxAaeEyxlc IcbbDveEDadOQmNuW7RXsym 3cgcGxhcXVlIHRoYXQgZGlz yBiooZDkV2LrS8zdtMDwrKa rls4rMStoGIFiHYFarVOyRL wcLJKnbllwqSj2TONnZ7Igk 35lIRU0mdVrYRTvFNdkZPF9 PZvlt5epkJ1ow8wipiMtjPM rB7KxN6fwnQKyACGsuzNnga 4gVGhlIHNwZWNpbWVuIGlzI UK3Jp5gvVHuEMZwknJosKUn GJ62gCFgcBhtWb9qnD83gV7 pAXXbY4DjA1jzzJYuwYsjhw PkifANFX2sMWyZN3TmVSxeZ XJ9 MICROSCOPIC c8ehaKMtFZXmxMW0PeXrHXS DESCRIPTION (test code ta7guj2YfpJOjqDVfLVrddD = 3371) BejyRoad08bVT2iH89MQ5hC MGrReO9IUPgykU3Frr8UGDg LSZsrBJuQ275a2laf8kolvJ bqCX9jOgxBPXeQKKqECtjDE ZlVfDyYOQxNz0znKQkZYPwl n0= [facility] [id number] 18:50:00 Test Item Value Reference Range Interpretation Comments Case Report (test code Surgical Pathology = 104) Report Case: [id number] Authorizing Provider: Juan Gallardo, Collected: 09/19/2020 02:54 PM Ordering Location: [facility] Received: 09/19/2020 03:32 PM PERIOPERATIVE SERVICES Pathologist: Jarad Menchaca MD Specimen: Plaque, LEFT CAROTID ARTERY PLAQUE DIAGNOSIS (test code = q9evxUGnVUYrk1pzAAJsoYP 3220) uZzEwMzNcZnRuYmpcdWMxIH tccnRmMVxlcGljOTIwMFxhb rXyQWIxjCKqZ1EmcglwNEmu LX2eUS9usIpjgDWmuSJtEFB nFgXun3tqh561pFIwj6spSL SQjrortGj6bLglV41td6V4B zgpZ94uhCPcVHkzkWZlzbev czIwIEFSVEVSWSwgTEVGVCB DQVJPVElELCBFTkRBUlRFUk TMSY0XUQmyrCOmRKBRVRCAB ljPODNONIMHH8RGTSYMD2DU QgBVVCKWDUHsILCqoo66RZC 5PzBps7E3PGC3JSBiVCPmg8 lcZGVmbGFuZzEwMzNcZnRuY xtotCNuGDQhGoVsm2wmh293 mHFab9qiNVEhAxC3rGVtEBN lrJCvI939KIMtJYsck2fft4 UzYOLqaEDqw5L8RPJBgkfrz Mq1nItcU15ey0U1XhhoF1da VAZdGHYdC8RpAA9aTZTmPqp 9UPS0HUM4YQCtUHIuN3FbDR 6iTJDgcMTrZSt1k0bcgLyaG SGbHRO2z1deZPyjwhKtLM0v lv6zjMf5j6tyhpVsJGVaLLT kcITUQGItU5CtkRyhGh8zqA t6oZspXpckGFU0Vmg2FO3mf l45kze8sEepCXAljitsZsM1 RYrxYWVekosmCEf1KVdxITN wcPC7HERguYPxH4CcIVSkBK 0zuaj0YTS7EAdeBOCgKtW5O ZVekZIvDUHmbSteUFyyh904 JFG8WkNuZD1vM2Bcu0H0pQ7 maXRcZGVmdGFiNzIwXGZvcm 9upKVeCDjsb0OnIXZ7ypE5l DLeqVMrKATmHhD1RHrgPX0z bu17PPSwUGM1fs7ygIUetZk ieqNxiDAsMRnbH4YbGJDvi8 65VPIxG6SmBTZcj0W9fiGgH xJeDKQpbXO5igT7DTWgZV0r vgawd5lvXUwqSShtZHEuepU 8sdD0JJIfrZXyY7YuzO3aRR XiZE5gjtkpm3ezUZN1MXkkY JPsTAR5EnGnYCJau4Toxzh8 MyNas1YggLDlNTioM71ib67 0ROSkqbKpY7nenVMfguqhnS UrvinmGEubbsW1KAPxSZjhe dzoYWVcKPibL4kkLsYpQPWd dShqTOwag1FhKOKaNCSoKnU mjPFbMEFfCbx2QEBzgVTvRX AdZlXwR6dofhhbCjRAIENyz 6wfX9heoKOGoUBhT6RkUGto awZuJQffUNnyLOEoLKT2VR5 7ZhlwKTAxfr49 CPT Code(s) (test code q4hkdGOlDVMhpUZ9YsIvPZE = 3357) qb7oex5TxpRAwxKJbRWvmqZ OjpnLhpc05kBO9vZ41WX9bQ JCvUfR6HCTiweT1Dts4CGJq KLBzzGByH199g3cgb8pqdmS zcHE5bUoqEWBmMGPhQHohFC UbSdTnVCnhDJR8NJv9LrWuG HBhcn0= CLINICAL HISTORY (test l1hzaLUqAQMroQO0UuLeWGE code = 3356) xe0eqh0DrhUHgtPRyZHzqsQ KoczEoxb24qEZ4rZ71WT8kV NCzCqO0PWFlaeL4Nzb1NALd TUOxbPZsI726u5mwk0bqdfG ufMB6pSqwLFXrQVFuQTdjWE DkFvAkVYStj5FyZSonB89zc 2lzOiAgbGVmdCBjYXJvdGlk NDN1PJ6vu4eqCDUvvm7= SPECIMEN SOURCE (test u1rxsNHcEAXfzPL7BoBrWED code = 3377) pf4lqd3SnmQXarJVlVOujhQ ZaqnIqcj72zQP9vM03MT9cE XVwWkA8PREswcX7Dhs2NHKf EMVqcITyE591f2mqg3nvwxW gxRF9kEjuMABzVONhOXbaRD ZzMjAgUGxhcXVlIFxwYXJ9 GROSS DESCRIPTION r9zayFPhNBZzkBU8XqUxHKC (test code = 3366) gw8nyr9HsnABkuLCpIQemjN PpvxZkcx38bNT6oS01XP7jC VJkLyS6VAFeabE8Zly1RBLy ZCCyiLVyF553i9ecd3kaquH yoVB3oSmcYUBoOIWdYIceTH VmXdImNmClTEp0NXTaNtPix 1askEFbZLbiJOT9bBKoDGXq GCSuOPFyFY42G4JixcVsKVp zYDUyYZKvcF7pIP45cTRsbv KfevFxFuJfBHT4PIubrOKdg CBjYXJvdGlkIGFydGVyeSBw eXSyrPVbIKurOVBrRh8wVTa yUj3kPAYwSHlrteTnyWzjjs FwcoCeuCTsiEEzMqU6QWnuf 3cgcGxhcXVlIHRoYXQgZGlz gVtwmWLsX8EzL5xqkECfeKz xyn3gRImiRFXrNSPjhOLbMI jvECSsnqhtdLr5WKIvA8Mlv 69pHBI9ukCpNJRyPMurOYV3 KLoea9ugzB7cy1xgahXagML dD7KrS0pawUOuHGLlaiHxrz 4gVGhlIHNwZWNpbWVuIGlzI GN9Bf9smFAqCNCcrzNsmEZl UI50kHFxrUlaUp4jwT78eU5 sPQWaW1HsX4bnxJShbKykfx FkpsNUPQ7qCEgDG6BzWOuyR XJ9 MICROSCOPIC w2noeEVdAQLypDU6EyMrUIE DESCRIPTION (test code sd5sks1OesHLeeELnTDymzT = 3371) GycoYhno68jIE9lE52DL9aE JYuSfF2OTCcmsV4Zjs5EGHk MNEmiCEeW299j2wkn4foojD tzEF3lOydRNWlNZGjUMulGW LbSrVmAEOiSu8iqPVrYDPrw n0= [facility] CenterT[facility] [id number] 18:50:00Surgical Pathology Report Case: [id number] Authorizing Provider: Juan Gallardo, Collected: 09/19/2020 02:54 PM Ordering Location: [facility] Received: 09/19/2020 03:32 PM PERIOPERATIVE SERVICES Pathologist: Jarad Menchaca MD Specimen: Plaque, LEFT CAROTID ARTERY PLAQUE ARTERY, LEFT CAROTID, ENDARTERECTOMY:CALCIFIC ATHEROSCLEROTIC PLAQUE Signing Pathologist Direct Phone Line: [phone]; [phone] diagnosis: left carotid stenosisPlaque Received fresh labeled with the patient's name, accession number and "plaque, left carotid artery plaque" is a 2.0 x 2.0 cm irregular fragment of yellow plaque that displays calcification. The specimen is serially sectioned to reveal a yellow homogeneous calcified center. The specimen is submitted in its entirety following decalcification in A1. JG/pl PerformedPOC-Glucose [id number] 11:48:00 Test Item Value Reference Range Interpretation Comments POC-Glucose Meter (test 208 mg/dL 70-110 H : TE STED AT [facility] code = 1538) [address] [place] [address], [facility] 30: Processing [employer] Supervisor/Techni ciara ID = [id number] for BERT CORONADO Lab Interpretation (test Abnormal code = 75060-8) [facility] Center[facility]ucose [id number] 11:48:00 Test Item Value Reference Range Interpretation Comments POC-Glucose Meter (test 208 mg/dL 70-110 H : TE STED AT [facility] code = 1538) [address] [facility], [address] 30: [employer] Supervisor/Techni ciara ID = [id number] for IVONNE, BERT Lab Interpretation (test Abnormal code = 83925-0) [facility] CenterPOCT-GLUCOSE [id number] 11:48:00 Test Item Value Reference Range Interpretation Comments POC-GLUCOSE METER 208 mg/dL 70-110 H : TESTED A T [facility] 6720 (BEAKER) (test code = [facility], 1538) [address]: Processing [employer] Supervisor/Techni ciara ID = [id number] for BERT ROUSSEAU POCT-GLUCOSE [id number] 08:17:00 Test Item Value Reference Range Interpretation Comments POC-GLUCOSE METER 183 mg/dL 70-110 H : TESTED A T [facility] 6720 (BEAKER) (test code = [facility], 1538) [address]: [employer] Supervisor/Techni ciara ID = [id number] for BERT ROUSSEAU POC ACTIVATED CLOTTING [id number] 06:23:00 Test Item Value Reference Range Interpretation Comments Activated Clotting Time 241 sec : 74 -137 seconds, (test code = 441) Baseline: TESTED AT [address], [facility] 30: Processing [employer] Supervisor/Techni ciara ID = [id number] for CAST RO, NAT [facility] ACTIVATED CLOTTING [id number] 06:23:00 Test Item Value Reference Range Interpretation Comments Activated Clotting Time 241 sec : 74 -137 seconds, (test code = 441) Baseline: TESTED AT [address], [facility] 30: Processing [employer] Supervisor/Techni ciara ID = [id number] for CAST RO, NAT [facility] CenterPOCT-[id number] 06:23:00 Test Item Value Reference Range Interpretation Comments ACTIVATED CLOTTING TIME 241 sec : 74 -137 seconds, (BEAKER) (test code = Baseli ne: TESTED AT 441) [address], 770 30: [employer] Supervisor/Techni ciara ID = [id number] for CA STRO, NAT [id number]-[id number] 06:23:00 Test Item Value Reference Range Interpretation Comments ACTIVATED CLOTTING TIME 224 sec : 74 -137 seconds, (BEAKER) (test code = Baseli ne: TESTED AT 441) [address], [facility] 30: Processing [employer] Supervisor/Techni ciara ID = [id number] for CA STRO, NAT CBC with platelet count + automated [id number] 01:08:00 Test Item Value Reference Range Interpretation Comments WBC (test code = 6690-2) 12.8 See_Comment H [A utomated message] The system [employer] generated this result transmitted ref erence range: 3.5 - 10 .5 K/L. The refe rence range was not u sed to interpret this result as normal/abnor mal. RBC (test code = 789-8) 3.64 See_Comment L [Au tomated message] The system [employer] generated this result transmitted ref erence range: 3.93 - 5 .22 M/L. The refe rence range was not u sed to interpret this result as normal/abnor mal. MCHC (test code = 786-4) 30.3 See_Comment L [A utomated message] The system [employer] generated this result transmitted ref erence range: [...] See_Comment [Aut omated message] 777-3) The system [employer] generated this result transmitted ref erence range: 150 - 45 0 K/CU MM. The referen ce range was not u sed to interpret this result as normal/abnor mal. MPV (test code = 10.5 fL 9.4-12.3 19546-0) nRBC (test code = 413) 0 See_Comment [Aut omated message] The system [employer] generated this result transmitted ref erence range: [...] H [Aut omated message] 670) The system [employer] generated this result transmitted ref erence range: 1.56 - 6 .13 K/L. The refe rence range was not u sed to interpret this result as normal/abnor mal. # Lymphs (test code = 1.06 See_Comment L [Auto mated message] 414) The system [employer] generated this result transmitted ref erence range: 1.18 - 3 .74 K/L. The refe rence range was not u sed to interpret this result as normal/abnor mal. # Monos (test code = 0.20 See_Comment L [Autom ated message] 415) The system [employer] generated this result transmitted ref erence range: 0.24 - 0 .36 K/L. The refe rence range was not u sed to interpret this result as normal/abnor mal. # Eos (test code = 416) 0.00 See_Comment L [Au tomated message] The system [employer] generated this result transmitted ref erence range: 0.04 - 0 .36 K/L. The refe rence range was not u sed to interpret this result as normal/abnor mal. # Baso (test code = 417) 0.03 See_Comment [A utomated message] The system [employer] generated this result transmitted ref erence range: 0.01 - 0 .08 K/L. The refe rence range was not u sed to interpret this result as normal/abnor mal. Immature 1 % 0-1 Granulocytes-Relative (test code = 2801) Lab Interpretation (test Abnormal code = 12170-3) [facility] with platelet count + automated [id number] 01:08:00 Test Item Value Reference Range Interpretation Comments WBC (test code = 6690-2) 12.8 See_Comment H [A utomated message] The system [employer] generated this result transmitted ref erence range: 3.5 - 10 .5 K/L. The refe rence range was not u sed to interpret this result as normal/abnor mal. RBC (test code = 789-8) 3.64 See_Comment L [Au tomated message] The system [employer] generated this result transmitted ref erence range: 3.93 - 5 .22 M/L. The refe rence range was not u sed to interpret this result as normal/abnor mal. MCHC (test code = 786-4) 30.3 See_Comment L [A utomated message] The system [employer] generated this result transmitted ref erence range: [...] See_Comment [Aut omated message] 777-3) The system [employer] generated this result transmitted ref erence range: 150 - 45 0 K/CU MM. The referen ce range was not u sed to interpret this result as normal/abnor mal. MPV (test code = 10.5 fL 9.4-12.3 60778-5) nRBC (test code = 413) 0 See_Comment [Aut omated message] The system [employer] generated this result transmitted ref erence range: [...] H [Aut omated message] 670) The system [employer] generated this result transmitted ref erence range: 1.56 - 6 .13 K/L. The refe rence range was not u sed to interpret this result as normal/abnor mal. # Lymphs (test code = 1.06 See_Comment L [Auto mated message] 414) The system [employer] generated this result transmitted ref erence range: 1.18 - 3 .74 K/L. The refe rence range was not u sed to interpret this result as normal/abnor mal. # Monos (test code = 0.20 See_Comment L [Autom ated message] 415) The system [employer] generated this result transmitted ref erence range: 0.24 - 0 .36 K/L. The refe rence range was not u sed to interpret this result as normal/abnor mal. # Eos (test code = 416) 0.00 See_Comment L [Au tomated message] The system [employer] generated this result transmitted ref erence range: 0.04 - 0 .36 K/L. The refe rence range was not u sed to interpret this result as normal/abnor mal. # Baso (test code = 417) 0.03 See_Comment [A utomated message] The system [employer] generated this result transmitted ref erence range: 0.01 - 0 .08 K/L. The refe rence range was not u sed to interpret this result as normal/abnor mal. Immature 1 % 0-1 Granulocytes-Relative (test code = 2801) Lab Interpretation (test Abnormal code = 22993-7) [facility] W/PLT COUNT & AUTO [id number] 01:08:00 Test Item Value Reference Range Interpretation [...] (BEAKER) (test code = 2801) Basic Metabolic [id number] 00:56:00 Test Item Value Reference Range Interpretation [...] (test code = 8.2 mg/dL 8.4-10.2 L 41874-4) EGFR (test code = 75 mL/min/1.73 [place] [address]-5) NOT ACCURATE CREATININE CLEARANCE IN PREDICTING GLOMERULAR FILTRATION RATE . ESTIMATED GFR I S NOT APPLICABLE FOR DIALYSIS PATIENTS. GABRIELA (test code = GABRIELA) [employer] Supervisor ID - PIAYA L Lab Interpretation Abnormal (test code = 65240-4) [facility] CenterMagnesium2020-12-08 00:56:00 Test Item Value Reference Range Interpretation Comments Magnesium (test code = 1.7 mg/dL 1.6-2.6 79161-3) GABRIELA (test code = GABRIELA) [employer] Supervisor ID - PIAYA L Lab Interpretation (test Normal code = 45991-5) [facility] CenterPhosphorus2020-12-08 00:56:00 Test Item Value Reference Range Interpretation Comments Phosphorus (test code = 3.7 mg/dL 2.3-4.7 2777-1) GABRIELA (test code = GABRIELA) [employer] Supervisor ID - PIAYA L Lab Interpretation (test Normal code = 45597-2) [facility] CenterBasic Metabolic [id number] 00:56:00 Test Item Value Reference Range Interpretation [...] (test code = 8.2 mg/dL 8.4-10.2 L 50923-7) EGFR (test code = 75 mL/min/1.73 [place] [address]-3) NOT ACCURATE CREATININE CLEARANCE IN PREDICTING GLOMERULAR FILTRATION RATE . ESTIMATED GFR I S NOT APPLICABLE FOR DIALYSIS PATIENTS. GABRIELA (test code = GABRIELA) [employer] Supervisor ID - PIAYA L Lab Interpretation Abnormal (test code = 37538-1) [facility] CenterMagnesium2020-12-08 00:56:00 Test Item Value Reference Range Interpretation Comments Magnesium (test code = 1.7 mg/dL 1.6-2.6 19098-4) GABRIELA (test code = GABRIELA) [employer] Supervisor ID - FARHAD L Lab Interpretation (test Normal code = 23726-6) [facility] CenterPhosphorus2020-12-08 00:56:00 Test Item Value Reference Range Interpretation Comments Phosphorus (test code = 3.7 mg/dL 2.3-4.7 2777-1) GABRIELA (test code = GABRIELA) [employer] Supervisor ID - FARHAD L Lab Interpretation (test Normal code = 99286-1) [facility] CenterBASIC METABOLIC [id number] 00:56:00 Test Item Value Reference Range Interpretation [...] S NOT APPLICABLE FOR DIALYSIS PATIEN TS. [employer] Supervisor ID - PIAYA [id number] 00:56:00 Test Item Value Reference Range Interpretation Comments MAGNESIUM (BEAKER) (test code = 1.7 mg/dL 1.6-2.6 627) [employer] Supervisor ID - PIAYA [id number] 00:56:00 Test Item Value Reference Range Interpretation Comments PHOSPHORUS (BEAKER) (test code = 3.7 mg/dL 2.3-4.7 604) [employer] Supervisor ID - PIAYA LCalcium, [id number] 00:31:00 Test Item Value Reference Range Interpretation Comments Calcium, Ion (test code = 1993-) 1.18 mmol/L 1.12-1.27 pH, Blood (test code = 58433-8) 7.39 [facility] CenterCalcium, [id number] 00:31:00 Test Item Value Reference Range Interpretation Comments Calcium, Ion (test code = 1993-) 1.18 mmol/L 1.12-1.27 pH, Blood (test code = 36153-2) 7.39 [facility] CenterCALCIUM, [id number] 00:31:00 Test Item Value Reference Range Interpretation Comments CALCIUM IONIZED (BEAKER) (test 1.18 mmol/L 1.12-1.27 code = 698) PH, BLOOD (BEAKER) (test code = 7.39 1810) [id number] 10:46:00 Test Item Value Reference Range Interpretation Comments PTT (test code = 31154-3) 27.9 See_Comment [ Automated message] The system [employer] generated this result transmitted ref erence range: 22.5 - 3 6.0 seconds. The re ference range was not u sed to interpret this result as normal/abnor mal. Lab Interpretation (test Normal code = 09384-2) [facility] CenteraPTT2020-12-07 10:46:00 Test Item Value Reference Range Interpretation Comments PTT (test code = 13468-3) 27.9 See_Comment [ Automated message] The system [employer] generated this result transmitted ref erence range: 22.5 - 3 6.0 seconds. The re ference range was not u sed to interpret this result as normal/abnor mal. Lab Interpretation (test Normal code = 88635-0) [facility] CenterAPTT2020-12-07 10:46:00 Test Item Value Reference Range Interpretation Comments PARTIAL THROMBOPLASTIN TIME 27.9 seconds 22.5-36.0 (BEAKER) (test code = 760) Prothrombin time/[id number] 10:45:00 Test Item Value Reference Interpretation Comments [...] valves. Lab Interpretation Normal (test code = 51255-7) [facility] CenterProthrombin time/[id number] 10:45:00 Test Item Value Reference Interpretation Comments [...] to interpret this result as normal/abnormal . AGBRIELA (test code = Effective 03/11/2019: GABRIELA) PT Reference Range ChangeNew: 11.9-14.2 Previous: 11.7-14.7 RECOMMENDED COUMADIN/WARFARIN INR THERAPY RANGESSTANDARD DOSE: 2.0-3.0 Includes: PROPHYLAXIS for venous thrombosis, systemic embolization; TREATMENT for venous thrombosis and/or pulmonary embolus.HIGH RISK: Target INR is 2.5-3.5 for patients wiht mechanical heart valves. Lab Interpretation Normal (test code = 74574-1) [facility] CenterPROTHROMBIN TIME/[id number] 10:45:00 Test Item Value Reference Range Interpretation [...] 2.5-3.5 for patients wiht mechanical heart valves.POCT-GLUCOSE [id number] 09:19:00 Test Item Value Reference Range Interpretation Comments POC-GLUCOSE METER 187 mg/dL 70-110 H : TESTED A T [facility] 6720 (YECENIA) (test code = ERENDIRA BRAGA, 1538) [address]: Processing [employer] Supervisor/Techni ciara ID = [id number] for Jojo Rivers ECG 12 [id number] 12:51:19Interface, External Ris In - 09/14/2020 12:51 PM CSTVentricular Rate 65 BPMAtrial Rate 65 BPMP-R Interval 154 msQRS Duration 78 msQ-T Interval 442 msQTC Calculation(Bazett) 459 msP [place] 5 degreesR Axis77 degreesT [place] 66 degreesNormal sinus rhythmNonspecific T wave abnormalityProlonged QTWhen compared with ECG of 02-AUG-2019 06:01,Premature ventricular complexes are no longer PresentConfirmed by Daksha NICHOLE, MOLLY ([id number]) on 09/14/2020 12:51:17 [facility] [id number] 12:51:19Interface, External Ris In - 09/14/2020 12:51 PM CSTVentricular Rate 65 BPMAtrial Rate 65 BPMP-R Interval 154 msQRS Duration 78 msQ-T Interval 442 msQTC Calculation(Bazett) 459 msP [place] 5 degreesR Axis77 degreesT [place] 66 degreesNormal sinus rhythmNonspecific T wave abnormalityProlonged QTWhen compared with ECG of 02-AUG-2019 06:01,Premature ventricular complexes are no longer PresentConfirmed by Daksha NICHOLE BASANT ([id number]) on 09/14/2020 12:51:17 PMCH[facility] CenterABORH, [id number] 16:42:00 Test Item Value Reference Range Interpretation Comments ABO Grouping (test code = 2588) A Rh Factor (test code = 2589) POS [facility] CenterABORH, [id number] 16:42:00 Test Item Value Reference Range Interpretation Comments ABO Grouping (test code = 2588) A Rh Factor (test code = 2589) POS [facility] CenterType and screen, [id number] 16:36:00 Test Item Value Reference Range Interpretation Comments Ab Scrn (test code = 890-4) NEGATIVE echo2 [facility] CenterType and screen, [id number] 16:36:00 Test Item Value Reference Range Interpretation Comments Ab Scrn (test code = 890-4) NEGATIVE echo2 [facility] CenterBASIC METABOLIC [id number] 15:32:00 Test Item Value Reference Range Interpretation [...] S NOT APPLICABLE FOR DIALYSIS PATIEN TS. [employer] Supervisor ID - ADMINPROTHROMBIN TIME/[id number] 15:29:00 Test Item Value Reference Range Interpretation [...] mechanical heart valves.CBC W/PLT COUNT & AUTO [id number] 15:17:00 Test Item Value Reference Range Interpretation [...] (BEAKER) (test code = 2801) BASIC METABOLIC [id number] 06:24:00 Test Item Value Reference Range Interpretation [...] 0-0 (AKER) (test code = 413) POCT-GLUCOSE [id number] 21:22:00 Test Item Value Reference Range Interpretation Comments POC-GLUCOSE METER 138 mg/dL 70-110 H TESTED AT [place] [address] ([facility]) (test code = ERENDIRA [place] 1538) [address] POCT-GLUCOSE [id number] 17:38:00 Test Item Value Reference Range Interpretation Comments POC-GLUCOSE METER 131 mg/dL 70-110 H TESTED AT [place] [address] ([facility]) (test code = [facility] 1538) [address] BASIC METABOLIC [id number] 06:07:00 Test Item Value Reference Range Interpretation [...] 1092) DATA TO CALCULA TE ESTIMATED GFR. [id number] 06:04:00 Test Item Value Reference Range Interpretation [...] H (BEAKER) (test code = 413) POCT-GLUCOSE [id number] 23:10:00 Test Item Value Reference Range Interpretation Comments POC-GLUCOSE METER 127 mg/dL 70-110 H TESTED AT [facility] 6720 (BEAKER) (test code = ERENDIRA [place] 1538) [address] POCT-GLUCOSE [id number] 12:36:00 Test Item Value Reference Range Interpretation Comments POC-GLUCOSE METER 157 mg/dL 70-110 H TESTED AT [facility] 6720 (BEAKER) (test code = ERENDIRA [place] 1538) [address] CBC (HEMOGRAM ONLY)2019-08-02 06:03:00 Test Item Value [...] (BEAKER) (test code = 413) BASIC METABOLIC [id number] 05:47:00 Test Item Value Reference Range Interpretation [...] 1092) DATA TO CALCULA TE ESTIMATED GFR. [id number] 05:46:00 Test Item Value Reference Range Interpretation Comments PHOSPHORUS (BEAKER) (test code = 2.5 mg/dL 2.3-4.7 604) [id number] 05:46:00 Test Item Value Reference Range Interpretation Comments MAGNESIUM (BEAKER) (test code = 2.1 mg/dL 1.6-2.6 627) POCT-GLUCOSE [id number] 20:47:00 Test Item Value Reference Range Interpretation Comments POC-GLUCOSE METER 164 mg/dL 70-110 H TESTED AT [facility] 6720 (BEAKER) (test code = [facility] 1538) [address] POCT-GLUCOSE [id number] 17:38:00 Test Item Value Reference Range Interpretation Comments POC-GLUCOSE METER 194 mg/dL 70-110 H TESTED AT [facility] 6720 (BEAKER) (test code = [facility] 1538) [address] POCT-GLUCOSE [id number] 07:51:00 Test Item Value Reference Range Interpretation Comments POC-GLUCOSE METER 157 mg/dL 70-110 H TESTED AT [facility] 6720 (BEAKER) (test code = [facility] 1538) [address] HEMOGLOBIN [id number] 07:51:00 Test Item Value Reference Range Interpretation Comments HEMOGLOBIN A1C (BEAKER) (test code = 8.6 % 4.3-6.1 H 368) BASIC METABOLIC [id number] 06:11:00 Test Item Value Reference Range Interpretation [...] 1092) DATA TO CALCULA TE ESTIMATED GFR. [id number] 06:10:00 Test Item Value Reference Range Interpretation Comments PHOSPHORUS (BEAKER) (test code = 1.9 mg/dL 2.3-4.7 L 604) [id number] 06:10:00 Test Item Value Reference Range Interpretation [...] 0-0 (BEAKER) (test code = 413) POCT-GLUCOSE [id number] 22:07:00 Test Item Value Reference Range Interpretation Comments POC-GLUCOSE METER 175 mg/dL 70-110 H TESTED AT [facility] 6720 ([facility]) (test code = [place]ENDIRA [place] 1538) [address] POCT-GLUCOSE [id number] 18:30:00 Test Item Value Reference Range Interpretation Comments POC-GLUCOSE METER 225 mg/dL 70-110 H TESTED AT [facility] 6720 (BEAKER) (test code = ERENDIRA Guzman [facility] 1538) [address] POCT-GLUCOSE [id number] 12:17:00 Test Item Value Reference Range Interpretation Comments POC-GLUCOSE METER 170 mg/dL 70-110 H TESTED AT [facility] 6720 (BEAKER) (test code = ERENDIRA Guzman [facility] 1538) [id number] POCT-GLUCOSE [id number] 08:20:00 Test Item Value Reference Range Interpretation Comments POC-GLUCOSE METER 161 mg/dL 70-110 H TESTED AT [facility] 6720 (BEAKER) (test code = ERENDIRA Guzman [facility] 1538) [id number] BASIC METABOLIC [id number] 08:18:00 Test Item Value Reference Range Interpretation [...] 1092) DATA TO CALCULA TE ESTIMATED GFR. [id number] 08:15:00 Test Item Value Reference Range Interpretation Comments MAGNESIUM (BEAKER) 1.9 mg/dL 1.6-2.6 Specimen slightly (test code = 627) hemolyzed [id number] 08:15:00 Test Item Value Reference Range Interpretation Comments PHOSPHORUS (BEAKER) 2.3 mg/dL 2.3-4.7 Specimen slightly (test code = 604) hemolyzed RAD, CHEST, 1 VIEW, NON [id number] 07:56:00Reason for exam:->post-op cardiac surgeryShould this be [...] MDReport Verified Date/Time: 07/31/2019 07:56:15 Reading Location: [facility] Reading Room Electronically signed by: DIXON WILKERSON on 07/31 07:56 [id number] 07:25:00 Test Item Value Reference Range Interpretation [...] % 34.1-44.9 L 411) MEAN CORPUSCULAR VOLUME ([facility]) 104.4 fL 79.4-94.8 H (test code = 753) MEAN CORPUSCULAR HEMOGLOBIN 32.5 pg 25.6-32.2 H ([facility]) (test code = 751) MEAN CORPUSCULAR HEMOGLOBIN CONC 31.1 GM/DL 32.2-35.5 L (AKER) (test code = 752) RED CELL DISTRIBUTION WIDTH 19.2 % 11.7-14.4 H (AKER) (test code = 412) PLATELET COUNT ([facility]) (test 218 K/CU MM 150-450 code = 756) MEAN PLATELET VOLUME ([facility]) 11.0 fL 9.4-12.3 (test code = 754) NUCLEATED RED BLOOD CELLS 0 /100 WBC 0-0 ([facility]) (test code = 413) POCT-GLUCOSE [id number] 21:32:00 Test Item Value Reference Range Interpretation Comments POC-GLUCOSE METER 168 mg/dL 70-110 H TESTED AT [place] [address] ([facility]) ([facility] = [facility] 1538) [address] POCT-GLUCOSE [id number] 17:55:00 Test Item Value Reference Range Interpretation Comments POC-GLUCOSE METER 172 mg/dL 70-110 H TESTED AT [place] [address] ([facility]) (test [facility] = [facility] 1538) [id number] POCT-GLUCOSE [id number] 15:34:00 Test Item Value Reference Range Interpretation Comments POC-GLUCOSE METER 152 mg/dL 70-110 H TESTED AT [place] [address] ([facility]) (test [facility] = [facility] 1538) [address] POCT-GLUCOSE [id number] 12:52:00 Test Item Value Reference Range Interpretation Comments POC-GLUCOSE METER 222 mg/dL 70-110 H TESTED AT [place] [address] ([facility]) (test code = ERENDIRA Guzman [facility] 1538) [address] POCT-GLUCOSE [id number] 07:19:00 Test Item Value Reference Range Interpretation Comments POC-GLUCOSE METER 185 mg/dL 70-110 H TESTED AT [place] [address] ([facility]) (test [facility] = [facility] 1538) [address] [id number] 06:16:00 Test Item Value Reference Range Interpretation Comments ACTIVATED CLOTTING TIME 109 sec Refe rence Range: 74-137 (BEAKER) (test code = second s, 441) Baseline/TESTED AT [facility] [address] [facility] [address] [id number] 06:16:00 Test Item Value Reference Range Interpretation Comments ACTIVATED CLOTTING TIME 543 sec Refe rence Range: 74-137 (BEAKER) (test code = second s, 441) Baseline/TESTED AT [place] [id number] [facility] [address] [id number] 06:16:00 Test Item Value Reference Range Interpretation Comments ACTIVATED CLOTTING TIME 510 sec Refe rence Range: 74-137 (BEAKER) (test code = second s, 441) Baseline/TESTED AT [place] [id number] [facility] [address] 0 BASIC METABOLIC [id number] 06:04:00 Test Item Value Reference Range Interpretation [...] 1092) DATA TO CALCULA TE ESTIMATED GFR. [id number] 06:02:00 Test Item Value Reference Range Interpretation Comments PHOSPHORUS (BEAKER) (test code = 3.7 mg/dL 2.3-4.7 604) [id number] 06:02:00 Test Item Value Reference Range Interpretation Comments MAGNESIUM (BEAKER) (test code = 2.0 mg/dL 1.6-2.6 627) [id number] 05:57:00 Test Item Value Reference Range Interpretation [...] 2.5-3.5 for patients wiht mechanical heart valves.PROTHROMBIN [id number] 05:56:00 Test Item Value Reference Range Interpretation [...] 2.5-3.5 for patients wiht mechanical heart valves.CALCIUM, [id number] 05:55:00 Test Item Value Reference Range Interpretation Comments CALCIUM IONIZED (BEAKER) (test 1.17 mmol/L 1.12-1.27 code = 698) PH, BLOOD (BEAKER) (test code = 7.38 1810) CBC W/PLT COUNT & AUTO [id number] 05:55:00 Test Item Value Reference Range Interpretation [...] (BEAKER) (test code = 2801) OXYGEN SATURATION, [id number] 05:49:00 Test Item Value Reference Range Interpretation Comments O2 SATURATION (MEASURED) (BEAKER) 77.2 % (test code = 1455) RAD, CHEST, 1 VIEW, NON [id number] 05:35:00Reason for exam:->post-op cardiac surgeryShould this be [...] Signed: Hortencia Brand Verified Date/Time: 07/30/2019 05:35:16 [id number] 18:41:00 Test Item Value Reference Range Interpretation Comments POTASSIUM (BEAKER) (test code = 4.2 meq/L 3.5-5.1 379) PRN - repeat potassium levels every 1 hour until glucose level is less than 450 mg/dLPOCT-GLUCOSE [id number] 18:14:00 Test Item Value Reference Range Interpretation Comments POC-GLUCOSE METER 175 mg/dL 70-110 H TESTED AT [facility] 67[address] (BEAKER) (test code = ERENDIRA Guzman [facility] 1538) [address] BLOOD GAS, [id number] 16:57:00 Test Item Value Reference Range Interpretation [...] (test code = 1819) 40.0 % HEMOGLOBIN [id number] 16:17:00 Test Item Value Reference Range Interpretation Comments HEMOGLOBIN A1C ([facility]) (test code = 9.5 % 4.3-6.1 H 368) PLATELET AGGREGATION: FUNCTION [id number] 15:15:00 Test Item Value Reference Range Interpretation Comments [id number] Giovanni Tee M.D. ([facility]) (test code = (electonic signature) 2622) PLATELET COUNT AGG 273 K/CU MM 150-450 (BEAKER) (test code = 2656) PLATELET RICH 258 k/cu mm 200-300 PLASMA(BEAKER) (test code = 2134) PLATELET FUNCTION Pattern of SCREEN INTERPRETATION disaggregation present (AKER) (test code = with ADP which may be 4655) characteristic of P2Y12 inhibitor effect. Correlation with medication history is required. Platelet Function Screen results may be falsely low with platelet counts<75,000/cu mm.POCT-GLUCOSE [id number] 15:07:00 Test Item Value Reference Range Interpretation Comments POC-GLUCOSE METER 125 mg/dL 70-110 H TESTED AT [place] [address] ([facility]) (test code = [facility] 1538) [address] POCT-GLUCOSE [id number] 14:26:00 Test Item Value Reference Range Interpretation Comments POC-GLUCOSE METER 85 mg/dL 70-110 TESTED AT [place] [address] ([facility]) (test code = [facility] [address] 1538) POCT-GLUCOSE [id number] 14:14:00 Test Item Value Reference Range Interpretation Comments POC-GLUCOSE METER 88 mg/dL 70-110 TESTED AT [place] [address] ([facility]) (test code = [facility] [address] 1538) RAD, CHEST, 1 VIEW, NON [id number] 13:11:00Reason for exam:->Status post CV Surgery post [...] Verified Da te/Time: 07/29/2019 13:11:13 Reading Location: [facility] Reading Room -GLUCOSE [id number] 13:00:00 Test Item Value Reference Range Interpretation Comments POC-GLUCOSE METER 132 mg/dL 70-110 H TESTED AT [facility] 67[address] (BEAKER) (test code = [facility] [place] 1538) [address] BASIC METABOLIC [id number] 12:28:00 Test Item Value Reference Range Interpretation [...] 1092) DATA TO CALCULA TE ESTIMATED GFR. [id number] 12:27:00 Test Item Value Reference Range Interpretation Comments PHOSPHORUS (BEAKER) (test code = 2.3 mg/dL 2.3-4.7 604) [id number] 12:27:00 Test Item Value Reference Range Interpretation Comments MAGNESIUM (BEAK[facility]) (test code = 2.6 mg/dL 1.6-2.6 627) [id number] 12:26:00 Test Item Value Reference Range Interpretation Comments PARTIAL THROMBOPLASTIN TIME 27.4 seconds 22.5-36.0 (BEAKER) (test code = 760) PROTHROMBIN [id number] 12:25:00 Test Item Value Reference Range Interpretation [...] for patients wiht mechanical heart valves.LACTIC ACID, [id number] 12:21:00 Test Item Value Reference Range Interpretation Comments LACTATE BLOOD ARTERIAL (2) 1.2 mmol/L 0.5-2.2 (BEAKER) (test code = 2874) CBC W/PLT COUNT & AUTO [id number] 12:08:00 Test Item Value Reference Range Interpretation [...] PERCENT (BEAKER) (test code = 2801) CALCIUM, [id number] 12:04:00 Test Item Value Reference Range Interpretation Comments CALCIUM IONIZED (BEAKER) (test 1.15 mmol/L 1.12-1.27 code = 698) PH, BLOOD (BEAKER) (test code = 7.44 1810) BLOOD GAS, [id number] 12:03:00 Test Item Value Reference Range Interpretation [...] code = 1819) 60.0 % OXYGEN SATURATION, [id number] 12:00:00 Test Item Value Reference Range Interpretation Comments O2 SATURATION (MEASURED) (BEAKER) 66.6 % (test code = 1455) For occult [id number] 11:53:00 Test Item Value Reference Range Interpretation Comments PHOSPHORUS (BEAKER) (test code = 2.9 mg/dL 2.3-4.7 604) CALCIUM, [id number] 10:32:00 Test Item Value Reference Range Interpretation Comments CALCIUM IONIZED (BEAKER) (test 1.03 mmol/L 1.12-1.27 L code = 698) PH, BLOOD (BEAKER) (test code = 7.33 1810) BLOOD GAS, [id number] 10:31:00 Test Item Value Reference Range Interpretation [...] code = 1819) 100.0 % SODIUM NA-STAT [id number] 10:31:00 Test Item Value Reference Range Interpretation Comments SODIUM (BEAKER) (test code = 381) 133 meq/L 135-148 L GLUCOSE-STAT [id number] 10:31:00 Test Item Value Reference Range Interpretation Comments GLUCOSE RANDOM (BEAKER) (test code 226 mg/dL 70-110 H = 652) HGB/HCT (H&H) - STAT [id number] 10:31:00 Test Item Value Reference Range Interpretation Comments HEMOGLOBIN (BEAKER) (test code = 8.0 g/dL 12.0-15.0 L 410) HEMATOCRIT (BEAKER) (test code = 24.0 % 36.0-45.0 L 411) POTASSIUM-STAT [id number] 10:30:00 Test Item Value Reference Range Interpretation Comments POTASSIUM (BEAKER) (test code = 4.2 meq/L 3.6-5.5 379) BLOOD GAS, [id number] 10:05:00 Test Item Value Reference Range Interpretation [...] code = 1819) 80.0 % SODIUM NA-STAT [id number] 10:05:00 Test Item Value Reference Range Interpretation Comments SODIUM (BEAKER) (test code = 381) 127 meq/L 135-148 L POTASSIUM-STAT [id number] 10:05:00 Test Item Value Reference Range Interpretation Comments POTASSIUM (BEAKER) (test code = 5.9 meq/L 3.6-5.5 H 379) GLUCOSE-STAT [id number] 10:05:00 Test Item Value Reference Range Interpretation Comments GLUCOSE RANDOM (BEAKER) (test code 241 mg/dL 70-110 H = 652) HGB/HCT (H&H) - STAT [id number] 10:05:00 Test Item Value Reference Range Interpretation Comments HEMOGLOBIN (BEAKER) (test code = 8.0 g/dL 12.0-15.0 L 410) HEMATOCRIT (BEAKER) (test code = 24.0 % 36.0-45.0 L 411) BLOOD GAS, [id number] 09:51:00 Test Item Value Reference Range Interpretation [...] code = 1819) 80.0 % SODIUM NA-STAT [id number] 09:51:00 Test Item Value Reference Range Interpretation Comments SODIUM (BEAKER) (test code = 381) 130 meq/L 135-148 L GLUCOSE-STAT [id number] 09:51:00 Test Item Value Reference Range Interpretation Comments GLUCOSE RANDOM (BEAKER) (test code 249 mg/dL 70-110 H = 652) HGB/HCT (H&H) - STAT [id number] 09:51:00 Test Item Value Reference Range Interpretation Comments HEMOGLOBIN (BEAKER) (test code = 8.1 g/dL 12.0-15.0 L 410) HEMATOCRIT (BEAKER) (test code = 24.0 % 36.0-45.0 L 411) POTASSIUM-STAT [id number] 09:50:00 Test Item Value Reference Range Interpretation Comments POTASSIUM (BEAKER) (test code = 5.4 meq/L 3.6-5.5 379) BLOOD GAS, [id number] 09:23:00 Test Item Value Reference Range Interpretation [...] code = 1819) 100.0 % SODIUM NA-STAT [id number] 09:23:00 Test Item Value Reference Range Interpretation Comments SODIUM (BEAKER) (test code = 381) 132 meq/L 135-148 L GLUCOSE-STAT [id number] 09:23:00 Test Item Value Reference Range Interpretation Comments GLUCOSE RANDOM (BEAKER) (test code 164 mg/dL 70-110 H = 652) CALCIUM, [id number] 09:23:00 Test Item Value Reference Range Interpretation Comments CALCIUM IONIZED (BEAKER) (test 1.05 mmol/L 1.12-1.27 L code = 698) PH, BLOOD (BEAKER) (test code = 7.44 1810) POTASSIUM-STAT [id number] 09:22:00 Test Item Value Reference Range Interpretation Comments POTASSIUM (BEAKER) (test code = 4.0 meq/L 3.6-5.5 379) HGB/HCT (H&H) - STAT [id number] 09:22:00 Test Item Value Reference Range Interpretation Comments HEMOGLOBIN (BEAKER) (test code = 12.2 g/dL 12.0-15.0 410) HEMATOCRIT (BEAKER) (test code = 36.0 % 36.0-45.0 411) RAD, CHEST, 1 VIEW, NON [id number] 07:12:00Reason for exam:->preopShould this be performed at the bedside?->YesFINAL REPORT INDICATION: preop COMPARISON: None TECHNIQUE: Single frontal view of the chest. FINDINGS: Lungs and pleura: Clear lungs. No effusion.Heart and mediastinum: Normal heart size. Unremarkable mediastinal contours.Osseous structures: No acute abnormality.Other: None. IMPRESSION: No acute intrathoracic abnormality. Signed: Deirdre De Jesus Verified Date/Time: 07/29/2019 07:12:45 [id number] 07:01:00 Test Item Value Reference Range Interpretation Comments PARTIAL THROMBOPLASTIN TIME 31.2 seconds 22.5-36.0 (BEAKER) (test code = 760) BASIC METABOLIC [id number] 05:57:00 Test Item Value Reference Range Interpretation [...] 1092) DATA TO CALCULA TE ESTIMATED GFR. [id number] 05:51:00 Test Item Value Reference Range Interpretation Comments MAGNESIUM (BEAKER) (test code = 1.9 mg/dL 1.6-2.6 627) [id number] 05:35:00 Test Item Value Reference Range Interpretation [...] 2.5-3.5 for patients wiht mechanical heart valves.PROTHROMBIN [id number] 05:34:00 Test Item Value Reference Range Interpretation [...] mechanical heart valves.CBC W/PLT COUNT & AUTO [id number] 05:24:00 Test Item Value Reference Range Interpretation [...]
[2023-05-19 20:26] LABS: Absolute Lymphocytes (CBC) 2.7 K/uL (0.7-4.9); Hematocrit 42.2 % (36.0-45.0); Lymphocytes % 26.4 % (15.3-44.8); MCV 97.1 fL (80-100); Platelets 266 thou/uL (152-406); RBC Red Blood Cell Count 4.35 M/uL (3.86-4.86)
[2023-05-19] MEDS ORDERED: INSULIN -REGULAR HUMAN 50 UNIT/0.5 ML ML ONE (20:26)
[2023-05-19] MEDS ORDERED: ACETAMINOPHEN 500 MG TAB ONE (20:26)
[2023-05-19] MEDS ORDERED: NA CHLORIDE 0.9% 1,000 ML ONE ×2 (20:27→22:35)
[2023-05-19 20:29] LABS: Protime INR 0.99
--- NOTE | 2023-05-19 20:46 | RAD REPORT ---
EXAM DESCRIPTION: CT - Chest Abd Pelvis Wo Con - 05/19/2023 8:20 pm CLINICAL HISTORY: Chest and abdominal pain COMPARISON: February and March 2023 TECHNIQUE: Computed axial tomography of the chest, abdomen and pelvis was obtained. Oral contrast wa s given. IV contrast was not requested. All CT scans are performed using dose optimization technique as appropriate and may include automated exposure control or mA/KV adjustment according to patient size. FINDINGS: The evaluation of mediastinum, kristie, vessels and solid organs is limited secondary to the lack of IV contrast administration Minimal lung opacities. Lungs are otherwise clear No mediastinal or hilar lymphadenopathy is seen. A pleural effusion is not present. A pericardial effusion is not seen. Coronary arterial calcificatio ns Calcifications proximal renal arteries bilaterally result in high-grade stenoses. Additional atherosc lerosis The liver, spleen, pancreas, adrenals and left kidney appear grossly normal. Small nonobstructing rig ht renal calculus There is no evidence of diverticulitis. Cholecystectomy. No adnexal mass IMPRESSION: No acute abnormality is displayed
--- NOTE | 2023-05-19 20:46 | RAD REPORT ---
EXAM DESCRIPTION: Pérez Single View05/19/2023 7:48 pm CLINICAL HISTORY: Shortness of breath COMPARISON: February 2020. FINDINGS: The lungs appear clear of acute infiltrate. The heart is normal size. Postsurgical changes involve the chest IMPRESSION: No acute abnormalities displayed
[2023-05-19 20:50] LABS: SARS-CoV-2 Antigen Rapid Res Negative (Negative)
[2023-05-19 21:01] LABS: Albumin 2.9 g/dL (3.4-5.0); Bilirubin Direct 0.1 mg/dL (0-0.2); Bilirubin Indirect, Calculated 0.2 mg/dL (0.2-0.8); Bilirubin Total 0.3 mg/dL (0.2-1.0); Potassium 4.1 mEq/L (3.5-5.1); Protein, Total 8.1 g/dL (6.4-8.2); Troponin High Sensitivity 58.8 pg/mL (<58.9)
--- NOTE | 2023-05-19 22:25 | EDPHYS ---
Physician Documentation [facility] Name: Ivet Calderon Age: 72 yrs Sex: Female : 1950 Arrival Date: 05/19/2023 Time: 19:05 Bed 2 Private MD: ED Physician Alex Fierro HPI: 05/19 19:18 This 72 yrs old Female presents to ER via Unassigned with complaints of High sp4 Blood Sugar, Headache, don't feel food. 19:54 Very pleasant 72-year-old female with history of diabetes, myocardial infarction, sp4 hypercholesterolemia and hypertension presents with 2 days of generalized weakness fatigue, feeling overall unwell, headaches, and also elevated blood sugar at home today at 528. Patient denied any chest pains, abdominal pains, denied vomiting. Patient did report lower back pains . Historical: - Allergies: 19:20 Morphine; iw - PMHx: 19:20 diabetes mellitus; heart attack; Hypercholesterolemia; Hypertension; iw - PSHx: 19:20 Appendectomy; Cholecystectomy; open heart surgery; Stented artery; iw - Immunization history:: Adult Immunizations up to date. - Social history:: Smoking status: unknown. - Family history:: not pertinent. ROS: 05/20 07:36 Constitutional: Negative for fever, chills, and weight loss, positive for generalized sp4 weakness and elevated blood sugar, positive for overall discomfort All other systems are negative. Exam: 07:06 ECG was reviewed by the Attending Physician. EKG at 2042, normal sinus rhythm there is sp4 sinus rhythm at rate of 79. No ST elevation or depression. No ectopy 07:36 Constitutional: This is a well developed, well nourished patient who is awake, alert, sp4 and in no acute distress. Head/Face: Normocephalic, atraumatic. Eyes: Pupils equal round and reactive to light, extra-ocular motions intact. Lids and lashes normal. Conjunctiva and sclera are not injected. Cornea within normal limits. Periorbital areas with no swelling, redness, or edema. ENT: Nares patent. No nasal discharge, no septal abnormalities noted. Tympanic membranes are normal and external auditory canals are clear. Oropharynx with no redness, swelling, or masses, exudates, or evidence of obstruction, uvula midline. Mucous membranes moist. Neck: Trachea midline, no thyromegaly or masses palpated, and no cervical lymphadenopathy. Supple, full range of motion without nuchal rigidity, or vertebral point tenderness. Chest/axilla: Normal chest wall appearance and motion. Nontender with no deformity. No lesions are appreciated. Cardiovascular: Regular rate and rhythm with a normal S1 and S2. No gallops, murmurs, or rubs. Normal PMI, no JVD. No pulse deficits. Respiratory: Lungs have equal breath sounds bilaterally, clear to auscultation and percussion. No rales, rhonchi or wheezes noted. No increased work of breathing, no retractions or nasal flaring. Abdomen/GI: Soft, non-tender, with normal bowel sounds. No distension or tympany. No guarding or rebound. No evidence of tenderness throughout. Back: No spinal tenderness. No costovertebral tenderness. Skin: Warm, dry with normal turgor. Normal color with no rashes, no lesions, and no evidence of cellulitis. MS/ Extremity: Pulses equal, no cyanosis. Neurovascular intact. Full, normal range of motion. Neuro: Awake and alert, GCS 15, oriented to person, place, time, and situation. Cranial nerves II-XII grossly intact. Motor strength 5/5 in all extremities. Sensory grossly intact. Psych: Awake, alert, with orientation to person, place and time. Behavior, mood, and affect are within normal limits Vital Signs: 05/19 19:19 BP 161 / 82; Pulse 91; Resp 16; Temp 98.4; Pulse Ox 97% on R/A; iw 21:14 BP 183 / 74; Pulse 72; Resp 16; Pulse Ox 98% on R/A; kd3 MDM: 19:19 Patient medically screened. sp4 05/20 07:36 Differential diagnosis: DKA, hyperglycemia, hyperthyroidism, hypoglycemic episode, sp4 hypothyroidism. Data reviewed: vital signs, nurses notes, old medical records, lab test result(s), EKG, radiologic studies. Consideration of Admission/Observation Patient was admitted/placed on observation. Escalation of care including admission/observation considered. ED course: Patient tested positive for influenza which is likely the source of all the discomfort. Blood sugar has improved with IV hydration and IV insulin . Patient stable for discharge home. 05/19 19:19 Order name: Basic Metabolic Panel; Complete Time: 21:20 sp4 05/19 19:19 Order name: CBC with Diff; Complete Time: 21:20 sp4 05/19 19:19 Order name: LFT's; Complete Time: 21:20 sp4 05/19 19:19 Order name: Magnesium; Complete Time: 21:20 sp4 05/19 19:19 Order name: NT PRO-BNP; Complete Time: 21:20 sp4 05/19 19:19 Order name: PT-INR; Complete Time: 21:20 sp4 05/19 19:19 Order name: Troponin HS; Complete Time: 21:20 sp4 05/19 19:51 Order name: SARS RAPID; Complete Time: 21:20 sp4 05/19 19:51 Order name: Influenza Screen (a \T\ B); Complete Time: 21:20 sp4 05/19 19:51 Order name: Glucose, Ancillary Testing; Complete Time: 19:51 EDMS 05/19 20:34 Order name: Glucose, Ancillary Testing; Complete Time: 21:20 EDMS 05/19 22:17 Order name: Glucose, Ancillary Testing; Complete Time: 22:23 EDMS 05/19 19:19 Order name: XRAY Chest (1 view); Complete Time: 21:20 sp4 05/19 19:51 Order name: CT Chest Abdomen Pelvis W/O Contrast; Complete Time: 21:20 sp4 05/19 19:19 Order name: EKG; Complete Time: 19:20 sp4 05/19 19:19 Order name: Cardiac monitoring; Complete Time: 20:54 sp4 05/19 19:19 Order name: EKG - Nurse/Tech; Complete Time: 20:54 sp4 05/19 19:19 Order name: IV Saline Lock; Complete Time: 20:34 sp4 05/19 19:19 Order name: Labs collected and sent; Complete Time: 20:34 sp4 05/19 19:19 Order name: O2 Per Protocol; Complete Time: 20:34 sp4 05/19 19:19 Order name: O2 Sat Monitoring; Complete Time: 20:34 sp4 05/19 19:50 Order name: Accucheck Blood Glucose; Complete Time: 20:33 sp4 05/19 21:27 Order name: Accucheck Blood Glucose; Complete Time: 22:16 sp4 EC:06 Rate is 79 beats/min. Rhythm is regular, Sinus Rhythm. QRS Warren is Normal. DE interval sp4 is normal. QRS interval is normal. QT interval is normal. No Q waves. T waves are Normal. No ST changes noted. Clinical impression: No evidence of ischemia. Interpreted by me. Administered Medications: 05/19 20:33 Drug: NS 0.9% IV 1000 ml Route: IV; Rate: 1 bolus; Site: right antecubital; 3 05/20 05:35 Follow up: IV Status: Completed infusion 3 05/19 20:33 Drug: Acetaminophen PO 1000 mg Route: PO; kd3 05/20 05:35 Follow up: Response: No adverse reaction; Pain is decreased 3 05/19 20:48 Drug: Insulin Regular Human IVP 10 units {Co-Signature: jb4 (Peter Quesada RN).} Route: kd3 IVP; Site: right antecubital; 05/20 05:35 Follow up: Response: No adverse reaction 3 05/19 22:29 Drug: Ibuprofen PO 600 mg Route: PO; 05/20 05:34 Follow up: Response: No adverse reaction 3 05/19 22:29 Drug: metoCLOPramide IVP 10 mg Route: IVP; Site: right antecubital; 4 05/20 05:34 Follow up: Response: No adverse reaction 3 05/19 22:29 Drug: Oseltamivir PO 75 mg Route: PO; 05/20 05:34 Follow up: Response: No adverse reaction 3 05/19 22:29 Not Given (Physician Discretion): NS 0.9% IV 1000 ml IV at 125 ml/hr continuous jb4 22:36 Not Given (Physician Discretion): cloNIDine PO 0.1 mg PO once pf1 Disposition Summary: 05/19/23 22:25 Discharge Ordered Location: Home sp4 Problem: new sp4 Symptoms: have improved sp4 Condition: Stable sp4 Diagnosis - Influenza B, acute hyperglycemia, insulin-dependent diabetes sp4 Followup: sp4 - With: Private Physician - When: 7 - 10 days - Reason: Recheck today's complaints Discharge Instructions: - Discharge Summary Sheet sp4 - Influenza, Adult, [id number] sp4 Forms: - Patient Portal Instructions sp4 Prescriptions: - ondansetron 4 mg Oral Tablet,disintegrating - take 1 tablet by ORAL route every 6 hours PRN nausea; 30 tablet; Refills: 0, sp4 Product Selection Permitted - Ibuprofen 600 mg Oral Tablet - take 1 tablet by ORAL route every 6 hours As needed take with food; 30 tablet; sp4 Refills: 0, Product Selection Permitted - Tessalon Perles 100 mg Oral Capsule - take 2 capsule by ORAL route every 8 hours As needed PRN cough; 30 capsule; sp4 Refills: 0, Product Selection Permitted - Tamiflu 75 mg Oral Capsule - take 1 tablet by ORAL route every 12 hours for 5 days; 10 tablet; Refills: 0, sp4 Product Selection Permitted Signatures: Dispatcher [employer] Tracie Claire RN RN iw Peter Quesada RN RN jb4 Valery Dale RN RN kd3 Alex Fierro MD MD sp4 Carol Ann Jean RN pf1 Peter Quesada RN jb4
--- NOTE | 2023-05-19 22:25 | ER ---
Nurse's Notes [facility] Name: Ivet Calderon Age: 72 yrs Sex: Female : 1950 Arrival Date: 05/19/2023 Time: 19:05 Bed 2 Private MD: Diagnosis: Influenza B, acute hyperglycemia, insulin-dependent diabetes Presentation: 05/19 19:19 Chief complaint: Patient states: started to feel real bad, her BS was 528 , she wasn't; iw at her house so she couldn't take her insulin , she has a real bad headache and her body hurts. Coronavirus screen: At this time, the client does not indicate any symptoms associated with coronavirus-19. Ebola Screen: Patient negative for fever greater than or equal to 101.5 degrees Fahrenheit, and additional compatible Ebola Virus Disease symptoms Patient denies exposure to infectious person. Patient denies travel to an Ebola-affected area in the 21 days before illness onset. No symptoms or risks identified at this time. Initial Sepsis Screen: Does the patient meet any 2 criteria? No. Patient's initial sepsis screen is negative. Does the patient have a suspected source of infection? No. Patient's initial sepsis screen is negative. Risk Assessment: Do you want to hurt yourself or someone else? Patient reports no desire to harm self or others. Onset of symptoms was May 19, 2023. 19:19 Method Of Arrival: Ambulatory iw 19:19 Acuity: DORYS 3 iw Triage Assessment: 19:15 General: Appears uncomfortable, Behavior is calm, cooperative. kd3 19:15 Headache History: Denies prior headaches. Pain: Pain currently is 6 out of 10 on a pain kd3 scale. Pain began gradually, Also complains of no other associated symptoms. Historical: - Allergies: 19:20 Morphine; iw - PMHx: 19:20 diabetes mellitus; heart attack; Hypercholesterolemia; Hypertension; iw - PSHx: 19:20 Appendectomy; Cholecystectomy; open heart surgery; Stented artery; iw - Immunization history:: Adult Immunizations up to date. - Social history:: Smoking status: unknown. - Family history:: not pertinent. Screenin:20 [facility] ED Fall Risk Assessment (Adult) History of falling in the last 3 months, kd3 including since admission No falls in past 3 months (0 pts) Confusion or Disorientation No (0 pts) Intoxicated or Sedated No (0 pts) Impaired Gait No (0 pts) Mobility Assist Device Used No (0 pt) Altered Elimination No (0 pt) Score/Fall Risk Level 0 - 2 = Low Risk Maintained a safe environment. Abuse screen: Denies threats or abuse. Denies injuries from another. 19:20 Nutritional screening: No deficits noted. Tuberculosis screening: No symptoms or risk kd3 factors identified. Assessment: 19:15 General: Appears uncomfortable, Behavior is calm, cooperative. kd3 19:15 Pain: Complains of pain in headache. Neuro: Level of Consciousness is awake, alert, kd3 obeys commands, Oriented to person, place, time, situation. Cardiovascular: Patient's skin is warm and dry. Respiratory: Airway is patent Trachea midline Respiratory effort is even, unlabored, Respiratory pattern is regular, symmetrical. Vital Signs: 19:19 BP 161 / 82; Pulse 91; Resp 16; Temp 98.4; Pulse Ox 97% on R/A; iw 21:14 BP 183 / 74; Pulse 72; Resp 16; Pulse Ox 98% on R/A; kd3 ED Course: 19:14 Patient arrived in ED. es 19:18 Alex Fierro MD is Attending Physician. sp4 19:20 Triage completed. iw 19:20 Arm band placed on. iw 19:20 Provided Education on: . kd3 19:20 Patient has correct armband on for positive identification. kd3 19:50 XRAY Chest (1 view) In Process Unspecified. EDMS 19:50 No provider procedures requiring assistance completed. kd3 19:54 Valery Dale, RN is Primary Nurse. kd3 20:12 Inserted saline lock: 20 gauge in right upper arm, using aseptic technique. Blood kd3 collected. 20:22 CT Chest Abdomen Pelvis W/O Contrast In Process Unspecified. EDMS 20:34 SARS RAPID Sent. kd3 20:34 Influenza Screen (a \T\ B) Sent. kd3 20:34 Troponin HS Sent. kd3 20:34 NT PRO-BNP Sent. kd3 20:34 Magnesium Sent. kd3 20:34 LFT's Sent. kd3 20:34 Basic Metabolic Panel Sent. kd3 22:47 IV discontinued, intact, bleeding controlled, No redness/swelling at site. Pressure pf1 dressing applied. Administered Medications: 20:33 Drug: NS 0.9% IV 1000 ml Route: IV; Rate: 1 bolus; Site: right antecubital; 3 05/20 05:35 Follow up: IV Status: Completed infusion kd3 05/19 20:33 Drug: Acetaminophen PO 1000 mg Route: PO; kd3 05/20 05:35 Follow up: Response: No adverse reaction; Pain is decreased kd3 05/19 20:48 Drug: Insulin Regular Human IVP 10 units {Co-Signature: [email or web address] (Peter Quesada RN).} Route: kd3 IVP; Site: right antecubital; 05/20 05:35 Follow up: Response: No adverse reaction kd3 05/19 22:29 Drug: Ibuprofen PO 600 mg Route: PO; 05/20 05:34 Follow up: Response: No adverse reaction kd3 05/19 22:29 Drug: metoCLOPramide IVP 10 mg Route: IVP; Site: right antecubital; 05/20 05:34 Follow up: Response: No adverse reaction kd3 05/19 22:29 Drug: Oseltamivir PO 75 mg Route: PO; 4 05/20 05:34 Follow up: Response: No adverse reaction kd3 05/19 22:29 Not Given (Physician Discretion): NS 0.9% IV 1000 ml IV at 125 ml/hr continuous jb4 22:36 Not Given (Physician Discretion): cloNIDine PO 0.1 mg PO once pf1 Medication: 05/20 05:34 VIS not applicable for this client. kd3 Outcome: 05/19 22:25 Discharge ordered by . sp4 22:47 Discharged to home ambulatory. pf1 22:47 Condition: improved 22:47 Discharge instructions given to patient, Instructed on discharge instructions, follow up and referral plans. Demonstrated understanding of instructions, follow-up care, medications, Prescriptions given X 4. 22:47 Patient left the ED. pf1 Signatures: Dispatcher [employer] Qi Healy Irene RN Peter Cortés RN RN jb4 Valery Dale RN RN kd3 Carol Ann Jean RN RN pf1 Alex Fierro MD MD sp4 Peter Quesada RN jb4
[2023-05-19] MEDS ORDERED: METOCLOPRAMIDE 10 MG/2mL INJ ONE (22:34)
[2023-05-19] MEDS ORDERED: IBUPROFEN 200 MG TAB PO ONE (22:34)
[2023-05-19] MEDS ORDERED: OSELTAMIVIR 75 MG CAP PO ONE (22:34)
[2023-05-19 22:55] VITALS: TEMP 98.4
[2023-05-19 23:00] VITALS: BP 183/74; O2SAT 98
--- NOTE | 2023-05-20 13:00 | EKG ---
Test Date: 2023-05-19 Test Time: 20:43:23 [employer]acking [employer] Feeder: [email or web address] MEASUREMENT RESULTS: Intervals: Rate: 79 RI: 154 QRSD: 80 QT: 378 QTc: 433 Elliott: P: 54 RI: 154 QRS: 72 T: 57 INTERPRETIVE STATEMENTS: Normal sinus rhythm Cannot rule out Anterior infarct, age undetermined Abnormal ECG Compared to ECG 04/02/2023 13:38:53 No significant changes Electronically Signed On 05-20-23 12:59:00 CDT by Arnaldo Tan
== END 2023-05-19 22:47 | disposition home or self-care (01) ==
LOC: ER 19:05
DX: J10.1 Influenza due to other identified influenza virus with other respiratory manifestations (principal); E13.65 Other specified diabetes mellitus with hyperglycemia; Z79.4 Long term (current) use of insulin; Z20.822 Contact with and (suspected) exposure to COVID-19; I10 Essential (primary) hypertension; Z88.5 Allergy status to narcotic agent
CPT/HCPCS: 96361; 93005; 85025; 80048; 36415; 83735; 85610; 82947 ×3; 80076; 84484; 83880; 87804 ×2; 71250; 74176; 71045; 96375; 96374; 99284; 87811; J1815; J2765; J7030 ×2

== ENCOUNTER 2023-05-23 08:26 | Emergency (ER) | payer OTHER ==
--- OUTSIDE RECORDS SUMMARY | 2023-05-23 08:55 | XMS REPORT | Continuity of Care Document ---
:1950 Author Organization [facility] t Address [address] [place] [address] [address] [place] [address] Care Team Providers Name Role Phone CARMINE LAO Primary Care Physician Unavailable Carmine Lao Attending Clinician Unavailable JUAN GALLARDO Attending Clinician Unavailable ALDEN ISAACS Attending Clinician Unavailable Alden Isaacs MD Attending Clinician UTE YOST Attending Clinician Unavailable Cinthia Vincent Attending Clinician CINTHIA GARCIA Attending Clinician Unavailable Ute Yost MD Attending Clinician Carol Ann Beatty NP Attending Clinician Charlette Barber Attending Clinician Doctor Unassigned, [place] Attending Clinician Unavailable Juan Gallardo MD Attending Clinician [phone] Maribell Moe MD Attending Clinician Yudith_J_AH Attending Clinician Unavailable YAMEL MONIQUE Attending Clinician Unavailable JUAN GALLARDO Admitting Clinician Unavailable ALDEN ISAACS Admitting Clinician Unavailable JodieAH Admitting Clinician Unavailable YAMEL MONIQUE Admitting Clinician Unavailable Payers Payer Name Policy Type Policy Number Effective Date Expiration Date [id number] 2018 ALL 00:00:00 [employer] [id number] 2022spring 00:00:00 HUMANA MEDICARE C1 [id number] Common Sp ke[facility] - [facility] HUMANA MEDICARE C1 [id number] [facility] ke[facility] - [facility] HUMANA MEDICARE C1 [id number] [facility] ke[facility] - [facility] HUMANA MEDICARE C1 [id number] [facility] keith - [facility] HUMANA GOLD PLS [id number] 2021 O 00:00:00 [facility] [place] [id number] 2019 [facility] (MEDICARE REPLACEMENT/ADV ANTAGE - [...] by 1 by 0-16 Reji Gallardo on [facility] on 00:00: Me dical 07/29/2019 07/29/2019 00 Ce nter Coronary Coronary Disease Active 2018-10 [facility] S t artery artery 0-15 [facility] disease disease 00:00: Medical 00 Center Other Other Disease Active Overview: Salvatore s appendicit appendicit 6-06 Formattin ity of is is 00:00: g of this [place] 00 note Medical might be Branch different from the original. Added automatic ally from request for surgery [id number] HLD HLD Disease Active Univers (hyperlipi (hyperlipi 7-06 it y of demia) demia) 00:00: [place] 00 Medical Branch Abnormal Abnormal Disease Active Unive rs EKG EKG 04-18 ity of 00:00: [place] 00 Medical Branch Anemia of Anemia in Problem Com mon chronic chronic Spirit disorder illness - [facility] Anemia due Anemia, Problem Comm on to blood blood loss Spir it loss - [facility] Type II Diabetic Problem Common diabetes eye exam Spirit mellitus - CHI without St complicati [facility] [id number] Demand Problem Common ischemia Spirit - [facility] [id number] Stenosis Problem Comm on of right Spirit vertebral - CHI artery [facility] Laboratory Abnormal Problem Com mon test laboratory Spirit result test - [facility] abnormal [facility] [id number] Other Problem Common obesity Spirit due to - CHI excess [facility] [id number] Body mass Problem Com mon index Spirit [BMI] - [facility] 31.0-31.9, [facility] [id number] Mixed Problem Common hyperlipid Spirit emia - [facility] [id number] Stented Problem Commo n coronary Spirit artery - [facility] [id number] Essential Problem Comm on (primary) Spirit hypertensi - [facility] on [facility] [id number] Essen Problem Common hyperten Spirit preg-unsp - [facility] [id number] Coronary Problem Comm on artery Spirit disease - [facility] involving [facility] coronary Medical artery of [place] heart with other form of angina pectoris [id number] Type 2 Problem Common diabetes Spirit mellitus - CHI with St hyperglyce [facility] without Center long-term current use of insulin [id number] Iron Problem Common deficiency Spirit anemia, - CHI unspecifie [facility] iron [facility] deficiency Medica l anemia Center type [id number] 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, St unspecifie [facility] d trigger Medical Center 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 - CHI thrombosis thrombosis St of of [facility] cerebral unspecifie Medi albert arteries d Center posterior cerebral artery Angina Angina Problem Common pectoris pectoris, Spiri t unspecifie - CHI d [facility] Acute Acute Disease Recurre [facility] respirator respirator nce Daniela kes y y Medical insufficie insufficie Ce nter ncy ncy Acute Acute Disease Active [facility] blood loss blood loss Daniela kes anemia anemia Medical Center Hyperglyce Hyperglyce Disease Active C [facility] Chronic Chronic Disease Active [facility] hypertensi hypertensi Daniela kes on on Medical Center Allergies, Adverse Reactions, Alerts Allergy Allergy Status Severity Reaction(s) Onset Inactive Treating Comm ents Source Name Type Date Date Clinician Morphine Propensi Active Other - See Burning Univers ty to comments 06-18 to skin ity of adverse 00:00: [place] reaction 00 Medical s Myrtle MORPHINE DRUG Active Other-Cmnt Univ ers INGREDI 06-18 ity of 00:00: [place] 00 [facility] Branch Morphine Propensi Active 2019-[address] ty to 11-14 [facility] adverse 00:00: Medical reaction 00 Center s MORPHINE Allergy Active 2019-[address] 11-14 [facility] 00:00: Medical 00 Center morphine morphine Active [place] [facility] NO KNOWN Drug Active Univers ALLERGIE Class ity of S [facility] [place] [facility] NO KNOWN Allergy Active [facility] ALLERGIE S Family History Family Member Diagnosis Comments Start Date Stop Date Source Natural brother Heart attack [facility] Natural father Diabetes [facility] Natural father Heart disease [facility] Natural mother Diabetes [facility] Natural mother [facility] Social History Social Habit Start Date Stop Date Quantity Comments Source History of Common Spirit - Tobacco Use [facility] History SDOH [facility] Alcohol Std Medical Cente r Drinks History SDOH [facility] Alcohol Binge Medical Tina ter History SDOH [facility] Alcohol Comment Medical C enter Exposure to 2023-02-09 2023-02-19 Not sure University of SARS-CoV-2 00:00:00 15:54:00 [facility] (event) [place] Alcohol intake 2020-10-03 2020-10-[address] Dhruv es 00:00:00 00:00:00 non-drinker of Medical Ce nter alcohol (finding) History SDOH 2019-07-29 2019-07-[address] [facility] Alcohol Frequency 00:00:00 00:00:00 [facility] Tobacco use and 2019-03-19 2019-03-19 Smokeless tobacco Un iversity of exposure 00:00:00 00:00:00 non-user [facility] [place] [facility] Sex Assigned At [address] Daniela kes 00:00:00 00:00:00 Medical Center Smoking Status Start Date Stop Date Source Never Smoker Common [facility] Medications Ordered Filled Start Stop Current Ordering Indication Dosage Frequency Signature Comments Components Source Medication Medication Date Date Medication? Clinician (SIG) Name Name cefTRIAXone 2022- No 1000mg 1,000 mg, Univers (ROCEPHIN) 5 05-10 IV ity of 1,000 mg in 01:15: 01:44 Piggyback, [place] NaCl 0.9% 00 :00 ONCE, 1 Medical [...] Branch Sat02/19/23 at 2014, JASON Nitrofurant 2022- No [id number] 100mg Take 1 Univers oin&Nit. 02-19 capsule [...] [place] 10[place]325 mg [place] :00 dose, [place] Medic al tablet 1 06/18/21 at Branch tablet 1145, Routine clopidogreL Yes 75mg Take 75 mg Univers 75 mg 06-18 by mouth. ity of tablet 16:10: [address] metoprolol Yes 25mg Take 25 mg U nivers tartrate 06-18 by mouth. ity of mg tablet 16:10: [address] clopidogreL Yes 75mg Take 75 mg Univers 75 mg 06-18 by mouth. ity of tablet 16:10: [address] metoprolol Yes 25mg Take 25 mg U nivers tartrate 06-18 by mouth. ity of mg tablet 16:10: [address] clopidogreL Yes 75mg Take 75 mg Univers 75 mg 05 by mouth. ity of tablet 16:10: [address] metoprolol Yes 25mg Take 25 mg U nivers tartrate 06-18 by mouth. ity of mg tablet 16:10: [address] clopidogreL Yes 75mg Take 75 mg Univers 75 mg 05 by mouth. ity of tablet 16:10: [address] metoprolol Yes 25mg Take 25 mg U nivers tartrate 06-18 by mouth. ity of mg tablet 16:10: [address] clopidogreL Yes 75mg Take 75 mg Univers 75 mg 06-18 by mouth. ity of tablet 16:10: [address] metoprolol Yes 25mg Take 25 mg U nivers tartrate 06-18 by mouth. ity of mg tablet 16:10: [address] atorvastati 2020- No 80mg Take 80 mg Univers n 40 mg 06-18 by mouth. ity of tablet 16:10: 00:00 [place] : [facility] metFORMIN 2020-0 2020- No 850mg Take 850 Un zia 850 mg 06-18 mg by ity of tablet 16:10: 00:00 mouth. : [facility] clopidogreL Yes 75mg Take 75 mg Univers 75 mg 06-18 by mouth. ity of tablet 11:10: [address] metoprolol Yes 25mg Take 25 mg U nivers tartrate 06-18 by mouth. ity of mg tablet 11:10: [address] traMADoL 50 2020- No [id number] 50mg [...] 2-21 by mouth [facility] tablet 11:03: daily. [address] atorvastati 2019-10 Yes 80mg QD Take [address] n (LIPITOR) 2-21 by mouth Luke s 40 MG 11:03: daily . Medical tablet [address] [place] [address] metFORMIN 2019-10 Yes 850mg Take [address] (GLUCOPHAGE 2-21 mg by [facility]ukes ) 850 MG 11:03: mouth 2 Medica l tablet 52 (two) Center times daily with breakfast and dinner. clopidogreL 2019-10 Yes 75mg QD Take [address] (PLAVIX) 75 2-21 by mouth Luke s mg tablet 11:03: daily. Medica l [address] [place] [address] metoprolol 2019-10 Yes 25mg Q.5D Take [address] tartrate 2-21 by mouth 2 [facility] (LOPRESSOR) 11:03: (two) Medic al 25 MG 52 times Center tablet daily. aspirin 81 2019-10 Yes 81mg QD Take [address] MG EC 2-21 by mouth [facility] tablet 11:03: daily. [address] atorvastati 2019-10 Yes 80mg QD Take [address] n (LIPITOR) 2-21 by mouth Luke s 40 MG 11:03: daily . Medical tablet [address] [place] [address] metFORMIN 2019-10 Yes 850mg Take [address] (GLUCOPHAGE 2-21 mg by [facility]ukes ) 850 MG 11:03: mouth 2 Medica l tablet 52 (two) Center times daily with breakfast and dinner. clopidogreL 2019-10 Yes 75mg QD Take [address] (PLAVIX) 75 2-21 by mouth Luke s mg tablet 11:03: daily. [address] metoprolol 2019-10 Yes 25mg Q.5D Take [address] tartrate 2-21 by mouth 2 [facility] (LOPRESSOR) 11:03: (two) Medic al 25 MG 52 times Center tablet daily. aspirin 81 2019-10 Yes 81mg QD Take [address] MG EC 2-21 by mouth [facility]ukes tablet 11:03: daily. [address] atorvastati 2019-10 Yes 80mg QD Take [address] n (LIPITOR) 2-21 by mouth Luke s 40 MG 11:03: daily . Medical tablet [address] [place] [address] metFORMIN 2019-10 Yes 850mg Take [address] (GLUCOPHAGE 2-21 mg by [facility]ukes ) 850 MG 11:03: mouth 2 Medica l tablet 52 (two) Center times daily with breakfast and dinner. clopidogreL 2019-10 Yes 75mg QD Take [address] (PLAVIX) 75 2-21 by mouth Luke s mg tablet 11:03: daily. [address] metoprolol 2019-10 Yes 25mg Q.5D Take [address] tartrate 2-21 by mouth 2 [facility] (LOPRESSOR) 11:03: (two) Medic al 25 MG 52 times Center tablet daily. aspirin 81 2019-10 Yes 81mg QD Take [address] MG EC 2-21 by mouth [facility]ukes tablet 11:03: daily. [address] atorvastati 2019-10 Yes 80mg QD Take [address] n (LIPITOR) 2-21 by mouth Luke s 40 MG 11:03: daily . Medical tablet [address] [place] [address] metFORMIN 2019-10 Yes 850mg Take [address] (GLUCOPHAGE 2-21 mg by Lukes ) 850 MG 11:03: mouth 2 Medica l tablet 52 (two) Center times daily with breakfast and dinner. clopidogreL 2019-10 Yes 75mg QD Take [address] (PLAVIX) 75 2-21 by mouth Luke s mg tablet 11:03: daily. [address] metoprolol 2019-10 Yes 25mg Q.5D Take [address] tartrate 2-21 by mouth 2 [facility] (LOPRESSOR) 11:03: (two) Medic al 25 MG 52 times Center tablet daily. aspirin 81 2019-10 Yes 81mg QD Take [address] MG EC 2-21 by mouth [facility]ukes tablet 11:03: daily. [address] [facility]-10 Yes 80mg QD Take [address] n (LIPITOR) 2-21 by mouth Luke s 40 MG 11:03: daily . Medical tablet [address] [place] [address] metFORMIN 2019-10 Yes 850mg Take [address] (GLUCOPHAGE 2-21 mg by Lukes ) 850 MG 11:03: mouth 2 Medica l tablet 52 (two) Center times daily with breakfast and dinner. clopidogreL 2019-10 Yes 75mg QD Take [address] (PLAVIX) 75 2-21 by mouth Luke s mg tablet 11:03: daily. Medica [address] metoprolol 2019-10 Yes 25mg Q.5D Take [address] tartrate 2-21 by mouth 2 [facility] (LOPRESSOR) 11:03: (two) Medic al 25 MG 52 times Center tablet daily. aspirin 81 2019-10 Yes 81mg QD Take [address] MG EC 2-21 by mouth [facility]ukes tablet 11:03: daily. [address] [facility] Yes 80mg QD Take [address] n (LIPITOR) 2-21 by mouth Luke s 40 MG 11:03: daily . [address] metFORMIN 2019-10 Yes 850mg Take [address] (GLUCOPHAGE 2-21 mg by Lukes ) 850 MG 11:03: mouth 2 Medica l tablet 52 (two) Center times daily with breakfast and dinner. clopidogreL 2019-10 Yes 75mg QD Take [address] (PLAVIX) 75 2-21 by mouth Luke s mg tablet 11:03: [facility]. [facility] [address] metoprolol 2019-10 Yes 25mg Q.5D Take [address] tartrate 2-21 by mouth 2 [facility] (LOPRESSOR) 11:03: (two) Medic al 25 MG 52 times Center tablet daily. aspirin 81 2019-10 Yes 81mg QD Take [address] MG EC 2-21 by mouth Lukes tablet 11:03: daily. [address] [facility] 2019-10 Yes 80mg QD Take [address] n (LIPITOR) 2-21 by mouth Luke s 40 MG 11:03: daily . Medical tablet [address] [place] [address] metFORMIN 2019-10 Yes 850mg Take [address] (GLUCOPHAGE 2-21 mg by Lukes ) 850 MG 11:03: mouth 2 Medica l tablet 52 (two) Center times daily with breakfast and dinner. clopidogreL 2019-10 Yes 75mg QD Take [address] (PLAVIX) 75 2-21 by mouth Luke s mg tablet 11:03: daily. Medica [address] metoprolol 2019-10 Yes 25mg Q.5D Take [address] tartrate 2-21 by mouth 2 [facility]ukes (LOPRESSOR) 11:03: (two) Medic al 25 MG 52 times Center tablet daily. aspirin 81 2019-10 Yes 81mg QD Take [address] MG EC 2-21 by mouth [facility]ukes tablet 11:03: daily. [address] atorvastati 2019-10 Yes 80mg QD Take [address] n (LIPITOR) 2-21 by mouth Luke s 40 MG 11:03: daily . Medical tablet [address] [place] [address] metFORMIN 2019-10 Yes 850mg Take [address] (GLUCOPHAGE 2-21 mg by [facility]ukes ) 850 MG 11:03: mouth 2 Medica l tablet 52 (two) Center times daily with breakfast and dinner. clopidogreL 2019-10 Yes 75mg QD Take [address] (PLAVIX) 75 2-21 by mouth Luke s mg tablet 11:03: [facility]. [facility] [address] metoprolol 2019-10 Yes 25mg Q.5D Take [address] tartrate 2-21 by mouth 2 [facility] (LOPRESSOR) 11:03: (two) Medic al 25 MG 52 times Center tablet daily. aspirin 81 2019-10 Yes 81mg QD Take [address] MG EC 2-21 by mouth [facility]ukes tablet 11:03: daily. [address] atorvastati 2019-10 Yes 80mg QD Take [address] n (LIPITOR) 2-21 by mouth Luke s 40 MG 11:03: daily . Medical tablet [address] [place] [address] metFORMIN 2019-10 Yes 850mg Take [address] (GLUCOPHAGE 2-21 mg by [facility]ukes ) 850 MG 11:03: mouth 2 Medica l tablet 52 (two) Center times daily with breakfast and dinner. clopidogreL 2019-10 Yes 75mg QD Take [address] (PLAVIX) 75 2-21 by mouth Luke s mg tablet 11:03: daily. Medica l 52 Center metoprolol 2019- Yes 25mg Q.5D Take 25 mg C [...] 00:00: subcutaneo Medica l Insuln 100 00 [facility] Center unit/mL (3 nightly. mL) InPn injection Insulin 2019-10 Yes 15U inject 15 Unive rs Detemir 1-04 Units ity of (LEVEMIR 00:00: [place] FLEXTOU[place] 00 skin. Medical U-100 Branch INSULN) 100 unit/mL (3 mL) injection citalopram 2019-10 Yes 20mg Take 20 mg U nivers 20 mg 0-14 by mouth. ity of tablet 00:00: [place] [facility] citalopram 2019-10 Yes 20mg Take 20 mg U nivers 20 mg 0-14 by mouth. ity of tablet 00:00: [place] [facility] citalopram 2019-10 Yes 20mg Take 20 mg U nivers 20 mg 0-14 by mouth. ity of tablet 00:00: [place] [facility] citalopram 2019-10 Yes 20mg Take 20 mg U nivers 20 mg 0-14 by mouth. ity of tablet 00:00: [place] [facility] citalopram 2019-10 Yes 20mg Take 20 mg U nivers 20 mg 0-14 by mouth. ity of tablet 00:00: [address] citalopram 2019-10 Yes 20mg Take 20 mg U nivers 20 mg 0-14 by mouth. ity of tablet 00:00: [place] [facility] citalopram 2019-10 Yes 20mg QD Take [address] (CeleXA) 20 0-14 by mouth Luke s MG tablet 00:00: daily. Medica l [place] citalopram 2019-10 Yes 20mg QD Take [address] (CeleXA) 20 0-14 by mouth Luke s MG tablet 00:00: daily. Medica l [place] citalopram 2019-10 Yes 20mg QD Take [address] (CeleXA) 20 0-14 by mouth Luke s MG tablet 00:00: daily. Medica l [place] citalopram 2019-10 Yes 20mg QD Take [address] (CeleXA) 20 0-14 by mouth Luke s MG tablet 00:00: daily. Medica 00 [place] citalopram 2019-10 Yes 20mg QD Take [address] (CeleXA) 20 0-14 by mouth Luke s MG tablet 00:00: daily. Medica [place] citalopram 2019-10 Yes 20mg QD Take [address] (CeleXA) 20 0-14 by mouth Luke s MG tablet 00:00: daily. Medica [place] citalopram 2019-10 Yes 20mg QD Take [address] (CeleXA) 20 0-14 by mouth Luke s MG tablet 00:00: daily. Medica [place] citalopram 2019-10 Yes 20mg QD Take [address] (CeleXA) 20 0-14 by mouth Luke s MG tablet 00:00: daily. [facility] [place] [facility]ital[facility]ram 2019-10 Yes 20mg QD Take [address] (CeleXA) 20 0-14 by mouth Luke s MG tablet 00:00: daily. [facility] [address] metoprolol 2018-10 No 25mg Q.5D Take 1 [...] due to financial issues atorvastati 2019-0 Yes [id number] 40mg Take 1 Univers n 40 mg [...] due to financial issues atorvastati 2018-0 Yes [id number] 40mg Take 1 Univers n 40 mg [...] due to financial issues atorvastati 2019-0 Yes [id number] 40mg Take 1 Univers n 40 mg [...] due to financial issues atorvastati 2019-0 Yes [id number] 40mg Take 1 Univers n 40 mg [...] due to financial issues atorvastati 2019-0 Yes [id number] 40mg Take 1 Univers n 40 mg [...] while due to financial issues atorvastati Yes [id number] 40mg Take 1 Univers n 40 mg [...] while due to financial issues atorvastati Yes [id number] 40mg Take 1 Univers n 40 mg [...] . Medi albert MG tablet 00 Center hydroCHLORO Yes 12.5mg Take 1 Un zia [...] while due to financial issues atorvastati Yes [id number] 40mg Take 1 Univers n 40 mg 6-24 tablet by ity of tablet 00:00: mouth at [place] 00 bedtime. Medical Branch lisinopril 0 Yes 40mg QD Take [address] (PRINIVIL,Z 6-24 by mouth Luke s ESTRIL) 20 00:00: daily . Medi albert MG tablet 00 [place] lisinopril 20190 Yes 40mg QD Take [address] (PRINIVIL,Z 6-24 by mouth Luke s ESTRIL) 20 00:00: daily . Medi albert MG tablet 00 [place] lisinopril 0 Yes 40mg QD Take [address] (PRINIVIL,Z 6-24 by mouth Luke s ESTRIL) 20 00:00: daily . Medi albert MG tablet 00 [place] lisinopril 0 Yes 40mg QD Take [address] (PRINIVIL,Z 6-24 by mouth Luke s ESTRIL) 20 00:00: daily . Medi albert MG tablet 00 [place] lisinopril 0 Yes 40mg QD Take [address] (PRINIVIL,Z 6-24 by mouth Luke s ESTRIL) 20 00:00: daily . Medi albert MG tablet 00 [place] lisinopril 0 Yes 40mg QD Take [address] (PRINIVIL,Z 6-24 by mouth Luke s ESTRIL) 20 00:00: daily . Medi albert MG tablet 00 [place] lisinopril 0 Yes 40mg QD Take [address] (PRINIVIL,Z 6-24 by mouth Luke s ESTRIL) 20 00:00: daily . Medi albert MG tablet 00 [place] lisinopril 0 Yes 40mg QD Take [address] (PRINIVIL,Z 6-24 by mouth Luke s ESTRIL) 20 00:00: daily . Medi albert MG tablet 00 [place] traMADOL 50 0 Yes [id number] 50mg Take 1 Univers mg tablet 6-17 tablet by ity o f 00:00: mouth [place] 00 every 6 Medical (six) Branch hours as needed for Pain (scale 7-10). traMADOL 50 2018-0 Yes [id number] 50mg Take 1 Univers mg tablet 6-17 tablet by ity o f 00:00: mouth [place] 00 every 6 Medical (six) Branch hours as needed for Pain (scale 7-10). traMADOL 50 2019-0 Yes [id number] 50mg Take 1 Univers mg tablet 6-17 tablet by ity o f 00:00: mouth [place] 00 every 6 Medical (six) Branch hours as needed for Pain (scale 7-10). traMADOL 50 2019-0 Yes [id number] 50mg Take 1 Univers mg tablet 6-17 tablet by ity o f 00:00: mouth [place] 00 every 6 Medical (six) Branch hours as needed for Pain (scale 7-10). traMADOL 50 2019-0 Yes [id number] 50mg Take 1 Univers mg tablet 6-17 tablet by ity o f 00:00: mouth [place] 00 every 6 Medical (six) Branch hours as needed for Pain (scale 7-10). traMADOL 50 2019-0 Yes [id number] 50mg Take 1 Univers mg tablet 6-17 tablet by ity o f 00:00: mouth [place] 00 every 6 Medical (six) Branch hours as needed for Pain (scale 7-10). traMADOL 50 2019-0 Yes [id number] 50mg Take 1 Univers mg tablet 6-17 tablet by ity o f 00:00: mouth [place] 00 every 6 Medical (six) Branch hours as needed for Pain (scale 7-10). traMADOL 50 2019-0 Yes [id number] 50mg Take 1 Univers mg tablet 6-17 [...] due to financial issues amoxicillin 2019-0 Yes [id number] 1{tbl} Take 1 Univers -clavulanat 6-13 tablet by ity of e 00:00: mouth 2 [place] (AUGMENTIN) 00 (two) Medical 875-125 mg times Branch per tablet daily. amoxicillin 2019-0 Yes [id number] 1{tbl} Take 1 Univers -clavulanat 6-13 tablet by ity of e 00:00: mouth 2 [place] (AUGMENTIN) 00 (two) Medical 875-125 mg times Branch per tablet daily. amoxicillin 2018-0 2020- No [id number] 1{tbl} Take 1 Univers -clavulanat 6-13 09-05 [...] 00:00: mouth [place] 00 daily. Medical Branch Cetirizine Cetirizine No 1{table QD Cetirizine HCl [...] 850 MG t_with_ HCl 850 MG a_meal} - 81 Aspir-81 81 No 1{table QD Aspir-81 [...] 40 MG t} 40 MG Aspir-81 81 - 81 No 1{table [...] Date Status Commen ts Source Name Name [facility] 20 ([facility]20) [facility] 20 ([facility]20) 2023-02-12 Completed [facility] 17:13:00 [facility] Prevnar 20 ([facility]20) [facility] 20 ([facility]20) 2023-02-12 Completed [facility] 17:13:00 - [facility] Prevnar [facility] (PCV20) [facility] 2023-02-12 Completed [facility] 17:13:00 - [facility] Prevnar 20 (PCV20) Prevnar 20 (PCV20) 2023-02-12 Completed [facility] 17:13:00 - [facility] Vital Signs Vital Name Observation Time Observation Value Comments Source HEIGHT 2020-09-19 09:05:00 154.9 cm WEIGHT 2020-09-19 09:05:00 75.615 kg Systolic blood 2023-02-20 02:31:00 163 mm[Hg] Univer sity [facility] Diastolic blood 2023-02-20 02:31:00 70 mm[Hg] Unive [facility] Heart rate 2023-02-20 02:31:00 94 /min [facility] Respiratory rate 2023-02-20 02:31:00 22 /min [facility] Oxygen saturation in 2023-02-20 02:31:00 96 /min [facility] blood by [facility] Pulse oximetry Branch Body temperature 2023-02-19 20:52:00 37.11 [place] [facility] Body height 2023-02-19 20:52:00 154.9 cm [facility] Body weight 2023-02-19 20:52:00 76.658 kg [facility] BMI 2023-02-19 20:52:00 31.93 kg/m2 Universi [facility] height 2022-11-15 15:20:00 61 [in_i] [facility] weight 2022-11-15 15:20:00 175.3 [lb_av] [facility] temperature 2022-11-15 15:20:00 96.8 [degF] [facility] bmi 2022-11-15 15:20:00 33.12 kg/m2 [facility] oximetry 2022-11-15 15:20:00 95 % [facility] 2022-11-15 15:20:00 17 /min Comm on [facility] blood pressure 2022-11-15 15:20:00 138 mm[Hg] [facility] - systolic [facility] blood pressure 2022-11-15 15:20:00 78 mm[Hg] [facility] - diastolic [facility] height 2022-10-19 15:20:00 61 [in_i] [facility] 15:20:00 174.0 [lb_av] [facility] temperature 2022-10-19 15:20:00 97.4 [degF] Common S pirit [facility] bmi 2022-10-19 15:20:00 32.87 kg/m2 [facility] 2022-10-19 15:20:00 97 % [facility] rate 2022-10-19 15:20:00 18 /min Comm on [facility] blood pressure 2022-10-19 15:20:00 138 mm[Hg] Common [facility] - systolic [facility] blood pressure 2022-10-19 15:20:00 70 mm[Hg] [facility] - diastolic [facility] height 2022-08-06 16:40:00 61 [in_i] Common S pirit [facility] weight 2022-08-06 16:40:00 167 [lb_av] Common S [facility]irit [facility] temperature 2022-08-06 16:40:00 97.1 [degF] Common S [facility] bmi 2022-08-06 16:40:00 31.55 kg/m2 Common S [facility] oximetry 2022-08-06 16:40:00 98 % Common S pirit [facility] respiratory rate 2022-08-06 16:40:00 18 /min Comm on [facility] blood pressure 2022-08-06 16:40:00 148 mm[Hg] Common [facility] - systolic [facility] blood pressure 2022-08-06 16:40:00 78 mm[Hg] [facility] - [facility] height 2022-07-05 16:40:00 61 [in_i] Common S [facility] weight 2022-07-05 16:40:00 169.0 [lb_av] Common [facility] temperature 2022-07-05 16:40:00 98.0 [degF] Common S [facility] bmi 2022-07-05 16:40:00 31.93 kg/m2 Common S [facility] oximetry 2022-07-05 16:40:00 96 % Common S [facility] respiratory rate 2022-07-05 16:40:00 17 /min Comm on [facility] blood pressure 2022-07-05 16:40:00 137 mm[Hg] [facility] - [facility] blood pressure 2022-07-05 16:40:00 70 mm[Hg] [facility] - [facility] height 2022-04-23 11:20:00 61 [in_i] Common S [facility] weight 2022-04-23 11:20:00 165.3 [lb_av] Common [facility] temperature 2022-04-23 11:20:00 97.3 [degF] Common [facility] bmi 2022-04-23 11:20:00 31.23 kg/m2 Common [facility] oximetry 2022-04-23 11:20:00 96 % [facility] respiratory rate 2022-04-23 11:20:00 17 /min Comm on [facility] blood pressure 2022-04-23 11:20:00 138 mm[Hg] Common [facility] - systolic [facility] blood pressure 2022-04-23 11:20:00 77 mm[Hg] Common [facility] - diastolic [facility] height 2022-01-04 13:50:00 61 [in_i] Common [facility] weight 2022-01-04 13:50:00 166.1 [lb_av] [facility] temperature 2022-01-04 13:50:00 97.5 [degF] Common [facility] bmi 2022-01-04 13:50:00 31.38 kg/m2 [facility] oximetry 2022-01-04 13:50:00 97 % [facility] respiratory rate 2022-01-04 13:50:00 16 /min Comm on [facility] blood pressure 2022-01-04 13:50:00 142 mm[Hg] Common [facility] - systolic [facility] blood pressure 2022-01-04 13:50:00 75 mm[Hg] Common [facility] - diastolic [facility] height 2022-01-04 14:00:00 61 [in_i] Common [facility] weight 2022-01-04 14:00:00 166.1 [lb_av] [facility] temperature 2022-01-04 14:00:00 97.5 [degF] [facility] bmi 2022-01-04 14:00:00 31.38 kg/m2 Common [facility] oximetry 2022-01-04 14:00:00 97 % Common S pirit - [facility] respiratory rate 2022-01-04 14:00:00 16 /min Comm on [facility] blood pressure 2022-01-04 14:00:00 142 mm[Hg] [facility] blood pressure 2022-01-04 14:00:00 75 mm[Hg] [facility] height 2021-09-28 09:30:00 61 [in_i] [facility] 2021-09-28 09:30:00 162.3 [lb_av] [facility] temperature 2021-09-28 09:30:00 97.5 [degF] [facility] bmi 2021-09-28 09:30:00 30.66 kg/m2 [facility] S [facility] oximetry 2021-09-28 09:30:00 97 % [facility] respiratory rate 2021-09-28 09:30:00 16 /min Comm on [facility] blood pressure 2021-09-28 09:30:00 152 mm[Hg] [facility] blood pressure 2021-09-28 09:30:00 72 mm[Hg] [facility] height 2021-08-25 16:00:00 61 [in_i] [facility] weight 2021-08-25 16:00:00 167 [lb_av] Common [facility] temperature 2021-08-25 16:00:00 97.7 [degF] Common [facility] bmi 2021-08-25 16:00:00 31.55 kg/m2 [facility] oximetry 2021-08-25 16:00:00 96 % [facility] blood pressure 2021-08-25 16:00:00 140 mm[Hg] [facility] blood pressure 2021-08-25 16:00:00 78 mm[Hg] Common [facility] - diastolic [facility] height 2021-07-26 09:40:00 61 [in_i] Common S pirit [facility] weight 2021-07-26 09:40:00 164.4 [lb_av] [facility] temperature 2021-07-26 09:40:00 97.4 [degF] Common S [facility] bmi 2021-07-26 09:40:00 31.06 kg/m2 [facility] 2021-07-26 09:40:00 97 % [facility] respiratory rate 2021-07-26 09:40:00 17 /min Comm on [facility] blood pressure 2021-07-26 09:40:00 139 mm[Hg] Common [facility] - systolic [facility] blood pressure 2021-07-26 09:40:00 72 mm[Hg] Common [facility] - diastolic [facility] height 2021-06-28 08:50:00 61 [in_i] Common [facility] weight 2021-06-28 08:50:00 159.1 [lb_av] [facility] temperature 2021-06-28 08:50:00 97.2 [degF] Common [facility] bmi 2021-06-28 08:50:00 30.06 kg/m2 [facility] 2021-06-28 08:50:00 98 % Common S [facility] respiratory rate 2021-06-28 08:50:00 18 /min Comm on [facility] blood pressure 2021-06-28 08:50:00 158 mm[Hg] Common [facility] - systolic [facility] blood pressure 2021-06-28 08:50:00 75 mm[Hg] Common [facility] - diastolic [facility] Systolic blood 2021-06-20 20:23:00 148 mm[Hg] Univer [facility]ity of pressure [facility] Diastolic blood 2021-06-20 20:23:00 66 mm[Hg] Unive rsity of pressure [facility] Heart rate 2021-06-20 20:23:00 76 /min [facility] Body height 2021-06-20 20:23:00 154.9 cm [facility] Body weight 2021-06-20 20:23:00 74.844 kg [facility] BMI 2021-06-20 20:23:00 31.18 kg/m2 [facility] Systolic blood 2021-06-18 16:05:00 184 mm[Hg] Univer [facility]ity of pressure [facility] Diastolic blood 2021-06-18 16:05:00 60 mm[Hg] Unive rsity of pressure [facility] Heart rate 2021-06-18 15:10:00 77 /min [facility] Body temperature 2021-06-18 15:10:00 37.44 [place] [facility] Respiratory rate 2021-06-18 15:10:00 20 /min [facility] Body height 2021-06-18 15:10:00 154.9 cm [facility] Body weight 2021-06-18 15:10:00 74.844 kg [facility] BMI 2021-06-18 15:10:00 31.18 kg/m2 [facility] Oxygen saturation in 2021-06-18 15:10:00 98 /min [facility] of Arterial blood by [facility] Pulse oximetry Branch Systolic blood 2021-06-18 16:05:00 184 mm[Hg] Univer sity of pressure [facility] Diastolic blood 2021-06-18 16:05:00 60 mm[Hg] Unive rsity of pressure [facility] Heart rate 2021-06-18 15:10:00 77 /min [facility] Body temperature 2021-06-18 15:10:00 37.44 [place] Univ ersity of [facility] Respiratory rate 2021-06-18 15:10:00 20 /min Univ ersity of [facility] Body height 2021-06-18 15:10:00 154.9 cm [facility] Body weight 2021-06-18 15:10:00 74.844 kg [facility] BMI 2021-06-18 15:10:00 31.18 kg/m2 [facility] Oxygen saturation in 2021-06-18 15:10:00 98 /min [facility] Arterial blood by [facility] Pulse oximetry Branch HEIGHT 2020-10-03 11:00:00 [...] Hospital Diastolic blood 2020-10-03 11:00:00 71 mm[Hg] [facility] Heart rate 2020-10-03 11:00:00 78 /min [facility] Body temperature 2020-10-03 11:00:00 37 [place] [facility] Respiratory rate 2020-10-03 11:00:00 18 /min [facility] Body height 2020-10-03 11:00:00 154.9 cm [facility] Body weight 2020-10-03 11:00:00 75.297 kg [facility] BMI 2020-10-03 11:00:00 31.37 kg/m2 [facility] Oxygen saturation in 2020-10-03 11:00:00 98 /min room air [facility] Arterial blood by Medical Ce nter Pulse oximetry Procedures Procedure Date / Time Performing Clinician Source Performed EKG-12 LEAD 2023-02-20 01:48:08 Alden Isaacs o f [facility] URINALYSIS 2023-02-20 00:24:00 Jayes, Aurelio [facility] LIPASE 2023-02-19 22:43:00 Alden Isaacs [facility] TROPONIN I 2023-02-19 22:43:00 Alden Isaacs [facility] COMP. METABOLIC PANEL 2023-02-19 22:43:00 Alden Isaacs [facility] ([id number]) Medical Branch CBC WITH DIFF 2023-02-19 22:43:00 Alden Isaacs [facility] N-TERMINAL PRO-BNP 2023-02-19 22:43:00 Alden Isaacs [facility] NOTICE OF PRIVACY 2023-02-19 22:08:23 Doctor Unassigned, No [facility] PRACTICES Name [facility] ASSIGNMENT OF BENEFITS 2023-02-19 22:07:28 Doctor Unassigned, No [facility] CONSENT/REFUSAL FOR 2023-02-19 20:48:43 Doctor Unassigned, No [facility] DIAGNOSIS AND TREATMENT Name Medical Branch REFERRAL- 2021-04-06 05:01:00 Doctor Unassigned, No [facility] REQUEST/RESPONSE Name [facility] Branch POCT-GLUCOSE METER 2020-09-20 11:36:00 Juan Gallardo [facility] POCT-GLUCOSE METER 2020-09-20 07:33:00 PaulinaJuan [facility] CBC W/PLT COUNT & AUTO 2020-09-20 00:18:00 Vanessa Jasmine [facility] DIFFERENTIAL Center BASIC METABOLIC PANEL 2020-09-20 00:18:00 AronVanessa [facility] (7) Center MAGNESIUM 2020-09-20 00:18:00 [facility] 2020-09-20 00:18[facility]00 [facility] CALCIUM, IONIZED 2020-09-20 00:18:00 [facility] TISSUE EXAM 2020-09-19 14:54:00 Juan Gallardo [facility] POCT-ACT 2020-09-19 14:15:00 Juan Gallardo [facility] POCT-ACT 2020-09-19 14:03:00 Juan Gallardo [facility] ENDARTERECTOMY,CAROTID 2020-09-19 12:52:00 Juan Gallardo [facility] PROTHROMBIN TIME/INR 2020-09-19 10:22:00 Judah Jasminejudson [facility] APTT 2020-09-19 10:22:00 MitaliJudahnoemy [facility] POCT-GLUCOSE METER 2020-09-19 09:06:00 Juan Gallardo [facility] CBC W/PLT COUNT & AUTO 2020-09-13 14:52:00 Juan Gallardo [facility] DIFFERENTIAL [facility] BASIC METABOLIC PANEL 2020-09-13 14:52:00 Juan Gallardo [facility] (7) [facility] PROTHROMBIN TIME/INR 2020-09-13 14:52:00 Juan Gallardo [facility] ABORH, MANUAL 2020-09-13 14:52:00 Juan Gallarod [facility] ECG 12-LEAD 2020-09-13 14:37:40 Unknown, Hl7 Doctor [facility] Plan of Care Planned Activity Planned Date Details Comments Source Future Scheduled 2023-06-14 Influenza Vaccine (#1) [facility] 00:[facility]00 [code = Influenza Medical Ce nter Vaccine (#1)] Future Scheduled 2023-06-[address] [facility]00 2) [[facility] (1 of 2)] Future Scheduled [...] breast Medical C enter (procedure) [code = 533611295] Future Scheduled 1951 CT Colonography (combo) [facility] 00:00:00 [code = CT Colonography [facility] (combo)] Future Scheduled 1951 Screening for malignant [facility] 00:00:00 neoplasm of colon Medical Ce nter (procedure) [code = 990358019] Future Scheduled 1951 Screening for malignant [facility] Test 00:00:00 neoplasm of colon Medical Ce nter (procedure) [code = 930547094] Future Scheduled 1951 DXA SCAN [code = DXA [facility] 00:00:00 SCAN] [facility] Future Scheduled 1951 Screening for malignant [facility] 00:00:00 neoplasm of colon Medical Ce nter (procedure) [code = 709417807] Future Scheduled 1951 Screening for malignant [facility] 00:00:00 neoplasm of colon Medical Ce nter (procedure) [code = 560522275] Future Scheduled 1951 Sigmoidoscopy [code = [facility]] [facility] Future Scheduled 1951 Screening for malignant [facility] 00:00:00 neoplasm of breast Medical C enter (procedure) [code = 226160744] Future Scheduled 1951 Screening for malignant [facility] 00:00:00 neoplasm of colon Medical Ce nter (procedure) [code = 631560357] Future Scheduled 1951 Screening for malignant [facility] 00:00:00 neoplasm of breast Medical C enter (procedure) [code = 002700213] Future Scheduled 1951 CT Colonography (combo) [facility] 00:00:00 [code = CT Colonography [facility] (combo)] Future Scheduled 1951 Screening for malignant [facility] 00:00:00 neoplasm of colon Medical Ce nter (procedure) [code = 951024564] Future Scheduled 1951 Screening for malignant [facility] 00:00:00 neoplasm of colon Medical Ce nter (procedure) [code = 917668650] Future Scheduled 1951 DXA SCAN [code = DXA [facility] 00:00:00 SCAN] [facility] Future Scheduled 1951 Screening for malignant [facility] 00:00:00 neoplasm of colon Medical Ce nter (procedure) [code = 549714539] Future Scheduled 1951 Screening for malignant [facility] 00:00:00 neoplasm of colon Medical Ce nter (procedure) [code = 636025521] Future Scheduled 1951 Sigmoidoscopy [code = [facility]oscopy] [facility] Future Scheduled 1951 Screening for malignant [facility] 00:00:00 neoplasm of breast Medical C enter (procedure) [code = 694936643] Future Scheduled 1951 CT Colonography (combo) [facility] 00:00:00 [code = CT Colonography [facility] (combo)] Future Scheduled 1951 Screening for malignant [facility] 00:00:00 neoplasm of colon Medical Ce nter (procedure) [code = 066266440] Future Scheduled 1951 Screening for malignant [facility] 00:00:00 neoplasm of colon Medical Ce nter (procedure) [code = 798341050] Future Scheduled 1951 DXA SCAN [code = DXA [facility] 00:00:00 SCAN] [facility] Future Scheduled 1951 Screening for malignant [facility] 00:00:00 neoplasm of colon Medical Ce nter (procedure) [code = 274456220] Future Scheduled 1951 Screening for malignant [facility] 00:00:00 neoplasm of colon Medical Ce nter (procedure) [code = 715735932] Future Scheduled 1951 Sigmoidoscopy [facility]code = [facility] Scre[facility] for malignant [facility] 00:00:00 neoplasm of breast Medical C enter (procedure) [code = 722700376] Future Scheduled 1951 CT Colonography (combo) [facility] 00:00:00 [code = CT Colonography [facility] (combo)] Future Scheduled 1951 Screening for malignant [facility] 00:00:00 neoplasm of colon Medical Ce nter (procedure) [code = 191383160] Future Scheduled 1951 Screening for malignant [facility] 00:00:00 neoplasm of colon Medical Ce nter (procedure) [code = 910209357] Future Scheduled 1951 DXA SCAN [code = DXA [facility] 00:00:00 SCAN] [facility] Future Scheduled 1951 Screening for malignant [facility] 00:00:00 neoplasm of colon Medical Ce nter (procedure) [code = 634429553] Future Scheduled 1951 Screening for malignant [facility] 00:00:00 neoplasm of colon Medical Ce nter (procedure) [code = 411334455] Future Scheduled 1951 Sigmoidoscopy [code = [facility] 00:[facility] Sigmoidoscopy] [facility] r Future Scheduled 1951 Screening for malignant [facility] 00:00:00 neoplasm of breast Medical C enter (procedure) [code = 236081750] Future Scheduled 1951 CT Colonography (combo) [facility] 00:00:00 [code = CT Colonography [facility] (combo)] Future Scheduled 1951 Screening for malignant [facility] 00:00:00 neoplasm of colon Medical Ce nter (procedure) [code = 317774747] Future Scheduled 1951 Screening for malignant [facility] 00:00:00 neoplasm of colon Medical Ce nter (procedure) [code = 808620762] Future Scheduled 1951 DXA SCAN [code = DXA [facility] 00:00:00 SCAN] [facility] [place] Future Scheduled 1951 Screening for malignant [facility] 00:00:00 neoplasm of colon Medical Ce nter (procedure) [code = 130363574] Future Scheduled 1951 Screening for malignant [facility] 00:00:00 neoplasm of colon Medical Ce nter (procedure) [code = 958805296] Future Scheduled 1951 Sigmoidoscopy [code = [facility] 00:[facility]] [facility] Screening for malignant [facility] 00:00:00 neoplasm of breast Medical C enter (procedure) [code = 992506275] Future Scheduled 1951 CT Colonography (combo) [facility] 00:00:00 [code = CT Colonography [facility] (combo)] Future Scheduled 1951 Screening for malignant [facility] 00:00:00 neoplasm of colon Medical Ce nter (procedure) [code = 229824661] Future Scheduled 1951 Screening for malignant [facility] 00:00:00 neoplasm of colon Medical Ce nter (procedure) [code = 634927264] Future Scheduled 1951 DXA SCAN [code = DXA [facility] 00:00:00 SCAN] [facility] Future Scheduled 1951 Screening for malignant [facility] 00:00:00 neoplasm of colon Medical Ce nter (procedure) [code = 417832493] Future Scheduled 1951 Screening for malignant [facility] 00:00:00 neoplasm of colon Medical Ce nter (procedure) [code = 920322049] Future Scheduled 1951 Sigmoidoscopy [code = [facility] 00:[facility]] [facility] Future Scheduled 1951 Screening for malignant [facility] 00:00:00 neoplasm of breast Medical C enter (procedure) [code = 707390663] Future Scheduled 1951 CT Colonography (combo) [facility] 00:00:00 [code = CT Colonography [facility] (combo)] Future Scheduled 1951 Screening for malignant [facility] 00:00:00 neoplasm of colon Medical Ce nter (procedure) [code = 452397650] Future Scheduled 1951 Screening for malignant [facility] 00:00:00 neoplasm of colon Medical Ce nter (procedure) [code = 912195594] Future Scheduled 1951 DXA SCAN [code = DXA [facility] 00:00:00 SCAN] [facility] Future Scheduled 1951 Screening for malignant [facility] 00:00:00 neoplasm of colon Medical Ce nter (procedure) [code = 534278285] Future Scheduled 1951 Screening for malignant [facility] 00:00:00 neoplasm of colon Medical Ce nter (procedure) [code = 577623800] Future Scheduled 1951 Sigmoidoscopy [code = [facility] Screening for malignant [facility] 00:00:00 neoplasm of breast Medical C enter (procedure) [code = 452412798] Future Scheduled 1951 Screening for malignant [facility] Test 00:00:00 neoplasm of colon Medical Ce nter (procedure) [code = 802575361] Encounters Start End Encounter Admission Attending Care Care Encounter Source Date/Time Date/Time Type Type Clinicians Facility Department ID 2023-05-22 Outpatient Lao, [facility]MLC [facility] [id number] Common 13:41:00 Carmine 34470 [facility] 2023-05-16 Outpatient Lao, STLMLC [facility] [id number] Common 07:59:01 Carmine [id number] [facility] 2022-11-14 Outpatient Lao, STLMLC [facility] [id number] Common 13:33:00 Carmine 28162 [facility] 2022-08-02 Outpatient Lao, STLMLC [facility] [id number] Common 11:32:02 Carmine 45416 [facility] 2022-04-23 Outpatient Lao, STLMLC [facility] [id number] Common 11:04:01 Carmine [facility] 2022-01-03 Outpatient Lao, STLMLC [facility] [id number] Common 10:05:03 Carmine [facility] 2022-01-01 Outpatient Lao, STLMLC [facility] [id number] Common 13:11:04 Carmine [facility] 2021-11-08 Outpatient Lao, STLMLC [facility] [id number] Common 14:15:27 Carmine 36070 [facility] 2021-11-08 Outpatient Lao, STLMLC [facility] [id number] Common 14:10:48 Carmine 39325 [facility] 2021-11-08 Outpatient Lao, STLMLC [facility] [id number] Common 14:04:07 Carmine 61181 [facility] 2021-11-08 Outpatient STLMLC [facility] [id number] Common 13:49:07 19309 [facility] 2021-08-14 Emergency [facility] [id number] Univers 20:32:56 [facility] 2021 Inpatient [facility] Surgery [id number] SLE 18:22:15 JUAN 2023-02-19 2023-02-19 [id number] Univers 15:55:00 21:46:[address] [facility] 2023-02-19 2023-02-19 [id number] Univers 15:55:00 21:46:00 Alden BOWERS [id number] i ty [facility] [id number] [facility] [id number] [facility] 084 Branch 2022-11-16 2022-11-16 (TEL) STLMLC STLMLC [id number] Co mmon 00:00:00 00:00:00 [facility] 2022-11-15 2022-11-15 OFFICE STLMLC STLMLC [id number] Co mmon 00:00:00 00:00:00 VISIT [facility] LEVEL 4 [facility] 2022-11-15 2022-11-15 (TEL) STLMLC STLMLC [id number] Co mmon 00:00:00 00:00:00 [facility] 2022-10-19 2022-10-19 OFFICE STLMLC STLMLC [id number] Co mmon 00:00:00 00:00:00 VISIT EST Spir it PT LEVEL 3 - [facility] 2022-10-17 2022-10-17 (TEL) STLMLC STLMLC [id number] Co mmon 00:00:00 00:00:00 [facility] 2022-09-04 2022-09-04 (TEL) STLMLC STLMLC [id number] Co mmon 00:00:00 00:00:00 [facility] 2022-09-04 2022-09-04 (TEL) STLMLC STLMLC [id number] Co mmon 00:00:00 00:00:00 [facility] 2022-08-20 2022-08-20 (TEL) STLMLC STLMLC [id number] Co mmon 00:00:00 00:00:00 [facility] 2022-08-15 2022-08-15 (TEL) STLMLC STLMLC [id number] Co mmon 00:00:00 00:00:00 [facility] 2022-08-06 2022-08-06 OFFICE STLMLC STLMLC [id number] Co mmon 00:00:00 00:00:00 VISIT [facility] PT - CHI LEVEL 4 [facility] 2022-08-06 2022-08-06 (TEL) STLMLC STLMLC [id number] Co mmon 00:00:00 00:00:00 [facility] 2022-07-17 2022-07-17 (TEL) STLMLC STLMLC [id number] Co mmon 00:00:00 00:00:00 [facility] 2022-07-10 2022-07-10 (TEL) STLMLC STLMLC [id number] Co mmon 00:00:00 00:00:00 [facility] 2022-07-05 2022-07-05 (TEL) STLMLC STLMLC [id number] Co mmon 00:00:00 00:00:00 [facility] 2022-07-05 2022-07-05 (HOSP F/U) STLMLC STLMLC [id number] Common 00:00:00 00:00:00 [facility] 2022-07-02 2022-07-02 (TEL) STLMLC STLMLC [id number] Co mmon 00:00:00 00:00:00 [facility] 2022-04-23 2022-04-23 OFFICE STLMLC STLMLC [id number] Co mmon 00:00:00 00:00:00 VISIT [facility] PT - CHI LEVEL [address] [place] [address] 2022-04-20 2022-04-20 (TEL) STLMLC STLMLC [id number] Co mmon 00:00:00 00:00:00 [facility] 2022-01-04 2022-01-04 OFFICE STLMLC STLMLC [id number] Co mmon 00:00:00 00:00:00 VISIT [facility] PT - CHI LEVEL 4 [facility] 2022-01-04 2022-01-04 SUB ANNUAL STLMLC STLMLC [id number] Common 00:00:00 00:00:00 MCR [facility] VISIT [facility] 2021-12-21 2021-12-21 (TEL) STLMLC STLMLC [id number] Co mmon 00:00:00 00:00:00 [facility] 2021-11-20 2021-11-20 (TEL) STLMLC STLMLC [id number] Co mmon 00:00:00 00:00:00 [facility] 2021-10-30 2021-10-30 (TEL) STLMLC STLMLC [id number] Co mmon 00:00:00 00:00:00 [facility] 2021-09-28 2021-09-28 OFFICE STLMLC STLMLC [id number] Co mmon 00:00:00 00:00:00 VISIT [facility] PT - CHI LEVEL 4 [facility] 2021-08-31 2021-08-31 (TEL) STLMLC STLMLC [id number] Co mmon 00:00:00 00:00:00 [facility] 2021-08-25 2021-08-25 OFFICE STLMLC STLMLC [id number] Co mmon 00:00:00 00:00:00 VISIT EST Spir it PT LEVEL 3 - [facility] 2021-08-22 2021-08-22 (TEL) STLMLC STLMLC [id number] Co mmon 00:00:00 00:00:00 [facility] 2021-08-07 2021-08-07 (TEL) STLMLC STLMLC [id number] Co mmon 00:00:00 00:00:00 [facility] 2021-07-26 2021-07-26 OFFICE STLMLC STLMLC [id number] Co mmon 00:00:00 00:00:00 VISIT [facility] PT - CHI LEVEL 4 [facility] 2021-07-23 2021-07-23 (TEL) STLMLC STLMLC [id number] Co mmon 00:00:00 00:00:00 [facility] 2021 2021 (TEL) STLMLC STLMLC [id number] Co mmon 00:00:00 00:00:00 [facility] 2021-06-28 2021-06-28 (TEL) STLMLC STLMLC [id number] Co mmon 00:00:00 00:00:00 [facility] 2021-06-28 2021-06-28 OFFICE STLMLC STLMLC [id number] Co mmon 00:00:00 00:00:00 VISIT NEW Spir it PT LEVEL 4 - [facility] 2021-06-26 2021-06-26 Outpatient Thomas [facility] [id number] Univers 13:45:00 13:45:00 UTE schulz [facility] 2021-06-20 2021-06-20 Office Rad[facility] [id number] Univers 15:14:01 15:29:01 Visit [facility] [id number] it [place] of [place] 4.2.7.2.686 Lorenzo as Yuri?Blea [phone] Id jose felix 198 [facility] Office [facility] 2021-06-20 2021-06-20 [facility] [id number] Univers 15:00:00 15:00:00 CINTHIA ity of [facility] 2021-06-20 2021-06-20 [facility] [id number] Univers 00:00:00 00:00:00 [facility] 350.1.13.10 it [place] 4.2.7.2.686 Lorenzo as Yuri?Blea [phone] Id jose felix [address] [facility] 2021-06-19 2021-06-19 [facility] [id number] Univers 00:00:00 00:00:00 [facility] [employer] 350.1.13.10 it y of [place] 4.2.7.2.686 Lorenzo as Yuri?Blea [phone] Id jose felix [address] [place] [address] 2021-06-18 2021-06-18 Emergency [facility] [id number] Univers 10:12:00 11:17:00 Carol Ann Bowers 350.1.13.10 ity of [place] 4.2.7.2.686 [facility] [phone] [address] 2021-06-18 2021-06-18 Emergency [facility] [id number] Univers 10:12:00 11:17:00 Carol Ann Bowers 350.1.13.10 ity of [place] 4.2.7.2.686 [facility] [phone] [address] 2021-04-26 2021-04-26 Letter ONEAL Barber [id number] [id number] Univers 00:00:00 00:00:00 (Out) Charlette GABRIEL 350.1.13.10 i ty of [facility] 4.2.7.2.686 Lorenzo as [phone] [facility] [address] 2021-04-06 2021-04-06 Orders Doctor NO 1.2.840.114 [id number] Univers 00:00:00 00:00:00 Only Unassigned, HARVEY 350.1.13.10 ity of [place] [facility] 4.2.7.2.686 Lorenzo as [phone] [facility] [address] 2020-10-03 2020-10-04 Office Paulina [facility] [id number] 10:58:57 06:55:34 Visit [facility] 2020-10-03 2020-10-03 [facility] [id number] [facility] 00:00:00 00:00:00 [facility] 2020-09-19 2020-09-20 Hospital [facility] [id number] 08:52:00 16:45:00 Encounter [facility] 2020-09-19 2020-09-19 [facility] [id number] 13:06:00 15:11:00 Event Maribell Yepez [facility] 2020-09-19 2020-09-19 [facility] [id number] 11:00:00 14:00:00 [facility] 2020-09-16 2020-09-16 Abstract [facility] [id number] 00:00:00 00:00:00 [facility] 2020-09-13 2020-09-13 Office CHIRAG Gallardo [facility] [id number] 14:23:27 14:53:27 Visit [facility] 2020-09-13 2020-09-13 Outpatient HUSSEIN CL[facility]KE [facility] [id number] SLE 14:23:27 14:23:27 [facility] 2020-09-13 2020-09-13 Orders [facility] [id number] 00:00:00 00:00:00 Only [facility] 2019-12-02 2019-12-02 [facility] [phone] Village 07:29:00 07:29:[address] _[facility] [address] Family Practic e Results Test Description Test Time Test Comments Results Result Comments Source TROPONIN I 2023-02-19 23:50:59 Test Item Value Reference Range Interpretation Comme nts TROPONIN I (test code = 4603605243) 0.002 ng/mL <=0.034 GABRIELA (test code = [...] biotin. Lab Interpretation (test code = Normal 38669-9) [facility] [id number] 23:47:38 Test Item Value Reference Range Interpretation Comments NT-proBNP (test code = 81 pg/mL <=125 [id number]) GABRIELA (test code = GABRIELA) Biotin has been reported to cause a negative bias, interpret results relative to patient's use of biotin. Lab Interpretation (test Normal code = 39337-4) [facility] METABOLIC PANEL (93187)2023-02-19 23:41:37 Test Item Value Reference Range Interpretation Comments NA (test code = 137 mmol/L 135-145 6668325013) K (test code = 4.3 mmol/L 3.5-5.0 9899153733) CL (test code = 100 mmol/L 98-108 6092091399) CO2 TOTAL (test code = 27 mmol/L 23-31 7861615541) AGAP (test code = 10 2-16 6739856743) BUN (test code = 14 mg/dL 7-23 2655379005) GLUCOSE (test code = 196 mg/dL 70-110 H 3045675745) CREATININE (test code = 0.65 mg/dL 0.50-1.04 3841799558) TOTAL BILI (test code = 1.0 mg/dL 0.1-1.6 5847748719) CALCIUM (test code = 8.9 mg/dL 8.6-10.6 8146187689) T PROTEIN (test code = 7.9 g/dL 6.3-8.2 4717253018) ALBUMIN (test code = 3.8 g/dL 3.5-5.0 6706791857) ALK PHOS (test code = 89 U/L 34-122 9880675367) ALTv (test code = 33 U/L 5-35 1742-6) AST(SGOT) (test code = 39 U/L 13-40 7529778162) eGFR (test code = 89.9 mL/min/1.73m2 7818203471) GABRIELA (test code = GABRIELA) Association of [...] tests). Lab Interpretation Abnormal (test code = 49481-9) [facility]2023-05-09 23:41:37 Test Item Value Reference Range Interpretation Comments LIPASE (test code = 6861491423) 111 U/L 0-220 Lab Interpretation (test code = Normal 71818-8) [facility] WITH [id number] 23:32:16 Test Item Value Reference Range Interpretation [...] RDW-SD (test code = 48.6 fL 39.0-49.9 05339-0) RDW-CV (test code = 12.9 % 12.0-15.5 788-0) PLT (test code = 236 See_Comment [Automated 777-3) message] The sy stem which generated this result transmitted reference range : 166 - 358 10*3/ ?L. The reference r rita was not used to interpret this result as normal/abnormal . MPV (test code = 10.9 fL 9.5-12.9 36737-7) NRBC/100 WBC (test 0.0 See_Comment [Automat ed code = 6248173436) message] The system which generated this result transmitted reference range : 0.0 - 10.0 /100 WBCs. The refer ence range was not u sed to interpret th is result as normal/abnormal . NRBC x10^3 (test code See_Comment [Auto mated = 2315740215) message] The s ystem which generated this result transmitted reference range : 10*3/?L. The reference range was not used to interpret this result as normal/abnormal . GRAN MAT (NEUT) % 66.4 % (test code = 770-8) IMM GRAN % (test code 0.50 % = 5704502568) LYMPH % (test code = 22.9 % 736-9) MONO % (test code = 7.9 % 5905-5) EOS % (test code = 1.6 % 713-8) BASO % (test code = 0.7 % 706-2) GRAN MAT x10^3(ANC) 8.03 10*3/uL 1.88-7.09 H (test code = 3546851362) IMM GRAN x10^3 (test 0.06 10*3/uL 0.00-0.06 code = 7560652184) LYMPH x10^3 (test code 2.76 10*3/uL 1.32-3.29 = 731-0) MONO x10^3 (test code 0.95 10*3/uL 0.33-0.92 H = 742-7) EOS x10^3 (test code = 0.19 10*3/uL 0.03-0.39 711-2) BASO x10^3 (test code 0.08 10*3/uL 0.01-0.07 H = 704-7) Lab Interpretation Abnormal (test code = 59079-9) [facility] [id number] 00:00:00 Test Item Value Reference Range Interpretation Comments % SATURATION (test 5 % (calc) See_Comment L [Automat ed message] code = 2502-3) The system [facility] generated this result transmit zoë reference range : 16-45 % (calc). The reference range was not used to interpret this result as normal/abnormal . FERRITIN (test code 4 ng/mL See_Comment L [Automa zoë message] = 3526-4) The system [facility] h generated this result transmit [...] d message] code = 2498-4) The system [facility] generated this result transmit zoë [...] this result transmit zoë reference range : 5224-1635 cells /uL. The reference r rita was not used to interpret this result as normal/abnormal . BASOPHILS (test code 0.9 % N = 706-2) EOSINOPHILS (test 6.0 % N code = 713-8) HEMATOCRIT (test 26.5 % See_Comment L [Automated message] code = 4544-3) The system [facility] generated this result transmit zoë reference range : 35.0-45.0 %. Th e reference range was not used to interpret this result as normal/abnormal . HEMOGLOBIN (test 7.6 g/dL See_Comment L [Automated message] code = 718-7) The system [facility] generated this result transmit zoë reference range : 11.7-15.5 g/dL. The reference range was not used to interpret this result as normal/abnormal . LYMPHOCYTES (test 25.4 % N code = 736-9) MCH (test code = 23.2 pg See_Comment L [Automated message] 785-6) The system [facility] generated this result transmit zoë reference range : 27.0-33.0 pg. T he reference range was not used to interpret this result as normal/abnormal . MCHC (test code = 28.7 g/dL See_Comment L [Automate d message] 786-4) The system [facility] generated this result transmit zoë reference range : 32.0-36.0 g/dL. The reference range was not used to interpret this result as normal/abnormal . MCV (test code = 81.0 fL See_Comment N [Automated message] 787-2) The system [facility] generated this result transmit zoë reference range : 80.0-100.0 fL. The reference range was not used to interpret this result as normal/abnormal . MONOCYTES (test code 8.6 % N = 5905-5) MPV (test code = 9.6 fL See_Comment N [Automated message] 776-5) The system [facility] generated this result transmit zoë reference range : 7.5-12.5 fL. Th e reference range was not used to interpret this result as normal/abnormal . NEUTROPHILS (test 59.1 % N code = 770-8) PLATELET COUNT (test 321 See_Comment N [Autom ated message] code = 777-3) Thousand/uL The system [facility] generated this result transmit zoë reference range : 140-400 Thousan d/uL. The reference r rita was not used to interpret this result as normal/abnormal . RDW (test code = 14.7 % See_Comment N [Automated message] 788-0) The system [facility] generated this result transmit zoë reference [...] interpret this result as normal/abnormal . PATHOLOGY [id number] 00:00:00PATHOLOGISTCONSULT, SPECIMEN A 2021-07-22 00:00:00A COMMENTA DIAGNOSISA MICRO DESCRIPTIONA SOURCELipid Panel With LDL/HDL [id number] 00:00:00 Test Item Value Reference Range Interpretation Comments Cholesterol, Total 188 mg/dL See_Comment [Automat ed message] (test code = 2093-3) The sys tem which generated this result transmitted ref erence range: 100-199 mg/dL. The reference r rita was not used to interpret this result as normal/abnor mal. HDL Cholesterol (test 52 mg/dL See_Comment [Auto mated message] code = 2085-9) The system [employer] generated this result transmitted ref erence range: >39 mg/d L. The reference range was not used to int erpret this result as normal/abnormal . Triglycerides (test 85 mg/dL See_Comment [Automa zoë message] code = 2571-8) The system [employer] generated this result transmitted ref erence range: 0-149 mg /dL. The reference r rita was not used to interpret this result as normal/abnor mal. Microalbumin/Creat Ratio, Random [id number] 00:00:00 Test Item Value Reference Range Interpretation Comments Creatinine, Urine 103.2 mg/dL Not Estab. mg/dL (test code = 2161-8) Alb/Creat Ratio 28 mg/g creat See_Comment [Automated message] (test code = The system [employer] 46414-6) generated this result transmitted ref erence range: 0-29 mg/ g creat. The refe rence range was not u sed to interpret this result as normal/abnor mal. Albumin, Urine 29.2 ug/mL Not Estab. ug/mL (test code = 47836-4) Hemoglobin [id number] 00:00:00 Test Item Value Reference Range Interpretation Comments Hemoglobin A1c (test 7.9 % See_Comment H [Autom ated message] The code = 4548-4) system which generated this result tra nsmitted reference range : 4.8-5.6 %. The referenc e range was not used to interpret this result as normal/abnormal . Comp. Metabolic Panel (14) ([facility])2021-07-19 00:00:00 Test Item Value Reference Range Interpretation Comments A/G Ratio (test code 0.9 1.2-2.2 L = 1759-0) Albumin (test code = 3.6 g/dL See_Comment L [Autom ated message] 1751-7) The system [employer] generated this result transmit zoë reference range : 3.8-4.8 g/dL. T he reference range was not used to interpret this result as normal/abnormal . Alkaline Phosphatase 106 IU/L See_Comment [Autom ated message] (test code = 6768-6) The sys tem which generated this result transmit zoë reference range : 44-121 IU/L. Th e reference range was not used to interpret this result as normal/abnormal . ALT (SGPT) (test 12 IU/L See_Comment [Automated message] code = 1742-6) The system [employer] generated this result transmit zoë reference range : 0-32 IU/L. The reference range was not used to interpret this result as normal/abnormal . AST (SGOT) (test 12 IU/L See_Comment [Automated message] code = 1920-8) The system [employer] generated this result transmit zoë reference range [...] mg/dL See_Comment [Automated message] 3094-0) The system [employer] generated this result transmit zoë reference range : 8-27 mg/dL. The reference range was not used to interpret this result as normal/abnormal . BUN/Creatinine Ratio 21 12-28 (test code = 3097-3) Calcium (test code = 8.6 mg/dL See_Comment L [Autom ated message] 49067-3) The system [employer] generated this result transmit zoë reference range [...] [Automa zoë message] = 2074-0) The system [employer] generated this result transmit zoë reference range : 96-106 mmol/L. The reference range was not used to interpret this result as normal/abnormal . Creatinine (test 0.57 mg/dL See_Comment [Automated message] code = 2160-0) The system [facility] generated this result transmit zoë reference range : 0.57-1.00 mg/dL . The reference range was not used to interpret this result as normal/abnormal . eGFR If Africn Am 109 See_Comment [Automate d message] (test code = mL/min/1.73 The system [employer] 21804-7) generated this result transmit zoë reference range : >59 mL/min/1.73. Th e reference range was not used to interpret this result as normal/abnormal . eGFR If NonAfricn Am 95 mL/min/1.73 See_Comment [Aut omated message] (test code = The system [employer] 25358-4) generated this result transmit zoë reference range : >59 mL/min/1.73. Th e reference range was not used to interpret this result as normal/abnormal . Globulin, Total 3.9 g/dL See_Comment [Automated message] (test code = The system [facility] 05503-4) generated this result transmit zoë reference range : 1.5-4.5 g/dL. T he reference range was not used to interpret this result as normal/abnormal . Glucose (test code = 162 mg/dL See_Comment H [Autom ated message] 1975-7) The system [facility] generated this result transmit zoë reference range : 65-99 mg/dL. Th e reference range was not used to interpret this result as normal/abnormal . Potassium (test code 4.2 mmol/L See_Comment [Autom ated message] = 2823-3) The system [facility] generated this result transmit zoë reference range : 3.5-5.2 mmol/L. The reference range was not used to interpret this result as normal/abnormal . Protein, Total (test 7.5 g/dL See_Comment [Autom ated message] code = 2885-2) The system [facility] generated this result transmit zoë reference range : 6.0-8.5 g/dL. T he reference range was not used to interpret this result as normal/abnormal . Sodium (test code = 140 mmol/L See_Comment [Automa zoë message] 2951-2) The system [facility] generated this result transmit zoë reference range : 134-144 mmol/L. The reference range was not used to interpret this result as normal/abnormal . Uric Acid, [id number] 00:00:00 Test Item Value Reference Range Interpretation Comments Uric Acid (test 3.8 mg/dL See_Comment [Automated message] The code = 3084-1) system which generated this result tra nsmitted reference range : 3.0-7.2 mg/dL. The refe rence range was not u sed to interpret this result as normal/abnormal . CBC With Differential/[id number] 00:00:00 Test Item Value Reference Range Interpretation [...] normal/abnormal . Hematology Comments: (test code = 51979-9) Hemoglobin (test code 7.9 g/dL See_Comment L [Auto mated = 718-7) message] The sy stem which generated this result transmitted reference range : 11.1-15.9 g/dL. The reference range was not used to interpret this result as normal/abnormal . Immature Cells (test code = UNLOINC) Immature Grans (Abs) 0.0 x10E3/uL See_Comment [Autom ated (test code = 01548-2) messag e] The system which generated this result transmitted reference range : 0.0-0.1 x10E3/u L. The reference r rita was not used to interpret this result as normal/abnormal . Immature Granulocytes 0 % Not Estab. % (test code = 73900-7) Lymphs (test code = 27 % Not [...] as normal/abnormal . NRBC (test code = 28730-0) Platelets (test code 319 x10E3/uL See_Comment [Autom [...] result as normal/abnormal . TSH reflex to [id number] 00:00:00 Test Item Value Reference Range Interpretation Comments TSH (test code = 1.260 uIU/mL See_Comment [Automated message] The 81847-2) system which ge nerated this result tra nsmitted reference range : 0.450-4.500 uIU /mL. The reference range was not used to interpr et this result as normal/abnormal . Tissue [id number] 18:50:00 Test Item Value Reference Range Interpretation Comments Case Report (test code Surgical Pathology = 104) Report Case: [id number] Authorizing Provider: Juan Gallardo, Collected: 09/19/2020 02:54 PM Ordering Location: [facility] Received: 09/19/2020 03:32 PM PERIOPERATIVE SERVICES Pathologist: Jarad Menchaca MD Specimen: Plaque, LEFT CAROTID ARTERY PLAQUE DIAGNOSIS (test code = o3qvoIWpKGRqs8mgRDFisFG 3220) uZzEwMzNcZnRuYmpcdWMxIH tccnRmMVxlcGljOTIwMFxhb kJyPMSqzNBzH5KkknkkQNno WF3hNB7frDnqmDUvrJWgKFW bQmOuf7yjm349zKUgp8xjDV OZvqkixWh5gOkuI30ab9F3W ayfJ10ofNMiJFoyzIFkphea czIwIEFSVEVSWSwgTEVGVCB DQVJPVElELCBFTkRBUlRFUk VMQW7UQByszTXoDISXQTQDC wtKEKJFKMRTI6NTTSZYJ4BU ZzSKUJXTDTHpGPQubn03RCY 0EdBcr7T3FEK4AFXyHDRdq0 lcZGVmbGFuZzEwMzNcZnRuY sskmGYcIOSiIpMfx9gxs351 kGQol3qoUNHoClH6vNYzRRJ spSIzZ193ZPRmFCfhz6mzd3 FmOYXmqNNko5S4XCIDcvwhp Bw2cRneC92pv1G9RzauZ1jh BXIsZMYaE9FhVP7pFGRjUtn 3RCD4XOA2THNgHQTuO9PgPB 6zJOCsaQKwQCu9n6ahoCemR KWkLRD6u7xpWKvbsnOjLQ1x wb5igJq3g4bbnzQxTJRnHYH eaFOQWXGiB8BgrWjvEi1oyZ p0bWyiYftkMEE5Urz1CY9ll t37nux3oYgfWKCpoqxrFtR0 QKzxEFSpilxyWKh9YIiyJQD qoRQ0BYFqgHGlO0DhXHQaSN 4fwcf9WCA0WLphVFEsUrE7V DXgwBNnWAJmtThmCMxbw296 OBQ4TjRtQO2tZ4Ucp2G0aB3 maXRcZGVmdGFiNzIwXGZvcm 2mpJKdQCpxe1DkJUW4zmO7l XNpuQMaNWLbNxW3MOhbPT6m rk62GTExUHM3od6xbQVtkBf ywfXebYRxOZfyA0NkTTShe6 28UUEbX6YmIVMao2E9eaAtN vAjDOQifPV3myM7DIWuUF1f tfwar2arTWutTHewLLMtqzT 0taG4EKWrxUNaN8BkxQ9lNO BgEH6bzueqe5aqVUQ4KQuyK KPzLPY3PkFuFMLiw9Sqgwe5 YqQwk7PiqLYuYYmcU03ev80 0MYZvsmXeU3qdrLGabuzvtE NvbhpbWKqtreQ7OAYiPKhyo mfaUVLmKKqzD0hfYuPmMSNl fQfeVWarm2DsQQCeEHXcReZ vyUNmDKFrYov7SDLyzZTiQK RmTpGcP5pquzftTfUJSHHrr 9cgE2lvhJGFrWExO7AuYAoy onRbCKrfIMjaWRVaZZF5SL5 6HkheBJUnjd94 CPT Code(s) (test code l6gdnMZrRLOggQI9EgCeNRD = 3357) vb7ofl8AqsJOmvNXrMKqeqD ZzahHvqi62wNH6yN12KM7oE QHtUqV5OBLprpZ3Bmg8ZGAb KHBwkRTvJ579l2fov4ilsvZ qsJD9hGdbEOTtVITeFZeeIH VrJfAdTRhfZFY2QIh1DdUrP HBhcn0= CLINICAL HISTORY (test i8vdnCVoQEMusTD4ZsInZBR code = 3356) oh7jcn8GqgQCoiTHlGTmhkU DcooBcic74xWW1oJ07SC1eP CNsJpE6ALTfbkT5Xuo1QDYy KDMfaNVpB315s0spr8mjxvV mwYB1fAzhWGIsMAHmUCimQK ObGcErWIAim8OwTDwrA44rv 2lzOiAgbGVmdCBjYXJvdGlk XDI5XT5gz7dbPYOekg2= SPECIMEN SOURCE (test q1zuqSRcUYHqlIO5VjCqLEA code = 3377) al9ohp7NdgUYxhUZwQQeraM FjggDktg16nQK7iX52EE9dD HFsSwB2TJNpupZ5Sep5HAXd BQWjfJNoJ878v1wpv6qyvzE zaIA4hSzoHILjEAYiSZfdSG ZzMjAgUGxhcXVlIFxwYXJ9 GROSS DESCRIPTION d9cfqMUfRGSuhYX0VwTrXYO (test code = 3366) qs8fdx3PzuMGpbJLmHEjkxO QobbUotm23hIF4cQ52WZ7wB BQkJwG2QZYwxyX8Umx5ONLs MOXwnMTqK676c5ccj9eahwP xkQX1kZckBBNkIBAjFTtaFD NvVeJrFgZdKSl8FEPhPdMay 7nqjYFqENqsZWW7tGQzRVAm WQSsRSJoPJ99N4CmsyPlHBt xELYfQJWakD1tED82iVUael IrcgEhDkQiUUV2WMtlwWXva CBjYXJvdGlkIGFydGVyeSBw kXRohWIiWUhsGXAzHb7zYVj jHh3sAAVtCAjzeiBbdSzxyj LdioTkgCNgzBRoTyC7ETuto 3cgcGxhcXVlIHRoYXQgZGlz qSyywRUtP9JjW9bvzCSbrGg cuq3uMLqyAVHqBFDomBBaKT pgUJOdusctsBp0HZEyO0Vay 89qVBL8csKfNIFtSGtyCHE9 BDxue7cxlV3zn8pqdjTlwCT pX3PtN7zuaCEiUKGjkhIcko 4gVGhlIHNwZWNpbWVuIGlzI WP5Ie8quIHbSWQvhiYgnMJj JD06tNXpyLzcKo3tbZ63oK1 iWSPiH4ZtZ7etqDInvTxngx SxtbEJUW9dIStMZ4NvFIydF XJ9 MICROSCOPIC s9heyKOoIYFnlMZ8WiKyLUO DESCRIPTION (test code jz8nfj0PvvDTdvRWrLRagfF = 3371) FcntEdfv62rLG1bA88UB1wK MSaMoP0PCVnusL6Jwe6FGRd EVHhbCNtU094s4ksz1feruS ghLA4yQduJTPqYXNnZHorBE JaAoKvLMZkSc2ulTAqUNVcu n0= [facility] [id number] 18:50:00 Test Item Value Reference Range Interpretation Comments Case Report (test code Surgical Pathology = 104) Report Case: [id number] Authorizing Provider: Juan Gallardo, Collected: 09/19/2020 02:54 PM Ordering Location: [facility] Received: 09/19/2020 03:32 PM PERIOPERATIVE SERVICES Pathologist: Jarad Menchaca MD Specimen: Plaque, LEFT CAROTID ARTERY PLAQUE DIAGNOSIS (test code = q3tccOVkABPub2iaOXOarWJ 3220) uZzEwMzNcZnRuYmpcdWMxIH tccnRmMVxlcGljOTIwMFxhb kWlSAGdkDHgO6BsyfqmZErn HI6tJU9ujUpvzZWaeGVmMCH aDjEoh8sae890gDZch7edEL XDdbcxeFh8fGygI36cp3O1N hxbL43ivOHhWEfchSMwcdnq czIwIEFSVEVSWSwgTEVGVCB DQVJPVElELCBFTkRBUlRFUk HHOB6JJFqlePLgWYLWAZFRB ohZDGEDQDEJA5AQJALXC2AP RsKSPRTYQXAlQAYrnf41INP 6LnVlh1T5IUE0PEFbAINys5 lcZGVmbGFuZzEwMzNcZnRuY nsxxBCrLXScPgNuj5rso019 qLQvo8okSZAuDgH8bBLhGOK qnMHhU411VRJySLxtl7wls2 KvIFPobOJxw7Z9HBJTlktyx Pr9nWucM08za3Z1RnhrA0bb CSKuEZMxU9WiKO0mYAFoKhh 6ZTW2DDV2QPVhEFCmP7VvLQ 1vVWFpeGSfCTr7d9fxhXnpM ETbNGY9a5wpYGsyweVeNL5m gi9lhCa5n8ntacOjDTUrBYX agMEFHOEwE1HaeMewIr6grM b4iGqrOfawNPB8Ihk4MB4wc h87ata8xYmpUJFpummdMhM5 SFrrLDQqdbldEFo9GWvkQLQ etXO5MOWvsPNmJ2BvKBObIU 2fvxq7SAF1UDdjICBjUrD5Q GCtvNRiBHVkcYvnUGhmz171 XZJ6GmHqPO6lR8Mqs8D5sT7 maXRcZGVmdGFiNzIwXGZvcm 0ugFByGXjri1McTEE2wdR0u LLpzGDpSWGiIuK6FAlzEM8w bv08JIQjGFM7vl7vzTTrgBe qphNwtRFeHOlzM0HuSQLtf8 70ACGhB8IaRLSmx6S2jdHcR jKzTTOlsIO8inH1UGPsCE1b eyapx0upYOwrPEhcQOYnuhT 2dqZ1CULkoDBlC9NptN8lNG HaBL1yrydse3awFIW3FCfsE JZaEYZ6GrYuJUVnn0Tthbd4 FbWfs3RkcHEfVNqnP73bt82 3BAQzqlInI6qwvBNwfecvpI EfqlcbUKoksvO3XUNsPSxse adnXZQgUAfaS7aoViVmIEFl cIwuPVflg3BiBPXnFARvXqG yfQMaIBFtMdi2BRGlpMMjPY JlXyQvD3gpfxqlOjSZFZEsb 4vdL4uqgOHVoQCgW6ZkLXsc neLlAVtwYYnnHTQeXSU8AT6 3OmvaMVPszp64 CPT Code(s) (test code k6jpxSGwQYFcwVM0ObCbEFB = 3357) dx4tau7ChpHIyxKOyFGztzI QujlWsov93bIZ0oY90DU1eB FPaPgW6CCDpvwC7Dzv8YBJl LCWvtNUbF715j3sil7rtdmN juXQ8wEjxOEFsWXBnOExlSO CtDcFbYAllLME2NIh1CiSrF HBhcn0= CLINICAL HISTORY (test v4dlrGAvIZHnpOP8UbKxCZO code = 3356) ft0dib2EfjCPlrAFlJDoveP YnpyMvvf75gEO6jP76CY0xT FHfVmK1JNDbwyB9Pnu0YBYv XLLpfVCrD570v7wmo0auyhL apNF7uSgdWAHsXSBrYEbtNK WxVeCrOOWam8PySMcpP68nu 2lzOiAgbGVmdCBjYXJvdGlk PGH4PW0zn1oiAWHqlf1= SPECIMEN SOURCE (test b8nbgURyDSTsqEF5XvCaFQB code = 3377) zg8jgj0GwxBXulKLlBKkjjG UjrhVxfy78kWH7kF29SU1gN WBiVdN7QBIkwxQ5Pli7EUCa LKWeuFVkO510o1grw8ldthA ikAO2hAxfFROwRWFmLYpdRC ZzMjAgUGxhcXVlIFxwYXJ9 GROSS DESCRIPTION u2neqGNyQEHkfOP6NvBsOIQ (test code = 3366) ru5ncn1LvaKXtlBHoNRtzlF EuwmFgtd16zGZ6iU31HP4dV GPrOgT9TOEhawC9Xak8XECs CSHedLSdR886j6jyr6atnhR bhCY8pZazCJZxHCAqCRyeIE AnReZtJaPoXOq6JNRmDtKvn 2rfkNLzXZzdMES6nWYkYDRc OXXpJMIxQO11C2HvdcWnRXl xURUcBMJkmJ7fYN93jJFuox CdaxQxXxHeDFT4IGtvqBXqn CBjYXJvdGlkIGFydGVyeSBw fPVwpWQbVEnoBWExAa3xWZy hXd1lVEQzWLdvykJedMhmsg BccmCwxCYwmLFjJoH1SZenc 3cgcGxhcXVlIHRoYXQgZGlz dYfuhONwX4EsV5psrNOeoCi poe4mTFmlOPBtNSJlrMPlYW daWMQwbwrtvRm0GKYxC3Ggo 99vFMI8pgPiGKVeQHmhNBG0 HYkue3jxhT5it2ivzjNzxXP jJ1JmX7gqjLRmQQOmbhPilm 4gVGhlIHNwZWNpbWVuIGlzI NS0Fg5byRHhKVEkuoRkzUIa HG88kZQlnVhzOu2dwG44vA2 xMTZnB6NuN3enfZUpsVjekp GdemHNUK7hXLxLE7PdERjgA XJ9 MICROSCOPIC b7pvkDUaCMOjvJO7WwFaAHC DESCRIPTION (test code pn1snw2RinCYjqCNvHIivxF = 3371) AgsnCwnk50eCE7dY09OC6bI TLqAwC9ZLWzdnH6Rgu6UPCd XTHioRZsV406d4zhw7dtpjZ cbLV9tHrpCSEqKOYiTJrzNG TnZcQmQMXgMl9bpFEqPXNyc n0= [facility] [id number] 18:50:00Surgical Pathology Report Case: [id number] Authorizing Provider: Juan Gallardo, Collected: 09/19/2020 02:54 PM Ordering Location: [facility] Received: 09/19/2020 03:32 PM PERIOPERATIVE SERVICES Pathologist: Jarad Menchaca MD Specimen: Plaque, LEFT CAROTID ARTERY PLAQUE ARTERY, LEFT CAROTID, ENDARTERECTOMY:CALCIFIC ATHEROSCLEROTIC PLAQUE Signing Pathologist Direct Phone Line: [phone] diagnosis: left carotid stenosisPlaque Received fresh labeled with the patient's name, accession number and "plaque, left carotid artery plaque" is a 2.0 x 2.0 cm irregular fragment of yellow plaque that displays calcification. The specimen is serially sectioned to reveal a yellow homogeneous calcified center.The specimen is submitted in its entirety following decalcification in A1. JG/pl PerformedPOC-Glucose [id number] 11:48:00 Test Item Value Reference Range Interpretation Comments POC-Glucose Meter (test 208 mg/dL 70-110 H : TE STED AT [facility] code = 1538) [address] [place] [address], 770 30: Dialysis Patient Care Technician/Techni ciara ID = [id number] for BERT CORONADO Lab Interpretation (test Abnormal code = 58216-8) [facility]-Glucose [id number] 11:48:00 Test Item Value Reference Range Interpretation Comments POC-Glucose Meter (test 208 mg/dL 70-110 H : TE STED AT [facility] code = 1538) [address] [place] [address], [facility] 30: Dialysis Patient Care Technician/Techni ciara ID = [id number] for BERT CORONADO Lab Interpretation (test Abnormal code = 42338-0) [facility]-GLUCOSE [id number] 11:48:00 Test Item Value Reference Range Interpretation Comments POC-GLUCOSE METER 208 mg/dL 70-110 H : TESTED A T [facility] 6720 (BEAKER) (test code = [facility], 1538) [address]: Dialysis Patient Care Technician/Techni ciara ID = [id number] for BERT ROUSSEAU POCT-GLUCOSE [id number] 08:17:00 Test Item Value Reference Range Interpretation Comments POC-GLUCOSE METER 183 mg/dL 70-110 H : TESTED A T [facility] 6720 (BEAKER) (test code = [facility], 1538) [address]: Dialysis Patient Care Technician/Techni ciara ID = [id number] for JULIETA VERGARA BERT POC ACTIVATED CLOTTING [id number] 06:23:00 Test Item Value Reference Range Interpretation Comments Activated Clotting Time 241 sec : 74 -137 seconds, (test code = 441) Baseline: TESTED AT [address], [facility] 30: Dialysis Patient Care Technician/Techni ciara ID = [id number] for CAST RO, NAT [facility] ACTIVATED CLOTTING [id number] 06:23:00 Test Item Value Reference Range Interpretation Comments Activated Clotting Time 241 sec : 74 -137 seconds, (test code = 441) Baseline: TESTED AT [address], [facility] 30: Dialysis Patient Care Technician/Techni ciara ID = [id number] for CAST RO, NAT [facility][id number] 06:23:00 Test Item Value Reference Range Interpretation Comments ACTIVATED CLOTTING TIME 241 sec : 74 -137 seconds, (BEAKER) (test code = Baseli ne: TESTED AT 441) [facility] 67[address] [facility], [facility] 30: Dialysis Patient Care Technician/Techni caira ID = [id number] for CA JOSELIN GAOENCIO [id number] 06:23:00 Test Item Value Reference Range Interpretation Comments ACTIVATED CLOTTING TIME 224 sec : 74 -137 seconds, (BEAKER) (test code = Baseli ne: TESTED AT 441) [facility] [address] [facility], [facility] 30: Dialysis Patient Care Technician/Techni ciara ID = [id number] for CA STRO, NAT CBC with platelet count + automated [id number] 01:08:00 Test Item Value Reference Range Interpretation Comments WBC (test code = 6690-2) 12.8 See_Comment H [A utomated message] The system [employer] generated this result transmitted ref erence range: 3.5 - 10 .5 K/L. The refe rence range was not u sed to interpret this result as normal/abnor mal. RBC (test code = 789-8) 3.64 See_Comment L [Au tomated message] The system [employer] generated this result transmitted ref erence range: 3.93 - 5 .22 M/L. The refe rence range was not u sed to interpret this result as normal/abnor mal. MCHC (test code = 786-4) 30.3 See_Comment L [A utomated message] The system [employer] generated this result transmitted ref erence range: [...] See_Comment [Aut omated message] 527-3) The system [employer] generated this result transmitted ref erence range: 150 - 45 0 K/CU MM. The referen ce range was not u sed to interpret this result as normal/abnor mal. MPV (test code = 10.5 fL 9.4-12.3 94891-2) nRBC (test code = 413) 0 See_Comment [Aut omated message] The system [employer] generated this result transmitted ref erence range: [...] H [Aut omated message] 670) The system [employer] generated this result transmitted ref erence range: 1.56 - 6 .13 K/L. The refe rence range was not u sed to interpret this result as normal/abnor mal. # Lymphs (test code = 1.06 See_Comment L [Auto mated message] 414) The system [employer] generated this result transmitted ref erence range: 1.18 - 3 .74 K/L. The refe rence range was not u sed to interpret this result as normal/abnor mal. # Monos (test code = 0.20 See_Comment L [Autom ated message] 415) The system [employer] generated this result transmitted ref erence range: 0.24 - 0 .36 K/L. The refe rence range was not u sed to interpret this result as normal/abnor mal. # Eos (test code = 416) 0.00 See_Comment L [Au tomated message] The system [employer] generated this result transmitted ref erence range: 0.04 - 0 .36 K/L. The refe rence range was not u sed to interpret this result as normal/abnor mal. # Baso (test code = 417) 0.03 See_Comment [A utomated message] The system [employer] generated this result transmitted ref erence range: 0.01 - 0 .08 K/L. The refe rence range was not u sed to interpret this result as normal/abnor mal. Immature 1 % 0-1 Granulocytes-Relative (test code = 2801) Lab Interpretation (test Abnormal code = 49159-9) [facility] with platelet count + automated [id number] 01:08:00 Test Item Value Reference Range Interpretation Comments WBC (test code = 6690-2) 12.8 See_Comment H [A utomated message] The system [employer] generated this result transmitted ref erence range: 3.5 - 10 .5 K/L. The refe rence range was not u sed to interpret this result as normal/abnor mal. RBC (test code = 789-8) 3.64 See_Comment L [Au tomated message] The system [employer] generated this result transmitted ref erence range: 3.93 - 5 .22 M/L. The refe rence range was not u sed to interpret this result as normal/abnor mal. MCHC (test code = 786-4) 30.3 See_Comment L [A utomated message] The system [employer] generated this result transmitted ref erence range: [...] See_Comment [Aut omated message] 777-3) The system [employer] generated this result transmitted ref erence range: 150 - 45 0 K/CU MM. The referen ce range was not u sed to interpret this result as normal/abnor mal. MPV (test code = 10.5 fL 9.4-12.3 84761-2) nRBC (test code = 413) 0 See_Comment [Aut omated message] The system [employer] generated this result transmitted ref erence range: [...] H [Aut omated message] 670) The system [employer] generated this result transmitted ref erence range: 1.56 - 6 .13 K/L. The refe rence range was not u sed to interpret this result as normal/abnor mal. # Lymphs (test code = 1.06 See_Comment L [Auto mated message] 414) The system [employer] generated this result transmitted ref erence range: 1.18 - 3 .74 K/L. The refe rence range was not u sed to interpret this result as normal/abnor mal. # Monos (test code = 0.20 See_Comment L [Autom ated message] 415) The system [employer] generated this result transmitted ref erence range: 0.24 - 0 .36 K/L. The refe rence range was not u sed to interpret this result as normal/abnor mal. # Eos (test code = 416) 0.00 See_Comment L [Au tomated message] The system [employer] generated this result transmitted ref erence range: 0.04 - 0 .36 K/L. The refe rence range was not u sed to interpret this result as normal/abnor mal. # Baso (test code = 417) 0.03 See_Comment [A utomated message] The system [employer] generated this result transmitted ref erence range: 0.01 - 0 .08 K/L. The refe rence range was not u sed to interpret this result as normal/abnor mal. Immature 1 % 0-1 Granulocytes-Relative (test code = 2801) Lab Interpretation (test Abnormal code = 84517-4) [facility] W/PLT COUNT & AUTO [id number] 01:08:00 Test Item Value Reference Range Interpretation [...] (BEAKER) (test code = 2801) Basic Metabolic [id number] 00:56:00 Test Item Value Reference Range Interpretation Comments Sodium (test code = 134 meq/L 136-145 L 2951-2) Potassium (test code = 3.9 meq/L 3.5-5.1 2823-3) Chloride (test code = 104 meq/L 98-107 2075-0) CO2 (test code = 23 meq/L 2028-06) BUN (test code = 10 mg/dL 7- 3094-0) Creatinine (test code 0.76 mg/dL 0.57-1.25 = 2160-0) Glucose (test code = 332 mg/dL 70-105 H 2345-7) Calcium (test code = 8.2 mg/dL 8.4-10.2 L 29741-0) EGFR (test code = 75 mL/min/1.73 sq m [place] [address]-4) NOT ACCURATE CREATININE CLEARANCE IN PREDICTING GLOMERULAR FILTRATION RATE . ESTIMATED GFR I S NOT APPLICABLE FOR DIALYSIS PATIENTS. GABRIELA (test code = GABRIELA) Dialysis Patient Care Technician ID - PIAYA L Lab Interpretation Abnormal (test code = 56658-9) [facility]00 Test Item Value Reference Range Interpretation Comments Magnesium (test code = 1.7 mg/dL 1.6-2.6 90002-5) GABRIELA (test code = GABRIELA) Dialysis Patient Care Technician ID - PIAYA L Lab Interpretation (test Normal code = 65715-3) [facility] 00:56:00 Test Item Value Reference Range Interpretation Comments Phosphorus (test code = 3.7 mg/dL 2.3-4.7 2777-1) GABRIELA (test code = GABRIELA) Dialysis Patient Care Technician ID - PIAYA L Lab Interpretation (test Normal code = 84091-7) [facility] [id number] 00:56:00 Test Item Value Reference Range Interpretation [...] (test code = 8.2 mg/dL 8.4-10.2 L 66213-6) EGFR (test code = 75 mL/min/1.73 [place] [address]-5) NOT ACCURATE CREATININE CLEARANCE IN PREDICTING GLOMERULAR FILTRATION RATE . ESTIMATED GFR I S NOT APPLICABLE FOR DIALYSIS PATIENTS. GABRIELA (test code = GABRIELA) Dialysis Patient Care Technician ID - PIAYA L Lab Interpretation Abnormal (test code = 06200-1) [facility] 00:56:00 Test Item Value Reference Range Interpretation Comments Magnesium (test code = 1.7 mg/dL 1.6-2.6 73808-6) GABRIELA (test code = GABRIELA) Dialysis Patient Care Technician ID - PIAYA L Lab Interpretation (test Normal code = 31230-6) [facility] 00:56:00 Test Item Value Reference Range Interpretation Comments Phosphorus (test code = 3.7 mg/dL 2.3-4.7 2777-1) GABRIELA (test code = GABRIELA) Dialysis Patient Care Technician ID - PIAYA L Lab Interpretation (test Normal code = 65114-6) [facility]IC [id number] 00:56:00 Test Item Value Reference Range Interpretation [...] S NOT APPLICABLE FOR DIALYSIS PATIEN TS. Dialysis Patient Care Technician ID - FARHAD [id number] 00:56:00 Test Item Value Reference Range Interpretation Comments MAGNESIUM (BEAKER) (test code = 1.7 mg/dL 1.6-2.6 627) Dialysis Patient Care Technician ID - FARHAD [id number] 00:56:00 Test Item Value Reference Range Interpretation Comments PHOSPHORUS (BEAKER) (test code = 3.7 mg/dL 2.3-4.7 604) Dialysis Patient Care Technician ID - FARHAD LCalcium, [id number] 00:31:00 Test Item Value Reference Range Interpretation Comments Calcium, Ion (test code = 1993-3) 1.18 mmol/L 1.12-1.27 pH, Blood (test code = 57353-1) 7.39 [facility], [id number] 00:31:00 Test Item Value Reference Range Interpretation Comments Calcium, Ion (test code = 1993-) 1.18 mmol/L 1.12-1.27 pH, Blood (test code = 68054-6) 7.39 [facility]CALCIUM, [id number] 00:31:00 Test Item Value Reference Range Interpretation Comments CALCIUM IONIZED (BEAKER) (test 1.18 mmol/L 1.12-1.27 code = 698) PH, BLOOD (BEAKER) (test code = 7.39 1810) [id number] 10:46:00 Test Item Value Reference Range Interpretation Comments PTT (test code = 39993-2) 27.9 See_Comment [ Automated message] The system [employer] generated this result transmitted ref erence range: 22.5 - 3 6.0 seconds. The re ference range was not u sed to interpret this result as normal/abnor mal. Lab Interpretation (test Normal code = 24367-6) [facility]aPTT[facility] 10:46:00 Test Item Value Reference Range Interpretation Comments PTT (test code = 99395-1) 27.9 See_Comment [ Automated message] The system whic h generated this result transmitted ref erence range: 22.5 - 3 6.0 seconds. The re ference range was not u sed to interpret this result as normal/abnor mal. Lab Interpretation (test Normal code = 46284-3) [facility] HospitalAPTT2020-[facility] 10:46:00 Test Item Value Reference Range Interpretation Comments PARTIAL THROMBOPLASTIN TIME 27.9 seconds 22.5-36.0 (BEAKER) (test code = 760) Prothrombin time/[id number] 10:45:00 Test Item Value Reference Interpretation Comments [...] valves. Lab Interpretation Normal (test code = 16939-9) [facility] HospitalProthrombin time/[id number] 10:45:00 Test Item Value Reference Interpretation Comments [...] valves. Lab Interpretation Normal (test code = 77718-2) [facility] HospitalPROTHROMBIN TIME/[id number] 10:45:00 Test Item Value Reference Range Interpretation [...] 2.5-3.5 for patients wiht mechanical heart valves.POCT-GLUCOSE [id number] 09:19:00 Test Item Value Reference Range Interpretation Comments POC-GLUCOSE METER 187 mg/dL 70-110 H : TESTED A T [facility] 6720 (YECENIA) (test code = [place]ENDIRA [place], 1538) [address]: Dialysis Patient Care Technician/Techni ciara ID = [id number] for Jojo Rivers ECG 12 [id number] 12:51:19Interface, External Ris In - 09/14/2020 12:51 PM CSTVentricular Rate 65 BPMAtrial Rate 65 BPMP-R Interval 154 msQRS Duration 78 msQ-T Interval 442 msQTC Calculation(Bazett) 459 msP [place] 5 degreesR Axis77 degreesT [place] 66 degreesNormal sinus rhythmNonspecific T wave abnormalityProlonged QTWhen compared with ECG of 02-AUG-2019 06:01,Premature ventricular complexes are no longer PresentConfirmed by Daksha NICHOLE, MOLLY ([id number]) on 09/14/2020 12:51:17 [facility] [id number] 12:51:19Interface, External Ris In - 09/14/2020 12:51 PM CSTVentricular Rate 65 BPMAtrial Rate 65 BPMP-R Interval 154 msQRS Duration 78 msQ-T Interval 442 msQTC Calculation(Bazett) 459 msP [place] 5 degreesR Axis77 degreesT [place] 66 degreesNormal sinus rhythmNonspecific T wave abnormalityProlonged QTWhen compared with ECG of 02-AUG-2019 06:01,Premature ventricular complexes are no longer PresentConfirmed by Daksha NICHOLE, MOLLY ([id number]) on 09/14/2020 12:51:17 [facility] HospitalABORH, [id number] 16:42:00 Test Item Value Reference Range Interpretation Comments ABO Grouping (test code = 2588) A Rh Factor (test code = 2589) POS [facility], [id number] 16:42:00 Test Item Value Reference Range Interpretation Comments ABO Grouping (test code = 2588) A Rh Factor (test code = 2589) POS [facility] HospitalType [facility] screen, [id number] 16:36:00 Test Item Value Reference Range Interpretation Comments Ab Scrn (test code = 890-4) NEGATIVE echo2 [facility] HospitalType [facility] screen, [id number] 16:36:00 Test Item Value Reference Range Interpretation Comments Ab Scrn (test code = 890-4) NEGATIVE echo2 [facility]BASIC [facility]ABOLIC [id number] 15:32:00 Test Item Value Reference Range Interpretation [...] S NOT APPLICABLE FOR DIALYSIS PATIEN TS. Dialysis Patient Care Technician ID - ADMINPROTHROMBIN TIME/[id number] 15:29:00 Test Item Value Reference Range Interpretation [...] mechanical heart valves.CBC W/PLT COUNT & AUTO [id number] 15:17:00 Test Item Value Reference Range Interpretation [...] % 0-1 PERCENT (BEAKER) (test code = 2809) BASIC METABOLIC [id number] 06:24:00 Test Item Value Reference Range Interpretation [...] 0-0 (BEAKER) (test code = 413) POCT-GLUCOSE [id number] 21:22:00 Test Item Value Reference Range Interpretation Comments POC-GLUCOSE METER 138 mg/dL 70-110 H TESTED AT [place] [address] ([facility]) (test code = ERENDIRA [place] 1538) [address] POCT-GLUCOSE [id number] 17:38:00 Test Item Value Reference Range Interpretation Comments POC-GLUCOSE METER 131 mg/dL 70-110 H TESTED AT [place] [address] ([facility]) (test code = ERENDIRA Guzman [facility] 1538) [address] BASIC METABOLIC [id number] 06:07:00 Test Item Value Reference Range Interpretation [...] 1092) DATA TO CALCULA TE ESTIMATED GFR. [id number] 06:04:00 Test Item Value Reference Range Interpretation [...] H (BEAKER) (test code = 413) POCT-GLUCOSE [id number] 23:10:00 Test Item Value Reference Range Interpretation Comments POC-GLUCOSE METER 127 mg/dL 70-110 H TESTED AT [facility] 6720 (BEAKER) (test code = ERENDIRA [place] 1538) [address] POCT-GLUCOSE [id number] 12:36:00 Test Item Value Reference Range Interpretation Comments POC-GLUCOSE METER 157 mg/dL 70-110 H TESTED AT [place] [address] (BEAKER) (test code = ERENDIRA [place] 1538) [address] CBC (HEMOGRAM ONLY)2019-08-02 06:03:00 Test Item Value [...] (BEAKER) (test code = 413) BASIC METABOLIC [id number] 05:47:00 Test Item Value Reference Range Interpretation [...] 1092) DATA TO CALCULA TE ESTIMATED GFR. [id number] 05:46:00 Test Item Value Reference Range Interpretation Comments PHOSPHORUS (BEAKER) (test code = 2.5 mg/dL 2.3-4.7 604) [id number] 05:46:00 Test Item Value Reference Range Interpretation Comments MAGNESIUM (BEAKER) (test code = 2.1 mg/dL 1.6-2.6 627) POCT-GLUCOSE [id number] 20:47:00 Test Item Value Reference Range Interpretation Comments POC-GLUCOSE METER 164 mg/dL 70-110 H TESTED AT [place] [address] [facility] (test code = ERENDIRA Guzman [facility] 1538) [address] POCT-GLUCOSE [id number] 17:38:00 Test Item Value Reference Range Interpretation Comments POC-GLUCOSE METER 194 mg/dL 70-110 H TESTED AT [place] [address] ([facility]) (test code = ERENDIRA Guzman [facility] 1538) [address] POCT-GLUCOSE [id number] 07:51:00 Test Item Value Reference Range Interpretation Comments POC-GLUCOSE METER 157 mg/dL 70-110 H TESTED AT [place] [address] ([facility]) (test code = [facility] Thomas [facility] 1538) [address] HEMOGLOBIN [id number] 07:51:00 Test Item Value Reference Range Interpretation Comments HEMOGLOBIN A1C (BEAKER) (test code = 8.6 % 4.3-6.1 H 368) BASIC METABOLIC [id number] 06:11:00 Test Item Value Reference Range Interpretation [...] 1092) DATA TO CALCULA TE ESTIMATED GFR. [id number] 06:10:00 Test Item Value Reference Range Interpretation Comments PHOSPHORUS (BEAKER) (test code = 1.9 mg/dL 2.3-4.7 L 604) [id number] 06:10:00 Test Item Value Reference Range Interpretation [...] 0-0 (AKER) (test code = 413) POCT-GLUCOSE [id number] 22:07:00 Test Item Value Reference Range Interpretation Comments POC-GLUCOSE METER 175 mg/dL 70-110 H TESTED AT [place] [address] ([facility]) ([facility] = [facility] 1538) [address] POCT-GLUCOSE [id number] 18:30:00 Test Item Value Reference Range Interpretation Comments POC-GLUCOSE METER 225 mg/dL 70-110 H TESTED AT [place] [address] ([facility]) (test code = [facility] Thomas [facility] 1538) [address] POCT-GLUCOSE [id number] 12:17:00 Test Item Value Reference Range Interpretation Comments POC-GLUCOSE METER 170 mg/dL 70-110 H TESTED AT [place] [address] ([facility]) (test code = [facility] 1538) [address] POCT-GLUCOSE [id number] 08:20:00 Test Item Value Reference Range Interpretation Comments POC-GLUCOSE METER 161 mg/dL 70-110 H TESTED AT [place] [address] ([facility]) (test code = [facility] Thomas [facility] 1538) [address] BASIC METABOLIC [id number] 08:18:00 Test Item Value Reference Range Interpretation [...] 1092) DATA TO CALCULA TE ESTIMATED GFR. [id number] 08:15:00 Test Item Value Reference Range Interpretation Comments MAGNESIUM (BEAKER) 1.9 mg/dL 1.6-2.6 Specimen slightly (test code = 627) hemolyzed [id number] 08:15:00 Test Item Value Reference Range Interpretation Comments PHOSPHORUS (BEAKER) 2.3 mg/dL 2.3-4.7 Specimen slightly (test code = 604) hemolyzed RAD, CHEST, 1 VIEW, NON [id number] 07:56:00Reason for exam:->post-op cardiac surgeryShould this be [...] MDReport Verified Date/Time: 07/31/2019 07:56:15 Reading Location: [facility] Radiology Reading Room Electronically signed by: DIXON WILKERSON on 07/31 07:56 AMPT/[id number] 07:25:00 Test Item Value Reference Range Interpretation [...] 0-0 (BEAKER) (test code = 413) POCT-GLUCOSE [id number] 21:32:00 Test Item Value Reference Range Interpretation Comments POC-GLUCOSE METER 168 mg/dL 70-110 H TESTED AT [facility] 6720 ([facility]) (test code = ERENDIRA Guzman [place] 1538) [address] POCT-GLUCOSE [id number] 17:55:00 Test Item Value Reference Range Interpretation Comments POC-GLUCOSE METER 172 mg/dL 70-110 H TESTED AT [facility] 6720 ([facility]) (test [facility] = [facility] [place] [place] [facility]) [id number] POCT-GLUCOSE [id number] 15:34:00 Test Item Value Reference Range Interpretation Comments POC-GLUCOSE METER 152 mg/dL 70-110 H TESTED AT [place] [address] (BEAKER) (test code = ERENDIRA Guzman [facility] 1538) [id number] POCT-GLUCOSE [id number] 12:52:00 Test Item Value Reference Range Interpretation Comments POC-GLUCOSE METER 222 mg/dL 70-110 H TESTED AT [place] [address] (BEAKER) (test code = ERENDIRA Guzman [facility] 1538) [id number] POCT-GLUCOSE [id number] 07:19:00 Test Item Value Reference Range Interpretation Comments POC-GLUCOSE METER 185 mg/dL 70-110 H TESTED AT [place] [address] (BEAKER) (test code = ERENDIRA Guzman [facility] 1538) [id number] 06:16:00 Test Item Value Reference Range Interpretation Comments ACTIVATED CLOTTING TIME 109 sec Refe rence Range: 74-137 (BEAKER) (test code = second s, 441) Baseline/TESTED AT [address] [address] [id number] 06:16:00 Test Item Value Reference Range Interpretation Comments ACTIVATED CLOTTING TIME 543 sec Refe rence Range: 74-137 (BEAKER) (test code = second s, 441) Baseline/TESTED AT [address] [address] [id number] 06:16:00 Test Item Value Reference Range Interpretation Comments ACTIVATED CLOTTING TIME 510 sec Refe rence Range: 74-137 (BEAKER) (test code = second s, 441) Baseline/TESTED AT [address] [address] BASIC METABOLIC [id number] 06:04:00 Test Item Value Reference Range Interpretation [...] 1092) DATA TO CALCULA TE ESTIMATED GFR. [id number] 06:02:00 Test Item Value Reference Range Interpretation Comments PHOSPHORUS (BEAKER) (test code = 3.7 mg/dL 2.3-4.7 604) [id number] 06:02:00 Test Item Value Reference Range Interpretation Comments MAGNESIUM (BEAKER) (test code = 2.0 mg/dL 1.6-2.6 627) [id number] 05:57:00 Test Item Value Reference Range Interpretation [...] 2.5-3.5 for patients wiht mechanical heart valves.PROTHROMBIN [id number] 05:56:00 Test Item Value Reference Range Interpretation [...] 2.5-3.5 for patients wiht mechanical heart valves.CALCIUM, [id number] 05:55:00 Test Item Value Reference Range Interpretation Comments CALCIUM IONIZED (BEAKER) (test 1.17 mmol/L 1.12-1.27 code = 698) PH, BLOOD (BEAKER) (test code = 7.38 1810) CBC W/PLT COUNT & AUTO [id number] 05:55:00 Test Item Value Reference Range Interpretation [...] (BEAKER) (test code = 2801) OXYGEN SATURATION, [id number] 05:49:00 Test Item Value Reference Range Interpretation Comments O2 SATURATION (MEASURED) (BEAKER) 77.2 % (test code = 1455) RAD, CHEST, 1 VIEW, NON [id number] 05:35:00Reason for exam:->post-op cardiac surgeryShould this be [...] Signed: Hortencia Brand Verified Date/Time: 07/30/2019 05:35:16 [id number] 18:41:00 Test Item Value Reference Range Interpretation Comments POTASSIUM (BEAKER) (test code = 4.2 meq/L 3.5-5.1 379) PRN - repeat potassium levels every 1 hour until glucose level is less than 450 mg/dLPOCT-GLUCOSE [id number] 18:14:00 Test Item Value Reference Range Interpretation Comments POC-GLUCOSE METER 175 mg/dL 70-110 H TESTED AT [facility] 6720 (BEAKER) (test code = ERENDIRA [place]UNGUIA [place] 1538) [address] BLOOD GAS, [id number] 16:57:00 Test Item Value Reference Range Interpretation [...] (test code = 1819) 40.0 % HEMOGLOBIN [id number] 16:17:00 Test Item Value Reference Range Interpretation Comments HEMOGLOBIN A1C (BEAKER) (test code = 9.5 % 4.3-6.1 H 368) PLATELET AGGREGATION: FUNCTION [id number] 15:15:00 Test Item Value Reference Range Interpretation Comments [id number] Giovanni Tee M.D. (BEAKER) (test code = (electonic signature) 2345) PLATELET COUNT AGG 273 K/CU MM 150-450 [...] be falsely low with platelet counts<75,000/cu mm.POCT-GLUCOSE [id number] 15:07:00 Test Item Value Reference Range Interpretation Comments POC-GLUCOSE METER 125 mg/dL 70-110 H TESTED AT [facility] 6720 [facility] ([facility] = [facility] 1538) [address] POCT-GLUCOSE [id number] 14:26:00 Test Item Value Reference Range Interpretation Comments POC-GLUCOSE METER 85 mg/dL 70-110 TESTED AT [facility] 6720 (BEAKER) (test code = [facility] Thomas [facility] [address] 1538) POCT-GLUCOSE [id number] 14:14:00 Test Item Value Reference Range Interpretation Comments POC-GLUCOSE METER 88 mg/dL 70-110 TESTED AT [facility] 67 ([facility]) (test code = ERENDIRA Guzman [facility] [address] 1538) RAD, CHEST, 1 VIEW, NON [id number] 13:11:00Reason for exam:->Status post CV Surgery post [...] Verified Da te/Time: 07/29/2019 13:11:13 Reading Location: [facility] Reading Room -GLUCOSE [id number] 13:00:00 Test Item Value Reference Range Interpretation Comments POC-GLUCOSE METER 132 mg/dL 70-110 H TESTED AT [place] [address] ([facility]) (test code = ERENDIRA Guzman [facility] 1538) [address] BASIC METABOLIC [id number] 12:28:00 Test Item Value Reference Range Interpretation [...] 1092) DATA TO CALCULA TE ESTIMATED GFR. [id number] 12:27:00 Test Item Value Reference Range Interpretation Comments PHOSPHORUS (BEAKER) (test code = 2.3 mg/dL 2.3-4.7 604) [id number] 12:27:00 Test Item Value Reference Range Interpretation Comments MAGNESIUM (BEAKER) (test code = 2.6 mg/dL 1.6-2.6 627) [id number] 12:26:00 Test Item Value Reference Range Interpretation Comments PARTIAL THROMBOPLASTIN TIME 27.4 seconds 22.5-36.0 (BEAKER) (test code = 760) PROTHROMBIN [id number] 12:25:00 Test Item Value Reference Range Interpretation [...] for patients wiht mechanical heart valves.LACTIC ACID, [id number] 12:21:00 Test Item Value Reference Range Interpretation Comments LACTATE BLOOD ARTERIAL (2) 1.2 mmol/L 0.5-2.2 (BEAKER) (test code = 2874) CBC W/PLT COUNT & AUTO [id number] 12:08:00 Test Item Value Reference Range Interpretation [...] PERCENT (BEAKER) (test code = 2801) CALCIUM, [id number] 12:04:00 Test Item Value Reference Range Interpretation Comments CALCIUM IONIZED (BEAKER) (test 1.15 mmol/L 1.12-1.27 code = 698) PH, BLOOD (BEAKER) (test code = 7.44 1810) BLOOD GAS, [id number] 12:03:00 Test Item Value Reference Range Interpretation [...] code = 1819) 60.0 % OXYGEN SATURATION, [id number] 12:00:00 Test Item Value Reference Range Interpretation Comments O2 SATURATION (MEASURED) (BEAKER) 66.6 % (test code = 1455) For occult [id number] 11:53:00 Test Item Value Reference Range Interpretation Comments PHOSPHORUS (BEAKER) (test code = 2.9 mg/dL 2.3-4.7 604) CALCIUM, [id number] 10:32:00 Test Item Value Reference Range Interpretation Comments CALCIUM IONIZED (BEAKER) (test 1.03 mmol/L 1.12-1.27 L code = 698) PH, BLOOD (BEAKER) (test code = 7.33 1810) BLOOD GAS, [id number] 10:31:00 Test Item Value Reference Range Interpretation [...] code = 1819) 100.0 % SODIUM NA-STAT [id number] 10:31:00 Test Item Value Reference Range Interpretation Comments SODIUM (BEAKER) (test code = 381) 133 meq/L 135-148 L GLUCOSE-STAT [id number] 10:31:00 Test Item Value Reference Range Interpretation Comments GLUCOSE RANDOM (BEAKER) (test code 226 mg/dL 70-110 H = 652) HGB/HCT (H&H) - STAT [id number] 10:31:00 Test Item Value Reference Range Interpretation Comments HEMOGLOBIN (BEAKER) (test code = 8.0 g/dL 12.0-15.0 L 410) HEMATOCRIT (BEAKER) (test code = 24.0 % 36.0-45.0 L 411) POTASSIUM-STAT [id number] 10:30:00 Test Item Value Reference Range Interpretation Comments POTASSIUM (BEAKER) (test code = 4.2 meq/L 3.6-5.5 379) BLOOD GAS, [id number] 10:05:00 Test Item Value Reference Range Interpretation [...] code = 1819) 80.0 % SODIUM NA-STAT [id number] 10:05:00 Test Item Value Reference Range Interpretation Comments SODIUM (BEAKER) (test code = 381) 127 meq/L 135-148 L POTASSIUM-STAT [id number] 10:05:00 Test Item Value Reference Range Interpretation Comments POTASSIUM (BEAKER) (test code = 5.9 meq/L 3.6-5.5 H 379) GLUCOSE-STAT [id number] 10:05:00 Test Item Value Reference Range Interpretation Comments GLUCOSE RANDOM (BEAKER) (test code 241 mg/dL 70-110 H = 652) HGB/HCT (H&H) - STAT [id number] 10:05:00 Test Item Value Reference Range Interpretation Comments HEMOGLOBIN (BEAKER) (test code = 8.0 g/dL 12.0-15.0 L 410) HEMATOCRIT (BEAKER) (test code = 24.0 % 36.0-45.0 L 411) BLOOD GAS, [id number] 09:51:00 Test Item Value Reference Range Interpretation [...] code = 1819) 80.0 % SODIUM NA-STAT [id number] 09:51:00 Test Item Value Reference Range Interpretation Comments SODIUM (BEAKER) (test code = 381) 130 meq/L 135-148 L GLUCOSE-STAT [id number] 09:51:00 Test Item Value Reference Range Interpretation Comments GLUCOSE RANDOM (BEAKER) (test code 249 mg/dL 70-110 H = 652) HGB/HCT (H&H) - STAT [id number] 09:51:00 Test Item Value Reference Range Interpretation Comments HEMOGLOBIN (BEAKER) (test code = 8.1 g/dL 12.0-15.0 L 410) HEMATOCRIT (BEAKER) (test code = 24.0 % 36.0-45.0 L 411) POTASSIUM-STAT [id number] 09:50:00 Test Item Value Reference Range Interpretation Comments POTASSIUM (BEAKER) (test code = 5.4 meq/L 3.6-5.5 379) BLOOD GAS, [id number] 09:23:00 Test Item Value Reference Range Interpretation [...] code = 1819) 100.0 % SODIUM NA-STAT [id number] 09:23:00 Test Item Value Reference Range Interpretation Comments SODIUM (BEAKER) (test code = 381) 132 meq/L 135-148 L GLUCOSE-STAT [id number] 09:23:00 Test Item Value Reference Range Interpretation Comments GLUCOSE RANDOM (BEAKER) (test code 164 mg/dL 70-110 H = 652) CALCIUM, [id number] 09:23:00 Test Item Value Reference Range Interpretation Comments CALCIUM IONIZED (BEAKER) (test 1.05 mmol/L 1.12-1.27 L code = 698) PH, BLOOD (BEAKER) (test code = 7.44 1810) POTASSIUM-STAT [id number] 09:22:00 Test Item Value Reference Range Interpretation Comments POTASSIUM (BEAKER) (test code = 4.0 meq/L 3.6-5.5 379) HGB/HCT (H&H) - STAT [id number] 09:22:00 Test Item Value Reference Range Interpretation Comments HEMOGLOBIN (BEAKER) (test code = 12.2 g/dL 12.0-15.0 410) HEMATOCRIT (BEAKER) (test code = 36.0 % 36.0-45.0 411) RAD, CHEST, 1 VIEW, NON [id number] 07:12:00Reason for exam:->preopShould this be performed at the bedside?->YesFINAL REPORT INDICATION: preop COMPARISON: None TECHNIQUE: Single frontal view of the chest. FINDINGS: Lungs and pleura: Clear lungs. No effusion.Heart and mediastinum: Normal heart size. Unremarkable mediastinal contours.Osseous structures: No acute abnormality.Other: None. IMPRESSION: No acute intrathoracic abnormality. Signed: Deirdre De Jesus MDReport Verified Date/Time: 07/29/2019 07:12:45 [id number] 07:01:00 Test Item Value Reference Range Interpretation Comments PARTIAL THROMBOPLASTIN TIME 31.2 seconds 22.5-36.0 (BEAKER) (test code = 760) BASIC METABOLIC [id number] 05:57:00 Test Item Value Reference Range Interpretation [...] 1092) DATA TO CALCULA TE ESTIMATED GFR. [id number] 05:51:00 Test Item Value Reference Range Interpretation Comments MAGNESIUM (BEAKER) (test code = 1.9 mg/dL 1.6-2.6 627) [id number] 05:35:00 Test Item Value Reference Range Interpretation [...] 2.5-3.5 for patients wiht mechanical heart valves.PROTHROMBIN [id number] 05:34:00 Test Item Value Reference Range Interpretation [...] mechanical heart valves.CBC W/PLT COUNT & AUTO [id number] 05:24:00 Test Item Value Reference Range Interpretation [...] % 0-1 PERCENT (BEAKER) (test code = 4129) POC, COVID 19 Antigen + Flu by SofiaPOC, COVID 19 Antigen + Flu by Avril
--- NOTE | 2023-05-23 09:10 | RAD REPORT ---
EXAM DESCRIPTION: CT - Thorax Wo Con CLINICAL HISTORY: Chest pain TRAUMA COMPARISON: Chest Abd Pelvis Wo Con dated 05/19/2023 FINDINGS: The lungs are clear. No pleural thickening or pleural effusion. No pneumothorax. No axillary, mediastinal or hilar adenopathy. No concerning bony finding. Cholecystectomy clips. All CT scans are performed using dose optimization technique as appropriate and may include automated exposure control or mA/KV adjustment according to patient size. IMPRESSION: No acute abnormality detected.
--- NOTE | 2023-05-23 09:16 | ER ---
[facility]urse's Notes [facility] Name: Ivet Calderon Age: 72 yrs Sex: Female : 1950 Arrival Date: 05/23/2023 Time: 08:26 Bed 15 Private MD: Shant Lao Diagnosis: Fall on same level from slipping, tripping and stumbling with subsequent striking against object;Contusion of left front wall of thorax;Abrasion, left knee Presentation: 05/23 08:39 Chief complaint: Patient states: MECHANICAL FALL YESTERDAY AT REST AREA, NOW WITH LEFT bp RIB PAIN. Coronavirus screen: At this time, the client does not indicate any symptoms associated with coronavirus-19. Ebola Screen: No symptoms or risks identified at this time. Initial Sepsis Screen: Does the patient meet any 2 criteria? No. Patient's initial sepsis screen is negative. Does the patient have a suspected source of infection? No. Patient's initial sepsis screen is negative. Risk Assessment: Do you want to hurt yourself or someone else? Patient reports no desire to harm self or others. Onset of symptoms is unknown. 08:39 Method Of Arrival: Ambulatory bp 08:39 Acuity: DORYS 3 bp Historical: - Allergies: 08:40 Morphine; bp - Home Meds: 08:40 aspirin 81 mg Oral chew 1 tab once daily [Active]; Lopressor 50 mg Oral tab 1 tab once bp daily [Active]; lisinopril Oral [Active]; - PMHx: 08:40 diabetes mellitus; heart attack; Hypercholesterolemia; Hypertension; bp - PSHx: 08:40 Appendectomy; Cholecystectomy; open heart surgery; Stented artery; bp - Immunization history:: Adult Immunizations up to date. - Social history:: Smoking status: Patient denies any tobacco usage or history of. Screenin:[address] [facility] ED Fall Risk Assessment (Adult) History of falling in the last 3 months, vg1 including since admission Yes- single mechanical fall (1 pt) Confusion or Disorientation No (0 pts) Intoxicated or Sedated No (0 pts) Impaired Gait No (0 pts) Mobility Assist Device Used No (0 pt) Altered Elimination No (0 pt) Score/Fall Risk Level 0 - 2 = Low Risk Oriented to surroundings, Maintained a safe environment, Educated pt \T\ family on fall prevention, incl call for assistance when getting out of bed, Assessed \T\ reinforced patient's understanding of fall precautions. Abuse screen: Denies threats or abuse. Denies injuries from another. Nutritional screening: No deficits noted. Tuberculosis screening: No symptoms or risk factors identified. Assessment: 09:00 General: Appears in no apparent distress. comfortable, Behavior is calm, cooperative. vg1 Pain: Complains of pain in left breast Pain currently is 8 out of 10 on a pain scale. Neuro: Level of Consciousness is awake, alert, obeys commands, Oriented to person, place, time, situation. Cardiovascular: Patient's skin is warm and dry. Respiratory: Airway is patent Respiratory effort is even, unlabored, Breath sounds are clear bilaterally. Derm: appears to have an abrasion to left knee. Musculoskeletal: Circulation, motion, and sensation intact. Vital Signs: 08:39 BP 190 / 83; Pulse 90; Resp 16; Temp 98; Pulse Ox 98% ; bp ED Course: 08:32 Patient arrived in ED. mr 08:32 Shant Lao DO is Private Physician. mr 08:34 [facility] Mcnamara[facility] snw 08:34 Abbe Lao MD is Attending Physician. snw 08:40 Triage completed. bp 08:40 Arm band placed on. bp 08:[address] In Process Unspecified. EDMS 08:58 Marzena Givens, RN is Primary Nurse. vg1 09:00 Patient has correct armband on for positive identification. Bed in low position. Call vg1 light in reach. Side rails up X 1. 09:00 No provider procedures requiring assistance completed. Patient did not have IV access vg1 during this emergency room visit. 09:35 INCENTIVE SPIROMETRY Sent. vg1 Administered Medications: 09:40 Drug: Ketorolac IM 30 mg Route: IM; Site: right deltoid; vg1 09:49 Follow up: Response: Medication administered at discharge. vg1 09:49 Drug: Mupirocin Topical Ointment 2 % 1 application Route: Topical; Site: wound; vg1 09:49 Follow up: Response: Medication administered at discharge. vg1 Medication: 09:00 VIS not applicable for this client. vg1 Outcome: 09:16 Discharge ordered by . snw 09:50 Discharged to home ambulatory. vg1 09:50 Condition: good 09:50 Discharge instructions given to patient, Instructed on discharge instructions, follow up and referral plans. medication usage, Demonstrated understanding of instructions, follow-up care, medications, Prescriptions given X 2. 09:51 Patient left the ED. vg1 Signatures: Dispatcher [employer] EDNettie Chisholm, NATHALIE-C COMMISSARY SUPERINTENDENT-Csnw Kathy Woodard Brian, RN RN Marzena Guidry RN RN vg1
--- NOTE | 2023-05-23 09:16 | EDPHYS ---
Physician Documentation [facility] Name: Ivet Calderon Age: 72 yrs Sex: Female : 1950 Arrival Date: 05/23/2023 Time: 08:26 Bed 15 Private MD: Sh[facility] ED Physician Abbe Lao HPI: 05/23 08:54 This 72 yrs old Female presents to ER via Ambulatory with complaints of Fall snw Injury. 08:54 Details of fall: The patient fell from an upright position. Onset: The symptoms/episode snw began/occurred acutely. Associated injuries: The patient sustained injury to the chest, contusion, tenderness, left rib pain. Severity of symptoms: At their worst the symptoms were moderate. It is unknown whether or not the patient has had similar symptoms in the past. Historical: - Allergies: 08:40 Morphine; bp - Home Meds: 08:40 aspirin 81 mg Oral chew 1 tab once daily [Active]; Lopressor 50 mg Oral tab 1 tab once bp daily [Active]; lisinopril Oral [Active]; - PMHx: 08:40 diabetes mellitus; heart attack; Hypercholesterolemia; Hypertension; bp - PSHx: 08:40 Appendectomy; Cholecystectomy; open heart surgery; Stented artery; bp - Immunization history:: Adult Immunizations up to date. - Social history:: Smoking status: Patient denies any tobacco usage or history of. ROS: 09:06 Constitutional: Negative for fever, chills, and weight loss, Eyes: Negative for injury, snw pain, redness, and discharge, ENT: Negative for injury, pain, and discharge, Neck: Negative for injury, pain, and swelling, Cardiovascular: Negative for chest pain, palpitations, and edema, Abdomen/GI: Negative for abdominal pain, nausea, vomiting, diarrhea, and constipation, Back: Negative for injury and pain, : Negative for injury, bleeding, discharge, and swelling, MS/Extremity: Negative for injury and deformity, Skin: Negative for injury, rash, and discoloration, Neuro: Negative for headache, weakness, numbness, tingling, and seizure, Psych: Negative for depression, anxiety, suicide ideation, homicidal ideation, and hallucinations. 09:06 Respiratory: Positive for left rib pain post mechanical fall yesterday. Exam: 09:13 Constitutional: This is a well developed, well nourished patient who is awake, alert, snw and in no acute distress. Head/Face: Normocephalic, atraumatic. Eyes: Pupils equal round and reactive to light, extra-ocular motions intact. Lids and lashes normal. Conjunctiva and sclera are non-icteric and not injected. Cornea within normal limits. Periorbital areas with no swelling, redness, or edema. ENT: Nares patent. No nasal discharge, no septal abnormalities noted. Tympanic membranes are normal and external auditory canals are clear. Oropharynx with no redness, swelling, or masses, exudates, or evidence of obstruction, uvula midline. Mucous membranes moist. Neck: Trachea midline, no thyromegaly or masses palpated, and no cervical lymphadenopathy. Supple, full range of motion without nuchal rigidity, or vertebral point tenderness. No Meningismus. Chest/axilla: Normal chest wall appearance and motion. Nontender with no deformity. No lesions are appreciated. Cardiovascular: Regular rate and rhythm with a normal S1 and S2. No gallops, murmurs, or rubs. Normal PMI, no JVD. No pulse deficits. Abdomen/GI: Soft, non-tender, with normal bowel sounds. No distension or tympany. No guarding or rebound. No evidence of tenderness throughout. Back: No spinal tenderness. No costovertebral tenderness. Full range of motion. MS/ Extremity: Pulses equal, no cyanosis. Neurovascular intact. Full, normal range of motion. Neuro: Awake and alert, GCS 15, oriented to person, place, time, and situation. Cranial nerves II-XII grossly intact. Motor strength 5/5 in all extremities. Sensory grossly intact. Cerebellar exam normal. Normal gait. Psych: Awake, alert, with orientation to person, place and time. Behavior, mood, and affect are within normal limits. 09:13 Respiratory: the patient does not display signs of respiratory distress, Respirations: normal, Breath sounds: are clear throughout. 09:13 Skin: Appearance: normal except for affected area, vitiligo diffusely, abrasion to left knee. Vital Signs: 08:39 BP 190 / 83; Pulse 90; Resp 16; Temp 98; Pulse Ox 98% ; bp MDM: 08:44 Patient medically screened. snw 08:54 ED course: Pt to CT via stretcher. snw 09:07 Differential diagnosis: contusion, fracture. Data reviewed: vital signs, nurses notes. snw Counseling: I had a detailed discussion with the patient and/or guardian regarding: the historical points, exam findings, and any diagnostic results supporting the discharge/admit diagnosis, radiology results. Special discussion: Based on the history and exam findings, there is no indication for further emergent testing or inpatient evaluation. I discussed with the patient/guardian the need to see the primary care provider for further evaluation of the symptoms. 09:14 I considered the following discharge prescriptions or medication management in the [facility] emergency department Medications were administered in the Emergency Department. See DEC. 05/23 08:44 Order name: Chest Wo Con CT; Complete Time: 09:12 snw 05/23 09:17 Order name: INCENTIVE SPIROMETRY snw Administered Medications: 09:40 Drug: Ketorolac IM 30 mg Route: IM; Site: right deltoid; vg1 09:49 Follow up: Response: Medication administered at discharge. vg1 09:49 Drug: Mupirocin Topical Ointment 2 % 1 application Route: Topical; Site: wound; vg1 09:49 Follow up: Response: Medication administered at discharge. vg1 Disposition Summary: 05/23/23 09:16 Discharge Ordered Location: Home snw Condition: Stable snw Diagnosis - Fall on same level from slipping, tripping and stumbling with subsequent striking snw against object - Contusion of left front wall of thorax snw - Abrasion, left knee snw Followup: snw - With: Emergency Department - When: As needed - Reason: Worsening of condition Followup: snw - With: Private Physician - When: 2 - 3 days - Reason: Recheck today's complaints, Continuance of care, Re-evaluation by your physician Discharge Instructions: - Discharge Summary Sheet snw - Chest Contusion, Adult snw - Fall Prevention in the Home, Adult snw - How to Use an Incentive Spirometer snw - Abrasion, [id number] snw - Incentive Spirometer Record snw Forms: - Medication Reconciliation Form snw - Thank You Letter snw - Antibiotic Education snw - Prescription Opioid Use snw - Patient Portal Instructions snw Prescriptions: - Mobic 7.5 mg Oral Tablet - take 1 tablet by ORAL route once daily take with food; 20 tablet; Refills: 0, snw Product Selection Permitted - orphenadrine citrate 100 mg Oral Tablet Sustained Release - take 1 tablet by ORAL route 2 times per day As needed; 20 tablet; Refills: 0, snw Product Selection Permitted Signatures: Dispatcher [employer] Nettie Otero, NATHALIE-C FENCE POST CUTTER-[employer] Kade De La Torre, RN RN Marzena Guidry RN RN vg1
[2023-05-23] MEDS ORDERED: KETOROLAC 30 MG/ML INJ ONE (09:45)
[2023-05-23] MEDS ORDERED: MUPIROCIN 2% OINT 22GM TUBE TOP ONE (09:45)
[2023-05-23 09:56] VITALS: BP 190/83; TEMP 98; O2SAT 98
== END 2023-05-23 09:51 | disposition home or self-care (01) ==
LOC: ER 08:26
DX: S20.212A Contusion of left front wall of thorax, initial encounter (principal); S80.212A Abrasion, left knee, initial encounter; W01.10XA Fall on same level from slipping, tripping and stumbling with subsequent striking against unspecified object, initial encounter; E11.9 Type 2 diabetes mellitus without complications; I10 Essential (primary) hypertension; Z79.82 Long term (current) use of aspirin; Z88.5 Allergy status to narcotic agent
CPT/HCPCS: 71250; 96372; 99284

== ENCOUNTER 2023-07-16 18:17 | Emergency (ER) | payer OTHER ==
--- OUTSIDE RECORDS SUMMARY | 2023-07-16 18:32 | XMS REPORT | Continuity of Care Document ---
:1950 Author Organization [facility] t Address [address] [place] [address] [place] [id number] Care Team Providers Name Role Phone No MD, Pcp Primary Care Physician Unavailable Shant Lao Attending Clinician Unavailable JUAN GALLARDO Attending Clinician Unavailable SHANEKA HAMPTON Attending Clinician Unavailable Patricia Holland MD Attending Clinician ALDEN ISAACS Attending Clinician Unavailable Alden Isaacs MD Attending Clinician UTE YOST Attending Clinician Unavailable Cinthia Vincent Attending Clinician CINTHIA GARCIA Attending Clinician Unavailable Ute Yost MD Attending Clinician Carol Ann Beatty NP Attending Clinician SunilCharlette Attending Clinician Doctor Unassigned, Coulter Attending Clinician Unavailable Juan Gallardo MD Attending Clinician [phone] Maribell Moe MD Attending Clinician Ige-Odunuga_J_AH Attending Clinician Unavailable YAMEL MONIQUE Attending Clinician Unavailable JUAN GALLARDO Admitting Clinician Unavailable ALDEN ISAACS Admitting Clinician Unavailable Ige-Odunuga_J_AH Admitting Clinician Unavailable YAMEL MONIQUE Admitting Clinician Unavailable Payers Payer Name Policy Type Policy Number Effective Date Expiration Date [id number] ALL 00:00:00 HUMANA MEDICARE [id number] 2023 ADVANTAGE HMO 00:00:00 [employer] [id number] 2022spring 00:00:00 HUMANA MEDICARE C1 [id number] Common Sp keith - [facility] HUMANA MEDICARE C1 [id number] Common Sp keith - [facility] HUMANA MEDICARE C1 [id number] Common Sp keith - [facility] HUMANA MEDICARE C1 [id number] Common Sp keith - [facility] HUMANA GOLD PLS [id number] 2021 O 00:00:00 [facility] [id number] 2019 - [facility] (MEDICARE REPLACEMENT/ADV ANTAGE - HMO) Problems Condition Condition Condition Status Onset Resolution Last Treating Co mments Source Name Details Category Date Date Treatment Clinician Date Left Left Disease Active 2019-[address] [facility] carotid carotid 2-07 [facility] artery artery 00:00: Medical stenosis stenosis 00 Center S/P CABG x S/P CABG x Disease Active 2018-[address] 1 by 1 by 0-16 Reji Gallardo on [facility] on 00:00: Me dical 07/29/2019 07/29/2019 00 Ce nter Coronary Coronary Disease Active 2018-10 [facility] S t artery artery 0-15 Reji disease disease 00:00: Medical 00 Center Other Other Disease Active Overview: Univer s appendicit appendicit 03-19 Formattin ity of is is 00:00: g of this [place] 00 note Medical might be Branch different from the original. Added automatic ally from request for surgery [id number] HLD HLD Disease Active Univers (hyperlipi (hyperlipi 04-18 it y of demia) demia) 00:00: [place] [facility] Abnormal Abnormal Disease Active Unive rs EKG EKG 04-18 ity of 00:00: [place] [address] Medical Branch Anemia of Anemia in Problem Com mon chronic chronic Spirit disorder illness - [facility] Anemia due Anemia, Problem Comm on to blood blood loss Spir it loss - [facility] Type II Diabetic Problem Common diabetes eye exam Spirit mellitus - CHI without complicati [facility] [id number] Demand Problem Common ischemia Spirit - [facility] [id number] Stenosis Problem Comm on of right Spirit vertebral - CHI artery [facility] Laboratory Abnormal Problem Com mon test laboratory [facility] result test - CHI abnormal [facility] [id number] Other Problem Common obesity Spirit due to - CHI excess [facility] [id number] Body mass Problem Com mon index Spirit [BMI] - CHI 31.0-31.9, [facility] [id number] Mixed Problem Common hyperlipid Spirit emia - [facility] [id number] Stented Problem Commo n coronary Spirit artery - [facility] [id number] Essential Problem Comm on (primary) Spirit hypertensi - CHI on [facility] [id number] Essen Problem Common hyperten Spirit preg-unsp - [facility] [id number] Coronary Problem Comm on artery Spirit disease - CHI involving [place] [facility] coronary Medical artery of Center sw[place] heart with other form of angina pectoris [id number] Type 2 Problem Common diabetes Spirit mellitus - CHI with [facility] Center long-term current use of insulin [id number] Iron Problem Common deficiency Spirit anemia, - CHI unspecifie [facility] iron [facility] deficiency Medica l anemia Center type [id number] 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 [place] 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 - CHI thrombosis thrombosis [facility] cerebral unspecifie Medi albert arteries d Center posterior cerebral artery Angina Angina Problem Common pectoris pectoris, Spiri t unspecifie - CHI d [facility] Acute Acute Disease Recurre [facility] respirator respirator nce Daniela kes y y Medical insufficie insufficie Ce nter ncy ncy Acute Acute Disease Active [facility] blood loss blood loss Daniela kes anemia anemia [facility] Center Hyperglyce Hyperglyce Disease Active C [facility] keyona [facility] Chronic Chronic Disease Active CHI [...] ity of 00:00: [place] 00 Medical Branch Morphine Propensi Active 2019-[address] ty to 11-14 [facility] adverse 00:00: Medical reaction 00 Center s MORPHINE Allergy Active 2019-[address] 11-14 [facility] 00:00: Medical 00 Center NO KNOWN Allergy Active [facility] ALLERGIE S morphine morphine Active [place] [facility] Spirit - [facility] NO KNOWN Drug Active Univers ALLERGIE Class ity of S [facility] Family History Family Member Diagnosis Comments Start Date Stop Date Source Natural brother Heart attack [facility] Natural father Diabetes [facility] Natural father Heart disease [facility] Natural mother Diabetes [facility] Natural mother Heart attack [facility] Social History Social Habit Start Date Stop Date Quantity Comments Source History SDOH [facility] Alcohol Comment Medical C enter History of Tobacco Common Spirit - Use [facility] History SDOH [facility] Alcohol Std Drinks Medica [facility] History SDOH [facility] Alcohol Binge Medical Tina ter Sexual orientation [facility] History of Social 2023-06-25 2023-06-25 [facility] function 00:00:00 00:00:00 Exposure to 2023-02-09 2023-02-19 Not sure University of SARS-CoV-2 (event) 00:00:00 15:54:00 [facility] Alcohol intake 2020-10-03 2020-10-03 Current JEOVANY Ferro es 00:00:00 00:00:00 non-drinker of Medical Ce nter alcohol (finding) History SDOH 2019-07-29 2019-07-29 1 JEOVANY Abrams Alcohol Frequency 00:00:00 00:00:00 Medical [place] Tobacco use and 2019-03-19 2019-03-19 Smokeless Universit y of exposure 00:00:00 00:00:00 tobacco non-user [facility] Sex Assigned At [birth year] JEOVANY Agarwals 00:00:00 00:00:00 [facility] Center Smoking Status Start Date Stop Date Source Tobacco smoking consumption [facility] Never Smoker [facility] Spirit - [facility] Medications Ordered Filled Start Stop Current Ordering Indication Dosage Frequency Signature Comments Components Source Medication Medication Date Date Medication? Clinician (SIG) Name Name metFORMIN 2022-0 Yes 500mg Take 500 UT (Glucophage 9-12 mg by Health ) 500 MG 11:18: mouth in tablet 14 the morning and 500 mg in the evening. Take with meals. atorvastati 0 Yes 80mg QD Take 80 mg UT n (Lipitor) 9-12 by mouth 1 He alth 40 MG 11:17: (one) time tablet 51 each day. aspirin 81 2022-0 Yes 81mg QD Take 81 mg U T MG EC 9-12 by mouth 1 Health tablet 11:17: (one) time 00 each day. lisinopril 2022-0 Yes 40mg QD Take 40 mg U T 40 MG 9-12 by mouth 1 Health tablet 11:17: (one) time 00 each day. clopidogrel 2022-0 Yes 75mg QD Take 75 mg UT (Plavix) 75 9-12 by mouth 1 He alth MG tablet 11:17: (one) time 00 each day. insulin 2022-0 Yes 15U Inject 15 UT glargine 9-12 Units [facility] (Lantus) 11:13: under the 100 UNIT/ML 29 skin every injection night. cefTRIAXone 2022-0 3- No 1000mg 1,000 mg, Univers (ROCEPHIN) 5-10 05-10 IV ity of 1,000 mg in 01:15: 01:44 Piggyback, [place] NaCl 0.9% 00 :00 ONCE, 1 Medical (NS) 100 mL dose, On Bran ch MINI-BAG Sat02/19/23 at 2014, Administer over 30 Minutes, 100 mL
Reas on for Anti-Infec tive: Documented Infection< br>Documen zoë Infection Site: Urine<br&g t;Duration of Therapy: 7 days hydralAZINE 2022- No 10mg 10 mg, Uni vers (APRESOLINE 02-20 05-10 Slow IV ity of ) injection 01:15: 01:16 [place] 10 mg 00 :00 ONCE, 1 Medical dose, On Branch Sat02/19/23 at 2014, JASON Nitrofurant 2022- No [id number] 100mg Take 1 Univers oin&Nit. 02-19 capsule [...] 30mg 30 mg, Unive rs (TORADOL) 06-18 09-05 Intramuscu ity of injection 16:45: 15:41 lar, ONCE, [place] 30 mg 00 :00 1 dose, Medical 06/18/21 Branch at 1145, JASON
Fa formerly [facility] member approving Restricted medication : CAROL ANN BEATTY HYDROcodone 2020- No 1{tbl} 1 tablet, Univers -acetaminop 06-18 Oral, ity of hen (NORCO) 16:45: 15:41 [place]CE[place] 10[place]325 mg 00 :00 dose, Sun Medic al tablet 1 06/18/21 at Branch tablet 1145, Routine metoprolol Yes 25mg Take 25 mg U nivers tartrate 25 06-18 by mouth. ity of mg tablet 16:10: [address] clopidogreL Yes 75mg Take 75 mg Univers 75 mg 06-18 by mouth. ity of tablet 16:10: [address] metoprolol Yes 25mg Take 25 mg U nivers tartrate 25 06-18 by mouth. ity of mg tablet 16:10: [address] clopidogreL Yes 75mg Take 75 mg Univers 75 mg 05 by mouth. ity of tablet 16:10: [address] metoprolol Yes 25mg Take 25 mg U nivers tartrate 25 06-18 by mouth. ity of mg tablet 16:10: [address] clopidogreL Yes 75mg Take 75 mg Univers 75 mg 06-18 by mouth. ity of tablet 16:10: [address] metoprolol Yes 25mg Take 25 mg U nivers tartrate 25 06-18 by mouth. ity of mg tablet 16:10: [address] clopidogreL Yes 75mg Take 75 mg Univers 75 mg 05 by mouth. ity of tablet 16:10: [address] metoprolol Yes 25mg Take 25 mg U nivers tartrate 25 06-18 by mouth. ity of mg tablet 16:10: [address] clopidogreL Yes 75mg Take 75 mg Univers 75 mg 05 by mouth. ity of tablet 16:10: [address] atorvastati 2020- No 80mg Take 80 mg Univers n 40 mg 06-18 by mouth. ity of tablet 16:10: 00:00 [place] 25 :00 Medical Branch metFORMIN 2020-0 2020- No 850mg Take 850 Un zia 850 mg 06-18 mg by ity of tablet 16:10: 00:00 mouth. 25 :00 Medical Branch clopidogreL Yes 75mg Take 75 mg Univers 75 mg 06-18 by mouth. ity of tablet 11:10: [place] [address] Medical Branch metoprolol Yes 25mg Take 25 mg U nivers tartrate 06-18 by mouth. ity of mg tablet 11:10: [place] [address] Medical Branch traMADoL 50 2020- No 4647 [...] 2-21 by mouth [facility] tablet 11:03: daily. [address] [facility]-10 Yes 80mg QD Take [address] n (LIPITOR) 2-21 by mouth Luke s 40 MG 11:03: daily . Medical tablet [address] [place] [address] metFORMIN 2019-10 Yes 850mg Take [address] (GLUCOPHAGE 2-21 mg by Lukes ) 850 MG 11:03: mouth 2 Medica l tablet 52 (two) Center times daily with breakfast and dinner. clopidogreL 2019-10 Yes 75mg QD Take [address] (PLAVIX) 75 2-21 by mouth Luke s mg tablet 11:03: daily. Medica l [address] [place] [address] metoprolol 2019-10 Yes 25mg Q.5D Take [address] tartrate 2-21 by mouth 2 [facility]ukes (LOPRESSOR) 11:03: (two) Medic al 25 MG 52 times Center tablet daily. aspirin 81 2019-10 Yes 81mg QD Take [address] MG EC 2-21 by mouth [facility]ukes tablet 11:03: daily. [address] [facility] 2019-10 Yes 80mg QD Take [address] n (LIPITOR) 2-21 by mouth Luke s 40 MG 11:03: daily . Medical tablet [address] [place] [address] metFORMIN 2019-10 Yes 850mg Take [address] (GLUCOPHAGE 2-21 mg by Lukes ) 850 MG 11:03: mouth 2 Medica l tablet 52 (two) Center times daily with breakfast and dinner. clopidogreL 2019-10 Yes 75mg QD Take [address] (PLAVIX) 75 2-21 by mouth Luke s mg tablet 11:03: daily. Medica l [address] [place] [address] metoprolol 2019-10 Yes 25mg Q.5D Take [address] tartrate 2-21 by mouth 2 [facility]ukes (LOPRESSOR) 11:03: (two) Medic al 25 MG 52 times Center tablet daily. aspirin 81 2019-10 Yes 81mg QD Take [address] MG EC 2-21 by mouth Lukes tablet 11:03: daily. [address] atorvastati 2019-10 Yes 80mg QD Take [address] n (LIPITOR) 2-21 by mouth Luke s 40 MG 11:03: daily . Medical tablet [address] [place] [address] metFORMIN 2019-10 Yes 850mg Take [address] (GLUCOPHAGE 2-21 mg by Lukes ) 850 MG 11:03: mouth 2 Medica l tablet 52 (two) Center times daily with breakfast and dinner. clopidogreL 2019-10 Yes 75mg QD Take [address] (PLAVIX) 75 2-21 by mouth Luke s mg tablet 11:03: daily. Medica l [address] [place] [address] metoprolol 2019-10 Yes 25mg Q.5D Take [address] tartrate 2-21 by mouth 2 [facility]ukes (LOPRESSOR) 11:03: (two) Medic al 25 MG 52 times Center tablet daily. aspirin 81 2019-10 Yes 81mg QD Take [address] MG EC 2-21 by mouth Lukes tablet 11:03: daily. [address] [facility] 2019-10 Yes 80mg QD Take [address] n (LIPITOR) 2-21 by mouth Luke s 40 MG 11:03: daily . Medical tablet [address] [place] [address] metFORMIN 2019-10 Yes 850mg Take [address] (GLUCOPHAGE 2-21 mg by Lukes ) 850 MG 11:03: mouth 2 Medica l tablet 52 (two) Center times daily with breakfast and dinner. clopidogreL 2019-10 Yes 75mg QD Take [address] (PLAVIX) 75 2-21 by mouth Luke s mg tablet 11:03: daily. Medica [address] metoprolol 2019-10 Yes 25mg Q.5D Take [address] tartrate 2-21 by mouth 2 [facility]ukes (LOPRESSOR) 11:03: (two) Medic al 25 MG 52 times Center tablet daily. aspirin 81 2019-10 Yes 81mg QD Take [address] MG EC 2-21 by mouth Lukes tablet 11:03: daily. [address] atorvasta 2019-10 Yes 80mg QD Take [address] n (LIPITOR) 2-21 by mouth Luke s 40 MG 11:03: daily . Medical tablet [address] [place] [address] metFORMIN 2019-10 Yes 850mg Take [address] (GLUCOPHAGE 2-21 mg by Lukes ) 850 MG 11:03: mouth 2 Medica l tablet 52 (two) Center times daily with breakfast and dinner. clopidogreL 2019-10 Yes 75mg QD Take [address] (PLAVIX) 75 2-21 by mouth Luke s mg tablet 11:03: daily. [address] metoprolol 2019-10 Yes 25mg Q.5D Take [address] tartrate 2-21 by mouth 2 [facility]ukes (LOPRESSOR) 11:03: (two) Medic al 25 MG 52 times Center tablet daily. aspirin 81 2019-10 Yes 81mg QD Take [address] MG EC 2-21 by mouth Lukes tablet 11:03: daily. [address] atorvastati 2019-10 Yes 80mg QD Take [address] n (LIPITOR) 2-21 by mouth Luke s 40 MG 11:03: daily . Medical [address] metFORMIN 2019-10 Yes 850mg Take [address] (GLUCOPHAGE 2-21 mg by Lukes ) 850 MG 11:03: mouth 2 Medica l tablet 52 (two) Center times daily with breakfast and dinner. clopidogreL 2019-10 Yes 75mg QD Take [address] (PLAVIX) 75 2-21 by mouth Luke s mg tablet 11:03: daily. [address] metoprolol 2019-10 Yes 25mg Q.5D Take [address] tartrate 2-21 by mouth 2 [facility]ukes (LOPRESSOR) 11:03: (two) Medic al 25 MG 52 times Center tablet daily. aspirin 81 2019-10 Yes 81mg QD Take [address] MG EC 2-21 by mouth Lukes tablet 11:03: daily. [address] atorvastati 2019-10 Yes 80mg QD Take [address] n (LIPITOR) 2-21 by mouth Luke s 40 MG 11:03: daily . Medical [address] metFORMIN 2019-10 Yes 850mg Take [address] (GLUCOPHAGE 2-21 mg by Lukes ) 850 MG 11:03: mouth 2 Medica l tablet 52 (two) Center times daily with breakfast and dinner. clopidogreL 2019-10 Yes 75mg QD Take [address] (PLAVIX) 75 2-21 by mouth Luke s mg tablet 11:03: daily. [address] metoprolol 2019-10 Yes 25mg Q.5D Take [address] tartrate 2-21 by mouth 2 [facility]ukes (LOPRESSOR) 11:03: (two) Medic al 25 MG 52 times Center tablet daily. aspirin 81 2019-10 Yes 81mg QD Take [address] MG EC 2-21 by mouth Lukes tablet 11:03: daily. [address] atorvastati 2019-10 Yes 80mg QD Take [address] n (LIPITOR) 2-21 by mouth Luke s 40 MG 11:03: daily . Medical tablet [address] [place] [address] metFORMIN 2019-10 Yes 850mg Take [address] (GLUCOPHAGE 2-21 mg by Lukes ) 850 MG 11:03: mouth 2 Medica l tablet 52 (two) Center times daily with breakfast and dinner. clopidogreL 2019-10 Yes 75mg QD Take [address] (PLAVIX) 75 2-21 by mouth Luke s mg tablet 11:03: daily. [address] metoprolol 2019-10 Yes 25mg Q.5D Take [address] tartrate 2-21 by mouth 2 [facility] (LOPRESSOR) 11:03: (two) Medic al 25 MG 52 times Center tablet daily. aspirin 81 2019-10 Yes 81mg QD Take [address] MG EC 2-21 by mouth Lukes tablet 11:03: daily. [address] atorvastati 2019-10 Yes 80mg QD Take [address] n (LIPITOR) 2-21 by mouth Luke s 40 MG 11:03: daily . Medical [address] metFORMIN 2019-10 Yes 850mg Take [address] (GLUCOPHAGE 2-21 mg by Lukes ) 850 MG 11:03: mouth 2 Medica l tablet 52 (two) Center times daily with breakfast and dinner. clopidogreL 2019-10 Yes 75mg QD Take [address] (PLAVIX) 75 2-21 by mouth Luke s mg tablet 11:03: daily. [address] metoprolol 2019-10 Yes 25mg Q.5D Take [address] tartrate 2-21 by mouth 2 [facility] (LOPRESSOR) 11:03: (two) Medic al 25 MG 52 times Center tablet daily. aspirin 81 2019-10 Yes 81mg QD Take [address] MG EC 2-21 by mouth [facility]ukes tablet 11:03: daily. [address] 2019-10 Yes 80mg QD Take 80 mg [...] 0-14 by mouth. ity of tablet 00:00: [place] [facility] citalopram 2019-10 Yes 20mg Take 20 mg U nivers 20 mg 0-14 by mouth. ity of tablet 00:00: [place] [facility] Branch citalopram 2019-10 Yes 20mg Take 20 mg U nivers 20 mg 0-14 by mouth. ity of tablet 00:00: [place] [facility] citalopram 2019-10 Yes 20mg Take 20 mg U nivers 20 mg 0-14 by mouth. ity of tablet 00:00: [place] [facility] citalopram 2019-10 Yes 20mg Take 20 mg U nivers 20 mg 0-14 by mouth. ity of tablet 00:: [place] [facility] citalopram 2019-10 Yes 20mg Take 20 mg U nivers 20 mg 0-14 by mouth. ity of tablet 00:00: [place] [address] [place] [address] citalopram 2019-10 Yes 20mg QD Take [address] (CeleXA) 20 0-14 by mouth Luke s MG tablet 00:00: [facility]. [facility] [place] citalopram 2019-10 Yes 20mg QD Take [address] (CeleXA) 20 0-14 by mouth Luke s MG tablet 00:00: daily. [facility] [place] citalopram 2019-10 Yes 20mg QD Take [address] (CeleXA) 20 0-14 by mouth Luke s MG tablet 00:00: daily. [facility] [place] citalopram 2019-10 Yes 20mg QD Take [address] (CeleXA) 20 0-14 by mouth Luke s MG tablet 00:00: daily. [facility] [place] citalopram 2019-10 Yes 20mg QD Take [address] (CeleXA) 20 0-14 by mouth Luke s MG tablet 00:00: daily. [facility] [place] citalopram 2019-10 Yes 20mg QD Take [address] (CeleXA) 20 0-14 by mouth Luke s MG tablet 00:00: daily. [facility] [place] citalopram 2019-10 Yes 20mg QD Take [address] (CeleXA) 20 0-14 by mouth Luke s MG tablet 00:00: daily. [facility] [place] citalopram 2019-10 Yes 20mg QD Take [address] (CeleXA) 20 0-14 by mouth Luke s MG tablet 00:00: daily. [facility] [place] citalopram 2019-10 Yes 20mg QD Take [address] (CeleXA) 20 0-14 by mouth Luke s MG tablet 00:00: daily. [facility] [place] citalopram 2019-10 Yes 20mg QD Take [address] (CeleXA) 20 0-14 by mouth Luke s MG tablet 00:00: daily. [facility] [place] metoprolol 2018-10 2020- No 25mg Q.5D Take [address] (LOPRESSOR) 0-22 10-21 tablet (25 L ukes 25 MG 00:00: 23:59 mg total) Medica l tablet 00 :00 by mouth 2 Center (two) times daily. metoprolol 2019 2020- No 25mg Q.5D Take [address] (LOPRESSOR) 0-22 10-21 tablet (25 L ukes 25 MG 00:00: 23:59 mg total) Medica l tablet 00 :00 by mouth 2 Center (two) times daily. amLODIPine 2019-0 Yes 5mg Take 1 Unive rs 5 mg tablet 6-24 tablet by ity of 00:00: mouth [place] 00 daily. Medical Indication Branch s: hasn't taken in a while due to financial issues hydroCHLORO 2019- Yes 12.5mg Take 1 Un zia thiazide [...] while due to financial issues atorvastati Yes [id number] 40mg Take 1 Univers n 40 mg [...] due to financial issues atorvastati 2019-0 Yes [id number] 40mg Take 1 Univers n 40 mg [...] while due to financial issues atorvastati Yes [id number] 40mg Take 1 Univers n 40 mg [...] a while due to financial issues lisinopril 0 Yes 40mg QD Take [address] (PRINIVIL,Z 6-24 by mouth Luke s ESTRIL) 20 00:00: daily . Medi albert MG tablet [address] [place] [address] atorvastati 0 Yes [id number] 40mg Take 1 Univers n 40 mg [...] due to financial issues atorvastati 2019-0 Yes [id number] 40mg Take 1 Univers n 40 mg [...] due to financial issues atorvastati 2019-0 Yes [id number] 40mg Take 1 Univers n 40 mg [...] while due to financial issues atorvastati Yes [id number] 40mg Take 1 Univers n 40 mg [...] while due to financial issues atorvastati Yes [id number] 40mg Take 1 Univers n 40 mg 6-24 tablet by ity of tablet 00:00: mouth at [place] 00 bedtime. Medical Branch lisinopril Yes 40mg QD Take [address] (PRINIVIL,Z 6-24 by mouth Luke s ESTRIL) 20 00:00: daily . Medi albert MG tablet 00 [place] lisinopril Yes 40mg QD Take [address] (PRINIVIL,Z 6-24 by mouth Luke s ESTRIL) 20 00:00: daily . Medi albert MG tablet 00 [place] lisinopril 20190 Yes 40mg QD Take [address] (PRINIVIL,Z 6-24 by mouth Luke s ESTRIL) 20 00:00: daily . Medi albert MG tablet 00 [place] lisinopril 0 Yes 40mg QD Take [address] (PRINIVIL,Z 6-24 by mouth Luke s ESTRIL) 20 00:00: daily . Medi albert MG tablet 00 [place] lisinopril Yes 40mg QD Take [address] (PRINIVIL,Z 6-24 by mouth Luke s ESTRIL) 20 00:00: daily . Medi albert MG tablet 00 [place] lisinopril 0 Yes 40mg QD Take [address] (PRINIVIL,Z 6-24 by mouth Luke s ESTRIL) 20 00:00: daily . Medi albert MG tablet 00 [place] lisinopril 0 Yes 40mg QD Take [address] (PRINIVIL,Z 6-24 by mouth Luke s ESTRIL) 20 00:00: daily . Medi albert MG tablet 00 [place] lisinopril 0 Yes 40mg QD Take [address] (PRINIVIL,Z 6-24 by mouth Luke s ESTRIL) 20 00:00: daily . Medi albert MG tablet 00 [place] lisinopril 0 Yes 40mg QD Take [address] (PRINIVIL,Z 6-24 by mouth Luke s ESTRIL) 20 00:00: daily . Medi albert MG tablet 00 [place] traMADOL 50 Yes [id number] 50mg Take 1 Univers mg tablet 6-17 tablet by ity o f 00:00: mouth [place] 00 every 6 Medical (six) Branch hours as needed for Pain (scale 7-10). traMADOL 50 Yes [id number] 50mg Take 1 Univers mg tablet 6-17 tablet by ity o f 00:00: mouth [place] 00 every 6 Medical (six) Branch hours as needed for Pain (scale 7-10). traMADOL 50 2018-0 Yes [id number] 50mg Take 1 Univers mg tablet 6-17 tablet by ity o f 00:00: mouth [place] 00 every 6 Medical (six) Branch hours as needed for Pain (scale 7-10). traMADOL 50 0 Yes [id number] 50mg Take 1 Univers mg tablet 6-17 tablet by ity o f 00:00: mouth [place] 00 every 6 Medical (six) Branch hours as needed for Pain (scale 7-10). traMADOL 50 2018-0 Yes [id number] 50mg Take 1 Univers mg tablet 6-17 tablet by ity o f 00:00: mouth [place] 00 every 6 Medical (six) Branch hours as needed for Pain (scale 7-10). traMADOL 50 2018-0 Yes [id number] 50mg Take 1 Univers mg tablet 6-17 tablet by ity o f 00:00: mouth [place] 00 every 6 Medical (six) Branch hours as needed for Pain (scale 7-10). traMADOL 50 2019-0 Yes [id number] 50mg Take 1 Univers mg tablet 6-17 tablet by ity o f 00:00: mouth [place] 00 every 6 Medical (six) Branch hours as needed for Pain (scale 7-10). traMADOL 50 2019-0 Yes [id number] 50mg Take 1 Univers mg tablet 6-17 [...] a while due to financial issues metFORMIN 2018-0 Yes 500mg Take 500 Uni vers (GLUCOPHAGE 6-13 mg by ity of ) 500 mg 09:51: mouth 2 [place] tablet 59 (two) Medical times Branch daily with meals. Indication s: hasn't taken in a while due to financial issues amoxicillin 2018- Yes [id number] 1{tbl} Take 1 Univers -clavulanat 6-13 tablet by ity of e 00:00: mouth 2 [place] (AUGMENTIN) 00 (two) Medical 875-125 mg times Branch per tablet daily. amoxicillin 2018- Yes [id number] 1{tbl} Take 1 Univers -clavulanat 6-13 tablet by ity of e 00:00: mouth 2 [place] (AUGMENTIN) 00 (two) Medical 875-125 mg times Branch per tablet daily. amoxicillin 2020- No [id number] 1{tbl} Take 1 Univers -clavulanat 6-13 09-05 [...] daily. Medical Branch Metoprolol Metoprolol No Metoprolol Tartrate 50 Tartrate [...] 75 MG 75 MG Bisulfate 75 MG Vital Signs Vital Name Observation Time Observation Value Comments Source HEIGHT 2020-09-19 09:05:00 154.9 cm WEIGHT 2020-09-19 09:05:00 75.615 kg Systolic blood 2023-02-20 02:31:00 163 mm[Hg] Univer sity of [facility] Diastolic blood 2023-02-20 02:31:00 70 mm[Hg] Unive rsity [facility] Heart rate 2023-02-20 02:31:00 94 /min [facility] Respiratory rate 2023-02-20 02:31:00 22 /min [facility] Oxygen saturation in 2023-02-20 02:31:00 96 /min [facility] Arterial blood by [facility] Pulse oximetry Branch Body temperature 2023-02-19 20:52:[address] [facility] Body height 2023-02-19 20:52:00 154.9 cm [facility] Body weight 2023-02-19 20:52:00 76.658 kg [facility] BMI 2023-02-19 20:52:00 31.93 kg/m2 [facility] height 2022-11-15 15:20:00 61 [in_i] [facility] weight 2022-11-15 15:20:00 175.3 [lb_av] [facility] temperature 2022-11-15 15:20:00 96.8 [degF] [facility] bmi 2022-11-15 15:20:00 33.12 kg/m2 [facility] oximetry 2022-11-15 15:20:00 95 % [facility] respiratory rate 2022-11-15 15:20:00 17 /min Comm on [facility] blood pressure 2022-11-15 15:20:00 138 mm[Hg] Common [facility] - systolic [facility] blood pressure 2022-11-15 15:20:00 78 mm[Hg] Common [facility] - diastolic [facility] height 2022-10-19 15:20:00 61 [in_i] [facility] weight 2022-10-19 15:20:00 174.0 [lb_av] [facility] temperature 2022-10-19 15:20:00 97.4 [degF] [facility] bmi 2022-10-19 15:20:00 32.87 kg/m2 [facility] oximetry 2022-10-19 15:20:00 97 % Common S pirit - [facility] respiratory rate 2022-10-19 15:20:00 18 /min Comm on [facility] blood pressure 2022-10-19 15:20:00 138 mm[Hg] Common [facility] - systolic [facility] blood pressure 2022-10-19 15:20:00 70 mm[Hg] Common [facility] - diastolic [facility] height 2022-08-06 16:40:00 61 [in_i] [facility] weight 2022-08-06 16:40:00 167 [lb_av] Common [facility] temperature 2022-08-06 16:40:00 97.1 [degF] [facility] S [facility] bmi 2022-08-06 16:40:00 31.55 kg/m2 [facility] oximetry 2022-08-06 16:40:00 98 % Common S [facility] respiratory rate 2022-08-06 16:40:00 18 /min Comm on [facility] blood pressure 2022-08-06 16:40:00 148 mm[Hg] Common [facility] - systolic [facility] blood pressure 2022-08-06 16:40:00 78 mm[Hg] Common [facility] - diastolic [facility] height 2022-07-05 16:40:00 61 [in_i] Common S pirit [facility] weight 2022-07-05 16:40:00 169.0 [lb_av] Common [facility] temperature 2022-07-05 16:40:00 98.0 [degF] Common S pirit [facility] bmi 2022-07-05 16:40:00 31.93 kg/m2 Common S pirit [facility] oximetry 2022-07-05 16:40:00 96 % [facility] respiratory rate 2022-07-05 16:40:00 17 /min Comm on [facility] blood pressure 2022-07-05 16:40:00 137 mm[Hg] Common [facility] - systolic [facility] blood pressure 2022-07-05 16:40:00 70 mm[Hg] Common [facility] - diastolic [facility] height 2022-04-23 11:20:00 61 [in_i] Common [facility] weight 2022-04-23 11:20:00 165.3 [lb_av] Common [facility] temperature 2022-04-23 11:20:00 97.3 [degF] Common [facility] bmi 2022-04-23 11:20:00 31.23 kg/m2 Common [facility] oximetry 2022-04-23 11:20:00 96 % [facility] respiratory rate 2022-04-23 11:20:00 17 /min Comm on [facility] blood pressure 2022-04-23 11:20:00 138 mm[Hg] Common [facility] - systolic [facility] blood pressure 2022-04-23 11:20:00 77 mm[Hg] Common [facility] - diastolic [facility] height 2022-01-04 13:50:00 61 [in_i] Common [facility] weight 2022-01-04 13:50:00 166.1 [lb_av] Common [facility] temperature 2022-01-04 13:50:00 97.5 [degF] Common S [facility] bmi 2022-01-04 13:50:00 31.38 kg/m2 Common S [facility] oximetry 2022-01-04 13:50:00 97 % Common [facility] respiratory rate 2022-01-04 13:50:00 16 /min Comm on [facility] blood pressure 2022-01-04 13:50:00 142 mm[Hg] Common [facility] - systolic [facility] blood pressure 2022-01-04 13:50:00 75 mm[Hg] Common [facility] - diastolic [facility] height 2022-01-04 14:00:00 61 [in_i] Common S pirit [facility] weight 2022-01-04 14:00:00 166.1 [lb_av] Common [facility] temperature 2022-01-04 14:00:00 97.5 [degF] Common S pirit - [facility] bmi 2022-01-04 14:00:00 31.38 kg/m2 Common S pirit [facility] oximetry 2022-01-04 14:00:00 97 % Common S pirit [facility] respiratory rate 2022-01-04 14:00:00 16 /min Comm on [facility] blood pressure 2022-01-04 14:00:00 142 mm[Hg] Common [facility] - systolic [facility] blood pressure 2022-01-04 14:00:00 75 mm[Hg] Common [facility] - diastolic [facility] height 2021-09-28 09:30:00 61 [in_i] [facility] weight 2021-09-28 09:30:00 162.3 [lb_av] [facility] temperature 2021-09-28 09:30:00 97.5 [degF] Common S [facility] bmi 2021-09-28 09:30:00 30.66 kg/m2 Common S pirit [facility] oximetry 2021-09-28 09:30:00 97 % Common S pirit [facility] respiratory rate 2021-09-28 09:30:00 16 /min Comm on [facility] blood pressure 2021-09-28 09:30:00 152 mm[Hg] [facility] - systolic [facility] blood pressure 2021-09-28 09:30:00 72 mm[Hg] [facility] - diastolic [facility] height 2021-08-25 16:00:00 61 [in_i] Common S pirit [facility] weight 2021-08-25 16:00:00 167 [lb_av] Common [facility] temperature 2021-08-25 16:00:00 97.7 [degF] Common S pirit [facility] bmi 2021-08-25 16:00:00 31.55 kg/m2 Common S [facility] oximetry 2021-08-25 16:00:00 96 % [facility] blood pressure 2021-08-25 16:00:00 140 mm[Hg] Common [facility] - systolic [facility] blood pressure 2021-08-25 16:00:00 78 mm[Hg] [facility] - diastolic [facility] height 2021-07-26 09:40:00 61 [in_i] [facility] weight 2021-07-26 09:40:00 164.4 [lb_av] [facility] temperature 2021-07-26 09:40:00 97.4 [degF] Common [facility] bmi 2021-07-26 09:40:00 31.06 kg/m2 [facility] oximetry 2021-07-26 09:40:00 97 % [facility] respiratory rate 2021-07-26 09:40:00 17 /min Comm on [facility] blood pressure 2021-07-26 09:40:00 139 mm[Hg] Common [facility] - systolic [facility] blood pressure 2021-07-26 09:40:00 72 mm[Hg] [facility] - diastolic [facility] height 2021-06-28 08:50:00 61 [in_i] Common [facility] weight 2021-06-28 08:50:00 159.1 [lb_av] [facility] temperature 2021-06-28 08:50:00 97.2 [degF] [facility] bmi 2021-06-28 08:50:00 30.06 kg/m2 [facility] oximetry 2021-06-28 08:50:00 98 % Common S pirit - [facility] respiratory rate 2021-06-28 08:50:00 18 /min Comm on Spirit - [facility] blood pressure 2021-06-28 08:50:00 158 mm[Hg] [facility] - systolic [facility] blood pressure 2021-06-28 08:50:00 75 mm[Hg] [facility] - diastolic [facility] Systolic blood 2021-06-20 20:23:00 148 mm[Hg] Univer sity of pressure [facility] Diastolic blood 2021-06-20 20:23:00 66 mm[Hg] Unive rsity of [facility] Heart rate 2021-06-20 20:23:00 76 /min Universi ty of [facility] Body height 2021-06-20 20:23:00 154.9 cm Universi ty of [facility] Body weight 2021-06-20 20:23:00 74.844 kg Universi ty of [facility] BMI 2021-06-20 20:23:00 31.18 kg/m2 Universi ty of [facility] Systolic blood 2021-06-18 16:05:00 184 mm[Hg] Univer sity of pressure [facility] Diastolic blood 2021-06-18 16:05:00 60 mm[Hg] Unive rsity of [facility] Heart rate 2021-06-18 15:10:00 77 /min Universi ty of [facility] Body temperature 2021-06-18 15:10:00 37.44 [place] Univ ersity of [facility] Respiratory rate 2021-06-18 15:10:00 20 /min Univ ersity of [facility] Body height 2021-06-18 15:10:00 154.9 cm Universi ty of [facility] Body weight 2021-06-18 15:10:00 74.844 kg Universi ty of [facility] BMI 2021-06-18 15:10:00 31.18 kg/m2 Universi ty of [facility] Oxygen saturation in 2021-06-18 15:10:00 98 /min University Arterial blood by [facility] Pulse oximetry Branch Systolic blood 2021-06-18 16:05:00 184 mm[Hg] Univer sity of pressure [facility] Diastolic blood 2021-06-18 16:05:00 60 mm[Hg] Unive rsity of pressure [facility] Heart rate 2021-06-18 15:10:00 77 /min Universi ty of [facility] Body temperature 2021-06-18 15:10:00 37.44 [place] Univ ersity of [facility] Respiratory rate 2021-06-18 15:10:00 20 /min [facility] 2021-06-18 15:10:00 154.9 cm Universi ty of [facility] Body weight 2021-06-18 15:10:00 74.844 kg Universi ty [facility] BMI 2021-06-18 15:10:00 31.18 kg/m2 Universi [facility] Oxygen saturation in 2021-06-18 15:10:00 98 /min [facility] blood by [facility] Pulse oximetry Branch HEIGHT 2020-10-03 11:00:00 154.9 cm WEIGHT 2020-10-03 11:00:00 75.297 kg HEIGHT 2020-10-03 11:00:00 154.9 cm WEIGHT 2020-10-03 11:00:00 75.297 kg HEIGHT 2020-09-19 09:05:00 154.9 cm WEIGHT 2020-09-19 09:05:00 75.615 kg HEIGHT 2020-09-13 13:29:00 154.9 cm WEIGHT 2020-09-13 13:29:00 75.297 kg HEIGHT 2020-09-13 13:29:00 154.9 cm WEIGHT 2020-09-13 13:29:00 75.297 kg Systolic blood 2020-10-03 11:00:00 171 mm[Hg] [facility] Diastolic blood 2020-10-03 11:00:00 71 mm[Hg] S [facility] Heart rate 2020-10-03 11:00:00 78 /min [facility] Body temperature 2020-10-03 11:00:00 37 [place] [facility] Respiratory rate 2020-10-03 11:00:00 18 /min [facility] Body height 2020-10-03 11:00:00 154.9 cm [facility] Body weight 2020-10-03 11:00:00 75.297 kg [facility] BMI 2020-10-03 11:00:00 31.37 kg/m2 [facility] Oxygen saturation in 2020-10-03 11:00:00 98 /min room air [facility] Arterial blood by Medical Ce nter Pulse oximetry Procedures Procedure Date / Time Performing Clinician Source Performed EKG-12 LEAD 2023-02-20 01:48:08 Alden Isaacs [facility] URINALYSIS 2023-02-20 00:24:00 Alden Isaacs [facility] LIPASE 2023-02-19 22:43:00 Alden Isaacs [facility] TROPONIN I 2023-02-19 22:43:00 Alden Isaacs [facility] COMP. METABOLIC PANEL 2023-02-19 22:43:00 Alden Isaacs [facility] ([id number]) [facility] CBC WITH DIFF 2023-02-19 22:43:00 Alden Isaacs [facility] N-TERMINAL PRO-BNP 2023-02-19 22:43:00 Alden Isaacs [facility] NOTICE OF PRIVACY 2023-02-19 22:08:23 Doctor Unassigned, No [facility] PRACTICES Name [facility] ASSIGNMENT OF BENEFITS 2023-02-19 22:07:28 Doctor Unassigned, No [facility] Name [facility] CONSENT/REFUSAL FOR 2023-02-19 20:48:43 Doctor Unassigned, No [facility] DIAGNOSIS AND TREATMENT Name [facility] REFERRAL- 2021-04-06 05:01:00 Doctor Unassigned, No [facility] REQUEST/RESPONSE Name [facility] POCT-GLUCOSE METER 2020-09-20 11:36:00 Juan Gallardo [facility] POCT-GLUCOSE METER 2020-09-20 07:33:00 Juan Gallardo [facility] CBC W/PLT COUNT & AUTO 2020-09-20 00:18:00 Vanessa Jasmine [facility] BASIC METABOLIC PANEL 2020-09-20 00:18[facility] 2020-09-20 00:18[facility] 2020-09-20 00:18:00 Ukdorothy, [facility] CALCIUM, IONIZED 2020-09-20 00:18:00 [facility] TISSUE EXAM 2020-09-19 14:54:00 [facility] POCT-ACT 2020-09-19 14:15:00 [facility] POCT-ACT 2020-09-19 14:03:00 [facility] ENDARTERECTOMY,CAROTID 2020-09-19 12:52:00 [facility] PROTHROMBIN TIME/INR 2020-09-19 10:22:00 [facility] APTT 2020-09-19 10:22:00 [facility] POCT-GLUCOSE METER 2020-09-19 09:06:00 [facility] CBC W/PLT COUNT & AUTO 2020-09-13 14:52:00 [facility] DIFFERENTIAL [facility] BASIC METABOLIC PANEL 2020-09-13 14:52:00 [facility] (7) [facility] PROTHROMBIN TIME/INR 2020-09-13 14:52:00 [facility] ABORH, MANUAL 2020-09-13 14:52:00 [facility] ECG 12-LEAD 2020-09-13 14:37:40 Unknown, [id number] Doctor [facility] Plan of Care Planned Activity Planned [...] Ce nter Vaccine (#1)] Future Scheduled 2023-06-14 Influenza Vaccine (#1) C [...] breast Medical C enter (procedure) [code = 354986029] Future Scheduled 1951 Screening for malignant [facility] Test 00:00:00 neoplasm of colon Medical Ce nter (procedure) [code = 903197448] Future Scheduled 1951 Screening for malignant [facility] Test 00:00:00 neoplasm of breast Medical C enter (procedure) [code = 617025418] Future Scheduled 1951 CT Colonography (combo) [facility] Test 00:00:00 [code = CT Colonography [facility] (combo)] Future Scheduled 1951 Screening for malignant [facility] Test 00:00:00 neoplasm of colon Medical Ce nter (procedure) [code = 784793349] Future Scheduled 1951 Screening for malignant [facility] Test 00:00:00 neoplasm of colon Medical Ce nter (procedure) [code = 651484489] Future Scheduled 1951 DXA SCAN [code = DXA [facility] Test 00:00:00 SCAN] [facility] Future Scheduled 1951 Screening for malignant [facility] Test 00:00:00 neoplasm of colon Medical Ce nter (procedure) [code = 114437180] Future Scheduled 1951 Screening for malignant [facility] Test 00:00:00 neoplasm of colon Medical Ce nter (procedure) [code = 116787258] Future Scheduled 1951 Sigmoidoscopy [code = [facility] Sigmoidoscopy] [facility] Brisae r Future Scheduled 1951 Screening for malignant [facility] Test 00:00:00 neoplasm of breast Medical C enter (procedure) [code = 264174963] Future Scheduled 1951 CT Colonography (combo) [facility] Test 00:00:00 [code = CT Colonography [facility] (combo)] Future Scheduled 1951 Screening for malignant [facility] Test 00:00:00 neoplasm of colon Medical Ce nter (procedure) [code = 788352624] Future Scheduled 1951 Screening for malignant [facility] Test 00:00:00 neoplasm of colon Medical Ce nter (procedure) [code = 433809535] Future Scheduled 1951 DXA SCAN [code = DXA [facility] Test 00:00:00 SCAN] [facility] Future Scheduled 1951 Screening for malignant [facility] Test 00:00:00 neoplasm of colon Medical Ce nter (procedure) [code = 272936754] Future Scheduled 1951 Screening for malignant [facility] Test 00:00:00 neoplasm of colon Medical Ce nter (procedure) [code = 067024009] Future Scheduled 1951 Sigmoidoscopy [code = [facility] 00:[facility] Sigmoidoscopy] [facility] Patricia r Future Scheduled 1951 Screening for malignant [facility] Test 00:00:00 neoplasm of breast Medical C enter (procedure) [code = 001558619] Future Scheduled 1951 CT Colonography (combo) [facility] Test 00:00:00 [code = CT Colonography [facility] (combo)] Future Scheduled 1951 Screening for malignant [facility] Test 00:00:00 neoplasm of colon Medical Ce nter (procedure) [code = 871416612] Future Scheduled 1951 Screening for malignant [facility] Test 00:00:00 neoplasm of colon Medical Ce nter (procedure) [code = 600414251] Future Scheduled 1951 DXA SCAN [code = DXA [facility] Test 00:00:00 SCAN] [facility] Future Scheduled 1951 Screening for malignant [facility] Test 00:00:00 neoplasm of colon Medical Ce nter (procedure) [code = 155694636] Future Scheduled 1951 Screening for malignant [facility] Test 00:00:00 neoplasm of colon Medical Ce nter (procedure) [code = 749961860] Future Scheduled 1951 Sigmoidoscopy [code = [facility] 00:[facility] Sigmoidoscopy] Medical Cente r Future Scheduled 1951 Screening for malignant [facility] Test 00:00:00 neoplasm of breast Medical C enter (procedure) [code = 813809223] Future Scheduled 1951 CT Colonography (combo) [facility] Test 00:00:00 [code = CT Colonography [facility] (combo)] Future Scheduled 1951 Screening for malignant [facility] Test 00:00:00 neoplasm of colon Medical Ce nter (procedure) [code = 920734852] Future Scheduled 1951 Screening for malignant [facility] Test 00:00:00 neoplasm of colon Medical Ce nter (procedure) [code = 013791179] Future Scheduled 1951 DXA SCAN [code = DXA [facility] Test 00:00:00 SCAN] [facility] Future Scheduled 1951 Screening for malignant [facility] Test 00:00:00 neoplasm of colon Medical Ce nter (procedure) [code = 090308579] Future Scheduled 1951 Screening for malignant [facility] Test 00:00:00 neoplasm of colon Medical Ce nter (procedure) [code = 660859084] Future Scheduled 1951 Sigmoidoscopy [code = [facility] 00:[facility] Sigmoidoscopy] Medical Cente r Future Scheduled 1951 Screening for malignant [facility] Test 00:00:00 neoplasm of breast Medical C enter (procedure) [code = 754025096] Future Scheduled 1951 CT Colonography (combo) [facility] Test 00:00:00 [code = CT Colonography [facility] (combo)] Future Scheduled 1951 Screening for malignant [facility] Test 00:00:00 neoplasm of colon Medical Ce nter (procedure) [code = 100281031] Future Scheduled 1951 Screening for malignant [facility] Test 00:00:00 neoplasm of colon Medical Ce nter (procedure) [code = 936795398] Future Scheduled 1951 DXA SCAN [code = DXA [facility] Test 00:00:00 SCAN] [facility] Future Scheduled 1951 Screening for malignant [facility] Test 00:00:00 neoplasm of colon Medical Ce nter (procedure) [code = 778161742] Future Scheduled 1951 Screening for malignant [facility] Test 00:00:00 neoplasm of colon Medical Ce nter (procedure) [code = 838903891] Future Scheduled 1951 Sigmoidoscopy [facility]code [facility] Screening for malignant [facility] Test 00:00:00 neoplasm of breast Medical C enter (procedure) [code = 273376490] Future Scheduled 1951 CT Colonography (combo) [facility] Test 00:00:00 [code = CT Colonography [facility] (combo)] Future Scheduled 1951 Screening for malignant [facility] Test 00:00:00 neoplasm of colon Medical Ce nter (procedure) [code = 316936602] Future Scheduled 1951 Screening for malignant [facility] Test 00:00:00 neoplasm of colon Medical Ce nter (procedure) [code = 904389788] Future Scheduled 1951 DXA SCAN [code = DXA [facility] Test 00:00:00 SCAN] [facility] Future Scheduled 1951 Screening for malignant [facility] Test 00:00:00 neoplasm of colon Medical Ce nter (procedure) [code = 231908329] Future Scheduled 1951 Screening for malignant [facility] Test 00:00:00 neoplasm of colon Medical Ce nter (procedure) [code = 612116566] Future Scheduled 1951 Sigmoidoscopy [code = [facility] 00:[facility] Sigmoidoscopy] [facility] Cent[facility] r Future Scheduled 1951 Screening for malignant [facility] Test 00:00:00 neoplasm of breast Medical C enter (procedure) [code = 282610151] Future Scheduled 1951 CT Colonography (combo) [facility] Test 00:00:00 [code = CT Colonography [facility] (combo)] Future Scheduled 1951 Screening for malignant [facility] Test 00:00:00 neoplasm of colon Medical Ce nter (procedure) [code = 354774854] Future Scheduled 1951 Screening for malignant [facility] Test 00:00:00 neoplasm of colon Medical Ce nter (procedure) [code = 134923508] Future Scheduled 1951 DXA SCAN [code = DXA [facility] Test 00:00:00 SCAN] [facility] Future Scheduled 1951 Screening for malignant [facility] Test 00:00:00 neoplasm of colon Medical Ce nter (procedure) [code = 696763531] Future Scheduled 1951 Screening for malignant [facility] Test 00:00:00 neoplasm of colon Medical Ce nter (procedure) [code = 007982511] Future Scheduled 1951 Sigmoidoscopy [code = [facility] 00:[facility] Sigmoidoscopy] [facility] Future Scheduled 1951 Screening for malignant [facility] Test 00:00:00 neoplasm of breast Medical C enter (procedure) [code = 107184156] Future Scheduled 1951 Screening for malignant [facility] Test 00:00:00 neoplasm of colon Medical Ce nter (procedure) [code = 994224113] Future Scheduled 1951 Screening for malignant [facility] Test 00:00:00 neoplasm of breast Medical C enter (procedure) [code = 298457707] Future Scheduled 1951 CT Colonography (combo) [facility] Test 00:00:00 [code = CT Colonography [facility] (combo)] Future Scheduled 1951 Screening for malignant [facility] Test 00:00:00 neoplasm of colon Medical Ce nter (procedure) [code = 165288241] Future Scheduled 1951 Screening for malignant [facility] Test 00:00:00 neoplasm of colon Medical Ce nter (procedure) [code = 353214138] Future Scheduled 1950 DXA SCAN [code = DXA [facility] 00:[facility]00 SCAN] [facility] Future Scheduled 1951 Screening for malignant [facility] 00:00:00 neoplasm of colon Medical Ce nter (procedure) [code = 222783976] Future Scheduled 1951 Screening for malignant [facility] Test 00:00:00 neoplasm of colon Medical Ce nter (procedure) [code = 696930996] Future Scheduled 1950 Sigmoidoscopy [facility]code = [facility]] Medical Cente r Encounters Start End Encounter Admission Attending Care Care Encounter Source Date/Time Date/Time Type Type Clinicians Facility Department ID 2023-06-28 Outpatient Lao, STLMLC STLMLC [id number] Common 15:39:00 Shant [id number] [facility] 2023-06-25 Outpatient Lao, STLMLC STLMLC [id number] Common 07:53:00 Shant [id number] [facility] 2023-06-24 Outpatient Lao, STLMLC STLMLC [id number] Common 13:48:00 Shant [id number] [facility] 2023-06-20 Outpatient Lao, STLMLC STLMLC [id number] Common 16:30:00 Shant [id number] [facility] 2023-05-22 Outpatient Lao, STLMLC STLMLC [id number] Common 13:41:00 Shant 19847 [facility] 2023-05-16 Outpatient Lao, STLMLC STLMLC [id number] Common 07:59:01 Shant 79623 [facility] 2022-11-14 Outpatient Lao, STLMLC STLMLC [id number] Common 13:33:00 Shant 76734 [facility] 2022-08-02 Outpatient Lao, STLMLC STLMLC [id number] Common 11:32:02 Shant 22336 [facility] 2022-04-23 Outpatient Lao, STLMLC STLMLC [id number] Common 11:04:01 Shant 00075 [facility] 2022-01-03 Outpatient Lao, STLMLC STLMLC [id number] Common 10:05:03 Shant [facility] 2022-01-01 Outpatient Lao, STLMLC STLMLC [id number] Common 13:11:04 Shant [facility] 2021-11-08 Outpatient Lao, STLMLC STLMLC [id number] Common 14:15:27 Shant [id number] [facility] 2021-11-08 Outpatient Lao, STLMLC STLMLC [id number] Common 14:10:48 Shant [id number] [facility] 2021-11-08 Outpatient Lao, STLMLC STLMLC [id number] Common 14:04:07 Shant 80211 [facility] 2021-11-08 Outpatient STLMLC STLMLC [id number] Common 13:49:07 [id number] [facility] 2021-08-14 Emergency [facility] [id number] Univers 20:32:56 [facility] 2021 Inpatient [facility] Surgery [id number] [facility] 18:22:15 JUAN 2023-07-17 2023-07-17 Outpatient [facility] [id number] [place] 13:00:00 13:00:00 [facility] 2023-07-16 2023-07-16 Outpatient BERTA, [facility] [id number] [place] 11:00:00 11:00:00 [facility] 2023-06-26 2023-06-26 Telemedici Amalia, [facility] [id number] [place] 14:00:00 15:00:00 ne Patricia AZEVEDO 350.1.13.58 [facility] [id number] [id number] 8 2023-06-25 2023-06-25 Outpatient [facility] [id number] [place] 14:00:00 14:00:00 [facility] 2023-02-19 2023-02-19 Emergency Gisella ISAACS, [facility] [id number] Univers 15:55:00 21:46:00 ALDEN schulz [facility] 2023-02-19 2023-02-19 Emergency Shital, [facility] [[email or web address]] [id number] Univers 15:55:00 21:46:00 Alden BOWERS 350.1.13.10 jorden lawrence shi ARDON 4.2.7.2.686 [facility] [phone] [place] [id number] [place] 2022-11-16 2022-11-16 (TEL) STLMLC STLMLC [id number] Co mmon 00:00:00 00:00:00 [facility] 2022-11-15 2022-11-15 OFFICE STLMLC STLMLC [id number] Co mmon 00:00:00 00:00:00 VISIT [facility] PT - LEVEL 4 [facility] 2022-11-15 2022-11-15 (TEL) STLMLC STLMLC [id number] Co mmon 00:00:00 00:00:00 [facility] 2022-10-19 2022-10-19 OFFICE STLMLC STLMLC [id number] Co mmon 00:00:00 00:00:00 VISIT EST Spir it PT LEVEL 3 - [facility] 2022-10-17 2022-10-17 (TEL) STLMLC STLMLC [id number] Co mmon 00:00:00 00:00:00 [facility] 2022-09-04 2022-09-04 (TEL) STLMLC STLMLC [id number] Co mmon 00:00:00 00:00:00 [facility] 2022-09-04 2022-09-04 (TEL) STLMLC STLMLC [id number] Co mmon 00:00:00 00:00:00 [facility] 2022-08-20 2022-08-20 (TEL) STLMLC STLMLC [id number] Co mmon 00:00:00 00:00:00 [facility] 2022-08-15 2022-08-15 (TEL) STLMLC STLMLC [id number] Co mmon 00:00:00 00:00:00 [facility] 2022-08-06 2022-08-06 OFFICE STLMLC STLMLC [id number] Co mmon 00:00:00 00:00:00 VISIT [facility] ESTAB PT - CHI LEVEL 4 [facility] 2022-08-06 2022-08-06 (TEL) STLMLC STLMLC [id number] Co mmon 00:00:00 00:00:00 [facility] 2022-07-17 2022-07-17 (TEL) STLMLC STLMLC [id number] Co mmon 00:00:00 00:00:00 [facility] 2022-07-10 2022-07-10 (TEL) STLMLC STLMLC [id number] Co mmon 00:00:00 00:00:00 [facility] 2022-07-05 2022-07-05 (TEL) STLMLC STLMLC [id number] Co mmon 00:00:00 00:00:00 [facility] 2022-07-05 2022-07-05 (HOSP F/U) STLMLC STLMLC [id number] Common 00:00:00 00:00:00 [facility] 2022-07-02 2022-07-02 (TEL) STLMLC STLMLC [id number] Co mmon 00:00:00 00:00:00 [facility] 2022-04-23 2022-04-23 OFFICE STLMLC STLMLC [id number] Co mmon 00:00:00 00:00:00 VISIT [facility] PT - CHI LEVEL 4 [facility] 2022-04-20 2022-04-20 (TEL) STLMLC STLMLC [id number] Co mmon 00:00:00 00:00:00 [facility] 2022-01-04 2022-01-04 OFFICE STLMLC STLMLC [id number] Co mmon 00:00:00 00:00:00 VISIT [facility] PT - CHI LEVEL 4 [facility] 2022-01-04 2022-01-04 SUB ANNUAL STLMLC STLMLC [id number] Common 00:00:00 00:00:00 MCR Spirit WELLNESS - CHI VISIT [facility] 2021-12-21 2021-12-21 (TEL) STLMLC STLMLC [id number] Co mmon 00:00:00 00:00:00 [facility] 2021-11-20 2021-11-20 (TEL) STLMLC STLMLC [id number] Co mmon 00:00:00 00:00:00 [facility] 2021-10-30 2021-10-30 (TEL) STLMLC STLMLC [id number] Co mmon 00:00:00 00:00:00 [facility] 2021-09-28 2021-09-28 OFFICE STLMLC STLMLC [id number] Co mmon 00:00:00 00:00:00 VISIT [facility] PT - CHI LEVEL 4 [facility] 2021-08-31 2021-08-31 (TEL) STLMLC STLMLC [id number] Co mmon 00:00:00 00:00:00 [facility] 2021-08-25 2021-08-25 OFFICE STLMLC STLMLC [id number] Co mmon 00:00:00 00:00:00 VISIT EST Spir it PT LEVEL 3 [facility] 2021-08-22 2021-08-22 (TEL) STLMLC STLMLC [id number] Co mmon 00:00:00 00:00:00 [facility] 2021-08-07 2021-08-07 (TEL) STLMLC STLMLC [id number] Co mmon 00:00:00 00:00:00 [facility] 2021-07-26 2021-07-26 OFFICE STLMLC STLMLC [id number] Co mmon 00:00:00 00:00:00 VISIT [facility] PT - CHI LEVEL 4 [facility] 2021-07-23 2021-07-23 (TEL) STLMLC STLMLC [id number] Co mmon 00:00:00 00:00:00 [facility] 2021 2021 (TEL) STLMLC STLMLC [id number] Co mmon 00:00:00 00:00:00 [facility] 2021-06-28 2021-06-28 (TEL) STLMLC STLMLC [id number] Co mmon 00:00:00 00:00:00 [facility] 2021-06-28 2021-06-28 OFFICE STLMLC STLMLC [id number] Co mmon 00:00:00 00:00:00 VISIT NEW Spir it PT LEVEL 4 - [facility] 2021-06-26 2021-06-26 Outpatient R PRIYANK [facility] [id number] Univers 13:45:00 13:45:00 UTE schulz [facility] 2021-06-20 2021-06-20 [facility] [id number] Univers 15:14:01 15:29:01 Visit Cinthia S [employer] 350.1.13.10 it y of [place] 4.2.7.2.686 Lorenzo as Yuri?Blea [phone] Ri jose felix [address] [place] [address] [facility] 2021-06-20 2021-06-20 Outpatient R RADHA [facility] [id number] Univers 15:00:00 15:00:00 CINTHIA schulz [facility] 2021-06-20 2021-06-20 Telephone [facility] [id number] Univers 00:00:00 00:00:00 Cinthia Duong [employer] 350.1.13.10 it y of [place] 4.2.7.2.686 Lorenzo as Yuri?Blea [phone] Ri jose felix [address] [place] [address] [facility] 2021-06-19 2021-06-19 Telephone Priyank [facility] [[email or web address]] [id number] Univers 00:00:00 00:00:00 [facility] 350.1.13.10 it y of [place] 4.2.7.2.686 Lorenzo as Yuri?Blea [phone] Ri jose felix [address] [place] [address] [facility] 2021-06-18 2021-06-18 Emergency Yaw [facility] [[email or web address]] [id number] Univers 10:12:00 11:17:00 Carol Ann Bowers 350.1.13.10 ity of [place] 4.2.7.2.686 [facility] [phone] [facility] [address] 2021-06-18 2021-06-18 [facility] [[email or web address]] [id number] Univers 10:12:00 11:17:00 Carol Ann Bowers 350.1.13.10 ity of [place] 4.2.7.2.686 [facility] [phone] [facility] [address] 2021-04-26 2021-04-26 Letter ONEAL Barber [id number] Univers 00:00:00 00:00:00 (Out) Charlette JOHNSY 350.1.13.10 i ty of [facility] 4.2.7.2.686 Lorenzo as [phone] [facility] [address] 2021-04-06 2021-04-06 Orders Doctor ONEAL [id number] [id number] Univers 00:00:00 00:00:00 Only Unassigned, HARVEY 350.1.13.10 ity of [place] [address]2.7[address]2.686 Lorenzo as [phone] [facility] [address] 2020-10-03 2020-10-04 Office [facility] [id number] 10:58:57 06:55:34 Visit [facility] 2020-10-03 2020-10-03 Outpatient [facility] [id number] [facility] 00:00:00 00:00:00 JUAN 2020-09-19 2020-09-20 Hospital [facility] [id number] 08:52:00 16:45:00 Encounter [facility] 2020-09-19 2020-09-19 Anesthesia Abhi [facility] [id number] 13:06:00 15:11:00 Event Maribell Yepez [facility] 2020-09-19 2020-09-19 [facility] [id number] 11:00:00 14:00:00 [facility] 2020-09-16 2020-09-16 Abstract Paulina [facility] [id number] 00:00:00 00:00:00 [facility] 2020-09-13 2020-09-13 Office CHIRAG Gallardo [facility] [id number] 14:23:27 14:53:27 Visit [facility] 2020-09-13 2020-09-13 Outpatient HUSSEIN CLARKE SLEIvonne [id number] SLE 14:23:27 14:23:27 JUAN 2020-09-13 2020-09-13 Orders [facility] [id number] 00:00:00 00:00:00 [facility] 2019-12-02 2019-12-02 Outpatient Ige-Odunuga VFP VFP [id number] [place] 07:29:00 07:29:00 _J_ [id number] [facility] e Results Test Description Test Time Test Comments Results Result Comments Source TROPONIN I 2023-02-19 23:50:59 Test Item Value Reference Range Interpretation Comme nts TROPONIN I (test code = 9476011860) 0.002 ng/mL <=0.034 GABRIELA (test code = [...] biotin. Lab Interpretation (test code = Normal 46951-4) [id number] 23:47:38 Test Item Value Reference Range Interpretation Comments NT-proBNP (test code = 81 pg/mL <=125 5252414624) GABRIELA (test code = GABRIELA) Biotin has been reported to cause a negative bias, interpret results relative to patient's use of biotin. Lab Interpretation (test Normal code = 87626-5) [facility] (69395)2023-02-19 23:41:37 Test Item Value Reference Range Interpretation Comments NA (test code = 137 mmol/L 135-145 7513086996) K (test code = 4.3 mmol/L 3.5-5.0 2390037165) CL (test code = 100 mmol/L 98-108 6649282389) CO2 TOTAL (test code = 27 mmol/L 23-31 6221849874) AGAP (test code = 10 2-16 1126304229) BUN (test code = 14 mg/dL 7-23 7501234565) GLUCOSE (test code = 196 mg/dL 70-110 H 0109375854) CREATININE (test code = 0.65 mg/dL 0.50-1.04 0694433002) TOTAL BILI (test code = 1.0 mg/dL 0.1-1.2 2799931231) CALCIUM (test code = 8.9 mg/dL 8.6-10.6 7344965315) T PROTEIN (test code = 7.9 g/dL 6.3-8.2 0905724676) ALBUMIN (test code = 3.8 g/dL 3.5-5.0 4481071412) ALK PHOS (test code = 89 U/L 34-122 6527704551) ALTv (test code = 33 U/L 5-35 1742-6) AST(SGOT) (test code = 39 U/L 13-40 4103025157) eGFR (test code = 89.9 mL/min/1.73m2 3501025792) GABRIELA (test code = GABRIELA) Association of [...] tests). Lab Interpretation Abnormal (test code = 14620-4) [facility]23-[facility]-09 23:41:37 Test Item Value Reference Range Interpretation Comments LIPASE (test code = 0232301787) 111 U/L 0-220 Lab Interpretation (test code = Normal 51951-8) [facility] WITH [id number] 23:32:16 Test Item Value Reference Range Interpretation Comments WBC (test code = 12.07 See_Comment H [Automated 9990-2) message] The sy stem which generated this result transmitted reference range : 4.30 - 11.10 10*3/?L. The reference range was not used to interpret this result as normal/abnormal . RBC (test code = 4.49 See_Comment [Automated 449-8) message] The sy stem which generated this [...] RDW-SD (test code = 48.6 fL 39.0-49.9 02379-7) RDW-CV (test code = 12.9 % 12.0-15.5 788-0) PLT (test code = 236 See_Comment [Automated 777-3) message] The sy stem which generated this result transmitted reference range : 166 - 358 10*3/ ?L. The reference r rita was not used to interpret this result as normal/abnormal . MPV (test code = 10.9 fL 9.5-12.9 81124-9) NRBC/100 WBC (test 0.0 See_Comment [Automat ed code = 4764187129) message] The system which generated this result transmitted reference range : 0.0 - 10.0 /100 WBCs. The refer ence range was not u sed to interpret th is result as normal/abnormal . NRBC x10^3 (test code See_Comment [Auto mated = 5268785413) message] The s ystem which generated this result transmitted reference range : 10*3/?L. The reference range was not used to interpret this result as normal/abnormal . GRAN MAT (NEUT) % 66.4 % (test code = 770-8) IMM GRAN % (test code 0.50 % = 3031688395) LYMPH % (test code = 22.9 % 736-9) MONO % (test code = 7.9 % 5905-5) EOS % (test code = 1.6 % 713-8) BASO % (test code = 0.7 % 706-2) GRAN MAT x10^3(ANC) 8.03 10*3/uL 1.88-7.09 H (test code = 5063367641) IMM GRAN x10^3 (test 0.06 10*3/uL 0.00-0.06 code = 4458460720) LYMPH x10^3 (test code 2.76 10*3/uL 1.32-3.29 = 731-0) MONO x10^3 (test code 0.95 10*3/uL 0.33-0.92 H = 742-7) EOS x10^3 (test code = 0.19 10*3/uL 0.03-0.39 711-2) BASO x10^3 (test code 0.08 10*3/uL 0.01-0.07 H = 704-7) Lab Interpretation Abnormal (test code = 56575-1) [facility] FERR[facility]IN [id number] 00:00:00 Test Item Value Reference Range Interpretation Comments % SATURATION (test 5 % (calc) See_Comment L [Automat ed message] code = 2502-3) The system [facility] generated this result transmit zoë reference range : 16-45 % (calc). The reference range was not used to interpret this result as normal/abnormal . FERRITIN (test code 4 ng/mL See_Comment L [Automa zoë message] = 2276-4) The system [facility] generated this result transmit zoë reference range [...] d message] code = 2498-4) The system [facility] generated this result transmit zoë [...] this result transmit zoë reference range : 5235-3316 cells /uL. The reference r rita was not used to interpret this result as normal/abnormal . BASOPHILS (test code 0.9 % N = 706-2) EOSINOPHILS (test 6.0 % N code = 713-8) HEMATOCRIT (test 26.5 % See_Comment L [Automated message] code = 4544-3) The system [facility] generated this result transmit zoë reference range : 35.0-45.0 %. Th e reference range was not used to interpret this result as normal/abnormal . HEMOGLOBIN (test 7.6 g/dL See_Comment L [Automated message] code = 718-7) The system [facility] generated this result transmit zoë reference range : 11.7-15.5 g/dL. The reference range was not used to interpret this result as normal/abnormal . LYMPHOCYTES (test 25.4 % N code = 736-9) MCH (test code = 23.2 pg See_Comment L [Automated message] 785-6) The system [facility] generated this result transmit zoë reference range : 27.0-33.0 pg. T he reference range was not used to interpret this result as normal/abnormal . MCHC (test code = 28.7 g/dL See_Comment L [Automate d message] 786-4) The system [facility] generated this result transmit zoë reference range : 32.0-36.0 g/dL. The reference range was not used to interpret this result as normal/abnormal . MCV (test code = 81.0 fL See_Comment N [Automated message] 787-2) The system [facility] generated this result transmit zoë reference range : 80.0-100.0 fL. The reference range was not used to interpret this result as normal/abnormal . MONOCYTES (test code 8.6 % N = 5905-5) MPV (test code = 9.6 fL See_Comment N [Automated message] 776-5) The system [employer] generated this result transmit zoë reference range : 7.5-12.5 fL. Th e reference range was not used to interpret this result as normal/abnormal . NEUTROPHILS (test 59.1 % N code = 770-8) PLATELET COUNT (test 321 See_Comment N [Autom ated message] code = 777-3) Thousand/uL The system [employer] generated this result transmit zoë reference range : 140-400 Thousan d/uL. The reference r rita was not used to interpret this result as normal/abnormal . RDW (test code = 14.7 % See_Comment N [Automated message] 788-0) The system [employer] generated this result transmit zoë reference range [...] interpret this result as normal/abnormal . PATHOLOGY [id number] 00:00:00PATHOLOGISTCONSULT, SPECIMEN A 2021-07-22 00:00:00A COMMENTA DIAGNOSISA MICRO DESCRIPTIONA SOURCELipid Panel With LDL/HDL [id number] 00:00:00 Test Item Value Reference Range Interpretation Comments Cholesterol, Total 188 mg/dL See_Comment [Automat ed message] (test code = 2093-3) The sys tem which generated this result transmitted ref erence range: 100-199 mg/dL. The reference r rita was not used to interpret this result as normal/abnor mal. HDL Cholesterol (test 52 mg/dL See_Comment [Auto mated message] code = 2085-9) The system [employer] generated this result transmitted ref erence range: >39 mg/d L. The reference range was not used to int erpret this result as normal/abnormal . Triglycerides (test 85 mg/dL See_Comment [Automa zoë message] code = 2571-8) The system [employer] generated this result transmitted ref erence range: 0-149 mg /dL. The reference r rita was not used to interpret this result as normal/abnor mal. Microalbumin/Creat Ratio, Random [id number] 00:00:00 Test Item Value Reference Range Interpretation Comments Creatinine, Urine 103.2 mg/dL Not Estab. mg/dL (test code = 2161-8) Alb/Creat Ratio 28 mg/g creat See_Comment [Automated message] (test code = The system [employer] 88644-5) generated this result transmitted ref erence range: 0-29 mg/ g creat. The refe rence range was not u sed to interpret this result as normal/abnor mal. Albumin, Urine 29.2 ug/mL Not Estab. ug/mL (test code = 73205-5) Hemoglobin [id number] 00:00:00 Test Item Value Reference Range Interpretation [...] L [Autom ated message] 1751-7) The system [employer] generated this result transmit zoë reference range [...] [Automated message] code = 1742-6) The system [facility] generated this result transmit zoë reference range : 0-32 IU/L. The reference range was not used to interpret this result as normal/abnormal . AST (SGOT) (test 12 IU/L See_Comment [Automated message] code = 1920-8) The system [facility] generated this result transmit zoë reference range : 0-40 IU/L. The reference range was not used to interpret this result as normal/abnormal . Bilirubin, Total 0.3 mg/dL See_Comment [Automated message] (test code = 1974-) The [facility] tem which generated this result transmit zoë reference range : 0.0-1.2 mg/dL. The reference range was not used to interpret this result as normal/abnormal . BUN (test code = 12 mg/dL See_Comment [Automated message] 3094-0) The system [facility] generated this result transmit zoë reference range : 8-27 mg/dL. The reference range was not used to interpret this result as normal/abnormal . BUN/Creatinine Ratio 21 12-28 (test code = 3097-3) Calcium (test code = 8.6 mg/dL See_Comment L [Autom ated message] 18302-6) The system [facility] generated this result transmit zoë reference range [...] [Automa zoë message] = 2074-0) The system [facility] generated this result transmit zoë reference range : 96-106 mmol/L. The reference range was not used to interpret this result as normal/abnormal . Creatinine (test 0.57 mg/dL See_Comment [Automated message] code = 2160-0) The system [facility] generated this result transmit zoë reference range : 0.57-1.00 mg/dL . The reference range was not used to interpret this result as normal/abnormal . eGFR If Africn Am 109 See_Comment [Automate d message] (test code = mL/min/1.73 The system [employer] 10306-9) generated this result transmit zoë reference range : >59 mL/min/1.73. Th e reference range was not used to interpret this result as normal/abnormal . eGFR If NonAfricn Am 95 mL/min/1.73 See_Comment [Aut omated message] (test code = The system [employer] 07666-1) generated this result transmit zoë reference range : >59 mL/min/1.73. Th e reference range was not used to interpret this result as normal/abnormal . Globulin, Total 3.9 g/dL See_Comment [Automated message] (test code = The system [employer] 66806-2) generated this result transmit zoë reference range : 1.5-4.5 g/dL. T he reference range was not used to interpret this result as normal/abnormal . Glucose (test code = 162 mg/dL See_Comment H [Autom ated message] 2345-7) The system [employer] generated this result transmit zoë reference range : 65-99 mg/dL. Th e reference range was not used to interpret this result as normal/abnormal . Potassium (test code 4.2 mmol/L See_Comment [Autom ated message] = 2823-3) The system [employer] generated this result transmit zoë reference range : 3.5-5.2 mmol/L. The reference range was not used to interpret this result as normal/abnormal . Protein, Total (test 7.5 g/dL See_Comment [Autom ated message] code = 2885-2) The system [facility] generated this result transmit zoë reference range : 6.0-8.5 g/dL. T he reference range was not used to interpret this result as normal/abnormal . Sodium (test code = 140 mmol/L See_Comment [Automa zoë message] 2951-2) The system [employer] generated this result transmit zoë reference range : 134-144 mmol/L. The reference range was not used to interpret this result as normal/abnormal . Uric Acid, [id number] 00:00:00 Test Item Value Reference Range Interpretation Comments Uric Acid (test 3.8 mg/dL See_Comment [Automated message] The code = 3084-1) system which generated this result tra nsmitted reference range : 3.0-7.2 mg/dL. The refe rence range was not u sed to interpret this result as normal/abnormal . CBC With Differential/[id number] 00:00:00 Test Item Value Reference Range Interpretation [...] 27.2 % See_Comment L [Auto mated = 6934-3) message] The sy stem which generated this result transmitted reference range : 34.0-46.6 %. Th e reference range was not used to interpret this result as normal/abnormal . Hematology Comments: (test code = 81606-5) Hemoglobin (test code 7.9 g/dL See_Comment L [Auto mated = 398-7) message] The sy stem which generated this result transmitted reference range : 11.1-15.9 g/dL. The reference range was not used to interpret this result as normal/abnormal . Immature Cells (test code = UNLOINC) Immature Grans (Abs) 0.0 x10E3/uL See_Comment [Autom ated (test code = 33881-3) messag e] The system which generated this result transmitted reference range : 0.0-0.1 x10E3/u L. The reference r rita was not used to interpret this result as normal/abnormal . Immature Granulocytes 0 % Not Estab. % (test code = 39477-9) Lymphs (test code = 27 % Not [...] as normal/abnormal . NRBC (test code = 92083-1) Platelets (test code 319 x10E3/uL See_Comment [Autom ated = 777-3) message] The sy stem which generated this result transmitted reference range : 150-450 x10E3/u L. The reference r rita was not used to interpret this result as normal/abnormal . RBC (test code = 3.38 x10E6/uL See_Comment L [Automate d 979-8) message] The sy stem which generated this result transmitted reference range : 3.77-5.28 x10E6 /uL. The reference r rita was not used to interpret this result as normal/abnormal . RDW (test code = 15.1 % See_Comment [Automated 088-0) message] The sy stem which generated this result transmitted reference range : 11.7-15.4 %. Th e reference range was not used to interpret this result as normal/abnormal . WBC (test code = 9.6 x10E3/uL See_Comment [Automated 2790-2) message] The sy stem which generated this result transmitted reference range : 3.4-10.8 x10E3/ uL. The reference r rita was not used to interpret this result as normal/abnormal . TSH reflex to [id number] 00:00:00 Test Item Value Reference Range Interpretation Comments TSH (test code = 1.260 uIU/mL See_Comment [Automated message] The 01004-7) system which ge nerated this result tra nsmitted reference range : 0.450-4.500 uIU /mL. The reference range was not used to interpr et this result as normal/abnormal . Tissue [id number] 18:50:00 Test Item Value Reference Range Interpretation Comments Case Report (test code Surgical Pathology = 104) Report Case: [id number] Authorizing Provider: Juan Gallardo, Collected: 09/19/2020 02:54 PM Ordering Location: [facility] Received: 09/19/2020 03:32 PM PERIOPERATIVE SERVICES Pathologist: Jarad Menchaca MD Specimen: Plaque, LEFT CAROTID ARTERY PLAQUE DIAGNOSIS (test code = u3qgtKMiPYErw8ryCKJrePZ 3220) uZzEwMzNcZnRuYmpcdWMxIH tccnRmMVxlcGljOTIwMFxhb oByIICyjHTqQ7EayavoIBwd WI8kCU0wwWgemVPpmUDyKKJ qOuUzg6mcb627fQCya9teDU LLelqviVf3lOlfJ36et5F8C iweK40dmZYoJRboeBKbdudf czIwIEFSVEVSWSwgTEVGVCB DQVJPVElELCBFTkRBUlRFUk IJKA4SEBfuvAHrWDVAVKUNN fzVQYAIBVVEV6UPHWERE4DP ShSVGZQYUJTzISEpme70YRE 8BnBju2I5IJT9RIMqXWWzg0 lcZGVmbGFuZzEwMzNcZnRuY hbczTCsZUZxOlRxh8hoy012 aVUbw5dgYTFmCbR6lHZtKEC bbHUoA179JFOkPXezm0ctl9 OaVNXubQVoj5V0AFNSjwpuo Ya4lVbqD79lc9Q5DhsvD6we OOBhCBOrE6BwHA1hNGYvOaf 1RWV0TAU6AEMmAUPtR5AwYR 1tVDPjgJGvWSf1o0szrFquL JCmHYC5f5hnLLaaduHiEG1y yk1qoKq4o0nbwdEhNXBsKHY fiUZJQHLuF8DbhIdmNp6qkI i5cXkxMiaxXJN2Kkj5FZ9jm p71obf2lUdqKGAxstypEdY9 NNsqEKNvfiskNZo4KUfsNSX nnPE8OGGiqZIzL0SwEYIjXT 7gyxf7FUX8MYpuSBNnZxN1B GWpzZJnNPElrTuvFMlug113 OZO7WdJkZZ0mV4Vqs6I2cK2 maXRcZGVmdGFiNzIwXGZvcm 3azWBlRTmgi3XjJKP9gtZ0w COmpZVvMMSlIeH4IGpoVR6u ni38NVIqBXN2hv9joQCubEb qvtYzpKSmDPftN1UvZLPnf2 92BFWkR8TmTWMzr8I3slXfR wTrWHUmiQP2amN2VXTwXC0m biwne8hlDWrrTYrqSLTsrdW 9thP9XLYokXOxP3IxtP1eCW VbRW2mjvrtf7iqVWY0UGjwN QObJQP1BgJgUVQjp4Oqlux6 OiEbk8EooKHbNQynE45nc71 8BQGnljNiY3xptKFxgauaeR DlfhxyDSnhjvW1WNXwNOikd asoEULcJFtuA9orScJoIEMq oInnQVpei7QiNLSgLXUnMcD cvZQiDBRhLgg6IBLxfXHhHV GqRoCmS9lnrzdyAzZJSUHnh 6ucI7eoyUNZuAXsP9GbCZno seZwADzfFFzoPAMsWFK0DB7 8PxxgILBjbl28 CPT Code(s) (test code u6ybnYBnQLApoPR7GyCkTUV = 3357) au2kac4GkyDEqpCXdSBtqvH DrntKwhb00uAC1aT39YF9lG PDfBvO0BPEpksQ2Ocw1TVSl ERMesGZmI923g6fyw6mogaX xiHF6hFtyYQBmFXAwTCxjKK KfKrIcOLfsOFD2ZAz1IcSxG HBhcn0= CLINICAL HISTORY (test x8pdfNXvITOyfGT5GpYtBZH code = 3356) tp7sgp9QwnYEtfIZmZNfthP RlvkInnw60qTK1fB31HP9kL TMsEgK2TNOksnU5Iaf5NHPe XCGewHMgV532s7inn7mefeL nnIW8hPcfIVUpGXSyHCreRU WwSiRkUFGki2BeFBfiF54zg 2lzOiAgbGVmdCBjYXJvdGlk KIH9WK1ny2rwVGTyuy8= SPECIMEN SOURCE (test h7kkwNUiBLEynHM4DvCnZPV code = 3377) ee1rct1WzeARmzECsBLjtiJ YzbhXgig79pHF2tN85PO9eL CGqXaA9SKHgqqY0Szv1ZQWo GYTosHPmC844g2pxk0rqsmV oeEI5vLpdNUHbDZMlEZmkHH ZzMjAgUGxhcXVlIFxwYXJ9 GROSS DESCRIPTION m5gqwLOtGOBskWJ2FpMcFBL (test code = 3366) io0ehe7IgsNFxxKCaJIwqvQ JihrDtsu18fRN5wV69RI6aA FNfGaD8SBMaepB9Nmk5CGQl IPXskTIfN059s3zpz0ovfmO kpYW6bGxoTCTtGQKySBcyMF GrPuXkCeFyFOk0DEOmFoHsk 1qzhIJuLQdjVMU8fLHnNGDw OPBjJNYcGC56T9AlthEnTOo yWTYqTWFqxD3hAF06dQVeer SraqHyLpUmYYS1KXsqdLMcm CBjYXJvdGlkIGFydGVyeSBw oORuoAWbYNodUWSmQc5zFCz rDl5jWADeCFpodeUogCvmzq BxvrUorELltENxPaW7UNtkr 3cgcGxhcXVlIHRoYXQgZGlz uVoxrZNgZ1UcX9ygoFSiiZy dsl5hXGbfBKNcLLPqgZYfGP bxGNMqvpnukBq7OINzX7Jhc 46vOWM0lcSjXGCfKIxhJOH9 WUcoq4gonA4cz5gbdtSviDN lT9RkC4ieqQVwEFYaxiPaqj 4gVGhlIHNwZWNpbWVuIGlzI IZ6Gv6rxBNlEMOrpaAlmALb MM19dHOdhWgkWb1mnS79bE5 fBDEyA4QvF3ckoNQubAargs NiwdXAYI5sICiVU9WjREtgA XJ9 MICROSCOPIC l5ohpJChEVJowIR1KxCqJBJ DESCRIPTION (test code bj9oan2JalWDacYPpTDxfbB = 3371) QeugNndb63aTR5yZ10MG7jE LApLkS1OCRzcgW9Fef5WTDe OXNiiCVeF686f7vdx9acckY czVU0zDepUAGqGUBxELysJP HaJwDtWJEdBw4zqZRwHSOwc n0= [facility] Center[facility]ise [id number] 18:50:00 Test Item Value Reference Range Interpretation Comments Case Report (test code Surgical Pathology = 104) Report Case: [id number] Authorizing Provider: Juan Gallardo, Collected: 09/19/2020 02:54 PM Ordering Location: [facility] Received: 09/19/2020 03:32 PM PERIOPERATIVE SERVICES Pathologist: Jarad Menchaca MD Specimen: Plaque, LEFT CAROTID ARTERY PLAQUE DIAGNOSIS (test code = p1iioGMqACNcz5ugGKKzpZX 3220) uZzEwMzNcZnRuYmpcdWMxIH tccnRmMVxlcGljOTIwMFxhb lBwLUSmoTAfX3MrffiyOUfj UU2lZE1trGggvKGsrQThULC pThPhn7mer564gTCql9ajGZ AWcnlhdKn3tAuiG13aj5H9G ireJ18hzGUhFMnwhWZgwtkd czIwIEFSVEVSWSwgTEVGVCB DQVJPVElELCBFTkRBUlRFUk XOPY2GPAaxrQQkINVORRISP ycUOLSXUILJK9DQROROT5BS DyLTHLUPDKAsSITpxm76ECT 5QuJlr0G8VSS6MPNlYFPfn2 lcZGVmbGFuZzEwMzNcZnRuY colkJLdYEVtGkCmt9bvb428 xMDgw4giZMAwHlI6cPHsGIU vxLVvZ917BDWmKVszs7oeb3 CmVPEyyTSgg3T5NWYAmfrsg Yk7aPxyG05si0E0LakkZ6pa TTWeCIQaV7IfXG0pQJVeYdl 7RYT2QIQ4OOLgMUNcI0UcFB 2vOZEhhHSfULo3q3duuSoiJ PAxNOM4i9caKYsizbAuEG1j go2arRs3e5ipeqFaMNNxFXV tzUWOCZVoV9DjkFqdCo2ljB d2pOwfGujdCSI9Yuz8GF6la h42uql6cPkhMAXkcqduNxX7 TOvkGCYugmxyVFx7FXbhLUT hvGG2CCMvvNErW7WrDSJqCS 1chye2QDW6MXktHORoJoI2Y OTgwJVmQHBoiEguODjwd787 SWC5HrKdIA3aC7Jri8J3aA4 maXRcZGVmdGFiNzIwXGZvcm 5ylPBzWTkju7MkPYJ6mpQ4g ABbvDDmWZYjLwG4DZhrBZ8l eo23GQVwRGA2gb5ljMWabDk rmaDnjELzIGrjA3SeWFUyb3 26GWBvV2VoFJOri2C3wiCcX iDeYQXkuUJ5coW2QWZkNM7h vcxxk3ikPJzsTJmmGWMywsF 7ueN3EYVnkXIhJ2MrjP6eWD BxEQ0itudet4ubPBU8WBjgU OCfGBH1QnCzRHGyw2Ufdaq0 GhKwm7IqnLQzWUyqX03vk98 8QQGkrsFbT3tjwDWsharmpW CrhatmGIclhuO2DHIsKOuzn aasEEFtGOrxZ8gpRaQsCMTk jKjhXFhgn8HmRIJbIURuDgN uyKTwBCMtKxl9WNMedDVyOA KcQgYuK6rahncgEfGABJZim 8fvF3lznGKVaJRoK2GdHZub yvIpSRiaFTlyGTQqBHR0WK0 4PkhlKNAstt37 CPT Code(s) (test code o9nejGOlOOZwzXB8VcGjXZD = 3357) fz6pgc6LdaCNmtANqMNogvP WrwgIerc02jBN5eC24JF7oK WTnRmR2EIUjqpB1Yhw7CBZj BKNxhVJtY097g9evw3gypsE pzSJ1iGzjBOFoZRXiTGpqNP PyDcAmFUzhQVP9NGw2VmWoI HBhcn0= CLINICAL HISTORY (test l0hxfJXyZFSrgWZ7EzAiYHI code = 3356) av2mdd3ZggGVjgOLhDCzijW TwlrIdtn04bOB5xM78KA5xI DJlEqL8AXRcrwE8Olc2MXIs JNXivHCxC080b5gbd1dnlzO saLP4wVnaAXDqTIChLUibUB AbLrWgDADsr3TpRLlqN29yn 2lzOiAgbGVmdCBjYXJvdGlk XIT5AG3vv9ftMXUbvd7= SPECIMEN SOURCE (test m0bioDCaGLXiyGM0MuQfYTQ code = 3377) dx0npb5NevKZxqSIbIEmkkP JflvFrsn09lZF6pJ78CH6dM AOsZtL1SRIzcvE4Tpo1MMYp QZYdgWLnD592u1aem5mvumM ewCD9iEvgLXTaTAYpFFshRT ZzMjAgUGxhcXVlIFxwYXJ9 GROSS DESCRIPTION u4zaxDQzAXSonYO7SxZvYAH (test code = 3366) in0svp1SbyFJylIOnTYlhiP BssmCgia42pXC0hB67WM7hN BCcIcP5TROrxsW4Jar9FFFt YAGusUOoC270n1iyn9xoltW jhXB6bUscXSOnGZQqCBfeMF YcDiSkOpVeCEw3JSNjWmTll 1fyaWTlHDziCHM5cUUeMHRm GAUvJMNqKH98I1TpmbLtHRl rUYEuYSRmzI0sRU37sUQvzt FateJuRpLqWNE7XBzryOOiy CBjYXJvdGlkIGFydGVyeSBw hCMvfIKxEYygPBLbVr4jGYh gDu9uCUHkNZhzteTigLqcyg VfoqKxlRYjhOIiIjS8ZXxtx 3cgcGxhcXVlIHRoYXQgZGlz lVhmgAPtA3OxE9xmdXAfhKt okb7mHRruWGUmKRZxhQAgSA fcFIVyxlkxwZw5PZTrR5Hed 47eSWP3umThLBFaMWtxPTT5 PXhrf9yrbS0or3edftUlrVR sI4DmD1qroKBbGNVtzqCzjx 4gVGhlIHNwZWNpbWVuIGlzI NZ8Sq5uzFXaXCWrfcMpuZDh BH20zKPjtKyqBi3yvL97fU4 uAJVnL7RvI2cqqMTyeYquko FwyxJPSR4yKKsMO2NlWGfrY XJ9 MICROSCOPIC t0srnMOyNDVspNY2QaLiKBH DESCRIPTION (test code xe2vcj9MauVHnjZCeWKzkgQ = 3371) VnogWcpe15xJW2bB34MA5tU SIgDuT4LIBszsM2Jpm8FGPz JHAskUXsF763i7arz7zhnmD hdPE5nFmkUIIqENXjLEmcSS CjCxBdQWBmRh1lgOFfCBZux n0= [facility] CenterT[facility] [id number] 18:50:00Surgical Pathology Report Case: [id number] Authorizing Provider: Juan Gallardo, Collected: 09/19/2020 02:54 PM MD Ordering Location: [facility] Received: 09/19/2020 03:32 PM PERIOPERATIVE SERVICES Pathologist: Jarad Menchaca MD Specimen: Plaque, LEFT CAROTID ARTERY PLAQUE ARTERY, LEFTCAROTID, ENDARTERECTOMY:CALCIFIC ATHEROSCLEROTIC PLAQUE Signing Pathologist Direct Phone Line: [phone]; [phone] diagnosis: left carotid stenosisPlaque Received fresh labeled with the patient's name, accession number and "plaque, left carotid artery plaque" is a 2.0 x 2.0 cm irregular fragment of yellow plaque that displays calcification. The specimen is serially sectioned to reveal a yellow homogeneous calcified center. The specimen is submitted in its entirety following decalcification in A1. JG/pl PerformedPOC-Glucose [id number] 11:48:00 Test Item Value Reference Range Interpretation Comments POC-Glucose Meter (test 208 mg/dL 70-110 H : TE STED AT [facility] code = 1538) [address] [place] [address], [facility] 30: Yarn Spinner/Techni ciara ID = [id number] for BERT CORONADO Lab Interpretation (test Abnormal code = 27637-7) [facility] [id number] 11:48:00 Test Item Value Reference Range Interpretation Comments POC-Glucose Meter (test 208 mg/dL 70-110 H : TE STED AT [facility] code = 1538) [address] [facility], [facility] 30: Yarn Spinner/Techni ciara ID = [id number] for BERT CORONADO Lab Interpretation (test Abnormal code = 72038-9) [facility]U[facility] [id number] 11:48:00 Test Item Value Reference Range Interpretation Comments POC-GLUCOSE METER 208 mg/dL 70-110 H : TESTED A T [facility] 6720 (BEAKER) (test code = [facility], 1538) [address]: Yarn Spinner/Techni ciara ID = [id number] for BERT ROUSSEAU POCT-GLUCOSE [id number] 08:17:00 Test Item Value Reference Range Interpretation Comments POC-GLUCOSE METER 183 mg/dL 70-110 H : TESTED A T [facility] 67[address] (BEAKER) (test code = [facility], 1538) [address]: Yarn Spinner/Techni ciara ID = [id number] for BERT ROUSSEAU POC ACTIVATED CLOTTING [id number] 06:23:00 Test Item Value Reference Range Interpretation Comments Activated Clotting Time 241 sec : 74 -137 seconds, (test code = 441) Baseline: TESTED AT [address], [facility] 30: Yarn Spinner/Techni ciara ID = [id number] for CAST RO, NAT [facility] ACTIVATED CLOTTING [id number] 06:23:00 Test Item Value Reference Range Interpretation Comments Activated Clotting Time 241 sec : 74 -137 seconds, (test code = 441) Baseline: TESTED AT [address], [address] 30: Yarn Spinner/Techni ciara ID = [id number] for CAST RO, NAT [facility] CenterPO[facility]-[id number] 06:23:00 Test Item Value Reference Range Interpretation Comments ACTIVATED CLOTTING TIME 241 sec : 74 -137 seconds, (BEAKER) (test code = Baseli ne: TESTED AT [facility]) [address], [address] 30: Yarn Spinner/Techni ciara ID = [id number] for CA STRO, NAT [id number] 06:23:00 Test Item Value Reference Range Interpretation Comments ACTIVATED CLOTTING TIME 224 sec : 74 -137 seconds, (BEAKER) (test code = Baseli ne: TESTED AT 441) [address], [facility] 30: Yarn Spinner/Techni ciara ID = [id number] for CA STRO, NAT CBC with platelet count + automated [id number] 01:08:00 Test Item Value Reference Range Interpretation Comments WBC (test code = 6690-2) 12.8 See_Comment H [A utomated message] The system [employer] generated this result transmitted ref erence range: 3.5 - 10 .5 K/µL. The refe rence range was not u sed to interpret this result as normal/abnor mal. RBC (test code = 789-8) 3.64 See_Comment L [Au tomated message] The system [employer] generated this result transmitted ref erence range: 3.93 - 5 .22 M/µL. The refe rence range was not u sed to interpret this result as normal/abnor mal. MCHC (test code = 786-4) 30.3 See_Comment L [A utomated message] The system [employer] generated this result transmitted ref erence range: [...] See_Comment [Aut omated message] 777-3) The system [employer] generated this result transmitted ref erence range: 150 - 45 0 K/CU MM. The referen ce range was not u sed to interpret this result as normal/abnor mal. MPV (test code = 10.5 fL 9.4-12.3 52644-1) nRBC (test code = 413) 0 See_Comment [Aut omated message] The system [employer] generated this result transmitted ref erence range: [...] H [Aut omated message] 670) The system [employer] generated this result transmitted ref erence range: 1.56 - 6 .13 K/µL. The refe rence range was not u sed to interpret this result as normal/abnor mal. # Lymphs (test code = 1.06 See_Comment L [Auto mated message] 414) The system [employer] generated this result transmitted ref erence range: 1.18 - 3 .74 K/µL. The refe rence range was not u sed to interpret this result as normal/abnor mal. # Monos (test code = 0.20 See_Comment L [Autom ated message] 415) The system [employer] generated this result transmitted ref erence range: 0.24 - 0 .36 K/µL. The refe rence range was not u sed to interpret this result as normal/abnor mal. # Eos (test code = 416) 0.00 See_Comment L [Au tomated message] The system [employer] generated this result transmitted ref erence range: 0.04 - 0 .36 K/µL. The refe rence range was not u sed to interpret this result as normal/abnor mal. # Baso (test code = 417) 0.03 See_Comment [A utomated message] The system [employer] generated this result transmitted ref erence range: 0.01 - 0 .08 K/µL. The refe rence range was not u sed to interpret this result as normal/abnor mal. Immature 1 % 0-1 Granulocytes-Relative (test code = 2801) Lab Interpretation (test Abnormal code = 48723-8) [facility] with platelet count + automated [id number] 01:08:00 Test Item Value Reference Range Interpretation Comments WBC (test code = 6690-2) 12.8 See_Comment H [A utomated message] The system [employer] generated this result transmitted ref erence range: 3.5 - 10 .5 K/µL. The refe rence range was not u sed to interpret this result as normal/abnor mal. RBC (test code = 789-8) 3.64 See_Comment L [Au tomated message] The system [employer] generated this result transmitted ref erence range: 3.93 - 5 .22 M/µL. The refe rence range was not u sed to interpret this result as normal/abnor mal. MCHC (test code = 786-4) 30.3 See_Comment L [A utomated message] The system [employer] generated this result transmitted ref erence range: [...] See_Comment [Aut omated message] 777-3) The system [employer] generated this result transmitted ref erence range: 150 - 45 0 K/CU MM. The referen ce range was not u sed to interpret this result as normal/abnor mal. MPV (test code = 10.5 fL 9.4-12.3 86759-4) nRBC (test code = 413) 0 See_Comment [Aut omated message] The system [employer] generated this result transmitted ref erence range: [...] H [Aut omated message] 670) The system [employer] generated this result transmitted ref erence range: 1.56 - 6 .13 K/µL. The refe rence range was not u sed to interpret this result as normal/abnor mal. # Lymphs (test code = 1.06 See_Comment L [Auto mated message] 414) The system [employer] generated this result transmitted ref erence range: 1.18 - 3 .74 K/µL. The refe rence range was not u sed to interpret this result as normal/abnor mal. # Monos (test code = 0.20 See_Comment L [Autom ated message] 415) The system [employer] generated this result transmitted ref erence range: 0.24 - 0 .36 K/µL. The refe rence range was not u sed to interpret this result as normal/abnor mal. # Eos (test code = 416) 0.00 See_Comment L [Au tomated message] The system [employer] generated this result transmitted ref erence range: 0.04 - 0 .36 K/µL. The refe rence range was not u sed to interpret this result as normal/abnor mal. # Baso (test code = 417) 0.03 See_Comment [A utomated message] The system [employer] generated this result transmitted ref erence range: 0.01 - 0 .08 K/µL. The refe rence range was not u sed to interpret this result as normal/abnor mal. Immature 1 % 0-1 Granulocytes-Relative (test code = 2801) Lab Interpretation (test Abnormal code = 52650-2) [facility] W/PLT COUNT & AUTO [id number] 01:08:00 Test Item Value Reference Range Interpretation [...] (BEAKER) (test code = 2801) Basic Metabolic [id number] 00:56:00 Test Item Value Reference Range Interpretation [...] (test code = 8.2 mg/dL 8.4-10.2 L 05761-6) EGFR (test code = 75 mL/min/1.73 [place] [address]-6) NOT ACCURATE CREATININE CLEARANCE IN PREDICTING GLOMERULAR FILTRATION RATE . ESTIMATED GFR I S NOT APPLICABLE FOR DIALYSIS PATIENTS. GABRIELA (test code = GABRIELA) Yarn Spinner ID - PIAYA L Lab Interpretation Abnormal (test code = 20874-1) [facility] Francisco[facility]2020-12-[facility] 00:56:00 Test Item Value Reference Range Interpretation Comments Magnesium (test code = 1.7 mg/dL 1.6-2.6 30062-5) GABRIELA (test code = GABRIELA) Yarn Spinner ID - PIAYA L Lab Interpretation (test Normal code = 18076-2) [facility] Francisco[facility]osphorus2020-12-08 00:56:00 Test Item Value Reference Range Interpretation Comments Phosphorus (test code = 3.7 mg/dL 2.3-4.7 2777-1) GABRIELA (test code = GABRIELA) Yarn Spinner ID - PIAYA L Lab Interpretation (test Normal code = 16564-9) [facility] FranciscoB[facility] Metabolic [id number] 00:56:00 Test Item Value Reference Range Interpretation [...] (test code = 8.2 mg/dL 8.4-10.2 L 48422-1) EGFR (test code = 75 mL/min/1.73 [place] [address]-3) NOT ACCURATE CREATININE CLEARANCE IN PREDICTING GLOMERULAR FILTRATION RATE . ESTIMATED GFR I S NOT APPLICABLE FOR DIALYSIS PATIENTS. GABRIELA (test code = GABRIELA) Yarn Spinner ID - PIAYA L Lab Interpretation Abnormal (test code = 11887-6) [facility] Francisco[facility]esium2020-12-08 00:56:00 Test Item Value Reference Range Interpretation Comments Magnesium (test code = 1.7 mg/dL 1.6-2.6 06547-8) GABRIELA (test code = GABRIELA) Yarn Spinner ID - PIAYA L Lab Interpretation (test Normal code = 50197-1) [facility] Francisco[facility]2020-12-08 00:56:00 Test Item Value Reference Range Interpretation Comments Phosphorus (test code = 3.7 mg/dL 2.3-4.7 2777-1) GABRIELA (test code = GABRIELA) Yarn Spinner ID - PIAYA L Lab Interpretation (test Normal code = 86804-3) [facility] FranciscoBASI METABOLIC [id number] 00:56:00 Test Item Value Reference Range Interpretation [...] S NOT APPLICABLE FOR DIALYSIS PATIEN TS. Yarn Spinner ID - FARHAD [id number] 00:56:00 Test Item Value Reference Range Interpretation Comments MAGNESIUM (BEAKER) (test code = 1.7 mg/dL 1.6-2.6 627) Yarn Spinner ID - FARHAD [id number] 00:56:00 Test Item Value Reference Range Interpretation Comments PHOSPHORUS (BEAKER) (test code = 3.7 mg/dL 2.3-4.7 604) Yarn Spinner ID - FARHAD LCalcium, [id number] 00:31:00 Test Item Value Reference Range Interpretation Comments Calcium, Ion (test code = 1993-12) 1.18 mmol/L 1.12-1.27 pH, Blood (test code = 43542-5) 7.39 [facility], [id number] 00:31:00 Test Item Value Reference Range Interpretation Comments Calcium, Ion (test code = 1993-) 1.18 mmol/L 1.12-1.27 pH, Blood (test code = 05287-4) 7.39 [facility] FranciscoCAL[facility], [id number] 00:31:00 Test Item Value Reference Range Interpretation Comments CALCIUM IONIZED (BEAKER) (test 1.18 mmol/L 1.12-1.27 code = 698) PH, BLOOD (BEAKER) (test code = 7.39 1810) [id number] 10:46:00 Test Item Value Reference Range Interpretation Comments PTT (test code = 16759-1) 27.9 See_Comment [ Automated message] The system [employer] generated this result transmitted ref erence range: 22.5 - 3 6.0 seconds. The re ference range was not u sed to interpret this result as normal/abnor mal. Lab Interpretation (test Normal code = 78382-3) [facility] Francisco[facility]PTT2020-[facility]-07 10:46:00 Test Item Value Reference Range Interpretation Comments PTT (test code = 54349-4) 27.9 See_Comment [ Automated message] The system [employer] generated this result transmitted ref erence range: 22.5 - 3 6.0 seconds. The re ference range was not u sed to interpret this result as normal/abnor mal. Lab Interpretation (test Normal code = 07123-7) [facility] FranciscoAPTT[facility] 10:46:00 Test Item Value Reference Range Interpretation Comments PARTIAL THROMBOPLASTIN TIME 27.9 seconds 22.5-36.0 (BEAKER) (test code = 760) Prothrombin time/[id number] 10:45:00 Test Item Value Reference Interpretation Comments Range Protime (test code = 13.4 See_Comment [Autom ated 5902-2) message] The system which generated this result transmitted reference range : 11.9 - 14.2 seconds. The reference range was not used to interpret this result as normal/abnormal . INR (test code = 1.05 See_Comment [Automated 5501-6) message] The system which generated this result [...] valves. Lab Interpretation Normal (test code = 84419-7) [facility] FranciscoProthrombin time/[id number] 10:45:00 Test Item Value Reference Interpretation Comments [...] valves. Lab Interpretation Normal (test code = 39349-5) [facility] FranciscoPROTHROMBIN TIME/[id number] 10:45:00 Test Item Value Reference Range Interpretation [...] 2.5-3.5 for patients wiht mechanical heart valves.POCT-GLUCOSE [id number] 09:19:00 Test Item Value Reference Range Interpretation Comments POC-GLUCOSE METER 187 mg/dL 70-110 H : TESTED A T [facility] 6720 (BEAKER) (test code = BERTNE R MUNGUIA DE, 1538) 32897: Yarn Spinner/Techni ciara ID = [id number] for [place] ECG 12 [id number] 12:51:19Interface, External Ris In - 09/14/2020 12:51 PM CSTVentricular Rate 65 BPMAtrial Rate 65 BPMP-R Interval 154 msQRS Duration 78 msQ-T Interval 442 msQTC Calculation(Bazett) 459 msP [place] 5 degreesR Axis77 degreesT [place] 66 degreesNormal sinus rhythmNonspecific T wave abnormalityProlonged QTWhen compared with ECG of 02-AUG-2019 06:01,Premature ventricular complexes are no longer PresentConfirmed by Daksha NICHOLE, MOLLY ([id number]) on 09/14/2020 12:51:17 [facility] [id number] 12:51:19Interface, External Ris In - 09/14/2020 12:51 PM CSTVentricular Rate 65 BPMAtrial Rate 65 BPMP-R Interval 154 msQRS Duration 78 msQ-T Interval 442 msQTC Calculation(Bazett) 459 msP [place] 5 degreesR Axis77 degreesT [place] 66 degreesNormal sinus rhythmNonspecific T wave abnormalityProlonged QTWhen compared with ECG of 02-AUG-2019 06:01,Premature ventricular complexes are no longer PresentConfirmed by Daksha NICHOLE, MOLLY ([id number]) on 09/14/2020 12:51:17 [facility]AB[facility], [id number] 16:42:00 Test Item Value Reference Range Interpretation Comments ABO Grouping (test code = 2588) A Rh Factor (test code = 2589) POS [facility] FranciscoABORH, [id number] 16:42:00 Test Item Value Reference Range Interpretation Comments ABO Grouping (test code = 2588) A Rh Factor (test code = 2589) POS [facility] FranciscoType and screen, [id number] 16:36:00 Test Item Value Reference Range Interpretation Comments Ab Scrn (test code = 890-4) NEGATIVE echo2 [facility] FranciscoType and screen, [id number] 16:36:00 Test Item Value Reference Range Interpretation Comments Ab Scrn (test code = 890-4) NEGATIVE echo2 [facility] [id number] 15:32:00 Test Item Value Reference Range Interpretation [...] S NOT APPLICABLE FOR DIALYSIS PATIEN TS. Yarn Spinner ID - ADMINPROTHROMBIN [id number] 15:29:00 Test Item Value Reference Range Interpretation [...] mechanical heart valves.CBC W/PLT COUNT & AUTO [id number] 15:17:00 Test Item Value Reference Range Interpretation [...] (BEAKER) (test code = 2801) BASIC METABOLIC [id number] 06:24:00 Test Item Value Reference Range Interpretation [...] 0-0 (BEAKER) (test code = 413) POCT-GLUCOSE [id number] 21:22:00 Test Item Value Reference Range Interpretation Comments POC-GLUCOSE METER 138 mg/dL 70-110 H TESTED AT [facility] 6720 (BEAKER) (test code = ERENDIRA Guzman [place] 1538) [address] POCT-GLUCOSE [id number] 17:38:00 Test Item Value Reference Range Interpretation Comments POC-GLUCOSE METER 131 mg/dL 70-110 H TESTED AT [facility] 6720 (BEAKER) (test code = ERENDIRA Guzman [place] 1538) [address] BASIC METABOLIC [id number] 06:07:00 Test Item Value Reference Range Interpretation [...] 1092) DATA TO CALCULA TE ESTIMATED GFR. [id number] 06:04:00 Test Item Value Reference Range Interpretation [...] H (AKER) (test code = 413) POCT-GLUCOSE [id number] 23:10:00 Test Item Value Reference Range Interpretation Comments POC-GLUCOSE METER 127 mg/dL 70-110 H TESTED AT [place] [address] ([facility]) (test code = ERENDIRA Guzman [facility] 1538) [address] POCT-GLUCOSE [id number] 12:36:00 Test Item Value Reference Range Interpretation Comments POC-GLUCOSE METER 157 mg/dL 70-110 H TESTED AT [place] [address] ([facility]) (test code = ERENDIRA Guzman [facility] 1538) [address] CBC (HEMOGRAM ONLY)2019-08-02 06:03:00 Test Item Value [...] (BEAKER) (test code = 413) BASIC METABOLIC [id number] 05:47:00 Test Item Value Reference Range Interpretation [...] 1092) DATA TO CALCULA TE ESTIMATED GFR. [id number] 05:46:00 Test Item Value Reference Range Interpretation Comments PHOSPHORUS (BEAKER) (test code = 2.5 mg/dL 2.3-4.7 604) [id number] 05:46:00 Test Item Value Reference Range Interpretation Comments MAGNESIUM (BEAKER) (test code = 2.1 mg/dL 1.6-2.6 627) POCT-GLUCOSE [id number] 20:47:00 Test Item Value Reference Range Interpretation Comments POC-GLUCOSE METER 164 mg/dL 70-110 H TESTED AT [facility] 6720 (BEAKER) (test code = ERENDIRA BRAG[place] 1538) [address] POCT-GLUCOSE [id number] 17:38:00 Test Item Value Reference Range Interpretation Comments POC-GLUCOSE METER 194 mg/dL 70-110 H TESTED AT [facility] 6720 (BEAKER) (test code = ERENDIRA [place] 1538) [address] POCT-GLUCOSE [id number] 07:51:00 Test Item Value Reference Range Interpretation Comments POC-GLUCOSE METER 157 mg/dL 70-110 H TESTED AT [facility] 6720 (BEAKER) (test code = ERENDIRA [place] 1538) [address] HEMOGLOBIN [id number] 07:51:00 Test Item Value Reference Range Interpretation Comments HEMOGLOBIN A1C (BEAKER) (test code = 8.6 % 4.3-6.1 H 368) BASIC METABOLIC [id number] 06:11:00 Test Item Value Reference Range Interpretation [...] 1092) DATA TO CALCULA TE ESTIMATED GFR. [id number] 06:10:00 Test Item Value Reference Range Interpretation Comments PHOSPHORUS (BEAKER) (test code = 1.9 mg/dL 2.3-4.7 L 604) [id number] 06:10:00 Test Item Value Reference Range Interpretation [...] 0-0 (BEAKER) (test code = 413) POCT-GLUCOSE [id number] 22:07:00 Test Item Value Reference Range Interpretation Comments POC-GLUCOSE METER 175 mg/dL 70-110 H TESTED AT [place] [address] ([facility]) (test code = ERENDIRA Guzman [facility] 1538) [address] POCT-GLUCOSE [id number] 18:30:00 Test Item Value Reference Range Interpretation Comments POC-GLUCOSE METER 225 mg/dL 70-110 H TESTED AT [place] [address] ([facility]) (test code = ERENDIRA Guzman [facility] 1538) [address] POCT-GLUCOSE [id number] 12:17:00 Test Item Value Reference Range Interpretation Comments POC-GLUCOSE METER 170 mg/dL 70-110 H TESTED AT [place] [address] ([facility]) (test code = ERENDIRA Guzamn [facility] 1538) [address] POCT-GLUCOSE [id number] 08:20:00 Test Item Value Reference Range Interpretation Comments POC-GLUCOSE METER 161 mg/dL 70-110 H TESTED AT [place] [address] ([facility]) (test code = ERENDIRA [place] 1538) [address] BASIC METABOLIC [id number] 08:18:00 Test Item Value Reference Range Interpretation [...] 1092) DATA TO CALCULA TE ESTIMATED GFR. [id number] 08:15:00 Test Item Value Reference Range Interpretation Comments MAGNESIUM (BEAKER) 1.9 mg/dL 1.6-2.6 Specimen slightly (test code = 627) hemolyzed [id number] 08:15:00 Test Item Value Reference Range Interpretation Comments PHOSPHORUS (BEAKER) 2.3 mg/dL 2.3-4.7 Specimen slightly (test code = 604) hemolyzed RAD, CHEST, 1 VIEW, NON [id number] 07:56:00Reason for exam:->post-op cardiac surgeryShould this be [...] MDReport Verified Date/Time: 07/31/2019 07:56:15 Reading Location: [facility] Reading Room Electronically signed by: DIXON WILKERSON on 07/31 07:56 [id number] 07:25:00 Test Item Value Reference Range Interpretation [...] RED BLOOD CELLS 0 /100 WBC 0-0 ([facility]) (test code = 413) POCT-GLUCOSE [id number] 21:32:00 Test Item Value Reference Range Interpretation Comments POC-GLUCOSE METER 168 mg/dL 70-110 H TESTED AT [place] [address] ([facility]) (test code = ERENDIRA Guzman [facility] 1538) [address] POCT-GLUCOSE [id number] 17:55:00 Test Item Value Reference Range Interpretation Comments POC-GLUCOSE METER 172 mg/dL 70-110 H TESTED AT [place] [address] ([facility]) (test code = ERENDIRA Guzman [facility] 1538) [address] POCT-GLUCOSE [id number] 15:34:00 Test Item Value Reference Range Interpretation Comments POC-GLUCOSE METER 152 mg/dL 70-110 H TESTED AT [place] [address] ([facility]) (test code = [facility] Thomas [facility] 1538) [address] POCT-GLUCOSE [id number] 12:52:00 Test Item Value Reference Range Interpretation Comments POC-GLUCOSE METER 222 mg/dL 70-110 H TESTED AT [place] [address] ([facility]) (test code = BRIGIDAPR Thomas [facility] 1538) [address] POCT-GLUCOSE [id number] 07:19:00 Test Item Value Reference Range Interpretation Comments POC-GLUCOSE METER 185 mg/dL 70-110 H TESTED AT [place] [address] ([facility]) (test code = ERENDIRA Guzman [facility] 1538) [address] [id number] 06:16:00 Test Item Value Reference Range Interpretation Comments ACTIVATED CLOTTING TIME 109 sec Refe rence Range: 74-137 (BEAKER) (test code = second s, 441) Baseline/TESTED AT [address] [address] [id number] 06:16:00 Test Item Value Reference Range Interpretation Comments ACTIVATED CLOTTING TIME 543 sec Refe rence Range: 74-137 ([facility]) (test code = second s, 441) Baseline/TESTED AT [address] [address] [id number] 06:16:00 Test Item Value Reference Range Interpretation Comments ACTIVATED CLOTTING TIME 510 sec Refe rence Range: 74-137 [facility] (test code = second s, 441) Baseline/TESTED AT [facility] 67[address] [facility] [place] [address] BASIC METABOLIC [id number] 06:04:00 Test Item Value Reference Range Interpretation [...] 1092) DATA TO CALCULA TE ESTIMATED GFR. [id number] 06:02:00 Test Item Value Reference Range Interpretation Comments PHOSPHORUS (BEAKER) (test code = 3.7 mg/dL 2.3-4.7 604) [id number] 06:02:00 Test Item Value Reference Range Interpretation Comments MAGNESIUM (BEAKER) (test code = 2.0 mg/dL 1.6-2.6 627) [id number] 05:57:00 Test Item Value Reference Range Interpretation [...] 2.5-3.5 for patients wiht mechanical heart valves.PROTHROMBIN [id number] 05:56:00 Test Item Value Reference Range Interpretation [...] 2.5-3.5 for patients wiht mechanical heart valves.CALCIUM, [id number] 05:55:00 Test Item Value Reference Range Interpretation Comments CALCIUM IONIZED (BEAKER) (test 1.17 mmol/L 1.12-1.27 code = 698) PH, BLOOD (BEAKER) (test code = 7.38 1810) CBC W/PLT COUNT & AUTO [id number] 05:55:00 Test Item Value Reference Range Interpretation [...] (BEAKER) (test code = 2801) OXYGEN SATURATION, [id number] 05:49:00 Test Item Value Reference Range Interpretation Comments O2 SATURATION (MEASURED) (BEAKER) 77.2 % (test code = 1455) RAD, CHEST, 1 VIEW, NON [id number] 05:35:00Reason for exam:->post-op cardiac surgeryShould this be performed at the bedside?->YesFINAL REPORT RAD, CHEST, 1 VIEW, NON DEPT INDICATION: post-op cardiac surgery COMPARISON: Prior day's exam FINDINGS: Portable frontal view of the chest. IMPRESSION: Support Lines: Interval extubation. Otherwise unchanged support apparatus. Lungs and pleura: Unchanged airspace opacities. No pneumothorax.Heart and mediastinum: Stable contours. Stable surgical changes.Additional findings: None. Signed: Hortencia Brand [facility] Verified Date/Time: 07/30/2019 05:35:16 [id number] 18:41:00 Test Item Value Reference Range Interpretation Comments POTASSIUM (BEAKER) (test code = 4.2 meq/L 3.5-5.1 379) PRN - repeat potassium levels every 1 hour until glucose level is less than 450 mg/dLPOCT-GLUCOSE [id number] 18:14:00 Test Item Value Reference Range Interpretation Comments POC-GLUCOSE METER 175 mg/dL 70-110 H TESTED AT [facility] 6720 (BEAKER) (test code = ERENDIRA [place] 1538) [address] BLOOD GAS, [id number] 16:57:00 Test Item Value Reference Range Interpretation [...] (test code = 1819) 40.0 % HEMOGLOBIN [id number] 16:17:00 Test Item Value Reference Range Interpretation Comments HEMOGLOBIN A1C (BEAKER) (test code = 9.5 % 4.3-6.1 H 368) PLATELET AGGREGATION: FUNCTION [id number] 15:15:00 Test Item Value Reference Range Interpretation Comments [id number] Giovanni Tee M.D. (BEAKER) (test code = (electonic signature) 1041) PLATELET COUNT AGG 273 K/CU MM 150-450 (BEAKER) (test code = 4936) PLATELET RICH 258 k/cu mm 200-300 PLASMA(BEAKER) (test code = 2134) PLATELET FUNCTION Pattern of SCREEN INTERPRETATION disaggregation present (BEAKER) (test code = with ADP which may be 4655) characteristic of P2Y12 inhibitor effect. Correlation with medication history is required. Platelet Function Screen results may be falsely low with platelet counts<75,000/cu mm.POCT-GLUCOSE [id number] 15:07:00 Test Item Value Reference Range Interpretation Comments POC-GLUCOSE METER 125 mg/dL 70-110 H TESTED AT [place] [address] ([facility]) (test code = ERENDIRA Guzman [facility] 1538) [address] POCT-GLUCOSE [id number] 14:26:00 Test Item Value Reference Range Interpretation Comments POC-GLUCOSE METER 85 mg/dL 70-110 TESTED AT [place] [address] ([facility]) (test code = ERENDIRA Guzman [facility] [address] 1538) POCT-GLUCOSE [id number] 14:14:00 Test Item Value Reference Range Interpretation Comments POC-GLUCOSE METER 88 mg/dL 70-110 TESTED AT [place] [address] ([facility]) (test code = ERENDIRA Guzman [facility] [address] 1538) RAD, CHEST, 1 VIEW, NON [id number] 13:11:00Reason for exam:->Status post CV Surgery post [...] Verified Da te/Time: 07/29/2019 13:11:13 Reading Location: [facility] Reading Room -GLUCOSE [id number] 13:00:00 Test Item Value Reference Range Interpretation Comments POC-GLUCOSE METER 132 mg/dL 70-110 H TESTED AT [place] [address] ([facility]) (test code = ERENDIRA Guzman [facility] 1538) [address] BASIC METABOLIC [id number] 12:28:00 Test Item Value Reference Range Interpretation [...] 1092) DATA TO CALCULA TE ESTIMATED GFR. [id number] 12:27:00 Test Item Value Reference Range Interpretation Comments PHOSPHORUS (BEAKER) (test code = 2.3 mg/dL 2.3-4.7 604) [id number] 12:27:00 Test Item Value Reference Range Interpretation Comments MAGNESIUM (BEAKER) (test code = 2.6 mg/dL 1.6-2.6 627) [id number] 12:26:00 Test Item Value Reference Range Interpretation Comments PARTIAL THROMBOPLASTIN TIME 27.4 seconds 22.5-36.0 (BEAKER) (test code = 760) PROTHROMBIN [id number] 12:25:00 Test Item Value Reference Range Interpretation [...] for patients wiht mechanical heart valves.LACTIC ACID, [id number] 12:21:00 Test Item Value Reference Range Interpretation Comments LACTATE BLOOD ARTERIAL (2) 1.2 mmol/L 0.5-2.2 (BEAKER) (test code = 2874) CBC W/PLT COUNT & AUTO [id number] 12:08:00 Test Item Value Reference Range Interpretation [...] PERCENT (BEAKER) (test code = 2801) CALCIUM, [id number] 12:04:00 Test Item Value Reference Range Interpretation Comments CALCIUM IONIZED (BEAKER) (test 1.15 mmol/L 1.12-1.27 code = 698) PH, BLOOD (BEAKER) (test code = 7.44 1810) BLOOD GAS, [id number] 12:03:00 Test Item Value Reference Range Interpretation [...] code = 1819) 60.0 % OXYGEN SATURATION, [id number] 12:00:00 Test Item Value Reference Range Interpretation Comments O2 SATURATION (MEASURED) (BEAKER) 66.6 % (test code = 1455) For occult [id number] 11:53:00 Test Item Value Reference Range Interpretation Comments PHOSPHORUS (BEAKER) (test code = 2.9 mg/dL 2.3-4.7 604) CALCIUM, [id number] 10:32:00 Test Item Value Reference Range Interpretation Comments CALCIUM IONIZED (BEAKER) (test 1.03 mmol/L 1.12-1.27 L code = 698) PH, BLOOD (BEAKER) (test code = 7.33 1810) BLOOD GAS, [id number] 10:31:00 Test Item Value Reference Range Interpretation [...] code = 1819) 100.0 % SODIUM NA-STAT [id number] 10:31:00 Test Item Value Reference Range Interpretation Comments SODIUM (BEAKER) (test code = 381) 133 meq/L 135-148 L GLUCOSE-STAT [id number] 10:31:00 Test Item Value Reference Range Interpretation Comments GLUCOSE RANDOM (BEAKER) (test code 226 mg/dL 70-110 H = 652) HGB/HCT (H&H) - STAT [id number] 10:31:00 Test Item Value Reference Range Interpretation Comments HEMOGLOBIN (BEAKER) (test code = 8.0 g/dL 12.0-15.0 L 410) HEMATOCRIT (BEAKER) (test code = 24.0 % 36.0-45.0 L 411) POTASSIUM-STAT [id number] 10:30:00 Test Item Value Reference Range Interpretation Comments POTASSIUM (BEAKER) (test code = 4.2 meq/L 3.6-5.5 379) BLOOD GAS, [id number] 10:05:00 Test Item Value Reference Range Interpretation [...] code = 1819) 80.0 % SODIUM NA-STAT [id number] 10:05:00 Test Item Value Reference Range Interpretation Comments SODIUM (BEAKER) (test code = 381) 127 meq/L 135-148 L POTASSIUM-STAT [id number] 10:05:00 Test Item Value Reference Range Interpretation Comments POTASSIUM (BEAKER) (test code = 5.9 meq/L 3.6-5.5 H 379) GLUCOSE-STAT [id number] 10:05:00 Test Item Value Reference Range Interpretation Comments GLUCOSE RANDOM (BEAKER) (test code 241 mg/dL 70-110 H = 652) HGB/HCT (H&H) - STAT [id number] 10:05:00 Test Item Value Reference Range Interpretation Comments HEMOGLOBIN (BEAKER) (test code = 8.0 g/dL 12.0-15.0 L 410) HEMATOCRIT (BEAKER) (test code = 24.0 % 36.0-45.0 L 411) BLOOD GAS, [id number] 09:51:00 Test Item Value Reference Range Interpretation [...] code = 1819) 80.0 % SODIUM NA-STAT [id number] 09:51:00 Test Item Value Reference Range Interpretation Comments SODIUM (BEAKER) (test code = 381) 130 meq/L 135-148 L GLUCOSE-STAT [id number] 09:51:00 Test Item Value Reference Range Interpretation Comments GLUCOSE RANDOM (BEAKER) (test code 249 mg/dL 70-110 H = 652) HGB/HCT (H&H) - STAT [id number] 09:51:00 Test Item Value Reference Range Interpretation Comments HEMOGLOBIN (BEAKER) (test code = 8.1 g/dL 12.0-15.0 L 410) HEMATOCRIT (BEAKER) (test code = 24.0 % 36.0-45.0 L 411) POTASSIUM-STAT [id number] 09:50:00 Test Item Value Reference Range Interpretation Comments POTASSIUM (BEAKER) (test code = 5.4 meq/L 3.6-5.5 379) BLOOD GAS, [id number] 09:23:00 Test Item Value Reference Range Interpretation [...] code = 1819) 100.0 % SODIUM NA-STAT [id number] 09:23:00 Test Item Value Reference Range Interpretation Comments SODIUM (BEAKER) (test code = 381) 132 meq/L 135-148 L GLUCOSE-STAT [id number] 09:23:00 Test Item Value Reference Range Interpretation Comments GLUCOSE RANDOM (BEAKER) (test code 164 mg/dL 70-110 H = 652) CALCIUM, [id number] 09:23:00 Test Item Value Reference Range Interpretation Comments CALCIUM IONIZED (BEAKER) (test 1.05 mmol/L 1.12-1.27 L code = 698) PH, BLOOD (BEAKER) (test code = 7.44 1810) POTASSIUM-STAT [id number] 09:22:00 Test Item Value Reference Range Interpretation Comments POTASSIUM (BEAKER) (test code = 4.0 meq/L 3.6-5.5 379) HGB/HCT (H&H) - STAT [id number] 09:22:00 Test Item Value Reference Range Interpretation Comments HEMOGLOBIN (BEAKER) (test code = 12.2 g/dL 12.0-15.0 410) HEMATOCRIT (BEAKER) (test code = 36.0 % 36.0-45.0 411) RAD, CHEST, 1 VIEW, NON [id number] 07:12:00Reason for exam:->preopShould this be performed at the bedside?->YesFINAL REPORT INDICATION: preop COMPARISON: None TECHNIQUE: Single frontal view of the chest. FINDINGS: Lungs and pleura: Clear lungs. No effusion.Heart and mediastinum: Normal heart size. Unremarkable mediastinal contours.Osseous structures: No acute abnormality.Other: None. IMPRESSION: No acute intrathoracic abnormality. Signed: Deirdre De Jesus MDReport Verified Date/Time: 07/29/2019 07:12:45 [id number] 07:01:00 Test Item Value Reference Range Interpretation Comments PARTIAL THROMBOPLASTIN TIME 31.2 seconds 22.5-36.0 (BEAKER) (test code = 760) BASIC METABOLIC [id number] 05:57:00 Test Item Value Reference Range Interpretation [...] 1092) DATA TO CALCULA TE ESTIMATED GFR. [id number] 05:51:00 Test Item Value Reference Range Interpretation Comments MAGNESIUM (BEAKER) (test code = 1.9 mg/dL 1.6-2.6 627) [id number] 05:35:00 Test Item Value Reference Range Interpretation [...] 2.5-3.5 for patients wiht mechanical heart valves.PROTHROMBIN [id number] 05:34:00 Test Item Value Reference Range Interpretation [...] mechanical heart valves.CBC W/PLT COUNT & AUTO [id number] 05:24:00 Test Item Value Reference Range Interpretation [...]
[2023-07-16] MEDS ORDERED: FENTANYL CITR 100 MCG/2 ML ONE ×2 (18:47→20:42)
[2023-07-16 18:51] LABS: Hematocrit 39.2 % (36.0-45.0); Lymphocytes % 25.3 % (15.3-44.8); MCV 97.4 fL (80-100); MPV 8.6 fL (7.6-11.3); Platelets 258 thou/uL (152-406); RBC Red Blood Cell Count 4.02 M/uL (3.86-4.86)
[2023-07-16 19:05] LABS: Albumin 3.4 g/dL (3.4-5.0); Bilirubin Total 0.3 mg/dL (0.2-1.0); Potassium 4.5 mEq/L (3.5-5.1); Protein, Total 8.3 g/dL (6.4-8.2)
[2023-07-16] MEDS ORDERED: ONDANSETRON 4 MG/2 ML VIAL ONE ×2 (19:24→19:26)
--- NOTE | 2023-07-16 20:09 | RAD REPORT ---
EXAM DESCRIPTION: CT - Chest Abdomen Pelvis W Cont - 07/16/2023 7:31 pm CLINICAL HISTORY: Chest and abdomen pain. TRAUMA COMPARISON: No comparisons TECHNIQUE: Approximately 100 mL nonionic IV contrast was administered to the patient. All CT scans are performed using dose optimization technique as appropriate and may include automated exposure control or mA/KV adjustment according to patient size. FINDINGS: The lungs are clear.No pleural or pericardial effusion.No intrathoracic adenopathy.Small h iatal hernia. Cholecystectomy clips. The liver, spleen, pancreas, adrenal glands and kidneys are within normal limits. No bowel obstruction, free air, free fluid or abscess. Appendectomy. No pathologic lymphadenopathy i n the abdomen or pelvis. Lateral right tenth rib shows subtle cortical irregularity. This may represent nondisplaced fracture. IMPRESSION: Possible minimal fracture right lateral tenth rib.Elsewhere, no acute process seen.
[2023-07-16] MEDS ORDERED: HYDROCODONE/APAP 10/325 TAB ONE (20:25)
--- NOTE | 2023-07-16 20:32 | EDPHYS ---
Physician Documentation [facility] Name: Ivet Calderon Age: 72 yrs Sex: Female : 1950 Arrival Date: 07/16/2023 Time: 18:17 Bed 2 Private MD: ED Physician Medardo Lu HPI: 07/16 19:15 This 72 yrs old Female presents to ER via EMS with complaints of Fall Injury. rt 19:15 Patient presents to the ED with slip and fall while in the bathtub. Her right side at rt the lower rib margin hit the side of the bathtub causing a pain that is aching nature, nonradiating, moderate severity. Denies hitting her head, loss of conscious, other acute complaints. Symptoms moderate severity, no other aggravating or alleviating factors.. Historical: - Allergies: 18:21 Morphine; ld1 - Home Meds: 18:22 clopidogrel 75 mg oral tablet daily [Active]; ld1 - PMHx: 18:21 diabetes mellitus; heart attack; Hypercholesterolemia; Hypertension; CVA (Hypertension);ld1 - PSHx: 18:21 Appendectomy; Cholecystectomy; open heart surgery; Stented artery; ld1 - Immunization history:: Adult Immunizations up to date. - Social history:: Smoking status: Patient denies any tobacco usage or history of. Patient/guardian denies using alcohol. - Immunization history: Last tetanus immunization: - up to date. - Family history:: not pertinent. ROS: 19:15 Constitutional: Negative for fever, chills, and weight loss, Respiratory: Negative for rt shortness of breath, cough, wheezing, and pleuritic chest pain, Abdomen/GI: Negative for abdominal pain, nausea, vomiting, diarrhea, and constipation, MS/Extremity: Negative for injury and deformity, Skin: Negative for injury, rash, and discoloration, Neuro: Negative for headache, weakness, numbness, tingling, and seizure, Psych: Negative for depression, anxiety, suicide ideation, homicidal ideation, and hallucinations, Exam: 19:15 Constitutional: This is a well developed, well nourished patient who is awake, alert, rt and in no acute distress. Head/Face: Normocephalic, atraumatic. Neck: Trachea midline, no thyromegaly or masses palpated, and no cervical lymphadenopathy. Supple, full range of motion without nuchal rigidity, or vertebral point tenderness. No Meningismus. Cardiovascular: Regular rate and rhythm with a normal S1 and S2. No gallops, murmurs, or rubs. Normal PMI, no JVD. No pulse deficits. Respiratory: Lungs have equal breath sounds bilaterally, clear to auscultation and percussion. No rales, rhonchi or wheezes noted. No increased work of breathing, no retractions or nasal flaring. Abdomen/GI: Soft, non-tender, with normal bowel sounds. No distension or tympany. No guarding or rebound. No evidence of tenderness throughout. Skin: Warm, dry with normal turgor. Normal color with no rashes, no lesions, and no evidence of cellulitis. MS/ Extremity: Pulses equal, no cyanosis. Neurovascular intact. Full, normal range of motion. Neuro: Awake and alert, GCS 15, oriented to person, place, time, and situation. Cranial nerves II-XII grossly intact. Motor strength 5/5 in all extremities. Sensory grossly intact. Cerebellar exam normal. Normal gait. Psych: Awake, alert, with orientation to person, place and time. Behavior, mood, and affect are within normal limits. 19:15 Chest/axilla: Bruising and tenderness noted to the right lateral lower rib margin, no crepitus felt, no other signs of trauma.. Vital Signs: 18:20 BP 186 / 104; Pulse 75; Resp 18; Temp 98.4(TE); Pulse Ox 99% on R/A; Weight 74.84 kg; ld1 Height 5 ft. 4 in. ; Pain 10/10; 18:52 BP 213 / 85; Pulse 85; Resp 16; Pulse Ox 98% on 2 lpm NC; ld1 19:34 BP 188 / 72; Pulse 63; Resp 14; Pulse Ox 98% on R/A; rv 20:45 BP 165 / 71; Pulse 66; Resp 16; Temp 98; Pulse Ox 98% on R/A; rv 18:20 Body Mass Index 28.32 (74.84 kg, 162.56 cm) ld1 18:20 Pain Scale: Adult ld1 Jason Coma Score: 18:24 Eye Response: spontaneous(4). Motor Response: obeys commands(6). Verbal Response: ld1 oriented(5). Total: 15. 19:34 Eye Response: spontaneous(4). Motor Response: obeys commands(6). Verbal Response: rv oriented(5). Total: 15. 20:45 Eye Response: spontaneous(4). Motor Response: obeys commands(6). Verbal Response: rv oriented(5). Total: 15. Trauma Score (Adult): 18:24 Eye Response: spontaneous(1); Verbal Response: oriented(1); Motor Response: obeys ld1 commands(2); Systolic BP: > 89 mm Hg(4); Respiratory Rate: 10 to 29 per min(4); Jason Score: 15; Trauma Score: 12 MDM: 18:21 Patient medically screened. rt 20:38 Differential diagnosis: Contusion, fracture, liver laceration. Data reviewed: vital rt signs, nurses notes, lab test result(s), radiologic studies. I considered the following discharge prescriptions or medication management in the emergency department Medications were administered in the Emergency Department. See MAR. Independent interpretation of the following test(s) in the Emergency Department CT Scan: My interpretation is No liver lacerations and interpretation of the CT scan images. Test considered but Not performed: CT: Denies head trauma, CT scan of the head not indicated. Care significantly affected by the following chronic conditions: Diabetes. Counseling: I had a detailed discussion with the patient and/or guardian regarding the historical points, exam findings, and any diagnostic results supporting the discharge/admit diagnosis, lab results, radiology results, the need for outpatient follow up, to return to the emergency department if symptoms worsen or persist or if there are any questions or concerns that arise at home. Response to treatment: the patient's symptoms have mildly improved after treatment. 07/16 18:26 Order name: CBC with Diff; Complete Time: 19:10 rt 07/16 18:26 Order name: CMP; Complete Time: 19:10 rt 07/16 18:26 Order name: CT Chest, Abdomen, Pelvis - W/Contrast; Complete Time: 20:10 rt Administered Medications: 18:40 Drug: fentaNYL (PF) IVP 100 mcg IVP once Route: IVP; Site: right wrist; kc6 20:33 Follow up: Response: No adverse reaction bp 19:21 Drug: Ondansetron IVP 4 mg IVP once; over 2 minutes Route: IVP; Site: right forearm; bp 20:33 Follow up: Response: No adverse reaction bp 20:16 Drug: HYDROcodone-acetaminophen PO 10 mg-325 mg 1 tabs PO once Route: PO; rv 20:34 Follow up: Response: No adverse reaction bp 20:33 Drug: fentaNYL (PF) IVP 50 mcg IVP once Route: IVP; Site: right forearm; bp 20:34 Follow up: Response: No adverse reaction bp Disposition Summary: 07/16/23 20:31 Discharge Ordered Notes: Location: Home rt Problem: new rt Symptoms: have improved rt Condition: Stable rt Diagnosis - Nondisplaced fracture of right 10th rib rt Followup: rt - With: Private Physician - When: 2 - 3 days - Reason: Discharge Instructions: - Discharge Summary Sheet rt - Rib Fracture rt Forms: - Medication Reconciliation Form rt - Thank You Letter rt - Antibiotic Education rt - Prescription Opioid Use rt - Patient Portal Instructions rt - Leadership Thank You Letter rt Prescriptions: - ondansetron 4 mg Oral Tablet,disintegrating - take 1 tablet ORAL route every 6 hours; 18 tablet; Refills: 0, Product rt Selection Permitted - Tramadol 50 mg Oral tablet - take 1 tablet ORAL route every 8 hours as needed for pain; 18 tablet; Refills: rt 0, Product Selection Permitted Signatures: Dispatcher [employer] Kade Villatoro RN RN Ruiz Cerna RN RN rv Sims, Lauren, RN RN ld1 Freya Wiggins RN RN [id number] Medardo Lu MD MD rt
--- NOTE | 2023-07-16 20:32 | ER ---
Nurse's Notes [facility] Name: Ivet Calderon Age: 72 yrs Sex: Female : 1950 Arrival Date: 07/16/2023 Time: 18:17 Bed 2 Private MD: Diagnosis: Nondisplaced fracture of right 10th rib Presentation: 07/16 18:20 Chief complaint: EMS states: toned out to patient home for fall. Pt denies hitting ld1 head, fell onto side of bathtub. C/O pain to right ribs/flank. Pt on blood thinners. Coronavirus screen: At this time, the client does not indicate any symptoms associated with coronavirus-19. Ebola Screen: No symptoms or risks identified at this time. Initial Sepsis Screen: Does the patient meet any 2 criteria? No. Patient's initial sepsis screen is negative. Does the patient have a suspected source of infection? No. Patient's initial sepsis screen is negative. Risk Assessment: Do you want to hurt yourself or someone else? Patient reports no desire to harm self or others. Onset of symptoms was July 16, 2023. 18:20 Method Of Arrival: EMS: [facility] ld1 18:20 Acuity: DORYS 3 ld1 18:24 Care prior to arrival: None. Mechanism of Injury: Fall from standing position. Trauma ld1 event details: Injury occurred in the [facility]. Triage Assessment: 18:22 General: Appears in no apparent distress. uncomfortable, Behavior is cooperative, ld1 anxious, crying. Pain: Complains of pain in right lateral posterior chest and anterior aspect of right lateral abdomen Pain does not radiate. Pain currently is 10 out of 10 on a pain scale. Quality of pain is described as throbbing, Pain began suddenly. EENT: No signs and/or symptoms were reported regarding the EENT system. Neuro: Level of Consciousness is awake, alert, obeys commands, Oriented to person, place, time, situation. Cardiovascular: Capillary refill < 3 seconds Patient's skin is warm and dry. Rhythm is sinus rhythm. Respiratory: Airway is patent Respiratory effort is even, unlabored. GI: Abdomen is round non-distended. : No signs and/or symptoms were reported regarding the genitourinary system. Derm: No signs and/or symptoms reported regarding the dermatologic system. Musculoskeletal: No signs and/or symptoms reported regarding the musculoskeletal system. Trauma Activation: Not Applicable Physician: ED Physician; Name: ; Notified At: ; Arrived At: Physician: General Surgeon; Name: ; Notified At: ; Arrived At: Physician: Radiology; Name: ; Notified At: ; Arrived At: Physician: Respiratory; Name: ; Notified At: ; Arrived At: Physician: Lab; Name: ; Notified At: ; Arrived At: Historical: - Allergies: 18:21 Morphine; ld1 - Home Meds: 18:22 clopidogrel 75 mg oral tablet daily [Active]; ld1 - PMHx: 18:21 diabetes mellitus; heart attack; Hypercholesterolemia; Hypertension; CVA (Hypertension);ld1 - PSHx: 18:21 Appendectomy; Cholecystectomy; open heart surgery; Stented artery; ld1 - Immunization history:: Adult Immunizations up to date. - Social history:: Smoking status: Patient denies any tobacco usage or history of. Patient/guardian denies using alcohol. - Immunization history: Last tetanus immunization: - up to date. - Family history:: not pertinent. Screenin:[facility] ED Fall Risk Assessment (Adult) History of falling in the last 3 months, ld1 including since admission Yes- single mechanical fall (1 pt). Abuse screen: Denies threats or abuse. Denies injuries from another. Nutritional screening: No deficits noted. Tuberculosis screening: No symptoms or risk factors identified. Primary Survey: 18:24 NO uncontrolled hemorrhage observed. Breathing/Chest: Spontaneous respiratory effort, ld1 equal unlabored respirations, breath sounds clear bilaterally, regular pattern, symmetrical chest rise and fall. Circulation: No external hemorrhage present. Regular and strong central pulse, skin warm/dry/normal color. Disability Client is alert. Exposure/Environment: All clothing and personal items were removed. Forensic evidence collection is not deemed to be indicated at this time. Items placed in patient belonging bag. There is no evidence of uncontrolled external bleeding. Reassessment Breathing: Spontaneous respiratory effort, equal unlabored respirations, breath sounds clear bilaterally, regular pattern with symmetrical chest rise and fall. Circulation: No external hemorrhage noted. Regular and strong central pulse, skin warm/dry/normal color. Disability: Alert. Assessment: 18:23 Reassessment: See triage assessment. ERP at bedside assessing patient. ld1 18:52 Reassessment: Patient appears in no apparent distress at this time. Patient and/or ld1 family updated on plan of care and expected duration. Pain level reassessed. Placed patient on 2L NC. After medication administration patient desat to 84% RA. Patient states feeling better. 20:44 Reassessment: Patient is alert, oriented x 3, equal unlabored respirations, skin rv warm/dry/pink. Patient states feeling better. Vital Signs: 18:20 BP 186 / 104; Pulse 75; Resp 18; Temp 98.4(TE); Pulse Ox 99% on R/A; Weight 74.84 kg; ld1 Height 5 ft. 4 in. ; Pain 10/10; 18:52 BP 213 / 85; Pulse 85; Resp 16; Pulse Ox 98% on 2 lpm NC; ld1 19:34 BP 188 / 72; Pulse 63; Resp 14; Pulse Ox 98% on R/A; rv 20:45 BP 165 / 71; Pulse 66; Resp 16; Temp 98; Pulse Ox 98% on R/A; rv 18:20 Body Mass Index 28.32 (74.84 kg, 162.56 cm) ld1 18:20 Pain Scale: Adult ld1 Erhard Coma Score: 18:24 Eye Response: spontaneous(4). Motor Response: obeys commands(6). Verbal Response: ld1 oriented(5). Total: 15. 19:34 Eye Response: spontaneous(4). Motor Response: obeys commands(6). Verbal Response: rv oriented(5). Total: 15. 20:45 Eye Response: spontaneous(4). Motor Response: obeys commands(6). Verbal Response: rv oriented(5). Total: 15. Trauma Score (Adult): 18:24 Eye Response: spontaneous(1); Verbal Response: oriented(1); Motor Response: obeys ld1 commands(2); Systolic BP: > 89 mm Hg(4); Respiratory Rate: 10 to 29 per min(4); Jason Score: 15; Trauma Score: 12 ED Course: 18:20 Patient arrived in ED. ld1 18:21 Medardo Lu MD is Attending Physician. rt 18:21 Triage completed. ld1 18:22 Arm band placed on right wrist. ld1 18:23 Patient has correct armband on for positive identification. Placed in gown. Bed in low ld1 position. Call light in reach. Side rails up X2. conveyor monitor on. Pulse ox on. NIBP on. Door closed. Noise minimized. Warm blanket given. 18:23 No provider procedures requiring assistance completed. ld1 18:24 Merced Coto, RN is Primary Nurse. ld1 18:24 Patient maintains SpO2 saturation greater than 95% on room air. ld1 18:40 CMP Sent. kc6 18:40 CBC with Diff Sent. kc6 18:43 Inserted saline lock: 20 gauge in right wrist, using aseptic technique. Blood collected.kc6 19:03 Primary Nurse role handed off by Merced Coto, RN bp 19:03 Kade De La Torre, RN is Primary Nurse. bp 19:33 CT Chest, Abdomen, Pelvis - W/Contrast In Process Unspecified. EDMS 20:46 Provided Education on: incentive spirometry. rv 20:46 IV discontinued, intact, bleeding controlled, No redness/swelling at site. Pressure rv dressing applied. 20:47 Thermoregulation: warm blanket given to patient. rv Administered Medications: 18:40 Drug: fentaNYL (PF) IVP 100 mcg IVP once Route: IVP; Site: right wrist; kc6 20:33 Follow up: Response: No adverse reaction bp 19:21 Drug: Ondansetron IVP 4 mg IVP once; over 2 minutes Route: IVP; Site: right forearm; bp 20:33 Follow up: Response: No adverse reaction bp 20:16 Drug: HYDROcodone-acetaminophen PO 10 mg-325 mg 1 tabs PO once Route: PO; rv 20:34 Follow up: Response: No adverse reaction bp 20:33 Drug: fentaNYL (PF) IVP 50 mcg IVP once Route: IVP; Site: right forearm; bp 20:34 Follow up: Response: No adverse reaction bp Medication: 18:23 VIS not applicable for this client. ld1 Intake: 18:24 PO: 25ml (Water); Total: 25ml. ld1 Output: 18:24 Urine: 1ml; Total: 1ml. ld1 Outcome: 20:31 Discharge ordered by MD. rt 20:46 Discharged to home ambulatory, via wheelchair, with family, rv 20:46 Condition: improved 20:46 Discharge instructions given to patient, family, Instructed on discharge instructions, follow up and referral plans. medication usage, Demonstrated understanding of instructions, follow-up care, medications, Prescriptions given X 2, 20:47 Patient's length of stay was not longer than 2 hours. rv 20:47 Patient left the ED. rv Signatures: Dispatcher [employer] EDKade Christopher, RN RN Ruiz Cerna RN RN rv Merced Coto RN RN [email or web address] Freya Wiggins RN RN [email or web address] Medardo Lu MD MD rt
[2023-07-16 21:19] VITALS: O2SAT 98
[2023-07-16 21:21] VITALS: BP 165/71; TEMP 98
== END 2023-07-16 20:47 | disposition home or self-care (01) ==
LOC: ER 18:17
DX: S22.31XA Fracture of one rib, right side, initial encounter for closed fracture (principal); E11.9 Type 2 diabetes mellitus without complications; I10 Essential (primary) hypertension; Z88.5 Allergy status to narcotic agent
CPT/HCPCS: 85025; 36415; 80053; 71260; 74177; 99285; Q9967; J3010 ×2; J2405

== ENCOUNTER 2023-07-19 10:45 | Emergency (ER) | payer OTHER ==
--- OUTSIDE RECORDS SUMMARY | 2023-07-19 10:54 | XMS REPORT | Continuity of Care Document ---
:1950 Author Organization [facility] t Address [address] [place] [address] [place] [id number] Care Team Providers Name Role Phone No [...] Attending Clinician SunilCharlette Attending Clinician Doctor Unassigned, [place] Attending Clinician Unavailable Juan Gallardo MD Attending Clinician [phone] Maribell Moe MD Attending Clinician Ige-Odunuga_J_AH Attending Clinician Unavailable YAMEL MONIQUE Attending Clinician Unavailable JUAN GALLARDO Admitting Clinician Unavailable ALDEN ISAACS Admitting Clinician Unavailable Ige-Odun[place]_J_AH Admitting Clinician Unavailable YAMEL MONIQUE Admitting Clinician Unavailable Payers Payer Name Policy Type Policy Number Effective Date Expiration Date S ida [facility] [id number] 2018 ALL 00:00:00 [employer] MEDICARE [id number] 2023 ADVANTAGE HMO 00:00:00 G-mode [id number] 2022spring 00:00:00 HUMANA MEDICARE C1 [id number] [facility] HUMANA MEDICARE C1 [id number] [facility] HUMANA MEDICARE C1 [id number] [facility] - [facility] HUMANA MEDICARE C1 [id number] [facility] Sp [facility] - [facility] HUMANA GOLD PLS [id number] 2021 O 00:00:00 [facility] [id number] [facility] (MEDICARE REPLACEMENT/ADV ANTAGE - HMO) [...] by 1 by 0-16 Reji Gallardo on [facility] on 00:00: Me dical 07/29/2019 07/29/2019 00 Ce nter Coronary Coronary Disease Active 2018-10 CHI S t artery artery 0-15 Reji disease disease 00:00: Medical 00 Center Other Other Disease Active Overview: Univer s appendicit appendicit 03-19 Formattin ity of is is 00:00: g of this [place] 00 note Medical might be Branch different from the original. Added automatic ally from request for surgery [id number] HLD HLD Disease Active Univers (hyperlipi (hyperlipi 04-18 it y of demia) demia) 00:00: [place] [facility] Abnormal Abnormal Disease Active Unive rs EKG EKG 04-18 ity of 00:00: [place] [address] Medical Branch Anemia of Anemia in Problem Com mon chronic chronic Spirit disorder illness - [facility] Anemia due Anemia, Problem Comm on to blood blood loss Spir it loss - [facility] Type II Diabetic Problem Common diabetes eye exam Spirit mellitus - CHI without complicati [facility] [id number] Demand Problem Common ischemia Spirit - [facility] [id number] Stenosis Problem Comm on of right Spirit vertebral - [facility] artery [facility] Laboratory Abnormal Problem Com mon test laboratory [facility] result test - CH[facility] abnormal [facility] [id number] Other Problem Common obesity Spirit due to - CHI excess [facility] [id number] Body mass Problem Com mon index Spirit [BMI] - CHI 31.0-31.9, [facility] [id number] Mixed Problem Common hyperlipid Spirit emia - [facility] [id number] Stented Problem Commo n coronary Spirit artery - [facility] [id number] Essential Problem Comm on (primary) Spirit hypertensi - [facility] on [facility] [id number] Essen Problem Common hyperten Spirit preg-unsp - [facility] [id number] Coronary Problem Comm on artery Spirit disease - CHI involving [place] [facility] coronary Medical artery of Center [place] heart with other form of angina pectoris [id number] Type 2 Problem Common diabetes Spirit mellitus - CHI with 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 - CHI thrombosis thrombosis [facility] of [facility] cerebral unspecifie Medi albert arteries d Center posterior cerebral artery Angina Angina Problem Common pectoris pectoris, Spiri t unspecifie - [facility] d [facility] Acute Acute Disease Recurre [facility] St respirator respirator nce Daniela kes y y Medical insufficie insufficie Ce nter ncy ncy Acute Acute Disease Active [facility] St blood loss blood loss Daniela kes anemia anemia [facility] Center Hyperglyce Hyperglyce Disease Active C HI [facility] Chronic Chronic Disease Active [...] morphine morphine Active [place] [facility] NO KNOWN Drug Active Univers ALLERGIE Class ity of S [facility] Family History Family Member Diagnosis Comments Start Date Stop Date Source Natural brother Heart attack [facility] Natural father Diabetes [facility] Natural father Heart disease [facility] Natural mother Diabetes [facility] Natural mother Heart attack [facility] Social History Social Habit Start Date Stop Date Quantity Comments Source History SDOH [facility] Alcohol Comment Medical C enter History of Tobacco Common Spirit - Use [facility] History SDOH [facility] Alcohol Std Drinks Medica [facility] History SDOH [facility] Alcohol Binge Medical Tina ter Sexual orientation [facility] of Social 2023-06-25 2023-06-25 [facility] function 00:00:00 00:00:00 Exposure to 2023-02-09 2023-02-19 Not sure University of SARS-CoV-2 (event) 00:00:00 15:54:00 [facility] Alcohol intake 2020-10-03 2020-10-03 Current JEOVANY Ferro es 00:00:00 00:00:00 non-drinker of Medical Ce nter alcohol (finding) History SDOH 2019-07-29 2019-07-29 1 JEOVANY Abrams Alcohol Frequency 00:00:00 00:00:00 Medical [place] Tobacco use and 2019-03-19 2019-03-19 Smokeless Universit y of exposure 00:00:00 00:00:00 tobacco non-user [facility] Sex Assigned At [birth year] JEOVANY Agarwals 00:00:00 00:00:00 [facility] Center Smoking Status Start Date Stop Date Source Tobacco smoking consumption [facility] Never Smoker [facility] Medications Ordered Filled Start Stop Current [...] 15U Inject 15 UT glargine 9-12 Units [facility] (Lantus) 11:13: under the 100 UNIT/ML 29 skin every injection night. cefTRIAXone 2022-0 3- No 1000mg 1,000 mg, Univers (ROCEPHIN) 5-10 05-10 IV ity of 1,000 mg in 01:15: 01:44 Piggyback, [place] NaCl 0.9% 00 :00 ONCE, 1 Medical [...] Sat02/19/23 at 2014, JASON Nitrofurant 2022- No [id number] 100mg Take 1 Univers oin&Nit. 02-19 capsule [...] Medical 06/18/21 Branch at 1145, JASON
[facility] member approving Restricted medication : CAROL ANN BEATTY HYDROcodone 2020- No 1{tbl} 1 tablet, Univers -acetaminop 06-18 Oral, ity of hen (NORCO) 16:45: 15:41 [place] 10[place]325 mg 00 :00 dose, Sun Medic al tablet 1 06/18/21 at Branch tablet 1145, Routine clopidogreL Yes 75mg Take 75 mg Univers 75 mg 06-18 by mouth. ity of tablet 16:10: [address] metoprolol Yes 25mg Take 25 mg U nivers tartrate 06-18 by mouth. ity of mg tablet 16:10: [address] clopidogreL Yes 75mg Take 75 mg Univers 75 mg 06-18 by mouth. ity of tablet 16:10: [address] metoprolol Yes 25mg Take 25 mg U nivers tartrate 06-18 by mouth. ity of mg tablet 16:10: [address] clopidogreL Yes 75mg Take 75 mg Univers 75 mg 06-18 by mouth. ity of tablet 16:10: [address] metoprolol Yes 25mg Take 25 mg U nivers tartrate 25 06-18 by mouth. ity of mg tablet 16:10: [address] clopidogreL Yes 75mg Take 75 mg Univers 75 mg 06-18 by mouth. ity of tablet 16:10: [address] metoprolol Yes 25mg Take 25 mg U nivers tartrate 25 06-18 by mouth. ity of mg tablet 16:10: [address] clopidogreL Yes 75mg Take 75 mg Univers 75 mg 06-18 by mouth. ity of tablet 16:10: [address] metoprolol Yes 25mg Take 25 mg U nivers tartrate 25 06-18 by mouth. ity of mg tablet 16:10: [address] atorvastati 2020- No 80mg Take 80 [...] 06-18 by mouth. ity of tablet 11:10: [place] [address] Medical Branch metoprolol Yes 25mg Take 25 mg U nivers tartrate 06-18 by mouth. ity of mg tablet 11:10: [place] [address] Medical Branch traMADoL 50 2020- No [id number] [...] 2-21 by mouth [facility]ukes tablet 11:03: daily. [address] [facility] 2019-10 Yes 80mg QD Take [address] [facility] (LIPITOR) 2-21 by mouth Luke s 40 MG 11:03: daily . Medical tablet [address] [place] [address] metFORMIN 2019-10 Yes 850mg Take [address] (GLUCOPHAGE 2-21 mg by Lukes ) 850 MG 11:03: mouth 2 Medica l tablet 52 (two) Center times daily with breakfast and dinner. clopidogreL 2019-10 Yes 75mg QD Take [address] (PLAVIX) 75 2-21 by mouth Luke s mg tablet 11:03: daily. Medica l [address] [place] [address] metoprolol 2019-10 Yes 25mg Q.5D Take [address] tartrate 2-21 by mouth 2 Lukes (LOPRESSOR) 11:03: (two) Medic al 25 MG 52 times Center tablet daily. aspirin 81 2019-10 Yes 81mg QD Take [address] MG EC 2-21 by mouth [facility]ukes tablet 11:03: daily. [address] [facility]-10 Yes 80mg QD Take [address] n (LIPITOR) 2-21 by mouth Luke s 40 MG 11:03: daily . Medical tablet [address] [place] [address] metFORMIN 2019-10 Yes 850mg Take [address] (GLUCOPHAGE 2-21 mg by Lukes ) 850 MG 11:03: mouth 2 Medica l tablet 52 (two) Center times daily with breakfast and dinner. clopidogreL 2019-10 Yes 75mg QD Take [address] (PLAVIX) 75 2-21 by mouth Luke s mg tablet 11:03: daily. Medica l [address] [place] [address] metoprolol 2019-10 Yes 25mg Q.5D Take [address] tartrate 2-21 by mouth 2 Lukes (LOPRESSOR) 11:03: (two) Medic al 25 MG 52 times Center tablet daily. aspirin 81 2019-10 Yes 81mg QD Take [address] MG EC 2-21 by mouth Lukes tablet 11:03: daily. [address] atorvastati 2019-10 Yes 80mg QD Take [address] n (LIPITOR) 2-21 by mouth Luke s 40 MG 11:03: daily . Medical tablet [address] [place] [address] metFORMIN 2019-10 Yes 850mg Take [address] (GLUCOPHAGE 2-21 mg by Lukes ) 850 MG 11:03: mouth 2 Medica l tablet 52 (two) Center times daily with breakfast and dinner. clopidogreL 2019-10 Yes 75mg QD Take [address] (PLAVIX) 75 2-21 by mouth Luke s mg tablet 11:03: daily. Medica l [address] [place] [address] metoprolol 2019-10 Yes 25mg Q.5D Take [address] tartrate 2-21 by mouth 2 Lukes (LOPRESSOR) 11:03: (two) Medic al 25 MG 52 times Center tablet daily. aspirin 81 2019-10 Yes 81mg QD Take [address] MG EC 2-21 by mouth Lukes tablet 11:03: daily. [address] [facility]-10 Yes 80mg QD Take [address] n (LIPITOR) 2-21 by mouth Luke s 40 MG 11:03: daily . Medical tablet [address] [place] [address] metFORMIN 2019-10 Yes 850mg Take [address] (GLUCOPHAGE 2-21 mg by Lukes ) 850 MG 11:03: mouth 2 Medica l tablet 52 (two) Center times daily with breakfast and dinner. clopidogreL 2019-10 Yes 75mg QD Take [address] (PLAVIX) 75 2-21 by mouth Luke s mg tablet 11:03: daily. Medica [address] metoprolol 2019-10 Yes 25mg Q.5D Take [address] tartrate 2-21 by mouth 2 [facility]ukes (LOPRESSOR) 11:03: (two) Medic al 25 MG 52 times Center tablet daily. aspirin 81 2019-10 Yes 81mg QD Take [address] MG EC 2-21 by mouth Lukes tablet 11:03: daily. [address] atorvasta 2019-10 Yes 80mg QD Take [address] n (LIPITOR) 2-21 by mouth Luke s 40 MG 11:03: daily . Medical tablet [address] [place] [address] metFORMIN 2019-10 Yes 850mg Take [address] (GLUCOPHAGE 2-21 mg by Lukes ) 850 MG 11:03: mouth 2 Medica l tablet 52 (two) Center times daily with breakfast and dinner. clopidogreL 2019-10 Yes 75mg QD Take [address] (PLAVIX) 75 2-21 by mouth Luke s mg tablet 11:03: daily. [address] metoprolol 2019-10 Yes 25mg Q.5D Take [address] tartrate 2-21 by mouth 2 Lukes (LOPRESSOR) 11:03: (two) Medic al 25 MG 52 times Center tablet daily. aspirin 81 2019-10 Yes 81mg QD Take [address] MG EC 2-21 by mouth Lukes tablet 11:03: daily. [address] atorvastati 2019-10 Yes 80mg QD Take [address] n (LIPITOR) 2-21 by mouth Luke s 40 MG 11:03: daily . Medical [address] metFORMIN 2019-10 Yes 850mg Take [address] (GLUCOPHAGE 2-21 mg by Lukes ) 850 MG 11:03: mouth 2 Medica l tablet 52 (two) Center times daily with breakfast and dinner. clopidogreL 2019-10 Yes 75mg QD Take [address] (PLAVIX) 75 2-21 by mouth Luke s mg tablet 11:03: daily. [address] metoprolol 2019-10 Yes 25mg Q.5D Take [address] tartrate 2-21 by mouth 2 Lukes (LOPRESSOR) 11:03: (two) Medic al 25 MG 52 times Center tablet daily. aspirin 81 2019-10 Yes 81mg QD Take [address] MG EC 2-21 by mouth Lukes tablet 11:03: daily. [address] atorvastati 2019-10 Yes 80mg QD Take [address] n (LIPITOR) 2-21 by mouth Luke s 40 MG 11:03: daily . Medical [address] metFORMIN 2019-10 Yes 850mg Take [address] (GLUCOPHAGE 2-21 mg by Lukes ) 850 MG 11:03: mouth 2 Medica l tablet 52 (two) Center times daily with breakfast and dinner. clopidogreL 2019-10 Yes 75mg QD Take [address] (PLAVIX) 75 2-21 by mouth Luke s mg tablet 11:03: daily. [address] metoprolol 2019-10 Yes 25mg Q.5D Take [address] tartrate 2-21 by mouth 2 Lukes (LOPRESSOR) 11:03: (two) Medic al 25 MG 52 times Center tablet daily. aspirin 81 2019-10 Yes 81mg QD Take [address] MG EC 2-21 by mouth Lukes tablet 11:03: daily. [address] atorvastati 2019-10 Yes 80mg QD Take [address] n (LIPITOR) 2-21 by mouth Luke s 40 MG 11:03: daily . Medical tablet [address] [place] [address] metFORMIN 2019-10 Yes 850mg Take [address] (GLUCOPHAGE 2-21 mg by Lukes ) 850 MG 11:03: mouth 2 Medica l tablet 52 (two) Center times daily with breakfast and dinner. clopidogreL 2019-10 Yes 75mg QD Take [address] (PLAVIX) 75 2-21 by mouth Luke s mg tablet 11:03: daily. [address] metoprolol 2019-10 Yes 25mg Q.5D Take [address] tartrate 2-21 by mouth 2 Lukes (LOPRESSOR) 11:03: (two) Medic al 25 MG 52 times Center tablet daily. aspirin 81 2019-10 Yes 81mg QD Take [address] MG EC 2-21 by mouth Lukes tablet 11:03: daily. [address] atorvastati 2019-10 Yes 80mg QD Take [address] n (LIPITOR) 2-21 by mouth Luke s 40 MG 11:03: daily . Medical [address] metFORMIN 2019-10 Yes 850mg Take [address] (GLUCOPHAGE 2-21 mg by Lukes ) 850 MG 11:03: mouth 2 Medica l tablet 52 (two) Center times daily with breakfast and dinner. clopidogreL 2019-10 Yes 75mg QD Take [address] (PLAVIX) 75 2-21 by mouth Luke s mg tablet 11:03: daily. [address] metoprolol 2019-10 Yes 25mg Q.5D Take [address] tartrate 2-21 by mouth 2 Lukes (LOPRESSOR) 11:03: (two) Medic al 25 MG 52 times Center tablet daily. aspirin 81 2019-10 Yes 81mg QD Take [address] MG EC 2-21 by mouth Lukes tablet 11:03: daily. [address] 2019-10 Yes 80mg QD Take [address] n (LIPITOR) 2-21 by mouth Luke s 40 MG 11:03: daily . Medical tablet [address] [place] [address] metFORMIN 2019-10 Yes 850mg Take [address] (GLUCOPHAGE 2-21 mg by Lukes ) 850 MG 11:03: mouth 2 Medica l tablet 52 (two) Center times daily with breakfast and dinner. clopidogreL 2019-10 Yes 75mg QD Take [address] (PLAVIX) 75 2-21 by mouth Luke s mg tablet 11:03: daily. Medica l [address] [place] [address] metoprolol 2019-10 Yes 25mg Q.5D Take [address] tartrate 2-21 by mouth 2 Lukes (LOPRESSOR) 11:03: (two) Medic al 25 MG 52 times Center tablet daily. aspirin 81 2019-10 Yes 81mg QD Take [address] MG EC 2-21 by mouth Lukes tablet 11:03: daily. [address] atorvastati 2019-10 Yes 80mg QD Take [address] n (LIPITOR) 2-21 by mouth Luke s 40 MG 11:03: daily . Medical tablet [address] [place] [address] metFORMIN 2019-10 Yes 850mg Take [address] (GLUCOPHAGE 2-21 mg by Lukes ) 850 MG 11:03: mouth 2 Medica l tablet 52 (two) Center times daily with breakfast and dinner. clopidogreL 2019-10 Yes 75mg QD Take [address] (PLAVIX) 75 2-21 by mouth Luke s mg tablet 11:03: daily. Medica [address] metoprolol 2019-10 Yes 25mg Q.5D Take [address] tartrate 2-21 by mouth 2 Lukes (LOPRESSOR) 11:03: (two) Medic al 25 MG 52 times Center tablet daily. traMADoL 2019-10 Yes 50mg Take [address] (ULTRAM) 50 2-08 by mouth Luke s mg tablet 00:00: every 6 Medic al 00 (six) Center hours as needed for pain. traMADoL 2019- Yes 50mg Take [address] [...] daily. Medic al 26 :00 Center acetaminoph 2019- 2020- No 1{tbl} Take [address] en-codeine -09-13 tablet by Dhruv es (TYLENOL 13:32: 00:00 mouth Medical #3) 300-30 20 :00 every 6 Center mg per (six) tablet hours as needed for Pain. acetaminoph 2019-10 2020- No 1{tbl} Take [address] en-codeine 209-13 tablet by Dhruv es (TYLENOL 13:32: 00:00 [...] 0-14 by mouth. ity of tablet 00:00: [place] [facility] citalopram 2019-10 Yes 20mg Take 20 mg U nivers 20 mg 0-14 by mouth. ity of tablet 00:00: [place] [facility] citalopram 2019-10 Yes 20mg Take 20 mg U nivers 20 mg 0-14 by mouth. ity of tablet 00:00: [place] [facility] citalopram 2019-10 Yes 20mg Take 20 mg U nivers 20 mg 0-14 by mouth. ity of tablet 00:00: [place] [facility] citalopram 2019-10 Yes 20mg Take 20 mg U nivers 20 mg 0-14 by mouth. ity of tablet 00:00: [place] [facility] citalopram 2019-10 Yes 20mg Take 20 mg U nivers 20 mg 0-14 by mouth. ity of tablet 00:00: [place] [facility] citalopram 2019-10 Yes 20mg QD Take [address] (CeleXA) 20 0-14 by mouth Luke s MG tablet 00:00: daily. Medica l [place] citalopram 2019-10 Yes 20mg QD Take [address] (CeleXA) 20 0-14 by mouth Luke s MG tablet 00:00: daily. Medica l [place] citalopram 2019-10 Yes 20mg QD Take [address] (CeleXA) 20 0-14 by mouth Luke s MG tablet 00:00: daily. Medica l [place] citalopram 2019-10 Yes 20mg QD Take [address] (CeleXA) 20 0-14 by mouth Luke s MG tablet 00:00: [facility]. [facility] [place] [facility]10 Yes 20mg QD Take [address] (CeleXA) 20 0-14 by mouth Luke s MG tablet 00:00: daily. [facility] [place] citalopram 2019-10 Yes 20mg QD Take [address] (CeleXA) 20 0-14 by mouth Luke s MG tablet 00:00: daily. [facility] [place] citalopram 2019-10 Yes 20mg QD Take [address] (CeleXA) 20 0-14 by mouth Luke s MG tablet 00:00: daily. [facility] [place] citalopram 2019-10 Yes 20mg QD Take [address] (CeleXA) 20 0-14 by mouth Luke s MG tablet 00:00: daily. [facility] [place] citalopram 2019-10 Yes 20mg QD Take [address] (CeleXA) 20 0-14 by mouth Luke s MG tablet 00:00: daily. [facility] [place] citalopram 2019-10 Yes 20mg QD Take [address] (CeleXA) 20 0-14 by mouth Luke s MG tablet 00:00: daily. [facility] [place] citalopram 2019-10 Yes 20mg QD Take [address] (CeleXA) 20 0-14 by mouth Luke s MG tablet 00:00: daily. [facility] [place] metoprolol 2018-10- No 25mg Q.5D Take 1 [...] while due to financial issues atorvastati Yes [id number] 40mg Take 1 Univers n 40 mg [...] while due to financial issues atorvastati Yes [id number] 40mg Take 1 Univers n 40 mg [...] while due to financial issues atorvastati Yes [id number] 40mg Take 1 Univers n 40 mg [...] daily . Medi albert MG tablet 00 lisinopril Yes 20mg Take 1 Unive rs 20 mg 6-24 tablet by ity of tablet 00:00: mouth (two) Medical times Branch daily. Indication s: hasn't taken in a while due to financial issues atorvastati Yes [id number] 40mg Take 1 Univers n 40 mg [...] due to financial issues lisinopril 0 Yes 20mg Take 1 Unive rs 20 mg 6-24 tablet by ity of tablet 00:00: mouth 2 00 (two) Medical times Branch daily. Indication s: hasn't taken in a while due to financial issues atorvastati Yes [id number] 40mg Take 1 Univers n 40 mg [...] while due to financial issues atorvastati Yes [id number] 40mg Take 1 Univers n 40 mg 6-24 tablet by ity of tablet 00:00: mouth at [place] 00 bedtime. Medical Branch amLODIPine Yes 5mg Take 1 Unive rs 5 mg tablet 6-24 tablet by ity of 00:00: mouth [place] 00 daily. Medical Indication Branch s: hasn't taken in a while due to financial issues hydroCHLORO 0 Yes 12.5mg Take 1 Un zia thiazide [...] while due to financial issues atorvastati Yes [id number] 40mg Take 1 Univers n 40 mg [...] while due to financial issues atorvastati Yes [id number] 40mg Take 1 Univers n 40 mg 6-24 tablet by ity of tablet 00:00: mouth at [place] 00 bedtime. Medical Branch lisinopril Yes 40mg QD Take [address] (PRINIVIL,Z 6-24 by mouth Luke s ESTRIL) 20 00:00: daily . Medi albert MG tablet 00 [place] lisinopril Yes 40mg QD Take [address] (PRINIVIL,Z 6-24 by mouth Luke s ESTRIL) 20 00:00: daily . Medi albert MG tablet 00 [place] lisinopril Yes 40mg QD Take [address] (PRINIVIL,Z 6-24 by mouth Luke s ESTRIL) 20 00:00: daily . Medi albert MG tablet 00 [place] lisinopril Yes 40mg QD Take [address] (PRINIVIL,Z 6-24 by mouth Luke s ESTRIL) 20 00:00: daily . Medi albert MG tablet 00 [place] lisinopril Yes 40mg QD Take [address] (PRINIVIL,Z 6-24 by mouth Luke s ESTRIL) 20 00:00: daily . Medi albert MG tablet 00 [place] lisinopril 2019 Yes 40mg QD Take [address] (PRINIVIL,Z 6-24 by mouth Luke s ESTRIL) 20 00:00: daily . Medi albert MG tablet 00 [place] lisinopril Yes 40mg QD Take [address] (PRINIVIL,Z 6-24 by mouth Luke s ESTRIL) 20 00:00: daily . Medi albert MG tablet 00 [place] lisinopril Yes 40mg QD Take [address] (PRINIVIL,Z 6-24 by mouth Luke s ESTRIL) 20 00:00: daily . Medi albert MG tablet 00 [place] lisinopril 0 Yes 40mg QD Take [address] (PRINIVIL,Z 6-24 by mouth Luke s ESTRIL) 20 00:00: daily . Medi albert MG tablet 00 [place] lisinopril 0 Yes 40mg QD Take [address] (PRINIVIL,Z 6-24 by mouth Luke s ESTRIL) 20 00:00: daily . Medi albert MG tablet 00 [place] traMADOL 50 0 Yes [id number] 50mg Take 1 Univers mg tablet 6-17 tablet by ity o f 00:00: mouth [place] 00 every 6 Medical (six) Branch hours as needed for Pain (scale 7-10). traMADOL 50 0 Yes [id number] 50mg Take 1 Univers mg tablet 6-17 tablet by ity o f 00:00: mouth [place] 00 every 6 Medical (six) Branch hours as needed for Pain (scale 7-10). traMADOL 50 Yes [id number] 50mg Take 1 Univers mg tablet 6-17 tablet by ity o f 00:00: mouth [place] 00 every 6 Medical (six) Branch hours as needed for Pain (scale 7-10). traMADOL 50 0 Yes [id number] 50mg Take 1 Univers mg tablet 6-17 tablet by ity o f 00:00: mouth [place] 00 every 6 Medical (six) Branch hours as needed for Pain (scale 7-10). traMADOL 50 Yes [id number] 50mg Take 1 Univers mg tablet 6-17 tablet by ity o f 00:00: mouth [place] 00 every 6 Medical (six) Branch hours as needed for Pain (scale 7-10). traMADOL 50 2018-0 Yes [id number] 50mg Take 1 Univers mg tablet 6-17 tablet by ity o f 00:00: mouth [place] 00 every 6 Medical (six) Branch hours as needed for Pain (scale 7-10). traMADOL 50 2018-0 Yes [id number] 50mg Take 1 Univers mg tablet 6-17 tablet by ity o f 00:00: mouth [place] 00 every 6 Medical (six) Branch hours as needed for Pain (scale 7-10). traMADOL 50 2018-0 Yes [id number] 50mg Take 1 Univers mg tablet 6-17 [...] a while due to financial issues amoxicillin 2019- Yes [id number] 1{tbl} Take 1 Univers -clavulanat 6-13 tablet by ity of e 00:00: mouth 2 [place] (AUGMENTIN) 00 (two) Medical 875-125 mg times Branch per tablet daily. amoxicillin 2019- Yes [id number] 1{tbl} Take 1 Univers -clavulanat 6-13 tablet by ity of e 00:00: mouth 2 [place] (AUGMENTIN) 00 (two) Medical 875-125 mg times Branch per tablet daily. amoxicillin 2018-2020- No [id number] 1{tbl} Take 1 Univers -clavulanat 6-13 09-05 [...] 00:00: mouth [place] 00 daily. Medical Branch Poly-Iron Poly-Iron No 1{capsu QD Poly-Iron 150 [...] MG ER 25 MG ER 25 MG - 81 - 81 No 1{table QD Aspir-81 [...] Tartrate 50 Tartrate MG MG 50 MG Vital Signs Vital Name Observation Time Observation Value Comments Source HEIGHT 2020-09-19 09:05:00 154.9 cm WEIGHT 2020-09-19 09:05:00 75.615 kg Systolic blood 2023-02-20 02:31:00 163 mm[Hg] [facility] Diastolic blood 2023-02-20 02:31:00 70 mm[Hg] [facility] Heart rate 2023-02-20 02:31:00 94 /min [facility] Respiratory rate 2023-02-20 02:31:00 22 /min [facility] Oxygen saturation in 2023-02-20 02:31:00 96 /min [facility] Arterial blood by [facility] Pulse oximetry Branch Body temperature 2023-02-19 20:52:00 37.11 [facility] Body height 2023-02-19 20:52:00 154.9 cm [facility] acute hospital Body weight 2023-02-19 20:52:00 76.658 kg General acute hospital BMI 2023-02-19 20:52:00 31.93 kg/m2 General acute hospital height 2022-11-15 15:20:00 61 [in_i] Common [facility] weight 2022-11-15 15:20:00 175.3 [lb_av] [facility] temperature 2022-11-15 15:20:00 96.8 [degF] Common [facility] bmi 2022-11-15 15:20:00 33.12 kg/m2 [facility] oximetry 2022-11-15 15:20:00 95 % [facility] respiratory rate 2022-11-15 15:20:00 17 /min Comm on [facility] blood pressure 2022-11-15 15:20:00 138 mm[Hg] [facility] blood pressure 2022-11-15 15:20:00 78 mm[Hg] [facility] diastolic [facility] height 2022-10-19 15:20:00 61 [in_i] [facility] weight 2022-10-19 15:20:00 174.0 [lb_av] [facility] temperature 2022-10-19 15:20:00 97.4 [degF] Common [facility] bmi 2022-10-19 15:20:00 32.87 kg/m2 [facility] oximetry 2022-10-19 15:20:00 97 % Common [facility] respiratory rate 2022-10-19 15:20:00 18 /min Comm on [facility] blood pressure 2022-10-19 15:20:00 138 mm[Hg] [facility] - systolic [facility] blood pressure 2022-10-19 15:20:00 70 mm[Hg] [facility] height 2022-08-06 16:40:00 61 [in_i] [facility] weight 2022-08-06 16:40:00 167 [lb_av] [facility] temperature 2022-08-06 16:40:00 97.1 [degF] [facility] bmi 2022-08-06 16:40:00 31.55 kg/m2 Common S pirit [facility] oximetry 2022-08-06 16:40:00 98 % [facility] - [facility] respiratory rate 2022-08-06 16:40:00 18 /min Comm on [facility] blood pressure 2022-08-06 16:40:00 148 mm[Hg] [facility] - systolic [facility] blood pressure 2022-08-06 16:40:00 78 mm[Hg] [facility] height 2022-07-05 16:40:00 61 [in_i] Common S pirit [facility] weight 2022-07-05 16:40:00 169.0 [lb_av] Common [facility] temperature 2022-07-05 16:40:00 98.0 [degF] Common S pirit [facility] bmi 2022-07-05 16:40:00 31.93 kg/m2 Common S pirit [facility] oximetry 2022-07-05 16:40:00 96 % Common S pirit [facility] respiratory rate 2022-07-05 16:40:00 17 /min Comm on [facility] blood pressure 2022-07-05 16:40:00 137 mm[Hg] [facility] blood pressure 2022-07-05 16:40:00 70 mm[Hg] [facility] height 2022-04-23 11:20:00 61 [in_i] [facility] - [facility] weight 2022-04-23 11:20:00 165.3 [lb_av] Common [facility] temperature 2022-04-23 11:20:00 97.3 [degF] [facility] 2022-04-23 11:20:00 31.23 kg/m2 Common [facility] oximetry 2022-04-23 11:20:00 96 % Common [facility] respiratory rate 2022-04-23 11:20:00 17 /min Comm on [facility] blood pressure 2022-04-23 11:20:00 138 mm[Hg] [facility] - systolic [facility] blood pressure 2022-04-23 11:20:00 77 mm[Hg] [facility] diastolic [facility] height 2022-01-04 13:50:00 61 [in_i] Common [facility] weight 2022-01-04 13:50:00 166.1 [lb_av] Common [facility] temperature 2022-01-04 13:50:00 97.5 [degF] [facility] 2022-01-04 13:50:00 31.38 kg/m2 [facility] oximetry 2022-01-04 13:50:00 97 % Common [facility] respiratory rate 2022-01-04 13:50:00 16 /min Comm on [facility] blood pressure 2022-01-04 13:50:00 142 mm[Hg] [facility] blood pressure 2022-01-04 13:50:00 75 mm[Hg] [facility] height 2022-01-04 14:00:00 61 [in_i] Common [facility] weight 2022-01-04 14:00:00 166.1 [lb_av] Common [facility] temperature 2022-01-04 14:00:00 97.5 [degF] Common S pirit - [facility] bmi 2022-01-04 14:00:00 31.38 kg/m2 [facility] oximetry 2022-01-04 14:00:00 97 % Common S [facility] respiratory rate 2022-01-04 14:00:00 16 /min Comm on [facility] blood pressure 2022-01-04 14:00:00 142 mm[Hg] [facility] systolic [facility] blood pressure 2022-01-04 14:00:00 75 mm[Hg] [facility] diastolic [facility] height 2021-09-28 09:30:00 61 [in_i] Common [facility] weight 2021-09-28 09:30:00 162.3 [lb_av] [facility] temperature 2021-09-28 09:30:00 97.5 [degF] [facility] bmi 2021-09-28 09:30:00 30.66 kg/m2 [facility] oximetry 2021-09-28 09:30:00 97 % Common [facility] respiratory rate 2021-09-28 09:30:00 16 /min Comm on [facility] blood pressure 2021-09-28 09:30:00 152 mm[Hg] [facility] - systolic [facility] blood pressure 2021-09-28 09:30:00 72 mm[Hg] [facility] diastolic [facility] height 2021-08-25 16:00:00 61 [in_i] Common S [facility] weight 2021-08-25 16:00:00 167 [lb_av] [facility] temperature 2021-08-25 16:00:00 97.7 [degF] [facility] bmi 2021-08-25 16:00:00 31.55 kg/m2 [facility] oximetry 2021-08-25 16:00:00 96 % Common S pirit [facility] blood pressure 2021-08-25 16:00:00 140 mm[Hg] [facility] blood pressure 2021-08-25 16:00:00 78 mm[Hg] [facility] diastolic [facility] height 2021-07-26 09:40:00 61 [in_i] Common S pirit [facility] weight 2021-07-26 09:40:00 164.4 [lb_av] Common [facility] temperature 2021-07-26 09:40:00 97.4 [degF] Common S pirit [facility] bmi 2021-07-26 09:40:00 31.06 kg/m2 [facility] oximetry 2021-07-26 09:40:00 97 % Common [facility] respiratory rate 2021-07-26 09:40:00 17 /min Comm on [facility] blood pressure 2021-07-26 09:40:00 139 mm[Hg] [facility] - systolic [facility] blood pressure 2021-07-26 09:40:00 72 mm[Hg] [facility] - diastolic [facility] height 2021-06-28 08:50:00 61 [in_i] Common [facility] weight 2021-06-28 08:50:00 159.1 [lb_av] [facility] temperature 2021-06-28 08:50:00 97.2 [degF] Common S pirit [facility] bmi 2021-06-28 08:50:00 30.06 kg/m2 Common S [facility] oximetry 2021-06-28 08:50:00 98 % Common S [facility] respiratory rate 2021-06-28 08:50:00 18 /min Comm on [facility] blood pressure 2021-06-28 08:50:00 158 mm[Hg] [facility] - systolic [facility] blood pressure 2021-06-28 08:50:00 75 mm[Hg] [facility] - diastolic [facility] Systolic blood 2021-06-20 20:23:00 148 mm[Hg] Univer sity of [facility] Diastolic blood 2021-06-20 20:23:00 66 mm[Hg] Unive rsity of pressure [facility] Heart rate 2021-06-20 20:23:00 76 /min [facility] Body height 2021-06-20 20:23:00 154.9 cm [facility] Body weight 2021-06-20 20:23:00 74.844 kg [facility] BMI 2021-06-20 20:23:00 31.18 kg/m2 [facility] Systolic blood 2021-06-18 16:05:00 184 mm[Hg] Univer sity of pressure [facility] Diastolic blood 2021-06-18 16:05:00 60 mm[Hg] Unive rsity of pressure [facility] Heart rate 2021-06-18 15:10:00 77 /min [facility] Body temperature 2021-06-18 15:10:00 37.44 [place] [facility] ersity of [facility] Respiratory rate 2021-06-18 15:10:00 20 /min [facility] ersity of [facility] Body height 2021-06-18 15:10:00 154.9 cm [facility] Body weight 2021-06-18 15:10:00 74.844 kg [facility] BMI 2021-06-18 15:10:00 31.18 kg/m2 [facility] Oxygen saturation in 2021-06-18 15:10:00 98 /min University Arterial blood by [facility] Pulse oximetry Branch Systolic blood 2021-06-18 16:05:00 184 mm[Hg] Univer sity of pressure [facility] Diastolic blood 2021-06-18 16:05:00 60 mm[Hg] Unive rsity of pressure [facility] Heart rate 2021-06-18 15:10:00 77 /min [facility] Body temperature 2021-06-18 15:10:00 37.44 [place] [facility] Respiratory rate 2021-06-18 15:10:00 20 /min [facility] Body height 2021-06-18 15:10:00 154.9 cm Universi ty [facility] Body weight 2021-06-18 15:10:00 74.844 kg Universi ty [facility] BMI 2021-06-18 15:10:00 31.18 kg/m2 [facility] Oxygen saturation in 2021-06-18 15:10:00 98 /min [facility] Arterial blood by [facility] Pulse oximetry Branch HEIGHT 2020-10-03 11:00:00 154.9 cm WEIGHT 2020-10-03 11:00:00 75.297 kg HEIGHT 2020-10-03 11:00:00 154.9 cm WEIGHT 2020-10-03 11:00:00 75.297 kg HEIGHT 2020-09-19 09:05:00 154.9 cm WEIGHT 2020-09-19 09:05:00 75.615 kg HEIGHT 2020-09-13 13:29:00 154.9 cm WEIGHT 2020-09-13 13:29:00 75.297 kg HEIGHT 2020-09-13 13:29:00 154.9 cm WEIGHT 2020-09-13 13:29:00 75.297 kg Systolic blood 2020-10-03 11:00:00 171 mm[Hg] [facility] Diastolic blood 2020-10-03 11:00:00 71 mm[Hg] [facility] Heart rate 2020-10-03 11:00:00 78 /min [facility] Body temperature 2020-10-03 11:00:00 37 [place] [facility] Respiratory rate 2020-10-03 11:00:00 18 /min [facility] Body height 2020-10-03 11:00:00 154.9 cm [facility] Body weight 2020-10-03 11:00:00 75.297 kg [facility] BMI 2020-10-03 11:00:00 31.37 kg/m2 [facility] Oxygen saturation in 2020-10-03 11:00:00 98 /min room air [facility] Arterial blood by Medical nter Pulse oximetry Procedures Procedure Date / Time Performing Clinician Source Performed EKG-12 LEAD 2023-02-20 01:48:08 Alden Isaacs [facility] URINALYSIS 2023-02-20 00:24:00 Alden Isaacs [facility] LIPASE 2023-02-19 22:43:00 Alden Isaacs [facility] TROPONIN I 2023-02-19 22:43:00 Adlen Isaacs [facility] COMP. METABOLIC PANEL 2023-02-19 22:43:00 Alden Isaacs [facility] ([id number]) [facility] CBC WITH DIFF 2023-02-19 22:43:00 Alden Isaacs [facility] N-TERMINAL PRO-BNP 2023-02-19 22:43:00 Alden Isaacs [facility] NOTICE OF PRIVACY 2023-02-19 22:08:23 Doctor Unassigned, No [facility] PRACTICES Name [facility] ASSIGNMENT OF BENEFITS 2023-02-19 22:07:28 Doctor Unassigned, No [facility] Branch CONSENT/REFUSAL FOR 2023-02-19 20:48:43 Doctor Unassigned, No [facility] DIAGNOSIS AND TREATMENT Name Medical Branch REFERRAL- 2021-04-06 05:01:00 Doctor Unassigned, No [facility] REQUEST/RESPONSE Name [facility] POCT-GLUCOSE METER 2020-09-20 11:36:[address] [facility] POCT-GLUCOSE METER 2020-09-20 07:33:[address] [facility] CBC W/PLT COUNT & AUTO 2020-09-20 00:18:[address] Vanessa J[address] [facility] DIFFERENTIAL Center BASIC METABOLIC PANEL 2020-09-20 00:18:00 Vanessa Jasmine [facility] Medical (7) Center MAGNESIUM 2020-09-20 00:18:00 [facility] 2020-09-20 00:18:00 Uk, [facility] CALCIUM, IONIZED 2020-09-20 00:18:00 Darline [facility] TISSUE EXAM 2020-09-19 14:54:00 Juan Gallardo [facility] POCT-ACT 2020-09-19 14:15:00 Juan Gallardo [facility] POCT-ACT 2020-09-19 14:03:00 Juan Gallardo [facility] ENDARTERECTOMY,CAROTID 2020-09-19 12:52:00 Juan Gallardo [facility] PROTHROMBIN TIME/INR 2020-09-19 10:22:00 [facility]19 10:22[facility] PO[facility]-GLUCOSE METER 2020-09-19 09:06:[address] [facility] CBC W/PLT COUNT & AUTO 2020-09-13 14:52:00 Monique [facility] DIFFERENTIAL [facility] BASIC METABOLIC PANEL 2020-09-13 14:52:00 Juan Gallardo [facility] (7) [facility] PROTHROMBIN TIME/INR 2020-09-13 14:52:00 Juan Gallardo [facility] ABORH, MANUAL 2020-09-13 14:52:00 Juan Gallardo [facility] ECG 12-LEAD 2020-09-13 14:37:40 Unknown, [id number] Doctor [facility] Plan of Care Planned Activity Planned [...] - Tdap)] Future Scheduled 1970 DTAP/TDAP/TD VACCINES [facility] 00:00:00 (1 - [...] breast Medical C enter (procedure) [code = 288551688] Future Scheduled 1951 Screening for malignant [facility] Test 00:00:00 neoplasm of colon Medical Ce nter (procedure) [code = 744877157] Future Scheduled 1951 Screening for malignant [facility] Test 00:00:00 neoplasm of breast Medical C enter (procedure) [code = 014394377] Future Scheduled 1951 CT Colonography (combo) [facility] Test 00:00:00 [code = CT Colonography [facility] (combo)] Future Scheduled 1951 Screening for malignant [facility] Test 00:00:00 neoplasm of colon Medical Ce nter (procedure) [code = 824225763] Future Scheduled 1951 Screening for malignant [facility] Test 00:00:00 neoplasm of colon Medical Ce nter (procedure) [code = 585343729] Future Scheduled 1951 DXA SCAN [code = DXA [facility] Test 00:00:00 SCAN] [facility] Future Scheduled 1951 Screening for malignant [facility] Test 00:00:00 neoplasm of colon Medical Ce nter (procedure) [code = 454925878] Future Scheduled 1951 Screening for malignant [facility] Test 00:00:00 neoplasm of colon Medical Ce nter (procedure) [code = 511044665] Future Scheduled 1951 Sigmoidoscopy [code = [facility]:00 Sigmoidoscopy] [facility] Future Scheduled 1951 Screening for malignant [facility] Test 00:00:00 neoplasm of breast Medical C enter (procedure) [code = 742785422] Future Scheduled 1951 CT Colonography (combo) [facility] Test 00:00:00 [code = CT Colonography [facility] (combo)] Future Scheduled 1951 Screening for malignant [facility] Test 00:00:00 neoplasm of colon Medical Ce nter (procedure) [code = 803871615] Future Scheduled 1951 Screening for malignant [facility] Test 00:00:00 neoplasm of colon Medical Ce nter (procedure) [code = 304483016] Future Scheduled 1951 DXA SCAN [code = DXA [facility] Test 00:00:00 SCAN] [facility] Future Scheduled 1951 Screening for malignant [facility] Test 00:00:00 neoplasm of colon Medical Ce nter (procedure) [code = 816346420] Future Scheduled 1951 Screening for malignant [facility] Test 00:00:00 neoplasm of colon Medical Ce nter (procedure) [code = 625414913] Future Scheduled 1951 Sigmoidoscopy [facility]code = [facility] Scre[facility] for malignant [facility] 00:00:00 neoplasm of breast Medical C enter (procedure) [code = 516077629] Future Scheduled 1951 CT Colonography (combo) [facility] Test 00:00:00 [code = CT Colonography [facility] (combo)] Future Scheduled 1951 Screening for malignant [facility] Test 00:00:00 neoplasm of colon Medical Ce nter (procedure) [code = 925179855] Future Scheduled 1951 Screening for malignant [facility] Test 00:00:00 neoplasm of colon Medical Ce nter (procedure) [code = 352267933] Future Scheduled 1951 DXA SCAN [code = DXA [facility] 00:00:00 SCAN] [facility] Future Scheduled 1951 Screening for malignant [facility] Test 00:00:00 neoplasm of colon Medical Ce nter (procedure) [code = 844964927] Future Scheduled 1951 Screening for malignant [facility] 00:00:00 neoplasm of colon Medical Ce nter (procedure) [code = 777077145] Future Scheduled 1951 Sigmoidoscopy [code = [facility] 1951 Screening for malignant [facility] 00:00:00 neoplasm of breast Medical C enter (procedure) [code = 570967243] Future Scheduled 1951 CT Colonography (combo) [facility] 00:00:00 [code = CT Colonography [facility] (combo)] Future Scheduled 1951 Screening for malignant [facility] 00:00:00 neoplasm of colon Medical Ce nter (procedure) [code = 457567109] Future Scheduled 1951 Screening for malignant [facility] 00:00:00 neoplasm of colon Medical Ce nter (procedure) [code = 246849756] Future Scheduled 1951 DXA SCAN [code = DXA [facility] 00:00:00 SCAN] [facility] Future Scheduled 1951 Screening for malignant [facility] 00:00:00 neoplasm of colon Medical Ce nter (procedure) [code = 401610355] Future Scheduled 1951 Screening for malignant [facility] 00:00:00 neoplasm of colon Medical Ce nter (procedure) [code = 702131391] Future Scheduled 1951 Sigmoidoscopy [code = [facility] 00:[facility] Sigmoidoscopy] [facility] Future Scheduled 1951 Screening for malignant [facility] Test 00:00:00 neoplasm of breast Medical C enter (procedure) [code = 775898590] Future Scheduled 1951 CT Colonography (combo) [facility] 00:00:00 [code = CT Colonography [facility] (combo)] Future Scheduled 1951 Screening for malignant [facility] 00:00:00 neoplasm of colon Medical Ce nter (procedure) [code = 183804425] Future Scheduled 1951 Screening for malignant [facility] 00:00:00 neoplasm of colon Medical Ce nter (procedure) [code = 425788509] Future Scheduled 1951 DXA SCAN [code = DXA [facility] 00:00:00 SCAN] [facility] Future Scheduled 1951 Screening for malignant [facility] 00:00:00 neoplasm of colon Medical Ce nter (procedure) [code = 130392350] Future Scheduled 1951 Screening for malignant [facility] 00:00:00 neoplasm of colon Medical Ce nter (procedure) [code = 528818076] Future Scheduled 1951 Sigmoidoscopy [code = [facility] 1951 Screening for malignant [facility] 00:00:00 neoplasm of breast Medical C enter (procedure) [code = 782006247] Future Scheduled 1951 CT Colonography (combo) [facility] 00:00:00 [code = CT Colonography [facility] (combo)] Future Scheduled 1951 Screening for malignant [facility] 00:00:00 neoplasm of colon Medical Ce nter (procedure) [code = 278765031] Future Scheduled 1951 Screening for malignant [facility] Test 00:00:00 neoplasm of colon Medical Ce nter (procedure) [code = 915317351] Future Scheduled 1951 DXA SCAN [code = DXA [facility] 00:00:00 SCAN] [facility] Future Scheduled 1951 Screening for malignant [facility] 00:00:00 neoplasm of colon Medical Ce nter (procedure) [code = 041781831] Future Scheduled 1951 Screening for malignant [facility] 00:00:00 neoplasm of colon Medical Ce nter (procedure) [code = 594848735] Future Scheduled 1951 Sigmoidoscopy [code = [facility] 00:[facility] Sigmoidoscopy] [facility] Future Scheduled 1951 Screening for malignant [facility] Test 00:00:00 neoplasm of breast Medical C enter (procedure) [code = 576280408] Future Scheduled 1951 CT Colonography (combo) [facility] 00:00:00 [code = CT Colonography [facility] (combo)] Future Scheduled 1951 Screening for malignant [facility] 00:00:00 neoplasm of colon Medical Ce nter (procedure) [code = 918984495] Future Scheduled 1951 Screening for malignant [facility] 00:00:00 neoplasm of colon Medical Ce nter (procedure) [code = 919798759] Future Scheduled 1951 DXA SCAN [code = DXA [facility] 00:00:00 SCAN] [facility] Future Scheduled 1951 Screening for malignant [facility] 00:00:00 neoplasm of colon Medical Ce nter (procedure) [code = 081454356] Future Scheduled 1951 Screening for malignant [facility] 00:00:00 neoplasm of colon Medical Ce nter (procedure) [code = 382055369] Future Scheduled 1951 Sigmoidoscopy [code = [facility] 00:[facility] Sigmoidoscopy] [facility] Future Scheduled 1951 Screening for malignant [facility] Test 00:00:00 neoplasm of breast Medical C enter (procedure) [code = 512399061] Future Scheduled 1951 CT Colonography (combo) [facility] 00:00:00 [code = CT Colonography [facility] (combo)] Future Scheduled 1951 Screening for malignant [facility] 00:00:00 neoplasm of colon Medical Ce nter (procedure) [code = 297988923] Future Scheduled 1951 Screening for malignant [facility] 00:00:00 neoplasm of colon Medical Ce nter (procedure) [code = 584263441] Future Scheduled 1951 DXA SCAN [code = DXA [facility] 00:00:00 SCAN] [facility] Future Scheduled 1951 Screening for malignant [facility] 00:00:00 neoplasm of colon Medical Ce nter (procedure) [code = 400506795] Future Scheduled 1951 Screening for malignant [facility] 00:00:00 neoplasm of colon Medical Ce nter (procedure) [code = 519942019] Future Scheduled 1951 Sigmoidoscopy [code = [facility] 1951 Screening for malignant [facility] 00:00:00 neoplasm of breast Medical C enter (procedure) [code = 320699986] Future Scheduled 1951 Screening for malignant [facility] 00:00:00 neoplasm of colon Medical Ce nter (procedure) [code = 905059042] Future Scheduled 1951 Screening for malignant [facility] Test 00:00:00 neoplasm of breast Medical C enter (procedure) [code = 308949085] Future Scheduled 1950 CT Colonography (combo) [facility] 00:00:00 [code = CT Colonography [facility] (combo)] Future Scheduled 1951 Screening for malignant [facility] 00:00:00 neoplasm of colon Medical Ce nter (procedure) [code = 883869065] Future Scheduled 1951 Screening for malignant [facility] Test 00:00:00 neoplasm of colon Medical Ce nter (procedure) [code = 794778844] Future Scheduled 1951 DXA SCAN [code = DXA [facility] 00:00:00 SCAN] [facility] Future Scheduled 1951 Screening for malignant [facility] Test 00:00:00 neoplasm of colon Medical Ce nter (procedure) [code = 990244889] Future Scheduled 1951 Screening for malignant [facility] Test 00:00:00 neoplasm of colon Medical Ce nter (procedure) [code = 647217185] Future Scheduled 1951 Sigmoidoscopy [code = [facility]oscopy] Medical [facility] Encounters Start End Encounter Admission Attending Care Care Encounter Source Date/Time Date/Time Type Type Clinicians Facility Department ID 2023-06-28 Outpatient Lao, STLMLC STLMLC [id number] Common 15:39:00 Shant [id number] [facility] 2023-06-25 Outpatient Lao, STLMLC STLMLC [id number] Common 07:53:00 Shant 89485 [facility] 2023-06-24 Outpatient Lao, STLMLC STLMLC [id number] Common 13:48:00 Shant 05346 [facility] 2023-06-20 Outpatient Lao, STLMLC STLMLC [id number] Common 16:30:00 Shant 44317 [facility] 2023-05-22 Outpatient Lao, STLMLC STLMLC [id number] Common 13:41:00 Shant 51281 [facility] 2023-05-16 Outpatient Lao, STLMLC STLMLC [id number] Common 07:59:01 Shant 89392 [facility] 2022-11-14 Outpatient Lao, STLMLC STLMLC [id number] Common 13:33:00 Shant 12772 [facility] 2022-08-02 Outpatient Lao, STLMLC STLMLC [id number] Common 11:32:02 Shant 85307 [facility] 2022-04-23 Outpatient Lao, STLMLC STLMLC [id number] Common 11:04:01 Shant 55917 [facility] 2022-01-03 Outpatient Lao, STLMLC STLMLC [id number] Common 10:05:03 Shant [facility] 2022-01-01 Outpatient Lao, STLMLC STLMLC [id number] Common 13:11:04 Shant [facility] 2021-11-08 Outpatient Lao, STLMLC STLMLC [id number] Common 14:15:27 Shant 51173 [facility] 2021-11-08 Outpatient Lao, STLMLC STLMLC [id number] Common 14:10:48 Shant 70792 [facility] 2021-11-08 Outpatient Lao, STLMLC STLMLC [id number] Common 14:04:07 Shant 07886 [facility] 2021-11-08 Outpatient STLMLC STLMLC [id number] Common 13:49:07 [id number] [facility] 2021-08-14 Emergency [facility] [id number] Univers 20:32:56 ity of [facility] 2021 Inpatient MONIQUE, [facility] Surgery [id number] [facility] 18:22:15 JUAN 2023-09-18 2023-09-18 Outpatient [facility] [id number] [place] 13:00:00 13:00:00 [facility] 2023-07-17 2023-07-17 Outpatient [facility] [id number] [place] 13:00:00 17:14:12 [facility] 2023-07-16 2023-07-16 Outpatient BERTA, [facility] [id number] [place] 11:00:00 11:00:00 [facility] 2023-06-262023-06-26 Telemedici Amalia, UTP 6410 [id number] [place] 14:00:00 15:00:[address] [id number] [facility] [phone] 8 2023-06-25 2023-06-25 Outpatient [facility] [id number] [place] 14:00:00 14:00:00 Health 2023-02-19 2023-02-19 Emergency [facility] E[facility] [id number] Univers 15:55:00 21:46:00 ALDEN schulz [facility] 2023-02-19 2023-02-19 [facility] [id number] [facility] 15:55:00 21:46:00 Alden BOWERS 350.1.13.10 i [facility] 4.2.7.2.686 [facility] [phone] [place] [address] [place] 2022-11-16 2022-11-16 (TEL) STLMLC STLMLC [id number] Co mmon 00:00:00 00:00:00 [facility] 2022-11-15 2022-11-15 OFFICE STLMLC STLMLC [id number] Co mmon 00:00:00 00:00:00 VISIT Spirit ESTAB PT - CHI LEVEL 4 [facility] 2022-11-15 2022-11-15 (TEL) STLMLC STLMLC [id number] Co mmon 00:00:00 00:00:00 [facility] 2022-10-19 2022-10-19 OFFICE STLMLC STLMLC [id number] Co mmon 00:00:00 00:00:00 VISIT EST Spir it PT LEVEL 3 - [facility] 2022-10-17 2022-10-17 (TEL) STLMLC STLMLC [id number] Co mmon 00:00:00 00:00:00 Spirit [facility] 2022-09-04 2022-09-04 (TEL) STLMLC STLMLC [id number] Co mmon 00:00:00 00:00:00 [facility] 2022-09-04 2022-09-04 (TEL) STLMLC STLMLC [id number] Co mmon 00:00:00 00:00:00 [facility] 2022-08-20 2022-08-20 (TEL) STLMLC STLMLC [id number] Co mmon 00:00:00 00:00:00 [facility] 2022-08-15 2022-08-15 (TEL) STLMLC STLMLC [id number] Co mmon 00:00:00 00:00:00 [facility] 2022-08-06 2022-08-06 OFFICE STLMLC STLMLC [id number] Co mmon 00:00:00 00:00:00 VISIT [facility] 4 [facility] 2022-08-06 2022-08-06 (TEL) STLMLC STLMLC [id number] Co mmon 00:00:00 00:00:00 [facility] 2022-07-17 2022-07-17 (TEL) STLMLC STLMLC [id number] Co mmon 00:00:00 00:00:00 [facility] 2022-07-10 2022-07-10 (TEL) STLMLC STLMLC [id number] Co mmon 00:00:00 00:00:00 [facility] 2022-07-05 2022-07-05 (TEL) STLMLC STLMLC [id number] Co mmon 00:00:00 00:00:00 [facility] 2022-07-05 2022-07-05 (HOSP F/U) STLMLC STLMLC [id number] Common 00:00:00 00:00:00 [facility] 2022-07-02 2022-07-02 (TEL) STLMLC STLMLC [id number] Co mmon 00:00:00 00:00:00 [facility] 2022-04-23 2022-04-23 OFFICE STLMLC STLMLC [id number] Co mmon 00:00:00 00:00:00 VISIT Spirit ESTAB PT - CHI LEVEL 4 [facility] 2022-04-20 2022-04-20 (TEL) STLMLC STLMLC [id number] Co mmon 00:00:00 00:00:00 [facility] 2022-01-04 2022-01-04 OFFICE STLMLC STLMLC [id number] Co mmon 00:00:00 00:00:00 VISIT Spirit ESTAB PT - CHI LEVEL 4 [facility] 2022-01-04 2022-01-04 SUB ANNUAL STLMLC STLMLC [id number] Common 00:00:00 00:00:00 MCR [facility] WELLNESS - CHI VISIT [facility] 2021-12-21 2021-12-21 (TEL) STLMLC STLMLC [id number] Co mmon 00:00:00 00:00:00 [facility] 2021-11-20 2021-11-20 (TEL) STLMLC STLMLC [id number] Co mmon 00:00:00 00:00:00 [facility] 2021-10-30 2021-10-30 (TEL) STLMLC STLMLC [id number] Co mmon 00:00:00 00:00:00 [facility] 2021-09-28 2021-09-28 OFFICE STLMLC STLMLC [id number] Co mmon 00:00:00 00:00:00 VISIT [facility] ESTAB PT - CHI LEVEL 4 [facility] 2021-08-31 2021-08-31 (TEL) STLMLC STLMLC [id number] Co mmon 00:00:00 00:00:00 [facility] 2021-08-25 2021-08-25 OFFICE STLMLC STLMLC [id number] Co mmon 00:00:00 00:00:00 VISIT EST Spir it PT LEVEL 3 - [facility] 2021-08-22 2021-08-22 (TEL) STLMLC STLMLC [id number] Co mmon 00:00:00 00:00:00 [facility] 2021-08-07 2021-08-07 (TEL) STLMLC STLMLC [id number] Co mmon 00:00:00 00:00:00 [facility] 2021-07-26 2021-07-26 OFFICE STLMLC STLMLC [id number] Co mmon 00:00:00 00:00:00 VISIT Spirit ESTAB PT - CHI LEVEL 4 [facility] 2021-07-23 2021-07-23 (TEL) STLMLC STLMLC [id number] Co mmon 00:00:00 00:00:00 [facility] 2021 2021 (TEL) STLMLC STLMLC [id number] Co mmon 00:00:00 00:00:00 [facility] 2021-06-28 2021-06-28 (TEL) STLMLC STLMLC [id number] Co mmon 00:00:00 00:00:00 [facility] 2021-06-28 2021-06-28 OFFICE STLMLC STLMLC [id number] Co mmon 00:00:00 00:00:00 VISIT [facility] PT LEVEL 4 [facility] 2021-06-26 2021-06-26 Outpatient R PRIYANK [facility] [id number] Univers 13:45:00 13:45:00 UTE [facility] 2021-06-20 2021-06-20 Office [facility] [id number] Univers 15:14:01 15:29:01 Visit [facility] [id number] it y of [place] 4.2.7.2.686 Lorenzo as Yuri?Blea [phone] [address] Medical Office Building 2021-06-20 2021-06-20 [facility] [id number] Univers 15:00:00 15:00:00 [facility] 2021-06-20 2021-06-20 Telephone [facility] [id number] Univers 00:00:00 00:00:00 [facility] [id number] it y of [place] 4.2.7.2.686 Lorenzo as Yuri?Blea [phone] Mn jose felix [address] [facility] 2021-06-19 2021-06-19 Telephone [facility] [id number] Univers 00:00:00 00:00:00 Ute Mix [facility] 350.1.13.10 it y of [place] 4.2.7.2.686 Lorenzo as Yuri?Blea [phone] Mn jose felix 198 [facility] Office [facility] 2021-06-18 2021-06-18 Emergency [facility] [id number] Univers 10:12:00 11:17:00 Carol Ann Bowers 350.1.13.10 ity of [place] [phone] [facility] [address] 2021-06-18 2021-06-18 Emergency [facility] [id number] Univers 10:12:00 11:17:00 Carol Ann Bowers [id number] ity of [place] [phone] [facility] [address] 2021-04-26 2021-04-26 Letter ONEAL Barber [id number] Univers 00:00:00 00:00:00 (Out) Charlette GABRIEL 350.1.13.10 i ty of HOSPITAL 4.2.7.2.686 Lorenzo as [phone] [facility] [address] 2021-04-06 2021-04-06 Orders Doctor NO [id number] [id number] Univers 00:00:00 00:00:00 Only Unassigned, HARVEY 350.1.13.10 ity of [place] [facility] 4.2.7.2.686 Lorenzo as [phone] [facility] [address] 2020-10-03 2020-10-[address] [facility] [id number] [facility] 10:58:57 06:55:34 Visit [facility] 2020-10-03 2020-10-03 Outpatient MONIQUE [facility] [id number] [facility] 00:00:00 00:00:00 JUAN 2020-09-19 2020-09-20 Hospital CHIRAG Gallardo [facility] [id number] 08:52:00 16:45:00 [facility] 2020-09-19 2020-09-19 Anesthesia Abhi, [facility] [id number] 13:06:00 15:11:00 Event Maribell Marleni [facility] 2020-09-19 2020-09-19 [facility] [id number] 11:00:00 14:00:00 [facility] 2020-09-16 2020-09-16 [facility] [id number] 00:00:00 00:00:00 [facility] 2020-09-13 2020-09-13 Office CHIRAG Gallardo [facility] [id number] 14:23:27 14:53:27 Visit [facility] 2020-09-13 2020-09-13 Outpatient CHIRAG [facility] [id number] SLE 14:23:27 14:23:27 [facility] 2020-09-13 2020-09-13 [facility] [id number] 00:00:00 00:00:00 Only [facility] 2019-12-02 2019-12-02 Outpatient [employer] [id number] [facility] 07:29:00 07:29:00 _J_ 04073 Family Practic e Results Test Description Test Time Test Comments Results Result Comments Source TROPONIN I 2023-02-19 23:50:59 Test Item Value Reference Range Interpretation Comme nts TROPONIN I (test code = 2689792067) 0.002 ng/mL <=0.034 GABRIELA (test code = [...] biotin. Lab Interpretation (test code = Normal 14625-4) [id number] 23:47:38 Test Item Value Reference Range Interpretation Comments NT-proBNP (test code = 81 pg/mL <=125 1642412967) GABRIELA (test code = GABRIELA) Biotin has been reported to cause a negative bias, interpret results relative to patient's use of biotin. Lab Interpretation (test Normal code = 71836-0) [facility]. METABOLIC PANEL (71235)2023-02-19 23:41:37 Test Item Value Reference Range Interpretation Comments NA (test code = 137 mmol/L 135-145 2539669939) K (test code = 4.3 mmol/L 3.5-5.0 1742822634) CL (test code = 100 mmol/L 98-108 7369288976) CO2 TOTAL (test code = 27 mmol/L 23-31 5788008639) AGAP (test code = 10 2-16 5495518664) BUN (test code = 14 mg/dL 7-23 8826151551) GLUCOSE (test code = 196 mg/dL 70-110 H 8697487773) CREATININE (test code = 0.65 mg/dL 0.50-1.04 0225147831) TOTAL BILI (test code = 1.0 mg/dL 0.1-1.9 3965862229) CALCIUM (test code = 8.9 mg/dL 8.6-10.6 0114018071) T PROTEIN (test code = 7.9 g/dL 6.3-8.2 9411200404) ALBUMIN (test code = 3.8 g/dL 3.5-5.0 4596871468) ALK PHOS (test code = 89 U/L 34-122 5667674824) ALTv (test code = 33 U/L 5-35 1742-6) AST(SGOT) (test code = 39 U/L 13-40 1039615595) eGFR (test code = 89.9 mL/min/1.73m2 9035404988) GABRIELA (test code = GABRIELA) Association of [...] tests). Lab Interpretation Abnormal (test code = 08793-2) [facility]23-[facility]-09 23:41:37 Test Item Value Reference Range Interpretation Comments LIPASE (test code = 1092652114) 111 U/L 0-220 Lab Interpretation (test code = Normal 81179-0) [facility] WITH [id number] 23:32:16 Test Item Value Reference Range Interpretation Comments WBC (test code = 12.07 See_Comment H [Automated 2469-2) message] The sy stem which generated this result transmitted reference range : 4.30 - 11.10 10*3/?L. The reference range was not used to interpret this result as normal/abnormal . RBC (test code = 4.49 See_Comment [Automated 627-2) message] The sy stem which generated this [...] RDW-SD (test code = 48.6 fL 39.0-49.9 06216-0) RDW-CV (test code = 12.9 % 12.0-15.5 788-0) PLT (test code = 236 See_Comment [Automated 777-3) message] The sy stem which generated this result transmitted reference range : 166 - 358 10*3/ ?L. The reference r rita was not used to interpret this result as normal/abnormal . MPV (test code = 10.9 fL 9.5-12.9 83672-7) NRBC/100 WBC (test 0.0 See_Comment [Automat ed code = 1731624720) message] The system which generated this result transmitted reference range : 0.0 - 10.0 /100 WBCs. The refer ence range was not u sed to interpret th is result as normal/abnormal . NRBC x10^3 (test code See_Comment [Auto mated = 5181424496) message] The s ystem which generated this result transmitted reference range : 10*3/?L. The reference range was not used to interpret this result as normal/abnormal . GRAN MAT (NEUT) % 66.4 % (test code = 770-8) IMM GRAN % (test code 0.50 % = 9920158998) LYMPH % (test code = 22.9 % 736-9) MONO % (test code = 7.9 % 5905-5) EOS % (test code = 1.6 % 713-8) BASO % (test code = 0.7 % 706-2) GRAN MAT x10^3(ANC) 8.03 10*3/uL 1.88-7.09 H (test code = 9294378988) IMM GRAN x10^3 (test 0.06 10*3/uL 0.00-0.06 code = 3846345940) LYMPH x10^3 (test code 2.76 10*3/uL 1.32-3.29 = 731-0) MONO x10^3 (test code 0.95 10*3/uL 0.33-0.92 H = 742-7) EOS x10^3 (test code = 0.19 10*3/uL 0.03-0.39 711-2) BASO x10^3 (test code 0.08 10*3/uL 0.01-0.07 H = 704-7) Lab Interpretation Abnormal (test code = 63389-2) [facility], TIBC AND FERRITIN [id number] 00:00:00 Test Item Value Reference Range Interpretation Comments % SATURATION (test 5 % (calc) See_Comment L [Automat ed message] code = 2502-3) The system [facility] generated this result transmit zoë reference range : 16-45 % (calc). The reference range was not used to interpret this result as normal/abnormal . FERRITIN (test code 4 ng/mL See_Comment L [Automa zoë message] = 6396-4) The system [facility] generated this [...] d message] code = 2498-4) The system [facility] generated this result transmit zoë [...] this result transmit zoë reference range : 5680-4941 cells /uL. The reference r rita was not used to interpret this result as normal/abnormal . BASOPHILS (test code 0.9 % N = 706-2) EOSINOPHILS (test 6.0 % N code = 713-8) HEMATOCRIT (test 26.5 % See_Comment L [Automated message] code = 4544-3) The system ich generated this result transmit zoë reference range : 35.0-45.0 %. Th e reference range was not used to interpret this result as normal/abnormal . HEMOGLOBIN (test 7.6 g/dL See_Comment L [Automated message] code = 718-7) The system i ch generated this result transmit zoë reference range : 11.7-15.5 g/dL. The reference range was not used to interpret this result as normal/abnormal . LYMPHOCYTES (test 25.4 % N code = 736-9) MCH (test code = 23.2 pg See_Comment L [Automated message] 785-6) The system ic h generated this result transmit zoë reference range : 27.0-33.0 pg. T he reference range was not used to interpret this result as normal/abnormal . MCHC (test code = 28.7 g/dL See_Comment L [Automate d message] 786-4) The system [employer] generated this result transmit zoë reference range : 32.0-36.0 g/dL. The reference range was not used to interpret this result as normal/abnormal . MCV (test code = 81.0 fL See_Comment N [Automated message] 787-2) The system [employer] generated this result transmit zoë reference range : 80.0-100.0 fL. The reference range was not used to interpret this result as normal/abnormal . MONOCYTES (test code 8.6 % N = 5905-5) MPV (test code = 9.6 fL See_Comment N [Automated message] 776-5) The system [employer] generated this result transmit zoë reference range : 7.5-12.5 fL. Th e reference range was not used to interpret this result as normal/abnormal . NEUTROPHILS (test 59.1 % N code = 770-8) PLATELET COUNT (test 321 See_Comment N [Autom ated message] code = 777-3) Thousand/uL The system [employer] generated this result transmit zoë reference range : 140-400 Thousan d/uL. The reference r rita was not used to interpret this result as normal/abnormal . RDW (test code = 14.7 % See_Comment N [Automated message] 788-0) The system [employer] generated this result transmit zoë reference range [...] interpret this result as normal/abnormal . PATHOLOGY [id number] 00:00:00PATHOLOGISTCONSULT, SPECIMEN A 2021-07-22 00:00:00A COMMENTA DIAGNOSISA MICRO DESCRIPTIONA SOURCELipid Panel With LDL/HDL [id number] 00:00:00 Test Item Value Reference Range Interpretation Comments Cholesterol, Total 188 mg/dL See_Comment [Automat ed message] (test code = 2093-3) The s tem which generated this result transmitted ref erence range: 100-199 mg/dL. The reference r rita was not used to interpret this result as normal/abnor mal. HDL Cholesterol (test 52 mg/dL See_Comment [Auto mated message] code = 2085-9) The system [facility] generated this result transmitted ref erence range: >39 mg/d L. The reference range was not used to int erpret this result as normal/abnormal . Triglycerides (test 85 mg/dL See_Comment [Automa zoë message] code = 2571-8) The system [facility] generated this result transmitted ref erence range: 0-149 mg /dL. The reference r rita was not used to interpret this result as normal/abnor mal. Microalbumin/Creat Ratio, Random [id number] 00:00:00 Test Item Value Reference Range Interpretation Comments Creatinine, Urine 103.2 mg/dL Not Estab. mg/dL (test code = 2161-8) Alb/Creat Ratio 28 mg/g creat See_Comment [Automated message] (test code = The system [facility] h 98232-5) generated this result transmitted ref erence range: 0-29 mg/ g creat. The refe rence range was not u sed to interpret this result as normal/abnor mal. Albumin, Urine 29.2 ug/mL Not Estab. ug/mL (test code = 69195-5) Hemoglobin [id number] 00:00:00 Test Item Value Reference Range Interpretation [...] L [Autom ated message] 1751-7) The system [employer] generated this result transmit zoë reference range : 3.8-4.8 g/dL. T he reference range was not used to interpret this result as normal/abnormal . Alkaline Phosphatase 106 IU/L See_Comment [Autom ated message] (test code = 6768-6) The [employer] which generated this result transmit zoë reference range : 44-121 IU/L. Th e reference range was not used to interpret this result as normal/abnormal . ALT (SGPT) (test 12 IU/L See_Comment [Automated message] code = 1742-6) The system [employer] generated this result transmit zoë reference range : 0-32 IU/L. The reference range was not used to interpret this result as normal/abnormal . AST (SGOT) (test 12 IU/L See_Comment [Automated message] code = 1920-8) The system [employer] generated this result transmit zoë reference range : 0-40 IU/L. The reference range was not used to interpret this result as normal/abnormal . Bilirubin, Total 0.3 mg/dL See_Comment [Automated message] (test code = 1974-2) The [employer] which generated this result transmit zoë reference range : 0.0-1.2 mg/dL. The reference range was not used to interpret this result as normal/abnormal . BUN (test code = 12 mg/dL See_Comment [Automated message] 3094-0) The system [employer] generated this result transmit zoë reference range : 8-27 mg/dL. The reference range was not used to interpret this result as normal/abnormal . BUN/Creatinine Ratio 03 10-28 (test code = 3097-3) Calcium (test code = 8.6 mg/dL See_Comment L [Autom ated message] 60267-3) The system [employer] generated this result transmit zoë reference range [...] [Automa zoë message] = 5-0) The system [facility] [employer] generated this result transmit zoë reference range : 96-106 mmol/L. The reference range was not used to interpret this result as normal/abnormal . Creatinine (test 0.57 mg/dL See_Comment [Automated message] code = 2160-0) The system [facility] generated this result transmit zoë reference range : 0.57-1.00 mg/dL . The reference range was not used to interpret this result as normal/abnormal . eGFR If Africn Am 109 See_Comment [Automate d message] (test code = mL/min/1.73 The system [facility] [employer] 73053-5) generated this result transmit zoë reference range : >59 mL/min/1.73. Th e reference range was not used to interpret this result as normal/abnormal . eGFR If NonAfricn Am 95 mL/min/1.73 See_Comment [Aut omated message] (test code = The system [facility] [employer] 57883-0) generated this result transmit zoë reference range : >59 mL/min/1.73. Th e reference range was not used to interpret this result as normal/abnormal . Globulin, Total 3.9 g/dL See_Comment [Automated message] (test code = The system [facility] [employer] 77589-5) generated this result transmit zoë reference range : 1.5-4.5 g/dL. T he reference range was not used to interpret this result as normal/abnormal . Glucose (test code = 162 mg/dL See_Comment H [Autom ated message] 2345-7) The system [facility] [employer] generated this result transmit zoë reference range : 65-99 mg/dL. Th e reference range was not used to interpret this result as normal/abnormal . Potassium (test code 4.2 mmol/L See_Comment [Autom ated message] = 2823-3) The system [facility] [employer] generated this result transmit zoë reference range : 3.5-5.2 mmol/L. The reference range was not used to interpret this result as normal/abnormal . Protein, Total (test 7.5 g/dL See_Comment [Autom ated message] code = 2885-2) The system wh ich generated this result transmit zoë reference range : 6.0-8.5 g/dL. T he reference range was not used to interpret this result as normal/abnormal . Sodium (test code = 140 mmol/L See_Comment [Automa zoë message] 2951-2) The system whic h generated this result transmit zoë reference range : 134-144 mmol/L. The reference range was not used to interpret this result as normal/abnormal . Uric Acid, [id number] 00:00:00 Test Item Value Reference Range Interpretation Comments Uric Acid (test 3.8 mg/dL See_Comment [Automated message] The code = 3084-1) system which generated this result tra nsmitted reference range : 3.0-7.2 mg/dL. The refe rence range was not u sed to interpret this result as normal/abnormal . CBC With Differential/[id number] 00:00:00 Test Item Value Reference Range Interpretation [...] 27.2 % See_Comment L [Auto mated = 9854-3) message] The sy stem which generated this result transmitted reference range : 34.0-46.6 %. Th e reference range was not used to interpret this result as normal/abnormal . Hematology Comments: (test code = 32199-4) Hemoglobin (test code 7.9 g/dL See_Comment L [Auto mated = 718-7) message] The sy stem which generated this result transmitted reference range : 11.1-15.9 g/dL. The reference range was not used to interpret this result as normal/abnormal . Immature Cells (test code = UNLOINC) Immature Grans (Abs) 0.0 x10E3/uL See_Comment [Autom ated (test code = 78555-7) messag e] The system which generated this result transmitted reference range : 0.0-0.1 x10E3/u L. The reference r rita was not used to interpret this result as normal/abnormal . Immature Granulocytes 0 % Not Estab. % (test code = 80116-4) Lymphs (test code = 27 % Not [...] as normal/abnormal . NRBC (test code = 43881-3) Platelets (test code 319 x10E3/uL See_Comment [Autom [...] result as normal/abnormal . TSH reflex to [id number] 00:00:00 Test Item Value Reference Range Interpretation Comments TSH (test code = 1.260 uIU/mL See_Comment [Automated message] The 06333-2) system which ge nerated this result tra nsmitted reference range : 0.450-4.500 uIU /mL. The reference range was not used to interpr et this result as normal/abnormal . Tissue [id number] 18:50:00 Test Item Value Reference Range Interpretation Comments Case Report (test code Surgical Pathology = 104) Report Case: [id number] Authorizing Provider: Juan Gallardo, Collected: 09/19/2020 02:54 PM Ordering Location: [facility] Received: 09/19/2020 03:32 PM PERIOPERATIVE SERVICES Pathologist: Jarad Menchaca MD Specimen: Plaque, LEFT CAROTID ARTERY PLAQUE DIAGNOSIS (test code = r7vieIUlRYVwp0lxIOFnjCE 3220) uZzEwMzNcZnRuYmpcdWMxIH tccnRmMVxlcGljOTIwMFxhb jZeDTBnhYPeZ4DvxverHVqx MJ2wBD8hsYqvdAOtvHCzUCW sEoNko5qau785bGZmu5xtZV ZRjkdnpZx0fKebV78fi0A4S vjjC94luKObGVceyLUutlhm czIwIEFSVEVSWSwgTEVGVCB DQVJPVElELCBFTkRBUlRFUk LMJW6UWUkunTRdDDSSFTLRE ruAMUCWVHQMR0BKTYYKA7XX LuMULBMTIKZoGXQimm21DDI 5EjGvc0J6EWR7SIOkOZIyh4 lcZGVmbGFuZzEwMzNcZnRuY nmdiGJePHTrLeEmo5kom596 gEPjv6ndCECqGsD8iCMsSLA ycEDqK125ICOzGYsbn3drg2 PzBRLriUKyg7K0BWOUkboep Kh2xSqvQ78ed5U3PzuoV1gp ODEfQJTwE4PvMV1hMWVpJcm 0FIC3CMJ9LBMtVXAwX2UaUN 2jZVAaqRTcHWi0p4lbzKpjF XNcQII8q9gwEXaumnSoMG2g xw0epDx8f8znpeVyEGAcXPF zpHYEXAXgC6YyzIbhFy7qiL w0nKsxOekiUTI3Mnz5RY7ja u87oid6kDddEMNbsnwcGrD7 XZyuLBJrtcqiUEb5GMuzRQK hbCM2CJBrcSNyW9LzHMNpLB 4ycbk8OTX0MPvcSWThPbN4E SMysOKaEMQvaCmrCOsun858 ECJ9LuFrGT8uU5Rto6B6dW8 maXRcZGVmdGFiNzIwXGZvcm 9gvSJwXYlpv8VxSNF4njS1d ANbrWEqWFJtJeR8AKdzLH4t yp45DKGdIWG4db2onMGbpJt xugTcpVZqTGlkY1GzVESbl7 00NPKlA3AkJCDqq7H6khAqR mQvKUHldKE4wwR8JUXhVC5d kojjk9kbZDglOEjwEPHvvmH 6qwI4EXSojWHzC9ImlS7hLV OyED3uwzawq4itTDM6NIquH OBrURQ7TtIyFRDsh0Xhjmf1 HhXop2BenILnNGizQ50ar13 6VSUxvtThE6iwtNQzdfyjiI WmnxdeJQaagpN2KZJnNKgbl livOIFrMFcyA3eyIbBsYEWw hOfiVNshx3RbPQRbPGOlQjP ywONfDSTvKed2WGMrlJWbJW CkCeViU9nregnwRuBQQYUug 2hzM6sgoPFBaDAhX1LvNTag jfSgHWrgSTiiCXIjZBY3UZ7 5XhmlIVFzyv13 CPT Code(s) (test code t0gqcCAyPCMgsUQ8UkZqBNJ = 3357) bn3inx3BxxYJzqNIdXCnrkU XvlkCndl36jZN0fQ91WZ9vB KGwVeI1IQNilkQ5Olz6IKGm SBZvbSMdJ647k2ecd8tyenN vcKD4xMydKRMpUXIvVYwrOK KtHhZyXFqkMMI6VIj8JlGwC HBhcn0= CLINICAL HISTORY (test f7arfHXfXIGgoPG1JzTtBGN code = 3356) ej5klu0RsoJQuoGLiCQpwnQ BveySucv57qVR2fB40UZ2sQ VEjRcG6HMFvryK6Spm6ICFw QQJfnNAmS895v4eeb6lmygD itXZ1wHtfIUNgSBSjCMhgUT FkXqQjYJJuo9XaHZaiR92ej 2lzOiAgbGVmdCBjYXJvdGlk OCR6XY0ej5noYVHxun6= SPECIMEN SOURCE (test u6qcwHPuZQGagAX7FvJbWYO code = 3377) nm4jdx9JjtWFvgHExRIrudB HkpdZxzl22dLH7bY99PH7mD NSeGoV4IGGxzcS2Ghd7EARn PMWmyWBlE587i2bjw3jtusJ ygBA6hXfvFQQpMNNbRQzyKD ZzMjAgUGxhcXVlIFxwYXJ9 GROSS DESCRIPTION x8qrwLXoORAfnNJ5VoQcUIB (test code = 3366) er1wpf6FduFAkqEAuUJuwhX ReinIhiz36pVE3xV72ZJ9zH HMgArA7KZEpkmX8Hbe9DWVz UPUefORhH602u6ysx6ebguZ bbFK3oOrjOXOoGPPfXRgkDR ImXdCwTgNxGDa7ZWToOeBum 6amoHAxXVboMRS9lKWqVKXb JPEfBFPvLV50W3VqhiLxBLn dAQWfFMQshI3qFR90kBItiy QrcjWqWdUrLTZ7VAfadXCvc CBjYXJvdGlkIGFydGVyeSBw hQJadPRfXNiiUAEjMb0wXDh eIq6yJYEhAYbxrvFzrZzhyt EfyrIheUBszRBmBgP8KAflq 3cgcGxhcXVlIHRoYXQgZGlz rKetrXDoO7KkZ7clxNXjyKu ibn3qWKgeNNVxKBJyaLVbYO meWRPdmaxahZy0KJWfV0Jum 88hSSO7xaYlAKGqGNldAWN8 NJsnk9aeaI1tx6gmxpAooFQ xD4RvO2nceFIuOEUgeqBwkq 4gVGhlIHNwZWNpbWVuIGlzI SY3Us4eaQRgQRRfqaSzpFYf MO03mOPwqMoqEf5xgA32hQ4 gMWJbU6CiO6ypeIVhtEqxoj RghtJPFV1pPJyGG1JwGYsoZ XJ9 MICROSCOPIC p4ozvOLiZADpwTA1NhRfRCL DESCRIPTION (test code du4epx6PzjPIikCViCDhfkM = 3371) RrreFman82uAE2zC15WH5mB AQvHoB0MHJlgyD8Gip0EAXq XPSnmXRmY319y8sua6ugubP mkBZ5rRehWWEuYEZrDCxsXU BlJfLjPQZwGl5poOUrBBPvn n0= [facility] Hospital[facility]issue [id number] 18:50:00 Test Item Value Reference Range Interpretation Comments Case Report (test code Surgical Pathology = 104) Report Case: [id number] Authorizing Provider: Juan Gallardo, Collected: 09/19/2020 02:54 PM Ordering Location: [facility] Received: 09/19/2020 03:32 PM PERIOPERATIVE SERVICES Pathologist: Jarad Menchaca MD Specimen: Plaque, LEFT CAROTID ARTERY PLAQUE DIAGNOSIS (test code = g0ynaFGuLLZlv0tpCZWjjTH 3220) uZzEwMzNcZnRuYmpcdWMxIH tccnRmMVxlcGljOTIwMFxhb rLbUZYspXZgA5BcslzgFTjr MU1gTD2siIhxpLFusEWsOTN jPoQrw5zao150rGGyl9uaWT NQedenvJr2zNshO98al1O8L xkdW69arFNjZCfgyDVnwofw czIwIEFSVEVSWSwgTEVGVCB DQVJPVElELCBFTkRBUlRFUk DRRH4XRFvadWBaVGBHKBJJS zgMMOLYGBWYH3YLSCGSA7HY TeXLBTTQBAIoQWTwid75JDF 7XnIxn5U8RPB8LTVqCVXgl4 lcZGVmbGFuZzEwMzNcZnRuY ensbIYlGMKnGtFmo3rla260 lBFdh3tkLSGrXiP0lIKiEZK nnCDmH044KJHhDMvhs2ipi1 UkTNJrsNMxt5U4KTMGrrfta Qt8sHezR85zm9P3UbvzW7iz OUSbILRgA6QbEG3pFZGdRvz 6KFT7DOD8PLLlPNGkZ2ZvQN 9vGADucUAuFSh2m8vfrSphE SZsXMT9q9ymNIobliHzDK0y yv1yvVi8h1mqaaKaVXGrCAJ cjFUFLGGuN8HklFuhUk5mzB v4fVgnDpyiJNT1Kui4DA2lg d86vke1lGryQXBuvotvUgT8 GPiyLGDzilgnAUy5OPpxUNC hvQJ3RRKdtECuA2SiZTFbZS 0gxwv9WMZ4KRxnRUZsPbW8T SUwqYKiAPSmmUxpMXmyo837 MZA3BfDvEH5qP1Fnp0L4jQ4 maXRcZGVmdGFiNzIwXGZvcm 5gcKMnWIihj4JaHKU4srR2l WBmqPCwERKgEdS0VVpcHR2y ob77VQThGLG6hw2gdCEocRn nmxJhePUkKDxgF2NfTZGju7 05ORWhN0VsNVHac9I1zzHhC zHdGVXphQI3wjE1TWSvYF7n fewtl4rzDFbfQJycTUZtjwD 4hmU7LHTslXPdO0VpnV6pJW XzIH6didanj4kbMPI8NEnxN YKmDZJ7BoGoOIVit6Mzrfc0 XxZin5UgtSTcUWyvB88cl94 4FYXquoWyU0hakXBkzzrejU IohfbvRKkndxT4MAUjMMreh egjHUUqUZzmY9xuNmQoJXDu zNpfIFnjm0JsAIWoUFWcQiK hsBCkIXVkTad2VXTjkMOkHL WbRyFoX1erjuqyLnROJHRgo 2siW9hshBZEjSAmI0KfYOue buErRRwjDYexPYJgHFI3AT0 9JvfiOIAhky06 CPT Code(s) (test code m7rvrNRsFKFhxBU2VgOlHHH = 3357) xi3lka0KpyDTvlOVvCZsoiM MzmjPuya73yLL2cQ00MO5aS ENzCsD1MZVxsoQ5Hjk6ZWFw BGOpvEQpI854b7gsz0qxdqW yyYZ2cGbkKOXkEJWvARsyRH GmSwPuSMlnADG4BEg9BmOoM HBhcn0= CLINICAL HISTORY (test v8sqqQRpCGPuxVS6QuXfRBW code = 3356) bd7fgv2HncKEdcVKoGErmhD UmhgFfsh77vQK7yO47QZ4cA ISgCrU7VZWgqtT5Glj4AMNb HVVjmGXjZ865x9kxz3jtxmH oySR4vEamHDPlAJBcDMjpVA YbKlLwRSMqo6PaYTmkY60id 2lzOiAgbGVmdCBjYXJvdGlk MTG1DA5yo8dmAJFjzn2= SPECIMEN SOURCE (test z1ycjYNcZKXzqUC3CqPfKSR code = 3377) lb6ica8LpsWRrmSHhLZvgqK ZnxjTpiv57rKD0fL20JS0rB DJkEhW1WSLoxdC6Wer1FBTs PVXmwBIsC276x7aeh3ggzhQ qfKV0aUdwPPPlKXMeTJldFP ZzMjAgUGxhcXVlIFxwYXJ9 GROSS DESCRIPTION p2hcfBMqIYIydQE6RhHkGTI (test code = 3366) qy6svc2TlcONvxZZxBZqurH QoqlEbsl73pIT6zM32RL5iS ZAzIjD5COWpegM2Sbl8YDXb LASveDQpL917a1wbd6eqzvD fyWI0uGdpDPUiCRYcKPorQR KdQgZdJcBsCVz7NEVgSnLfh 9zptTUnJJqkHYV4rEGlMOHl LTHdSQTqXG79A5JoksVmLIp nMUIgXQWmxL0rFU46vNDrym OhpxSzQsOwUKL9YQdjfSJrb CBjYXJvdGlkIGFydGVyeSBw mVJsuNQkKRkwTACpAw2qLEz aAi0jWRYnAYczwsWpaVexqi HspsPifWZrzCIgCuB8VIomg 3cgcGxhcXVlIHRoYXQgZGlz jWgnfOQyZ3DhA9cjgGWyfUs yrp4kIBygTSShCQYkwLOoQH uxMCTaxqxqvZi1VJRnT5Vfc 48oBHH5giGzMYFpWKdoMVE4 HRwdc4fhwG6fb7mmjiKmuOH pJ0NoK7vytIRrWSBggcIzis 4gVGhlIHNwZWNpbWVuIGlzI ZV2Vx5qhGVgIZSokgUmvCKl XG66kLDjkOzpZy9bcO76eC7 xWNQlA9VaG0mckESenGgmej AgidXYYZ1bKQiHO0ZrTGxrJ XJ9 MICROSCOPIC b6jgeKXgAEKkxJR9RlTtDQL DESCRIPTION (test code ii3iin2OryKXvxNVfQDufrO = 3371) JggpKuuk17dUY8hH48QP0lZ DRhDzT3DEAagbY2Qft5OYAu BDQezAVrE183t3jmc3scwmJ mzER4iZwfUUNdMKXpHZxhEV ImBjZmSKZqMh9xfDVzQXAqv n0= [facility] Hospital[facility]ISS[facility] [id number] 18:50:00Surgical Pathology Report Case: [id number] Authorizing Provider: Juan Gallardo, Collected:09/19/2020 02:54 PM Ordering Location: [facility] Received: 09/19/2020 03:32 PM PERIOPERATIVE SERVICES Pathologist: Jarad Menchaca MD Specimen: Plaque, LEFT CAROTID ARTERY PLAQUE ARTERY, LEFT CAROTID, ENDARTERECTOMY:CALCIFIC ATHEROSCLEROTIC PLAQUE Signing Pathologist Direct Phone Line: [phone] signed by Jarad Menchaca MD on 09/23/2020 at 6:50 [id number]; [id number] diagnosis: left carotid stenosisPlaque Received fresh labeled with the patient's name, accession number and "plaque, left carotid artery plaque" is a 2.0 x 2.0 cm irregular fragment of yellow plaque that disp lays calcification. The specimen is serially sectioned to reveal a yellow homogeneous calcified center. The specimen is submitted in its entirety following decalcification in A1. JG/pl PerformedPOC-Glucose [id number] 11:48:00 Test Item Value Reference Range Interpretation Comments POC-Glucose Meter (test 208 mg/dL 70-110 H : TE STED AT [facility] code = 1538) [address] [place] [address], [facility] 30: Academic Affairs Assistant/Techni ciara ID = [id number] for IVONNE, BERT Lab Interpretation (test Abnormal code = 51311-3) [facility] [id number] 11:48:00 Test Item Value Reference Range Interpretation Comments POC-Glucose Meter (test 208 mg/dL 70-110 H : TE STED AT [facility] code = 1538) [address] [place] [address], [facility] 30: Academic Affairs Assistant/Techni ciara ID = [id number] for IVONNE, BERT Lab Interpretation (test Abnormal code = 98509-4) [facility] [id number] 11:48:00 Test Item Value Reference Range Interpretation Comments POC-GLUCOSE METER 208 mg/dL 70-110 H : TESTED [place] [address] ([facility] (test code = [facility], 1538) [address]: Academic Affairs Assistant/Techni ciara ID = [id number] for BERT ROUSSEAU POCT-GLUCOSE [id number] 08:17:00 Test Item Value Reference Range Interpretation Comments POC-GLUCOSE METER 183 mg/dL 70-110 H : TESTED [place] [address] ([facility]) (test code = [facility], 1538) [address]: Academic Affairs Assistant/Techni ciara ID = [id number] for BERT ROUSSEAU POC ACTIVATED CLOTTING [id number] 06:23:00 Test Item Value Reference Range Interpretation Comments Activated Clotting Time 241 sec : 74 -137 seconds, (test code = 441) Baseline: TESTED AT [address], [address]: Academic Affairs Assistant/Techni ciara ID = [id number] for CAST RO, NAT [facility] ACTIVATED CLOTTING [id number] 06:23:00 Test Item Value Reference Range Interpretation Comments Activated Clotting Time 241 sec : 74 -137 seconds, (test code = 441) Baseline: TESTED AT [address], [address]: Academic Affairs Assistant/Techni ciara ID = [id number] for CAST RO, NAT [facility][id number] 06:23:00 Test Item Value Reference Range Interpretation Comments ACTIVATED CLOTTING TIME 241 sec : 74 -137 seconds, (BEAKER) (test code = Baseli ne: TESTED AT 441) [address], [address]: Academic Affairs Assistant/Techni ciara ID = [id number] for CA STRO, NAT [id number] 06:23:00 Test Item Value Reference Range Interpretation Comments ACTIVATED CLOTTING TIME 224 sec : 74 -137 seconds, (BEAKER) (test code = Baseli ne: TESTED AT 441) [address], [address]: Academic Affairs Assistant/Techni ciara ID = [id number] for CA STRO, NAT CBC with platelet count + automated [id number] 01:08:00 Test Item Value Reference Range Interpretation Comments WBC (test code = 6690-2) 12.8 See_Comment H [A utomated message] The system Screenz generated this result transmitted ref erence range: 3.5 - 10 .5 K/µL. The refe rence range was not u sed to interpret this result as normal/abnor mal. RBC (test code = 789-8) 3.64 See_Comment L [Au tomated message] The system Screen[employer] generated this result transmitted ref erence range: 3.93 - 5 .22 M/µL. The refe rence range was not u sed to interpret this result as normal/abnor mal. MCHC (test code = 786-4) 30.3 See_Comment L [A utomated message] The system Screen[employer] generated this result transmitted ref erence range: [...] See_Comment [Aut omated message] 777-3) The system Screen[employer] generated this result transmitted ref erence range: 150 - 45 0 K/CU MM. The referen ce range was not u sed to interpret this result as normal/abnor mal. MPV (test code = 10.5 fL 9.4-12.3 62098-0) nRBC (test code = 413) 0 See_Comment [Aut omated message] The system Screen[employer] generated this result transmitted ref erence range: [...] H [Aut omated message] 670) The system Screen[employer] generated this result transmitted ref erence range: 1.56 - 6 .13 K/µL. The refe rence range was not u sed to interpret this result as normal/abnor mal. # Lymphs (test code = 1.06 See_Comment L [Auto mated message] 414) The system Screenz generated this result transmitted ref erence range: 1.18 - 3 .74 K/µL. The refe rence range was not u sed to interpret this result as normal/abnor mal. # Monos (test code = 0.20 See_Comment L [Autom ated message] 415) The system Screen[employer] generated this result transmitted ref erence range: 0.24 - 0 .36 K/µL. The refe rence range was not u sed to interpret this result as normal/abnor mal. # Eos (test code = 416) 0.00 See_Comment L [Au tomated message] The system Screenz generated this result transmitted ref erence range: 0.04 - 0 .36 K/µL. The refe rence range was not u sed to interpret this result as normal/abnor mal. # Baso (test code = 417) 0.03 See_Comment [A utomated message] The system Screenz generated this result transmitted ref erence range: 0.01 - 0 .08 K/µL. The refe rence range was not u sed to interpret this result as normal/abnor mal. Immature 1 % 0-1 Granulocytes-Relative (test code = 2801) Lab Interpretation (test Abnormal code = 09982-1) [facility] with platelet count + automated [id number] 01:08:00 Test Item Value Reference Range Interpretation Comments WBC (test code = 6690-2) 12.8 See_Comment H [A utomated message] The system Screenz generated this result transmitted ref erence range: 3.5 - 10 .5 K/µL. The refe rence range was not u sed to interpret this result as normal/abnor mal. RBC (test code = 789-8) 3.64 See_Comment L [Au tomated message] The system Screenz generated this result transmitted ref erence range: 3.93 - 5 .22 M/µL. The refe rence range was not u sed to interpret this result as normal/abnor mal. MCHC (test code = 786-4) 30.3 See_Comment L [A utomated message] The system Screenz generated this result transmitted ref erence range: [...] See_Comment [Aut omated message] 777-3) The system Screenz generated this result transmitted ref erence range: 150 - 45 0 K/CU MM. The referen ce range was not u sed to interpret this result as normal/abnor mal. MPV (test code = 10.5 fL 9.4-12.3 61864-0) nRBC (test code = 413) 0 See_Comment [Aut omated message] The system Screenz generated this result transmitted ref erence range: [...] H [Aut omated message] 670) The system Screenz generated this result transmitted ref erence range: 1.56 - 6 .13 K/µL. The refe rence range was not u sed to interpret this result as normal/abnor mal. # Lymphs (test code = 1.06 See_Comment L [Auto mated message] 414) The system whic h generated this result transmitted ref erence range: 1.18 - 3 .74 K/µL. The refe rence range was not u sed to interpret this result as normal/abnor mal. # Monos (test code = 0.20 See_Comment L [Autom ated message] 415) The system Screenz generated this result transmitted ref erence range: 0.24 - 0 .36 K/µL. The refe rence range was not u sed to interpret this result as normal/abnor mal. # Eos (test code = 416) 0.00 See_Comment L [Au tomated message] The system Screenz generated this result transmitted ref erence range: 0.04 - 0 .36 K/µL. The refe rence range was not u sed to interpret this result as normal/abnor mal. # Baso (test code = 417) 0.03 See_Comment [A utomated message] The system Screenz generated this result transmitted ref erence range: 0.01 - 0 .08 K/µL. The refe rence range was not u sed to interpret this result as normal/abnor mal. Immature 1 % 0-1 Granulocytes-Relative (test code = 2801) Lab Interpretation (test Abnormal code = 79862-0) [facility] W/PLT COUNT & AUTO [id number] 01:08:00 Test Item Value Reference Range Interpretation [...] (BEAKER) (test code = 2801) Basic Metabolic [id number] 00:56:00 Test Item Value Reference Range Interpretation [...] (test code = 8.2 mg/dL 8.4-10.2 L 36515-8) EGFR (test code = 75 mL/min/1.73 [place] [address]-7) NOT ACCURATE CREATININE CLEARANCE IN PREDICTING GLOMERULAR FILTRATION RATE . ESTIMATED GFR I S NOT APPLICABLE FOR DIALYSIS PATIENTS. GABRIELA (test code = GABRIELA) Academic Affairs Assistant ID - PIAYA L Lab Interpretation Abnormal (test code = 85898-6) [facility] 00:56:00 Test Item Value Reference Range Interpretation Comments Magnesium (test code = 1.7 mg/dL 1.6-2.6 00974-5) GABRIELA (test code = GABRIELA) Academic Affairs Assistant ID - PIAYA L Lab Interpretation (test Normal code = 60971-4) [facility] 00:56:00 Test Item Value Reference Range Interpretation Comments Phosphorus (test code = 3.7 mg/dL 2.3-4.7 2777-1) GABRIELA (test code = GABRIELA) Academic Affairs Assistant ID - PIAYA L Lab Interpretation (test Normal code = 63250-8) [facility] [id number] 00:56:00 Test Item Value Reference Range Interpretation [...] (test code = 8.2 mg/dL 8.4-10.2 L 90550-2) EGFR (test code = 75 mL/min/1.73 [place] [address]-6) NOT ACCURATE CREATININE CLEARANCE IN PREDICTING GLOMERULAR FILTRATION RATE . ESTIMATED GFR I S NOT APPLICABLE FOR DIALYSIS PATIENTS. GABRIELA (test code = GABRIELA) Academic Affairs Assistant ID - PIAYA L Lab Interpretation Abnormal (test code = 22625-9) [facility] 00:56:00 Test Item Value Reference Range Interpretation Comments Magnesium (test code = 1.7 mg/dL 1.6-2.6 07953-9) GABRIELA (test code = GABRIELA) Academic Affairs Assistant ID - RHEATUAN L Lab Interpretation (test Normal code = 21376-6) [facility] 00:56:00 Test Item Value Reference Range Interpretation Comments Phosphorus (test code = 3.7 mg/dL 2.3-4.7 2777-1) GABRIELA (test code = GABRIELA) Academic Affairs Assistant ID - FARHAD L Lab Interpretation (test Normal code = 81327-4) [facility] [id number] 00:56:00 Test Item Value Reference Range Interpretation [...] S NOT APPLICABLE FOR DIALYSIS PATIEN TS. Academic Affairs Assistant ID - PITUAN [id number] 00:56:00 Test Item Value Reference Range Interpretation Comments MAGNESIUM (BEAKER) (test code = 1.7 mg/dL 1.6-2.6 627) Academic Affairs Assistant ID - FARHAD SELICJGFJGJ3894-19-93 00:56:00 Test Item Value Reference Range Interpretation Comments PHOSPHORUS (BEAKER) (test code = 3.7 mg/dL 2.3-4.7 604) Academic Affairs Assistant ID - FARHAD LCalcium, [id number] 00:31:00 Test Item Value Reference Range Interpretation Comments Calcium, Ion (test code = 1993-) 1.18 mmol/L 1.12-1.27 pH, Blood (test code = 26460-3) 7.39 [facility], [id number] 00:31:00 Test Item Value Reference Range Interpretation Comments Calcium, Ion (test code = 1993-) 1.18 mmol/L 1.12-1.27 pH, Blood (test code = 58801-5) 7.39 [facility], [id number] 00:31:00 Test Item Value Reference Range Interpretation Comments CALCIUM IONIZED (BEAKER) (test 1.18 mmol/L 1.12-1.27 code = 698) PH, BLOOD (BEAKER) (test code = 7.39 1810) [id number] 10:46:00 Test Item Value Reference Range Interpretation Comments PTT (test code = 60538-3) 27.9 See_Comment [ Automated message] The system [employer] generated this result transmitted ref erence range: 22.5 - 3 6.0 seconds. The re ference range was not u sed to interpret this result as normal/abnor mal. Lab Interpretation (test Normal code = 01811-0) [facility] 10:46:00 Test Item Value Reference Range Interpretation Comments PTT (test code = 81379-0) 27.9 See_Comment [ Automated message] The system [employer] generated this result transmitted ref erence range: 22.5 - 3 6.0 seconds. The re ference range was not u sed to interpret this result as normal/abnor mal. Lab Interpretation (test Normal code = 38670-5) [facility] 10:46:00 Test Item Value Reference Range Interpretation Comments PARTIAL THROMBOPLASTIN TIME 27.9 seconds 22.5-36.0 (BEAKER) (test code = 760) Prothrombin time/[id number] 10:45:00 Test Item Value Reference Interpretation Comments Range Protime (test code = 13.4 See_Comment [Autom ated 5902-2) message] The system which generated this result transmitted reference range : 11.9 - 14.2 seconds. The reference range was not used to interpret this result as normal/abnormal . INR (test code = 1.05 See_Comment [Automated 9181-6) message] The system which generated this result [...] valves. Lab Interpretation Normal (test code = 70320-6) [facility]/[id number] 10:45:00 Test Item Value Reference Interpretation Comments Range Protime (test code = 13.4 See_Comment [Autom ated 5902-2) message] The system which generated this result transmitted reference range : 11.9 - 14.2 seconds. The reference range was not used to interpret this result as normal/abnormal . INR (test code = 1.05 See_Comment [Automated 8561-6) message] The system which generated this result [...] valves. Lab Interpretation Normal (test code = 92010-3) [facility]PROTHROMBIN [facility]/[id number] 10:45:00 Test Item Value Reference Range Interpretation [...] 2.5-3.5 for patients wiht mechanical heart valves.POCT-GLUCOSE [id number] 09:19:00 Test Item Value Reference Range Interpretation Comments POC-GLUCOSE METER 187 mg/dL 70-110 H : TESTED A T [facility] 6720 (YECENIA) (test code = ERENDIRA MUNGUIA AR, 1538) [address]2745: Academic Affairs Assistant/Techni ciara ID = [id number] for Jojo Rivers ECG 12 [id number] 12:51:19Interface, External Ris In - 09/14/2020 12:51 PM CSTVentricular Rate 65 BPMAtrial Rate 65 BPMP-R Interval 154 msQRS Duration 78 msQ-T Interval 442 msQTC Calculation(Bazett) 459 msP Jenkins 5 degreesR Axis77 degreesT Jenkins 66 degreesNormal sinus rhythmNonspecific T wave abnormalityProlonged QTWhen compared with ECG of 02-AUG-2019 06:01,Premature ventricular complexes are no longer PresentConfirmed by Daksha NICHOLE BASANT ([id number]) on 09/14/2020 12:51:17 [facility] [id number] 12:51:19Interface, External Ris In - 09/14/2020 12:51 PM CSTVentricular Rate 65 BPMAtrial Rate 65 BPMP-R Interval 154 msQRS Duration 78 msQ-T Interval 442 msQTC Calculation(Bazett) 459 msP Jenkins 5 degreesR Axis77 degreesT Jenkins 66 degreesNormal sinus rhythmNonspecific T wave abnormalityProlonged QTWhen compared with ECG of 02-AUG-2019 06:01,Premature ventricular complexes are no longer PresentConfirmed by Daksha NICHOLE BASANT ([id number]) on 09/14/2020 12:51:17 [facility] CenterABORH, [id number] 16:42:00 Test Item Value Reference Range Interpretation Comments ABO Grouping (test code = 2588) A Rh Factor (test code = 2589) POS [facility]AB[facility], [id number] 16:42:00 Test Item Value Reference Range Interpretation Comments ABO Grouping (test code = 2588) A Rh Factor (test code = 2589) POS [facility]Type [facility] screen, [id number] 16:36:00 Test Item Value Reference Range Interpretation Comments Ab Scrn (test code = 890-4) NEGATIVE echo2 [facility] HospitalType [facility] screen, [id number] 16:36:00 Test Item Value Reference Range Interpretation Comments Ab Scrn (test code = 890-4) NEGATIVE echo2 [facility] [facility] [id number] 15:32:00 Test Item Value Reference Range Interpretation [...] S NOT APPLICABLE FOR DIALYSIS PATIEN TS. Academic Affairs Assistant ID - ADMINPROTHROMBIN TIME/[id number] 15:29:00 Test Item Value Reference Range Interpretation [...] mechanical heart valves.CBC W/PLT COUNT & AUTO [id number] 15:17:00 Test Item Value Reference Range Interpretation [...] (BEAKER) (test code = 2801) BASIC METABOLIC [id number] 06:24:00 Test Item Value Reference Range Interpretation [...] 0-0 (BEAKER) (test code = 413) POCT-GLUCOSE [id number] 21:22:00 Test Item Value Reference Range Interpretation Comments POC-GLUCOSE METER 138 mg/dL 70-110 H TESTED AT [place] [address] ([facility]) (test code = ERENDIRA Guzman [facility] 1538) [address] POCT-GLUCOSE [id number] 17:38:00 Test Item Value Reference Range Interpretation Comments POC-GLUCOSE METER 131 mg/dL 70-110 H TESTED AT [place] [address] ([facility]) (test code = ERENDIRA Guzman [facility] 1538) [address] BASIC METABOLIC [id number] 06:07:00 Test Item Value Reference Range Interpretation [...] 1092) DATA TO CALCULA TE ESTIMATED GFR. [id number] 06:04:00 Test Item Value Reference Range Interpretation [...] H (BEAKER) (test code = 413) POCT-GLUCOSE [id number] 23:10:00 Test Item Value Reference Range Interpretation Comments POC-GLUCOSE METER 127 mg/dL 70-110 H TESTED AT [place] [address] ([facility]) (test code = [place]ENDIRA [place] 1538) [address] POCT-GLUCOSE [id number] 12:36:00 Test Item Value Reference Range Interpretation Comments POC-GLUCOSE METER 157 mg/dL 70-110 H TESTED AT [facility] 6720 ([facility]) (test code = ERENDIRA [place] 1538) [address] CBC (HEMOGRAM ONLY)2019-08-02 06:03:00 Test Item Value [...] (BEAKER) (test code = 413) BASIC METABOLIC [id number] 05:47:00 Test Item Value Reference Range Interpretation [...] 1092) DATA TO CALCULA TE ESTIMATED GFR. [id number] 05:46:00 Test Item Value Reference Range Interpretation Comments PHOSPHORUS (BEAKER) (test code = 2.5 mg/dL 2.3-4.7 604) [id number] 05:46:00 Test Item Value Reference Range Interpretation Comments MAGNESIUM (BEAKER) (test code = 2.1 mg/dL 1.6-2.6 627) POCT-GLUCOSE [id number] 20:47:00 Test Item Value Reference Range Interpretation Comments POC-GLUCOSE METER 164 mg/dL 70-110 H TESTED AT [place] [address] (BEAKER) (test code = [facility] 1538) [address] POCT-GLUCOSE [id number] 17:38:00 Test Item Value Reference Range Interpretation Comments POC-GLUCOSE METER 194 mg/dL 70-110 H TESTED AT [place] [address] ([facility]) (test code = [facility] 1538) [address] POCT-GLUCOSE [id number] 07:51:00 Test Item Value Reference Range Interpretation Comments POC-GLUCOSE METER 157 mg/dL 70-110 H TESTED AT [place] [address] ([facility]) (test code = [facility] 1538) [address] HEMOGLOBIN [id number] 07:51:00 Test Item Value Reference Range Interpretation Comments HEMOGLOBIN A1C (BEAKER) (test code = 8.6 % 4.3-6.1 H 368) BASIC METABOLIC [id number] 06:11:00 Test Item Value Reference Range Interpretation [...] 1092) DATA TO CALCULA TE ESTIMATED GFR. [id number] 06:10:00 Test Item Value Reference Range Interpretation Comments PHOSPHORUS (BEAKER) (test code = 1.9 mg/dL 2.3-4.7 L 604) [id number] 06:10:00 Test Item Value Reference Range Interpretation [...] 0-0 (BEAKER) (test code = 413) POCT-GLUCOSE [id number] 22:07:00 Test Item Value Reference Range Interpretation Comments POC-GLUCOSE METER 175 mg/dL 70-110 H TESTED AT [facility] 6720 (BEAKER) (test code = ERENDIRA [place] 1538) [address] POCT-GLUCOSE [id number] 18:30:00 Test Item Value Reference Range Interpretation Comments POC-GLUCOSE METER 225 mg/dL 70-110 H TESTED AT [facility] 6720 (BEAKER) (test code = ERENDIRA Guzman [place] 1538) [address] POCT-GLUCOSE [id number] 12:17:00 Test Item Value Reference Range Interpretation Comments POC-GLUCOSE METER 170 mg/dL 70-110 H TESTED AT [facility] 6720 (BEAKER) (test code = ERENDIRA Guzman [facility] 1538) [address] POCT-GLUCOSE [id number] 08:20:00 Test Item Value Reference Range Interpretation Comments POC-GLUCOSE METER 161 mg/dL 70-110 H TESTED AT [facility] 6720 (BEAKER) (test code = ERENDIRA Guzman [facility] 1538) [address] BASIC METABOLIC [id number] 08:18:00 Test Item Value Reference Range Interpretation [...] 1092) DATA TO CALCULA TE ESTIMATED GFR. [id number] 08:15:00 Test Item Value Reference Range Interpretation Comments MAGNESIUM (BEAKER) 1.9 mg/dL 1.6-2.6 Specimen slightly (test code = 627) hemolyzed [id number] 08:15:00 Test Item Value Reference Range Interpretation Comments PHOSPHORUS (BEAKER) 2.3 mg/dL 2.3-4.7 Specimen slightly (test code = 604) hemolyzed RAD, CHEST, 1 VIEW, NON [id number] 07:56:00Reason for exam:->post-op cardiac surgeryShould this be [...] MDReport Verified Date/Time: 07/31/2019 07:56:15 Reading Location: [facility] Radiology Reading Room Electronically signed by: DIXON WILKERSON on 07/31 07:56 [id number] 07:25:00 Test Item Value Reference Range Interpretation [...] MEAN CORPUSCULAR HEMOGLOBIN 32.5 pg 25.6-32.2 H ([facility]) (test code = 751) MEAN CORPUSCULAR HEMOGLOBIN CONC 31.1 GM/DL 32.2-35.5 L ([facility]) (test code = 752) RED CELL DISTRIBUTION WIDTH 19.2 % 11.7-14.4 H ([facility]) (test code = 412) PLATELET COUNT ([facility]) (test 218 K/CU MM 150-450 code = 756) MEAN PLATELET VOLUME ([facility]) 11.0 fL 9.4-12.3 (test code = 754) NUCLEATED RED BLOOD CELLS 0 /100 WBC 0-0 ([facility]) (test code = 413) POCT-GLUCOSE [id number] 21:32:00 Test Item Value Reference Range Interpretation Comments POC-GLUCOSE METER 168 mg/dL 70-110 H TESTED AT [place] [address] ([facility]) (test code = ERENDIRA Guzman [facility] 1538) [address] POCT-GLUCOSE [id number] 17:55:00 Test Item Value Reference Range Interpretation Comments POC-GLUCOSE METER 172 mg/dL 70-110 H TESTED AT [place] [address] ([facility]) (test code = ERENDIRA uGzman [facility] 1538) [address] POCT-GLUCOSE [id number] 15:34:00 Test Item Value Reference Range Interpretation Comments POC-GLUCOSE METER 152 mg/dL 70-110 H TESTED AT [place] [address] ([facility]) (test code = ERENDIRA Guzman [facility] 1538) [address] POCT-GLUCOSE [id number] 12:52:00 Test Item Value Reference Range Interpretation Comments POC-GLUCOSE METER 222 mg/dL 70-110 H TESTED AT [place] [address] ([facility]) (test code = ERENDIRA Guzman [place] 1538) [address] POCT-GLUCOSE [id number] 07:19:00 Test Item Value Reference Range Interpretation Comments POC-GLUCOSE METER 185 mg/dL 70-110 H TESTED AT [place] [address] ([facility]) (test code = ERENDIRA Guzman [place] 1538) [address] [id number] 06:16:00 Test Item Value Reference Range Interpretation Comments ACTIVATED CLOTTING TIME 109 sec Refe rence Range: 74-137 (BEAKER) (test code = second s, 441) Baseline/TESTED AT [facility] 67[address] [facility] [address] 0 [id number] 06:16:00 Test Item Value Reference Range Interpretation Comments ACTIVATED CLOTTING TIME 543 sec Refe rence Range: 74-137 (BEAKER) (test code = second s, 441) Baseline/TESTED AT [facility] 67[address] [facility] [address] 0 [id number] 06:16:00 Test Item Value Reference Range Interpretation Comments ACTIVATED CLOTTING TIME 510 sec Refe rence Range: 74-137 (BEAKER) (test code = second s, 441) Baseline/TESTED AT [facility] 67[address] [facility] [address] 0 BASIC METABOLIC [id number] 06:04:00 Test Item Value Reference Range Interpretation [...] 1092) DATA TO CALCULA TE ESTIMATED GFR. [id number] 06:02:00 Test Item Value Reference Range Interpretation Comments PHOSPHORUS (BEAKER) (test code = 3.7 mg/dL 2.3-4.7 604) [id number] 06:02:00 Test Item Value Reference Range Interpretation Comments MAGNESIUM (BEAKER) (test code = 2.0 mg/dL 1.6-2.6 627) [id number] 05:57:00 Test Item Value Reference Range Interpretation [...] 2.5-3.5 for patients wiht mechanical heart valves.PROTHROMBIN [id number] 05:56:00 Test Item Value Reference Range Interpretation [...] 2.5-3.5 for patients wiht mechanical heart valves.CALCIUM, [id number] 05:55:00 Test Item Value Reference Range Interpretation Comments CALCIUM IONIZED (BEAKER) (test 1.17 mmol/L 1.12-1.27 code = 698) PH, BLOOD (BEAKER) (test code = 7.38 1810) CBC W/PLT COUNT & AUTO [id number] 05:55:00 Test Item Value Reference Range Interpretation [...] (BEAKER) (test code = 2801) OXYGEN SATURATION, [id number] 05:49:00 Test Item Value Reference Range Interpretation Comments O2 SATURATION (MEASURED) (BEAKER) 77.2 % (test code = 1455) RAD, CHEST, 1 VIEW, NON [id number] 05:35:00Reason for exam:->post-op cardiac surgeryShould this be [...] Signed: Hortencia Brand Verified Date/Time: 07/30/2019 05:35:16 [id number] 18:41:00 Test Item Value Reference Range Interpretation Comments POTASSIUM (BEAKER) (test code = 4.2 meq/L 3.5-5.1 379) PRN - repeat potassium levels every 1 hour until glucose level is less than 450 mg/dLPOCT-GLUCOSE [id number] 18:14:00 Test Item Value Reference Range Interpretation Comments POC-GLUCOSE METER 175 mg/dL 70-110 H TESTED AT [facility] 6720 (BEAKER) (test code = ERENDIRA Guzman [place] 1538) [address] BLOOD GAS, [id number] 16:57:00 Test Item Value Reference Range Interpretation [...] (test code = 1819) 40.0 % HEMOGLOBIN [id number] 16:17:00 Test Item Value Reference Range Interpretation Comments HEMOGLOBIN A1C (BEAKER) (test code = 9.5 % 4.3-6.1 H 368) PLATELET AGGREGATION: FUNCTION [id number] 15:15:00 Test Item Value Reference Range Interpretation Comments [id number] Giovanni Tee M.D. ([facility]) (test code = (electonic signature) 5042) PLATELET COUNT AGG 273 K/CU MM 150-450 ([facility]) (test code = 2656) PLATELET RICH 258 k/cu mm 200-300 PLASMA([facility]) (test code = 2134) PLATELET FUNCTION Pattern of SCREEN INTERPRETATION disaggregation present ([facility]) (test code = with ADP which may be 4655) characteristic of P2Y12 inhibitor effect. Correlation with medication history is required. Platelet Function Screen results may be falsely low with platelet counts<75,000/cu mm.POCT-GLUCOSE [id number] 15:07:00 Test Item Value Reference Range Interpretation Comments POC-GLUCOSE METER 125 mg/dL 70-110 H TESTED AT [place] [address] ([facility]) (test code = BRIGIDASANDRA Guzman [facility] 1538) [address] POCT-GLUCOSE [id number] 14:26:00 Test Item Value Reference Range Interpretation Comments POC-GLUCOSE METER 85 mg/dL 70-110 TESTED AT [place] [address] ([facility]) (test code = [facility] [address] 1538) POCT-GLUCOSE [id number] 14:14:00 Test Item Value Reference Range Interpretation Comments POC-GLUCOSE METER 88 mg/dL 70-110 TESTED AT [place] [address] ([facility]) (test code = [facility] [address] 1538) RAD, CHEST, 1 VIEW, NON [id number] 13:11:00Reason for exam:->Status post CV Surgery post [...] Verified Da te/Time: 07/29/2019 13:11:13 Reading Location: [facility] Mammo Reading Room -GLUCOSE [id number] 13:00:00 Test Item Value Reference Range Interpretation Comments POC-GLUCOSE METER 132 mg/dL 70-110 H TESTED AT [facility] 6720 (BEAKER) (test code = [place]ENDIRA [place] 1538) [address] BASIC METABOLIC [id number] 12:28:00 Test Item Value Reference Range Interpretation [...] 1092) DATA TO CALCULA TE ESTIMATED GFR. [id number] 12:27:00 Test Item Value Reference Range Interpretation Comments PHOSPHORUS (BEAKER) (test code = 2.3 mg/dL 2.3-4.7 604) [id number] 12:27:00 Test Item Value Reference Range Interpretation Comments MAGNESIUM (BEAKER) (test code = 2.6 mg/dL 1.6-2.6 627) [id number] 12:26:00 Test Item Value Reference Range Interpretation Comments PARTIAL THROMBOPLASTIN TIME 27.4 seconds 22.5-36.0 (BEAKER) (test code = 760) PROTHROMBIN [id number] 12:25:00 Test Item Value Reference Range Interpretation [...] for patients wiht mechanical heart valves.LACTIC ACID, [id number] 12:21:00 Test Item Value Reference Range Interpretation Comments LACTATE BLOOD ARTERIAL (2) 1.2 mmol/L 0.5-2.2 (BEAKER) (test code = 2874) CBC W/PLT COUNT & AUTO [id number] 12:08:00 Test Item Value Reference Range Interpretation [...] PERCENT (BEAKER) (test code = 2801) CALCIUM, [id number] 12:04:00 Test Item Value Reference Range Interpretation Comments CALCIUM IONIZED (BEAKER) (test 1.15 mmol/L 1.12-1.27 code = 698) PH, BLOOD (BEAKER) (test code = 7.44 1810) BLOOD GAS, [id number] 12:03:00 Test Item Value Reference Range Interpretation [...] code = 1819) 60.0 % OXYGEN SATURATION, [id number] 12:00:00 Test Item Value Reference Range Interpretation Comments O2 SATURATION (MEASURED) (BEAKER) 66.6 % (test code = 1455) For occult [id number] 11:53:00 Test Item Value Reference Range Interpretation Comments PHOSPHORUS (BEAKER) (test code = 2.9 mg/dL 2.3-4.7 604) CALCIUM, [id number] 10:32:00 Test Item Value Reference Range Interpretation Comments CALCIUM IONIZED (BEAKER) (test 1.03 mmol/L 1.12-1.27 L code = 698) PH, BLOOD (BEAKER) (test code = 7.33 1810) BLOOD GAS, [id number] 10:31:00 Test Item Value Reference Range Interpretation [...] code = 1819) 100.0 % SODIUM NA-STAT [id number] 10:31:00 Test Item Value Reference Range Interpretation Comments SODIUM (BEAKER) (test code = 381) 133 meq/L 135-148 L GLUCOSE-STAT [id number] 10:31:00 Test Item Value Reference Range Interpretation Comments GLUCOSE RANDOM (BEAKER) (test code 226 mg/dL 70-110 H = 652) HGB/HCT (H&H) - STAT [id number] 10:31:00 Test Item Value Reference Range Interpretation Comments HEMOGLOBIN (BEAKER) (test code = 8.0 g/dL 12.0-15.0 L 410) HEMATOCRIT (BEAKER) (test code = 24.0 % 36.0-45.0 L 411) POTASSIUM-STAT [id number] 10:30:00 Test Item Value Reference Range Interpretation Comments POTASSIUM (BEAKER) (test code = 4.2 meq/L 3.6-5.5 379) BLOOD GAS, [id number] 10:05:00 Test Item Value Reference Range Interpretation [...] code = 1819) 80.0 % SODIUM NA-STAT [id number] 10:05:00 Test Item Value Reference Range Interpretation Comments SODIUM (BEAKER) (test code = 381) 127 meq/L 135-148 L POTASSIUM-STAT [id number] 10:05:00 Test Item Value Reference Range Interpretation Comments POTASSIUM (BEAKER) (test code = 5.9 meq/L 3.6-5.5 H 379) GLUCOSE-STAT [id number] 10:05:00 Test Item Value Reference Range Interpretation Comments GLUCOSE RANDOM (BEAKER) (test code 241 mg/dL 70-110 H = 652) HGB/HCT (H&H) - STAT [id number] 10:05:00 Test Item Value Reference Range Interpretation Comments HEMOGLOBIN (BEAKER) (test code = 8.0 g/dL 12.0-15.0 L 410) HEMATOCRIT (BEAKER) (test code = 24.0 % 36.0-45.0 L 411) BLOOD GAS, [id number] 09:51:00 Test Item Value Reference Range Interpretation [...] code = 1819) 80.0 % SODIUM NA-STAT [id number] 09:51:00 Test Item Value Reference Range Interpretation Comments SODIUM (BEAKER) (test code = 381) 130 meq/L 135-148 L GLUCOSE-STAT [id number] 09:51:00 Test Item Value Reference Range Interpretation Comments GLUCOSE RANDOM (BEAKER) (test code 249 mg/dL 70-110 H = 652) HGB/HCT (H&H) - STAT [id number] 09:51:00 Test Item Value Reference Range Interpretation Comments HEMOGLOBIN (BEAKER) (test code = 8.1 g/dL 12.0-15.0 L 410) HEMATOCRIT (BEAKER) (test code = 24.0 % 36.0-45.0 L 411) POTASSIUM-STAT [id number] 09:50:00 Test Item Value Reference Range Interpretation Comments POTASSIUM (BEAKER) (test code = 5.4 meq/L 3.6-5.5 379) BLOOD GAS, [id number] 09:23:00 Test Item Value Reference Range Interpretation [...] code = 1819) 100.0 % SODIUM NA-STAT [id number] 09:23:00 Test Item Value Reference Range Interpretation Comments SODIUM (BEAKER) (test code = 381) 132 meq/L 135-148 L GLUCOSE-STAT [id number] 09:23:00 Test Item Value Reference Range Interpretation Comments GLUCOSE RANDOM (BEAKER) (test code 164 mg/dL 70-110 H = 652) CALCIUM, [id number] 09:23:00 Test Item Value Reference Range Interpretation Comments CALCIUM IONIZED (BEAKER) (test 1.05 mmol/L 1.12-1.27 L code = 698) PH, BLOOD (BEAKER) (test code = 7.44 1810) POTASSIUM-STAT [id number] 09:22:00 Test Item Value Reference Range Interpretation Comments POTASSIUM (BEAKER) (test code = 4.0 meq/L 3.6-5.5 379) HGB/HCT (H&H) - STAT [id number] 09:22:00 Test Item Value Reference Range Interpretation Comments HEMOGLOBIN (BEAKER) (test code = 12.2 g/dL 12.0-15.0 410) HEMATOCRIT (BEAKER) (test code = 36.0 % 36.0-45.0 411) RAD, CHEST, 1 VIEW, NON [id number] 07:12:00Reason for exam:->preopShould this be performed at the bedside?->YesFINAL REPORT INDICATION: preop COMPARISON: None TECHNIQUE: Single frontal view of the chest. FINDINGS: Lungs and pleura: Clear lungs. No effusion.Heart and mediastinum: Normal heart size. Unremarkable mediastinal contours.Osseous structures: No acute abnormality.Other: None. IMPRESSION: No acute intrathoracic abnormality. Signed: Deirdre De Jesus Verified Date/Time: 07/29/2019 07:12:45 [id number] 07:01:00 Test Item Value Reference Range Interpretation Comments PARTIAL THROMBOPLASTIN TIME 31.2 seconds 22.5-36.0 (BEAKER) (test code = 760) BASIC METABOLIC [id number] 05:57:00 Test Item Value Reference Range Interpretation [...] 1092) DATA TO CALCULA TE ESTIMATED GFR. [id number] 05:51:00 Test Item Value Reference Range Interpretation Comments MAGNESIUM (BEAKER) (test code = 1.9 mg/dL 1.6-2.6 627) [id number] 05:35:00 Test Item Value Reference Range Interpretation [...] 2.5-3.5 for patients wiht mechanical heart valves.PROTHROMBIN [id number] 05:34:00 Test Item Value Reference Range Interpretation [...] mechanical heart valves.CBC W/PLT COUNT & AUTO [id number] 05:24:00 Test Item Value Reference Range Interpretation [...]
[2023-07-19] MEDS ORDERED: HYDROCODONE/APAP 10/325 TAB ONE (12:13)
--- NOTE | 2023-07-19 12:22 | RAD REPORT ---
EXAM DESCRIPTION: RADChest Single View07/19/2023 12:02 pm CLINICAL HISTORY: SOB COMPARISON: Chest Single View dated 05/19/2023; Chest Single View dated 02/28/2023; Chest Single View d ated 07/07/2022; Chest Single View dated 06/27/2022 TECHNIQUE: Portable AP view of the chest. FINDINGS: The lungs are clear. No pneumothorax or effusion. The cardiomediastinal contours are unre markable. Sequelae of prior median sternotomy. Implantable rhythm monitoring device in place. IMPRESSION: No acute cardiopulmonary process.
--- NOTE | 2023-07-19 12:24 | RAD REPORT ---
EXAM DESCRIPTION: Ribs Right - 07/19/2023 12:02 pm CLINICAL HISTORY: Pain;Rib Pain - Right COMPARISON: Chest Single View dated 07/19/2023 TECHNIQUE: Right ribs, 3 views. FINDINGS: Mildly displaced lateral right eighth and ninth rib fractures. No aggressive rib lesion. No underlying pneumothorax, effusion, infiltrate or pulmonary contusion. IMPRESSION: Mildly displaced right eighth and ninth rib fractures.
--- NOTE | 2023-07-19 12:36 | ER ---
Nurse's Notes [facility] Name: Ivet Calderon Age: 72 yrs Sex: Female : 1950 Arrival Date: 07/19/2023 Time: 10:45 Bed 9 Private MD: Shant Lao Diagnosis: Multiple fractures of ribs, right side Presentation: 07/19 11:08 Chief complaint: Seen in ED 3 days ago for right rib fx s/p fall, reports worsening hb pain 07/23 today. Coronavirus screen: At this time, the client does not indicate any symptoms associated with coronavirus-19. Ebola Screen: No symptoms or risks identified at this time. Initial Sepsis Screen: Does the patient meet any 2 criteria? No. Patient's initial sepsis screen is negative. Does the patient have a suspected source of infection? No. Patient's initial sepsis screen is negative. Risk Assessment: Do you want to hurt yourself or someone else? Patient reports no desire to harm self or others. Onset of symptoms was July 16, 2023. 11:08 Method Of Arrival: Wheelchair hb 11:08 Acuity: DORYS 4 hb Historical: - Allergies: 11:12 Morphine; hb - Home Meds: 11:12 clopidogrel 75 mg Oral tablet daily [Active]; hb - PMHx: 11:12 CVA (Hypertension); diabetes mellitus; heart attack; Hypercholesterolemia; Hypertension;hb - PSHx: 11:12 Appendectomy; Cholecystectomy; open heart surgery; Stented artery; hb - Immunization history:: Adult Immunizations up to date. - Social history:: Smoking status: Patient denies any tobacco usage or history of. Screenin:43 [facility] ED Fall Risk Assessment (Adult) History of falling in the last 3 months, ap3 including since admission Yes- single mechanical fall (1 pt) Confusion or Disorientation No (0 pts) Intoxicated or Sedated No (0 pts) Impaired Gait Yes (1 pt) Mobility Assist Device Used No (0 pt) Altered Elimination No (0 pt). Abuse screen: Denies threats or abuse. Nutritional screening: No deficits noted. Tuberculosis screening: No symptoms or risk factors identified. Assessment: 12:42 General: Appears in no apparent distress. Behavior is calm, cooperative, appropriate ap3 for age. Pain: Complains of pain in chest Pain began 2-3 days ago. Neuro: Level of Consciousness is awake, alert, obeys commands, Oriented to person, place, time, situation. Cardiovascular: Patient's skin is warm and dry. Respiratory: Airway is patent Respiratory effort is even, unlabored, Respiratory pattern is regular, symmetrical. Vital Signs: 11:08 BP 98 / 74; Pulse 62; Resp 16; Temp 98.3; Pulse Ox 98% on R/A; Weight 74.84 kg; Height hb 5 ft. 1 in. ; Pain 10; 11:08 Body Mass Index 31.18 (74.84 kg, 154.94 cm) hb 11:08 Pain Scale: Adult hb ED Course: 10:48 Patient arrived in ED. rg4 10:48 Shant Lao DO is Private Physician. rg4 10:51 [facility] Turpin [facility]. jh7 10:51 Ty Walsh MD is Attending Physician. 7 11:10 Triage completed. hb 11:12 Arm band placed on. 11:55 Ml Coyne, JOSE is Primary Nurse. ap3 12:04 XRAY Ribs RIGHT In Process Unspecified. EDMS 12:04 XRAY Chest (1 view) In Process Unspecified. EDMS 12:35 Shant Lao DO is Referral Physician. jh7 12:43 No provider procedures requiring assistance completed. Patient did not have IV access ap3 during this emergency room visit. 12:44 Provided Education on: discharge instructions. ap3 12:44 Patient has correct armband on for positive identification. ap3 Administered Medications: 12:04 Drug: [place] PO 10 mg-325 mg 1 tabs PO once Route: PO; ap3 12:44 Follow up: Response: No adverse reaction; Pain is decreased ap3 Medication: 12:44 VIS not applicable for this client. ap3 Outcome: 12:35 Discharge ordered by . jh7 12:43 Discharged to home via wheelchair, with friend, ap3 12:43 Condition: good 12:43 Discharge instructions given to patient, Instructed on discharge instructions, follow up and referral plans. medication usage, Demonstrated understanding of instructions, follow-up care, medications, Prescriptions given X 2, 12:44 Patient left the ED. ap3 Signatures: Dispatcher [employer] EDMS Marisa Warren RN RN hb Garcia, Rubi rg4 Ml Coyne, RN RN ap3 Helena Turpin, AIRLINE RESERVATION AGENT AIRLINE RESERVATION AGENT jh7 Corrections: (The following items were deleted from the chart) 11: 11:08 Chief complaint: Seen in ED 3 days ago for right rib fx s/p fall, reports SOB and hb worsening pain 07/23 today hb 11: 11:08 Acuity: DORYS 3 hb hb
--- NOTE | 2023-07-19 12:36 | EDPHYS ---
Physician Documentation [facility] Name: Ivet Calderon Age: 72 yrs Sex: Female : 1950 Arrival Date: 07/19/2023 Time: 10:45 Bed 9 Private MD: Shilo [facility] ED Physician Ty Walsh HPI: 07/19 11:12 This 72 yrs old Female presents to ER via Wheelchair with complaints of R rib jh7 pain, Fracture. 11:12 Patient seen a few days ago for fractures of right ribs 8 and 9. She reports that she jh7 has not reinjured herself but is having trouble sleeping due to the pain. She states that the pain makes it difficult to breathe. She reports that she is unable to take NSAIDs.. Historical: - Allergies: 11:12 Morphine; hb - Home Meds: 11:12 clopidogrel 75 mg Oral tablet daily [Active]; hb - PMHx: 11:12 CVA (Hypertension); diabetes mellitus; heart attack; Hypercholesterolemia; Hypertension;hb - PSHx: 11:12 Appendectomy; Cholecystectomy; open heart surgery; Stented artery; hb - Immunization history:: Adult Immunizations up to date. - Social history:: Smoking status: Patient denies any tobacco usage or history of. ROS: 11:12 Constitutional: Negative for fever, chills, and weight loss, Eyes: Negative for injury, jh7 pain, redness, and discharge, Neck: Negative for injury, pain, and swelling, Cardiovascular: Negative for chest pain, palpitations, and edema, Abdomen/GI: Negative for abdominal pain, nausea, vomiting, diarrhea, and constipation, : Negative for injury, bleeding, discharge, and swelling, Skin: Negative for injury, rash, and discoloration, Neuro: Negative for headache, weakness, numbness, tingling, and seizure, 11:12 Respiratory: Positive for shortness of breath, Secondary to rib pain, 11:12 MS/extremity: Positive for of the R rib pain, 11:12 All other systems are negative, Exam: 11:12 Eyes: Pupils equal round and reactive to light, extra-ocular motions intact. Lids and jh7 lashes normal. Conjunctiva and sclera are non-icteric and not injected. Cornea within normal limits. Periorbital areas with no swelling, redness, or edema. Cardiovascular: Regular rate and rhythm with a normal S1 and S2. No gallops, murmurs, or rubs. Normal PMI, no JVD. No pulse deficits. Respiratory: Lungs have equal breath sounds bilaterally, clear to auscultation and percussion. No rales, rhonchi or wheezes noted. No increased work of breathing, no retractions or nasal flaring. Abdomen/GI: Soft, non-tender, with normal bowel sounds. No distension or tympany. No guarding or rebound. No evidence of tenderness throughout. Skin: Warm, dry with normal turgor. Normal color with no rashes, no lesions, and no evidence of cellulitis. MS/ Extremity: Pulses equal, no cyanosis. Neurovascular intact. Full, normal range of motion. Neuro: Awake and alert, GCS 15, oriented to person, place, time, and situation. Motor strength 5/5 in all extremities. Sensory grossly intact. Normal gait. 11:12 Constitutional: The patient appears alert, awake, in obvious pain, 11:12 Chest/axilla: Inspection: normal, Palpation: tenderness, that is moderate, of the right lateral anterior chest, that totally reproduces the patient's complaints, Bruising noted over right lateral ribs 8-9, Vital Signs: 11:08 BP 98 / 74; Pulse 62; Resp 16; Temp 98.3; Pulse Ox 98% on R/A; Weight 74.84 kg; Height hb 5 ft. 1 in. ; Pain 10/10; 11:08 Body Mass Index 31.18 (74.84 kg, 154.94 cm) hb 11:08 Pain Scale: Adult hb MDM: 10:51 Patient medically screened. [facility] 12:30 Differential diagnosis: fracture. Data reviewed: vital signs, nurses notes, radiologic [facility] studies, plain films. I considered the following discharge prescriptions or medication management in the emergency department Medications were administered in the Emergency Department. See MAR. Care significantly affected by the following chronic conditions: Diabetes, Hypertension. Counseling: I had a detailed discussion with the patient and/or guardian regarding the historical points, exam findings, and any diagnostic results supporting the discharge/admit diagnosis, to return to the emergency department if symptoms worsen or persist or if there are any questions or concerns that arise at home. Response to treatment: the patient's symptoms have markedly improved after treatment. ED course: Inform the patient that there are no changes noted on imaging and that additional pain medicine will be given. Advised her to splint the affected ribs while sleeping, participate in deep breathing, and to alternate heat and ice over the affected ribs.. 07/19 11:15 Order name: XRAY Ribs RIGHT; Complete Time: 12:26 [facility] 07/19 11:15 Order name: XRAY Chest (1 view); Complete Time: 12:26 7 Administered Medications: 12:04 Drug: [place] PO 10 mg-325 mg 1 tabs PO once Route: PO; ap3 12:44 Follow up: Response: No adverse reaction; Pain is decreased ap3 Disposition: 18:53 Co-signature as Attending Physician, Ty Walsh MD I reviewed the patient's care rn provided by the Advanced Practice Provider and agree with the diagnosis and treatment plan. Disposition Summary: 07/19/23 12:35 Discharge Ordered Notes: Location: Home [facility] Problem: new [facility] Symptoms: have improved [facility] Condition: Stable [facility] Diagnosis - Multiple fractures of ribs, right side [facility] Followup: [facility] - With: Shant Lao, DO - When: 2 - 3 days - Reason: Recheck today's complaints Discharge Instructions: - Discharge Summary Sheet [facility] - Rib Fracture [facility] Forms: - Medication Reconciliation Form [facility] - Thank You Letter [facility] - Prescription Opioid Use [facility] - Patient Portal Instructions [facility] - Leadership Thank You Letter [facility] Prescriptions: - Zanaflex 4 mg Oral Tablet - take 1 tablet ORAL route every 8 hours As needed; 20 tablet; Refills: 0, [facility] Product Selection Permitted - Tramadol 50 mg Oral tablet - take 1 tablet ORAL route every 8 hours As needed as needed; 8 tablet; Refills: [facility] 0, Product Selection Permitted Signatures: Dispatcher [employer] Ty Wagner MD MD rn Baxter, Heather, RN RN hb Prokisch, Amanda, RN RN ap3 Hadash, Jennifer, FNP [employer] DECKH[employer] [facility]
[2023-07-19 12:49] VITALS: BP 98/74; TEMP 98.3; O2SAT 98
== END 2023-07-19 12:44 | disposition home or self-care (01) ==
LOC: ER 10:45
DX: S22.41XA Multiple fractures of ribs, right side, initial encounter for closed fracture (principal); Z88.5 Allergy status to narcotic agent
CPT/HCPCS: 71045; 99283

== ENCOUNTER → 2024-01-03 | Emergency (ER) | payer OTHER ==
[~2024-01-03] MED LIST: ACETAMINOPHEN 500 MG TAB ONE; ASPIRIN 81 MG CHEWABLE TABLET ONE; DIPHENHYDRAMINE 50 MG/ML VIAL ONE; ENOXAPARIN 80 MG/0.8 ML SQ ONE; METOCLOPRAMIDE 10 MG/2mL INJ ONE; Magnesium Sulfate 2gm IVPB 2 G/50 ML BAG IV ONE
[2024-01-04 00:03] LABS: Absolute Basophils 0.1 K/uL (0-0.5); Absolute Eosinophils 0.3 K/uL (0-0.5); Absolute Lymphocytes (CBC) 3.8 K/uL (0.7-4.9); Absolute Neutrophil 5.5 K/uL (1.8-8.0); Basophils % 0.7 % (0-1.3); Eosinophils % 3.1 % (0-4.4); Hematocrit 39.1 % (36.0-45.0); Hemoglobin 13.1 g/dL (12.0-15.0); Lymphocytes % 35.4 % (15.3-44.8); MCH 33.8 pg (27.0-35.0); MCHC 33.4 g/dL (32.0-36.0); MCV 101.3 fL (80-100); MPV 8.6 fL (7.6-11.3); Monocytes % 9.3 % (3.3-12.3); Neutrophils % 51.5 % (41.7-73.7); Platelets 276 thou/uL (152-406); RBC Red Blood Cell Count 3.87 M/uL (3.86-4.86); Red Cell Distribution Width 14.2 % (12.1-15.2)
[2024-01-04 00:22] LABS: Albumin 3.2 g/dL (3.4-5.0); Albumin/Globulin Ratio 0.7 (1.1-1.8); Anion Gap 10.4 mEq/L (5.0-15.0); Bilirubin Direct 0.1 mg/dL (0-0.2); Bilirubin Indirect, Calculated 0.4 mg/dL (0.2-0.8); Bilirubin Total 0.5 mg/dL (0.2-1.0); Globulin 4.9 g/dL (2.3-3.5); Magnesium 2.1 mg/dL (1.6-2.4); Potassium 4.4 mEq/L (3.5-5.1); Protein, Total 8.1 g/dL (6.4-8.2)
[2024-01-04 00:31] LABS: Troponin High Sensitivity 883.8 pg/mL (<58.9)
--- NOTE | 2024-01-04 01:51 | ER ---
Nurse's Notes [facility] Name: Ivet Calderon Age: 73 yrs Sex: Female : 1950 Arrival Date: 01/03/2024 Time: 23:19 Bed 4 Private MD: Shant Lao Diagnosis: Headache;NSTEMI Presentation: 01/02 23:33 Chief complaint: Patient states: Slip and fell yesterday in the rain and has bilateral cm10 shoulder pain. Pt also reports headache X1 week. Coronavirus screen: Client denies travel out of the [place] in the last 14 days. At this time, the client does not indicate any symptoms associated with coronavirus-19. Ebola Screen: Patient denies travel to an Ebola-affected area in the 21 days before illness onset. No symptoms or risks identified at this time. Initial Sepsis Screen: Does the patient meet any 2 criteria? No. Patient's initial sepsis screen is negative. Does the patient have a suspected source of infection? No. Patient's initial sepsis screen is negative. Risk Assessment: Do you want to hurt yourself or someone else? Patient reports no desire to harm self or others. Onset of symptoms was January 03, 2024. 23:33 Method Of Arrival: Ambulatory cm10 23:33 Acuity: DORYS 3 cm10 Historical: - Allergies: 23:34 Morphine; cm10 - PMHx: 23:34 CVA (Hypertension); diabetes mellitus; heart attack; Hypercholesterolemia; Hypertension;cm10 - PSHx: 23:34 Appendectomy; Cholecystectomy; open heart surgery; Stented artery; cm10 - Immunization history:: Adult Immunizations up to date. - Social history:: Smoking status: unknown. - Family history:: not pertinent. Screenin:40 [facility] ED Fall Risk Assessment (Adult) History of falling in the last 3 months, tm6 including since admission Yes- fall prone (multiple falls) (3 pts) Confusion or Disorientation No (0 pts) Intoxicated or Sedated No (0 pts) Impaired Gait Yes (1 pt) Mobility Assist Device Used Yes (1 pt) Altered Elimination No (0 pt) Score/Fall Risk Level 3 or more points = High Risk Oriented to surroundings, Maintained a safe environment, Educated pt \T\ family on fall prevention, incl call for assistance when getting out of bed. Abuse screen: Denies threats or abuse. Denies injuries from another. Nutritional screening: No deficits noted. Tuberculosis screening: No symptoms or risk factors identified. Assessment: 23:44 General: Appears uncomfortable, Behavior is cooperative, anxious, crying. Pain: km8 Complains of pain in right uatsdin and right shoulder and left shoulder Pain currently is 10 out of 10 on a pain scale. Neuro: Level of Consciousness is awake, alert, obeys commands, Oriented to person, place, time, situation, Reports headache frontal area. Cardiovascular: Denies chest pain, shortness of breath, Patient's skin is warm and dry. Respiratory: Airway is patent Respiratory effort is even, unlabored, Respiratory pattern is regular, symmetrical. GI: No signs and/or symptoms were reported involving the gastrointestinal system. : No signs and/or symptoms were reported regarding the genitourinary system. EENT: No signs and/or symptoms were reported regarding the EENT system. Derm: No signs and/or symptoms reported regarding the dermatologic system. Skin is intact, is healthy with good turgor, Skin is dry, Skin is pink, warm \T\ dry. normal, Skin temperature is warm. Musculoskeletal: Range of motion: intact in all extremities, Reports pain in right shoulder and left shoulder. 01/03 00:45 Reassessment: Patient appears in no apparent distress at this time. Patient and/or km8 family updated on plan of care and expected duration. Pain level reassessed. Patient is alert, oriented x 3, equal unlabored respirations, skin warm/dry/pink. Patient states symptoms have improved. 01:15 Reassessment: Patient appears in no apparent distress at this time. No changes from 8 previously documented assessment. Patient and/or family updated on plan of care and expected duration. Pain level reassessed. Patient is alert, oriented x 3, equal unlabored respirations, skin warm/dry/pink. Patient states feeling better. 02:15 Reassessment: Patient appears in no apparent distress at this time. No changes from 8 previously documented assessment. Patient and/or family updated on plan of care and expected duration. Pain level reassessed. Patient is alert, oriented x 3, equal unlabored respirations, skin warm/dry/pink. 02:46 Reassessment: report called to Luis GARCIA at [facility] [address] tm6 Vital Signs: 01/02 23:33 BP 218 / 76; Pulse 86; Resp 16; Temp 97.9; Pulse Ox 96% ; Pain 8/10; cm10 23:39 BP 165 / 117; Pulse 97; Resp 19; Pulse Ox 97% on R/A; tm6 01/03 00:00 BP 180 / 65; Pulse 77; Resp 16; Pulse Ox 97% on R/A; km8 00:30 BP 169 / 62; Pulse 72; Resp 16; Pulse Ox 94% on R/A; km8 01:00 BP 158 / 63; Pulse 69; Resp 20; Pulse Ox 95% on R/A; km8 01:42 Weight 79.83 kg; tm6 02:00 BP 166 / 57; Pulse 66; Resp 16; Pulse Ox 96% on R/A; km8 01/02 23:33 Pain Scale: Adult cm10 Jason Coma Score: 01/02 23:44 Eye Response: spontaneous(4). Motor Response: obeys commands(6). Verbal Response: km8 oriented(5). Total: 15. ED Course: 23:22 Patient arrived in ED. mr 23:22 Shant Lao DO is Private Physician. mr 23:23 Medardo Lu MD is Attending Physician. rt 23:33 Roberto Berger, JOSE is Primary Nurse. tm6 23:34 Triage completed. cm10 23:34 Arm band placed on Patient placed in an exam room, on a stretcher, on pulse oximetry. cm10 23:40 Patient has correct armband on for positive identification. Placed in gown. Bed in low tm6 position. Call light in reach. Side rails up X2. Provided Education on: plan of care. Client placed on continuous cardiac and pulse oximetry monitoring. NIBP monitoring applied. lawnmower mechanic on. Pulse ox on. NIBP on. Noise minimized. Warm blanket given. 23:43 Basic Metabolic Panel Sent. tm6 23:43 CBC with Diff Sent. tm6 23:43 LFT's Sent. tm6 23:43 Magnesium Sent. tm6 23:43 NT PRO-BNP Sent. tm6 23:43 Troponin HS Sent. tm6 23:44 Inserted saline lock: 20 gauge in right antecubital area, using aseptic technique. km8 Blood collected. 23:44 Initial lab(s) drawn, by me, sent to lab. EKG done, by ED staff, reviewed by Medardo Lu MD. 23:59 CT Head Brain wo Cont In Process Unspecified. EDMS 03 00:30 Shoulder Left (2 View) XRAY In Process Unspecified. EDMS 00:30 Shoulder Right (2 View) XRAY In Process Unspecified. EDMS 00:31 Notified ED physician of a critical lab result(s). Troponin 883.3. cm10 01:36 Initiated transfer with [place] at [facility]. rv1 02:[address] Jimenez [address] [facility] rm [id number]. rv1 02:34 Troponin High Sensitivity Sent. km8 03:37 No provider procedures requiring assistance completed. Patient transferred, IV remains km8 in place. Administered Medications: 01/02 23:54 Drug: metoCLOPramide IVP 10 mg IVP once; over 1 to 2 minutes Route: IVP; Site: right tm6 antecubital; 01/03 00:46 Follow up: Response: No adverse reaction; Pain is decreased [facility] 01/02 23:54 Drug: diphenhydrAMINE IVP 25 mg IVP once Route: IVP; Site: right antecubital; tm6 01/03 00:46 Follow up: Response: No adverse reaction; Pain is decreased 8 01/02 23:54 Drug: Acetaminophen PO 1000 mg PO once Route: PO; tm6 01/03 00:46 Follow up: Response: No adverse reaction; Pain is decreased km8 00:05 Drug: Magnesium Sulfate IVPB 2 grams IVPB once over 1 hrs Route: IVPB; Infused Over: 1 tm6 hrs; Site: right antecubital; 01:03 Follow up: IV Status: Completed infusion; IV Intake: 100ml km8 01:47 Drug: Enoxaparin Sub-Q 1 mg/kg Sub-Q once Route: Sub-Q; Site: abdomen; tm6 02:28 Follow up: Response: No adverse reaction km8 02:34 Drug: Aspirin PO Chewable Tablet 324 mg PO once; 81 mg tablets x 4 Route: PO; km8 03:37 Follow up: Response: No adverse reaction km8 Medication: 01/02 23:40 VIS not applicable for this client. tm6 Intake: 01/03 01:03 IV: 100ml; Total: 100ml. km8 Outcome: 01:50 ER care complete, transfer ordered by . rt 03:37 Transferred by ground EMS to [facility], Transfer form completed. km8 03:37 Condition: stable 03:37 Instructed on the need for transfer, Demonstrated understanding of instructions, 03:38 Patient left the ED. km8 Signatures: Dispatcher [employer] EDMS Kathy Woodard, Reg Reg mr Medardo Lu MD MD rt Cheryl Phan rv1 Subha Matthew, RN RN cm10 Edith Brody, RN RN km8 Roberto Berger, RN RN tm6
--- NOTE | 2024-01-04 01:51 | EDPHYS ---
Physician Documentation [facility] Name: Ivet Calderon Age: 73 yrs Sex: Female : 1950 Arrival Date: 01/03/2024 Time: 23:19 Bed 4 Private MD: Shilo [facility] ED Physician Medardo Lu HPI: 01/02 23:58 This 73 yrs old Female presents to ER via Ambulatory with complaints of Fall rt Injury. 23:58 Patient presents to the ED with right-sided headache for about 1 week. Has been rt progressively worsening. She denies other symptoms associated with the headache. The patient states that she had a slip and fall today, denies syncopal events. Reports bilateral shoulder pain following up denies any other injuries. Denies other acute complaints at this time, symptoms are moderate in severity, aching nature, nonradiating, no other aggravating or alleviating factors.. Historical: - Allergies: 23:34 Morphine; cm10 - PMHx: 23:34 CVA (Hypertension); diabetes mellitus; heart attack; Hypercholesterolemia; Hypertension;cm10 - PSHx: 23:34 Appendectomy; Cholecystectomy; open heart surgery; Stented artery; cm10 - Immunization history:: Adult Immunizations up to date. - Social history:: Smoking status: unknown. - Family history:: not pertinent. ROS: 23:58 Constitutional: Negative for fever, chills, and weight loss, Cardiovascular: Negative rt for chest pain, palpitations, and edema, Respiratory: Negative for shortness of breath, cough, wheezing, and pleuritic chest pain, Abdomen/GI: Negative for abdominal pain, nausea, vomiting, diarrhea, and constipation, Skin: Negative for injury, rash, and discoloration, Psych: Negative for depression, anxiety, suicide ideation, homicidal ideation, and hallucinations, 23:58 MS/extremity: Positive for pain, Negative for deformity, 23:58 Neuro: Positive for headache, Negative for syncope, near syncope, Exam: 23:58 Constitutional: This is a well developed, well nourished patient who is awake, alert, rt and in no acute distress. Head/Face: Normocephalic, atraumatic. Chest/axilla: Normal chest wall appearance and motion. Nontender with no deformity. No lesions are appreciated. Cardiovascular: Regular rate and rhythm with a normal S1 and S2. No gallops, murmurs, or rubs. Normal PMI, no JVD. No pulse deficits. Respiratory: Lungs have equal breath sounds bilaterally, clear to auscultation and percussion. No rales, rhonchi or wheezes noted. No increased work of breathing, no retractions or nasal flaring. Abdomen/GI: Soft, non-tender, with normal bowel sounds. No distension or tympany. No guarding or rebound. No evidence of tenderness throughout. Skin: Warm, dry with normal turgor. Normal color with no rashes, no lesions, and no evidence of cellulitis. Neuro: Awake and alert, GCS 15, oriented to person, place, time, and situation. Cranial nerves II-XII grossly intact. Motor strength 5/5 in all extremities. Sensory grossly intact. Cerebellar exam normal. Normal gait. Psych: Awake, alert, with orientation to person, place and time. Behavior, mood, and affect are within normal limits. 23:58 ECG was reviewed by the Attending Physician. 23:58 Musculoskeletal/extremity: Mild tenderness to the bilateral shoulders without deformities, pulses, motor, sensation intact. Vital Signs: 23:33 BP 218 / 76; Pulse 86; Resp 16; Temp 97.9; Pulse Ox 96% ; Pain 8/10; cm10 23:39 BP 165 / 117; Pulse 97; Resp 19; Pulse Ox 97% on R/A; tm6 01/03 00:00 BP 180 / 65; Pulse 77; Resp 16; Pulse Ox 97% on R/A; km8 00:30 BP 169 / 62; Pulse 72; Resp 16; Pulse Ox 94% on R/A; km8 01:00 BP 158 / 63; Pulse 69; Resp 20; Pulse Ox 95% on R/A; km8 01:42 Weight 79.83 kg; tm6 02:00 BP 166 / 57; Pulse 66; Resp 16; Pulse Ox 96% on R/A; km8 01/02 23:33 Pain Scale: Adult cm10 [place] Coma Score: 01/02 23:44 Eye Response: spontaneous(4). Motor Response: obeys commands(6). Verbal Response: km8 oriented(5). Total: 15. MDM: 23:33 Patient medically screened. rt 01/03 03:13 Differential diagnosis: Intracranial hemorrhage, NSTEMI, hypertensive emergency. Data rt reviewed: vital signs, nurses notes. Consideration of Admission/Observation Escalation of care including admission/observation considered. Patient requires transfer due to lack of Running Specialist capability at this time.. Management of patient was discussed with the following: Hospitalist: Discussed with accepting hospitalist.. I considered the following discharge prescriptions or medication management in the emergency department Medications were administered in the Emergency Department. See MAR. Independent interpretation of the following test(s) in the Emergency Department CT Scan: My interpretation is No intracranial hemorrhage seen on interpretation of CT scan images. Test considered but Not performed: CT: Low suspicion for pulmonary embolism, CT angiogram not indicated. Care significantly affected by the following chronic conditions: Diabetes, Hypertension. Counseling: I had a detailed discussion with the patient and/or guardian regarding the historical points, exam findings, and any diagnostic results supporting the discharge/admit diagnosis, lab results, radiology results, the need to transfer to another facility. Response to treatment: the patient's symptoms have markedly improved after treatment. 01/02 23:39 Order name: Basic Metabolic Panel; Complete Time: 00:32 rt 01/02 23:39 Order name: CBC with Diff; Complete Time: 00:31 rt 01/02 23:39 Order name: LFT's; Complete Time: 00:32 rt 01/02 23:39 Order name: Magnesium; Complete Time: 00:32 rt 01/02 23:39 Order name: NT PRO-BNP; Complete Time: 00:32 rt 01/02 23:39 Order name: Troponin HS; Complete Time: 00:32 rt 01/03 02:14 Order name: Troponin High Sensitivity; Complete Time: 03:15 rt 01/02 23:39 Order name: CT Head Brain wo Cont rt 01/02 23:39 Order name: Shoulder Left (2 View) XRAY rt 01/02 23:39 Order name: Shoulder Right (2 View) XRAY rt 01/02 23:39 Order name: EKG; Complete Time: 23:40 rt 01/02 23:39 Order name: Cardiac monitoring; Complete Time: 23:41 rt 01/02 23:39 Order name: EKG - Nurse/Tech; Complete Time: 23:46 rt 01/02 23:39 Order name: IV Saline Lock; Complete Time: 23:43 rt 01/02 23:39 Order name: Labs collected and sent; Complete Time: 23:43 rt 01/02 23:39 Order name: O2 Per Protocol; Complete Time: 23:43 rt 01/02 23:39 Order name: O2 Sat Monitoring; Complete Time: 23:43 rt EC/22 23:58 Rate is 75 beats/min. Rhythm is regular, Normal Sinus Rhythm with No ectopy. QRS [place] rt is Normal. QRS interval is normal. QT interval is normal. No Q waves. No ST changes noted. Interpreted by me. Administered Medications: 23:54 Drug: metoCLOPramide IVP 10 mg IVP once; over 1 to 2 minutes Route: IVP; Site: right tm6 antecubital; 01/03 00:46 Follow up: Response: No adverse reaction; Pain is decreased km8 01/02 23:54 Drug: diphenhydrAMINE IVP 25 mg IVP once Route: IVP; Site: right antecubital; tm6 01/03 00:46 Follow up: Response: No adverse reaction; Pain is decreased km8 01/02 23:54 Drug: Acetaminophen PO 1000 mg PO once Route: PO; tm6 01/03 00:46 Follow up: Response: No adverse reaction; Pain is decreased km8 00:05 Drug: Magnesium Sulfate IVPB 2 grams IVPB once over 1 hrs Route: IVPB; Infused Over: 1 tm6 hrs; Site: right antecubital; 01:03 Follow up: IV Status: Completed infusion; IV Intake: 100ml km8 01:47 Drug: Enoxaparin Sub-Q 1 mg/kg Sub-Q once Route: Sub-Q; Site: abdomen; tm6 02:28 Follow up: Response: No adverse reaction km8 02:34 Drug: Aspirin PO Chewable Tablet 324 mg PO once; 81 mg tablets x 4 Route: PO; km8 03:37 Follow up: Response: No adverse reaction km8 Disposition Summary: 01/04/24 01:50 Transfer Ordered Notes: Transfer Location: [facility] rt Reason: Higher level of care rt Condition: Stable rt Problem: new rt Symptoms: have improved rt Accepting Physician: (01/04/24 03:38) km8 Diagnosis - Headache rt - NSTEMI rt Forms: - Medication Reconciliation Form rt - SBAR form rt Signatures: Dispatcher [employer] EDMedardo Gomez MD MD rt Subha Matthew, RN RN cm10 Edith Brody, RN RN km8 Roberto Berger RN RN tm6 Corrections: (The following items were deleted from the chart) 03:38 01:50 Dr. dodson km8
[2024-01-04 03:52] VITALS: BP 166/57; TEMP 97.9; O2SAT 96
--- NOTE | 2024-01-04 20:42 | RAD REPORT ---
EXAM DESCRIPTION: RAD - Shoulder Right 2 View - 01/04/2024 12:28 am CLINICAL HISTORY: Pain COMPARISON: None. TECHNIQUE: Right Shoulder 2 Views FINDINGS: No fracture or dislocation. No significant sclerotic/lytic bone lesion. Moderate diffuse osteopenia. Cervicothoracic spine degenerative disease. Mild right acromioclavicular joint space narrowing with small osteophyte formation. Soft tissues unremarkable. Sternotomy. IMPRESSION: 1. Mild right acromioclavicular DJD. 2. Moderate diffuse osteopenia. Electronically signed by: Jarek Vazquez MD 01/04/2024 01:03 AM CDT Due to temporary technical issues with the PACS/Fluency reporting system, reports are being signed by the in house radiologists without review as a courtesy to insure prompt reporting. The interpreting radiologist is fully responsible for the content of the report.
--- NOTE | 2024-01-04 20:43 | RAD REPORT ---
EXAM DESCRIPTION: RAD - Shoulder Left 2 View - 01/04/2024 12:28 am CLINICAL HISTORY: Pain COMPARISON: None. TECHNIQUE: Left Shoulder 2 Views FINDINGS: No fracture or dislocation. No significant sclerotic/lytic bone lesion. Moderate diffuse osteopenia. Mild left acromioclavicular joint space narrowing. Marked aortic arch calcification. Sternotomy. Linear metallic density overlying inferior left chest. No prior chest radiograph images available. Th is may represent cardiac loop recorder device versus left atrial appendage occlusion device. IMPRESSION: 1. Mild left acromioclavicular joint space narrowing. 2. Moderate diffuse osteopenia. Electronically signed by: Jarek Vazquez MD 01/04/2024 01:00 AM CDT Due to temporary technical issues with the PACS/Fluency reporting system, reports are being signed by the in house radiologists without review as a courtesy to insure prompt reporting. The interpreting radiologist is fully responsible for the content of the report.
--- NOTE | 2024-01-04 20:46 | RAD REPORT ---
EXAM DESCRIPTION: CT - Head Brain Wo Cont - 01/04/2024 6:18 am CLINICAL HISTORY: HEADACHE COMPARISON: 02/28/2023 TECHNIQUE: Axial CT of the head obtained from the skull apex to the skull base without contrast. Thi s exam was performed according to our departmental dose-optimization program, which includes automate d exposure control, adjustment of the mA and/or kV according to patient size and/or use of iterative reconstruction technique. FINDINGS: No acute intracranial hemorrhage identified. No mass, mass effect, shift of the midline, a bnormal extra-axial fluid collection or CT evidence of acute ischemic change identified. The ventricu lar system and sulcal spaces are mildly enlarged compatible with mild cerebral atrophy. Scattered a reas of hypodensity throughout the supratentorial white matter are nonspecific and may be related to chronic small vessel ischemic change. Left parietal encephalomalacia compatible for remote infarction . The visualized paranasal sinuses and the mastoids are clear. No skull fracture identified. Visualiz ed orbits and globes are unremarkable. Atherosclerotic calcification of the intracranial internal car otid arteries. IMPRESSION: 1. No acute intracranial abnormality by CT criteria. Electronically signed by: Jasmeet Glover DO 01/04/2024 12:22 AM CDT M Due to temporary technical issues with the PACS/Fluency reporting system, reports are being signed by the in house radiologists without review as a courtesy to insure prompt reporting. The interpreting radiologist is fully responsible for the content of the report.
--- NOTE | 2024-01-06 14:22 | EKG ---
Test Date: 2024-01-03 Test Time: 22:42:48 Rn Icu: DUTCH MEASUREMENT RESULTS: Intervals: Rate: 75 IA: 154 QRSD: 76 QT: 390 QTc: 435 [place]: P: 40 IA: 154 QRS: 71 T: 77 INTERPRETIVE STATEMENTS: Normal sinus rhythm Normal ECG Compared to ECG 05/19/2023 20:43:23 Myocardial infarct finding no longer present Electronically Signed On 01-06-24 14:15:31 CDT by Arnaldo Tan
== END ==
LOC: ER 23:19
DX: I21.4 Non-ST elevation (NSTEMI) myocardial infarction (principal); I10 Essential (primary) hypertension; E11.9 Type 2 diabetes mellitus without complications; Z86.73 Personal history of transient ischemic attack (TIA), and cerebral infarction without residual deficits; Z88.5 Allergy status to narcotic agent
CPT/HCPCS: 85025; 80048; 36415; 83735; 80076; 84484; 83880; 70450; 73030 ×2; J3475; J2765; J1200; 93005; 96365; 96372; 96375; 99285

== ENCOUNTER 2024-02-14 12:12 | Emergency (ER) | payer OTHER ==
--- NOTE | 2024-02-14 13:41 | EDPHYS ---
Physician Documentation [facility] Name: Ivet Calderon Age: 73 yrs Sex: Female : 1950 Arrival Date: 02/14/2024 Time: 12:12 Bed 14 Private MD: Shilo [facility] ED Physician Abbe Lao HPI: 02/13 13:37 This 73 yrs old Female presents to ER via Ambulatory with complaints of Low sp3 Back Pain. 13:37 73-year-old female with history of diabetes, hyperlipidemia, hypertension, CVA now sp3 presents to the ED with chief complaints right-sided flank pain. Patient states that she was recently in [facility] for congestive heart failure and was discharged home. Patient does have chronic low back pain as well. She denies any new or different pain, syncope, near syncope, chest pain, shortness of breath, headache, fever, or any other signs or symptoms on ROS at this time.. Historical: - Allergies: 12:41 Morphine; aa5 - PMHx: 12:41 CVA (Unknown); diabetes mellitus; heart attack; Hypercholesterolemia; Hypertension; aa5 - PSHx: 12:41 Appendectomy; Cholecystectomy; open heart surgery; Stented artery; aa5 - Immunization history:: Adult Immunizations unknown. - Infectious Disease History:: Denies. - Social history:: Smoking status: Patient denies any tobacco usage or history of. ROS: 13:37 Constitutional: Negative for fever, chills, and weight loss, Eyes: Negative for injury, sp3 pain, redness, and discharge, ENT: Negative for injury, pain, and discharge, Neck: Negative for injury, pain, and swelling, Cardiovascular: Negative for chest pain, palpitations, and edema, Respiratory: Negative for shortness of breath, cough, wheezing, and pleuritic chest pain, Abdomen/GI: Negative for abdominal pain, nausea, vomiting, diarrhea, and constipation, MS/Extremity: Negative for injury and deformity, Skin: Negative for injury, rash, and discoloration, Neuro: Negative for headache, weakness, numbness, tingling, and seizure, Psych: Negative for depression, anxiety, suicide ideation, homicidal ideation, and hallucinations, Allergy/Immunology: Negative for hives, rash, and allergies, Endocrine: Negative for neck swelling, polydipsia, polyuria, polyphagia, and marked weight changes, 13:37 All other systems are negative, Exam: 13:38 Constitutional: This is a well developed, well nourished patient who is awake, alert, sp3 and in no acute distress. Head/Face: Normocephalic, atraumatic. Eyes: Pupils equal round and reactive to light, extra-ocular motions intact. Lids and lashes normal. Conjunctiva and sclera are non-icteric and not injected. Cornea within normal limits. Periorbital areas with no swelling, redness, or edema. Neck: Trachea midline, no thyromegaly or masses palpated, and no cervical lymphadenopathy. Supple, full range of motion without nuchal rigidity, or vertebral point tenderness. No Meningismus. Chest/axilla: Normal chest wall appearance and motion. Nontender with no deformity. No lesions are appreciated. Cardiovascular: Regular rate and rhythm with a normal S1 and S2. No gallops, murmurs, or rubs. Normal PMI, no JVD. No pulse deficits. Respiratory: Lungs have equal breath sounds bilaterally, clear to auscultation and percussion. No rales, rhonchi or wheezes noted. No increased work of breathing, no retractions or nasal flaring. Abdomen/GI: Soft, non-tender, with normal bowel sounds. No distension or tympany. No guarding or rebound. No evidence of tenderness throughout. Skin: Warm, dry with normal turgor. Normal color with no rashes, no lesions, and no evidence of cellulitis. MS/ Extremity: Pulses equal, no cyanosis. Neurovascular intact. Full, normal range of motion. Neuro: Awake and alert, GCS 15, oriented to person, place, time, and situation. Cranial nerves II-XII grossly intact. Motor strength 5/5 in all extremities. Sensory grossly intact. Cerebellar exam normal. Normal gait. Psych: Awake, alert, with orientation to person, place and time. Behavior, mood, and affect are within normal limits. 13:38 Back: Patient has pain to palpation on the right flank/lower back on musculature., Vital Signs: 12:24 BP 196 / 84; Pulse 93; Resp 16 S; Temp 97.8(TE); Pulse Ox 97% on R/A; Weight 78.47 kg aa5 (R); Height 5 ft. 11 in. (R); 13:26 BP 176 / 75; Pulse 88; Resp 20; Pulse Ox 98% on R/A; Pain 10/10; tl4 12:24 Body Mass Index 24.13 (78.47 kg, 180.34 cm) aa5 13:26 Pain Scale: Adult tl4 MDM: 12:58 Patient medically screened. sp3 13:38 Data reviewed: vital signs, nurses notes, old medical records, lab test result(s), EKG, sp3 radiologic studies. ED course: 73-year-old female with PMH above now with low back/right flank pain. Differential diagnosis includes musculoskeletal pain, pathology including UTI/pyelonephritis spectrum, kidney stone, and to a lesser degree GI pathology and/or vascular pathology including AAA. No history of AAA in this patient. Workup will include laboratory values, UA, CT scan of the abdomen pelvis and pain and nausea control. Patient is allergic to morphine.. 13:39 ED course: Patient now for unknown reason wants to leave immediately. She is stating sp3 that she is not getting her medication however we have offered to give an alternate. She does not want to stay for any of her blood work or scan and wants to leave immediately.. 02/13 13:00 Order name: EKG; Complete Time: 13:01 sp3 02/13 13:00 Order name: IV Saline Lock sp3 02/13 13:00 Order name: Labs collected and sent sp3 02/13 13:00 Order name: EKG - Nurse/Tech sp3 Administered Medications: No medications were administered Disposition Summary: 02/14/24 13:40 Left Against Medical Advice Notes: Location: Home sp3 Problem: an acute exacerbation sp3 Symptoms: are unchanged sp3 Condition: Fair sp3 Diagnosis - Low back pain, muscle pain sp3 Followup: sp3 - With: Private Physician - When: Upon discharge from the Emergency Department - Reason: Recheck today's complaints Signatures: Dispatcher [employer] Peggy Urbina RN RN aa5 Abbe Lao MD MD sp3
--- NOTE | 2024-02-14 13:41 | ER ---
Nurse's Notes [facility] Name: Ivet Calderon Age: 73 yrs Sex: Female : 1950 Arrival Date: 02/14/2024 Time: 12:12 Bed 14 Private MD: Shant Lao Diagnosis: Low back pain, muscle pain Presentation: 02/13 12:24 Chief complaint: Patient states: right mid-low back pain, pt states "I was just aa5 released from [facility] with oxygen for fluid in the lungs but the pain is getting worse". 12:24 Coronavirus screen: At this time, the client does not indicate any symptoms associated aa5 with coronavirus-19. Ebola Screen: Patient denies travel to an Ebola-affected area in the 21 days before illness onset. Initial Sepsis Screen: Does the patient meet any 2 criteria? No. Patient's initial sepsis screen is negative. Does the patient have a suspected source of infection? No. Patient's initial sepsis screen is negative. Risk Assessment: Do you want to hurt yourself or someone else? Patient reports no desire to harm self or others. Onset of symptoms was 2023. 12:24 Acuity: DORYS 3 aa5 12:24 Method Of Arrival: Ambulatory aa5 Historical: - Allergies: 12:41 Morphine; aa5 - PMHx: 12:41 CVA (Unknown); diabetes mellitus; heart attack; Hypercholesterolemia; Hypertension; aa5 - PSHx: 12:41 Appendectomy; Cholecystectomy; open heart surgery; Stented artery; aa5 - Immunization history:: Adult Immunizations unknown. - Infectious Disease History:: Denies. - Social history:: Smoking status: Patient denies any tobacco usage or history of. Screenin:[address] [facility] ED Fall Risk Assessment (Adult) History of falling in the last 3 months, tl4 including since admission No falls in past 3 months (0 pts) Confusion or Disorientation No (0 pts) Intoxicated or Sedated No (0 pts) Impaired Gait No (0 pts) Mobility Assist Device Used No (0 pt) Altered Elimination No (0 pt) Score/Fall Risk Level 0 - 2 = Low Risk Oriented to surroundings, Maintained a safe environment, Educated pt \\T\\ family on fall prevention, incl call for assistance when getting out of bed, Assessed \\T\\ reinforced patient's understanding of fall precautions. Abuse screen: Denies threats or abuse. Denies injuries from another. Nutritional screening: No deficits noted. Tuberculosis screening: No symptoms or risk factors identified. Assessment: 13:25 General: Appears uncomfortable, Behavior is calm, cooperative. Pain: Complains of pain tl4 in back. Neuro: Level of Consciousness is awake, alert, obeys commands, Oriented to person, place, time, situation, Moves all extremities. Full function Gait is steady, Speech is normal. Cardiovascular: Capillary refill < 3 seconds Patient's skin is warm and dry. Respiratory: Airway is patent Respiratory effort is even, unlabored, Respiratory pattern is regular, symmetrical, Breath sounds are clear bilaterally. GI: No signs and/or symptoms were reported involving the gastrointestinal system. : No signs and/or symptoms were reported regarding the genitourinary system. EENT: No signs and/or symptoms were reported regarding the EENT system. Derm: No signs and/or symptoms reported regarding the dermatologic system. Musculoskeletal: Reports pain in back. 13:40 Reassessment: This RN entered pt room to perform EKG, insert IV and give medications. tl4 Pt states she wants to leave and will "take a pain pill at home". Pt encouraged to remain in ED for full physician evaluation. She is adamant she is leaving and does not want treatment. Pt refused to sign AMA. spray crewJOSE Cunningham and Dr Lao aware. Vital Signs: 12:24 BP 196 / 84; Pulse 93; Resp 16 S; Temp 97.8(TE); Pulse Ox 97% on R/A; Weight 78.47 kg aa5 (R); Height 5 ft. 11 in. (R); 13:26 BP 176 / 75; Pulse 88; Resp 20; Pulse Ox 98% on R/A; Pain 10/10; tl4 12:24 Body Mass Index 24.13 (78.47 kg, 180.34 cm) aa5 13:26 Pain Scale: Adult tl4 ED Course: 12:13 Patient arrived in ED. rg4 12:13 Shant Lao DO is Private Physician. rg4 12:24 Arm band placed on Patient placed in an exam room, on a stretcher. aa5 12:35 Arsenio Sexton, JOSE is Primary Nurse. tl4 12:37 Abbe Lao MD is Attending Physician. sp3 12:41 Triage completed. aa5 13:15 Patient has correct armband on for positive identification. Placed in gown. Bed in low tl4 position. Call light in reach. Side rails up X 1. Provided Education on: ED process. Client placed on continuous cardiac and pulse oximetry monitoring. NIBP monitoring applied. Door closed. Noise minimized. Moved to private room. Warm blanket given. 13:40 No provider procedures requiring assistance completed. Patient did not have IV access tl4 during this emergency room visit. Administered Medications: No medications were administered Medication: 13:30 VIS not applicable for this client. tl4 Outcome: 13:40 AMA Left before signing form, tl4 13:40 Condition: stable 13:40 Discharge instructions given to none, pt left AMA 13:56 Patient left the ED. tl4 Signatures: Peggy Rivero, RN RN [id number] Selina Givens rg4 Abbe Lao MD MD sp3 Arsenio Sexton RN RN tl4
[2024-02-15 14:44] VITALS: BP 176/75; TEMP 97.8; O2SAT 98
== END 2024-02-14 13:56 | disposition left against medical advice (07) ==
LOC: ER 12:12
DX: M54.50 Low back pain, unspecified (principal); M79.10 Myalgia, unspecified site; Z88.5 Allergy status to narcotic agent
CPT/HCPCS: 99283

== ENCOUNTER 2024-02-19 13:47 | Emergency (ER) | payer OTHER ==
--- NOTE | 2024-02-19 14:09 | ER ---
Nurse's Notes [facility] Name: Ivet Calderon Age: 73 yrs Sex: Female : 1950 Arrival Date: 02/19/2024 Time: 13:47 Bed 9 Private MD: Shant Lao Diagnosis: Zoster without complications Presentation: 02/18 13:52 Chief complaint: Patient states: shingles rash on right lower flank since . iw Coronavirus screen: At this time, the client does not indicate any symptoms associated with coronavirus-19. Ebola Screen: Patient negative for fever greater than or equal to 101.5 degrees Fahrenheit, and additional compatible Ebola Virus Disease symptoms Patient denies exposure to infectious person. Patient denies travel to an Ebola-affected area in the 21 days before illness onset. No symptoms or risks identified at this time. Initial Sepsis Screen: Does the patient meet any 2 criteria? No. Patient's initial sepsis screen is negative. Does the patient have a suspected source of infection? No. Patient's initial sepsis screen is negative. Risk Assessment: Do you want to hurt yourself or someone else? Patient reports no desire to harm self or others. Onset of symptoms was February 13, 2024. 13:52 Method Of Arrival: Ambulatory iw 13:52 Acuity: DORYS 3 iw Historical: - Allergies: 13:53 Morphine; iw - PMHx: 13:53 CVA (Unknown); diabetes mellitus; heart attack; Hypercholesterolemia; Hypertension; iw - PSHx: 13:53 Appendectomy; Cholecystectomy; open heart surgery; Stented artery; iw - Immunization history:: Adult Immunizations unknown. - Infectious Disease History:: Denies. - Social history:: Smoking status: . Screenin:00 [facility] ED Fall Risk Assessment (Adult) History of falling in the last 3 months, ph including since admission No falls in past 3 months (0 pts) Confusion or Disorientation No (0 pts) Intoxicated or Sedated No (0 pts) Impaired Gait No (0 pts) Mobility Assist Device Used No (0 pt) Altered Elimination No (0 pt) Score/Fall Risk Level 0 - 2 = Low Risk Oriented to surroundings, Maintained a safe environment, Hourly rounding (assess needs \T\ fall precautionary measures) done. Abuse screen: Denies threats or abuse. Denies injuries from another. Nutritional screening: No deficits noted. Tuberculosis screening: No symptoms or risk factors identified. Assessment: 14:00 General: Appears in no apparent distress. uncomfortable, Behavior is calm, cooperative. ph Pain: Complains of pain in right low back. Neuro: Level of Consciousness is awake, alert, obeys commands, Oriented to person, place, time, situation. Derm: Skin is pink, warm \T\ dry. Rash noted that is red, raised, vesicular, on right low back. Vital Signs: 13:52 BP 181 / 115; Pulse 99; Resp 18; Temp 97.1; Pulse Ox 97% ; Weight 79.38 kg; Height 5 iw ft. 1 in. ; Pain 10/10; 14:25 BP 172 / 97; Pulse 89; Resp 18; Temp 97.5; Pulse Ox 99% on R/A; ph 13:52 Body Mass Index 33.07 (79.38 kg, 154.94 cm) iw 13:52 Pain Scale: Adult iw ED Course: 13:48 Patient arrived in ED. rg4 13:48 Shant Lao DO is Private Physician. rg4 13:53 Triage completed. iw 13:54 [facility] Schuster [facility]-C [facility]. kb 13:54 Parag Coto DO is Attending Physician. kb 14:00 Arm band placed on. ph 14:02 Patient has correct armband on for positive identification. Door closed. Noise ph minimized. 14:13 Za Haro, RN is Primary Nurse. ph 14:32 No provider procedures requiring assistance completed. Patient did not have IV access ph during this emergency room visit. Administered Medications: 14:31 Drug: Acetaminophen-Codeine PO (300 mg-30 mg) 1 tablet PO once; RASS on ADMIN: Combtv4, ph Very Agttd3, Agttd2, Rstlss1, AlertClm0, Drwsy-1, Lt Sdtn-2, Mod Sdtn-3, Dp Sdtn-4, UnArsble-5 Route: PO; 14:38 Follow up: Response: No adverse reaction; Medication administered at discharge. ph 14:31 Drug: valACYclovir PO 1000 mg PO once Route: PO; ph 14:38 Follow up: Response: No adverse reaction; Medication administered at discharge. ph Medication: 14:01 VIS not applicable for this client. ph Outcome: 14:09 Discharge ordered by MD. jorge 14:32 Patient left the ED. ph 14:32 Discharged to home ambulatory, ph 14:32 Condition: good 14:32 Discharge instructions given to patient, Instructed on discharge instructions, follow up and referral plans. medication usage, Demonstrated understanding of instructions, follow-up care, medications, Prescriptions given X 2, Signatures: Sharri Schuster, COMPLIANCE SPEC-C COMPLIANCE SPEC-Tracie Russell RN RN Za Haro RN RN Selina Bee rg4
--- NOTE | 2024-02-19 14:09 | EDPHYS ---
Physician Documentation [facility] Name: Ivet Calderon Age: 73 yrs Sex: Female : 1950 Arrival Date: 02/19/2024 Time: 13:47 Bed 9 Private MD: Shilo [facility] ED Physician Parag Coto HPI: 02/18 14:05 This 73 yrs old Female presents to ER via Ambulatory with complaints of kb Shingles. 14:05 Pt is a 73 year old female who presents for burning pain and rash to right flank. kb States the burning pain started on with the rash presenting after that. Denies fever. States the pain has been unbearable. . Historical: - Allergies: 13:53 Morphine; iw - PMHx: 13:53 CVA (Unknown); diabetes mellitus; heart attack; Hypercholesterolemia; Hypertension; iw - PSHx: 13:53 Appendectomy; Cholecystectomy; open heart surgery; Stented artery; iw - Immunization history:: Adult Immunizations unknown. - Infectious Disease History:: Denies. - Social history:: Smoking status: . ROS: 14:05 Constitutional: As per HPI kb Exam: 14:05 Constitutional: This is a well developed, well nourished patient who is awake, alert, kb and in no acute distress. Head/Face: Normocephalic, atraumatic. ENT: Moist Mucous membranes Cardiovascular: Regular rate Respiratory: Respirations even and unlabored. No increased work of breathing. Talking in full sentences Abdomen/GI: Soft, non-tender. No distention Back: No spinal tenderness. No costovertebral tenderness. Full range of motion. MS/ Extremity: Pulses equal, no cyanosis. Neurovascular intact. Full, normal range of motion. Neuro: Awake and alert, GCS 15, oriented to person, place, time, and situation. Moves all extremities. Normal gait. 14:05 Skin: rash a moderate rash is noted, rash can be described as vesicular, consistent with zoster, on the right low back, Vital Signs: 13:52 BP 181 / 115; Pulse 99; Resp 18; Temp 97.1; Pulse Ox 97% ; Weight 79.38 kg; Height 5 iw ft. 1 in. ; Pain 10/10; 14:25 BP 172 / 97; Pulse 89; Resp 18; Temp 97.5; Pulse Ox 99% on R/A; ph 13:52 Body Mass Index 33.07 (79.38 kg, 154.94 cm) iw 13:52 Pain Scale: Adult iw MDM: 13:55 Patient medically screened. kb 14:08 Differential diagnosis: zoster, cellulitis, muscle strain, uti. Data reviewed: vital kb signs, nurses notes. Counseling: I had a detailed discussion with the patient and/or guardian regarding the historical points, exam findings, and any diagnostic results supporting the discharge/admit diagnosis, the need for outpatient follow up, a family practitioner, to return to the emergency department if symptoms worsen or persist or if there are any questions or concerns that arise at home. Administered Medications: 14:31 Drug: Acetaminophen-Codeine PO (300 mg-30 mg) 1 tablet PO once; RASS on ADMIN: Combtv4, ph Very Agttd3, Agttd2, Rstlss1, AlertClm0, Drwsy-1, Lt Sdtn-2, Mod Sdtn-3, Dp Sdtn-4, UnArsble-5 Route: PO; 14:38 Follow up: Response: No adverse reaction; Medication administered at discharge. ph 14:31 Drug: valACYclovir PO 1000 mg PO once Route: PO; ph 14:38 Follow up: Response: No adverse reaction; Medication administered at discharge. ph Disposition: 16:33 I was immediately available on-site in the Emergency Department for consultation in the ms3 care of the patient. Disposition Summary: 02/19/24 14:09 Discharge Ordered Notes: Location: Home kb Condition: Stable kb Diagnosis - Zoster without complications kb Followup: kb - With: Emergency Department - When: As needed - Reason: Worsening of condition Followup: kb - With: Private Physician - When: 2 - 3 days - Reason: Recheck today's complaints, Continuance of care, Re-evaluation by your physician Discharge Instructions: - Discharge Summary Sheet kb - Shingles, [id number] kb Forms: - Medication Reconciliation Form kb - Antibiotic Education kb - Prescription Opioid Use kb - Patient Portal Instructions kb - Leadership Thank You Letter kb Prescriptions: - Valtrex 1 gram Oral tablet - take 1 tablet ORAL route 3 times per day for 7 days; 21 tablet; Refills: 0, kb Product Selection Permitted - acetaminophen-codeine 300-30 mg Oral tablet - take 1 tablet ORAL route every 4 to 6 hours As needed as needed for pain; 12 kb tablet; Refills: 0, Product Selection Permitted Signatures: Sharri Schuster, Tracie Bridges RN RN iw Hall, Patricia, RN RN Parag Herman DO DO ms3
[2024-02-19] MEDS ORDERED: CODEINE 30MG/APAP 300MG TAB ONE (14:20)
[2024-02-19] MEDS ORDERED: VALACYCLOVIR 500 MG TAB ONE (14:25)
[2024-02-19 15:01] VITALS: BP 181/115; TEMP 97.1; O2SAT 97
== END 2024-02-19 14:32 | disposition home or self-care (01) ==
LOC: ER 13:47
DX: B02.9 Zoster without complications (principal); Z88.5 Allergy status to narcotic agent

== ENCOUNTER 2024-03-07 19:00 | Emergency (ER) | payer OTHER ==
[2024-03-07] MEDS ORDERED: KETOROLAC 30 MG/ML INJ ONE (19:32)
[2024-03-07 19:57] LABS: Absolute Basophils 0.1 K/uL (0-0.5); Absolute Eosinophils 0.4 K/uL (0-0.5); Absolute Monocytes 0.8 K/uL (0.1-1.3); Absolute Neutrophil 6.6 K/uL (1.8-8.0); Basophils % 0.7 % (0-1.3); Eosinophils % 3.1 % (0-4.4); Hematocrit 38.4 % (36.0-45.0); Lymphocytes % 33.5 % (15.3-44.8); MCH 34.7 pg (27.0-35.0); MCHC 33.7 g/dL (32.0-36.0); MCV 102.8 fL (80-100); MPV 8.2 fL (7.6-11.3); Monocytes % 6.7 % (3.3-12.3); Nucleated Red Blood Cells % 0.2 % (0-0); Platelets 362 thou/uL (152-406); RBC Red Blood Cell Count 3.74 M/uL (3.86-4.86); Red Cell Distribution Width 14.2 % (12.1-15.2)
[2024-03-07 20:19] LABS: Albumin 3.2 g/dL (3.4-5.0); Albumin/Globulin Ratio 0.6 (1.1-1.8); Anion Gap 8.8 mEq/L (5.0-15.0); Bilirubin Total 0.4 mg/dL (0.2-1.0); Globulin 5.2 g/dL (2.3-3.5); Potassium 4.8 mEq/L (3.5-5.1); Protein, Total 8.4 g/dL (6.4-8.2)
--- NOTE | 2024-03-07 20:53 | RAD REPORT ---
EXAM DESCRIPTION: CTAbdomen Pelvis W Contrast - 03/07/2024 8:40 pm CLINICAL HISTORY: ABD PAIN COMPARISON: Abdomen Pelvis W Contrast dated 05/06/2018; CT ABD PELVIS W CONTRAST dated 02/25/2015; C T ABD PELVIS W CONTRAST dated 10/12/2008; Chest Abdomen Pelvis W Cont dated 07/16/2023 TECHNIQUE: CT of the abdomen and pelvis was performed with IV contrast. All CT scans are performed using dose optimization technique as appropriate and may include automated exposure control or mA/KV adjustment according to patient size. FINDINGS: Lower chest: Coronary artery calcifications. Liver: No acute abnormality or suspicious lesions. Biliary: Cholecystectomy. Mild extrahepatic biliary duct dilatation. Suspected choledocholithiasis in the distal common bile duct. Stomach: No significant focal abnormality. Duodenum: No significant focal abnormality. Pancreas: No significant abnormality. Spleen: No significant abnormality. Adrenal: No suspicious lesions. Kidney/ureter: No hydronephrosis. Nonobstructing stone in the right kidney measuring approximately 4 millimeters. Too small to characterize and/or benign appearing renal lesions are noted. Retroperitoneum: No retroperitoneal adenopathy. Vascular: No aneurysm. Aortoiliac atherosclerosis. Bowel: Appendectomy. No bowel obstruction.. Peritoneum: No ascites or free air. Bladder: Grossly unremarkable. Reproductive: No adnexal masses. Bones: No acute fracture. Sternotomy. Other: n/a IMPRESSION: Findings are suspicious for choledocholithiasis. ERCP or MRCP could further evaluate. Mi ld biliary duct dilatation noted. No other acute findings identified.
[2024-03-07 21:33] LABS: Specific Gravity > 1.030 (1.005-1.030); Sqamous Epithelial 20-50 /HPF (None Seen); Urine Bacteria 20-50 /HPF (<20); Urine Bilirubin NEGATIVE (Negative); Urine Blood Negative (Negative); Urine Clarity Extremely Turbid (Clear); Urine Color Yellow (Yellow); Urine Culture Reflex Order NOT NEEDED; Urine Glucose NEGATIVE (Negative); Urine Ketones NEGATIVE (Negative); Urine Microscopic Reflex YN ORDER UMIC; Urine Mucus Slight /HPF (None Seen); Urine Nitrite 2+ (Negative); Urine Protein TRACE (Negative); Urine Urobilinogen 1+ (Normal); Urine WBC 20-50 /HPF (<5)
--- NOTE | 2024-03-07 21:40 | ER ---
Nurse's Notes [facility] Name: Ivet Calderon Age: 73 yrs Sex: Female : 1950 Arrival Date: 03/07/2024 Time: 19:00 Bed 20 Private MD: Diagnosis: Postherpetic Neuralgia;Lower abdominal pain, unspecified Presentation: 03/07 19:14 Chief complaint: Patient states: right sided abdominal pain X5 days with recent lg3 shingles DX. Coronavirus screen: Client denies travel out of the [place] in the last 14 days. At this time, the client does not indicate any symptoms associated with coronavirus-19. Ebola Screen: No symptoms or risks identified at this time. Initial Sepsis Screen: Does the patient meet any 2 criteria? No. Patient's initial sepsis screen is negative. Does the patient have a suspected source of infection? No. Patient's initial sepsis screen is negative. Risk Assessment: Do you want to hurt yourself or someone else? Patient reports no desire to harm self or others. Onset of symptoms is unknown. 19:14 Method Of Arrival: Ambulatory lg3 19:14 Acuity: DORYS 3 lg3 Triage Assessment: 19:15 General: Appears in no apparent distress. uncomfortable, Behavior is cooperative, lg3 crying, fussy. Pain: Complains of pain in right upper quadrant and right lower quadrant Pain radiates to back. EENT: No deficits noted. No signs and/or symptoms were reported regarding the EENT system. Neuro: No deficits noted. Argueta Agitation-Sedation Scale (RASS): 0 - Alert and Calm Level of Consciousness is awake, alert, obeys commands, Oriented to person, place, time, situation. Cardiovascular: No deficits noted. Denies chest pain, shortness of breath, Capillary refill < 3 seconds Clubbing of nail beds is absent JVD is absent Patient's skin is warm and dry. Respiratory: No deficits noted. Airway is patent Respiratory effort is even, unlabored, Respiratory pattern is regular, symmetrical. GI: Abdomen is round non-distended, obese, Abd is soft X 4 quads Abdomen is tender to palpation in right upper quadrant and right lower quadrant Reports lower abdominal pain, upper abdominal pain, nausea, vomiting. : No deficits noted. No signs and/or symptoms were reported regarding the genitourinary system. Derm: Skin is intact, is healthy with good turgor, Skin is dry, Skin is normal, Skin temperature is warm Rash noted that is papular, on back. Musculoskeletal: No deficits noted. No signs and/or symptoms reported regarding the musculoskeletal system. Circulation, motion, and sensation intact. Range of motion: intact in all extremities. Historical: - Allergies: 19:15 Morphine; lg3 - Home Meds: 19:15 clopidogrel 75 mg Oral tablet daily [Active]; lg3 - PMHx: 19:15 CVA (Unknown); diabetes mellitus; heart attack; Hypercholesterolemia; Hypertension; lg3 - PSHx: 19:15 Appendectomy; Cholecystectomy; open heart surgery; Stented artery; lg3 - Immunization history:: Adult Immunizations up to date. - Infectious Disease History:: Denies. - Social history:: Smoking status: Patient denies any tobacco usage or history of. Patient/guardian denies using alcohol, street drugs. Screenin:30 [facility] ED Fall Risk Assessment (Adult) History of falling in the last 3 months, jw7 including since admission No falls in past 3 months (0 pts) Confusion or Disorientation No (0 pts) Intoxicated or Sedated No (0 pts) Impaired Gait No (0 pts) Mobility Assist Device Used No (0 pt) Altered Elimination No (0 pt) Score/Fall Risk Level 0 - 2 = Low Risk Oriented to surroundings, Maintained a safe environment, Educated pt \T\ family on fall prevention, incl call for assistance when getting out of bed. Abuse screen: Denies threats or abuse. Denies injuries from another. Nutritional screening: No deficits noted. Tuberculosis screening: No symptoms or risk factors identified. Assessment: 19:30 General: Appears in no apparent distress. uncomfortable, Behavior is calm, cooperative, jw7 appropriate for age. 19:30 Pain: Complains of pain in abdomen Pain radiates to back Pain currently is 10 out of 10 jw7 on a pain scale. Quality of pain is described as burning, stinging, Pain began 5 days ago Is continuous. Neuro: Level of Consciousness is awake, alert, obeys commands, Oriented to person, place, time, situation, Appropriate for age. Cardiovascular: Heart tones S1 S2 present Capillary refill < 3 seconds Clubbing of nail beds is absent JVD is absent Patient's skin is warm and dry. Respiratory: Airway is patent Trachea midline Respiratory effort is even, unlabored, Respiratory pattern is regular, symmetrical. GI: Abdomen is round non-distended, Bowel sounds present X 4 quads. Abd is soft X 4 quads. : No deficits noted. No signs and/or symptoms were reported regarding the genitourinary system. EENT: No deficits noted. No signs and/or symptoms were reported regarding the EENT system. Derm: Skin is healthy with good turgor, Skin is dry, Skin is normal, Skin temperature is warm. Musculoskeletal: Circulation, motion, and sensation intact. Range of motion: intact in all extremities. 20:30 Reassessment: Patient appears in no apparent distress at this time. Patient and/or 7 family updated on plan of care and expected duration. Pain level reassessed. Patient is alert, oriented x 3, equal unlabored respirations, skin warm/dry/pink. Patient states feeling better. Patient states symptoms have improved. 21:30 Reassessment: Patient appears in no apparent distress at this time. No changes from [facility] previously documented assessment. Patient and/or family updated on plan of care and expected duration. Pain level reassessed. Patient is alert, oriented x 3, equal unlabored respirations, skin warm/dry/pink. Vital Signs: 19:14 BP 140 / 75; Pulse 74; Resp 17 S; Temp 98.1(O); Pulse Ox 98% on R/A; Weight 79.38 kg lg3 (R); Height 5 ft. 1 in. (R); 19:30 BP 156 / 56; Pulse 65; Resp 16 S; Pulse Ox 96% on R/A; jw7 20:00 BP 123 / 53; Pulse 58; Resp 16 S; Pulse Ox 96% on R/A; jw7 21:00 BP 124 / 60; Pulse 63; Resp 17 S; Pulse Ox 96% on R/A; jw7 19:14 Body Mass Index 33.07 (79.38 kg, 154.94 cm) lg3 ED Course: 19:05 Patient arrived in ED. mr 19:07 Frankie Villalba MD is Attending Physician. ec2 19:15 Triage completed. lg3 19:15 Arm band placed on right wrist. lg3 19:23 Ethel Ferraro RN is Primary Nurse. jw7 19:30 Patient has correct armband on for positive identification. Bed in low position. Call jw7 light in reach. Provided Education on: Use of Call LIght. 19:46 Initial lab(s) drawn, by me, sent to lab. Inserted saline lock: 22 gauge in right jw7 antecubital area, using aseptic technique. Blood collected. 20:41 CT Abd/Pelvis - IV Contrast Only In Process Unspecified. EDMS 21:06 Urine collected: clean catch specimen, cloudy. jw7 21:53 No provider procedures requiring assistance completed. IV discontinued, intact, jw7 bleeding controlled, No redness/swelling at site. Pressure dressing applied. Administered Medications: 19:46 Drug: TORadol - Ketorolac IVP 15 mg IVP once Route: IVP; Site: right antecubital; jw7 21:54 Follow up: Response: No adverse reaction; Marked relief of symptoms; Pain is decreased jw7 19:46 Drug: Droperidol IVP 2.5 mg IVP once Route: IVP; Site: right antecubital; jw7 21:54 Follow up: Response: No adverse reaction; Marked relief of symptoms; Pain is decreased; jw7 Nausea is decreased Medication: 21:54 VIS not applicable for this client. jw7 Outcome: 21:40 Discharge ordered by . ec2 21:53 Discharged to home ambulatory, jw7 21:53 Condition: stable 21:53 Discharge instructions given to patient, Instructed on discharge instructions, follow up and referral plans. Demonstrated understanding of instructions, follow-up care, 21:54 Patient left the ED. jw7 Signatures: Dispatcher [employer] EDKathy Mejia, Lolita Major RN RN lg3 Ethel Ferraro RN RN jw7 Frankie Villalba MD MD ec2
--- NOTE | 2024-03-07 21:40 | EDPHYS ---
Physician Documentation [facility] Name: Ivet Calderon Age: 73 yrs Sex: Female : 1950 Arrival Date: 03/07/2024 Time: 19:00 Bed 20 Private MD: ED Physician Frankie Villalba HPI: 03/07 19:22 This 73 yrs old Female presents to ER via Ambulatory with complaints of ec2 Abdominal Pain. 19:22 Patient arrives today for evaluation of right-sided abdominal pain. Patient reports she ec2 is experiencing 5 days of abdominal pain. Patient reports associated nausea. No vomiting. No issues with bowels. No urinary complaints. Patient reports recent diagnosis of shingles, states that they were on their right lower back and abdomen. States that rash has been improving.. Historical: - Allergies: 19:15 Morphine; lg3 - Home Meds: 19:15 clopidogrel 75 mg Oral tablet daily [Active]; lg3 - PMHx: 19:15 CVA (Unknown); diabetes mellitus; heart attack; Hypercholesterolemia; Hypertension; lg3 - PSHx: 19:15 Appendectomy; Cholecystectomy; open heart surgery; Stented artery; lg3 - Immunization history:: Adult Immunizations up to date. - Infectious Disease History:: Denies. - Social history:: Smoking status: Patient denies any tobacco usage or history of. Patient/guardian denies using alcohol, street drugs. ROS: 19:22 Constitutional: as per hpi ec2 Exam: 19:22 Constitutional: GEN: NAD Head: atraumatic Eyes: EOMI Ears: External ears are ec2 normal. CV: regular rate LUNGS: no respiratory distress ABD: non-distended, soft, generally tender, no guarding, not rigid. SKIN: Healing shingles rash noted to the right flank. MSK: no evidence of trauma NEURO: moves all extremities equally Vital Signs: 19:14 BP 140 / 75; Pulse 74; Resp 17 S; Temp 98.1(O); Pulse Ox 98% on R/A; Weight 79.38 kg lg3 (R); Height 5 ft. 1 in. (R); 19:30 BP 156 / 56; Pulse 65; Resp 16 S; Pulse Ox 96% on R/A; jw7 20:00 BP 123 / 53; Pulse 58; Resp 16 S; Pulse Ox 96% on R/A; jw7 21:00 BP 124 / 60; Pulse 63; Resp 17 S; Pulse Ox 96% on R/A; jw7 19:14 Body Mass Index 33.07 (79.38 kg, 154.94 cm) lg3 MDM: 19:14 Patient medically screened. ec2 19:22 Data reviewed: vital signs. ED course: Patient arrives today for evaluation of ec2 abdominal pain. Examination remarkable for shingles as noted above as well as generalized abdominal TTP. Will obtain lab work, urine studies, CT imaging. Differential diagnoses include processes such as small bowel obstruction, pancreatitis, urinary tract infection, shingles.. 20:31 ED course: CBC is reassuring. Metabolic profile with appropriate electrolytes, some ec2 diminished renal function with a GFR of 60 noted. Lipase within normal ranges. Pending urine studies as well as CT imaging. . 21:09 ED course: CT abdomen pelvis shows concern for mild biliary duct dilation. LFTs are ec2 grossly unremarkable. Will obtain ultrasound as well. . 21:33 ED course: Urine is markedly contaminated, will send urine culture. . ec2 03/07 19:22 Order name: CBC with Diff; Complete Time: 20:31 ec2 03/07 19:22 Order name: CMP; Complete Time: 20:31 ec2 03/07 19:22 Order name: Lipase; Complete Time: 20:31 ec2 03/07 19:22 Order name: Urinalysis w/ reflexes; Complete Time: 21:33 ec2 03/07 19:22 Order name: CT Abd/Pelvis - IV Contrast Only; Complete Time: 21:08 ec2 03/07 19:22 Order name: IV Saline Lock; Complete Time: 19:46 2 03/07 19:22 Order name: Labs collected and sent; Complete Time: 19:46 ec2 03/07 19:22 Order name: Misc. Order: droperidol for abd pain, nausea; Complete Time: 19:46 ec2 03/07 20:48 Order name: Misc. Order: urine please; Complete Time: 21:06 ec2 Administered Medications: 19:46 Drug: TORadol - Ketorolac IVP 15 mg IVP once Route: IVP; Site: right antecubital; jw7 21:54 Follow up: Response: No adverse reaction; Marked relief of symptoms; Pain is decreased jw7 19:46 Drug: Droperidol IVP 2.5 mg IVP once Route: IVP; Site: right antecubital; jw7 21:54 Follow up: Response: No adverse reaction; Marked relief of symptoms; Pain is decreased; jw7 Nausea is decreased Disposition Summary: 03/07/24 21:40 Discharge Ordered Condition: Stable ec2 Diagnosis - Postherpetic Neuralgia ec2 - Lower abdominal pain, unspecified ec2 Followup: ec2 - With: Private Physician - When: - Reason: Re-evaluation by your physician Discharge Instructions: - Discharge Summary Sheet ec2 - Abdominal Pain, Adult ec2 Forms: - Medication Reconciliation Form ec2 - Antibiotic Education ec2 - Prescription Opioid Use ec2 - Patient Portal Instructions ec2 - Leadership Thank You Letter ec2 Signatures: Dispatcher [employer] Lolita Spann, RN RN lg3 Ethel Ferraro RN RN jw7 Frankie Villalba MD MD ec2 Corrections: (The following items were deleted from the chart) 21:09 21:09 Abdomen Limited+[id number] ordered. JARRED STERN
[2024-03-07 22:49] VITALS: BP 124/60; TEMP 98.1; O2SAT 96
== END 2024-03-07 21:54 | disposition home or self-care (01) ==
LOC: ER 19:00
DX: B02.29 Other postherpetic nervous system involvement (principal); R10.31 Right lower quadrant pain; Z88.5 Allergy status to narcotic agent
CPT/HCPCS: 85025; 81001; 36415; 83690; 80053; 74177; 96375; 96374; 99284; Q9967

== ENCOUNTER 2024-03-17 12:10 | Emergency (ER) | payer OTHER ==
[2024-03-17] MEDS ORDERED: KETOROLAC 30 MG/ML INJ ONE (13:05)
[2024-03-17] MEDS ORDERED: NA CHLORIDE 0.9% 1,000 ML ONE (13:05)
[2024-03-17] MEDS ORDERED: ONDANSETRON 4 MG/2 ML VIAL ONE (13:05)
[2024-03-17 13:57] LABS: Absolute Eosinophils 0.5 K/uL (0-0.5); Absolute Lymphocytes (CBC) 2.9 K/uL (0.7-4.9); Absolute Monocytes 1.1 K/uL (0.1-1.3); Absolute Neutrophil 8.3 K/uL (1.8-8.0); Basophils % 0.3 % (0-1.3); Eosinophils % 3.6 % (0-4.4); Hematocrit 39.1 % (36.0-45.0); Hemoglobin 12.8 g/dL (12.0-15.0); MCH 33.9 pg (27.0-35.0); MCHC 32.7 g/dL (32.0-36.0); MCV 103.5 fL (80-100); MPV 8.6 fL (7.6-11.3); Monocytes % 8.5 % (3.3-12.3); Neutrophils % 64.6 % (41.7-73.7); Platelets 260 thou/uL (152-406); RBC Red Blood Cell Count 3.77 M/uL (3.86-4.86); Red Cell Distribution Width 14.2 % (12.1-15.2)
[2024-03-17 14:02] LABS: Albumin 3.3 g/dL (3.4-5.0); Albumin/Globulin Ratio 0.6 (1.1-1.8); Anion Gap 8.3 mEq/L (5.0-15.0); Bilirubin Total 0.3 mg/dL (0.2-1.0); Globulin 5.1 g/dL (2.3-3.5); Potassium 5.3 mEq/L (3.5-5.1); Protein, Total 8.4 g/dL (6.4-8.2)
--- NOTE | 2024-03-17 14:24 | RAD REPORT ---
EXAM DESCRIPTION: CT - Abdomen Pelvis W Contrast - 03/17/2024 1:48 pm CLINICAL HISTORY: Abdominal pain COMPARISON: March 07, 2024 TECHNIQUE: Computed axial tomography of the abdomen pelvis was obtained. 100 cc Isovue-300 was admin istered intravenously. Oral contrast was not requested which limits evaluation of bowel and appendix All CT scans are performed using dose optimization technique as appropriate and may include automated exposure control or mA/KV adjustment according to patient size. FINDINGS: Cholecystectomy. Small density is present within the common bile duct. Biliary tree normal caliber. Spleen, liver, pancreas, adrenals and left kidney appear unremarkable. Small nonobstructing right paty al calculus. Small right renal cyst No evidence of diverticulitis. No adnexal mass Atherosclerosis. IMPRESSION: Small density within the common bile duct may represent a stone Small nonobstructing right renal calculus
[2024-03-17 15:32] LABS: Specific Gravity > 1.030 (1.005-1.030); Urine Bilirubin NEGATIVE (Negative); Urine Blood Negative (Negative); Urine Clarity Clear (Clear); Urine Color Light-Yellow (Yellow); Urine Glucose NEGATIVE (Negative); Urine Ketones NEGATIVE (Negative); Urine Microscopic Reflex YN NO UMIC; Urine Nitrite NEGATIVE (Negative); Urine Protein NEGATIVE (Negative); Urine Urobilinogen Normal (Normal); Urine pH 5.5 (5.0-7.0)
[2024-03-17] MEDS ORDERED: CODEINE 30MG/APAP 300MG TAB ONE (16:30)
--- NOTE | 2024-03-17 19:16 | RAD REPORT ---
EXAM DESCRIPTION: MRICholangiogram03/17/2024 6:59 pm CLINICAL HISTORY: Abdominal pain COMPARISON: CT abdomen March 17, 2024 TECHNIQUE: Magnetic resonance cholangiogram was performed.3D MIP reconstruction performed. Additiona l axial and coronal magnetic resonance imaging of abdomen obtained. FINDINGS: Cholecystectomy Two 6 millimeter filling defects are present within distal common bile duct. The common bile duct marcus sures 8 millimeters. The biliary tree is normal caliber without a filling defect. Pancreatic duct is normal caliber IMPRESSION: Two filling defects within the distal common bile duct probably stones
--- NOTE | 2024-03-17 20:26 | ER ---
Nurse's Notes [facility] Name: Ivet Calderon Age: 73 yrs Sex: Female : 1950 Arrival Date: 03/17/2024 Time: 12:10 Bed 9 Private MD: Diagnosis: Choledocholithiasis Presentation: 03/17 12:11 Chief complaint: Patient states: she was here 2 weeks ago for a shingles flare up. kc6 states the pain is getting worse and she can't take it anymore. pt crying in triage. Coronavirus screen: At this time, the client does not indicate any symptoms associated with coronavirus-19. Ebola Screen: No symptoms or risks identified at this time. Initial Sepsis Screen: Does the patient meet any 2 criteria? No. Patient's initial sepsis screen is negative. Does the patient have a suspected source of infection? No. Patient's initial sepsis screen is negative. Risk Assessment: Do you want to hurt yourself or someone else? Patient reports no desire to harm self or others. Onset of symptoms was March 17, 2024. 12:11 Method Of Arrival: EMS: [facility] kc6 12:11 Acuity: DORYS 3 kc6 Triage Assessment: 12:12 General: Appears in no apparent distress. uncomfortable, well groomed, well developed, kc6 Behavior is calm, cooperative, appropriate for age. Pain: Complains of pain in low back area, right low back and right lower quadrant Pain currently is 10 out of 10 on a pain scale. Noted to be crying. EENT: No signs and/or symptoms were reported regarding the EENT system. Neuro: Level of Consciousness is awake, alert, obeys commands. Cardiovascular: Capillary refill < 3 seconds. Respiratory: Airway is patent Trachea midline Respiratory effort is even, unlabored, Respiratory pattern is regular, symmetrical. GI: No signs and/or symptoms were reported involving the gastrointestinal system. : No signs and/or symptoms were reported regarding the genitourinary system. Derm: No signs and/or symptoms reported regarding the dermatologic system. Skin is intact, is healthy with good turgor, Skin is pink, warm \T\ dry. Musculoskeletal: No signs and/or symptoms reported regarding the musculoskeletal system. Circulation, motion, and sensation intact. Capillary refill < 3 seconds, Range of motion: intact in all extremities. Historical: - Allergies: 12:12 Morphine; kc6 - PMHx: 12:12 CVA (Unknown); diabetes mellitus; heart attack; Hypercholesterolemia; Hypertension; kc6 Congestive heart failure; shingles (Stented artery); - PSHx: 12:12 Appendectomy; Cholecystectomy; open heart surgery; Stented artery; kc6 - Immunization history:: Adult Immunizations up to date. - Infectious Disease History:: Denies. - Social history:: Smoking status: Patient denies any tobacco usage or history of. Screenin:14 [facility] ED Fall Risk Assessment (Adult) History of falling in the last 3 months, kc6 including since admission No falls in past 3 months (0 pts) Confusion or Disorientation No (0 pts) Intoxicated or Sedated No (0 pts) Impaired Gait No (0 pts) Mobility Assist Device Used No (0 pt) Altered Elimination No (0 pt) Score/Fall Risk Level 0 - 2 = Low Risk. Abuse screen: Denies threats or abuse. Denies injuries from another. Nutritional screening: No deficits noted. Tuberculosis screening: No symptoms or risk factors identified. Assessment: 12:14 Reassessment: please see triage. kc6 13:14 Reassessment: Patient appears in no apparent distress at this time. No changes from [facility] previously documented assessment. Patient and/or family updated on plan of care and expected duration. Pain level reassessed. Patient is alert, oriented x 3, equal unlabored respirations, skin warm/dry/pink. 14:14 Reassessment: Patient appears in no apparent distress at this time. No changes from 6 previously documented assessment. Patient and/or family updated on plan of care and expected duration. Pain level reassessed. Patient is alert, oriented x 3, equal unlabored respirations, skin warm/dry/pink. 15:15 Reassessment: Patient appears in no apparent distress at this time. No changes from kc6 previously documented assessment. Patient and/or family updated on plan of care and expected duration. Pain level reassessed. Patient is alert, oriented x 3, equal unlabored respirations, skin warm/dry/pink. Patient states feeling better. Patient states symptoms have improved. 17:10 Reassessment: Patient appears in no apparent distress at this time. No changes from kc previously documented assessment. Patient and/or family updated on plan of care and expected duration. Pain level reassessed. Patient is alert, oriented x 3, equal unlabored respirations, skin warm/dry/pink. 18:28 Reassessment: Patient appears in no apparent distress at this time. No changes from kc6 previously documented assessment. Patient and/or family updated on plan of care and expected duration. Pain level reassessed. Patient is alert, oriented x 3, equal unlabored respirations, skin warm/dry/pink. 18:34 Reassessment: PT TO MRI VIA WHEELCHAIR. kc6 20:24 Reassessment: Patient appears in no apparent distress at this time. Patient and/or as6 family updated on plan of care and expected duration. Pain level reassessed. Patient is alert, oriented x 3, equal unlabored respirations, skin warm/dry/pink. Vital Signs: 12:11 BP 177 / 56; Pulse 84; Resp 19 S; Temp 98.5(O); Pulse Ox 94% on R/A; Weight 73.48 kg kc6 (R); Height 5 ft. 1 in. (R); Pain 10/10; 14:15 BP 124 / 85; kc6 14:57 BP 99 / 77; Pulse 85; Resp 17 S; Pulse Ox 94% on R/A; kc6 20:24 BP 130 / 58; Pulse 65; Resp 16; Pulse Ox 96% ; as6 12:11 Body Mass Index 30.61 (73.48 kg, 154.94 cm) kc6 12:11 Pain Scale: Adult kc6 ED Course: 12:11 Patient arrived in ED. kc6 12:12 Triage completed. kc6 12:12 Arm band placed on. kc6 12:14 Patient has correct armband on for positive identification. Bed in low position. Call kc6 light in reach. Side rails up X2. Pulse ox on. NIBP on. Pillow given. 12:15 Freya Wiggins, JOSE is Primary Nurse. kc6 12:23 Frankie Villalba MD is Attending Physician. ec2 12:55 Sharri Schuster FNP-C [facility]. kb 12:55 Frankie Villalba MD is Attending Physician. kb 13:30 Inserted saline lock: 22 gauge in left antecubital area, using aseptic technique. Blood kc6 collected. 13:48 CT Abd/Pelvis - IV Contrast Only In Process Unspecified. EDMS 14:16 Inserted IV discontinued, intact, bleeding controlled, No redness/swelling at site. kc6 Pressure dressing applied. 16:22 Patient requests pain medication. kc6 18:59 Cholangiogram In Process Unspecified. EDMS 19:26 Initiated transfer with Nereida at [facility]. rv1 20:35 Inserted saline lock: 20 gauge in right antecubital area, using aseptic technique. jb4 20:47 No provider procedures requiring assistance completed. Patient transferred, IV remains as6 in place. 20:48 Provided Education on: need for transfer . as6 21:26 Patient requests pain medication. mb9 Administered Medications: 13:40 Drug: NS 0.9% IV 1000 ml IV at 1 bolus Per protocol; 1000 mL bolus Route: IV; Rate: 1 kc6 bolus; Site: left antecubital; 20:49 Follow up: Response: No adverse reaction; IV Status: Completed infusion; IV Intake: as6 1000ml 13:41 Drug: Ondansetron IVP 4 mg IVP once; over 2 minutes Route: IVP; Site: left antecubital; kc6 14:16 Follow up: Response: No adverse reaction kc6 13:41 Drug: Ketorolac IVP 15 mg IVP once Route: IVP; Site: left antecubital; kc6 14:16 Follow up: Response: No adverse reaction; Pain is decreased kc6 16:34 Drug: Acetaminophen-Codeine PO (300 mg-30 mg) 1 tablet PO once; RASS on ADMIN: Combtv4, kc6 Very Agttd3, Agttd2, Rstlss1, AlertClm0, Drwsy-1, Lt Sdtn-2, Mod Sdtn-3, Dp Sdtn-4, UnArsble-5 Route: PO; 17:10 Follow up: Response: No adverse reaction; Pain is decreased; RASS: Alert and Calm (0) kc6 21:30 Drug: fentaNYL (PF) IVP 25 mcg IVP once Route: IVP; Site: right antecubital; as6 21:31 Follow up: Response: No adverse reaction as6 Medication: 20:47 VIS not applicable for this client. as6 Intake: 20:49 IV: 1000ml; Total: 1000ml. as6 Outcome: 20:26 ER care complete, transfer ordered by MD. kb 20:48 Transferred by ground EMS to [facility], [facility] [place], Transfer form completed. as6 X-rays sent w/ patient. 20:48 Condition: stable 20:48 Instructed on the need for transfer, 21:31 Patient left the ED. as6 Signatures: Dispatcher [employer] EDSharri Aguila, [employer]SEM[employer]ER [employer]-C [employer]SEM[employer]-Peter Prince RN RN jb4 Eddie Lopez RN RN as6 Freya Wiggins RN RN kc6 Kathy Robert RN RN mb9 Cheryl Phan rv1 Frankie Villalba MD MD ec2
--- NOTE | 2024-03-17 20:27 | EDPHYS ---
Physician Documentation [facility] Name: Ivet Calderon Age: 73 yrs Sex: Female : 1950 Arrival Date: 03/17/2024 Time: 12:10 Bed 9 Private MD: ED Physician Frankie Villalba HPI: 03/17 20:24 This 73 yrs old Female presents to ER via EMS with complaints of Skin Problem. kb 20:25 Patient is a 73-year-old female who presents for right flank and right abdominal pain kb that started 5 weeks ago. At onset of pain patient was diagnosed with shingles and treated with Valtrex. States the rash has gone away but she continues to have pain and now the pain is into her abdomen. Denies nausea, vomiting, diarrhea, fever.. Historical: - Allergies: 12:12 Morphine; kc6 - PMHx: 12:12 CVA (Unknown); diabetes mellitus; heart attack; Hypercholesterolemia; Hypertension; kc6 Congestive heart failure; shingles (Stented artery); - PSHx: 12:12 Appendectomy; Cholecystectomy; open heart surgery; Stented artery; kc6 - Immunization history:: Adult Immunizations up to date. - Infectious Disease History:: Denies. - Social history:: Smoking status: Patient denies any tobacco usage or history of. ROS: 13:05 Constitutional: As per HPI kb Exam: 13:05 Constitutional: This is a well developed, well nourished patient who is awake, alert, kb and in no acute distress. Head/Face: Normocephalic, atraumatic. ENT: Moist Mucous membranes Cardiovascular: Regular rate Respiratory: Respirations even and unlabored. No increased work of breathing. Talking in full sentences MS/ Extremity: Pulses equal, no cyanosis. Neurovascular intact. Full, normal range of motion. Neuro: Awake and alert, GCS 15, oriented to person, place, time, and situation. Moves all extremities. Normal gait. 13:05 Abdomen/GI: Inspection: abdomen appears normal, Bowel sounds: normal, Palpation: soft, in all quadrants, moderate abdominal tenderness, in all quadrants, 13:05 Skin: slight erythema to right flank, vesicular lesions that were previously noted when I saw her one month ago have resolved. , Vital Signs: 12:11 BP 177 / 56; Pulse 84; Resp 19 S; Temp 98.5(O); Pulse Ox 94% on R/A; Weight 73.48 kg kc6 (R); Height 5 ft. 1 in. (R); Pain 10/10; 14:15 BP 124 / 85; kc6 14:57 BP 99 / 77; Pulse 85; Resp 17 S; Pulse Ox 94% on R/A; kc6 20:24 BP 130 / 58; Pulse 65; Resp 16; Pulse Ox 96% ; as6 12:11 Body Mass Index 30.61 (73.48 kg, 154.94 cm) [facility] 12:11 Pain Scale: Adult kc6 MDM: 12:24 Patient medically screened. ec2 13:09 Data reviewed: vital signs, nurses notes. kb 17:41 ED course: Awaiting MRCP. kb 20:08 Management of patient was discussed with the following: GI at [facility] kb accepts pt for consult. Awaiting callback from hospitalist. 20:22 Differential diagnosis: postherpetic neuralgia, choledocholithiasis, nonspecific kb abdominal pain. Consideration of Admission/Observation Escalation of care including admission/observation considered. pt will be transferred due to lack of GI coverage for ERCP. Management of patient was discussed with the following: Dr Palma accepts pt for transfer to [facility]. Historians other than the Patient: Daughter/Son: Daughter. Counseling: I had a detailed discussion with the patient and/or guardian regarding the historical points, exam findings, and any diagnostic results supporting the discharge/admit diagnosis, lab results, radiology results, the need to transfer to another facility, [facility] does not immediately have the required specialist. 03/17 13:03 Order name: CBC with Diff; Complete Time: 14:22 kb 03/17 13:03 Order name: CMP; Complete Time: 14:03 kb 03/17 13:03 Order name: Lipase; Complete Time: 14:03 kb 03/17 13:03 Order name: Urinalysis w/ reflexes; Complete Time: 15:33 kb 03/17 13:03 Order name: CT Abd/Pelvis - IV Contrast Only; Complete Time: 14:24 kb 03/17 14:40 Order name: Cholangiogram; Complete Time: 19:17 EDMS 03/17 13:03 Order name: IV Saline Lock; Complete Time: 13:40 kb 03/17 13:03 Order name: Labs collected and sent; Complete Time: 13:40 kb Administered Medications: 13:40 Drug: NS 0.9% IV 1000 ml IV at 1 bolus Per protocol; 1000 mL bolus Route: IV; Rate: 1 kc6 bolus; Site: left antecubital; 20:49 Follow up: Response: No adverse reaction; IV Status: Completed infusion; IV Intake: as6 1000ml 13:41 Drug: Ondansetron IVP 4 mg IVP once; over 2 minutes Route: IVP; Site: left antecubital; kc6 14:16 Follow up: Response: No adverse reaction kc6 13:41 Drug: Ketorolac IVP 15 mg IVP once Route: IVP; Site: left antecubital; kc6 14:16 Follow up: Response: No adverse reaction; Pain is decreased kc6 16:34 Drug: Acetaminophen-Codeine PO (300 mg-30 mg) 1 tablet PO once; RASS on ADMIN: Combtv4, kc6 Very Agttd3, Agttd2, Rstlss1, AlertClm0, Drwsy-1, Lt Sdtn-2, Mod Sdtn-3, Dp Sdtn-4, UnArsble-5 Route: PO; 17:10 Follow up: Response: No adverse reaction; Pain is decreased; RASS: Alert and Calm (0) kc6 21:30 Drug: fentaNYL (PF) IVP 25 mcg IVP once Route: IVP; Site: right antecubital; as6 21:31 Follow up: Response: No adverse reaction as6 Disposition Summary: 03/17/24 20:26 Transfer Ordered Notes: Transfer Location: Other [facility] kb Reason: Higher level of care kb Condition: Stable kb Problem: new kb Symptoms: are unchanged kb Accepting Physician: Dr Palma(03/17/24 21:31) as6 Diagnosis - Choledocholithiasis kb Forms: - Medication Reconciliation Form kb - SBAR form kb Signatures: Dispatcher [employer] Sharri Beckett FNP-C FNP-Ckb Slawson, Ashby, RN RN as6 Freya Wiggins RN RN kc6 Frankie Villalba MD MD ec2 Corrections: (The following items were deleted from the chart) 21:31 20:26 Dr Louie jorge as6
[2024-03-17] MEDS ORDERED: FENTANYL CITR 100 MCG/2 ML ONE (21:28)
[2024-03-17 22:36] VITALS: BP 130/58; TEMP 98.5; O2SAT 96
== END 2024-03-17 21:31 | disposition short-term general hospital (02) ==
LOC: ER 12:10
DX: K80.50 Calculus of bile duct without cholangitis or cholecystitis without obstruction (principal)
CPT/HCPCS: 85025; 36415; 81003; 83690; 80053; 74177; 74181; 99285; Q9967; J3010; J2405; J7030

== ENCOUNTER 2024-03-31 14:15 | Inpatient (IN) | payer OTHER ==
--- NOTE | 2024-03-31 15:13 | RAD REPORT ---
EXAM DESCRIPTION: CT - Head Brain Wo Cont - 03/31/2024 2:52 pm CLINICAL HISTORY: Confused;Trauma Headache, drowsiness, trauma COMPARISON: Head Brain Wo Cont dated 01/03/2024; Head Brain Wo Cont dated 02/28/2023 TECHNIQUE: All CT scans are performed using dose optimization technique as appropriate and may inclu de automated exposure control or mA/KV adjustment according to patient size. FINDINGS: No intracranial hemorrhage, hydrocephalus or extra-axial fluid collection.Moderate general ized brain atrophy is present with mild periventricular and deep white matter chronic microvascular i schemic changes.No areas of brain edema or evidence of midline shift. Old left posterior frontal lobe infarct. The paranasal sinuses and mastoids are clear. The calvarium is intact. IMPRESSION: No acute intracranial abnormality.
--- NOTE | 2024-03-31 15:17 | RAD REPORT ---
EXAM DESCRIPTION: RAD - Chest Single View - 03/31/2024 3:09 pm CLINICAL HISTORY: COUGH Chest pain. COMPARISON: Chest Single View dated 07/19/2023; Chest Single View dated 05/19/2023; Chest Single View d ated 02/28/2023; Chest Single View dated 07/07/2022 FINDINGS: Portable technique limits examination quality. The lungs are grossly clear. The heart is normal in size. No displaced fractures.Sternotomy wires. IMPRESSION: No acute intrathoracic process suspected.
[2024-03-31 15:34] LABS: Absolute Basophils 0.1 K/uL (0-0.5); Absolute Eosinophils 0.2 K/uL (0-0.5); Absolute Lymphocytes (CBC) 2.2 K/uL (0.7-4.9); Absolute Monocytes 1.3 K/uL (0.1-1.3); Basophils % 0.6 % (0-1.3); Eosinophils % 0.9 % (0-4.4); MCH 34.5 pg (27.0-35.0); MCHC 33.3 g/dL (32.0-36.0); MCV 103.7 fL (80-100); MPV 8.2 fL (7.6-11.3); Monocytes % 7.6 % (3.3-12.3); Neutrophils % 77.9 % (41.7-73.7); Nucleated RBC Absolute Count 0.1 (0-0); Nucleated Red Blood Cells % 0.4 % (0-0); Platelets 340 thou/uL (152-406); RBC Red Blood Cell Count 3.76 M/uL (3.86-4.86); Red Cell Distribution Width 14.3 % (12.1-15.2)
[2024-03-31 15:45] LABS: Anion Gap 11.9 mEq/L (5.0-15.0); Potassium 4.9 mEq/L (3.5-5.1); Troponin High Sensitivity 11.4 pg/mL (<58.9)
[2024-03-31 16:01] LABS: Specific Gravity 1.025 (1.005-1.030); Urine Bacteria <20 /HPF (<20); Urine Bilirubin 1+ (Negative); Urine Blood Trace (Negative); Urine Clarity Extremely Turbid (Clear); Urine Color Yellow (Yellow); Urine Crystals Unidentified Few /HPF (None Seen); Urine Culture Reflex Order NOT NEEDED; Urine Glucose NEGATIVE (Negative); Urine Ketones NEGATIVE (Negative); Urine Micro Reflex YN NO BILL MICROSCOPIC; Urine Mucus Slight /HPF (None Seen); Urine Nitrite NEGATIVE (Negative); Urine Protein 1+ (Negative); Urine Urobilinogen 1+ (Normal); Urine Yeast (Budding) Trace /HPF (None Seen)
[2024-03-31] MEDS ORDERED: NA CHLORIDE 0.9% 1,000 ML ONE (16:37)
--- NOTE | 2024-03-31 17:03 | P.HP ---
Certification for Inpatient Patient admitted to: Inpatient With expected LOS: >2 Midnights <Nettie Mcnamara - Last Filed: 03/31/24 17:10> Patient History Date of Service: 03/31/24 Reason for admission: weakness, KRYSTAL History of Present Illness: Ms. Calderon is a 73-year-old with a past medical history of hypertension, hyperlipidemia, CAD, and diabetes. She has recently been ill. 02/15/2024 she was diagnosed with shingles to her right flank and was given meloxicam and gabapentin for pain. She returned with abdominal pain on 03/17/2024 and was found to have choledocholithiasis. She was given Toradol and for pain and was transferred to [facility] where she underwent retrieval of the stones. She returns today with generalized weakness, dizziness with a decreased ability to walk. Her PCP feels that it is probably the gabapentin causing her vertigo but she was directed to the emergency department for evaluation. She is found to have an acute kidney injury and will be admitted for further investigation and treatment with a consult to Dr. Sanford. Labs: WBC 16.7 with neutrophils of 77.9%, H/H 13/39, platelets of 340. Sodium 134, potassium 4.9, chloride 103, bicarb 24, glucose 154, BUN 46, creatinine 3.48 with a GFR of 13 (03/17/24 creatinine 1.38 with a GFR of 41), troponin 11.4, urine with trace blood, 1+ protein, 1+ bili, 75 esterase, with no bacteria. Imaging: Chest x-ray read as no acute intrathoracic process, CT head read as no acute intracranial abnormality Home medications list reviewed: Yes - Past Medical/Surgical History Diabetic: Yes -: HTN -: NIDDM -: blurry vision both eyes -: CA -: macrocytic anemia -: CAD -: CVA -: asphagia -: Tubal Ligation -: Stent 2018 -: Eye Sx -: appendectomy -: CABG -: Cholecystectomy -: PCI Psychosocial/ Personal History: Lives at home alone. A friend from [employer] loaned her a walker - Family History Mother -: Lung disease, Diabetes Father -: Diabetes, Cancer, Other (see notes) Notes: alzheimers - Social History Smoking Status: Never smoker Alcohol use: No CD- Drugs: No Caffeine use: No Place of Residence: Home <Nettie Mcnamara - Last Filed: 03/31/24 17:10> Date of Service: 03/31/24 <Claudia Evans Batsheva - Last Filed: 03/31/24 18:02> Allergies morphine Adverse Reaction (Verified 04/02/23 13:26) Flushing/Nausea Home Medications: Aspirin Chewable [Aspirin Chewable*] 81 mg PO DAILY 07/27/19 Metformin HCl [Glucophage*] 850 mg PO BID 08/21/21 Metoprolol Tartrate [Lopressor*] 25 mg PO BID 08/21/21 Lisinopril [Zestril] 1 tab PO BID 06/27/22 Atorvastatin Calcium [Lipitor] 40 mg PO BEDTIME #30 tab 06/29/22 Clopidogrel Bisulfate [Plavix*] 75 mg PO DAILY #30 tab 06/29/22 Review of Systems 10-point ROS is otherwise unremarkable General: Weakness, Malaise Integumentary: As per HPI Neurological: As per HPI <Nettie Mcnamara - Last Filed: 03/31/24 17:10> Physical Examination - Physical Exam General: Alert, In no apparent distress, Oriented x3 HEENT: Atraumatic, Normocephalic Neck: Supple, 2+ carotid pulse no bruit Respiratory: Normal air movement Cardiovascular: Normal pulses, Regular rate/rhythm Capillary refill: <2 Seconds Gastrointestinal: Soft and benign, Tenderness (mild right mid abdominal) Musculoskeletal: No clubbing, No swelling Integumentary: No rashes, Other (Vitiligo) Neurological: Normal tone, Normal affect, Other (hx of aphasia post CVA), Abnormal speech Lymphatics: No axilla or inguinal lymphadenopathy External genitalia: Deferred Rectal: Deferred - Studies Laboratory Data (last 24 hrs) 03/31/24 03/31/24 15:15 15:15 WBC 16.70 H Hgb 13.0 Hct 39.0 Plt Count 340 Sodium 134 L Potassium 4.9 BUN 46 H Creatinine 3.48 H Glucose 154 H <NaimaNettiewesley Bautista - Last Filed: 03/31/24 17:10> - Studies Laboratory Data (last 24 hrs) 03/31/24 03/31/24 15:15 15:15 WBC 16.70 H Hgb 13.0 Hct 39.0 Plt Count 340 Sodium 134 L Potassium 4.9 BUN 46 H Creatinine 3.48 H Glucose 154 H <Claudia Evans - Last Filed: 03/31/24 18:02> Assessment and Plan - Plan KRYSTAL probably medication induced gentle hydration avoid nephrotoxins monitor, trend, and maintain electrolyte balance Sue for strict I&O daily weights Consult Dr. Sanford Leukocytosis Gentle hydration monitor and trend HTN home medications except lisinopril monitor and trend HLD Lipid eval in am atorvastatin Postherpetic neuropathy Gabapentin Pepcid Diabetes glucose monitoring with mild SSI hypoglycemia protocol prn Generalized weakness with vitiligo Cortisol level in am TSH PT consult VRE/GI prophylaxis heparin, SCDs/Pepcid - Advance Directives Does patient have a Living Will: No Does patient have a Durable POA for Healthcare: No <Nettie Mcnamara Michele - Last Filed: 03/31/24 17:10> - Plan Pt seen and examined. I agree with the note by the VITICULTURIST. Pt is a 73yo female with past medical history Htn who presents with recurrent fall. Pt denies hitting her head on the floor or loss of consciousness. On admission, lab studies show wbc 16.7, Hgb 13, Na 134, K 4.9, Cr 3.48, CXR is unremarkable, and CT head is unremarkable. At bedside, pt is in NAD. A/P: KRYSTAL: Cr is 3.48. Will continue IVF, avoid nephrotoxins, and moitor renal function. Hyponatremia: Na is 134. Will continue IVF and trend NA level. Hyperkalemia: K is 4.9. Likely due to poor renal function. Will give IVF and monitor K level. Leukocytosis: Will f/u UA. CXR is unremarkable. DVT ppx: SCD Code: full <Claudia Evans C - Last Filed: 03/31/24 18:02>
[2024-03-31] MEDS ORDERED: ENOXAPARIN 40 MG/0.4 ML SQ SCH (18:00)
--- NOTE | 2024-03-31 18:12 | EDPHYS ---
Physician Documentation [facility] Name: Ivet Calderon Age: 73 yrs Sex: Female : 1950 Arrival Date: 03/31/2024 Time: 14:15 Bed 16 Private MD: ED Physician Frankie Villalba HPI: 03/31 14:35 This 73 yrs old Female presents to ER via EMS with complaints of weakness. ec2 14:35 Patient arrives today for evaluation of generalized weakness . ec2 14:36 Patient reports that she has been experiencing generalized weakness ongoing for the ec2 past several days, states she was recently hospitalized and discharged 3 days ago. Patient reports no bouts of nausea or vomiting, no diarrhea, no urinary complaints, states she was started on multiple medications recently.patient also reports that she has had multiple falls overnight. no loc, not on AC. . Historical: - Allergies: 14:24 Morphine; rs5 - PMHx: 14:24 Congestive heart failure; CVA (Unknown); diabetes mellitus; heart attack; rs5 Hypercholesterolemia; Hypertension; shingles (Stented artery); - PSHx: 14:24 Appendectomy; open heart surgery; Stented artery; Cholecystectomy; rs5 - Immunization history:: Adult Immunizations up to date. - Infectious Disease History:: Denies. - Social history:: Smoking status: Patient denies any tobacco usage or history of. ROS: 14:36 Constitutional: as per hpi ec2 Exam: 14:36 Constitutional: GEN: NAD Head: atraumatic Eyes: EOMI Ears: External ears are ec2 normal. CV: regular rate LUNGS: no respiratory distress ABD: non-distended SKIN: no evidence of rashes MSK: no evidence of trauma NEURO: moves all extremities equally Vital Signs: 14:17 BP 121 / 67; Pulse 77; Resp 17; Temp 97.8(O); Pulse Ox 97% on R/A; rs5 16:02 BP 125 / 74; Pulse 80; Resp 17; Pulse Ox 99% on R/A; rs5 16:33 BP 133 / 77; Pulse 71; Resp 17; Pulse Ox 99% on R/A; rs5 MDM: 14:24 Patient medically screened. ec2 14:36 Data reviewed: vital signs. ED course: Patient arrives today for evaluation of ec2 generalized weakness. Examination remarkable well-appearing nontoxic but is otherwise in no acute distress with a reassuring examination. Will obtain lab work, urine studies as well as CT scan of the head given the patient's recent fall. Differential diagnose include intracranial brain bleed, anemia, electrolyte disturbances, UTI, medication side effect.. 15:21 ED course: Chest x-ray independently reviewed and interpreted by me, shows no acute ec2 intrathoracic process. CT scan of the head shows no acute intracranial normality. . 16:10 ED course: EKG obtained, independently reviewed and interpreted by me, shows normal ec2 sinus rhythm, rate 78, no acute ST segment elevations, intervals are nonconcerning. . 16:13 ED course: Metabolic profile shows renal dysfunction with a creatinine of 3.48 and GFR ec2 of 13. CBC shows leukocytosis 16.7. Urine is pertinent for leuk esterases all patient without any significant urinary complaints. Troponin is within normal ranges. Chest x-ray shows no acute thoracic process. . 16:14 ED course: External records show patient was significantly diminished renal function ec2 when compared to previous records. Will admit the patient for acute renal failure. Discussed case with hospitalist, pending admission. . 19:51 ED course: MDM: Differential diagnosis as documented above in ED course; All lab tests ec2 ordered and reviewed as documented above; Independent interpretation of tests: EKG as above; imaging as above; History gathered from independent historian: Yes; family; Discuss inpatient hospitalization: Yes; I discussed the case with: Hospitalist . 03/31 14:35 Order name: Basic Metabolic Panel; Complete Time: 16:13 ec2 03/31 14:35 Order name: CBC with Diff; Complete Time: 16:13 ec2 03/31 14:35 Order name: Troponin HS; Complete Time: 16:13 ec2 03/31 14:35 Order name: UAM; Complete Time: 16:13 ec2 03/31 17:25 Order name: T4 Free EDMS 03/31 17:26 Order name: Thyroid Stimulating Hormone EDMS 03/31 17:26 Order name: Urinalysis w/ reflexes EDMS 03/31 17:26 Order name: CBC with Automated Diff EDMS 03/31 17:26 Order name: CBC with Automated Diff EDMS 03/31 17:26 Order name: CBC with Automated Diff EDMS 03/31 17:26 Order name: CBC with Automated Diff EDMS 03/31 17:26 Order name: CBC with Automated Diff EDMS 03/31 17:26 Order name: Comprehensive Metabolic Panel EDMS 03/31 17:26 Order name: Comprehensive Metabolic Panel EDMS 03/31 17:26 Order name: Comprehensive Metabolic Panel EDMS 03/31 17:26 Order name: Comprehensive Metabolic Panel EDMS 03/31 17:26 Order name: Comprehensive Metabolic Panel EDMS 03/31 17:26 Order name: Creatine Phosphokinase EDMS 03/31 17:26 Order name: Creatine Phosphokinase EDMS 03/31 17:26 Order name: Creatine Phosphokinase EDMS 03/31 17:26 Order name: Creatine Phosphokinase EDMS 03/31 17:26 Order name: Lipid Profile EDMS 03/31 17:26 Order name: Lipid Profile EDMS 03/31 17:26 Order name: Magnesium EDMS 03/31 17:26 Order name: Magnesium EDMS 03/31 17:26 Order name: Magnesium EDMS 03/31 17:26 Order name: Magnesium EDMS 03/31 17:26 Order name: Magnesium EDMS 03/31 17:26 Order name: Phosphorus EDMS 03/31 17:26 Order name: Phosphorus EDMS 03/31 17:26 Order name: Phosphorus EDMS 03/31 17:26 Order name: Phosphorus EDMS 03/31 17:26 Order name: Phosphorus EDMS 03/31 17:26 Order name: Blood Culture EDMS 04/01 03:05 Order name: Cortisol EDMS 03/31 14:35 Order name: XRAY Chest (1 view); Complete Time: 15:21 ec2 03/31 14:35 Order name: CT Head Brain wo Cont; Complete Time: 15:21 ec2 03/31 14:35 Order name: EKG; Complete Time: 14:35 ec2 03/31 17:25 Order name: CONS Physician Consult EDMS 03/31 14:35 Order name: Cardiac monitoring; Complete Time: 16:01 ec2 03/31 14:35 Order name: EKG - Nurse/Tech; Complete Time: 16:10 ec2 03/31 14:35 Order name: IV Saline Lock; Complete Time: 16:01 ec2 03/31 14:35 Order name: Labs collected and sent; Complete Time: 16:01 ec2 03/31 14:35 Order name: O2 Per Protocol; Complete Time: 16:01 ec2 03/31 14:35 Order name: O2 Sat Monitoring; Complete Time: 16:01 ec2 Administered Medications: 16:20 Drug: NS 0.9% IV 1000 ml IV at 1 bolus Per protocol; 1000 mL bolus Route: IV; Rate: 1 rs5 bolus; Site: left hand; 19:00 Follow up: Response: No adverse reaction; IV Status: Completed infusion; IV Intake: pc2 1000ml Disposition Summary: 03/31/24 16:15 Hospitalization Ordered Notes: Hospitalization Status: Inpatient Admission ec2 Provider: Claudia Evans ec2 Condition: Stable ec2 Problem: new ec2 Symptoms: have improved ec2 Bed/Room Type: Standard ec2 Location: Telemetry/MedSurg (Inpatient)(04/01/24 09:26) bd Room Assignment: [facility](04/01/24 09:26) bd Diagnosis - Weakness ec2 - Acute kidney failure, unspecified ec2 Forms: - Medication Reconciliation Form ec2 - SBAR form ec2 - Leadership Thank You Letter ec2 Signatures: Dispatcher [employer] EDMS Cindi Batista bd Addison Meyer RN RN rs5 Frankie Villalba MD MD ec2 Kanika curiel RN pc2 Corrections: (The following items were deleted from the chart) 14:35 14:35 BASIC METABOLIC PANEL+C.LAB.BRZ ordered. EDMS EDMS 14:35 14:35 CBC+H.LAB.BRZ ordered. EDMS EDMS 14:35 14:35 Troponin High Sensitivity+C.LAB.BRZ ordered. EDMS EDMS 14:35 14:35 Urinalysis W/Microscopic+U.LAB.BRZ ordered. EDMS EDMS 14:36 14:36 Head Brain Wo Cont+CT.RAD.BRZ ordered. EDMS EDMS 16:01 14:35 Sue ordered. ec2 rs5 18:48 16:15 Telemetry/MedSurg (Inpatient) ec2 bd 18:48 16:15 ec2 bd 04/01 09:26 03/31 18:48 BR ER HOLD bd bd 04/01 09:26 03/31 18:48 ERHOLD- bd bd
--- NOTE | 2024-03-31 18:12 | ER ---
Nurse's Notes [facility] Name: Ivet Calderon Age: 73 yrs Sex: Female : 1950 Arrival Date: 03/31/2024 Time: 14:15 Bed 16 Private MD: Diagnosis: Weakness;Acute kidney failure, unspecified Presentation: 03/31 14:17 Chief complaint: EMS states: Recently hospitalized for shingles, discharged Saturday rs5 and started on five new different kinds of medications. Pt has been complaining of generalized weakness and suffered three falls this a.m. denies pain at this moment, but has a bump to right side of forehead. Coronavirus screen: At this time, the client does not indicate any symptoms associated with coronavirus-19. Ebola Screen: No symptoms or risks identified at this time. Initial Sepsis Screen: Does the patient meet any 2 criteria? No. Patient's initial sepsis screen is negative. Does the patient have a suspected source of infection? No. Patient's initial sepsis screen is negative. Risk Assessment: Do you want to hurt yourself or someone else? Patient reports no desire to harm self or others. Onset of symptoms was March 31, 2024. Care prior to arrival: IV initiated. 20 GA, in the left hand. 14:17 Method Of Arrival: EMS: [facility] rs5 14:17 Acuity: DORYS 3 rs5 Historical: - Allergies: 14:24 Morphine; rs5 - PMHx: 14:24 Congestive heart failure; CVA (Unknown); diabetes mellitus; heart attack; rs5 Hypercholesterolemia; Hypertension; shingles (Stented artery); - PSHx: 14:24 Appendectomy; open heart surgery; Stented artery; Cholecystectomy; rs5 - Immunization history:: Adult Immunizations up to date. - Infectious Disease History:: Denies. - Social history:: Smoking status: Patient denies any tobacco usage or history of. Screenin:25 [facility] ED Fall Risk Assessment (Adult) History of falling in the last 3 months, rs5 including since admission No falls in past 3 months (0 pts) Confusion or Disorientation No (0 pts) Intoxicated or Sedated No (0 pts) Impaired Gait No (0 pts) Mobility Assist Device Used No (0 pt) Altered Elimination No (0 pt) Score/Fall Risk Level 0 - 2 = Low Risk Oriented to surroundings, Maintained a safe environment. Abuse screen: Denies threats or abuse. Nutritional screening: No deficits noted. Tuberculosis screening: No symptoms or risk factors identified. Assessment: 14:20 General: Appears in no apparent distress. comfortable, Behavior is calm, cooperative. rs5 Pain: Denies pain. Neuro: Level of Consciousness is awake, alert, obeys commands, Oriented to person, place, time, situation. Neuro: Reports generalized weakness. Cardiovascular: Rhythm is regular. Respiratory: Airway is patent Respiratory effort is even, unlabored, Respiratory pattern is regular, symmetrical. GI: Abdomen is round non-distended, Abd is soft and non tender X 4 quads. : No signs and/or symptoms were reported regarding the genitourinary system. EENT: No signs and/or symptoms were reported regarding the EENT system. Derm: Skin is intact, Skin is pink, warm \T\ dry. Musculoskeletal: Range of motion: intact in all extremities. 15:32 Reassessment: Patient and/or family updated on plan of care and expected duration. Pain rs5 level reassessed. Patient is alert, oriented x 3, equal unlabored respirations, skin warm/dry/pink. 16:45 Reassessment: No changes from previously documented assessment. rs5 Vital Signs: 14:17 BP 121 / 67; Pulse 77; Resp 17; Temp 97.8(O); Pulse Ox 97% on R/A; rs5 16:02 BP 125 / 74; Pulse 80; Resp 17; Pulse Ox 99% on R/A; rs5 16:33 BP 133 / 77; Pulse 71; Resp 17; Pulse Ox 99% on R/A; rs5 ED Course: 14:17 Patient arrived in ED. rs5 14:18 Frankie Villalba MD is Attending Physician. ec2 14:24 Triage completed. rs5 14:25 Patient has correct armband on for positive identification. Placed in gown. Bed in low rs5 position. Call light in reach. Side rails up X2. 14:25 No provider procedures requiring assistance completed. rs5 14:40 Addison Meyer, RN is Primary Nurse. rs5 14:52 CT Head Brain wo Cont In Process Unspecified. EDMS 15:11 XRAY Chest (1 view) In Process Unspecified. EDMS 16:14 Iwueke, Izuchukwu, MD is Hospitalizing Provider. ec2 16:40 Patient admitted, IV remains in place. rs5 Administered Medications: 16:20 Drug: NS 0.9% IV 1000 ml IV at 1 bolus Per protocol; 1000 mL bolus Route: IV; Rate: 1 rs5 bolus; Site: left hand; 19:00 Follow up: Response: No adverse reaction; IV Status: Completed infusion; IV Intake: pc2 1000ml Medication: 14:25 VIS not applicable for this client. rs5 Intake: 19:00 IV: 1000ml; Total: 1000ml. pc2 Outcome: 16:15 Decision to Hospitalize by Provider. ec2 16:40 Admitted to ER Hold. Please see [facility] for further documentation. rs5 16:40 Condition: stable rs5 16:40 Instructed on the need for admit, Demonstrated understanding of instructions, 04/01 10:33 Patient left the ED. em1 Signatures: Dispatcher [employer] [facility] Petr Matthew em1 Addison Meyer RN RN rs5 Frankie Villalba MD MD ec2 Kanika curiel, RN RN pc2
[2024-03-31] MEDS: NA CHLORIDE 0.9% 1,000 ML IV SCH (20:00)
[2024-03-31] MEDS: ATORVASTATIN 40 MG TAB PO SCH (21:00)
[2024-03-31] MEDS: GABAPENTIN 300 MG CAP PO SCH (21:00)
[2024-03-31] MEDS: FAMOTIDINE 20 MG/2 ML VIAL IV SCH (21:00)
[2024-03-31] MEDS ORDERED: GABAPENTIN 300 MG CAP ONE (21:49)
[2024-03-31] MEDS ORDERED: FAMOTIDINE 20 MG/2 ML VIAL IV ONE (21:49)
[2024-03-31] MEDS ORDERED: ATORVASTATIN 40 MG TAB ONE (21:49)
[2024-03-31 23:01] LABS: Thyroid Stimulating Hormone 0.44 uIU/mL (0.358-3.740)
[2024-04-01] MEDS ORDERED: NA CHLORIDE 0.9% 1,000 ML ONE ×2 (00:42→06:01)
[2024-04-01] MEDS ORDERED: HEPARIN 5000 UNIT/ML 1 ML VIAL ONE ×2 (00:42→09:14)
[2024-04-01] MEDS: HEPARIN 5000 UNIT/ML 1 ML VIAL SQ SCH (01:00)
[2024-04-01 02:47] LABS: Absolute Basophils 0.1 K/uL (0-0.5); Absolute Eosinophils 0.3 K/uL (0-0.5); Absolute Lymphocytes (CBC) 3.4 K/uL (0.7-4.9); Absolute Monocytes 1.2 K/uL (0.1-1.3); Absolute Neutrophil 7.6 K/uL (1.8-8.0); Basophils % 0.4 % (0-1.3); Eosinophils % 2.3 % (0-4.4); Hematocrit 35.2 % (36.0-45.0); Hemoglobin 11.8 g/dL (12.0-15.0); Lymphocytes % 27.3 % (15.3-44.8); MCH 34.7 pg (27.0-35.0); MCHC 33.7 g/dL (32.0-36.0); MPV 8.1 fL (7.6-11.3); Monocytes % 9.5 % (3.3-12.3); Neutrophils % 60.5 % (41.7-73.7); Nucleated Red Blood Cells % 0.1 % (0-0); Platelets 313 thou/uL (152-406); RBC Red Blood Cell Count 3.41 M/uL (3.86-4.86); Red Cell Distribution Width 14.2 % (12.1-15.2)
[2024-04-01 03:04] LABS: Albumin 2.9 g/dL (3.4-5.0); Albumin/Globulin Ratio 0.6 (1.1-1.8); Anion Gap 9.9 mEq/L (5.0-15.0); Bilirubin Total 0.5 mg/dL (0.2-1.0); Globulin 4.5 g/dL (2.3-3.5); Magnesium 2.7 mg/dL (1.6-2.4); Phosphorus 3.5 mg/dL (2.5-4.9); Potassium 3.9 mEq/L (3.5-5.1); Protein, Total 7.4 g/dL (6.4-8.2)
[2024-04-01] MEDS: METOPROLOL XL 50 MG TAB PO SCH (06:00)
[2024-04-01] MEDS ORDERED: METOPROLOL XL 50 MG TAB PO ONE (06:02)
[2024-04-01] MEDS: CLOPIDOGREL 75 MG TABLET PO SCH (09:00)
[2024-04-01] MEDS: AMLODIPINE 10 MG TAB PO SCH (09:00)
[2024-04-01] MEDS: NIFEDIPINE XL 30 MG TABLET PO SCH (09:00)
[2024-04-01] MEDS ORDERED: CLOPIDOGREL 75 MG TABLET ONE (09:13)
[2024-04-01] MEDS ORDERED: AMLODIPINE 10 MG TAB ONE (09:14)
[2024-04-01] MEDS ORDERED: FAMOTIDINE 20 MG/2 ML VIAL IV ONE (09:14)
--- NOTE | 2024-04-01 10:53 | P.PN ---
Subjective Date of Service: 04/01/24 Chief Complaint: weakness, KRYSTAL Subjective: No new changes (pt trying to stand by herself, reminded to not get out of bed alone) <Nettie Mcnamara - Last Filed: 04/01/24 10:50> Date of Service: 04/01/24 <Claudia Evans - Last Filed: 04/01/24 12:01> Review of Systems 10-point ROS is otherwise unremarkable Cardiovascular: Light Headedness, As per HPI Integumentary: As per HPI Neurological: As per HPI <Nettie Mcnamara - Last Filed: 04/01/24 10:50> Physical Examination - Vital Signs Temperature: 97.8 F Blood Pressure: 133/77 Pulse: 71 Respirations: 17 Pulse Ox (%): 97 - Physical Exam General: Alert, Oriented x3, Other (deconditioned and wobbly) HEENT: Atraumatic, Normocephalic Neck: Supple Respiratory: Normal air movement Cardiovascular: Normal pulses Capillary refill: <2 Seconds Gastrointestinal: Soft and benign Musculoskeletal: No clubbing, No swelling Integumentary: Other (right flank with residual inflammation s/p zoster) Neurological: Normal affect, Abnormal gait, Abnormal strength Lymphatics: No axilla or inguinal lymphadenopathy Urinary: Other (refused) External genitalia: Deferred Rectal: Deferred - Studies Laboratory Data (last 24 hrs) 03/31/24 03/31/24 15:15 15:15 WBC 16.70 H Hgb 13.0 Hct 39.0 Plt Count 340 Sodium 134 L Potassium 4.9 BUN 46 H Creatinine 3.48 H Glucose 154 H <Nettie Mcnamara - Last Filed: 04/01/24 10:50> - Studies Laboratory Data (last 24 hrs) 03/31/24 03/31/24 15:15 15:15 WBC 16.70 H Hgb 13.0 Hct 39.0 Plt Count 340 Sodium 134 L Potassium 4.9 BUN 46 H Creatinine 3.48 H Glucose 154 H <Claudia Evans - Last Filed: 04/01/24 12:01> Assessment And Plan - Plan KRYSTAL probably medication induced gentle hydration avoid nephrotoxins monitor, trend, and maintain electrolyte balance Sue for strict I&O daily weights Consult Dr. Sanford 04/01 improved creatinine and GFR Leukocytosis Gentle hydration monitor and trend HTN home medications except lisinopril monitor and trend HLD Lipid eval in am atorvastatin Postherpetic neuropathy Gabapentin Pepcid Diabetes glucose monitoring with mild SSI hypoglycemia protocol prn Generalized weakness with vitiligo Cortisol level in am -WNL TSH - WNL PT consult VRE/GI prophylaxis heparin, SCDs/Pepcid <Nettie Mcnamara - Last Filed: 04/01/24 10:50> - Plan Pt seen and examined. I agree with the note by the COMMUTATOR PRESSER. Continue IVF and monitor renal function. Continue home meds for other chronic medical problems. <Claudia Evans - Last Filed: 04/01/24 12:01>
[2024-04-01] MEDS: FENTANYL CITR 100 MCG/2 ML IV PRN (13:11)
[2024-04-01] MEDS: PNEUMOCOCCAL VACCINE 0.5 ML IMVAC ONE (18:42)
--- NOTE | 2024-04-01 19:27 | P.CNS ---
Date of Consult: 04/01/24 Reason for Consult: KRYSTAL/ CKD Requesting Physician: Claudia Evans Chief Complaint: weakness, KRYSTAL History of Present Illness: Ms. Calderon is a 73-year-old with a past medical history of hypertension, hyperlipidemia, CAD, and diabetes. She has recently been ill. 02/15/2024 she was diagnosed with shingles to her right flank and was given meloxicam and gabapentin for pain. She returned with abdominal pain on 03/17/2024 and was found to have choledocholithiasis. She was given Toradol for pain and was transferred to [facility] where she underwent retrieval of the stones. She returns today with generalized weakness, dizziness with a decreased ability to walk. Her PCP feels that it is probably the gabapentin causing her vertigo but she was directed to the emergency department for evaluation. She was found to have an acute kidney injury. 14:35 This 73 yrs old Female presents to ER via EMS with complaints of weakness. ec2 14:35 Patient arrives today for evaluation of generalized weakness . ec2 14:36 Patient reports that she has been experiencing generalized weakness ongoing for the ec2 past several days, states she was recently hospitalized and discharged 3 days ago. Patient reports no bouts of nausea or vomiting, no diarrhea, no urinary complaints, states she was started on multiple medications recently.patient also reports that she has had multiple falls overnight. no loc, not on AC. She reports taking 2 tabs of ibuprofen 3-4 times a day over the past month. She denies any difficulty with urination but reports a strong yellow color. Allergies morphine Adverse Reaction (Verified 04/02/23 13:26) Flushing/Nausea Home medications list reviewed: Yes Home Medications: Aspirin Chewable [Aspirin Chewable*] 81 mg PO DAILY 07/27/19 Metformin HCl [Glucophage*] 850 mg PO BID 08/21/21 Metoprolol Tartrate [Lopressor*] 25 mg PO BID 08/21/21 Lisinopril [Zestril] 1 tab PO BID 06/27/22 Atorvastatin Calcium [Lipitor] 40 mg PO BEDTIME #30 tab 06/29/22 Clopidogrel Bisulfate [Plavix*] 75 mg PO DAILY #30 tab 06/29/22 Carvedilol [Coreg] 12.5 mg PO DAILY 04/01/24 Cefdinir [Cefdinir*] 300 mg PO BID 04/01/24 Cetirizine HCl [All Day Allergy] 10 mg PO DAILY 04/01/24 Duloxetine [Cymbalta Dalayed Release Pellets] 20 mg PO DAILY 04/01/24 Gabapentin 100 mg PO TID PRN 04/01/24 Lisinopril [Zestril] 40 mg PO TID 04/01/24 Tramadol HCl [Ultram] 50 mg PO 1X PRN 04/01/24 - Past Medical/Surgical History Diabetic: Yes -: HTN -: NIDDM -: blurry vision both eyes -: Macrocytic Anemia -: CAD/ OR -: CVA -: asphagia -: Tubal Ligation -: Stent 2018 -: Eye Sx -: appendectomy -: CABG -: Cholecystectomy -: PCI Psychosocial/ Personal History: Lives at home alone. A friend from [place] loaned her a walker - Family History Mother Medical History: Lung disease, Diabetes Father Medical History: Diabetes, Cancer, Other (see notes) Notes: alzheimers - Social History Smoking Status: Unknown if ever smoked Alcohol use: No CD- Drugs: No Caffeine use: No Place of Residence: Home Review of Systems 10-point ROS is otherwise unremarkable General: Weakness, Malaise Gastrointestinal: Abdominal Pain Integumentary: Rash Physical Examination Temp Pulse Resp BP Pulse Ox 97.4 F 73 16 141/63 H 91 04/01/24 15:36 04/01/24 15:36 04/01/24 15:36 04/01/24 15:36 04/01/24 15:36 General: In no apparent distress, Oriented x3, Cooperative HEENT: Atraumatic Neck: Supple Respiratory: Clear to auscultation bilaterally, Normal air movement Cardiovascular: No edema, Regular rate/rhythm Gastrointestinal: Non-distended, Tenderness Musculoskeletal: No clubbing, No contractures Integumentary: No cyanosis, Rash(es) Neurological: Normal speech Blood work reviewed in the chart. Imagings Data: EXAM DESCRIPTION: RAD - Chest Single View - 03/31/2024 3:09 pm CLINICAL HISTORY: COUGH Chest pain. COMPARISON: Chest Single View dated 07/19/2023; Chest Single View dated 05/19/2023; Chest Single View dated 02/28/2023; Chest Single View dated 07/07/2022 FINDINGS: Portable technique limits examination quality. The lungs are grossly clear. The heart is normal in size. No displaced fractures.Sternotomy wires. IMPRESSION: No acute intrathoracic process suspected. EXAM DESCRIPTION: CT - Head Brain Wo Cont - 03/31/2024 2:52 pm CLINICAL HISTORY: Confused;Trauma Headache, drowsiness, trauma COMPARISON: Head Brain Wo Cont dated 01/03/2024; Head Brain Wo Cont dated 02/28/2023 TECHNIQUE: All CT scans are performed using dose optimization technique as appropriate and may include automated exposure control or mA/KV adjustment according to patient size. FINDINGS: No intracranial hemorrhage, hydrocephalus or extra-axial fluid collection.Moderate generalized brain atrophy is present with mild periventricular and deep white matter chronic microvascular ischemic changes.No areas of brain edema or evidence of midline shift. Old left posterior frontal lobe infarct. The paranasal sinuses and mastoids are clear. The calvarium is intact. IMPRESSION: No acute intracranial abnormality. Conclusions/Impression: Stage III KRYSTAL in the setting of excessive NSAIDs and hypovolemia complicated by lisinopril CKD II with Proteinuria -No NSAIDs -Continue IVF HTN with CKD -Continue Amlodipine -Continue Metoprolol DM II with CKD -Hold metformin -RISS prn Hypoalbuminemia -Consider protein supplementation Anemia in chronic illness Macrocytosis with Hx of B12 deficiency Hx iron deficiency -Monitor H&H Vitamin D3 Deficiency -Start Ergo Hospitalist and ER notes reviewed Thank you kindly for the consultation
[2024-04-02 03:56] LABS: Absolute Basophils 0.1 K/uL (0-0.5); Absolute Eosinophils 0.4 K/uL (0-0.5); Absolute Lymphocytes (CBC) 3.2 K/uL (0.7-4.9); Absolute Monocytes 0.9 K/uL (0.1-1.3); Absolute Neutrophil 4.7 K/uL (1.8-8.0); Basophils % 0.6 % (0-1.3); Eosinophils % 3.8 % (0-4.4); Hematocrit 31.9 % (36.0-45.0); Lymphocytes % 34.9 % (15.3-44.8); MCH 35.3 pg (27.0-35.0); MCHC 34.3 g/dL (32.0-36.0); MCV 102.7 fL (80-100); MPV 8.1 fL (7.6-11.3); Monocytes % 9.4 % (3.3-12.3); Neutrophils % 51.3 % (41.7-73.7); Platelets 266 thou/uL (152-406); RBC Red Blood Cell Count 3.11 M/uL (3.86-4.86); Red Cell Distribution Width 14.1 % (12.1-15.2)
[2024-04-02 04:42] LABS: Albumin 2.5 g/dL (3.4-5.0); Albumin/Globulin Ratio 0.6 (1.1-1.8); Bilirubin Total 0.3 mg/dL (0.2-1.0); Ferritin 33.8 ng/mL (8-388); Phosphorus 2.7 mg/dL (2.5-4.9); Protein, Total 6.5 g/dL (6.4-8.2)
[2024-04-02] MEDS: DOCUSATE NA 100 MG CAP PO SCH (08:26)
[2024-04-02] MEDS: DRISDOL (VITAMIN D=ERGOCALCIFEROL) 50000 UNIT CAP PO SCH (09:00)
--- NOTE | 2024-04-02 12:49 | P.PN ---
Subjective Date of Service: 04/02/24 Chief Complaint: weakness, KRYSTAL Subjective: No new changes (continued "shingles pain") <Nettie Mcnamara - Last Filed: 04/02/24 12:44> Date of Service: 04/02/24 <Claudia Evans - Last Filed: 04/02/24 13:21> Review of Systems 10-point ROS is otherwise unremarkable Integumentary: As per HPI <Nettie Mcnamara - Last Filed: 04/02/24 12:44> Physical Examination - Vital Signs Temperature: 97.8 F Blood Pressure: 137/61 Pulse: 69 Respirations: 16 Pulse Ox (%): 98 - Physical Exam General: Alert, In no apparent distress, Oriented x3 HEENT: Atraumatic, Normocephalic Neck: Supple Respiratory: Normal air movement Cardiovascular: Normal pulses, Regular rate/rhythm Capillary refill: <2 Seconds Gastrointestinal: Soft and benign Musculoskeletal: No clubbing, No swelling Integumentary: Other (mild erythema to right flank, no open lesions) Neurological: Normal speech, Normal tone, Normal affect, Abnormal strength Lymphatics: No axilla or inguinal lymphadenopathy External genitalia: Deferred Rectal: Tenderness <Nettie Mcnamara - Last Filed: 04/02/24 12:44> Assessment And Plan - Plan KRYSTAL probably medication induced gentle hydration avoid nephrotoxins monitor, trend, and maintain electrolyte balance Sue for strict I&O daily weights Consult Dr. Sanford 04/01 improved creatinine and GFR 04/02 improved creatinine 3.48 to 1.85 to 0.79 GFR 13 to 29 to 79 Leukocytosis Gentle hydration monitor and trend Improving 16.7 to 12.6 to 9.2 HTN home medications except lisinopril monitor and trend HLD Lipid eval in am atorvastatin Postherpetic neuropathy Gabapentin Pepcid Diabetes glucose monitoring with mild SSI hypoglycemia protocol prn Generalized weakness with vitiligo Cortisol level in am -WNL TSH - WNL PT consult SNF placement VRE/GI prophylaxis heparin, SCDs/Pepcid <Nettie Mcnamara - Last Filed: 04/02/24 12:44> - Plan Pt seen and examined. I agree with the note by the GARDEN EQUIPMENT MECHANIC. Renal function is improving. Consulted PT for deconditioning. Continue home meds for other chronic medical problems. <Claudia Evans - Last Filed: 04/02/24 13:21>
--- NOTE | 2024-04-02 16:21 | EKG ---
Test Date: 2024-03-31 Test Time: 16:07:11 Bottom Liner: CHRISTOPHER MEASUREMENT RESULTS: Intervals: Rate: 78 HI: 164 QRSD: 76 QT: 364 QTc: 414 Lawrence: P: 26 HI: 164 QRS: 60 T: 68 INTERPRETIVE STATEMENTS: Normal sinus rhythm Possible Anterior infarct, age undetermined Abnormal ECG Compared to ECG 01/03/2024 22:42:48 Myocardial infarct finding now present Electronically Signed On 04-02-24 16:17:18 CDT by Arnaldo Tan
[2024-04-02 17:38] VITALS: BMI 31.7
--- NOTE | 2024-04-02 22:32 | P.PN ---
Date of Service: 04/02/24 Vital Signs Temp Pulse Resp BP Pulse Ox 98.6 F 74 16 154/70 H 98 04/02/24 16:00 04/02/24 16:00 04/02/24 16:00 04/02/24 16:00 04/02/24 16:00 Medications Atorvastatin Calcium (Atorvastatin 40 Mg Tab) 40 mg PO BEDTIME REPLACED BY [facility] Last Admin: 04/02/24 21:13 Dose: 40 mg Clopidogrel Bisulfate (Clopidogrel 75 Mg Tablet) 75 mg PO DAILY REPLACED BY [facility] Last Admin: 04/02/24 08:27 Dose: 75 mg Cyanocobalamin (Cyanocobalamin 1000mcg/Ml Inj) 1,000 mcg SQ Q24H REPLACED BY [facility] Docusate Sodium (Docusate Na 100 Mg Cap) 100 mg PO BID REPLACED BY [facility] Last Admin: 04/02/24 21:13 Dose: Not Given Ergocalciferol (Drisdol (Vitamin D=Ergocalciferol) 05960 Unit Cap) 50,000 unit PO DAILY REPLACED BY [facility] Stop: 04/04/24 09:01 Famotidine (Famotidine 20 Mg/2 Ml Vial) 20 mg IV BID REPLACED BY [facility]; Protocol Last Admin: 04/02/24 21:00 Dose: Not Given Fentanyl Citrate (Fentanyl Citr 100 Mcg/2 Ml) 25 mcg IV Q4H PRN PRN Reason: Pain scale 8-10 (Severe) Last Admin: 04/02/24 08:27 Dose: 25 mcg Gabapentin (Gabapentin 300 Mg Cap) 300 mg PO BEDTIME REPLACED BY [facility] Last Admin: 04/02/24 21:13 Dose: 300 mg Heparin Sodium (Porcine) (Heparin 5000 Unit/Ml 1 Ml Vial) 5,000 unit SQ Q8HR REPLACED BY [facility] Last Admin: 04/02/24 17:00 Dose: Not Given Ferric Sodium Gluconate Complex 250 mg/ Sodium Chloride 120 mls @ 100 mls/hr IV Q24H REPLACED BY [facility] Stop: 04/07/24 07:11 Metoprolol Succinate (Metoprolol Xl 50 Mg Tab) 50 mg PO [id number] REPLACED BY [facility] Last Admin: 04/02/24 06:00 Dose: 50 mg Multivitamins/Iron (Fe Sulf/Fa/Vit B Comp & C Tab) 1 tab PO DAILY WITH BREAKF AST REPLACED BY [facility] Nifedipine (Nifedipine Xl 30 Mg Tablet) 60 mg PO DAILY REPLACED BY [facility] Assessment/ Plan: Nephrology No dyspnea No chest pain Persistent abdominal pain No acute events overnight Vitals, medications, blood work and imaging reviewed in the chart General: In no apparent distress, Oriented x3, Cooperative HEENT: Atraumatic Neck: Supple Respiratory: Clear to auscultation bilaterally, Normal air movement Cardiovascular: No edema, Regular rate/rhythm Gastrointestinal: Non-distended, Tenderness Musculoskeletal: No clubbing, No contractures Integumentary: No cyanosis, Rash(es) Neurological: Normal speech Blood work reviewed in the chart. Imagings Data: EXAM DESCRIPTION: RAD - Chest Single View - 03/31/2024 3:09 pm CLINICAL HISTORY: COUGH Chest pain. COMPARISON: Chest Single View dated 07/19/2023; Chest Single View dated 05/19/2023; Chest Single View dated 02/28/2023; Chest Single View dated 07/07/2022 FINDINGS: Portable technique limits examination quality. The lungs are grossly clear. The heart is normal in size. No displaced fractures.Sternotomy wires. IMPRESSION: No acute intrathoracic process suspected. EXAM DESCRIPTION: CT - Head Brain Wo Cont - 03/31/2024 2:52 pm CLINICAL HISTORY: Confused;Trauma Headache, drowsiness, trauma COMPARISON: Head Brain Wo Cont dated 01/03/2024; Head Brain Wo Cont dated 02/28/2023 TECHNIQUE: All CT scans are performed using dose optimization technique as appropriate and may include automated exposure control or mA/KV adjustment according to patient size. FINDINGS: No intracranial hemorrhage, hydrocephalus or extra-axial fluid collection.Moderate generalized brain atrophy is present with mild periventricular and deep white matter chronic microvascular ischemic changes.No areas of brain edema or evidence of midline shift. Old left posterior frontal lobe infarct. The paranasal sinuses and mastoids are clear. The calvarium is intact. IMPRESSION: No acute intracranial abnormality. Conclusions/Impression: Stage III KRYSTAL in the setting of excessive NSAIDs and hypovolemia complicated by lisinopril CKD II with Proteinuria -No NSAIDs -Discontinue IVF HTN with CKD -Continue Nifedipine ER -Continue Metoprolol DM II with CKD -Hold metformin -RISS prn Hypoalbuminemia -Consider protein supplementation Anemia in chronic illness Macrocytosis B12 Deficiency Iron Deficiency -Monitor H&H -Start B12 daily -Start IV Iron Vitamin D3 Deficiency -Continue Ergo Hospitalist note reviewed
[2024-04-03 04:07] LABS: Absolute Basophils 0.1 K/uL (0-0.5); Absolute Eosinophils 0.3 K/uL (0-0.5); Absolute Monocytes 0.9 K/uL (0.1-1.3); Absolute Neutrophil 4.9 K/uL (1.8-8.0); Basophils % 0.6 % (0-1.3); Eosinophils % 3.4 % (0-4.4); Hematocrit 34.3 % (36.0-45.0); Hemoglobin 11.8 g/dL (12.0-15.0); Lymphocytes % 33.1 % (15.3-44.8); MCH 35.4 pg (27.0-35.0); MCHC 34.5 g/dL (32.0-36.0); MCV 102.7 fL (80-100); MPV 7.9 fL (7.6-11.3); Monocytes % 9.7 % (3.3-12.3); Neutrophils % 53.2 % (41.7-73.7); Nucleated Red Blood Cells % 0.1 % (0-0); Platelets 291 thou/uL (152-406); RBC Red Blood Cell Count 3.34 M/uL (3.86-4.86); Red Cell Distribution Width 14.5 % (12.1-15.2)
[2024-04-03 04:16] LABS: Albumin 2.7 g/dL (3.4-5.0); Albumin/Globulin Ratio 0.7 (1.1-1.8); Anion Gap 5.8 mEq/L (5.0-15.0); Bilirubin Total 0.4 mg/dL (0.2-1.0); Globulin 4.1 g/dL (2.3-3.5); Potassium 3.8 mEq/L (3.5-5.1); Protein, Total 6.8 g/dL (6.4-8.2)
[2024-04-03] MEDS ORDERED: SOD FERRIC GLUC COMPLX/SUCROSE 250 MG in NA CHLORIDE 0.9% 100 ML IV SCH (06:00)
[2024-04-03] MEDS: CYANOCOBALAMIN 1000MCG/ML INJ SQ SCH (06:07)
[2024-04-03] MEDS: NIFEDIPINE XL 60 MG TABLET PO SCH (08:50)
[2024-04-03] MEDS: DRISDOL (VITAMIN D=ERGOCALCIFEROL) 50000 UNIT CAP PO SCH (08:50)
[2024-04-03] MEDS: FE SULF/FA/VIT B COMP & C TAB PO SCH (08:51)
--- NOTE | 2024-04-03 08:59 | P.PN ---
Subjective Date of Service: 04/03/24 Chief Complaint: weakness, KRYSTAL Subjective: Improving (SNF placement for strengthening) <NaimaNettie Bautista - Last Filed: 04/03/24 08:53> Date of Service: 04/03/24 <Claudia Evans Batsheva - Last Filed: 04/03/24 12:46> Review of Systems 10-point ROS is otherwise unremarkable General: Weakness, Malaise Integumentary: As per HPI <Nettie Mcnamara - Last Filed: 04/03/24 08:53> Physical Examination - Vital Signs Temperature: 98.2 F Blood Pressure: 109/56 Pulse: 71 Respirations: 20 Pulse Ox (%): 96 - Physical Exam General: Alert, In no apparent distress, Oriented x3 HEENT: Atraumatic, Normocephalic Neck: Supple Respiratory: Normal air movement Cardiovascular: Normal pulses, Regular rate/rhythm, Normal S1 S2 Capillary refill: <2 Seconds Gastrointestinal: Soft and benign Musculoskeletal: No clubbing, No swelling Integumentary: Other (right sided herpetic neuropathy, tender to touch) Neurological: Normal speech, Normal affect, Abnormal strength, Abnormal tone Lymphatics: No axilla or inguinal lymphadenopathy External genitalia: Deferred Rectal: Deferred <Nettie Mcnamara - Last Filed: 04/03/24 08:53> Assessment And Plan - Plan KRYSTAL probably medication induced gentle hydration avoid nephrotoxins monitor, trend, and maintain electrolyte balance Sue for strict I&O daily weights Consult Dr. Sanford 04/01 improved creatinine and GFR 04/02 improved creatinine 3.48 to 1.85 to 0.79 GFR 13 to 29 to 79 04/03 resolved Leukocytosis Gentle hydration monitor and trend Improving 16.7 to 12.6 to 9.2 04/03 Resolved HTN home medications except lisinopril monitor and trend increased Imdur HLD Lipid eval in am atorvastatin Postherpetic neuropathy Gabapentin Pepcid Diabetes glucose monitoring with mild SSI hypoglycemia protocol prn Generalized weakness with vitiligo Cortisol level in am -WNL TSH - WNL PT consult SNF placement VRE/GI prophylaxis heparin, SCDs/Pepcid Discharge Plan: Long Term <Nettie Mcnamara - Last Filed: 04/03/24 08:53> - Plan Pt seen and examined. I agree with the note by the TV HOST. KRYSTAL has resolved. Waiting for PT allan. Will dc soon. <Claudia Evans - Last Filed: 04/03/24 12:46>
[2024-04-03] MEDS: SIMETHICONE 125 MG TAB PO PRN (09:28)
--- NOTE | 2024-04-03 11:15 | P.PN ---
Nephrology (S) Pt reports feeling better overall, anxious, reports issues at home, wanting to go home, renal function improved. BP non elevated, reports high at home. General: In no apparent distress, Oriented x3, Cooperative HEENT: Atraumatic Neck: Supple Respiratory: Clear to auscultation bilaterally, Normal air movement Cardiovascular: No edema, Regular rate/rhythm Gastrointestinal: Non-distended, Tenderness Musculoskeletal: No contractures Integumentary: No cyanosis, Rash Neurological: Normal speech, awake, alert Blood work reviewed in the chart. Conclusions/Impression: Stage II KRYSTAL, multifactorial, resolved -Avoid NSAIDs, replace ACEi with CCB or resume at lower dose upon resumption, if needed in the future Chronic HTN -Labile BP, accelerated at home per pt reports, but not here. Cont close monitoring as OP DM II with unspecified complications -With renal function recovered and off ACEi, could resume Metformin at lower dose
[2024-04-03] MEDS ORDERED: SOD FERRIC GLUC COMPLX/SUCROSE 250 MG in NA CHLORIDE 0.9% 250 ML IV SCH (12:00)
[2024-04-03 12:57] VITALS: O2SAT 96
--- NOTE | 2024-04-03 16:07 | P.DS ---
Admission Date: 03/31/24 Discharge Date: 04/03/24 Reason for Admission: weakness, KRYSTAL Consultations: Dr. Sanford Brief History of Present Illness: Ms. Calderon is a 73-year-old with a past medical history of hypertension, hyperlipidemia, CAD, and diabetes. She has recently been ill. 02/15/2024 she was diagnosed with shingles to her right flank and was given meloxicam and gabapentin for pain. She returned with abdominal pain on 03/17/2024 and was found to have choledocholithiasis. She was given Toradol and for pain and was transferred to [facility] where she underwent retrieval of the stones. She returns today with generalized weakness, dizziness with a decreased ability to walk. Her PCP feels that it is probably the gabapentin causing her vertigo but she was directed to the emergency department for evaluation. She is found to have an acute kidney injury and will be admitted for further investigation and treatment with a consult to Dr. Sanford. Labs: WBC 16.7 with neutrophils of 77.9%, H/H 13/39, platelets of 340. Sodium 134, potassium 4.9, chloride 103, bicarb 24, glucose 154, BUN 46, creatinine 3.48 with a GFR of 13 (03/17/24 creatinine 1.38 with a GFR of 41), troponin 11.4, urine with trace blood, 1+ protein, 1+ bili, 75 esterase, with no bacteria. Imaging: Chest x-ray read as no acute intrathoracic process, CT head read as no acute intracranial abnormality Hospital Course: Ms. Calderon improved over the course of her hospitalization. group home facility was recommended for rehab but patient would rather go home at this time. She has had a tough time over the last month with shingles and then choledocholithiasis. She is deconditioned and weak . She should follow-up with her PCP and with nephrology. Her acute kidney injury has improved. Some changes were made to her blood pressure regimen. It is recommended that we replace her COURTNEY inhibitor with a calcium channel madhavi at a lower dose. With her kidney function recovered and being off the COURTNEY inhibitor she could resume her me tformin at a lower dose as needed. Okay to DC IV and DC home Follow-up with primary care provider in 1 week Follow-up with Dr. Sanford in 1 to 2-weeks Please call the inpatient unit for any questions or concerns regarding hospital stay Return to the ER for worsening symptoms <NaimaNettiewesley Bautista - Last Filed: 04/03/24 16:00> Admission Date: 03/31/24 Discharge Date: 04/04/24 Hospital Course: Pt seen and examined. I agree with the note by the INSPECTION MANAGER. KRYSTAL improved with IVF and we optimized BP regimen. Ok to discharge pt. <Claudia Evans - Last Filed: 04/04/24 22:06> Disposition: DC HOME/HOME HEALTH CARE Discharge Condition: GOOD Vital Signs/Physical Exam: Temp Pulse Resp BP Pulse Ox 98.1 F 74 20 133/62 96 04/03/24 12:00 04/03/24 12:00 04/03/24 12:00 04/03/24 12:00 04/03/24 12:00 General: Alert, In no apparent distress, Oriented x3 HEENT: Atraumatic, Normocephalic Neck: Supple Respiratory: Normal air movement Cardiovascular: Normal pulses, Regular rate/rhythm, Normal S1 S2 Capillary refill: <2 Seconds Gastrointestinal: Soft and benign Musculoskeletal: No clubbing, No swelling Integumentary: Other (tenderness over right lateral buttock and flank) Neurological: Normal speech, Normal affect, Abnormal strength Lymphatics: No axilla or inguinal lymphadenopathy External genitalia: Deferred Rectal: Deferred Laboratory Data at Discharge: WBC 9.20 thou/uL (4.3-10.9) 04/03/24 03:20 Hgb 11.8 g/dL (12.0-15.0) L 04/03/24 03:20 Hct 34.3 % (36.0-45.0) L 04/03/24 03:20 Plt Count 291 thou/uL (152-406) 04/03/24 03:20 Sodium 139 mEq/L (136-145) 04/03/24 03:20 Potassium 3.8 mEq/L (3.5-5.1) 04/03/24 03:20 BUN 10 mg/dL (7-18) 04/03/24 03:20 Creatinine 0.70 mg/dL (0.55-1.02) 04/03/24 03:20 Glucose 106 mg/dL (74-106) 04/03/24 03:20 Phosphorus 3.0 mg/dL (2.5-4.9) 04/03/24 03:20 Magnesium 2.0 mg/dL (1.6-2.4) 04/03/24 03:20 Total Bilirubin 0.4 mg/dL (0.2-1.0) 04/03/24 03:20 AST 13 U/L (15-37) L 04/03/24 03:20 ALT 17 U/L (13-56) 04/03/24 03:20 Alkaline Phosphatase 80 U/L (45-117) 04/03/24 03:20 Triglycerides 166 mg/dL (<150) H 04/01/24 02:18 Cholesterol 187 mg/dL (<200) 04/01/24 02:18 HDL Cholesterol 34 mg/dL (40-60) L 04/01/24 02:18 Cholesterol/HDL Ratio 5.50 04/01/24 02:18 <Mcnamara,Nettie Michele - Last Filed: 04/03/24 16:00> Vital Signs/Physical Exam: Temp Pulse Resp BP Pulse Ox 97.8 F 98 H 18 136/62 97 04/03/24 16:00 04/03/24 16:00 04/03/24 16:00 04/03/24 16:00 04/03/24 16:00 Laboratory Data at Discharge: WBC 9.20 thou/uL (4.3-10.9) 04/03/24 03:20 Hgb 11.8 g/dL (12.0-15.0) L 04/03/24 03:20 Hct 34.3 % (36.0-45.0) L 04/03/24 03:20 Plt Count 291 thou/uL (152-406) 04/03/24 03:20 Sodium 139 mEq/L (136-145) 04/03/24 03:20 Potassium 3.8 mEq/L (3.5-5.1) 04/03/24 03:20 BUN 10 mg/dL (7-18) 04/03/24 03:20 Creatinine 0.70 mg/dL (0.55-1.02) 04/03/24 03:20 Glucose 106 mg/dL (74-106) 04/03/24 03:20 Phosphorus 3.0 mg/dL (2.5-4.9) 04/03/24 03:20 Magnesium 2.0 mg/dL (1.6-2.4) 04/03/24 03:20 Total Bilirubin 0.4 mg/dL (0.2-1.0) 04/03/24 03:20 AST 13 U/L (15-37) L 04/03/24 03:20 ALT 17 U/L (13-56) 04/03/24 03:20 Alkaline Phosphatase 80 U/L (45-117) 04/03/24 03:20 Triglycerides 166 mg/dL (<150) H 04/01/24 02:18 Cholesterol 187 mg/dL (<200) 04/01/24 02:18 HDL Cholesterol 34 mg/dL (40-60) L 04/01/24 02:18 Cholesterol/HDL Ratio 5.50 04/01/24 02:18 <Claudia Evans - Last Filed: 04/04/24 22:06> Diet: AHA Activity: Ad milo <Nettie Mcnamara - Last Filed: 04/03/24 16:00> <Claudia Evans - Last Filed: 04/04/24 22:06> Home Medications: Aspirin Chewable [Aspirin Chewable*] 81 mg PO DAILY 07/27/19 Metformin HCl [Glucophage*] 850 mg PO BID 08/21/21 Atorvastatin Calcium [Lipitor] 40 mg PO BEDTIME #30 tab 06/29/22 Clopidogrel Bisulfate [Plavix*] 75 mg PO DAILY #30 tab 06/29/22 Cefdinir [Cefdinir*] 300 mg PO BID 04/01/24 Cetirizine HCl [All Day Allergy] 10 mg PO DAILY 04/01/24 Duloxetine [Cymbalta *] 20 mg PO DAILY 04/01/24 Gabapentin 100 mg PO TID PRN 04/01/24 Tramadol HCl [Ultram] 50 mg PO 1X PRN 04/01/24 Metoprolol Succinate [Toprol Xl*] 50 mg PO [id number] 60 Days #60 tab 04/03/24 Nifedipine Xl [Procardia XL*] 60 mg PO DAILY 60 Days #60 tab 04/03/24 Vitamin D [Drisdol*] 50,000 unit PO Q7D 49 Days #7 cap 04/03/24 New Medications: Vitamin D [Drisdol*] 50,000 unit PO Q7D 49 Days #7 cap Nifedipine Xl [Procardia XL*] 60 mg PO DAILY 60 Days #60 tab Metoprolol Succinate [Toprol Xl*] 50 mg PO [id number] 60 Days #60 tab Physician Discharge Instructions: Continue ad milo activity as tolerated. Take Metoprolol XL 50mg po dailya nd Nifedipine as prescribed. Follow up with PCP within 1 - 2 weeks, Continue Physical therapy at home. Followup: Shant Lao DO [Primary Care Provider] - 1-2 Weeks Jefe Sanford DO [ACTIVE - CAN ADMIT] -
[2024-04-03 16:51] VITALS: BP 136/62; TEMP 97.8
== END 2024-04-03 16:39 | disposition home health service (06) | DRG 683 ==
LOC: ER 14:15 → ERHOLD 17:12 → 2ND 04-01 09:26
PROVIDERS: ADMIT Hospitalist; ATTEND Hospitalist
PROC: 0T9B70Z Drainage of Bladder with Drainage Device, Via Natural or Artificial Opening (ICD-10-PCS; principal; 2024-03-31)
DX: N17.9 Acute kidney failure, unspecified (principal); E87.1 Hypo-osmolality and hyponatremia; L80 Vitiligo; E87.5 Hyperkalemia; E86.1 Hypovolemia; D72.829 Elevated white blood cell count, unspecified; I12.9 Hypertensive chronic kidney disease with stage 1 through stage 4 chronic kidney disease, or unspecified chronic kidney disease; N18.2 Chronic kidney disease, stage 2 (mild); E11.22 Type 2 diabetes mellitus with diabetic chronic kidney disease; E11.42 Type 2 diabetes mellitus with diabetic polyneuropathy; D63.1 Anemia in chronic kidney disease; D50.9 Iron deficiency anemia, unspecified; D51.9 Vitamin B12 deficiency anemia, unspecified; E55.9 Vitamin D deficiency, unspecified; E78.5 Hyperlipidemia, unspecified; D75.89 Other specified diseases of blood and blood-forming organs; E88.09 Other disorders of plasma-protein metabolism, not elsewhere classified; I25.2 Old myocardial infarction; I25.10 Atherosclerotic heart disease of native coronary artery without angina pectoris; T39.395A Adverse effect of other nonsteroidal anti-inflammatory drugs [NSAID], initial encounter; Z23 Encounter for immunization; Z60.2 Problems related to living alone; Z95.1 Presence of aortocoronary bypass graft; Z98.51 Tubal ligation status; Z79.82 Long term (current) use of aspirin; Z79.84 Long term (current) use of oral hypoglycemic drugs; Z79.02 Long term (current) use of antithrombotics/antiplatelets; Z90.49 Acquired absence of other specified parts of digestive tract; Z86.73 Personal history of transient ischemic attack (TIA), and cerebral infarction without residual deficits; Z79.899 Other long term (current) drug therapy
CPT/HCPCS: 36415; 70450; 71045; 80048; 80053; 80061; 81001; 82306; 82533; 82550; 82607; 82728; 82947; 83540; 83735; 84100; 84439; 84443; 84466; 84484; 85025; 87040; 90471; 90732; 93005; 96360; 96361; 97116; 97161; 97530; 99285; J1644; J2916; J3010; J3420; J7030

== ENCOUNTER 2024-05-12 11:18 | Inpatient (IN) | payer OTHER ==
[2024-05-12] MEDS ORDERED: NA CHLORIDE 0.9% 500 ML ONE (11:50)
[2024-05-12 12:30] LABS: Absolute Lymphocytes (CBC) 1.8 K/uL (0.7-4.9); Absolute Monocytes 0.9 K/uL (0.1-1.3); Absolute Neutrophil 9.4 K/uL (1.8-8.0); Basophils % 0.3 % (0-1.3); Eosinophils % 0.2 % (0-4.4); Hematocrit 39.4 % (36.0-45.0); Hemoglobin 12.9 g/dL (12.0-15.0); Lymphocytes % 14.9 % (15.3-44.8); MCH 32.8 pg (27.0-35.0); MCHC 32.6 g/dL (32.0-36.0); MCV 100.6 fL (80-100); Neutrophils % 77.6 % (41.7-73.7); Platelets 270 thou/uL (152-406); RBC Red Blood Cell Count 3.92 M/uL (3.86-4.86); Red Cell Distribution Width 13.1 % (12.1-15.2)
[2024-05-12 12:35] LABS: PT Prothrombin Time 13.1 SECONDS (9.4-12.5); PTT, Activated Partial Thromb 26.5 SECONDS (24.3-36.9); Protime INR 1.18
[2024-05-12 12:37] LABS: ALT/SGPT 18 U/L (13-56); AST/SGOT 13 U/L (15-37); Albumin 3.3 g/dL (3.4-5.0); Albumin/Globulin Ratio 0.6 (1.1-1.8); Alkaline Phosphatase 85 U/L (45-117); Anion Gap 9.9 mEq/L (5.0-15.0); BUN Blood Urea Nitrogen 15 mg/dL (7-18); Bicarbonate 25 mEq/L (21-32); Bilirubin Total 0.7 mg/dL (0.2-1.0); Creatine Phosphokinase < 15 U/L (26-192); Globulin 5.2 g/dL (2.3-3.5); Glomerular Filtration Rate 57 ml/min (=/>90); Glucose Level 167 mg/dL (74-106); NT PRO-BNP 276 pg/mL (<125); Potassium 3.9 mEq/L (3.5-5.1); Protein, Total 8.5 g/dL (6.4-8.2); Sodium Level 138 mEq/L (136-145)
[2024-05-12 12:45] LABS: Specific Gravity 1.025 (1.005-1.030); Sqamous Epithelial <5 /HPF (None Seen); Urine Bacteria None Seen /HPF (<20); Urine Bilirubin NEGATIVE (Negative); Urine Blood Negative (Negative); Urine Clarity Turbid (Clear); Urine Color Yellow (Yellow); Urine Culture Reflex Order NOT NEEDED; Urine Glucose NEGATIVE (Negative); Urine Ketones 2+ (Negative); Urine Microscopic Reflex YN ORDER UMIC; Urine Mucus 3+ /HPF (None Seen); Urine Nitrite NEGATIVE (Negative); Urine Protein TRACE (Negative); Urine RBC <5 /HPF (None Seen); Urine Urobilinogen 1+ (Normal); Urine WBC <5 /HPF (<5); Urine pH 5.5 (5.0-7.0)
--- NOTE | 2024-05-12 14:28 | RAD REPORT ---
EXAM DESCRIPTION: CT - Head C Spine Cap W Con - 05/12/2024 1:00 pm CLINICAL HISTORY: TRAUMA COMPARISON: Head Brain Wo Cont dated 03/31/2024 TECHNIQUE: Head and cervical spine CT images were obtained without IV contrast. Chest, abdomen, and pelvis CT images were obtained following intravenous administration of iodinated contrast. Multiplana r reformats were generated and reviewed. All CT scans are performed using dose optimization technique as appropriate and may include automated exposure control or mA/KV adjustment according to patient size. FINDINGS: CT HEAD: No intracranial hemorrhage, mass effect, or edema. A new region of hypodensity and loss of freeman-white matter differentiation involves the right temporoparietal region extending towards the sylvian fissu re. Stable small region of encephalomalacia in the left parietal lobe. No midline shift or abnormal f luid collection. The ventricles are normal in caliber and configuration for age. Basal cisterns are p atent. Mastoid aircells and paranasal sinuses are clear. No acute skull fracture. Left temporal scalp swelling and hematoma. CT CERVICAL SPINE: No acute cervical spine fracture or subluxation. Vertebral body heights are well maintained. Facet cash ints are normal in alignment. No hyperattenuating canal hematoma. Prevertebral and paraspinous soft t issues are unremarkable. CT CHEST: No pneumothorax, pulmonary contusion or pleural fluid collection. No mediastinal hematoma and the aor ta and pulmonary arteries are unremarkable. No chest will mass or abnormal axillary finding. No displ aced rib fracture or other significant bony finding. CT ABDOMEN/ PELVIS: No evidence of traumatic injury to solid abdominal viscera. Gallbladder was surgically removed. No laina wel injury or significant finding. Moderate to advanced atherosclerotic calcifications at the origins of the renal arteries more so on the right. Nonobstructing 3-4 mm right interpolar calculus. No free air, free fluid or abnormal fat stranding. No urinary bladder abnormality. No significant bony finding. IMPRESSION: New region of right temporoparietal lobe hypodensity, suggesting subacute ischemia. Left temporal scalp swelling and hematoma. No other acute traumatic findings. Other incidental findings as above. The findings were communicated to Shankar Forbes on 05/12/2024 at 14:19 hours.
--- NOTE | 2024-05-12 14:50 | RAD REPORT ---
EXAM DESCRIPTION: RADChest Single View05/12/2024 1:50 pm CLINICAL HISTORY: TRAUMA COMPARISON: Chest Single View dated 03/31/2024; Chest Single View dated 07/19/2023; Chest Single View dated 05/19/2023; Chest Single View dated 02/28/2023 TECHNIQUE: Portable AP view of the chest. FINDINGS: The lungs are clear. Elevation of the right hemidiaphragm again seen. Sequelae of median s ternotomy, and then implantable rhythm monitoring device are again present. No pneumothorax or effus ion. The cardiomediastinal contours are unremarkable. IMPRESSION: No acute cardiopulmonary process.
--- NOTE | 2024-05-12 14:56 | RAD REPORT ---
EXAM DESCRIPTION: RAD - Pelvis - 05/12/2024 1:50 pm CLINICAL HISTORY: TRAUMA COMPARISON: No comparisons TECHNIQUE: Single AP view of the pelvis. FINDINGS: The visualized pelvic ring is intact. No suspicious osseous lesions. Excreted contrast in the renal collecting systems and bladder. No significant degenerative changes or erosions of the hip joints. Other pelvic joints are unremarkable. Visualized aspects of the abdomen and soft tissues are unremarkable. IMPRESSION: No acute osseous abnormality of the bony pelvis.
--- NOTE | 2024-05-12 15:02 | EDPHYS ---
Physician Documentation [facility] Name: Ivet Calderon Age: 73 yrs Sex: Female : 1950 Arrival Date: 05/12/2024 Time: 11:18 Bed 2 Private MD: ED Physician France Lee HPI: 05/12 11:40 This 73 yrs old Female presents to ER via Unassigned with complaints of Fall sd2 Injury, Altered Mental Status. 11:40 73 yo F presents via EMS with CC of fall and AMS. Pt was seen here last week for sd2 postherpetic neuralgia and discharged home on gabapentin. Family last saw her a couple of days ago and went to check on her today and found her on the ground with the apartment in disarray and blood in multiple areas. Noted forehead laceration by EMS and confusion with patient not speaking as she is normally A\T\Ox4 per their report. Further hx limited due to patient's mental status.. Historical: - Allergies: 12:52 Morphine; ph - Home Meds: 12:52 clopidogrel 75 mg Oral tablet daily [Active]; ph - PMHx: 12:52 Congestive heart failure; CVA (Unknown); diabetes mellitus; heart attack; ph Hypercholesterolemia; Hypertension; - PSHx: 12:52 Appendectomy; Cholecystectomy; open heart surgery; Stented artery; ph - Immunization history:: Adult Immunizations unknown. - Infectious Disease History:: unable to obtain. - Immunization history: Last tetanus immunization: unknown. - Social history:: Smoking status: unknown. ROS: 11:40 Unable to obtain ROS due to altered mental status, sd2 Exam: 11:40 Constitutional: This is a well developed, well nourished patient who is awake, alert, sd2 and in no acute distress. Head/Face: Normocephalic, L forehead laceration noted, no active bleeding, bruising noted to L buddhism area Eyes: EOMI, normal conjunctiva bilaterally Neck: Trachea midline, no thyromegaly or masses palpated, and no cervical lymphadenopathy. Supple, no midline spinal tenderness, stepoffs or deformities, C-collar placed upon arrival. Chest/axilla: Normal chest wall appearance and motion. Nontender with no deformity. Cardiovascular: Regular rate and rhythm with a normal S1 and S2. No gallops, murmurs, or rubs. 2+ distal pulses. Respiratory: Lungs have equal breath sounds bilaterally, clear to auscultation and percussion. No rales, rhonchi or wheezes noted. No increased work of breathing, no retractions or nasal flaring. Abdomen/GI: Soft, non-tender, with normal bowel sounds. No guarding or rebound. No evidence of tenderness throughout. Back: No spinal tenderness. No costovertebral tenderness. Full range of motion. Skin: Warm, dry with normal turgor. No rashes, no lesions, and no evidence of cellulitis. Scattered bruising throughout extremities in various stages of healing. MS/ Extremity: Pulses equal, no cyanosis. Neurovascular intact. Full, normal range of motion. Neuro: Awake and alert, responds to stimuli appropriately, PEREZ equally Psych: Awake and alert, attempts to answer questions but unable to make sense of what she is saying 13:35 ECG was reviewed by the Attending Physician. NSR, rate 79, no STEMI criteria or ST-T sd2 wave changes, wandering baseline present Vital Signs: 11:45 BP 171 / 65; Pulse 80; Resp 18; Temp 97.8; Pulse Ox 95% on R/A; ph 13:52 BP 149 / 55; Pulse 82; Resp 18; Pulse Ox 100% on 2 lpm NC; ph 15:00 BP 157 / 54; Pulse 90; Resp 18; Pulse Ox 100% on R/A; ph 15:42 BP 153 / 63; Pulse 72; Resp 18; Pulse Ox 100% on 2 lpm NC; ph 16:50 BP 183 / 54; Pulse 83; Resp 18; Pulse Ox 100% on 2 lpm NC; ph 21:39 BP 158 / 94; Pulse 88; Resp 16; Temp 97.9(A); Pulse Ox 98% on R/A; kd3 Jason Coma Score: 12:38 Eye Response: spontaneous(4). Motor Response: obeys commands(6). Verbal Response: ph confused(4). Total: 14. 15:00 Eye Response: spontaneous(4). Motor Response: obeys commands(6). Verbal Response: ph confused(4). Total: 14. 16:50 Eye Response: spontaneous(4). Motor Response: obeys commands(6). Verbal Response: ph confused(4). Total: 14. Trauma Score (Adult): 12:38 Eye Response: spontaneous(1); Verbal Response: confused(1); Motor Response: obeys ph commands(2); Systolic BP: > 89 mm Hg(4); Respiratory Rate: 10 to 29 per min(4); Jason Score: 14; Trauma Score: 12 15:00 Eye Response: spontaneous(1); Verbal Response: confused(1); Motor Response: obeys ph commands(2); Systolic BP: > 89 mm Hg(4); Respiratory Rate: 10 to 29 per min(4); Aurora Score: 14; Trauma Score: 12 16:50 Eye Response: spontaneous(1); Verbal Response: confused(1); Motor Response: obeys ph commands(2); Systolic BP: > 89 mm Hg(4); Respiratory Rate: 10 to 29 per min(4); Jason Score: 14; Trauma Score: 12 MDM: 11:28 Patient medically screened. sd2 11:40 Differential diagnosis: abrasion, closed head injury, contusion, fracture, laceration, sd2 multiple trauma, sprain, strain, ICH, UTI among others. Data reviewed: vital signs, nurses notes, EMS record, lab test result(s), EKG, radiologic studies. Historians other than the Patient: EMS: provides initial report. 15:00 Care significantly affected by the following chronic conditions: Diabetes, sd2 Hypertension, Congestive Heart Failure. Counseling: I had a detailed discussion with the patient and/or guardian regarding the historical points, exam findings, and any diagnostic results supporting the discharge/admit diagnosis, lab results, radiology results, the need for further work-up and treatment in the hospital. ED course: Discussed care with family at . Grandson found her. Last known well time was Saturday around 2:40pm when she spoke with her sister. Prior hx of CVA in the past per family as well. Not in window for TNK. Pt to be admitted for further management at this time.. 05/12 11:39 Order name: CBC with Diff; Complete Time: 12:38 sd2 05/12 11:39 Order name: Type And Screen; Complete Time: 13:13 sd2 05/12 11:39 Order name: CMP; Complete Time: 12:38 sd2 05/12 11:39 Order name: CK; Complete Time: 12:38 sd2 05/12 11:39 Order name: AMMONIA; Complete Time: 12:38 sd05/12 11:39 Order name: Procalcitonin; Complete Time: 13:13 sd05/12 11:39 Order name: PT-INR; Complete Time: 12:38 sd05/12 11:39 Order name: Ptt, Activated; Complete Time: 12:38 sd05/12 11:39 Order name: BNP; Complete Time: 12:38 sd05/12 11:39 Order name: Urinalysis w/ reflexes; Complete Time: 13:13 sd05/12 11:45 Order name: Troponin High Sensitivity; Complete Time: 12:38 sd05/12 17:07 Order name: Thyroid Stimulating Hormone EDMS 05/12 17:07 Order name: Urinalysis w/ reflexes EDMS 05/12 17:07 Order name: CBC with Automated Diff EDMS 05/12 17:07 Order name: CBC with Automated Diff EDMS 05/12 17:07 Order name: CBC with Automated Diff EDMS 05/12 17:07 Order name: CBC with Automated Diff EDMS 05/12 17:07 Order name: Comprehensive Metabolic Panel EDMS 05/12 17:07 Order name: Comprehensive Metabolic Panel EDMS 05/12 17:07 Order name: Comprehensive Metabolic Panel EDMS 05/12 17:07 Order name: Comprehensive Metabolic Panel EDMS 05/12 17:07 Order name: Lipid Profile EDMS 05/12 17:07 Order name: Lipid Profile EDMS 05/12 17:07 Order name: Magnesium EDMS 05/12 17:07 Order name: Magnesium EDMS 05/12 17:07 Order name: Magnesium EDMS 05/12 17:07 Order name: Magnesium EDMS 05/12 17:07 Order name: Phosphorus EDMS 05/12 17:07 Order name: Phosphorus EDMS 05/12 17:07 Order name: Phosphorus EDMS 05/12 17:07 Order name: Phosphorus EDMS 05/12 17:07 Order name: Protime (+INR) EDMS 05/12 17:07 Order name: Protime (+INR) EDMS 05/12 11:39 Order name: CT Traumagram (Head C Spine CAP W Con); Complete Time: 14:59 sd05/12 11:39 Order name: XRAY Chest (1 view); Complete Time: 14:59 sd2 05/12 11:39 Order name: XRAY Pelvis; Complete Time: 14:59 sd2 05/12 15:20 Order name: Brain Wo Cont EDAK 05/12 15:21 Order name: Carotid Artery Bilateral EDAK 05/12 17:15 Order name: Echo with Doppler EDMS 05/12 15:31 Order name: Social Service Consult EDAK 05/12 17:07 Order name: Patient Safety Orders EDAK 05/12 17:07 Order name: Physical Therapy Consult EDAK 05/12 11:39 Order name: Labs collected and sent; Complete Time: 12:24 sd2 05/12 11:39 Order name: Straight Cath - Urine; Complete Time: 12:24 sd2 05/12 11:45 Order name: EKG - Nurse/Tech; Complete Time: 13:19 sd2 Administered Medications: 12:23 Drug: NS 0.9% IV 500 ml IV at bolus once Route: IV; Rate: bolus; Site: left antecubital;ph 13:53 Follow up: Response: No adverse reaction; IV Status: Completed infusion ph Disposition: 15:02 Chart complete. sd2 Disposition Summary: 05/12/24 15:01 Hospitalization Ordered Notes: Hospitalization Status: Inpatient Admission sd2 Provider: Claudia Evans sd2 Condition: Stable sd2 Problem: new sd2 Symptoms: are unchanged sd2 Bed/Room Type: Standard sd2 Location: Telemetry/MedSurg (Inpatient)(05/12/24 21:07) Room Assignment: [facility](05/12/24 21:07) Diagnosis - Cerebrovascular accident sd2 - Altered mental status sd2 - Fall sd2 - Closed head injury sd2 Forms: - Medication Reconciliation Form sd2 - SBAR form sd2 - Leadership Thank You Letter sd2 Signatures: Dispatcher [employer] EDAK Cindi Batista Kimberly, RN RN kl Hall, Patricia, RN RN France Lee MD MD sd2 Corrections: (The following items were deleted from the chart) 11:40 11:40 CBC+H.LAB.BRZ ordered. EDMS EDMS 11:40 11:40 TYPE AND SCREEN+BB.LAB.BRZ ordered. EDMS EDMS 11:40 11:40 COMPREHENSIVE METABOLIC PANEL+C.LAB.BRZ ordered. EDMS EDMS 11:40 11:40 CREATINE PHOSPHOKINASE+C.LAB.BRZ ordered. EDMS EDMS 11:40 11:40 AMMONIA+C.LAB.BRZ ordered. EDMS EDMS 11:40 11:40 PCT+C.LAB.BRZ ordered. EDMS EDMS 11:40 11:40 PROTIME (+INR)+COAG.LAB.BRZ ordered. EDMS EDMS 11:40 11:40 PTT, ACTIVATED+COAG.LAB.BRZ ordered. EDMS EDMS 11:40 11:40 PROBNP+C.LAB.BRZ ordered. EDMS EDMS 11:40 11:40 Urinalysis+U.LAB.BRZ ordered. EDMS EDMS 12:53 12:52 PMHx: shingles (Stented artery); ph ph 17:08 15:01 Telemetry/MedSurg (Inpatient) sd2 bd 17:08 15:01 sd2 bd 21:07 17:08 [facility] ER HOLD bd kl 21:07 17:08 ERHOLD- bd kl
--- NOTE | 2024-05-12 15:02 | ER ---
Nurse's Notes [facility] Name: Ivet Calderon Age: 73 yrs Sex: Female : 1950 Arrival Date: 05/12/2024 Time: 11:18 Bed 2 Private MD: Diagnosis: Cerebrovascular accident;Altered mental status;Fall;Closed head injury Presentation: 05/12 11:45 Chief complaint: EMS states: Last seen by family on 05/10, they went to check on her ph today and found her on the ground, pt normally A\T\O x 4 but is altered, unable to say when she fell, large hematoma to R side of forehead w/ laceration that is scabbed over, abrasion to L elbow, VSS, [id number]. Coronavirus screen: Vaccine status: unknown. Ebola Screen: No symptoms or risks identified at this time. Initial Sepsis Screen: Does the patient meet any 2 criteria? No. Patient's initial sepsis screen is negative. Does the patient have a suspected source of infection? No. Patient's initial sepsis screen is negative. Risk Assessment: Do you want to hurt yourself or someone else? Patient reports no desire to harm self or others. Onset of symptoms was May 12, 2024. 11:45 Method Of Arrival: EMS: [facility] 11:45 Acuity: DORYS 2 ph 11:45 Care prior to arrival: IV initiated. 20 GA, in the left antecubital area. Mechanism of ph Injury: Fall. Trauma event details: Injury occurred in the [facility], Injury occurred: at home. Triage Assessment: 11:49 General: Appears in no apparent distress. Behavior is quiet. Pain: Unable to use pain ph scale. Patient is disoriented. Does not appear to understand pain scale. Neuro: Level of Consciousness is awake, obeys commands, confused, Oriented to person. Cardiovascular: Capillary refill < 3 seconds in bilateral fingers Patient's skin is warm and dry. Derm: Bruising that is dark purple, on left side of forehead. Injury Description: Abrasion sustained to left elbow Laceration sustained to left side of forehead. Trauma Activation: Not Applicable Physician: ED Physician; Name: ; Notified At: ; Arrived At: Physician: General Surgeon; Name: ; Notified At: ; Arrived At: Physician: Radiology; Name: ; Notified At: ; Arrived At: Physician: Respiratory; Name: ; Notified At: ; Arrived At: Physician: Lab; Name: ; Notified At: ; Arrived At: Historical: - Allergies: 12:52 Morphine; ph - Home Meds: 12:52 clopidogrel 75 mg Oral tablet daily [Active]; ph - PMHx: 12:52 Congestive heart failure; CVA (Unknown); diabetes mellitus; heart attack; ph Hypercholesterolemia; Hypertension; - PSHx: 12:52 Appendectomy; Cholecystectomy; open heart surgery; Stented artery; ph - Immunization history:: Adult Immunizations unknown. - Infectious Disease History:: unable to obtain. - Immunization history: Last tetanus immunization: unknown. - Social history:: Smoking status: unknown. Screenin:31 [facility] ED Fall Risk Assessment (Adult) History of falling in the last 3 months, ph including since admission No falls in past 3 months (0 pts) Confusion or Disorientation No (0 pts) Intoxicated or Sedated No (0 pts) Impaired Gait No (0 pts) Mobility Assist Device Used No (0 pt) Altered Elimination No (0 pt) Score/Fall Risk Level 0 - 2 = Low Risk Oriented to surroundings, Maintained a safe environment, Hourly rounding (assess needs \T\ fall precautionary measures) done. Abuse screen: Denies threats or abuse. Denies injuries from another. Nutritional screening: No deficits noted. Tuberculosis screening: No symptoms or risk factors identified. Primary Survey: 12:37 NO uncontrolled hemorrhage observed. A: The client is awake and alert. The airway is ph patent. The client is alert. Breathing/Chest: Spontaneous respiratory effort, equal unlabored respirations, breath sounds clear bilaterally, regular pattern, symmetrical chest rise and fall. Circulation: No external hemorrhage present. Regular and strong central pulse, skin warm/dry/normal color. Disability Pupils are equal, round, reactive to light and accommodation. Exposure/Environment: Obvious injury(ies) are noted at this time: hematoma and laceration to L side of forehead, abrasion to L elbow. 21:38 Reassessment Alertness and Airway: Airway Patent Breathing: Spontaneous respiratory kd3 effort, equal unlabored respirations, breath sounds clear bilaterally, regular pattern with symmetrical chest rise and fall. Circulation: No external hemorrhage noted. Regular and strong central pulse, skin warm/dry/normal color. Disability: Pupils Pupils are equal, round, reactive to light and accomodation. Assessment: 12:53 General: SEE TRIAGE ASSESSMENT. ph 13:52 Reassessment: Patient appears in no apparent distress at this time. Patient and/or ph family updated on plan of care and expected duration. Pain level reassessed. Pt awake but drowsy, oriented to person only, family at bedside, VSS. 15:42 Reassessment: Patient appears in no apparent distress at this time. No changes from ph previously documented assessment. Patient and/or family updated on plan of care and expected duration. Pain level reassessed. 16:30 Reassessment: Patient appears in no apparent distress at this time. No changes from ph previously documented assessment. Patient and/or family updated on plan of care and expected duration. Pain level reassessed. 21:36 General: Appears in no apparent distress. Behavior is drowsy. General: Non verbal/ kd3 Incontinent. Bruising noted to the left forehead. Band aid in place. Pt cleaned of incontinence. . Neuro: Level of Consciousness is awake, lethargic, Oriented to person. Cardiovascular: Patient's skin is warm and dry. Respiratory: Airway is patent Trachea midline Respiratory effort is even, unlabored, Respiratory pattern is regular, symmetrical. Vital Signs: 11:45 BP 171 / 65; Pulse 80; Resp 18; Temp 97.8; Pulse Ox 95% on R/A; ph 13:52 BP 149 / 55; Pulse 82; Resp 18; Pulse Ox 100% on 2 lpm NC; ph 15:00 BP 157 / 54; Pulse 90; Resp 18; Pulse Ox 100% on R/A; ph 15:42 BP 153 / 63; Pulse 72; Resp 18; Pulse Ox 100% on 2 lpm NC; ph 16:50 BP 183 / 54; Pulse 83; Resp 18; Pulse Ox 100% on 2 lpm NC; ph 21:39 BP 158 / 94; Pulse 88; Resp 16; Temp 97.9(A); Pulse Ox 98% on R/A; kd3 Vitals: 13:52 Cardiac Rhythm Assessment Regular. ph Jason Coma Score: 12:38 Eye Response: spontaneous(4). Motor Response: obeys commands(6). Verbal Response: ph confused(4). Total: 14. 15:00 Eye Response: spontaneous(4). Motor Response: obeys commands(6). Verbal Response: ph confused(4). Total: 14. 16:50 Eye Response: spontaneous(4). Motor Response: obeys commands(6). Verbal Response: ph confused(4). Total: 14. Trauma Score (Adult): 12:38 Eye Response: spontaneous(1); Verbal Response: confused(1); Motor Response: obeys ph commands(2); Systolic BP: > 89 mm Hg(4); Respiratory Rate: 10 to 29 per min(4); Jason Score: 14; Trauma Score: 12 15:00 Eye Response: spontaneous(1); Verbal Response: confused(1); Motor Response: obeys ph commands(2); Systolic BP: > 89 mm Hg(4); Respiratory Rate: 10 to 29 per min(4); [place] Score: 14; Trauma Score: 12 16:50 Eye Response: spontaneous(1); Verbal Response: confused(1); Motor Response: obeys ph commands(2); Systolic BP: > 89 mm Hg(4); Respiratory Rate: 10 to 29 per min(4); Jason Score: 14; Trauma Score: 12 ED Course: 11:27 Patient arrived in ED. ll1 11:28 France Lee MD is Attending Physician. sd2 11:43 Za Haro, RN is Primary Nurse. ph 11:49 Triage completed. ph 11:49 Arm band placed on Patient placed in an exam room, on a stretcher. ph 12:36 Initial lab(s) drawn, by ED staff, sent to lab. Urine collected: straight cath ph specimen, zenon colored, T\T\S collected, blood band applied to patient. Maintain EMS IV. Dressing intact. Good blood return noted. Site clean \T\ dry. Gauge \T\ site: 20 LAC. IV with fluids infusing freely, with good blood return, Flushed left antecubital with 5 ml normal saline. 12:36 Straight cath inserted, using sterile technique, 14 Fr. Specimen obtained. Returned ph zenon urine. 12:38 Patient has correct armband on for positive identification. Placed in gown. Bed in low ph position. Call light in reach. Side rails up X2. Client placed on continuous cardiac and pulse oximetry monitoring. NIBP monitoring applied. sas clinical programmer on. Cleaned of incontinence. Linen changed. 13:01 CT Traumagram (Head C Spine CAP W Con) In Process Unspecified. EDMS 13:52 XRAY Chest (1 view) In Process Unspecified. EDMS 13:52 XRAY Pelvis In Process Unspecified. EDMS 15:01 Claudia Evans MD is Hospitalizing Provider. sd2 15:44 Oxygen administration via nasal cannula \T\ 2L/min Response to oxygen therapy: symptoms ph improved. Thermoregulation: warm blanket given to patient. 16:18 Brain Wo Cont In Process Unspecified. EDMS 16:57 No provider procedures requiring assistance completed. Patient admitted, IV remains in ph place. 19:21 Primary Nurse role handed off by Za Haro RN ty 21:26 Valery Dale RN is Primary Nurse. kd3 21:38 Provided Education on: Need for admit . kd3 Administered Medications: 12:23 Drug: NS 0.9% IV 500 ml IV at bolus once Route: IV; Rate: bolus; Site: left antecubital;ph 13:53 Follow up: Response: No adverse reaction; IV Status: Completed infusion ph Medication: 13:53 VIS not applicable for this client. ph Outcome: 15:01 Decision to Hospitalize by Provider. sd2 21:38 Admitted to Med/surg kd3 21:38 Condition: stable 21:38 Discharge instructions given to patient, Instructed on the need for admit, 22:43 Patient left the ED. jb4 Signatures: Dispatcher [employer] EDZa Santana RN RN ph Bryson, James, RN RN jb4 Cecille Barfield RN RN 1 Valery Dale RN RN kd3 France Lee MD MD sd2 Ant Mcneal Corrections: (The following items were deleted from the chart) 12:53 12:52 PMHx: shingles (Stented artery); ph ph 21:41 21:39 BP 158 / 94; Pulse 88bpm; Resp 16bpm; Pulse Ox 98% RA; Temp 97.9F Oral; kd3 kd3
--- NOTE | 2024-05-12 15:28 | P.HP ---
Certification for Inpatient Patient admitted to: Inpatient With expected LOS: >2 Midnights Patient will require the following post-hospital care: Fdc Practitioner: I am a practitioner with admitting privileges, knowledge of patient current condition, hospital course, and medical plan of care. Services: Services provided to patient in accordance with Admission requirements found in Title 42 Section 412.3 of the Code of Federal Regulations <Nettie Mcnamara - Last Filed: 05/12/24 17:44> Patient History Date of Service: 05/12/24 Reason for admission: CVA/fall/AMS History of Present Illness: Ms. Calderon is a 73-year-old female with past medical history of hypertension, hyperlipidemia, CAD, and diabetes. She lives alone and is quite deconditioned. She was seen in the ER in February for shingles, returned in March and was found to have choledocholithiasis and transferred for surgery, after her surgery she was again admitted on 03/31/2024 for generalized weakness, dizziness, decreased ability to ambulate. alf for rehab was recommended but patient declined and was discharged home. She was brought to the emergency department today with altered mental status status post fall. Her family last saw her a couple of days ago and when checking on her today noted that she was on the floor of her apartment with blood in multiple areas around the room with a forehead laceration. Trauma workup in the emergency department shows a CT head with "no intracranial hemorrhage, mass effect, or edema. A new region of hypodensity and loss of freeman-white matter differentiation involves the right temporoparietal region extending towards the sylvian fissure. Stable small region of encephalomalacia in the left parietal lobe. No midline shift or abnormal fluid collection. The ventricles are normal in caliber and configuration for age. Basal cisterns are patent. Mastoid air cells and paranasal sinuses are clear. No acute skull fracture. Left temporal scalp swelling and hematoma." C-spine/chest/abdomen/pelvis with no significant acute findings. Vital signs stable. Ms. Calderon remains confused but awake. We will admit her for evaluation and treatment of a subacute ischemic stroke. MRI shows multiple foci of subacute stroke -embolic stroke Home medications list reviewed: Yes - Past Medical/Surgical History Has patient received pneumonia vaccine in the past: Yes (Continue to recommend SNF) Diabetic: Yes -: HTN -: NIDDM -: blurry vision both eyes -: [place] -: Macrocytic Anemia -: CAD/ [place] -: CVA -: asphagia -: Tubal Ligation -: Stent 2018 -: Eye Sx -: appendectomy -: CABG -: Cholecystectomy -: PCI Psychosocial/ Personal History: Lives at home alone. A friend from [place] loaned her a walker - Family History Mother -: Lung disease, Diabetes Father -: Diabetes, Cancer, Other (see notes) Notes: alzheimers - Social History Smoking Status: Unknown if ever smoked Alcohol use: No CD- Drugs: No Caffeine use: No Place of Residence: Home <Nettie Mcnamara Michele - Last Filed: 05/12/24 17:44> Date of Service: 05/12/24 <Claudia Evans - Last Filed: 05/12/24 18:33> Allergies morphine Adverse Reaction (Verified 04/02/23 13:26) Flushing/Nausea Home Medications: Aspirin Chewable [Aspirin Chewable*] 81 mg PO DAILY 07/27/19 Metformin HCl [Glucophage*] 850 mg PO BID 08/21/21 Atorvastatin Calcium [Lipitor] 40 mg PO BEDTIME #30 tab 06/29/22 Clopidogrel Bisulfate [Plavix*] 75 mg PO DAILY #30 tab 06/29/22 Cefdinir [Cefdinir*] 300 mg PO BID 04/01/24 Cetirizine HCl [All Day Allergy] 10 mg PO DAILY 04/01/24 Duloxetine [Cymbalta *] 20 mg PO DAILY 04/01/24 Gabapentin 100 mg PO TID PRN 04/01/24 Tramadol HCl [Ultram] 50 mg PO 1X PRN 04/01/24 Metoprolol Succinate [Toprol Xl*] 50 mg PO [id number] 60 Days #60 tab 04/03/24 Nifedipine Xl [Procardia XL*] 60 mg PO DAILY 60 Days #60 tab 04/03/24 Vitamin D [Drisdol*] 50,000 unit PO Q7D 49 Days #7 cap 04/03/24 Review of Systems 10-point ROS is otherwise unremarkable General: As per HPI Neurological: As per HPI <Nettie Mcnamara Michele - Last Filed: 05/12/24 17:44> Physical Examination - Studies Laboratory Data (last 24 hrs) 05/12/24 05/12/24 05/12/24 12:00 12:00 12:00 WBC 12.10 H Hgb 12.9 Hct 39.4 Plt Count 270 PT 13.1 H INR 1.18 APTT 26.5 Sodium 138 Potassium 3.9 BUN 15 Creatinine 1.04 H Glucose 167 H Total Bilirubin 0.7 AST 13 L ALT 18 Alkaline Phosphatase 85 <NaimaNettiewesley Bautista - Last Filed: 05/12/24 17:44> - Studies Laboratory Data (last 24 hrs) 05/12/24 05/12/24 05/12/24 12:00 12:00 12:00 WBC 12.10 H Hgb 12.9 Hct 39.4 Plt Count 270 PT 13.1 H INR 1.18 APTT 26.5 Sodium 138 Potassium 3.9 BUN 15 Creatinine 1.04 H Glucose 167 H Total Bilirubin 0.7 AST 13 L ALT 18 Alkaline Phosphatase 85 <Claudia Evans C - Last Filed: 05/12/24 18:33> Assessment and Plan - Plan AMS post fall Neurochecks every 4 hours, NIH stroke scale every shift check for infectious/metabolic source Safety procautions Consult PT/OT/Speech Consult Dr. Art Consult for SNF placement CVA MRI brain (shows subacute embolic stroke) ECHO Carotid doppler Folic acid continue statin continue plavix asa ec 81mg po daily Modified barium swallow study HTN continue home meds permissive HTN avoid hypotension HLD Atorvastatin 40mg po q hs DM monitor and trend SSI with mild ss VTE/GI prophylaxis lovenox 30mg sc q 1700/protonix Discharge Plan: [facility]pc - Advance Directives Does patient have a Living Will: No Does patient have a Durable POA for Healthcare: No <Nettie Mcnamara - Last Filed: 05/12/24 17:44> - Plan Pt piper nd examined. I agree with the note by the MEDICAL RECORD TRANSCRIBER. Pt is a 73 yo female with past medical history of hypertension, hyperlipidemia, CAD, and diabetes who presents with AMS s/p fall at home. Her family member found her on the floor. Pt sustained a left frontal scalp laceration. On admission, CT head shows a new region of hypodensity and loss of freeman-white matter differentiation involves the right temporoparietal region extending towards the sylvian fissure. Stable small region of encephalomalacia in the left parietal lobe. No midline shift or abnormal fluid collection. The ventricles are normal in caliber and configuration for age. CT spine/chest/abdomen/pelvis with no significant acute findings. MRI shows multiple foci of subacute stroke -embolic stroke. At bedside, pt is in NAD. A/P: Fall: Will continue fall precaution. Head laceration: Due to fall. Will continue wound care. AMS: CT head shows a region of hypodensity and loss of freeman-white matter differentiation involves the right temporoparietal region extending towards the sylvian fissure. MRI brain shows multiple foci of subacute stroke -embolic stroke. Consulted Neurology/ PT/OT. Will allow permissive htn. Continue aspirin, plavix and ststain. Will continue home meds for other chronic medical problems. <Claudia Evans - Last Filed: 05/12/24 18:33>
--- NOTE | 2024-05-12 18:05 | RAD REPORT ---
EXAM DESCRIPTION: MRI - Brain Wo Cont - 05/12/2024 4:28 pm CLINICAL HISTORY: eval CVA COMPARISON: Head CT with traumagram of the same day. Prior MRI of the brain 06/27/2022 TECHNIQUE: Multiplanar multisequence MRI of the brain performed without IV contrast. FINDINGS: Large region of diffusion restriction with corresponding low ADC signal in the right parie totemporal region extending to the posterior insula again seen. Other foci of subcortical diffusion r estriction seen throughout the rest of the right parietal lobe and centrum semiovale. A small region of diffusion restriction in the medial left thalamus. Single focus of diffusion restriction in the le ft subcortical frontal region, series 8, image 68. A left inferior cerebellar parasagittal focus of d iffusion restriction is seen on series 8, image 51. These are new since prior MRI exams, and all keanu espond to foci of T2/FLAIR hyperintensity. Left parietal region of encephalomalacia and adjacent gliosis and a small right occipital region of e ncephalomalacia are stable. Other linear foci of probable encephalomalacia along the bilateral cerebe llar hemispheres are stable. Patchy periventricular and deep white matter T2 hyperintensities are aga in seen, nonspecific but most suggestive of chronic small vessel ischemic changes. No evidence of acu te intracranial hemorrhage or abnormal extra-axial fluid collections. Mild diffuse parenchymal volume loss. Ventricular caliber overall stable. Midline structures are unre markable. Serpiginous susceptibility signal abnormality within the right operculum sulci posteriorly, may repre sent thrombosis within right M4 branches. Hemosiderin staining along the left parietal region of ence phalomalacia. Mild mass effect upon the sulci in the right parietotemporal region. No midline shift. Evidence of bilateral ocular lens replacements. Patchy right mastoid air cell opacification. Major vascular flow voids are preserved. Visualized paranasal sinuses are clear. IMPRESSION: Multifocal areas of diffusion restriction including a large territorial right parietotem poral region of involvement and scattered foci in the right parietal lobe, left thalamus, left fronta l lobe, and left inferior cerebellum. Findings suggest sequelae of subacute ischemia, likely of embol ic nature. Other chronic findings as above. The findings were communicated to Syncano on 05/12/2024 at 17:56 hours.
[2024-05-12] MEDS: ATORVASTATIN 40 MG TAB PO SCH (21:00)
[2024-05-13] MEDS: NA CHLORIDE 0.9% 1,000 ML IV SCH (00:26)
[2024-05-13] MEDS: METOPROLOL XL 50 MG TAB PO SCH (04:41)
[2024-05-13 07:32] LABS: Absolute Basophils 0.1 K/uL (0-0.5); Absolute Eosinophils 0.3 K/uL (0-0.5); Absolute Lymphocytes (CBC) 2.4 K/uL (0.7-4.9); Absolute Monocytes 1.3 K/uL (0.1-1.3); Absolute Neutrophil 9.6 K/uL (1.8-8.0); Basophils % 0.4 % (0-1.3); Eosinophils % 1.9 % (0-4.4); Hematocrit 35.8 % (36.0-45.0); Hemoglobin 12.2 g/dL (12.0-15.0); Lymphocytes % 17.6 % (15.3-44.8); MCH 33.6 pg (27.0-35.0); MCV 99.1 fL (80-100); MPV 8.8 fL (7.6-11.3); Monocytes % 9.5 % (3.3-12.3); Neutrophils % 70.6 % (41.7-73.7); Nucleated Red Blood Cells % 0.2 % (0-0); Platelets 257 thou/uL (152-406); RBC Red Blood Cell Count 3.62 M/uL (3.86-4.86); Red Cell Distribution Width 12.8 % (12.1-15.2)
[2024-05-13 07:41] LABS: PT Prothrombin Time 12.9 SECONDS (9.4-12.5); Protime INR 1.16
[2024-05-13 07:52] LABS: AST/SGOT 13 U/L (15-37); Albumin/Globulin Ratio 0.7 (1.1-1.8); Alkaline Phosphatase 77 U/L (45-117); Anion Gap 8.6 mEq/L (5.0-15.0); BUN Blood Urea Nitrogen 15 mg/dL (7-18); Bicarbonate 26 mEq/L (21-32); Bilirubin Total 0.8 mg/dL (0.2-1.0); Globulin 4.6 g/dL (2.3-3.5); Glomerular Filtration Rate 83 ml/min (=/>90); Glucose Level 127 mg/dL (74-106); HDL Cholesterol 36 mg/dL (40-60); LDL Cholesterol, Calculated 132 mg/dL (<130); LDL Cholesterol,Calc NonReport 132; Magnesium 2.1 mg/dL (1.6-2.4); Phosphorus 2.7 mg/dL (2.5-4.9); Potassium 3.6 mEq/L (3.5-5.1); Protein, Total 7.6 g/dL (6.4-8.2); Sodium Level 139 mEq/L (136-145)
[2024-05-13 08:06] LABS: ALT/SGPT < 14 U/L (13-56)
[2024-05-13] MEDS: ASPIRIN EC 81 MG TAB PO SCH (08:17)
[2024-05-13] MEDS: NIFEDIPINE XL 60 MG TABLET PO SCH (08:17)
[2024-05-13] MEDS: DULOXETINE 20 MG CAP PO SCH (08:17)
[2024-05-13] MEDS: HYDRALAZINE HCL 20 MG/ML VIAL IV PRN (08:17)
[2024-05-13] MEDS: CLOPIDOGREL 75 MG TABLET PO SCH (08:17)
[2024-05-13] MEDS: ENOXAPARIN 40 MG/0.4 ML SQ SCH (08:17)
[2024-05-13] MEDS: FOLIC ACID 1 MG TABLET PO SCH (08:17)
--- NOTE | 2024-05-13 08:31 | RAD REPORT ---
EXAM DESCRIPTION: US - CP - 05/12/2024 11:48 pm CLINICAL HISTORY: CVA COMPARISON: MRA Neck W/Wo Cont dated 06/27/2022; Head Brain Wo Cont dated 03/31/2024; Head C Spine Ca p W Con dated 05/12/2024 TECHNIQUE: Real-time sonographic grayscale, color duplex, and spectral wave Doppler evaluation of laina th carotid systems was performed. FINDINGS: Normal high resistance waveforms are noted in both external carotid arteries. The common c arotid arteries and internal carotid arteries show normal low resistance waveforms. Dmwm-vm-dihtszyv plaque burden is seen at the left carotid bulb and dense atherosclerotic plaque romelia en is seen at the right bulb. Peak systolic velocity 152 cm/sec along the right ICA, and 106 cm/sec a long the left ICA. ICA/CCA peak systolic ratio is 2.49 on the right and 1.65 on the left. Antegrade flow seen in both vertebral arteries. IMPRESSION: Dense right carotid bulb and proximal ICA atherosclerotic plaque, with 50-69% stenosis. Voga-zk-pjuxondw plaque burden along the left carotid bulb. Less than 50% stenosis of the left ICA. Preserved bilateral vertebral antegrade flow. Evaluation of carotid artery stenosis, if any, is reported based on consensus recommendations of the Society of Radiologists in Ultrasound (Bennie et al., Radiology, 2003)
--- NOTE | 2024-05-13 11:46 | EKG ---
Test Date: 2024-05-12 Test Time: 13:07:20 Porcelain Enamel Installer: PH MEASUREMENT RESULTS: Intervals: Rate: 79 NE: 160 QRSD: 76 QT: 398 QTc: 456 Tripp: P: 51 NE: 160 QRS: 61 T: 76 INTERPRETIVE STATEMENTS: Normal sinus rhythm Nonspecific ST and T wave abnormality Abnormal ECG Compared to ECG 03/31/2024 16:07:11 ST (T wave) deviation now present Myocardial infarct finding no longer present Electronically Signed On 05-13-24 11:43:31 CDT by Juan Bailey
--- NOTE | 2024-05-13 12:13 | P.PN ---
Subjective Date of Service: 05/13/24 Chief Complaint: CVA/fall/AMS Pt is resting comfortably in bed. She is sleepy but aroussable.She is jeison non- verbal. MRI brain shows evidence of cardio-embolic stroke. Will need SNF placement. No other complaint. Review of Systems is unable to be obtained Physical Examination - Vital Signs Temperature: 97.8 F Blood Pressure: 177/96 Pulse: 73 Respirations: 22 Pulse Ox (%): 92 - Physical Exam General: Alert, In no apparent distress, Oriented x1 HEENT: Atraumatic, Normocephalic Neck: Supple, 2+ carotid pulse no bruit Respiratory: Clear to auscultation bilaterally, Normal air movement Cardiovascular: No edema, Normal pulses, Regular rate/rhythm, Normal S1 S2 Capillary refill: <2 Seconds Gastrointestinal: Normal bowel sounds, Soft and benign, Non-distended Musculoskeletal: No clubbing, No swelling, No contractures Integumentary: No rashes, No breakdown, No significant lesion Neurological: Sensation intact Lymphatics: No axilla or inguinal lymphadenopathy - Studies Laboratory Data (last 24 hrs) 05/12/24 05/12/24 05/12/24 12:00 12:00 12:00 WBC 12.10 H Hgb 12.9 Hct 39.4 Plt Count 270 PT 13.1 H INR 1.18 APTT 26.5 Sodium 138 Potassium 3.9 BUN 15 Creatinine 1.04 H Glucose 167 H Total Bilirubin 0.7 AST 13 L ALT 18 Alkaline Phosphatase 85 Assessment And Plan - Plan Fall: Will continue fall precaution. Head laceration: Due to fall. Will continue wound care. AMS: CT head shows a region of hypodensity and loss of freeman-white matter differentiation involves the right temporoparietal region extending towards the sylvian fissure. MRI brain shows multiple foci of subacute stroke -embolic stroke. Consulted Neurology/ PT/OT. Will siscontinue permissive htn. Continue aspirin, plavix and ststain. f/u Echo and carotid ultrasound. will do swallow eval before oral intake HTN: continue home meds HLD: Atorvastatin 40mg po q hs DM II: Continue accuchek, SSI and ADA diet DVT ppx: lovenox Dispo: Pending hospital course. Will benefit from SNF placement.
--- NOTE | 2024-05-13 12:57 | ECHO ---
HEIGHT: 5 ft 4 in WEIGHT: 157 lb 0 oz DATE OF STUDY: 05/13/[address]: Nettie Mcnamara COMPLIANCE TESTER-BC 2-DIMENSIONAL: YES M.MODE: YES DOPPLER: YES COLOR FLOW: YES TDS: PORTABLE: DEFINITY: BUBBLE STUDY: DIAGNOSIS: CEREBRAL VASCULAR ACCIDENT CARDIAC HISTORY: CATHERIZATION: SURGERY: PROSTHETIC VALVE: PACEMAKER: MEASUREMENTS (cm) DIASTOLIC (NORMALS) SYSTOLIC (NORMALS) IVSd 0.8 (0.6-1.2) LA Diam 3.6 (1.9-4.0) LVEF 60-65% LVIDd 4.5 (3.5-5.7) LVIDs 3.2 (2.0-3.5) %FS 30% LVPWd 1.0 (0.6-1.2) Ao Diam 2.5 (2.0-3.7) 2 DIMENSIONAL ASSESSMENT: RIGHT ATRIUM: NORMAL LEFT ATRIUM: NORMAL RIGHT VENTRICLE: NORMAL LEFT VENTRICLE: NORMAL TRICUSPID VALVE: KASI MITRAL VALVE: NORMAL PULMONIC VALVE: NORMAL AORTIC VALVE: CALCIFIED PERICARDIAL EFFUSION: NONE AORTIC ROOT: NORMAL LEFT VENTRICULAR WALL MOTION: NORMAL DOPPLER/COLOR FLOW: NORMAL COMMENTS: 1. NORMAL LEFT VENTRICULAR SYSTOLIC FUNCTION, EJECTION FRACTION 60-65%, NORMAL WALL MOTION 2. NORMAL DIASTOLIC FUNCTION 3. CALCIFIED AORTIC VALVE, NO STENOSIS TECHNOLOGIST: REGINA LONDONO
[2024-05-14 06:04] LABS: Absolute Basophils 0.1 K/uL (0-0.5); Absolute Eosinophils 0.2 K/uL (0-0.5); Absolute Lymphocytes (CBC) 2.3 K/uL (0.7-4.9); Absolute Monocytes 1.2 K/uL (0.1-1.3); Absolute Neutrophil 10.4 K/uL (1.8-8.0); Basophils % 0.4 % (0-1.3); Eosinophils % 1.3 % (0-4.4); Hematocrit 38.2 % (36.0-45.0); Hemoglobin 12.8 g/dL (12.0-15.0); MCH 33.5 pg (27.0-35.0); MCHC 33.5 g/dL (32.0-36.0); MCV 99.9 fL (80-100); Monocytes % 8.5 % (3.3-12.3); Neutrophils % 73.8 % (41.7-73.7); Platelets 257 thou/uL (152-406); RBC Red Blood Cell Count 3.82 M/uL (3.86-4.86); Red Cell Distribution Width 12.9 % (12.1-15.2)
[2024-05-14 06:19] LABS: AST/SGOT 17 U/L (15-37); Albumin 3.1 g/dL (3.4-5.0); Albumin/Globulin Ratio 0.7 (1.1-1.8); Alkaline Phosphatase 76 U/L (45-117); Anion Gap 12.3 mEq/L (5.0-15.0); BUN Blood Urea Nitrogen 11 mg/dL (7-18); Bicarbonate 23 mEq/L (21-32); Bilirubin Total 0.9 mg/dL (0.2-1.0); Globulin 4.6 g/dL (2.3-3.5); Glomerular Filtration Rate 95 ml/min (=/>90); Glucose Level 136 mg/dL (74-106); Magnesium 1.9 mg/dL (1.6-2.4); Phosphorus 2.5 mg/dL (2.5-4.9); Potassium 3.3 mEq/L (3.5-5.1); Protein, Total 7.7 g/dL (6.4-8.2); Sodium Level 140 mEq/L (136-145)
[2024-05-14 06:23] LABS: ALT/SGPT < 14 U/L (13-56)
[2024-05-14] MEDS: KCL 20 MEQ/100 mL IVPB 20 MEQ/100 ML BAG IV SCH (08:28)
[2024-05-14] MEDS: POTASSIUM PHOS IN 0.9 % NACL 15 MMOL/250 ML BAG IV ONE (08:28)
--- NOTE | 2024-05-14 12:28 | P.PN ---
Subjective Date of Service: 05/14/24 Chief Complaint: CVA/fall/AMS Pt is resting comfortably in bed. She is sleepy, but aroussable. She started mumbling this am. Her daughter reorts suicidal ideation and severe depression. We consulted Psych. MRI brain shows evidence of cardio-embolic stroke. Will need SNF placement. No other complaint. Review of Systems is unable to be obtained Physical Examination - Vital Signs Temperature: 97.9 F Blood Pressure: 93/81 Pulse: 97 Respirations: 15 Pulse Ox (%): 96 - Physical Exam General: Alert, In no apparent distress, Confused HEENT: Atraumatic, Normocephalic, PERRLA Neck: Supple, 2+ carotid pulse no bruit, JVD not distended Respiratory: Clear to auscultation bilaterally, Normal air movement Cardiovascular: No edema, Normal pulses, Regular rate/rhythm, Normal S1 S2 Capillary refill: <2 Seconds Gastrointestinal: Normal bowel sounds, Soft and benign, Non-distended Musculoskeletal: No clubbing, No swelling, No contractures Integumentary: No rashes, No breakdown, No significant lesion Neurological: Normal tone, Sensation intact Lymphatics: No axilla or inguinal lymphadenopathy Assessment And Plan - Plan Fall: Will continue fall precaution. Head laceration: Due to fall. Will continue wound care. AMS: CT head shows a region of hypodensity and loss of freeman-white matter differentiation involves the right temporoparietal region extending towards the sylvian fissure. MRI brain shows multiple foci of subacute stroke -embolic stroke. Consulted Neurology/ PT/OT. Will siscontinue permissive htn. Continue aspirin, plavix and ststain. f/u Echo and carotid ultrasound. will do swallow eval before oral intake Suicidal ideation and Possible severe depression: Pt told one of her family members that she did not want to live any more. Her daughter reports that she saw broken figurines all over her house. She hit her head with some of the figurines. We consulted Psych. HTN: continue home meds HLD: Atorvastatin 40mg po q hs DM II: Continue accuchek, SSI and ADA diet DVT ppx: lovenox Dispo: Pending hospital course. Will benefit from SNF placement.
--- NOTE | 2024-05-14 15:14 | RAD REPORT ---
EXAM DESCRIPTION: Pérez Single View05/14/2024 2:47 pm CLINICAL HISTORY: Chest pain COMPARISON: April 2024 FINDINGS: The lungs appear clear of acute infiltrate. The heart is mildly enlarged. Postsurgical changes involve the chest. IMPRESSION: No acute abnormalities displayed
[2024-05-14] MEDS: KCL 20 MEQ/100 mL IVPB 20 MEQ/100 ML BAG IV ONE (20:07)
--- NOTE | 2024-05-15 00:31 | CON ---
Date of Consultation: 05/14/2024 Chief Complaint: The patient reportedly has a stroke, admitted with altered mental status and multip le falls. History Of Present Illness: Ms. Calderon is a 73-year-old patient with hypertension, dyslipidemia, angela nary artery disease, diabetes mellitus, who was brought to the hospital emergency room after she was found by her family, she lives alone apparently 2 days after last known good contact. She was found on the floor and there were multiple areas of blood around the room and a forehead laceration. She h ad a trauma series scan which showed no intracranial hemorrhage, mass effect, or edema. There was a new region of hypodensity, loss of freeman-white distinction on the CT scan involving the right temporop arietal region extending towards the sylvian fissure. However, brain MRI identified multiple areas o f diffuse restriction including a large territorial right parietotemporal region of involvement with scattered foci in the right parietal lobe, left thalamus, left frontal lobe, left inferior cerebellum , finding suggestive of sequelae of subacute infarct, likely of embolic origin. The extensive stroke s in multiple territories, left and right and mid brain structures including the frontal lobe, inferi or cerebellum are likely significant contributing factors to an instant multi-infarct dementia. Her chest x-ray did show lungs were clear, but elevation of the right hemidiaphragm. There is median sternotomy identified. No pneumothorax or effusion. Repeat chest x-ray today again shows no acute abnormalities. Lungs were clear. Her white blood cell count; however, is elevated to 14,000 with 73 .8% neutrophils. Chemistries show low was initially 3.3, corrected to 3.7, glucose range up to 148. Liver function studies were normal. Her cholesterol panel shows slightly elevated LDL of 132 and low HDL of 36. Urinalysis, 1+ urobilinogen, 2+ ketones, 3+ mucus, trace protein, turbid cla rity. She was treated with Plavix 75 mg daily, Lipitor 40 mg at bedtime, aspirin 81 mg daily, and gi nicho Lovenox, folic acid, Apresoline, Toprol and nifedipine to manage her blood pressures. She did khalil ve admission elevated blood pressure at max of 194. Past Medical History: As noted. Allergies: MORPHINE. Medications: Reviewed. Laboratory Studies: Reported. Review of Systems: The patient is very drowsy, not responding, appears to be asleep but would respond in terms of stimul us response by stimulating the feet. She would withdraw the feet, but no verbal communication, arms crossed and turned to the right side and is breathing normally. Physical Examination: Vital Signs: Blood pressure 171/112 down to 137/59, pulse ranged 78 to 97, respiratory rate 15 to 18 , temperature 98.7. General: Ms. Calderon is sliding in bed on the right side, as noted arms crossed across her chest. She is breathing normally. HEENT: She appears to have healing wound on forehead. Otherwise, normocephalic, atraumatic. Sclera e anicteric. Oropharynx appear moist. Neck: Supple. Chest: Good air movement. Extremities: No significant cyanosis, clubbing noted. It is noted that her echocardiogram shows a normal left ventricular ejection fraction. No atrial fib rillation, normal wall motion, and EKG also was a sinus rhythm without atrial fibrillation or flutter or abnormal rhythm. In terms of rest of examination, patient again not up and mobile and unable to do a sensory examination. She was evaluated or there was an attempt was made to do physical therapy this morning around 11:43 and with the physical therapist, she was able to answer what when her name was called and she said I am doing when asked by the physical therapist how she is feeling and respon ded to no when asked by the physical therapist to move her legs. The patient again was not able to g benedict any meaningful communication. There was an attempt at speech pathology to evaluate the patient. She was somnolent and did not follow commands to be able to give an evaluation. The patient was paul med to be not alert enough to follow again any oral intake and she was continued to be nothing by deena th until she was more alert and could be further evaluated. The therapist noted that when she attemp zoë to have the patient open up the mouth for bedside swallow, the patient in the morning when it was done, refused to open her mouth or to take any oral intake such as ice chips. Assessment: Ms. Calderon is a 73-year-old patient with strokes in multiple vascular territories subacut e in nature, likely from a cardioembolic source. The patient potentially has a multi-infarct dementi a likely from showering of multiple strokes. She has risk factors including hypertension, dyslipidem ia, and a potential infection with elevated white count. Plan: Continue supportive care. Nothing by mouth until the patient is more awake and alert. The [place] marla's family will be informed of the patient's condition and will have to make a determination abou t feeding at this point as patient is unable to protect the airway and have to be done by PEG tube. However, given the patient's significant number of strokes in vascular territories and difficulty wit h her ability to follow commands, the family may potentially consider hospice care at this point. Ho wever, it is possible there may be some meaningful recovery if she is able to swallow and have some f orm of meaningful communication and she is more alert throughout this acute phase of her stroke. At this point, continue supportive care. MARVIN/RIANNA Voice ID: [id number] Report ID: [id number]
[2024-05-15 06:09] LABS: Absolute Eosinophils 0.1 K/uL (0-0.5); Absolute Lymphocytes (CBC) 1.9 K/uL (0.7-4.9); Absolute Monocytes 0.8 K/uL (0.1-1.3); Absolute Neutrophil 8.1 K/uL (1.8-8.0); Basophils % 0.4 % (0-1.3); Hematocrit 31.3 % (36.0-45.0); Hemoglobin 10.9 g/dL (12.0-15.0); MCH 34.8 pg (27.0-35.0); MCV 99.5 fL (80-100); MPV 8.3 fL (7.6-11.3); Monocytes % 7.3 % (3.3-12.3); Neutrophils % 74.3 % (41.7-73.7); Nucleated Red Blood Cells % 0.1 % (0-0); Platelets 245 thou/uL (152-406); RBC Red Blood Cell Count 3.15 M/uL (3.86-4.86)
[2024-05-15 06:31] LABS: AST/SGOT 13 U/L (15-37); Albumin 2.1 g/dL (3.4-5.0); Albumin/Globulin Ratio 0.6 (1.1-1.8); Alkaline Phosphatase 57 U/L (45-117); BUN Blood Urea Nitrogen 9 mg/dL (7-18); Bicarbonate 20 mEq/L (21-32); Bilirubin Total 0.7 mg/dL (0.2-1.0); Globulin 3.7 g/dL (2.3-3.5); Glomerular Filtration Rate 107 ml/min (=/>90); Glucose Level 107 mg/dL (74-106); Magnesium 1.5 mg/dL (1.6-2.4); Phosphorus 2.1 mg/dL (2.5-4.9); Protein, Total 5.8 g/dL (6.4-8.2); Sodium Level 143 mEq/L (136-145)
[2024-05-15 06:44] LABS: ALT/SGPT < 14 U/L (13-56)
[2024-05-15] MEDS: KCL 20 MEQ/100 mL IVPB 20 MEQ/100 ML BAG IV SCH (07:39)
[2024-05-15] MEDS: POTASSIUM CL SA 10 MEQ TAB PO SCH (09:00)
[2024-05-15] MEDS: CALCIUM GLUCONATE 1 GM IVPB 1 GM/50 ML BAG IV ONE (09:09)
[2024-05-15] MEDS: Magnesium Sulfate 2gm IVPB 2 G/50 ML BAG IV ONE (10:00)
--- NOTE | 2024-05-15 11:13 | P.PN ---
Subjective Date of Service: 05/15/24 Chief Complaint: CVA/fall/AMS Pt is resting comfortably in bed. She is sleepy, but aroussable. She is not talking this am. Her daughter reports suicidal ideation and severe depression. We consulted Psych. MRI brain shows evidence of cardio-embolic stroke. Will need SNF placement. No other complaint. Review of Systems is unable to be obtained Physical Examination - Vital Signs Temperature: 98.5 F Blood Pressure: 141/58 Pulse: 85 Respirations: 19 Pulse Ox (%): 95 - Physical Exam General: Alert, In no apparent distress, Confused HEENT: Atraumatic, Normocephalic Neck: Supple, 2+ carotid pulse no bruit, JVD not distended Respiratory: Clear to auscultation bilaterally, Normal air movement Cardiovascular: No edema, Normal pulses, Regular rate/rhythm, Normal S1 S2 Capillary refill: <2 Seconds Gastrointestinal: Normal bowel sounds, Soft and benign, Non-distended Musculoskeletal: No clubbing, No swelling Integumentary: No rashes, No breakdown, No significant lesion Neurological: Sensation intact Lymphatics: No axilla or inguinal lymphadenopathy Assessment And Plan - Plan Fall: Will continue fall precaution. Head laceration: Due to fall. Will continue wound care. Hypokalemia: K is 3. Will replete and monitor. AMS: CT head shows a region of hypodensity and loss of freeman-white matter differentiation involves the right temporoparietal region extending towards the sylvian fissure. MRI brain shows multiple foci of subacute stroke -embolic stroke. Consulted Neurology/ PT/OT. Will is continue permissive htn. Continue aspirin, plavix and ststain. f/u Echo and carotid ultrasound. will do swallow eval before oral intake Suicidal ideation and Possible severe depression: Pt told one of her family members that she did not want to live any more. Her daughter reports that she saw broken figurines all over her house. She hit her head with some of the figurines. We consulted Psych. HTN: continue home meds HLD: Atorvastatin 40mg po q hs DM II: Continue accuchek, SSI and ADA diet DVT ppx: lovenox Nutrition: Will start D5 1/2NS at 50 cc/hr. Dispo: Pending hospital course. Will benefit from SNF placement.
[2024-05-15] MEDS: POTASSIUM PHOS IN 0.9 % NACL 15 MMOL/250 ML BAG IV ONE (11:48)
[2024-05-15] MEDS: D5 0.45 NS 1,000 ML IV SCH (11:48)
--- NOTE | 2024-05-15 18:21 | RAD REPORT ---
EXAM DESCRIPTION: RAD - Barium Swallow Modified - 05/15/2024 2:09 pm CLINICAL HISTORY: Embolic stroke COMPARISON: None. TECHNIQUE: The patient was given liquid, semi-solid and solid forms of barium. Lateral view fluorosc opic imaging was performed in conjunction with speech pathology service. Fluoro time: 6:20 minutes Skin dose: 44.53 mGy FINDINGS: Laryngeal penetration, subsequently cleared. Delayed onset of swallowing. Swelling in the vallecula with spillage. No annia aspiration was noted. IMPRESSION: Laryngeal penetration with no annia aspiration noted at this time. Please refer to [facility] pathology report for additional details.
[2024-05-16 07:47] VITALS: BMI 26.8
[2024-05-16 08:35] LABS: Anion Gap 9.5 mEq/L (5.0-15.0); Magnesium 2.2 mg/dL (1.6-2.4); Phosphorus 2.5 mg/dL (2.5-4.9); Potassium 3.5 mEq/L (3.5-5.1)
--- NOTE | 2024-05-16 11:36 | P.PN ---
Subjective Date of Service: 05/16/24 Chief Complaint: CVA/fall/AMS Pt is resting comfortably in bed. She is awake but not following verbal commands. Her daughter reports suicidal ideation and severe depression. We consulted Psych. MRI brain shows evidence of cardio-embolic stroke. Will need SNF placement. No other complaint. Review of Systems is unable to be obtained Physical Examination - Vital Signs Temperature: 97.5 F Blood Pressure: 146/65 Pulse: 86 Respirations: 12 Pulse Ox (%): 98 - Physical Exam General: Alert, In no apparent distress, Confused HEENT: Atraumatic, Normocephalic, PERRLA Neck: Supple, 2+ carotid pulse no bruit, JVD not distended Respiratory: Clear to auscultation bilaterally, Normal air movement Cardiovascular: No edema, Normal pulses, Regular rate/rhythm, Normal S1 S2 Capillary refill: <2 Seconds Gastrointestinal: Normal bowel sounds, Soft and benign, Non-distended Musculoskeletal: No clubbing, No swelling, No contractures Integumentary: No rashes, No breakdown, No significant lesion Neurological: Normal tone, Sensation intact Lymphatics: No axilla or inguinal lymphadenopathy Assessment And Plan - Plan Fall: Will continue fall precaution. Head laceration: Due to fall. Will continue wound care. Hypokalemia: K is 3.5. Will monitor. AMS: CT head shows a region of hypodensity and loss of freeman-white matter differentiation involves the right temporoparietal region extending towards the sylvian fissure. MRI brain shows multiple foci of subacute stroke -embolic stroke. Consulted Neurology/ PT/OT. Will is discontinue permissive htn. Continue aspirin, plavix and statin. f/u Echo and carotid ultrasound. will do swallow eval before oral intake. Neurology talked to pt's family about getting PEG tube or comfort care. The family will let us know their decision on Saturday. Suicidal ideation and Possible severe depression: Pt told one of her family members that she did not want to live any more. Her daughter reports that she saw broken figurines all over her house. She hit her head with some of the figurines. We consulted Psych. HTN: continue home meds HLD: Atorvastatin 40mg po q hs DM II: Continue accuchek, SSI and ADA diet DVT ppx: lovenox Nutrition: Will start D5 1/2NS at 50 cc/hr. Pt is NPO. Dispo: Pending hospital course. Will benefit from SNF placement.
[2024-05-16 15:04] LABS: Absolute Basophils 0.1 K/uL (0-0.5); Absolute Eosinophils 0.3 K/uL (0-0.5); Absolute Lymphocytes (CBC) 2.4 K/uL (0.7-4.9); Absolute Neutrophil 7.8 K/uL (1.8-8.0); Basophils % 0.4 % (0-1.3); Eosinophils % 2.8 % (0-4.4); Hematocrit 41.5 % (36.0-45.0); Hemoglobin 13.7 g/dL (12.0-15.0); Lymphocytes % 20.4 % (15.3-44.8); MCH 33.1 pg (27.0-35.0); MCHC 33.1 g/dL (32.0-36.0); MCV 99.9 fL (80-100); Monocytes % 8.7 % (3.3-12.3); Neutrophils % 67.7 % (41.7-73.7); Nucleated Red Blood Cells % 0.1 % (0-0); Platelets 253 thou/uL (152-406); RBC Red Blood Cell Count 4.15 M/uL (3.86-4.86); Red Cell Distribution Width 13.2 % (12.1-15.2)
[2024-05-16] MEDS: KCL 20 MEQ/100 mL IVPB 20 MEQ/100 ML BAG IV SCH (19:00)
--- NOTE | 2024-05-17 09:07 | P.PN ---
Subjective Date of Service: 05/17/24 Chief Complaint: CVA/fall/AMS Pt is resting comfortably in bed. She was sleeping when I saw her. Her daughter reports suicidal ideation and severe depression. We consulted Psych. MRI brain shows evidence of cardio-embolic stroke. Will need SNF placement. Her family members will tell us their decision about comfort care or PEG tube placement tomorrow. No other complaint. Review of Systems is unable to be obtained Physical Examination - Vital Signs Temperature: 97.7 F Blood Pressure: 133/57 Pulse: 70 Respirations: 12 Pulse Ox (%): 97 - Physical Exam General: Alert, In no apparent distress, Oriented x3 HEENT: Atraumatic, Normocephalic, PERRLA Neck: Supple, 2+ carotid pulse no bruit, JVD not distended Respiratory: Clear to auscultation bilaterally, Normal air movement, Diminished Cardiovascular: No edema, Normal pulses, Regular rate/rhythm Capillary refill: <2 Seconds Gastrointestinal: Normal bowel sounds, Soft and benign, Non-distended Musculoskeletal: No clubbing, No swelling Integumentary: No rashes, No breakdown, No significant lesion Neurological: Normal gait, Normal speech, Normal strength at 5/5 x4 extr Lymphatics: No axilla or inguinal lymphadenopathy Assessment And Plan - Plan Fall: Will continue fall precaution. Head laceration: Due to fall. Will continue wound care. Hypokalemia: K is 3.5. Will monitor. AMS: CT head shows a region of hypodensity and loss of freeman-white matter differentiation involves the right temporoparietal region extending towards the sylvian fissure. MRI brain shows multiple foci of subacute stroke -embolic stroke. Consulted Neurology/ PT/OT. Will is discontinue permissive htn. Continue aspirin, plavix and statin. f/u Echo and carotid ultrasound. will do swallow eval before oral intake. Neurology talked to pt's family about getting PEG tube or comfort care. The family will let us know their decision on Saturday. Suicidal ideation and Possible severe depression: Pt told one of her family members that she did not want to live any more. Her daughter reports that she saw broken figurines all over her house. She hit her head with some of the figurines. We consulted Psych. HTN: continue home meds HLD: Atorvastatin 40mg po q hs DM II: Continue accuchek, SSI and ADA diet DVT ppx: lovenox Nutrition: Will start D5 1/2NS at 50 cc/hr. Pt is NPO. Dispo: Pending hospital course. Will benefit from SNF placement.
[2024-05-18] MEDS: LABETALOL 20 MG/4ML SYRINGE IV ONE (01:56)
[2024-05-18 02:13] LABS: Absolute Basophils 0.1 K/uL (0-0.5); Absolute Eosinophils 0.3 K/uL (0-0.5); Absolute Monocytes 1.3 K/uL (0.1-1.3); Absolute Neutrophil 9.5 K/uL (1.8-8.0); Basophils % 0.6 % (0-1.3); Eosinophils % 2.3 % (0-4.4); Hematocrit 36.5 % (36.0-45.0); Hemoglobin 12.5 g/dL (12.0-15.0); Lymphocytes % 20.9 % (15.3-44.8); MCH 33.9 pg (27.0-35.0); MCHC 34.3 g/dL (32.0-36.0); MCV 98.9 fL (80-100); Neutrophils % 67.2 % (41.7-73.7); Nucleated Red Blood Cells % 0.1 % (0-0); Platelets 309 thou/uL (152-406); RBC Red Blood Cell Count 3.69 M/uL (3.86-4.86); Red Cell Distribution Width 13.2 % (12.1-15.2)
[2024-05-18 02:19] LABS: Anion Gap 7.1 mEq/L (5.0-15.0); Magnesium 1.8 mg/dL (1.6-2.4); Phosphorus 2.7 mg/dL (2.5-4.9); Potassium 3.1 mEq/L (3.5-5.1)
[2024-05-18] MEDS: KCL 20 MEQ/100 mL IVPB 20 MEQ/100 ML BAG IV SCH (02:40)
[2024-05-18] MEDS: MAGNESIUM SULFATE 1 gm IVPB 1 GM/100 ML BAG IV ONE (02:40)
[2024-05-18] MEDS: POTASSIUM CL SA 10 MEQ TAB PO SCH (08:00)
--- NOTE | 2024-05-18 08:54 | P.PN ---
Date of Service: 05/18/24 Subjective N.p.o. pending PEG placement Review of Systems is unable to be obtained Physical Examination - Vital Signs Reviewed - Physical Exam General: Alert, In no apparent distress, drowsy HEENT: Atraumatic, Normocephalic, PERRLA Neck: Supple, 2+ carotid pulse no bruit, JVD not distended Respiratory: Clear to auscultation bilaterally, Normal air movement, Diminished Cardiovascular: No edema, Normal pulses, Regular rate/rhythm Capillary refill: <2 Seconds Gastrointestinal: Normal bowel sounds, Soft and benign, Non-distended Musculoskeletal: No clubbing, No swelling Integumentary: No rashes, No breakdown, No significant lesion Neurological: Normal gait, Normal speech, Normal strength at 5/5 x4 extr Lymphatics: No axilla or inguinal lymphadenopathy ssessment And Plan - Plan multiple foci of subacute stroke -embolic stroke Dysphagia Per neurology extensive strokes in multiple territories, left and right and mid brain structures including the frontal lobe, inferior cerebellum are likely significant contributing factors to an instant multi-infarct dementia. AMS: CT head shows a region of hypodensity and loss of freeman-white matter differentiation involves the right temporoparietal region extending towards the sylvian fissure. MRI brain shows multiple foci of subacute stroke -embolic stroke. Consulted Neurology/ PT/OT. Will is discontinue permissive htn. Continue aspirin, plavix and statin. f/u Echo and carotid ultrasound. will do swallow eval before oral intake. Neurology talked to pt's family about getting PEG tube or comfort care. The family will let us know their decision on Saturday. Swallow eval-n.p.o. pending PEG placed Fall: Head laceration: Due to fall. Will continue wound care. Will continue fall precaution. Hypokalemia: K is 3.5. Will monitor. Suicidal ideation and Possible severe depression: Pt told one of her family members that she did not want to live any more. Her daughter reports that she saw broken figurines all over her house. She hit her head with some of the figurines. We consulted Psych. HLD: HTN: continue home meds Atorvastatin 40mg po q hs DM II: Continue accuchek, SSI and ADA diet DVT ppx: lovenox Nutrition: Will start D5 1/2NS at 50 cc/hr. Pt is NPO. Dispo: Pending hospital course. Will benefit from SNF placement. Versus hospice <Elizabeth Dozier - Last Filed: 05/18/24 08:44> Pt seen and examined. I agree with the note by the SPRAYER MACHINE. Pt is resting comfortably in bed. His family will let us know their decision whether to pursue comfort care or place a PEG tube. Continue home meds for other chronic medical problems. <Claudia Evans - Last Filed: 05/18/24 10:21>
[2024-05-18] MEDS: HYDRALAZINE HCL 20 MG/ML VIAL IV PRN (10:19)
--- NOTE | 2024-05-18 16:57 | EKG ---
Test Date: 2024-05-18 Test Time: 01:33:34 Supervisor Grinding: Jona SANDERS MEASUREMENT RESULTS: Intervals: Rate: 128 OH: 164 QRSD: 64 QT: 222 QTc: 324 [place]: P: 28 OH: 164 QRS: 97 T: 173 INTERPRETIVE STATEMENTS: Sinus tachycardia with premature atrial complexes with aberrant conduction Rightward axis ST & T wave abnormality, consider inferior ischemia Abnormal ECG Compared to ECG 05/12/2024 13:07:20 Atrial premature complex(es) now present Aberrant conduction of supraventricular beat(s) now present Right-axis deviation now present Possible ischemia now present Sinus rhythm no longer present ST (T wave) deviation still present Electronically Signed On 05-18-24 16:56:35 CDT by Arnaldo Tan
[2024-05-19 06:19] LABS: Potassium 3.7 mEq/L (3.5-5.1)
[2024-05-19 06:20] LABS: Anion Gap 3.7 mEq/L (5.0-15.0)
[2024-05-19 06:22] LABS: Absolute Eosinophils 0.3 K/uL (0-0.5); Absolute Lymphocytes (CBC) 1.7 K/uL (0.7-4.9); Absolute Neutrophil 6.8 K/uL (1.8-8.0); Basophils % 0.4 % (0-1.3); Eosinophils % 2.6 % (0-4.4); Hematocrit 33.9 % (36.0-45.0); Hemoglobin 11.4 g/dL (12.0-15.0); Lymphocytes % 17.9 % (15.3-44.8); MCH 33.7 pg (27.0-35.0); MCHC 33.7 g/dL (32.0-36.0); MCV 99.9 fL (80-100); MPV 8.8 fL (7.6-11.3); Monocytes % 9.8 % (3.3-12.3); Neutrophils % 69.3 % (41.7-73.7); Platelets 293 thou/uL (152-406); Red Cell Distribution Width 13.3 % (12.1-15.2)
[2024-05-19] MEDS: KCL 20 MEQ/100 mL IVPB 20 MEQ/100 ML BAG IV SCH (08:53)
--- NOTE | 2024-05-19 09:29 | P.PN ---
Date of Service: 05/19/24 Subjective speech following, patient did not participate with speech therapy today Plan for family meeting tomorrow for discharge plan, PEG versus Review of Systems is unable to be obtained Physical Examination - Vital Signs Reviewed - Physical Exam General: Alert, In no apparent distress, drowsy, eyes open to verbal HEENT: Atraumatic, Normocephalic, PERRLA Neck: Supple, 2+ carotid pulse no bruit, JVD not distended Respiratory: Clear to auscultation bilaterally, Normal air movement, Diminished Cardiovascular: No edema, Normal pulses, Regular rate/rhythm Capillary refill: <2 Seconds Gastrointestinal: Normal bowel sounds, Soft and benign, Non-distended Musculoskeletal: No clubbing, No swelling, moderate generalized weakness Integumentary: No rashes, No breakdown, No significant lesion Neurological: Normal gait, Normal speech, moderate generalized weakness, LUE weakness Lymphatics: No axilla or inguinal lymphadenopathy ssessment And Plan - Plan multiple foci of subacute stroke -embolic stroke Dysphagia Per neurology extensive strokes in multiple territories, left and right and mid brain structures including the frontal lobe, inferior cerebellum are likely significant contributing factors to an instant multi-infarct dementia. AMS: CT head shows a region of hypodensity and loss of freeman-white matter differentiation involves the right temporoparietal region extending towards the sylvian fissure. MRI brain shows multiple foci of subacute stroke -embolic stroke. Consulted Neurology/ PT/OT. Will is discontinue permissive htn. Continue aspirin, plavix and statin. f/u Echo and carotid ultrasound. will do swallow eval before oral intake. Neurology talked to pt's family about getting PEG tube or comfort care. The family will let us know their decision on Saturday. Swallow eval-n.p.o. surgery consulted, pending PEG placement Fall: likely secondary to acute cva Head laceration: Due to fall. Will continue wound care. Will continue fall precaution. Hypokalemia: K is 3.5. Will monitor. Suicidal ideation and Possible severe depression: Pt told one of her family members that she did not want to live any more. Her daughter reports that she saw broken figurines all over her house. She hit her head with some of the figurines. We consulted Psych. HLD: HTN: continue home meds Atorvastatin 40mg po q hs DM II: Continue accuchek, SSI and ADA diet DVT ppx: lovenox Nutrition: Will start D5 1/2NS at 50 cc/hr. Pt is NPO. Dispo: Pending hospital course. Will benefit from SNF placement. Versus hospice <Elizabeth Dozier - Last Filed: 05/19/24 14:15> Patient chart was reviewed and patient was seen and examined. SHAHAB history and physical reviewed as well. Agree with the assessment and plan. Patient presented with acute CVA with severe deficits including right-sided weakness and aphasia. Patient's family contemplating hospice care. They will have a meeting tonight and make a decision.. Most of the MDM was done by myself and plan of care was discussed with SHAHAB as well as the patient. Plan to discharge once we get confirmation from family on what how they want to proceed. <Pop Wharton - Last Filed: 05/20/24 03:57>
--- NOTE | 2024-05-20 06:08 | P.PN ---
Date of Service: 05/20/24 Subjective speech following, patient did not participate with speech therapy today Plan for family meeting tomorrow for discharge plan, PEG versus Review of Systems is unable to be obtained Physical Examination - Vital Signs Reviewed - Physical Exam General: Alert, In no apparent distress, drowsy, eyes open to verbal HEENT: Atraumatic, Normocephalic, PERRLA Neck: Supple, 2+ carotid pulse no bruit, JVD not distended Respiratory: Clear to auscultation bilaterally, Normal air movement, Diminished Cardiovascular: No edema, Normal pulses, Regular rate/rhythm Capillary refill: <2 Seconds Gastrointestinal: Normal bowel sounds, Soft and benign, Non-distended Musculoskeletal: No clubbing, No swelling, moderate generalized weakness Integumentary: No rashes, No breakdown, No significant lesion Neurological: Normal gait, Normal speech, moderate generalized weakness, LUE weakness Lymphatics: No axilla or inguinal lymphadenopathy ssessment And Plan - Plan multiple foci of subacute stroke -embolic stroke Dysphagia Per neurology extensive strokes in multiple territories, left and right and mid brain structures including the frontal lobe, inferior cerebellum are likely significant contributing factors to an instant multi-infarct dementia. AMS: CT head shows a region of hypodensity and loss of freeman-white matter differentiation involves the right temporoparietal region extending towards the sylvian fissure. MRI brain shows multiple foci of subacute stroke -embolic stroke. Consulted Neurology/ PT/OT. Will is discontinue permissive htn. Continue aspirin, plavix and statin. f/u Echo and carotid ultrasound. will do swallow eval before oral intake. Neurology talked to pt's family about getting PEG tube or comfort care. The family will let us know their decision on Saturday. Swallow eval-n.p.o. surgery consulted, pending PEG placement Fall: likely secondary to acute cva Head laceration: Due to fall. Will continue wound care. Will continue fall precaution. Hypokalemia: K is 3.5. Will monitor. Suicidal ideation and Possible severe depression: Pt told one of her family members that she did not want to live any more. Her daughter reports that she saw broken figurines all over her house. She hit her head with some of the figurines. We consulted Psych. HLD: HTN: continue home meds Atorvastatin 40mg po q hs DM II: Continue accuchek, SSI and ADA diet DVT ppx: lovenox Nutrition: Will start D5 1/2NS at 50 cc/hr. Pt is NPO. Dispo: Pending hospital course. Will benefit from SNF placement. Versus hospice
--- NOTE | 2024-05-20 07:04 | P.PN ---
Date of Service: 05/20/24 Subjective Resting quietly in bed, nonverbal with staff Plan to discharge home with hospice, family meeting with physician Review of Systems is unable to be obtained Physical Examination - Vital Signs Reviewed - Physical Exam General: Alert, In no apparent distress, drowsy, eyes open to verbal, afebrile HEENT: Atraumatic, Normocephalic, PERRLA Neck: Supple, 2+ carotid pulse no bruit, JVD not distended Respiratory: Clear to auscultation bilaterally, Normal air movement Cardiovascular: No edema, Normal pulses, Regular rate/rhythm Capillary refill: <2 Seconds Gastrointestinal: Normal bowel sounds, Soft and benign, Non-distended Musculoskeletal: No clubbing, No swelling, moderate generalized weakness Integumentary: No rashes, No breakdown, No significant lesion Neurological: Normal gait, Normal speech, moderate generalized weakness, LUE weakness Lymphatics: No axilla or inguinal lymphadenopathy ssessment And Plan - Plan multiple foci of subacute stroke -embolic stroke Dysphagia Per neurology extensive strokes in multiple territories, left and right and mid brain structures including the frontal lobe, inferior cerebellum are likely significant contributing factors to an instant multi-infarct dementia. AMS: CT head shows a region of hypodensity and loss of freeman-white matter differentiation involves the right temporoparietal region extending towards the sylvian fissure. MRI brain shows multiple foci of subacute stroke -embolic stroke. Consulted Neurology/ PT/OT. Will is discontinue permissive htn. Continue aspirin, plavix and statin. f/u Echo and carotid ultrasound. will do swallow eval before oral intake. Neurology talked to pt's family about getting PEG tube or comfort care. The family will let us know their decision on Saturday. Swallow eval-n.p.o. surgery consulted, pending PEG placement Fall: likely secondary to acute cva Head laceration: Due to fall. Will continue wound care. Will continue fall precaution. Hypokalemia: K is 3.5. Will monitor. Suicidal ideation and Possible severe depression: Pt told one of her family members that she did not want to live any more. Her daughter reports that she saw broken figurines all over her house. She hit her head with some of the figurines. We consulted Psych. HLD: HTN: continue home meds Atorvastatin 40mg po q hs DM II: Continue accuchek, SSI and ADA diet DVT ppx: lovenox Nutrition: Will start D5 1/2NS at 50 cc/hr. Pt is NPO. Dispo: Pending hospital course. Will benefit from SNF placement. Versus hospice
[2024-05-20 23:48] VITALS: O2SAT 96
--- NOTE | 2024-05-21 06:23 | P.DS ---
Admission Date: 05/12/24 Discharge Date: 05/21/24 Disposition: HOSPICE-MEDICAL FACILITY Discharge Condition: FAIR Reason for Admission: CVA/fall/AMS Brief History of Present Illness: Ms. Calderon is a 73-year-old female with past medical history of hypertension, hyperlipidemia, CAD, and diabetes. She lives alone and is quite deconditioned. She was seen in the ER in February for shingles, returned in March and was found to have choledocholithiasis and transferred for surgery, after her surgery she was again admitted on 03/31/2024 for generalized weakness, dizziness, decreased ability to ambulate. long-term for rehab was recommended but patient declined and was discharged home. She was brought to the emergency department today with altered mental status status post fall. Her family last saw her a couple of days ago and when checking on her today noted that she was on the floor of her apartment with blood in multiple areas around the room with a forehead laceration. Trauma workup in the emergency department shows a CT head with "no intracranial hemorrhage, mass effect, or edema. A new region of hypodensity and loss of freeman-white matter differentiation involves the right temporoparietal region extending towards the sylvian fissure. Stable small region of encephalomalacia in the left parietal lobe. No midline shift or abnormal fluid collection. The ventricles are normal in caliber and configuration for age. Basal cisterns are patent. Mastoid air cells and paranasal sinuses are clear. No acute skull fracture. Left temporal scalp swelling and hematoma." C-spine/chest/abdomen/pelvis with no significant acute findings. Vital signs stable. Ms. Calderon remains confused but awake. We will admit her for evaluation and treatment of a subacute ischemic stroke. MRI shows multiple foci of subacute stroke -embolic stroke - Physical Exam General: Alert, In no apparent distress, Oriented x1 HEENT: Atraumatic, Normocephalic Neck: Supple, 2+ carotid pulse no bruit Respiratory: Clear to auscultation bilaterally, Normal air movement Cardiovascular: No edema, Normal pulses, Regular rate/rhythm, Normal S1 S2 Capillary refill: <2 Seconds Gastrointestinal: Normal bowel sounds, Soft and benign, Non-distended Musculoskeletal: No clubbing, No swelling, No contractures Integumentary: No rashes, No breakdown, No significant lesion Neurological: Sensation intact Lymphatics: No axilla or inguinal lymphadenopathy Hospital Course: Ms. Calderon is a 73-year-old female with past medical history of hypertension, hyperlipidemia, CAD, and diabetes. presented to ER for evaluation of fall and altered mental status. Her family found pt on floor after checking on her. reported she was on the floor of her apartment with blood in multiple areas around the room with a forehead laceration. CT head with "no intracranial hemorrhage, mass effect, or edema. However A new region of hypodensity and loss of freeman-white matter differentiation involves the right temporoparietal region extending towards the sylvian fissure. Stable small region of encephalomalacia in the left parietal lobe. Left temporal scalp swelling and hematoma." She was admitted for evaluation and treatment of a substantial subacute ischemic stroke. MRI shows multiple foci of subacute stroke -embolic. she failed swallow study, poor po intake. Family opted to to discharge to SNF with hospice. Continue home medicines as previously prescribed GOAL: Clear understanding of disease process INSTRUCTIONS: Physician Discharge Instructions: -Discharged to [facility] facility with hospice -Please call Dr. Wharton at [phone] if any questions regarding hospital stay -Please call nursing station at [phone] if any nursing or medication questions Diet: ADA, low sodium Activity: Fall precautions Vital Signs/Physical Exam: Temp Pulse Resp BP Pulse Ox 97.6 F 97 H 18 140/89 96 05/21/24 00:00 05/21/24 00:00 05/21/24 00:00 05/21/24 00:00 05/21/24 00:00 Laboratory Data at Discharge: WBC 9.80 thou/uL (4.3-10.9) 05/19/24 05:52 Hgb 11.4 g/dL (12.0-15.0) L 05/19/24 05:52 Hct 33.9 % (36.0-45.0) L 05/19/24 05:52 Plt Count 293 thou/uL (152-406) 05/19/24 05:52 PT 12.9 SECONDS (9.4-12.5) H 05/13/24 06:37 INR 1.16 05/13/24 06:37 APTT 26.5 SECONDS (24.3-36.9) 05/12/24 12:00 Sodium 140 mEq/L (136-145) 05/19/24 05:52 Potassium 3.7 mEq/L (3.5-5.1) D 05/19/24 05:52 BUN 7 mg/dL (7-18) 05/19/24 05:52 Creatinine 0.67 mg/dL (0.55-1.02) 05/19/24 05:52 Glucose 172 mg/dL (74-106) H 05/19/24 05:52 Phosphorus 2.7 mg/dL (2.5-4.9) 05/18/24 01:27 Magnesium 1.8 mg/dL (1.6-2.4) 05/18/24 01:27 Total Bilirubin 0.7 mg/dL (0.2-1.0) 05/15/24 05:41 AST 13 U/L (15-37) L 05/15/24 05:41 ALT < 14 U/L (13-56) 05/15/24 05:41 Alkaline Phosphatase 57 U/L (45-117) D 05/15/24 05:41 Triglycerides 132 mg/dL (<150) 05/13/24 06:37 Cholesterol 194 mg/dL (<200) 05/13/24 06:37 HDL Cholesterol 36 mg/dL (40-60) L 05/13/24 06:37 Cholesterol/HDL Ratio 5.39 05/13/24 06:37 Home Medications: Aspirin Chewable [Aspirin Chewable*] 81 mg PO DAILY 07/27/19 Metformin HCl [Glucophage*] 850 mg PO BID 08/21/21 Atorvastatin Calcium [Lipitor] 40 mg PO BEDTIME #30 tab 06/29/22 Clopidogrel Bisulfate [Plavix*] 75 mg PO DAILY #30 tab 06/29/22 Cefdinir [Cefdinir*] 300 mg PO BID 04/01/24 Cetirizine HCl [All Day Allergy] 10 mg PO DAILY 04/01/24 Duloxetine [Cymbalta *] 20 mg PO DAILY 04/01/24 Gabapentin 100 mg PO TID PRN 04/01/24 Tramadol HCl [Ultram] 50 mg PO 1X PRN 04/01/24 Metoprolol Succinate [Toprol Xl*] 50 mg PO [id number] 60 Days #60 tab 04/03/24 Nifedipine Xl [Procardia XL*] 60 mg PO DAILY 60 Days #60 tab 04/03/24 Vitamin D [Drisdol*] 50,000 unit PO Q7D 49 Days #7 cap 04/03/24 Physician Discharge Instructions: OKAY TO DC TO HOSPICE CARE ONCE ACCEPTED TO [facility] UNDER RESPITE CARE. Activity: Fall precautions Followup: NONE,NONE [Primary Care Provider] - Time spent managing pt's care (in minutes): 45
[2024-05-21] MEDS: DIPHENHYDRAMINE 50 MG/ML VIAL IV SCH (11:30)
[2024-05-21 16:26] VITALS: BP 181/74; TEMP 97.9
--- NOTE | 2024-05-25 07:33 | CON ---
Date of Consultation: 05/14/2024 Reason For Consult: Evaluate the patient for possible suicidal attempt. History Of Present Illness: The patient was seen on telemetry edward. History was mostly obtained fro m the patient's daughter as the patient was not able to provide history due to severe degree of uncon sciousness. As per daughter, the patient was brought into the ER on May 12, 2024, after 2 days of n ot being able to reach her. She had called the local police for wellness check, and the patient was subsequently found unconscious on the floor of her room with laceration on her forehead while holding her purse in her hand, and that also was seen on the floor around where she fell. The patient's akua ghter states that prior to the incident the patient has been living alone and has had multiple ER vis its due to chronic pain, which she said was not being properly managed. The patient has been frustra zoë with pain and expressed depression, and No history of alcohol or substance abuse. No history of psychosis. Her memory has not been good lately, and stopped the services. The patient does not have history of bipolar disorder. No history of obsessive/compulsive disorder. Sh e stated the patient is , has 4 daughters. the patient has had previous history o f cerebrovascular accident, but did recover physically, but that has had contributed to her memory ch rach. On presentation in the ER, brain CT showed new region of thromboembolic stroke. Laboratory Data: Creatinine of 1.04, glucose of 167. PT of 15.1. Mental Status Examination: The patient is in net, lying in bed, also supplemental oxygen via nasal c annula. Wince to painful stimuli. No responses, no talking, no eye opening, hence was not able to p articipate with this examination. Assessment: Major depressive disorder, unspecified. Anxiety disorder, unspecified. Thromboembolic stroke. Cognitive disorder, unspecified. Recommendations: The patient is currently not taking orally, hence recommended the patien t does not require psychotropic medications at this time. We will recommend that Medical team contin ue to manage the patient's new-onset thromboembolic stroke and other medical needs. Psychiatry can b e re-consulted should need be. Discussed recommendation with treatment team. KO/MODL Voice ID: [id number] Report ID: [id number]
== END 2024-05-21 17:41 | disposition hospice, inpatient (51) | DRG 65 ==
LOC: ER 11:18 → ERHOLD 16:57 → 4TH 22:25
PROVIDERS: ADMIT Hospitalist; ATTEND Hospitalist
PROC: 02HV33Z Insertion of Infusion Device into Superior Vena Cava, Percutaneous Approach (ICD-10-PCS; principal; 2024-05-17)
DX: I63.9 Cerebral infarction, unspecified (principal); F03.93 Unspecified dementia, unspecified severity, with mood disturbance; R45.851 Suicidal ideations; G81.91 Hemiplegia, unspecified affecting right dominant side; F03.94 Unspecified dementia, unspecified severity, with anxiety; E11.9 Type 2 diabetes mellitus without complications; E87.6 Hypokalemia; E78.00 Pure hypercholesterolemia, unspecified; I10 Essential (primary) hypertension; I25.10 Atherosclerotic heart disease of native coronary artery without angina pectoris; S01.81XA Laceration without foreign body of other part of head, initial encounter; I25.2 Old myocardial infarction; R29.6 Repeated falls; R13.10 Dysphagia, unspecified; R47.01 Aphasia; Z51.5 Encounter for palliative care; Z88.5 Allergy status to narcotic agent; Z60.2 Problems related to living alone; Z95.1 Presence of aortocoronary bypass graft; Z91.81 History of falling; Z98.51 Tubal ligation status; Z79.82 Long term (current) use of aspirin; Z79.84 Long term (current) use of oral hypoglycemic drugs; Z79.02 Long term (current) use of antithrombotics/antiplatelets; Z90.49 Acquired absence of other specified parts of digestive tract; Z86.73 Personal history of transient ischemic attack (TIA), and cerebral infarction without residual deficits; Z79.899 Other long term (current) drug therapy; W18.30XA Fall on same level, unspecified, initial encounter; Y92.009 Unspecified place in unspecified non-institutional (private) residence as the place of occurrence of the external cause; Y93.9 Activity, unspecified
CPT/HCPCS: 36415; 51702; 70450; 70551; 71045; 71260; 72125; 72170; 74177; 74230; 80048; 80053; 80061; 81001; 82140; 82550; 82947; 83605; 83735; 83880; 84100; 84132; 84145; 84443; 84484; 85025; 85610; 85730; 86850; 86900; 86901; 92526; 92610; 92611; 93005; 93306; 93880; 96360; 97112; 97161; 99285; J0360; J0612; J1200; J1650; J3475; J3480; J7030; J7040; J7799; Q9967